=== PATIENT | female | born 1955 | race American Indian/Alaskan Native ===

== ENCOUNTER 2016-09-07 11:46 | Inpatient (IN) | payer MEDICARE ==
--- NOTE | 2016-09-07 12:24 | Emergency Department Report ---
Chief Complaint: Dyspnea/Respdistress Stated Complaint: FEVER/COUGH Time Seen by Provider: 09/07/16 12:14 - HPI History of Present Illness: 61-year-old female presents today with chest pain or shortness of breath 2 days. Positive for fever, MAXIMUM TEMPERATURE 102. Positive for nausea. Also complaining of dizziness. - ROS Review of Systems: Per HPI - Exam Vital Signs: Vital Signs 09/07/16 11:57 Temperature 98.3 F Pulse Rate 96 H Respiratory 20 Rate Blood Pressure 134/102 O2 Sat by Pulse 100 Oximetry Physical Exam: General: 61-year-old female in no acute distress. Well-developed, well- nourished. CV: Regular rate and rhythm. Lungs: Clear to auscultation bilaterally. MSE screening note: Focused history and physical exam performed. Due to findings the following was ordered: ED Disposition for MSE Condition: Stable
--- NOTE | 2016-09-07 12:45 | XRay Report ---
CHEST 2 VIEWS INDICATION: Dyspnea. COMPARISON: 08/19/2016 FINDINGS: PA and lateral chest radiographs demonstrate interval left upper extremity PICC removal. Stable cardiomediastinal silhouette, mild aortic knob calcifications and demineralized bones. Slight horizontal right mid lung atelectasis or fluid along the fissure now noted. No large pleural effusions or CHF. CONCLUSION: No significant acute chest process with interval left upper extremity PICC removal, as described. Thank you for the opportunity to participate in this patient's care.
[2016-09-07 13:37] LABS: Blood Urea Nitrogen 7 mg/dL (7-17); Calcium 9.1 mg/dL (8.4-10.2); Carbon Dioxide 20 mmol/L (22-30); Chloride 105.3 mmol/L (98-107); Glucose 126 mg/dL (65-100); Lipase 27 units/L (13-60); Sodium 139 mmol/L (137-145)
[2016-09-07 13:39] LABS: Anion Gap 18 mmol/L; Creatine Kinase MB 1.1 ng/mL (0.0-4.0)
[2016-09-07 13:40] LABS: Creatine Kinase 73 units/L (30-135)
[2016-09-07 13:47] LABS: Eosinophils % (Auto) 2.3 % (0.0-4.3); Hematocrit 34.9 % (30.3-42.9); Hemoglobin 11.1 gm/dl (10.1-14.3); Mean Corpuscular HGB Conc 32 % (30-34); Mean Corpuscular Hemoglobin 32 pg (28-32); Mean Corpuscular Volume 101 fl (79-97); Platelet Count 232 K/mm3 (140-440); Red Blood Count 3.48 M/mm3 (3.65-5.03); Red Cell Distribution Width 16.5 % (13.2-15.2); White Blood Count 3.9 K/mm3 (4.5-11.0)
[2016-09-07] MEDS ORDERED: TYLENOL PO ONE (22:20)
[2016-09-07] MEDS ORDERED: ATROVENT IH ONE (22:20)
[2016-09-07] MEDS ORDERED: PROVENTIL IH ONE (22:20)
--- NOTE | 2016-09-07 22:23 | Emergency Department Report ---
ED General Adult HPI - General Chief complaint: Dyspnea/Respdistress Stated complaint: FEVER/COUGH Time Seen by Provider: 09/07/16 12:14 Source: patient, EMS Mode of arrival: Ambulatory Limitations: Physical Limitation - History of Present Illness Initial comments: This is a 61-year-old female, whom I have evaluated in the past. Was recently admitted to the hospital for acute febrile illness. Had an extensive workup. Please see her recent discharge summary. Of note, patient had a PICC line which had subsequently been removed. She was continued on daptomycin until 09/03/2016. She is brought to the hospital by EMS. Patient complained of fever, cough for 24 hours. Also complained of pain upon inspiration. To me he also complains of abdominal pain, nausea, vomiting and diarrhea. Symptoms have been constant. They have no exacerbating or relieving factors. -: Gradual, days(s) Location: chest, abdomen Severity scale (0 -10): 8 Quality: aching Consistency: constant Improves with: none Worsens with: none Associated Symptoms: chest pain, cough, diaphoresis, fever/chills, loss of appetite, shortness of breath, weakness - Related Data Home Medications Medication Instructions Recorded Confirmed Last Taken Albuterol Sulfate [Albuterol 0.63% 3 ml IH BID 08/10/16 09/07/16 Unknown NEBS] Furosemide [Lasix TAB] 20 mg PO DAILY 08/10/16 09/07/16 Unknown Phenytoin (25 mg/ml) [Dilantin] 300 mg PO QHS 08/10/16 09/07/16 Unknown Raltegravir Potassium [Isentress] 400 mg PO BID 08/10/16 09/07/16 Unknown Lantus VIAL 9 units SQ 09/08/16 Unknown SEROquel 100 mg BID 09/08/16 09/08/16 Unknown Insulin Glargine [Lantus VIAL] 24 units SC HS 09/09/16 09/09/16 Unknown NovoLOG Flexpen 9 units SC DAILY 09/09/16 09/09/16 Unknown Allergies Allergy/AdvReac Type Severity Reaction Status Date / Time ibuprofen [From Motrin] Allergy Shortness Verified 08/10/16 03:25 of Breath shrimp Allergy Shortness Verified 09/07/16 11:57 of Breath tetracycline Allergy Shortness Verified 08/10/16 03:25 of Breath ED Review of Systems ROS: Stated complaint: FEVER/COUGH Other details as noted in HPI Constitutional: fever, malaise Eyes: denies: eye discharge Respiratory: cough, shortness of breath Cardiovascular: dyspnea on exertion Gastrointestinal: abdominal pain Genitourinary: as per HPI Musculoskeletal: back pain Skin: denies: lesions Neurological: weakness Psychiatric: anxiety ED Past Medical Hx - Past Medical History Hx Hypertension: No Hx Heart Attack/AMI: No Hx Congestive Heart Failure: No Hx Diabetes: No Hx Deep Vein Thrombosis: No Hx Pulmonary Embolism: No Hx GERD: No Hx Liver Disease: No Hx Renal Disease: No Hx Sickle Cell Disease: No Hx Arthritis: No Hx Headaches / Migraines: No Hx Seizures: No Hx Kidney Stones: No Hx Psychiatric Treatment: Yes (bipolar disorder; schziphornia) Hx Asthma: Yes Hx COPD: No Hx Tuberculosis: No Hx Dementia: No Hx HIV: Yes Additional medical history: CDIFF - Surgical History Hx Coronary Stent: No Hx Open Heart Surgery: No Hx Pacemaker: No Hx Internal Defibrillator: No Hx Cholecystectomy: No Hx Appendectomy: No Hx Breast Surgery: No Additional Surgical History: hysterectomy; rt arm skin graph - Social History Smoking Status: Never Smoker Substance Use Type: None - Medications Home Medications: Home Medications Medication Instructions Recorded Confirmed Last Taken Type Albuterol Sulfate [Albuterol 0.63% 3 ml IH BID 08/10/16 09/07/16 Unknown History NEBS] Furosemide [Lasix TAB] 20 mg PO DAILY 08/10/16 09/07/16 Unknown History Phenytoin (25 mg/ml) [Dilantin] 300 mg PO QHS 08/10/16 09/07/16 Unknown History Raltegravir Potassium [Isentress] 400 mg PO BID 08/10/16 09/07/16 Unknown History Lantus VIAL 9 units SQ 09/08/16 Unknown History SEROquel 100 mg BID 09/08/16 09/08/16 Unknown History Insulin Glargine [Lantus VIAL] 24 units SC HS 09/09/16 09/09/16 Unknown History NovoLOG Flexpen 9 units SC DAILY 09/09/16 09/09/16 Unknown History ED Physical Exam - General Limitations: Physical Limitation General appearance: alert, in no apparent distress - Head Head exam: Present: atraumatic, normocephalic - Eye Eye exam: Present: normal appearance, EOMI - ENT ENT exam: Present: normal exam, normal orophraynx, mucous membranes moist - Neck Neck exam: Present: normal inspection, full ROM. Absent: tenderness, meningismus - Respiratory Respiratory exam: Present: wheezes, rhonchi. Absent: respiratory distress - Cardiovascular Cardiovascular Exam: Present: regular rate, normal rhythm, normal heart sounds. Absent: bradycardia, tachycardia, irregular rhythm, systolic murmur, diastolic murmur, rubs, gallop - GI/Abdominal GI/Abdominal exam: Present: soft, tenderness, normal bowel sounds. Absent: distended, guarding, rebound, pulsatile mass - Rectal Rectal exam: Present: normal inspection, decreased rectal tone, heme (-) stool, other (escorted by grace Che) - External exam: Present: normal external exam - Extremities Exam Extremities exam: Present: normal inspection, full ROM, normal capillary refill , other (right groin site appears to be clean, without redness, pus, streaking or erythema.). Absent: tenderness, pedal edema, joint swelling, calf tenderness - Back Exam Back exam: Present: normal inspection, full ROM, paraspinal tenderness. Absent : tenderness - Neurological Exam Neurological exam: Present: alert, oriented X3, other (Extraocular movements intact. Tongue midline. No facial droop. Facial sensation intact to light touch in the V1, V2, V3 distribution bilaterally. 5 and 5 strength in 4 extremities.. Sensation is intact to light touch in 4 extremities.). Absent: motor sensory deficit - Psychiatric Psychiatric exam: Present: anxious - Skin Skin exam: Present: warm, dry, intact, normal color. Absent: rash ED Course Vital Signs 09/07/16 09/07/16 09/07/16 11:57 22:06 22:17 Temperature 98.3 F 100.4 F H Pulse Rate 96 H 104 H Pulse Rate [ Bilateral Throughout] Respiratory 20 14 Rate Respiratory Rate [Bilateral Throughout] Blood Pressure 134/102 Blood Pressure 98/67 [Right] O2 Sat by Pulse 100 95 100 Oximetry 09/07/16 09/07/16 09/08/16 23:00 23:30 00:00 Temperature Pulse Rate 93 H 93 H Pulse Rate [ 80 Bilateral Throughout] Respiratory 22 17 Rate Respiratory 16 Rate [Bilateral Throughout] Blood Pressure 79/54 127/79 Blood Pressure [Right] O2 Sat by Pulse 100 Oximetry 09/08/16 09/08/16 09/08/16 00:40 01:16 02:00 Temperature Pulse Rate 91 H Pulse Rate [ 92 H Bilateral Throughout] Respiratory 15 Rate Respiratory 18 Rate [Bilateral Throughout] Blood Pressure 127/79 127/79 Blood Pressure [Right] O2 Sat by Pulse 100 98 Oximetry 09/08/16 09/08/16 09/08/16 03:00 04:02 04:28 Temperature 98.2 F Pulse Rate 99 H 90 90 Pulse Rate [ Bilateral Throughout] Respiratory 18 15 15 Rate Respiratory Rate [Bilateral Throughout] Blood Pressure 127/79 127/79 Blood Pressure 141/78 [Right] O2 Sat by Pulse 96 94 99 Oximetry 09/08/16 04:30 Temperature Pulse Rate Pulse Rate [ Bilateral Throughout] Respiratory 17 Rate Respiratory Rate [Bilateral Throughout] Blood Pressure Blood Pressure [Right] O2 Sat by Pulse 99 Oximetry - Reevaluation(s) Reevaluation #1: 09/07/16 23:44 Differential diagnosis: Viremia, bacteremia, influenza, CHF, acute coronary syndrome, pulmonary embolus, colitis, diverticulitis Assessment and plan: 61-year-old female with cough, fever, abdominal pain. She had an extensive ID workup here recently. Initial cultures were considered contaminants. Source was determined to be unclear. Patient was treated with lineolezid, and discharged with daptomycin, and has had a subsequent removal of the PICC line. Of note, a C. difficile toxin assay was negative. We will obtain CAT scan of the chest, abdomen, pelvis. Cultures, urine cultures will be drawn. She will be loaded empirically with ceftriaxone. Influenza swab is pending. 09/07/16 23:51 Reevaluation #2: 09/08/16 02:[address] scan of chest negative. CT scan of abdomen and pelvis negative. Dr. Denise, the hospital physician, accepts patient. - EJ/Peripheral Line Neck L Time Out Performed: Yes Indications: nurses unable to establis Skin Cleansed in Sterile Fashion: Yes Size: 20 Dressing Placed: Tegaderm Patient Tolerated Procedure: well ED Medical Decision Making - Lab Data Result diagrams: 09/09/16 07:51 09/09/16 09:34 Vital Signs 09/07/16 09/07/16 11:57 22:17 Temperature 98.3 F 100.4 F H Pulse Rate 96 H 104 H Respiratory 20 14 Rate Blood Pressure 134/102 Blood Pressure 98/67 [Right] O2 Sat by Pulse 100 100 Oximetry Lab Results 09/07/16 09/07/16 09/07/16 Range/Units 12:57 12:57 12:57 WBC 3.9 L (4.5-11.0) K/mm3 RBC 3.48 L (3.65-5.03) M/mm3 Hgb 11.1 (10.1-14.3) gm/dl Hct 34.9 (30.3-42.9) % MCV 101 H (79-97) fl MCH 32 (28-32) pg MCHC 32 (30-34) % RDW 16.5 H (13.2-15.2) % Plt Count 232 (140-440) K/mm3 Lymph % (Auto) 47.3 H (13.4-35.0) % Hopkins % (Auto) 8.7 H (0.0-7.3) % Eos % (Auto) 2.3 (0.0-4.3) % Baso % (Auto) 1.0 (0.0-1.8) % Lymph # 1.9 (1.2-5.4) K/mm3 Hopkins # 0.3 (0.0-0.8) K/mm3 Eos # 0.1 (0.0-0.4) K/mm3 Baso # 0.0 (0.0-0.1) K/mm3 Seg Neutrophils % 40.7 (40.0-70.0) % Seg Neutrophils # 1.6 L (1.8-7.7) K/mm3 PT (12.2-14.9) Sec. INR (0.87-1.13) Sodium 139 (137-145) mmol/L Potassium 4.0 (3.6-5.0) mmol/L Chloride 105.3 (98-107) mmol/L Carbon Dioxide 20 L (22-30) mmol/L Anion Gap 18 mmol/L BUN 7 (7-17) mg/dL Creatinine 0.7 (0.7-1.2) mg/dL Estimated GFR > 60 ml/min BUN/Creatinine Ratio 10.00 % Glucose 126 H (65-100) mg/dL Lactic Acid (0.7-2.0) mmol/L Calcium 9.1 (8.4-10.2) mg/dL Total Creatine Kinase 73 (30-135) units/L CK-MB (CK-2) 1.1 (0.0-4.0) ng/mL CK-MB (CK-2) Rel Index 1.5 (0-4) Troponin T < 0.010 (0.00-0.029) ng/mL NT-Pro-B Natriuret Pep (0-900) pg/mL Lipase 27 (13-60) units/L Urine Color (Yellow) Urine Turbidity (Clear) Urine pH (5.0-7.0) Ur Specific Addison (1.003-1.030) Urine Protein (Negative) mg/dL Urine Glucose (UA) (Negative) mg/dL Urine Ketones (Negative) mg/dL Urine Blood (Negative) Urine Nitrite (Negative) Urine Bilirubin (Negative) Urine Urobilinogen (<2.0) mg/dL Ur Leukocyte Esterase (Negative) Urine WBC (Auto) (0.0-6.0) /HPF Urine RBC (Auto) (0.0-6.0) /HPF U Epithel Cells (Auto) (0-13.0) /HPF Urine Bacteria (Auto) (Negative) /HPF Urine Mucus /HPF Urine Opiates Screen Urine Methadone Screen Ur Barbiturates Screen Ur Phencyclidine Scrn Ur Amphetamines Screen U Benzodiazepines Scrn Urine Cocaine Screen U Marijuana (THC) Screen Drugs of Abuse Note 09/07/16 09/07/16 09/07/16 Range/Units 22:20 22:20 22:38 WBC (4.5-11.0) K/mm3 RBC (3.65-5.03) M/mm3 Hgb (10.1-14.3) gm/dl Hct (30.3-42.9) % MCV (79-97) fl MCH (28-32) pg MCHC (30-34) % RDW (13.2-15.2) % Plt Count (140-440) K/mm3 Lymph % (Auto) (13.4-35.0) % Hopkins % (Auto) (0.0-7.3) % Eos % (Auto) (0.0-4.3) % Baso % (Auto) (0.0-1.8) % Lymph # (1.2-5.4) K/mm3 Hopkins # (0.0-0.8) K/mm3 Eos # (0.0-0.4) K/mm3 Baso # (0.0-0.1) K/mm3 Seg Neutrophils % (40.0-70.0) % Seg Neutrophils # (1.8-7.7) K/mm3 PT 13.8 (12.2-14.9) Sec. INR 1.07 (0.87-1.13) Sodium (137-145) mmol/L Potassium (3.6-5.0) mmol/L Chloride (98-107) mmol/L Carbon Dioxide (22-30) mmol/L Anion Gap mmol/L BUN (7-17) mg/dL Creatinine (0.7-1.2) mg/dL Estimated GFR ml/min BUN/Creatinine Ratio % Glucose (65-100) mg/dL Lactic Acid (0.7-2.0) mmol/L Calcium (8.4-10.2) mg/dL Total Creatine Kinase (30-135) units/L CK-MB (CK-2) (0.0-4.0) ng/mL CK-MB (CK-2) Rel Index (0-4) Troponin T (0.00-0.029) ng/mL NT-Pro-B Natriuret Pep (0-900) pg/mL Lipase (13-60) units/L Urine Color Yellow (Yellow) Urine Turbidity Slightly-cloudy (Clear) Urine pH 5.0 (5.0-7.0) Ur Specific Addison 1.024 (1.003-1.030) Urine Protein 30 mg/dl (Negative) mg/dL Urine Glucose (UA) 50 (Negative) mg/dL Urine Ketones Tr (Negative) mg/dL Urine Blood Sm (Negative) Urine Nitrite Neg (Negative) Urine Bilirubin Neg (Negative) Urine Urobilinogen < 2.0 (<2.0) mg/dL Ur Leukocyte Esterase Lg (Negative) Urine WBC (Auto) 15.0 H (0.0-6.0) /HPF Urine RBC (Auto) 19.0 (0.0-6.0) /HPF U Epithel Cells (Auto) 18.0 H (0-13.0) /HPF Urine Bacteria (Auto) 1+ (Negative) /HPF Urine Mucus 3+ /HPF Urine Opiates Screen Presumptive negative Urine Methadone Screen Presumptive negative Ur Barbiturates Screen Presumptive negative Ur Phencyclidine Scrn Presumptive negative Ur Amphetamines Screen Presumptive negative U Benzodiazepines Scrn Presumptive negative Urine Cocaine Screen Presumptive negative U Marijuana (THC) Screen Presumptive negative Drugs of Abuse Note Disclamer 09/07/16 09/07/16 Range/Units 22:38 22:38 WBC (4.5-11.0) K/mm3 RBC (3.65-5.03) M/mm3 Hgb (10.1-14.3) gm/dl Hct (30.3-42.9) % MCV (79-97) fl MCH (28-32) pg MCHC (30-34) % RDW (13.2-15.2) % Plt Count (140-440) K/mm3 Lymph % (Auto) (13.4-35.0) % Hopkins % (Auto) (0.0-7.3) % Eos % (Auto) (0.0-4.3) % Baso % (Auto) (0.0-1.8) % Lymph # (1.2-5.4) K/mm3 Hopkins # (0.0-0.8) K/mm3 Eos # (0.0-0.4) K/mm3 Baso # (0.0-0.1) K/mm3 Seg Neutrophils % (40.0-70.0) % Seg Neutrophils # (1.8-7.7) K/mm3 PT (12.2-14.9) Sec. INR (0.87-1.13) Sodium (137-145) mmol/L Potassium (3.6-5.0) mmol/L Chloride (98-107) mmol/L Carbon Dioxide (22-30) mmol/L Anion Gap mmol/L BUN (7-17) mg/dL Creatinine (0.7-1.2) mg/dL Estimated GFR ml/min BUN/Creatinine Ratio % Glucose (65-100) mg/dL Lactic Acid 1.0 (0.7-2.0) mmol/L Calcium (8.4-10.2) mg/dL Total Creatine Kinase (30-135) units/L CK-MB (CK-2) (0.0-4.0) ng/mL CK-MB (CK-2) Rel Index (0-4) Troponin T (0.00-0.029) ng/mL NT-Pro-B Natriuret Pep 54.21 (0-900) pg/mL Lipase (13-60) units/L Urine Color (Yellow) Urine Turbidity (Clear) Urine pH (5.0-7.0) Ur Specific Addison (1.003-1.030) Urine Protein (Negative) mg/dL Urine Glucose (UA) (Negative) mg/dL Urine Ketones (Negative) mg/dL Urine Blood (Negative) Urine Nitrite (Negative) Urine Bilirubin (Negative) Urine Urobilinogen (<2.0) mg/dL Ur Leukocyte Esterase (Negative) Urine WBC (Auto) (0.0-6.0) /HPF Urine RBC (Auto) (0.0-6.0) /HPF U Epithel Cells (Auto) (0-13.0) /HPF Urine Bacteria (Auto) (Negative) /HPF Urine Mucus /HPF Urine Opiates Screen Urine Methadone Screen Ur Barbiturates Screen Ur Phencyclidine Scrn Ur Amphetamines Screen U Benzodiazepines Scrn Urine Cocaine Screen U Marijuana (THC) Screen Drugs of Abuse Note - EKG Data 09/07/16 23:47 normal sinus, 95 bpm, left axis deviation, borderline left ventricular hypertrophy, unspecific ST of the mallet. Not morphologically consistent with STEMI. Appears essentially unchanged compared to prior EKG. - Radiology Data Radiology results: report reviewed, image reviewed CT scan of the chest with IV contrast negative. CT scan of abdomen and pelvis with IV contrast negative. Critical care attestation.: If time is entered above; I have spent that time in minutes in the direct care of this critically ill patient, excluding procedure time. ED Disposition Clinical Impression: Acute febrile illness, Dyspnea Disposition: OP ADMITTED IP TO THIS HOSP Is pt being admited?: Yes Condition: Good
[2016-09-07 22:31] LABS: Urine Drugs of Abuse Note Disclamer
[2016-09-07 22:43] LABS: Bacteria,Urine 1+ /HPF (Negative); Bilirubin,Urine NEG (Negative); Blood,Urine SM (Negative); Ketones,Urine TR mg/dL (Negative); Leukocyte Esterase,Urine LG (Negative); Mucus,Urine 3+ /HPF; Nitrite,Urine NEG (Negative); Urobilinogen,Urine < 2.0 mg/dL (<2.0)
[2016-09-07 23:02] LABS: INR 1.07 (0.87-1.13)
[2016-09-07] MEDS ORDERED: ROCEPHIN/NS 1 GM/50 ML 50 ML IV ONE (23:51)
[2016-09-07] MEDS ORDERED: NACL ONE (23:51)
--- NOTE | 2016-09-08 00:01 | Admit Criteria Form ---
Admission Criteria Documentation: FEBRILE ILLNESS, WITHOUT FOCAL INFECTION Clinical Indications for Admission to Inpatient Care (Place 'X' for any and all applicable criteria): Admission is indicated for ANY ONE of the following (1)(2)(3): [ ] I. Bacteremia [ ]II. Suspected or identified specific infection requiring hospitalization (eg, meningitis, endocarditis) [ ]III. Hemodynamic instability [ ]IV. Altered mental status [ ]V. Failure or unavailability of outpatient antimicrobial treatment [ ]. Hypoxemia [ ]VII. Seizures [ ]VIII. High-risk febrile neutropenia [ ]IX. Need for parenteral antibiotic in patient who is likely to abuse vascular access device (eg, injection drug user) [A](7) [ ]X. Temperature greater than 104.9 degrees F (40.5 degrees C) (oral) [ X]XI. Inpatient admission required rather than observation care because of ANY ONE of the following: [ ]a) Specific infection identified that is too severe for outpatient treatment or observation care trial [ ]b) Metabolic disorder (eg, hypoglycemia, hyperglycemia, metabolic acidosis) that is severe or persistent [ ]c) Temperature greater than 103.1 degrees F (39.5 degrees C) ( oral) that is not responsive to observation care treatment [ ]d) IV fluid to replace significant ongoing (eg, for over 24 hours) losses (> 3 L/m2 per day) [ ]e) Supplemental oxygen or respiratory treatments for over 24 hours that is performable only in acute inpatient setting [ ]f) Parenteral nutrition regimen need that must be implemented on inpatient basis [ ]g) Strict or protective (eg, laminar flow) isolation [ X]h) Other condition, treatment or monitoring requiring inpatient admission Extended stay beyond goal length of stay may be needed for(1)(3) [ ]a) Sepsis or septic shock(22) [ ]b) Positive blood cultures [ ]c) Insufficient oral intake [ ]d) High-risk febrile neutropenia(29)(30) [ ]e) Continued fever and clinical instability [ ]f) Clinically active comorbid illness (e.g,heart failure, renal failure , diabetes) The original [facility] content created by [facility] [employer] has been revised. The portions of the content which have been revised are identified through the use of italic text or in bold, and [facility] [employer] has neither reviewed nor approved the modified material. All other unmodified content is copyright [facility]. Please see references footnoted in the original [facility] edition 2016 Admission Criteria Met: Yes
--- NOTE | 2016-09-08 02:29 | Cat Scan Report ---
FINAL REPORT PROCEDURE: CT ANGIO CHEST TECHNIQUE: Computerized tomographic angiography of the chest was performed after the IV injection of iodinated nonionic contrast including image processing. The image data was postprocessed using 2-dimensional multiplanar reformatted (MPR) and 3-dimensional (MIP and/or volume rendered) techniques. HISTORY: cough sob COMPARISON: No prior studies are available for comparison. FINDINGS: Heart and pericardium: Normal. Thoracic aorta: There is no thoracic aortic aneurysm or dissection.. Pulmonary vasculature: There is no pulmonary embolism.. Lymph nodes: No enlarged thoracic lymph nodes. Lungs: The lungs are clear. There are no infiltrates.. Pleural space: No effusion, thickening, or pneumothorax. Musculoskeletal structures: No significant abnormality. Upper abdominal structures: No significant abnormality. IMPRESSION: There is no thoracic aortic aneurysm or dissection.. There is no pulmonary embolism.. The lungs are clear. There are no infiltrates..
--- NOTE | 2016-09-08 02:32 | Cat Scan Report ---
FINAL REPORT PROCEDURE: CT ABDOMEN PELVIS W CON TECHNIQUE: Computerized axial tomography of the abdomen and pelvis was performed after the IV injection of iodinated nonionic contrast. HISTORY: abd pain COMPARISON: No prior studies are available for comparison. FINDINGS: Visualized lower thorax: No significant abnormality. Liver: Normal size and attenuation. Spleen: Normal size and attenuation. Gallbladder and biliary system: Normal. Pancreas: Normal. Adrenals: Normal. Kidneys: Normal. GI tract: There is a hiatal hernia. There is thickening of the stomach antrum which could be due to mild gastritis. There is no mass or obstruction. There is no bowel obstruction, colitis or enteritis. The appendix is normal.. Lymph nodes and mesentery: Normal. Vasculature: There is an IVC filter.. Bladder: Normal. Reproductive organs: There has been a hysterectomy. Peritoneum: There is no ascites or free air, abscess or adenopathy.. Musculoskeletal structures: No significant abnormality. Other: None. IMPRESSION: There is a hiatal hernia. There is thickening of the stomach antrum which could be due to mild gastritis. There is no mass or obstruction. There is no bowel obstruction, colitis or enteritis. The appendix is normal.. There is an IVC filter.. There has been a hysterectomy. There is no ascites or free air, abscess or adenopathy..
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
[2016-09-08] MEDS ORDERED: MILK OF MAGNESIA PO PRN (03:33)
[2016-09-08] MEDS ORDERED: DULCOLAX PR PRN (03:33)
[2016-09-08] MEDS ORDERED: LEVAQUIN 500MG/100ML 100 ML IV SCH (03:33)
[2016-09-08] MEDS ORDERED: LEVAQUIN 500MG/100ML 100 ML IV ONE (04:36)
[2016-09-08] MEDS: NACL 0.9% 1000 ML 1,000 ML IV SCH ×2 (06:00→22:55)
[2016-09-08] MEDS: FLAGYL 500 MG/100 ML 100 ML IV SCH ×2 (06:00→13:45)
[2016-09-08] MEDS ORDERED: ZOFRAN ONE (06:54)
--- NOTE | 2016-09-08 07:24 | XRay Report ---
AP CHEST: HISTORY: Dyspnea AP view of the chest demonstrates a normal mediastinal and cardiac contour with clear lungs and normal bony and soft tissue structures. IMPRESSION: No acute cardiopulmonary process. No significant change since the exam earlier today at 1238 hrs.
[2016-09-08] MEDS: LOVENOX SUB-Q SCH (10:02)
[2016-09-08 10:12] LABS: Creatine Kinase MB 1.1 ng/mL (0.0-4.0)
[2016-09-08 10:14] LABS: Creatine Kinase 64 units/L (30-135)
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
--- NOTE | 2016-09-08 17:30 | Gastroenterology Consultation ---
History of Present Illness - Reason for Consult Consult date: 09/08/16 Abd pain/diarrhea Requesting physician: JOSE D GLEASON - History of Present Illness Asked to see this 61yo woman with hx of HIV, for evaluation of abdominal discomfort, fever and diarrhea. I evaluated her for similar complaints in 2015 and opted for conservative mgmt at that time. CT A/P done revealed a hiatus hernia, but no bowel abnormalities. Abx have been stopped by ID. Currently, the pt describes mushy stools, not watery. No fevers here. No nausea/vomiting. Pt resides in psych facility. No CP/SOB. Past History Past Medical History: HIV/AIDS, seizures, other (asthma) Past Surgical History: No surgical history Social history: no significant social history Family history: no significant family history Medications and Allergies Allergies Allergy/AdvReac Type Severity Reaction Status Date / Time ibuprofen [From Motrin] Allergy Shortness Verified 08/10/16 03:25 of Breath shrimp Allergy Shortness Verified 09/07/16 11:57 of Breath tetracycline Allergy Shortness Verified 08/10/16 03:25 of Breath Home Medications Medication Instructions Recorded Confirmed Last Taken Type Albuterol Sulfate [Albuterol 0.63% 3 ml IH BID 08/10/16 09/07/16 Unknown History NEBS] Furosemide [Lasix TAB] 20 mg PO DAILY 08/10/16 09/07/16 Unknown History Phenytoin (25 mg/ml) [Dilantin] 300 mg PO QHS 08/10/16 09/07/16 Unknown History Raltegravir Potassium [Isentress] 400 mg PO BID 08/10/16 09/07/16 Unknown History Lantus VIAL 9 units SQ 09/08/16 Unknown History SEROquel 100 mg BID 09/08/16 09/08/16 Unknown History Active Meds: Active Medications Acetaminophen (Tylenol) 650 mg PO Q4H PRN PRN Reason: Pain MILD(1-3)/Fever >100.5/MOYER Acetaminophen/Hydrocodone Bitart (Dugger 5/325) 2 each PO Q6H PRN PRN Reason: Pain, Moderate (4-6) Albuterol (Proventil) 2.5 mg IH BIDRT [facility] Bisacodyl (Dulcolax) 10 mg [place] QDAY PRN PRN Reason: Constipation unrelieved by MOM Emtricitabine (Emtriva) 200 mg PO QDAY [facility] Enoxaparin Sodium (Lovenox) 40 mg SUB-Q QDAY [facility] Last Admin: 09/08/16 10:02 Dose: 40 mg Sodium Chloride (Nacl 0.9% 1000 Ml) 1,000 mls @ 75 mls/hr IV DIRECT [facility] Last Admin: 09/08/16 06:00 Dose: 75 mls/hr Magnesium Hydroxide (Milk Of Magnesia) 30 ml PO Q4H PRN PRN Reason: Constipation Morphine Sulfate (Morphine) 2 mg IV Q4H PRN PRN Reason: Pain, Moderate (4-6) Ondansetron HCl (Zofran) 4 mg IV Q8H PRN PRN Reason: N/V unrelieved by Reglan Phenytoin (Dilantin) 300 mg PO QHS [facility] Raltegravir (Isentress) 400 mg PO BID [facility] Tenofovir Disoproxil Fumarate (Viread) 300 mg PO QDAY [facility] Review of Systems - Review of Systems All systems: negative (abd discomfort, fever, loose stools) Exam - Constitutional Vital Signs: Temp Pulse Resp BP Pulse Ox 98 F 98 H 22 142/78 100 09/08/16 16:00 09/08/16 16:00 09/08/16 16:00 09/08/16 16:00 09/08/16 08:40 General appearance: no acute distress - EENT ENT: poor dentition - Neck Neck: supple - Respiratory Respiratory: bilateral: CTA - Cardiovascular Rhythm: regular Heart Sounds: Present: S1 & S2 Extremities: No edema - Gastrointestinal General gastrointestinal: Present: soft, tender (mild tenderness throughout), non-distended, normal bowel sounds - Neurologic Neurological: alert and oriented x3 - Labs CBC & Chem 7: 09/07/16 12:57 09/07/16 12:57 Lab Results: Laboratory Results - last 24 hr 09/08/16 09/08/16 09/08/16 03:51 09:33 09:33 Lactic Acid 1.0 1.2 Total Creatine Kinase 64 CK-MB (CK-2) 1.1 CK-MB (CK-2) Rel Index 1.7 Troponin T < 0.010 - Imaging CT Scan: report reviewed Assessment and Plan 61yo woman with hx of HIV a/w recurrent complaints of abd discomfort, diarrhea and subjective fevers. CT does not demonstrate any clear etiology and she has not had overt watery stools since being here. Rec: 1) Agree with conservative mgmt and supportive measures 2) Check stool for C. diff 3) No plans for colonoscopy at this time Thank you for allowing me to participate in the care of your patient. Please do not hesitate to contact me with any questions.
[2016-09-08] MEDS: PROVENTIL IH SCH ×2 (18:45→22:49)
[2016-09-08] MEDS: VIREAD PO SCH (20:49)
[2016-09-08] MEDS: EMTRIVA PO SCH (20:50)
[2016-09-08] MEDS ORDERED: NON-FORMULARY (Albuterol Sulfate [Albuterol 0.63% Nebs] 3 ML) IH SCH (22:00)
[2016-09-08] MEDS: ISENTRESS PO SCH (22:49)
[2016-09-08] MEDS: DILANTIN PO SCH (22:50)
[2016-09-09] MEDS: BENADRYL IV PRN ×2 (02:00→12:10)
[2016-09-09 08:33] LABS: Eosinophils % (Auto) 2.7 % (0.0-4.3); Hematocrit 32.1 % (30.3-42.9); Hemoglobin 10.6 gm/dl (10.1-14.3); Mean Corpuscular HGB Conc 33 % (30-34); Mean Corpuscular Hemoglobin 32 pg (28-32); Mean Corpuscular Volume 98 fl (79-97); Platelet Count 189 K/mm3 (140-440); Red Blood Count 3.29 M/mm3 (3.65-5.03); Red Cell Distribution Width 16.8 % (13.2-15.2); White Blood Count 3.2 K/mm3 (4.5-11.0)
[2016-09-09 08:35] LABS: Anion Gap TNR mmol/L; BUN/Creatinine Ratio TNR; Blood Urea Nitrogen TNR mg/dL (7-17); Calcium TNR mg/dL (8.4-10.2); Carbon Dioxide TNR mmol/L (22-30); Chloride TNR mmol/L (98-107); Glucose TNR mg/dL (65-100); Potassium TNR mmol/L (3.6-5.0); Sodium TNR mmol/L (137-145)
[2016-09-09] MEDS: PROVENTIL IH SCH ×3 (09:08→21:12)
--- NOTE | 2016-09-09 09:19 | Progress Note ---
Assessment and Plan Olga Ramirez is a 61 y/o woman with HIV infection (CD4 343) , hypertension, type 2 DM, CHF, asthma, and seizure disorder recently discharged from [facility] on daptomycin for a polymicrobial blood stream infection. She is now presenting with similar complaints including abdominal cramps, diarrhea, nausea, vomiting, fever, cough, shortness of breath and weakness. She said her temperature at home was 102 but here in the hospital she is afebrile. Ct scan of chest and abdomen without significant abnormality. Problem list: 1. Clinical picture of abdominal pain, fevers, nausea, vomiting and diarrhea complicating shortness of breath. Imaging study not supporting complaints. It remains unclear of the source of the problem. -abdominal pain is not worse but same as previous admission 2. Leukopenia, possibly related to underlying HIV 3. Diarrhea, stool for cdiff was negative on previous admission in addition she has not had frequent bowel movements here, after talking to her she has had only loose bowel movements. --stool cdiff negative on 09/08/16 --she said she had loose stool 4) HIV, do not know how well control patient is without updated lab work 5. Previously with Polymicrobial blood stream infection, MRSA, Staph epidermidis in one set, the second set with VRE, Staph epidermidis and diptheroids. Repeat blood cultures negative Plan: 1) would hold off antibiotics in this clinically stable, afebrile patient. 2) continue anti-retroviral therapy Truvad( tenofovir, emtriva), isentress 3) follow up cd4 and viral load 4) Patient was informed to let me know when she has a bowel movement to let me see it, would like to confirm the consistency Subjective Date of service: 09/09/16 Interval history: Patient is complaining of wheezing and shortness of breath, she said she has asthma and requesting albuterol Objective - Constitutional Vitals: Vital Signs Temp Pulse Resp BP Pulse Ox 98.4 F 84 20 113/74 100 09/09/16 04:41 09/09/16 04:41 09/09/16 04:41 09/09/16 04:41 09/08/16 20:40 Temperature -Last 24 Hours Temperature 98.4 F Temperature 98.4 F Temperature 98 F General appearance: Present: no acute distress, well-nourished, cachectic - EENT Eyes: PERRL, EOM intact, no scleral icterus, no conjunctival injection ENT: hearing intact, clear oral mucosa Ears: bilateral: normal - Neck Neck: supple, normal ROM - Respiratory Respiratory effort: normal Respiratory: bilateral: wheezing - Breasts Breasts: deferred - Cardiovascular Rhythm: regular Heart Sounds: Present: S1 & S2 Extremities: no ischemia, No edema - Gastrointestinal General gastrointestinal: Present: soft, non-tender, normal bowel sounds Rectal Exam: deferred - Genitourinary Female genitourinary: deferred - Integumentary Integumentary: clear, warm, dry - Musculoskeletal Musculoskeletal: strength equal bilaterally - Neurologic Neurologic: moves all extremities - Psychiatric Psychiatric: appropriate mood/affect, cooperative - Labs CBC & Chem 7: 09/09/16 07:51 09/09/16 07:51 Labs: Abnormal lab results 09/08/16 09/09/16 09/09/16 Range/Units 21:09 06:15 07:51 WBC 3.2 L (4.5-11.0) K/mm3 RBC 3.29 L (3.65-5.03) M/mm3 MCV 98 H D (79-97) fl RDW 16.8 H (13.2-15.2) % Lymph % (Auto) 50.9 H (13.4-35.0) % Weld % (Auto) 9.5 H (0.0-7.3) % Seg Neutrophils % 35.9 L (40.0-70.0) % Seg Neutrophils # 1.2 L (1.8-7.7) K/mm3 POC Glucose 167 H 172 H (70-105)
[2016-09-09 10:12] LABS: Anion Gap 16 mmol/L; Blood Urea Nitrogen 8 mg/dL (7-17); Calcium 8.1 mg/dL (8.4-10.2); Carbon Dioxide 20 mmol/L (22-30); Chloride 110.9 mmol/L (98-107); Glucose 150 mg/dL (65-100); Potassium 3.9 mmol/L (3.6-5.0); Sodium 143 mmol/L (137-145)
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
[2016-09-09] MEDS: VIREAD PO SCH (13:23)
[2016-09-09] MEDS: EMTRIVA PO SCH (13:23)
[2016-09-09] MEDS: ISENTRESS PO SCH (13:23)
[2016-09-09] MEDS: LOVENOX SUB-Q SCH (13:24)
[2016-09-09] MEDS: ROBITUSSIN AC PO PRN (14:05)
--- NOTE | 2016-09-09 15:19 | XRay Report ---
Chest: There is a left PICC line tip in the right atrium. The heart is slightly enlarged with tortuous aorta. No vascular congestion and clear lungs. The cardiopulmonary pattern is unchanged. T. September 07, 2016.
[2016-09-09] MEDS: ZOFRAN IV PRN (18:33)
[2016-09-09] MEDS: TYLENOL PO PRN (21:09)
[2016-09-09] MEDS: MORPHINE IV PRN (23:15)
[2016-09-10] MEDS: BENADRYL IV PRN ×2 (00:27→18:11)
[2016-09-10] MEDS: ISENTRESS PO SCH ×3 (00:27→23:00)
[2016-09-10] MEDS: DILANTIN PO SCH ×2 (00:27→23:00)
[2016-09-10] MEDS: ROBITUSSIN AC PO PRN ×2 (00:28→15:08)
[2016-09-10] MEDS: NORCO 5/325 PO PRN (04:00)
[2016-09-10] MEDS: TYLENOL PO PRN ×2 (05:42→14:19)
[2016-09-10] MEDS: NACL 0.9% 1000 ML 1,000 ML IV SCH (08:01)
[2016-09-10] MEDS: PROVENTIL IH SCH ×2 (08:21→21:59)
[2016-09-10] MEDS ORDERED: LEXISCAN IV ONE ×2 (09:53→09:56)
--- NOTE | 2016-09-10 10:14 | Progress Note ---
Assessment and Plan Antibiotics: none Previous Antibiotics: 1) metronidazole (09/08-09/08 2) levaquin 09/08-09/08 Olga Ramirez is a 61 y/o woman with HIV infection (CD4 343) , hypertension, type 2 DM, CHF, asthma, and seizure disorder recently discharged from [facility] on daptomycin for a polymicrobial blood stream infection. She is now presenting with similar complaints including abdominal cramps, diarrhea, nausea, vomiting, fever, cough, shortness of breath and weakness. She said her temperature at home was 102 but here in the hospital she is afebrile. Ct scan of chest and abdomen without significant abnormality. Problem list: 1. Clinical picture of abdominal pain, fevers, nausea, vomiting, diarrhea and shortness of breath. Imaging study not supporting complaints. It remains unclear of the source of the problem. -abdominal pain is not worse but same as previous admission --stool cdiff and culture negative --CT of chest without abnormalities, Ct scan of abdomen without bowel pathology -patient is now reporting loose stool, but she said it is better today. 2. Leukopenia, possibly related to underlying HIV 3. Diarrhea, stool for cdiff was negative on previous admission in addition she has not had frequent bowel movements here, after talking to her she has had only loose bowel movements. --stool cdiff negative on 09/08/16 --she said she had loose stool -only abnormality on CT scan is thickened stomach antrum 4) HIV, do not know how well control patient is without updated lab work, --CD4 and viral load ordered - continue anti-retroviral therapy 5. Previously with Polymicrobial blood stream infection, MRSA, Staph epidermidis in one set, the second set with VRE, Staph epidermidis and diptheroids. Repeat blood cultures negative -she was treated empirically on last hospitalization 6) fevers, unclear source, blood cultures negative, CT scan of chest and abdomen without abnormalities. --remains unclear of the source, no positive cultures but patient does have a cough and wheezing without pulmonary infiltrates. --temperature high of 103 7) leukopenia, wbc is 3.2 with ANC of 1.2, if this goes below 1.0 (1000) will need to place patient on neutropenic precaution Plan: 1) obtain blood cultures from picc line 2) continue anti-retroviral therapy Truvad( tenofovir, emtriva), isentress 3) follow up cd4 and viral load 4) start zosyn 4.5 gm iv Q8H 5) Neb treatment now 6) contact isolation for MRSA history Subjective Date of service: 09/10/16 Interval history: Patient is complaining of fevers, cough and wheezing. Objective - Constitutional Vitals: Selected Entries 08/20/16 09/08/16 09/09/16 07:51 08:40 04:41 Temperature 98.4 F Pulse Rate [ 84 Right Radial] Respiratory 20 Rate Blood Pressure 107/61 113/74 [Right Arm] Blood Pressure 97 87 Mean [Right Arm ] 09/09/16 09/10/16 09/10/16 23:00 04:00 04:59 Temperature 101.2 F H 103 F H Pulse Rate [ 112 H Right Radial] Respiratory Rate Blood Pressure 118/77 [Right Arm] Blood Pressure 90 Mean [Right Arm ] 09/10/16 05:42 Temperature Pulse Rate [ Right Radial] Respiratory 22 Rate Blood Pressure [Right Arm] Blood Pressure Mean [Right Arm ] General appearance: Present: mild distress, well-nourished, obese - EENT Eyes: PERRL, EOM intact, no scleral icterus, no conjunctival injection ENT: hearing intact, clear oral mucosa, poor dentition - Neck Neck: supple, normal ROM, no enlarged thyroid, no masses or JVD - Respiratory Respiratory: bilateral: rales, wheezing - Breasts Breasts: deferred - Cardiovascular Rhythm: regular Heart Sounds: Present: S1 & S2 Extremities: no ischemia, pulses intact - Gastrointestinal General gastrointestinal: Present: soft, non-tender, normal bowel sounds - Genitourinary Female genitourinary: deferred - Integumentary Integumentary: clear, warm, dry, no jaundice, no rash - Musculoskeletal Musculoskeletal: strength equal bilaterally - Neurologic Neurologic: moves all extremities - Psychiatric Psychiatric: appropriate mood/affect, cooperative - Labs CBC & Chem 7: 09/09/16 07:51 09/09/16 09:34 Labs: Microbiology 09/08/16 Unknown Stool Stool for WBCs - Final NEGATIVE 09/07/16 23:44 Nasopharyngeal Swab Influenza Types A,B Antigen (ANIBAL) - Final 09/07/16 22:20 Stool - Stool Aspirate Stool Occult Blood (ANIBAL) - Final 09/08/16 Unknown Stool Stool Culture - Preliminary 09/07/16 22:38 Peripheral/Venous Blood Culture - Preliminary NO GROWTH AFTER 24 HOURS 09/07/16 00:00 Peripheral/Venous Blood Culture - Preliminary NO GROWTH AFTER 24 HOURS 09/07/16 00:00 Peripheral/Venous Blood Culture - Preliminary Culture in Progress Laboratory Tests 09/07/16 09/09/16 09/09/16 22:20 07:51 09:34 WBC 3.2 L MCV 98 H D Plt Count 189 Creatinine 0.8 Estimated GFR > 60 Urine WBC (Auto) 15.0 H U Epithel Cells (Auto) 18.0 H
--- NOTE | 2016-09-10 11:06 | Progress Note ---
Assessment and Plan Assessment and plan: stool studies reviewed, C diff negative, Fecal leukocytes negative 1. Sepsis. continue sepsis pathway. We will follow up blood and urine cultures. ID input appreciated, continue current abx and fup blood cx from . 2. Diarrhea. appears to be acute Gastroenteritis, ID and GI input appreciated 3. HIV/AIDS. . T-cell count 343. Continue medications per day. 4. Chest pain, has now resolved; EKG and serial trops negative, appears to be from GERD, continue PPI, stress test was negative. History Interval history: continues to have watery diarrhea, frequency has reduced Hospitalist Physical - Physical exam Narrative exam: General: Patient appears well in no distress HEENT: MMM, EOMI cardiac: S1-S2 heard lungs: clear to auscultation, abdomen: soft, nontender, nondistended bowel sounds positive extremities: no edema clubbing or cyanosis Skin: no rash or lesion Neuro: no focal deficit Psych: appropriate behavior and mood, cognition intact - Constitutional Vitals: Temp Pulse Resp BP Pulse Ox 103 F H 112 H 22 118/77 98 09/10/16 04:00 09/10/16 04:59 09/10/16 05:42 09/10/16 04:00 09/10/16 04:59 General appearance: Present: no acute distress, well-nourished, cachectic Results - Labs CBC & Chem 7: 09/09/16 07:51 09/09/16 09:34 Labs: Laboratory Last Values WBC 3.2 K/mm3 (4.5-11.0) L 09/09/16 07:51 RBC 3.29 M/mm3 (3.65-5.03) L 09/09/16 07:51 Hgb 10.6 gm/dl (10.1-14.3) 09/09/16 07:51 Hct 32.1 % (30.3-42.9) 09/09/16 07:51 MCV 98 fl (79-97) H D 09/09/16 07:51 MCH 32 pg (28-32) 09/09/16 07:51 MCHC 33 % (30-34) 09/09/16 07:51 RDW 16.8 % (13.2-15.2) H 09/09/16 07:51 Plt Count 189 K/mm3 (140-440) 09/09/16 07:51 Lymph % (Auto) 50.9 % (13.4-35.0) H 09/09/16 07:51 [place] % (Auto) 9.5 % (0.0-7.3) H 09/09/16 07:51 Eos % (Auto) 2.7 % (0.0-4.3) 09/09/16 07:51 Baso % (Auto) 1.0 % (0.0-1.8) 09/09/16 07:51 Lymph # 1.6 K/mm3 (1.2-5.4) 09/09/16 07:51 [place] # 0.3 K/mm3 (0.0-0.8) 09/09/16 07:51 Eos # 0.1 K/mm3 (0.0-0.4) 09/09/16 07:51 Baso # 0.0 K/mm3 (0.0-0.1) 09/09/16 07:51 Seg Neutrophils % 35.9 % (40.0-70.0) L 09/09/16 07:51 Seg Neutrophils # 1.2 K/mm3 (1.8-7.7) L 09/09/16 07:51 PT 13.8 Sec. (12.2-14.9) 09/07/16 22:38 INR 1.07 (0.87-1.13) 09/07/16 22:38 Sodium 143 mmol/L (137-145) 09/09/16 09:34 Potassium 3.9 mmol/L (3.6-5.0) 09/09/16 09:34 Chloride 110.9 mmol/L (98-107) H 09/09/16 09:34 Carbon Dioxide 20 mmol/L (22-30) L 09/09/16 09:34 Anion Gap 16 mmol/L 09/09/16 09:34 BUN 8 mg/dL (7-17) 09/09/16 09:34 Creatinine 0.8 mg/dL (0.7-1.2) 09/09/16 09:34 Estimated GFR > 60 ml/min 09/09/16 09:34 BUN/Creatinine Ratio 10.00 % 09/09/16 09:34 Glucose 150 mg/dL (65-100) H 09/09/16 09:34 POC Glucose 141 (70-105) H 09/09/16 21:09 Lactic Acid 1.2 mmol/L (0.7-2.0) 09/08/16 09:33 Calcium 8.1 mg/dL (8.4-10.2) L 09/09/16 09:34 Total Creatine Kinase 64 units/L (30-135) 09/08/16 09:33 CK-MB (CK-2) 1.1 ng/mL (0.0-4.0) 09/08/16 09:33 CK-MB (CK-2) Rel Index 1.7 (0-4) 09/08/16 09:33 Troponin T < 0.010 ng/mL (0.00-0.029) 09/08/16 09:33 NT-Pro-B Natriuret Pep 54.21 pg/mL (0-900) 09/07/16 22:38 Lipase 27 units/L (13-60) 09/07/16 12:57 Urine Color Yellow (Yellow) 09/07/16 22:20 Urine Turbidity Slightly-cloudy (Clear) 09/07/16 22:20 Urine pH 5.0 (5.0-7.0) 09/07/16 22:20 Ur Specific [place] 1.024 (1.003-1.030) 09/07/16 22:20 Urine Protein 30 mg/dl mg/dL (Negative) 09/07/16 22:20 Urine Glucose (UA) 50 mg/dL (Negative) 09/07/16 22:20 Urine Ketones Tr mg/dL (Negative) 09/07/16 22:20 Urine Blood Sm (Negative) 09/07/16 22:20 Urine Nitrite Neg (Negative) 09/07/16 22:20 Urine Bilirubin Neg (Negative) 09/07/16 22:20 Urine Urobilinogen < 2.0 mg/dL (<2.0) 09/07/16 22:20 Ur Leukocyte Esterase Lg (Negative) 09/07/16 22:20 Urine WBC (Auto) 15.0 /HPF (0.0-6.0) H 09/07/16 22:20 Urine RBC (Auto) 19.0 /HPF (0.0-6.0) 09/07/16 22:20 U Epithel Cells (Auto) 18.0 /HPF (0-13.0) H 09/07/16 22:20 Urine Bacteria (Auto) 1+ /HPF (Negative) 09/07/16 22:20 Urine Mucus 3+ /HPF 09/07/16 22:20 Urine Opiates Screen Presumptive negative 09/07/16 22:20 Urine Methadone Screen Presumptive negative 09/07/16 22:20 Ur Barbiturates Screen Presumptive negative 09/07/16 22:20 Ur Phencyclidine Scrn Presumptive negative 09/07/16 22:20 Ur Amphetamines Screen Presumptive negative 09/07/16 22:20 U Benzodiazepines Scrn Presumptive negative 09/07/16 22:20 Urine Cocaine Screen Presumptive negative 09/07/16 22:20 U Marijuana (THC) Screen Presumptive negative 09/07/16 22:20 Drugs of Abuse Note Disclamer 09/07/16 22:20
--- NOTE | 2016-09-10 12:25 | Gastroenterology Progress Note ---
<ALE RUIZ - Last Filed: 09/10/16 14:04> Assessment and Plan 61yo woman with hx of HIV a/w recurrent complaints of abd discomfort, diarrhea and fevers. CT does not demonstrate any clear etiology. She reports 3 episodes of "loose" stool today. She is also being seen by ID. Rec: 1) Agree with conservative mgmt and supportive measures 2) stool for C diff negative, fecal WBC negative, stool culture negative. 3) ID following. Subjective Date of service: 09/10/16 Interval history: Patient remains febrile. State she has had 3 "loose" stools today. Objective - Constitutional Vitals: Temp Pulse Resp BP Pulse Ox 103 F H 112 H 22 118/77 98 09/10/16 04:00 09/10/16 04:59 09/10/16 05:42 09/10/16 04:00 09/10/16 04:59 General appearance: mild distress, other (tremor noted) - EENT Eyes: EOM intact ENT: hearing intact - Cardiovascular Rhythm: other (taachycardia) - Gastrointestinal General gastrointestinal: Present: soft (TTP throughout), tender - Labs CBC & Chem 7: 09/09/16 07:51 09/09/16 09:34 Labs: Laboratory Results - last 24 hr 09/09/16 21:09 POC Glucose 141 H <FABI BETTS - Last Filed: 09/10/16 16:09> Subjective Interval history: GI Attending: I have performed a face to face evaluation on Ms. Ramirez and agree with the above note. Pt spiked temp today; source unclear. Mentions coughing, but CXR yesterday revealed no infiltrates. ID to f/u today. Cont supportive GI measures. No plans for endoscopic procedures at this point. Objective - Constitutional Vitals: Temp Pulse Resp BP Pulse Ox 102.9 F H 114 H 20 130/67 96 09/10/16 12:55 09/10/16 12:55 09/10/16 12:55 09/10/16 12:55 09/10/16 07:40 - Labs CBC & Chem 7: 09/09/16 07:51 09/09/16 09:34 Labs: Laboratory Results - last 24 hr 09/09/16 09/10/16 21:09 12:07 POC Glucose 141 H 187 H
[2016-09-10] MEDS: LOVENOX SUB-Q SCH (14:17)
[2016-09-10] MEDS: EMTRIVA PO SCH (14:18)
[2016-09-10] MEDS: VIREAD PO SCH (14:18)
[2016-09-10] MEDS: ZOFRAN IV PRN ×2 (14:20→21:45)
[2016-09-10] MEDS: DUONEB 0.5 MG-3 MG/3 ML SOLN IH SCH ×2 (17:24→21:15)
[2016-09-10] MEDS ORDERED: VANCOMYCIN VIAL 2,000 MG in NACL 0.9% 500 ML 500 ML IV ONE (18:00)
[2016-09-10] MEDS ORDERED: VANCOMYCIN VIAL 2,000 MG in NACL 0.9% 500 ML 500 ML IV SCH (18:00)
[2016-09-10] MEDS ORDERED: ZOSYN/NS 4.5GM/100ML 100 ML IV SCH (18:00)
[2016-09-10] MEDS ORDERED: VANCOMYCIN PHARMACY TO DOSE IV SCH (18:00)
[2016-09-10] MEDS: DELTASONE PO SCH (18:11)
[2016-09-11] MEDS: TYLENOL PO PRN ×2 (00:45→11:56)
--- NOTE | 2016-09-11 01:13 | Treadmill Report ---
PROCEDURE: Single-isotope dual study myocardial perfusion scan. REFERRING PHYSICIAN: Mahesh Mckay MD DESCRIPTION OF PROCEDURE: The patient received 10 mCi of technetium 99m Myoview intravenously under resting condition. Resting myocardial perfusion scan was done. Subsequently, the patient underwent Lexiscan stress test as per the protocol.During the stress test, patient received 28 mCi of technetium 99m Myoview intravenously.After 30 to 60 minutes, post stress images were done. Computerized reconstruction of images was done. The post-stress test images revealed uniform distribution of the radiopharmaceutical in the left ventricular myocardium. Cinematic display of the gated study did not reveal any wall motion abnormality. The left ventricular ejection fraction was normal and was calculated to be 71%. The resting images were also normal. CONCLUSION: 1. No perfusion abnormality of the left ventricular myocardium was demonstrated in the resting as well as stress images obtained after the patient underwent Lexiscan stress test. 2. No wall motion abnormality. 3. Normal left ventricular ejection fraction of 71%. [facility]# [id number] JAMIN/WENDY SANCHEZ
[2016-09-11] MEDS: BENADRYL IV PRN ×4 (06:23→21:47)
[2016-09-11] MEDS: ZOFRAN IV PRN ×2 (06:24→14:28)
[2016-09-11] MEDS: DUONEB 0.5 MG-3 MG/3 ML SOLN IH SCH ×4 (08:10→22:25)
--- NOTE | 2016-09-11 08:30 | Gastroenterology Progress Note ---
Assessment and Plan 1) Abdominal pain 2) Loose BM's 3) Fevers -Pt started on Zosyn yesterday -No further GI w/u planned at this time Please re-call with questions. Thank you! Subjective Date of service: 09/11/16 Principal diagnosis: Abd pain, loose BM's, fever Interval history: Pt seen/examined today. More audible wheezing today. No other acute overnight events. Objective - Constitutional Vitals: Temp Pulse Resp BP Pulse Ox 98.9 F 93 H 20 130/70 98 09/11/16 04:05 09/11/16 04:05 09/11/16 04:05 09/11/16 04:05 09/11/16 04:05 General appearance: no acute distress - Neck Neck: supple - Respiratory Respiratory: bilateral: wheezing - Cardiovascular Rhythm: regular Heart Sounds: Present: S1 & S2 - Extremities Extremities: No edema - Gastrointestinal General gastrointestinal: Present: soft, tender, non-distended, normal bowel sounds - Labs CBC & Chem 7: 09/09/16 07:51 09/09/16 09:34 Labs: Laboratory Results - last 24 hr 09/10/16 09/10/16 09/11/16 12:07 17:10 06:31 POC Glucose 187 H 153 H 109 H
[2016-09-11] MEDS: LOVENOX SUB-Q SCH (10:48)
[2016-09-11] MEDS: DELTASONE PO SCH (10:49)
[2016-09-11] MEDS: EMTRIVA PO SCH (10:49)
[2016-09-11] MEDS: VIREAD PO SCH (10:49)
[2016-09-11] MEDS: ISENTRESS PO SCH ×2 (10:50→21:47)
[2016-09-11] MEDS: ROBITUSSIN AC PO PRN ×2 (10:57→17:56)
[2016-09-11] MEDS: PROVENTIL IH SCH (11:34)
[2016-09-11] MEDS ORDERED: CATHFLO IV ONE ×2 (11:40→15:00)
--- NOTE | 2016-09-11 12:22 | Progress Note ---
Assessment and Plan Current antibiotics: Zosyn 4.5 g IV q8h 09/10 --> Previous Antibiotics: Metronidazole 09/08 Levaquin 09/08 ASSESSMENT: Olga Ramirez is a 61 y/o woman with HIV infection (CD4 343) , hypertension, type 2 DM, CHF, asthma, and seizure disorder recently discharged from [facility] on daptomycin for a polymicrobial blood stream infection. She is now presenting with similar complaints including abdominal cramps, diarrhea, nausea, vomiting, fever, cough, shortness of breath and weakness. She said her temperature at home was 102 but here in the hospital she is afebrile. Problem list: 1. Clinical picture of abdominal pain, fevers, nausea, vomiting, diarrhea and shortness of breath. -abdominal pain is not worse but same as previous admission -stool cdiff and culture negative -CT of chest without abnormalities, CT scan of abdomen without bowel pathology -patient is now reporting loose stool, but she said it is better today. 2. Leukopenia -Suspect related to underlying HIV 3. Compaints of diarrhea -None substantiated -Stool cdiff negative on 09/08/16 4. HIV -CD4 and viral load pending -On anti-retroviral therapy 5. Status post polymicrobial blood stream infection -MRSA & Staph epidermidis in one set -The second set with VRE, Staph epidermidis and diptheroids -Repeat blood cultures negative -Finished course of antibiotics 6. Fevers -Unclear source -Blood cultures negative, CT scan of chest and abdomen without abnormalities. Temperature high of 103 on 09/10. Afebrile so far today 7. Leukopenia -WBC 3.2 with ANC of 1.2 PLAN: 1. Await results of 09/10 blood cultures 2. Continue anti-retroviral therapy Truvada( tenofovir, emtriva) and Isentress 3.Await results of CD4 and HIV viral load 4. Continue Zosyn 4.5 grams IV q8h pending repeat culture results 6. Continue contact isolation for MRSA history Loco Jain MD [facility] Office: [phone] Subjective Date of service: 09/11/16 Principal diagnosis: Abd pain, loose BM's, fever Objective - Constitutional Vitals: Vital Signs Temp Pulse Resp BP Pulse Ox 99.1 F 80 20 110/66 100 09/11/16 07:15 09/11/16 08:20 09/11/16 08:20 09/11/16 07:15 09/11/16 07:15 Temperature -Last 24 Hours Temperature 99.1 F Temperature 98.9 F Temperature 100.6 F Temperature 102.9 F - Labs CBC & Chem 7: 09/09/16 07:51 09/09/16 09:34 Labs: Abnormal lab results Microbiology 09/10/16 07:55 Peripheral/Venous Blood Culture - Preliminary Culture in Progress 09/10/16 19:00 Peripheral/Venous Blood Culture - Preliminary Culture in Progress 09/07/16 22:38 Peripheral/Venous Blood Culture - Preliminary NO GROWTH AFTER 72 HOURS 09/07/16 00:00 Peripheral/Venous Blood Culture - Preliminary NO GROWTH AFTER 72 HOURS 09/08/16 Unknown Stool Stool Culture - No enteric pathogens 09/08/16 Unknown Stool C. difficile DNA Amplification - Negative 09/08/16 Unknown Stool Stool for WBCs - Final NEGATIVE 09/07/16 23:44 Nasopharyngeal Swab Influenza Types A,B Antigen (ANIBAL) - Negative Imagin/18: CXR: No acute infiltrates
[2016-09-11] MEDS: NACL 0.9% 1000 ML 1,000 ML IV SCH (13:07)
[2016-09-11] MEDS: ZOSYN/NS 4.5GM/100ML 100 ML IV SCH ×2 (13:08→18:52)
--- NOTE | 2016-09-11 13:59 | Progress Note ---
Assessment and Plan Assessment and plan: stool studies reviewed, C diff negative, Fecal leukocytes negative 1. Sepsis. continue sepsis pathway. We will follow up blood and urine cultures. ID input appreciated, continue current abx and fup blood cx from . 2. Diarrhea. appears to be acute Gastroenteritis, ID and GI input appreciated 3. HIV/AIDS. . T-cell count 343. Continue medications per day. 4. Chest pain, has now resolved; EKG and serial trops negative, appears to be from GERD, continue PPI, stress test was negative. History Interval history: continues to have watery diarrhea, frequency has reduced Hospitalist Physical - Physical exam Narrative exam: General: Patient appears well in no distress HEENT: MMM, EOMI cardiac: S1-S2 heard lungs: clear to auscultation, abdomen: soft, nontender, nondistended bowel sounds positive extremities: no edema clubbing or cyanosis Skin: no rash or lesion Neuro: no focal deficit Psych: appropriate behavior and mood, cognition intact - Constitutional Vitals: Temp Pulse Resp BP Pulse Ox 99.1 F 129 H 20 110/66 100 09/11/16 07:15 09/11/16 12:38 09/11/16 12:38 09/11/16 07:15 09/11/16 07:15 General appearance: Present: no acute distress, well-nourished, cachectic Results - Labs CBC & Chem 7: 09/09/16 07:51 09/09/16 09:34 Labs: Laboratory Last Values WBC 3.2 K/mm3 (4.5-11.0) L 09/09/16 07:51 RBC 3.29 M/mm3 (3.65-5.03) L 09/09/16 07:51 Hgb 10.6 gm/dl (10.1-14.3) 09/09/16 07:51 Hct 32.1 % (30.3-42.9) 09/09/16 07:51 MCV 98 fl (79-97) H D 09/09/16 07:51 MCH 32 pg (28-32) 09/09/16 07:51 MCHC 33 % (30-34) 09/09/16 07:51 RDW 16.8 % (13.2-15.2) H 09/09/16 07:51 Plt Count 189 K/mm3 (140-440) 09/09/16 07:51 Lymph % (Auto) 50.9 % (13.4-35.0) H 09/09/16 07:51 [place] % (Auto) 9.5 % (0.0-7.3) H 09/09/16 07:51 Eos % (Auto) 2.7 % (0.0-4.3) 09/09/16 07:51 Baso % (Auto) 1.0 % (0.0-1.8) 09/09/16 07:51 Lymph # 1.6 K/mm3 (1.2-5.4) 09/09/16 07:51 [place] # 0.3 K/mm3 (0.0-0.8) 09/09/16 07:51 Eos # 0.1 K/mm3 (0.0-0.4) 09/09/16 07:51 Baso # 0.0 K/mm3 (0.0-0.1) 09/09/16 07:51 Seg Neutrophils % 35.9 % (40.0-70.0) L 09/09/16 07:51 Seg Neutrophils # 1.2 K/mm3 (1.8-7.7) L 09/09/16 07:51 PT 13.8 Sec. (12.2-14.9) 09/07/16 22:38 INR 1.07 (0.87-1.13) 09/07/16 22:38 Sodium 143 mmol/L (137-145) 09/09/16 09:34 Potassium 3.9 mmol/L (3.6-5.0) 09/09/16 09:34 Chloride 110.9 mmol/L (98-107) H 09/09/16 09:34 Carbon Dioxide 20 mmol/L (22-30) L 09/09/16 09:34 Anion Gap 16 mmol/L 09/09/16 09:34 BUN 8 mg/dL (7-17) 09/09/16 09:34 Creatinine 0.8 mg/dL (0.7-1.2) 09/09/16 09:34 Estimated GFR > 60 ml/min 09/09/16 09:34 BUN/Creatinine Ratio 10.00 % 09/09/16 09:34 Glucose 150 mg/dL (65-100) H 09/09/16 09:34 POC Glucose 115 (70-105) H 09/11/16 12:11 Lactic Acid 1.2 mmol/L (0.7-2.0) 09/08/16 09:33 Calcium 8.1 mg/dL (8.4-10.2) L 09/09/16 09:34 Total Creatine Kinase 64 units/L (30-135) 09/08/16 09:33 CK-MB (CK-2) 1.1 ng/mL (0.0-4.0) 09/08/16 09:33 CK-MB (CK-2) Rel Index 1.7 (0-4) 09/08/16 09:33 Troponin T < 0.010 ng/mL (0.00-0.029) 09/08/16 09:33 NT-Pro-B Natriuret Pep 54.21 pg/mL (0-900) 09/07/16 22:38 Lipase 27 units/L (13-60) 09/07/16 12:57 Urine Color Yellow (Yellow) 09/07/16 22:20 Urine Turbidity Slightly-cloudy (Clear) 09/07/16 22:20 Urine pH 5.0 (5.0-7.0) 09/07/16 22:20 Ur Specific [place] 1.024 (1.003-1.030) 09/07/16 22:20 Urine Protein 30 mg/dl mg/dL (Negative) 09/07/16 22:20 Urine Glucose (UA) 50 mg/dL (Negative) 09/07/16 22:20 Urine Ketones Tr mg/dL (Negative) 09/07/16 22:20 Urine Blood Sm (Negative) 09/07/16 22:20 Urine Nitrite Neg (Negative) 09/07/16 22:20 Urine Bilirubin Neg (Negative) 09/07/16 22:20 Urine Urobilinogen < 2.0 mg/dL (<2.0) 09/07/16 22:20 Ur Leukocyte Esterase Lg (Negative) 09/07/16 22:20 Urine WBC (Auto) 15.0 /HPF (0.0-6.0) H 09/07/16 22:20 Urine RBC (Auto) 19.0 /HPF (0.0-6.0) 09/07/16 22:20 U Epithel Cells (Auto) 18.0 /HPF (0-13.0) H 09/07/16 22:20 Urine Bacteria (Auto) 1+ /HPF (Negative) 09/07/16 22:20 Urine Mucus 3+ /HPF 09/07/16 22:20 Urine Opiates Screen Presumptive negative 09/07/16 22:20 Urine Methadone Screen Presumptive negative 09/07/16 22:20 Ur Barbiturates Screen Presumptive negative 09/07/16 22:20 Ur Phencyclidine Scrn Presumptive negative 09/07/16 22:20 Ur Amphetamines Screen Presumptive negative 09/07/16 22:20 U Benzodiazepines Scrn Presumptive negative 09/07/16 22:20 Urine Cocaine Screen Presumptive negative 09/07/16 22:20 U Marijuana (THC) Screen Presumptive negative 09/07/16 22:20 Drugs of Abuse Note Disclamer 09/07/16 22:20
[2016-09-11] MEDS ORDERED: WATER FOR INJ (PF) 10 ML ONE (14:12)
[2016-09-11] MEDS: DILANTIN PO SCH (21:41)
[2016-09-12] MEDS: ZOFRAN IV PRN ×3 (01:45→17:15)
[2016-09-12] MEDS: ZOSYN/NS 4.5GM/100ML 100 ML IV SCH ×2 (02:31→09:48)
[2016-09-12] MEDS: PROVENTIL IH SCH (03:12)
[2016-09-12] MEDS ORDERED: PROVENTIL IH PRN (03:27)
[2016-09-12] MEDS ORDERED: PROVENTIL IH SCH (03:30)
[2016-09-12] MEDS: NACL 0.9% 1000 ML 1,000 ML IV SCH ×2 (04:20→17:20)
[2016-09-12] MEDS: DUONEB 0.5 MG-3 MG/3 ML SOLN IH SCH ×4 (08:46→21:20)
[2016-09-12] MEDS: ROBITUSSIN AC PO PRN ×2 (09:46→21:25)
[2016-09-12] MEDS: LOVENOX SUB-Q SCH (09:46)
[2016-09-12] MEDS: DELTASONE PO SCH (09:47)
[2016-09-12] MEDS: ISENTRESS PO SCH ×2 (09:47→21:26)
[2016-09-12] MEDS: BENADRYL IV PRN ×2 (09:47→17:15)
[2016-09-12] MEDS: EMTRIVA PO SCH (09:47)
[2016-09-12] MEDS: VIREAD PO SCH (09:48)
--- NOTE | 2016-09-12 12:41 | Progress Note ---
Assessment and Plan Assessment and plan: 61-year-old female presents with generalized abdominal pain HIV disorder and diarrhea, workup has been negative so far patient remains hemodynamically stable now Disposition Plan: plan for discharge home when medically stable. Total Time Spent with Patient (Minutes): 28 - Patient Problems (1) Sepsis Current Visit: No Status: Acute Plan to address problem: At present I see no clear etiology of sepsis. Patient's stool negative urine negative all blood cultures negative as well. Very well could be culture negative UTI. At present patient is on Zosyn and stable. No clear evidence sepsis patient here for brow normal white count.Currently being followed by infectious disease.Highest temp was 100.6 on 09-09. (2) Abdominal pain Current Visit: Yes Status: Acute Qualifiers: Abdominal location: generalized Qualified Code(s): R10.84 - Generalized abdominal pain Plan to address problem: Domicile pain resolving. Still has diarrhea. Much better. (3) History of HIV or AIDS Current Visit: No Status: Chronic Plan to address problem: Strip HIV remains on anti-retroviral medications tolerating them well. (4) Diarrhea Current Visit: Yes Status: Acute Qualifiers: Diarrhea type: presumed infectious Qualified Code(s): A09 - Infectious gastroenteritis and colitis, unspecified Plan to address problem: This time not sure of diarrhea is presumed infective. Appears to be gastroenteritis. We'll discuss with team should with attempt more aggressive control of her diarrhea. (5) Hallucinations Current Visit: Yes Status: Acute Plan to address problem: Appeared to be schizoaffective disorder. We'll reintroduce Seroquel at a lower dose 50 mg twice a day and titrate accordingly. History Interval history: Patient tells me today that she is starting to hear things. Patient states she' s not had her medications. When I looked in her back she has a medication Seroquel in which she takes twice daily. She states if she is not on this she gets sick. Patient states abdominal pain is much better today. She mostly was no one she is still wheezing and coughing that is her main problem. He also complains of some diarrhea as well. States pain is better diarrhea is still present. Hospitalist Physical - Constitutional Vitals: Temp Pulse Resp BP Pulse Ox 98.2 F 103 H 20 108/62 96 09/12/16 08:00 09/12/16 11:43 09/12/16 11:43 09/12/16 08:00 09/12/16 08:00 General appearance: Present: no acute distress, well-nourished, cachectic - EENT Eyes: Present: PERRL, EOM intact ENT: hearing intact, clear oral mucosa, dentition normal - Neck Neck: Present: supple, normal ROM - Respiratory Respiratory: bilateral: CTA - Cardiovascular Rhythm: regular Heart Sounds: Present: S1 & S2 Peripheral Pulses: within normal limits - Abdominal General gastrointestinal: soft, non-tender, hypoactive bowel sounds, other ( [place]) - Integumentary Integumentary: Present: clear, warm, dry - Psychiatric Psychiatric: other (auditory hallucinations.) - Neurologic Neurologic: CNII-XII intact, focal deficits Results - Labs CBC & Chem 7: 09/09/16 07:51 09/09/16 09:34 Labs: Laboratory Last Values WBC 3.2 K/mm3 (4.5-11.0) L 09/09/16 07:51 RBC 3.29 M/mm3 (3.65-5.03) L 09/09/16 07:51 Hgb 10.6 gm/dl (10.1-14.3) 09/09/16 07:51 Hct 32.1 % (30.3-42.9) 09/09/16 07:51 MCV 98 fl (79-97) H D 09/09/16 07:51 MCH 32 pg (28-32) 09/09/16 07:51 MCHC 33 % (30-34) 09/09/16 07:51 RDW 16.8 % (13.2-15.2) H 09/09/16 07:51 Plt Count 189 K/mm3 (140-440) 09/09/16 07:51 Lymph % (Auto) 50.9 % (13.4-35.0) H 09/09/16 07:51 [place] % (Auto) 9.5 % (0.0-7.3) H 09/09/16 07:51 Eos % (Auto) 2.7 % (0.0-4.3) 09/09/16 07:51 Baso % (Auto) 1.0 % (0.0-1.8) 09/09/16 07:51 Lymph # 1.6 K/mm3 (1.2-5.4) 09/09/16 07:51 [place] # 0.3 K/mm3 (0.0-0.8) 09/09/16 07:51 Eos # 0.1 K/mm3 (0.0-0.4) 09/09/16 07:51 Baso # 0.0 K/mm3 (0.0-0.1) 09/09/16 07:51 Seg Neutrophils % 35.9 % (40.0-70.0) L 09/09/16 07:51 Seg Neutrophils # 1.2 K/mm3 (1.8-7.7) L 09/09/16 07:51 PT 13.8 Sec. (12.2-14.9) 09/07/16 22:38 INR 1.07 (0.87-1.13) 09/07/16 22:38 Sodium 143 mmol/L (137-145) 09/09/16 09:34 Potassium 3.9 mmol/L (3.6-5.0) 09/09/16 09:34 Chloride 110.9 mmol/L (98-107) H 09/09/16 09:34 Carbon Dioxide 20 mmol/L (22-30) L 09/09/16 09:34 Anion Gap 16 mmol/L 09/09/16 09:34 BUN 8 mg/dL (7-17) 09/09/16 09:34 Creatinine 0.8 mg/dL (0.7-1.2) 09/09/16 09:34 Estimated GFR > 60 ml/min 09/09/16 09:34 BUN/Creatinine Ratio 10.00 % 09/09/16 09:34 Glucose 150 mg/dL (65-100) H 09/09/16 09:34 POC Glucose 280 (70-105) H 09/11/16 16:58 Lactic Acid 1.2 mmol/L (0.7-2.0) 09/08/16 09:33 Calcium 8.1 mg/dL (8.4-10.2) L 09/09/16 09:34 Total Creatine Kinase 64 units/L (30-135) 09/08/16 09:33 CK-MB (CK-2) 1.1 ng/mL (0.0-4.0) 09/08/16 09:33 CK-MB (CK-2) Rel Index 1.7 (0-4) 09/08/16 09:33 Troponin T < 0.010 ng/mL (0.00-0.029) 09/08/16 09:33 NT-Pro-B Natriuret Pep 54.21 pg/mL (0-900) 09/07/16 22:38 Lipase 27 units/L (13-60) 09/07/16 12:57 Urine Color Yellow (Yellow) 09/07/16 22:20 Urine Turbidity Slightly-cloudy (Clear) 09/07/16 22:20 Urine pH 5.0 (5.0-7.0) 09/07/16 22:20 Ur Specific [place] 1.024 (1.003-1.030) 09/07/16 22:20 Urine Protein 30 mg/dl mg/dL (Negative) 09/07/16 22:20 Urine Glucose (UA) 50 mg/dL (Negative) 09/07/16 22:20 Urine Ketones Tr mg/dL (Negative) 09/07/16 22:20 Urine Blood Sm (Negative) 09/07/16 22:20 Urine Nitrite Neg (Negative) 09/07/16 22:20 Urine Bilirubin Neg (Negative) 09/07/16 22:20 Urine Urobilinogen < 2.0 mg/dL (<2.0) 09/07/16 22:20 Ur Leukocyte Esterase Lg (Negative) 09/07/16 22:20 Urine WBC (Auto) 15.0 /HPF (0.0-6.0) H 09/07/16 22:20 Urine RBC (Auto) 19.0 /HPF (0.0-6.0) 09/07/16 22:20 U Epithel Cells (Auto) 18.0 /HPF (0-13.0) H 09/07/16 22:20 Urine Bacteria (Auto) 1+ /HPF (Negative) 09/07/16 22:20 Urine Mucus 3+ /HPF 09/07/16 22:20 Urine Opiates Screen Presumptive negative 09/07/16 22:20 Urine Methadone Screen Presumptive negative 09/07/16 22:20 Ur Barbiturates Screen Presumptive negative 09/07/16 22:20 Ur Phencyclidine Scrn Presumptive negative 09/07/16 22:20 Ur Amphetamines Screen Presumptive negative 09/07/16 22:20 U Benzodiazepines Scrn Presumptive negative 09/07/16 22:20 Urine Cocaine Screen Presumptive negative 09/07/16 22:20 U Marijuana (THC) Screen Presumptive negative 09/07/16 22:20 Drugs of Abuse Note Disclamer 09/07/16 22:20
--- NOTE | 2016-09-12 12:45 | Progress Note ---
Assessment and Plan Current antibiotics: Zosyn 4.5 g IV q8h 09/10 --> Previous Antibiotics: Metronidazole 09/08 Levaquin 09/08 ASSESSMENT: Olga Ramirez is a 61 y/o woman with HIV infection (CD4 343) , hypertension, type 2 DM, CHF, asthma, and seizure disorder recently discharged from [facility] on daptomycin for a polymicrobial blood stream infection. She is now presenting with similar complaints including abdominal cramps, diarrhea, nausea, vomiting, fever, cough, shortness of breath and weakness. She said her temperature at home was 102 but here in the hospital she is afebrile. Problem list: 1. Clinical picture of abdominal pain, fevers, nausea, vomiting, diarrhea and shortness of breath. -abdominal pain is not worse but same as previous admission -stool cdiff and culture negative -CT of chest without abnormalities, CT scan of abdomen without bowel pathology -patient is now reporting loose stool, but she said it is better today. 2. Leukopenia -Suspect related to underlying HIV 3. Compaints of diarrhea -None substantiated -Stool cdiff negative on 09/08/16 4. HIV -CD4 and viral load pending -On anti-retroviral therapy 5. Status post polymicrobial blood stream infection -MRSA & Staph epidermidis in one set -The second set with VRE, Staph epidermidis and diptheroids -Repeat blood cultures negative -Finished course of antibiotics 6. Fevers -Unclear source -Blood cultures negative, CT scan of chest and abdomen without abnormalities. - No further recent temperature spikes PLAN: 1. Await results of 09/10 blood cultures - NGTD 2. Continue anti-retroviral therapy Truvada( tenofovir, emtriva) and Isentress 3.Await results of CD4 and HIV viral load 4. Suggest oral Levaquin versus asthmatic bronchitis. Zosyn stopped. 6. Continue contact isolation for MRSA history Subjective Date of service: 09/12/16 Principal diagnosis: Abd pain, loose BM's, fever Interval history: Complaints of difficulty breathing. Audible wheezing noted. Objective - Exam Narrative Exam: Obese. No apparent respiratory distress. HEENT: Pupils are equal reactive to light and accommodation. Conjunctiva clear. Oropharynx is normal with no evidence of oral candidiasis or pharyngitis. NECK: Supple. No enlargement of the thyroid gland. No significant cervical lymphadenopathy. No jugular venous distention at 30. LUNGS: Wheezing throughout. HEART: Regular rate. S1 and S2 are normal. There are no murmurs, gallops, clicks or rubs heard. ABDOMEN: Soft and nontender. Liver and spleen are not palpably enlarged or tender. No palpable masses. Bowel sounds are normoactive. EXTREMITIES: No rash, peripheral lymphadenopathy, clubbing or edema. SKIN: No other rash, ulcers or wounds. Dry skin. NEUROLOGIC: No focal findings. - Constitutional Vitals: Vital Signs Temp Pulse Resp BP Pulse Ox 98.2 F 103 H 20 108/62 96 09/12/16 08:00 09/12/16 11:43 09/12/16 11:43 09/12/16 08:00 09/12/16 08:00 Temperature -Last 24 Hours Temperature 98.2 F Temperature 98.0 F Temperature 98.5 F Temperature 99.4 F - Labs CBC & Chem 7: 09/09/16 07:51 09/09/16 09:34 Labs: Abnormal lab results 09/11/16 Range/Units 16:58 POC Glucose 280 H (70-105)
[2016-09-12] MEDS: LEVAQUIN PO SCH (14:19)
[2016-09-12] MEDS: MORPHINE IV PRN (17:15)
[2016-09-12] MEDS: DILANTIN PO SCH (21:26)
[2016-09-12] MEDS: LOMOTIL PO PRN (21:27)
[2016-09-12 22:50] LABS: Bilirubin,Urine NEG (Negative); Blood,Urine SM (Negative); Ketones,Urine NEG (Negative); Leukocyte Esterase,Urine NEG (Negative); Mucus,Urine FEW /HPF; Nitrite,Urine NEG (Negative); Protein,Urine <15 mg/dL mg/dL (Negative); RBC,Urine < 1.0 /HPF (0.0-6.0); Urobilinogen,Urine < 2.0 mg/dL (<2.0); WBC,Urine < 1.0 /HPF (0.0-6.0)
[2016-09-13] MEDS: MORPHINE IV PRN ×2 (09:01→14:31)
[2016-09-13] MEDS: BENADRYL IV PRN (09:01)
[2016-09-13] MEDS: ROBITUSSIN AC PO PRN ×2 (09:02→21:21)
[2016-09-13] MEDS: ZOFRAN IV PRN (09:02)
[2016-09-13] MEDS: LOMOTIL PO PRN ×2 (09:36→21:21)
[2016-09-13] MEDS: DUONEB 0.5 MG-3 MG/3 ML SOLN IH SCH ×5 (11:08→21:49)
[2016-09-13] MEDS: LOVENOX SUB-Q SCH (11:21)
[2016-09-13] MEDS: DELTASONE PO SCH (11:22)
[2016-09-13] MEDS: LEVAQUIN PO SCH (11:22)
[2016-09-13] MEDS: ISENTRESS PO SCH ×2 (11:23→21:21)
[2016-09-13] MEDS: VIREAD PO SCH (11:24)
[2016-09-13] MEDS: EMTRIVA PO SCH (11:24)
--- NOTE | 2016-09-13 11:39 | Progress Note ---
Assessment and Plan Current antibiotics: Levaquin 500 mg by mouth daily ( 09/12 -> Previous Antibiotics: Zosyn 4.5 g IV every 8 hour ( 09/10 - 09/12) Metronidazole 09/08 Levaquin 09/08 ASSESSMENT: Olga Ramirez is a 61 y/o woman with HIV infection (CD4 343) , hypertension, type 2 DM, CHF, asthma, and seizure disorder recently discharged from [facility] on daptomycin for a polymicrobial blood stream infection. She is now presenting with similar complaints including abdominal cramps, diarrhea, nausea, vomiting, fever, cough, shortness of breath and weakness. She said her temperature at home was 102 but here in the hospital she is afebrile. Problem list: 1. Clinical picture of abdominal pain, fevers, nausea, vomiting, diarrhea and shortness of breath. -abdominal pain is not worse but same as previous admission -stool cdiff and culture negative -CT of chest without abnormalities, CT scan of abdomen without bowel pathology -patient is now reporting loose stool, but she said it is better today. 2. Leukopenia -Suspect related to underlying HIV 3. Compaints of diarrhea -None substantiated -Stool cdiff negative on 09/08/16 4. HIV -CD4 and viral load pending -On anti-retroviral therapy 5. Status post polymicrobial blood stream infection -MRSA & Staph epidermidis in one set -The second set with VRE, Staph epidermidis and diptheroids -Repeat blood cultures negative -Finished course of antibiotics 6. Fevers -Unclear source -Blood cultures negative, CT scan of chest and abdomen without abnormalities. - No further recent temperature spikes PLAN: 1. Await results of 09/10 blood cultures - NGTD 2. Continue anti-retroviral therapy Truvada( tenofovir, emtriva) and Isentress 3. Await results of CD4 and HIV viral load 4. Continue oral Levaquin versus asthmatic bronchitis. 5. Repeat white count in the morning. 6. Continue contact isolation for MRSA history Subjective Date of service: 09/13/16 Principal diagnosis: Abd pain, loose BM's, fever Interval history: States that her chest is no better and that she is coughing up greenish sputum. Objective - Exam Narrative Exam: Obese. No apparent respiratory distress. HEENT: Pupils are equal reactive to light and accommodation. Conjunctiva clear. Oropharynx is normal with no evidence of oral candidiasis or pharyngitis. NECK: Supple. No enlargement of the thyroid gland. No significant cervical lymphadenopathy. No jugular venous distention at 30. LUNGS: Wheezing throughout. HEART: Regular rate. S1 and S2 are normal. There are no murmurs, gallops, clicks or rubs heard. ABDOMEN: Soft and nontender. Liver and spleen are not palpably enlarged or tender. No palpable masses. Bowel sounds are normoactive. EXTREMITIES: No rash, peripheral lymphadenopathy, clubbing or edema. SKIN: No other rash, ulcers or wounds. Dry skin. NEUROLOGIC: No focal findings. - Constitutional Vitals: Vital Signs Temp Pulse Resp BP Pulse Ox 98.5 F 103 H 22 116/72 99 09/13/16 08:06 09/13/16 11:02 09/13/16 11:02 09/13/16 08:06 09/13/16 08:06 Temperature -Last 24 Hours Temperature 98.5 F Temperature 99.2 F Temperature 98.4 F - Labs CBC & Chem 7: 09/09/16 07:51 09/09/16 09:34
--- NOTE | 2016-09-13 12:33 | Progress Note ---
Assessment and Plan Assessment and plan: Patient is a 61-year-old woman history of HIV, seizure disorder, C. difficile, type 2 diabetes mellitus and hypertension who recently discharged from [facility], [place] on daptomycin for polymicrobial bloodstream infection who presents with significant similar complaints of abdominal pain. On [address] abdomen and pelvis without contrast which showed morbid obesity, small hiatal hernia, IVC filter, no definite signs acute disease and abdomen of pelvis. CT abdomen and pelvis with contrast 09/08/2016 show hiatal hernia thickened stomach antrum which could be mild gastritis but no obstruction colitis or enteritis. IVC filter were recognized as well as a hysterectomy. She saw gastroenterology last visit. 1. Recurrent abdominal pains ?etiology, ID is following, seen by GI and they have signed off, repeat C. difficile was negative 2. HIV followed by infectious disease 3. Bacteremia, finished a course of antibiotics 4. Type 2 diabetes mellitus: Adjust insulin Await ID to clear to discharge History Interval history: Patient seen and examined. Follow up on abdominal pain which is still present. She also complains of whole entire chest hurting as well as her back. Overnight uneventful. No cp, sob, n/v or severe headaches. Imaging, old records , testing, labs, nursing notes reviewed. Hospitalist Physical - Physical exam Narrative exam: GEN: WDWN, NAD, AWAKE, ALERT, ORIENTATED 3 CVS: RRR, NORMAL S1S2 LUNGS/CHEST: CTA B, NORMAL CHEST EXPANSION B, GOOD AIR ENTRY B ABD: SOFT, DIFFUSE TENDERNESS WITHOUT distention GBS, NO REBOUND OR GUARDING EXT/SKIN: NO SIGNIFICANT EDEMA OR RASH MSK: FROM X 4 EXTREMITIES NEURO: CN 2-12 GROSSLY INTACT, NO FOCAL DEFICITS PSY: CALM - Constitutional Vitals: Temp Pulse Resp BP Pulse Ox 98.5 F 103 H 22 116/72 99 09/13/16 08:06 09/13/16 11:02 09/13/16 11:02 09/13/16 08:06 09/13/16 08:06 General appearance: Present: no acute distress, well-nourished Results - Labs CBC & Chem 7: 09/09/16 07:51 09/09/16 09:34 Labs: Laboratory Last Values WBC 3.2 K/mm3 (4.5-11.0) L 09/09/16 07:51 RBC 3.29 M/mm3 (3.65-5.03) L 09/09/16 07:51 Hgb 10.6 gm/dl (10.1-14.3) 09/09/16 07:51 Hct 32.1 % (30.3-42.9) 09/09/16 07:51 MCV 98 fl (79-97) H D 09/09/16 07:51 MCH 32 pg (28-32) 09/09/16 07:51 MCHC 33 % (30-34) 09/09/16 07:51 RDW 16.8 % (13.2-15.2) H 09/09/16 07:51 Plt Count 189 K/mm3 (140-440) 09/09/16 07:51 Lymph % (Auto) 50.9 % (13.4-35.0) H 09/09/16 07:51 [place] % (Auto) 9.5 % (0.0-7.3) H 09/09/16 07:51 Eos % (Auto) 2.7 % (0.0-4.3) 09/09/16 07:51 Baso % (Auto) 1.0 % (0.0-1.8) 09/09/16 07:51 Lymph # 1.6 K/mm3 (1.2-5.4) 09/09/16 07:51 [place] # 0.3 K/mm3 (0.0-0.8) 09/09/16 07:51 Eos # 0.1 K/mm3 (0.0-0.4) 09/09/16 07:51 Baso # 0.0 K/mm3 (0.0-0.1) 09/09/16 07:51 Seg Neutrophils % 35.9 % (40.0-70.0) L 09/09/16 07:51 Seg Neutrophils # 1.2 K/mm3 (1.8-7.7) L 09/09/16 07:51 PT 13.8 Sec. (12.2-14.9) 09/07/16 22:38 INR 1.07 (0.87-1.13) 09/07/16 22:38 Sodium 143 mmol/L (137-145) 09/09/16 09:34 Potassium 3.9 mmol/L (3.6-5.0) 09/09/16 09:34 Chloride 110.9 mmol/L (98-107) H 09/09/16 09:34 Carbon Dioxide 20 mmol/L (22-30) L 09/09/16 09:34 Anion Gap 16 mmol/L 09/09/16 09:34 BUN 8 mg/dL (7-17) 09/09/16 09:34 Creatinine 0.8 mg/dL (0.7-1.2) 09/09/16 09:34 Estimated GFR > 60 ml/min 09/09/16 09:34 BUN/Creatinine Ratio 10.00 % 09/09/16 09:34 Glucose 150 mg/dL (65-100) H 09/09/16 09:34 POC Glucose 280 (70-105) H 09/11/16 16:58 Lactic Acid 1.2 mmol/L (0.7-2.0) 09/08/16 09:33 Calcium 8.1 mg/dL (8.4-10.2) L 09/09/16 09:34 Total Creatine Kinase 64 units/L (30-135) 09/08/16 09:33 CK-MB (CK-2) 1.1 ng/mL (0.0-4.0) 09/08/16 09:33 CK-MB (CK-2) Rel Index 1.7 (0-4) 09/08/16 09:33 Troponin T < 0.010 ng/mL (0.00-0.029) 09/08/16 09:33 NT-Pro-B Natriuret Pep 54.21 pg/mL (0-900) 09/07/16 22:38 Lipase 27 units/L (13-60) 09/07/16 12:57 Urine Color Colorless (Yellow) 09/12/16 22:00 Urine Turbidity Clear (Clear) 09/12/16 22:00 Urine pH 5.0 (5.0-7.0) 09/12/16 22:00 Ur Specific [place] 1.005 (1.003-1.030) 09/12/16 22:00 Urine Protein <15 mg/dl mg/dL (Negative) 09/12/16 22:00 Urine Glucose (UA) 50 mg/dL (Negative) 09/12/16 22:00 Urine Ketones Neg mg/dL (Negative) 09/12/16 22:00 Urine Blood Sm (Negative) 09/12/16 22:00 Urine Nitrite Neg (Negative) 09/12/16 22:00 Urine Bilirubin Neg (Negative) 09/12/16 22:00 Urine Urobilinogen < 2.0 mg/dL (<2.0) 09/12/16 22:00 Ur Leukocyte Esterase Neg (Negative) 09/12/16 22:00 Urine WBC (Auto) < 1.0 /HPF (0.0-6.0) 09/12/16 22:00 Urine RBC (Auto) < 1.0 /HPF (0.0-6.0) 09/12/16 22:00 U Epithel Cells (Auto) < 1.0 /HPF (0-13.0) 09/12/16 22:00 Urine Bacteria (Auto) 1+ /HPF (Negative) 09/07/16 22:20 Urine Mucus Few /HPF 09/12/16 22:00 Urine Opiates Screen Presumptive negative 09/07/16 22:20 Urine Methadone Screen Presumptive negative 09/07/16 22:20 Ur Barbiturates Screen Presumptive negative 09/07/16 22:20 Ur Phencyclidine Scrn Presumptive negative 09/07/16 22:20 Ur Amphetamines Screen Presumptive negative 09/07/16 22:20 U Benzodiazepines Scrn Presumptive negative 09/07/16 22:20 Urine Cocaine Screen Presumptive negative 09/07/16 22:20 U Marijuana (THC) Screen Presumptive negative 09/07/16 22:20 Drugs of Abuse Note Disclamer 09/07/16 22:20 - Imaging and Cardiology CT scan - abdomen: report reviewed CT scan - pelvis: report reviewed
[2016-09-13] MEDS: NACL 0.9% 1000 ML 1,000 ML IV SCH (18:26)
[2016-09-13] MEDS: DILANTIN PO SCH (21:21)
[2016-09-14] MEDS: BENADRYL IV PRN (00:24)
[2016-09-14] MEDS: ZOFRAN IV PRN (00:25)
[2016-09-14 01:10] LABS: Hematocrit 27.8 % (30.3-42.9); Mean Corpuscular HGB Conc 32 % (30-34); Mean Corpuscular Hemoglobin 32 pg (28-32); Mean Corpuscular Volume 99 fl (79-97); Platelet Count 136 K/mm3 (140-440); Red Blood Count 2.81 M/mm3 (3.65-5.03); Red Cell Distribution Width 17.1 % (13.2-15.2); White Blood Count 2.8 K/mm3 (4.5-11.0)
[2016-09-14 02:36] LABS: Anisocytosis 1+; Basophils % (Manual) 0 % (0.0-1.8); Blastocytes % (Manual) 0 %; Diff Status Complete; Eosinophils % (Manual) 0 % (0.0-4.3); Hypochromasia 1+; Platelet Estimate Consistent w Auto
[2016-09-14] MEDS: DUONEB 0.5 MG-3 MG/3 ML SOLN IH SCH ×4 (08:29→20:25)
[2016-09-14] MEDS: NACL 0.9% 1000 ML 1,000 ML IV SCH ×2 (10:04→22:50)
[2016-09-14] MEDS: DELTASONE PO SCH (10:04)
[2016-09-14] MEDS: EMTRIVA PO SCH (10:04)
[2016-09-14] MEDS: ISENTRESS PO SCH ×2 (10:05→21:52)
[2016-09-14] MEDS: LEVAQUIN PO SCH (10:05)
[2016-09-14] MEDS: LOVENOX SUB-Q SCH (10:06)
[2016-09-14] MEDS: VIREAD PO SCH (10:06)
[2016-09-14] MEDS: MORPHINE IV PRN ×2 (10:16→17:10)
--- NOTE | 2016-09-14 10:38 | Progress Note ---
Assessment and Plan Current antibiotics: Levaquin 500 mg PO q day 09/12 --> Previous Antibiotics: Zosyn 4.5 g IV q8h 09/10-09/12 Metronidazole 09/08 Levaquin 09/08 ASSESSMENT: Olga Ramirez is a 61 y/o woman with HIV infection (CD4 343) , hypertension, type 2 DM, CHF, asthma, and seizure disorder recently discharged from [facility] on daptomycin for a polymicrobial blood stream infection. She is now presenting with similar complaints including abdominal cramps, diarrhea, nausea, vomiting, fever, cough, shortness of breath and weakness. She said her temperature at home was 102 but here in the hospital she is afebrile. Problem list: 1. Clinical picture of abdominal pain, fevers, nausea, vomiting, diarrhea and shortness of breath. -Abdominal pain is not worse but same as previous admission -C diff assay negative -CT of chest without abnormalities, CT scan of abdomen without bowel pathology 2. Increasing shortness of breath -Increased wheezing -Rule out fluid overload +/- exacerbaation of asthmatic bronchitis 3. Leukopenia -Suspect related to underlying HIV 4. Complaints of diarrhea -None substantiated -C diff assay negative on 09/08/16 5. HIV -CD4 and viral load pending -On anti-retroviral therapy 6. Status post polymicrobial blood stream infection -MRSA & Staph epidermidis in one set -The second set with VRE, Staph epidermidis and diptheroids -Repeat blood cultures negative -Finished course of antibiotics 7. Fevers -Unclear source -Blood cultures negative, CT scan of chest and abdomen without abnormalities. Temperature high of 103 on 09/10. Afebrile so far today PLAN: 1. Will check CXR 2. Treatment of worsening bronchospasm as per the hospitalist team 3. Continue anti-retroviral therapy Truvada (tenofovir, emtriva) and Isentress 4. Await results of CD4 and HIV viral load 5. Continue Levaquin 6. Continue contact isolation for MRSA history Loco Jain MD [facility] Office: [phone] Subjective Date of service: 09/14/16 Principal diagnosis: Abd pain, loose BM's, fever Interval history: In distress, crying: "I can't breath." No significant sputum production or pleuritic chest pain. No subjective fever or chills. Objective - Exam Narrative Exam: GENERAL: Well-developed, obese,femalw who is alert, crying and short of breath HEAD: Normocephalic. No lesions seen. EYES: Pupils are equal reactive to light and accommodation. There is no scleral icterus. Optic fundi are not examined. EARS: Tympanic membranes are normal. THROAT: Oropharynx is normal with no evidence of oral candidiasis or pharyngitis. NECK: Supple. No enlargement of the thyroid gland. No significant cervical lymphadenopathy. No jugular venous distention at 30. LUNGS: Diffuse, bilateral inspiratory and expiratory wheezes throughout. No other adventitious sounds heard. HEART: Regular rate. S1 and S2 are normal. There are no murmurs, gallops, clicks or rubs heard. ABDOMEN: Soft and nontender. Liver and spleen are not palpably enlarged or tender. No palpable masses. Bowel sounds are normoactive. EXTREMITIES: No rash, peripheral lymphadenopathy, clubbing or edema. : Not examined NEUROLOGIC: No focal findings. - Constitutional Vitals: Vital Signs Temp Pulse Resp BP Pulse Ox 98.5 F 90 18 93/50 96 09/14/16 07:58 09/14/16 08:29 09/14/16 08:29 09/14/16 07:58 09/14/16 07:58 Temperature -Last 24 Hours Temperature 98.5 F Temperature 98.7 F Temperature 98.0 F Temperature 98.1 F Temperature 99 F - Labs CBC & Chem 7: 09/14/16 01:00 09/09/16 09:34 Labs: Abnormal lab results 05/11: CD4 & HIV VL pending Microbiology 09/12/16 22:00 Urine,Clean Catch Urine Culture - Preliminary NO GROWTH AFTER 24 HOURS 09/10/16 07:55 Peripheral/Venous Blood Culture - Preliminary NO GROWTH AFTER 72 HOURS 09/10/16 19:00 Peripheral/Venous Blood Culture - Preliminary NO GROWTH AFTER 72 HOURS 09/07/16 22:38 Peripheral/Venous Blood Culture - Final NO GROWTH AFTER 5 DAYS 09/07/16 00:00 Peripheral/Venous Blood Culture - Final NO GROWTH AFTER 5 DAYS 09/08/16 Unknown Urine,Clean Catch Urine Culture - Final 09/08/16 Unknown Stool Stool Culture - No enteric pathogens 09/08/16 Unknown Stool C. difficile DNA Amplification - Negative 09/08/16 Unknown Stool Stool for WBCs - Final NEGATIVE 09/07/16 23:44 Nasopharyngeal Swab Influenza Types A,B Antigen (ANIBAL) - Negative
[2016-09-14 12:33] LABS: Hematocrit 26.5 % (30.3-42.9); Hemoglobin 8.8 gm/dl (10.1-14.3); Mean Corpuscular HGB Conc 33 % (30-34); Mean Corpuscular Hemoglobin 33 pg (28-32); Mean Corpuscular Volume 100 fl (79-97); Platelet Count 107 K/mm3 (140-440); Red Blood Count 2.66 M/mm3 (3.65-5.03); White Blood Count 3.6 K/mm3 (4.5-11.0)
[2016-09-14 12:52] LABS: Anion Gap 17 mmol/L; BUN/Creatinine Ratio 7.77; Blood Urea Nitrogen 7 mg/dL (7-17); Calcium 7.6 mg/dL (8.4-10.2); Carbon Dioxide 19 mmol/L (22-30); Chloride 106.3 mmol/L (98-107); Glucose 128 mg/dL (65-100); Potassium 3.7 mmol/L (3.6-5.0); Sodium 139 mmol/L (137-145)
--- NOTE | 2016-09-14 13:19 | Progress Note ---
Assessment and Plan Assessment and plan: Patient is a 61-year-old woman history of HIV, seizure disorder, C. difficile, type 2 diabetes mellitus and hypertension who recently discharged from [facility] on daptomycin for polymicrobial bloodstream infection who presents with significant similar complaints of abdominal pain. On [address] abdomen and pelvis without contrast which showed morbid obesity, small hiatal hernia, IVC filter, no definite signs acute disease and abdomen of pelvis. CT abdomen and pelvis with contrast 09/08/2016 show hiatal hernia thickened stomach antrum which could be mild gastritis but no obstruction colitis or enteritis. IVC filter were recognized as well as a hysterectomy. She saw gastroenterology last visit. 1. Recurrent abdominal pains ?etiology, ID is following, seen by GI and they have signed off, repeat C. difficile was negative 2. HIV followed by infectious disease 3. Bacteremia, finished course of antibiotics 4. Type 2 diabetes mellitus: Adjust insulin New issues: wheezing, cxr ordered and pending, treat with nebs Awaiting ID to clear for discharge. History Interval history: Patient seen and examined. Follow up on abdominal pain which is still present. She also complains of whole entire chest hurting as well as her back. Overnight uneventful. No cp, n/v or severe headaches. Imaging, old records, testing, labs, nursing notes reviewed. New issues is wheezing. Hospitalist Physical - Physical exam Narrative exam: GEN: WDWN, NAD, AWAKE, ALERT, ORIENTATED 3 CVS: RRR, NORMAL S1S2 LUNGS/CHEST: bilateral wheezing, NORMAL CHEST EXPANSION B, GOOD AIR ENTRY B ABD: SOFT, DIFFUSE TENDERNESS WITHOUT distention GBS, NO REBOUND OR GUARDING EXT/SKIN: NO SIGNIFICANT EDEMA OR RASH MSK: FROM X 4 EXTREMITIES NEURO: CN 2-12 GROSSLY INTACT, NO FOCAL DEFICITS PSY: CALM - Constitutional Vitals: Temp Pulse Resp BP Pulse Ox 98.5 F 90 18 93/50 96 09/14/16 07:58 09/14/16 08:29 09/14/16 08:29 09/14/16 07:58 09/14/16 07:58 General appearance: Present: no acute distress, well-nourished Results - Labs CBC & Chem 7: 09/14/16 11:23 09/14/16 04:00 Labs: Laboratory Last Values WBC 3.6 K/mm3 (4.5-11.0) L 09/14/16 11:23 RBC 2.66 M/mm3 (3.65-5.03) L 09/14/16 11:23 Hgb 8.8 gm/dl (10.1-14.3) L 09/14/16 11:23 Hct 26.5 % (30.3-42.9) L 09/14/16 11:23 MCV 100 fl (79-97) H 09/14/16 11:23 MCH 33 pg (28-32) H 09/14/16 11:23 MCHC 33 % (30-34) 09/14/16 11:23 RDW 17.0 % (13.2-15.2) H 09/14/16 11:23 Plt Count 107 K/mm3 (140-440) L 09/14/16 11:23 Lymph % (Auto) [place] 09/14/16 01:00 [place] % (Auto) 9.5 % (0.0-7.3) H 09/09/16 07:51 Eos % (Auto) 2.7 % (0.0-4.3) 09/09/16 07:51 Baso % (Auto) 1.0 % (0.0-1.8) 09/09/16 07:51 Lymph # 1.6 K/mm3 (1.2-5.4) 09/09/16 07:51 [place] # 0.3 K/mm3 (0.0-0.8) 09/09/16 07:51 Eos # 0.1 K/mm3 (0.0-0.4) 09/09/16 07:51 Baso # 0.0 K/mm3 (0.0-0.1) 09/09/16 07:51 Add Manual Diff Complete 09/14/16 01:00 Total Counted 100 09/14/16 01:00 Seg Neutrophils % [place] 09/14/16 01:00 Seg Neuts % (Manual) 23.0 % (40.0-70.0) L 09/14/16 01:00 Band Neutrophils % 0 % 09/14/16 01:00 Lymphocytes % (Manual) 65.0 % (13.4-35.0) H 09/14/16 01:00 Reactive Lymphs % (Man) 0 % 09/14/16 01:00 Monocytes % (Manual) 12.0 % (0.0-7.3) H 09/14/16 01:00 Eosinophils % (Manual) 0 % (0.0-4.3) 09/14/16 01:00 Basophils % (Manual) 0 % (0.0-1.8) 09/14/16 01:00 Metamyelocytes % 0 % 09/14/16 01:00 Myelocytes % 0 % 09/14/16 01:00 Promyelocytes % 0 % 09/14/16 01:00 Blast Cells % 0 % 09/14/16 01:00 Nucleated RBC % 1.0 % (0.0-0.9) H 09/14/16 01:00 Seg Neutrophils # 1.2 K/mm3 (1.8-7.7) L 09/09/16 07:51 Seg Neutrophils # Man 0.6 K/mm3 (1.8-7.7) L 09/14/16 01:00 Band Neutrophils # 0.0 K/mm3 09/14/16 01:00 Lymphocytes # (Manual) 1.8 K/mm3 (1.2-5.4) 09/14/16 01:00 Abs React Lymphs (Man) 0.0 K/mm3 09/14/16 01:00 Monocytes # (Manual) 0.3 K/mm3 (0.0-0.8) 09/14/16 01:00 Eosinophils # (Manual) 0.0 K/mm3 (0.0-0.4) 09/14/16 01:00 Basophils # (Manual) 0.0 K/mm3 (0.0-0.1) 09/14/16 01:00 Metamyelocytes # 0.0 K/mm3 09/14/16 01:00 Myelocytes # 0.0 K/mm3 09/14/16 01:00 Promyelocytes # 0.0 K/mm3 09/14/16 01:00 Blast Cells # 0.0 K/mm3 09/14/16 01:00 WBC Morphology Not Reportable 09/14/16 01:00 Hypersegmented Neuts Not Reportable 09/14/16 01:00 Hyposegmented Neuts Not Reportable 09/14/16 01:00 Hypogranular Neuts Not Reportable 09/14/16 01:00 Smudge Cells Not Reportable 09/14/16 01:00 Toxic Granulation Not Reportable 09/14/16 01:00 Toxic Vacuolation Not Reportable 09/14/16 01:00 Dohle Bodies Not Reportable 09/14/16 01:00 Pelger-Huet Anomaly Not Reportable 09/14/16 01:00 Susan Rods Not Reportable 09/14/16 01:00 Platelet Estimate Consistent w auto 09/14/16 01:00 Clumped Platelets Not Reportable 09/14/16 01:00 Plt Clumps, EDTA Not Reportable 09/14/16 01:00 Large Platelets Not Reportable 09/14/16 01:00 Giant Platelets Not Reportable 09/14/16 01:00 Platelet Satelliting Not Reportable 09/14/16 01:00 Plt Morphology Comment Not Reportable 09/14/16 01:00 RBC Morphology Not Reportable 09/14/16 01:00 Dimorphic RBCs Not Reportable 09/14/16 01:00 Polychromasia Not Reportable 09/14/16 01:00 Hypochromasia 1+ 09/14/16 01:00 Poikilocytosis Not Reportable 09/14/16 01:00 Anisocytosis 1+ 09/14/16 01:00 Microcytosis Not Reportable 09/14/16 01:00 Macrocytosis Not Reportable 09/14/16 01:00 Spherocytes Not Reportable 09/14/16 01:00 Pappenheimer Bodies Not Reportable 09/14/16 01:00 Sickle Cells Not Reportable 09/14/16 01:00 Target Cells Not Reportable 09/14/16 01:00 Tear Drop Cells Not Reportable 09/14/16 01:00 Ovalocytes Not Reportable 09/14/16 01:00 Helmet Cells Not Reportable 09/14/16 01:00 [place] Bodies Not Reportable 09/14/16 01:00 [place] Rings Not Reportable 09/14/16 01:00 [place] Cells Not Reportable 09/14/16 01:00 Bite Cells Not Reportable 09/14/16 01:00 Crenated Cell Not Reportable 09/14/16 01:00 Elliptocytes Not Reportable 09/14/16 01:00 Acanthocytes (Spur) Not Reportable 09/14/16 01:00 Rouleaux Not Reportable 09/14/16 01:00 Hemoglobin C Crystals Not Reportable 09/14/16 01:00 Schistocytes Not Reportable 09/14/16 01:00 Malaria parasites Not Reportable 09/14/16 01:00 Baryr Bodies Not Reportable 09/14/16 01:00 Hem Pathologist Commnt No 09/14/16 01:00 PT 13.8 Sec. (12.2-14.9) 09/07/16 22:38 INR 1.07 (0.87-1.13) 09/07/16 22:38 Sodium 139 mmol/L (137-145) 09/14/16 04:00 Potassium 3.7 mmol/L (3.6-5.0) 09/14/16 04:00 Chloride 106.3 mmol/L (98-107) 09/14/16 04:00 Carbon Dioxide 19 mmol/L (22-30) L 09/14/16 04:00 Anion Gap 17 mmol/L 09/14/16 04:00 BUN 7 mg/dL (7-17) 09/14/16 04:00 Creatinine 0.9 mg/dL (0.7-1.2) 09/14/16 04:00 Estimated GFR > 60 ml/min 09/14/16 04:00 BUN/Creatinine Ratio 7.77 % 09/14/16 04:00 Glucose 128 mg/dL (65-100) H 09/14/16 04:00 POC Glucose 280 (70-105) H 09/11/16 16:58 Lactic Acid 1.2 mmol/L (0.7-2.0) 09/08/16 09:33 Calcium 7.6 mg/dL (8.4-10.2) L 09/14/16 04:00 Total Creatine Kinase 64 units/L (30-135) 09/08/16 09:33 CK-MB (CK-2) 1.1 ng/mL (0.0-4.0) 09/08/16 09:33 CK-MB (CK-2) Rel Index 1.7 (0-4) 09/08/16 09:33 Troponin T < 0.010 ng/mL (0.00-0.029) 09/08/16 09:33 NT-Pro-B Natriuret Pep 54.21 pg/mL (0-900) 09/07/16 22:38 Lipase 27 units/L (13-60) 09/07/16 12:57 Urine Color Colorless (Yellow) 09/12/16 22:00 Urine Turbidity Clear (Clear) 09/12/16 22:00 Urine pH 5.0 (5.0-7.0) 09/12/16 22:00 Ur Specific [place] 1.005 (1.003-1.030) 09/12/16 22:00 Urine Protein <15 mg/dl mg/dL (Negative) 09/12/16 22:00 Urine Glucose (UA) 50 mg/dL (Negative) 09/12/16 22:00 Urine Ketones Neg mg/dL (Negative) 09/12/16 22:00 Urine Blood Sm (Negative) 09/12/16 22:00 Urine Nitrite Neg (Negative) 09/12/16 22:00 Urine Bilirubin Neg (Negative) 09/12/16 22:00 Urine Urobilinogen < 2.0 mg/dL (<2.0) 09/12/16 22:00 Ur Leukocyte Esterase Neg (Negative) 09/12/16 22:00 Urine WBC (Auto) < 1.0 /HPF (0.0-6.0) 09/12/16 22:00 Urine RBC (Auto) < 1.0 /HPF (0.0-6.0) 09/12/16 22:00 U Epithel Cells (Auto) < 1.0 /HPF (0-13.0) 09/12/16 22:00 Urine Bacteria (Auto) 1+ /HPF (Negative) 09/07/16 22:20 Urine Mucus Few /HPF 09/12/16 22:00 Urine Opiates Screen Presumptive negative 09/07/16 22:20 Urine Methadone Screen Presumptive negative 09/07/16 22:20 Ur Barbiturates Screen Presumptive negative 09/07/16 22:20 Ur Phencyclidine Scrn Presumptive negative 09/07/16 22:20 Ur Amphetamines Screen Presumptive negative 09/07/16 22:20 U Benzodiazepines Scrn Presumptive negative 09/07/16 22:20 Urine Cocaine Screen Presumptive negative 09/07/16 22:20 U Marijuana (THC) Screen Presumptive negative 09/07/16 22:20 Drugs of Abuse Note Disclamer 09/07/16 22:20
[2016-09-14 15:19] LABS: HIV-1 RNA QN PCR <1.30 Log cps/mL (<1.30); HIV-1 RNA QN PCR <20 copies/mL (<20)
--- NOTE | 2016-09-14 16:08 | XRay Report ---
Chest 2 views: Compared to 09/09/16. History: Worsening shortness of breath. Findings: Normal cardiomediastinal silhouette the trachea is midline. No consolidation, pneumothorax or pleural effusion. Tip of left PICC line in MID superior vena cava. Impression: No acute cardiopulmonary findings.
[2016-09-14] MEDS: DILANTIN PO SCH (21:52)
[2016-09-15] MEDS: NORCO 5/325 PO PRN (04:11)
[2016-09-15] MEDS: MORPHINE IV PRN ×5 (04:20→23:25)
[2016-09-15] MEDS: LOMOTIL PO PRN (04:20)
[2016-09-15] MEDS: ZOFRAN IV PRN ×3 (04:20→21:26)
[2016-09-15] MEDS: BENADRYL IV PRN ×4 (08:08→23:25)
[2016-09-15] MEDS: DUONEB 0.5 MG-3 MG/3 ML SOLN IH SCH ×4 (08:16→21:27)
[2016-09-15] MEDS: LEVAQUIN PO SCH (10:45)
[2016-09-15] MEDS: LOVENOX SUB-Q SCH (10:46)
[2016-09-15] MEDS: ISENTRESS PO SCH ×2 (10:47→21:31)
[2016-09-15] MEDS: VIREAD PO SCH (10:47)
[2016-09-15] MEDS: EMTRIVA PO SCH (10:47)
[2016-09-15] MEDS: NACL 0.9% 1000 ML 1,000 ML IV SCH (10:48)
[2016-09-15] MEDS: DELTASONE PO SCH (11:07)
--- NOTE | 2016-09-15 11:29 | Progress Note ---
Assessment and Plan Current antibiotics: Levaquin 500 mg PO q day 09/12 --> Previous Antibiotics: Zosyn 4.5 g IV q8h 09/10-09/12 Metronidazole 09/08 Levaquin 09/08 Antiretrovirals: Truvada 1 tab po q day Raltegravir 50 mg po q day Corticosteroids: Solu-Medrol 40 mg IV q8h 09/15 --> ASSESSMENT: Olga Ramirez is a 61 y/o woman with HIV infection (CD4 343) , hypertension, type 2 DM, CHF, asthma, and seizure disorder recently discharged from [facility] on daptomycin for a polymicrobial blood stream infection. She is now presenting with similar complaints including abdominal cramps, diarrhea, nausea, vomiting, fever, cough, shortness of breath and weakness. She said her temperature at home was 102 but here in the hospital she is afebrile. Problem list: 1. Clinical picture of abdominal pain, fevers, nausea, vomiting, diarrhea and shortness of breath. -Abdominal pain is not worse but same as previous admission -C diff assay negative -CT of chest without abnormalities, CT scan of abdomen without bowel pathology 2. Increasing shortness of breath -Increased wheezing -Exacerbation of asthmatic bronchitis 3. Leukopenia -Suspect related to underlying HIV 4. Complaints of diarrhea -None substantiated -C diff assay negative on 09/08/16 5. HIV -CD4 256 and viral load < 20 -On anti-retroviral therapy 6. Status post polymicrobial blood stream infection -MRSA & Staph epidermidis in one set -The second set with VRE, Staph epidermidis and diptheroids -Repeat blood cultures negative -Finished course of antibiotics 7. Fevers -Unclear source -Blood cultures negative, CT scan of chest and abdomen without abnormalities. Temperature high of 103 on 09/10. Afebrile so far today PLAN: 1. Treatment of worsening bronchospasm as per the hospitalist team. Now on corticosteroids. 2. Continue anti-retroviral therapy Truvada (tenofovir, emtriva) and Isentress 3. Continue Levaquin 4. Continue contact isolation for MRSA history Loco Jain MD [facility] Office: [phone] Subjective Date of service: 09/15/16 Principal diagnosis: Abd pain, loose BM's, fever Interval history: Breathing somewhat better but still is wheezing. Still has her chronic complaints of abdominal pain and on and off diarrhea. ROS: No subjective fever or chills. No nausea or vomiting. No shortness of breath, cough or pleuritic chest pain Objective - Exam Narrative Exam: GENERAL: Well-developed, obese, female who is alert and in no distress today. Still somewhat anxious. HEAD: Normocephalic. No lesions seen. EYES: Pupils are equal reactive to light and accommodation. There is no scleral icterus. Optic fundi are not examined. EARS: Tympanic membranes are normal. THROAT: Oropharynx is normal with no evidence of oral candidiasis or pharyngitis. NECK: Supple. No enlargement of the thyroid gland. No significant cervical lymphadenopathy. No jugular venous distention at 30. LUNGS: Diffuse, bilateral inspiratory and expiratory wheezes throughout but somewhat improved as compared to yesterday.. No other adventitious sounds heard. HEART: Regular rate. S1 and S2 are normal. There are no murmurs, gallops, clicks or rubs heard. ABDOMEN: Soft and nontender. Liver and spleen are not palpably enlarged or tender. No palpable masses. Bowel sounds are normoactive. EXTREMITIES: No rash, peripheral lymphadenopathy, clubbing or edema. : Not examined NEUROLOGIC: No focal findings. - Constitutional Vitals: Vital Signs Temp Pulse Resp BP Pulse Ox 98.4 F 84 22 135/77 99 09/15/16 08:00 09/15/16 08:00 09/15/16 08:00 09/15/16 08:00 09/15/16 08:00 Temperature -Last 24 Hours Temperature 98.4 F Temperature 98.4 F Temperature 99.8 F Temperature 98.8 F Temperature 99 F - Labs CBC & Chem 7: 09/14/16 11:23 09/14/16 04:00 Labs: Abnormal lab results Microbiology Laboratory Tests 09/10/16 09/11/16 20:00 07:55 % CD4 Cells 41 Absolute CD4 Count 256 L HIV-1 RNA PCR copies/ml <20 09/12/16 22:00 Urine,Clean Catch Urine Culture - Preliminary NO GROWTH AFTER 24 HOURS 09/10/16 07:55 Peripheral/Venous Blood Culture - Preliminary NO GROWTH AFTER 72 HOURS 09/10/16 19:00 Peripheral/Venous Blood Culture - Preliminary NO GROWTH AFTER 72 HOURS 09/07/16 22:38 Peripheral/Venous Blood Culture - Final NO GROWTH AFTER 5 DAYS 09/07/16 00:00 Peripheral/Venous Blood Culture - Final NO GROWTH AFTER 5 DAYS 09/08/16 Unknown Urine,Clean Catch Urine Culture - Final 09/08/16 Unknown Stool Stool Culture - No enteric pathogens 09/08/16 Unknown Stool C. difficile DNA Amplification - Negative 09/08/16 Unknown Stool Stool for WBCs - Final NEGATIVE 09/07/16 23:44 Nasopharyngeal Swab Influenza Types A,B Antigen (ANIBAL) - Negative Imagin/26 CXR: Normal
--- NOTE | 2016-09-15 15:59 | Progress Note ---
Assessment and Plan Assessment and plan: Patient is a 61-year-old woman history of HIV, seizure disorder, C. difficile, type 2 diabetes mellitus and hypertension who recently discharged from [facility] on daptomycin for polymicrobial bloodstream infection who presents with significant similar complaints of abdominal pain. On [address] abdomen and pelvis without contrast which showed morbid obesity, small hiatal hernia, IVC filter, no definite signs acute disease and abdomen of pelvis. CT abdomen and pelvis with contrast 09/08/2016 show hiatal hernia thickened stomach antrum which could be mild gastritis but no obstruction colitis or enteritis. IVC filter were recognized as well as a hysterectomy. She saw gastroenterology last visit. 1. Acute on chronic respiratory failure- we'll convert to IV steroids and gradually taper. His costal respiratory therapist will give patient a couple to encourage debrided. Continue nebulizer treatment. 2. Recurrent abdominal pains ?etiology, ID is following, seen by GI and they have signed off, repeat C. difficile was negative 3. HIV followed by infectious disease 4. Leukopenia with Bacteremia, switched to Levaquin by mouth. On the previous admission, chest showed-MRSA & Staph epidermidis in one set,-The second set with VRE, Staph epidermidis and diptheroids,-Repeat blood cultures negative 5. Type 2 diabetes mellitus: Adjust insulin Anticipate discharge in a.m. if pulmonary status stabilizes DVT and GI prophylaxis History Interval history: Patient seen and examined, continues to have some shortness of breath which she reports is worse today with audible wheezing but denies any chest pain or fever. Hospitalist Physical - Physical exam Narrative exam: VITAL SIGNS: Reviewed. GENERAL: The patient appeared, obese well nourished and normally developed. Vital signs as documented. HEAD: No signs of head trauma. EYES: Pupils are equal. Extraocular motions intact. EARS: Hearing grossly intact. MOUTH: Oropharynx is normal. NECK: No adenopathy, no JVD. CHEST: Chest with diffuse wheezing bilaterally. No, rales, or rhonchi. CARDIAC: Regular rate and rhythm. S1 and S2, without murmurs, gallops, or rubs. VASCULAR: No Edema. Peripheral pulses normal and equal in all extremities. ABDOMEN: Soft, without detectable tenderness. No sign of distention. No rebound or guarding, and no masses palpated. Bowel Sounds normal. MUSCULOSKELETAL: Good range of motion of all major joints. Extremities without clubbing, cyanosis or edema. NEUROLOGIC EXAM: Alert and oriented x 3. No focal sensory or strength deficits. Speech normal. Follows commands. PSYCHIATRIC: Mood normal. SKIN: No rash or lesions. - Constitutional Vitals: Temp Pulse Resp BP Pulse Ox 98.1 F 86 20 140/90 100 09/15/16 15:25 09/15/16 15:25 09/15/16 15:25 09/15/16 15:25 09/15/16 15:25 General appearance: Present: no acute distress, well-nourished Results - Labs CBC & Chem 7: 09/14/16 11:23 09/14/16 04:00 Labs: Laboratory Last Values WBC 3.6 K/mm3 (4.5-11.0) L 09/14/16 11:23 RBC 2.66 M/mm3 (3.65-5.03) L 09/14/16 11:23 Hgb 8.8 gm/dl (10.1-14.3) L 09/14/16 11:23 Hct 26.5 % (30.3-42.9) L 09/14/16 11:23 MCV 100 fl (79-97) H 09/14/16 11:23 MCH 33 pg (28-32) H 09/14/16 11:23 MCHC 33 % (30-34) 09/14/16 11:23 RDW 17.0 % (13.2-15.2) H 09/14/16 11:23 Plt Count 107 K/mm3 (140-440) L 09/14/16 11:23 Lymph % (Auto) Assistant [employer] 09/14/16 01:00 [place] % (Auto) 9.5 % (0.0-7.3) H 09/09/16 07:51 Eos % (Auto) 2.7 % (0.0-4.3) 09/09/16 07:51 Baso % (Auto) 1.0 % (0.0-1.8) 09/09/16 07:51 Lymph # 1.6 K/mm3 (1.2-5.4) 09/09/16 07:51 [place] # 0.3 K/mm3 (0.0-0.8) 09/09/16 07:51 Eos # 0.1 K/mm3 (0.0-0.4) 09/09/16 07:51 Baso # 0.0 K/mm3 (0.0-0.1) 09/09/16 07:51 Add Manual Diff Complete 09/14/16 01:00 Total Counted 100 09/14/16 01:00 Seg Neutrophils % Assistant [employer] 09/14/16 01:00 Seg Neuts % (Manual) 23.0 % (40.0-70.0) L 09/14/16 01:00 Band Neutrophils % 0 % 09/14/16 01:00 Lymphocytes % (Manual) 65.0 % (13.4-35.0) H 09/14/16 01:00 Reactive Lymphs % (Man) 0 % 09/14/16 01:00 Monocytes % (Manual) 12.0 % (0.0-7.3) H 09/14/16 01:00 Eosinophils % (Manual) 0 % (0.0-4.3) 09/14/16 01:00 Basophils % (Manual) 0 % (0.0-1.8) 09/14/16 01:00 Metamyelocytes % 0 % 09/14/16 01:00 Myelocytes % 0 % 09/14/16 01:00 Promyelocytes % 0 % 09/14/16 01:00 Blast Cells % 0 % 09/14/16 01:00 Nucleated RBC % 1.0 % (0.0-0.9) H 09/14/16 01:00 Seg Neutrophils # 1.2 K/mm3 (1.8-7.7) L 09/09/16 07:51 Seg Neutrophils # Man 0.6 K/mm3 (1.8-7.7) L 09/14/16 01:00 Band Neutrophils # 0.0 K/mm3 09/14/16 01:00 Abs Lymphs (Manual) 631 cells/uL (850-3900) L 09/10/16 20:00 Lymphocytes # (Manual) 1.8 K/mm3 (1.2-5.4) 09/14/16 01:00 Abs React Lymphs (Man) 0.0 K/mm3 09/14/16 01:00 Monocytes # (Manual) 0.3 K/mm3 (0.0-0.8) 09/14/16 01:00 Eosinophils # (Manual) 0.0 K/mm3 (0.0-0.4) 09/14/16 01:00 Basophils # (Manual) 0.0 K/mm3 (0.0-0.1) 09/14/16 01:00 Metamyelocytes # 0.0 K/mm3 09/14/16 01:00 Myelocytes # 0.0 K/mm3 09/14/16 01:00 Promyelocytes # 0.0 K/mm3 09/14/16 01:00 Blast Cells # 0.0 K/mm3 09/14/16 01:00 WBC Morphology Not Reportable 09/14/16 01:00 Hypersegmented Neuts Not Reportable 09/14/16 01:00 Hyposegmented Neuts Not Reportable 09/14/16 01:00 Hypogranular Neuts Not Reportable 09/14/16 01:00 Smudge Cells Not Reportable 09/14/16 01:00 Toxic Granulation Not Reportable 09/14/16 01:00 Toxic Vacuolation Not Reportable 09/14/16 01:00 Dohle Bodies Not Reportable 09/14/16 01:00 Pelger-Huet Anomaly Not Reportable 09/14/16 01:00 Susan Rods Not Reportable 09/14/16 01:00 Platelet Estimate Consistent w auto 09/14/16 01:00 Clumped Platelets Not Reportable 09/14/16 01:00 Plt Clumps, EDTA Not Reportable 09/14/16 01:00 Large Platelets Not Reportable 09/14/16 01:00 Giant Platelets Not Reportable 09/14/16 01:00 Platelet Satelliting Not Reportable 09/14/16 01:00 Plt Morphology Comment Not Reportable 09/14/16 01:00 RBC Morphology Not Reportable 09/14/16 01:00 Dimorphic RBCs Not Reportable 09/14/16 01:00 Polychromasia Not Reportable 09/14/16 01:00 Hypochromasia 1+ 09/14/16 01:00 Poikilocytosis Not Reportable 09/14/16 01:00 Anisocytosis 1+ 09/14/16 01:00 Microcytosis Not Reportable 09/14/16 01:00 Macrocytosis Not Reportable 09/14/16 01:00 Spherocytes Not Reportable 09/14/16 01:00 Pappenheimer Bodies Not Reportable 09/14/16 01:00 Sickle Cells Not Reportable 09/14/16 01:00 Target Cells Not Reportable 09/14/16 01:00 Tear Drop Cells Not Reportable 09/14/16 01:00 Ovalocytes Not Reportable 09/14/16 01:00 Helmet Cells Not Reportable 09/14/16 01:00 [place]-Ce[place] Bodies Not Reportable 09/14/16 01:00 [place] Rings Not Reportable 09/14/16 01:00 [place] Cells Not Reportable 09/14/16 01:00 Bite Cells Not Reportable 09/14/16 01:00 Crenated Cell Not Reportable 09/14/16 01:00 Elliptocytes Not Reportable 09/14/16 01:00 Acanthocytes (Spur) Not Reportable 09/14/16 01:00 Rouleaux Not Reportable 09/14/16 01:00 Hemoglobin C Crystals Not Reportable 09/14/16 01:00 Schistocytes Not Reportable 09/14/16 01:00 Malaria parasites Not Reportable 09/14/16 01:00 Barry Bodies Not Reportable 09/14/16 01:00 Hem Pathologist Commnt No 09/14/16 01:00 PT 13.8 Sec. (12.2-14.9) 09/07/16 22:38 INR 1.07 (0.87-1.13) 09/07/16 22:38 Sodium 139 mmol/L (137-145) 09/14/16 04:00 Potassium 3.7 mmol/L (3.6-5.0) 09/14/16 04:00 Chloride 106.3 mmol/L (98-107) 09/14/16 04:00 Carbon Dioxide 19 mmol/L (22-30) L 09/14/16 04:00 Anion Gap 17 mmol/L 09/14/16 04:00 BUN 7 mg/dL (7-17) 09/14/16 04:00 Creatinine 0.9 mg/dL (0.7-1.2) 09/14/16 04:00 Estimated GFR > 60 ml/min 09/14/16 04:00 BUN/Creatinine Ratio 7.77 % 09/14/16 04:00 Glucose 128 mg/dL (65-100) H 09/14/16 04:00 POC Glucose 280 (70-105) H 09/11/16 16:58 Lactic Acid 1.2 mmol/L (0.7-2.0) 09/08/16 09:33 Calcium 7.6 mg/dL (8.4-10.2) L 09/14/16 04:00 Total Creatine Kinase 64 units/L (30-135) 09/08/16 09:33 CK-MB (CK-2) 1.1 ng/mL (0.0-4.0) 09/08/16 09:33 CK-MB (CK-2) Rel Index 1.7 (0-4) 09/08/16 09:33 Troponin T < 0.010 ng/mL (0.00-0.029) 09/08/16 09:33 NT-Pro-B Natriuret Pep 54.21 pg/mL (0-900) 09/07/16 22:38 Lipase 27 units/L (13-60) 09/07/16 12:57 Urine Color Colorless (Yellow) 09/12/16 22:00 Urine Turbidity Clear (Clear) 09/12/16 22:00 Urine pH 5.0 (5.0-7.0) 09/12/16 22:00 Ur Specific [place] 1.005 (1.003-1.030) 09/12/16 22:00 Urine Protein <15 mg/dl mg/dL (Negative) 09/12/16 22:00 Urine Glucose (UA) 50 mg/dL (Negative) 09/12/16 22:00 Urine Ketones Neg mg/dL (Negative) 09/12/16 22:00 Urine Blood Sm (Negative) 09/12/16 22:00 Urine Nitrite Neg (Negative) 09/12/16 22:00 Urine Bilirubin Neg (Negative) 09/12/16 22:00 Urine Urobilinogen < 2.0 mg/dL (<2.0) 09/12/16 22:00 Ur Leukocyte Esterase Neg (Negative) 09/12/16 22:00 Urine WBC (Auto) < 1.0 /HPF (0.0-6.0) 09/12/16 22:00 Urine RBC (Auto) < 1.0 /HPF (0.0-6.0) 09/12/16 22:00 U Epithel Cells (Auto) < 1.0 /HPF (0-13.0) 09/12/16 22:00 Urine Bacteria (Auto) 1+ /HPF (Negative) 09/07/16 22:20 Urine Mucus Few /HPF 09/12/16 22:00 Urine Opiates Screen Presumptive negative 09/07/16 22:20 Urine Methadone Screen Presumptive negative 09/07/16 22:20 Ur Barbiturates Screen Presumptive negative 09/07/16 22:20 Ur Phencyclidine Scrn Presumptive negative 09/07/16 22:20 Ur Amphetamines Screen Presumptive negative 09/07/16 22:20 U Benzodiazepines Scrn Presumptive negative 09/07/16 22:20 Urine Cocaine Screen Presumptive negative 09/07/16 22:20 U Marijuana (THC) Screen Presumptive negative 09/07/16 22:20 Drugs of Abuse Note Disclamer 09/07/16 22:20 Lymph Enumerat CD4/CD8 0.93 (0.86-5.00) 09/10/16 20:00 % CD3 Cells 81 % (57-85) 09/10/16 20:00 Absolute CD3 Count 513 cells/uL (840-3060) L 09/10/16 20:00 % CD4 Cells 41 % (30-61) 09/10/16 20:00 Absolute CD4 Count 256 cells/uL (490-1740) L 09/10/16 20:00 % CD8 Cells 44 % (12-42) H 09/10/16 20:00 Absolute CD8 Count 274 cells/uL (180-1170) 09/10/16 20:00 % CD19 Cells 4 % (6-29) L 09/10/16 20:00 Absolute CD19 Count 24 cells/uL (110-660) L 09/10/16 20:00 HIV-1 RNA PCR copies/ml <20 copies/mL (<20) 09/11/16 07:55 HIV-1 RNA (PCR) log <1.30 Log cps/mL (<1.30) 09/11/16 07:55 - Imaging and Cardiology Chest x-ray: image reviewed
[2016-09-15] MEDS ORDERED: PROVENTIL IH SCH (20:00)
[2016-09-15] MEDS: DILANTIN PO SCH (21:30)
[2016-09-16] MEDS: NACL 0.9% 1000 ML 1,000 ML IV SCH ×2 (01:59→15:09)
[2016-09-16] MEDS: MORPHINE IV PRN ×3 (05:53→20:08)
[2016-09-16] MEDS: BENADRYL IV PRN ×3 (05:54→20:08)
[2016-09-16] MEDS: ZOFRAN IV PRN ×2 (05:54→20:14)
[2016-09-16] MEDS: LEVAQUIN PO SCH (09:32)
[2016-09-16] MEDS: ISENTRESS PO SCH (09:32)
[2016-09-16] MEDS: EMTRIVA PO SCH (09:32)
[2016-09-16] MEDS: VIREAD PO SCH (09:32)
[2016-09-16] MEDS: LOVENOX SUB-Q SCH (09:33)
[2016-09-16] MEDS: DUONEB 0.5 MG-3 MG/3 ML SOLN IH SCH ×3 (10:22→20:53)
--- NOTE | 2016-09-16 10:31 | Progress Note ---
Assessment and Plan Current antibiotics: Levaquin 500 mg PO q day 09/12 --> Previous Antibiotics: Zosyn 4.5 g IV q8h 09/10-09/12 Metronidazole 09/08 Levaquin 09/08 Antiretrovirals: Truvada 1 tab po q day Raltegravir 50 mg po q day Corticosteroids: Solu-Medrol 40 mg IV q8h 09/15 --> ASSESSMENT: Olga Ramirez is a 61 y/o woman with HIV infection (CD4 343) , hypertension, type 2 DM, CHF, asthma, and seizure disorder recently discharged from [facility] on daptomycin for a polymicrobial blood stream infection. She is now presenting with similar complaints including abdominal cramps, diarrhea, nausea, vomiting, fever, cough, shortness of breath and weakness. She said her temperature at home was 102 but here in the hospital she is afebrile. Problem list: 1. Clinical picture of abdominal pain, fevers, nausea, vomiting, diarrhea and shortness of breath. -Abdominal pain is not worse but same as previous admission -C diff assay negative -CT of chest without abnormalities, CT scan of abdomen without bowel pathology 2. Increasing shortness of breath -Increased wheezing -Exacerbation of asthmatic bronchitis 3. Leukopenia -Suspect related to underlying HIV 4. Complaints of diarrhea -None substantiated -C diff assay negative on 09/08/16 5. HIV -CD4 256 and viral load < 20 -On anti-retroviral therapy 6. Status post polymicrobial blood stream infection -MRSA & Staph epidermidis in one set -The second set with VRE, Staph epidermidis and diptheroids -Repeat blood cultures negative -Finished course of antibiotics 7. Fevers -Unclear source -Blood cultures negative, CT scan of chest and abdomen without abnormalities. Temperature high of 103 on 09/10. Afebrile so far today PLAN: 1. Treatment of worsening bronchospasm as per the hospitalist team. Now on corticosteroids. 2. Continue anti-retroviral therapy Truvada (tenofovir, emtriva) and Isentress 3. Continue Levaquin but can change to po since she is now swallowing well 4. Continue contact isolation for MRSA history Loco Jain MD [facility] Office: [phone] Subjective Date of service: 09/16/16 Principal diagnosis: Abd pain, loose BM's, fever Interval history: Breathing somewhat better but still is wheezing. Still has her chronic complaints of abdominal pain and on and off diarrhea. ROS: No subjective fever or chills. No nausea or vomiting. No shortness of breath, cough or pleuritic chest pain Objective - Exam Narrative Exam: GENERAL: Well-developed, obese, female who is alert and in mild respiratory distress with audible wheezing. Still somewhat anxious. HEAD: Normocephalic. No lesions seen. EYES: Pupils are equal reactive to light and accommodation. There is no scleral icterus. Optic fundi are not examined. EARS: Tympanic membranes are normal. THROAT: Oropharynx is normal with no evidence of oral candidiasis or pharyngitis. NECK: Supple. No enlargement of the thyroid gland. No significant cervical lymphadenopathy. No jugular venous distention at 30. LUNGS: Diffuse, bilateral inspiratory and expiratory wheezes throughout but somewhat improved as compared to yesterday.. No other adventitious sounds heard. HEART: Regular rate. S1 and S2 are normal. There are no murmurs, gallops, clicks or rubs heard. ABDOMEN: Soft and nontender. Liver and spleen are not palpably enlarged or tender. No palpable masses. Bowel sounds are normoactive. EXTREMITIES: No rash, peripheral lymphadenopathy, clubbing or edema. : Not examined NEUROLOGIC: No focal findings. - Constitutional Vitals: Vital Signs Temp Pulse Resp BP Pulse Ox 98.1 F 98 H 20 141/73 99 09/16/16 08:49 09/16/16 10:22 09/16/16 10:22 09/16/16 08:49 09/16/16 08:49 Temperature -Last 24 Hours Temperature 98.1 F Temperature 98.0 F Temperature 98.0 F Temperature 98.1 F Temperature 98.2 F - Labs CBC & Chem 7: 09/14/16 11:23 09/14/16 04:00 Labs: Microbiology Laboratory Tests 09/10/16 09/11/16 20:00 07:55 % CD4 Cells 41 Absolute CD4 Count 256 L HIV-1 RNA PCR copies/ml <20 09/12/16 22:00 Urine,Clean Catch Urine Culture - Preliminary NO GROWTH AFTER 24 HOURS 09/10/16 07:55 Peripheral/Venous Blood Culture - Preliminary NO GROWTH AFTER 72 HOURS 09/10/16 19:00 Peripheral/Venous Blood Culture - Preliminary NO GROWTH AFTER 72 HOURS 09/07/16 22:38 Peripheral/Venous Blood Culture - Final NO GROWTH AFTER 5 DAYS 09/07/16 00:00 Peripheral/Venous Blood Culture - Final NO GROWTH AFTER 5 DAYS 09/08/16 Unknown Urine,Clean Catch Urine Culture - Final 09/08/16 Unknown Stool Stool Culture - No enteric pathogens 09/08/16 Unknown Stool C. difficile DNA Amplification - Negative 09/08/16 Unknown Stool Stool for WBCs - Final NEGATIVE 09/07/16 23:44 Nasopharyngeal Swab Influenza Types A,B Antigen (ANIBAL) - Negative Imagin/26 CXR: Normal
[2016-09-16] MEDS: LOMOTIL PO PRN (11:10)
--- NOTE | 2016-09-16 13:15 | Progress Note ---
Assessment and Plan Assessment and plan: Patient is a 61-year-old woman history of HIV, seizure disorder, C. difficile, type 2 diabetes mellitus and hypertension who recently discharged from [facility] on daptomycin for polymicrobial bloodstream infection who presents with significant similar complaints of abdominal pain. On [address] abdomen and pelvis without contrast which showed morbid obesity, small hiatal hernia, IVC filter, no definite signs acute disease and abdomen of pelvis. CT abdomen and pelvis with contrast 09/08/2016 show hiatal hernia thickened stomach antrum which could be mild gastritis but no obstruction colitis or enteritis. IVC filter were recognized as well as a hysterectomy. She saw gastroenterology last visit. 1. Acute on chronic respiratory failure-continue IV steroids. His costal respiratory therapist will give patient a couple to encourage debrided. Continue nebulizer treatment. 2. Recurrent abdominal pains ?etiology, ID is following, seen by GI and they have signed off, repeat C. difficile was negative 3. HIV followed by infectious disease 4. Leukopenia with Bacteremia, switched to Levaquin by mouth. On the previous admission, chest showed-MRSA & Staph epidermidis in one set,-The second set with VRE, Staph epidermidis and diptheroids,-Repeat blood cultures negative 5. Type 2 diabetes mellitus: Adjust insulin 6. Metabolic acidosis-stable continue to monitor Anticipate discharge in a.m. if pulmonary status stabilizes DVT and GI prophylaxis History Interval history: Patient seen and examined, continues to have some shortness of breath improved and today not as audible wheezing as noted yesterday. Denies any chest pain or fever. No other adverse events reported by nursing staff Hospitalist Physical - Physical exam Narrative exam: VITAL SIGNS: Reviewed. GENERAL: The patient appeared, obese well nourished and normally developed. Vital signs as documented. HEAD: No signs of head trauma. EYES: Pupils are equal. Extraocular motions intact. EARS: Hearing grossly intact. MOUTH: Oropharynx is normal. NECK: No adenopathy, no JVD. CHEST: Chest with diffuse wheezing bilaterally. No, rales, or rhonchi. CARDIAC: Regular rate and rhythm. S1 and S2, without murmurs, gallops, or rubs. VASCULAR: No Edema. Peripheral pulses normal and equal in all extremities. ABDOMEN: Soft, without detectable tenderness. No sign of distention. No rebound or guarding, and no masses palpated. Bowel Sounds normal. MUSCULOSKELETAL: Good range of motion of all major joints. Extremities without clubbing, cyanosis or edema. NEUROLOGIC EXAM: Alert and oriented x 3. No focal sensory or strength deficits. Speech normal. Follows commands. PSYCHIATRIC: Mood normal. SKIN: No rash or lesions. - Constitutional Vitals: Temp Pulse Resp BP Pulse Ox 98.1 F 89 20 141/73 99 09/16/16 08:49 09/16/16 10:33 09/16/16 10:33 09/16/16 08:49 09/16/16 08:49 General appearance: Present: no acute distress, well-nourished Results - Labs CBC & Chem 7: 09/14/16 11:23 09/14/16 04:00 Labs: Laboratory Last Values WBC 3.6 K/mm3 (4.5-11.0) L 09/14/16 11:23 RBC 2.66 M/mm3 (3.65-5.03) L 09/14/16 11:23 Hgb 8.8 gm/dl (10.1-14.3) L 09/14/16 11:23 Hct 26.5 % (30.3-42.9) L 09/14/16 11:23 MCV 100 fl (79-97) H 09/14/16 11:23 MCH 33 pg (28-32) H 09/14/16 11:23 MCHC 33 % (30-34) 09/14/16 11:23 RDW 17.0 % (13.2-15.2) H 09/14/16 11:23 Plt Count 107 K/mm3 (140-440) L 09/14/16 11:23 Lymph % (Auto) Flare Maker 09/14/16 01:00 [place] % (Auto) 9.5 % (0.0-7.3) H 09/09/16 07:51 Eos % (Auto) 2.7 % (0.0-4.3) 09/09/16 07:51 Baso % (Auto) 1.0 % (0.0-1.8) 09/09/16 07:51 Lymph # 1.6 K/mm3 (1.2-5.4) 09/09/16 07:51 [place] # 0.3 K/mm3 (0.0-0.8) 09/09/16 07:51 Eos # 0.1 K/mm3 (0.0-0.4) 09/09/16 07:51 Baso # 0.0 K/mm3 (0.0-0.1) 09/09/16 07:51 Add Manual Diff Complete 09/14/16 01:00 Total Counted 100 09/14/16 01:00 Seg Neutrophils % Flare Maker 09/14/16 01:00 Seg Neuts % (Manual) 23.0 % (40.0-70.0) L 09/14/16 01:00 Band Neutrophils % 0 % 09/14/16 01:00 Lymphocytes % (Manual) 65.0 % (13.4-35.0) H 09/14/16 01:00 Reactive Lymphs % (Man) 0 % 09/14/16 01:00 Monocytes % (Manual) 12.0 % (0.0-7.3) H 09/14/16 01:00 Eosinophils % (Manual) 0 % (0.0-4.3) 09/14/16 01:00 Basophils % (Manual) 0 % (0.0-1.8) 09/14/16 01:00 Metamyelocytes % 0 % 09/14/16 01:00 Myelocytes % 0 % 09/14/16 01:00 Promyelocytes % 0 % 09/14/16 01:00 Blast Cells % 0 % 09/14/16 01:00 Nucleated RBC % 1.0 % (0.0-0.9) H 09/14/16 01:00 Seg Neutrophils # 1.2 K/mm3 (1.8-7.7) L 09/09/16 07:51 Seg Neutrophils # Man 0.6 K/mm3 (1.8-7.7) L 09/14/16 01:00 Band Neutrophils # 0.0 K/mm3 09/14/16 01:00 Abs Lymphs (Manual) 631 cells/uL (850-3900) L 09/10/16 20:00 Lymphocytes # (Manual) 1.8 K/mm3 (1.2-5.4) 09/14/16 01:00 Abs React Lymphs (Man) 0.0 K/mm3 09/14/16 01:00 Monocytes # (Manual) 0.3 K/mm3 (0.0-0.8) 09/14/16 01:00 Eosinophils # (Manual) 0.0 K/mm3 (0.0-0.4) 09/14/16 01:00 Basophils # (Manual) 0.0 K/mm3 (0.0-0.1) 09/14/16 01:00 Metamyelocytes # 0.0 K/mm3 09/14/16 01:00 Myelocytes # 0.0 K/mm3 09/14/16 01:00 Promyelocytes # 0.0 K/mm3 09/14/16 01:00 Blast Cells # 0.0 K/mm3 09/14/16 01:00 WBC Morphology Not Reportable 09/14/16 01:00 Hypersegmented Neuts Not Reportable 09/14/16 01:00 Hyposegmented Neuts Not Reportable 09/14/16 01:00 Hypogranular Neuts Not Reportable 09/14/16 01:00 Smudge Cells Not Reportable 09/14/16 01:00 Toxic Granulation Not Reportable 09/14/16 01:00 Toxic Vacuolation Not Reportable 09/14/16 01:00 Dohle Bodies Not Reportable 09/14/16 01:00 Pelger-Huet Anomaly Not Reportable 09/14/16 01:00 Susan Rods Not Reportable 09/14/16 01:00 Platelet Estimate Consistent w auto 09/14/16 01:00 Clumped Platelets Not Reportable 09/14/16 01:00 Plt Clumps, EDTA Not Reportable 09/14/16 01:00 Large Platelets Not Reportable 09/14/16 01:00 Giant Platelets Not Reportable 09/14/16 01:00 Platelet Satelliting Not Reportable 09/14/16 01:00 Plt Morphology Comment Not Reportable 09/14/16 01:00 RBC Morphology Not Reportable 09/14/16 01:00 Dimorphic RBCs Not Reportable 09/14/16 01:00 Polychromasia Not Reportable 09/14/16 01:00 Hypochromasia 1+ 09/14/16 01:00 Poikilocytosis Not Reportable 09/14/16 01:00 Anisocytosis 1+ 09/14/16 01:00 Microcytosis Not Reportable 09/14/16 01:00 Macrocytosis Not Reportable 09/14/16 01:00 Spherocytes Not Reportable 09/14/16 01:00 Pappenheimer Bodies Not Reportable 09/14/16 01:00 Sickle Cells Not Reportable 09/14/16 01:00 Target Cells Not Reportable 09/14/16 01:00 Tear Drop Cells Not Reportable 09/14/16 01:00 Ovalocytes Not Reportable 09/14/16 01:00 Helmet Cells Not Reportable 09/14/16 01:00 [place] Bodies Not Reportable 09/14/16 01:00 Paton Rings Not Reportable 09/14/16 01:00 Aileen Cells Not Reportable 09/14/16 01:00 Bite Cells Not Reportable 09/14/16 01:00 Crenated Cell Not Reportable 09/14/16 01:00 Elliptocytes Not Reportable 09/14/16 01:00 Acanthocytes (Spur) Not Reportable 09/14/16 01:00 Rouleaux Not Reportable 09/14/16 01:00 Hemoglobin C Crystals Not Reportable 09/14/16 01:00 Schistocytes Not Reportable 09/14/16 01:00 Malaria parasites Not Reportable 09/14/16 01:00 Barry Bodies Not Reportable 09/14/16 01:00 Hem Pathologist Commnt No 09/14/16 01:00 PT 13.8 Sec. (12.2-14.9) 09/07/16 22:38 INR 1.07 (0.87-1.13) 09/07/16 22:38 Sodium 139 mmol/L (137-145) 09/14/16 04:00 Potassium 3.7 mmol/L (3.6-5.0) 09/14/16 04:00 Chloride 106.3 mmol/L (98-107) 09/14/16 04:00 Carbon Dioxide 19 mmol/L (22-30) L 09/14/16 04:00 Anion Gap 17 mmol/L 09/14/16 04:00 BUN 7 mg/dL (7-17) 09/14/16 04:00 Creatinine 0.9 mg/dL (0.7-1.2) 09/14/16 04:00 Estimated GFR > 60 ml/min 09/14/16 04:00 BUN/Creatinine Ratio 7.77 % 09/14/16 04:00 Glucose 128 mg/dL (65-100) H 09/14/16 04:00 POC Glucose 280 (70-105) H 09/11/16 16:58 Lactic Acid 1.2 mmol/L (0.7-2.0) 09/08/16 09:33 Calcium 7.6 mg/dL (8.4-10.2) L 09/14/16 04:00 Total Creatine Kinase 64 units/L (30-135) 09/08/16 09:33 CK-MB (CK-2) 1.1 ng/mL (0.0-4.0) 09/08/16 09:33 CK-MB (CK-2) Rel Index 1.7 (0-4) 09/08/16 09:33 Troponin T < 0.010 ng/mL (0.00-0.029) 09/08/16 09:33 NT-Pro-B Natriuret Pep 54.21 pg/mL (0-900) 09/07/16 22:38 Lipase 27 units/L (13-60) 09/07/16 12:57 Urine Color Colorless (Yellow) 09/12/16 22:00 Urine Turbidity Clear (Clear) 09/12/16 22:00 Urine pH 5.0 (5.0-7.0) 09/12/16 22:00 Ur Specific Carver 1.005 (1.003-1.030) 09/12/16 22:00 Urine Protein <15 mg/dl mg/dL (Negative) 09/12/16 22:00 Urine Glucose (UA) 50 mg/dL (Negative) 09/12/16 22:00 Urine Ketones Neg mg/dL (Negative) 09/12/16 22:00 Urine Blood Sm (Negative) 09/12/16 22:00 Urine Nitrite Neg (Negative) 09/12/16 22:00 Urine Bilirubin Neg (Negative) 09/12/16 22:00 Urine Urobilinogen < 2.0 mg/dL (<2.0) 09/12/16 22:00 Ur Leukocyte Esterase Neg (Negative) 09/12/16 22:00 Urine WBC (Auto) < 1.0 /HPF (0.0-6.0) 09/12/16 22:00 Urine RBC (Auto) < 1.0 /HPF (0.0-6.0) 09/12/16 22:00 U Epithel Cells (Auto) < 1.0 /HPF (0-13.0) 09/12/16 22:00 Urine Bacteria (Auto) 1+ /HPF (Negative) 09/07/16 22:20 Urine Mucus Few /HPF 09/12/16 22:00 Urine Opiates Screen Presumptive negative 09/07/16 22:20 Urine Methadone Screen Presumptive negative 09/07/16 22:20 Ur Barbiturates Screen Presumptive negative 09/07/16 22:20 Ur Phencyclidine Scrn Presumptive negative 09/07/16 22:20 Ur Amphetamines Screen Presumptive negative 09/07/16 22:20 U Benzodiazepines Scrn Presumptive negative 09/07/16 22:20 Urine Cocaine Screen Presumptive negative 09/07/16 22:20 U Marijuana (THC) Screen Presumptive negative 09/07/16 22:20 Drugs of Abuse Note Disclamer 09/07/16 22:20 Lymph Enumerat CD4/CD8 0.93 (0.86-5.00) 09/10/16 20:00 % CD3 Cells 81 % (57-85) 09/10/16 20:00 Absolute CD3 Count 513 cells/uL (840-3060) L 09/10/16 20:00 % CD4 Cells 41 % (30-61) 09/10/16 20:00 Absolute CD4 Count 256 cells/uL (490-1740) L 09/10/16 20:00 % CD8 Cells 44 % (12-42) H 09/10/16 20:00 Absolute CD8 Count 274 cells/uL (180-1170) 09/10/16 20:00 % CD19 Cells 4 % (6-29) L 09/10/16 20:00 Absolute CD19 Count 24 cells/uL (110-660) L 09/10/16 20:00 HIV-1 RNA PCR copies/ml <20 copies/mL (<20) 09/11/16 07:55 HIV-1 RNA (PCR) log <1.30 Log cps/mL (<1.30) 09/11/16 07:55
[2016-09-17] MEDS: ISENTRESS PO SCH ×3 (00:21→22:52)
[2016-09-17] MEDS: NACL 0.9% 1000 ML 1,000 ML IV SCH ×2 (04:44→17:26)
[2016-09-17] MEDS: BENADRYL IV PRN ×4 (05:53→20:55)
[2016-09-17] MEDS: ZOFRAN IV PRN ×3 (05:53→20:57)
[2016-09-17] MEDS: MORPHINE IV PRN ×4 (05:53→20:56)
[2016-09-17] MEDS: LEVAQUIN PO SCH (09:19)
[2016-09-17] MEDS: VIREAD PO SCH (09:24)
[2016-09-17] MEDS: LOVENOX SUB-Q SCH (09:24)
[2016-09-17] MEDS: EMTRIVA PO SCH (09:25)
[2016-09-17] MEDS: DUONEB 0.5 MG-3 MG/3 ML SOLN IH SCH ×3 (09:47→19:12)
--- NOTE | 2016-09-17 10:44 | Progress Note ---
Assessment and Plan Current antibiotics: Levaquin 500 mg PO q day 09/12 --> Previous Antibiotics: Zosyn 4.5 g IV q8h 09/10-09/12 Metronidazole 09/08 Levaquin 09/08 Antiretrovirals: Truvada 1 tab po q day Raltegravir 50 mg po q day Corticosteroids: Solu-Medrol 40 mg IV q8h 09/15 --> ASSESSMENT: Olga Ramirez is a 61 y/o woman with HIV infection (CD4 343) , hypertension, type 2 DM, CHF, asthma, and seizure disorder recently discharged from [facility] on daptomycin for a polymicrobial blood stream infection. She is now presenting with similar complaints including abdominal cramps, diarrhea, nausea, vomiting, fever, cough, shortness of breath and weakness. She said her temperature at home was 102 but here in the hospital she is afebrile. Problem list: 1. Clinical picture of abdominal pain, fevers, nausea, vomiting, diarrhea and shortness of breath. -Abdominal pain is not worse but same as previous admission -C diff assay negative -CT of chest without abnormalities, CT scan of abdomen without bowel pathology 2. Increasing shortness of breath -Increased wheezing -Exacerbation of asthmatic bronchitis 3. Leukopenia -Suspect related to underlying HIV 4. Complaints of diarrhea -None substantiated -C diff assay negative on 09/08/16 5. HIV -CD4 256 and viral load < 20 -On anti-retroviral therapy 6. Status post polymicrobial blood stream infection -MRSA & Staph epidermidis in one set -The second set with VRE, Staph epidermidis and diptheroids -Repeat blood cultures negative -Finished course of antibiotics 7. Fevers -Unclear source -Blood cultures negative, CT scan of chest and abdomen without abnormalities. Temperature high of 103 on 09/10. Afebrile so far today PLAN: 1. Treatment of worsening bronchospasm as per the hospitalist team. Now on corticosteroids. Discussed pulmonary evaluation with Dr. Randhawa. 2. Continue anti-retroviral therapy Truvada (tenofovir, emtriva) and Isentress 3. She states that she would like to come see us in the office for her HIV care and I told her that would be fine. 4. Continue po Levaquin 5. Continue contact isolation for MRSA history Loco Jain MD [facility] Office: [phone] Subjective Date of service: 09/17/16 Principal diagnosis: Abd pain, loose BM's, fever Interval history: States that her wheezing "isn't any better." No new complaints. ROS: No subjective fever or chills. No nausea or vomiting. Objective - Exam Narrative Exam: GENERAL: Well-developed, obese, female who is alert and in mild respiratory distress with audible wheezing. Still somewhat anxious. HEAD: Normocephalic. No lesions seen. EYES: Pupils are equal reactive to light and accommodation. There is no scleral icterus. Optic fundi are not examined. EARS: Tympanic membranes are normal. THROAT: Oropharynx is normal with no evidence of oral candidiasis or pharyngitis. NECK: Supple. No enlargement of the thyroid gland. No significant cervical lymphadenopathy. No jugular venous distention at 30. LUNGS: Diffuse, bilateral inspiratory and expiratory wheezes throughout but somewhat improved as compared to yesterday.. No other adventitious sounds heard. HEART: Regular rate. S1 and S2 are normal. There are no murmurs, gallops, clicks or rubs heard. ABDOMEN: Soft and nontender. Liver and spleen are not palpably enlarged or tender. No palpable masses. Bowel sounds are normoactive. EXTREMITIES: No rash, peripheral lymphadenopathy, clubbing or edema. : Not examined NEUROLOGIC: No focal findings. - Constitutional Vitals: Vital Signs Temp Pulse Resp BP Pulse Ox 98.6 F 84 24 161/89 99 09/17/16 07:32 09/17/16 09:58 09/17/16 09:58 09/17/16 07:32 09/17/16 07:32 Temperature -Last 24 Hours Temperature 98.6 F Temperature 98.4 F Temperature 97.6 F - Labs CBC & Chem 7: 09/14/16 11:23 09/14/16 04:00 Labs: Laboratory Tests 09/10/16 09/11/16 20:00 07:55 % CD4 Cells 41 Absolute CD4 Count 256 L HIV-1 RNA PCR copies/ml <20 09/12/16 22:00 Urine,Clean Catch Urine Culture - Preliminary NO GROWTH AFTER 24 HOURS 09/10/16 07:55 Peripheral/Venous Blood Culture - Preliminary NO GROWTH AFTER 72 HOURS 09/10/16 19:00 Peripheral/Venous Blood Culture - Preliminary NO GROWTH AFTER 72 HOURS 09/07/16 22:38 Peripheral/Venous Blood Culture - Final NO GROWTH AFTER 5 DAYS 09/07/16 00:00 Peripheral/Venous Blood Culture - Final NO GROWTH AFTER 5 DAYS 09/08/16 Unknown Urine,Clean Catch Urine Culture - Final 09/08/16 Unknown Stool Stool Culture - No enteric pathogens 09/08/16 Unknown Stool C. difficile DNA Amplification - Negative 09/08/16 Unknown Stool Stool for WBCs - Final NEGATIVE 09/07/16 23:44 Nasopharyngeal Swab Influenza Types A,B Antigen (ANIBAL) - Negative Imagin/26 CXR: Normal
--- NOTE | 2016-09-17 12:23 | Consultation ---
History of Present Illness Consult date: 09/17/16 Requesting physician: MILLY HOGAN Reason for consult: other (Asthma Exacerbation) History of present illness: PULMONARY CONSULT NOTE (Full dictation # [id number]) Please see dictated notes for full details Past History Past Medical History: HIV/AIDS, seizures, other (asthma) Past Surgical History: No surgical history Social history: no significant social history Family history: no significant family history Medications and Allergies Allergies Allergy/AdvReac Type Severity Reaction Status Date / Time ibuprofen [From Motrin] Allergy Shortness Verified 08/10/16 03:25 of Breath shrimp Allergy Shortness Verified 09/07/16 11:57 of Breath tetracycline Allergy Shortness Verified 08/10/16 03:25 of Breath Home Medications Medication Instructions Recorded Confirmed Last Taken Type Albuterol Sulfate [Albuterol 0.63% 3 ml IH BID 08/10/16 09/07/16 Unknown History NEBS] Furosemide [Lasix TAB] 20 mg PO DAILY 08/10/16 09/07/16 Unknown History Phenytoin (25 mg/ml) [Dilantin] 300 mg PO QHS 08/10/16 09/07/16 Unknown History Raltegravir Potassium [Isentress] 400 mg PO BID 08/10/16 09/07/16 Unknown History Lantus VIAL 9 units SQ DAILY 09/08/16 09/15/16 Unknown History SEROquel 100 mg BID 09/08/16 09/08/16 Unknown History Insulin Glargine [Lantus VIAL] 24 units SC HS 09/09/16 09/09/16 Unknown History NovoLOG Flexpen 9 units SC DAILY 09/09/16 09/09/16 Unknown History Active Meds: Active Medications Acetaminophen (Tylenol) 650 mg PO Q4H PRN PRN Reason: Pain MILD(1-3)/Fever >100.5/MOYER Last Admin: 09/11/16 11:56 Dose: 650 mg Acetaminophen/Hydrocodone Bitart (Roberta 5/325) 2 each PO Q6H PRN PRN Reason: Pain, Moderate (4-6) Last Admin: 09/10/16 04:00 Dose: 2 each Albuterol/Ipratropium (Duoneb 0.5 Mg-3 Mg/3 Ml Soln) 1 ampul IH TIDRT SKYLER Last Admin: 09/17/16 09:47 Dose: 1 ampul Bisacodyl (Dulcolax) 10 mg VA QDAY PRN PRN Reason: Constipation unrelieved by MOM Diphenhydramine HCl (Benadryl) 25 mg IV Q4H PRN PRN Reason: Itching Last Admin: 09/17/16 09:20 Dose: 25 mg Diphenoxylate HCl/Atropine (Lomotil) 1 tab PO Q8H PRN PRN Reason: Diarrhea Last Admin: 09/16/16 11:10 Dose: 1 tab Emtricitabine (Emtriva) 200 mg PO QDAY [facility] Last Admin: 09/17/16 09:25 Dose: 200 mg Enoxaparin Sodium (Lovenox) 40 mg SUB-Q QDAY [facility] Last Admin: 09/17/16 09:24 Dose: 40 mg Sodium Chloride (Nacl 0.9% 1000 Ml) 1,000 mls @ 75 mls/hr IV DIRECT [facility] Last Admin: 09/17/16 04:44 Dose: 75 mls/hr Levofloxacin (Levaquin) 500 mg PO Q24HR [facility] Last Admin: 09/17/16 09:19 Dose: 500 mg Magnesium Hydroxide (Milk Of Magnesia) 30 ml PO Q4H PRN PRN Reason: Constipation Methylprednisolone Sodium Succinate (Solu-Medrol) 40 mg IV Q8HR [facility] Last Admin: 09/17/16 05:53 Dose: 40 mg Morphine Sulfate (Morphine) 2 mg IV Q4H PRN PRN Reason: Pain, Moderate (4-6) Last Admin: 09/17/16 09:24 Dose: 2 mg Ondansetron HCl (Zofran) 4 mg IV Q8H PRN PRN Reason: N/V unrelieved by Reglan Last Admin: 09/17/16 05:53 Dose: 4 mg Phenytoin (Dilantin) 300 mg PO QHS [facility] Last Admin: 09/17/16 00:00 Dose: 300 mg Pseudoephedrine/Acetam/Chlorphenir (Robitussin Ac) 10 ml PO Q6H PRN PRN Reason: Cough Last Admin: 09/13/16 21:21 Dose: 10 ml Quetiapine Fumarate (Seroquel) 50 mg PO BID [facility] Last Admin: 09/17/16 09:24 Dose: 50 mg Raltegravir (Isentress) 400 mg PO BID [facility] Last Admin: 09/17/16 09:25 Dose: 400 mg Tenofovir Disoproxil Fumarate (Viread) 300 mg PO QDAY [facility] Last Admin: 09/17/16 09:24 Dose: 300 mg Physical Examination Vital signs: Vital Signs Temp Pulse Resp BP Pulse Ox 98.3 F 96 H 20 134/102 100 09/07/16 11:57 09/07/16 11:57 09/07/16 11:57 09/07/16 11:57 09/07/16 11:57 Results - Laboratory Findings CBC and BMP: 09/14/16 11:23 09/14/16 04:00 PT/INR, D-dimer PT 13.8 Sec. (12.2-14.9) 09/07/16 22:38 INR 1.07 (0.87-1.13) 09/07/16 22:38 Abnormal lab findings: Abnormal Labs 09/08/16 09/09/16 09/09/16 21:09 06:15 07:51 WBC 3.2 L RBC 3.29 L Hgb Hct MCV 98 H D MCH RDW 16.8 H Plt Count Lymph % (Auto) 50.9 H [place] % (Auto) 9.5 H Seg Neutrophils % 35.9 L Seg Neuts % (Manual) Lymphocytes % (Manual) Monocytes % (Manual) Nucleated RBC % Seg Neutrophils # 1.2 L Seg Neutrophils # Man Abs Lymphs (Manual) Chloride Carbon Dioxide Glucose POC Glucose 167 H 172 H Calcium Absolute CD3 Count Absolute CD4 Count % CD8 Cells % CD19 Cells Absolute CD19 Count 09/09/16 09/09/16 09/09/16 09:34 10:45 21:09 WBC RBC Hgb Hct MCV MCH RDW Plt Count Lymph % (Auto) [place] % (Auto) Seg Neutrophils % Seg Neuts % (Manual) Lymphocytes % (Manual) Monocytes % (Manual) Nucleated RBC % Seg Neutrophils # Seg Neutrophils # Man Abs Lymphs (Manual) Chloride 110.9 H Carbon Dioxide 20 L Glucose 150 H POC Glucose 150 H 141 H Calcium 8.1 L Absolute CD3 Count Absolute CD4 Count % CD8 Cells % CD19 Cells Absolute CD19 Count 09/10/16 09/10/16 09/10/16 12:07 17:10 20:00 WBC RBC Hgb Hct MCV MCH RDW Plt Count Lymph % (Auto) [place] % (Auto) Seg Neutrophils % Seg Neuts % (Manual) Lymphocytes % (Manual) Monocytes % (Manual) Nucleated RBC % Seg Neutrophils # Seg Neutrophils # Man Abs Lymphs (Manual) 631 L Chloride Carbon Dioxide Glucose POC Glucose 187 H 153 H Calcium Absolute CD3 Count 513 L Absolute CD4 Count 256 L % CD8 Cells 44 H % CD19 Cells 4 L Absolute CD19 Count 24 L 09/11/16 09/11/16 09/11/16 06:31 12:11 16:58 WBC RBC Hgb Hct MCV MCH RDW Plt Count Lymph % (Auto) [place] % (Auto) Seg Neutrophils % Seg Neuts % (Manual) Lymphocytes % (Manual) Monocytes % (Manual) Nucleated RBC % Seg Neutrophils # Seg Neutrophils # Man Abs Lymphs (Manual) Chloride Carbon Dioxide Glucose POC Glucose 109 H 115 H 280 H Calcium Absolute CD3 Count Absolute CD4 Count % CD8 Cells % CD19 Cells Absolute CD19 Count 09/14/16 09/14/16 09/14/16 01:00 04:00 11:23 WBC 2.8 L 3.6 L RBC 2.81 L 2.66 L Hgb 9.0 L 8.8 L Hct 27.8 L 26.5 L MCV 99 H 100 H MCH 33 H RDW 17.1 H 17.0 H Plt Count 136 L 107 L Lymph % (Auto) [place] % (Auto) Seg Neutrophils % Seg Neuts % (Manual) 23.0 L Lymphocytes % (Manual) 65.0 H Monocytes % (Manual) 12.0 H Nucleated RBC % 1.0 H Seg Neutrophils # Seg Neutrophils # Man 0.6 L Abs Lymphs (Manual) Chloride Carbon Dioxide 19 L Glucose 128 H POC Glucose Calcium 7.6 L Absolute CD3 Count Absolute CD4 Count % CD8 Cells % CD19 Cells Absolute CD19 Count
[2016-09-17] MEDS ORDERED: MAGNESIUM SULFATE IV ONE (15:28)
--- NOTE | 2016-09-17 15:32 | Progress Note ---
Assessment and Plan Assessment and plan: Patient is a 61-year-old woman history of HIV, seizure disorder, C. difficile, type 2 diabetes mellitus and hypertension who recently discharged from [facility] on daptomycin for polymicrobial bloodstream infection who presents with significant similar complaints of abdominal pain. On [address] abdomen and pelvis without contrast which showed morbid obesity, small hiatal hernia, IVC filter, no definite signs acute disease and abdomen of pelvis. CT abdomen and pelvis with contrast 09/08/2016 show hiatal hernia thickened stomach antrum which could be mild gastritis but no obstruction colitis or enteritis. IVC filter were recognized as well as a hysterectomy. She saw gastroenterology last visit. 1. Acute on chronic respiratory failure-continue IV steroids. We'll proceed with Pulmonary evaluation considering non resolution of illness process. Continue nebulizer treatment. 2. Asthma exacerbation- As noted above 3. Recurrent abdominal pains ?etiology, ID is following, seen by GI and they have signed off, repeat C. difficile was negative 4. HIV followed by infectious disease- continue ARTs 5. Leukopenia with Bacteremia, switched to Levaquin by mouth. On the previous admission, chest showed-MRSA & Staph epidermidis in one set,-The second set with VRE, Staph epidermidis and diptheroids,-Repeat blood cultures negative 6. Type 2 diabetes mellitus: Adjust insulin 7. Metabolic acidosis-stable continue to monitor DVT and GI prophylaxis History Interval history: Patient seen and examined, continues to have some shortness of breath worse with ambulation. Still with persistent cough nonproductive. Denies any chest pain or fever. No other adverse events reported by nursing staff Hospitalist Physical - Physical exam Narrative exam: VITAL SIGNS: Reviewed. GENERAL: The patient appeared, obese well nourished and normally developed. Vital signs as documented. HEAD: No signs of head trauma. EYES: Pupils are equal. Extraocular motions intact. EARS: Hearing grossly intact. MOUTH: Oropharynx is normal. NECK: No adenopathy, no JVD. CHEST: Chest with diffuse wheezing bilaterally. No, rales, or rhonchi. CARDIAC: Regular rate and rhythm. S1 and S2, without murmurs, gallops, or rubs. VASCULAR: No Edema. Peripheral pulses normal and equal in all extremities. ABDOMEN: Soft, without detectable tenderness. No sign of distention. No rebound or guarding, and no masses palpated. Bowel Sounds normal. MUSCULOSKELETAL: Good range of motion of all major joints. Extremities without clubbing, cyanosis or edema. NEUROLOGIC EXAM: Alert and oriented x 3. No focal sensory or strength deficits. Speech normal. Follows commands. PSYCHIATRIC: Mood normal. SKIN: No rash or lesions. - Constitutional Vitals: Temp Pulse Resp BP Pulse Ox 98.3 F 93 H 16 130/69 98 09/17/16 14:45 09/17/16 14:45 09/17/16 14:45 09/17/16 14:45 09/17/16 14:45 General appearance: Present: no acute distress, well-nourished Results - Labs CBC & Chem 7: 09/14/16 11:23 09/14/16 04:00 Labs: Laboratory Last Values WBC 3.6 K/mm3 (4.5-11.0) L 09/14/16 11:23 RBC 2.66 M/mm3 (3.65-5.03) L 09/14/16 11:23 Hgb 8.8 gm/dl (10.1-14.3) L 09/14/16 11:23 Hct 26.5 % (30.3-42.9) L 09/14/16 11:23 MCV 100 fl (79-97) H 09/14/16 11:23 MCH 33 pg (28-32) H 09/14/16 11:23 MCHC 33 % (30-34) 09/14/16 11:23 RDW 17.0 % (13.2-15.2) H 09/14/16 11:23 Plt Count 107 K/mm3 (140-440) L 09/14/16 11:23 Lymph % (Auto) Help Desk Associate 09/14/16 01:00 Levy % (Auto) 9.5 % (0.0-7.3) H 09/09/16 07:51 Eos % (Auto) 2.7 % (0.0-4.3) 09/09/16 07:51 Baso % (Auto) 1.0 % (0.0-1.8) 09/09/16 07:51 Lymph # 1.6 K/mm3 (1.2-5.4) 09/09/16 07:51 Levy # 0.3 K/mm3 (0.0-0.8) 09/09/16 07:51 Eos # 0.1 K/mm3 (0.0-0.4) 09/09/16 07:51 Baso # 0.0 K/mm3 (0.0-0.1) 09/09/16 07:51 Add Manual Diff Complete 09/14/16 01:00 Total Counted 100 09/14/16 01:00 Seg Neutrophils % Help Desk Associate 09/14/16 01:00 Seg Neuts % (Manual) 23.0 % (40.0-70.0) L 09/14/16 01:00 Band Neutrophils % 0 % 09/14/16 01:00 Lymphocytes % (Manual) 65.0 % (13.4-35.0) H 09/14/16 01:00 Reactive Lymphs % (Man) 0 % 09/14/16 01:00 Monocytes % (Manual) 12.0 % (0.0-7.3) H 09/14/16 01:00 Eosinophils % (Manual) 0 % (0.0-4.3) 09/14/16 01:00 Basophils % (Manual) 0 % (0.0-1.8) 09/14/16 01:00 Metamyelocytes % 0 % 09/14/16 01:00 Myelocytes % 0 % 09/14/16 01:00 Promyelocytes % 0 % 09/14/16 01:00 Blast Cells % 0 % 09/14/16 01:00 Nucleated RBC % 1.0 % (0.0-0.9) H 09/14/16 01:00 Seg Neutrophils # 1.2 K/mm3 (1.8-7.7) L 09/09/16 07:51 Seg Neutrophils # Man 0.6 K/mm3 (1.8-7.7) L 09/14/16 01:00 Band Neutrophils # 0.0 K/mm3 09/14/16 01:00 Abs Lymphs (Manual) 631 cells/uL (850-3900) L 09/10/16 20:00 Lymphocytes # (Manual) 1.8 K/mm3 (1.2-5.4) 09/14/16 01:00 Abs React Lymphs (Man) 0.0 K/mm3 09/14/16 01:00 Monocytes # (Manual) 0.3 K/mm3 (0.0-0.8) 09/14/16 01:00 Eosinophils # (Manual) 0.0 K/mm3 (0.0-0.4) 09/14/16 01:00 Basophils # (Manual) 0.0 K/mm3 (0.0-0.1) 09/14/16 01:00 Metamyelocytes # 0.0 K/mm3 09/14/16 01:00 Myelocytes # 0.0 K/mm3 09/14/16 01:00 Promyelocytes # 0.0 K/mm3 09/14/16 01:00 Blast Cells # 0.0 K/mm3 09/14/16 01:00 WBC Morphology Not Reportable 09/14/16 01:00 Hypersegmented Neuts Not Reportable 09/14/16 01:00 Hyposegmented Neuts Not Reportable 09/14/16 01:00 Hypogranular Neuts Not Reportable 09/14/16 01:00 Smudge Cells Not Reportable 09/14/16 01:00 Toxic Granulation Not Reportable 09/14/16 01:00 Toxic Vacuolation Not Reportable 09/14/16 01:00 Dohle Bodies Not Reportable 09/14/16 01:00 Pelger-Huet Anomaly Not Reportable 09/14/16 01:00 Susan Rods Not Reportable 09/14/16 01:00 Platelet Estimate Consistent w auto 09/14/16 01:00 Clumped Platelets Not Reportable 09/14/16 01:00 Plt Clumps, EDTA Not Reportable 09/14/16 01:00 Large Platelets Not Reportable 09/14/16 01:00 Giant Platelets Not Reportable 09/14/16 01:00 Platelet Satelliting Not Reportable 09/14/16 01:00 Plt Morphology Comment Not Reportable 09/14/16 01:00 RBC Morphology Not Reportable 09/14/16 01:00 Dimorphic RBCs Not Reportable 09/14/16 01:00 Polychromasia Not Reportable 09/14/16 01:00 Hypochromasia 1+ 09/14/16 01:00 Poikilocytosis Not Reportable 09/14/16 01:00 Anisocytosis 1+ 09/14/16 01:00 Microcytosis Not Reportable 09/14/16 01:00 Macrocytosis Not Reportable 09/14/16 01:00 Spherocytes Not Reportable 09/14/16 01:00 Pappenheimer Bodies Not Reportable 09/14/16 01:00 Sickle Cells Not Reportable 09/14/16 01:00 Target Cells Not Reportable 09/14/16 01:00 Tear Drop Cells Not Reportable 09/14/16 01:00 Ovalocytes Not Reportable 09/14/16 01:00 Helmet Cells Not Reportable 09/14/16 01:00 [place] Bodies Not Reportable 09/14/16 01:00 [place] Rings Not Reportable 09/14/16 01:00 [place] Cells Not Reportable 09/14/16 01:00 Bite Cells Not Reportable 09/14/16 01:00 Crenated Cell Not Reportable 09/14/16 01:00 Elliptocytes Not Reportable 09/14/16 01:00 Acanthocytes (Spur) Not Reportable 09/14/16 01:00 Rouleaux Not Reportable 09/14/16 01:00 Hemoglobin C Crystals Not Reportable 09/14/16 01:00 Schistocytes Not Reportable 09/14/16 01:00 Malaria parasites Not Reportable 09/14/16 01:00 Barry Bodies Not Reportable 09/14/16 01:00 Hem Pathologist Commnt No 09/14/16 01:00 PT 13.8 Sec. (12.2-14.9) 09/07/16 22:38 INR 1.07 (0.87-1.13) 09/07/16 22:38 Sodium 139 mmol/L (137-145) 09/14/16 04:00 Potassium 3.7 mmol/L (3.6-5.0) 09/14/16 04:00 Chloride 106.3 mmol/L (98-107) 09/14/16 04:00 Carbon Dioxide 19 mmol/L (22-30) L 09/14/16 04:00 Anion Gap 17 mmol/L 09/14/16 04:00 BUN 7 mg/dL (7-17) 09/14/16 04:00 Creatinine 0.9 mg/dL (0.7-1.2) 09/14/16 04:00 Estimated GFR > 60 ml/min 09/14/16 04:00 BUN/Creatinine Ratio 7.77 % 09/14/16 04:00 Glucose 128 mg/dL (65-100) H 09/14/16 04:00 POC Glucose 280 (70-105) H 09/11/16 16:58 Lactic Acid 1.2 mmol/L (0.7-2.0) 09/08/16 09:33 Calcium 7.6 mg/dL (8.4-10.2) L 09/14/16 04:00 Total Creatine Kinase 64 units/L (30-135) 09/08/16 09:33 CK-MB (CK-2) 1.1 ng/mL (0.0-4.0) 09/08/16 09:33 CK-MB (CK-2) Rel Index 1.7 (0-4) 09/08/16 09:33 Troponin T < 0.010 ng/mL (0.00-0.029) 09/08/16 09:33 NT-Pro-B Natriuret Pep 54.21 pg/mL (0-900) 09/07/16 22:38 Lipase 27 units/L (13-60) 09/07/16 12:57 Urine Color Colorless (Yellow) 09/12/16 22:00 Urine Turbidity Clear (Clear) 09/12/16 22:00 Urine pH 5.0 (5.0-7.0) 09/12/16 22:00 Ur Specific [place] 1.005 (1.003-1.030) 09/12/16 22:00 Urine Protein <15 mg/dl mg/dL (Negative) 09/12/16 22:00 Urine Glucose (UA) 50 mg/dL (Negative) 09/12/16 22:00 Urine Ketones Neg mg/dL (Negative) 09/12/16 22:00 Urine Blood Sm (Negative) 09/12/16 22:00 Urine Nitrite Neg (Negative) 09/12/16 22:00 Urine Bilirubin Neg (Negative) 09/12/16 22:00 Urine Urobilinogen < 2.0 mg/dL (<2.0) 09/12/16 22:00 Ur Leukocyte Esterase Neg (Negative) 09/12/16 22:00 Urine WBC (Auto) < 1.0 /HPF (0.0-6.0) 09/12/16 22:00 Urine RBC (Auto) < 1.0 /HPF (0.0-6.0) 09/12/16 22:00 U Epithel Cells (Auto) < 1.0 /HPF (0-13.0) 09/12/16 22:00 Urine Bacteria (Auto) 1+ /HPF (Negative) 09/07/16 22:20 Urine Mucus Few /HPF 09/12/16 22:00 Urine Opiates Screen Presumptive negative 09/07/16 22:20 Urine Methadone Screen Presumptive negative 09/07/16 22:20 Ur Barbiturates Screen Presumptive negative 09/07/16 22:20 Ur Phencyclidine Scrn Presumptive negative 09/07/16 22:20 Ur Amphetamines Screen Presumptive negative 09/07/16 22:20 U Benzodiazepines Scrn Presumptive negative 09/07/16 22:20 Urine Cocaine Screen Presumptive negative 09/07/16 22:20 U Marijuana (THC) Screen Presumptive negative 09/07/16 22:20 Drugs of Abuse Note Disclamer 09/07/16 22:20 Lymph Enumerat CD4/CD8 0.93 (0.86-5.00) 09/10/16 20:00 % CD3 Cells 81 % (57-85) 09/10/16 20:00 Absolute CD3 Count 513 cells/uL (840-3060) L 09/10/16 20:00 % CD4 Cells 41 % (30-61) 09/10/16 20:00 Absolute CD4 Count 256 cells/uL (490-1740) L 09/10/16 20:00 % CD8 Cells 44 % (12-42) H 09/10/16 20:00 Absolute CD8 Count 274 cells/uL (180-1170) 09/10/16 20:00 % CD19 Cells 4 % (6-29) L 09/10/16 20:00 Absolute CD19 Count 24 cells/uL (110-660) L 09/10/16 20:00 HIV-1 RNA PCR copies/ml <20 copies/mL (<20) 09/11/16 07:55 HIV-1 RNA (PCR) log <1.30 Log cps/mL (<1.30) 09/11/16 07:55
[2016-09-17] MEDS ORDERED: MAGNESIUM SULFATE 2GM/50ML 50 ML IV SCH (17:00)
[2016-09-17] MEDS: ROBITUSSIN AC PO PRN (20:46)
[2016-09-17] MEDS: DILANTIN PO SCH ×2 (22:51)
--- NOTE | 2016-09-18 01:42 | Consultation ---
CONSULTING PHYSICIAN: Renato Randhawa MD REASON FOR CONSULTATION: Asthma exacerbation. CHIEF COMPLAINT AND HISTORY OF PRESENT ILLNESS: The patient is a 61-year-old -[place] female with past medical history significant amongst other things both for diagnosis really of chronic obstructive lung disease, but also being HIV positive. She presented to the Emergency Room on about the of this month, about 9 days ago, complaining of abdominal pain and diarrhea that had been going on about a couple of days. She had been admitted to the hospital about a month earlier. Her CD4 count last check was 343. She also gave a history of C. diff colitis in the past. She was evaluated and admitted to the hospital with a sepsis syndrome meeting criteria with leukopenia, fever, and hypotension. During the hospitalization, she was found to reportedly have polymicrobial sepsis and Infectious Disease consult was also placed. Today, she was found to be with increased work of breathing, wheezing, and we are asked to assist with management. When I stopped by to see her, she was sitting down, eating food, really pleasant as she usually is. She denied any nausea, vomiting, or overt aspiration prior to coming into the hospital. She states flareup is like it does all the time. She cannot remember if she was short of breath coming into the hospital if she thinks that her symptoms developed during this hospitalization. She denies any cough or expectoration. Denies gross or streaky hemoptysis. Denies fevers or chills. Denies any new onset of leg pain or swelling either unilaterally or bilaterally. She has about a 10+ pack year tobacco smoking history, but she is rather coy today with responding to my question as to whether she still smokes, she says she does but she states she smokes no more than about 1 or 2 sticks whenever she does smoke. That really is as much of the history of presentation as I have. PAST MEDICAL HISTORY: HIV positive, seizure disorder, reported history of asthma, diabetes, hypertension. She is obese. PAST SURGICAL HISTORY: Unknown. MEDICATIONS: She was on at the time I stopped by to see her, according to the medication administration record included the following: Tylenol 650 mg p.o. q.4h. p.r.n. mild pain, [place] 5/325 mg 2 tablets p.o. q.6h. p.r.n. moderate pain, DuoNeb treatments nebulized t.i.d., Dulcolax p.r.n., p.r.n. Benadryl, p.r.n. Lomotil, Emtriva 200 mg p.o. daily, Lovenox 40 mg subcutaneous daily, Levaquin 500 mg p.o. daily, p.r.n. milk of magnesia. She received 2 grams of magnesium replacement x 1 today. She is on Solu-Medrol 40 mg IV q.8h. and Zofran 4 mg IV q.8h. p.r.n. She is on Dilantin 300 mg p.o. at bedtime, Robitussin-AC 10 mg p.o. q.4h. p.r.n. cough, Seroquel 50 mg p.o. b.i.d., raltegravir 400 mg p.o. b.i.d., tenofovir 300 mg p.o. daily. ALLERGIES: To ibuprofen, to shrimp, to tetracycline. Nature of this allergy is unknown. DIET: Obese lady, no significant weight loss or gain since I have last seen her. FAMILY AND SOCIAL HISTORY: Apparently, he has been living in group homes in the community. Ten plus pack year tobacco smoking history. Denies current alcohol, tobacco, or illicit drug use or abuse. REVIEW OF SYSTEMS: No loss of consciousness. No new onset seizures. No new onset focal weakness. No gross hematochezia or melena. She did have the diarrhea at presentation. No gross hematuria or dysuria. No hematemesis. No hemoptysis. No palpitations. Complete review of systems obtained. Pertinent positives and/or negatives as in body of history above, otherwise noncontributory. PHYSICAL EXAMINATION: VITAL SIGNS: On examination at presentation, she had a fever of 100.4 degrees Fahrenheit rectally with a pulse of 104, respiratory rate of 14, blood pressure 79/54, oxygen sats were 100% at that time. Over the last 24-48 hours, she has pain mostly afebrile. HEAD, EYES, EARS, NOSE, AND THROAT: Pupils are equal, round, about 2-3 mm, reactive to light. Extraocular muscle movements appeared intact. Grossly, there were no palpable lymph nodes in the supraclavicular or submandibular lymph node chains. LUNGS: Auscultation of both lung murcia revealed bilateral expiratory wheezing. HEART: Heart sounds 1 and 2 are heard, regular rate and rhythm at the time of my evaluation. ABDOMEN: Soft, full, protuberant. Bowel sounds are positive. Nontender. EXTREMITIES: Without overt digital clubbing, cyanosis, or pedal edema. NEUROLOGIC: The exam was grossly nonfocal. LABORATORY DATA: From my review are as follows: White cell count today is 3600, hemoglobin 8.8, hematocrit 26.5, platelets 107. Serum sodium was 139, potassium 3.9, this is on the . This lab reports are from of the month. Serum sodium 139, potassium 3.7, chloride 106, bicarbonate 19, BUN 7, creatinine 0.9, glucose 128. Urinalysis on the was negative for nitrites and leukocyte esterase. INR was 1.07 on presentation. Urinalysis suggested UTI at presentation. Urine drug screen was negative at presentation. All the cultures I can see here no growth to date. Radiographic studies have been reviewed. Most recent studies a chest x-ray from the of this month radiologist's interpretation, as I am pulling the film up, mentions no acute cardiopulmonary findings. CTA of her chest was also done at admission and it showed no PE, no aneurysm or dissection, really unremarkable. ASSESSMENT AND PLAN: We have a middle-aged lady with exacerbation of her chronic obstructive lung disease. Respiratory blackman, I believe she was on room air. Supplemental oxygen will be given if sats drop below 92%. We do agree with systemic steroids and I will leave it at the current dose. We agree with short acting bronchodilators and I will leave it at the current schedule. I will, however, add long acting bronchodilators into the mix. She should continue her current antibiotic therapy. Supplemental oxygen again will be given as necessary. I have asked her if she is getting more short of breath to let us know. Bilevel positive airway pressure ventilation therapy will be offered. For now, she will be placed on GI prophylaxis. Platelet count appears to be dropping, I will hold on DVT prophylaxis in the form of heparinoids at this time. Flu and pneumonia vaccination will be per protocol. Tobacco abstinence has been encouraged. Thank you very much for the consult Dr. Randhawa. We will follow along. We will make further recommendations as the picture progresses/becomes clearer. JOB# [id number] ABDOULAYE/WENDY
[2016-09-18] MEDS: NACL 0.9% 1000 ML 1,000 ML IV SCH (06:45)
[2016-09-18] MEDS: DUONEB 0.5 MG-3 MG/3 ML SOLN IH SCH ×3 (08:12→19:47)
[2016-09-18] MEDS: BROVANA NEBU IH SCH ×2 (08:15→19:59)
[2016-09-18] MEDS: ISENTRESS PO SCH ×2 (09:51→21:42)
[2016-09-18] MEDS: VIREAD PO SCH (09:51)
[2016-09-18] MEDS: EMTRIVA PO SCH (09:52)
[2016-09-18] MEDS: BENADRYL IV PRN ×3 (09:52→20:35)
[2016-09-18] MEDS: ZOFRAN IV PRN ×2 (09:52→20:35)
[2016-09-18] MEDS: MORPHINE IV PRN ×3 (09:52→20:36)
[2016-09-18] MEDS: LEVAQUIN PO SCH (09:52)
[2016-09-18 10:18] LABS: Hematocrit 30.4 % (30.3-42.9); Hemoglobin 9.9 gm/dl (10.1-14.3); Mean Corpuscular HGB Conc 33 % (30-34); Mean Corpuscular Hemoglobin 32 pg (28-32); Mean Corpuscular Volume 99 fl (79-97); Platelet Count 211 K/mm3 (140-440); Red Blood Count 3.07 M/mm3 (3.65-5.03); Red Cell Distribution Width 17.1 % (13.2-15.2); White Blood Count 4.2 K/mm3 (4.5-11.0)
--- NOTE | 2016-09-18 10:18 | Progress Note ---
Assessment and Plan - Patient Problems (1) Sepsis Current Visit: No Status: Acute Plan to address problem: - improved - AB's per ID recs (2) History of HIV or AIDS Current Visit: No Status: Chronic Plan to address problem: - HAART per ID recs (3) Acute exacerbation of chronic obstructive pulmonary disease (COPD) Current Visit: Yes Status: Acute Plan to address problem: - continue QUEENIE & LABA - continue systemic steroids - prn Oxygen therapy - prn BIPAP - s/p empiric AB's Subjective Date of service: 09/18/16 Principal diagnosis: Acute COPD exacerbation Interval history: Seen and examined at bedside; 24 hour events reviewed; nursing and respiratory care staff consulted; no adverse overnight events reported to me; continues to wheeze; denies acute chest pains or increased SOB though; No N/V/F/C Objective Vital Signs - 12hr 09/18/16 09/18/16 09/18/16 00:32 08:05 08:13 Temperature 98.1 F 98.4 F Pulse Rate [ 90 Posterior Bilateral Throughout] Pulse Rate [ 92 H Right From Monitor] Pulse Rate [ 80 Right Radial] Respiratory 20 24 Rate Respiratory 18 Rate [Posterior Bilateral Throughout] Blood Pressure 137/77 [Left Arm] Blood Pressure 165/95 [Right Arm] O2 Sat by Pulse 97 98 Oximetry 09/18/16 08:21 Temperature Pulse Rate [ 94 H Posterior Bilateral Throughout] Pulse Rate [ Right From Monitor] Pulse Rate [ Right Radial] Respiratory Rate Respiratory 20 Rate [Posterior Bilateral Throughout] Blood Pressure [Left Arm] Blood Pressure [Right Arm] O2 Sat by Pulse Oximetry Constitutional: no acute distress, alert Eyes: non-icteric ENT: oropharynx moist Neck: supple, no lymphadenopathy Effort: mildly labored Ascultation: Bilateral: diminished breath sounds, wheezes Cardiovascular: regular rate and rhythm Gastrointestinal: normoactive bowel sounds, soft, non-tender, non-distended Integumentary: normal Extremities: no cyanosis, no edema, pulses normal, no ischemia or petechiae Neurologic: normal mental status, non-focal exam, pupils equal and round, motor strength normal and Psychiatric: mood appropriate, affect normal CBC and BMP: 09/18/16 08:49 09/14/16 04:00 ABG, PT/INR, D-dimer: PT/INR, D-dimer PT 13.8 Sec. (12.2-14.9) 09/07/16 22:38 INR 1.07 (0.87-1.13) 09/07/16 22:38 Abnormal lab findings: Abnormal Labs 09/08/16 09/09/16 09/09/16 21:09 06:15 07:51 WBC 3.2 L RBC 3.29 L Hgb Hct MCV 98 H D MCH RDW 16.8 H Plt Count Lymph % (Auto) 50.9 H [place] % (Auto) 9.5 H Seg Neutrophils % 35.9 L Seg Neuts % (Manual) Lymphocytes % (Manual) Monocytes % (Manual) Nucleated RBC % Seg Neutrophils # 1.2 L Seg Neutrophils # Man Abs Lymphs (Manual) Chloride Carbon Dioxide Glucose POC Glucose 167 H 172 H Calcium Absolute CD3 Count Absolute CD4 Count % CD8 Cells % CD19 Cells Absolute CD19 Count 09/09/16 09/09/16 09/09/16 09:34 10:45 21:09 WBC RBC Hgb Hct MCV MCH RDW Plt Count Lymph % (Auto) [place] % (Auto) Seg Neutrophils % Seg Neuts % (Manual) Lymphocytes % (Manual) Monocytes % (Manual) Nucleated RBC % Seg Neutrophils # Seg Neutrophils # Man Abs Lymphs (Manual) Chloride 110.9 H Carbon Dioxide 20 L Glucose 150 H POC Glucose 150 H 141 H Calcium 8.1 L Absolute CD3 Count Absolute CD4 Count % CD8 Cells % CD19 Cells Absolute CD19 Count 09/10/16 09/10/16 09/10/16 12:07 17:10 20:00 WBC RBC Hgb Hct MCV MCH RDW Plt Count Lymph % (Auto) [place] % (Auto) Seg Neutrophils % Seg Neuts % (Manual) Lymphocytes % (Manual) Monocytes % (Manual) Nucleated RBC % Seg Neutrophils # Seg Neutrophils # Man Abs Lymphs (Manual) 631 L Chloride Carbon Dioxide Glucose POC Glucose 187 H 153 H Calcium Absolute CD3 Count 513 L Absolute CD4 Count 256 L % CD8 Cells 44 H % CD19 Cells 4 L Absolute CD19 Count 24 L 09/11/16 09/11/16 09/11/16 06:31 12:11 16:58 WBC RBC Hgb Hct MCV MCH RDW Plt Count Lymph % (Auto) [place] % (Auto) Seg Neutrophils % Seg Neuts % (Manual) Lymphocytes % (Manual) Monocytes % (Manual) Nucleated RBC % Seg Neutrophils # Seg Neutrophils # Man Abs Lymphs (Manual) Chloride Carbon Dioxide Glucose POC Glucose 109 H 115 H 280 H Calcium Absolute CD3 Count Absolute CD4 Count % CD8 Cells % CD19 Cells Absolute CD19 Count 09/14/16 09/14/16 09/14/16 01:00 04:00 11:23 WBC 2.8 L 3.6 L RBC 2.81 L 2.66 L Hgb 9.0 L 8.8 L Hct 27.8 L 26.5 L MCV 99 H 100 H MCH 33 H RDW 17.1 H 17.0 H Plt Count 136 L 107 L Lymph % (Auto) [place] % (Auto) Seg Neutrophils % Seg Neuts % (Manual) 23.0 L Lymphocytes % (Manual) 65.0 H Monocytes % (Manual) 12.0 H Nucleated RBC % 1.0 H Seg Neutrophils # Seg Neutrophils # Man 0.6 L Abs Lymphs (Manual) Chloride Carbon Dioxide 19 L Glucose 128 H POC Glucose Calcium 7.6 L Absolute CD3 Count Absolute CD4 Count % CD8 Cells % CD19 Cells Absolute CD19 Count
[2016-09-18] MEDS ORDERED: LASIX IV ONE (11:28)
--- NOTE | 2016-09-18 12:11 | Progress Note ---
Assessment and Plan Current antibiotics: None Previous Antibiotics: Levaquin 500 mg by mouth daily (09/12 - 09/18) Zosyn 4.5 g IV q8h 09/10-09/12 Metronidazole 09/08 Levaquin 09/08 Antiretrovirals: Truvada 1 tab po q day Raltegravir 50 mg po q day Corticosteroids: Solu-Medrol 40 mg IV q8h 09/15 --> ASSESSMENT: Olga Ramirez is a 61 y/o woman with HIV infection (CD4 343) , hypertension, type 2 DM, CHF, asthma, and seizure disorder recently discharged from [facility] on daptomycin for a polymicrobial blood stream infection. She is now presenting with similar complaints including abdominal cramps, diarrhea, nausea, vomiting, fever, cough, shortness of breath and weakness. She said her temperature at home was 102 but here in the hospital she is afebrile. Problem list: 1. Clinical picture of abdominal pain, fevers, nausea, vomiting, diarrhea and shortness of breath. -Abdominal pain is not worse but same as previous admission -C diff assay negative -CT of chest without abnormalities, CT scan of abdomen without bowel pathology 2. Increasing shortness of breath -Increased wheezing -Exacerbation of asthmatic bronchitis 3. Leukopenia -Suspect related to underlying HIV 4. Complaints of diarrhea -None substantiated -C diff assay negative on 09/08/16 5. HIV -CD4 256 and viral load < 20 -On anti-retroviral therapy 6. Status post polymicrobial blood stream infection -MRSA & Staph epidermidis in one set -The second set with VRE, Staph epidermidis and diptheroids -Repeat blood cultures negative -Finished course of antibiotics 7. Fevers -Unclear source -Blood cultures negative, CT scan of chest and abdomen without abnormalities. Temperature high of 103 on 09/10. Afebrile so far today PLAN: 1. Treatment of bronchospasm as per the hospitalist team. Now on corticosteroids. Discussed pulmonary evaluation with Dr. Randhawa. 2. Continue anti-retroviral therapy Truvada (tenofovir, emtriva) and Isentress 3. She states that she would like to come see us in the office for her HIV care and I told her that would be fine. 4. Will stop Levaquin s/p 5 day course 5. Continue contact isolation for MRSA history Subjective Date of service: 09/18/16 Principal diagnosis: Acute COPD exacerbation Interval history: States her breathing has improved. Objective - Exam Narrative Exam: Obese. No apparent respiratory distress. HEENT: Pupils are equal reactive to light and accommodation. Conjunctiva clear. Oropharynx is normal with no evidence of oral candidiasis or pharyngitis. NECK: Supple. No enlargement of the thyroid gland. No significant cervical lymphadenopathy. No jugular venous distention at 30. LUNGS: Scattered rhonchi. Wheezing improved. HEART: Regular rate. S1 and S2 are normal. There are no murmurs, gallops, clicks or rubs heard. ABDOMEN: Soft and nontender. Liver and spleen are not palpably enlarged or tender. No palpable masses. Bowel sounds are normoactive. EXTREMITIES: No rash, peripheral lymphadenopathy, clubbing or edema. SKIN: No other rash, ulcers or wounds. Dry skin. NEUROLOGIC: No focal findings. - Constitutional Vitals: Vital Signs Temp Pulse Resp BP Pulse Ox 98.4 F 94 H 20 165/95 98 09/18/16 08:05 09/18/16 08:21 09/18/16 08:21 09/18/16 08:05 09/18/16 08:05 Temperature -Last 24 Hours Temperature 98.4 F Temperature 98.1 F Temperature 98.3 F - Labs CBC & Chem 7: 09/18/16 08:49 09/14/16 04:00 Labs: Abnormal lab results 09/18/16 Range/Units 08:49 WBC 4.2 L (4.5-11.0) K/mm3 RBC 3.07 L (3.65-5.03) M/mm3 Hgb 9.9 L (10.1-14.3) gm/dl MCV 99 H (79-97) fl RDW 17.1 H (13.2-15.2) %
--- NOTE | 2016-09-18 12:13 | Progress Note ---
Assessment and Plan Current antibiotics: Levaquin 500 mg by mouth daily ( 09/12 -> Previous Antibiotics: Zosyn 4.5 g IV every 8 hour ( 09/10 - 09/12) Metronidazole 09/08 Levaquin 09/08 ASSESSMENT: Olga Ramirez is a 61 y/o woman with HIV infection (CD4 343) , hypertension, type 2 DM, CHF, asthma, and seizure disorder recently discharged from [facility] on daptomycin for a polymicrobial blood stream infection. She is now presenting with similar complaints including abdominal cramps, diarrhea, nausea, vomiting, fever, cough, shortness of breath and weakness. She said her temperature at home was 102 but here in the hospital she is afebrile. Problem list: 1. Clinical picture of abdominal pain, fevers, nausea, vomiting, diarrhea and shortness of breath. -abdominal pain is not worse but same as previous admission -stool cdiff and culture negative -CT of chest without abnormalities, CT scan of abdomen without bowel pathology -patient is now reporting loose stool, but she said it is better today. 2. Leukopenia -Suspect related to underlying HIV 3. Compaints of diarrhea -None substantiated -Stool cdiff negative on 09/08/16 4. HIV -CD4 and viral load pending -On anti-retroviral therapy 5. Status post polymicrobial blood stream infection -MRSA & Staph epidermidis in one set -The second set with VRE, Staph epidermidis and diptheroids -Repeat blood cultures negative -Finished course of antibiotics 6. Fevers -Unclear source -Blood cultures negative, CT scan of chest and abdomen without abnormalities. - No further recent temperature spikes PLAN: 1. Await results of 09/10 blood cultures - NGTD 2. Continue anti-retroviral therapy Truvada( tenofovir, emtriva) and Isentress 3. Await results of CD4 and HIV viral load 4. Continue oral Levaquin versus asthmatic bronchitis. 5. Repeat white count in the morning. 6. Continue contact isolation for MRSA history Subjective Date of service: 09/18/16 Principal diagnosis: Acute COPD exacerbation Interval history: States her breathing has improved. Objective - Exam Narrative Exam: Obese. No apparent respiratory distress. HEENT: Pupils are equal reactive to light and accommodation. Conjunctiva clear. Oropharynx is normal with no evidence of oral candidiasis or pharyngitis. NECK: Supple. No enlargement of the thyroid gland. No significant cervical lymphadenopathy. No jugular venous distention at 30. LUNGS: Scattered rhonchi. Wheezing improved. HEART: Regular rate. S1 and S2 are normal. There are no murmurs, gallops, clicks or rubs heard. ABDOMEN: Soft and nontender. Liver and spleen are not palpably enlarged or tender. No palpable masses. Bowel sounds are normoactive. EXTREMITIES: No rash, peripheral lymphadenopathy, clubbing or edema. SKIN: No other rash, ulcers or wounds. Dry skin. NEUROLOGIC: No focal findings. - Constitutional Vitals: Vital Signs Temp Pulse Resp BP Pulse Ox 98.4 F 94 H 20 165/95 98 09/18/16 08:05 09/18/16 08:21 09/18/16 08:21 09/18/16 08:05 09/18/16 08:05 Temperature -Last 24 Hours Temperature 98.4 F Temperature 98.1 F Temperature 98.3 F - Labs CBC & Chem 7: 09/18/16 08:49 09/14/16 04:00 Labs: Abnormal lab results 09/18/16 Range/Units 08:49 WBC 4.2 L (4.5-11.0) K/mm3 RBC 3.07 L (3.65-5.03) M/mm3 Hgb 9.9 L (10.1-14.3) gm/dl MCV 99 H (79-97) fl RDW 17.1 H (13.2-15.2) %
[2016-09-18] MEDS: ROBITUSSIN AC PO PRN ×2 (12:42→21:51)
[2016-09-18] MEDS: LOMOTIL PO PRN (12:42)
[2016-09-18] MEDS ORDERED: D50W (25GM) IV PRN (12:57)
--- NOTE | 2016-09-18 12:57 | Progress Note ---
Assessment and Plan Assessment and plan: Patient is a 61-year-old woman history of HIV, seizure disorder, C. difficile, type 2 diabetes mellitus and hypertension who recently discharged from [facility] on daptomycin for polymicrobial bloodstream infection who presents with significant similar complaints of abdominal pain. On [address] abdomen and pelvis without contrast which showed morbid obesity, small hiatal hernia, IVC filter, no definite signs acute disease and abdomen of pelvis. CT abdomen and pelvis with contrast 09/08/2016 show hiatal hernia thickened stomach antrum which could be mild gastritis but no obstruction colitis or enteritis. IVC filter were recognized as well as a hysterectomy. She saw gastroenterology last visit. 1. Acute on chronic respiratory failure with hypoxia-continue IV steroids. Pulmonary input is noted we'll continue to monitor. Discontinue IV fluids patient tolerates and by mouth intake. We'll give a touch of Lasix today to ensure no fluid overload component to this. Continue nebulizer treatment. 2. Asthma exacerbation- As noted above 3. Recurrent abdominal pains ?etiology, ID is following, seen by GI and they have signed off, repeat C. difficile was negative 4. HIV followed by infectious disease- continue ARTs 5. Leukopenia with Bacteremia, completed today. ID consult appreciated. On the previous admission, chest showed-MRSA & Staph epidermidis in one set,-The second set with VRE, Staph epidermidis and diptheroids,-Repeat blood cultures negative 6. Type 2 diabetes mellitus: Adjust insulin 7. Metabolic acidosis-stable continue to monitor DVT and GI prophylaxis History Interval history: Patient seen and examined, still with cough and shortness of breath worse with ambulation. Denies any chest pain or fever. No other adverse events reported by nursing staff Hospitalist Physical - Physical exam Narrative exam: VITAL SIGNS: Reviewed. GENERAL: The patient appeared, obese well nourished and normally developed. Vital signs as documented. HEAD: No signs of head trauma. EYES: Pupils are equal. Extraocular motions intact. EARS: Hearing grossly intact. MOUTH: Oropharynx is normal. NECK: No adenopathy, no JVD. CHEST: Chest with diffuse wheezing bilaterally. No, rales, or rhonchi. CARDIAC: Regular rate and rhythm. S1 and S2, without murmurs, gallops, or rubs. VASCULAR: No Edema. Peripheral pulses normal and equal in all extremities. ABDOMEN: Soft, without detectable tenderness. No sign of distention. No rebound or guarding, and no masses palpated. Bowel Sounds normal. MUSCULOSKELETAL: Good range of motion of all major joints. Extremities without clubbing, cyanosis or edema. NEUROLOGIC EXAM: Alert and oriented x 3. No focal sensory or strength deficits. Speech normal. Follows commands. PSYCHIATRIC: Mood normal. SKIN: No rash or lesions. - Constitutional Vitals: Temp Pulse Resp BP Pulse Ox 98.8 F 92 H 20 122/80 98 09/18/16 12:00 09/18/16 12:00 09/18/16 12:00 09/18/16 12:00 09/18/16 12:00 General appearance: Present: no acute distress, well-nourished Results - Labs CBC & Chem 7: 09/18/16 08:49 09/14/16 04:00 Labs: Laboratory Last Values WBC 4.2 K/mm3 (4.5-11.0) L 09/18/16 08:49 RBC 3.07 M/mm3 (3.65-5.03) L 09/18/16 08:49 Hgb 9.9 gm/dl (10.1-14.3) L 09/18/16 08:49 Hct 30.4 % (30.3-42.9) 09/18/16 08:49 MCV 99 fl (79-97) H 09/18/16 08:49 MCH 32 pg (28-32) 09/18/16 08:49 MCHC 33 % (30-34) 09/18/16 08:49 RDW 17.1 % (13.2-15.2) H 09/18/16 08:49 Plt Count 211 K/mm3 (140-440) 09/18/16 08:49 Lymph % (Auto) Finance Administrator 09/14/16 01:00 [place] % (Auto) 9.5 % (0.0-7.3) H 09/09/16 07:51 Eos % (Auto) 2.7 % (0.0-4.3) 09/09/16 07:51 Baso % (Auto) 1.0 % (0.0-1.8) 09/09/16 07:51 Lymph # 1.6 K/mm3 (1.2-5.4) 09/09/16 07:51 [place]ady # 0.3 K/mm3 (0.0-0.8) 09/09/16 07:51 Eos # 0.1 K/mm3 (0.0-0.4) 09/09/16 07:51 Baso # 0.0 K/mm3 (0.0-0.1) 09/09/16 07:51 Add Manual Diff Complete 09/14/16 01:00 Total Counted 100 09/14/16 01:00 Seg Neutrophils % Finance Administrator 09/14/16 01:00 Seg Neuts % (Manual) 23.0 % (40.0-70.0) L 09/14/16 01:00 Band Neutrophils % 0 % 09/14/16 01:00 Lymphocytes % (Manual) 65.0 % (13.4-35.0) H 09/14/16 01:00 Reactive Lymphs % (Man) 0 % 09/14/16 01:00 Monocytes % (Manual) 12.0 % (0.0-7.3) H 09/14/16 01:00 Eosinophils % (Manual) 0 % (0.0-4.3) 09/14/16 01:00 Basophils % (Manual) 0 % (0.0-1.8) 09/14/16 01:00 Metamyelocytes % 0 % 09/14/16 01:00 Myelocytes % 0 % 09/14/16 01:00 Promyelocytes % 0 % 09/14/16 01:00 Blast Cells % 0 % 09/14/16 01:00 Nucleated RBC % 1.0 % (0.0-0.9) H 09/14/16 01:00 Seg Neutrophils # 1.2 K/mm3 (1.8-7.7) L 09/09/16 07:51 Seg Neutrophils # Man 0.6 K/mm3 (1.8-7.7) L 09/14/16 01:00 Band Neutrophils # 0.0 K/mm3 09/14/16 01:00 Abs Lymphs (Manual) 631 cells/uL (850-3900) L 09/10/16 20:00 Lymphocytes # (Manual) 1.8 K/mm3 (1.2-5.4) 09/14/16 01:00 Abs React Lymphs (Man) 0.0 K/mm3 09/14/16 01:00 Monocytes # (Manual) 0.3 K/mm3 (0.0-0.8) 09/14/16 01:00 Eosinophils # (Manual) 0.0 K/mm3 (0.0-0.4) 09/14/16 01:00 Basophils # (Manual) 0.0 K/mm3 (0.0-0.1) 09/14/16 01:00 Metamyelocytes # 0.0 K/mm3 09/14/16 01:00 Myelocytes # 0.0 K/mm3 09/14/16 01:00 Promyelocytes # 0.0 K/mm3 09/14/16 01:00 Blast Cells # 0.0 K/mm3 09/14/16 01:00 WBC Morphology Not Reportable 09/14/16 01:00 Hypersegmented Neuts Not Reportable 09/14/16 01:00 Hyposegmented Neuts Not Reportable 09/14/16 01:00 Hypogranular Neuts Not Reportable 09/14/16 01:00 Smudge Cells Not Reportable 09/14/16 01:00 Toxic Granulation Not Reportable 09/14/16 01:00 Toxic Vacuolation Not Reportable 09/14/16 01:00 Dohle Bodies Not Reportable 09/14/16 01:00 Pelger-Huet Anomaly Not Reportable 09/14/16 01:00 Susan Rods Not Reportable 09/14/16 01:00 Platelet Estimate Consistent w auto 09/14/16 01:00 Clumped Platelets Not Reportable 09/14/16 01:00 Plt Clumps, EDTA Not Reportable 09/14/16 01:00 Large Platelets Not Reportable 09/14/16 01:00 Giant Platelets Not Reportable 09/14/16 01:00 Platelet Satelliting Not Reportable 09/14/16 01:00 Plt Morphology Comment Not Reportable 09/14/16 01:00 RBC Morphology Not Reportable 09/14/16 01:00 Dimorphic RBCs Not Reportable 09/14/16 01:00 Polychromasia Not Reportable 09/14/16 01:00 Hypochromasia 1+ 09/14/16 01:00 Poikilocytosis Not Reportable 09/14/16 01:00 Anisocytosis 1+ 09/14/16 01:00 Microcytosis Not Reportable 09/14/16 01:00 Macrocytosis Not Reportable 09/14/16 01:00 Spherocytes Not Reportable 09/14/16 01:00 Pappenheimer Bodies Not Reportable 09/14/16 01:00 Sickle Cells Not Reportable 09/14/16 01:00 Target Cells Not Reportable 09/14/16 01:00 Tear Drop Cells Not Reportable 09/14/16 01:00 Ovalocytes Not Reportable 09/14/16 01:00 Helmet Cells Not Reportable 09/14/16 01:00 [place] Bodies Not Reportable 09/14/16 01:00 Todd Rings Not Reportable 09/14/16 01:00 [place] Cells Not Reportable 09/14/16 01:00 Bite Cells Not Reportable 09/14/16 01:00 Crenated Cell Not Reportable 09/14/16 01:00 Elliptocytes Not Reportable 09/14/16 01:00 Acanthocytes (Spur) Not Reportable 09/14/16 01:00 Rouleaux Not Reportable 09/14/16 01:00 Hemoglobin C Crystals Not Reportable 09/14/16 01:00 Schistocytes Not Reportable 09/14/16 01:00 Malaria parasites Not Reportable 09/14/16 01:00 Barry Bodies Not Reportable 09/14/16 01:00 Hem Pathologist Commnt No 09/14/16 01:00 PT 13.8 Sec. (12.2-14.9) 09/07/16 22:38 INR 1.07 (0.87-1.13) 09/07/16 22:38 Sodium 139 mmol/L (137-145) 09/14/16 04:00 Potassium 3.7 mmol/L (3.6-5.0) 09/14/16 04:00 Chloride 106.3 mmol/L (98-107) 09/14/16 04:00 Carbon Dioxide 19 mmol/L (22-30) L 09/14/16 04:00 Anion Gap 17 mmol/L 09/14/16 04:00 BUN 7 mg/dL (7-17) 09/14/16 04:00 Creatinine 0.9 mg/dL (0.7-1.2) 09/14/16 04:00 Estimated GFR > 60 ml/min 09/14/16 04:00 BUN/Creatinine Ratio 7.77 % 09/14/16 04:00 Glucose 128 mg/dL (65-100) H 09/14/16 04:00 POC Glucose 280 (70-105) H 09/11/16 16:58 Lactic Acid 1.2 mmol/L (0.7-2.0) 09/08/16 09:33 Calcium 7.6 mg/dL (8.4-10.2) L 09/14/16 04:00 Total Creatine Kinase 64 units/L (30-135) 09/08/16 09:33 CK-MB (CK-2) 1.1 ng/mL (0.0-4.0) 09/08/16 09:33 CK-MB (CK-2) Rel Index 1.7 (0-4) 09/08/16 09:33 Troponin T < 0.010 ng/mL (0.00-0.029) 09/08/16 09:33 NT-Pro-B Natriuret Pep 54.21 pg/mL (0-900) 09/07/16 22:38 Lipase 27 units/L (13-60) 09/07/16 12:57 Urine Color Colorless (Yellow) 09/12/16 22:00 Urine Turbidity Clear (Clear) 09/12/16 22:00 Urine pH 5.0 (5.0-7.0) 09/12/16 22:00 Ur Specific [place] 1.005 (1.003-1.030) 09/12/16 22:00 Urine Protein <15 mg/dl mg/dL (Negative) 09/12/16 22:00 Urine Glucose (UA) 50 mg/dL (Negative) 09/12/16 22:00 Urine Ketones Neg mg/dL (Negative) 09/12/16 22:00 Urine Blood Sm (Negative) 09/12/16 22:00 Urine Nitrite Neg (Negative) 09/12/16 22:00 Urine Bilirubin Neg (Negative) 09/12/16 22:00 Urine Urobilinogen < 2.0 mg/dL (<2.0) 09/12/16 22:00 Ur Leukocyte Esterase Neg (Negative) 09/12/16 22:00 Urine WBC (Auto) < 1.0 /HPF (0.0-6.0) 09/12/16 22:00 Urine RBC (Auto) < 1.0 /HPF (0.0-6.0) 09/12/16 22:00 U Epithel Cells (Auto) < 1.0 /HPF (0-13.0) 09/12/16 22:00 Urine Bacteria (Auto) 1+ /HPF (Negative) 09/07/16 22:20 Urine Mucus Few /HPF 09/12/16 22:00 Urine Opiates Screen Presumptive negative 09/07/16 22:20 Urine Methadone Screen Presumptive negative 09/07/16 22:20 Ur Barbiturates Screen Presumptive negative 09/07/16 22:20 Ur Phencyclidine Scrn Presumptive negative 09/07/16 22:20 Ur Amphetamines Screen Presumptive negative 09/07/16 22:20 U Benzodiazepines Scrn Presumptive negative 09/07/16 22:20 Urine Cocaine Screen Presumptive negative 09/07/16 22:20 U Marijuana (THC) Screen Presumptive negative 09/07/16 22:20 Drugs of Abuse Note Disclamer 09/07/16 22:20 Lymph Enumerat CD4/CD8 0.93 (0.86-5.00) 09/10/16 20:00 % CD3 Cells 81 % (57-85) 09/10/16 20:00 Absolute CD3 Count 513 cells/uL (840-3060) L 09/10/16 20:00 % CD4 Cells 41 % (30-61) 09/10/16 20:00 Absolute CD4 Count 256 cells/uL (490-1740) L 09/10/16 20:00 % CD8 Cells 44 % (12-42) H 09/10/16 20:00 Absolute CD8 Count 274 cells/uL (180-1170) 09/10/16 20:00 % CD19 Cells 4 % (6-29) L 09/10/16 20:00 Absolute CD19 Count 24 cells/uL (110-660) L 09/10/16 20:00 HIV-1 RNA PCR copies/ml <20 copies/mL (<20) 09/11/16 07:55 HIV-1 RNA (PCR) log <1.30 Log cps/mL (<1.30) 09/11/16 07:55
[2016-09-18] MEDS: DILANTIN PO SCH (21:41)
[2016-09-19] MEDS: BENADRYL IV PRN ×3 (06:12→17:54)
[2016-09-19] MEDS: MORPHINE IV PRN ×4 (06:13→22:29)
[2016-09-19] MEDS: ZOFRAN IV PRN ×3 (06:13→22:29)
[2016-09-19 07:08] LABS: Hematocrit 30.2 % (30.3-42.9); Hemoglobin 9.9 gm/dl (10.1-14.3); Mean Corpuscular HGB Conc 33 % (30-34); Mean Corpuscular Hemoglobin 32 pg (28-32); Mean Corpuscular Volume 98 fl (79-97); Platelet Count 215 K/mm3 (140-440); Red Blood Count 3.09 M/mm3 (3.65-5.03); White Blood Count 5.3 K/mm3 (4.5-11.0)
[2016-09-19] MEDS: DUONEB 0.5 MG-3 MG/3 ML SOLN IH SCH ×3 (08:44→21:51)
[2016-09-19] MEDS: BROVANA NEBU IH SCH ×2 (08:44→21:51)
[2016-09-19] MEDS: EMTRIVA PO SCH (11:29)
[2016-09-19] MEDS: VIREAD PO SCH (11:29)
[2016-09-19] MEDS: ISENTRESS PO SCH ×2 (11:29→22:28)
--- NOTE | 2016-09-19 12:28 | Progress Note ---
Assessment and Plan Assessment and plan: Patient is a 61-year-old woman history of HIV, seizure disorder, C. difficile, type 2 diabetes mellitus and hypertension who recently discharged from [facility] on daptomycin for polymicrobial bloodstream infection who presents with significant similar complaints of abdominal pain. On [address] abdomen and pelvis without contrast which showed morbid obesity, small hiatal hernia, IVC filter, no definite signs acute disease and abdomen of pelvis. CT abdomen and pelvis with contrast 09/08/2016 show hiatal hernia thickened stomach antrum which could be mild gastritis but no obstruction colitis or enteritis. IVC filter were recognized as well as a hysterectomy. She saw gastroenterology last visit. 1. Acute on chronic respiratory failure with hypoxia-continue IV steroids decrease to BID. Pulmonary input is noted we'll continue to monitor. improved also with the addition of lasix x 1. Continue nebulizer treatment. Anticipate discharge in am. 2. Asthma exacerbation- As noted above 3. Recurrent abdominal pains ?etiology, ID is following, seen by GI and they have signed off, repeat C. difficile was negative 4. HIV followed by infectious disease- continue ARTs 5. Leukopenia with Bacteremia, completed today. ID consult appreciated. On the previous admission, chest showed-MRSA & Staph epidermidis in one set,-The second set with VRE, Staph epidermidis and diptheroids,-Repeat blood cultures negative 6. Type 2 diabetes mellitus: Adjust insulin 7. Metabolic acidosis-stable continue to monitor DVT and GI prophylaxis History Interval history: Patient seen and examined, still with cough and shortness of breath worse with ambulation, Some improvement today. Denies any chest pain or fever. No other adverse events reported by nursing staff Hospitalist Physical - Physical exam Narrative exam: VITAL SIGNS: Reviewed. GENERAL: The patient appeared, obese well nourished and normally developed. Vital signs as documented. HEAD: No signs of head trauma. EYES: Pupils are equal. Extraocular motions intact. EARS: Hearing grossly intact. MOUTH: Oropharynx is normal. NECK: No adenopathy, no JVD. CHEST: Chest with diffuse wheezing bilaterally. No, rales, or rhonchi. CARDIAC: Regular rate and rhythm. S1 and S2, without murmurs, gallops, or rubs. VASCULAR: No Edema. Peripheral pulses normal and equal in all extremities. ABDOMEN: Soft, without detectable tenderness. No sign of distention. No rebound or guarding, and no masses palpated. Bowel Sounds normal. MUSCULOSKELETAL: Good range of motion of all major joints. Extremities without clubbing, cyanosis or edema. NEUROLOGIC EXAM: Alert and oriented x 3. No focal sensory or strength deficits. Speech normal. Follows commands. PSYCHIATRIC: Mood normal. SKIN: No rash or lesions. - Constitutional Vitals: Temp Pulse Resp BP Pulse Ox 98.7 F 86 17 144/86 97 09/19/16 00:00 09/19/16 08:55 09/19/16 08:55 09/19/16 00:00 09/19/16 00:00 General appearance: Present: no acute distress, well-nourished Results - Labs CBC & Chem 7: 09/19/16 07:00 09/14/16 04:00 Labs: Laboratory Last Values WBC 5.3 K/mm3 (4.5-11.0) 09/19/16 07:00 RBC 3.09 M/mm3 (3.65-5.03) L 09/19/16 07:00 Hgb 9.9 gm/dl (10.1-14.3) L 09/19/16 07:00 Hct 30.2 % (30.3-42.9) L 09/19/16 07:00 MCV 98 fl (79-97) H 09/19/16 07:00 MCH 32 pg (28-32) 09/19/16 07:00 MCHC 33 % (30-34) 09/19/16 07:00 RDW 17.0 % (13.2-15.2) H 09/19/16 07:00 Plt Count 215 K/mm3 (140-440) 09/19/16 07:00 Lymph % (Auto) Industrial Sociologist 09/14/16 01:00 [place] % (Auto) 9.5 % (0.0-7.3) H 09/09/16 07:51 Eos % (Auto) 2.7 % (0.0-4.3) 09/09/16 07:51 Baso % (Auto) 1.0 % (0.0-1.8) 09/09/16 07:51 Lymph # 1.6 K/mm3 (1.2-5.4) 09/09/16 07:51 [place] # 0.3 K/mm3 (0.0-0.8) 09/09/16 07:51 Eos # 0.1 K/mm3 (0.0-0.4) 09/09/16 07:51 Baso # 0.0 K/mm3 (0.0-0.1) 09/09/16 07:51 Add Manual Diff Complete 09/14/16 01:00 Total Counted 100 09/14/16 01:00 Seg Neutrophils % Industrial Sociologist 09/14/16 01:00 Seg Neuts % (Manual) 23.0 % (40.0-70.0) L 09/14/16 01:00 Band Neutrophils % 0 % 09/14/16 01:00 Lymphocytes % (Manual) 65.0 % (13.4-35.0) H 09/14/16 01:00 Reactive Lymphs % (Man) 0 % 09/14/16 01:00 Monocytes % (Manual) 12.0 % (0.0-7.3) H 09/14/16 01:00 Eosinophils % (Manual) 0 % (0.0-4.3) 09/14/16 01:00 Basophils % (Manual) 0 % (0.0-1.8) 09/14/16 01:00 Metamyelocytes % 0 % 09/14/16 01:00 Myelocytes % 0 % 09/14/16 01:00 Promyelocytes % 0 % 09/14/16 01:00 Blast Cells % 0 % 09/14/16 01:00 Nucleated RBC % 1.0 % (0.0-0.9) H 09/14/16 01:00 Seg Neutrophils # 1.2 K/mm3 (1.8-7.7) L 09/09/16 07:51 Seg Neutrophils # Man 0.6 K/mm3 (1.8-7.7) L 09/14/16 01:00 Band Neutrophils # 0.0 K/mm3 09/14/16 01:00 Abs Lymphs (Manual) 631 cells/uL (850-3900) L 09/10/16 20:00 Lymphocytes # (Manual) 1.8 K/mm3 (1.2-5.4) 09/14/16 01:00 Abs React Lymphs (Man) 0.0 K/mm3 09/14/16 01:00 Monocytes # (Manual) 0.3 K/mm3 (0.0-0.8) 09/14/16 01:00 Eosinophils # (Manual) 0.0 K/mm3 (0.0-0.4) 09/14/16 01:00 Basophils # (Manual) 0.0 K/mm3 (0.0-0.1) 09/14/16 01:00 Metamyelocytes # 0.0 K/mm3 09/14/16 01:00 Myelocytes # 0.0 K/mm3 09/14/16 01:00 Promyelocytes # 0.0 K/mm3 09/14/16 01:00 Blast Cells # 0.0 K/mm3 09/14/16 01:00 WBC Morphology Not Reportable 09/14/16 01:00 Hypersegmented Neuts Not Reportable 09/14/16 01:00 Hyposegmented Neuts Not Reportable 09/14/16 01:00 Hypogranular Neuts Not Reportable 09/14/16 01:00 Smudge Cells Not Reportable 09/14/16 01:00 Toxic Granulation Not Reportable 09/14/16 01:00 Toxic Vacuolation Not Reportable 09/14/16 01:00 Dohle Bodies Not Reportable 09/14/16 01:00 Pelger-Huet Anomaly Not Reportable 09/14/16 01:00 Susan Rods Not Reportable 09/14/16 01:00 Platelet Estimate Consistent w auto 09/14/16 01:00 Clumped Platelets Not Reportable 09/14/16 01:00 Plt Clumps, EDTA Not Reportable 09/14/16 01:00 Large Platelets Not Reportable 09/14/16 01:00 Giant Platelets Not Reportable 09/14/16 01:00 Platelet Satelliting Not Reportable 09/14/16 01:00 Plt Morphology Comment Not Reportable 09/14/16 01:00 RBC Morphology Not Reportable 09/14/16 01:00 Dimorphic RBCs Not Reportable 09/14/16 01:00 Polychromasia Not Reportable 09/14/16 01:00 Hypochromasia 1+ 09/14/16 01:00 Poikilocytosis Not Reportable 09/14/16 01:00 Anisocytosis 1+ 09/14/16 01:00 Microcytosis Not Reportable 09/14/16 01:00 Macrocytosis Not Reportable 09/14/16 01:00 Spherocytes Not Reportable 09/14/16 01:00 Pappenheimer Bodies Not Reportable 09/14/16 01:00 Sickle Cells Not Reportable 09/14/16 01:00 Target Cells Not Reportable 09/14/16 01:00 Tear Drop Cells Not Reportable 09/14/16 01:00 Ovalocytes Not Reportable 09/14/16 01:00 Helmet Cells Not Reportable 09/14/16 01:00 [place] Bodies Not Reportable 09/14/16 01:00 [place] Rings Not Reportable 09/14/16 01:00 [place] Cells Not Reportable 09/14/16 01:00 Bite Cells Not Reportable 09/14/16 01:00 Crenated Cell Not Reportable 09/14/16 01:00 Elliptocytes Not Reportable 09/14/16 01:00 Acanthocytes (Spur) Not Reportable 09/14/16 01:00 Rouleaux Not Reportable 09/14/16 01:00 Hemoglobin C Crystals Not Reportable 09/14/16 01:00 Schistocytes Not Reportable 09/14/16 01:00 Malaria parasites Not Reportable 09/14/16 01:00 [place] Bodies Not Reportable 09/14/16 01:00 Hem Pathologist Commnt No 09/14/16 01:00 PT 13.8 Sec. (12.2-14.9) 09/07/16 22:38 INR 1.07 (0.87-1.13) 09/07/16 22:38 Sodium 139 mmol/L (137-145) 09/14/16 04:00 Potassium 3.7 mmol/L (3.6-5.0) 09/14/16 04:00 Chloride 106.3 mmol/L (98-107) 09/14/16 04:00 Carbon Dioxide 19 mmol/L (22-30) L 09/14/16 04:00 Anion Gap 17 mmol/L 09/14/16 04:00 BUN 7 mg/dL (7-17) 09/14/16 04:00 Creatinine 0.9 mg/dL (0.7-1.2) 09/14/16 04:00 Estimated GFR > 60 ml/min 09/14/16 04:00 BUN/Creatinine Ratio 7.77 % 09/14/16 04:00 Glucose 128 mg/dL (65-100) H 09/14/16 04:00 POC Glucose 191 (70-105) H 09/19/16 11:08 Lactic Acid 1.2 mmol/L (0.7-2.0) 09/08/16 09:33 Calcium 7.6 mg/dL (8.4-10.2) L 09/14/16 04:00 Total Creatine Kinase 64 units/L (30-135) 09/08/16 09:33 CK-MB (CK-2) 1.1 ng/mL (0.0-4.0) 09/08/16 09:33 CK-MB (CK-2) Rel Index 1.7 (0-4) 09/08/16 09:33 Troponin T < 0.010 ng/mL (0.00-0.029) 09/08/16 09:33 NT-Pro-B Natriuret Pep 54.21 pg/mL (0-900) 09/07/16 22:38 Lipase 27 units/L (13-60) 09/07/16 12:57 Urine Color Colorless (Yellow) 09/12/16 22:00 Urine Turbidity Clear (Clear) 09/12/16 22:00 Urine pH 5.0 (5.0-7.0) 09/12/16 22:00 Ur Specific Hallie 1.005 (1.003-1.030) 09/12/16 22:00 Urine Protein <15 mg/dl mg/dL (Negative) 09/12/16 22:00 Urine Glucose (UA) 50 mg/dL (Negative) 09/12/16 22:00 Urine Ketones Neg mg/dL (Negative) 09/12/16 22:00 Urine Blood Sm (Negative) 09/12/16 22:00 Urine Nitrite Neg (Negative) 09/12/16 22:00 Urine Bilirubin Neg (Negative) 09/12/16 22:00 Urine Urobilinogen < 2.0 mg/dL (<2.0) 09/12/16 22:00 Ur Leukocyte Esterase Neg (Negative) 09/12/16 22:00 Urine WBC (Auto) < 1.0 /HPF (0.0-6.0) 09/12/16 22:00 Urine RBC (Auto) < 1.0 /HPF (0.0-6.0) 09/12/16 22:00 U Epithel Cells (Auto) < 1.0 /HPF (0-13.0) 09/12/16 22:00 Urine Bacteria (Auto) 1+ /HPF (Negative) 09/07/16 22:20 Urine Mucus Few /HPF 09/12/16 22:00 Urine Opiates Screen Presumptive negative 09/07/16 22:20 Urine Methadone Screen Presumptive negative 09/07/16 22:20 Ur Barbiturates Screen Presumptive negative 09/07/16 22:20 Ur Phencyclidine Scrn Presumptive negative 09/07/16 22:20 Ur Amphetamines Screen Presumptive negative 09/07/16 22:20 U Benzodiazepines Scrn Presumptive negative 09/07/16 22:20 Urine Cocaine Screen Presumptive negative 09/07/16 22:20 U Marijuana (THC) Screen Presumptive negative 09/07/16 22:20 Drugs of Abuse Note Disclamer 09/07/16 22:20 Lymph Enumerat CD4/CD8 0.93 (0.86-5.00) 09/10/16 20:00 % CD3 Cells 81 % (57-85) 09/10/16 20:00 Absolute CD3 Count 513 cells/uL (840-3060) L 09/10/16 20:00 % CD4 Cells 41 % (30-61) 09/10/16 20:00 Absolute CD4 Count 256 cells/uL (490-1740) L 09/10/16 20:00 % CD8 Cells 44 % (12-42) H 09/10/16 20:00 Absolute CD8 Count 274 cells/uL (180-1170) 09/10/16 20:00 % CD19 Cells 4 % (6-29) L 09/10/16 20:00 Absolute CD19 Count 24 cells/uL (110-660) L 09/10/16 20:00 HIV-1 RNA PCR copies/ml <20 copies/mL (<20) 09/11/16 07:55 HIV-1 RNA (PCR) log <1.30 Log cps/mL (<1.30) 09/11/16 07:55
--- NOTE | 2016-09-19 16:45 | Progress Note ---
Assessment and Plan Current antibiotics: None Previous Antibiotics: Levaquin 500 mg PO q day 09/12-09/18 Zosyn 4.5 g IV q8h 09/10-09/12 Metronidazole 09/08 Levaquin 09/08 Antiretrovirals: Truvada 1 tab po q day Raltegravir 50 mg po q day Corticosteroids: Solu-Medrol 40 mg IV q8h 09/15 --> ASSESSMENT: Olga Ramirez is a 61 y/o woman with HIV infection (CD4 343) , hypertension, type 2 DM, CHF, asthma, and seizure disorder recently discharged from [facility] on daptomycin for a polymicrobial blood stream infection. She is now presenting with similar complaints including abdominal cramps, diarrhea, nausea, vomiting, fever, cough, shortness of breath and weakness. She said her temperature at home was 102 but here in the hospital she is afebrile. Problem list: 1. Clinical picture of abdominal pain, fevers, nausea, vomiting, diarrhea and shortness of breath. -Abdominal pain is not worse but same as previous admission -C diff assay negative -CT of chest without abnormalities, CT scan of abdomen without bowel pathology 2. Increasing shortness of breath -Increased wheezing -Exacerbation of asthmatic bronchitis -Improving 3. Leukopenia -Suspect related to underlying HIV 4. Complaints of diarrhea -None substantiated -C diff assay negative on 09/08/16 5. HIV -CD4 256 and viral load < 20 -On anti-retroviral therapy 6. Status post polymicrobial blood stream infection -MRSA & Staph epidermidis in one set -The second set with VRE, Staph epidermidis and diptheroids -Repeat blood cultures negative -Finished course of antibiotics 7. Fevers -Unclear source -Blood cultures negative, CT scan of chest and abdomen without abnormalities. Temperature high of 103 on 09/10. Afebrile so far today PLAN: 1. Treatment of worsening bronchospasm as per pulmonary & the hospitalist team. 2. Continue anti-retroviral therapy Truvada (tenofovir, emtriva) and Isentress 3. She states that she would like to come see us in the office for her HIV care and I told her that would be fine. 4. Follow off of antibiotics 5. Continue contact isolation for MRSA history Loco Jain MD [facility] Office: [phone] Subjective Date of service: 09/19/16 Principal diagnosis: Acute COPD exacerbation Interval history: Some improvement but still wheezing. ROS: No subjective fever or chills. No nausea or vomiting. Objective - Exam Narrative Exam: GENERAL: Well-developed, obese, female who is alert and in mild respiratory distress with audible wheezing. Still somewhat anxious. HEAD: Normocephalic. No lesions seen. EYES: Pupils are equal reactive to light and accommodation. There is no scleral icterus. Optic fundi are not examined. EARS: Tympanic membranes are normal. THROAT: Oropharynx is normal with no evidence of oral candidiasis or pharyngitis. NECK: Supple. No enlargement of the thyroid gland. No significant cervical lymphadenopathy. No jugular venous distention at 30. LUNGS: Diffuse, bilateral inspiratory and expiratory wheezes throughout but somewhat improved as compared to yesterday. No other adventitious sounds heard. HEART: Regular rate. S1 and S2 are normal. There are no murmurs, gallops, clicks or rubs heard. ABDOMEN: Soft and nontender. Liver and spleen are not palpably enlarged or tender. No palpable masses. Bowel sounds are normoactive. EXTREMITIES: No rash, peripheral lymphadenopathy, clubbing or edema. : Not examined NEUROLOGIC: No focal findings. - Constitutional Vitals: Vital Signs Temp Pulse Resp BP Pulse Ox 98.2 F 99 H 16 113/63 99 09/19/16 15:25 09/19/16 15:25 09/19/16 15:25 09/19/16 15:25 09/19/16 15:25 Temperature -Last 24 Hours Temperature 98.2 F Temperature 98.7 F Temperature 98.2 F - Labs CBC & Chem 7: 09/19/16 07:00 09/14/16 04:00 Labs: Abnormal lab results 09/12/16 22:00 Urine,Clean Catch Urine Culture - Preliminary NO GROWTH AFTER 24 HOURS 09/10/16 07:55 Peripheral/Venous Blood Culture - Preliminary NO GROWTH AFTER 72 HOURS 09/10/16 19:00 Peripheral/Venous Blood Culture - Preliminary NO GROWTH AFTER 72 HOURS 09/07/16 22:38 Peripheral/Venous Blood Culture - Final NO GROWTH AFTER 5 DAYS 09/07/16 00:00 Peripheral/Venous Blood Culture - Final NO GROWTH AFTER 5 DAYS 09/08/16 Unknown Urine,Clean Catch Urine Culture - Final 09/08/16 Unknown Stool Stool Culture - No enteric pathogens 09/08/16 Unknown Stool C. difficile DNA Amplification - Negative 09/08/16 Unknown Stool Stool for WBCs - Final NEGATIVE 09/07/16 23:44 Nasopharyngeal Swab Influenza Types A,B Antigen (ANIBAL) - Negative Imagin/26 CXR: Normal
--- NOTE | 2016-09-19 17:00 | Progress Note ---
Assessment and Plan Patient resting on room air.O2 satuaration 99%. Says breathing better. Still has some cough with productive yellow sputum. - Patient Problems (1) Acute exacerbation of chronic obstructive pulmonary disease (COPD) Current Visit: Yes Status: Acute Plan to address problem: Albuterol/atrovent aerosol treatments q 6 hours. Continue solumedral. Antibiotics as per infectious diseases. (2) History of HIV or AIDS Current Visit: No Status: Chronic Plan to address problem: Management as per infectious diseases. Subjective Date of service: 09/19/16 Principal diagnosis: Acute COPD exacerbation Interval history: Patient resting on room air.O2 satuaration 99%. Says breathing better. Still has some cough with productive yellow sputum. Objective Vital Signs - 12hr 09/19/16 09/19/16 09/19/16 08:44 08:55 14:01 Temperature Pulse Rate [ 81 86 78 Posterior Bilateral Throughout] Pulse Rate [ Right From Monitor] Respiratory Rate Respiratory 17 17 16 Rate [Posterior Bilateral Throughout] Blood Pressure [Left Arm] O2 Sat by Pulse Oximetry 09/19/16 09/19/16 15:09 15:25 Temperature 98.2 F Pulse Rate [ 84 Posterior Bilateral Throughout] Pulse Rate [ 99 H Right From Monitor] Respiratory 16 Rate Respiratory 16 Rate [Posterior Bilateral Throughout] Blood Pressure 113/63 [Left Arm] O2 Sat by Pulse 99 Oximetry Constitutional: no acute distress, alert Eyes: non-icteric ENT: oropharynx moist Neck: supple, no lymphadenopathy Effort: mildly labored Ascultation: Bilateral: diminished breath sounds, wheezes Cardiovascular: regular rate and rhythm Gastrointestinal: normoactive bowel sounds, soft, non-tender, non-distended Integumentary: normal Extremities: no cyanosis, no edema, pulses normal, no ischemia or petechiae Neurologic: normal mental status, non-focal exam, pupils equal and round, motor strength normal and Psychiatric: mood appropriate, affect normal CBC and BMP: 09/19/16 07:00 09/14/16 04:00 ABG, PT/INR, D-dimer: PT/INR, D-dimer PT 13.8 Sec. (12.2-14.9) 09/07/16 22:38 INR 1.07 (0.87-1.13) 09/07/16 22:38 Abnormal lab findings: Abnormal Labs 0109/09/16 09/09/16 21:09 06:15 07:51 WBC 3.2 L RBC 3.29 L Hgb Hct MCV 98 H D MCH RDW 16.8 H Plt Count Lymph % (Auto) 50.9 H [place] % (Auto) 9.5 H Seg Neutrophils % 35.9 L Seg Neuts % (Manual) Lymphocytes % (Manual) Monocytes % (Manual) Nucleated RBC % Seg Neutrophils # 1.2 L Seg Neutrophils # Man Abs Lymphs (Manual) Chloride Carbon Dioxide Glucose POC Glucose 167 H 172 H Calcium Absolute CD3 Count Absolute CD4 Count % CD8 Cells % CD19 Cells Absolute CD19 Count 09/09/16 09/09/16 09/09/16 09:34 10:45 21:09 WBC RBC Hgb Hct MCV MCH RDW Plt Count Lymph % (Auto) [place] % (Auto) Seg Neutrophils % Seg Neuts % (Manual) Lymphocytes % (Manual) Monocytes % (Manual) Nucleated RBC % Seg Neutrophils # Seg Neutrophils # Man Abs Lymphs (Manual) Chloride 110.9 H Carbon Dioxide 20 L Glucose 150 H POC Glucose 150 H 141 H Calcium 8.1 L Absolute CD3 Count Absolute CD4 Count % CD8 Cells % CD19 Cells Absolute CD19 Count 09/10/16 09/10/16 09/10/16 12:07 17:10 20:00 WBC RBC Hgb Hct MCV MCH RDW Plt Count Lymph % (Auto) [place] % (Auto) Seg Neutrophils % Seg Neuts % (Manual) Lymphocytes % (Manual) Monocytes % (Manual) Nucleated RBC % Seg Neutrophils # Seg Neutrophils # Man Abs Lymphs (Manual) 631 L Chloride Carbon Dioxide Glucose POC Glucose 187 H 153 H Calcium Absolute CD3 Count 513 L Absolute CD4 Count 256 L % CD8 Cells 44 H % CD19 Cells 4 L Absolute CD19 Count 24 L 09/11/16 09/11/16 09/11/16 06:31 12:11 16:58 WBC RBC Hgb Hct MCV MCH RDW Plt Count Lymph % (Auto) [place] % (Auto) Seg Neutrophils % Seg Neuts % (Manual) Lymphocytes % (Manual) Monocytes % (Manual) Nucleated RBC % Seg Neutrophils # Seg Neutrophils # Man Abs Lymphs (Manual) Chloride Carbon Dioxide Glucose POC Glucose 109 H 115 H 280 H Calcium Absolute CD3 Count Absolute CD4 Count % CD8 Cells % CD19 Cells Absolute CD19 Count 09/14/16 09/14/16 09/14/16 01:00 04:00 11:23 WBC 2.8 L 3.6 L RBC 2.81 L 2.66 L Hgb 9.0 L 8.8 L Hct 27.8 L 26.5 L MCV 99 H 100 H MCH 33 H RDW 17.1 H 17.0 H Plt Count 136 L 107 L Lymph % (Auto) [place] % (Auto) Seg Neutrophils % Seg Neuts % (Manual) 23.0 L Lymphocytes % (Manual) 65.0 H Monocytes % (Manual) 12.0 H Nucleated RBC % 1.0 H Seg Neutrophils # Seg Neutrophils # Man 0.6 L Abs Lymphs (Manual) Chloride Carbon Dioxide 19 L Glucose 128 H POC Glucose Calcium 7.6 L Absolute CD3 Count Absolute CD4 Count % CD8 Cells % CD19 Cells Absolute CD19 Count 09/18/16 09/18/16 09/19/16 08:49 21:07 06:05 WBC 4.2 L RBC 3.07 L Hgb 9.9 L Hct MCV 99 H MCH RDW 17.1 H Plt Count Lymph % (Auto) [place] % (Auto) Seg Neutrophils % Seg Neuts % (Manual) Lymphocytes % (Manual) Monocytes % (Manual) Nucleated RBC % Seg Neutrophils # Seg Neutrophils # Man Abs Lymphs (Manual) Chloride Carbon Dioxide Glucose POC Glucose 199 H 194 H Calcium Absolute CD3 Count Absolute CD4 Count % CD8 Cells % CD19 Cells Absolute CD19 Count 09/19/16 09/19/16 09/19/16 07:00 11:08 16:27 WBC RBC 3.09 L Hgb 9.9 L Hct 30.2 L MCV 98 H MCH RDW 17.0 H Plt Count Lymph % (Auto) [place] % (Auto) Seg Neutrophils % Seg Neuts % (Manual) Lymphocytes % (Manual) Monocytes % (Manual) Nucleated RBC % Seg Neutrophils # Seg Neutrophils # Man Abs Lymphs (Manual) Chloride Carbon Dioxide Glucose POC Glucose 191 H 236 H Calcium Absolute CD3 Count Absolute CD4 Count % CD8 Cells % CD19 Cells Absolute CD19 Count Chest x-ray: report reviewed (No acute cardiopulmonary findings.)
[2016-09-19] MEDS: ROBITUSSIN AC PO PRN (17:53)
[2016-09-19] MEDS: NOVOLOG SUB-Q SCH ×2 (17:54→22:30)
[2016-09-19] MEDS: DILANTIN PO SCH (22:27)
[2016-09-20] MEDS: MORPHINE IV PRN ×2 (06:13→12:53)
[2016-09-20] MEDS: BENADRYL IV PRN ×2 (06:14→12:53)
[2016-09-20] MEDS: ZOFRAN IV PRN ×2 (06:14→14:30)
[2016-09-20] MEDS: DUONEB 0.5 MG-3 MG/3 ML SOLN IH SCH ×2 (08:09→14:30)
[2016-09-20] MEDS: BROVANA NEBU IH SCH (08:09)
[2016-09-20] MEDS: NOVOLOG SUB-Q SCH ×2 (08:34→12:12)
[2016-09-20] MEDS: ROBITUSSIN AC PO PRN (08:35)
[2016-09-20] MEDS: ISENTRESS PO SCH (09:16)
[2016-09-20] MEDS: EMTRIVA PO SCH (09:17)
[2016-09-20] MEDS: VIREAD PO SCH (09:17)
--- NOTE | 2016-09-20 10:36 | Progress Note ---
Assessment and Plan Patient alert,awake.Patient resting on room air.O2 satuaration 99%. Patient Says breathing better.No acute respiratory distress. - Patient Problems (1) Acute exacerbation of chronic obstructive pulmonary disease (COPD) Current Visit: Yes Status: Acute Plan to address problem: Albuterol/atrovent aerosol treatments q 6 hours. Continue solumedral. Antibiotics as per infectious diseases. (2) History of HIV or AIDS Current Visit: No Status: Chronic Plan to address problem: Management as per infectious diseases. Subjective Date of service: 09/20/16 Principal diagnosis: Acute COPD exacerbation Interval history: Patient alert,awake.Patient resting on room air.O2 satuaration 99%. Patient Says breathing better.No acute respiratory distress. Objective Vital Signs - 12hr 09/20/16 09/20/16 09/20/16 00:00 08:00 08:15 Temperature 98.5 F Pulse Rate [ 99 H 94 H Posterior Bilateral Throughout] Pulse Rate [ 92 H Right From Monitor] Respiratory 18 Rate Respiratory 16 16 Rate [Posterior Bilateral Throughout] Blood Pressure 123/61 [Left Arm] O2 Sat by Pulse 100 Oximetry 09/20/16 08:22 Temperature 98.4 F Pulse Rate [ Posterior Bilateral Throughout] Pulse Rate [ 96 H Right From Monitor] Respiratory 20 Rate Respiratory Rate [Posterior Bilateral Throughout] Blood Pressure 124/69 [Left Arm] O2 Sat by Pulse 99 Oximetry Constitutional: no acute distress, alert Eyes: non-icteric ENT: oropharynx moist Neck: supple, no lymphadenopathy Effort: mildly labored Ascultation: Bilateral: diminished breath sounds, wheezes (Mild bilateral wheezing.) Cardiovascular: regular rate and rhythm Gastrointestinal: normoactive bowel sounds, soft, non-tender, non-distended Integumentary: normal Extremities: no cyanosis, no edema, pulses normal, no ischemia or petechiae Neurologic: normal mental status, non-focal exam, pupils equal and round, motor strength normal and Psychiatric: mood appropriate, affect normal CBC and BMP: 09/19/16 07:00 09/14/16 04:00 ABG, PT/INR, D-dimer: PT/INR, D-dimer PT 13.8 Sec. (12.2-14.9) 09/07/16 22:38 INR 1.07 (0.87-1.13) 01/16/17 22:38 Abnormal lab findings: Abnormal Labs 09/08/16 09/09/16 09/09/16 21:09 06:15 07:51 WBC 3.2 L RBC 3.29 L Hgb Hct MCV 98 H D MCH RDW 16.8 H Plt Count Lymph % (Auto) 50.9 H [place] % (Auto) 9.5 H Seg Neutrophils % 35.9 L Seg Neuts % (Manual) Lymphocytes % (Manual) Monocytes % (Manual) Nucleated RBC % Seg Neutrophils # 1.2 L Seg Neutrophils # Man Abs Lymphs (Manual) Chloride Carbon Dioxide Glucose POC Glucose 167 H 172 H Calcium Absolute CD3 Count Absolute CD4 Count % CD8 Cells % CD19 Cells Absolute CD19 Count 09/09/16 09/09/16 09/09/16 09:34 10:45 21:09 WBC RBC Hgb Hct MCV MCH RDW Plt Count Lymph % (Auto) [place] % (Auto) Seg Neutrophils % Seg Neuts % (Manual) Lymphocytes % (Manual) Monocytes % (Manual) Nucleated RBC % Seg Neutrophils # Seg Neutrophils # Man Abs Lymphs (Manual) Chloride 110.9 H Carbon Dioxide 20 L Glucose 150 H POC Glucose 150 H 141 H Calcium 8.1 L Absolute CD3 Count Absolute CD4 Count % CD8 Cells % CD19 Cells Absolute CD19 Count 09/10/16 09/10/16 09/10/16 12:07 17:10 20:00 WBC RBC Hgb Hct MCV MCH RDW Plt Count Lymph % (Auto) [place] % (Auto) Seg Neutrophils % Seg Neuts % (Manual) Lymphocytes % (Manual) Monocytes % (Manual) Nucleated RBC % Seg Neutrophils # Seg Neutrophils # Man Abs Lymphs (Manual) 631 L Chloride Carbon Dioxide Glucose POC Glucose 187 H 153 H Calcium Absolute CD3 Count 513 L Absolute CD4 Count 256 L % CD8 Cells 44 H % CD19 Cells 4 L Absolute CD19 Count 24 L 09/11/16 09/11/16 09/11/16 06:31 12:11 16:58 WBC RBC Hgb Hct MCV MCH RDW Plt Count Lymph % (Auto) [place] % (Auto) Seg Neutrophils % Seg Neuts % (Manual) Lymphocytes % (Manual) Monocytes % (Manual) Nucleated RBC % Seg Neutrophils # Seg Neutrophils # Man Abs Lymphs (Manual) Chloride Carbon Dioxide Glucose POC Glucose 109 H 115 H 280 H Calcium Absolute CD3 Count Absolute CD4 Count % CD8 Cells % CD19 Cells Absolute CD19 Count 09/14/16 09/14/1609/14/17 01:00 04:00 11:23 WBC 2.8 L 3.6 L RBC 2.81 L 2.66 L Hgb 9.0 L 8.8 L Hct 27.8 L 26.5 L MCV 99 H 100 H MCH 33 H RDW 17.1 H 17.0 H Plt Count 136 L 107 L Lymph % (Auto) [place] % (Auto) Seg Neutrophils % Seg Neuts % (Manual) 23.0 L Lymphocytes % (Manual) 65.0 H Monocytes % (Manual) 12.0 H Nucleated RBC % 1.0 H Seg Neutrophils # Seg Neutrophils # Man 0.6 L Abs Lymphs (Manual) Chloride Carbon Dioxide 19 L Glucose 128 H POC Glucose Calcium 7.6 L Absolute CD3 Count Absolute CD4 Count % CD8 Cells % CD19 Cells Absolute CD19 Count 09/18/16 09/18/16 09/19/16 08:49 21:07 06:05 WBC 4.2 L RBC 3.07 L Hgb 9.9 L Hct MCV 99 H MCH RDW 17.1 H Plt Count Lymph % (Auto) [place] % (Auto) Seg Neutrophils % Seg Neuts % (Manual) Lymphocytes % (Manual) Monocytes % (Manual) Nucleated RBC % Seg Neutrophils # Seg Neutrophils # Man Abs Lymphs (Manual) Chloride Carbon Dioxide Glucose POC Glucose 199 H 194 H Calcium Absolute CD3 Count Absolute CD4 Count % CD8 Cells % CD19 Cells Absolute CD19 Count 09/19/16 09/19/16 09/19/16 07:00 11:08 16:27 WBC RBC 3.09 L Hgb 9.9 L Hct 30.2 L MCV 98 H MCH RDW 17.0 H Plt Count Lymph % (Auto) [place] % (Auto) Seg Neutrophils % Seg Neuts % (Manual) Lymphocytes % (Manual) Monocytes % (Manual) Nucleated RBC % Seg Neutrophils # Seg Neutrophils # Man Abs Lymphs (Manual) Chloride Carbon Dioxide Glucose POC Glucose 191 H 236 H Calcium Absolute CD3 Count Absolute CD4 Count % CD8 Cells % CD19 Cells Absolute CD19 Count 09/19/16 09/20/16 21:19 05:56 WBC RBC Hgb Hct MCV MCH RDW Plt Count Lymph % (Auto) [place] % (Auto) Seg Neutrophils % Seg Neuts % (Manual) Lymphocytes % (Manual) Monocytes % (Manual) Nucleated RBC % Seg Neutrophils # Seg Neutrophils # Man Abs Lymphs (Manual) Chloride Carbon Dioxide Glucose POC Glucose 142 H 239 H Calcium Absolute CD3 Count Absolute CD4 Count % CD8 Cells % CD19 Cells Absolute CD19 Count
--- NOTE | 2016-09-20 10:56 | Discharge Summary ---
Providers - Providers Date of Admission: 09/08/16 03:34 Date of discharge: 09/20/16 Attending physician: MILLY HOGAN MD 09/09/16 13:42 PICC Line Placement [Consult to PICC Line RN] [CONS] Routine Reason For Exam: needs IV access Type Line:: PICC 09/17/16 10:51 Consult to Physician [CONS] Routine Consulting Provider: SANG BULL Reason For Exam: asthma exacerbation Place consult to:: DR. BULL Notified:: OFFICE Phone number called:: [phone] Was contact made?: Yes If yes, spoke with:: JEF Time called:: 12:07 Comment:: ELIZABETH NOTIFIED Primary care physician: PRINCIPAL CLERK TYPIST Hospitalization Reason for admission: abdominal pain Condition: Stable Hospital course: Patient is a 61-year-old woman history of HIV, seizure disorder, C. difficile, type 2 diabetes mellitus and hypertension who recently discharged from [facility] on daptomycin for polymicrobial bloodstream infection who presents with significant similar complaints of abdominal pain. On [address] abdomen and pelvis without contrast which showed morbid obesity, small hiatal hernia, IVC filter, no definite signs acute disease and abdomen of pelvis. CT abdomen and pelvis with contrast 09/08/2016 show hiatal hernia thickened stomach antrum which could be mild gastritis but no obstruction colitis or enteritis. IVC filter were recognized as well as a hysterectomy. She saw gastroenterology last visit. During hospitalization she was treated with IV antibiotics subsequently transitioned to by mouth. A PICC line was placed for access. She did have a viral load checked which was less than 20 and a CD4 count of 256. She was noted to be on antiretrovirals which was continued. Her CT of her chest was without abnormalities and CT of the abdomen did not show any bowel abnormalities. Coming closely end of her treatment she was noted to have significant wheezing with exacerbation of her COPD of note she has not been on any medication for this at home because she states that she ran out of her meds. She did receive Lasix in addition to steroid taper with good improvement today and is stable for discharge.her cultures, The second set with VRE, Staph epidermidis and diptheroids,-Repeat blood cultures negative. She did agree to follow with infectious disease in their office. I also recommended a pulmonary follow-up outpatient. She does have some obesity component complicated her breathing status. She'll be going home on a prolonged taper of steroids on atenolol for follow-up anticipate that inhaled corticosteroid will be started on the patient. Discharge diagnosis 1. Acute on chronic respiratory failure with hypoxia 2. Asthma exacerbation 3. Recurrent abdominal pains 4. HIV followed by infectious disease- continue ARTs 5. Leukopenia with Bacteremia 6. Type 2 diabetes mellitus: Adjust insulin 7. Metabolic acidosis- Disposition: DC/TX HOME UNDER HOME HEALTH Time spent for discharge: 35 MINS Core Measure Documentation - Palliative Care Palliative Care/ Comfort Measures: Not Applicable - Core Measures Any of the following diagnoses?: none - VTE Discharge Requirements Deep Vein Thrombosis/Pulmonary Embolism Present on Admission: No Exam - Physical Exam Narrative exam: VITAL SIGNS: Reviewed. GENERAL: The patient appeared, obese well nourished and normally developed. Vital signs as documented. HEAD: No signs of head trauma. EYES: Pupils are equal. Extraocular motions intact. EARS: Hearing grossly intact. MOUTH: Oropharynx is normal. NECK: No adenopathy, no JVD. CHEST: Chest with diffuse wheezing bilaterally. No, rales, or rhonchi. CARDIAC: Regular rate and rhythm. S1 and S2, without murmurs, gallops, or rubs. VASCULAR: No Edema. Peripheral pulses normal and equal in all extremities. ABDOMEN: Soft, without detectable tenderness. No sign of distention. No rebound or guarding, and no masses palpated. Bowel Sounds normal. MUSCULOSKELETAL: Good range of motion of all major joints. Extremities without clubbing, cyanosis or edema. NEUROLOGIC EXAM: Alert and oriented x 3. No focal sensory or strength deficits. Speech normal. Follows commands. PSYCHIATRIC: Mood normal. SKIN: No rash or lesions. - Constitutional Vitals: Temp Pulse Resp BP Pulse Ox 98.4 F 96 H 20 124/69 99 09/20/16 08:22 09/20/16 08:22 09/20/16 08:22 09/20/16 08:22 09/20/16 08:22 Plan Activity: advance as tolerated, fall precautions Diet: diabetic Special Instructions: record daily weights, record daily BP diary, record blood sugar diary, physical therapy, occupational therapy Follow up with: ALBERTO BOYLE MD [Primary Care Provider] - 3-5 Days SANG BULL MD [Staff Physician] - 7 Days ANTONIO SALAZAR MD [Staff Physician] - 7 Days Prescriptions: Phenytoin (25 mg/ml) [Dilantin] 300 mg PO QHS #30 oral.liqd Lantus VIAL 9 units SQ DAILY #30 Arformoterol Nebu [Brovana Nebu] 15 mcg IH Q12HRT #60 ml predniSONE [Deltasone] 10 mg PO .TAPER #48 tab Emtricitabine [Emtriva] 200 mg PO QDAY #30 capsule Raltegravir Potassium [Isentress] 400 mg PO BID #60 tablet Insulin Glargine [Lantus VIAL] 24 units SC HS #30 units Furosemide [Lasix TAB] 20 mg PO DAILY #30 tablet Diphenoxylate/Atropine [Lomotil] 1 tab PO Q8H PRN #30 tablet PRN Reason: Diarrhea HYDROcodone/APAP 5-325 [[place] 5-325 mg TAB] 1 each PO Q6H PRN #20 tablet PRN Reason: Pain, Moderate (4-6) guaiFENesin/CODEINE [Robitussin AC] 10 ml PO Q6H PRN #14 oral.liqd PRN Reason: Cough QUEtiapine [SEROquel] 50 mg PO BID #60 tablet Tenofovir [Viread] 300 mg PO QDAY #30 tablet Ipratropium/Albuterol Sulfate [Duoneb 0.5 mg-3 mg/3 ml Soln] 1 ampul IH TIDRT # 90 ampul.neb
[2016-09-20] MEDS ORDERED: TRIPLE ANTIBIOTIC TP ONE (13:00)
[2016-09-20 15:39] VITALS: BP 154/85
== END 2016-09-20 16:25 | disposition home health service (06) | DRG 974 ==
LOC: ED 11:46 → 3A 09-08 03:34
PROVIDERS: ADMIT Hospitalist; ATTEND Internal Medicine
PROC: 02HV33Z Insertion of Infusion Device into Superior Vena Cava, Percutaneous Approach (ICD-10-PCS; principal; 2016-09-09)
DX: B20 Human immunodeficiency virus [HIV] disease (principal); A41.9 Sepsis, unspecified organism; J96.21 Acute and chronic respiratory failure with hypoxia; R44.3 Hallucinations, unspecified; E87.2 Acidosis; J45.901 Unspecified asthma with (acute) exacerbation; J44.1 Chronic obstructive pulmonary disease with (acute) exacerbation; Z68.42 Body mass index [BMI] 45.0-49.9, adult; R19.7 Diarrhea, unspecified; F31.9 Bipolar disorder, unspecified; E11.9 Type 2 diabetes mellitus without complications; I11.0 Hypertensive heart disease with heart failure; I50.9 Heart failure, unspecified; G40.909 Epilepsy, unspecified, not intractable, without status epilepticus; R07.9 Chest pain, unspecified; E66.01 Morbid (severe) obesity due to excess calories; K29.70 Gastritis, unspecified, without bleeding; Z79.899 Other long term (current) drug therapy; Z79.4 Long term (current) use of insulin; Z88.8 Allergy status to other drugs, medicaments and biological substances; Z88.1 Allergy status to other antibiotic agents; Z90.710 Acquired absence of both cervix and uterus
CPT/HCPCS: 36415; 71010; 71020; 71275; 74177; 78452; 80048; 80307; 81001; 82024; 82140; 82271; 82550; 82553; 82962; 83690; 83880; 84484; 85007; 85025; 85027; 85610; 87040; 87045; 87086; 87400; 87493; 87536; 93005; 93010; 93017; 94640; 94644; 94760; 96365; 96367; 96375; A6250; A9502; J0696; J1200; J1650; J1815; J1940; J1956; J2270; J2405; J2543; J2785; J2920; J2930; J2997; J3370; J3475; J7030; J7040; J7512; Q9967

== ENCOUNTER 2016-11-12 09:29 | Inpatient (IN) | payer MEDICARE ==
[2016-11-12 11:40] LABS: Basophils % (Auto) 0.8 % (0.0-1.8); Eosinophils % (Auto) 2.1 % (0.0-4.3); Hematocrit 33.4 % (30.3-42.9); Hemoglobin 10.4 gm/dl (10.1-14.3); Mean Corpuscular HGB Conc 31 % (30-34); Mean Corpuscular Hemoglobin 30 pg (28-32); Mean Corpuscular Volume 96 fl (79-97); Platelet Count 192 K/mm3 (140-440); Red Blood Count 3.47 M/mm3 (3.65-5.03); Red Cell Distribution Width 17.7 % (13.2-15.2); White Blood Count 2.6 K/mm3 (4.5-11.0)
[2016-11-12 11:42] LABS: BUN/Creatinine Ratio 13.33; Blood Urea Nitrogen 8 mg/dL (7-17); Calcium 8.8 mg/dL (8.4-10.2); Carbon Dioxide 21 mmol/L (22-30); Glucose 128 mg/dL (65-100)
[2016-11-12 11:43] LABS: Anion Gap 19 mmol/L; Chloride 105.3 mmol/L (98-107); Potassium 3.3 mmol/L (3.6-5.0); Sodium 142 mmol/L (137-145)
--- NOTE | 2016-11-12 12:02 | XRay Report ---
Chest 2 views: Compared to 10/18/16. History: Shortness of breath Findings: Heart size is upper limit of normal. Trachea is midline. No consolidation, pneumothorax or pleural effusion. Impression: No acute cardiopulmonary findings.
[2016-11-12] MEDS ORDERED: K-DUR PO ONE (19:27)
[2016-11-12] MEDS ORDERED: ATROVENT IH ONE (19:31)
[2016-11-12] MEDS ORDERED: PROVENTIL IH ONE (19:31)
[2016-11-12] MEDS ORDERED: MAGNESIUM SULFATE 2GM/50ML 2 GM/50 ML BAG IV ONE (19:31)
--- NOTE | 2016-11-12 19:34 | Emergency Department Report ---
HPI - General Chief Complaint: Dyspnea/Respdistress Time Seen by Provider: 11/12/16 19:26 - HPI HPI: This is a 61-year-old [place] female presents to the emergency Department from home by EMS with complaint of a three-day history of shortness of breath. The shortness of breath worsens with exertion and is also associated with a dry cough. The patient says that for the past day or so she is also been having some dysuria, nausea without vomiting and some diarrhea and some generalized abdominal discomfort. She has a past nuchal history of asthma, CHF, insulin and diabetes, HIV and has a psychiatric history of bipolar disorder and schizophrenia. Patient has a primary care doctor but cannot member the names currently. She has been using her albuterol inhaler without much relief. No recent travel or sick contacts at home. ED Past Medical Hx - Past Medical History Previous Medical History?: Yes Hx Hypertension: Yes Hx Congestive Heart Failure: Yes Hx Diabetes: Yes Hx Seizures: Yes Hx Psychiatric Treatment: Yes (bipolar disorder; schziphornia) Hx Asthma: Yes Hx COPD: Yes Hx HIV: Yes (last CD4 count 344 (~July 2016)) Additional medical history: CDIFF - Surgical History Additional Surgical History: hysterectomy; rt arm skin graph - Social History Smoking Status: Never Smoker Substance Use Type: None - Medications Home Medications: Home Medications Medication Instructions Recorded Confirmed Last Taken Type NovoLOG Flexpen 9 units SC DAILY 09/09/16 10/08/16 Unknown History Diphenoxylate/Atropine [Lomotil] 1 tab PO Q8H PRN #30 tablet 09/20/16 10/08/16 Unknown Rx Emtricitabine [Emtriva] 200 mg PO QDAY #30 capsule 09/20/16 10/08/16 Unknown Rx Lantus VIAL 9 units SQ DAILY #30 09/20/16 10/08/16 Unknown Rx Raltegravir Potassium [Isentress] 400 mg PO BID #60 tablet 09/20/16 10/08/16 Unknown Rx Compressor, For Nebulizer [Ebase 1 each MC DAILY #1 each 09/25/16 10/08/16 Unknown Rx Controller] Ipratropium [Atrovent NEB] 0.5 mg IH Q8HRT #1 box 09/25/16 10/08/16 Unknown Rx Arformoterol Nebu [Brovana Nebu] 15 mcg IH Q12HRT #60 ml 10/21/16 Unknown Rx Azithromycin [Zithromax TAB] 250 mg PO QDAY #6 tablet 10/21/16 Unknown Rx Furosemide [Lasix TAB] 20 mg PO DAILY #30 tablet 10/21/16 Unknown Rx HYDROcodone/APAP 5-325 [[place] 1 each PO Q6H PRN #20 tablet 10/21/16 Unknown Rx 5-325 mg TAB] Insulin Glargine [Lantus VIAL] 24 units SC HS #30 units 10/21/16 Unknown Rx Ipratropium/Albuterol Sulfate 1 ampul IH TIDRT #90 ampul.neb 10/21/16 Unknown Rx [Duoneb 0.5 mg-3 mg/3 ml Soln] Levofloxacin [Levaquin TAB] 750 mg PO Q24HR #5 tablet 10/21/16 Unknown Rx Phenytoin (25 mg/ml) [Dilantin] 300 mg PO QHS #30 oral.liqd 10/21/16 Unknown Rx Prednisone [predniSONE 10 mg 10 mg PO .TAPER #1 tab.ds.pk 10/21/16 Unknown Rx (6-Day Pack, 21 Tabs)] QUEtiapine [SEROquel] 50 mg PO BID #60 tablet 10/21/16 Unknown Rx Tenofovir [Viread] 300 mg PO QDAY tablet 10/21/16 Unknown Rx diphenhydrAMINE [Benadryl CAP] 25 mg PO Q6H PRN #30 capsule 10/21/16 Unknown Rx guaiFENesin/CODEINE [Robitussin AC] 10 ml PO Q6H PRN #30 oral.liqd 10/21/16 Unknown Rx oxyCODONE /ACETAMINOPHEN [Percocet 1 tab PO Q6H PRN #30 tablet 10/21/16 Unknown Rx 5/325 mg] ED Review of Systems ROS: Stated complaint: CARL X 3DAYS Other details as noted in HPI Comment: All other systems reviewed and negative Constitutional: denies: chills, fever Eyes: denies: eye pain, eye discharge, vision change ENT: denies: ear pain, throat pain Respiratory: cough, shortness of breath, SOB with exertion, wheezing Cardiovascular: denies: palpitations, edema Gastrointestinal: abdominal pain, nausea, vomiting, diarrhea Genitourinary: dysuria. denies: discharge Musculoskeletal: denies: back pain, joint swelling, arthralgia Skin: denies: rash, lesions Neurological: denies: headache, weakness, paresthesias Physical Exam - Physical Exam Vital Signs: Vital Signs 11/12/16 10:11 Temperature 98.3 F Pulse Rate 99 H Blood Pressure 164/120 O2 Sat by Pulse 98 Oximetry Physical Exam: GENERAL: The patient is well-developed well-nourished. HEENT: Normocephalic. Atraumatic. Extraocular motions are intact. Patient has moist mucous membranes. Pupils equal reactive to light bilaterally. NECK: Supple. Trachea is midline. CHEST/LUNGS: Moderate wheezing throughout the chest. Productive sounding cough heard during examination. There is tachypnea but no accessory muscle use. There is no respiratory distress noted. HEART/CARDIOVASCULAR: Regular. There is no tachycardia. There is no gallop rub or murmur. ABDOMEN: Abdomen is soft, nontender. Patient has normal bowel sounds. There is no abdominal distention. Morbidly obese habitus. SKIN: Skin is warm and dry. NEURO: The patient is awake, alert, and oriented. The patient is cooperative. The patient has no focal neurologic deficits. The patient has normal speech. MUSCULOSKELETAL: There is no tenderness or deformity. There is no limitation range of motion. There is no evidence of acute injury. ED Course Vital Signs 11/12/16 10:11 Temperature 98.3 F Pulse Rate 99 H Blood Pressure 164/120 O2 Sat by Pulse 98 Oximetry - EJ/Peripheral Line Arm R Time Out Performed: Yes Indications: nurses unable to establis Skin Cleansed in Sterile Fashion: Yes Size: 20 Dressing Placed: Tegaderm, tape Patient Tolerated Procedure: well ED Medical Decision Making - Lab Data Result diagrams: 11/12/16 10:55 11/12/16 10:55 - EKG Data -: EKG Interpreted by Me EKG shows normal: sinus rhythm, axis, intervals, QRS complexes (LVH), ST-T waves Rate: normal - EKG Data When compared to previous EKG there are: previous EKG unavailable Interpretation: LVH - Radiology Data Radiology results: image reviewed interpreted by me: Chest x-ray did not show any acute process. Heart is normal shape and size. No effusions. No pneumothorax. No signs of pneumonia seen. - Medical Decision Making 61-year-old female presents emergency Department with complaint of a couple days of shortness of breath, coughing and wheezing that is unresponsive to her albuterol inhalers at home. Patient's labs show some leukopenia and mild hypokalemia. Negative troponins 2 this 4. BNP is low and there is low suspicion for CHF. Chest x-ray does not show any acute process. The patient was given Solu-Medrol, magnesium and breathing treatments. Upon reevaluation the patient continues to have significant wheezing and/or bronchospasm. For this reason the patient will be admitted to hospital further evaluation and treatment has been accepted for admission by the hospitalist, Dr. Krause. - Differential Diagnosis COPD, Pneumonia, AIDS, DE, Asthma Critical Care Time: No Critical care attestation.: If time is entered above; I have spent that time in minutes in the direct care of this critically ill patient, excluding procedure time. ED Disposition Clinical Impression: Acute exacerbation of chronic obstructive pulmonary disease (COPD), Bronchospasm Dyspnea Qualifiers: Dyspnea type: shortness of breath Qualified Code(s): R06.02 - Shortness of breath Disposition: OP ADMITTED IP TO THIS HOSP Is pt being admited?: Yes Condition: Stable Time of Disposition: 02:22
--- NOTE | 2016-11-12 21:05 | Admit Criteria Form ---
Admission Criteria Documentation: COPD Clinical Indications for Admission to Inpatient Care (Place 'X' for any and all applicable criteria): Admission is indicated for ANY ONE of the following (1)(2)(3): [ ]I. Acute exacerbation by high-risk comorbidity (e.g., pneumonia, dysrhythmia, heart failure, pleural effusion, pneumothorax) or severe underlying COPD (e.g., steroid dependent) [X ]II. Inpatient admission required rather than observation care (see Chronic Obstructive Pulmonary Disease: Observation Care) because of ANY ONE of the following: [X ]a) New or pre-existing signs or symptoms of COPD (eg, dyspnea or Tachypnea at rest or with minimal activity) that persist despite outpatient and observation care treatment [ ]b) New-onset hypoxemia (room air SaO2 less than 90%, PO2 less than 60 mm Hg (8.0 kPa)) that persists despite outpatient and observation care treatment [ ]c) Worsening of pre-existing hypoxemia (eg, new or increased requirement for supplemental oxygen to maintain oxygenation at baseline level) that persists despite outpatient and observation care treatment, with oxygen treatment needs performable only in acute inpatient setting [ ]d) Hypercarbia (PCO2 greater than 40 mm Hg (5.3 kPa))-induced respiratory acidosis (pH less than 7.35) that persists despite outpatient and observation care treatment [ ]e) Supplemental oxygen or respiratory treatments for over 24 hours that are performable only in acute inpatient setting [ ]f) Chest tube placement with active evacuation (e.g., suction, drainage) (5) [ ]g) Other condition, treatment or monitoring requiring inpatient admission [ ]III. Planned invasive surgical or diagnostic procedures requiring acute- care hospitalization [ ]IV. Acute respiratory failure (e.g., uncompensated hypercarbia, severe hypoxemia) [ ]V. Severe comorbid condition (e.g., severe steroid myopathy, acute vertebral fracture) that has acutely worsened pulmonary function [ ]. Confusion state, lethargy, obtundation, stupor or coma Extended stay beyond goal length of stay may be needed for (31)(32): [ ]a ) Respiratory Failure. [ ]b) Severe or persisting hypoxemia or hypercarbia [ ]c) Severe or persistent dyspnea [ ]d) Comorbidities (e.g. chronic heart failure, atrial fibrillation with rapid response, pneumonia) [ ]e) Malnutrition The original [facility] content created by [facility] has been revised. The portions of the content which have been revised are identified through the use of italic text or in bold, and [facility] has neither reviewed nor approved the modified material. All other unmodified content is copyright [facility]. Please see references footnoted in the original [facility] edition 2016 Admission Criteria Met: Yes
[2016-11-12 21:11] LABS: Bilirubin,Urine NEG (Negative); Blood,Urine NEG (Negative); Ketones,Urine TR mg/dL (Negative); Leukocyte Esterase,Urine TR (Negative); Mucus,Urine 3+ /HPF; Nitrite,Urine NEG (Negative)
[2016-11-12] MEDS ORDERED: ZOFRAN IM ONE (21:23)
[2016-11-12] MEDS ORDERED: MORPHINE IV ONE (21:56)
[2016-11-12 22:16] LABS: Alanine Aminotransferase 28 units/L (7-56); Albumin 3.5 g/dL (3.9-5); Albumin/Globulin Ratio 1.4 %; Alkaline Phosphatase 75 units/L (35-129); Bilirubin,Total 0.3 mg/dL (0.1-1.2)
[2016-11-12 22:18] LABS: Bilirubin,Direct < 0.2 mg/dL (0-0.2); Bilirubin,Indirect 0.1 mg/dL
[2016-11-13] MEDS ORDERED: ROBITUSSIN AC PO PRN (01:21)
--- NOTE | 2016-11-13 01:34 | History and Physical Report ---
History of Present Illness Date of examination: 11/13/16 Chief complaint: SOB History of present illness: 61-year-old -[place] female with past medical history significant for COPD, hypertension, diabetes, CHF, seizure, HIV presented to the emergency department complaining of shortness of breath, cough which is productive of white sputum, subjective fever. She also complains pleuritic chest pain was just worsened with cough. Patient is also complaining of abdominal pain. REVIEW OF SYSTEMS: GENERAL: no weight change, no fatigue, no fever HEAD: no head ache EYES: no blurry vision, no acute visual loss EARS: no hearing loss, no discharge, no earache NOSE: no stuffiness, no sneezing, no discharge MOUTH, THROAT AND NECK: no bleeding gums, no sore throat, no swollen neck CARDIAC: no palpitations, no dyspnea on exertion, no orthopnea, no PND, no edema , no chest pain RESPIRATORY: + shortness of breath, no wheeze, + cough, + sputum, no hemoptysis , no asthma GI: no decreased appetite, no nausea, no vomiting, no dysphagia, no diarrhea, no constipation, no abdominal pain URINARY: no change in frequency, no urgency, no polyuria, no hematuria, no incontinence MUSCULOSKELETAL: no muscle weakness, no pain, no joint stiffness NEUROLOGIC: no loss of sensation/numbness, no tingling, no tremors, no weakness/ paralysis HEMATOLOGIC: no anemia, no easy bruising SKIN: no rashes ENDOCRINE: no heat/cold intolerance, no polyuria, no polydipsia, no thyroid problems, no diabetes PSYCHIATRIC: no anxiety, no depression, no suicidal ideations Past History Past Medical History: COPD, diabetes, heart failure, hypertension, seizures Past Surgical History: hysterectomy, Other (skin graft) Social history: full code. denies: smoking, alcohol abuse, prescription drug abuse, IV drug use Family history: denies: no significant family history Medications and Allergies Allergies Allergy/AdvReac Type Severity Reaction Status Date / Time ibuprofen [From Motrin] Allergy Shortness Verified 10/18/16 11:05 of Breath shrimp Allergy Shortness Verified 10/18/16 11:05 of Breath tetracycline Allergy Shortness Verified 10/18/16 11:05 of Breath Home Medications Medication Instructions Recorded Confirmed Last Taken Type NovoLOG Flexpen 9 units SC DAILY 09/09/16 10/08/16 Unknown History Diphenoxylate/Atropine [Lomotil] 1 tab PO Q8H PRN #30 tablet 09/20/16 10/08/16 Unknown Rx Emtricitabine [Emtriva] 200 mg PO QDAY #30 capsule 09/20/16 10/08/16 Unknown Rx Lantus VIAL 9 units SQ DAILY #30 09/20/16 10/08/16 Unknown Rx Raltegravir Potassium [Isentress] 400 mg PO BID #60 tablet 09/20/16 10/08/16 Unknown Rx Compressor, For Nebulizer [Ebase 1 each MC DAILY #1 each 09/25/16 10/08/16 Unknown Rx Controller] Ipratropium [Atrovent NEB] 0.5 mg IH Q8HRT #1 box 09/25/16 10/08/16 Unknown Rx Arformoterol Nebu [Brovana Nebu] 15 mcg IH Q12HRT #60 ml 10/21/16 Unknown Rx Azithromycin [Zithromax TAB] 250 mg PO QDAY #6 tablet 10/21/16 Unknown Rx Furosemide [Lasix TAB] 20 mg PO DAILY #30 tablet 10/21/16 Unknown Rx HYDROcodone/APAP 5-325 [[place] 1 each PO Q6H PRN #20 tablet 10/21/16 Unknown Rx 5-325 mg TAB] Insulin Glargine [Lantus VIAL] 24 units SC HS #30 units 10/21/16 Unknown Rx Ipratropium/Albuterol Sulfate 1 ampul IH TIDRT #90 ampul.neb 10/21/16 Unknown Rx [Duoneb 0.5 mg-3 mg/3 ml Soln] Levofloxacin [Levaquin TAB] 750 mg PO Q24HR #5 tablet 10/21/16 Unknown Rx Phenytoin (25 mg/ml) [Dilantin] 300 mg PO QHS #30 oral.liqd 10/21/16 Unknown Rx Prednisone [predniSONE 10 mg 10 mg PO .TAPER #1 tab.ds.pk 10/21/16 Unknown Rx (6-Day Pack, 21 Tabs)] QUEtiapine [SEROquel] 50 mg PO BID #60 tablet 10/21/16 Unknown Rx Tenofovir [Viread] 300 mg PO QDAY tablet 10/21/16 Unknown Rx diphenhydrAMINE [Benadryl CAP] 25 mg PO Q6H PRN #30 capsule 10/21/16 Unknown Rx guaiFENesin/CODEINE [Robitussin AC] 10 ml PO Q6H PRN #30 oral.liqd 10/21/16 Unknown Rx oxyCODONE /ACETAMINOPHEN [Percocet 1 tab PO Q6H PRN #30 tablet 10/21/16 Unknown Rx 5/325 mg] Active Meds: Active Medications Acetaminophen/Hydrocodone Bitart ([place] 5/325) 1 each PO Q6H PRN PRN Reason: Pain, Moderate (4-6) Albuterol/Ipratropium (Duoneb 0.5 Mg-3 Mg/3 Ml Soln) 1 ampul IH Q4HRT [facility] Arformoterol Tartrate (Brovana Nebu) 15 mcg IH Q12HRT [facility] Diphenhydramine HCl (Benadryl) 25 mg PO Q6H PRN PRN Reason: Itching Emtricitabine (Emtriva) 200 mg PO QDAY [facility] Enoxaparin Sodium (Lovenox) 40 mg SUB-Q QDAY [facility] Furosemide (Lasix) 20 mg PO DAILY [facility] Levofloxacin/Dextrose (Levaquin 750mg/150ml) 750 mg in 150 mls @ 100 mls/hr IV Q24HR [facility] Methylprednisolone Sodium Succinate (Solu-Medrol) 80 mg IV Q8H [facility] Miscellaneous Medication (Insulin Glargine) 24 units SC HS [facility] Miscellaneous Medication (Lantus Vial) 9 units SQ QAM [facility] Morphine Sulfate (Morphine) 2 mg IV Q4H PRN PRN Reason: Pain, Moderate (4-6) Pseudoephedrine/Acetam/Chlorphenir (Robitussin Ac) 10 ml PO Q6H PRN PRN Reason: Cough Quetiapine Fumarate (Seroquel) 50 mg PO BID [facility] Raltegravir (Isentress) 400 mg PO BID [facility] Tenofovir Disoproxil Fumarate (Viread) 300 mg PO QDAY [facility] Exam - Physical Exam Narrative exam: In moderate cardiopulmonary distress. The patient is obese. Vital signs as documented. Head exam is unremarkable. No scleral icterus . Neck is without jugular venous distension, thyromegaly, or carotid bruits. Lungs wheezing noted over the chest. Cardiac exam reveals regular rate and Rhythm. First and second heart sounds normal. No murmurs, rubs or gallops. Abdominal exam reveals normal bowel sounds, no masses, no organomegaly and no aortic enlargement. Extremities are nonedematous and both femoral and pedal pulses are normal. HEART DOCTOR: Alert and oriented 3. No focal weakness. - Constitutional Vitals: Temp Pulse Resp BP Pulse Ox 98.3 F 114 H 19 146/85 99 11/12/16 10:11 11/12/16 22:01 11/12/16 22:01 11/12/16 22:01 11/12/16 22:01 Results - Labs CBC & Chem 7: 11/12/16 10:55 11/12/16 10:55 Labs: Laboratory Last Values WBC 2.6 K/mm3 (4.5-11.0) L 11/12/16 10:55 RBC 3.47 M/mm3 (3.65-5.03) L 11/12/16 10:55 Hgb 10.4 gm/dl (10.1-14.3) 11/12/16 10:55 Hct 33.4 % (30.3-42.9) 11/12/16 10:55 MCV 96 fl (79-97) 11/12/16 10:55 MCH 30 pg (28-32) 11/12/16 10:55 MCHC 31 % (30-34) 11/12/16 10:55 RDW 17.7 % (13.2-15.2) H 11/12/16 10:55 Plt Count 192 K/mm3 (140-440) 11/12/16 10:55 Lymph % (Auto) 37.6 % (13.4-35.0) H 11/12/16 10:55 [place] % (Auto) 13.2 % (0.0-7.3) H 11/12/16 10:55 Eos % (Auto) 2.1 % (0.0-4.3) 11/12/16 10:55 Baso % (Auto) 0.8 % (0.0-1.8) 11/12/16 10:55 Lymph # 1.0 K/mm3 (1.2-5.4) L 11/12/16 10:55 [place] # 0.3 K/mm3 (0.0-0.8) 11/12/16 10:55 Eos # 0.1 K/mm3 (0.0-0.4) 11/12/16 10:55 Baso # 0.0 K/mm3 (0.0-0.1) 11/12/16 10:55 Seg Neutrophils % 46.3 % (40.0-70.0) 11/12/16 10:55 Seg Neutrophils # 1.2 K/mm3 (1.8-7.7) L 11/12/16 10:55 Sodium 142 mmol/L (137-145) 11/12/16 10:55 Potassium 3.3 mmol/L (3.6-5.0) L 11/12/16 10:55 Chloride 105.3 mmol/L (98-107) 11/12/16 10:55 Carbon Dioxide 21 mmol/L (22-30) L 11/12/16 10:55 Anion Gap 19 mmol/L 11/12/16 10:55 BUN 8 mg/dL (7-17) 11/12/16 10:55 Creatinine 0.6 mg/dL (0.7-1.2) L 11/12/16 10:55 Estimated GFR > 60 ml/min 11/12/16 10:55 BUN/Creatinine Ratio 13.33 % 11/12/16 10:55 Glucose 128 mg/dL (65-100) H 11/12/16 10:55 Calcium 8.8 mg/dL (8.4-10.2) 11/12/16 10:55 Total Bilirubin 0.3 mg/dL (0.1-1.2) 11/12/16 21:33 Direct Bilirubin < 0.2 mg/dL (0-0.2) 11/12/16 21:33 Indirect Bilirubin 0.1 mg/dL 11/12/16 21:33 AST 31 units/L (5-40) 11/12/16 21:33 ALT 28 units/L (7-56) 11/12/16 21:33 Alkaline Phosphatase 75 units/L (35-129) 11/12/16 21:33 Troponin T < 0.010 ng/mL (0.00-0.029) 11/12/16 21:33 NT-Pro-B Natriuret Pep 104.0 pg/mL (0-900) 11/12/16 21:33 Total Protein 6.0 g/dL (6.3-8.2) L 11/12/16 21:33 Albumin 3.5 g/dL (3.9-5) L 11/12/16 21:33 Albumin/Globulin Ratio 1.4 % 11/12/16 21:33 Urine Color Yellow (Yellow) 11/12/16 Unknown Urine Turbidity Cloudy (Clear) 11/12/16 Unknown Urine pH 5.0 (5.0-7.0) 11/12/16 Unknown Ur Specific [place] 1.027 (1.003-1.030) 11/12/16 Unknown Urine Protein 30 mg/dl mg/dL (Negative) 11/12/16 Unknown Urine Glucose (UA) 50 mg/dL (Negative) 11/12/16 Unknown Urine Ketones Tr mg/dL (Negative) 11/12/16 Unknown Urine Blood Neg (Negative) 11/12/16 Unknown Urine Nitrite Neg (Negative) 11/12/16 Unknown Urine Bilirubin Neg (Negative) 11/12/16 Unknown Urine Urobilinogen 2.0 mg/dL (<2.0) 11/12/16 Unknown Ur Leukocyte Esterase Tr (Negative) 11/12/16 Unknown Urine WBC (Auto) 23.0 /HPF (0.0-6.0) H 11/12/16 Unknown Urine RBC (Auto) 34.0 /HPF (0.0-6.0) 11/12/16 Unknown U Epithel Cells (Auto) 8.0 /HPF (0-13.0) 11/12/16 Unknown Amorphous Crystals 1+ 11/12/16 Unknown Urine Mucus 3+ /HPF 11/12/16 Unknown Assessment and Plan Assessment and plan: COPD exacerbation -Solu-Medrol, IV Levaquin, breathing treatments, Duoneb Diastolic CHF - Continue home medications Seizure - Continue home medication HIV/AIDS - Continue antiretrovirals Leukopenia -Likely from HIV -We will monitor Diabetes mellitus type 2 -Continue insulin regimen Hypokalemia - Repleted Prophylaxis Lovenox Disposition -Admit to the floor Advance Directives: Yes VTE prophylaxis?: Chemical Plan of care discussed with patient/family: Yes
[2016-11-13] MEDS: DUONEB 0.5 MG-3 MG/3 ML SOLN IH SCH ×8 (01:56→23:34)
[2016-11-13] MEDS ORDERED: LEVAQUIN 750MG/150ML 750 MG/150 ML BAG IV ONE (02:05)
[2016-11-13] MEDS: LEVAQUIN 750MG/150ML 750 MG/150 ML BAG IV SCH ×2 (02:19→09:09)
[2016-11-13] MEDS: NORCO 5/325 PO PRN (04:50)
[2016-11-13] MEDS: BROVANA NEBU IH SCH ×2 (08:08→20:11)
[2016-11-13] MEDS: ISENTRESS PO SCH ×2 (09:10→21:44)
[2016-11-13] MEDS: LASIX PO SCH (09:11)
[2016-11-13] MEDS: LOVENOX SUB-Q SCH (09:11)
[2016-11-13] MEDS: EMTRIVA PO SCH (09:31)
[2016-11-13] MEDS ORDERED: LEVEMIR SUB-Q SCH (10:00)
[2016-11-13] MEDS ORDERED: INSULIN GLARGINE SQ SCH (10:00)
--- NOTE | 2016-11-13 11:14 | Consultation ---
History of Present Illness Consult date: 11/13/16 Requesting physician: MILLY HOGAN Reason for consult: COPD History of present illness: PULMONARY/CCM CONSULT NOTE (Full dictation # [id number]) Please see dictated notes for full details Past History Past Medical History: COPD, diabetes, heart failure, hypertension, seizures Past Surgical History: hysterectomy, Other (skin graft) Social history: full code. denies: smoking, alcohol abuse, prescription drug abuse, IV drug use Family history: denies: no significant family history Medications and Allergies Allergies Allergy/AdvReac Type Severity Reaction Status Date / Time ibuprofen [From Motrin] Allergy Shortness Verified 10/18/16 11:05 of Breath shrimp Allergy Shortness Verified 10/18/16 11:05 of Breath tetracycline Allergy Shortness Verified 10/18/16 11:05 of Breath Home Medications Medication Instructions Recorded Confirmed Last Taken Type NovoLOG Flexpen 9 units SC DAILY 09/09/16 10/08/16 Unknown History Diphenoxylate/Atropine [Lomotil] 1 tab PO Q8H PRN #30 tablet 09/20/16 10/08/16 Unknown Rx Emtricitabine [Emtriva] 200 mg PO QDAY #30 capsule 09/20/16 10/08/16 Unknown Rx Lantus VIAL 9 units SQ DAILY #30 09/20/16 10/08/16 Unknown Rx Raltegravir Potassium [Isentress] 400 mg PO BID #60 tablet 09/20/16 10/08/16 Unknown Rx Compressor, For Nebulizer [Ebase 1 each MC DAILY #1 each 09/25/16 10/08/16 Unknown Rx Controller] Ipratropium [Atrovent NEB] 0.5 mg IH Q8HRT #1 box 09/25/16 10/08/16 Unknown Rx Arformoterol Nebu [Brovana Nebu] 15 mcg IH Q12HRT #60 ml 10/21/16 Unknown Rx Azithromycin [Zithromax TAB] 250 mg PO QDAY #6 tablet 10/21/16 Unknown Rx Furosemide [Lasix TAB] 20 mg PO DAILY #30 tablet 10/21/16 Unknown Rx HYDROcodone/APAP 5-325 [[place] 1 each PO Q6H PRN #20 tablet 10/21/16 Unknown Rx 5-325 mg TAB] Insulin Glargine [Lantus VIAL] 24 units SC HS #30 units 10/21/16 Unknown Rx Ipratropium/Albuterol Sulfate 1 ampul IH TIDRT #90 ampul.neb 10/21/16 Unknown Rx [Duoneb 0.5 mg-3 mg/3 ml Soln] Levofloxacin [Levaquin TAB] 750 mg PO Q24HR #5 tablet 10/21/16 Unknown Rx Phenytoin (25 mg/ml) [Dilantin] 300 mg PO QHS #30 oral.liqd 10/21/16 Unknown Rx Prednisone [predniSONE 10 mg 10 mg PO .TAPER #1 tab.ds.pk 10/21/16 Unknown Rx (6-Day Pack, 21 Tabs)] QUEtiapine [SEROquel] 50 mg PO BID #60 tablet 10/21/16 Unknown Rx Tenofovir [Viread] 300 mg PO QDAY tablet 10/21/16 Unknown Rx diphenhydrAMINE [Benadryl CAP] 25 mg PO Q6H PRN #30 capsule 10/21/16 Unknown Rx guaiFENesin/CODEINE [Robitussin AC] 10 ml PO Q6H PRN #30 oral.liqd 10/21/16 Unknown Rx oxyCODONE /ACETAMINOPHEN [Percocet 1 tab PO Q6H PRN #30 tablet 10/21/16 Unknown Rx 5/325 mg] Active Meds: Active Medications Acetaminophen/Hydrocodone Bitart ([place] 5/325) 1 each PO Q6H PRN PRN Reason: Pain, Moderate (4-6) Last Admin: 11/13/16 04:50 Dose: 1 each Albuterol/Ipratropium (Duoneb 0.5 Mg-3 Mg/3 Ml Soln) 1 ampul IH Q4HRT [facility] Last Admin: 11/13/16 10:28 Dose: 1 ampul Arformoterol Tartrate (Brovana Nebu) 15 mcg IH Q12HRT [facility] Last Admin: 11/13/16 08:08 Dose: 15 mcg Diphenhydramine HCl (Benadryl) 25 mg PO Q6H PRN PRN Reason: Itching Emtricitabine (Emtriva) 200 mg PO QDAY [facility] Last Admin: 11/13/16 09:31 Dose: 200 mg Enoxaparin Sodium (Lovenox) 40 mg SUB-Q QDAY [facility] Last Admin: 11/13/16 09:11 Dose: 40 mg Furosemide (Lasix) 20 mg PO DAILY [facility] Last Admin: 11/13/16 09:11 Dose: 20 mg Levofloxacin/Dextrose (Levaquin 750mg/150ml) 750 mg in 150 mls @ 100 mls/hr IV Q24HR [facility] Last Admin: 11/13/16 09:09 Dose: 100 mls/hr Insulin Detemir (Levemir) 24 units SUB-Q QHS [facility] Insulin Detemir (Levemir) 9 units SUB-Q QAM [facility] Last Admin: 11/13/16 09:12 Dose: 9 units Methylprednisolone Sodium Succinate (Solu-Medrol) 80 mg IV Q8H [facility] Last Admin: 11/13/16 09:29 Dose: 80 mg Morphine Sulfate (Morphine) 2 mg IV Q4H PRN PRN Reason: Pain, Moderate (4-6) Nitrofurantoin Macrocrystals (Macrobid) 100 mg PO Q12HR [facility] Pseudoephedrine/Acetam/Chlorphenir (Robitussin Ac) 10 ml PO Q6H PRN PRN Reason: Cough Quetiapine Fumarate (Seroquel) 50 mg PO BID [facility] Last Admin: 11/13/16 09:10 Dose: 50 mg Raltegravir (Isentress) 400 mg PO BID [facility] Last Admin: 11/13/16 09:10 Dose: 400 mg Tenofovir Disoproxil Fumarate (Viread) 300 mg PO QDAY [facility] Physical Examination Vital signs: Vital Signs Temp Pulse BP Pulse Ox 98.3 F 99 H 164/120 98 11/12/16 10:11 11/12/16 10:11 11/12/16 10:11 11/12/16 10:11 Results - Laboratory Findings CBC and BMP: 11/14/16 05:17 11/14/16 05:17
[2016-11-13] MEDS: VIREAD PO SCH (11:46)
[2016-11-13] MEDS: MACROBID PO SCH ×2 (11:46→21:43)
--- NOTE | 2016-11-13 16:05 | Event Note ---
Date: 11/13/16 PATIENT SEEN AND EXAMINED, CONTINUES WITH MULTIPLE NON CONNECTING COMPLAINTS. ALSO REPORTING BRBPR- will check stool for occult blood.
[2016-11-13] MEDS: BENADRYL PO PRN (20:41)
[2016-11-13] MEDS: MORPHINE IV PRN (20:41)
[2016-11-13] MEDS: ZOFRAN IV PRN (21:43)
[2016-11-13] MEDS ORDERED: INSULIN GLARGINE 24 UNIT SC SCH (22:00)
[2016-11-13] MEDS: DILANTIN PO SCH (22:56)
[2016-11-13] MEDS: LEVEMIR SUB-Q SCH (22:58)
[2016-11-14] MEDS: DUONEB 0.5 MG-3 MG/3 ML SOLN IH SCH ×5 (03:05→21:55)
[2016-11-14] MEDS: MORPHINE IV PRN ×2 (05:14→11:30)
[2016-11-14] MEDS: ZOFRAN IV PRN ×2 (05:14→11:30)
[2016-11-14 05:45] LABS: Anion Gap 19 mmol/L; BUN/Creatinine Ratio 11.25; Blood Urea Nitrogen 9 mg/dL (7-17); Calcium 8.9 mg/dL (8.4-10.2); Carbon Dioxide 23 mmol/L (22-30); Chloride 103.4 mmol/L (98-107); Glucose 416 mg/dL (65-100); Potassium 3.9 mmol/L (3.6-5.0); Sodium 141 mmol/L (137-145)
[2016-11-14 05:48] LABS: Hematocrit 30.3 % (30.3-42.9); Hemoglobin 9.6 gm/dl (10.1-14.3); Mean Corpuscular HGB Conc 32 % (30-34); Mean Corpuscular Hemoglobin 31 pg (28-32); Mean Corpuscular Volume 96 fl (79-97); Platelet Count 216 K/mm3 (140-440); Red Blood Count 3.16 M/mm3 (3.65-5.03); Red Cell Distribution Width 17.4 % (13.2-15.2); White Blood Count 3.7 K/mm3 (4.5-11.0)
[2016-11-14] MEDS: BROVANA NEBU IH SCH ×2 (08:50→21:55)
[2016-11-14] MEDS ORDERED: LEVEMIR SUB-Q SCH (10:00)
[2016-11-14] MEDS: LEVAQUIN 750MG/150ML 750 MG/150 ML BAG IV SCH (10:49)
[2016-11-14] MEDS: EMTRIVA PO SCH (10:49)
[2016-11-14] MEDS: ISENTRESS PO SCH ×2 (10:50→22:29)
[2016-11-14] MEDS: BENADRYL PO PRN ×2 (10:50→18:14)
[2016-11-14] MEDS: VIREAD PO SCH (10:50)
[2016-11-14] MEDS: MACROBID PO SCH ×2 (10:50→22:30)
[2016-11-14] MEDS: LASIX PO SCH (10:50)
[2016-11-14] MEDS: LOVENOX SUB-Q SCH (10:51)
--- NOTE | 2016-11-14 11:16 | Progress Note ---
Subjective Date of service: 11/14/16 Principal diagnosis: [place]uet COPD exacerbation Interval history: Seen and examined at bedside; 24 hour events reviewed; nursing and respiratory care staff consulted; no adverse overnight events reported to me; Objective Vital Signs - 12hr 11/13/16 11/13/16 11/14/16 23:33 23:43 01:42 Temperature 98.2 F Pulse Rate Pulse Rate [ 87 87 Anterior Bilateral Throughout] Pulse Rate [ 114 H Left Radial] Respiratory 20 Rate Respiratory 18 18 Rate [Anterior Bilateral Throughout] Blood Pressure 127/68 [Left Radial Artery] O2 Sat by Pulse 98 Oximetry 11/14/16 11/14/16 11/14/16 03:06 03:15 04:10 Temperature 98.2 F Pulse Rate Pulse Rate [ 86 98 H Anterior Bilateral Throughout] Pulse Rate [ 97 H Left Radial] Respiratory 20 Rate Respiratory 18 18 Rate [Anterior Bilateral Throughout] Blood Pressure 154/84 [Left Radial Artery] O2 Sat by Pulse 99 Oximetry 11/14/16 11/14/16 11/14/16 06:00 08:50 08:52 Temperature Pulse Rate 110 H Pulse Rate [ 91 H Anterior Bilateral Throughout] Pulse Rate [ Left Radial] Respiratory Rate Respiratory 16 Rate [Anterior Bilateral Throughout] Blood Pressure [Left Radial Artery] O2 Sat by Pulse 96 Oximetry 11/14/16 09:05 Temperature 97.7 F Pulse Rate Pulse Rate [ 96 H Anterior Bilateral Throughout] Pulse Rate [ 99 H Left Radial] Respiratory 18 Rate Respiratory 16 Rate [Anterior Bilateral Throughout] Blood Pressure 156/72 [Left Radial Artery] O2 Sat by Pulse 100 Oximetry CBC and BMP: 11/14/16 05:17 11/14/16 05:17 Abnormal lab findings: Abnormal Labs 11/13/16 11/14/16 11/14/16 22:52 05:17 05:17 WBC 3.7 L RBC 3.16 L Hgb 9.6 L RDW 17.4 H Glucose 416 H POC Glucose 368 H
[2016-11-14] MEDS ORDERED: DELTASONE PO SCH ×2 (13:00→18:00)
--- NOTE | 2016-11-14 15:00 | Progress Note ---
Assessment and Plan Assessment and plan: 61-year-old -[place] female with past medical history significant for COPD, hypertension, diabetes, CHF, schizophrenia, seizure, HIV presented to the emergency department complaining of shortness of breath, cough which is productive of white sputum, subjective fever. She also complains pleuritic chest pain was just worsened with cough and shortness of breath. Patient is also complaining of abdominal pain. Patient has had multiple admissions in the hospital since June last year for the same complaints. Unfortunately she has not been compliant following up with her doctors. I am not sure how compliant she has been with her medication. She's had multiple studies are unremarkable. She does come in desaturated which improves with medications. * COPD exacerbation * Acute on chronic respiratory failure with hypoxia * Diastolic CHF * HIV/AIDS * Leukopenia * Schizophrenia * Diabetes mellitus type 2 * Hypokalemia plan * Patient continues to improve, will switch to PO meds * Awaiting stool for occult blood hemoglobin is stable * Extensive discussion with the patient about follow-up fortunately she remains a high risk of readmission due to her mental illness. Lack of follow-up. * Continue antiretrovirals * Wean oxygen as tolerated * Anticipate discharge in a.m. * DVT and GI prophylaxis History Interval history: Patient seen and examined this morning in no acute distress, but reports foul smelling stool, reports abdominal pain Denies any chest pain, nausea, vomiting, diarrhea No fever noted blood pressure elevated No adverse events reported to me by nursing staff Hospitalist Physical - Physical exam Narrative exam: VITAL SIGNS: Reviewed. GENERAL: The patient appeared well nourished and normally developed, obese. Vital signs as documented. HEAD: No signs of head trauma. EYES: Pupils are equal. Extraocular motions intact. EARS: Hearing grossly intact. MOUTH: Oropharynx is normal. NECK: No adenopathy, no JVD. CHEST: Chest with wheezing bilaterally. CARDIAC: Regular rate and rhythm. S1 and S2, without murmurs, gallops, or rubs. VASCULAR: No Edema. Peripheral pulses normal and equal in all extremities. ABDOMEN: Soft, without detectable tenderness. No sign of distention. No rebound or guarding, and no masses palpated. Bowel Sounds normal. MUSCULOSKELETAL: Good range of motion of all major joints. Extremities without clubbing, cyanosis or edema. NEUROLOGIC EXAM: Alert and oriented x 3. No focal sensory or strength deficits. Speech normal. Follows commands. PSYCHIATRIC: Mood normal. SKIN: No rash or lesions. - Constitutional Vitals: Temp Pulse Resp BP Pulse Ox 97.6 F 95 H 16 184/85 98 11/14/16 13:16 11/14/16 13:18 11/14/16 13:18 11/14/16 13:16 11/14/16 13:16 Results - Labs CBC & Chem 7: 11/14/16 05:17 11/14/16 05:17 Labs: Laboratory Last Values WBC 3.7 K/mm3 (4.5-11.0) L 11/14/16 05:17 RBC 3.16 M/mm3 (3.65-5.03) L 11/14/16 05:17 Hgb 9.6 gm/dl (10.1-14.3) L 11/14/16 05:17 Hct 30.3 % (30.3-42.9) 11/14/16 05:17 MCV 96 fl (79-97) 11/14/16 05:17 MCH 31 pg (28-32) 11/14/16 05:17 MCHC 32 % (30-34) 11/14/16 05:17 RDW 17.4 % (13.2-15.2) H 11/14/16 05:17 Plt Count 216 K/mm3 (140-440) 11/14/16 05:17 Lymph % (Auto) 37.6 % (13.4-35.0) H 11/12/16 10:55 [place] % (Auto) 13.2 % (0.0-7.3) H 11/12/16 10:55 Eos % (Auto) 2.1 % (0.0-4.3) 11/12/16 10:55 Baso % (Auto) 0.8 % (0.0-1.8) 11/12/16 10:55 Lymph # 1.0 K/mm3 (1.2-5.4) L 11/12/16 10:55 [place] # 0.3 K/mm3 (0.0-0.8) 11/12/16 10:55 Eos # 0.1 K/mm3 (0.0-0.4) 11/12/16 10:55 Baso # 0.0 K/mm3 (0.0-0.1) 11/12/16 10:55 Seg Neutrophils % 46.3 % (40.0-70.0) 11/12/16 10:55 Seg Neutrophils # 1.2 K/mm3 (1.8-7.7) L 11/12/16 10:55 Sodium 141 mmol/L (137-145) 11/14/16 05:17 Potassium 3.9 mmol/L (3.6-5.0) 11/14/16 05:17 Chloride 103.4 mmol/L (98-107) 11/14/16 05:17 Carbon Dioxide 23 mmol/L (22-30) 11/14/16 05:17 Anion Gap 19 mmol/L 11/14/16 05:17 BUN 9 mg/dL (7-17) 11/14/16 05:17 Creatinine 0.8 mg/dL (0.7-1.2) 11/14/16 05:17 Estimated GFR > 60 ml/min 11/14/16 05:17 BUN/Creatinine Ratio 11.25 % 11/14/16 05:17 Glucose 416 mg/dL (65-100) H 11/14/16 05:17 POC Glucose 368 (70-105) H 11/13/16 22:52 Calcium 8.9 mg/dL (8.4-10.2) 11/14/16 05:17 Total Bilirubin 0.3 mg/dL (0.1-1.2) 11/12/16 21:33 Direct Bilirubin < 0.2 mg/dL (0-0.2) 11/12/16 21:33 Indirect Bilirubin 0.1 mg/dL 11/12/16 21:33 AST 31 units/L (5-40) 11/12/16 21:33 ALT 28 units/L (7-56) 11/12/16 21:33 Alkaline Phosphatase 75 units/L (35-129) 11/12/16 21:33 Troponin T < 0.010 ng/mL (0.00-0.029) 11/12/16 21:33 NT-Pro-B Natriuret Pep 104.0 pg/mL (0-900) 11/12/16 21:33 Total Protein 6.0 g/dL (6.3-8.2) L 11/12/16 21:33 Albumin 3.5 g/dL (3.9-5) L 11/12/16 21:33 Albumin/Globulin Ratio 1.4 % 11/12/16 21:33 Urine Color Yellow (Yellow) 11/12/16 Unknown Urine Turbidity Cloudy (Clear) 11/12/16 Unknown Urine pH 5.0 (5.0-7.0) 11/12/16 Unknown Ur Specific [place] 1.027 (1.003-1.030) 11/12/16 Unknown Urine Protein 30 mg/dl mg/dL (Negative) 11/12/16 Unknown Urine Glucose (UA) 50 mg/dL (Negative) 11/12/16 Unknown Urine Ketones Tr mg/dL (Negative) 11/12/16 Unknown Urine Blood Neg (Negative) 11/12/16 Unknown Urine Nitrite Neg (Negative) 11/12/16 Unknown Urine Bilirubin Neg (Negative) 11/12/16 Unknown Urine Urobilinogen 2.0 mg/dL (<2.0) 11/12/16 Unknown Ur Leukocyte Esterase Tr (Negative) 11/12/16 Unknown Urine WBC (Auto) 23.0 /HPF (0.0-6.0) H 11/12/16 Unknown Urine RBC (Auto) 34.0 /HPF (0.0-6.0) 11/12/16 Unknown U Epithel Cells (Auto) 8.0 /HPF (0-13.0) 11/12/16 Unknown Amorphous Crystals 1+ 11/12/16 Unknown Urine Mucus 3+ /HPF 11/12/16 Unknown - Imaging and Cardiology Chest x-ray: image reviewed (no acute pathology)
[2016-11-14] MEDS: NORCO 5/325 PO PRN (18:12)
--- NOTE | 2016-11-14 21:28 | Consultation ---
CONSULTING PHYSICIAN: Renato Randhawa MD REASON FOR CONSULTATION: COPD exacerbation. CHIEF COMPLAINT AND HISTORY OF PRESENT ILLNESS: The patient is a pleasant 61-year-old female with past medical history indeed significant amongst other things for a diagnosis of COPD, but also complicated by a diagnosis of schizophrenia and bipolar disorder, who came into the Emergency Room complaining of a 3-day history of increasing shortness of breath, increasing dyspnea on exertion. She had a dry cough. She denied any real chest pain. She denied nausea or vomiting. She did complain of diarrhea and dysuria. She was evaluated in the Emergency Room and admitted with the above diagnosis. I should mention that she is also HIV positive. When I stopped by to see her, she was sitting in bed, had some supplemental oxygen on, told me she was feeling perhaps a little bit better, but was complaining mostly of abdominal symptoms than she was of respiratory symptoms. She denied any gross or streaky hemoptysis. Now with regards to her tobacco use/abuse, she describes herself as a never smoker today; however, she has in the past told me she has smoked cigarettes in the past. I could never quantify how much. That really is as much of the history of presentation as I have. PAST MEDICAL HISTORY: Hypertension, congestive heart failure, diabetes, seizure disorder, bipolar disorder, schizophrenia, COPD, HIV positive, last CD4 count was 344 in 07/2016, also a history of C. diff colitis. PAST SURGICAL HISTORY: She has had a hysterectomy. She has had a right arm skin graft. MEDICATIONS: She was on at the time I stopped by to see her, according to the medication administration record included the following: [place] 5/325 mg 1 tablet p.o. q.6 hours p.r.n. moderate pain, DuoNeb treatments nebulized q.4 hours scheduled, Brovana 15 mcg inhaled q.12 hours, Emtriva 200 mg p.o. daily, p.r.n. Benadryl, Lovenox 40 mg subcutaneous daily, Lasix 20 mg p.o. daily, insulin via sliding scale as well as detemir insulin 24 units subcutaneous at bedtime and 12 units subcutaneous q.a.m., Levaquin 750 mg p.o. daily, Macrobid 100 mg p.o. q.12 hours, Dilantin 300 mg p.o. at bedtime, prednisone 40 mg p.o. daily, Seroquel 50 mg p.o. b.i.d., raltegravir (Isentress) 400 mg p.o. b.i.d. and tenofovir 300 mg p.o. daily. ALLERGIES: IBUPROFEN, SHRIMP, TETRACYCLINE, NATURE OF THIS ALLERGY IS UNKNOWN. DIET: She is obese, no significant weight loss or gain since I have last seen her. FAMILY AND SOCIAL HISTORY: She lives I believe in the community. She denies today current alcohol, tobacco, or illicit drug use or abuse. Family history, otherwise noncontributory. REVIEW OF SYSTEMS: No loss of consciousness. No new onset seizures. No new onset focal weakness. No gross hematochezia or melena. She did have diarrhea. No gross hematuria. She complains of dysuria, no hematemesis, no hemoptysis. No palpitations. Complete review of systems is obtained, pertinent positives and/or negatives as in body of the history above, otherwise they are noncontributory. PHYSICAL EXAMINATION: VITAL SIGNS: At presentation in the emergency room, she was afebrile, temperature 98.3, pulse was 99, respiratory rate was 23, blood pressure 164/120 and oxygen saturations were 98%, inspired oxygen concentration was not recorded. HEENT, EYES, EARS, NOSE AND THROAT: Pupils are equal, round, reactive to light. Extraocular muscle movements are intact. Grossly, no palpable lymph nodes in the supraclavicular or submandibular lymph node chains. LUNGS: Auscultation of both lung murcia is significant for prolonged bilateral expiratory phase, diminished breath sounds, actually no active wheezing at the time of my evaluation. ABDOMEN: Soft. Bowel sounds are positive. Did not appear tender. EXTREMITIES: Without overt digital clubbing, cyanosis, or pedal edema. NEUROLOGIC: The exam was grossly nonfocal. LABORATORY DATA: From my review are as follows: Admission white cell count 2600, hemoglobin 10.4, hematocrit 33.4 and platelet count 192. Serum sodium was 142, potassium 3.3, chloride 105, bicarbonate 21, BUN was 8, creatinine was 0.6 and glucose was 128. Cardiac enzymes are within normal limits. Albumin is slightly low at 3.5. Urinalysis was done. It was negative for nitrites. It showed trace leukocyte esterase with 23 white cells per high-power field. Chest x-ray was done. I am attempting to pull up the image. I have seen the radiologist's interpretation and I will go ahead and review it myself. He mentions no acute cardiopulmonary process. ASSESSMENT AND PLAN: We have a middle-aged lady in with an acute chronic obstructive pulmonary disease exacerbation, some abdominal discomfort, urinary tract infection and really a little difficult as to how much of her symptoms respiratory-blackman are related to actually real or how many are maybe imagined. At this point, she states that her breathing is actually good. It is the way she describes it for me. I do feel we should treat her as a COPD exacerbation; however, I will begin deescalating therapy pretty significantly and pretty soon. We will change her bronchodilators short acting to q.6 hours p.r.n. We will continue the Brovana. I will add Pulmicort Respules, but also reduce the prednisone to 20 mg p.o. daily. We will continue empiric antibiotic therapy, but 3-5 days of therapy should be appropriate while following for cultures of the urine, if that is sent for culture. She is appropriately on DVT prophylaxis. She will be placed on GI prophylaxis. Oxygen will be weaned to keep saturations greater than or equal to about 92-94%. Aspiration precautions will be maintained. Flu and pneumonia vaccination will be per protocol. Thank you very much for the consult, Dr. Randhawa. We will follow along. We will make further recommendations as the picture progresses/becomes clearer. JOB# [id number] ABDOULAYE/WENDY
[2016-11-14] MEDS: DILANTIN PO SCH (22:29)
[2016-11-14] MEDS: NOVOLOG SUB-Q SCH ×2 (22:30)
[2016-11-14] MEDS: LEVEMIR SUB-Q SCH (22:31)
[2016-11-15] MEDS: DUONEB 0.5 MG-3 MG/3 ML SOLN IH SCH ×5 (00:49→16:01)
[2016-11-15] MEDS: BENADRYL PO PRN (02:43)
[2016-11-15] MEDS: NORCO 5/325 PO PRN (02:43)
[2016-11-15] MEDS: BROVANA NEBU IH SCH (07:56)
[2016-11-15] MEDS: NOVOLOG SUB-Q SCH ×2 (08:00→12:40)
[2016-11-15] MEDS ORDERED: CEPHULAC PO PRN (08:28)
[2016-11-15] MEDS ORDERED: ZOFRAN PO PRN (08:30)
[2016-11-15 09:05] LABS: Hematocrit 29.8 % (30.3-42.9); Hemoglobin 9.6 gm/dl (10.1-14.3)
[2016-11-15] MEDS ORDERED: LEVEMIR SUB-Q SCH (10:00)
[2016-11-15] MEDS ORDERED: LEVAQUIN PO SCH (10:00)
--- NOTE | 2016-11-15 10:25 | XRay Report ---
KUB: 11/15/16 08:28:00 CLINICAL: Constipation. FINDINGS: Large body habitus and a large volume of stool throughout the colon. No distended bowel and no air-fluid levels. No pneumoperitoneum. IVC filter. No tubes or lines. No mass or suspicious calcifications. The bones and soft tissues are normal. IMPRESSION: Negative abdomen with abundant stool.
[2016-11-15] MEDS: MACROBID PO SCH (10:43)
[2016-11-15] MEDS: LASIX PO SCH (10:43)
[2016-11-15] MEDS: ISENTRESS PO SCH (10:44)
[2016-11-15] MEDS: VIREAD PO SCH (10:44)
[2016-11-15] MEDS: LOVENOX SUB-Q SCH (10:44)
[2016-11-15] MEDS: EMTRIVA PO SCH (10:44)
--- NOTE | 2016-11-15 10:47 | Discharge Summary ---
Providers - Providers Date of Admission: 11/13/16 01:19 Date of discharge: 11/15/16 Attending physician: MILLY HOGAN MD 11/13/16 08:34 Consult to Physician [CONS] Routine Consulting Provider: SANG BULL Reason For Exam: copd exacerbation Place consult to:: Dr Cotter Notified:: a service Phone number called:: [phone] Was contact made?: Yes If yes, spoke with:: joceline Time called:: 08:46 Primary care physician: [employer] Hospitalization Reason for admission: shortness of breath, abdominal pain Condition: Stable Hospital course: 61-year-old -[place] female with past medical history significant for COPD, hypertension, diabetes, CHF, schizophrenia, seizure, HIV presented to the emergency department complaining of shortness of breath, cough which is productive of white sputum, subjective fever. She also complains pleuritic chest pain was just worsened with cough and shortness of breath. Patient is also complaining of abdominal pain. Patient has had multiple admissions in the hospital since June last year for the same complaints. Unfortunately she has not been compliant following up with her doctors. I am not sure how compliant she has been with her medication. She's had multiple studies are unremarkable. She does come in desaturated which improves with medications. patient improved during hospitalization. Discussed with Pulmonary and she has not been following up with them. she complained of abdominal pain, similar to past pain and has had thorough evaluation by GI, and is supposed to follow with them outpatient as there is no indication for acute colonoscopy. I have explained this again to her. She reported foul-smelling stool but no diarrhea. Occult blood was done and was negative. She does have persistent wheezing which appears to be coming from the upper airway and could have some psychiatric component to it. No wheezing but this has to be done in the outpatient facility. I have recommended home health for her we did ambulate her as she was satting 98% on room air multiple of 5 for home oxygen at this time. Discharge diagnosis * COPD exacerbation * Acute on chronic respiratory failure with hypoxia * Diastolic CHF * HIV/AIDS * Leukopenia * Schizophrenia * Diabetes mellitus type 2 * Hypokalemia Disposition: DC/TX HOME UNDER HOME HEALTH Time spent for discharge: 35 mins Core Measure Documentation - Palliative Care Palliative Care/ Comfort Measures: Not Applicable - Core Measures Any of the following diagnoses?: heart failure - VTE Discharge Requirements Deep Vein Thrombosis/Pulmonary Embolism Present on Admission: No - Heart Failure Discharge Requirements BERTO/ARB for LVSD if EF <40%: Not Applicable Beta shivam at discharge: No Reason for no beta shivam on DC: COPD Exam - Physical Exam Narrative exam: VITAL SIGNS: Reviewed. GENERAL: The patient appeared well nourished and normally developed, obese. Vital signs as documented. HEAD: No signs of head trauma. EYES: Pupils are equal. Extraocular motions intact. EARS: Hearing grossly intact. MOUTH: Oropharynx is normal. NECK: No adenopathy, no JVD. CHEST: Chest with minimal expiratory wheeze otherwise clear.. CARDIAC: Regular rate and rhythm. S1 and S2, without murmurs, gallops, or rubs. VASCULAR: No Edema. Peripheral pulses normal and equal in all extremities. ABDOMEN: Soft, without detectable tenderness. No sign of distention. No rebound or guarding, and no masses palpated. Bowel Sounds normal. MUSCULOSKELETAL: Good range of motion of all major joints. Extremities without clubbing, cyanosis or edema. NEUROLOGIC EXAM: Alert and oriented x 3. No focal sensory or strength deficits. Speech normal. Follows commands. PSYCHIATRIC: Mood normal. SKIN: No rash or lesions. - Constitutional Vitals: Temp Pulse Resp BP Pulse Ox 97.3 F L 89 20 111/65 100 11/15/16 06:25 11/15/16 08:08 11/15/16 08:08 11/15/16 06:25 11/15/16 07:53 Plan Activity: advance as tolerated, fall precautions Diet: diabetic Special Instructions: home oxygen via (nc 2lpm ), home health RN Additional Instructions: Must follow with primary doctor, and Interlacer also with Access Tech Follow up with: PRIMARY CARE, [Primary Care Provider] - 3-5 Days SANG BULL MD [Staff Physician] - 7 Days FABI BETTS MD [Staff Physician] - 7 Days Prescriptions: Phenytoin (25 mg/ml) [Dilantin] 300 mg PO QHS #30 oral.liqd Arformoterol Nebu [Brovana Nebu] 15 mcg IH Q12HRT #60 ml Bacillus Coagulans [Probiotic] 1 each PO DAILY #30 capsule. Ciprofloxacin HCl [Ciprofloxacin TAB] 500 mg PO Q12H #10 tab Ipratropium [Atrovent NEB] 0.5 mg IH Q8HRT #1 box metroNIDAZOLE [Flagyl CAP] 375 mg PO Q8H #15 capsule oxyCODONE /ACETAMINOPHEN [Percocet 5/325 mg] 1 tab PO Q6H PRN #10 tablet PRN Reason: Pain , Severe (7-10) predniSONE [Deltasone] 10 mg PO .TAPER #48 tab Ipratropium/Albuterol Sulfate [Duoneb 0.5 mg-3 mg/3 ml Soln] 1 ampul IH TIDRT # 90 ampul.neb
--- NOTE | 2016-11-15 13:06 | Progress Note ---
Subjective Date of service: 11/15/16 Principal diagnosis: Acute COPD exacerbation Interval history: Seen and examined at bedside; 24 hour events reviewed; nursing and respiratory care staff consulted; no adverse overnight events reported to me; Objective Vital Signs - 12hr 11/15/16 11/15/16 11/15/16 01:18 04:10 04:21 Temperature 97.9 F Pulse Rate Pulse Rate [ 95 H 97 H Anterior Bilateral Throughout] Pulse Rate [ 107 H Right Radial] Respiratory 20 Rate Respiratory 24 23 Rate [Anterior Bilateral Throughout] Blood Pressure 106/54 [Left Radial Artery] O2 Sat by Pulse 98 Oximetry 11/15/16 11/15/16 11/15/16 06:00 06:25 07:53 Temperature 97.3 F L Pulse Rate 118 H Pulse Rate [ 95 H Anterior Bilateral Throughout] Pulse Rate [ 107 H Right Radial] Respiratory 20 Rate Respiratory 20 Rate [Anterior Bilateral Throughout] Blood Pressure 111/65 [Left Radial Artery] O2 Sat by Pulse 96 100 Oximetry 11/15/16 11/15/16 08:00 08:08 Temperature 97.9 F Pulse Rate Pulse Rate [ 89 Anterior Bilateral Throughout] Pulse Rate [ 90 Right Radial] Respiratory 18 Rate Respiratory 20 Rate [Anterior Bilateral Throughout] Blood Pressure 142/89 [Left Radial Artery] O2 Sat by Pulse 99 Oximetry CBC and BMP: 11/15/16 08:48 11/14/16 05:17 Abnormal lab findings: Abnormal Labs 11/13/16 11/14/16 11/14/16 22:52 05:17 05:17 WBC 3.7 L RBC 3.16 L Hgb 9.6 L Hct RDW 17.4 H Glucose 416 H POC Glucose 368 H 11/14/16 11/14/16 11/14/16 07:55 11:45 17:11 WBC RBC Hgb Hct RDW Glucose POC Glucose 371 H 402 H 306 H 11/14/16 11/15/16 11/15/16 22:02 08:48 12:05 WBC RBC Hgb 9.6 L Hct 29.8 L RDW Glucose POC Glucose 259 H 131 H
[2016-11-15 17:31] VITALS: BP 127/82
== END 2016-11-15 14:45 | disposition home health service (06) | DRG 189 ==
LOC: ED 09:29 → 4A 11-13 01:19
PROVIDERS: ADMIT Internal Medicine; ATTEND Internal Medicine
DX: J96.21 Acute and chronic respiratory failure with hypoxia (principal); B20 Human immunodeficiency virus [HIV] disease; J44.1 Chronic obstructive pulmonary disease with (acute) exacerbation; N39.0 Urinary tract infection, site not specified; I50.30 Unspecified diastolic (congestive) heart failure; R56.9 Unspecified convulsions; E87.6 Hypokalemia; J45.909 Unspecified asthma, uncomplicated; E11.9 Type 2 diabetes mellitus without complications; F31.9 Bipolar disorder, unspecified; F20.9 Schizophrenia, unspecified; I11.0 Hypertensive heart disease with heart failure; Z90.710 Acquired absence of both cervix and uterus; Z88.6 Allergy status to analgesic agent; Z88.1 Allergy status to other antibiotic agents; Z91.018 Allergy to other foods; Z79.4 Long term (current) use of insulin
CPT/HCPCS: 36415; 71020; 74000; 80048; 80074; 81001; 82270; 82962; 83880; 84484; 85014; 85018; 85025; 85027; 87086; 93005; 93010; 94640; 94760; 96365; 96372; 96375; J1650; J1815; J1818; J1956; J2270; J2405; J2920; J2930; J3475; J7512; Q0162

== ENCOUNTER 2016-11-29 12:38 | Inpatient (IN) | payer MEDICARE ==
--- NOTE | 2016-11-29 13:30 | XRay Report ---
ROUTINE CHEST, TWO VIEWS: HISTORY: Shortness of breath. The trachea, heart, mediastinal contour, lung murcia and bony thorax are unremarkable. IMPRESSION: Unremarkable chest x-ray.
[2016-11-29] MEDS ORDERED: PERCOCET 5/325 PO ONE (13:35)
[2016-11-29] MEDS ORDERED: ATROVENT IH ONE (13:35)
[2016-11-29] MEDS ORDERED: PROVENTIL IH ONE (13:35)
[2016-11-29] MEDS ORDERED: DELTASONE PO ONE (13:35)
[2016-11-29 14:02] LABS: Basophils % (Auto) 0.8 % (0.0-1.8); Eosinophils % (Auto) 1.1 % (0.0-4.3); Hematocrit 36.8 % (30.3-42.9); Hemoglobin 11.8 gm/dl (10.1-14.3); Mean Corpuscular HGB Conc 32 % (30-34); Mean Corpuscular Hemoglobin 30 pg (28-32); Mean Corpuscular Volume 94 fl (79-97); Platelet Count 217 K/mm3 (140-440); Red Blood Count 3.93 M/mm3 (3.65-5.03); Red Cell Distribution Width 17.8 % (13.2-15.2); White Blood Count 6.1 K/mm3 (4.5-11.0)
[2016-11-29 14:30] LABS: Anion Gap 19 mmol/L; BUN/Creatinine Ratio 12.22; Blood Urea Nitrogen 11 mg/dL (7-17); Carbon Dioxide 23 mmol/L (22-30); Chloride 102.8 mmol/L (98-107); Creatine Kinase MB 1.4 ng/mL (0.0-4.0); Glucose 168 mg/dL (65-100); Potassium 4.8 mmol/L (3.6-5.0); Sodium 140 mmol/L (137-145)
[2016-11-29 14:33] LABS: Alanine Aminotransferase 17 units/L (7-56); Albumin/Globulin Ratio 1.4 %; Alkaline Phosphatase 97 units/L (35-129); Bilirubin,Total 0.3 mg/dL (0.1-1.2); Lipase 31 units/L (13-60); Total Protein 6.8 g/dL (6.3-8.2)
[2016-11-29 14:34] LABS: Bilirubin,Direct < 0.2 mg/dL (0-0.2); Bilirubin,Indirect 0.1 mg/dL
--- NOTE | 2016-11-29 16:21 | Emergency Department Report ---
ED Shortness of Breath HPI - General Chief Complaint: Dyspnea/Respdistress Stated Complaint: SHORTNESS OF BREATH Time Seen by Provider: 11/29/16 13:05 Source: patient, EMS Mode of arrival: Stretcher Limitations: No Limitations - History of Present Illness Initial Comments: 61-year-old female with a past medical history of CHF, COPD, diabetes, HIV, hypertension, asthma, schizophrenia, and bipolar presents to the hospital complains of shortness of breath 3 days. Positive cough productive of white sputum. Positive wheezing was social and chest tightness worse with exertion. Patient has lower back pain that is chronic and progressive worsening a sensitive intensity and worsened movement.(Dysuria. Patient also complains of abdominal pain and malodorous diarrhea. She has had similar presentations in the past with repeated studies and recommended outpatient GI follow-up and evaluation. No reports of nausea, vomiting, melena, hematochezia, or fever. - Related Data Home Medications Medication Instructions Recorded Confirmed Last Taken NovoLOG Flexpen 9 units SC DAILY 09/09/16 11/29/16 Unknown Previous Rx's Medication Instructions Recorded Last Taken Type Compressor, For Nebulizer [Ebase 1 each MC DAILY #1 each 09/25/16 Unknown Rx Controller] Furosemide [Lasix TAB] 20 mg PO DAILY #30 tablet 10/21/16 Unknown Rx HYDROcodone/APAP 5-325 [[place] 1 each PO Q6H PRN #20 tablet 10/21/16 Unknown Rx 5-325 mg TAB] Insulin Glargine [Lantus VIAL] 24 units SC HS #30 units 10/21/16 Unknown Rx QUEtiapine [SEROquel] 50 mg PO BID #60 tablet 10/21/16 Unknown Rx Arformoterol Nebu [Brovana Nebu] 15 mcg IH Q12HRT #60 ml 11/15/16 Unknown Rx Bacillus Coagulans [Probiotic] 1 each PO DAILY #30 capsule. 11/15/16 Unknown Rx Ipratropium [Atrovent NEB] 0.5 mg IH Q8HRT #1 box 11/15/16 Unknown Rx Ipratropium/Albuterol Sulfate 1 ampul IH TIDRT #90 ampul.neb 11/15/16 Unknown Rx [Duoneb 0.5 mg-3 mg/3 ml Soln] Phenytoin (25 mg/ml) [Dilantin] 300 mg PO QHS #30 oral.liqd 11/15/16 Unknown Rx Allergies Allergy/AdvReac Type Severity Reaction Status Date / Time ibuprofen [From Motrin] Allergy Shortness Verified 10/18/16 11:05 of Breath shrimp Allergy Shortness Verified 10/18/16 11:05 of Breath tetracycline Allergy Shortness Verified 10/18/16 11:05 of Breath ED Review of Systems ROS: Stated complaint: SHORTNESS OF BREATH Other details as noted in HPI Comment: All other systems reviewed and negative Other: Constitutional: No fevers chills Eyes: No eye pain visual changes ENT: No ear pain or throat pain Neck: Denies pain Respiratory:as per hpi Cardiovascular:as per hpi GI: As per HPI : Denies dysuria Musculoskeletal: As per HPI Skin: Denies rash, lesions, erythema Neurologic: Denies headache, numbness, weakness Psychiatric: Denies suicidal ideation, hallucinations ED Past Medical Hx - Past Medical History Hx Hypertension: Yes Hx Congestive Heart Failure: Yes Hx Diabetes: Yes Hx Seizures: Yes Hx Psychiatric Treatment: Yes (bipolar disorder; schziphornia) Hx Asthma: Yes Hx COPD: Yes Hx HIV: Yes (CD4 count 344 2015) Additional medical history: HIV, CDIFF - Surgical History Past Surgical History?: Yes Additional Surgical History: hysterectomy; rt arm skin graph - Social History Smoking Status: Never Smoker Substance Use Type: None - Medications Home Medications: Home Medications Medication Instructions Recorded Confirmed Last Taken Type NovoLOG Flexpen 9 units SC DAILY 09/09/16 11/29/16 Unknown History Compressor, For Nebulizer [Ebase 1 each MC DAILY #1 each 09/25/16 11/29/16 Unknown Rx Controller] Furosemide [Lasix TAB] 20 mg PO DAILY #30 tablet 10/21/16 11/29/16 Unknown Rx HYDROcodone/APAP 5-325 [[place] 1 each PO Q6H PRN #20 tablet 10/21/16 11/29/16 Unknown Rx 5-325 mg TAB] Insulin Glargine [Lantus VIAL] 24 units SC HS #30 units 10/21/16 11/29/16 Unknown Rx QUEtiapine [SEROquel] 50 mg PO BID #60 tablet 10/21/16 11/29/16 Unknown Rx Arformoterol Nebu [Brovana Nebu] 15 mcg IH Q12HRT #60 ml 11/15/16 11/29/16 Unknown Rx Bacillus Coagulans [Probiotic] 1 each PO DAILY #30 capsule. 11/15/16 11/29/16 Unknown Rx Ipratropium [Atrovent NEB] 0.5 mg IH Q8HRT #1 box 11/15/16 11/29/16 Unknown Rx Ipratropium/Albuterol Sulfate 1 ampul IH TIDRT #90 ampul.neb 11/15/16 11/29/16 Unknown Rx [Duoneb 0.5 mg-3 mg/3 ml Soln] Phenytoin (25 mg/ml) [Dilantin] 300 mg PO QHS #30 oral.liqd 11/15/16 11/29/16 Unknown Rx ED Physical Exam - General Limitations: No Limitations - Other Other exam information: General: No limitations, patient is alert in no acute distress Head exam: Atraumatic, normocephalic Eyes exam: Normal appearance, pupils equal reactive to light, extraocular movements intact ENT: Moist mucous membrane, normal oropharynx Neck exam: Normal inspection, full range of motion, no meningismus nontender Respiratory exam: Tachypnea, wheezing, poor air movement Cardiovascular:tach, normal rhythm Abdomen: Soft, nondistended, left upper quadrant tenderness, with normal bowel sounds, no rebound, or guarding Extremity: Full range of motion normal inspection no deformity Back: Normal Inspection, full range of motion, no tenderness Neurologic: Alert, oriented x3, cranial nerves intact, no motor or sensory deficit Psychiatric: normal affect, normal mood Skin: Warm, dry, intact ED Course Vital Signs 11/29/16 11/29/16 11/29/16 12:44 14:09 14:10 Temperature 98.8 F Pulse Rate 95 H Pulse Rate [ 80 Anterior Bilateral Throughout] Respiratory 24 20 Rate Respiratory 14 Rate [Anterior Bilateral Throughout] Blood Pressure 100/63 O2 Sat by Pulse 98 Oximetry 11/29/16 14:50 Temperature Pulse Rate Pulse Rate [ 85 Anterior Bilateral Throughout] Respiratory Rate Respiratory 14 Rate [Anterior Bilateral Throughout] Blood Pressure O2 Sat by Pulse Oximetry ED Medical Decision Making - Lab Data Result diagrams: 11/29/16 13:35 11/29/16 13:35 Lab Results 11/29/16 11/29/16 11/29/16 Range/Units 13:35 13:35 13:35 WBC 6.1 (4.5-11.0) K/mm3 RBC 3.93 (3.65-5.03) M/mm3 Hgb 11.8 (10.1-14.3) gm/dl Hct 36.8 (30.3-42.9) % MCV 94 (79-97) fl MCH 30 (28-32) pg MCHC 32 (30-34) % RDW 17.8 H (13.2-15.2) % Plt Count 217 (140-440) K/mm3 Lymph % (Auto) 22.4 (13.4-35.0) % [place] % (Auto) 5.5 (0.0-7.3) % Eos % (Auto) 1.1 (0.0-4.3) % Baso % (Auto) 0.8 (0.0-1.8) % Lymph # 1.4 (1.2-5.4) K/mm3 [place] # 0.3 (0.0-0.8) K/mm3 Eos # 0.1 (0.0-0.4) K/mm3 Baso # 0.0 (0.0-0.1) K/mm3 Seg Neutrophils % 70.2 H (40.0-70.0) % Seg Neutrophils # 4.2 (1.8-7.7) K/mm3 Sodium 140 (137-145) mmol/L Potassium 4.8 (3.6-5.0) mmol/L Chloride 102.8 (98-107) mmol/L Carbon Dioxide 23 (22-30) mmol/L Anion Gap 19 mmol/L BUN 11 (7-17) mg/dL Creatinine 0.9 (0.7-1.2) mg/dL Estimated GFR > 60 ml/min BUN/Creatinine Ratio 12.22 % Glucose 168 H (65-100) mg/dL Calcium 9.0 (8.4-10.2) mg/dL Total Bilirubin (0.1-1.2) mg/dL Direct Bilirubin (0-0.2) mg/dL Indirect Bilirubin mg/dL AST (5-40) units/L ALT (7-56) units/L Alkaline Phosphatase (35-129) units/L Total Creatine Kinase 121 (30-135) units/L CK-MB (CK-2) 1.4 (0.0-4.0) ng/mL CK-MB (CK-2) Rel Index 1.1 (0-4) Troponin T < 0.010 (0.00-0.029) ng/mL NT-Pro-B Natriuret Pep 95.12 (0-900) pg/mL Total Protein (6.3-8.2) g/dL Albumin (3.9-5) g/dL Albumin/Globulin Ratio % Lipase (13-60) units/L 11/29/16 Range/Units 13:50 WBC (4.5-11.0) K/mm3 RBC (3.65-5.03) M/mm3 Hgb (10.1-14.3) gm/dl Hct (30.3-42.9) % MCV (79-97) fl MCH (28-32) pg MCHC (30-34) % RDW (13.2-15.2) % Plt Count (140-440) K/mm3 Lymph % (Auto) (13.4-35.0) % [place] % (Auto) (0.0-7.3) % Eos % (Auto) (0.0-4.3) % Baso % (Auto) (0.0-1.8) % Lymph # (1.2-5.4) K/mm3 [place] # (0.0-0.8) K/mm3 Eos # (0.0-0.4) K/mm3 Baso # (0.0-0.1) K/mm3 Seg Neutrophils % (40.0-70.0) % Seg Neutrophils # (1.8-7.7) K/mm3 Sodium (137-145) mmol/L Potassium (3.6-5.0) mmol/L Chloride (98-107) mmol/L Carbon Dioxide (22-30) mmol/L Anion Gap mmol/L BUN (7-17) mg/dL Creatinine (0.7-1.2) mg/dL Estimated GFR ml/min BUN/Creatinine Ratio % Glucose (65-100) mg/dL Calcium (8.4-10.2) mg/dL Total Bilirubin 0.3 (0.1-1.2) mg/dL Direct Bilirubin < 0.2 (0-0.2) mg/dL Indirect Bilirubin 0.1 mg/dL AST 18 (5-40) units/L ALT 17 (7-56) units/L Alkaline Phosphatase 97 (35-129) units/L Total Creatine Kinase (30-135) units/L CK-MB (CK-2) (0.0-4.0) ng/mL CK-MB (CK-2) Rel Index (0-4) Troponin T (0.00-0.029) ng/mL NT-Pro-B Natriuret Pep (0-900) pg/mL Total Protein 6.8 (6.3-8.2) g/dL Albumin 4.0 (3.9-5) g/dL Albumin/Globulin Ratio 1.4 % Lipase 31 (13-60) units/L - EKG Data -: EKG Interpreted by Me ([id number] [id number]) - Radiology Data Radiology results: image reviewed (cxr: naf) - Medical Decision Making Patient still has significant wheezing despite treatment in the ED. No IV access at disposition because patient is a very difficult state and does not have any peripheral access. Central line is not necessary at this time. Patient is well-known to this Hospital and has poor peripheral access chronically. This was discussed with Dr. Joshi Patient be admitted and US guided access can be explored in the am - Differential Diagnosis pneumonia, bronchitis, CHF, asthma Critical Care Time: No Critical care attestation.: If time is entered above; I have spent that time in minutes in the direct care of this critically ill patient, excluding procedure time. ED Disposition Clinical Impression: Acute exacerbation of chronic obstructive pulmonary disease (COPD), Abdominal pain, History of HIV or AIDS, CHF (congestive heart failure) Disposition: OP ADMITTED IP TO THIS HOSP Is pt being admited?: Yes Condition: Stable Time of Disposition: 16:24 (Dr Joshi)
[2016-11-29] MEDS ORDERED: ZOFRAN ODT ONE (17:44)
[2016-11-29] MEDS ORDERED: ZOFRAN ODT PO ONE (17:46)
[2016-11-29] MEDS ORDERED: MILK OF MAGNESIA PO PRN (20:25)
[2016-11-29] MEDS ORDERED: DULCOLAX PR PRN (20:25)
[2016-11-29] MEDS ORDERED: DUONEB 0.5 MG-3 MG/3 ML SOLN IH PRN (20:28)
[2016-11-29] MEDS ORDERED: INSULIN ASPART SC SCH (20:30)
[2016-11-29] MEDS ORDERED: BACILLUS COAGULANS PO SCH (20:30)
[2016-11-29] MEDS ORDERED: PROVENTIL IH PRN (20:42)
[2016-11-29] MEDS: DUONEB 0.5 MG-3 MG/3 ML SOLN IH SCH (20:43)
[2016-11-29] MEDS: BROVANA NEBU IH SCH (20:43)
--- NOTE | 2016-11-29 20:53 | History and Physical Report ---
History of Present Illness Date of examination: 11/29/16 Date of admission: 11/29/2016 Chief complaint: Chief complaint: Increasing shortness of breath for last 3 days. History of present illness: This is a 61-year-old female with h/o COPD insulin-dependent diabetes seizure disorder pedal edema presented with increasing shortness of breath and wheezing for the last 3 days. Cough productive of mucoid sputum. No fever no chills. No recent travel. Patient has been admitted for a COPD exacerbation in the past. Noncompliant with medications. No chest pain no palpitations. No nausea no vomiting. No weight gain secondary to fluid retention. Past medical History: h/o COPD insulin-dependent diabetes depression seizure disorder bipolar disorder and schizophrenia HIV. CD4 count 344 in July 2016. Past surgical History: s/p hysterectomy right arm skin graft Social History: Lives with family, denies any smoking, drinking and elicit drug abuse. Family History: Significant for hypertension Review of System: Constitutional: no fever, no chills, no weight loss Ears, eyes, nose, mouth and throat: no nasal congestion, no nasal discharge, no sinus pressure, no vision change, no red eye. Neck: No neck pain or rigidity. Cardiovascular: No chest pain, no orthopnea, no palpitations, no leg swelling Respiratory: shortness of breath, cough, congestion, wheezing present for 3 days Gastrointestinal: no abdominal pain, no nausea, no vomiting Genitourinary : no dysuria, no hematuria Musculoskeletal: no joint swelling or muscle ache Integumentary: no rash, no pruritis Neurological: no paresthesias, no numbness, no tingling Endocrine: no cold or heat intolerance, no polyuria or polydipsia Hematologic/Lymphatic: no easy bruising, no easy bleeding, no gland swelling Allergic/Immunologic: no urticaria, no angioedema. Medications and Allergies Allergies Allergy/AdvReac Type Severity Reaction Status Date / Time ibuprofen [From Motrin] Allergy Shortness Verified 10/18/16 11:05 of Breath shrimp Allergy Shortness Verified 10/18/16 11:05 of Breath tetracycline Allergy Shortness Verified 10/18/16 11:05 of Breath Home Medications Medication Instructions Recorded Confirmed Last Taken Type NovoLOG Flexpen 9 units SC DAILY 09/09/16 11/29/16 Unknown History Compressor, For Nebulizer [Ebase 1 each MC DAILY #1 each 09/25/16 11/29/16 Unknown Rx Controller] Furosemide [Lasix TAB] 20 mg PO DAILY #30 tablet 10/21/16 11/29/16 Unknown Rx HYDROcodone/APAP 5-325 [[place] 1 each PO Q6H PRN #20 tablet 10/21/16 11/29/16 Unknown Rx 5-325 mg TAB] Insulin Glargine [Lantus VIAL] 24 units SC HS #30 units 10/21/16 11/29/16 Unknown Rx QUEtiapine [SEROquel] 50 mg PO BID #60 tablet 10/21/16 11/29/16 Unknown Rx Arformoterol Nebu [Brovana Nebu] 15 mcg IH Q12HRT #60 ml 11/15/16 11/29/16 Unknown Rx Bacillus Coagulans [Probiotic] 1 each PO DAILY #30 capsule. 11/15/16 11/29/16 Unknown Rx Ipratropium [Atrovent NEB] 0.5 mg IH Q8HRT #1 box 11/15/16 11/29/16 Unknown Rx Ipratropium/Albuterol Sulfate 1 ampul IH TIDRT #90 ampul.neb 11/15/16 11/29/16 Unknown Rx [Duoneb 0.5 mg-3 mg/3 ml Soln] Phenytoin (25 mg/ml) [Dilantin] 300 mg PO QHS #30 oral.liqd 11/15/16 11/29/16 Unknown Rx Active Meds: Active Medications Acetaminophen (Tylenol) 650 mg PO Q4H PRN PRN Reason: Pain MILD(1-3)/Fever >100.5/MOYER Acetaminophen/Hydrocodone Bitart ([place] 5/325) 1 each PO Q6H PRN PRN Reason: Pain, Moderate (4-6) Albuterol (Proventil) 2.5 mg IH Q3HRT PRN PRN Reason: Wheezing Albuterol/Ipratropium (Duoneb 0.5 Mg-3 Mg/3 Ml Soln) 1 ampul IH Q6HRT SKYLER Last Admin: 11/29/16 20:43 Dose: 1 ampul Arformoterol Tartrate (Brovana Nebu) 15 mcg IH Q12HRT SKYLER Last Admin: 11/29/16 20:43 Dose: 15 mcg Bisacodyl (Dulcolax) 10 mg HI QDAY PRN PRN Reason: Constipation unrelieved by MOM Enoxaparin Sodium (Lovenox) 40 mg SUB-Q QDAY SKYLER Furosemide (Lasix) 20 mg PO DAILY SKYLER Hydromorphone HCl (Dilaudid) 0.5 mg IV Q3H PRN PRN Reason: Pain , Severe (7-10) Sodium Chloride (Nacl 0.45% 1000 Ml) 1,000 mls @ 42 mls/hr IV DIRECT SKYLER Stop: 11/30/16 20:00 Levofloxacin/Dextrose (Levaquin 750mg/150ml) 750 mg in 150 mls @ 100 mls/hr IV Q24HR SKYLER PRN Reason: Protocol Insulin Aspart (Novolog) 9 units SUB-Q QDDIAB SKYLER Insulin Detemir (Levemir) 24 units SUB-Q QHS SKYLER Lactobacillus Rhamnosus (Culturelle) 1 each PO DAILY SKYLER Magnesium Hydroxide (Milk Of Magnesia) 30 ml PO Q4H PRN PRN Reason: Constipation Methylprednisolone Sodium Succinate (Solu-Medrol) 60 mg IV Q8HR SKYLER Ondansetron HCl (Zofran) 4 mg IV Q8H PRN PRN Reason: N/V unrelieved by Reglan Phenytoin (Dilantin) 300 mg PO QHS SKYLER Quetiapine Fumarate (Seroquel) 50 mg PO BID SKYLER Zolpidem Tartrate (Ambien) 5 mg PO QHS PRN PRN Reason: Insomnia Review of Systems All systems: negative Respiratory: congestion, wheezing Exam - Physical Exam Narrative exam: Well-developed well-nourished female in moderate respiratory distress - Constitutional Vitals: Temp Pulse Resp BP Pulse Ox 98.3 F 87 18 117/78 98 11/29/16 20:25 11/29/16 20:44 11/29/16 20:44 11/29/16 20:40 11/29/16 20:40 General appearance: Present: no acute distress, mild distress, well-nourished - EENT Eyes: Present: PERRL ENT: hearing intact, clear oral mucosa - Neck Neck: Present: supple, normal ROM - Respiratory Respiratory effort: normal Respiratory: bilateral: CTA, rhonchi, wheezing - Cardiovascular Heart rate: 80 Rhythm: regular Heart Sounds: Present: S1 & S2. Absent: rub, click - Extremities Extremities: pulses symmetrical, No edema Peripheral Pulses: within normal limits - Abdominal General gastrointestinal: Present: soft, non-tender, non-distended, normal bowel sounds Female genitourinary: Present: normal - Rectal Rectal Exam: deferred - Integumentary Integumentary: Present: clear, warm, dry - Musculoskeletal Musculoskeletal: gait normal, strength equal bilaterally - Psychiatric Psychiatric: appropriate mood/affect, intact judgment & insight - Neurologic Neurologic: CNII-XII intact, moves all extremities - Allied Health Allied health notes reviewed: nursing, case management Results - Labs CBC & Chem 7: 11/29/16 13:35 11/29/16 13:35 Labs: Laboratory Last Values WBC 6.1 K/mm3 (4.5-11.0) 11/29/16 13:35 RBC 3.93 M/mm3 (3.65-5.03) 11/29/16 13:35 Hgb 11.8 gm/dl (10.1-14.3) 11/29/16 13:35 Hct 36.8 % (30.3-42.9) 11/29/16 13:35 MCV 94 fl (79-97) 11/29/16 13:35 MCH 30 pg (28-32) 11/29/16 13:35 MCHC 32 % (30-34) 11/29/16 13:35 RDW 17.8 % (13.2-15.2) H 11/29/16 13:35 Plt Count 217 K/mm3 (140-440) 11/29/16 13:35 Lymph % (Auto) 22.4 % (13.4-35.0) 11/29/16 13:35 [place] % (Auto) 5.5 % (0.0-7.3) 11/29/16 13:35 Eos % (Auto) 1.1 % (0.0-4.3) 11/29/16 13:35 Baso % (Auto) 0.8 % (0.0-1.8) 11/29/16 13:35 Lymph # 1.4 K/mm3 (1.2-5.4) 11/29/16 13:35 [place] # 0.3 K/mm3 (0.0-0.8) 11/29/16 13:35 Eos # 0.1 K/mm3 (0.0-0.4) 11/29/16 13:35 Baso # 0.0 K/mm3 (0.0-0.1) 11/29/16 13:35 Seg Neutrophils % 70.2 % (40.0-70.0) H 11/29/16 13:35 Seg Neutrophils # 4.2 K/mm3 (1.8-7.7) 11/29/16 13:35 Sodium 140 mmol/L (137-145) 11/29/16 13:35 Potassium 4.8 mmol/L (3.6-5.0) 11/29/16 13:35 Chloride 102.8 mmol/L (98-107) 11/29/16 13:35 Carbon Dioxide 23 mmol/L (22-30) 11/29/16 13:35 Anion Gap 19 mmol/L 11/29/16 13:35 BUN 11 mg/dL (7-17) 11/29/16 13:35 Creatinine 0.9 mg/dL (0.7-1.2) 11/29/16 13:35 Estimated GFR > 60 ml/min 11/29/16 13:35 BUN/Creatinine Ratio 12.22 % 11/29/16 13:35 Glucose 168 mg/dL (65-100) H 11/29/16 13:35 Calcium 9.0 mg/dL (8.4-10.2) 11/29/16 13:35 Total Bilirubin 0.3 mg/dL (0.1-1.2) 11/29/16 13:50 Direct Bilirubin < 0.2 mg/dL (0-0.2) 11/29/16 13:50 Indirect Bilirubin 0.1 mg/dL 11/29/16 13:50 AST 18 units/L (5-40) 11/29/16 13:50 ALT 17 units/L (7-56) 11/29/16 13:50 Alkaline Phosphatase 97 units/L (35-129) 11/29/16 13:50 Total Creatine Kinase 121 units/L (30-135) 11/29/16 13:35 CK-MB (CK-2) 1.4 ng/mL (0.0-4.0) 11/29/16 13:35 CK-MB (CK-2) Rel Index 1.1 (0-4) 11/29/16 13:35 Troponin T < 0.010 ng/mL (0.00-0.029) 11/29/16 13:35 NT-Pro-B Natriuret Pep 95.12 pg/mL (0-900) 11/29/16 13:35 Total Protein 6.8 g/dL (6.3-8.2) 11/29/16 13:50 Albumin 4.0 g/dL (3.9-5) 11/29/16 13:50 Albumin/Globulin Ratio 1.4 % 11/29/16 13:50 Lipase 31 units/L (13-60) 11/29/16 13:50 Short CBC 11/29/16 Range/Units 13:35 WBC 6.1 (4.5-11.0) K/mm3 Hgb 11.8 (10.1-14.3) gm/dl Hct 36.8 (30.3-42.9) % Plt Count 217 (140-440) K/mm3 BMP 11/29/16 13:35 Sodium 140 Potassium 4.8 Chloride 102.8 Carbon Dioxide 23 BUN 11 Creatinine 0.9 Glucose 168 H Calcium 9.0 Cardiac Enzymes 11/29/16 11/29/16 Range/Units 13:35 13:35 Total Creatine Kinase 121 (30-135) units/L CK-MB (CK-2) 1.4 (0.0-4.0) ng/mL Troponin T < 0.010 (0.00-0.029) ng/mL Liver Function 11/29/16 Range/Units 13:50 Total Bilirubin 0.3 (0.1-1.2) mg/dL Direct Bilirubin < 0.2 (0-0.2) mg/dL AST 18 (5-40) units/L ALT 17 (7-56) units/L Alkaline Phosphatase 97 (35-129) units/L Albumin 4.0 (3.9-5) g/dL - Imaging and Cardiology EKG: report reviewed (normal sinus rhythm 85/m interpreted by me) Chest x-ray: report reviewed (no acute findings) Assessment and Plan Assessment and plan: Assessment and plan: #1: COPD exacerbation: Patient started on IV Levaquin 750 every 24 hours IV Solu -Medrol 60 mg every 8 hours and Duonebs every 6 [id number] and every 3 when necessary. Pulmonary consult requested. #2 insulin-dependent diabetes: Continue insulin Lantus and NovoLog and coverage. Check hemoglobin A1c. #3 seizure disorder: Continue phenytoin 300 mg daily at bedtime. Check phenytoin level. #4 bipolar disorder/schizophrenia: Continue Seroquel 50 mg twice a day. #5 CHF/pedal edema: Continue Lasix. #6 HIV status continue antiretrovirals if present on the conciliation sheet #7 DVT prophylaxis Lovenox 40 mg subcutaneous daily. Advance Directives: Yes (full code) VTE prophylaxis?: Chemical Plan of care discussed with patient/family: Yes
[2016-11-29] MEDS ORDERED: NACL 0.45% 1000 ML 1,000 ML IV SCH (21:00)
[2016-11-29] MEDS ORDERED: INSULIN GLARGINE 24 UNIT SC SCH (22:00)
[2016-11-29] MEDS: LEVAQUIN 750MG/150ML 750 MG/150 ML BAG IV SCH (22:00)
[2016-11-29] MEDS: DILANTIN PO SCH (22:54)
[2016-11-30] MEDS ORDERED: ATROVENT IH SCH
--- NOTE | 2016-11-30 01:46 | Admit Criteria Form ---
Admission Criteria Documentation: COPD Clinical Indications for Admission to Inpatient Care (Place 'X' for any and all applicable criteria): Admission is indicated for ANY ONE of the following (1)(2)(3): [ ]I. Acute exacerbation by high-risk comorbidity (e.g., pneumonia, dysrhythmia, heart failure, pleural effusion, pneumothorax) or severe underlying COPD (e.g., steroid dependent) [ X]II. Inpatient admission required rather than observation care (see Chronic Obstructive Pulmonary Disease: Observation Care) because of ANY ONE of the following: [ X]a) New or pre-existing signs or symptoms of COPD (eg, dyspnea or Tachypnea at rest or with minimal activity) that persist despite outpatient and observation care treatment [ ]b) New-onset hypoxemia (room air SaO2 less than 90%, PO2 less than 60 mm Hg (8.0 kPa)) that persists despite outpatient and observation care treatment [ ]c) Worsening of pre-existing hypoxemia (eg, new or increased requirement for supplemental oxygen to maintain oxygenation at baseline level) that persists despite outpatient and observation care treatment, with oxygen treatment needs performable only in acute inpatient setting [ ]d) Hypercarbia (PCO2 greater than 40 mm Hg (5.3 kPa))-induced respiratory acidosis (pH less than 7.35) that persists despite outpatient and observation care treatment [ ]e) Supplemental oxygen or respiratory treatments for over 24 hours that are performable only in acute inpatient setting [ ]f) Chest tube placement with active evacuation (e.g., suction, drainage) (5) [ ]g) Other condition, treatment or monitoring requiring inpatient admission [ ]III. Planned invasive surgical or diagnostic procedures requiring acute- care hospitalization [ ]IV. Acute respiratory failure (e.g., uncompensated hypercarbia, severe hypoxemia) [ ]V. Severe comorbid condition (e.g., severe steroid myopathy, acute vertebral fracture) that has acutely worsened pulmonary function [ ]. Confusion state, lethargy, obtundation, stupor or coma Extended stay beyond goal length of stay may be needed for (31)(32): [ ]a ) Respiratory Failure. [ ]b) Severe or persisting hypoxemia or hypercarbia [ ]c) Severe or persistent dyspnea [ ]d) Comorbidities (e.g. chronic heart failure, atrial fibrillation with rapid response, pneumonia) [ ]e) Malnutrition The original [facility] content created by [facility] has been revised. The portions of the content which have been revised are identified through the use of italic text or in bold, and [facility] has neither reviewed nor approved the modified material. All other unmodified content is copyright [facility]. Please see references footnoted in the original [facility] edition 2016 Admission Criteria Met: Yes
[2016-11-30] MEDS: DUONEB 0.5 MG-3 MG/3 ML SOLN IH SCH ×4 (01:55→19:41)
[2016-11-30] MEDS: CULTURELLE PO SCH ×2 (02:19→09:20)
[2016-11-30] MEDS: LEVEMIR SUB-Q SCH ×2 (02:20→23:40)
[2016-11-30] MEDS: NOVOLOG SUB-Q SCH ×6 (02:20→23:49)
[2016-11-30 06:03] LABS: Albumin 3.5 g/dL (3.9-5); Albumin/Globulin Ratio 1.3 %; Alkaline Phosphatase 79 units/L (35-129); BUN/Creatinine Ratio 18.57; Bilirubin,Total 0.2 mg/dL (0.1-1.2); Blood Urea Nitrogen 13 mg/dL (7-17); Calcium 8.5 mg/dL (8.4-10.2); Carbon Dioxide 21 mmol/L (22-30); Chloride 102.7 mmol/L (98-107); Glucose 197 mg/dL (65-100); Sodium 138 mmol/L (137-145); Total Protein 6.3 g/dL (6.3-8.2)
[2016-11-30 06:50] LABS: Basophils % (Auto) 1.3 % (0.0-1.8); Eosinophils % (Auto) 0.2 % (0.0-4.3); Hematocrit 32.4 % (30.3-42.9); Hemoglobin 10.3 gm/dl (10.1-14.3); Mean Corpuscular HGB Conc 32 % (30-34); Mean Corpuscular Hemoglobin 30 pg (28-32); Mean Corpuscular Volume 94 fl (79-97); Platelet Count 111 K/mm3 (140-440); Red Blood Count 3.43 M/mm3 (3.65-5.03); Red Cell Distribution Width 18.4 % (13.2-15.2); White Blood Count 7.2 K/mm3 (4.5-11.0)
[2016-11-30 07:27] LABS: Alanine Aminotransferase 16 units/L (7-56); Anion Gap 20 mmol/L
[2016-11-30 07:28] LABS: Potassium 5.2 mmol/L (3.6-5.0)
[2016-11-30] MEDS ORDERED: NOVOLOG SUB-Q SCH (07:30)
[2016-11-30] MEDS: BROVANA NEBU IH SCH ×2 (07:46→19:41)
[2016-11-30] MEDS: LOVENOX SUB-Q SCH (09:19)
[2016-11-30] MEDS: LASIX PO SCH (09:20)
[2016-11-30] MEDS: LEVAQUIN 750MG/150ML 750 MG/150 ML BAG IV SCH (09:20)
[2016-11-30] MEDS: NORCO 5/325 PO PRN ×2 (11:51→21:15)
--- NOTE | 2016-11-30 15:30 | Progress Note ---
Assessment and Plan Assessment and plan: This is a 61-year-old female with h/o COPD insulin-dependent diabetes seizure disorder pedal edema presented with increasing shortness of breath and wheezing for the last 3 days. She had similar admission in the past. Acute COPD exacerbation: -Patient started on IV Levaquin 750 every 24 hours IV Solu-Medrol 60 mg every 8 hours and Duonebs every 6 [id number] and every 3 when necessary. - Pulmonary consult requested. Insulin-dependent diabetes: - Continue insulin Lantus and NovoLog and coverage. - hemoglobin A1c. 7.8 Seizure disorder: - Continue phenytoin 300 mg daily at bedtime. - Subtherapeutic phenytoin level. Repeat tomorrow am Bipolar disorder/schizophrenia: - Continue Seroquel 50 mg twice a day. CHF with grade 1 diastolic dysfunction - Continue Lasix. - 2d echo was obtain on 07/2016 h/o HIV - Not on any antiretrovirals at home - out pt follow up when stable DVT prophylaxis - Lovenox 40 mg subcutaneous daily. History Interval history: Pt seen and examined She c/o SOB with minimal exertion and resting States that she does not take any HIV meds at home Hospitalist Physical - Physical exam Narrative exam: General appearance: Present: no acute distress, mild distress, obese - EENT Eyes: Present: PERRL ENT: hearing intact, clear oral mucosa - Neck Neck: Present: supple, normal ROM - Respiratory Respiratory effort: normal Respiratory: bilateral: CTA, rhonchi, wheezing - Cardiovascular Heart rate: 80 Rhythm: regular Heart Sounds: Present: S1 & S2. Absent: rub, click - Extremities Extremities: pulses symmetrical, No edema Peripheral Pulses: within normal limits - Abdominal General gastrointestinal: Present: soft, non-tender, non-distended, normal bowel sounds Female genitourinary: Present: normal - Rectal Rectal Exam: deferred - Integumentary Integumentary: Present: clear, warm, dry - Musculoskeletal Musculoskeletal: gait normal, strength equal bilaterally - Psychiatric Psychiatric: appropriate mood/affect, intact judgment & insight - Neurologic Neurologic: CNII-XII intact, moves all extremities - Constitutional Vitals: Temp Pulse Resp BP Pulse Ox 97.1 F L 98 H 16 105/68 96 11/30/16 07:45 11/30/16 13:39 11/30/16 13:39 11/30/16 07:45 11/30/16 07:48 Results - Labs CBC & Chem 7: 11/30/16 04:30 11/30/16 04:30 Labs: Laboratory Last Values WBC 7.2 K/mm3 (4.5-11.0) 11/30/16 04:30 RBC 3.43 M/mm3 (3.65-5.03) L 11/30/16 04:30 Hgb 10.3 gm/dl (10.1-14.3) 11/30/16 04:30 Hct 32.4 % (30.3-42.9) 11/30/16 04:30 MCV 94 fl (79-97) 11/30/16 04:30 MCH 30 pg (28-32) 11/30/16 04:30 MCHC 32 % (30-34) 11/30/16 04:30 RDW 18.4 % (13.2-15.2) H 11/30/16 04:30 Plt Count 111 K/mm3 (140-440) L 11/30/16 04:30 Lymph % (Auto) 28.0 % (13.4-35.0) 11/30/16 04:30 [place] % (Auto) 8.4 % (0.0-7.3) H 11/30/16 04:30 Eos % (Auto) 0.2 % (0.0-4.3) 11/30/16 04:30 Baso % (Auto) 1.3 % (0.0-1.8) 11/30/16 04:30 Lymph # 2.0 K/mm3 (1.2-5.4) 11/30/16 04:30 [place] # 0.6 K/mm3 (0.0-0.8) 11/30/16 04:30 Eos # 0.0 K/mm3 (0.0-0.4) 11/30/16 04:30 Baso # 0.1 K/mm3 (0.0-0.1) 11/30/16 04:30 Seg Neutrophils % 62.1 % (40.0-70.0) 11/30/16 04:30 Seg Neutrophils # 4.5 K/mm3 (1.8-7.7) 11/30/16 04:30 Sodium 138 mmol/L (137-145) 11/30/16 04:30 Potassium 5.2 mmol/L (3.6-5.0) H 11/30/16 04:30 Chloride 102.8 mmol/L (98-107) 11/29/16 13:35 Carbon Dioxide 21 mmol/L (22-30) L 11/30/16 04:30 Anion Gap 20 mmol/L 11/30/16 04:30 BUN 13 mg/dL (7-17) 11/30/16 04:30 Creatinine 0.7 mg/dL (0.7-1.2) 11/30/16 04:30 Estimated GFR > 60 ml/min 11/30/16 04:30 BUN/Creatinine Ratio 18.57 % 11/30/16 04:30 Glucose 197 mg/dL (65-100) H 11/30/16 04:30 Hemoglobin A1c 7.8 % (4-6) H 11/29/16 13:35 Calcium 8.5 mg/dL (8.4-10.2) 11/30/16 04:30 Total Bilirubin 0.2 mg/dL (0.1-1.2) 11/30/16 04:30 Direct Bilirubin < 0.2 mg/dL (0-0.2) 11/29/16 13:50 Indirect Bilirubin 0.1 mg/dL 11/29/16 13:50 AST 20 units/L (5-40) 11/30/16 04:30 ALT 16 units/L (7-56) 11/30/16 04:30 Alkaline Phosphatase 79 units/L (35-129) 11/30/16 04:30 Total Creatine Kinase 121 units/L (30-135) 11/29/16 13:35 CK-MB (CK-2) 1.4 ng/mL (0.0-4.0) 11/29/16 13:35 CK-MB (CK-2) Rel Index 1.1 (0-4) 11/29/16 13:35 Troponin T < 0.010 ng/mL (0.00-0.029) 11/29/16 13:35 NT-Pro-B Natriuret Pep 95.12 pg/mL (0-900) 11/29/16 13:35 Total Protein 6.3 g/dL (6.3-8.2) 11/30/16 04:30 Albumin 3.5 g/dL (3.9-5) L 11/30/16 04:30 Albumin/Globulin Ratio 1.3 % 11/30/16 04:30 Lipase 31 units/L (13-60) 11/29/16 13:50 Phenytoin 1.4 mg/L (10.0-20.0) L 11/29/16 21:29 - Imaging and Cardiology Chest x-ray: report reviewed
[2016-11-30] MEDS ORDERED: KIONEX PO PRN (15:42)
--- NOTE | 2016-11-30 19:24 | Event Note ---
Date: 11/30/16 Dr. Joshi thank you for asking us to participate in the care of this patient. Full consultation follow. This is 61 year old , Lebanese female, Morbidley Obese has history of asthama admitted with shortness of breath and cough with white sputum and chest tightness.Patient has no history of smoking, alcohol or drug abuse. Patient has history of diabetes, HIv positive, Seizure disorder and schizophrenia.Allergic to Ibuprophen,Shrimp and tetracycline.Not . Children 1.Patient denies symptoms of sleep apnea. IMMPRESSION: 1. Acute exagerbation of Asthma. 2. Acute bronchitis: 3. Diabetes 4. HIV Positive. 5. Seizure disorder 6. Schzophrenia. 7. Morbid Obesity. PLAN: 1. O2 supplementation. 2. Albuterol/atrovent aerosol treatments 3. Continue I/V solumedral 4. Continue Levaquine 5. Continue S/C Lovenox.
[2016-11-30] MEDS: AMBIEN PO PRN (21:15)
[2016-11-30] MEDS: DILANTIN PO SCH (21:15)
[2016-12-01] MEDS: DUONEB 0.5 MG-3 MG/3 ML SOLN IH SCH ×4 (02:08→20:09)
[2016-12-01 05:42] LABS: Basophils % (Auto) 0.2 % (0.0-1.8); Eosinophils % (Auto) 0.1 % (0.0-4.3); Hematocrit 29.3 % (30.3-42.9); Hemoglobin 9.5 gm/dl (10.1-14.3); Mean Corpuscular HGB Conc 32 % (30-34); Mean Corpuscular Hemoglobin 30 pg (28-32); Mean Corpuscular Volume 94 fl (79-97); Platelet Count 198 K/mm3 (140-440); Red Blood Count 3.13 M/mm3 (3.65-5.03); Red Cell Distribution Width 18.2 % (13.2-15.2)
[2016-12-01 05:56] LABS: Anion Gap 14 mmol/L; BUN/Creatinine Ratio 16.25; Blood Urea Nitrogen 13 mg/dL (7-17); Calcium 8.1 mg/dL (8.4-10.2); Carbon Dioxide 25 mmol/L (22-30); Chloride 106.4 mmol/L (98-107); Glucose 104 mg/dL (65-100); Potassium 4.4 mmol/L (3.6-5.0); Sodium 141 mmol/L (137-145)
[2016-12-01] MEDS: BROVANA NEBU IH SCH ×2 (07:50→20:09)
[2016-12-01] MEDS: NOVOLOG SUB-Q SCH ×5 (09:44→22:13)
[2016-12-01] MEDS: DILAUDID IV PRN ×2 (11:14→17:05)
[2016-12-01] MEDS: LOVENOX SUB-Q SCH (11:15)
[2016-12-01] MEDS: LASIX PO SCH (11:16)
[2016-12-01] MEDS: LEVAQUIN 750MG/150ML 750 MG/150 ML BAG IV SCH (11:16)
[2016-12-01] MEDS: ZOFRAN IV PRN ×2 (11:19→21:26)
[2016-12-01] MEDS: CULTURELLE PO SCH (12:05)
--- NOTE | 2016-12-01 20:50 | Progress Note ---
Assessment and Plan Patient alert , awake.Patient still having wheezing.O2 satuaration 99% on 2 litres O2. - Patient Problems (1) Asthma with acute exacerbation Current Visit: Yes Status: Acute Qualifiers: Asthma severity: A Plan to address problem: 1. O2 supplementation. 2. Albuterol/atrovent aerosol treatments 3. Continue I/V solumedral 4. Continue Levaquine 5. Continue S/C Lovenox. (2) Acute bronchitis Current Visit: Yes Status: Acute Qualifiers: Bronchitis organism: B Plan to address problem: Continue Levaquine. (3) Diabetes Current Visit: No Status: Acute Qualifiers: Diabetes mellitus type: D Diabetes mellitus complication status: D Diabetes mellitus complication detail: D Diabetic retinopathy severity: D Proliferative retinopathy type: P Diabetes mellitus macular edema: D Diabetes mellitus detention insulin use: D Laterality: L Chronic kidney disease stage: C Plan to address problem: Management as per primary care. (4) HTN (hypertension) Current Visit: No Status: Acute Qualifiers: Hypertension type: H Plan to address problem: Management as per primary care. (5) Seizure disorder Current Visit: Yes Status: Acute Plan to address problem: Management as per primary care and neurology. (6) Schizophrenia Current Visit: Yes Status: Acute Qualifiers: Schizophrenia type: S Plan to address problem: Recommend to consult Psychiatry. (7) HIV (human immunodeficiency virus infection) Current Visit: Yes Status: Acute Plan to address problem: Management as per primary and infectious diseases. Subjective Date of service: 12/01/16 Interval history: Patient alert , awake.Patient still having wheezing.O2 satuaration 99% on 2 litres O2. Objective Vital Signs - 12hr 12/01/16 12/01/16 12/01/16 13:45 13:55 16:00 Temperature 97.6 F Pulse Rate [ 92 H 96 H Anterior Bilateral Throughout] Pulse Rate [ Anterior Left] Pulse Rate [ Anterior Right] Pulse Rate [ 87 Left] Respiratory 20 Rate Respiratory 20 20 Rate [Anterior Bilateral Throughout] Respiratory Rate [Anterior Left] Respiratory Rate [Anterior Right] Blood Pressure 81/50 [Left Arm] O2 Sat by Pulse Oximetry 12/01/16 12/01/16 12/01/16 17:00 20:19 20:20 Temperature Pulse Rate [ Anterior Bilateral Throughout] Pulse Rate [ 80 Anterior Left] Pulse Rate [ 79 Anterior Right] Pulse Rate [ Left] Respiratory Rate Respiratory Rate [Anterior Bilateral Throughout] Respiratory 16 Rate [Anterior Left] Respiratory 20 Rate [Anterior Right] Blood Pressure 105/58 [Left Arm] O2 Sat by Pulse 99 Oximetry Constitutional: alert, other (Still having wheezing.) Eyes: non-icteric ENT: oropharynx moist Neck: supple, no lymphadenopathy Ascultation: Bilateral: wheezes, rhonchi Cardiovascular: regular rate and rhythm Gastrointestinal: normoactive bowel sounds, soft, non-tender Integumentary: normal Extremities: no cyanosis, no edema Neurologic: normal mental status, non-focal exam, pupils equal and round, CN II- XII normal Psychiatric: mood appropriate CBC and BMP: 12/01/16 04:36 12/01/16 04:36 Abnormal lab findings: Abnormal Labs 11/29/16 11/30/16 11/30/16 21:29 00:25 04:30 RBC 3.43 L Hgb Hct RDW 18.4 H Plt Count 111 L Lymph % (Auto) [place] % (Auto) 8.4 H Potassium Carbon Dioxide Glucose POC Glucose 294 H Calcium Albumin Phenytoin 1.4 L 11/30/16 11/30/16 11/30/16 04:30 06:23 16:14 RBC Hgb Hct RDW Plt Count Lymph % (Auto) [place] % (Auto) Potassium 5.2 H Carbon Dioxide 21 L Glucose 197 H POC Glucose 145 H 290 H Calcium Albumin 3.5 L Phenytoin 11/30/16 12/01/16 12/01/16 21:51 04:36 04:36 RBC 3.13 L Hgb 9.5 L Hct 29.3 L RDW 18.2 H Plt Count Lymph % (Auto) 43.6 H [place] % (Auto) 10.1 H Potassium Carbon Dioxide Glucose 104 H POC Glucose 217 H Calcium 8.1 L Albumin Phenytoin 12/01/16 04:36 RBC Hgb Hct RDW Plt Count Lymph % (Auto) [place] % (Auto) Potassium Carbon Dioxide Glucose POC Glucose Calcium Albumin Phenytoin 6.1 L Chest x-ray: report reviewed (Unremarkable chest xray.)
[2016-12-01] MEDS: DILANTIN PO SCH (21:26)
[2016-12-01] MEDS: LEVEMIR SUB-Q SCH (22:12)
--- NOTE | 2016-12-01 22:18 | Progress Note ---
Assessment and Plan Assessment and plan: 61-year-old morbidly obese AAF with COPD admitted for increasing shortness of breath and wheezing (similar presentations in the past) 1. COPD exacerbation Started on antibiotic, IV corticosteroids, inhaled bronchodilators and supplemental oxygen/pulmonary toileting Pulmonary consulted 2. Morbid obesity with ABBY/OHS Pulmonary consulted; she would benefit from sleep study Concern regarding importance of losing weight and lifestyle changes 3. Diabetes Hemoglobin A1c 7.8 Long-acting insulin Accu-Cheks and SSI to assess insulin requirements and make adjustments especially that she is on high-dose corticosteroids 4. Chronic Diastolic heart failure Continue Lasix 5. Seizure disorder: On phenytoin 6. Bipolar disorder/schizophrenia: On Seroquel 7. HIV Resume antiretrovirals DVT prophylaxis Lovenox History Interval history: SOB, wheezing Hospitalist Physical - Constitutional Vitals: Temp Pulse Resp BP Pulse Ox 97.6 F 80 16 105/58 99 12/01/16 16:00 12/01/16 20:19 12/01/16 20:19 12/01/16 17:00 12/01/16 20:20 General appearance: Present: mild distress, obese - EENT Eyes: Present: PERRL, EOM intact. Absent: scleral icterus, conjunctival injection - Neck Neck: Absent: enlarged thyroid, masses or JVD, carotid bruits - Respiratory Respiratory effort: labored Respiratory: bilateral: diminished, rhonchi, wheezing, negative: rales - Cardiovascular Rhythm: regular Heart Sounds: Present: S1 & S2. Absent: systolic murmur - Extremities Extremities: no ischemia - Abdominal General gastrointestinal: soft, non-tender, non-distended, normal bowel sounds - Integumentary Integumentary: Present: warm, dry. Absent: jaundice, rash - Psychiatric Psychiatric: cooperative - Neurologic Neurologic: CNII-XII intact, no focal deficits Results - Labs CBC & Chem 7: 12/01/16 04:36 12/01/16 04:36 Labs: Laboratory Last Values WBC 6.0 K/mm3 (4.5-11.0) 12/01/16 04:36 RBC 3.13 M/mm3 (3.65-5.03) L 12/01/16 04:36 Hgb 9.5 gm/dl (10.1-14.3) L 12/01/16 04:36 Hct 29.3 % (30.3-42.9) L 12/01/16 04:36 MCV 94 fl (79-97) 12/01/16 04:36 MCH 30 pg (28-32) 12/01/16 04:36 MCHC 32 % (30-34) 12/01/16 04:36 RDW 18.2 % (13.2-15.2) H 12/01/16 04:36 Plt Count 198 K/mm3 (140-440) 12/01/16 04:36 Lymph % (Auto) 43.6 % (13.4-35.0) H 12/01/16 04:36 [place] % (Auto) 10.1 % (0.0-7.3) H 12/01/16 04:36 Eos % (Auto) 0.1 % (0.0-4.3) 12/01/16 04:36 Baso % (Auto) 0.2 % (0.0-1.8) 12/01/16 04:36 Lymph # 2.6 K/mm3 (1.2-5.4) 12/01/16 04:36 [place] # 0.6 K/mm3 (0.0-0.8) 12/01/16 04:36 Eos # 0.0 K/mm3 (0.0-0.4) 12/01/16 04:36 Baso # 0.0 K/mm3 (0.0-0.1) 12/01/16 04:36 Seg Neutrophils % 46.0 % (40.0-70.0) 12/01/16 04:36 Seg Neutrophils # 2.7 K/mm3 (1.8-7.7) 12/01/16 04:36 Sodium 141 mmol/L (137-145) 12/01/16 04:36 Potassium 4.4 mmol/L (3.6-5.0) 12/01/16 04:36 Chloride 106.4 mmol/L (98-107) 12/01/16 04:36 Carbon Dioxide 25 mmol/L (22-30) 12/01/16 04:36 Anion Gap 14 mmol/L 12/01/16 04:36 BUN 13 mg/dL (7-17) 12/01/16 04:36 Creatinine 0.8 mg/dL (0.7-1.2) 12/01/16 04:36 Estimated GFR > 60 ml/min 12/01/16 04:36 BUN/Creatinine Ratio 16.25 % 12/01/16 04:36 Glucose 104 mg/dL (65-100) H 12/01/16 04:36 POC Glucose 217 (70-105) H 11/30/16 21:51 Hemoglobin A1c 7.8 % (4-6) H 11/29/16 13:35 Calcium 8.1 mg/dL (8.4-10.2) L 12/01/16 04:36 Total Bilirubin 0.2 mg/dL (0.1-1.2) 11/30/16 04:30 Direct Bilirubin < 0.2 mg/dL (0-0.2) 11/29/16 13:50 Indirect Bilirubin 0.1 mg/dL 11/29/16 13:50 AST 20 units/L (5-40) 11/30/16 04:30 ALT 16 units/L (7-56) 11/30/16 04:30 Alkaline Phosphatase 79 units/L (35-129) 11/30/16 04:30 Total Creatine Kinase 121 units/L (30-135) 11/29/16 13:35 CK-MB (CK-2) 1.4 ng/mL (0.0-4.0) 11/29/16 13:35 CK-MB (CK-2) Rel Index 1.1 (0-4) 11/29/16 13:35 Troponin T < 0.010 ng/mL (0.00-0.029) 11/29/16 13:35 NT-Pro-B Natriuret Pep 95.12 pg/mL (0-900) 11/29/16 13:35 Total Protein 6.3 g/dL (6.3-8.2) 11/30/16 04:30 Albumin 3.5 g/dL (3.9-5) L 11/30/16 04:30 Albumin/Globulin Ratio 1.3 % 11/30/16 04:30 Lipase 31 units/L (13-60) 11/29/16 13:50 Phenytoin 6.1 mg/L (10.0-20.0) L 12/01/16 04:36 - Imaging and Cardiology Chest x-ray: image reviewed (no acute findings)
[2016-12-02] MEDS: DUONEB 0.5 MG-3 MG/3 ML SOLN IH SCH ×4 (03:08→20:57)
--- NOTE | 2016-12-02 03:27 | Consultation ---
CONSULTED BY: Jony Joshi MD REASON FOR CONSULTATION: Asthma exacerbation, acute bronchitis. Dr. Joshi, thank you for asking me to participate in the care of this patient. HISTORY OF PRESENT ILLNESS: This is a 61-year-old -English female, morbidly obese. She has a history of asthma since childhood, admitted with shortness of breath and cough with productive white sputum and chest tightness. The patient denies any history of smoking, alcohol, or drug abuse. PAST MEDICAL HISTORY: She has a history of diabetes mellitus, HIV positive, seizure disorder, schizophrenia. ALLERGIES: She is allergic to ibuprofen, shrimp, and tetracycline. SOCIAL HISTORY: The patient is not . She has . She denies any symptoms of sleep apnea. The patient appears noncompliant with her medications. PAST SURGICAL HISTORY: She has a hysterectomy and right arm's skin graft. FAMILY HISTORY: Significant for hypertension. PHYSICAL EXAMINATION: GENERAL: Morbidly obese, no acute respiratory distress. HEENT: Pupils are equal and reactive. Extraocular muscles intact. NECK: Short and supple. HEART: Regular rate and rhythm. LUNGS: No wheezes, no rhonchi, prolonged expiratory phase. ABDOMEN: Soft and obese, nontender. Bowel sounds are present. MUSCULOSKELETAL: No edema. No calf tenderness. NEUROLOGICAL: DTR present. Babinski negative. No focal neurological deficits. LABORATORY DATA: The patient's CBC: WBC 7.2, hemoglobin 10.3, hematocrit 32.4, platelet count 111,000. The patient's BMP: Sodium 138, potassium 5.2, BUN 13, creatinine 0.7, glucose 197. Chest x-ray reported unremarkable chest x-ray. IMPRESSION: 1. Acute exacerbation of asthma. 2. Acute bronchitis. 3. Diabetes mellitus. 4. Human immunodeficiency virus positive. 5. Seizure disorder. 6. Schizophrenia. 7. Morbid obesity. PLAN: 1. O2 supplementation. 2. Albuterol and Atrovent aerosol treatments q.6h. 3. Continue IV Solu-Medrol. 4. Continue Levaquin. 5. Continue subcutaneous heparin. I want to thank Dr. Joshi for this consultation. I will follow the patient with him. JOB# [id number] [facility]
[2016-12-02] MEDS: NORCO 5/325 PO PRN (04:26)
[2016-12-02] MEDS: NOVOLOG SUB-Q SCH ×6 (08:23→23:05)
[2016-12-02] MEDS: DILAUDID IV PRN ×2 (08:28→17:09)
[2016-12-02] MEDS: BROVANA NEBU IH SCH ×2 (08:29→21:00)
[2016-12-02] MEDS: ZOFRAN IV PRN ×2 (08:29→17:08)
--- NOTE | 2016-12-02 08:47 | Query- General ---
Deasalinas Alvarado Date:_12/02/16 Pest Control Specialist/CDS:Ashanti Camarillo Phone#:[phone] Exercise your independent professional judgment when responding to this query. Questions asked do not imply a particular answer is desired or expected. We greatly appreciate your clarification on this issue. Clinical Documentation States: This is a 61-year-old female with h/o COPD insulin-dependent diabetes seizure disorder pedal edema presented with increasing shortness of breath and wheezing for the last 3 days. Cough productive of mucoid sputum. No fever no chills. No recent travel. Patient has been admitted for a COPD exacerbation in the past. Noncompliant with medications. Clinical Findings Show (include reference to source document): h/o HIV - Not on any antiretrovirals at home - out pt follow up when stable Given the above clinical scenario can you please provide an appropriate diagnosis based on your knowledge of the patient: PHYSICIAN RESPONSE: [ x ] HIV Disease [ ] AIDS [ ] Asymptomatic HIV [ ] Other __Patient is on ARVs [ ] Unable to determine Present on Admission: [x ] Yes (Y) [ ] Clinically undeterminable (W) [ ]No(N) Please also document response in your Progress Notes and/or Discharge Summary and indicate if the condition was present on admission. MTDD
--- NOTE | 2016-12-02 08:53 | Query- Dyspnea ---
Malorie Cortes Date:_12/02/16 Framing Manager/CDS:Ashanti Camarillo Phone#:[phone] Exercise your independent professional judgment when responding to query. Questions asked do not imply a particular answer is desired or expected. We greatly appreciate your clarification on this issue. Clinical Documentation States: This is a 61-year-old female with h/o COPD insulin-dependent diabetes seizure disorder pedal edema presented with increasing shortness of breath and wheezing for the last 3 days. Cough productive of mucoid sputum. No fever no chills. No recent travel. Patient has been admitted for a COPD exacerbation in the past. Noncompliant with medications. Clinical Findings Show: O2 sat: 77, 80, 81 on admission RR: 24 Respiratory exam: Tachypnea, wheezing, poor air movement Please clarify if the patient had any of the following conditions based on the above clinical findings: [ ] Respiratory Failure [ ] Acute [ ] Acute on Chronic [ ] Chronic [ ] Respiratory failure due to trauma [ ] Acute Respiratory Distress Syndrome [ ] Other: [ ] Unable to determine [ ] Comment/Explanation: Present on Admission: [ ] Yes (Y) [ ] Clinically undeterminable (W) [ ] No (N) Please also document response in your Progress Notes and/or Discharge Summary and indicate if the condition was present on admission. LAURA
[2016-12-02] MEDS: LOVENOX SUB-Q SCH (10:15)
[2016-12-02] MEDS: LEVAQUIN PO SCH (10:16)
[2016-12-02] MEDS: LASIX PO SCH (10:17)
[2016-12-02] MEDS: CULTURELLE PO SCH (10:17)
[2016-12-02] MEDS: LEVEMIR SUB-Q SCH (21:38)
[2016-12-02] MEDS: ISENTRESS PO SCH (21:40)
[2016-12-02] MEDS: DILANTIN PO SCH (21:41)
[2016-12-02] MEDS: PEPCID PO SCH (21:41)
--- NOTE | 2016-12-02 21:46 | Progress Note ---
Assessment and Plan Patient alert , awake.Patient still having some wheezing.But better than yesterday.O2 satuaration 100% on 2 litres O2. - Patient Problems (1) Asthma with acute exacerbation Current Visit: Yes Status: Acute Qualifiers: Asthma severity: A Plan to address problem: 1.O2 supplementation. 2. Albuterol/atrovent aerosol treatments 3. Continue I/V solumedral 4. Continue Levaquine 5. Continue S/C Lovenox. (2) Acute bronchitis Current Visit: Yes Status: Acute Qualifiers: Bronchitis organism: B Plan to address problem: Continue Levaquine. (3) Diabetes Current Visit: No Status: Acute Qualifiers: Diabetes mellitus type: D Diabetes mellitus complication status: D Diabetes mellitus complication detail: D Diabetic retinopathy severity: D Proliferative retinopathy type: P Diabetes mellitus macular edema: D Diabetes mellitus usp insulin use: D Laterality: L Chronic kidney disease stage: C Plan to address problem: Management as per primary care. (4) HTN (hypertension) Current Visit: No Status: Acute Qualifiers: Hypertension type: H Plan to address problem: Management as per primary care. (5) Seizure disorder Current Visit: Yes Status: Acute Plan to address problem: Management as per primary care and neurology. (6) Schizophrenia Current Visit: Yes Status: Acute Qualifiers: Schizophrenia type: S Plan to address problem: Recommend to consult Psychiatry. (7) HIV (human immunodeficiency virus infection) Current Visit: Yes Status: Acute Plan to address problem: Management as per primary and infectious diseases. Subjective Date of service: 12/02/16 Interval history: Patient alert , awake.Patient still having some wheezing.But better than yesterday.O2 satuaration 100% on 2 litres O2. Objective Vital Signs - 12hr 12/02/16 12/02/16 12/02/16 13:31 13:40 16:59 Temperature 98.5 F Pulse Rate [ 82 86 Anterior Bilateral Throughout] Pulse Rate [ 100 H Left] Respiratory 18 Rate Respiratory 16 16 Rate [Anterior Bilateral Throughout] Blood Pressure 101/58 [Left Arm] O2 Sat by Pulse 100 Oximetry 12/02/16 12/02/16 12/02/16 19:57 20:08 21:00 Temperature Pulse Rate [ 73 77 Anterior Bilateral Throughout] Pulse Rate [ Left] Respiratory Rate Respiratory 18 16 Rate [Anterior Bilateral Throughout] Blood Pressure [Left Arm] O2 Sat by Pulse 100 Oximetry Constitutional: no acute distress, alert, other (Still having some wheezing.) Eyes: non-icteric ENT: oropharynx moist Neck: supple, no lymphadenopathy Ascultation: Bilateral: wheezes, rhonchi Cardiovascular: regular rate and rhythm Gastrointestinal: normoactive bowel sounds, soft, non-tender Integumentary: normal Extremities: no cyanosis, no edema Neurologic: normal mental status, non-focal exam, pupils equal and round, CN II- XII normal Psychiatric: mood appropriate CBC and BMP: 12/01/16 04:36 12/01/16 04:36 Abnormal lab findings: Abnormal Labs 11/29/16 11/30/16 11/30/16 21:29 00:25 04:30 RBC 3.43 L Hgb Hct RDW 18.4 H Plt Count 111 L Lymph % (Auto) [place] % (Auto) 8.4 H Potassium Carbon Dioxide Glucose POC Glucose 294 H Calcium Albumin Phenytoin 1.4 L 11/30/16 11/30/16 11/30/16 04:30 06:23 16:14 RBC Hgb Hct RDW Plt Count Lymph % (Auto) [place] % (Auto) Potassium 5.2 H Carbon Dioxide 21 L Glucose 197 H POC Glucose 145 H 290 H Calcium Albumin 3.5 L Phenytoin 11/30/16 12/01/16 12/01/16 21:51 04:36 04:36 RBC 3.13 L Hgb 9.5 L Hct 29.3 L RDW 18.2 H Plt Count Lymph % (Auto) 43.6 H [place] % (Auto) 10.1 H Potassium Carbon Dioxide Glucose 104 H POC Glucose 217 H Calcium 8.1 L Albumin Phenytoin 12/01/16 12/01/16 12/01/16 04:36 16:07 21:35 RBC Hgb Hct RDW Plt Count Lymph % (Auto) [place] % (Auto) Potassium Carbon Dioxide Glucose POC Glucose 151 H 348 H Calcium Albumin Phenytoin 6.1 L 12/02/16 12/02/16 12/02/16 06:42 11:58 17:17 RBC Hgb Hct RDW Plt Count Lymph % (Auto) [place] % (Auto) Potassium Carbon Dioxide Glucose POC Glucose 179 H 51 L 236 H Calcium Albumin Phenytoin 12/02/16 21:07 RBC Hgb Hct RDW Plt Count Lymph % (Auto) [place] % (Auto) Potassium Carbon Dioxide Glucose POC Glucose 250 H Calcium Albumin Phenytoin
[2016-12-02] MEDS ORDERED: TRUVADA PO SCH (22:00)
[2016-12-02] MEDS ORDERED: ISENTRESS 400 MG PO SCH (22:00)
--- NOTE | 2016-12-02 23:46 | Progress Note ---
Assessment and Plan Assessment and plan: 61-year-old morbidly obese AAF with COPD admitted for increasing shortness of breath and wheezing (similar presentations in the past) 1. COPD exacerbation Continue antibiotic, IV corticosteroids (same dose), inhaled bronchodilators and supplemental oxygen/pulmonary toileting Pulmonary following 2. Morbid obesity with ABBY/OHS Pulmonary consulted; she would benefit from sleep study Counseled regarding importance of losing weight and lifestyle changes 3. Diabetes Hemoglobin A1c 7.8 Long-acting insulin Accu-Cheks and SSI to assess insulin requirements and make adjustments especially that she is on high-dose corticosteroids 4. Chronic Diastolic heart failure Continue Lasix 5. Seizure disorder: On phenytoin 6. Bipolar disorder/schizophrenia: On Seroquel 7. HIV Antiretrovirals resumed DVT prophylaxis Lovenox History Interval history: still SOB and wheezing, but slightly better; c/o chest discomfort/acid reflux Hospitalist Physical - Constitutional Vitals: Temp Pulse Resp BP Pulse Ox 98.5 F 77 16 101/58 100 12/02/16 16:59 12/02/16 20:08 12/02/16 20:08 12/02/16 16:59 12/02/16 21:00 General appearance: Present: mild distress, obese (morbidly) - EENT Eyes: Present: PERRL, EOM intact - Neck Neck: Present: supple. Absent: enlarged thyroid, masses or JVD - Respiratory Respiratory effort: labored (with minimal activity) Respiratory: bilateral: diminished, rhonchi, wheezing, negative: rales - Cardiovascular Rhythm: regular Heart Sounds: Present: S1 & S2. Absent: systolic murmur - Extremities Extremities: no ischemia - Abdominal General gastrointestinal: soft, non-tender, non-distended, normal bowel sounds - Psychiatric Psychiatric: cooperative - Neurologic Neurologic: CNII-XII intact, no focal deficits Results - Labs CBC & Chem 7: 12/01/16 04:36 12/01/16 04:36 Labs: Laboratory Last Values WBC 6.0 K/mm3 (4.5-11.0) 12/01/16 04:36 RBC 3.13 M/mm3 (3.65-5.03) L 12/01/16 04:36 Hgb 9.5 gm/dl (10.1-14.3) L 12/01/16 04:36 Hct 29.3 % (30.3-42.9) L 12/01/16 04:36 MCV 94 fl (79-97) 12/01/16 04:36 MCH 30 pg (28-32) 12/01/16 04:36 MCHC 32 % (30-34) 12/01/16 04:36 RDW 18.2 % (13.2-15.2) H 12/01/16 04:36 Plt Count 198 K/mm3 (140-440) 12/01/16 04:36 Lymph % (Auto) 43.6 % (13.4-35.0) H 12/01/16 04:36 [place] % (Auto) 10.1 % (0.0-7.3) H 12/01/16 04:36 Eos % (Auto) 0.1 % (0.0-4.3) 12/01/16 04:36 Baso % (Auto) 0.2 % (0.0-1.8) 12/01/16 04:36 Lymph # 2.6 K/mm3 (1.2-5.4) 12/01/16 04:36 [place] # 0.6 K/mm3 (0.0-0.8) 12/01/16 04:36 Eos # 0.0 K/mm3 (0.0-0.4) 12/01/16 04:36 Baso # 0.0 K/mm3 (0.0-0.1) 12/01/16 04:36 Seg Neutrophils % 46.0 % (40.0-70.0) 12/01/16 04:36 Seg Neutrophils # 2.7 K/mm3 (1.8-7.7) 12/01/16 04:36 Sodium 141 mmol/L (137-145) 12/01/16 04:36 Potassium 4.4 mmol/L (3.6-5.0) 12/01/16 04:36 Chloride 106.4 mmol/L (98-107) 12/01/16 04:36 Carbon Dioxide 25 mmol/L (22-30) 12/01/16 04:36 Anion Gap 14 mmol/L 12/01/16 04:36 BUN 13 mg/dL (7-17) 12/01/16 04:36 Creatinine 0.8 mg/dL (0.7-1.2) 12/01/16 04:36 Estimated GFR > 60 ml/min 12/01/16 04:36 BUN/Creatinine Ratio 16.25 % 12/01/16 04:36 Glucose 104 mg/dL (65-100) H 12/01/16 04:36 POC Glucose 250 (70-105) H 12/02/16 21:07 Hemoglobin A1c 7.8 % (4-6) H 11/29/16 13:35 Calcium 8.1 mg/dL (8.4-10.2) L 12/01/16 04:36 Total Bilirubin 0.2 mg/dL (0.1-1.2) 11/30/16 04:30 Direct Bilirubin < 0.2 mg/dL (0-0.2) 11/29/16 13:50 Indirect Bilirubin 0.1 mg/dL 11/29/16 13:50 AST 20 units/L (5-40) 11/30/16 04:30 ALT 16 units/L (7-56) 11/30/16 04:30 Alkaline Phosphatase 79 units/L (35-129) 11/30/16 04:30 Total Creatine Kinase 121 units/L (30-135) 11/29/16 13:35 CK-MB (CK-2) 1.4 ng/mL (0.0-4.0) 11/29/16 13:35 CK-MB (CK-2) Rel Index 1.1 (0-4) 11/29/16 13:35 Troponin T < 0.010 ng/mL (0.00-0.029) 11/29/16 13:35 NT-Pro-B Natriuret Pep 95.12 pg/mL (0-900) 11/29/16 13:35 Total Protein 6.3 g/dL (6.3-8.2) 11/30/16 04:30 Albumin 3.5 g/dL (3.9-5) L 11/30/16 04:30 Albumin/Globulin Ratio 1.3 % 11/30/16 04:30 Lipase 31 units/L (13-60) 11/29/16 13:50 Phenytoin 6.1 mg/L (10.0-20.0) L 12/01/16 04:36
[2016-12-03] MEDS: DUONEB 0.5 MG-3 MG/3 ML SOLN IH SCH ×4 (02:05→20:33)
[2016-12-03] MEDS: NORCO 5/325 PO PRN ×3 (02:38→17:32)
[2016-12-03] MEDS: BROVANA NEBU IH SCH ×2 (08:57→20:33)
[2016-12-03] MEDS: NOVOLOG SUB-Q SCH ×4 (09:07→22:51)
[2016-12-03] MEDS: ZOFRAN IV PRN ×2 (09:14→22:49)
[2016-12-03] MEDS: LASIX PO SCH (11:24)
[2016-12-03] MEDS: PEPCID PO SCH ×2 (11:24→21:27)
[2016-12-03] MEDS: LEVAQUIN PO SCH (11:25)
[2016-12-03] MEDS: ISENTRESS PO SCH ×2 (11:26→21:28)
[2016-12-03] MEDS: CULTURELLE PO SCH (11:26)
[2016-12-03] MEDS: LOVENOX SUB-Q SCH (11:27)
[2016-12-03] MEDS ORDERED: D50W (25GM) IV PRN (12:47)
--- NOTE | 2016-12-03 16:33 | Progress Note ---
Assessment and Plan - Patient Problems (1) Acute exacerbation of chronic obstructive pulmonary disease (COPD) Current Visit: Yes Status: Acute Plan to address problem: Supplemental oxygen to keep O2 saturations>90% Bronchodilator therapy, steroids Airway clearance techniques Accucheck with glycemic control while on steroids VTE prohylaxis (2) Acute bronchitis Current Visit: Yes Status: Acute Qualifiers: Bronchitis organism: B Plan to address problem: Antibiotics (3) Abdominal pain Current Visit: Yes Status: Acute Qualifiers: Abdominal location: A Plan to address problem: Will need imaging. Patient states she had IVC filter placed some years ago for DVT. Evaluate the position to ensure it has not migrated. CT scan with po and IV contrast will also assist in evaluating for other abdominal pathologies. (4) HIV (human immunodeficiency virus infection) Current Visit: Yes Status: Acute Plan to address problem: Continue all home therapies (5) Morbid obesity with BMI of 45.0-49.9, adult Current Visit: Yes Status: Acute Plan to address problem: Lifestyle modifications, weight loss and exercise as an out patient Subjective Date of service: 12/03/16 Principal diagnosis: Respiratory distress, acute exacerbation of asthma Interval history: States she has abdominal pain- mid abdomen. Denies any nausea or vomiting. No fevers or chills. She had a urine analysis done on admission. On supplemental oxygen at 2l/min. Her breathing is better but she still gets some shortness of breath. Denies any fevers or chills. has a moist cough. Patient was seen and examined. Vitals, labs, medications, chart and imaging reviewed. Objective - Exam Narrative Exam: General appearance: Present: no acute distress, mild distress, obese - EENT Eyes: Present: PERRL ENT: hearing intact, clear oral mucosa - Neck Neck: Present: supple, normal ROM - Respiratory Respiratory effort: normal Respiratory: bilateral: CTA, rhonchi, wheezing - Cardiovascular Heart rate: 80 Rhythm: regular Heart Sounds: Present: S1 & S2. Absent: rub, click - Extremities Extremities: pulses symmetrical, No edema Peripheral Pulses: within normal limits - Abdominal General gastrointestinal: Present: soft, Female genitourinary: Present: normal - Rectal Rectal Exam: deferred - Integumentary Integumentary: Present: clear, warm, dry - Musculoskeletal Musculoskeletal: gait normal, strength equal bilaterally - Psychiatric Psychiatric: appropriate mood/affect, intact judgment & insight - Neurologic Neurologic: CNII-XII intact, moves all extremities Vital Signs - 12hr 12/03/16 12/03/16 12/03/16 08:50 08:58 09:11 Temperature 97.6 F Pulse Rate [ 82 Left Radial] Pulse Rate [ 82 83 Posterior Bilateral Throughout] Respiratory 22 Rate Respiratory 18 18 Rate [Posterior Bilateral Throughout] Blood Pressure 130/85 [Left Arm] O2 Sat by Pulse 100 100 Oximetry 12/03/16 12/03/16 12/03/16 13:41 14:42 14:55 Temperature Pulse Rate [ Left Radial] Pulse Rate [ 96 H 94 H Posterior Bilateral Throughout] Respiratory Rate Respiratory 18 18 Rate [Posterior Bilateral Throughout] Blood Pressure [Left Arm] O2 Sat by Pulse 100 Oximetry 12/03/16 15:26 Temperature 98.0 F Pulse Rate [ 87 Left Radial] Pulse Rate [ Posterior Bilateral Throughout] Respiratory 22 Rate Respiratory Rate [Posterior Bilateral Throughout] Blood Pressure 101/68 [Left Arm] O2 Sat by Pulse 99 Oximetry Constitutional: no acute distress, alert, other (Still having some wheezing.) Eyes: non-icteric ENT: oropharynx moist Neck: supple, no lymphadenopathy Ascultation: Bilateral: wheezes, rhonchi Cardiovascular: regular rate and rhythm Gastrointestinal: normoactive bowel sounds, soft, non-tender, tender (mid abdomen on deep palpation), non-distended Integumentary: normal Extremities: no cyanosis, no edema, pulses normal, no ischemia or petechiae Neurologic: normal mental status, non-focal exam, pupils equal and round, CN II- XII normal Psychiatric: mood appropriate, affect normal CBC and BMP: 12/01/16 04:36 12/01/16 04:36 Abnormal lab findings: Abnormal Labs 11/29/16 11/30/16 11/30/16 21:29 00:25 04:30 RBC 3.43 L Hgb Hct RDW 18.4 H Plt Count 111 L Lymph % (Auto) [place] % (Auto) 8.4 H Potassium Carbon Dioxide Glucose POC Glucose 294 H Calcium Albumin Phenytoin 1.4 L 11/30/16 11/30/16 11/30/16 04:30 06:23 16:14 RBC Hgb Hct RDW Plt Count Lymph % (Auto) [place] % (Auto) Potassium 5.2 H Carbon Dioxide 21 L Glucose 197 H POC Glucose 145 H 290 H Calcium Albumin 3.5 L Phenytoin 11/30/16 12/01/16 12/01/16 21:51 04:36 04:36 RBC 3.13 L Hgb 9.5 L Hct 29.3 L RDW 18.2 H Plt Count Lymph % (Auto) 43.6 H [place] % (Auto) 10.1 H Potassium Carbon Dioxide Glucose 104 H POC Glucose 217 H Calcium 8.1 L Albumin Phenytoin 12/01/16 12/01/16 12/01/16 04:36 16:07 21:35 RBC Hgb Hct RDW Plt Count Lymph % (Auto) [place] % (Auto) Potassium Carbon Dioxide Glucose POC Glucose 151 H 348 H Calcium Albumin Phenytoin 6.1 L 12/02/16 12/02/16 12/02/16 06:42 11:58 17:17 RBC Hgb Hct RDW Plt Count Lymph % (Auto) [place] % (Auto) Potassium Carbon Dioxide Glucose POC Glucose 179 H 51 L 236 H Calcium Albumin Phenytoin 12/02/16 12/03/16 12/03/16 21:07 00:17 00:21 RBC Hgb Hct RDW Plt Count Lymph % (Auto) [place] % (Auto) Potassium Carbon Dioxide Glucose POC Glucose 250 H 256 H 248 H Calcium Albumin Phenytoin 12/03/16 12/03/16 12/03/16 06:20 12:14 13:02 RBC Hgb Hct RDW Plt Count Lymph % (Auto) [place] % (Auto) Potassium Carbon Dioxide Glucose POC Glucose 195 H < 40 L 168 H Calcium Albumin Phenytoin Chest x-ray: report reviewed
[2016-12-03] MEDS: DILANTIN PO SCH (21:27)
--- NOTE | 2016-12-03 21:29 | Progress Note ---
Assessment and Plan Assessment and plan: 61-year-old morbidly obese AAF with COPD admitted for increasing shortness of breath and wheezing (similar presentations in the past) 1. COPD exacerbation Continue antibiotic, IV corticosteroids (start taper), inhaled bronchodilators and supplemental oxygen/pulmonary toileting 2. Morbid obesity with ABBY/OHS Pulmonary consulted; she would benefit from sleep study Counseled regarding importance of losing weight and lifestyle changes 3. Diabetes Hemoglobin A1c 7.8 Long-acting insulin Accu-Cheks and SSI to assess insulin requirements and make adjustments especially that she is on high-dose corticosteroids 4. Chronic Diastolic heart failure Continue Lasix 5. Seizure disorder: On phenytoin 6. Bipolar disorder/schizophrenia: On Seroquel 7. HIV Antiretrovirals resumed DVT prophylaxis Lovenox History Interval history: felling better, improving, but still wheezing; had an episode of hyp[oglycemia Hospitalist Physical - Constitutional Vitals: Temp Pulse Resp BP Pulse Ox 98.0 F 87 20 101/68 97 12/03/16 15:26 12/03/16 20:45 12/03/16 20:45 12/03/16 15:26 12/03/16 20:36 General appearance: Present: no acute distress, obese (morbidly) - EENT Eyes: Present: PERRL, EOM intact - Neck Neck: Present: supple. Absent: enlarged thyroid, masses or JVD - Respiratory Respiratory effort: normal Respiratory: bilateral: diminished, wheezing, negative: rales, rhonchi - Cardiovascular Rhythm: regular Heart Sounds: Present: S1 & S2. Absent: systolic murmur - Extremities Extremities: no ischemia - Abdominal General gastrointestinal: soft, non-tender, non-distended, normal bowel sounds - Psychiatric Psychiatric: cooperative - Neurologic Neurologic: CNII-XII intact, no focal deficits Results - Labs CBC & Chem 7: 12/01/16 04:36 12/01/16 04:36 Labs: Laboratory Last Values WBC 6.0 K/mm3 (4.5-11.0) 12/01/16 04:36 RBC 3.13 M/mm3 (3.65-5.03) L 12/01/16 04:36 Hgb 9.5 gm/dl (10.1-14.3) L 12/01/16 04:36 Hct 29.3 % (30.3-42.9) L 12/01/16 04:36 MCV 94 fl (79-97) 12/01/16 04:36 MCH 30 pg (28-32) 12/01/16 04:36 MCHC 32 % (30-34) 12/01/16 04:36 RDW 18.2 % (13.2-15.2) H 12/01/16 04:36 Plt Count 198 K/mm3 (140-440) 12/01/16 04:36 Lymph % (Auto) 43.6 % (13.4-35.0) H 12/01/16 04:36 [place] % (Auto) 10.1 % (0.0-7.3) H 12/01/16 04:36 Eos % (Auto) 0.1 % (0.0-4.3) 12/01/16 04:36 Baso % (Auto) 0.2 % (0.0-1.8) 12/01/16 04:36 Lymph # 2.6 K/mm3 (1.2-5.4) 12/01/16 04:36 [place] # 0.6 K/mm3 (0.0-0.8) 12/01/16 04:36 Eos # 0.0 K/mm3 (0.0-0.4) 12/01/16 04:36 Baso # 0.0 K/mm3 (0.0-0.1) 12/01/16 04:36 Seg Neutrophils % 46.0 % (40.0-70.0) 12/01/16 04:36 Seg Neutrophils # 2.7 K/mm3 (1.8-7.7) 12/01/16 04:36 Sodium 141 mmol/L (137-145) 12/01/16 04:36 Potassium 4.4 mmol/L (3.6-5.0) 12/01/16 04:36 Chloride 106.4 mmol/L (98-107) 12/01/16 04:36 Carbon Dioxide 25 mmol/L (22-30) 12/01/16 04:36 Anion Gap 14 mmol/L 12/01/16 04:36 BUN 13 mg/dL (7-17) 12/01/16 04:36 Creatinine 0.8 mg/dL (0.7-1.2) 12/01/16 04:36 Estimated GFR > 60 ml/min 12/01/16 04:36 BUN/Creatinine Ratio 16.25 % 12/01/16 04:36 Glucose 104 mg/dL (65-100) H 12/01/16 04:36 POC Glucose 147 (70-105) H 12/03/16 16:37 Hemoglobin A1c 7.8 % (4-6) H 11/29/16 13:35 Calcium 8.1 mg/dL (8.4-10.2) L 12/01/16 04:36 Total Bilirubin 0.2 mg/dL (0.1-1.2) 11/30/16 04:30 Direct Bilirubin < 0.2 mg/dL (0-0.2) 11/29/16 13:50 Indirect Bilirubin 0.1 mg/dL 11/29/16 13:50 AST 20 units/L (5-40) 11/30/16 04:30 ALT 16 units/L (7-56) 11/30/16 04:30 Alkaline Phosphatase 79 units/L (35-129) 11/30/16 04:30 Total Creatine Kinase 121 units/L (30-135) 11/29/16 13:35 CK-MB (CK-2) 1.4 ng/mL (0.0-4.0) 11/29/16 13:35 CK-MB (CK-2) Rel Index 1.1 (0-4) 11/29/16 13:35 Troponin T < 0.010 ng/mL (0.00-0.029) 11/29/16 13:35 NT-Pro-B Natriuret Pep 95.12 pg/mL (0-900) 11/29/16 13:35 Total Protein 6.3 g/dL (6.3-8.2) 11/30/16 04:30 Albumin 3.5 g/dL (3.9-5) L 11/30/16 04:30 Albumin/Globulin Ratio 1.3 % 11/30/16 04:30 Lipase 31 units/L (13-60) 11/29/16 13:50 Phenytoin 6.1 mg/L (10.0-20.0) L 12/01/16 04:36
[2016-12-03] MEDS: AMBIEN PO PRN (22:49)
[2016-12-03] MEDS: DILAUDID IV PRN (22:50)
[2016-12-03] MEDS: LEVEMIR SUB-Q SCH (22:52)
[2016-12-04] MEDS: DUONEB 0.5 MG-3 MG/3 ML SOLN IH SCH ×4 (01:53→22:10)
[2016-12-04] MEDS: BROVANA NEBU IH SCH ×2 (08:30→22:10)
[2016-12-04] MEDS: NOVOLOG SUB-Q SCH ×4 (08:35→23:23)
[2016-12-04] MEDS: ZOFRAN IV PRN ×2 (08:36→20:29)
[2016-12-04] MEDS: NORCO 5/325 PO PRN (08:36)
[2016-12-04] MEDS: LOVENOX SUB-Q SCH (11:30)
[2016-12-04] MEDS: PEPCID PO SCH ×2 (11:30→22:05)
[2016-12-04] MEDS: LASIX PO SCH (11:31)
[2016-12-04] MEDS: VIREAD PO SCH (11:31)
[2016-12-04] MEDS: CULTURELLE PO SCH (11:31)
[2016-12-04] MEDS: ISENTRESS PO SCH ×2 (11:31→22:05)
[2016-12-04] MEDS: EMTRIVA PO SCH (11:32)
[2016-12-04] MEDS: LEVAQUIN PO SCH (11:33)
--- NOTE | 2016-12-04 14:30 | Progress Note ---
Assessment and Plan - Patient Problems (1) Acute exacerbation of chronic obstructive pulmonary disease (COPD) Current Visit: Yes Status: Acute Plan to address problem: Supplemental oxygen to keep O2 saturations>90% Bronchodilator therapy, steroids Airway clearance techniques Accucheck with glycemic control while on steroids VTE prohylaxis (2) Acute bronchitis Current Visit: Yes Status: Acute Qualifiers: Bronchitis organism: B Plan to address problem: Antibiotics (3) Abdominal pain Current Visit: Yes Status: Acute Qualifiers: Abdominal location: A Plan to address problem: Will need imaging. Patient states she had IVC filter placed some years ago for DVT. Evaluate the position to ensure it has not migrated. CT scan with po and IV contrast will also assist in evaluating for other abdominal pathologies. (4) HIV (human immunodeficiency virus infection) Current Visit: Yes Status: Acute Plan to address problem: Continue all home therapies (5) Morbid obesity with BMI of 45.0-49.9, adult Current Visit: Yes Status: Acute Plan to address problem: Lifestyle modifications, weight loss and exercise as an out patient Subjective Date of service: 12/04/16 Principal diagnosis: Respiratory distress, acute exacerbation of asthma Interval history: No acute overnight events. On going complaints of abdominal pain- mid abdomen. Denies any nausea or vomiting. No fevers or chills. She had a urine analysis done on admission. On supplemental oxygen at 2l/min. Her breathing is better but she still gets some shortness of breath. Denies any fevers or chills. has a moist cough. Patient was seen and examined. Vitals, labs, medications, chart and imaging reviewed. Objective Vital Signs - 12hr 12/04/16 12/04/16 12/04/16 08:00 08:30 08:44 Temperature 98.1 F Pulse Rate [ 85 Left Radial] Pulse Rate [ 75 85 Posterior Bilateral Throughout] Respiratory 20 Rate Respiratory 20 Rate [Posterior Bilateral Throughout] Blood Pressure [Left Arm] Blood Pressure 92/50 [Right Arm] O2 Sat by Pulse 100 100 Oximetry 12/04/16 12:43 Temperature 98.1 F Pulse Rate [ 91 H Left Radial] Pulse Rate [ Posterior Bilateral Throughout] Respiratory 20 Rate Respiratory Rate [Posterior Bilateral Throughout] Blood Pressure 125/71 [Left Arm] Blood Pressure [Right Arm] O2 Sat by Pulse 100 Oximetry Constitutional: no acute distress, alert, other (Still having some wheezing.) Eyes: non-icteric ENT: oropharynx moist Neck: supple, no lymphadenopathy, no JVD Effort: normal Ascultation: Bilateral: wheezes, rhonchi Cardiovascular: regular rate and rhythm, other (S1,S2 no murmurs, gallops or rubs) Gastrointestinal: normoactive bowel sounds, soft, non-tender, tender (mid abdomen on deep palpation), non-distended Integumentary: normal Extremities: no cyanosis, no edema, pulses normal, no ischemia or petechiae Neurologic: normal mental status, non-focal exam, pupils equal and round, CN II- XII normal Psychiatric: mood appropriate, affect normal CBC and BMP: 12/01/16 04:36 12/01/16 04:36 Abnormal lab findings: Abnormal Labs 11/29/16 11/30/16 11/30/16 21:29 00:25 04:30 RBC 3.43 L Hgb Hct RDW 18.4 H Plt Count 111 L Lymph % (Auto) [place] % (Auto) 8.4 H Potassium Carbon Dioxide Glucose POC Glucose 294 H Calcium Albumin Phenytoin 1.4 L 11/30/16 11/30/16 11/30/16 04:30 06:23 16:14 RBC Hgb Hct RDW Plt Count Lymph % (Auto) [place] % (Auto) Potassium 5.2 H Carbon Dioxide 21 L Glucose 197 H POC Glucose 145 H 290 H Calcium Albumin 3.5 L Phenytoin 11/30/16 12/01/16 12/01/16 21:51 04:36 04:36 RBC 3.13 L Hgb 9.5 L Hct 29.3 L RDW 18.2 H Plt Count Lymph % (Auto) 43.6 H Green % (Auto) 10.1 H Potassium Carbon Dioxide Glucose 104 H POC Glucose 217 H Calcium 8.1 L Albumin Phenytoin 12/01/16 12/01/16 12/01/16 04:36 16:07 21:35 RBC Hgb Hct RDW Plt Count Lymph % (Auto) [place] % (Auto) Potassium Carbon Dioxide Glucose POC Glucose 151 H 348 H Calcium Albumin Phenytoin 6.1 L 12/02/16 12/02/16 12/02/16 06:42 11:58 17:17 RBC Hgb Hct RDW Plt Count Lymph % (Auto) [place] % (Auto) Potassium Carbon Dioxide Glucose POC Glucose 179 H 51 L 236 H Calcium Albumin Phenytoin 04/12/17 04/13/17 04/13/17 21:07 00:17 00:21 RBC Hgb Hct RDW Plt Count Lymph % (Auto) [place] % (Auto) Potassium Carbon Dioxide Glucose POC Glucose 250 H 256 H 248 H Calcium Albumin Phenytoin 12/03/16 12/03/16 12/03/16 06:20 12:14 13:02 RBC Hgb Hct RDW Plt Count Lymph % (Auto) [place] % (Auto) Potassium Carbon Dioxide Glucose POC Glucose 195 H < 40 L 168 H Calcium Albumin Phenytoin 12/03/16 12/03/16 12/04/16 16:37 21:40 05:59 RBC Hgb Hct RDW Plt Count Lymph % (Auto) [place] % (Auto) Potassium Carbon Dioxide Glucose POC Glucose 147 H 275 H 230 H Calcium Albumin Phenytoin 12/04/16 11:17 RBC Hgb Hct RDW Plt Count Lymph % (Auto) [place] % (Auto) Potassium Carbon Dioxide Glucose POC Glucose 136 H Calcium Albumin Phenytoin
--- NOTE | 2016-12-04 17:04 | Progress Note ---
Assessment and Plan Assessment and plan: 61-year-old morbidly obese AAF with COPD admitted for increasing shortness of breath and wheezing (similar presentations in the past) 1. COPD exacerbation Continue antibiotic, IV corticosteroids (further lowered the dose today and plan to switch to by mouth tomorrow), inhaled bronchodilators and supplemental oxygen/pulmonary toileting 2. Morbid obesity with ABBY/OHS Pulmonary consulted; she would benefit from sleep study Counseled regarding importance of losing weight and lifestyle changes 3. Diabetes Hemoglobin A1c 7.8 Long-acting insulin Accu-Cheks and SSI to assess insulin requirements and make adjustments especially that she is on high-dose corticosteroids 4. Chronic Diastolic heart failure Continue Lasix 5. Seizure disorder: On phenytoin 6. Bipolar disorder/schizophrenia: On Seroquel 7. HIV Antiretrovirals resumed DVT prophylaxis Lovenox History Interval history: felling better, improving,still having exp wheezes, c/o abd discomfort Hospitalist Physical - Constitutional Vitals: Temp Pulse Resp BP Pulse Ox 98.1 F 92 H 20 125/71 100 12/04/16 12:43 12/04/16 13:57 12/04/16 13:57 12/04/16 12:43 12/04/16 12:43 General appearance: Present: no acute distress, obese (morbidly) - EENT Eyes: Present: PERRL, EOM intact. Absent: scleral icterus, conjunctival injection - Neck Neck: Present: supple. Absent: enlarged thyroid, masses or JVD - Respiratory Respiratory effort: normal (at rest) Respiratory: bilateral: CTA, wheezing, negative: rales, rhonchi - Cardiovascular Rhythm: regular Heart Sounds: Present: S1 & S2. Absent: systolic murmur - Extremities Extremities: no ischemia - Abdominal General gastrointestinal: soft, non-tender, non-distended, normal bowel sounds - Integumentary Integumentary: Present: warm, dry. Absent: jaundice, rash - Psychiatric Psychiatric: cooperative - Neurologic Neurologic: CNII-XII intact, no focal deficits Results - Labs CBC & Chem 7: 12/01/16 04:36 12/01/16 04:36 Labs: Laboratory Last Values WBC 6.0 K/mm3 (4.5-11.0) 12/01/16 04:36 RBC 3.13 M/mm3 (3.65-5.03) L 12/01/16 04:36 Hgb 9.5 gm/dl (10.1-14.3) L 12/01/16 04:36 Hct 29.3 % (30.3-42.9) L 12/01/16 04:36 MCV 94 fl (79-97) 12/01/16 04:36 MCH 30 pg (28-32) 12/01/16 04:36 MCHC 32 % (30-34) 12/01/16 04:36 RDW 18.2 % (13.2-15.2) H 12/01/16 04:36 Plt Count 198 K/mm3 (140-440) 12/01/16 04:36 Lymph % (Auto) 43.6 % (13.4-35.0) H 12/01/16 04:36 [place] % (Auto) 10.1 % (0.0-7.3) H 12/01/16 04:36 Eos % (Auto) 0.1 % (0.0-4.3) 12/01/16 04:36 Baso % (Auto) 0.2 % (0.0-1.8) 12/01/16 04:36 Lymph # 2.6 K/mm3 (1.2-5.4) 12/01/16 04:36 [place] # 0.6 K/mm3 (0.0-0.8) 12/01/16 04:36 Eos # 0.0 K/mm3 (0.0-0.4) 12/01/16 04:36 Baso # 0.0 K/mm3 (0.0-0.1) 12/01/16 04:36 Seg Neutrophils % 46.0 % (40.0-70.0) 12/01/16 04:36 Seg Neutrophils # 2.7 K/mm3 (1.8-7.7) 12/01/16 04:36 Sodium 141 mmol/L (137-145) 12/01/16 04:36 Potassium 4.4 mmol/L (3.6-5.0) 12/01/16 04:36 Chloride 106.4 mmol/L (98-107) 12/01/16 04:36 Carbon Dioxide 25 mmol/L (22-30) 12/01/16 04:36 Anion Gap 14 mmol/L 12/01/16 04:36 BUN 13 mg/dL (7-17) 12/01/16 04:36 Creatinine 0.8 mg/dL (0.7-1.2) 12/01/16 04:36 Estimated GFR > 60 ml/min 12/01/16 04:36 BUN/Creatinine Ratio 16.25 % 12/01/16 04:36 Glucose 104 mg/dL (65-100) H 12/01/16 04:36 POC Glucose 136 (70-105) H 12/04/16 11:17 Hemoglobin A1c 7.8 % (4-6) H 11/29/16 13:35 Calcium 8.1 mg/dL (8.4-10.2) L 12/01/16 04:36 Total Bilirubin 0.2 mg/dL (0.1-1.2) 11/30/16 04:30 Direct Bilirubin < 0.2 mg/dL (0-0.2) 11/29/16 13:50 Indirect Bilirubin 0.1 mg/dL 11/29/16 13:50 AST 20 units/L (5-40) 11/30/16 04:30 ALT 16 units/L (7-56) 11/30/16 04:30 Alkaline Phosphatase 79 units/L (35-129) 11/30/16 04:30 Total Creatine Kinase 121 units/L (30-135) 11/29/16 13:35 CK-MB (CK-2) 1.4 ng/mL (0.0-4.0) 11/29/16 13:35 CK-MB (CK-2) Rel Index 1.1 (0-4) 11/29/16 13:35 Troponin T < 0.010 ng/mL (0.00-0.029) 11/29/16 13:35 NT-Pro-B Natriuret Pep 95.12 pg/mL (0-900) 11/29/16 13:35 Total Protein 6.3 g/dL (6.3-8.2) 11/30/16 04:30 Albumin 3.5 g/dL (3.9-5) L 11/30/16 04:30 Albumin/Globulin Ratio 1.3 % 11/30/16 04:30 Lipase 31 units/L (13-60) 11/29/16 13:50 Phenytoin 6.1 mg/L (10.0-20.0) L 12/01/16 04:36
[2016-12-04] MEDS ORDERED: NACL ONE (17:46)
--- NOTE | 2016-12-04 20:19 | Cat Scan Report ---
FINAL REPORT EXAM: CT ABDOMEN PELVIS WO/W CON HISTORY: abdominal pain, h/o IVC filter 2 years ago TECHNIQUE: Spiral CT scanning of the abdomen and pelvis before and after the uneventful administration of IV contrast. Multiplanar reformations. 100 mL Omnipaque IV. PRIORS: 18 October 2016. FINDINGS: Abdomen: Visualized lung bases show mild atelectatic change or scarring bilaterally. Mild cardiomegaly stable. Small hiatal hernia again noted. No radiopaque gallstones. Liver without significant abnormality. Spleen without significant abnormality. Pancreas without significant abnormality. Kidneys without significant abnormality. Adrenal glands without significant abnormality. Pelvis: Bowel grossly unremarkable, with mild diverticular change scattered in the left colon and large amount of retained stool. Appendix within normal limits. No significant free peritoneal fluid or apparent adenopathy. Abdominal aorta non-aneurysmal. IVC filter again noted. Uterus surgically absent. Degenerative change in the lumbar spine. IMPRESSION: 1. No acute findings or significant interval change. 2. Constipation.
[2016-12-04] MEDS: DILAUDID IV PRN (20:29)
[2016-12-04] MEDS: DILANTIN PO SCH (22:04)
[2016-12-04] MEDS: AMBIEN PO PRN (23:23)
[2016-12-04] MEDS: LEVEMIR SUB-Q SCH (23:23)
[2016-12-05] MEDS: DUONEB 0.5 MG-3 MG/3 ML SOLN IH SCH ×4 (02:38→19:47)
[2016-12-05] MEDS: NOVOLOG SUB-Q SCH ×4 (07:30→21:36)
[2016-12-05] MEDS: BROVANA NEBU IH SCH ×2 (07:31→19:47)
[2016-12-05] MEDS: DILAUDID IV PRN ×2 (09:02→18:00)
[2016-12-05] MEDS: LOVENOX SUB-Q SCH (09:02)
[2016-12-05] MEDS: ZOFRAN IV PRN ×2 (09:02→18:00)
[2016-12-05] MEDS: VIREAD PO SCH (09:03)
[2016-12-05] MEDS: CULTURELLE PO SCH (09:03)
[2016-12-05] MEDS: PEPCID PO SCH ×2 (09:04→21:31)
[2016-12-05] MEDS: LEVAQUIN PO SCH (09:04)
[2016-12-05] MEDS: LASIX PO SCH (09:04)
[2016-12-05] MEDS: ISENTRESS PO SCH ×2 (09:04→21:31)
[2016-12-05] MEDS: EMTRIVA PO SCH (09:04)
--- NOTE | 2016-12-05 10:59 | Progress Note ---
Assessment and Plan - Patient Problems (1) Acute exacerbation of chronic obstructive pulmonary disease (COPD) Current Visit: Yes Status: Acute Plan to address problem: Supplemental oxygen to keep O2 saturations>90% Bronchodilator therapy, steroids Airway clearance techniques Accucheck with glycemic control while on steroids VTE prohylaxis Add azithromycin for anti-inflammatory properties add montelukast to therapy (2) Acute bronchitis Current Visit: Yes Status: Acute Qualifiers: Bronchitis organism: B Plan to address problem: Antibiotics (3) Abdominal pain Current Visit: Yes Status: Acute Qualifiers: Abdominal location: A Plan to address problem: CT scan with po and IV contrast of the abdomen and pelvis was unremarkable. Could be PUD/GERD. Acid-suppression therapy (4) HIV (human immunodeficiency virus infection) Current Visit: Yes Status: Acute (5) Morbid obesity with BMI of 45.0-49.9, adult Current Visit: Yes Status: Acute Plan to address problem: Lifestyle modifications, weight loss and exercise as an out patient Subjective Date of service: 12/05/16 Principal diagnosis: Respiratory distress, acute exacerbation of asthma Interval history: No acute overnight events. On going complaints of abdominal pain- mid abdomen. Denies any nausea or vomiting. CT abdomen and pelvis unremarkable. No fevers or chills. On supplemental oxygen at 2l/min. Her breathing is better but she still gets some shortness of breath. Denies any fevers or chills. has a moist cough. Patient was seen and examined. Vitals, labs, medications, chart and imaging reviewed. Objective - Exam Narrative Exam: General appearance: Present: no acute distress, mild distress, obese - EENT Eyes: Present: PERRL ENT: hearing intact, clear oral mucosa - Neck Neck: Present: supple, normal ROM - Respiratory Respiratory effort: normal Respiratory: bilateral: CTA, rhonchi, wheezing - Cardiovascular Heart rate: 80 Rhythm: regular Heart Sounds: Present: S1 & S2. Absent: rub, click - Extremities Extremities: pulses symmetrical, No edema Peripheral Pulses: within normal limits - Abdominal General gastrointestinal: Present: soft, non-tender, non-distended, normal bowel sounds Female genitourinary: Present: normal - Rectal Rectal Exam: deferred - Integumentary Integumentary: Present: clear, warm, dry - Musculoskeletal Musculoskeletal: gait normal, strength equal bilaterally - Psychiatric Psychiatric: appears depressed - Neurologic Neurologic: CNII-XII intact, moves all extremities Vital Signs - 12hr 12/04/16 12/05/16 12/05/16 23:53 07:45 07:55 Temperature 98.3 F Pulse Rate [ 88 Left] Pulse Rate [ 88 86 Posterior Bilateral Throughout] Respiratory 18 Rate Respiratory 18 18 Rate [Posterior Bilateral Throughout] Blood Pressure 117/67 [Right Arm] O2 Sat by Pulse 98 Oximetry 12/05/16 12/05/16 08:00 08:56 Temperature 98.9 F Pulse Rate [ 105 H Left] Pulse Rate [ Posterior Bilateral Throughout] Respiratory 20 Rate Respiratory Rate [Posterior Bilateral Throughout] Blood Pressure 111/75 [Right Arm] O2 Sat by Pulse 99 99 Oximetry Constitutional: no acute distress, alert, other (Still having some wheezing.) Eyes: non-icteric ENT: oropharynx moist Neck: supple, no lymphadenopathy, no JVD Effort: normal Ascultation: Bilateral: wheezes, rhonchi Cardiovascular: regular rate and rhythm, other (S1,S2 no murmurs, gallops or rubs) Gastrointestinal: normoactive bowel sounds, soft, non-tender, tender (mid abdomen on deep palpation), non-distended Integumentary: normal Extremities: no cyanosis, no edema, pulses normal, no ischemia or petechiae Neurologic: normal mental status, non-focal exam, pupils equal and round, CN II- XII normal Psychiatric: mood appropriate, affect normal CBC and BMP: 12/01/16 04:36 12/01/16 04:36 Abnormal lab findings: Abnormal Labs 11/29/16 11/30/16 11/30/16 21:29 00:25 04:30 RBC 3.43 L Hgb Hct RDW 18.4 H Plt Count 111 L Lymph % (Auto) [place] % (Auto) 8.4 H Potassium Carbon Dioxide Glucose POC Glucose 294 H Calcium Albumin Phenytoin 1.4 L 11/30/16 11/30/16 11/30/16 04:30 06:23 16:14 RBC Hgb Hct RDW Plt Count Lymph % (Auto) [place] % (Auto) Potassium 5.2 H Carbon Dioxide 21 L Glucose 197 H POC Glucose 145 H 290 H Calcium Albumin 3.5 L Phenytoin 11/30/16 12/01/16 12/01/16 21:51 04:36 04:36 RBC 3.13 L Hgb 9.5 L Hct 29.3 L RDW 18.2 H Plt Count Lymph % (Auto) 43.6 H [place] % (Auto) 10.1 H Potassium Carbon Dioxide Glucose 104 H POC Glucose 217 H Calcium 8.1 L Albumin Phenytoin 12/01/16 12/01/16 12/01/16 04:36 16:07 21:35 RBC Hgb Hct RDW Plt Count Lymph % (Auto) [place] % (Auto) Potassium Carbon Dioxide Glucose POC Glucose 151 H 348 H Calcium Albumin Phenytoin 6.1 L 12/02/16 12/02/16 12/02/16 06:42 11:58 17:17 RBC Hgb Hct RDW Plt Count Lymph % (Auto) [place] % (Auto) Potassium Carbon Dioxide Glucose POC Glucose 179 H 51 L 236 H Calcium Albumin Phenytoin 12/02/16 12/03/16 12/03/16 21:07 00:17 00:21 RBC Hgb Hct RDW Plt Count Lymph % (Auto) [place] % (Auto) Potassium Carbon Dioxide Glucose POC Glucose 250 H 256 H 248 H Calcium Albumin Phenytoin 12/03/16 12/03/16 12/03/16 06:20 12:14 13:02 RBC Hgb Hct RDW Plt Count Lymph % (Auto) [place] % (Auto) Potassium Carbon Dioxide Glucose POC Glucose 195 H < 40 L 168 H Calcium Albumin Phenytoin 12/03/16 12/03/16 12/04/16 16:37 21:40 05:59 RBC Hgb Hct RDW Plt Count Lymph % (Auto) [place] % (Auto) Potassium Carbon Dioxide Glucose POC Glucose 147 H 275 H 230 H Calcium Albumin Phenytoin 12/04/16 12/04/16 12/05/16 11:17 21:11 06:13 RBC Hgb Hct RDW Plt Count Lymph % (Auto) [place] % (Auto) Potassium Carbon Dioxide Glucose POC Glucose 136 H 186 H 233 H Calcium Albumin Phenytoin Prior PFT's, [place] of legs: pending
--- NOTE | 2016-12-05 13:20 | Progress Note ---
Assessment and Plan This is a 61-year-old female with h/o COPD insulin-dependent diabetes seizure disorder pedal edema presented with increasing shortness of breath and wheezing for the last 3 days. She had similar admission in the past. Acute COPD exacerbation: - Continue antibiotic, cont corticosteroids (switch to by mouth today), inhaled bronchodilators and supplemental oxygen/pulmonary toileting Insulin-dependent diabetes: - Continue insulin Lantus and NovoLog SSI coverage. - hemoglobin A1c. 7.8 Seizure disorder: - Continue phenytoin 300 mg daily at bedtime. - Subtherapeutic phenytoin level on admission, now improved Bipolar disorder/schizophrenia: - Continue Seroquel 50 mg twice a day. - c/o depression this am, will consult psych for medication adjustment CHF with grade 1 diastolic dysfunction - Continue Lasix. - 2d echo was obtain on 07/2016 h/o HIV - Antiretrovirals resumed DVT prophylaxis - Lovenox 40 mg subcutaneous daily Subjective Date of service: 12/05/16 Principal diagnosis: Respiratory distress, acute exacerbation of asthma Interval history: Pt seen and examined She c/o SOB with moderate exertion but able to ambulate she c/o depression and states she is not sure that she will be ok at home by herself Objective - Exam Narrative Exam: General appearance: Present: no acute distress, mild distress, obese - EENT Eyes: Present: PERRL ENT: hearing intact, clear oral mucosa - Neck Neck: Present: supple, normal ROM - Respiratory Respiratory effort: normal Respiratory: bilateral: CTA, rhonchi, wheezing - Cardiovascular Heart rate: 80 Rhythm: regular Heart Sounds: Present: S1 & S2. Absent: rub, click - Extremities Extremities: pulses symmetrical, No edema Peripheral Pulses: within normal limits - Abdominal General gastrointestinal: Present: soft, non-tender, non-distended, normal bowel sounds Female genitourinary: Present: normal - Rectal Rectal Exam: deferred - Integumentary Integumentary: Present: clear, warm, dry - Musculoskeletal Musculoskeletal: gait normal, strength equal bilaterally - Psychiatric Psychiatric: appears depressed - Neurologic Neurologic: CNII-XII intact, moves all extremities - Constitutional Vitals: Vital Signs - 12hr 12/05/16 12/05/16 12/05/16 07:45 07:55 08:00 Temperature 98.9 F Pulse Rate [ 105 H Left] Pulse Rate [ 88 86 Posterior Bilateral Throughout] Respiratory 20 Rate Respiratory 18 18 Rate [Posterior Bilateral Throughout] Blood Pressure 111/75 [Right Arm] O2 Sat by Pulse 99 Oximetry 12/05/16 08:56 Temperature Pulse Rate [ Left] Pulse Rate [ Posterior Bilateral Throughout] Respiratory Rate Respiratory Rate [Posterior Bilateral Throughout] Blood Pressure [Right Arm] O2 Sat by Pulse 99 Oximetry - Labs CBC & Chem 7: 12/01/16 04:36 12/01/16 04:36 Labs: Abnormal lab results 12/04/16 12/05/16 12/05/16 Range/Units 21:11 06:13 12:08 POC Glucose 186 H 233 H 125 H (70-105)
[2016-12-05] MEDS: ZITHROMAX PO SCH (13:33)
[2016-12-05] MEDS: SINGULAIR PO SCH (21:31)
[2016-12-05] MEDS: DILANTIN PO SCH (21:31)
[2016-12-05] MEDS: AMBIEN PO PRN (22:09)
[2016-12-05] MEDS: LEVEMIR SUB-Q SCH (23:46)
[2016-12-06] MEDS: DUONEB 0.5 MG-3 MG/3 ML SOLN IH SCH ×4 (01:47→20:38)
[2016-12-06] MEDS: NOVOLOG SUB-Q SCH ×5 (07:36→23:00)
[2016-12-06] MEDS: ZOFRAN IV PRN (08:14)
[2016-12-06] MEDS: DILAUDID IV PRN (08:14)
[2016-12-06] MEDS: BROVANA NEBU IH SCH ×2 (09:03→21:57)
[2016-12-06] MEDS: LOVENOX SUB-Q SCH (09:42)
[2016-12-06] MEDS: EMTRIVA PO SCH (09:43)
[2016-12-06] MEDS: ZITHROMAX PO SCH (09:43)
[2016-12-06] MEDS: DELTASONE PO SCH (09:43)
[2016-12-06] MEDS: VIREAD PO SCH (09:43)
[2016-12-06] MEDS: ISENTRESS PO SCH ×2 (09:43→23:00)
[2016-12-06] MEDS: LASIX PO SCH (09:43)
[2016-12-06] MEDS: PEPCID PO SCH ×2 (09:43→23:00)
[2016-12-06] MEDS: LEVAQUIN PO SCH (09:43)
--- NOTE | 2016-12-06 09:58 | Discharge Summary ---
Providers - Providers Date of Admission: 11/29/16 20:25 Date of discharge: 12/06/16 Attending physician: ISABEL MUNGUIA 11/29/16 20:27 Consult to Physician [CONS] Routine Consulting Provider: RONI GATES Reason For Exam: copd [facility] Place consult to:: dr. abbott Notified:: answering Phone number called:: Was contact made?: Yes If yes, spoke with:: dr. abbott Time called:: 08:16 11/30/16 15:29 Midline [Consult to PICC Line RN] [CONS] Routine Reason For Exam: Antibiotic Type Line:: Midline 12/05/16 10:05 Consult to Physician [CONS] Routine Consulting Provider: MEREDITH MIRZA Reason For Exam: depression Place consult to:: mental health Notified:: CALLIE Phone number called:: [phone] Was contact made?: Yes If yes, spoke with:: CALLIE Time called:: 10:24 Primary care physician: CH[employer]PERATOR [employer] Hospitalization Condition: Stable Disposition: STILL A PATIENT Exam - Constitutional Vitals: Temp Pulse Resp BP Pulse Ox 98.0 F 95 H 18 102/66 95 12/05/16 23:31 12/06/16 09:15 12/06/16 09:15 12/05/16 23:31 12/05/16 23:31 Plan Follow up with: PRIMARY CARE, [Primary Care Provider] - 7 Days Prescriptions: predniSONE [Deltasone] 40 mg PO QDAY 7 Days
[2016-12-06] MEDS: CULTURELLE PO SCH (10:00)
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
--- NOTE | 2016-12-06 15:34 | Progress Note ---
Assessment and Plan - Patient Problems (1) Acute exacerbation of chronic obstructive pulmonary disease (COPD) Current Visit: Yes Status: Acute (2) Acute bronchitis Current Visit: Yes Status: Acute Qualifiers: Bronchitis organism: B (3) Abdominal pain Current Visit: Yes Status: Acute Qualifiers: Abdominal location: A (4) HIV (human immunodeficiency virus infection) Current Visit: Yes Status: Acute (5) Morbid obesity with BMI of 45.0-49.9, adult Current Visit: Yes Status: Acute Subjective Date of service: 12/06/16 Principal diagnosis: Respiratory distress, acute exacerbation of asthma Objective Vital Signs - 12hr 12/06/16 12/06/16 12/06/16 08:50 09:03 09:15 Temperature 98.3 F Pulse Rate [ 98 H 95 H Anterior Bilateral Throughout] Pulse Rate [ 82 Left] Pulse Rate [ 98 H 95 H Posterior Bilateral Throughout] Respiratory 20 Rate Respiratory 18 18 Rate [Anterior Bilateral Throughout] Respiratory 18 18 Rate [Posterior Bilateral Throughout] Blood Pressure 128/84 [Right Arm] O2 Sat by Pulse 98 Oximetry 12/06/16 12/06/16 12/06/16 13:00 14:15 14:23 Temperature Pulse Rate [ 89 Anterior Bilateral Throughout] Pulse Rate [ Left] Pulse Rate [ 89 93 H Posterior Bilateral Throughout] Respiratory Rate Respiratory 18 Rate [Anterior Bilateral Throughout] Respiratory 18 18 Rate [Posterior Bilateral Throughout] Blood Pressure [Right Arm] O2 Sat by Pulse 100 Oximetry Constitutional: no acute distress, alert, other (Still having some wheezing.) Eyes: non-icteric ENT: oropharynx moist Neck: supple, no lymphadenopathy, no JVD Effort: normal Ascultation: Bilateral: wheezes, rhonchi Cardiovascular: regular rate and rhythm, other (S1,S2 no murmurs, gallops or rubs) Gastrointestinal: normoactive bowel sounds, soft, non-tender, tender (mid abdomen on deep palpation), non-distended Integumentary: normal Extremities: no cyanosis, no edema, pulses normal, no ischemia or petechiae Neurologic: normal mental status, non-focal exam, pupils equal and round, CN II- XII normal Psychiatric: mood appropriate, affect normal CBC and BMP: 12/01/16 04:36 12/01/16 04:36 Abnormal lab findings: Abnormal Labs 11/29/16 11/30/16 11/30/16 21:29 00:25 04:30 RBC 3.43 L Hgb Hct RDW 18.4 H Plt Count 111 L Lymph % (Auto) [place] % (Auto) 8.4 H Potassium Carbon Dioxide Glucose POC Glucose 294 H Calcium Albumin Phenytoin 1.4 L 11/30/16 11/30/16 11/30/16 04:30 06:23 16:14 RBC Hgb Hct RDW Plt Count Lymph % (Auto) [place] % (Auto) Potassium 5.2 H Carbon Dioxide 21 L Glucose 197 H POC Glucose 145 H 290 H Calcium Albumin 3.5 L Phenytoin 11/30/16 12/01/16 12/01/16 21:51 04:36 04:36 RBC 3.13 L Hgb 9.5 L Hct 29.3 L RDW 18.2 H Plt Count Lymph % (Auto) 43.6 H [place] % (Auto) 10.1 H Potassium Carbon Dioxide Glucose 104 H POC Glucose 217 H Calcium 8.1 L Albumin Phenytoin 12/01/16 12/01/16 12/01/16 04:36 16:07 21:35 RBC Hgb Hct RDW Plt Count Lymph % (Auto) [place] % (Auto) Potassium Carbon Dioxide Glucose POC Glucose 151 H 348 H Calcium Albumin Phenytoin 6.1 L 12/02/16 12/02/16 12/02/16 06:42 11:58 17:17 RBC Hgb Hct RDW Plt Count Lymph % (Auto) [place] % (Auto) Potassium Carbon Dioxide Glucose POC Glucose 179 H 51 L 236 H Calcium Albumin Phenytoin 12/02/16 12/03/16 12/03/16 21:07 00:17 00:21 RBC Hgb Hct RDW Plt Count Lymph % (Auto) [place] % (Auto) Potassium Carbon Dioxide Glucose POC Glucose 250 H 256 H 248 H Calcium Albumin Phenytoin 12/03/16 12/03/16 12/03/16 06:20 12:14 13:02 RBC Hgb Hct RDW Plt Count Lymph % (Auto) [place] % (Auto) Potassium Carbon Dioxide Glucose POC Glucose 195 H < 40 L 168 H Calcium Albumin Phenytoin 12/03/16 12/03/16 12/04/16 16:37 21:40 05:59 RBC Hgb Hct RDW Plt Count Lymph % (Auto) [place] % (Auto) Potassium Carbon Dioxide Glucose POC Glucose 147 H 275 H 230 H Calcium Albumin Phenytoin 12/04/16 12/04/16 12/05/16 11:17 21:11 06:13 RBC Hgb Hct RDW Plt Count Lymph % (Auto) [place] % (Auto) Potassium Carbon Dioxide Glucose POC Glucose 136 H 186 H 233 H Calcium Albumin Phenytoin 12/05/16 12/05/16 12/06/16 12:08 17:21 05:56 RBC Hgb Hct RDW Plt Count Lymph % (Auto) [place] % (Auto) Potassium Carbon Dioxide Glucose POC Glucose 125 H 237 H 142 H Calcium Albumin Phenytoin 12/06/16 11:32 RBC Hgb Hct RDW Plt Count Lymph % (Auto) [place] % (Auto) Potassium Carbon Dioxide Glucose POC Glucose 124 H Calcium Albumin Phenytoin
--- NOTE | 2016-12-06 16:14 | Progress Note ---
Assessment and Plan This is a 61-year-old female with h/o COPD insulin-dependent diabetes seizure disorder pedal edema presented with increasing shortness of breath and wheezing for the last 3 days. She had similar admission in the past. Acute COPD exacerbation: - Continue antibiotic, cont corticosteroids (switch to by mouth today), inhaled bronchodilators and supplemental oxygen/pulmonary toileting Insulin-dependent diabetes: - Continue insulin Lantus and NovoLog SSI coverage. - hemoglobin A1c. 7.8 Seizure disorder: - Continue phenytoin 300 mg daily at bedtime. - Subtherapeutic phenytoin level on admission, now improved Bipolar disorder/schizophrenia: - c/o SI, psych recommended 1013 and inpt psych placement -seroquel increased to 150mg at bedtime CHF with grade 1 diastolic dysfunction - Continue Lasix. - 2d echo was obtain on 07/2016 h/o HIV - Antiretrovirals resumed DVT prophylaxis - Lovenox 40 mg subcutaneous daily Subjective Principal diagnosis: Respiratory distress, acute exacerbation of asthma Interval history: Pt seen and examined She c/o SOB with moderate exertion but able to ambulate she c/o depression and states she is not sure that she will be ok at home by herself Placed on 1013 per psych for possible suicidal ideation Objective - Exam Narrative Exam: General appearance: Present: no acute distress, mild distress, obese - EENT Eyes: Present: PERRL ENT: hearing intact, clear oral mucosa - Neck Neck: Present: supple, normal ROM - Respiratory Respiratory effort: normal Respiratory: bilateral: CTA, rhonchi, wheezing - Cardiovascular Heart rate: 80 Rhythm: regular Heart Sounds: Present: S1 & S2. Absent: rub, click - Extremities Extremities: pulses symmetrical, No edema Peripheral Pulses: within normal limits - Abdominal General gastrointestinal: Present: soft, non-tender, non-distended, normal bowel sounds Female genitourinary: Present: normal - Rectal Rectal Exam: deferred - Integumentary Integumentary: Present: clear, warm, dry - Musculoskeletal Musculoskeletal: gait normal, strength equal bilaterally - Psychiatric Psychiatric: appears depressed - Neurologic Neurologic: CNII-XII intact, moves all extremities - Constitutional Vitals: Vital Signs - 12hr 12/06/16 12/06/16 12/06/16 08:50 09:03 09:15 Temperature 98.3 F Pulse Rate [ 98 H 95 H Anterior Bilateral Throughout] Pulse Rate [ 82 Left] Pulse Rate [ 98 H 95 H Posterior Bilateral Throughout] Respiratory 20 Rate Respiratory 18 18 Rate [Anterior Bilateral Throughout] Respiratory 18 18 Rate [Posterior Bilateral Throughout] Blood Pressure 128/84 [Right Arm] O2 Sat by Pulse 98 Oximetry 12/06/16 12/06/16 12/06/16 13:00 14:15 14:23 Temperature Pulse Rate [ 89 Anterior Bilateral Throughout] Pulse Rate [ Left] Pulse Rate [ 89 93 H Posterior Bilateral Throughout] Respiratory Rate Respiratory 18 Rate [Anterior Bilateral Throughout] Respiratory 18 18 Rate [Posterior Bilateral Throughout] Blood Pressure [Right Arm] O2 Sat by Pulse 100 Oximetry - Labs CBC & Chem 7: 12/01/16 04:36 12/01/16 04:36 Labs: Abnormal lab results 12/05/16 12/06/16 12/06/16 Range/Units 17:21 05:56 11:32 POC Glucose 237 H 142 H 124 H (70-105)
[2016-12-06] MEDS ORDERED: SEROquel 50 MG, SEROquel 100 MG PO SCH (22:00)
[2016-12-06] MEDS: DILANTIN PO SCH (23:00)
[2016-12-06] MEDS: SINGULAIR PO SCH (23:00)
[2016-12-06] MEDS: LEVEMIR SUB-Q SCH (23:00)
[2016-12-07] MEDS: DUONEB 0.5 MG-3 MG/3 ML SOLN IH SCH ×4 (02:36→21:06)
[2016-12-07 07:56] LABS: Basophils % (Auto) 0.5 % (0.0-1.8); Hematocrit 30.3 % (30.3-42.9); Hemoglobin 9.6 gm/dl (10.1-14.3); Mean Corpuscular HGB Conc 32 % (30-34); Mean Corpuscular Hemoglobin 30 pg (28-32); Mean Corpuscular Volume 95 fl (79-97); Platelet Count 198 K/mm3 (140-440); Red Cell Distribution Width 18.3 % (13.2-15.2); White Blood Count 6.1 K/mm3 (4.5-11.0)
[2016-12-07 08:02] LABS: Anion Gap 16 mmol/L; Blood Urea Nitrogen 14 mg/dL (7-17); Calcium 8.2 mg/dL (8.4-10.2); Carbon Dioxide 24 mmol/L (22-30); Chloride 105.5 mmol/L (98-107); Glucose 79 mg/dL (65-100); Sodium 141 mmol/L (137-145)
[2016-12-07] MEDS: NOVOLOG SUB-Q SCH ×5 (08:17→22:37)
[2016-12-07] MEDS: BROVANA NEBU IH SCH ×2 (09:35→21:06)
--- NOTE | 2016-12-07 10:26 | Discharge Summary ---
Providers - Providers Date of Admission: 11/29/16 20:25 Date of discharge: 12/10/16 Attending physician: CLAUS GILLETTE 11/29/16 20:27 Consult to Physician [CONS] Routine Consulting Provider: RONI GATES Reason For Exam: copd [facility] Place consult to:: dr. abbott Notified:: answering Phone number called:: Was contact made?: Yes If yes, spoke with:: dr. abbott Time called:: 08:16 11/30/16 15:29 Midline [Consult to PICC Line RN] [CONS] Routine Reason For Exam: Antibiotic Type Line:: Midline 12/05/16 10:05 Consult to Physician [CONS] Routine Consulting Provider: MEREDITH MIRZA Reason For Exam: depression Place consult to:: mental health Notified:: CALLIE Phone number called:: [phone] Was contact made?: Yes If yes, spoke with:: CALLIE Time called:: 10:24 12/06/16 16:04 Consult to Case Management [CONS] Routine Services Needed at Discharge: Other Notified:: COPY LEFT FOR CM Comment:: inpt psych placement Primary care physician: DIRECTOR CHILD Hospitalization Condition: Stable Disposition: DC/TX PSY HOSP/PSY UNIT Time spent for discharge: 35 minutes Exam - Physical Exam Narrative exam: General appearance: Present: no acute distress, mild distress, obese - EENT Eyes: Present: PERRL ENT: hearing intact, clear oral mucosa - Neck Neck: Present: supple, normal ROM - Respiratory Respiratory effort: normal Respiratory: bilateral: CTA, rhonchi, wheezing - Cardiovascular Heart rate: 80 Rhythm: regular Heart Sounds: Present: S1 & S2. Absent: rub, click - Extremities Extremities: pulses symmetrical, No edema Peripheral Pulses: within normal limits - Abdominal General gastrointestinal: Present: soft, non-tender, non-distended, normal bowel sounds Female genitourinary: Present: normal - Rectal Rectal Exam: deferred - Integumentary Integumentary: Present: clear, warm, dry - Musculoskeletal Musculoskeletal: gait normal, strength equal bilaterally - Psychiatric Psychiatric: appears depressed - Neurologic Neurologic: CNII-XII intact, moves all extremities - Constitutional Vitals: Temp Pulse Resp BP Pulse Ox 97.7 F 97 H 18 114/68 100 12/07/16 08:20 12/07/16 09:53 12/07/16 09:53 12/07/16 08:20 12/07/16 09:55 Plan Activity: advance as tolerated Weight Bearing Status: Non-Weight Bearing Diet: low cholesterol, low salt Follow up with: PRIMARY CARE, [Primary Care Provider] - 7 Days Prescriptions: QUEtiapine [SEROquel] 200 mg PO QHS #30 tablet predniSONE [Deltasone] 40 mg PO QDAY 7 Days
[2016-12-07] MEDS: DELTASONE PO SCH (10:43)
[2016-12-07] MEDS: PEPCID PO SCH ×2 (10:44→22:55)
[2016-12-07] MEDS: LOVENOX SUB-Q SCH (10:44)
[2016-12-07] MEDS: ZITHROMAX PO SCH (10:44)
[2016-12-07] MEDS: LEVAQUIN PO SCH (10:44)
[2016-12-07] MEDS: CULTURELLE PO SCH (10:44)
[2016-12-07] MEDS: LASIX PO SCH (10:44)
[2016-12-07] MEDS: VIREAD PO SCH (10:45)
[2016-12-07] MEDS: EMTRIVA PO SCH (10:45)
[2016-12-07] MEDS: ISENTRESS PO SCH ×2 (10:45→22:58)
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
--- NOTE | 2016-12-07 22:15 | Progress Note ---
Assessment and Plan This is a 61-year-old female with h/o COPD insulin-dependent diabetes seizure disorder pedal edema presented with increasing shortness of breath and wheezing for the last 3 days. She had similar admission in the past. Acute COPD exacerbation: - Continue antibiotic, cont corticosteroids (switched to by mouth today), inhaled bronchodilators and supplemental oxygen/pulmonary toileting Insulin-dependent diabetes: - Continue insulin Lantus and NovoLog SSI coverage. - hemoglobin A1c. 7.8 Seizure disorder: - Continue phenytoin 300 mg daily at bedtime. - Subtherapeutic phenytoin level on admission, now improved Bipolar disorder with depression: - c/o SI, psych recommended 1013 and inpt psych placement -seroquel increased to 200mg at bedtime CHF with grade 1 diastolic dysfunction - Continue Lasix. - 2d echo was obtain on 07/2016 h/o HIV - Antiretrovirals resumed DVT prophylaxis - Lovenox 40 mg subcutaneous daily Subjective Principal diagnosis: Respiratory distress, acute exacerbation of asthma Interval history: Pt seen and examined She c/o SOB with moderate exertion but able to ambulate she c/o depression and states she is not sure that she will be ok at home by herself Placed on 1013 per psych for suicidal ideation, plan to d/c inpt psych Objective - Exam Narrative Exam: General appearance: Present: no acute distress, mild distress, obese - EENT Eyes: Present: PERRL ENT: hearing intact, clear oral mucosa - Neck Neck: Present: supple, normal ROM - Respiratory Respiratory effort: normal Respiratory: bilateral: CTA, rhonchi, wheezing - Cardiovascular Heart rate: 80 Rhythm: regular Heart Sounds: Present: S1 & S2. Absent: rub, click - Extremities Extremities: pulses symmetrical, No edema Peripheral Pulses: within normal limits - Abdominal General gastrointestinal: Present: soft, non-tender, non-distended, normal bowel sounds Female genitourinary: Present: normal - Rectal Rectal Exam: deferred - Integumentary Integumentary: Present: clear, warm, dry - Musculoskeletal Musculoskeletal: gait normal, strength equal bilaterally - Psychiatric Psychiatric: appears depressed - Neurologic Neurologic: CNII-XII intact, moves all extremities - Constitutional Vitals: Vital Signs - 12hr 12/07/16 12/07/16 12/07/16 14:47 15:00 16:56 Temperature 97.8 F Pulse Rate [ 100 H 98 H Anterior Bilateral Throughout] Pulse Rate [ 93 H Left] Pulse Rate [ 100 H 98 H Posterior Bilateral Throughout] Respiratory 16 Rate Respiratory 18 18 Rate [Anterior Bilateral Throughout] Respiratory 18 18 Rate [Posterior Bilateral Throughout] Blood Pressure 120/68 [Right Arm] O2 Sat by Pulse 100 Oximetry - Labs CBC & Chem 7: 12/07/16 07:28 12/07/16 07:28 Labs: Abnormal lab results 12/07/16 12/07/16 12/07/16 Range/Units 07:28 07:28 11:09 RBC 3.20 L (3.65-5.03) M/mm3 Hgb 9.6 L (10.1-14.3) gm/dl RDW 18.3 H (13.2-15.2) % Lymph % (Auto) 47.1 H (13.4-35.0) % [place] % (Auto) 8.0 H (0.0-7.3) % POC Glucose 125 H (70-105) Calcium 8.2 L (8.4-10.2) mg/dL 12/07/16 Range/Units 16:23 RBC (3.65-5.03) M/mm3 Hgb (10.1-14.3) gm/dl RDW (13.2-15.2) % Lymph % (Auto) (13.4-35.0) % [place] % (Auto) (0.0-7.3) % POC Glucose 276 H (70-105) Calcium (8.4-10.2) mg/dL
[2016-12-07] MEDS: SINGULAIR PO SCH (22:46)
[2016-12-07] MEDS: DILANTIN PO SCH (22:55)
[2016-12-07] MEDS: LEVEMIR SUB-Q SCH (22:58)
[2016-12-07] MEDS: AMBIEN PO PRN (23:53)
[2016-12-08] MEDS: DUONEB 0.5 MG-3 MG/3 ML SOLN IH SCH ×4 (03:08→20:12)
[2016-12-08] MEDS: NOVOLOG SUB-Q SCH ×4 (07:30→22:19)
[2016-12-08] MEDS: BROVANA NEBU IH SCH ×2 (08:00→20:12)
--- NOTE | 2016-12-08 08:32 | Progress Note ---
Subjective - Reason for Consult Consult date: 12/08/16 Reason for consult: Psychiatry Follow-up - Chief Complaint Chief complaint: I feel a little better todayr" 61 year old black female seen for psychiatric evaluation on the medical floor for complaints of depression. She was initially admitted for difficulty breathing. Today patient presents calm, cooperative with linear thought process. Yesterday patient's thought process with circumstantial. She still feel depressed with symptoms of being hopeless and feeling sad. She stated that she still feel a "A little suicidal" with no plan. She rate her depression 7/10 , with 10 being the worse. She denies HI's and AVH's at this time. She denies any sleeping issues and her appetite is "good." Her biggest concern is coping with the her family members, especially her mom. She stated yesterday that she did cross word puzzles to clear her mind. She stated that she do not have any family, because of her mental illness. Mental Status Exam - Vital signs Last Vital Signs Temp 99.3 F 12/08/16 07:00 Pulse 92 H 12/08/16 08:10 Resp 18 12/08/16 08:10 BP 91/55 12/08/16 07:00 Pulse Ox 100 12/08/16 08:08 - Exam Narrative exam: MSE: Appearance: cooperative Behavior: good eye contact Speech: regular rate and tone Mood: "I feel a little better" Affect: congruent to mood Thought Process: linear Thought Content: Denies HI's, "I maybe a little suicidal" Cognition: A/O x3 on Motor Activity: lying in bed Insight: fair Judgement: poor Assessment and Plan Impression: 61 year old black female seen for psychiatric evaluation on the medical floor for complaints of depression. She was initially admitted for difficulty breathing. Today patient presents calm, cooperative with linear thought process. Yesterday patient's thought process with circumstantial. She still feel depressed with symptoms of being hopeless and feeling sad. She stated that she still feel a "A little suicidal" with no plan. She rate her depression 7/10, with 10 being the worse. She denies HI's and AVH's at this time. Patient on continuous O2. Recommendation/Plan: Continue 1013 for SI's. Continue Seroquel at 200 mg PO for mood/psychosis. Discussed metabolic side effects with patient reference seroquel. Discussed generalized coping skills with patient.
[2016-12-08] MEDS: ISENTRESS PO SCH ×2 (09:04→22:45)
[2016-12-08] MEDS: DELTASONE PO SCH (09:04)
[2016-12-08] MEDS: PEPCID PO SCH ×2 (09:04→22:19)
[2016-12-08] MEDS: LEVAQUIN PO SCH (09:04)
[2016-12-08] MEDS: ZITHROMAX PO SCH (09:04)
[2016-12-08] MEDS: EMTRIVA PO SCH (09:04)
[2016-12-08] MEDS: LOVENOX SUB-Q SCH (09:04)
[2016-12-08] MEDS: CULTURELLE PO SCH (09:05)
[2016-12-08] MEDS: VIREAD PO SCH (09:05)
[2016-12-08] MEDS: LASIX PO SCH (11:29)
--- NOTE | 2016-12-08 14:32 | Progress Note ---
Assessment and Plan This is a 61-year-old female with h/o COPD insulin-dependent diabetes seizure disorder pedal edema presented with increasing shortness of breath and wheezing for the last 3 days. She had similar admission in the past. Acute COPD exacerbation: - Continue antibiotic, cont corticosteroids (switched to by mouth today), inhaled bronchodilators and supplemental oxygen/pulmonary toileting Insulin-dependent diabetes: - Continue insulin Lantus and NovoLog SSI coverage. - hemoglobin A1c. 7.8 Seizure disorder: - Continue phenytoin 300 mg daily at bedtime. - Subtherapeutic phenytoin level on admission, now improved Bipolar disorder with depression: - c/o SI, psych recommended 1013 and inpt psych placement -seroquel increased to 200mg at bedtime CHF with grade 1 diastolic dysfunction - Continue Lasix. - 2d echo was obtain on 07/2016 h/o HIV - Antiretrovirals resumed DVT prophylaxis - Lovenox 40 mg subcutaneous daily disposition: inpt psych but no more psych days left, CM working on placement. Subjective Date of service: 12/08/16 Principal diagnosis: Respiratory distress, acute exacerbation of asthma Interval history: Pt seen and examined She c/o SOB with moderate exertion but able to ambulate she c/o depression but states that she has no plan for suicide Placed on 1013 per psych for suicidal ideation, plan to d/c inpt psych but she used up all her inpt psych days. Objective - Exam Narrative Exam: General appearance: Present: no acute distress, mild distress, obese - EENT Eyes: Present: PERRL ENT: hearing intact, clear oral mucosa - Neck Neck: Present: supple, normal ROM - Respiratory Respiratory effort: normal Respiratory: bilateral: CTA, rhonchi, wheezing - Cardiovascular Heart rate: 80 Rhythm: regular Heart Sounds: Present: S1 & S2. Absent: rub, click - Extremities Extremities: pulses symmetrical, No edema Peripheral Pulses: within normal limits - Abdominal General gastrointestinal: Present: soft, non-tender, non-distended, normal bowel sounds Female genitourinary: Present: normal - Rectal Rectal Exam: deferred - Integumentary Integumentary: Present: clear, warm, dry - Musculoskeletal Musculoskeletal: gait normal, strength equal bilaterally - Psychiatric Psychiatric: appears depressed - Neurologic Neurologic: CNII-XII intact, moves all extremities - Constitutional Vitals: Vital Signs - 12hr 04/12/08/16 12/08/16 07:00 07:30 08:00 Temperature 99.3 F 98.1 F Pulse Rate [ 92 H Anterior Bilateral Throughout] Pulse Rate [ 103 H Left] Pulse Rate [ 89 Right Radial] Respiratory 20 16 Rate Respiratory 18 Rate [Anterior Bilateral Throughout] Blood Pressure 91/55 [Left Arm] Blood Pressure 98/58 [Right Arm] O2 Sat by Pulse 103 H 100 Oximetry 12/08/16 12/08/16 12/08/16 08:08 08:10 11:25 Temperature Pulse Rate [ 92 H Anterior Bilateral Throughout] Pulse Rate [ Left] Pulse Rate [ Right Radial] Respiratory Rate Respiratory 18 Rate [Anterior Bilateral Throughout] Blood Pressure [Left Arm] Blood Pressure 121/67 [Right Arm] O2 Sat by Pulse 100 Oximetry - Labs CBC & Chem 7: 12/07/16 07:28 12/07/16 07:28 Labs: Abnormal lab results 12/07/16 12/07/16 12/07/16 Range/Units 11:09 16:23 22:22 POC Glucose 125 H 276 H 68 L (70-105) 12/08/16 12/08/16 Range/Units 06:25 11:50 POC Glucose 59 L 129 H (70-105)
[2016-12-08] MEDS: SINGULAIR PO SCH (22:45)
[2016-12-08] MEDS: DILANTIN PO SCH (22:45)
[2016-12-08] MEDS: AMBIEN PO PRN (22:45)
[2016-12-08] MEDS: LEVEMIR SUB-Q SCH (22:46)
[2016-12-09] MEDS: DUONEB 0.5 MG-3 MG/3 ML SOLN IH SCH ×4 (02:08→20:17)
[2016-12-09] MEDS: BROVANA NEBU IH SCH ×2 (07:50→20:16)
[2016-12-09] MEDS: NOVOLOG SUB-Q SCH ×4 (08:00→22:15)
[2016-12-09] MEDS: LASIX PO SCH (09:33)
[2016-12-09] MEDS: ZITHROMAX PO SCH (09:34)
[2016-12-09] MEDS: PEPCID PO SCH ×2 (09:34→21:48)
[2016-12-09] MEDS: ISENTRESS PO SCH ×2 (09:34→21:47)
[2016-12-09] MEDS: DELTASONE PO SCH (09:34)
[2016-12-09] MEDS: VIREAD PO SCH (09:35)
[2016-12-09] MEDS: EMTRIVA PO SCH (09:35)
[2016-12-09] MEDS: CULTURELLE PO SCH (09:35)
[2016-12-09] MEDS: LOVENOX SUB-Q SCH (09:36)
[2016-12-09] MEDS: LEVAQUIN PO SCH (09:36)
--- NOTE | 2016-12-09 12:58 | Progress Note ---
Subjective - Reason for Consult Consult date: 12/09/16 Reason for consult: psychiatric follow-up - Chief Complaint Chief complaint: "I'm ok today" 61 year old black female seen for psychiatric evaluation on the medical floor for complaints of depression. She was initially admitted for difficulty breathing. Today patient presents calm, cooperative with linear thought process. Her biggest concern is coping with the her family members, her child and her mom. She is aware that she needs further psychiatric treatment. She often looks at the door during the interview. She expressed concerns that she does not trust people. She denies medication side effects and is compliant with the Seroquel.. Mental Status Exam - Vital signs Last Vital Signs Temp 98.2 F 12/09/16 07:25 Pulse 82 12/09/16 08:00 Resp 20 12/09/16 08:00 BP 107/69 12/09/16 07:25 Pulse Ox 100 12/09/16 09:54 - Exam Orientation: time, place, person Affect: depressed, anxious Mood: congruent with affect Thought content: paranoia (looking out the door of her room often ) Thought Process: Intact Perceptions: none Speech: normal rate and pattern Concentration: distractible Motor activity: normal Level of consciousness: alert Memory: Intact Sleep Symptoms: None Interaction: cooperative Assessment and Plan Impression: 61 year old black female seen for psychiatric evaluation on the medical floor for complaints of depression. She was initially admitted for difficulty breathing. Today patient presents calm, cooperative with linear thought process. Her biggest concern is coping with the her family members, her child and her mom. She is aware that she needs further psychiatric treatment. She often looks at the door during the interview. She expressed concerns that she does not trust people. She denies medication side effects and is compliant with the Seroquel. Recommendation/Plan: Continue 1013 for SI's. Continue Seroquel at 200 mg PO for mood/psychosis. Discussed generalized coping skills with patient. - Patient Problems (1) PTSD (post-traumatic stress disorder) Current Visit: Yes Status: Acute (2) Bipolar 1 disorder Current Visit: Yes Status: Acute
--- NOTE | 2016-12-09 15:44 | Progress Note ---
Assessment and Plan This is a 61-year-old female with h/o COPD insulin-dependent diabetes seizure disorder pedal edema presented with increasing shortness of breath and wheezing for the last 3 days before admission. She had similar admission in the past. Acute COPD exacerbation: - Continue antibiotic, cont corticosteroids (switched to by mouth today), inhaled bronchodilators and supplemental oxygen/pulmonary toileting Insulin-dependent diabetes: - Continue insulin Lantus and NovoLog SSI coverage. - hemoglobin A1c. 7.8 Seizure disorder: - Continue phenytoin 300 mg daily at bedtime. - Subtherapeutic phenytoin level on admission, now improved Bipolar disorder with depression: - psych following - seroquel increased to 200mg at bedtime CHF with grade 1 diastolic dysfunction - Continue Lasix. - 2d echo was obtain on 07/2016 h/o HIV - Antiretrovirals resumed DVT prophylaxis - Lovenox 40 mg subcutaneous daily disposition: inpt psych but no more psych days left, CM working on placement. Subjective Principal diagnosis: Respiratory distress, acute exacerbation of asthma Interval history: Pt seen and examined She c/o depression but states that she has no plan for suicide Placed on 1013 per psych for suicidal ideation, plan to d/c inpt psych but she used up all her inpt psych days. Objective - Exam Narrative Exam: General appearance: Present: no acute distress, mild distress, obese - EENT Eyes: Present: PERRL ENT: hearing intact, clear oral mucosa - Neck Neck: Present: supple, normal ROM - Respiratory Respiratory effort: normal Respiratory: bilateral: CTA, rhonchi, wheezing - Cardiovascular Heart rate: 80 Rhythm: regular Heart Sounds: Present: S1 & S2. Absent: rub, click - Extremities Extremities: pulses symmetrical, No edema Peripheral Pulses: within normal limits - Abdominal General gastrointestinal: Present: soft, non-tender, non-distended, normal bowel sounds Female genitourinary: Present: normal - Rectal Rectal Exam: deferred - Integumentary Integumentary: Present: clear, warm, dry - Musculoskeletal Musculoskeletal: gait normal, strength equal bilaterally - Psychiatric Psychiatric: appears depressed - Neurologic Neurologic: CNII-XII intact, moves all extremities - Constitutional Vitals: Vital Signs - 12hr 12/09/16 12/09/16 12/09/16 07:25 08:00 09:54 Temperature 98.2 F Pulse Rate [ 82 Anterior Bilateral Throughout] Pulse Rate [ 79 Left] Respiratory 18 Rate Respiratory 20 Rate [Anterior Bilateral Throughout] Blood Pressure 107/69 [Left Arm] O2 Sat by Pulse 100 100 Oximetry 12/09/16 13:48 Temperature Pulse Rate [ 102 H Anterior Bilateral Throughout] Pulse Rate [ Left] Respiratory Rate Respiratory 24 Rate [Anterior Bilateral Throughout] Blood Pressure [Left Arm] O2 Sat by Pulse Oximetry - Labs CBC & Chem 7: 12/07/16 07:28 12/07/16 07:28 Labs: Abnormal lab results 12/08/16 12/09/16 12/09/16 Range/Units 16:21 06:24 11:22 POC Glucose 160 H 65 L 148 H (70-105)
[2016-12-09] MEDS: DILANTIN PO SCH (21:46)
[2016-12-09] MEDS: SINGULAIR PO SCH (21:48)
[2016-12-09] MEDS: TYLENOL PO PRN (21:49)
[2016-12-09] MEDS: LEVEMIR SUB-Q SCH (21:50)
[2016-12-10] MEDS: DUONEB 0.5 MG-3 MG/3 ML SOLN IH SCH ×3 (03:03→15:19)
[2016-12-10] MEDS: BROVANA NEBU IH SCH (07:54)
[2016-12-10] MEDS: NOVOLOG SUB-Q SCH ×3 (08:50→17:24)
--- NOTE | 2016-12-10 09:18 | Progress Note ---
Subjective - Reason for Consult Consult date: 12/10/16 Reason for consult: Psychiatry Follow-up - Chief Complaint Chief complaint: "This is a good day" 61 year old black female seen for psychiatric evaluation on the medical floor for complaints of depression. She was initially admitted for difficulty breathing. Today patient presents calm, cooperative with linear thought process that is goal directed. She is concerned about her current living arrangements. She does not want to return because of the other occupants. She don't have any family and asked me for assistance. She denied being paranoid, but stated, "I have to work on my depression." She rate her depression 6/10 with 10 being the worse. Per the patient, her depression come from the of family members over the past 2 years. Per the clinical staff rn, patient has been completing her ADL's. When I arrived to her room, she was ordering her breakfast. She denies SI/HI's and AVH's and stated "no issues" with her sleep. She denies medication side effects from the Seroquel. Mental Status Exam - Vital signs Last Vital Signs Temp 97.7 F 12/10/16 08:00 Pulse 102 H 12/10/16 08:10 Resp 16 12/10/16 08:51 BP 118/66 12/10/16 08:00 Pulse Ox 100 12/10/16 08:00 - Exam Narrative exam: MSE: Appearance: calm, cooperative Behavior: good eye contact Speech: regular rate and tone Mood: "I have a good mood today" Affect: congruent to mood Thought Process: linear, goal directed Thought Content: denies SI/HI's and AVH's Cognition: A/O x3 on Motor Activity: sitting up in bed Insight: fair Judgement: fair Assessment and Plan Impression: 61 year old black female seen for psychiatric evaluation on the medical floor for complaints of depression. She was initially admitted for difficulty breathing. Today patient presents calm, cooperative with linear thought process that is goal directed. She is concerned about her current living arrangements. She does not want to return because of the other occupants. She don't have any family and asked me for assistance. She denied being paranoid, but stated, "I have to work on my depression." She denies SI/HI' s and AVH's. Patient is not a threat to self or anyone else. Patient is continuos O2. Recommendation/Plan: Rescind 1013. Continue Seroquel at 200 mg PO HS for mood. Discussed generalized coping skills with patient. [facility] involvement for placement. Provide patient with outpatient psy services (including medication management) information in her local area.
[2016-12-10] MEDS: PEPCID PO SCH (10:08)
[2016-12-10] MEDS: DELTASONE PO SCH (10:08)
[2016-12-10] MEDS: VIREAD PO SCH (10:08)
[2016-12-10] MEDS: CULTURELLE PO SCH (10:08)
[2016-12-10] MEDS: LOVENOX SUB-Q SCH (10:08)
[2016-12-10] MEDS: TYLENOL PO PRN (10:09)
[2016-12-10] MEDS: EMTRIVA PO SCH (10:09)
[2016-12-10] MEDS: ZITHROMAX PO SCH (10:09)
[2016-12-10] MEDS: LASIX PO SCH (10:09)
[2016-12-10] MEDS: LEVAQUIN PO SCH (10:09)
[2016-12-10] MEDS: ISENTRESS PO SCH (10:09)
[2016-12-10] MEDS ORDERED: TRIPLE ANTIBIOTIC TP ONE (12:25)
[2016-12-10 12:53] VITALS: BP 112/66
== END 2016-12-10 18:41 | disposition home or self-care (01) | DRG 189 ==
LOC: ED 12:38 → 3A 20:25
PROVIDERS: ADMIT Internal Medicine; ATTEND Internal Medicine
DX: J96.00 Acute respiratory failure, unspecified whether with hypoxia or hypercapnia (principal); B20 Human immunodeficiency virus [HIV] disease; J44.1 Chronic obstructive pulmonary disease with (acute) exacerbation; Z68.42 Body mass index [BMI] 45.0-49.9, adult; J45.901 Unspecified asthma with (acute) exacerbation; J44.0 Chronic obstructive pulmonary disease with (acute) lower respiratory infection; I50.32 Chronic diastolic (congestive) heart failure; I11.0 Hypertensive heart disease with heart failure; G40.909 Epilepsy, unspecified, not intractable, without status epilepticus; E11.9 Type 2 diabetes mellitus without complications; F20.9 Schizophrenia, unspecified; F31.9 Bipolar disorder, unspecified; E87.5 Hyperkalemia; E66.01 Morbid (severe) obesity due to excess calories; J20.9 Acute bronchitis, unspecified; F43.10 Post-traumatic stress disorder, unspecified; Z88.1 Allergy status to other antibiotic agents; Z88.6 Allergy status to analgesic agent; Z88.8 Allergy status to other drugs, medicaments and biological substances; Z79.4 Long term (current) use of insulin; Z90.710 Acquired absence of both cervix and uterus; Z91.14 Patient's other noncompliance with medication regimen; Z82.49 Family history of ischemic heart disease and other diseases of the circulatory system
CPT/HCPCS: 36415; 71020; 74178; 80048; 80053; 80074; 80185; 82550; 82553; 82962; 83036; 83690; 83880; 84484; 85025; 93005; 93010; 94640; 94760; A6250; J1170; J1650; J1815; J1818; J1956; J2405; J2920; J2930; J7512; Q0162; Q9967

== ENCOUNTER 2017-02-17 20:56 | Inpatient (IN) | payer MEDICARE ==
[2017-02-17] MEDS ORDERED: DUONEB 0.5 MG-3 MG/3 ML SOLN IH ONE (21:48)
[2017-02-17 22:31] LABS: Hematocrit 32.1 % (30.3-42.9); Hemoglobin 10.4 gm/dl (10.1-14.3); Mean Corpuscular HGB Conc 33 % (30-34); Mean Corpuscular Hemoglobin 31 pg (28-32); Mean Corpuscular Volume 94 fl (79-97); Platelet Count 196 K/mm3 (140-440); Red Blood Count 3.42 M/mm3 (3.65-5.03); White Blood Count 4.9 K/mm3 (4.5-11.0)
[2017-02-17 22:33] LABS: Red Cell Distribution Width 20.8 % (13.2-15.2)
[2017-02-17 22:50] LABS: Anion Gap 19 mmol/L; Blood Urea Nitrogen 16 mg/dL (7-17); Calcium 8.3 mg/dL (8.4-10.2); Carbon Dioxide 21 mmol/L (22-30); Chloride 102.5 mmol/L (98-107); Glucose 155 mg/dL (65-100); Potassium 3.7 mmol/L (3.6-5.0); Sodium 139 mmol/L (137-145)
[2017-02-17 23:18] LABS: Basophils % (Manual) 0 % (0.0-1.8); Blastocytes % (Manual) 0 %; Eosinophils % (Manual) 0 % (0.0-4.3)
[2017-02-17 23:19] LABS: Anisocytosis 1+; Diff Status Complete; Hypochromasia 1+; Ovalocytes 1+; Platelet Estimate Consistent w Auto
[2017-02-18] MEDS ORDERED: DUONEB 0.5 MG-3 MG/3 ML SOLN IH ONE ×3 (05:13→09:15)
[2017-02-18] MEDS ORDERED: MAGNESIUM SULFATE 2GM/50ML 2 GM/50 ML BAG IV ONE (06:54)
[2017-02-18] MEDS ORDERED: LASIX IV ONE (06:54)
--- NOTE | 2017-02-18 06:56 | Emergency Department Report ---
HPI - General Chief Complaint: Dyspnea/Respdistress Time Seen by Provider: 02/18/17 06:13 - HPI HPI: The patient is a 61-year-old female with a history of COPD and CHF, who presents for evaluation of dyspnea. The patient reports dyspnea for the past 2 days, progressive, constant, severe, exacerbated with exertion or lying flat, and improved with sitting up. The patient denies fever, trauma to the chest, chest pain, syncope, hemoptysis, unilateral leg swelling, recent immobilization , history of DVT or PE, recent cancer. ED Past Medical Hx - Past Medical History Previous Medical History?: Yes Hx Hypertension: Yes Hx Congestive Heart Failure: Yes Hx Diabetes: Yes Hx Deep Vein Thrombosis: No Hx Seizures: Yes Hx Psychiatric Treatment: Yes (bipolar disorder; schziphornia) Hx Asthma: Yes Hx COPD: Yes Hx HIV: Yes (CD4 count 344 2015) Additional medical history: HIV, CDIFF,spinal stenosis - Surgical History Past Surgical History?: Yes Hx Pacemaker: No Hx Internal Defibrillator: No Additional Surgical History: hysterectomy; rt arm skin graph - Social History Smoking Status: Never Smoker Substance Use Type: None - Medications Home Medications: Home Medications Medication Instructions Recorded Confirmed Last Taken Type Bacillus Coagulans [Probiotic] 1 each PO DAILY #30 capsule. 11/15/16 02/18/17 Unknown Rx Isentress 400 mg PO BID 12/01/16 02/18/17 Unknown History QUEtiapine [SEROquel] 200 mg PO QHS #30 tablet 12/10/16 02/18/17 Unknown Rx ALBUTEROL NEB's [Proventil 0.083% 2.5 mg IH Q3HRT PRN #7 nebu 01/25/17 02/18/17 Unknown Rx NEBS] Arformoterol Nebu [Brovana Nebu] 15 mcg IH Q12HRT #60 ml 01/25/17 02/18/17 Unknown Rx Furosemide [Lasix TAB] 20 mg PO DAILY #30 tablet 01/25/17 02/18/17 Unknown Rx Hydrocortisone 0.5% 1 applic TP Q8H PRN #1 tube 01/25/17 02/18/17 Unknown Rx [Hydrocortisone 0.5% CREAM] Phenytoin (25 mg/ml) [Dilantin] 300 mg PO QHS #30 oral.liqd 01/25/17 02/18/17 Unknown Rx QUEtiapine [SEROquel] 200 mg PO QHS #30 tablet 01/25/17 02/18/17 Unknown Rx Truvada 133 mg-200 mg Tablet 200 mg PO QHS 01/25/17 02/18/17 Unknown Rx Budesonide [Pulmicort Respules] 0.25 mg IH Q12HRT #7 nebu 02/08/17 02/18/17 Unknown Rx Fluconazole [Diflucan TAB] 200 mg PO QDAY #2 tablet 02/08/17 02/18/17 Unknown Rx Insulin Detemir [Levemir] 24 units SUB-Q QHS units 02/08/17 02/18/17 Unknown Rx Ipratropium/Albuterol Sulfate 1 ampul IH TIDRT #90 ampul.neb 02/08/17 02/18/17 Unknown Rx [Duoneb 0.5 mg-3 mg/3 ml Soln] Tenofovir [Viread] 300 mg PO QDAY tablet 02/08/17 02/18/17 Unknown Rx amLODIPine [Norvasc] 5 mg PO QDAY #30 tablet 02/08/17 02/18/17 Unknown Rx guaiFENesin/CODEINE [Robitussin AC] 15 ml PO Q4H PRN #10 oral.liqd 02/08/17 Unknown Rx oxyCODONE /ACETAMINOPHEN [Percocet 1 tab PO Q6H PRN #30 tablet 02/08/17 Unknown Rx 5/325 mg] Levofloxacin [Levaquin TAB] 750 mg PO QDAY #5 tablet 02/16/17 02/18/17 Unknown Rx predniSONE [Deltasone] 5 mg PO .TAPER #21 tab 02/16/17 02/18/17 Unknown Rx ED Review of Systems ROS: Stated complaint: CARL Other details as noted in HPI Constitutional: denies: fever ENT: denies: throat or neck pain Respiratory: reports shortness of breath Cardiovascular: denies: chest pain Endocrine: denies unexplained weight loss or gain Gastrointestinal: denies: abdominal pain, nausea Genitourinary: denies: dysuria Musculoskeletal: reports leg swelling Skin: denies: rash Neurological: denies: headache Hematological/Lymphatic: denies: easy bleeding or easy bruising Psych: denies sadness or hopelessness Physical Exam - Physical Exam Vital Signs: Vital Signs 02/17/17 02/18/17 02/18/17 21:40 01:06 01:51 Temperature 98.2 F 98.7 F Pulse Rate 113 H 110 H Pulse Rate [ Anterior Bilateral] Respiratory 20 20 Rate Respiratory Rate [Anterior Bilateral] Blood Pressure 145/98 134/92 O2 Sat by Pulse 96 100 96 Oximetry 02/18/17 02/18/17 02/18/17 02:00 05:27 05:38 Temperature Pulse Rate 103 H Pulse Rate [ 103 H 106 H Anterior Bilateral] Respiratory 13 Rate Respiratory 18 18 Rate [Anterior Bilateral] Blood Pressure 136/89 O2 Sat by Pulse 98 Oximetry Physical Exam: General: well-nourished, well-developed, no acute distress Head: Normocephalic, atraumatic Eyes: normal sclera ENT: Mucous membranes are pink and moist Neck: trachea midline, neck supple, No neck stiffness, no cervical adenopathy Respiratory: Diminished breath sounds and wheezing present throughout lung murcia, mild crepitus presents to basilar lung murcia Cardio: S1 and S2 present, no murmurs, rubs, gallops, capillary refill is brisk Abdomen: Normoactive bowel sounds, soft abdomen, no rigidity, no guarding or rebound tenderness Chest WALL/Back: No tenderness to palpation of the chest wall, no CVA tenderness with percussion Musc: 1+ pitting edema of the legs present Skin: No rash Neuro: no facial drooping, normal speech Psych: Normal affect ED Course Vital Signs 02/17/17 02/18/17 02/18/17 21:40 01:06 01:51 Temperature 98.2 F 98.7 F Pulse Rate 113 H 110 H Pulse Rate [ Anterior Bilateral] Respiratory 20 20 Rate Respiratory Rate [Anterior Bilateral] Blood Pressure 145/98 134/92 O2 Sat by Pulse 96 100 96 Oximetry 02/18/17 02/18/17 02/18/17 02:00 05:27 05:38 Temperature Pulse Rate 103 H Pulse Rate [ 103 H 106 H Anterior Bilateral] Respiratory 13 Rate Respiratory 18 18 Rate [Anterior Bilateral] Blood Pressure 136/89 O2 Sat by Pulse 98 Oximetry ED Medical Decision Making - Lab Data Result diagrams: 02/19/17 07:07 02/19/17 07:07 - Medical Decision Making The patient was seen and examined by myself. The patient is placed on a director of cardiac cath lab and continuous pulse ox. On initial evaluation, the patient was found to be in no distress. Evaluation orders were placed. The patient is given a breathing treatment, IV magnesium, and steroids for txt of COPD, and IV Lasix for treatment of CHF. Chest x-ray is grossly unrevealing. Lab results revealed elevated glucose level, consistent patient diabetes, and low PO2 of 71 on ABG, consistent with hypoxemia. The on-call hospitalist service was contacted. They agreed to admit the patient for further treatment and close monitoring. The ED admit order was placed. The patient was admitted in guarded condition. Critical care attestation.: If time is entered above; I have spent that time in minutes in the direct care of this critically ill patient, excluding procedure time. ED Disposition Clinical Impression: Acute exacerbation of chronic obstructive pulmonary disease (COPD), Acute hyperglycemia, Hypoxemia CHF (congestive heart failure) Qualifiers: Congestive heart failure type: systolic Congestive heart failure chronicity: acute on chronic Qualified Code(s): I50.23 - Acute on chronic systolic ( congestive) heart failure Disposition: OP ADMIT IP TO THIS HOSP Is pt being admited?: Yes Does the pt Need Aspirin: Yes Condition: Serious Time of Disposition: 06:55
--- NOTE | 2017-02-18 07:26 | Admit Criteria Form ---
Admission Criteria Documentation: COPD Clinical Indications for Admission to Inpatient Care (Place 'X' for any and all applicable criteria): Admission is indicated for ANY ONE of the following (1)(2)(3): [X ]I. Acute exacerbation by high-risk comorbidity (e.g., pneumonia, dysrhythmia, heart failure, pleural effusion, pneumothorax) or severe underlying COPD (e.g., steroid dependent) [ ]II. Inpatient admission required rather than observation care (see Chronic Obstructive Pulmonary Disease: Observation Care) because of ANY ONE of the following: [ ]a) New or pre-existing signs or symptoms of COPD (eg, dyspnea or Tachypnea at rest or with minimal activity) that persist despite outpatient and observation care treatment [ ]b) New-onset hypoxemia (room air SaO2 less than 90%, PO2 less than 60 mm Hg (8.0 kPa)) that persists despite outpatient and observation care treatment [ ]c) Worsening of pre-existing hypoxemia (eg, new or increased requirement for supplemental oxygen to maintain oxygenation at baseline level) that persists despite outpatient and observation care treatment, with oxygen treatment needs performable only in acute inpatient setting [ ]d) Hypercarbia (PCO2 greater than 40 mm Hg (5.3 kPa))-induced respiratory acidosis (pH less than 7.35) that persists despite outpatient and observation care treatment [ ]e) Supplemental oxygen or respiratory treatments for over 24 hours that are performable only in acute inpatient setting [ ]f) Chest tube placement with active evacuation (e.g., suction, drainage) (5) [ ]g) Other condition, treatment or monitoring requiring inpatient admission [ ]III. Planned invasive surgical or diagnostic procedures requiring acute- care hospitalization [ ]IV. Acute respiratory failure (e.g., uncompensated hypercarbia, severe hypoxemia) [ ]V. Severe comorbid condition (e.g., severe steroid myopathy, acute vertebral fracture) that has acutely worsened pulmonary function [ ]. Confusion state, lethargy, obtundation, stupor or coma Extended stay beyond goal length of stay may be needed for (31)(32): [ ]a ) Respiratory Failure. [ ]b) Severe or persisting hypoxemia or hypercarbia [ ]c) Severe or persistent dyspnea [ ]d) Comorbidities (e.g. chronic heart failure, atrial fibrillation with rapid response, pneumonia) [ ]e) Malnutrition The original [facility] content created by [facility] has been revised. The portions of the content which have been revised are identified through the use of italic text or in bold, and [facility] has neither reviewed nor approved the modified material. All other unmodified content is copyright [facility]. Please see references footnoted in the original [facility] edition 2016 Admission Criteria Met: Yes
--- NOTE | 2017-02-18 07:27 | XRay Report ---
ROUTINE CHEST, TWO VIEWS: HISTORY: Shortness of breath. The trachea, heart, mediastinal contour, lung murcia and bony thorax are unremarkable. IMPRESSION: No acute cardiopulmonary process. No significant change since 02/12/17.
[2017-02-18] MEDS ORDERED: TYLENOL ONE (09:04)
[2017-02-18] MEDS ORDERED: TYLENOL PO ONE (09:07)
[2017-02-18 09:33] LABS: ISTAT Base Excess 1; ISTAT DEVICE 0; ISTAT HCO3 25.2; ISTAT PCO2 38.7 (35-45); ISTAT PH 7.422 (7.35-7.45); ISTAT PO2 71 (80-105); ISTAT SO2 94; ISTAT TCO2 26
[2017-02-18] MEDS ORDERED: HYDROCORTISONE CR TP PRN (10:13)
[2017-02-18] MEDS ORDERED: D50W (25GM) IV PRN (10:16)
[2017-02-18] MEDS ORDERED: TYLENOL PO PRN (10:16)
[2017-02-18] MEDS ORDERED: ZOFRAN IV PRN (10:16)
[2017-02-18] MEDS ORDERED: DULCOLAX PR PRN (10:16)
--- NOTE | 2017-02-18 11:08 | History and Physical Report ---
History of Present Illness Chief complaint: sob, cough with productive sputum History of present illness: 61F with diastolic chf and copd who presents with sob, cough productive of scant yellow sputum, wheezing, bilateral ankle swelling, she was recently dc from the hospital 2 days ago during which she was being rx for copd exacerbation. her Sob is not relieved by her nebulizers and is getting worse, denies CP, denies fever, claims compliance with all meds, was just dc from hospital two days ago. Past History Past Medical History: COPD, diabetes (insulin-dependent), heart failure ( diastolic), HIV/AIDS (CD4 count in July was 344, on HEENT E 13), seizures, other (schizoaffective disorder, spinal stenosis) Past Surgical History: hysterectomy Social history: no significant social history Family history: diabetes Medications and Allergies Allergies Allergy/AdvReac Type Severity Reaction Status Date / Time shellfish derived Allergy Severe Shortness Verified 02/17/17 21:47 of Breath ibuprofen [From Motrin] Allergy Mild Shortness Verified 02/17/17 21:46 of Breath tetracycline Allergy Shortness Verified 02/05/17 19:10 of Breath Home Medications Medication Instructions Recorded Confirmed Last Taken Type Bacillus Coagulans [Probiotic] 1 each PO DAILY #30 capsule. 11/15/16 02/18/17 Unknown Rx Isentress 400 mg PO BID 12/01/16 02/18/17 Unknown History QUEtiapine [SEROquel] 200 mg PO QHS #30 tablet 12/10/16 02/18/17 Unknown Rx ALBUTEROL NEB's [Proventil 0.083% 2.5 mg IH Q3HRT PRN #7 nebu 01/25/17 02/18/17 Unknown Rx NEBS] Arformoterol Nebu [Brovana Nebu] 15 mcg IH Q12HRT #60 ml 01/25/17 02/18/17 Unknown Rx Furosemide [Lasix TAB] 20 mg PO DAILY #30 tablet 01/25/17 02/18/17 Unknown Rx Hydrocortisone 0.5% 1 applic TP Q8H PRN #1 tube 01/25/17 02/18/17 Unknown Rx [Hydrocortisone 0.5% CREAM] Phenytoin (25 mg/ml) [Dilantin] 300 mg PO QHS #30 oral.liqd 01/25/17 02/18/17 Unknown Rx QUEtiapine [SEROquel] 200 mg PO QHS #30 tablet 01/25/17 02/18/17 Unknown Rx Truvada 133 mg-200 mg Tablet 200 mg PO QHS 01/25/17 02/18/17 Unknown Rx Budesonide [Pulmicort Respules] 0.25 mg IH Q12HRT #7 nebu 02/08/17 02/18/17 Unknown Rx Fluconazole [Diflucan TAB] 200 mg PO QDAY #2 tablet 02/08/17 02/18/17 Unknown Rx Insulin Detemir [Levemir] 24 units SUB-Q QHS units 02/08/17 02/18/17 Unknown Rx Ipratropium/Albuterol Sulfate 1 ampul IH TIDRT #90 ampul.neb 02/08/17 02/18/17 Unknown Rx [Duoneb 0.5 mg-3 mg/3 ml Soln] Tenofovir [Viread] 300 mg PO QDAY tablet 02/08/17 02/18/17 Unknown Rx amLODIPine [Norvasc] 5 mg PO QDAY #30 tablet 02/08/17 02/18/17 Unknown Rx guaiFENesin/CODEINE [Robitussin AC] 15 ml PO Q4H PRN #10 oral.liqd 02/08/17 Unknown Rx oxyCODONE /ACETAMINOPHEN [Percocet 1 tab PO Q6H PRN #30 tablet 02/08/17 Unknown Rx 5/325 mg] Levofloxacin [Levaquin TAB] 750 mg PO QDAY #5 tablet 02/16/17 02/18/17 Unknown Rx predniSONE [Deltasone] 5 mg PO .TAPER #21 tab 02/16/17 02/18/17 Unknown Rx Active Meds: Active Medications Acetaminophen (Tylenol) 650 mg PO Q4H PRN PRN Reason: Pain MILD(1-3)/Fever >100.5/MOYER Albuterol/Ipratropium (Duoneb 0.5 Mg-3 Mg/3 Ml Soln) 1 ampul IH Q6HRT [facility] Amlodipine Besylate (Norvasc) 5 mg PO QDAY [facility] Arformoterol Tartrate (Brovana Nebu) 15 mcg IH Q12HRT [facility] Bisacodyl (Dulcolax) 10 mg OR QDAY PRN PRN Reason: Constipation unrelieved by MOM Budesonide (Pulmicort) 0.25 mg IH Q12HRT [facility] Dextrose (D50w (25gm)) 50 ml IV PRN PRN PRN Reason: Hypoglycemia Enoxaparin Sodium (Lovenox) 40 mg SUB-Q QDAY [facility] Furosemide (Lasix) 40 mg IV Q12H [facility] Hydrocortisone Acetate (Hydrocortisone Cr) 1 applic TP Q8H PRN PRN Reason: Skin Irritation Insulin Aspart (Novolog) 0 units SUB-Q ACHS [facility] PRN Reason: Protocol Insulin Detemir (Levemir) 24 units SUB-Q QHS [facility] Levofloxacin (Levaquin) 750 mg PO QDAY [facility] Magnesium Hydroxide (Milk Of Magnesia) 30 ml PO Q4H PRN PRN Reason: Constipation Methylprednisolone Sodium Succinate (Solu-Medrol) 125 mg IV Q8HR [facility] Miscellaneous Medication (Bacillus Coagulans [Probiotic]) 1 each PO DAILY [facility] Miscellaneous Medication (Isentress) 400 mg PO BID [facility] Miscellaneous Medication (Truvada 133 Mg-200 Mg Tablet) 200 mg PO QHS [facility] Ondansetron HCl (Zofran) 4 mg IV Q8H PRN PRN Reason: N/V unrelieved by Reglan Oxycodone/Acetaminophen (Percocet 5/325) 1 tab PO Q6H PRN PRN Reason: Pain, Moderate (4-6) Phenytoin (Dilantin) 300 mg PO QHS [facility] Pseudoephedrine/Acetam/Chlorphenir (Robitussin Ac) 15 ml PO Q4H PRN PRN Reason: Cough Quetiapine Fumarate (Seroquel) 200 mg PO QHS [facility] Tenofovir Disoproxil Fumarate (Viread) 300 mg PO QDAY [facility] Review of Systems All systems: negative (10 systems reviewed and negative except) Constitutional: fatigue Cardiovascular: edema (bipedal) Respiratory: cough, shortness of breath, wheezing Exam - Constitutional Vitals: Temp Pulse Resp BP Pulse Ox 98.7 F 98 H 20 139/79 93 02/18/17 01:06 02/18/17 09:31 02/18/17 09:31 02/18/17 08:00 02/18/17 08:00 General appearance: Present: no acute distress, well-nourished - EENT Eyes: Present: PERRL ENT: hearing intact, clear oral mucosa - Neck Neck: Present: supple, normal ROM - Respiratory Respiratory effort: normal Respiratory: bilateral: rales, wheezing - Cardiovascular Heart Sounds: Present: S1 & S2. Absent: rub, click - Extremities Extremities: pulses symmetrical Extremity abnormal: edema (2+ bipedal edema) Peripheral Pulses: within normal limits - Abdominal General gastrointestinal: Present: soft, non-tender, non-distended, normal bowel sounds Female genitourinary: Present: normal - Integumentary Integumentary: Present: clear, warm, dry - Musculoskeletal Musculoskeletal: gait normal, strength equal bilaterally - Psychiatric Psychiatric: appropriate mood/affect, intact judgment & insight - Neurologic Neurologic: CNII-XII intact, moves all extremities Results - Labs CBC & Chem 7: 02/19/17 07:07 02/19/17 07:07 Labs: Laboratory Last Values WBC 4.9 K/mm3 (4.5-11.0) 02/17/17 22:10 RBC 3.42 M/mm3 (3.65-5.03) L 02/17/17 22:10 Hgb 10.4 gm/dl (10.1-14.3) 02/17/17 22:10 Hct 32.1 % (30.3-42.9) 02/17/17 22:10 MCV 94 fl (79-97) 02/17/17 22:10 MCH 31 pg (28-32) 02/17/17 22:10 MCHC 33 % (30-34) 02/17/17 22:10 RDW 20.8 % (13.2-15.2) H 02/17/17 22:10 Plt Count 196 K/mm3 (140-440) 02/17/17 22:10 Baso % (Auto) [facility] Specialist 02/17/17 22:10 Add Manual Diff Complete 02/17/17 22:10 Total Counted 100 02/17/17 22:10 Seg Neuts % (Manual) 64.0 % (40.0-70.0) 02/17/17 22:10 Band Neutrophils % 0 % 02/17/17 22:10 Lymphocytes % (Manual) 29.0 % (13.4-35.0) 02/17/17 22:10 Reactive Lymphs % (Man) 0 % 02/17/17 22:10 Monocytes % (Manual) 7.0 % (0.0-7.3) 02/17/17 22:10 Eosinophils % (Manual) 0 % (0.0-4.3) 02/17/17 22:10 Basophils % (Manual) 0 % (0.0-1.8) 02/17/17 22:10 Metamyelocytes % 0 % 02/17/17 22:10 Myelocytes % 0 % 02/17/17 22:10 Promyelocytes % 0 % 02/17/17 22:10 Blast Cells % 0 % 02/17/17 22:10 Nucleated RBC % Not Reportable 02/17/17 22:10 Seg Neutrophils # Man 3.1 K/mm3 (1.8-7.7) 02/17/17 22:10 Band Neutrophils # 0.0 K/mm3 02/17/17 22:10 Lymphocytes # (Manual) 1.4 K/mm3 (1.2-5.4) 02/17/17 22:10 Abs React Lymphs (Man) 0.0 K/mm3 02/17/17 22:10 Monocytes # (Manual) 0.3 K/mm3 (0.0-0.8) 02/17/17 22:10 Eosinophils # (Manual) 0.0 K/mm3 (0.0-0.4) 02/17/17 22:10 Basophils # (Manual) 0.0 K/mm3 (0.0-0.1) 02/17/17 22:10 Metamyelocytes # 0.0 K/mm3 02/17/17 22:10 Myelocytes # 0.0 K/mm3 02/17/17 22:10 Promyelocytes # 0.0 K/mm3 02/17/17 22:10 Blast Cells # 0.0 K/mm3 02/17/17 22:10 WBC Morphology Not Reportable 02/17/17 22:10 Hypersegmented Neuts Not Reportable 02/17/17 22:10 Hyposegmented Neuts Not Reportable 02/17/17 22:10 Hypogranular Neuts Not Reportable 02/17/17 22:10 Smudge Cells Not Reportable 02/17/17 22:10 Toxic Granulation Not Reportable 02/17/17 22:10 Toxic Vacuolation Not Reportable 02/17/17 22:10 Dohle Bodies Not Reportable 02/17/17 22:10 Pelger-Huet Anomaly Not Reportable 02/17/17 22:10 Susan Rods Not Reportable 02/17/17 22:10 Platelet Estimate Consistent w auto 02/17/17 22:10 Clumped Platelets Not Reportable 02/17/17 22:10 Plt Clumps, EDTA Not Reportable 02/17/17 22:10 Large Platelets Not Reportable 02/17/17 22:10 Giant Platelets Not Reportable 02/17/17 22:10 Platelet Satelliting Not Reportable 02/17/17 22:10 Plt Morphology Comment Not Reportable 02/17/17 22:10 RBC Morphology Not Reportable 02/17/17 22:10 Dimorphic RBCs Not Reportable 02/17/17 22:10 Polychromasia Not Reportable 02/17/17 22:10 Hypochromasia 1+ 02/17/17 22:10 Poikilocytosis Not Reportable 02/17/17 22:10 Anisocytosis 1+ 02/17/17 22:10 Microcytosis Not Reportable 02/17/17 22:10 Macrocytosis Not Reportable 02/17/17 22:10 Spherocytes Not Reportable 02/17/17 22:10 Pappenheimer Bodies Not Reportable 02/17/17 22:10 Sickle Cells Not Reportable 02/17/17 22:10 Target Cells Not Reportable 02/17/17 22:10 Tear Drop Cells Not Reportable 02/17/17 22:10 Ovalocytes 1+ 02/17/17 22:10 Helmet Cells Not Reportable 02/17/17 22:10 Ochoa-Leupp Bodies Not Reportable 02/17/17 22:10 [place] Rings Not Reportable 02/17/17 22:10 [place] Cells Not Reportable 02/17/17 22:10 Bite Cells Not Reportable 02/17/17 22:10 Crenated Cell Not Reportable 02/17/17 22:10 Elliptocytes Not Reportable 02/17/17 22:10 Acanthocytes (Spur) Not Reportable 02/17/17 22:10 Rouleaux Not Reportable 02/17/17 22:10 Hemoglobin C Crystals Not Reportable 02/17/17 22:10 Schistocytes Not Reportable 02/17/17 22:10 Malaria parasites Not Reportable 02/17/17 22:10 Barry Bodies Not Reportable 02/17/17 22:10 Hem Pathologist Commnt No 02/17/17 22:10 POC ABG pH 7.422 (7.35-7.45) 02/18/17 09:27 POC ABG pCO2 38.7 (35-45) 02/18/17 09:27 POC ABG pO2 71 (80-105) L 02/18/17 09:27 POC ABG HCO3 25.2 02/18/17 09:27 POC ABG Total CO2 26 02/18/17 09:27 POC ABG O2 Sat 94 02/18/17 09:27 POC ABG Base Excess 1 02/18/17 09:27 FiO2 21 % 02/18/17 09:27 Sodium 139 mmol/L (137-145) 02/17/17 22:10 Potassium 3.7 mmol/L (3.6-5.0) 02/17/17 22:10 Chloride 102.5 mmol/L (98-107) 02/17/17 22:10 Carbon Dioxide 21 mmol/L (22-30) L 02/17/17 22:10 Anion Gap 19 mmol/L 02/17/17 22:10 BUN 16 mg/dL (7-17) 02/17/17 22:10 Creatinine 0.8 mg/dL (0.7-1.2) 02/17/17 22:10 Estimated GFR > 60 ml/min 02/17/17 22:10 BUN/Creatinine Ratio 20.00 % 02/17/17 22:10 Glucose 155 mg/dL (65-100) H 02/17/17 22:10 Calcium 8.3 mg/dL (8.4-10.2) L 02/17/17 22:10 Troponin T < 0.010 ng/mL (0.00-0.029) 02/17/17 22:10 - Imaging and Cardiology Chest x-ray: image reviewed (no acute pathology seen) Assessment and Plan Assessment and plan: 61-year-old woman with past medical history of COPD, HIV AIDS CD4 count of 344, and Pedro, CHF diastolic, type 2 diabetes insulin-dependent, seizure disorder, schizoaffective disorder, who was just in hospital and treated for COPD exacerbation and discharged 2 days prior to presentation who presents for shortness of breath coughing wheezing Acute respiratory failure was using accessory muscles at time of triage continue supplemental oxygen and treat underlying cause COPD with exacerbation IV steroids, aggressive nebulizer treatment and antibiotics Pulmonology consult. Acute on chronic diastolic heart failure Lasix IV twice a day, optimize medications Insulin-dependent diabetes 2 Continue home insulin along with sliding scale insulin, expect glucose arise given initially put on IV steroids Hypertension Continue home medication Schizoaffective disorder Continue her behavioral medications Seizure disorder Continue her home AEDs DVT prophylaxis Lovenox Plan of care discussed with patient/family: Yes
[2017-02-18] MEDS: NOVOLOG SUB-Q SCH ×3 (11:52→23:09)
[2017-02-18] MEDS ORDERED: NOVOLOG SUB-Q ONE (11:55)
[2017-02-18] MEDS: LASIX IV SCH ×2 (11:59→23:05)
--- NOTE | 2017-02-18 12:38 | Consultation ---
History of Present Illness Consult date: 02/18/17 Requesting physician: DIONNA CASTAÑEDA History of present illness: PULMONARY/CCM CONSULT NOTE (Full dictation # [id number]) Please see dictated notes for full details Past History Past Medical History: COPD, diabetes (insulin-dependent), heart failure ( diastolic), HIV/AIDS (CD4 count in July was 344, on HEENT E 13), seizures, other (schizoaffective disorder, spinal stenosis) Past Surgical History: hysterectomy Social history: no significant social history Family history: diabetes Medications and Allergies Allergies Allergy/AdvReac Type Severity Reaction Status Date / Time shellfish derived Allergy Severe Shortness Verified 02/17/17 21:47 of Breath ibuprofen [From Motrin] Allergy Mild Shortness Verified 02/17/17 21:46 of Breath tetracycline Allergy Shortness Verified 02/05/17 19:10 of Breath Home Medications Medication Instructions Recorded Confirmed Last Taken Type Bacillus Coagulans [Probiotic] 1 each PO DAILY #30 capsule. 11/15/16 02/18/17 Unknown Rx Isentress 400 mg PO BID 12/01/16 02/18/17 Unknown History QUEtiapine [SEROquel] 200 mg PO QHS #30 tablet 12/10/16 02/18/17 Unknown Rx ALBUTEROL NEB's [Proventil 0.083% 2.5 mg IH Q3HRT PRN #7 nebu 01/25/17 02/18/17 Unknown Rx NEBS] Arformoterol Nebu [Brovana Nebu] 15 mcg IH Q12HRT #60 ml 01/25/17 02/18/17 Unknown Rx Furosemide [Lasix TAB] 20 mg PO DAILY #30 tablet 01/25/17 02/18/17 Unknown Rx Hydrocortisone 0.5% 1 applic TP Q8H PRN #1 tube 01/25/17 02/18/17 Unknown Rx [Hydrocortisone 0.5% CREAM] Phenytoin (25 mg/ml) [Dilantin] 300 mg PO QHS #30 oral.liqd 01/25/17 02/18/17 Unknown Rx QUEtiapine [SEROquel] 200 mg PO QHS #30 tablet 01/25/17 02/18/17 Unknown Rx Truvada 133 mg-200 mg Tablet 200 mg PO QHS 01/25/17 02/18/17 Unknown Rx Budesonide [Pulmicort Respules] 0.25 mg IH Q12HRT #7 nebu 02/08/17 02/18/17 Unknown Rx Fluconazole [Diflucan TAB] 200 mg PO QDAY #2 tablet 02/08/17 02/18/17 Unknown Rx Insulin Detemir [Levemir] 24 units SUB-Q QHS units 02/08/17 02/18/17 Unknown Rx Ipratropium/Albuterol Sulfate 1 ampul IH TIDRT #90 ampul.neb 02/08/17 02/18/17 Unknown Rx [Duoneb 0.5 mg-3 mg/3 ml Soln] Tenofovir [Viread] 300 mg PO QDAY tablet 02/08/17 02/18/17 Unknown Rx amLODIPine [Norvasc] 5 mg PO QDAY #30 tablet 02/08/17 02/18/17 Unknown Rx guaiFENesin/CODEINE [Robitussin AC] 15 ml PO Q4H PRN #10 oral.liqd 02/08/17 Unknown Rx oxyCODONE /ACETAMINOPHEN [Percocet 1 tab PO Q6H PRN #30 tablet 02/08/17 Unknown Rx 5/325 mg] Levofloxacin [Levaquin TAB] 750 mg PO QDAY #5 tablet 02/16/17 02/18/17 Unknown Rx predniSONE [Deltasone] 5 mg PO .TAPER #21 tab 02/16/17 02/18/17 Unknown Rx Active Meds: Active Medications Acetaminophen (Tylenol) 650 mg PO Q4H PRN PRN Reason: Pain MILD(1-3)/Fever >100.5/MOYER Albuterol/Ipratropium (Duoneb 0.5 Mg-3 Mg/3 Ml Soln) 1 ampul IH Q6HRT [facility] Amlodipine Besylate (Norvasc) 5 mg PO QDAY [facility] Arformoterol Tartrate (Brovana Nebu) 15 mcg IH Q12HRT [facility] Bisacodyl (Dulcolax) 10 mg ME QDAY PRN PRN Reason: Constipation unrelieved by MOM Budesonide (Pulmicort) 0.25 mg IH Q12HRT [facility] Dextrose (D50w (25gm)) 50 ml IV PRN PRN PRN Reason: Hypoglycemia Enoxaparin Sodium (Lovenox) 40 mg SUB-Q QDAY [facility] Furosemide (Lasix) 40 mg IV Q12H [facility] Last Admin: 02/18/17 11:59 Dose: Not Given Hydrocortisone Acetate (Hydrocortisone Cr) 1 applic TP Q8H PRN PRN Reason: Skin Irritation Insulin Aspart (Novolog) 0 units SUB-Q ACHS [facility] PRN Reason: Protocol Last Admin: 02/18/17 11:52 Dose: 4 units Insulin Detemir (Levemir) 24 units SUB-Q QHS [facility] Levofloxacin (Levaquin) 750 mg PO QDAY [facility] Magnesium Hydroxide (Milk Of Magnesia) 30 ml PO Q4H PRN PRN Reason: Constipation Methylprednisolone Sodium Succinate (Solu-Medrol) 125 mg IV Q8HR [facility] Miscellaneous Medication (Isentress) 400 mg PO BID [facility] Miscellaneous Medication (Truvada 133 Mg-200 Mg Tablet) 200 mg PO QHS [facility] Ondansetron HCl (Zofran) 4 mg IV Q8H PRN PRN Reason: N/V unrelieved by Reglan Oxycodone/Acetaminophen (Percocet 5/325) 1 tab PO Q6H PRN PRN Reason: Pain, Moderate (4-6) Phenytoin (Dilantin) 300 mg PO QHS [facility] Pseudoephedrine/Acetam/Chlorphenir (Robitussin Ac) 15 ml PO Q4H PRN PRN Reason: Cough Quetiapine Fumarate (Seroquel) 200 mg PO QHS [facility] Tenofovir Disoproxil Fumarate (Viread) 300 mg PO QDAY [facility] Physical Examination Vital signs: Vital Signs Temp Pulse Resp BP Pulse Ox 98.2 F 113 H 20 145/98 96 02/17/17 21:40 02/17/17 21:40 02/17/17 21:40 02/17/17 21:40 02/17/17 21:40 Results - Laboratory Findings CBC and BMP: 02/17/17 22:10 02/17/17 22:10 ABG POC ABG pH 7.422 (7.35-7.45) 02/18/17 09:27 POC ABG pCO2 38.7 (35-45) 02/18/17 09:27 POC ABG pO2 71 (80-105) L 02/18/17 09:27 POC ABG HCO3 25.2 02/18/17 09:27 POC ABG Total CO2 26 02/18/17 09:27 POC ABG O2 Sat 94 02/18/17 09:27 Abnormal lab findings: Abnormal Labs 02/18/17 11:48 POC Glucose 311 H
[2017-02-18] MEDS: DUONEB 0.5 MG-3 MG/3 ML SOLN IH SCH ×2 (14:52→21:17)
[2017-02-18] MEDS ORDERED: PROVENTIL IH PRN (14:59)
[2017-02-18] MEDS: BROVANA NEBU IH SCH (21:37)
[2017-02-18] MEDS: PULMICORT IH SCH (21:37)
[2017-02-18] MEDS ORDERED: DILANTIN PO SCH (22:00)
[2017-02-18] MEDS ORDERED: TRUVADA PO SCH (22:00)
[2017-02-18] MEDS: PERCOCET 5/325 PO PRN (22:31)
[2017-02-18] MEDS: ISENTRESS PO SCH (22:32)
[2017-02-18] MEDS: ROBITUSSIN AC PO PRN (22:33)
[2017-02-18] MEDS: LEVEMIR SUB-Q SCH (22:34)
[2017-02-18] MEDS: DILANTIN PO SCH (23:08)
[2017-02-19] MEDS: DUONEB 0.5 MG-3 MG/3 ML SOLN IH SCH ×4 (02:12→22:15)
[2017-02-19] MEDS: ROBITUSSIN AC PO PRN ×3 (05:45→22:47)
[2017-02-19 07:55] LABS: Hematocrit 32.4 % (30.3-42.9); Hemoglobin 10.5 gm/dl (10.1-14.3); Mean Corpuscular HGB Conc 32 % (30-34); Mean Corpuscular Hemoglobin 30 pg (28-32); Mean Corpuscular Volume 93 fl (79-97); Platelet Count 180 K/mm3 (140-440); Red Blood Count 3.48 M/mm3 (3.65-5.03); White Blood Count 5.9 K/mm3 (4.5-11.0)
[2017-02-19 08:11] LABS: Red Cell Distribution Width 20.9 % (13.2-15.2)
[2017-02-19 08:20] LABS: Anion Gap 20 mmol/L; BUN/Creatinine Ratio 18.75; Blood Urea Nitrogen 15 mg/dL (7-17); Calcium 8.7 mg/dL (8.4-10.2); Carbon Dioxide 25 mmol/L (22-30); Chloride 98.3 mmol/L (98-107); Glucose 253 mg/dL (65-100); Potassium 4.5 mmol/L (3.6-5.0); Sodium 139 mmol/L (137-145)
[2017-02-19] MEDS: BROVANA NEBU IH SCH ×2 (08:57→22:21)
[2017-02-19] MEDS: PULMICORT IH SCH ×2 (08:57→22:16)
[2017-02-19] MEDS: NORVASC PO SCH (09:46)
[2017-02-19] MEDS: PEPCID PO SCH (09:46)
[2017-02-19] MEDS: ISENTRESS PO SCH ×2 (09:47→22:47)
[2017-02-19] MEDS: LOVENOX SUB-Q SCH (09:47)
[2017-02-19] MEDS: EMTRIVA PO SCH (09:47)
[2017-02-19] MEDS: VIREAD PO SCH (09:47)
--- NOTE | 2017-02-19 09:51 | Progress Note ---
Assessment and Plan Assessment and plan: 61-year-old woman with past medical history of COPD, HIV AIDS CD4 count of 344, and Pedro, CHF diastolic, type 2 diabetes insulin-dependent, seizure disorder, schizoaffective disorder, who was just in hospital and treated for COPD exacerbation and discharged 2 days prior to presentation who presents for shortness of breath coughing wheezing Acute respiratory failure was using accessory muscles at time of triage continue supplemental oxygen and treat underlying cause COPD with exacerbation IV steroids, aggressive nebulizer treatment and antibiotics Pulmonology consult. Acute on chronic diastolic heart failure Lasix IV twice a day, optimize medications Insulin-dependent diabetes 2 Continue home insulin along with sliding scale insulin Hypertension Continue home medication Schizoaffective disorder Continue her behavioral medications Seizure disorder Continue her home AEDs DVT prophylaxis Lovenox History Interval history: sob, cough and wheezing is improved Hospitalist Physical - Physical exam Narrative exam: General: Patient appears well in no distress HEENT: MMM, EOMI cardiac: S1-S2 heard lungs: wheezing, improved air entry abdomen: soft, nontender, nondistended bowel sounds positive extremities: trace bipedal edema Skin: no rash or lesion Neuro: no focal deficit Psych: appropriate behavior and mood, cognition intact - Constitutional Vitals: Temp Pulse Resp BP Pulse Ox 98.6 F 92 H 18 140/90 99 02/19/17 08:08 02/19/17 09:46 02/19/17 08:08 02/19/17 09:46 02/19/17 08:08 General appearance: Present: no acute distress, well-nourished Results - Labs CBC & Chem 7: 02/19/17 07:07 02/19/17 07:07 Labs: Laboratory Last Values WBC 5.9 K/mm3 (4.5-11.0) 02/19/17 07:07 RBC 3.48 M/mm3 (3.65-5.03) L 02/19/17 07:07 Hgb 10.5 gm/dl (10.1-14.3) 02/19/17 07:07 Hct 32.4 % (30.3-42.9) 02/19/17 07:07 MCV 93 fl (79-97) 02/19/17 07:07 MCH 30 pg (28-32) 02/19/17 07:07 MCHC 32 % (30-34) 02/19/17 07:07 RDW 20.9 % (13.2-15.2) H 02/19/17 07:07 Plt Count 180 K/mm3 (140-440) 02/19/17 07:07 Lymph % (Auto) 14.1 % (13.4-35.0) 02/19/17 07:07 [place] % (Auto) 8.9 % (0.0-7.3) H 02/19/17 07:07 Eos % (Auto) 0.0 % (0.0-4.3) 02/19/17 07:07 Baso % (Auto) 0.0 % (0.0-1.8) 02/19/17 07:07 Lymph # 0.8 K/mm3 (1.2-5.4) L 02/19/17 07:07 [place] # 0.5 K/mm3 (0.0-0.8) 02/19/17 07:07 Eos # 0.0 K/mm3 (0.0-0.4) 02/19/17 07:07 Baso # 0.0 K/mm3 (0.0-0.1) 02/19/17 07:07 Add Manual Diff Complete 02/17/17 22:10 Total Counted 100 02/17/17 22:10 Seg Neutrophils % 77.0 % (40.0-70.0) H 02/19/17 07:07 Seg Neuts % (Manual) 64.0 % (40.0-70.0) 02/17/17 22:10 Band Neutrophils % 0 % 02/17/17 22:10 Lymphocytes % (Manual) 29.0 % (13.4-35.0) 02/17/17 22:10 Reactive Lymphs % (Man) 0 % 02/17/17 22:10 Monocytes % (Manual) 7.0 % (0.0-7.3) 02/17/17 22:10 Eosinophils % (Manual) 0 % (0.0-4.3) 02/17/17 22:10 Basophils % (Manual) 0 % (0.0-1.8) 02/17/17 22:10 Metamyelocytes % 0 % 02/17/17 22:10 Myelocytes % 0 % 02/17/17 22:10 Promyelocytes % 0 % 02/17/17 22:10 Blast Cells % 0 % 02/17/17 22:10 Nucleated RBC % Not Reportable 02/17/17 22:10 Seg Neutrophils # 4.5 K/mm3 (1.8-7.7) 02/19/17 07:07 Seg Neutrophils # Man 3.1 K/mm3 (1.8-7.7) 02/17/17 22:10 Band Neutrophils # 0.0 K/mm3 02/17/17 22:10 Lymphocytes # (Manual) 1.4 K/mm3 (1.2-5.4) 02/17/17 22:10 Abs React Lymphs (Man) 0.0 K/mm3 02/17/17 22:10 Monocytes # (Manual) 0.3 K/mm3 (0.0-0.8) 02/17/17 22:10 Eosinophils # (Manual) 0.0 K/mm3 (0.0-0.4) 02/17/17 22:10 Basophils # (Manual) 0.0 K/mm3 (0.0-0.1) 02/17/17 22:10 Metamyelocytes # 0.0 K/mm3 02/17/17 22:10 Myelocytes # 0.0 K/mm3 02/17/17 22:10 Promyelocytes # 0.0 K/mm3 02/17/17 22:10 Blast Cells # 0.0 K/mm3 02/17/17 22:10 WBC Morphology Not Reportable 02/17/17 22:10 Hypersegmented Neuts Not Reportable 02/17/17 22:10 Hyposegmented Neuts Not Reportable 02/17/17 22:10 Hypogranular Neuts Not Reportable 02/17/17 22:10 Smudge Cells Not Reportable 02/17/17 22:10 Toxic Granulation Not Reportable 02/17/17 22:10 Toxic Vacuolation Not Reportable 02/17/17 22:10 Dohle Bodies Not Reportable 02/17/17 22:10 Pelger-Huet Anomaly Not Reportable 02/17/17 22:10 Susan Rods Not Reportable 02/17/17 22:10 Platelet Estimate Consistent w auto 02/17/17 22:10 Clumped Platelets Not Reportable 02/17/17 22:10 Plt Clumps, EDTA Not Reportable 02/17/17 22:10 Large Platelets Not Reportable 02/17/17 22:10 Giant Platelets Not Reportable 02/17/17 22:10 Platelet Satelliting Not Reportable 02/17/17 22:10 Plt Morphology Comment Not Reportable 02/17/17 22:10 RBC Morphology Not Reportable 02/17/17 22:10 Dimorphic RBCs Not Reportable 02/17/17 22:10 Polychromasia Not Reportable 02/17/17 22:10 Hypochromasia 1+ 02/17/17 22:10 Poikilocytosis Not Reportable 02/17/17 22:10 Anisocytosis 1+ 02/17/17 22:10 Microcytosis Not Reportable 02/17/17 22:10 Macrocytosis Not Reportable 02/17/17 22:10 Spherocytes Not Reportable 02/17/17 22:10 Pappenheimer Bodies Not Reportable 02/17/17 22:10 Sickle Cells Not Reportable 02/17/17 22:10 Target Cells Not Reportable 02/17/17 22:10 Tear Drop Cells Not Reportable 02/17/17 22:10 Ovalocytes 1+ 02/17/17 22:10 Helmet Cells Not Reportable 02/17/17 22:10 [place] Bodies Not Reportable 02/17/17 22:10 Sp[place]y Rings Not Reportable 02/17/17 22:10 [place] Cells Not Reportable 02/17/17 22:10 Bite Cells Not Reportable 02/17/17 22:10 Crenated Cell Not Reportable 02/17/17 22:10 Elliptocytes Not Reportable 02/17/17 22:10 Acanthocytes (Spur) Not Reportable 02/17/17 22:10 Rouleaux Not Reportable 02/17/17 22:10 Hemoglobin C Crystals Not Reportable 02/17/17 22:10 Schistocytes Not Reportable 02/17/17 22:10 Malaria parasites Not Reportable 02/17/17 22:10 Barry Bodies Not Reportable 02/17/17 22:10 Hem Pathologist Commnt No 02/17/17 22:10 POC ABG pH 7.422 (7.35-7.45) 02/18/17 09:27 POC ABG pCO2 38.7 (35-45) 02/18/17 09:27 POC ABG pO2 71 (80-105) L 02/18/17 09:27 POC ABG HCO3 25.2 02/18/17 09:27 POC ABG Total CO2 26 02/18/17 09:27 POC ABG O2 Sat 94 02/18/17 09:27 POC ABG Base Excess 1 02/18/17 09:27 FiO2 21 % 02/18/17 09:27 Sodium 139 mmol/L (137-145) 02/19/17 07:07 Potassium 4.5 mmol/L (3.6-5.0) D 02/19/17 07:07 Chloride 98.3 mmol/L (98-107) 02/19/17 07:07 Carbon Dioxide 25 mmol/L (22-30) 02/19/17 07:07 Anion Gap 20 mmol/L 02/19/17 07:07 BUN 15 mg/dL (7-17) 02/19/17 07:07 Creatinine 0.8 mg/dL (0.7-1.2) 02/19/17 07:07 Estimated GFR > 60 ml/min 02/19/17 07:07 BUN/Creatinine Ratio 18.75 % 02/19/17 07:07 Glucose 253 mg/dL (65-100) H 02/19/17 07:07 POC Glucose 291 (70-105) H 02/19/17 07:23 Calcium 8.7 mg/dL (8.4-10.2) 02/19/17 07:07 Troponin T < 0.010 ng/mL (0.00-0.029) 02/17/17 22:10
[2017-02-19] MEDS: LEVAQUIN PO SCH (09:54)
[2017-02-19] MEDS: NOVOLOG SUB-Q SCH ×4 (09:57→22:56)
[2017-02-19] MEDS ORDERED: INSULIN ASPART SC SCH (10:00)
[2017-02-19] MEDS ORDERED: BACILLUS COAGULANS PO SCH (10:00)
[2017-02-19] MEDS: PERCOCET 5/325 PO PRN ×2 (10:00→22:47)
--- NOTE | 2017-02-19 11:45 | Progress Note ---
Assessment and Plan - Patient Problems (1) Acute exacerbation of chronic obstructive pulmonary disease (COPD) Current Visit: Yes Status: Acute Plan to address problem: - continue systemic steroids - continue QUEENIE, LABA & ICS - supplemental oxygen to keep sats > 94% - prn BIPAP - continue empiric Antibiotics (2) CHF (congestive heart failure) Current Visit: Yes Status: Acute Qualifiers: Congestive heart failure type: systolic Congestive heart failure chronicity : acute on chronic Qualified Code(s): I50.23 - Acute on chronic systolic ( congestive) heart failure Plan to address problem: - continue diuresis - continue chronic home meds (3) AIDS Current Visit: No Status: Acute Plan to address problem: - continue HAART - CD4 count decent (>300) (4) Diabetes Current Visit: No Status: Acute Qualifiers: Diabetes mellitus type: D Diabetes mellitus complication status: D Diabetes mellitus complication detail: D Diabetic retinopathy severity: D Proliferative retinopathy type: P Diabetes mellitus macular edema: D Diabetes mellitus long term care phlebotomist insulin use: D Laterality: L Chronic kidney disease stage: C Plan to address problem: - continue detemir (24units sq qd) - continue SSI Subjective Date of service: 02/19/17 Principal diagnosis: Acute COPD exacerbation Interval history: Seen and examined at bedside; 24 hour events reviewed; nursing and respiratory care staff consulted; no adverse overnight events reported to me; resting in bed; denies acute chest pains or increased SOB; no hemoptysis; no N/V /F/C Objective Vital Signs - 12hr 02/19/17 02/19/17 02/19/17 00:21 05:42 06:22 Temperature 98.4 F 98.5 F Pulse Rate 93 H Pulse Rate [ 103 H 100 H Left] Respiratory 20 20 Rate Blood Pressure Blood Pressure 100/62 117/76 [Left Arm] O2 Sat by Pulse 97 99 Oximetry 02/19/17 02/19/17 08:08 09:46 Temperature 98.6 F Pulse Rate 92 H Pulse Rate [ 94 H Left] Respiratory 18 Rate Blood Pressure 140/90 Blood Pressure 138/92 [Left Arm] O2 Sat by Pulse 99 Oximetry Constitutional: no acute distress, alert Eyes: non-icteric ENT: oropharynx moist Neck: supple, no lymphadenopathy Effort: mildly labored Ascultation: Bilateral: diminished breath sounds, wheezes (expiratory) Cardiovascular: regular rate and rhythm Gastrointestinal: normoactive bowel sounds, soft, non-tender, non-distended Integumentary: normal Extremities: no cyanosis, no edema, pulses normal, no ischemia or petechiae Neurologic: normal mental status, non-focal exam, other (Mild cognitive deficit) Psychiatric: mood appropriate, affect normal CBC and BMP: 02/19/17 07:07 02/19/17 07:07 ABG, PT/INR, D-dimer: ABG POC ABG pH 7.422 (7.35-7.45) 02/18/17 09:27 POC ABG pCO2 38.7 (35-45) 02/18/17 09:27 POC ABG pO2 71 (80-105) L 02/18/17 09:27 POC ABG HCO3 25.2 02/18/17 09:27 POC ABG Total CO2 26 02/18/17 09:27 POC ABG O2 Sat 94 02/18/17 09:27 Abnormal lab findings: Abnormal Labs 02/18/17 02/18/17 02/18/17 11:48 12:57 16:25 RBC RDW [place] % (Auto) Lymph # Seg Neutrophils % Glucose POC Glucose 311 H 348 H 162 H 02/18/17 02/19/17 02/19/17 21:52 07:07 07:07 RBC 3.48 L RDW 20.9 H [place] % (Auto) 8.9 H Lymph # 0.8 L Seg Neutrophils % 77.0 H Glucose 253 H POC Glucose 212 H 02/19/17 07:23 RBC RDW [place] % (Auto) Lymph # Seg Neutrophils % Glucose POC Glucose 291 H Chest x-ray: image reviewed
[2017-02-19] MEDS: LASIX IV SCH ×2 (15:50→22:56)
[2017-02-19] MEDS: MILK OF MAGNESIA PO PRN (17:08)
[2017-02-19] MEDS ORDERED: DILANTIN PO SCH (22:00)
[2017-02-19] MEDS: DILANTIN PO SCH (22:47)
[2017-02-19] MEDS: LEVEMIR SUB-Q SCH (22:50)
[2017-02-20] MEDS: DUONEB 0.5 MG-3 MG/3 ML SOLN IH SCH ×4 (02:40→21:12)
[2017-02-20] MEDS: ROBITUSSIN AC PO PRN ×3 (05:10→22:16)
[2017-02-20] MEDS: PULMICORT IH SCH ×2 (09:30→21:12)
[2017-02-20] MEDS: BROVANA NEBU IH SCH ×2 (09:31→21:16)
[2017-02-20] MEDS: PEPCID PO SCH (09:37)
[2017-02-20] MEDS: LEVAQUIN PO SCH (09:37)
[2017-02-20] MEDS: NORVASC PO SCH (09:37)
[2017-02-20] MEDS: LOVENOX SUB-Q SCH (09:38)
[2017-02-20] MEDS: EMTRIVA PO SCH (09:38)
[2017-02-20] MEDS: ISENTRESS PO SCH ×2 (09:38→22:16)
[2017-02-20] MEDS: VIREAD PO SCH (09:39)
[2017-02-20] MEDS: NOVOLOG SUB-Q SCH ×4 (09:42→22:17)
[2017-02-20] MEDS: PERCOCET 5/325 PO PRN ×2 (10:38→22:16)
--- NOTE | 2017-02-20 13:02 | Progress Note ---
Assessment and Plan Assessment and plan: 61-year-old woman with past medical history of COPD, HIV AIDS CD4 count of 344, and [place], CHF diastolic, type 2 diabetes insulin-dependent, seizure disorder, schizoaffective disorder, who was just in hospital and treated for COPD exacerbation and discharged 2 days prior to presentation who presents for shortness of breath coughing wheezing Acute respiratory failure was using accessory muscles at time of triage continue supplemental oxygen and treat underlying cause COPD with exacerbation IV steroids, aggressive nebulizer treatment and antibiotics Pulmonology consult. Acute on chronic diastolic heart failure Lasix IV twice a day, optimize medications Insulin-dependent diabetes 2 Continue home insulin along with sliding scale insulin Hypertension Continue home medication Schizoaffective disorder Continue her behavioral medications Seizure disorder Continue her home AEDs Vaginal yeast infection miconazole pessary x7 days DVT prophylaxis Lovenox History Interval history: sob, cough and wheezing is improved, she is c/o vaginal itching and cottage cheese like discharge Hospitalist Physical - Physical exam Narrative exam: General: Patient appears well in no distress HEENT: MMM, EOMI cardiac: S1-S2 heard lungs: wheezing, improved air entry abdomen: soft, nontender, nondistended bowel sounds positive extremities: trace bipedal edema Skin: no rash or lesion Neuro: no focal deficit Psych: appropriate behavior and mood, cognition intact - Constitutional Vitals: Temp Pulse Resp BP Pulse Ox 97.4 F L 93 H 20 142/83 97 02/20/17 08:00 02/20/17 12:00 02/20/17 09:39 02/20/17 08:00 02/20/17 09:31 General appearance: Present: no acute distress, well-nourished Results - Labs CBC & Chem 7: 02/19/17 07:07 02/19/17 07:07 Labs: Laboratory Last Values WBC 5.9 K/mm3 (4.5-11.0) 02/19/17 07:07 RBC 3.48 M/mm3 (3.65-5.03) L 02/19/17 07:07 Hgb 10.5 gm/dl (10.1-14.3) 02/19/17 07:07 Hct 32.4 % (30.3-42.9) 02/19/17 07:07 MCV 93 fl (79-97) 02/19/17 07:07 MCH 30 pg (28-32) 02/19/17 07:07 MCHC 32 % (30-34) 02/19/17 07:07 RDW 20.9 % (13.2-15.2) H 02/19/17 07:07 Plt Count 180 K/mm3 (140-440) 02/19/17 07:07 Lymph % (Auto) 14.1 % (13.4-35.0) 02/19/17 07:07 [place] % (Auto) 8.9 % (0.0-7.3) H 02/19/17 07:07 Eos % (Auto) 0.0 % (0.0-4.3) 02/19/17 07:07 Baso % (Auto) 0.0 % (0.0-1.8) 02/19/17 07:07 Lymph # 0.8 K/mm3 (1.2-5.4) L 02/19/17 07:07 [place] # 0.5 K/mm3 (0.0-0.8) 02/19/17 07:07 Eos # 0.0 K/mm3 (0.0-0.4) 02/19/17 07:07 Baso # 0.0 K/mm3 (0.0-0.1) 02/19/17 07:07 Add Manual Diff Complete 02/17/17 22:10 Total Counted 100 02/17/17 22:10 Seg Neutrophils % 77.0 % (40.0-70.0) H 02/19/17 07:07 Seg Neuts % (Manual) 64.0 % (40.0-70.0) 02/17/17 22:10 Band Neutrophils % 0 % 02/17/17 22:10 Lymphocytes % (Manual) 29.0 % (13.4-35.0) 02/17/17 22:10 Reactive Lymphs % (Man) 0 % 02/17/17 22:10 Monocytes % (Manual) 7.0 % (0.0-7.3) 02/17/17 22:10 Eosinophils % (Manual) 0 % (0.0-4.3) 02/17/17 22:10 Basophils % (Manual) 0 % (0.0-1.8) 02/17/17 22:10 Metamyelocytes % 0 % 02/17/17 22:10 Myelocytes % 0 % 02/17/17 22:10 Promyelocytes % 0 % 02/17/17 22:10 Blast Cells % 0 % 02/17/17 22:10 Nucleated RBC % Not Reportable 02/17/17 22:10 Seg Neutrophils # 4.5 K/mm3 (1.8-7.7) 02/19/17 07:07 Seg Neutrophils # Man 3.1 K/mm3 (1.8-7.7) 02/17/17 22:10 Band Neutrophils # 0.0 K/mm3 02/17/17 22:10 Lymphocytes # (Manual) 1.4 K/mm3 (1.2-5.4) 02/17/17 22:10 Abs React Lymphs (Man) 0.0 K/mm3 02/17/17 22:10 Monocytes # (Manual) 0.3 K/mm3 (0.0-0.8) 02/17/17 22:10 Eosinophils # (Manual) 0.0 K/mm3 (0.0-0.4) 02/17/17 22:10 Basophils # (Manual) 0.0 K/mm3 (0.0-0.1) 02/17/17 22:10 Metamyelocytes # 0.0 K/mm3 02/17/17 22:10 Myelocytes # 0.0 K/mm3 02/17/17 22:10 Promyelocytes # 0.0 K/mm3 02/17/17 22:10 Blast Cells # 0.0 K/mm3 02/17/17 22:10 WBC Morphology Not Reportable 02/17/17 22:10 Hypersegmented Neuts Not Reportable 02/17/17 22:10 Hyposegmented Neuts Not Reportable 02/17/17 22:10 Hypogranular Neuts Not Reportable 02/17/17 22:10 Smudge Cells Not Reportable 02/17/17 22:10 Toxic Granulation Not Reportable 02/17/17 22:10 Toxic Vacuolation Not Reportable 02/17/17 22:10 Dohle Bodies Not Reportable 02/17/17 22:10 Pelger-Huet Anomaly Not Reportable 02/17/17 22:10 Susan Rods Not Reportable 02/17/17 22:10 Platelet Estimate Consistent w auto 02/17/17 22:10 Clumped Platelets Not Reportable 02/17/17 22:10 Plt Clumps, EDTA Not Reportable 02/17/17 22:10 Large Platelets Not Reportable 02/17/17 22:10 Giant Platelets Not Reportable 02/17/17 22:10 Platelet Satelliting Not Reportable 02/17/17 22:10 Plt Morphology Comment Not Reportable 02/17/17 22:10 RBC Morphology Not Reportable 02/17/17 22:10 Dimorphic RBCs Not Reportable 02/17/17 22:10 Polychromasia Not Reportable 02/17/17 22:10 Hypochromasia 1+ 02/17/17 22:10 Poikilocytosis Not Reportable 02/17/17 22:10 Anisocytosis 1+ 02/17/17 22:10 Microcytosis Not Reportable 02/17/17 22:10 Macrocytosis Not Reportable 02/17/17 22:10 Spherocytes Not Reportable 02/17/17 22:10 Pappenheimer Bodies Not Reportable 02/17/17 22:10 Sickle Cells Not Reportable 02/17/17 22:10 Target Cells Not Reportable 02/17/17 22:10 Tear Drop Cells Not Reportable 02/17/17 22:10 Ovalocytes 1+ 02/17/17 22:10 Helmet Cells Not Reportable 02/17/17 22:10 Ochoa-Bradshaw Bodies Not Reportable 02/17/17 22:10 [place] Rings Not Reportable 02/17/17 22:10 Aileen Cells Not Reportable 02/17/17 22:10 Bite Cells Not Reportable 02/17/17 22:10 Crenated Cell Not Reportable 02/17/17 22:10 Elliptocytes Not Reportable 02/17/17 22:10 Acanthocytes (Spur) Not Reportable 02/17/17 22:10 Rouleaux Not Reportable 02/17/17 22:10 Hemoglobin C Crystals Not Reportable 02/17/17 22:10 Schistocytes Not Reportable 02/17/17 22:10 Malaria parasites Not Reportable 02/17/17 22:10 Barry Bodies Not Reportable 02/17/17 22:10 Hem Pathologist Commnt No 02/17/17 22:10 POC ABG pH 7.422 (7.35-7.45) 02/18/17 09:27 POC ABG pCO2 38.7 (35-45) 02/18/17 09:27 POC ABG pO2 71 (80-105) L 02/18/17 09:27 POC ABG HCO3 25.2 02/18/17 09:27 POC ABG Total CO2 26 02/18/17 09:27 POC ABG O2 Sat 94 02/18/17 09:27 POC ABG Base Excess 1 02/18/17 09:27 FiO2 21 % 02/18/17 09:27 Sodium 139 mmol/L (137-145) 02/19/17 07:07 Potassium 4.5 mmol/L (3.6-5.0) D 02/19/17 07:07 Chloride 98.3 mmol/L (98-107) 02/19/17 07:07 Carbon Dioxide 25 mmol/L (22-30) 02/19/17 07:07 Anion Gap 20 mmol/L 02/19/17 07:07 BUN 15 mg/dL (7-17) 02/19/17 07:07 Creatinine 0.8 mg/dL (0.7-1.2) 02/19/17 07:07 Estimated GFR > 60 ml/min 02/19/17 07:07 BUN/Creatinine Ratio 18.75 % 02/19/17 07:07 Glucose 253 mg/dL (65-100) H 02/19/17 07:07 POC Glucose 225 (70-105) H 02/19/17 22:04 Calcium 8.7 mg/dL (8.4-10.2) 02/19/17 07:07 Troponin T < 0.010 ng/mL (0.00-0.029) 02/17/17 22:10
[2017-02-20] MEDS: LASIX IV SCH ×2 (13:04→22:17)
--- NOTE | 2017-02-20 14:59 | Progress Note ---
Assessment and Plan (1) Acute exacerbation of chronic obstructive pulmonary disease (COPD) Current Visit: Yes Status: Acute Plan to address problem: - continue systemic steroids but begin taper - continue QUEENIE, LABA & ICS - supplemental oxygen to keep sats > 94% - prn BIPAP - continue empiric Antibiotics (2) CHF (congestive heart failure) Current Visit: Yes Status: Acute Qualifiers: Congestive heart failure type: systolic Congestive heart failure chronicity : acute on chronic Qualified Code(s): I50.23 - Acute on chronic systolic ( congestive) heart failure Plan to address problem: - continue diuresis - continue chronic home meds (3) AIDS Current Visit: No Status: Acute Plan to address problem: - continue HAART - CD4 count decent (>300) (4) Diabetes Current Visit: No Status: Acute Qualifiers: Diabetes mellitus type: D Diabetes mellitus complication status: D Diabetes mellitus complication detail: D Diabetic retinopathy severity: D Proliferative retinopathy type: P Diabetes mellitus macular edema: D Diabetes mellitus nursing home insulin use: D Laterality: L Chronic kidney disease stage: C Plan to address problem: - continue detemir (24units sq qd) - continue SSI Subjective Date of service: 02/20/17 Principal diagnosis: Acute COPD exacerbation Interval history: Seen and examined at bedside; 24 hour events reviewed; nursing and respiratory care staff consulted; no adverse overnight events reported to me; feels better; denies acute chest pains or increased SOB; in good spirits Objective Vital Signs - 12hr 02/20/17 02/20/17 02/20/17 04:12 04:31 08:00 Temperature 98.1 F 97.4 F L Pulse Rate 90 Pulse Rate [ Anterior Bilateral Throughout] Pulse Rate [ 105 H 95 H Left] Respiratory 20 20 Rate Respiratory 20 Rate [Abdomen] Respiratory Rate [Anterior Bilateral Throughout] Respiratory 20 Rate [Back] Respiratory 20 Rate [ Generalized] Blood Pressure 131/85 142/83 [Left Arm] O2 Sat by Pulse 99 95 Oximetry 02/20/17 02/20/17 02/20/17 09:00 09:31 09:39 Temperature Pulse Rate Pulse Rate [ 119 H 105 H Anterior Bilateral Throughout] Pulse Rate [ Left] Respiratory Rate Respiratory Rate [Abdomen] Respiratory 20 20 Rate [Anterior Bilateral Throughout] Respiratory Rate [Back] Respiratory Rate [ Generalized] Blood Pressure [Left Arm] O2 Sat by Pulse 97 Oximetry 02/20/17 02/20/17 12:00 13:54 Temperature 97.6 F Pulse Rate 93 H Pulse Rate [ 102 H Anterior Bilateral Throughout] Pulse Rate [ 102 H Left] Respiratory 18 Rate Respiratory Rate [Abdomen] Respiratory 24 Rate [Anterior Bilateral Throughout] Respiratory Rate [Back] Respiratory Rate [ Generalized] Blood Pressure 142/94 [Left Arm] O2 Sat by Pulse 98 Oximetry Constitutional: no acute distress, alert Eyes: non-icteric ENT: oropharynx moist Neck: supple, no lymphadenopathy Effort: mildly labored Ascultation: Bilateral: diminished breath sounds, wheezes (expiratory (? glottic component)) Cardiovascular: regular rate and rhythm Gastrointestinal: normoactive bowel sounds, soft, non-tender, non-distended Integumentary: normal Extremities: no cyanosis, no edema, pulses normal, no ischemia or petechiae Neurologic: normal mental status, non-focal exam, pupils equal and round, motor strength normal and Psychiatric: mood appropriate, affect normal CBC and BMP: 02/19/17 07:07 02/19/17 07:07 ABG, PT/INR, D-dimer: ABG POC ABG pH 7.422 (7.35-7.45) 02/18/17 09:27 POC ABG pCO2 38.7 (35-45) 02/18/17 09:27 POC ABG pO2 71 (80-105) L 02/18/17 09:27 POC ABG HCO3 25.2 02/18/17 09:27 POC ABG Total CO2 26 02/18/17 09:27 POC ABG O2 Sat 94 02/18/17 09:27 Abnormal lab findings: Abnormal Labs 02/18/17 02/18/17 02/18/17 11:48 12:57 16:25 RBC RDW [place] % (Auto) Lymph # Seg Neutrophils % Glucose POC Glucose 311 H 348 H 162 H 02/18/17 02/19/17 02/19/17 21:52 07:07 07:07 RBC 3.48 L RDW 20.9 H [place] % (Auto) 8.9 H Lymph # 0.8 L Seg Neutrophils % 77.0 H Glucose 253 H POC Glucose 212 H 02/19/17 02/19/17 02/19/17 07:23 11:42 16:05 RBC RDW [place] % (Auto) Lymph # Seg Neutrophils % Glucose POC Glucose 291 H 126 H 208 H 06/30/17 22:04 RBC RDW [place] % (Auto) Lymph # Seg Neutrophils % Glucose POC Glucose 225 H
[2017-02-20] MEDS ORDERED: MONISTAT VG SCH ×2 (22:00→23:00)
[2017-02-20] MEDS: LEVEMIR SUB-Q SCH (22:15)
[2017-02-20] MEDS: DILANTIN PO SCH (22:16)
[2017-02-20] MEDS: HYDROCORTISONE CR TP SCH (23:43)
[2017-02-21] MEDS: DUONEB 0.5 MG-3 MG/3 ML SOLN IH SCH ×4 (03:00→21:39)
[2017-02-21] MEDS: NOVOLOG SUB-Q SCH ×4 (08:00→23:07)
[2017-02-21] MEDS: LEVAQUIN PO SCH (09:43)
[2017-02-21] MEDS: PERCOCET 5/325 PO PRN (09:43)
[2017-02-21] MEDS: VIREAD PO SCH (09:43)
[2017-02-21] MEDS: NORVASC PO SCH (09:43)
[2017-02-21] MEDS: ISENTRESS PO SCH ×2 (09:43→21:19)
[2017-02-21] MEDS: PEPCID PO SCH (09:43)
[2017-02-21] MEDS: MILK OF MAGNESIA PO PRN (09:43)
[2017-02-21] MEDS: LOVENOX SUB-Q SCH (09:43)
[2017-02-21] MEDS: HYDROCORTISONE CR TP SCH ×2 (09:47→23:06)
[2017-02-21] MEDS: PULMICORT IH SCH ×2 (09:56→21:43)
[2017-02-21] MEDS: BROVANA NEBU IH SCH ×2 (09:56→21:48)
--- NOTE | 2017-02-21 09:57 | Discharge Summary ---
Providers - Providers Date of Admission: 02/18/17 10:16 Attending physician: DIONNA CASTAÑEDA MD 02/18/17 11:03 Consult to Physician [CONS] Routine Consulting Provider: RONI GATES Reason For Exam: COPD Place consult to:: DR GATES Notified:: DR GATES Primary care physician: [employer] [facility] Hospitalization Condition: Serious Hospital course: 61-year-old woman with past medical history of COPD, HIV AIDS CD4 count of 344, on HAART, CHF diastolic, type 2 diabetes insulin-dependent, seizure disorder, schizoaffective disorder, who was just in hospital and treated for COPD exacerbation and discharged 2 days prior to presentation who presents for shortness of breath coughing wheezing, and lower extremity swelling. Acute respiratory failure was using accessory muscles at time of triage she received supplemental oxygen, and was rx for COPD COPD with exacerbation she received IV steroids, aggressive nebulizer treatment and antibiotics she was seen in conjunction with Pulmonology, she clinically improved, she was weaned to room air, and was transitioned to oral meds. Her COPD maintenance meds were optimized prior to dc Acute on chronic diastolic heart failure she received IV lasix, and was transtioned to Insulin-dependent diabetes 2 she was Continued home insulin along with sliding scale insulin Hypertension she was continued on her home medication Schizoaffective disorder we Continued her behavioral medications Seizure disorder we Continued her home AEDs Vaginal yeast infection she was treated with miconazole pessary DVT prophylaxis she received Lovenox Disposition: DC-01 TO HOME OR SELFCARE Time spent for discharge: 33 minutes Core Measure Documentation - Palliative Care Palliative Care/ Comfort Measures: Not Applicable - Core Measures Any of the following diagnoses?: none Exam - Constitutional Vitals: Temp Pulse Resp BP Pulse Ox 98.2 F 93 H 20 123/91 98 02/21/17 04:05 02/21/17 06:13 02/21/17 06:13 02/21/17 04:05 02/21/17 04:05 General appearance: Present: no acute distress, well-nourished - EENT Eyes: Present: PERRL ENT: hearing intact, clear oral mucosa - Neck Neck: Present: supple, normal ROM - Respiratory Respiratory effort: normal Respiratory: bilateral: CTA - Cardiovascular Heart Sounds: Present: S1 & S2. Absent: rub, click - Extremities Extremities: pulses symmetrical, No edema Peripheral Pulses: within normal limits - Abdominal General gastrointestinal: Present: soft, non-tender, non-distended, normal bowel sounds Female genitourinary: Present: normal - Integumentary Integumentary: Present: clear, warm, dry - Musculoskeletal Musculoskeletal: gait normal, strength equal bilaterally - Psychiatric Psychiatric: appropriate mood/affect, intact judgment & insight - Neurologic Neurologic: CNII-XII intact, moves all extremities Plan Follow up with: PRIMARY CARE,MD [Primary Care Provider] - 3-5 Days Prescriptions: Insulin Detemir [Levemir] 24 units SUB-Q QHS #1 vial Insulin Detemir [Levemir] 24 units SUB-Q QHS #1 vial Miconazole 2% [Monistat 7 Vag Cream] 1 applicator VG QHS #1 tube amLODIPine [Norvasc] 5 mg PO QDAY #30 tablet Arformoterol Nebu [Brovana Nebu] 15 mcg IH Q12HRT #60 neb Benzonatate [Tessalon Perles] 100 mg PO Q8HR #90 capsule Budesonide [Pulmicort Respules] 0.25 mg IH Q12HRT #60 nebu Furosemide [Lasix TAB] 40 mg PO QDAY #30 tablet Levofloxacin [Levaquin TAB] 750 mg PO QDAY #5 tablet predniSONE [Deltasone] 10 mg PO .TAPER #48 tab Tiotropium [place] [Spiriva Respimat] 4 gm IH DAILY #1 mist.inhal Ipratropium/Albuterol Sulfate [Duoneb 0.5 mg-3 mg/3 ml Soln] 1 ampul IH TIDRT # 180 ampul.neb
[2017-02-21] MEDS: EMTRIVA PO SCH (11:12)
[2017-02-21] MEDS: LASIX IV SCH (11:19)
--- NOTE | 2017-02-21 15:36 | Progress Note ---
Assessment and Plan (1) Acute exacerbation of chronic obstructive pulmonary disease (COPD) Current Visit: Yes Status: Acute Plan to address problem: - continue systemic steroids but begin taper - continue QUEENIE, LABA & ICS - supplemental oxygen to keep sats > 94% - prn BIPAP - continue empiric Antibiotics (2) CHF (congestive heart failure) Current Visit: Yes Status: Acute Qualifiers: Congestive heart failure type: systolic Congestive heart failure chronicity : acute on chronic Qualified Code(s): I50.23 - Acute on chronic systolic ( congestive) heart failure Plan to address problem: - continue diuresis - continue chronic home meds (3) AIDS Current Visit: No Status: Acute Plan to address problem: - continue HAART - CD4 count decent (>300) (4) Diabetes Current Visit: No Status: Acute Qualifiers: Diabetes mellitus type: D Diabetes mellitus complication status: D Diabetes mellitus complication detail: D Diabetic retinopathy severity: D Proliferative retinopathy type: P Diabetes mellitus macular edema: D Diabetes mellitus care home insulin use: D Laterality: L Chronic kidney disease stage: C Plan to address problem: - continue detemir (24units sq qd) - continue SSI Subjective Date of service: 02/21/17 Principal diagnosis: Acute COPD exacerbation Interval history: Seen and examined at bedside; 24 hour events reviewed; nursing and respiratory care staff consulted; no adverse overnight events reported to me; looks and feels better; denies acute chest pains or increased SOB Objective Vital Signs - 12hr 02/21/17 02/21/17 02/21/17 04:05 06:13 07:00 Temperature 98.2 F 97.7 F Pulse Rate 93 H Pulse Rate [ Anterior Bilateral Throughout] Pulse Rate [ 97 H 93 H Left] Respiratory 20 18 Rate Respiratory Rate [Anterior Bilateral Throughout] Respiratory 20 Rate [Back] Respiratory 20 Rate [ Generalized] Blood Pressure 123/91 178/96 [Left Arm] O2 Sat by Pulse 98 95 Oximetry 02/21/17 02/21/17 02/21/17 09:53 10:08 10:22 Temperature Pulse Rate Pulse Rate [ 105 H 102 H Anterior Bilateral Throughout] Pulse Rate [ 102 H Left] Respiratory 18 Rate Respiratory 20 20 Rate [Anterior Bilateral Throughout] Respiratory Rate [Back] Respiratory Rate [ Generalized] Blood Pressure [Left Arm] O2 Sat by Pulse 98 95 Oximetry 02/21/17 02/21/17 10:34 13:00 Temperature 97.6 F Pulse Rate 93 H Pulse Rate [ Anterior Bilateral Throughout] Pulse Rate [ 96 H Left] Respiratory 18 Rate Respiratory Rate [Anterior Bilateral Throughout] Respiratory Rate [Back] Respiratory Rate [ Generalized] Blood Pressure 162/84 [Left Arm] O2 Sat by Pulse 99 Oximetry Constitutional: no acute distress, alert Eyes: non-icteric ENT: oropharynx moist Neck: supple, no lymphadenopathy Effort: mildly labored Ascultation: Bilateral: diminished breath sounds, wheezes (expiratory (? glottic component)) Cardiovascular: regular rate and rhythm Gastrointestinal: normoactive bowel sounds, soft, non-tender, non-distended Integumentary: normal Extremities: no cyanosis, no edema, pulses normal, no ischemia or petechiae Neurologic: normal mental status, non-focal exam, pupils equal and round, motor strength normal and Psychiatric: mood appropriate, affect normal CBC and BMP: 02/19/17 07:07 02/19/17 07:07 ABG, PT/INR, D-dimer: ABG POC ABG pH 7.422 (7.35-7.45) 02/18/17 09:27 POC ABG pCO2 38.7 (35-45) 02/18/17 09:27 POC ABG pO2 71 (80-105) L 02/18/17 09:27 POC ABG HCO3 25.2 02/18/17 09:27 POC ABG Total CO2 26 02/18/17 09:27 POC ABG O2 Sat 94 02/18/17 09:27 Abnormal lab findings: Abnormal Labs 02/18/17 02/18/17 02/18/17 11:48 12:57 16:25 RBC RDW [place] % (Auto) Lymph # Seg Neutrophils % Glucose POC Glucose 311 H 348 H 162 H 02/18/17 02/19/17 02/19/17 21:52 07:07 07:07 RBC 3.48 L RDW 20.9 H [place] % (Auto) 8.9 H Lymph # 0.8 L Seg Neutrophils % 77.0 H Glucose 253 H POC Glucose 212 H 02/19/17 02/19/17 02/19/17 07:23 11:42 16:05 RBC RDW [place] % (Auto) Lymph # Seg Neutrophils % Glucose POC Glucose 291 H 126 H 208 H 02/19/17 02/20/17 02/20/17 22:04 08:20 21:16 RBC RDW [place] % (Auto) Lymph # Seg Neutrophils % Glucose POC Glucose 225 H 236 H 152 H
--- NOTE | 2017-02-21 16:04 | Progress Note ---
Assessment and Plan Assessment and plan: 61-year-old woman with past medical history of COPD, HIV AIDS CD4 count of 344, and Pedro, CHF diastolic, type 2 diabetes insulin-dependent, seizure disorder, schizoaffective disorder, who was just in hospital and treated for COPD exacerbation and discharged 2 days prior to presentation who presents for shortness of breath coughing wheezing Acute respiratory failure was using accessory muscles at time of triage continue supplemental oxygen and treat underlying cause COPD with exacerbation IV steroids, aggressive nebulizer treatment and antibiotics Pulmonology consult. Acute on chronic diastolic heart failure Lasix IV twice a day, optimize medications Insulin-dependent diabetes 2 Continue home insulin along with sliding scale insulin Hypertension Continue home medication Schizoaffective disorder Continue her behavioral medications Seizure disorder Continue her home AEDs Vaginal yeast infection miconazole pessary x7 days DVT prophylaxis Lovenox History Interval history: sob, cough and wheezing is improved, vaginal discomfort is improved Hospitalist Physical - Physical exam Narrative exam: General: Patient appears well in no distress HEENT: MMM, EOMI cardiac: S1-S2 heard lungs: wheezing, improved air entry abdomen: soft, nontender, nondistended bowel sounds positive extremities: trace bipedal edema Skin: no rash or lesion Neuro: no focal deficit Psych: appropriate behavior and mood, cognition intact - Constitutional Vitals: Temp Pulse Resp BP Pulse Ox 97.6 F 96 H 18 162/84 99 02/21/17 13:00 02/21/17 13:00 02/21/17 13:00 02/21/17 13:00 02/21/17 13:00 General appearance: Present: no acute distress, well-nourished Results - Labs CBC & Chem 7: 02/19/17 07:07 02/19/17 07:07 Labs: Laboratory Last Values WBC 5.9 K/mm3 (4.5-11.0) 02/19/17 07:07 RBC 3.48 M/mm3 (3.65-5.03) L 02/19/17 07:07 Hgb 10.5 gm/dl (10.1-14.3) 02/19/17 07:07 Hct 32.4 % (30.3-42.9) 02/19/17 07:07 MCV 93 fl (79-97) 02/19/17 07:07 MCH 30 pg (28-32) 02/19/17 07:07 MCHC 32 % (30-34) 02/19/17 07:07 RDW 20.9 % (13.2-15.2) H 02/19/17 07:07 Plt Count 180 K/mm3 (140-440) 02/19/17 07:07 Lymph % (Auto) 14.1 % (13.4-35.0) 02/19/17 07:07 [place] % (Auto) 8.9 % (0.0-7.3) H 02/19/17 07:07 Eos % (Auto) 0.0 % (0.0-4.3) 02/19/17 07:07 Baso % (Auto) 0.0 % (0.0-1.8) 02/19/17 07:07 Lymph # 0.8 K/mm3 (1.2-5.4) L 02/19/17 07:07 [place] # 0.5 K/mm3 (0.0-0.8) 02/19/17 07:07 Eos # 0.0 K/mm3 (0.0-0.4) 02/19/17 07:07 Baso # 0.0 K/mm3 (0.0-0.1) 02/19/17 07:07 Add Manual Diff Complete 02/17/17 22:10 Total Counted 100 02/17/17 22:10 Seg Neutrophils % 77.0 % (40.0-70.0) H 02/19/17 07:07 Seg Neuts % (Manual) 64.0 % (40.0-70.0) 02/17/17 22:10 Band Neutrophils % 0 % 02/17/17 22:10 Lymphocytes % (Manual) 29.0 % (13.4-35.0) 02/17/17 22:10 Reactive Lymphs % (Man) 0 % 02/17/17 22:10 Monocytes % (Manual) 7.0 % (0.0-7.3) 02/17/17 22:10 Eosinophils % (Manual) 0 % (0.0-4.3) 02/17/17 22:10 Basophils % (Manual) 0 % (0.0-1.8) 02/17/17 22:10 Metamyelocytes % 0 % 02/17/17 22:10 Myelocytes % 0 % 02/17/17 22:10 Promyelocytes % 0 % 02/17/17 22:10 Blast Cells % 0 % 02/17/17 22:10 Nucleated RBC % Not Reportable 02/17/17 22:10 Seg Neutrophils # 4.5 K/mm3 (1.8-7.7) 02/19/17 07:07 Seg Neutrophils # Man 3.1 K/mm3 (1.8-7.7) 02/17/17 22:10 Band Neutrophils # 0.0 K/mm3 02/17/17 22:10 Lymphocytes # (Manual) 1.4 K/mm3 (1.2-5.4) 02/17/17 22:10 Abs React Lymphs (Man) 0.0 K/mm3 02/17/17 22:10 Monocytes # (Manual) 0.3 K/mm3 (0.0-0.8) 02/17/17 22:10 Eosinophils # (Manual) 0.0 K/mm3 (0.0-0.4) 02/17/17 22:10 Basophils # (Manual) 0.0 K/mm3 (0.0-0.1) 02/17/17 22:10 Metamyelocytes # 0.0 K/mm3 02/17/17 22:10 Myelocytes # 0.0 K/mm3 02/17/17 22:10 Promyelocytes # 0.0 K/mm3 02/17/17 22:10 Blast Cells # 0.0 K/mm3 02/17/17 22:10 WBC Morphology Not Reportable 02/17/17 22:10 Hypersegmented Neuts Not Reportable 02/17/17 22:10 Hyposegmented Neuts Not Reportable 02/17/17 22:10 Hypogranular Neuts Not Reportable 02/17/17 22:10 Smudge Cells Not Reportable 02/17/17 22:10 Toxic Granulation Not Reportable 02/17/17 22:10 Toxic Vacuolation Not Reportable 02/17/17 22:10 Dohle Bodies Not Reportable 02/17/17 22:10 Pelger-Huet Anomaly Not Reportable 02/17/17 22:10 Susan Rods Not Reportable 02/17/17 22:10 Platelet Estimate Consistent w auto 02/17/17 22:10 Clumped Platelets Not Reportable 02/17/17 22:10 Plt Clumps, EDTA Not Reportable 02/17/17 22:10 Large Platelets Not Reportable 02/17/17 22:10 Giant Platelets Not Reportable 02/17/17 22:10 Platelet Satelliting Not Reportable 02/17/17 22:10 Plt Morphology Comment Not Reportable 02/17/17 22:10 RBC Morphology Not Reportable 02/17/17 22:10 Dimorphic RBCs Not Reportable 02/17/17 22:10 Polychromasia Not Reportable 02/17/17 22:10 Hypochromasia 1+ 02/17/17 22:10 Poikilocytosis Not Reportable 02/17/17 22:10 Anisocytosis 1+ 02/17/17 22:10 Microcytosis Not Reportable 02/17/17 22:10 Macrocytosis Not Reportable 02/17/17 22:10 Spherocytes Not Reportable 02/17/17 22:10 Pappenheimer Bodies Not Reportable 02/17/17 22:10 Sickle Cells Not Reportable 02/17/17 22:10 Target Cells Not Reportable 02/17/17 22:10 Tear Drop Cells Not Reportable 02/17/17 22:10 Ovalocytes 1+ 02/17/17 22:10 Helmet Cells Not Reportable 02/17/17 22:10 [place] Bodies Not Reportable 02/17/17 22:10 [place] Rings Not Reportable 02/17/17 22:10 Aileen Cells Not Reportable 02/17/17 22:10 Bite Cells Not Reportable 02/17/17 22:10 Crenated Cell Not Reportable 02/17/17 22:10 Elliptocytes Not Reportable 02/17/17 22:10 Acanthocytes (Spur) Not Reportable 02/17/17 22:10 Rouleaux Not Reportable 02/17/17 22:10 Hemoglobin C Crystals Not Reportable 02/17/17 22:10 Schistocytes Not Reportable 02/17/17 22:10 Malaria parasites Not Reportable 02/17/17 22:10 Barry Bodies Not Reportable 02/17/17 22:10 Hem Pathologist Commnt No 02/17/17 22:10 POC ABG pH 7.422 (7.35-7.45) 02/18/17 09:27 POC ABG pCO2 38.7 (35-45) 02/18/17 09:27 POC ABG pO2 71 (80-105) L 02/18/17 09:27 POC ABG HCO3 25.2 02/18/17 09:27 POC ABG Total CO2 26 02/18/17 09:27 POC ABG O2 Sat 94 02/18/17 09:27 POC ABG Base Excess 1 02/18/17 09:27 FiO2 21 % 02/18/17 09:27 Sodium 139 mmol/L (137-145) 02/19/17 07:07 Potassium 4.5 mmol/L (3.6-5.0) D 02/19/17 07:07 Chloride 98.3 mmol/L (98-107) 02/19/17 07:07 Carbon Dioxide 25 mmol/L (22-30) 02/19/17 07:07 Anion Gap 20 mmol/L 02/19/17 07:07 BUN 15 mg/dL (7-17) 02/19/17 07:07 Creatinine 0.8 mg/dL (0.7-1.2) 02/19/17 07:07 Estimated GFR > 60 ml/min 02/19/17 07:07 BUN/Creatinine Ratio 18.75 % 02/19/17 07:07 Glucose 253 mg/dL (65-100) H 02/19/17 07:07 POC Glucose 152 (70-105) H 02/20/17 21:16 Calcium 8.7 mg/dL (8.4-10.2) 02/19/17 07:07 Troponin T < 0.010 ng/mL (0.00-0.029) 02/17/17 22:10
[2017-02-21] MEDS: MONISTAT VG SCH (21:18)
[2017-02-21] MEDS: TESSALON PERLES PO SCH (21:20)
[2017-02-21] MEDS: DILANTIN PO SCH (21:20)
[2017-02-21] MEDS: LEVEMIR SUB-Q SCH (22:59)
[2017-02-22] MEDS: DUONEB 0.5 MG-3 MG/3 ML SOLN IH SCH ×4 (03:40→20:22)
[2017-02-22] MEDS: TESSALON PERLES PO SCH ×3 (05:25→22:33)
[2017-02-22] MEDS: NOVOLOG SUB-Q SCH ×5 (08:37→22:36)
--- NOTE | 2017-02-22 09:22 | Progress Note ---
Assessment and Plan Assessment and plan: 61-year-old woman with past medical history of COPD, HIV AIDS CD4 count of 344, and Pedro, CHF diastolic, type 2 diabetes insulin-dependent, seizure disorder, schizoaffective disorder, who was just in hospital and treated for COPD exacerbation and discharged 2 days prior to presentation who presents for shortness of breath coughing wheezing Acute respiratory failure was using accessory muscles at time of triage continue supplemental oxygen and treat underlying cause COPD with exacerbation IV steroids, aggressive nebulizer treatment and antibiotics Pulmonology consult. Acute on chronic diastolic heart failure Lasix IV twice a day, optimize medications Insulin-dependent diabetes 2 Continue home insulin along with sliding scale insulin Hypertension Continue home medication Schizoaffective disorder Continue her behavioral medications Seizure disorder Continue her home AEDs Vaginal yeast infection miconazole pessary x7 days DVT prophylaxis Lovenox History Interval history: sob, cough and wheezing is improved, vaginal discomfort is improved Hospitalist Physical - Physical exam Narrative exam: General: Patient appears well in no distress HEENT: MMM, EOMI cardiac: S1-S2 heard lungs: wheezing, improved air entry abdomen: soft, nontender, nondistended bowel sounds positive extremities: trace bipedal edema Skin: no rash or lesion Neuro: no focal deficit Psych: appropriate behavior and mood, cognition intact - Constitutional Vitals: Temp Pulse Resp BP Pulse Ox 98.3 F 89 20 133/86 94 02/22/17 06:25 02/22/17 06:25 02/22/17 06:25 02/22/17 06:25 02/22/17 06:25 General appearance: Present: no acute distress, well-nourished Results - Labs CBC & Chem 7: 02/19/17 07:07 02/19/17 07:07 Labs: Laboratory Last Values WBC 5.9 K/mm3 (4.5-11.0) 02/19/17 07:07 RBC 3.48 M/mm3 (3.65-5.03) L 02/19/17 07:07 Hgb 10.5 gm/dl (10.1-14.3) 02/19/17 07:07 Hct 32.4 % (30.3-42.9) 02/19/17 07:07 MCV 93 fl (79-97) 02/19/17 07:07 MCH 30 pg (28-32) 02/19/17 07:07 MCHC 32 % (30-34) 02/19/17 07:07 RDW 20.9 % (13.2-15.2) H 02/19/17 07:07 Plt Count 180 K/mm3 (140-440) 02/19/17 07:07 Lymph % (Auto) 14.1 % (13.4-35.0) 02/19/17 07:07 [place] % (Auto) 8.9 % (0.0-7.3) H 02/19/17 07:07 Eos % (Auto) 0.0 % (0.0-4.3) 02/19/17 07:07 Baso % (Auto) 0.0 % (0.0-1.8) 02/19/17 07:07 Lymph # 0.8 K/mm3 (1.2-5.4) L 02/19/17 07:07 [place] # 0.5 K/mm3 (0.0-0.8) 02/19/17 07:07 Eos # 0.0 K/mm3 (0.0-0.4) 02/19/17 07:07 Baso # 0.0 K/mm3 (0.0-0.1) 02/19/17 07:07 Add Manual Diff Complete 02/17/17 22:10 Total Counted 100 02/17/17 22:10 Seg Neutrophils % 77.0 % (40.0-70.0) H 02/19/17 07:07 Seg Neuts % (Manual) 64.0 % (40.0-70.0) 02/17/17 22:10 Band Neutrophils % 0 % 02/17/17 22:10 Lymphocytes % (Manual) 29.0 % (13.4-35.0) 02/17/17 22:10 Reactive Lymphs % (Man) 0 % 02/17/17 22:10 Monocytes % (Manual) 7.0 % (0.0-7.3) 02/17/17 22:10 Eosinophils % (Manual) 0 % (0.0-4.3) 02/17/17 22:10 Basophils % (Manual) 0 % (0.0-1.8) 02/17/17 22:10 Metamyelocytes % 0 % 02/17/17 22:10 Myelocytes % 0 % 02/17/17 22:10 Promyelocytes % 0 % 02/17/17 22:10 Blast Cells % 0 % 02/17/17 22:10 Nucleated RBC % Not Reportable 02/17/17 22:10 Seg Neutrophils # 4.5 K/mm3 (1.8-7.7) 02/19/17 07:07 Seg Neutrophils # Man 3.1 K/mm3 (1.8-7.7) 02/17/17 22:10 Band Neutrophils # 0.0 K/mm3 02/17/17 22:10 Lymphocytes # (Manual) 1.4 K/mm3 (1.2-5.4) 02/17/17 22:10 Abs React Lymphs (Man) 0.0 K/mm3 02/17/17 22:10 Monocytes # (Manual) 0.3 K/mm3 (0.0-0.8) 02/17/17 22:10 Eosinophils # (Manual) 0.0 K/mm3 (0.0-0.4) 02/17/17 22:10 Basophils # (Manual) 0.0 K/mm3 (0.0-0.1) 02/17/17 22:10 Metamyelocytes # 0.0 K/mm3 02/17/17 22:10 Myelocytes # 0.0 K/mm3 02/17/17 22:10 Promyelocytes # 0.0 K/mm3 02/17/17 22:10 Blast Cells # 0.0 K/mm3 02/17/17 22:10 WBC Morphology Not Reportable 02/17/17 22:10 Hypersegmented Neuts Not Reportable 02/17/17 22:10 Hyposegmented Neuts Not Reportable 02/17/17 22:10 Hypogranular Neuts Not Reportable 02/17/17 22:10 Smudge Cells Not Reportable 02/17/17 22:10 Toxic Granulation Not Reportable 02/17/17 22:10 Toxic Vacuolation Not Reportable 02/17/17 22:10 Dohle Bodies Not Reportable 02/17/17 22:10 Pelger-Huet Anomaly Not Reportable 02/17/17 22:10 Susan Rods Not Reportable 02/17/17 22:10 Platelet Estimate Consistent w auto 02/17/17 22:10 Clumped Platelets Not Reportable 02/17/17 22:10 Plt Clumps, EDTA Not Reportable 02/17/17 22:10 Large Platelets Not Reportable 02/17/17 22:10 Giant Platelets Not Reportable 02/17/17 22:10 Platelet Satelliting Not Reportable 02/17/17 22:10 Plt Morphology Comment Not Reportable 02/17/17 22:10 RBC Morphology Not Reportable 02/17/17 22:10 Dimorphic RBCs Not Reportable 02/17/17 22:10 Polychromasia Not Reportable 02/17/17 22:10 Hypochromasia 1+ 02/17/17 22:10 Poikilocytosis Not Reportable 02/17/17 22:10 Anisocytosis 1+ 02/17/17 22:10 Microcytosis Not Reportable 02/17/17 22:10 Macrocytosis Not Reportable 02/17/17 22:10 Spherocytes Not Reportable 02/17/17 22:10 Pappenheimer Bodies Not Reportable 02/17/17 22:10 Sickle Cells Not Reportable 02/17/17 22:10 Target Cells Not Reportable 02/17/17 22:10 Tear Drop Cells Not Reportable 02/17/17 22:10 Ovalocytes 1+ 02/17/17 22:10 Helmet Cells Not Reportable 02/17/17 22:10 [place] Bodies Not Reportable 02/17/17 22:10 [place] Rings Not Reportable 02/17/17 22:10 [place] Cells Not Reportable 02/17/17 22:10 Bite Cells Not Reportable 02/17/17 22:10 Crenated Cell Not Reportable 02/17/17 22:10 Elliptocytes Not Reportable 02/17/17 22:10 Acanthocytes (Spur) Not Reportable 02/17/17 22:10 Rouleaux Not Reportable 02/17/17 22:10 Hemoglobin C Crystals Not Reportable 02/17/17 22:10 Schistocytes Not Reportable 02/17/17 22:10 Malaria parasites Not Reportable 02/17/17 22:10 Barry Bodies Not Reportable 02/17/17 22:10 Hem Pathologist Commnt No 02/17/17 22:10 POC ABG pH 7.422 (7.35-7.45) 02/18/17 09:27 POC ABG pCO2 38.7 (35-45) 02/18/17 09:27 POC ABG pO2 71 (80-105) L 02/18/17 09:27 POC ABG HCO3 25.2 02/18/17 09:27 POC ABG Total CO2 26 02/18/17 09:27 POC ABG O2 Sat 94 02/18/17 09:27 POC ABG Base Excess 1 02/18/17 09:27 FiO2 21 % 02/18/17 09:27 Sodium 139 mmol/L (137-145) 02/19/17 07:07 Potassium 4.5 mmol/L (3.6-5.0) D 02/19/17 07:07 Chloride 98.3 mmol/L (98-107) 02/19/17 07:07 Carbon Dioxide 25 mmol/L (22-30) 02/19/17 07:07 Anion Gap 20 mmol/L 02/19/17 07:07 BUN 15 mg/dL (7-17) 02/19/17 07:07 Creatinine 0.8 mg/dL (0.7-1.2) 02/19/17 07:07 Estimated GFR > 60 ml/min 02/19/17 07:07 BUN/Creatinine Ratio 18.75 % 02/19/17 07:07 Glucose 253 mg/dL (65-100) H 02/19/17 07:07 POC Glucose 212 (70-105) H 02/22/17 08:17 Calcium 8.7 mg/dL (8.4-10.2) 02/19/17 07:07 Troponin T < 0.010 ng/mL (0.00-0.029) 02/17/17 22:10
[2017-02-22] MEDS: PULMICORT IH SCH ×2 (09:40→20:22)
[2017-02-22] MEDS: BROVANA NEBU IH SCH ×2 (09:40→21:11)
[2017-02-22] MEDS: ISENTRESS PO SCH ×2 (09:47→22:33)
[2017-02-22] MEDS: PEPCID PO SCH (09:47)
[2017-02-22] MEDS: VIREAD PO SCH (09:47)
[2017-02-22] MEDS: LEVAQUIN PO SCH (09:47)
[2017-02-22] MEDS: LOVENOX SUB-Q SCH (09:48)
[2017-02-22] MEDS: NORVASC PO SCH (09:48)
[2017-02-22] MEDS: LASIX IV SCH (09:48)
[2017-02-22] MEDS: HYDROCORTISONE CR TP SCH (09:51)
[2017-02-22] MEDS: EMTRIVA PO SCH (11:56)
[2017-02-22] MEDS: PERCOCET 5/325 PO PRN (14:49)
[2017-02-22] MEDS: MUCOMYST INHALATION INHALATION SCH (20:27)
--- NOTE | 2017-02-22 21:23 | Progress Note ---
Assessment and Plan Patient complaining wheezing,shortness of breath and cough with productive yellow sputum.Afebrile. O2 saturation reported 100% on room air. - Patient Problems (1) Acute exacerbation of chronic obstructive pulmonary disease (COPD) Current Visit: Yes Status: Acute Plan to address problem: 1. Albuterol/atrovent aerosol treatments q 6 hours. 2. Increase solumedral 100 mg I/V q 6 hours. 3. Continue Levaquine. 4. ContinueS/C Lovenox 5. Continue Famotidine. 6. O2 2 litres Prn for shortness of breath. (2) Acute bronchitis Current Visit: No Status: Acute Qualifiers: Bronchitis organism: B Plan to address problem: Continue Levaquine. (3) AIDS Current Visit: No Status: Acute Plan to address problem: Recommend to consult infectious diseases. Subjective Date of service: 02/22/17 Principal diagnosis: Acute COPD exacerbation Interval history: Patient complaining wheezing,shortness of breath and cough with productive yellow sputum.Afebrile. O2 saturation reported 100% on room air. Objective Vital Signs - 12hr 02/22/17 02/22/17 02/22/17 09:29 09:40 09:45 Temperature 99.1 F Pulse Rate [ 102 H Anterior Bilateral Throughout] Pulse Rate [ 101 H Left] Respiratory 20 Rate Respiratory 20 Rate [Anterior Bilateral Throughout] Blood Pressure 176/93 [Left Arm] O2 Sat by Pulse 97 97 Oximetry 02/22/17 02/22/17 02/22/17 09:59 13:46 13:52 Temperature Pulse Rate [ 101 H 94 H 95 H Anterior Bilateral Throughout] Pulse Rate [ Left] Respiratory Rate Respiratory 20 20 20 Rate [Anterior Bilateral Throughout] Blood Pressure [Left Arm] O2 Sat by Pulse Oximetry 02/22/17 02/22/17 02/22/17 16:15 19:34 20:24 Temperature 98.9 F 98.8 F Pulse Rate [ 117 H Anterior Bilateral Throughout] Pulse Rate [ Left] Respiratory 20 18 Rate Respiratory 18 Rate [Anterior Bilateral Throughout] Blood Pressure 150/102 91/52 [Left Arm] O2 Sat by Pulse 100 Oximetry Constitutional: no acute distress, alert Eyes: non-icteric ENT: oropharynx moist Neck: supple, no lymphadenopathy Effort: mildly labored Ascultation: Bilateral: diminished breath sounds, wheezes (Bilateral wheezing.) , rhonchi (Bilateral ronchi.) Cardiovascular: regular rate and rhythm Gastrointestinal: normoactive bowel sounds, soft, non-tender, non-distended Integumentary: normal Extremities: no cyanosis, no edema, pulses normal, no ischemia or petechiae Neurologic: normal mental status, non-focal exam, pupils equal and round, motor strength normal and Psychiatric: mood appropriate, affect normal CBC and BMP: 02/19/17 07:07 02/19/17 07:07 ABG, PT/INR, D-dimer: ABG POC ABG pH 7.422 (7.35-7.45) 02/18/17 09:27 POC ABG pCO2 38.7 (35-45) 02/18/17 09:27 POC ABG pO2 71 (80-105) L 02/18/17 09:27 POC ABG HCO3 25.2 02/18/17 09:27 POC ABG Total CO2 26 02/18/17 09:27 POC ABG O2 Sat 94 02/18/17 09:27 Abnormal lab findings: Abnormal Labs 02/18/17 02/18/17 02/18/17 11:48 12:57 16:25 RBC RDW [place] % (Auto) Lymph # Seg Neutrophils % Glucose POC Glucose 311 H 348 H 162 H 02/18/17 02/19/17 02/19/17 21:52 07:07 07:07 RBC 3.48 L RDW 20.9 H [place] % (Auto) 8.9 H Lymph # 0.8 L Seg Neutrophils % 77.0 H Glucose 253 H POC Glucose 212 H 02/19/17 02/19/17 02/19/17 07:23 11:42 16:05 RBC RDW [place] % (Auto) Lymph # Seg Neutrophils % Glucose POC Glucose 291 H 126 H 208 H 02/19/17 02/20/17 02/20/17 22:04 08:20 16:18 RBC RDW [place] % (Auto) Lymph # Seg Neutrophils % Glucose POC Glucose 225 H 236 H 318 H 02/20/17 02/21/17 02/21/17 21:16 08:02 17:04 RBC RDW [place] % (Auto) Lymph # Seg Neutrophils % Glucose POC Glucose 152 H 238 H 184 H 02/22/17 08:17 RBC RDW [place] % (Auto) Lymph # Seg Neutrophils % Glucose POC Glucose 212 H Chest x-ray: report reviewed (No acute cardiopulmonary process.), image reviewed
[2017-02-22] MEDS: DILANTIN PO SCH (22:32)
[2017-02-22] MEDS: LEVEMIR SUB-Q SCH (22:37)
[2017-02-23] MEDS: MONISTAT VG SCH ×2 (00:28→21:14)
[2017-02-23] MEDS: HYDROCORTISONE CR TP SCH ×3 (00:28→21:15)
[2017-02-23] MEDS: DUONEB 0.5 MG-3 MG/3 ML SOLN IH SCH ×4 (01:52→19:37)
[2017-02-23] MEDS: MUCOMYST INHALATION INHALATION SCH ×4 (03:55→19:37)
[2017-02-23] MEDS: TESSALON PERLES PO SCH ×3 (06:51→21:15)
--- NOTE | 2017-02-23 09:32 | Progress Note ---
Assessment and Plan Assessment and plan: 61-year-old woman with past medical history of COPD, HIV AIDS CD4 count of 344, and Pedro, CHF diastolic, type 2 diabetes insulin-dependent, seizure disorder, schizoaffective disorder, who was just in hospital and treated for COPD exacerbation and discharged 2 days prior to presentation who presents for shortness of breath coughing wheezing Acute respiratory failure was using accessory muscles at time of triage continue supplemental oxygen and treat underlying cause COPD with exacerbation IV steroids dose was increased by pulmonology yesterday, continue aggressive nebulizer treatment and antibiotics Pulmonology consult. Acute on chronic diastolic heart failure Lasix IV twice a day, optimize medications Insulin-dependent diabetes 2 Continue home insulin along with sliding scale insulin Hypertension Continue home medication Schizoaffective disorder Continue her behavioral medications Seizure disorder Continue her home AEDs Vaginal yeast infection miconazole pessary x7 days DVT prophylaxis Lovenox History Interval history: sob, cough and wheezing is improved, vaginal discomfort is improved Hospitalist Physical - Physical exam Narrative exam: General: Patient appears well in no distress HEENT: MMM, EOMI cardiac: S1-S2 heard lungs: wheezing, improved air entry abdomen: soft, nontender, nondistended bowel sounds positive extremities: trace bipedal edema Skin: no rash or lesion Neuro: no focal deficit Psych: appropriate behavior and mood, cognition intact - Constitutional Vitals: Temp Pulse Resp BP Pulse Ox 99.3 F 110 H 20 116/86 95 02/23/17 07:00 02/23/17 07:00 02/23/17 07:00 02/23/17 07:00 02/23/17 07:00 General appearance: Present: no acute distress, well-nourished Results - Labs CBC & Chem 7: 02/19/17 07:07 02/19/17 07:07 Labs: Laboratory Last Values WBC 5.9 K/mm3 (4.5-11.0) 02/19/17 07:07 RBC 3.48 M/mm3 (3.65-5.03) L 02/19/17 07:07 Hgb 10.5 gm/dl (10.1-14.3) 02/19/17 07:07 Hct 32.4 % (30.3-42.9) 02/19/17 07:07 MCV 93 fl (79-97) 02/19/17 07:07 MCH 30 pg (28-32) 02/19/17 07:07 MCHC 32 % (30-34) 02/19/17 07:07 RDW 20.9 % (13.2-15.2) H 02/19/17 07:07 Plt Count 180 K/mm3 (140-440) 02/19/17 07:07 Lymph % (Auto) 14.1 % (13.4-35.0) 02/19/17 07:07 [place] % (Auto) 8.9 % (0.0-7.3) H 02/19/17 07:07 Eos % (Auto) 0.0 % (0.0-4.3) 02/19/17 07:07 Baso % (Auto) 0.0 % (0.0-1.8) 02/19/17 07:07 Lymph # 0.8 K/mm3 (1.2-5.4) L 02/19/17 07:07 [place] # 0.5 K/mm3 (0.0-0.8) 02/19/17 07:07 Eos # 0.0 K/mm3 (0.0-0.4) 02/19/17 07:07 Baso # 0.0 K/mm3 (0.0-0.1) 02/19/17 07:07 Add Manual Diff Complete 02/17/17 22:10 Total Counted 100 02/17/17 22:10 Seg Neutrophils % 77.0 % (40.0-70.0) H 02/19/17 07:07 Seg Neuts % (Manual) 64.0 % (40.0-70.0) 02/17/17 22:10 Band Neutrophils % 0 % 02/17/17 22:10 Lymphocytes % (Manual) 29.0 % (13.4-35.0) 02/17/17 22:10 Reactive Lymphs % (Man) 0 % 02/17/17 22:10 Monocytes % (Manual) 7.0 % (0.0-7.3) 02/17/17 22:10 Eosinophils % (Manual) 0 % (0.0-4.3) 02/17/17 22:10 Basophils % (Manual) 0 % (0.0-1.8) 02/17/17 22:10 Metamyelocytes % 0 % 02/17/17 22:10 Myelocytes % 0 % 02/17/17 22:10 Promyelocytes % 0 % 02/17/17 22:10 Blast Cells % 0 % 02/17/17 22:10 Nucleated RBC % Not Reportable 02/17/17 22:10 Seg Neutrophils # 4.5 K/mm3 (1.8-7.7) 02/19/17 07:07 Seg Neutrophils # Man 3.1 K/mm3 (1.8-7.7) 02/17/17 22:10 Band Neutrophils # 0.0 K/mm3 02/17/17 22:10 Lymphocytes # (Manual) 1.4 K/mm3 (1.2-5.4) 02/17/17 22:10 Abs React Lymphs (Man) 0.0 K/mm3 02/17/17 22:10 Monocytes # (Manual) 0.3 K/mm3 (0.0-0.8) 02/17/17 22:10 Eosinophils # (Manual) 0.0 K/mm3 (0.0-0.4) 02/17/17 22:10 Basophils # (Manual) 0.0 K/mm3 (0.0-0.1) 02/17/17 22:10 Metamyelocytes # 0.0 K/mm3 02/17/17 22:10 Myelocytes # 0.0 K/mm3 02/17/17 22:10 Promyelocytes # 0.0 K/mm3 02/17/17 22:10 Blast Cells # 0.0 K/mm3 02/17/17 22:10 WBC Morphology Not Reportable 02/17/17 22:10 Hypersegmented Neuts Not Reportable 02/17/17 22:10 Hyposegmented Neuts Not Reportable 02/17/17 22:10 Hypogranular Neuts Not Reportable 02/17/17 22:10 Smudge Cells Not Reportable 02/17/17 22:10 Toxic Granulation Not Reportable 02/17/17 22:10 Toxic Vacuolation Not Reportable 02/17/17 22:10 Dohle Bodies Not Reportable 02/17/17 22:10 Pelger-Huet Anomaly Not Reportable 02/17/17 22:10 Susan Rods Not Reportable 02/17/17 22:10 Platelet Estimate Consistent w auto 02/17/17 22:10 Clumped Platelets Not Reportable 02/17/17 22:10 Plt Clumps, EDTA Not Reportable 02/17/17 22:10 Large Platelets Not Reportable 02/17/17 22:10 Giant Platelets Not Reportable 02/17/17 22:10 Platelet Satelliting Not Reportable 02/17/17 22:10 Plt Morphology Comment Not Reportable 02/17/17 22:10 RBC Morphology Not Reportable 02/17/17 22:10 Dimorphic RBCs Not Reportable 02/17/17 22:10 Polychromasia Not Reportable 02/17/17 22:10 Hypochromasia 1+ 02/17/17 22:10 Poikilocytosis Not Reportable 02/17/17 22:10 Anisocytosis 1+ 02/17/17 22:10 Microcytosis Not Reportable 02/17/17 22:10 Macrocytosis Not Reportable 02/17/17 22:10 Spherocytes Not Reportable 02/17/17 22:10 Pappenheimer Bodies Not Reportable 02/17/17 22:10 Sickle Cells Not Reportable 02/17/17 22:10 Target Cells Not Reportable 02/17/17 22:10 Tear Drop Cells Not Reportable 02/17/17 22:10 Ovalocytes 1+ 02/17/17 22:10 Helmet Cells Not Reportable 02/17/17 22:10 [place] Bodies Not Reportable 02/17/17 22:10 [place] Rings Not Reportable 02/17/17 22:10 [place] Cells Not Reportable 02/17/17 22:10 Bite Cells Not Reportable 02/17/17 22:10 Crenated Cell Not Reportable 02/17/17 22:10 Elliptocytes Not Reportable 02/17/17 22:10 Acanthocytes (Spur) Not Reportable 02/17/17 22:10 Rouleaux Not Reportable 02/17/17 22:10 Hemoglobin C Crystals Not Reportable 02/17/17 22:10 Schistocytes Not Reportable 02/17/17 22:10 Malaria parasites Not Reportable 02/17/17 22:10 [place] Bodies Not Reportable 02/17/17 22:10 Hem Pathologist Commnt No 02/17/17 22:10 POC ABG pH 7.422 (7.35-7.45) 02/18/17 09:27 POC ABG pCO2 38.7 (35-45) 02/18/17 09:27 POC ABG pO2 71 (80-105) L 02/18/17 09:27 POC ABG HCO3 25.2 02/18/17 09:27 POC ABG Total CO2 26 02/18/17 09:27 POC ABG O2 Sat 94 02/18/17 09:27 POC ABG Base Excess 1 02/18/17 09:27 FiO2 21 % 02/18/17 09:27 Sodium 139 mmol/L (137-145) 02/19/17 07:07 Potassium 4.5 mmol/L (3.6-5.0) D 02/19/17 07:07 Chloride 98.3 mmol/L (98-107) 02/19/17 07:07 Carbon Dioxide 25 mmol/L (22-30) 02/19/17 07:07 Anion Gap 20 mmol/L 02/19/17 07:07 BUN 15 mg/dL (7-17) 02/19/17 07:07 Creatinine 0.8 mg/dL (0.7-1.2) 02/19/17 07:07 Estimated GFR > 60 ml/min 02/19/17 07:07 BUN/Creatinine Ratio 18.75 % 02/19/17 07:07 Glucose 253 mg/dL (65-100) H 02/19/17 07:07 POC Glucose 232 (70-105) H 02/23/17 05:28 Calcium 8.7 mg/dL (8.4-10.2) 02/19/17 07:07 Troponin T < 0.010 ng/mL (0.00-0.029) 02/17/17 22:10
[2017-02-23] MEDS: NORVASC PO SCH (09:38)
[2017-02-23] MEDS: PEPCID PO SCH (09:38)
[2017-02-23] MEDS: LEVAQUIN PO SCH (09:38)
[2017-02-23] MEDS: LASIX IV SCH (09:39)
[2017-02-23] MEDS: ISENTRESS PO SCH ×2 (09:39→21:15)
[2017-02-23] MEDS: EMTRIVA PO SCH (09:39)
[2017-02-23] MEDS: LOVENOX SUB-Q SCH (09:39)
[2017-02-23] MEDS: VIREAD PO SCH (09:39)
[2017-02-23] MEDS: NOVOLOG SUB-Q SCH ×4 (09:40→22:35)
[2017-02-23] MEDS: PERCOCET 5/325 PO PRN ×2 (09:47→18:29)
[2017-02-23] MEDS: BROVANA NEBU IH SCH ×2 (09:56→19:41)
[2017-02-23] MEDS: PULMICORT IH SCH ×2 (09:57→19:38)
--- NOTE | 2017-02-23 14:44 | Progress Note ---
Assessment and Plan Patient still complaining wheezing,shortness of breath and cough with productive yellow sputum.Afebrile.But better than last night. O2 saturation reported 95% on room air. - Patient Problems (1) Acute exacerbation of chronic obstructive pulmonary disease (COPD) Current Visit: Yes Status: Acute Plan to address problem: 1. Albuterol/atrovent aerosol treatments q 6 hours. 2. Increase solumedral 100 mg I/V q 6 hours. 3. Continue Levaquine. 4. ContinueS/C Lovenox 5. Continue Famotidine. 6. O2 2 litres Prn for shortness of breath. (2) Acute bronchitis Current Visit: No Status: Acute Qualifiers: Bronchitis organism: B Plan to address problem: Continue Levaquine. (3) AIDS Current Visit: No Status: Acute Plan to address problem: Recommend to consult infectious diseases. Subjective Date of service: 02/23/17 Principal diagnosis: Acute COPD exacerbation Interval history: Patient still complaining wheezing,shortness of breath and cough with productive yellow sputum.Afebrile.But better than last night. O2 saturation reported 95% on room air. Objective Vital Signs - 12hr 02/23/17 02/23/17 02/23/17 07:00 09:57 10:07 Temperature 99.3 F Pulse Rate [ 104 H 105 H Anterior Bilateral Throughout] Pulse Rate [ 110 H Left] Respiratory 20 Rate Respiratory 20 20 Rate [Anterior Bilateral Throughout] Blood Pressure 116/86 [Left Arm] O2 Sat by Pulse 95 Oximetry Constitutional: no acute distress, alert Eyes: non-icteric ENT: oropharynx moist Neck: supple, no lymphadenopathy Effort: mildly labored Ascultation: Bilateral: diminished breath sounds, wheezes (Bilateral wheezing.) , rhonchi (Bilateral ronchi.) Cardiovascular: regular rate and rhythm Gastrointestinal: normoactive bowel sounds, soft, non-tender, non-distended Integumentary: normal Extremities: no cyanosis, no edema, pulses normal, no ischemia or petechiae Neurologic: normal mental status, non-focal exam, pupils equal and round, motor strength normal and Psychiatric: mood appropriate, affect normal CBC and BMP: 02/19/17 07:07 02/19/17 07:07 ABG, PT/INR, D-dimer: ABG POC ABG pH 7.422 (7.35-7.45) 02/18/17 09:27 POC ABG pCO2 38.7 (35-45) 02/18/17 09:27 POC ABG pO2 71 (80-105) L 02/18/17 09:27 POC ABG HCO3 25.2 02/18/17 09:27 POC ABG Total CO2 26 02/18/17 09:27 POC ABG O2 Sat 94 02/18/17 09:27 Abnormal lab findings: Abnormal Labs 02/18/17 02/18/17 02/18/17 11:48 12:57 16:25 RBC RDW [place] % (Auto) Lymph # Seg Neutrophils % Glucose POC Glucose 311 H 348 H 162 H 02/18/17 02/19/17 02/19/17 21:52 07:07 07:07 RBC 3.48 L RDW 20.9 H Powell % (Auto) 8.9 H Lymph # 0.8 L Seg Neutrophils % 77.0 H Glucose 253 H POC Glucose 212 H 02/19/17 02/19/17 02/19/17 07:23 11:42 16:05 RBC RDW [place] % (Auto) Lymph # Seg Neutrophils % Glucose POC Glucose 291 H 126 H 208 H 02/19/17 02/20/17 02/20/17 22:04 08:20 16:18 RBC RDW [place] % (Auto) Lymph # Seg Neutrophils % Glucose POC Glucose 225 H 236 H 318 H 02/20/17 02/21/17 02/21/17 21:16 08:02 17:04 RBC RDW [place] % (Auto) Lymph # Seg Neutrophils % Glucose POC Glucose 152 H 238 H 184 H 02/22/17 02/23/17 02/23/17 08:17 05:28 11:03 RBC RDW [place] % (Auto) Lymph # Seg Neutrophils % Glucose POC Glucose 212 H 232 H 201 H
[2017-02-23] MEDS: DILANTIN PO SCH (21:15)
[2017-02-23] MEDS: LEVEMIR SUB-Q SCH (22:36)
[2017-02-24] MEDS: DUONEB 0.5 MG-3 MG/3 ML SOLN IH SCH ×3 (02:55→13:48)
[2017-02-24] MEDS: TESSALON PERLES PO SCH (06:08)
[2017-02-24] MEDS: BROVANA NEBU IH SCH (07:43)
[2017-02-24] MEDS: MUCOMYST INHALATION INHALATION SCH ×2 (07:43→16:07)
[2017-02-24 07:56] VITALS: BP 135/81
[2017-02-24] MEDS: NOVOLOG SUB-Q SCH (08:48)
[2017-02-24] MEDS: LEVAQUIN PO SCH (10:27)
[2017-02-24] MEDS: NORVASC PO SCH (10:27)
[2017-02-24] MEDS: PEPCID PO SCH (10:27)
[2017-02-24] MEDS: EMTRIVA PO SCH (10:27)
[2017-02-24] MEDS: ISENTRESS PO SCH (10:27)
[2017-02-24] MEDS: LOVENOX SUB-Q SCH (10:28)
[2017-02-24] MEDS: HYDROCORTISONE CR TP SCH (10:28)
[2017-02-24] MEDS: LASIX IV SCH (10:28)
[2017-02-24] MEDS: VIREAD PO SCH (10:33)
[2017-02-24] MEDS: PULMICORT IH SCH (16:09)
== END 2017-02-24 14:50 | disposition home or self-care (01) | DRG 291 ==
LOC: ED 20:56 → 4A 02-18 10:16 → 3A 02-22 11:59
PROVIDERS: ADMIT Internal Medicine; ATTEND Internal Medicine
PROC: 4A033R1 Measurement of Arterial Saturation, Peripheral, Percutaneous Approach (ICD-10-PCS; principal; 2017-02-18)
DX: I11.0 Hypertensive heart disease with heart failure (principal); J96.01 Acute respiratory failure with hypoxia; B20 Human immunodeficiency virus [HIV] disease; J44.1 Chronic obstructive pulmonary disease with (acute) exacerbation; I50.33 Acute on chronic diastolic (congestive) heart failure; F25.9 Schizoaffective disorder, unspecified; G40.909 Epilepsy, unspecified, not intractable, without status epilepticus; F31.9 Bipolar disorder, unspecified; E11.65 Type 2 diabetes mellitus with hyperglycemia; Z90.710 Acquired absence of both cervix and uterus; Z83.3 Family history of diabetes mellitus; Z88.8 Allergy status to other drugs, medicaments and biological substances; Z91.013 Allergy to seafood; Z79.4 Long term (current) use of insulin; J20.9 Acute bronchitis, unspecified
CPT/HCPCS: 36415; 71020; 80048; 82803; 82962; 84484; 85007; 85025; 93005; 93010; 94640; 94760; 96365; 96375; A6250; J1650; J1815; J1818; J1940; J2920; J2930; J3475

== ENCOUNTER 2017-03-13 00:35 | Emergency (ER) | payer MEDICARE ==
[2017-03-13 01:56] LABS: Basophils % (Auto) 0.4 % (0.0-1.8); Eosinophils % (Auto) 0.7 % (0.0-4.3); Hematocrit 34.1 % (30.3-42.9); Hemoglobin 11.1 gm/dl (10.1-14.3); Mean Corpuscular HGB Conc 32 % (30-34); Mean Corpuscular Hemoglobin 30 pg (28-32); Mean Corpuscular Volume 93 fl (79-97); Platelet Count 193 K/mm3 (140-440); Red Blood Count 3.66 M/mm3 (3.65-5.03); Red Cell Distribution Width 19.9 % (13.2-15.2); White Blood Count 4.8 K/mm3 (4.5-11.0)
[2017-03-13 02:07] LABS: INR 0.93 (0.87-1.13)
[2017-03-13 02:08] LABS: Partial Thromboplastin Time 24.1 Sec. (24.2-36.6)
[2017-03-13 02:14] LABS: Anion Gap 18 mmol/L; BUN/Creatinine Ratio 11.42; Blood Urea Nitrogen 8 mg/dL (7-17); Calcium 8.1 mg/dL (8.4-10.2); Carbon Dioxide 25 mmol/L (22-30); Glucose 187 mg/dL (65-100); Sodium 140 mmol/L (137-145)
--- NOTE | 2017-03-13 02:14 | XRay Report ---
FINAL REPORT PROCEDURE: XR CHEST ROUTINE 2V TECHNIQUE: PA and lateral chest radiographs were obtained. CPT 77050 HISTORY: cp COMPARISON: 09/07/2016 FINDINGS: Heart: Normal. Mediastinum/Vessels: Normal. Lungs/Pleural space: Normal. Bony thorax: No acute osseous abnormality. Other: IMPRESSION: There is no evidence of an acute cardiopulmonary process.
[2017-03-13 02:39] LABS: Potassium 2.3 mmol/L (3.6-5.0)
[2017-03-13] MEDS ORDERED: ATROVENT IH ONE ×2 (07:18→09:42)
[2017-03-13] MEDS ORDERED: XOPENEX IH ONE ×2 (07:18→09:42)
[2017-03-13] MEDS ORDERED: K-DUR PO ONE (07:21)
--- NOTE | 2017-03-13 07:29 | Emergency Department Report ---
ED Shortness of Breath HPI - General Chief Complaint: Chest Pain Stated Complaint: CP Time Seen by Provider: 03/13/17 07:09 Source: patient Mode of arrival: Ambulatory Limitations: No Limitations - History of Present Illness Initial Comments: PATIENT STATED THAT SHE IS BEEN HAVING GENERALIZED PAIN AND SHORTNESS OF BREATH. DENIED ANY FEVER,NAUSEA OR VOMITING. MD Complaint: shortness of breath, cough, pain with inspiration -: Gradual Consistency: constant Improves With: bronchodilators Worsens With: nothing, coughing Known History Of: COPD Associated Symptoms: chest pain, cough - Related Data Home Medications Medication Instructions Recorded Confirmed Last Taken Isentress 400 mg PO BID 12/01/16 02/18/17 Unknown Previous Rx's Medication Instructions Recorded Last Taken Type Bacillus Coagulans [Probiotic] 1 each PO DAILY #30 capsule. 11/15/16 Unknown Rx QUEtiapine [SEROquel] 200 mg PO QHS #30 tablet 12/10/16 Unknown Rx ALBUTEROL NEB's [Proventil 0.083% 2.5 mg IH Q3HRT PRN #7 nebu 01/25/17 Unknown Rx NEBS] Hydrocortisone 0.5% 1 applic TP Q8H PRN #1 tube 01/25/17 Unknown Rx [Hydrocortisone 0.5% CREAM] Phenytoin (25 mg/ml) [Dilantin] 300 mg PO QHS #30 oral.liqd 01/25/17 Unknown Rx Truvada 133 mg-200 mg Tablet 200 mg PO QHS 01/25/17 Unknown Rx Tenofovir [Viread] 300 mg PO QDAY tablet 02/08/17 Unknown Rx guaiFENesin/CODEINE [Robitussin AC] 15 ml PO Q4H PRN #10 oral.liqd 02/08/17 Unknown Rx oxyCODONE /ACETAMINOPHEN [Percocet 1 tab PO Q6H PRN #30 tablet 02/08/17 Unknown Rx 5/325 mg] Furosemide [Lasix TAB] 40 mg PO QDAY #30 tablet 02/21/17 Unknown Rx Insulin Detemir [Levemir] 24 units SUB-Q QHS #1 vial 02/21/17 Unknown Rx Levofloxacin [Levaquin TAB] 750 mg PO QDAY #5 tablet 02/21/17 Unknown Rx Miconazole 2% [Monistat 7 Vag 1 applicator VG QHS #1 tube 02/21/17 Unknown Rx Cream] Arformoterol Nebu [Brovana Nebu] 15 mcg IH Q12HRT #60 neb 02/24/17 Unknown Rx Benzonatate [Tessalon Perles] 100 mg PO Q8HR #90 capsule 02/24/17 Unknown Rx Budesonide [Pulmicort Respules] 0.25 mg IH Q12HRT #60 nebu 02/24/17 Unknown Rx Insulin Detemir [Levemir] 24 units SUB-Q QHS #1 vial 02/24/17 Unknown Rx Ipratropium/Albuterol Sulfate 1 ampul IH TIDRT #180 ampul.neb 02/24/17 Unknown Rx [DUONEB *Not for PRN Use*] Tiotropium [place] [Spiriva 4 gm IH DAILY #1 mist.inhal 02/24/17 Unknown Rx Respimat] amLODIPine [Norvasc] 5 mg PO QDAY #30 tablet 02/24/17 Unknown Rx predniSONE [Deltasone] 10 mg PO .TAPER #48 tab 02/24/17 Unknown Rx ALBUTEROL Inhaler [ProAir HFA 2 puff IH QID PRN #2 inhalation 03/13/17 Unknown Rx Inhaler] HYDROcodone/APAP 5-325 [[place] 1 each PO Q6HR PRN #14 tablet 03/13/17 Unknown Rx 5/325] Levofloxacin [Levaquin TAB] 500 mg PO QDAY #7 tablet 03/13/17 Unknown Rx Ondansetron [Zofran Odt] 4 mg PO Q8HR PRN #14 tab.rapdis 03/13/17 Unknown Rx predniSONE [Deltasone] 10 mg PO .TAPER #21 tab 03/13/17 Unknown Rx Allergies Allergy/AdvReac Type Severity Reaction Status Date / Time shellfish derived Allergy Severe Shortness Verified 02/17/17 21:47 of Breath ibuprofen [From Motrin] Allergy Mild Shortness Verified 02/17/17 21:46 of Breath tetracycline Allergy Shortness Verified 02/05/17 19:10 of Breath ED Review of Systems ROS: Stated complaint: CP Other details as noted in HPI Comment: All other systems reviewed and negative Constitutional: denies: chills, fever Respiratory: cough, SOB with exertion, SOB at rest, wheezing. denies: stridor Cardiovascular: chest pain, dyspnea on exertion. denies: palpitations Endocrine: no symptoms reported Gastrointestinal: denies: abdominal pain, nausea, vomiting Neurological: denies: headache, weakness, numbness ED Past Medical Hx - Past Medical History Previous Medical History?: Yes Hx Hypertension: Yes Hx Congestive Heart Failure: Yes Hx Diabetes: Yes Hx Deep Vein Thrombosis: No Hx Seizures: Yes Hx Psychiatric Treatment: Yes (bipolar disorder; schziphornia) Hx Asthma: Yes Hx COPD: Yes Hx HIV: Yes (CD4 count 344 2015) Additional medical history: HIV, CDIFF,spinal stenosis - Surgical History Past Surgical History?: Yes Hx Pacemaker: No Hx Internal Defibrillator: No Additional Surgical History: hysterectomy; rt arm skin graph - Social History Smoking Status: Never Smoker Substance Use Type: None - Medications Home Medications: Home Medications Medication Instructions Recorded Confirmed Last Taken Type Bacillus Coagulans [Probiotic] 1 each PO DAILY #30 capsule. 11/15/16 02/18/17 Unknown Rx Isentress 400 mg PO BID 12/01/16 02/18/17 Unknown History QUEtiapine [SEROquel] 200 mg PO QHS #30 tablet 12/10/16 02/18/17 Unknown Rx ALBUTEROL NEB's [Proventil 0.083% 2.5 mg IH Q3HRT PRN #7 nebu 01/25/17 02/18/17 Unknown Rx NEBS] Hydrocortisone 0.5% 1 applic TP Q8H PRN #1 tube 01/25/17 02/18/17 Unknown Rx [Hydrocortisone 0.5% CREAM] Phenytoin (25 mg/ml) [Dilantin] 300 mg PO QHS #30 oral.liqd 01/25/17 02/18/17 Unknown Rx Truvada 133 mg-200 mg Tablet 200 mg PO QHS 01/25/17 02/18/17 Unknown Rx Tenofovir [Viread] 300 mg PO QDAY tablet 02/08/17 02/18/17 Unknown Rx guaiFENesin/CODEINE [Robitussin AC] 15 ml PO Q4H PRN #10 oral.liqd 02/08/17 Unknown Rx oxyCODONE /ACETAMINOPHEN [Percocet 1 tab PO Q6H PRN #30 tablet 02/08/17 Unknown Rx 5/325 mg] Furosemide [Lasix TAB] 40 mg PO QDAY #30 tablet 02/21/17 Unknown Rx Insulin Detemir [Levemir] 24 units SUB-Q QHS #1 vial 02/21/17 Unknown Rx Levofloxacin [Levaquin TAB] 750 mg PO QDAY #5 tablet 02/21/17 Unknown Rx Miconazole 2% [Monistat 7 Vag 1 applicator VG QHS #1 tube 02/21/17 Unknown Rx Cream] Arformoterol Nebu [Brovana Nebu] 15 mcg IH Q12HRT #60 neb 02/24/17 Unknown Rx Benzonatate [Tessalon Perles] 100 mg PO Q8HR #90 capsule 02/24/17 Unknown Rx Budesonide [Pulmicort Respules] 0.25 mg IH Q12HRT #60 nebu 02/24/17 Unknown Rx Insulin Detemir [Levemir] 24 units SUB-Q QHS #1 vial 02/24/17 Unknown Rx Ipratropium/Albuterol Sulfate 1 ampul IH TIDRT #180 ampul.neb 02/24/17 Unknown Rx [DUONEB *Not for PRN Use*] Tiotropium [place] [Spiriva 4 gm IH DAILY #1 mist.inhal 02/24/17 Unknown Rx Respimat] amLODIPine [Norvasc] 5 mg PO QDAY #30 tablet 02/24/17 Unknown Rx predniSONE [Deltasone] 10 mg PO .TAPER #48 tab 02/24/17 Unknown Rx ALBUTEROL Inhaler [ProAir HFA 2 puff IH QID PRN #2 inhalation 03/13/17 Unknown Rx Inhaler] HYDROcodone/APAP 5-325 [[place] 1 each PO Q6HR PRN #14 tablet 03/13/17 Unknown Rx 5/325] Levofloxacin [Levaquin TAB] 500 mg PO QDAY #7 tablet 03/13/17 Unknown Rx Ondansetron [Zofran Odt] 4 mg PO Q8HR PRN #14 tab.rapdis 03/13/17 Unknown Rx predniSONE [Deltasone] 10 mg PO .TAPER #21 tab 03/13/17 Unknown Rx ED Physical Exam - General Limitations: No Limitations General appearance: alert, in no apparent distress - Head Head exam: Present: atraumatic, normocephalic - Eye Eye exam: Present: normal appearance - ENT ENT exam: Present: normal exam - Neck Neck exam: Present: normal inspection, full ROM. Absent: tenderness, meningismus - Respiratory Respiratory exam: Present: wheezes, rales, rhonchi, decreased breath sounds, prolonged expiratory. Absent: stridor, chest wall tenderness, accessory muscle use - Cardiovascular Cardiovascular Exam: Present: tachycardia - GI/Abdominal GI/Abdominal exam: Present: soft. Absent: tenderness, guarding, rebound - Back Exam Back exam: Present: normal inspection. Absent: CVA tenderness (R) - Neurological Exam Neurological exam: Present: alert, oriented X3, CN II-XII intact - Skin Skin exam: Present: warm, dry ED Course Vital Signs 03/13/17 03/13/17 03/13/17 00:51 07:08 07:10 Temperature 98.1 F Pulse Rate 107 H Pulse Rate [ Anterior Bilateral Throughout] Respiratory 24 Rate Respiratory Rate [Anterior Bilateral Throughout] Blood Pressure 135/86 129/75 Blood Pressure [Left] O2 Sat by Pulse 99 100 Oximetry 03/13/17 03/13/17 03/13/17 07:21 07:26 07:27 Temperature Pulse Rate 97 H Pulse Rate [ 91 H 89 Anterior Bilateral Throughout] Respiratory 12 Rate Respiratory 13 14 Rate [Anterior Bilateral Throughout] Blood Pressure 117/79 Blood Pressure [Left] O2 Sat by Pulse 99 Oximetry 03/13/17 03/13/17 03/13/17 07:30 07:34 07:36 Temperature 98.2 F Pulse Rate 90 90 Pulse Rate [ Anterior Bilateral Throughout] Respiratory 21 20 16 Rate Respiratory Rate [Anterior Bilateral Throughout] Blood Pressure 114/78 Blood Pressure 112/78 [Left] O2 Sat by Pulse 99 100 100 Oximetry 03/13/17 03/13/17 03/13/17 07:41 07:51 08:00 Temperature Pulse Rate 116 H 90 85 Pulse Rate [ Anterior Bilateral Throughout] Respiratory 20 30 H 14 Rate Respiratory Rate [Anterior Bilateral Throughout] Blood Pressure 114/78 124/70 113/75 Blood Pressure [Left] O2 Sat by Pulse 94 98 99 Oximetry 03/13/17 03/13/17 03/13/17 08:11 08:21 08:30 Temperature Pulse Rate 90 94 H 88 Pulse Rate [ Anterior Bilateral Throughout] Respiratory 16 14 16 Rate Respiratory Rate [Anterior Bilateral Throughout] Blood Pressure 113/75 131/90 110/72 Blood Pressure [Left] O2 Sat by Pulse 98 100 97 Oximetry 03/13/17 03/13/17 03/13/17 08:41 08:51 09:00 Temperature Pulse Rate 92 H 87 89 Pulse Rate [ Anterior Bilateral Throughout] Respiratory 17 22 15 Rate Respiratory Rate [Anterior Bilateral Throughout] Blood Pressure 110/72 109/73 125/95 Blood Pressure [Left] O2 Sat by Pulse 100 86 98 Oximetry 03/13/17 03/13/17 03/13/17 09:11 09:21 09:30 Temperature Pulse Rate 86 86 88 Pulse Rate [ Anterior Bilateral Throughout] Respiratory 15 13 15 Rate Respiratory Rate [Anterior Bilateral Throughout] Blood Pressure 125/95 119/87 120/97 Blood Pressure [Left] O2 Sat by Pulse 98 100 96 Oximetry 03/13/17 03/13/17 03/13/17 09:41 09:51 10:06 Temperature Pulse Rate 95 H 96 H Pulse Rate [ 90 Anterior Bilateral Throughout] Respiratory 20 17 Rate Respiratory 18 Rate [Anterior Bilateral Throughout] Blood Pressure 120/97 79/53 Blood Pressure [Left] O2 Sat by Pulse 95 97 Oximetry 03/13/17 10:11 Temperature 98.1 F Pulse Rate 108 H Pulse Rate [ Anterior Bilateral Throughout] Respiratory 16 Rate Respiratory Rate [Anterior Bilateral Throughout] Blood Pressure Blood Pressure 114/78 [Left] O2 Sat by Pulse 100 Oximetry - Reevaluation(s) Reevaluation #1: 03/13/17 11:22 PATIENT STATED THAT SHE FEEL MUCH BETTER. ADVISED TO FOLLOW UP WITH HER PCP IN THE NEXT 2-3 DAYS. ED Medical Decision Making - Lab Data Result diagrams: 03/13/17 00:57 03/13/17 00:57 - Radiology Data Radiology results: report reviewed, image reviewed Critical care attestation.: If time is entered above; I have spent that time in minutes in the direct care of this critically ill patient, excluding procedure time. ED Disposition Clinical Impression: Chest pain, atypical, Acute bronchitis, Hypokalemia Disposition: [id number]-01 TO HOME OR SELFCARE Is pt being admited?: No Does the pt Need Aspirin: No Condition: Stable Instructions: Chest Pain (ED), Acute Bronchitis (ED) Prescriptions: ALBUTEROL Inhaler [ProAir HFA Inhaler] 2 puff IH QID PRN #2 inhalation PRN Reason: Shortness Of Breath HYDROcodone/APAP 5-325 [[place] 5/325] 1 each PO Q6HR PRN #14 tablet PRN Reason: Pain Levofloxacin [Levaquin TAB] 500 mg PO QDAY #7 tablet Ondansetron [Zofran Odt] 4 mg PO Q8HR PRN #14 tab.rapdis PRN Reason: Vomiting predniSONE [Deltasone] 10 mg PO .TAPER #21 tab Referrals: PRIMARY CARE, [Primary Care Provider] - 3-5 Days
[2017-03-13] MEDS ORDERED: POTASSIUM CHLORIDE FEEDTUBE ONE (08:58)
[2017-03-13] MEDS ORDERED: NORCO 5/325 ONE (09:42)
[2017-03-13] MEDS ORDERED: ZOFRAN ODT PO ONE (09:43)
[2017-03-13] MEDS ORDERED: NORCO 5/325 PO ONE (09:43)
[2017-03-13 10:07] LABS: ISTAT Base Excess 5; ISTAT DEVICE 0; ISTAT HCO3 28.4; ISTAT PCO2 35.7 (35-45); ISTAT PH 7.508 (7.35-7.45); ISTAT PO2 94 (80-105); ISTAT SO2 98; ISTAT TCO2 29
[2017-03-13] MEDS: KCL 10MEQ/100ML 10 MEQ/100 ML BAG IV SCH (10:07)
[2017-03-13 10:12] VITALS: BP 114/78
== END 2017-03-13 12:00 | disposition home or self-care (01) ==
LOC: EEVIPCON 00:35 → ED 00:35
DX: J20.9 Acute bronchitis, unspecified (principal); E87.6 Hypokalemia; R07.89 Other chest pain; I10 Essential (primary) hypertension; I50.9 Heart failure, unspecified; E11.9 Type 2 diabetes mellitus without complications; J45.909 Unspecified asthma, uncomplicated; J44.9 Chronic obstructive pulmonary disease, unspecified
CPT/HCPCS: 36415; 71020; 80048; 82803; 84484; 85025; 85610; 85730; 93005; 93010; 94640; 96372; 99285; J2930; J3480

== ENCOUNTER 2017-03-21 12:21 | Inpatient (IN) | payer MEDICARE ==
[2017-03-21 13:49] LABS: Basophils % (Auto) 0.4 % (0.0-1.8); Eosinophils % (Auto) 0.2 % (0.0-4.3); Hematocrit 32.5 % (30.3-42.9); Hemoglobin 10.5 gm/dl (10.1-14.3); Mean Corpuscular HGB Conc 32 % (30-34); Mean Corpuscular Hemoglobin 31 pg (28-32); Mean Corpuscular Volume 96 fl (79-97); Platelet Count 227 K/mm3 (140-440); Red Blood Count 3.39 M/mm3 (3.65-5.03); White Blood Count 4.7 K/mm3 (4.5-11.0)
[2017-03-21 13:53] LABS: Red Cell Distribution Width 21.1 % (13.2-15.2)
[2017-03-21 13:55] LABS: Bilirubin,Urine NEG (Negative); Blood,Urine NEG (Negative); Ketones,Urine NEG (Negative); Leukocyte Esterase,Urine NEG (Negative); Nitrite,Urine NEG (Negative); Protein,Urine <15 mg/dL mg/dL (Negative); Urobilinogen,Urine < 2.0 mg/dL (<2.0); WBC,Urine < 1.0 /HPF (0.0-6.0)
[2017-03-21 14:06] LABS: Anion Gap 15 mmol/L; BUN/Creatinine Ratio 8.33; Blood Urea Nitrogen 5 mg/dL (7-17); Calcium 8.9 mg/dL (8.4-10.2); Carbon Dioxide 30 mmol/L (22-30); Chloride 105.2 mmol/L (98-107); Glucose 57 mg/dL (65-100); Sodium 148 mmol/L (137-145)
[2017-03-21 14:19] LABS: Potassium 2.5 mmol/L (3.6-5.0)
[2017-03-21] MEDS ORDERED: K-DUR PO ONE (14:19)
[2017-03-21] MEDS ORDERED: ATROVENT IH ONE (14:23)
[2017-03-21] MEDS ORDERED: PERCOCET 5/325 PO ONE (14:23)
[2017-03-21] MEDS ORDERED: DELTASONE PO ONE (14:23)
[2017-03-21] MEDS ORDERED: PROVENTIL IH ONE (14:23)
--- NOTE | 2017-03-21 16:19 | XRay Report ---
FINAL REPORT PROCEDURE: XR CHEST ROUTINE 2V TECHNIQUE: PA lateral chest HISTORY: wheezing, right sided cp COMPARISON: 03/13/2017 FINDINGS: Mild to moderate heart shadow enlargement. Tortuous atherosclerotic aorta. COPD. No infiltrate or effusion seen. Mild central peribronchial cuffing and bronchovascular sheath thickening could reflect bronchitis. IMPRESSION: No acute infiltrates seen Possible mild bronchitis No consolidation or effusion.
--- NOTE | 2017-03-21 16:52 | Emergency Department Report ---
ED Shortness of Breath HPI - General Chief Complaint: Hypoglycemia Stated Complaint: HYPOGLYCEMIA Time Seen by Provider: 03/21/17 13:33 Source: EMS Mode of arrival: Stretcher Limitations: Altered Mental Status - History of Present Illness Initial Comments: 61-year-old female with a past medical history CHF, COPD, HIV with last CD4 256 and August 2016, hypertension, bipolar, schizophrenia, seizures, and insulin dependent diabetes presents to the hospital with hypoglycemic episode. Patient cannot recall what happened. Patient is at [facility] staff called EMS because patient became altered and combative. Upon EMS arrival glucose was 27. Patient received 30 g of oral glucose and improved to her baseline mental status en route to the hospital. Patient states she's been compliant with all her medications. She will took Lantus 24 units at night and took her NovoLog 9 units in a.m. She did eat her typical amount of food. Patient complains of wheezing and shortness of breath as well and right lower chest pain that is worse with palpation, movement, cough, and deep inspiration. Pain is rated a 10 in intensity. Patient denies fever, productive cough, calf tenderness, or edema. - Related Data Home Medications Medication Instructions Recorded Confirmed Last Taken Isentress 400 mg PO BID 12/01/16 02/18/17 Unknown Previous Rx's Medication Instructions Recorded Last Taken Type Bacillus Coagulans [Probiotic] 1 each PO DAILY #30 capsule. 11/15/16 Unknown Rx QUEtiapine [SEROquel] 200 mg PO QHS #30 tablet 12/10/16 Unknown Rx ALBUTEROL NEB's [Proventil 0.083% 2.5 mg IH Q3HRT PRN #7 nebu 01/25/17 Unknown Rx NEBS] Hydrocortisone 0.5% 1 applic TP Q8H PRN #1 tube 01/25/17 Unknown Rx [Hydrocortisone 0.5% CREAM] Phenytoin (25 mg/ml) [Dilantin] 300 mg PO QHS #30 oral.liqd 01/25/17 Unknown Rx Truvada 133 mg-200 mg Tablet 200 mg PO QHS 01/25/17 Unknown Rx Tenofovir [Viread] 300 mg PO QDAY tablet 02/08/17 Unknown Rx guaiFENesin/CODEINE [Robitussin AC] 15 ml PO Q4H PRN #10 oral.liqd 02/08/17 Unknown Rx oxyCODONE /ACETAMINOPHEN [Percocet 1 tab PO Q6H PRN #30 tablet 02/08/17 Unknown Rx 5/325 mg] Furosemide [Lasix TAB] 40 mg PO QDAY #30 tablet 02/21/17 Unknown Rx Insulin Detemir [Levemir] 24 units SUB-Q QHS #1 vial 02/21/17 Unknown Rx Levofloxacin [Levaquin TAB] 750 mg PO QDAY #5 tablet 02/21/17 Unknown Rx Miconazole 2% [Monistat 7 Vag 1 applicator VG QHS #1 tube 02/21/17 Unknown Rx Cream] Arformoterol Nebu [Brovana Nebu] 15 mcg IH Q12HRT #60 neb 02/24/17 Unknown Rx Benzonatate [Tessalon Perles] 100 mg PO Q8HR #90 capsule 02/24/17 Unknown Rx Budesonide [Pulmicort Respules] 0.25 mg IH Q12HRT #60 nebu 02/24/17 Unknown Rx Insulin Detemir [Levemir] 24 units SUB-Q QHS #1 vial 02/24/17 Unknown Rx Ipratropium/Albuterol Sulfate 1 ampul IH TIDRT #180 ampul.neb 02/24/17 Unknown Rx [DUONEB *Not for PRN Use*] Tiotropium [place] [Spiriva 4 gm IH DAILY #1 mist.inhal 02/24/17 Unknown Rx Respimat] amLODIPine [Norvasc] 5 mg PO QDAY #30 tablet 02/24/17 Unknown Rx predniSONE [Deltasone] 10 mg PO .TAPER #48 tab 02/24/17 Unknown Rx ALBUTEROL Inhaler [ProAir HFA 2 puff IH QID PRN #2 inhalation 03/13/17 Unknown Rx Inhaler] HYDROcodone/APAP 5-325 [[place] 1 each PO Q6HR PRN #14 tablet 03/13/17 Unknown Rx 5/325] Levofloxacin [Levaquin TAB] 500 mg PO QDAY #7 tablet 03/13/17 Unknown Rx Ondansetron [Zofran Odt] 4 mg PO Q8HR PRN #14 tab.rapdis 03/13/17 Unknown Rx predniSONE [Deltasone] 10 mg PO .TAPER #21 tab 03/13/17 Unknown Rx Allergies Allergy/AdvReac Type Severity Reaction Status Date / Time shellfish derived Allergy Severe Shortness Verified 03/21/17 13:04 of Breath ibuprofen [From Motrin] Allergy Mild Shortness Verified 03/21/17 13:04 of Breath tetracycline Allergy Shortness Verified 03/21/17 13:04 of Breath ED Review of Systems ROS: Stated complaint: HYPOGLYCEMIA Other details as noted in HPI Comment: All other systems reviewed and negative Other: Constitutional: No fevers chills Eyes: No eye pain visual changes ENT: No ear pain or throat pain Neck: Denies pain Respiratory: As per HPI Cardiovascular: Denies palpitations, syncope GI: Denies abdominal pain, nausea, vomiting, diarrhea : Denies dysuria Musculoskeletal: Denies back pain, joint swelling Skin: Denies rash, lesions, erythema Neurologic: Denies headache, numbness, weakness Psychiatric: Denies suicidal ideation, hallucinations ED Past Medical Hx - Past Medical History Hx Hypertension: Yes Hx Congestive Heart Failure: Yes Hx Diabetes: Yes Hx Deep Vein Thrombosis: No Hx Seizures: Yes Hx Psychiatric Treatment: Yes (bipolar disorder; schziphornia) Hx Asthma: Yes Hx COPD: Yes Hx HIV: Yes (CD4 count 256 August 2016) Additional medical history: HIV, CDIFF,spinal stenosis - Surgical History Hx Pacemaker: No Hx Internal Defibrillator: No Additional Surgical History: hysterectomy; rt arm skin graph - Social History Smoking Status: Former Smoker Substance Use Type: None - Medications Home Medications: Home Medications Medication Instructions Recorded Confirmed Last Taken Type Bacillus Coagulans [Probiotic] 1 each PO DAILY #30 capsule. 11/15/16 02/18/17 Unknown Rx Isentress 400 mg PO BID 12/01/16 02/18/17 Unknown History QUEtiapine [SEROquel] 200 mg PO QHS #30 tablet 12/10/16 02/18/17 Unknown Rx ALBUTEROL NEB's [Proventil 0.083% 2.5 mg IH Q3HRT PRN #7 nebu 01/25/17 02/18/17 Unknown Rx NEBS] Hydrocortisone 0.5% 1 applic TP Q8H PRN #1 tube 01/25/17 02/18/17 Unknown Rx [Hydrocortisone 0.5% CREAM] Phenytoin (25 mg/ml) [Dilantin] 300 mg PO QHS #30 oral.liqd 01/25/17 02/18/17 Unknown Rx Truvada 133 mg-200 mg Tablet 200 mg PO QHS 01/25/17 02/18/17 Unknown Rx Tenofovir [Viread] 300 mg PO QDAY tablet 02/08/17 02/18/17 Unknown Rx guaiFENesin/CODEINE [Robitussin AC] 15 ml PO Q4H PRN #10 oral.liqd 02/08/17 Unknown Rx oxyCODONE /ACETAMINOPHEN [Percocet 1 tab PO Q6H PRN #30 tablet 02/08/17 Unknown Rx 5/325 mg] Furosemide [Lasix TAB] 40 mg PO QDAY #30 tablet 02/21/17 Unknown Rx Insulin Detemir [Levemir] 24 units SUB-Q QHS #1 vial 02/21/17 Unknown Rx Levofloxacin [Levaquin TAB] 750 mg PO QDAY #5 tablet 02/21/17 Unknown Rx Miconazole 2% [Monistat 7 Vag 1 applicator VG QHS #1 tube 02/21/17 Unknown Rx Cream] Arformoterol Nebu [Brovana Nebu] 15 mcg IH Q12HRT #60 neb 02/24/17 Unknown Rx Benzonatate [Tessalon Perles] 100 mg PO Q8HR #90 capsule 02/24/17 Unknown Rx Budesonide [Pulmicort Respules] 0.25 mg IH Q12HRT #60 nebu 02/24/17 Unknown Rx Insulin Detemir [Levemir] 24 units SUB-Q QHS #1 vial 02/24/17 Unknown Rx Ipratropium/Albuterol Sulfate 1 ampul IH TIDRT #180 ampul.neb 02/24/17 Unknown Rx [DUONEB *Not for PRN Use*] Tiotropium [place] [Spiriva 4 gm IH DAILY #1 mist.inhal 02/24/17 Unknown Rx Respimat] amLODIPine [Norvasc] 5 mg PO QDAY #30 tablet 02/24/17 Unknown Rx predniSONE [Deltasone] 10 mg PO .TAPER #48 tab 02/24/17 Unknown Rx ALBUTEROL Inhaler [ProAir HFA 2 puff IH QID PRN #2 inhalation 03/13/17 Unknown Rx Inhaler] HYDROcodone/APAP 5-325 [[place] 1 each PO Q6HR PRN #14 tablet 03/13/17 Unknown Rx 5/325] Levofloxacin [Levaquin TAB] 500 mg PO QDAY #7 tablet 03/13/17 Unknown Rx Ondansetron [Zofran Odt] 4 mg PO Q8HR PRN #14 tab.rapdis 03/13/17 Unknown Rx predniSONE [Deltasone] 10 mg PO .TAPER #21 tab 03/13/17 Unknown Rx ED Physical Exam - General Limitations: Altered Mental Status - Other Other exam information: General: No limitations, patient is alert in no acute distress Head exam: Atraumatic, normocephalic Eyes exam: Normal appearance, pupils equal reactive to light, extraocular movements intact ENT: Moist mucous membrane, normal oropharynx Neck exam: Normal inspection, full range of motion, no meningismus nontender Respiratory exam: Reproducible right lower chest wall tenderness under the right breast. Bilateral expiratory wheezing, no tachypnea or accessory muscle use Cardiovascular: Normal rate and rhythm Abdomen: Soft, nondistended, and nontender, with normal bowel sounds, no rebound, or guarding Extremity: Full range of motion normal inspection no deformity, no calf tenderness or edema Back: Normal Inspection, full range of motion, no tenderness Neurologic: Alert, oriented x3, cranial nerves intact, no motor or sensory deficit Psychiatric: normal affect, normal mood Skin: Warm, dry, intact ED Course Vital Signs 03/21/17 03/21/17 03/21/17 12:30 12:41 14:12 Temperature 97.4 F L 97.4 F L Pulse Rate 68 76 Pulse Rate [ Anterior Bilateral Throughout] Respiratory 20 20 20 Rate Respiratory Rate [Anterior Bilateral Throughout] Blood Pressure 121/72 Blood Pressure 121/72 [Right] O2 Sat by Pulse 98 100 98 Oximetry 03/21/17 03/21/17 03/21/17 14:35 14:38 16:30 Temperature Pulse Rate Pulse Rate [ 98 H 110 H Anterior Bilateral Throughout] Respiratory 20 Rate Respiratory 20 20 Rate [Anterior Bilateral Throughout] Blood Pressure Blood Pressure [Right] O2 Sat by Pulse Oximetry - Reevaluation(s) Reevaluation #1: 03/21/17 16:54 Patient received albuterol, Atrovent, prednisone, Percocet and oral potassium. Patient continues to complain of not feeling well. She continue to have wheezing. ED Medical Decision Making - Lab Data Result diagrams: 03/21/17 13:45 03/21/17 13:45 Lab Results 03/21/17 03/21/17 03/21/17 Range/Units 12:49 13:15 13:44 WBC (4.5-11.0) K/mm3 RBC (3.65-5.03) M/mm3 Hgb (10.1-14.3) gm/dl Hct (30.3-42.9) % MCV (79-97) fl MCH (28-32) pg MCHC (30-34) % RDW (13.2-15.2) % Plt Count (140-440) K/mm3 Lymph % (Auto) (13.4-35.0) % [place] % (Auto) (0.0-7.3) % Eos % (Auto) (0.0-4.3) % Baso % (Auto) (0.0-1.8) % Lymph # (1.2-5.4) K/mm3 [place] # (0.0-0.8) K/mm3 Eos # (0.0-0.4) K/mm3 Baso # (0.0-0.1) K/mm3 Seg Neutrophils % (40.0-70.0) % Seg Neutrophils # (1.8-7.7) K/mm3 Sodium (137-145) mmol/L Potassium (3.6-5.0) mmol/L Chloride (98-107) mmol/L Carbon Dioxide (22-30) mmol/L Anion Gap mmol/L BUN (7-17) mg/dL Creatinine (0.7-1.2) mg/dL Estimated GFR ml/min BUN/Creatinine Ratio % Glucose (65-100) mg/dL POC Glucose 118 H (70-105) Calcium (8.4-10.2) mg/dL Magnesium 1.90 (1.7-2.3) mg/dL Urine Color Straw (Yellow) Urine Turbidity Clear (Clear) Urine pH 6.0 (5.0-7.0) Ur Specific [place] 1.005 (1.003-1.030) Urine Protein <15 mg/dl (Negative) mg/dL Urine Glucose (UA) Neg (Negative) mg/dL Urine Ketones Neg (Negative) mg/dL Urine Blood Neg (Negative) Urine Nitrite Neg (Negative) Urine Bilirubin Neg (Negative) Urine Urobilinogen < 2.0 (<2.0) mg/dL Ur Leukocyte Esterase Neg (Negative) Urine WBC (Auto) < 1.0 (0.0-6.0) /HPF Urine RBC (Auto) 3.0 (0.0-6.0) /HPF 03/21/17 03/21/17 03/21/17 Range/Units 13:45 13:45 14:35 WBC 4.7 (4.5-11.0) K/mm3 RBC 3.39 L (3.65-5.03) M/mm3 Hgb 10.5 (10.1-14.3) gm/dl Hct 32.5 (30.3-42.9) % MCV 96 (79-97) fl MCH 31 (28-32) pg MCHC 32 (30-34) % RDW 21.1 H (13.2-15.2) % Plt Count 227 (140-440) K/mm3 Lymph % (Auto) 23.5 (13.4-35.0) % [place] % (Auto) 10.0 H (0.0-7.3) % Eos % (Auto) 0.2 (0.0-4.3) % Baso % (Auto) 0.4 (0.0-1.8) % Lymph # 1.1 L (1.2-5.4) K/mm3 [place] # 0.5 (0.0-0.8) K/mm3 Eos # 0.0 (0.0-0.4) K/mm3 Baso # 0.0 (0.0-0.1) K/mm3 Seg Neutrophils % 65.9 (40.0-70.0) % Seg Neutrophils # 3.1 (1.8-7.7) K/mm3 Sodium 148 H (137-145) mmol/L Potassium 2.5 L* (3.6-5.0) mmol/L Chloride 105.2 (98-107) mmol/L Carbon Dioxide 30 (22-30) mmol/L Anion Gap 15 mmol/L BUN 5 L (7-17) mg/dL Creatinine 0.6 L (0.7-1.2) mg/dL Estimated GFR > 60 ml/min BUN/Creatinine Ratio 8.33 % Glucose 57 L (65-100) mg/dL POC Glucose 154 H (70-105) Calcium 8.9 (8.4-10.2) mg/dL Magnesium (1.7-2.3) mg/dL Urine Color (Yellow) Urine Turbidity (Clear) Urine pH (5.0-7.0) Ur Specific [place] (1.003-1.030) Urine Protein (Negative) mg/dL Urine Glucose (UA) (Negative) mg/dL Urine Ketones (Negative) mg/dL Urine Blood (Negative) Urine Nitrite (Negative) Urine Bilirubin (Negative) Urine Urobilinogen (<2.0) mg/dL Ur Leukocyte Esterase (Negative) Urine WBC (Auto) (0.0-6.0) /HPF Urine RBC (Auto) (0.0-6.0) /HPF - Radiology Data Radiology results: report reviewed (chest x-ray: No acute infiltrates, possible mild bronchitis. No consolidation or effusions.) - Medical Decision Making Patient ate after arrival and glucose is controlled at this time. Patient be admitted to the hospitalist and is given hypokalemia, acute COPD exacerbation, and monitoring for hypoglycemia. Critical Care Time: No Critical care attestation.: If time is entered above; I have spent that time in minutes in the direct care of this critically ill patient, excluding procedure time. ED Disposition Clinical Impression: HIV (human immunodeficiency virus infection), Chest wall pain, Acute exacerbation of chronic obstructive pulmonary disease (COPD), Schizophrenia, Hypoglycemia due to insulin, Hypokalemia Disposition: OP ADMIT IP TO THIS HOSP Is pt being admited?: Yes Condition: Stable Time of Disposition: 16:49 (DR Krause/hosp)
--- NOTE | 2017-03-21 21:17 | History and Physical Report ---
History of Present Illness Date of admission: 03/21/17 17:39 Chief complaint: i cant breathe History of present illness: 61 YO Female Resident at [facility] with CHF Diastolic Dysfunction, COPD, HIV ( CD4: 256), HTN, Bipolar, Schizophrenia, Seizure Disorder, DM, presents to ED for evaluation. Pt unable to provide detailed history, but history taken from ED staff, and [facility] staff. Pt found by [facility] staff to be confused and combative. EMS notified, and upon arrival, patient found to have glucose of 27. Pt treated with glucose with improvement in her symptoms. Patient states she' s been compliant with all her medications but did not eat as scheduled. Patient complains of wheezing and shortness of breath as well and right lower chest pain for the past 2 days with worsening symptoms over the past 4 hours. Pt states that pain in 10/10, substernal, nonradiating, worse with palpation, movement, cough, and deep breathing, with no alleviating factors. Patient denies fever, chills, palpitations, productive cough, calf tenderness, leg edema , prolonged immobility/travel, individual/family history of DVT/PE, or recent ill contacts. Past History Past Medical History: COPD, diabetes, heart failure, HIV/AIDS, hypertension, seizures Past Surgical History: hysterectomy Social history: single. denies: smoking, alcohol abuse, prescription drug abuse Family history: diabetes, hypertension Medications and Allergies Allergies Allergy/AdvReac Type Severity Reaction Status Date / Time shellfish derived Allergy Severe Shortness Verified 03/21/17 13:04 of Breath ibuprofen [From Motrin] Allergy Mild Shortness Verified 03/21/17 13:04 of Breath tetracycline Allergy Shortness Verified 03/21/17 13:04 of Breath Home Medications Medication Instructions Recorded Confirmed Last Taken Type Bacillus Coagulans [Probiotic] 1 each PO DAILY #30 capsule. 11/15/16 03/21/17 Unknown Rx Isentress 400 mg PO BID 12/01/16 03/21/17 Unknown History QUEtiapine [SEROquel] 200 mg PO QHS #30 tablet 12/10/16 03/21/17 Unknown Rx ALBUTEROL NEB's [Proventil 0.083% 2.5 mg IH Q3HRT PRN #7 nebu 01/25/17 03/21/17 Unknown Rx NEBS] Hydrocortisone 0.5% 1 applic TP Q8H PRN #1 tube 01/25/17 03/21/17 Unknown Rx [Hydrocortisone 0.5% CREAM] Phenytoin (25 mg/ml) [Dilantin] 300 mg PO QHS #30 oral.liqd 01/25/17 03/21/17 Unknown Rx Truvada 133 mg-200 mg Tablet 200 mg PO QHS 01/25/17 03/21/17 Unknown Rx Tenofovir [Viread] 300 mg PO QDAY tablet 02/08/17 03/21/17 Unknown Rx oxyCODONE /ACETAMINOPHEN [Percocet 1 tab PO Q6H PRN #30 tablet 02/08/17 Unknown Rx 5/325 mg] Furosemide [Lasix TAB] 40 mg PO QDAY #30 tablet 02/21/17 03/21/17 Unknown Rx Miconazole 2% [Monistat 7 Vag 1 applicator VG QHS #1 tube 02/21/17 03/21/17 Unknown Rx Cream] Arformoterol Nebu [Brovana Nebu] 15 mcg IH Q12HRT #60 neb 02/24/17 03/21/17 Unknown Rx Benzonatate [Tessalon Perles] 100 mg PO Q8HR #90 capsule 02/24/17 03/21/17 Unknown Rx Budesonide [Pulmicort Respules] 0.25 mg IH Q12HRT #60 nebu 02/24/17 03/21/17 Unknown Rx Insulin Detemir [Levemir] 24 units SUB-Q QHS #1 vial 02/24/17 03/21/17 Unknown Rx Ipratropium/Albuterol Sulfate 1 ampul IH TIDRT #180 ampul.neb 02/24/17 03/21/17 Unknown Rx [DUONEB *Not for PRN Use*] Tiotropium [place] [Spiriva 4 gm IH DAILY #1 mist.inhal 02/24/17 03/21/17 Unknown Rx Respimat] amLODIPine [Norvasc] 5 mg PO QDAY #30 tablet 02/24/17 03/21/17 Unknown Rx ALBUTEROL Inhaler [ProAir HFA 2 puff IH QID PRN #2 inhalation 03/13/17 03/21/17 Unknown Rx Inhaler] Ondansetron [Zofran Odt] 4 mg PO Q8HR PRN #14 tab.rapdis 03/13/17 03/21/17 Unknown Rx predniSONE [Deltasone] 10 mg PO .TAPER #21 tab 03/13/17 03/21/17 Unknown Rx Review of Systems ROS unobtainable: due to mental status Exam - Constitutional Vitals: Temp Pulse Resp BP Pulse Ox 97.4 F L 110 H 20 141/78 98 03/21/17 12:41 03/21/17 16:30 03/21/17 16:30 03/21/17 17:30 03/21/17 17:30 General appearance: Present: mild distress, obese - EENT Eyes: Present: PERRL ENT: hearing intact, clear oral mucosa - Neck Neck: Present: supple, normal ROM - Respiratory Respiratory effort: normal Respiratory: bilateral: diminished, wheezing - Cardiovascular Heart Sounds: Present: S1 & S2. Absent: rub, click - Extremities Extremities: pulses symmetrical, No edema Extremity abnormal: edema Peripheral Pulses: within normal limits - Abdominal General gastrointestinal: Present: soft, non-tender, non-distended, normal bowel sounds Female genitourinary: Present: normal - Integumentary Integumentary: Present: clear, dry, decreased turgor - Musculoskeletal Musculoskeletal: gait normal, strength equal bilaterally - Psychiatric Psychiatric: no intact judgment & insight, no memory intact - Neurologic Neurologic: CNII-XII intact, moves all extremities Results - Labs CBC & Chem 7: 03/21/17 13:45 03/21/17 13:45 Assessment and Plan - Patient Problems (1) CHF (congestive heart failure) Current Visit: Yes Status: Acute Qualifiers: Congestive heart failure type: diastolic Congestive heart failure chronicity: acute on chronic Qualified Code(s): I50.33 - Acute on chronic diastolic (congestive) heart failure Plan to address problem: Admit to telemetry, cardiac enxymes, ekg, supportive care, BP control, cardiac diet, monitor uop q shift, cardiology consulted. resume home medication. (2) Acute exacerbation of chronic obstructive pulmonary disease (COPD) Current Visit: Yes Status: Acute Plan to address problem: Nebulizer therapy, supportive care, NIPPV as clinically indicated, supplemental oxygen, (3) Encephalopathy acute Current Visit: Yes Status: Acute Plan to address problem: metabolic encephalopathy: supportive care, neuro checks, serial physical exam. correct hypoglycemia (4) Hypoglycemia Current Visit: Yes Status: Acute (5) Chest wall pain Current Visit: Yes Status: Acute Plan to address problem: Admit to telemetry, cardiac enzymes, ekg, d dimer, supportive care. (6) Hypokalemia Current Visit: Yes Status: Acute Plan to address problem: repleted,repeat bmp (7) HIV (human immunodeficiency virus infection) Current Visit: Yes Status: Chronic Plan to address problem: Resume home medication, outpatient ID f/u care. (8) DVT prophylaxis Current Visit: No Status: Acute
[2017-03-21] MEDS ORDERED: SODIUM CHLORIDE FLUSH SYRINGE 10 ML IV PRN (21:45)
--- NOTE | 2017-03-22 04:32 | Admit Criteria Form ---
Admission Criteria Documentation: COPD Clinical Indications for Admission to Inpatient Care (Place 'X' for any and all applicable criteria): Admission is indicated for ANY ONE of the following (1)(2)(3): [X ]I. Acute exacerbation by high-risk comorbidity (e.g., pneumonia, dysrhythmia, heart failure, pleural effusion, pneumothorax) or severe underlying COPD (e.g., steroid dependent) [ ]II. Inpatient admission required rather than observation care (see Chronic Obstructive Pulmonary Disease: Observation Care) because of ANY ONE of the following: [ ]a) New or pre-existing signs or symptoms of COPD (eg, dyspnea or Tachypnea at rest or with minimal activity) that persist despite outpatient and observation care treatment [ ]b) New-onset hypoxemia (room air SaO2 less than 90%, PO2 less than 60 mm Hg (8.0 kPa)) that persists despite outpatient and observation care treatment [ ]c) Worsening of pre-existing hypoxemia (eg, new or increased requirement for supplemental oxygen to maintain oxygenation at baseline level) that persists despite outpatient and observation care treatment, with oxygen treatment needs performable only in acute inpatient setting [ ]d) Hypercarbia (PCO2 greater than 40 mm Hg (5.3 kPa))-induced respiratory acidosis (pH less than 7.35) that persists despite outpatient and observation care treatment [ ]e) Supplemental oxygen or respiratory treatments for over 24 hours that are performable only in acute inpatient setting [ ]f) Chest tube placement with active evacuation (e.g., suction, drainage) (5) [ ]g) Other condition, treatment or monitoring requiring inpatient admission [ ]III. Planned invasive surgical or diagnostic procedures requiring acute- care hospitalization [ ]IV. Acute respiratory failure (e.g., uncompensated hypercarbia, severe hypoxemia) [ ]V. Severe comorbid condition (e.g., severe steroid myopathy, acute vertebral fracture) that has acutely worsened pulmonary function [ ]. Confusion state, lethargy, obtundation, stupor or coma Extended stay beyond goal length of stay may be needed for (31)(32): [ ]a ) Respiratory Failure. [ ]b) Severe or persisting hypoxemia or hypercarbia [ ]c) Severe or persistent dyspnea [ ]d) Comorbidities (e.g. chronic heart failure, atrial fibrillation with rapid response, pneumonia) [ ]e) Malnutrition The original [facility] content created by [facility] has been revised. The portions of the content which have been revised are identified through the use of italic text or in bold, and [facility] has neither reviewed nor approved the modified material. All other unmodified content is copyright [facility]. Please see references footnoted in the original [facility] edition 2016 Admission Criteria Met: Yes
[2017-03-22] MEDS ORDERED: PROVENTIL IH PRN (10:08)
[2017-03-22] MEDS: DUONEB *Not for PRN Use IH SCH ×3 (10:09→20:37)
--- NOTE | 2017-03-22 10:31 | Progress Note ---
Subjective Date of service: 03/22/17 Interval history: Assessment and plan: Acute metabolic encephalopathy: Secondary to hypoglycemia. Resolved COPD exacerbation: Start on nebulizer treatments with DuoNeb solution. Start on oral prednisone, Pulmicort and budesonide inhalations via nebulizer RUQ abdominal pain and tenderness: We will order ultrasound of the abdomen and start on H2 blockers. Follow-up with ultrasound results to rule out cholelithiasis Hypokalemia: We will do a stat BMP to check her present potassium status and supplement if necessary. Check magnesium levels Hypoglycemia: Resolved. We will hold her basal insulin and start on sliding scale coverage for now History of schizophrenia: Continue home medications HIV: Continue home medications Subjective: Patient is awake alert and oriented. She has audible rhonchi Complains of worsening shortness of breath for the past 3 days, associated with cough with mucoid sputum Also complains of severe pain in the right upper abdomen and right lower chest in the axillary plane when she moves Denies fever or chills sore throat or headaches Denies any exertional chest pain, nausea vomiting or melena Denies dysuria Objective - Constitutional Vitals: Vital Signs - 12hr 03/22/17 03/22/17 03/22/17 00:03 04:00 07:10 Temperature 97.7 F 98.0 F 98.6 F Pulse Rate 104 H 92 H 61 Pulse Rate [ Posterior Bilateral Throughout] Respiratory 18 18 20 Rate Respiratory Rate [Posterior Bilateral Throughout] Blood Pressure 167/93 134/72 109/61 O2 Sat by Pulse 98 97 97 Oximetry 03/22/17 10:09 Temperature Pulse Rate Pulse Rate [ 85 Posterior Bilateral Throughout] Respiratory Rate Respiratory 18 Rate [Posterior Bilateral Throughout] Blood Pressure O2 Sat by Pulse Oximetry General appearance: Present: no acute distress - EENT Eyes: PERRL, EOM intact ENT: hearing intact, clear oral mucosa - Neck Neck: supple, normal ROM, no masses or JVD, no carotid bruits - Respiratory Respiratory effort: normal Respiratory: bilateral: diminished, rhonchi, negative: rales - Cardiovascular Rhythm: regular Heart Sounds: Present: S1 & S2 Extremities: No edema - Gastrointestinal General gastrointestinal: Present: soft, tender (right upper quadrant and epigastrium are quite tender. No guarding or rigidity). Absent: hepatomegaly, splenomegaly Rectal Exam: deferred - Integumentary Integumentary: clear - Musculoskeletal Musculoskeletal: strength equal bilaterally - Neurologic Neurologic: moves all extremities - Psychiatric Psychiatric: appropriate mood/affect - Labs CBC & Chem 7: 03/21/17 13:45 03/21/17 13:45 Labs: Abnormal lab results 03/21/17 03/22/17 03/22/17 Range/Units 21:34 06:59 08:07 POC Glucose 362 H 184 H 162 H (70-105)
--- NOTE | 2017-03-22 10:56 | Ultrasound Report ---
ULTRASOUND ABDOMEN INDICATION: Severe right upper quadrant and epigastric tenderness. COMPARISON: 02/05/2017 CT. FINDINGS: Abdominal sonography demonstrates slight diffuse nonspecific hepatic coarsening with grossly preserved contours. No focal suspicious lesions or biliary dilatation. No gallstones, pericholecystic fluid or positive sonographic Hein's sign, though slight sludge towards the gallbladder neck not entirely excluded. Gallbladder wall thickness is 1.6 mm. CBD caliber 6-7 mm at the faizan hepatis. Homogenous spleen, 7.4 cm in length. No ascites. Normal imaged pancreas, IVC and nonaneurysmal abdominal aorta. No hydronephrosis. Right kidney is 8.3 x 3.5 x 4.6 cm with cortical thickness of 1 cm. Left kidney is 9.6 x 4.9 x 5.2 cm with cortical thickness of 1 cm. CONCLUSION: No acute abdominal sonographic abnormality with findings, as described. Thank you for the opportunity to participate in this patient's care.
[2017-03-22 10:59] LABS: Anion Gap 16 mmol/L; BUN/Creatinine Ratio 8.57; Blood Urea Nitrogen 6 mg/dL (7-17); Calcium 8.5 mg/dL (8.4-10.2); Carbon Dioxide 27 mmol/L (22-30); Chloride 105.5 mmol/L (98-107); Glucose 144 mg/dL (65-100); Potassium 3.3 mmol/L (3.6-5.0); Sodium 145 mmol/L (137-145)
[2017-03-22] MEDS: PEPCID PO SCH ×2 (11:26→21:29)
[2017-03-22] MEDS: MORPHINE IV PRN ×2 (11:27→19:05)
[2017-03-22] MEDS: NOVOLOG SUB-Q SCH ×3 (11:39→23:16)
[2017-03-22] MEDS: DELTASONE PO SCH (11:49)
[2017-03-22] MEDS: PULMICORT IH SCH (20:37)
[2017-03-22] MEDS: BROVANA NEBU IH SCH (20:37)
[2017-03-22] MEDS ORDERED: TRUVADA PO SCH (22:00)
[2017-03-22] MEDS ORDERED: DILANTIN PO SCH ×2 (22:00)
[2017-03-23] MEDS: DUONEB *Not for PRN Use IH SCH ×4 (02:18→20:23)
[2017-03-23] MEDS: NOVOLOG SUB-Q SCH ×3 (08:46→17:52)
[2017-03-23] MEDS: MORPHINE IV PRN ×2 (08:46→15:01)
[2017-03-23 09:01] LABS: Anion Gap 17 mmol/L; BUN/Creatinine Ratio 12.85; Blood Urea Nitrogen 9 mg/dL (7-17); Calcium 8.5 mg/dL (8.4-10.2); Carbon Dioxide 26 mmol/L (22-30); Chloride 106.1 mmol/L (98-107); Glucose 153 mg/dL (65-100); Sodium 145 mmol/L (137-145)
[2017-03-23] MEDS: PULMICORT IH SCH ×2 (09:04→20:21)
[2017-03-23] MEDS: BROVANA NEBU IH SCH ×2 (09:08→20:21)
[2017-03-23] MEDS ORDERED: NORVASC PO SCH (10:00)
[2017-03-23] MEDS ORDERED: VIREAD PO SCH (10:00)
[2017-03-23] MEDS ORDERED: D50W (25GM) IV ONE ×2 (10:38→12:29)
[2017-03-23] MEDS ORDERED: EMTRIVA PO SCH (11:15)
[2017-03-23] MEDS: PEPCID PO SCH (11:15)
[2017-03-23] MEDS: DELTASONE PO SCH (11:15)
[2017-03-23 15:47] VITALS: BP 134/75
--- NOTE | 2017-03-23 15:51 | Discharge Summary ---
Providers - Providers Date of Admission: 03/21/17 17:39 Date of discharge: 03/23/17 Attending physician: STAS CIFUENTES Primary care physician: PLATEMAN Hospitalization Condition: Stable Hospital course: Patient is a 61-year-old woman who resides to [facility] with a plethora co-morbidities including chronic diastolic heart failure, COPD, HIV, hypertension, bipolar, seizure disorder, type 2 diabetes mellitus and schizophrenia who presents with altered mental status and BG was found to be 27. This is patient's 12th visit to the hospital this year (2017). Patient asking for refill on her narcotics and seroquel. Acute metabolic encephalopathy: Secondary to hypoglycemia. Resolved COPD exacerbation: Start on nebulizer treatments with DuoNeb solution. Start on oral prednisone, Pulmicort and budesonide inhalations via nebulizer RUQ abdominal pain and tenderness: We will order ultrasound of the abdomen and start on H2 blockers. Follow-up with ultrasound results to rule out cholelithiasis Hypokalemia: We will do a stat BMP to check her present potassium status and supplement if necessary. Check magnesium levels Hypoglycemia: Resolved. We will hold her basal insulin and start on sliding scale coverage for now, reduce Levemir/long acting insulin from 24 to 15 units. History of schizophrenia: Continue home medications HIV: Continue home medications Vaginal discharge: empiric Flagyl x 7 days given Disposition: TO HOME OR SELFCARE Time spent for discharge: 35 minutes Core Measure Documentation - Palliative Care Palliative Care/ Comfort Measures: Not Applicable - Core Measures Any of the following diagnoses?: none - VTE Discharge Requirements Deep Vein Thrombosis/Pulmonary Embolism Present on Admission: No Has pt received <5 days of overlap therapy or INR<2.0: No Anticoagulant overlap therapy prescribed at discharge: No Contraindication No Overlap Therapy order at DC: Not Indicated Exam - Physical Exam Narrative exam: GEN: WDWN, NAD, AWAKE, ALERT, ORIENTATED x 3 HEENT: NCAT, PERRL, EOMI, OP CLEAR NECK: SUPPLE, NO THYROMEGALY, NO JVD, NO LAD CVS: RRR, NORMAL S1S2 LUNGS/CHEST: CTA B, NORMAL CHEST EXPANSION B, GOOD AIR ENTRY B ABD: SOFT, NTND, GBS, NO REBOUND OR GUARDING EXT/SKIN: NO SIGNIFICANT EDEMA OR RASH MSK: FROM X 4 EXTREMITIES NEURO: CN 2-12 GROSSLY INTACT, NO FOCAL DEFICITS PSY: CALM - Constitutional Vitals: Temp Pulse Resp BP Pulse Ox 97.5 F L 107 H 20 108/57 99 03/23/17 11:10 03/23/17 11:10 03/23/17 11:10 03/23/17 11:10 03/23/17 11:10 Plan Activity: advance as tolerated (no strenous activites until cleared by PCP. ) Diet: low salt, diabetic Special Instructions: record daily BP diary, record blood sugar diary (3 times a day and at bedtime) Additional Instructions: Make first available appointment for infection disease doctor Follow up with: PRIMARY CARE,MD [Primary Care Provider] - 7 Days Prescriptions: Phenytoin (25 mg/ml) [Dilantin] 300 mg PO QHS #30 oral.liqd QUEtiapine [SEROquel] 200 mg PO QHS #30 tablet ALBUTEROL NEB's [Proventil 0.083% NEBS] 2.5 mg IH Q3HRT PRN #30 nebu PRN Reason: Shortness Of Breath Insulin Lispro [HumaLOG VIAL] 1 dose SQ AC #1 vial metroNIDAZOLE [Flagyl] 500 mg PO Q8HR #7 day oxyCODONE /ACETAMINOPHEN [Percocet 5/325 mg] 1 tab PO Q6H PRN #30 tablet PRN Reason: Pain, Moderate (4-6) Tiotropium [place] [Spiriva Respimat] 4 gm IH DAILY #1 mist.inhal
[2017-03-23] MEDS ORDERED: DILANTIN PO SCH (22:00)
== END 2017-03-23 22:00 | disposition home or self-care (01) | DRG 291 ==
LOC: ED 12:21 → 4A 17:39
PROVIDERS: ADMIT Internal Medicine; ATTEND Internal Medicine
DX: I11.0 Hypertensive heart disease with heart failure (principal); G93.41 Metabolic encephalopathy; B20 Human immunodeficiency virus [HIV] disease; J44.1 Chronic obstructive pulmonary disease with (acute) exacerbation; E11.649 Type 2 diabetes mellitus with hypoglycemia without coma; I50.33 Acute on chronic diastolic (congestive) heart failure; E87.6 Hypokalemia; F31.9 Bipolar disorder, unspecified; F20.9 Schizophrenia, unspecified; M48.00 Spinal stenosis, site unspecified; T38.3X5A Adverse effect of insulin and oral hypoglycemic [antidiabetic] drugs, initial encounter; R10.9 Unspecified abdominal pain; Y92.89 Other specified places as the place of occurrence of the external cause; R07.9 Chest pain, unspecified; G40.909 Epilepsy, unspecified, not intractable, without status epilepticus; Z83.3 Family history of diabetes mellitus; Z82.49 Family history of ischemic heart disease and other diseases of the circulatory system; Z88.6 Allergy status to analgesic agent; Z88.1 Allergy status to other antibiotic agents; Z91.013 Allergy to seafood; Z90.710 Acquired absence of both cervix and uterus; Z87.891 Personal history of nicotine dependence; Z79.4 Long term (current) use of insulin
CPT/HCPCS: 36415; 71020; 76700; 80048; 81001; 82947; 82962; 83735; 84484; 85025; 87493; 93005; 93010; 94640; 94644; J1815; J2270; J7512

== ENCOUNTER 2017-04-10 10:42 | Emergency (ER) | payer MEDICARE ==
[2017-04-10] MEDS ORDERED: ATROVENT IH ONE (11:54)
[2017-04-10] MEDS ORDERED: PROVENTIL IH ONE (11:54)
--- NOTE | 2017-04-10 12:00 | Emergency Department Report ---
HPI - General Chief Complaint: Dyspnea/Respdistress Time Seen by Provider: 04/10/17 11:42 - HPI HPI: Room 18 The patient is a 61-year-old female presenting with a chief complaint of shortness of breath. Patient states for the past 3 days she's complained of shortness of breath. Patient admits to subjective fever and occasional cough occasional productive of white sputum. Patient does admit to nausea but denies vomiting. The patient states 2 days ago she noticed blood in her stool and having a bowel movement. Patient denies melena. Patient complains of bilateral flank pain. Patient currently gives her pain a score of 8/10 Location: [see above] Duration: 3 days Quality: [see above] Severity: Moderate Modifying factors: [see above] Context: [see above] Mode of transportation: [not driving] ED Past Medical Hx - Past Medical History Hx Hypertension: Yes Hx Congestive Heart Failure: Yes Hx Diabetes: Yes Hx Seizures: Yes Hx Psychiatric Treatment: Yes (bipolar disorder; schziphornia) Hx Asthma: Yes Hx COPD: Yes Hx HIV: Yes (last CD4 334 ~October 2016) Additional medical history: HIV, CDIFF,spinal stenosis - Surgical History Additional Surgical History: hysterectomy; rt arm skin graph - Family History Family history: no significant - Social History Smoking Status: Never Smoker Substance Use Type: None - Medications Home Medications: Home Medications Medication Instructions Recorded Confirmed Last Taken Type Bacillus Coagulans [Probiotic] 1 each PO DAILY #30 capsule. 11/15/16 03/21/17 Unknown Rx Isentress 400 mg PO BID 12/01/16 03/21/17 Unknown History ALBUTEROL NEB's [Proventil 0.083% 2.5 mg IH Q3HRT PRN #7 nebu 01/25/17 03/21/17 Unknown Rx NEBS] Hydrocortisone 0.5% 1 applic TP Q8H PRN #1 tube 01/25/17 03/21/17 Unknown Rx [Hydrocortisone 0.5% CREAM] Truvada 133 mg-200 mg Tablet 200 mg PO QHS 01/25/17 03/21/17 Unknown Rx Tenofovir [Viread] 300 mg PO QDAY tablet 02/08/17 03/21/17 Unknown Rx Furosemide [Lasix TAB] 40 mg PO QDAY #30 tablet 02/21/17 03/21/17 Unknown Rx Miconazole 2% [Monistat 7 Vag 1 applicator VG QHS #1 tube 02/21/17 03/21/17 Unknown Rx Cream] Arformoterol Nebu [Brovana Nebu] 15 mcg IH Q12HRT #60 neb 02/24/17 03/21/17 Unknown Rx Benzonatate [Tessalon Perles] 100 mg PO Q8HR #90 capsule 02/24/17 03/21/17 Unknown Rx Budesonide [Pulmicort Respules] 0.25 mg IH Q12HRT #60 nebu 02/24/17 03/21/17 Unknown Rx Ipratropium/Albuterol Sulfate 1 ampul IH TIDRT #180 ampul.neb 02/24/17 03/21/17 Unknown Rx [DUONEB *Not for PRN Use*] amLODIPine [Norvasc] 5 mg PO QDAY #30 tablet 02/24/17 03/21/17 Unknown Rx ALBUTEROL Inhaler [ProAir HFA 2 puff IH QID PRN #2 inhalation 03/13/17 03/21/17 Unknown Rx Inhaler] Ondansetron [Zofran ODT TAB] 4 mg PO Q8HR PRN #14 tab.rapdis 03/13/17 03/21/17 Unknown Rx predniSONE [Deltasone] 10 mg PO .TAPER #21 tab 03/13/17 03/21/17 Unknown Rx ALBUTEROL NEB's [Proventil 0.083% 2.5 mg IH Q3HRT PRN #30 nebu 03/23/17 Unknown Rx NEBS] Insulin Detemir [Levemir] 15 units SUB-Q QHS #1 vial 03/23/17 03/21/17 Unknown Rx Insulin Lispro [HumaLOG VIAL] 1 dose SQ AC #1 vial 03/23/17 Unknown Rx Phenytoin (25 mg/ml) [Dilantin] 300 mg PO QHS #30 oral.liqd 03/23/17 Unknown Rx QUEtiapine [SEROquel] 200 mg PO QHS #30 tablet 03/23/17 Unknown Rx Tiotropium [place] [Spiriva 4 gm IH DAILY #1 mist.inhal 03/23/17 Unknown Rx Respimat] metroNIDAZOLE [Flagyl] 500 mg PO Q8HR #7 day 03/23/17 Unknown Rx oxyCODONE /ACETAMINOPHEN [Percocet 1 tab PO Q6H PRN #30 tablet 03/23/17 Unknown Rx 5/325 mg] Ciprofloxacin HCl [Ciprofloxacin 500 mg PO Q12HR #14 tab 04/10/17 Unknown Rx TAB] metroNIDAZOLE [Flagyl] 500 mg PO Q8HR #21 tablet 04/10/17 Unknown Rx traMADol [Ultram] 50 mg PO Q6HR PRN #20 tablet 04/10/17 Unknown Rx ED Review of Systems ROS: Stated complaint: CARL Other details as noted in HPI Comment: All other systems reviewed and negative Constitutional: denies: chills, fever Eyes: denies: eye pain, eye discharge, vision change ENT: denies: ear pain, throat pain Respiratory: cough, shortness of breath Cardiovascular: denies: chest pain, palpitations Endocrine: no symptoms reported Gastrointestinal: abdominal pain, nausea, hematochezia. denies: vomiting Genitourinary: denies: urgency, dysuria, discharge Musculoskeletal: back pain Skin: denies: rash, lesions Neurological: denies: headache, weakness, paresthesias Psychiatric: denies: anxiety, depression Hematological/Lymphatic: denies: easy bleeding, easy bruising Physical Exam - Physical Exam Vital Signs: Vital Signs 04/10/17 10:58 Temperature 98.6 F Pulse Rate 90 Respiratory 18 Rate Blood Pressure 144/82 O2 Sat by Pulse 99 Oximetry Physical Exam: GENERAL: The patient is well-developed well-nourished female lying on stretcher not appearing to be in acute distress. [] HEENT: Normocephalic. Atraumatic. Extraocular motions are intact. Patient has moist mucous membranes. NECK: Supple. Trachea midline CHEST/LUNGS: Wheezing bilaterally. There is no respiratory distress noted. HEART/CARDIOVASCULAR: Regular. There is no tachycardia. There is no gallop rub or murmur. ABDOMEN: Abdomen is soft, discomfort to palpation in the epigastric region. Patient has normal bowel sounds. There is no abdominal distention. SKIN: There is no rash. There is no edema. There is no diaphoresis. NEURO: The patient is awake, alert, and oriented. The patient is cooperative. The patient has normal speech MUSCULOSKELETAL: There is no evidence of acute injury. ED Course Vital Signs 04/10/17 10:58 Temperature 98.6 F Pulse Rate 90 Respiratory 18 Rate Blood Pressure 144/82 O2 Sat by Pulse 99 Oximetry ED Medical Decision Making - Lab Data Result diagrams: 04/10/17 11:37 04/10/17 11:37 Laboratory Tests 04/10/17 04/10/17 04/10/17 11:37 11:37 11:56 WBC 5.1 RBC 3.42 L Hgb 10.5 Hct 33.0 MCV 96 MCH 31 MCHC 32 RDW 20.6 H Plt Count 281 Lymph % (Auto) 45.7 H [place] % (Auto) 8.8 H Eos % (Auto) 1.3 Baso % (Auto) 1.0 Lymph # 2.3 [place] # 0.4 Eos # 0.1 Baso # 0.1 Seg Neutrophils % 43.2 Seg Neutrophils # 2.2 Sodium 140 Potassium 4.2 Chloride 107.0 Carbon Dioxide 19 L Anion Gap 18 BUN 9 Creatinine 0.7 Estimated GFR > 60 BUN/Creatinine Ratio 12.85 Glucose 116 H POC Glucose 129 H Calcium 8.3 L Total Bilirubin 0.20 AST 17 ALT 9 Alkaline Phosphatase 126 Total Protein 6.7 Albumin 3.5 L Albumin/Globulin Ratio 1.1 - EKG Data -: EKG Interpreted by Nm EKG shows normal: sinus rhythm Rate: normal - EKG Data When compared to previous EKG there are: no significant change Interpretation: unchanged when compared t (03/23/2017) - Radiology Data Radiology results: report reviewed (CT abdomen and pelvis), image reviewed (CT abdomen and pelvis) CT abdomen and pelvis (read by radiologist) (-possible mild changes of jejunitis are seen but appears could be from under distention of the bowel loops. Moderate size hiatal hernias seen., Lumbar spondylosis seen - Differential Diagnosis COPD exacerbation, GI bleed Critical care attestation.: If time is entered above; I have spent that time in minutes in the direct care of this critically ill patient, excluding procedure time. ED Disposition Clinical Impression: Asthma with acute exacerbation, Jejunitis Disposition: DC-01 TO HOME OR SELFCARE Is pt being admited?: No Does the pt Need Aspirin: No Condition: Stable Instructions: Asthma (ED) Additional Instructions: Return to the emergency department immediately should you develop worsening symptoms, fever, inability to tolerate food or liquid or any other concerns. Prescriptions: Ciprofloxacin HCl [Ciprofloxacin TAB] 500 mg PO Q12HR #14 tab metroNIDAZOLE [Flagyl] 500 mg PO Q8HR #21 tablet traMADol [Ultram] 50 mg PO Q6HR PRN #20 tablet PRN Reason: Pain Referrals: PRIMARY CARE, [Primary Care Provider] - 3-5 Days JOSE LUIS CROSS MD [Staff Physician] - 3-5 Days (Dr. Cross is a rn complex care. Please follow up with him for further evaluation) Time of Disposition: 15:39
[2017-04-10 12:14] LABS: Eosinophils % (Auto) 1.3 % (0.0-4.3); Hemoglobin 10.5 gm/dl (10.1-14.3); Mean Corpuscular HGB Conc 32 % (30-34); Mean Corpuscular Hemoglobin 31 pg (28-32); Mean Corpuscular Volume 96 fl (79-97); Platelet Count 281 K/mm3 (140-440); Red Blood Count 3.42 M/mm3 (3.65-5.03); White Blood Count 5.1 K/mm3 (4.5-11.0)
[2017-04-10 12:16] LABS: Alanine Aminotransferase 9 units/L (7-56); Albumin 3.5 g/dL (3.9-5); Albumin/Globulin Ratio 1.1 %; Alkaline Phosphatase 126 units/L (35-129); Anion Gap 18 mmol/L; BUN/Creatinine Ratio 12.85; Blood Urea Nitrogen 9 mg/dL (7-17); Calcium 8.3 mg/dL (8.4-10.2); Carbon Dioxide 19 mmol/L (22-30); Glucose 116 mg/dL (65-100); Potassium 4.2 mmol/L (3.6-5.0); Sodium 140 mmol/L (137-145); Total Protein 6.7 g/dL (6.3-8.2)
[2017-04-10 12:29] LABS: Red Cell Distribution Width 20.6 % (13.2-15.2)
--- NOTE | 2017-04-10 13:28 | XRay Report ---
CHEST TWO VIEWS: 04/10/17 10:42:00 CLINICAL: Dyspnea. COMPARISON: 03/21/17 FINDINGS: Stable mild cardiomegaly. Stable aortic ectasia and tortuosity. The lungs are clear. No airspace disease or pleural effusion. The bones and soft tissues are normal. IMPRESSION: No acute cardiopulmonary process.
--- NOTE | 2017-04-10 15:06 | Cat Scan Report ---
FINAL REPORT PROCEDURE: CT ABDOMEN PELVIS WO CON TECHNIQUE: Computerized axial tomography of the abdomen and pelvis was performed without intravenous contrast. This study is performed without intravascular contrast material and its sensitivity for abdominal and pelvic pathology, including neoplasms, inflammation, abscess, free fluid, thrombosis, arterial dissection and infarction, is reduced compared with a contrast enhanced study. HISTORY: bilateral flank pain, hematochezia COMPARISON: CT exam dated February 05, 2017 FINDINGS: Moderate sized hiatus hernia is seen. Mild bronchiectasis is seen in the right lower lobe of the lungs. Mild hypoventilatory changes are seen at the lung bases. The liver and spleen appear normal. Gallbladder and pancreas display no abnormalities. Adrenal glands and abdominal aorta are normal in size. IVC filter is seen below the level of the renal veins. No renal abnormality is seen. Normal appendix is seen. Bladder appears normal. Phleboliths are seen in the pelvis. No adnexal masses are seen. No free pelvic fluid is seen. A few colonic diverticula are seen without evidence of diverticulitis or colitis. Mild changes of jejunitis are not excluded, as jejunum is not well-distended and appears slightly indistinct. Tiny umbilical hernia is seen containing fat. Arthritic changes cause grade 1 spondylolisthesis at L4-5 with prominent bilateral neural foraminal stenosis and prominent lateral recess and central canal stenosis. Prominent right neural foraminal stenosis is suspected at L5-S1, also. IMPRESSION: Possible mild changes of jejunitis are seen but appearance could be from underdistention of the bowel loops. Moderate sized hiatus hernia is seen. Prominent lumbar spondylosis is seen.
[2017-04-10] MEDS ORDERED: NORCO 5/325 PO ONE (15:09)
[2017-04-10] MEDS ORDERED: ZOFRAN PO ONE (16:01)
[2017-04-10] MEDS ORDERED: ZOFRAN ODT ONE (16:10)
[2017-04-10] MEDS ORDERED: ZOFRAN ODT PO ONE (17:00)
[2017-04-10 17:21] VITALS: BP 158/88
== END 2017-04-10 16:40 | disposition home or self-care (01) ==
LOC: ED 10:42
DX: J45.901 Unspecified asthma with (acute) exacerbation (principal); K52.9 Noninfective gastroenteritis and colitis, unspecified; I10 Essential (primary) hypertension; I50.9 Heart failure, unspecified; E11.9 Type 2 diabetes mellitus without complications; F31.9 Bipolar disorder, unspecified; F20.9 Schizophrenia, unspecified; J44.9 Chronic obstructive pulmonary disease, unspecified; Z90.710 Acquired absence of both cervix and uterus
CPT/HCPCS: 36415; 71020; 74176; 80053; 82271; 82962; 85025; 93005; 93010; 96372; 99285; J2930; Q0162

== ENCOUNTER 2017-05-08 12:33 | Inpatient (IN) | payer MEDICARE ==
[2017-05-08 13:58] LABS: Eosinophils % (Auto) 1.6 % (0.0-4.3); Mean Corpuscular HGB Conc 31 % (30-34); Mean Corpuscular Hemoglobin 31 pg (28-32); Mean Corpuscular Volume 100 fl (79-97); Platelet Count 116 K/mm3 (140-440); Red Blood Count 3.51 M/mm3 (3.65-5.03); Red Cell Distribution Width 19.9 % (13.2-15.2)
[2017-05-08 14:08] LABS: Anion Gap 16 mmol/L; BUN/Creatinine Ratio 16.66; Blood Urea Nitrogen 10 mg/dL (7-17); Calcium 8.7 mg/dL (8.4-10.2); Carbon Dioxide 20 mmol/L (22-30); Chloride 111.4 mmol/L (98-107); Glucose 107 mg/dL (65-100); Potassium 4.2 mmol/L (3.6-5.0); Sodium 143 mmol/L (137-145)
[2017-05-09] MEDS ORDERED: PROVENTIL IH ONE ×2 (06:18→13:20)
[2017-05-09] MEDS ORDERED: ATROVENT IH ONE (06:18)
--- NOTE | 2017-05-09 06:29 | Emergency Department Report ---
HPI - General Chief Complaint: Dyspnea/Respdistress Time Seen by Provider: 05/09/17 06:05 - HPI HPI: This is a 61 year-old female who presents to the emergency department via EMS from home with the complaint of a three-day history of shortness of breath, wheezing, mixed dry and productive cough. The patient has been using her inhaler and nebulizer at home without any relief. She has a past medical history of CHF, COPD, insulin-dependent diabetes, HIV, hypertension and has a past psychiatric history of bipolar disorder and schizophrenia. Patient has a primary care physician but has not seen them and also cannot currently regular name. She was recently admitted to [facility] for similar symptoms. No recent travel. She denies any chest pain but does complain of some pain to the bilateral upper and lower extremities. She has not oxygen dependent. She claims to be compliant with her HIV medication. ED Past Medical Hx - Past Medical History Previous Medical History?: Yes Hx Hypertension: Yes Hx Congestive Heart Failure: Yes Hx Diabetes: Yes Hx Deep Vein Thrombosis: No Hx Arthritis: No Hx Seizures: Yes Hx Psychiatric Treatment: Yes (bipolar disorder; schziphornia) Hx Asthma: Yes Hx COPD: Yes Hx HIV: Yes (last CD4 334 ~October 2016) Additional medical history: HIV, CDIFF,spinal stenosis - Surgical History Past Surgical History?: Yes Hx Pacemaker: No Hx Internal Defibrillator: No Additional Surgical History: hysterectomy; rt arm skin graph - Social History Smoking Status: Never Smoker - Medications Home Medications: Home Medications Medication Instructions Recorded Confirmed Last Taken Type Miconazole 2% [Monistat 7 Vag 1 applicator VG QHS #1 tube 02/21/17 04/22/17 1 Week Ago Rx Cream] ALBUTEROL Inhaler [ProAir HFA 2 puff IH QID PRN #2 inhalation 03/13/17 04/22/17 1 Week Ago Rx Inhaler] Phenytoin (25 mg/ml) [Dilantin] 300 mg PO QHS #30 oral.liqd 03/23/17 04/22/17 1 Week Ago Rx Arformoterol Nebu [Brovana Nebu] 15 mcg IH Q12HRT #60 neb 04/22/17 Unknown Rx Benzonatate [Tessalon Perles] 100 mg PO Q8HR #30 capsule 04/22/17 Unknown Rx Budesonide [Pulmicort Respules] 0.25 mg IH Q12HRT #60 nebu 04/22/17 Unknown Rx Emtricitabine/Tenofovir [Truvada 2 each PO DAILY #60 tablet 04/22/17 Unknown Rx 100 mg-150 mg Tablet] Furosemide [Lasix TAB] 40 mg PO QDAY #30 tablet 04/22/17 Unknown Rx Insulin Detemir [Levemir] 15 units SUB-Q QHS #1 vial 04/22/17 Unknown Rx Ipratropium/Albuterol Sulfate 1 ampul IH TIDRT #180 ampul.neb 04/22/17 Unknown Rx [DUONEB *Not for PRN Use*] Levofloxacin [Levaquin] 750 mg PO QDAY #5 tablet 04/22/17 Unknown Rx Prednisone [predniSONE 10 mg 10 mg PO .TAPER #1 tab.ds.pk 04/22/17 Unknown Rx (6-Day Pack, 21 Tabs)] QUEtiapine [SEROquel] 200 mg PO QHS #30 tablet 04/22/17 Unknown Rx Raltegravir Potassium [Isentress] 400 mg PO BID #60 tablet 04/22/17 Unknown Rx Sulfamethoxazole/Trimethoprim 1 each PO Q12HR #14 tablet 04/22/17 Unknown Rx [Bactrim DS TAB] Tenofovir [Viread] 300 mg PO QDAY tablet 04/22/17 Unknown Rx Tiotropium [place] [Spiriva 4 gm IH DAILY #1 mist.inhal 04/22/17 Unknown Rx Respimat] amLODIPine [Norvasc] 5 mg PO QDAY #30 tablet 04/22/17 Unknown Rx oxyCODONE /ACETAMINOPHEN [Percocet 1 tab PO Q6H PRN #15 tablet 04/22/17 Unknown Rx 5/325 mg] ED Review of Systems ROS: Stated complaint: CARL Other details as noted in HPI Comment: All other systems reviewed and negative Constitutional: denies: chills, fever Eyes: denies: eye pain, eye discharge, vision change ENT: denies: ear pain, throat pain Respiratory: cough, shortness of breath, wheezing Cardiovascular: denies: chest pain, palpitations Gastrointestinal: denies: abdominal pain, nausea, diarrhea Genitourinary: denies: urgency, dysuria, discharge Musculoskeletal: myalgia. denies: back pain Skin: denies: rash, lesions Neurological: denies: headache, weakness, paresthesias Physical Exam - Physical Exam Vital Signs: Vital Signs 05/08/17 05/08/17 12:42 19:48 Temperature 97.9 F 98.3 F Pulse Rate 85 Respiratory 18 18 Rate Blood Pressure 150/103 194/122 O2 Sat by Pulse 100 100 Oximetry Physical Exam: GENERAL: The patient is well-developed well-nourished. HENT: Normocephalic. Atraumatic. Patient has moist mucous membranes. EYES: Extraocular motions are intact. Pupils equal reactive to light bilaterally. NECK: Supple. Trachea is midline. CHEST/LUNGS: Moderate expiratory wheezing throughout the chest. There is a productive sounding cough heard during examination. Mild tachypnea but no accessory muscle use. There is no respiratory distress noted. HEART/CARDIOVASCULAR: Regular. There is mild tachycardia. There is no gallop rub or murmur. ABDOMEN: Abdomen is soft, nontender. Patient has normal bowel sounds. There is no abdominal distention. Obese habitus. SKIN: Skin is warm and dry. NEURO: The patient is awake, alert, and oriented. The patient is cooperative. The patient has no focal neurologic deficits. The patient has normal speech. MUSCULOSKELETAL: There is no tenderness or deformity. There is no limitation range of motion. There is no evidence of acute injury. ED Course Vital Signs 05/08/17 05/08/17 12:42 19:48 Temperature 97.9 F 98.3 F Pulse Rate 85 Respiratory 18 18 Rate Blood Pressure 150/103 194/122 O2 Sat by Pulse 100 100 Oximetry ED Medical Decision Making - Lab Data Result diagrams: 05/08/17 13:07 05/08/17 13:07 - EKG Data -: EKG Interpreted by Me EKG shows normal: sinus rhythm (with PACs), axis, intervals, QRS complexes, ST- T waves Rate: normal - EKG Data When compared to previous EKG there are: no significant change Interpretation: unchanged when compared t (04/17/17) - Radiology Data Radiology results: report reviewed, image reviewed interpreted by me: Chest x-ray does not show any acute process. There are no pleural effusions, obvious pneumonia and there is no pneumothorax. Ventilation perfusion scan is low probability for a pulmonary embolus. - Medical Decision Making 61-year-old female presents to the emergency department with complaint of shortness of breath, wheezing. She does have a mild to moderate expiratory wheeze chest as well as some mild tachypnea. She was given steroids, breathing treatments, magnesium and she continues to have some wheezing and bronchospasm and complaints of shortness of breath. D-dimer was slightly elevated and equivocal so VQ scan was done that was low probability for pulmonary embolus. Chest x-ray does not show any signs of pneumonia, pleural effusions or any acute process. Vital signs are stable including being afebrile and no significant hypoxia. However the patient continues to have the bronchospasm and complaints of shortness of breath and this case will be presented to the admitting hospitalist for possible admission. - Differential Diagnosis Asthma, COPD, Pneumonia, PE Critical Care Time: No Critical care attestation.: If time is entered above; I have spent that time in minutes in the direct care of this critically ill patient, excluding procedure time. ED Disposition Clinical Impression: Bronchospasm, Dyspnea, Acute exacerbation of chronic obstructive pulmonary disease (COPD) Disposition: OP ADMIT IP TO THIS HOSP Is pt being admited?: Yes Condition: Stable Instructions: Chronic Obstructive Pulmonary Disease (ED) Referrals: PRIMARY CARE, [Primary Care Provider] - 3-5 Days Time of Disposition: 15:40
[2017-05-09] MEDS ORDERED: NACL ONE ×2 (07:54→17:08)
[2017-05-09] MEDS ORDERED: MORPHINE IV ONE (08:42)
--- NOTE | 2017-05-09 10:03 | XRay Report ---
ROUTINE CHEST, TWO VIEWS: HISTORY: Shortness of breath. The trachea, heart, mediastinal contour, lung murcia and bony thorax are unremarkable. IMPRESSION: Unremarkable chest x-ray.
[2017-05-09] MEDS ORDERED: ZOFRAN ODT PO ONE (11:47)
[2017-05-09] MEDS ORDERED: ZOFRAN ONE (11:48)
[2017-05-09] MEDS ORDERED: ZOFRAN IV ONE (12:22)
--- NOTE | 2017-05-09 12:58 | Nuclear Medicine Report ---
LUNG SCAN, VENTILATION AND PERFUSION: History: Short of breath. Technique: 5mci of Tc99m MAA was infused for the perfusion images. 15mci XE 133 gas was inhaled for the ventilatory images. Correlation is made with a chest x-ray dated 05/08/17. Findings: Inhalation of Xenon gas demonstrates a normal distribution of the activity throughout both lungs. The wash out phases show no focal retention of activity. After injection of Technetium 99m macroaggregated albumin gamma camera imaging of the lungs in multiple projections demonstrates normal pulmonary contours with a homogeneous distribution of activity. No focal areas of perfusion deficiency are identified. IMPRESSION: Low probability for pulmonary embolus.
[2017-05-09] MEDS ORDERED: MAGNESIUM SULFATE 2GM/50ML 2 GM/50 ML BAG IV ONE (15:36)
--- NOTE | 2017-05-09 16:02 | History and Physical Report ---
History of Present Illness Chief complaint: My breathing hasnt been right History of present illness: 61 YO Female with CHF, COPD, DM, Seizure Disorder, Bipolar, Schizophrenia, HIV presents to ED for evaluation. Pt states that she has experienced shortness of breath, wheezing, as well as a productive cough with increased quantities of clear sputum over the past week, with worsening symptoms over the past three days. The patient has been using her inhaler and nebulizer at home without any relief. Pt denies fever, chills, chest pain, palpitations, NVD, Syncope, recent ill contacts, leg swelling, calf pain, prolonged travel/immobility, trauma, individual/family history of DVT/PE, or medication noncompliance. Past History Past Medical History: COPD, diabetes, heart failure, HIV/AIDS, seizures Past Surgical History: hysterectomy Social history: single. denies: smoking, alcohol abuse, prescription drug abuse Family history: diabetes, hypertension Medications and Allergies Allergies Allergy/AdvReac Type Severity Reaction Status Date / Time shellfish derived Allergy Severe Shortness Verified 03/21/17 13:04 of Breath ibuprofen [From Motrin] Allergy Mild Shortness Verified 03/21/17 13:04 of Breath tetracycline Allergy Shortness Verified 03/21/17 13:04 of Breath Home Medications Medication Instructions Recorded Confirmed Last Taken Type Miconazole 2% [Monistat 7 Vag 1 applicator VG QHS #1 tube 02/21/17 04/22/17 1 Week Ago Rx Cream] ALBUTEROL Inhaler [ProAir HFA 2 puff IH QID PRN #2 inhalation 03/13/17 04/22/17 1 Week Ago Rx Inhaler] Phenytoin (25 mg/ml) [Dilantin] 300 mg PO QHS #30 oral.liqd 03/23/17 04/22/17 1 Week Ago Rx Arformoterol Nebu [Brovana Nebu] 15 mcg IH Q12HRT #60 neb 04/22/17 Unknown Rx Benzonatate [Tessalon Perles] 100 mg PO Q8HR #30 capsule 04/22/17 Unknown Rx Budesonide [Pulmicort Respules] 0.25 mg IH Q12HRT #60 nebu 04/22/17 Unknown Rx Emtricitabine/Tenofovir [Truvada 2 each PO DAILY #60 tablet 04/22/17 Unknown Rx 100 mg-150 mg Tablet] Furosemide [Lasix TAB] 40 mg PO QDAY #30 tablet 04/22/17 Unknown Rx Insulin Detemir [Levemir] 15 units SUB-Q QHS #1 vial 04/22/17 Unknown Rx Ipratropium/Albuterol Sulfate 1 ampul IH TIDRT #180 ampul.neb 04/22/17 Unknown Rx [DUONEB *Not for PRN Use*] Levofloxacin [Levaquin] 750 mg PO QDAY #5 tablet 04/22/17 Unknown Rx Prednisone [predniSONE 10 mg 10 mg PO .TAPER #1 tab.ds.pk 04/22/17 Unknown Rx (6-Day Pack, 21 Tabs)] QUEtiapine [SEROquel] 200 mg PO QHS #30 tablet 04/22/17 Unknown Rx Raltegravir Potassium [Isentress] 400 mg PO BID #60 tablet 04/22/17 Unknown Rx Sulfamethoxazole/Trimethoprim 1 each PO Q12HR #14 tablet 04/22/17 Unknown Rx [Bactrim DS TAB] Tenofovir [Viread] 300 mg PO QDAY tablet 04/22/17 Unknown Rx Tiotropium [place] [Spiriva 4 gm IH DAILY #1 mist.inhal 04/22/17 Unknown Rx Respimat] amLODIPine [Norvasc] 5 mg PO QDAY #30 tablet 04/22/17 Unknown Rx oxyCODONE /ACETAMINOPHEN [Percocet 1 tab PO Q6H PRN #15 tablet 04/22/17 Unknown Rx 5/325 mg] Active Meds: Active Medications Magnesium Sulfate (Magnesium Sulfate 2gm/50ml) 2 gm in 50 mls @ 100 mls/hr IV ONCE ONE Stop: 05/09/17 16:05 Review of Systems Constitutional: no weight loss, no weight gain, no fever, no chills Ears, nose, mouth and throat: no ear pain, no ear discharge, no tinnitis, no decreased hearing, no nose pain, no nasal congestion Breasts: no change in shape, no swelling, no mass Cardiovascular: shortness of breath, no chest pain, no orthopnea Respiratory: cough, cough with sputum, excessive sputum, shortness of breath, wheezing, no dyspnea on exertion, no congestion Gastrointestinal: no abdominal pain, no nausea, no vomiting, no diarrhea, no constipation Genitourinary Female: no dysmenorrhea, no pelvic pain, no flank pain, no menorrhagia, no dysuria Rectal: no pain, no incontinence, no bleeding Musculoskeletal: no neck stiffness, no neck pain, no shooting arm pain, no arm numbness/tingling, no low back pain Integumentary: no rash, no pruritis, no redness, no sores, no wounds Neurological: no head injury, no transient paralysis, no paralysis, no weakness , no parathesias, no numbness, no tingling Psychiatric: no anxiety, no memory loss, no change in sleep habits, no sleep disturbances, no insomnia, no hypersomnia, no change in appetite Endocrine: no cold intolerance, no heat intolerance, no polyphagia, no excessive thirst, no polydipsia, no polyuria Hematologic/Lymphatic: no easy bruising, no easy bleeding Allergic/Immunologic: no urticaria, no allergic rhinitis, no wheezing Exam - Constitutional Vitals: Temp Pulse Resp BP Pulse Ox 98.1 F 112 H 20 122/87 99 05/09/17 07:26 05/09/17 14:58 05/09/17 14:58 05/09/17 09:01 05/09/17 09:01 General appearance: Present: mild distress - EENT Eyes: Present: PERRL ENT: hearing intact, clear oral mucosa - Neck Neck: Present: supple, normal ROM - Respiratory Respiratory: bilateral: diminished, wheezing - Cardiovascular Heart Sounds: Present: S1 & S2. Absent: rub, click - Extremities Extremities: pulses symmetrical, No edema Extremity abnormal: edema Peripheral Pulses: within normal limits - Abdominal General gastrointestinal: Present: soft, non-tender, non-distended, normal bowel sounds Female genitourinary: Present: normal - Integumentary Integumentary: Present: clear, warm, dry - Musculoskeletal Musculoskeletal: gait normal, strength equal bilaterally - Psychiatric Psychiatric: appropriate mood/affect, intact judgment & insight - Neurologic Neurologic: CNII-XII intact, moves all extremities Results - Labs CBC & Chem 7: 05/08/17 13:07 05/08/17 13:07 Labs: Abnormal lab results 05/09/17 Range/Units 07:04 D-Dimer 368.61 H (0-234) ng/mlDDU Assessment and Plan - Patient Problems (1) Acute respiratory failure Current Visit: Yes Status: Acute Qualifiers: Respiratory failure complication: R Plan to address problem: Supplemental oxygen, nebs, aspiration precautions, NIPPV as clinically indicated , (2) HIV (human immunodeficiency virus infection) Current Visit: Yes Status: Acute Plan to address problem: Resume home medication, outpatient ID f/u (3) CHF (congestive heart failure) Current Visit: Yes Status: Acute Qualifiers: Congestive heart failure type: diastolic Congestive heart failure chronicity: acute on chronic Qualified Code(s): I50.33 - Acute on chronic diastolic (congestive) heart failure Plan to address problem: Afterload reduction, fluid restriction, monitor uop q shift to ensure negative fluid balance, resume home medication, daily weights (4) Acute exacerbation of chronic obstructive pulmonary disease (COPD) Current Visit: Yes Status: Acute Plan to address problem: Supplemental oxygen, nebs, IV steroids, IV abx, supportive care. (5) Seizure disorder Current Visit: No Status: Chronic Plan to address problem: resume home medication, serial neurologic exams. (6) DVT prophylaxis Current Visit: Yes Status: Acute
[2017-05-09] MEDS ORDERED: MILK OF MAGNESIA PO PRN (17:00)
[2017-05-09] MEDS ORDERED: DULCOLAX PR PRN (17:00)
[2017-05-09] MEDS ORDERED: PROVENTIL IH PRN (20:50)
[2017-05-09] MEDS: PULMICORT IH SCH (21:17)
[2017-05-09] MEDS: BROVANA NEBU IH SCH (21:18)
[2017-05-09] MEDS: ZITHROMAX 500 MG in NACL 0.9% 250ML 250 ML IV SCH (21:33)
[2017-05-09] MEDS: TYLENOL PO PRN (22:58)
[2017-05-09] MEDS: ZOFRAN IV PRN (22:59)
[2017-05-10] MEDS: PULMICORT IH SCH ×2 (09:05→20:16)
[2017-05-10] MEDS: BROVANA NEBU IH SCH ×2 (09:05→20:16)
[2017-05-10] MEDS: ZOFRAN IV PRN (11:31)
[2017-05-10] MEDS ORDERED: Fluarix Quad 2017-2018(36 MOS+) IM ONE (12:00)
[2017-05-10] MEDS ORDERED: PNEUMOVAX 23 IM ONE (12:00)
--- NOTE | 2017-05-10 12:00 | Admit Criteria Form ---
<TATA VALVERDE - Last Filed: 05/10/17 11:58> Admission Criteria Documentation: COPD Clinical Indications for Admission to Inpatient Care ([place]/ check or initial the applicable condition/criteria) Admission is indicated for ANY ONE of the following (1)(2)(3): [ ]I. Acute exacerbation by high-risk comorbidity(e.g., pneumonia, dysrhythmia, heart failure, pleural effusion, pneumothorax) or severe underlying COPD (eg, baseline FEV1 less than 50% predicted) [X]II. Inpatient admission required[A] rather than observation care (see Chronic Obstructive Pulmonary Disease: Observation Care) because of ANY ONE of the following: [X ]a) New or pre-existing signs or symptoms of COPD (eg, dyspnea or Tachypnea at rest or with minimal activity) that persist despite outpatient and observation care treatment [ ]b) New-onset hypoxemia (room air SaO2 less than 90%, PO2 less than 60 mm Hg (8.0 kPa)) that persists despite outpatient and observation care treatment [ ]c) Worsening of pre-existing hypoxemia (eg, new or increased requirement for supplemental oxygen to maintain oxygenation at baseline level) that persists despite outpatient and observation care treatment, with oxygen treatment needs performable only in acute inpatient setting [ ]d) Hypercarbia (PCO2 greater than 40 mm Hg (5.3 kPa))-induced respiratory acidosis (pH less than 7.35) that persists despite outpatient and observation care treatment [ ]e) Supplemental oxygen or respiratory treatments for over 24 hours that are performable only in acute inpatient setting [ ]f) Chest tube placement with active evacuation (e.g., suction, drainage) (6) [ ]g) Other condition, treatment or monitoring requiring inpatient admission [ ]III. Planned invasive surgical or diagnostic procedures requiring acute- care hospitalization [ ]IV. Acute respiratory failure (e.g., uncompensated hypercarbia, severe hypoxemia) [ ]V. Severe comorbid condition (e.g., severe steroid myopathy, acute vertebral fracture) that has acutely worsened pulmonary function [ ]. Altered mental status that is severe or persistent Extended stay beyond goal length of stay may be needed for (29)(30)(31)(32)(33) : [ ]a ) Respiratory Failure. [ ]b) Severe or persisting hypoxemia or hypercarbia [ ]c) Severe or persistent dyspnea [ ]d) Clinically significant Comorbidities (e.g. chronic heart failure, atrial fibrillation with rapid response, pneumonia)(36) [ ]e) Malnutrition (33) The original [facility] DTT content created by [facility] has been revised. The portions of the content which have been revised are identified through the use of italic text or in bold, and [facility] has neither reviewed nor approved the modified material. All other unmodified content is copyright [facility] [employer]. Please see references footnoted in the original [facility] edition 2017 Admission Criteria Met: Yes <AMBER DEGROOT - Last Filed: 05/10/17 20:05> Admission Criteria Documentation: This admission criteria sheet had no bearing on any medical decision making or clinical decisions from the emergency department and full admission vs observational stay will be decided upon by the hospitalist service and any subsequent specialists seeing this patient.
[2017-05-10] MEDS: ZITHROMAX 500 MG in NACL 0.9% 250ML 250 ML IV SCH (18:00)
[2017-05-10] MEDS ORDERED: PROAIR IH PRN (18:28)
[2017-05-10] MEDS ORDERED: EMTRICITABINE PO SCH (18:30)
[2017-05-10] MEDS ORDERED: TENOFOVIR PO SCH (18:30)
--- NOTE | 2017-05-10 18:36 | Progress Note ---
Assessment and Plan Assessment and plan: 1. Acute hypoxic respiratory failure Secondary to COPD/heart failure Supplemental oxygen, nebs, NIPPV as needed 2. Acute exacerbation of COPD Continue IV corticosteroids, antibiotics, inhaled bronchodilators, supplemental oxygen, pulmonary toileting 3. Acute on chronic diastolic heart failure Resume home meds, fluid restriction, daily weights 4. Seizure disorder Resume home medications 5. HIV Resume antiretrovirals 6. DVT prophylaxis History Interval history: SOB, no other complaints Hospitalist Physical - Constitutional Vitals: Temp Pulse Resp BP Pulse Ox 98 F 106 H 20 138/82 96 05/10/17 08:00 05/10/17 14:54 05/10/17 09:16 05/10/17 08:00 05/10/17 09:17 General appearance: Present: no acute distress - EENT Eyes: Present: PERRL, EOM intact - Neck Neck: Present: supple. Absent: enlarged thyroid, masses or JVD - Respiratory Respiratory effort: normal (at rest) Respiratory: bilateral: diminished, wheezing, negative: rhonchi - Cardiovascular Rhythm: other (tachycardic) Heart Sounds: Present: S1 & S2. Absent: systolic murmur - Extremities Extremities: no ischemia - Abdominal General gastrointestinal: soft, non-tender, non-distended, normal bowel sounds - Neurologic Neurologic: CNII-XII intact, no focal deficits Results - Labs CBC & Chem 7: 05/08/17 13:07 05/08/17 13:07 Labs: Laboratory Last Values WBC 4.0 K/mm3 (4.5-11.0) L 05/08/17 13:07 RBC 3.51 M/mm3 (3.65-5.03) L 05/08/17 13:07 Hgb 11.0 gm/dl (10.1-14.3) 05/08/17 13:07 Hct 35.0 % (30.3-42.9) 05/08/17 13:07 MCV 100 fl (79-97) H 05/08/17 13:07 MCH 31 pg (28-32) 05/08/17 13:07 MCHC 31 % (30-34) 05/08/17 13:07 RDW 19.9 % (13.2-15.2) H 05/08/17 13:07 Plt Count 116 K/mm3 (140-440) L 05/08/17 13:07 Lymph % (Auto) 40.8 % (13.4-35.0) H 05/08/17 13:07 [place] % (Auto) 8.7 % (0.0-7.3) H 05/08/17 13:07 Eos % (Auto) 1.6 % (0.0-4.3) 05/08/17 13:07 Baso % (Auto) 1.0 % (0.0-1.8) 05/08/17 13:07 Lymph # 1.6 K/mm3 (1.2-5.4) 05/08/17 13:07 [place] # 0.4 K/mm3 (0.0-0.8) 05/08/17 13:07 Eos # 0.1 K/mm3 (0.0-0.4) 05/08/17 13:07 Baso # 0.0 K/mm3 (0.0-0.1) 05/08/17 13:07 Seg Neutrophils % 47.9 % (40.0-70.0) 05/08/17 13:07 Seg Neutrophils # 1.9 K/mm3 (1.8-7.7) 05/08/17 13:07 D-Dimer 368.61 ng/mlDDU (0-234) H 05/09/17 07:04 Sodium 143 mmol/L (137-145) 05/08/17 13:07 Potassium 4.2 mmol/L (3.6-5.0) 05/08/17 13:07 Chloride 111.4 mmol/L (98-107) H 05/08/17 13:07 Carbon Dioxide 20 mmol/L (22-30) L 05/08/17 13:07 Anion Gap 16 mmol/L 05/08/17 13:07 BUN 10 mg/dL (7-17) 05/08/17 13:07 Creatinine 0.6 mg/dL (0.7-1.2) L 05/08/17 13:07 Estimated GFR > 60 ml/min 05/08/17 13:07 BUN/Creatinine Ratio 16.66 % 05/08/17 13:07 Glucose 107 mg/dL (65-100) H 05/08/17 13:07 Calcium 8.7 mg/dL (8.4-10.2) 05/08/17 13:07 Troponin T < 0.010 ng/mL (0.00-0.029) 05/09/17 07:04 NT-Pro-B Natriuret Pep 178.1 pg/mL (0-900) 05/08/17 13:07
[2017-05-10] MEDS ORDERED: PROVENTIL IH PRN ×2 (19:08→20:00)
[2017-05-10] MEDS ORDERED: PULMICORT IH SCH (20:00)
[2017-05-10] MEDS ORDERED: BROVANA NEBU IH SCH (20:00)
[2017-05-10] MEDS: TYLENOL PO PRN (22:42)
[2017-05-10] MEDS: TESSALON PERLES PO SCH (22:43)
[2017-05-10] MEDS: LEVEMIR SUB-Q SCH (22:45)
[2017-05-10] MEDS: ISENTRESS PO SCH (22:45)
[2017-05-10] MEDS: DILANTIN PO SCH (23:11)
[2017-05-11] MEDS: BROVANA NEBU IH SCH ×2 (07:29→20:38)
[2017-05-11] MEDS: PULMICORT IH SCH ×2 (07:29→20:38)
--- NOTE | 2017-05-11 08:06 | Progress Note ---
<JACKELIN SANABRIA - Last Filed: 05/11/17 12:35> Assessment and Plan Assessment and plan: Patient is a 61 years old Female with CHF, COPD, DM, Seizure Disorder, Bipolar, Schizophrenia, HIV presents to ED for evaluation. Pt states that she has experienced shortness of breath, wheezing, as well as a productive cough with increased quantities of clear sputum over the past week, with worsening symptoms over the past three days. Acute respiratory failure with hypoxia Patient saturation improved with 2NLC Patient currently on 2LNC with SPO2 98%. No acute respiratory distress noted. Aggressive Nebulizers/Inhalers ABG when necessary Oxygen supplement Pulmonary consult. Supportive care Acute on chronic diastolic heart failure Continue on Diuresis, beta shivam and ACEI/ARB Strict I&O's and daily weights Low-sodium/cardiac diet, fluid restriction 1200 mg every 24 hours Closely monitor electrolytes Cardiology evaluation Acute COPD exacerbation Continue on Duoneb every 6 hours Wean IV steroid Solumedrol Continue on empiric treatment of PO azithromycin. Oxygen as necessary Elevated d-dimer Negative VQ scan VL Dopplers study ordered Hypertensive urgency Continue home antihypertensive medications Closely monitor blood pressure Seizure disorder Continue on home medications HIV Continue on home antiretrovirals Morbid obesity BMI>41 Weight reduction counselling done Nutrition consult. DVT prophylaxis Lovenox Plan discussed with patient and her nurse. History Interval history: Patient denies chest pain, dizziness, lightheadedness but she reported dyspnea with exertion. Hospitalist Physical - Constitutional Vitals: Temp Pulse Resp BP Pulse Ox 98.5 F 69 18 106/74 100 05/11/17 07:47 05/11/17 07:45 05/11/17 07:47 05/11/17 07:47 05/11/17 03:45 General appearance: Present: no acute distress - EENT Eyes: Present: PERRL ENT: hearing intact - Neck Neck: Present: supple - Respiratory Respiratory: bilateral: wheezing - Cardiovascular Heart rate: 75 Rhythm: regular Heart Sounds: Present: S1 & S2 - Extremities Extremities: no ischemia Peripheral Pulses: within normal limits - Abdominal General gastrointestinal: soft, non-tender - Integumentary Integumentary: Present: clear, warm, dry - Psychiatric Psychiatric: appropriate mood/affect - Neurologic Neurologic: CNII-XII intact - Allied Health Allied health notes reviewed: nursing Results - Labs CBC & Chem 7: 05/08/17 13:07 05/08/17 13:07 Labs: Laboratory Last Values WBC 4.0 K/mm3 (4.5-11.0) L 05/08/17 13:07 RBC 3.51 M/mm3 (3.65-5.03) L 05/08/17 13:07 Hgb 11.0 gm/dl (10.1-14.3) 05/08/17 13:07 Hct 35.0 % (30.3-42.9) 05/08/17 13:07 MCV 100 fl (79-97) H 05/08/17 13:07 MCH 31 pg (28-32) 05/08/17 13:07 MCHC 31 % (30-34) 05/08/17 13:07 RDW 19.9 % (13.2-15.2) H 05/08/17 13:07 Plt Count 116 K/mm3 (140-440) L 05/08/17 13:07 Lymph % (Auto) 40.8 % (13.4-35.0) H 05/08/17 13:07 [place] % (Auto) 8.7 % (0.0-7.3) H 05/08/17 13:07 Eos % (Auto) 1.6 % (0.0-4.3) 05/08/17 13:07 Baso % (Auto) 1.0 % (0.0-1.8) 05/08/17 13:07 Lymph # 1.6 K/mm3 (1.2-5.4) 05/08/17 13:07 [place] # 0.4 K/mm3 (0.0-0.8) 05/08/17 13:07 Eos # 0.1 K/mm3 (0.0-0.4) 05/08/17 13:07 Baso # 0.0 K/mm3 (0.0-0.1) 05/08/17 13:07 Seg Neutrophils % 47.9 % (40.0-70.0) 05/08/17 13:07 Seg Neutrophils # 1.9 K/mm3 (1.8-7.7) 05/08/17 13:07 D-Dimer 368.61 ng/mlDDU (0-234) H 05/09/17 07:04 Sodium 143 mmol/L (137-145) 05/08/17 13:07 Potassium 4.2 mmol/L (3.6-5.0) 05/08/17 13:07 Chloride 111.4 mmol/L (98-107) H 05/08/17 13:07 Carbon Dioxide 20 mmol/L (22-30) L 05/08/17 13:07 Anion Gap 16 mmol/L 05/08/17 13:07 BUN 10 mg/dL (7-17) 05/08/17 13:07 Creatinine 0.6 mg/dL (0.7-1.2) L 05/08/17 13:07 Estimated GFR > 60 ml/min 05/08/17 13:07 BUN/Creatinine Ratio 16.66 % 05/08/17 13:07 Glucose 107 mg/dL (65-100) H 05/08/17 13:07 POC Glucose 136 (70-105) H 05/10/17 21:35 Calcium 8.7 mg/dL (8.4-10.2) 05/08/17 13:07 Troponin T < 0.010 ng/mL (0.00-0.029) 05/09/17 07:04 NT-Pro-B Natriuret Pep 178.1 pg/mL (0-900) 05/08/17 13:07 <KATHARINA BAGLEY O - Last Filed: 05/11/17 16:54> Assessment and Plan Assessment and plan: I saw and evaluated the patient. I agree with the findings and the plan of care as documented in the Nurse Practitioner's~note, with the following corrections and additions. Patient is 61 yo with multible comorbidities with COPD exacerbation and CHF exacerbation. Will consult Pulmonology. Hospitalist Physical - Constitutional Vitals: Temp Pulse Resp BP Pulse Ox 98.5 F 77 20 106/74 100 05/11/17 07:47 05/11/17 14:00 05/11/17 10:00 05/11/17 07:47 05/11/17 11:49 Results - Labs CBC & Chem 7: 05/08/17 13:07 05/08/17 13:07 Labs: Laboratory Last Values WBC 4.0 K/mm3 (4.5-11.0) L 05/08/17 13:07 RBC 3.51 M/mm3 (3.65-5.03) L 05/08/17 13:07 Hgb 11.0 gm/dl (10.1-14.3) 05/08/17 13:07 Hct 35.0 % (30.3-42.9) 05/08/17 13:07 MCV 100 fl (79-97) H 05/08/17 13:07 MCH 31 pg (28-32) 05/08/17 13:07 MCHC 31 % (30-34) 05/08/17 13:07 RDW 19.9 % (13.2-15.2) H 05/08/17 13:07 Plt Count 116 K/mm3 (140-440) L 05/08/17 13:07 Lymph % (Auto) 40.8 % (13.4-35.0) H 05/08/17 13:07 [place] % (Auto) 8.7 % (0.0-7.3) H 05/08/17 13:07 Eos % (Auto) 1.6 % (0.0-4.3) 05/08/17 13:07 Baso % (Auto) 1.0 % (0.0-1.8) 05/08/17 13:07 Lymph # 1.6 K/mm3 (1.2-5.4) 05/08/17 13:07 [place] # 0.4 K/mm3 (0.0-0.8) 05/08/17 13:07 Eos # 0.1 K/mm3 (0.0-0.4) 05/08/17 13:07 Baso # 0.0 K/mm3 (0.0-0.1) 05/08/17 13:07 Seg Neutrophils % 47.9 % (40.0-70.0) 05/08/17 13:07 Seg Neutrophils # 1.9 K/mm3 (1.8-7.7) 05/08/17 13:07 D-Dimer 368.61 ng/mlDDU (0-234) H 05/09/17 07:04 Sodium 143 mmol/L (137-145) 05/08/17 13:07 Potassium 4.2 mmol/L (3.6-5.0) 05/08/17 13:07 Chloride 111.4 mmol/L (98-107) H 05/08/17 13:07 Carbon Dioxide 20 mmol/L (22-30) L 05/08/17 13:07 Anion Gap 16 mmol/L 05/08/17 13:07 BUN 10 mg/dL (7-17) 05/08/17 13:07 Creatinine 0.6 mg/dL (0.7-1.2) L 05/08/17 13:07 Estimated GFR > 60 ml/min 05/08/17 13:07 BUN/Creatinine Ratio 16.66 % 05/08/17 13:07 Glucose 107 mg/dL (65-100) H 05/08/17 13:07 POC Glucose 136 (70-105) H 05/10/17 21:35 Calcium 8.7 mg/dL (8.4-10.2) 05/08/17 13:07 Troponin T < 0.010 ng/mL (0.00-0.029) 05/09/17 07:04 NT-Pro-B Natriuret Pep 178.1 pg/mL (0-900) 05/08/17 13:07
[2017-05-11] MEDS: NORVASC PO SCH (09:01)
[2017-05-11] MEDS: LASIX PO SCH (09:06)
[2017-05-11] MEDS: EMTRIVA PO SCH (09:07)
[2017-05-11] MEDS: ISENTRESS PO SCH ×2 (09:07→23:30)
[2017-05-11] MEDS: TESSALON PERLES PO SCH ×3 (09:27→23:30)
[2017-05-11] MEDS ORDERED: VIREAD PO SCH (10:00)
[2017-05-11] MEDS: VIREAD PO SCH (12:14)
[2017-05-11] MEDS: ZOFRAN IV PRN (12:21)
--- NOTE | 2017-05-11 18:25 | Event Note ---
Date: 05/11/17 PULMONARY CONSULTATION AR. DAVISON THANK YOU FOR ASKING US TO PARTICIPATE IN THE CARE OF THIS PATIENT. FULL CONSULTATION FOLLOW. tHIS 61 YEAR OLD FEMALE ADMITTED WITH SHORTNESS OF BREATH, COUGH WITH PRODUCTIVE YELLOW BROWN SPUTUM. PATIENT HAS HISTORY OF COPD,CHF,DM,SEIZURE DISORDER,BIPOLAR,SCHIZOPHRENIA,HIV + .PATIENT DENIES FEVER BUT FEELING HOT AND COLD. COMPLAINING GENERALIZED BODY ACHES. PATIENT DENIES SMOKING,ALCOHOL OR DRUG ABUSE. nOT . 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 ALLERGIC TO SHELL FISH, TETRACYCLINE, IBUPROFEN. PATIENTS CHEST XRAY NO INFILTRATES. D DIMER ELEVATED. V/Q SCAN OBTAINED. LOW PROBABILITY FOR PULMONARY EMBOLI. VENOUS DOPPLER STUDIES RESULTS PENDING. IMPRESSION; 1. ACUTE EXACERBATION OF COPD 2. ACUTE BRONCHITIS 3. CHF 4. DM 5. SEIZURE DISORDER 6. BIPOLAR, SCHIZOPHRENIA 7. HIV PLAN; 1. O2 2 LITRES VIA NASAL CANULA. 2. ALBUTEROL/ATROVENT AEROSOL TREATMENTS Q 6 HOURS. 3. RECOMMEND INCREASE SOLUMEDRAL 100MG I/V 8 8 HOURS. 4. CONTINUE ZITHROMAX. 5. SCDS 6. RECOMMEND PROTONIX. 7. ABGS ON ROOM AIR.
[2017-05-11] MEDS: PERCOCET 5/325 PO PRN (18:28)
[2017-05-11] MEDS: ZITHROMAX PO SCH (18:28)
[2017-05-11] MEDS ORDERED: ATROVENT IH PRN (19:15)
[2017-05-11] MEDS ORDERED: PROVENTIL IH PRN (19:15)
[2017-05-12] MEDS: DILANTIN PO SCH
[2017-05-12] MEDS: LEVEMIR SUB-Q SCH
[2017-05-12] MEDS: TESSALON PERLES PO SCH (06:11)
[2017-05-12 07:23] LABS: Hematocrit 30.1 % (30.3-42.9); Hemoglobin 9.7 gm/dl (10.1-14.3); Mean Corpuscular HGB Conc 32 % (30-34); Mean Corpuscular Hemoglobin 31 pg (28-32); Mean Corpuscular Volume 97 fl (79-97); Platelet Count 179 K/mm3 (140-440); Red Cell Distribution Width 19.9 % (13.2-15.2); White Blood Count 3.5 K/mm3 (4.5-11.0)
--- NOTE | 2017-05-12 07:25 | Progress Note ---
Hospitalist Physical - Constitutional Vitals: Temp Pulse Resp BP Pulse Ox 98.0 F 79 18 95/56 98 05/12/17 03:58 05/11/17 23:55 05/12/17 03:58 05/12/17 03:58 05/11/17 23:55 General appearance: Present: no acute distress Results - Labs CBC & Chem 7: 05/12/17 06:55 05/08/17 13:07 Labs: Laboratory Last Values WBC 3.5 K/mm3 (4.5-11.0) L 05/12/17 06:55 RBC 3.10 M/mm3 (3.65-5.03) L 05/12/17 06:55 Hgb 9.7 gm/dl (10.1-14.3) L 05/12/17 06:55 Hct 30.1 % (30.3-42.9) L 05/12/17 06:55 MCV 97 fl (79-97) 05/12/17 06:55 MCH 31 pg (28-32) 05/12/17 06:55 MCHC 32 % (30-34) 05/12/17 06:55 RDW 19.9 % (13.2-15.2) H 05/12/17 06:55 Plt Count 179 K/mm3 (140-440) 05/12/17 06:55 Lymph % (Auto) 40.8 % (13.4-35.0) H 05/08/17 13:07 [place] % (Auto) 8.7 % (0.0-7.3) H 05/08/17 13:07 Eos % (Auto) 1.6 % (0.0-4.3) 05/08/17 13:07 Baso % (Auto) 1.0 % (0.0-1.8) 05/08/17 13:07 Lymph # 1.6 K/mm3 (1.2-5.4) 05/08/17 13:07 [place] # 0.4 K/mm3 (0.0-0.8) 05/08/17 13:07 Eos # 0.1 K/mm3 (0.0-0.4) 05/08/17 13:07 Baso # 0.0 K/mm3 (0.0-0.1) 05/08/17 13:07 Seg Neutrophils % 47.9 % (40.0-70.0) 05/08/17 13:07 Seg Neutrophils # 1.9 K/mm3 (1.8-7.7) 05/08/17 13:07 D-Dimer 368.61 ng/mlDDU (0-234) H 05/09/17 07:04 Sodium 143 mmol/L (137-145) 05/08/17 13:07 Potassium 4.2 mmol/L (3.6-5.0) 05/08/17 13:07 Chloride 111.4 mmol/L (98-107) H 05/08/17 13:07 Carbon Dioxide 20 mmol/L (22-30) L 05/08/17 13:07 Anion Gap 16 mmol/L 05/08/17 13:07 BUN 10 mg/dL (7-17) 05/08/17 13:07 Creatinine 0.6 mg/dL (0.7-1.2) L 05/08/17 13:07 Estimated GFR > 60 ml/min 05/08/17 13:07 BUN/Creatinine Ratio 16.66 % 05/08/17 13:07 Glucose 107 mg/dL (65-100) H 05/08/17 13:07 POC Glucose 193 (70-105) H 05/12/17 00:00 Calcium 8.7 mg/dL (8.4-10.2) 05/08/17 13:07 Troponin T < 0.010 ng/mL (0.00-0.029) 05/09/17 07:04 NT-Pro-B Natriuret Pep 178.1 pg/mL (0-900) 05/08/17 13:07
[2017-05-12 07:39] LABS: Anion Gap 14 mmol/L; BUN/Creatinine Ratio 17.14; Blood Urea Nitrogen 12 mg/dL (7-17); Calcium 8.4 mg/dL (8.4-10.2); Carbon Dioxide 24 mmol/L (22-30); Glucose 83 mg/dL (65-100); Sodium 143 mmol/L (137-145)
[2017-05-12] MEDS: BROVANA NEBU IH SCH (08:19)
[2017-05-12] MEDS: PULMICORT IH SCH (08:19)
[2017-05-12] MEDS: EMTRIVA PO SCH (10:55)
[2017-05-12] MEDS: VIREAD PO SCH (10:56)
[2017-05-12] MEDS: PERCOCET 5/325 PO PRN (10:56)
[2017-05-12] MEDS: ZITHROMAX PO SCH (10:56)
[2017-05-12] MEDS: ISENTRESS PO SCH (10:57)
[2017-05-12] MEDS: ZOFRAN IV PRN (10:58)
[2017-05-12] MEDS: LASIX PO SCH (11:09)
[2017-05-12] MEDS: NORVASC PO SCH (11:09)
[2017-05-12 11:10] VITALS: BP 100/61
--- NOTE | 2017-05-12 12:33 | Discharge Summary ---
Providers - Providers Date of Admission: 05/09/17 16:00 Date of discharge: 05/12/17 Attending physician: KATHARINA BAGLEY 05/11/17 16:50 Consult to Physician [CONS] Routine Consulting Provider: SANG BULL Reason For Exam: shortness of breath Place consult to:: Dr. 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 Pt states that she has experienced shortness of breath, wheezing, as well as a productive cough with increased quantities of clear sputum over the past week, with worsening symptoms over the past three days. Negative VQ scan no evidence of PE. Negative VL Dopplers no evidence of DVT. Patient was diagnosed with acute respiratory failure with hypoxia, Acute on chronic diastolic heart failure , Elevated D-dimer. COPD exacerbation, hypertensive urgency, seizure disorder, HIV and morbid obesity BMI>41. She was treated with supplemental oxygen, aggressive nebulizer therapy,antiretrovirals, anticonvulsant, IV steroids and antibiotics. Patient completed a full course of antibiotic. She is being discharged on oral antibiotic. Also D/C with oral steroid taper upon discharge. Patient clinically improved and stable for discharge. Patient was advised to follow up with her primary care. Discharged Diagnosed Acute respiratory failure with hypoxia Acute on chronic diastolic heart failure Acute COPD exacerbation Elevated d-dimer Hypertensive urgency Seizure disorder HIV Morbid obesity BMI>41 Disposition: DC-01 TO HOME OR SELFCARE Time spent for discharge: 33 minutes Core Measure Documentation - Palliative Care Palliative Care/ Comfort Measures: Not Applicable - Core Measures Any of the following diagnoses?: none Exam - Constitutional Vitals: Temp Pulse Resp BP Pulse Ox 98.0 F 74 16 100/61 98 05/12/17 03:58 05/12/17 11:09 05/12/17 08:30 05/12/17 11:09 05/11/17 23:55 General appearance: Present: no acute distress - EENT Eyes: Present: PERRL ENT: hearing intact - Neck Neck: Present: supple - Respiratory Respiratory effort: normal Respiratory: bilateral: wheezing (mild clinically optimized) - Cardiovascular Rhythm: regular Heart Sounds: Present: S1 & S2 - Extremities Extremities: no ischemia Peripheral Pulses: within normal limits - Abdominal General gastrointestinal: Present: soft, non-tender Female genitourinary: Present: deferred - Rectal Rectal Exam: deferred - Integumentary Integumentary: Present: clear, warm, dry - Musculoskeletal Musculoskeletal: strength equal bilaterally - Psychiatric Psychiatric: appropriate mood/affect - Neurologic Neurologic: CNII-XII intact - Allied Health Allied health notes reviewed: nursing Plan Activity: fall precautions Weight Bearing Status: Weight Bear as Tolerated Diet: low fat, low cholesterol, low salt Follow up with: PRIMARY CARE, [Primary Care Provider] - 3-5 Days Prescriptions: Azithromycin [Zithromax] 250 mg PO DAILY #6 tablet Furosemide [Lasix TAB] 40 mg PO QDAY #30 tablet oxyCODONE /ACETAMINOPHEN [Percocet 5/325 mg] 2 tab PO Q6H PRN #10 tablet PRN Reason: Pain, Moderate (4-6) Prednisone [predniSONE 10 mg (6-Day Pack, 21 Tabs)] 10 mg PO .TAPER #1 tab.ds.pk
--- NOTE | 2017-05-12 13:29 | Vascular Lab Report ---
LOWER EXTREMITY VENOUS DUPLEX: REASON FOR EXAM: Elevated D-dimer. COMMENTS ON THE RIGHT: All veins visualized are freely compressible without evidence of internal echogenicity. Flow is spontaneous and phasic throughout. COMMENTS ON THE LEFT: All veins visualized are freely compressible without evidence of internal echogenicity. Flow is spontaneous and phasic throughout. IMPRESSION: No evidence of acute or chronic deep venous thrombosis in either lower extremity.
[2017-05-12 13:53] LABS: ISTAT Base Excess 1; ISTAT HCO3 24.6; ISTAT PCO2 35.9 (35-45); ISTAT PH 7.444 (7.35-7.45); ISTAT PO2 101 (80-105); ISTAT SO2 98; ISTAT TCO2 26
[2017-05-12] MEDS ORDERED: DUONEB *Not for PRN Use IH SCH (14:00)
--- NOTE | 2017-05-12 15:57 | Consultation ---
CONSULTED BY: Dr. Llanos. HALFWAY HOUSE COUNSELOR: Rustam Hatfield M.D. REASON FOR CONSULTATION: Acute exacerbation of COPD. Dr. Llanos, thank you for asking me to participate in the care of this patient. HISTORY OF PRESENT ILLNESS: This is a 61-year-old -[place] female, obese, admitted with a complaint of shortness of breath, cough productive with yellow-brown sputum. She denied hemoptysis. She has a generalized body. The patient has a history of COPD, CHF, diabetes, seizure disorder, Bipolar and schizophrenia and HIV positive. The patient denies any fever, but she says she is feels hot and cold. SOCIAL HISTORY: The patient denies smoking, alcohol or drug abuse. She is not . She has children, 1. 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 ALLERGIES: She is allergic to SHELLFISH, TETRACYCLINE, and IBUPROFEN. The patient's chest x-ray obtained, showed no infiltrates. The patient's however D-dimer is elevated. Obtained a V/Q scan, reported low probability for pulmonary emboli and the patient's venous Doppler studies results are pending. The patient has no calf tenderness or swelling at this time. PHYSICAL EXAMINATION: GENERAL: She is alert, awake, having some wheezing. VITAL SIGNS: Temperature 98.9, pulse 60, respirations 18, blood pressure 144/62. EYES: Pupils are equal and reactive. Extraocular muscles intact. Throat, slight inflammation. No exudate. NECK: Supple. HEART: Regular rate and rhythm. Rate of 75. LUNGS: Diffuse bilateral wheezing and rhonchi. ABDOMEN: Obese, soft, bowel sounds present. No CVA tenderness. MUSCULOSKELETAL: No edema, no clubbing, no cyanosis. NEUROLOGIC: DTRs present. Babinski negative. No focal neurological deficits. IMAGING: The patient's chest x-ray reported unremarkable chest x-ray and the patient's V/Q scan reported low probability for pulmonary embolism. The patient's CBC: WBC is 4000, hemoglobin 11, hematocrit 35, platelet count is 116,000 and the patient's D-dimer is 368.61. The patient's BMP: Sodium 143, potassium 4.2, BUN 10, creatinine 0.6, calcium 8.7. IMPRESSION: 1. Acute exacerbation of chronic obstructive pulmonary disease. 2. Acute bronchitis. 3. Congestive heart failure. 4. Diabetes mellitus. 5. Seizure disorder. 6. Bipolar and schizophrenia. 7. HIV. PLAN: 1. O2 2 liters via nasal cannula. 2. Albuterol and Atrovent aerosol treatments q.6h. 3. Recommend increasing Solu-Medrol 100 mg IV q.8h. 4. Continue Zithromax. 5. SCDs. 6. Recommend Protonix. 7. ABGs on room air. I want to thank Dr. Llaons for this consultation. I will follow the patient with him. JOB# [id number] RSM/NTS
--- NOTE | 2017-05-12 17:34 | Progress Note ---
Assessment and Plan Patient still has mild bilateral wheezing. Still has cough. No acute respiratory distress.Patient is on room air. Recommend O2 2 litres via nasal canula. - Patient Problems (1) Acute exacerbation of chronic obstructive pulmonary disease (COPD) Current Visit: Yes Status: Acute Plan to address problem: 1.O2 2 litres via nasal canula 2. Albuterol/atrovent aerosol treatments q 6 hours. 3. Continue I/V solumedral. 4. SCDs 5. Recommend protonix. 6. Continue zithromax. (2) CHF (congestive heart failure) Current Visit: Yes Status: Acute Qualifiers: Congestive heart failure type: diastolic Congestive heart failure chronicity: acute on chronic Qualified Code(s): I50.33 - Acute on chronic diastolic (congestive) heart failure Plan to address problem: Patients chest xray not reported CHF Management as per primary care. (3) HIV (human immunodeficiency virus infection) Current Visit: Yes Status: Acute Plan to address problem: Management as per infectious diseases. (4) Acute bronchitis Current Visit: No Status: Acute Qualifiers: Bronchitis organism: unspecified organism Plan to address problem: Continue Zithromax. Subjective Date of service: 05/12/17 Interval history: Patient still has mild bilateral wheezing. Still has cough. No acute respiratory distress.Patient is on room air. Recommend O2 2 litres via nasal canula. Objective Vital Signs - 12hr 05/12/17 05/12/17 05/12/17 08:19 08:30 11:09 Pulse Rate 74 Pulse Rate [ 84 78 Posterior Bilateral Throughout] Respiratory 16 16 Rate [Posterior Bilateral Throughout] Blood Pressure 100/61 05/12/17 05/12/17 13:18 13:26 Pulse Rate Pulse Rate [ 82 88 Posterior Bilateral Throughout] Respiratory 15 16 Rate [Posterior Bilateral Throughout] Blood Pressure Constitutional: no acute distress, alert Eyes: non-icteric ENT: oropharynx moist Neck: supple, no lymphadenopathy Ascultation: Bilateral: wheezes Cardiovascular: regular rate and rhythm Gastrointestinal: normoactive bowel sounds, soft, non-tender Integumentary: normal Extremities: no cyanosis, no edema Neurologic: normal mental status, non-focal exam, pupils equal and round, CN II- XII normal Psychiatric: mood appropriate CBC and BMP: 05/12/17 06:55 05/12/17 06:55 ABG, PT/INR, D-dimer: ABG POC ABG pH 7.444 (7.35-7.45) 05/12/17 13:31 POC ABG pCO2 35.9 (35-45) 05/12/17 13:31 POC ABG pO2 101 (80-105) 05/12/17 13:31 POC ABG HCO3 24.6 05/12/17 13:31 POC ABG Total CO2 26 05/12/17 13:31 POC ABG O2 Sat 98 05/12/17 13:31 PT/INR, D-dimer D-Dimer 368.61 ng/mlDDU (0-234) H 05/09/17 07:04 Abnormal lab findings: Abnormal Labs 05/10/17 05/12/17 05/12/17 21:35 00:00 06:55 WBC 3.5 L RBC 3.10 L Hgb 9.7 L Hct 30.1 L RDW 19.9 H Chloride POC Glucose 136 H 193 H 05/12/17 06:55 WBC RBC Hgb Hct RDW Chloride 109.0 H POC Glucose
== END 2017-05-12 18:35 | disposition home or self-care (01) | DRG 291 ==
LOC: ED 12:33 → 4A 05-09 16:00
PROVIDERS: ADMIT Internal Medicine; ATTEND Internal Medicine
PROC: 3E0234Z Introduction of Serum, Toxoid and Vaccine into Muscle, Percutaneous Approach (ICD-10-PCS; 2017-05-10)
PROC: 4A033R1 Measurement of Arterial Saturation, Peripheral, Percutaneous Approach (ICD-10-PCS; principal; 2017-05-12)
DX: I11.0 Hypertensive heart disease with heart failure (principal); J96.01 Acute respiratory failure with hypoxia; B20 Human immunodeficiency virus [HIV] disease; J44.1 Chronic obstructive pulmonary disease with (acute) exacerbation; Z68.41 Body mass index [BMI] 40.0-44.9, adult; J44.0 Chronic obstructive pulmonary disease with (acute) lower respiratory infection; I50.33 Acute on chronic diastolic (congestive) heart failure; G40.909 Epilepsy, unspecified, not intractable, without status epilepticus; E11.9 Type 2 diabetes mellitus without complications; F31.9 Bipolar disorder, unspecified; F20.9 Schizophrenia, unspecified; I16.0 Hypertensive urgency; E66.01 Morbid (severe) obesity due to excess calories; J20.9 Acute bronchitis, unspecified; Z90.710 Acquired absence of both cervix and uterus; Z79.899 Other long term (current) drug therapy; Z79.4 Long term (current) use of insulin; Z82.49 Family history of ischemic heart disease and other diseases of the circulatory system; Z83.3 Family history of diabetes mellitus; Z91.013 Allergy to seafood; Z23 Encounter for immunization
CPT/HCPCS: 36415; 36600; 71020; 78582; 80048; 82803; 82962; 83880; 84484; 85007; 85025; 85027; 85379; 87045; 87493; 90686; 90732; 93005; 93010; 93970; 94640; 96374; 96375; A9540; A9558; J0456; J1818; J2270; J2405; J2920; J2930; J3475; J7050; Q0162

== ENCOUNTER 2017-06-04 10:59 | Inpatient (IN) | payer MEDICARE ==
[2017-06-04 11:39] LABS: Basophils % (Auto) 0.3 % (0.0-1.8); Eosinophils % (Auto) 0.7 % (0.0-4.3); Hematocrit 35.4 % (30.3-42.9); Hemoglobin 11.3 gm/dl (10.1-14.3); Mean Corpuscular HGB Conc 32 % (30-34); Mean Corpuscular Hemoglobin 31 pg (28-32); Mean Corpuscular Volume 97 fl (79-97); Platelet Count 219 K/mm3 (140-440); Red Blood Count 3.64 M/mm3 (3.65-5.03); Red Cell Distribution Width 17.8 % (13.2-15.2); White Blood Count 7.8 K/mm3 (4.5-11.0)
[2017-06-04 11:55] LABS: Anion Gap 18 mmol/L; BUN/Creatinine Ratio 30; Blood Urea Nitrogen 24 mg/dL (7-17); Calcium 8.7 mg/dL (8.4-10.2); Carbon Dioxide 24 mmol/L (22-30); Chloride 105.1 mmol/L (98-107); Glucose 97 mg/dL (65-100); Potassium 4.3 mmol/L (3.6-5.0); Sodium 143 mmol/L (137-145)
--- NOTE | 2017-06-04 12:52 | XRay Report ---
CHEST 2 VIEWS INDICATION: Shortness of breath. COMPARISON: 05/08/2017. FINDINGS: PA and lateral chest radiographs demonstrate normal cardiomediastinal silhouette. Slight horizontal peripheral right mid lung scarring is stable. Otherwise clear lungs. Intact bones. CONCLUSION: No acute disease in the chest. Thank you for the opportunity to participate in this patient's care.
[2017-06-05] MEDS ORDERED: PROVENTIL IH ONE (02:15)
[2017-06-05] MEDS ORDERED: ATROVENT IH ONE (02:15)
--- NOTE | 2017-06-05 02:30 | Emergency Department Report ---
ED General Adult HPI - General Chief complaint: Dyspnea/Respdistress Stated complaint: CARL Time Seen by Provider: 06/05/17 02:13 Source: patient Mode of arrival: Stretcher Limitations: No Limitations - History of Present Illness Initial comments: Patient is a 61-year-old female past medical history of high blood pressure, COPD and heart failure presents with shortness of breath. Patient states that her symptoms have been going on for the last 2 days. Patient's symptoms are moderate it's worse with exertion and nothing makes it better. Patient denies having any chest pain or any leg swelling. Patient is currently satting 98% on room air. She denies having any nausea or vomiting. - Related Data Previous Rx's Medication Instructions Recorded Last Taken Type Miconazole 2% [Monistat 7 Vag 1 applicator VG QHS #1 tube 02/21/17 2 Days Ago Rx Cream] ALBUTEROL Inhaler [ProAir HFA 2 puff IH QID PRN #2 inhalation 03/13/17 2 Days Ago Rx Inhaler] Phenytoin (25 mg/ml) [Dilantin] 300 mg PO QHS #30 oral.liqd 03/23/17 2 Days Ago Rx Arformoterol Nebu [Brovana Nebu] 15 mcg IH Q12HRT #60 neb 04/22/17 2 Days Ago Rx Benzonatate [Tessalon Perles] 100 mg PO Q8HR #30 capsule 04/22/17 2 Days Ago Rx Budesonide [Pulmicort Respules] 0.25 mg IH Q12HRT #60 nebu 04/22/17 2 Days Ago Rx Emtricitabine/Tenofovir (Tdf) 2 each PO DAILY #60 tablet 04/22/17 2 Days Ago Rx [Truvada 100 mg-150 mg Tablet] Insulin Detemir [Levemir] 15 units SUB-Q QHS #1 vial 04/22/17 2 Days Ago Rx Ipratropium/Albuterol Sulfate 1 ampul IH TIDRT #180 ampul.neb 04/22/17 2 Days Ago Rx [DUONEB *Not for PRN Use*] QUEtiapine [SEROquel] 200 mg PO QHS #30 tablet 04/22/17 2 Days Ago Rx Raltegravir Potassium [Isentress] 400 mg PO BID #60 tablet 08/31/17 2 Days Ago Rx Sulfamethoxazole/Trimethoprim 1 each PO Q12HR #14 tablet 04/22/17 2 Days Ago Rx [Bactrim DS TAB] Tenofovir [Viread] 300 mg PO QDAY tablet 04/22/17 2 Days Ago Rx Tiotropium [place] [Spiriva 4 gm IH DAILY #1 mist.inhal 04/22/17 2 Days Ago Rx Respimat] amLODIPine [Norvasc] 5 mg PO QDAY #30 tablet 04/22/17 2 Days Ago Rx Arformoterol Nebu [Brovana Nebu] 15 mcg IH Q12HRT ml 05/12/17 Unknown Rx Azithromycin [Zithromax] 250 mg PO DAILY #6 tablet 05/12/17 Unknown Rx Furosemide [Lasix TAB] 40 mg PO QDAY #30 tablet 05/12/17 Unknown Rx Prednisone [predniSONE 10 mg 10 mg PO .TAPER #1 tab.ds.pk 05/12/17 Unknown Rx (6-Day Pack, 21 Tabs)] Tenofovir [Viread] 300 mg PO QDAY tablet 05/12/17 Unknown Rx oxyCODONE /ACETAMINOPHEN [Percocet 2 tab PO Q6H PRN #10 tablet 05/12/17 Unknown Rx 5/325 mg] Allergies Allergy/AdvReac Type Severity Reaction Status Date / Time shellfish derived Allergy Severe Shortness Verified 06/04/17 11:05 of Breath ibuprofen [From Motrin] Allergy Mild Shortness Verified 06/04/17 11:05 of Breath tetracycline Allergy Shortness Verified 06/04/17 11:05 of Breath ED Review of Systems ROS: Stated complaint: CARL Other details as noted in HPI Constitutional: denies: chills, fever Eyes: denies: eye pain, eye discharge, vision change ENT: denies: ear pain, throat pain Respiratory: cough, shortness of breath. denies: wheezing Cardiovascular: denies: chest pain, palpitations Endocrine: no symptoms reported Gastrointestinal: denies: abdominal pain, nausea, diarrhea Genitourinary: denies: urgency, dysuria, discharge Musculoskeletal: denies: back pain, joint swelling, arthralgia Skin: denies: rash, lesions Neurological: denies: headache, weakness, paresthesias Psychiatric: denies: anxiety, depression Hematological/Lymphatic: denies: easy bleeding, easy bruising ED Past Medical Hx - Past Medical History Previous Medical History?: Yes Hx Hypertension: Yes Hx Congestive Heart Failure: Yes Hx Diabetes: Yes Hx Deep Vein Thrombosis: No Hx Arthritis: No Hx Seizures: Yes Hx Psychiatric Treatment: Yes (bipolar disorder; schziphornia) Hx Asthma: Yes Hx COPD: Yes Hx HIV: Yes (last CD4 334 ~October 2016) Additional medical history: CDIFF, spinal stenosis - Surgical History Past Surgical History?: Yes Hx Pacemaker: No Hx Internal Defibrillator: No Additional Surgical History: hysterectomy; rt arm skin graph - Social History Smoking Status: Never Smoker Substance Use Type: None - Medications Home Medications: Home Medications Medication Instructions Recorded Confirmed Last Taken Type Miconazole 2% [Monistat 7 Vag 1 applicator VG QHS #1 tube 02/21/17 05/10/17 2 Days Ago Rx Cream] ALBUTEROL Inhaler [ProAir HFA 2 puff IH QID PRN #2 inhalation 03/13/17 05/10/17 2 Days Ago Rx Inhaler] Phenytoin (25 mg/ml) [Dilantin] 300 mg PO QHS #30 oral.liqd 03/23/17 05/10/17 2 Days Ago Rx Arformoterol Nebu [Brovana Nebu] 15 mcg IH Q12HRT #60 neb 04/22/17 05/10/17 2 Days Ago Rx Benzonatate [Tessalon Perles] 100 mg PO Q8HR #30 capsule 04/22/17 05/10/17 2 Days Ago Rx Budesonide [Pulmicort Respules] 0.25 mg IH Q12HRT #60 nebu 04/22/17 05/10/17 2 Days Ago Rx Emtricitabine/Tenofovir (Tdf) 2 each PO DAILY #60 tablet 04/22/17 05/10/17 2 Days Ago Rx [Truvada 100 mg-150 mg Tablet] Insulin Detemir [Levemir] 15 units SUB-Q QHS #1 vial 04/22/17 05/10/17 2 Days Ago Rx Ipratropium/Albuterol Sulfate 1 ampul IH TIDRT #180 ampul.neb 04/22/17 05/10/17 2 Days Ago Rx [DUONEB *Not for PRN Use*] QUEtiapine [SEROquel] 200 mg PO QHS #30 tablet 04/22/17 05/10/17 2 Days Ago Rx Raltegravir Potassium [Isentress] 400 mg PO BID #60 tablet 04/22/17 05/10/17 2 Days Ago Rx Sulfamethoxazole/Trimethoprim 1 each PO Q12HR #14 tablet 04/22/17 05/10/17 2 Days Ago Rx [Bactrim DS TAB] Tenofovir [Viread] 300 mg PO QDAY tablet 04/22/17 05/10/17 2 Days Ago Rx Tiotropium [place] [Spiriva 4 gm IH DAILY #1 mist.inhal 04/22/17 05/10/17 2 Days Ago Rx Respimat] amLODIPine [Norvasc] 5 mg PO QDAY #30 tablet 04/22/17 05/10/17 2 Days Ago Rx Arformoterol Nebu [Brovana Nebu] 15 mcg IH Q12HRT ml 05/12/17 Unknown Rx Azithromycin [Zithromax] 250 mg PO DAILY #6 tablet 05/12/17 Unknown Rx Furosemide [Lasix TAB] 40 mg PO QDAY #30 tablet 05/12/17 Unknown Rx Prednisone [predniSONE 10 mg 10 mg PO .TAPER #1 tab.ds.pk 05/12/17 Unknown Rx (6-Day Pack, 21 Tabs)] Tenofovir [Viread] 300 mg PO QDAY tablet 05/12/17 Unknown Rx oxyCODONE /ACETAMINOPHEN [Percocet 2 tab PO Q6H PRN #10 tablet 05/12/17 Unknown Rx 5/325 mg] ED Physical Exam - General Limitations: No Limitations General appearance: alert, in no apparent distress - Head Head exam: Present: atraumatic, normocephalic - Eye Eye exam: Present: normal appearance - ENT ENT exam: Present: mucous membranes moist - Neck Neck exam: Present: normal inspection - Respiratory Respiratory exam: Present: wheezes. Absent: respiratory distress - Cardiovascular Cardiovascular Exam: Present: regular rate, normal rhythm. Absent: systolic murmur, diastolic murmur, rubs, gallop - GI/Abdominal GI/Abdominal exam: Present: soft, normal bowel sounds - Extremities Exam Extremities exam: Present: normal inspection - Back Exam Back exam: Present: normal inspection - Neurological Exam Neurological exam: Present: alert, oriented X3 - Psychiatric Psychiatric exam: Present: normal affect, normal mood - Skin Skin exam: Present: warm, dry, intact, normal color. Absent: rash ED Course Vital Signs 06/04/17 06/04/17 06/05/17 11:05 22:50 01:32 Temperature 98.7 F 97.9 F Pulse Rate 90 93 H Pulse Rate [ Bilateral] Respiratory 20 18 Rate Respiratory Rate [Bilateral ] Blood Pressure 131/97 148/105 135/88 Blood Pressure [Left] O2 Sat by Pulse 98 100 Oximetry 06/05/17 06/05/17 06/05/17 01:39 02:01 02:30 Temperature 98.2 F Pulse Rate 88 81 Pulse Rate [ 86 Bilateral] Respiratory 18 14 Rate Respiratory 20 Rate [Bilateral ] Blood Pressure 154/85 Blood Pressure 135/88 [Left] O2 Sat by Pulse 100 Oximetry 06/05/17 03:01 Temperature Pulse Rate 95 H Pulse Rate [ Bilateral] Respiratory 17 Rate Respiratory Rate [Bilateral ] Blood Pressure 144/94 Blood Pressure [Left] O2 Sat by Pulse Oximetry ED Medical Decision Making - Lab Data Result diagrams: 06/04/17 11:21 06/04/17 11:21 Lab Results 06/04/17 06/04/17 Range/Units 11:21 11:21 WBC 7.8 (4.5-11.0) K/mm3 RBC 3.64 L (3.65-5.03) M/mm3 Hgb 11.3 (10.1-14.3) gm/dl Hct 35.4 (30.3-42.9) % MCV 97 (79-97) fl MCH 31 (28-32) pg MCHC 32 (30-34) % RDW 17.8 H (13.2-15.2) % Plt Count 219 (140-440) K/mm3 Lymph % (Auto) 33.4 (13.4-35.0) % [place] % (Auto) 8.3 H (0.0-7.3) % Eos % (Auto) 0.7 (0.0-4.3) % Baso % (Auto) 0.3 (0.0-1.8) % Lymph # 2.6 (1.2-5.4) K/mm3 [place] # 0.6 (0.0-0.8) K/mm3 Eos # 0.1 (0.0-0.4) K/mm3 Baso # 0.0 (0.0-0.1) K/mm3 Seg Neutrophils % 57.3 (40.0-70.0) % Seg Neutrophils # 4.4 (1.8-7.7) K/mm3 Sodium 143 (137-145) mmol/L Potassium 4.3 (3.6-5.0) mmol/L Chloride 105.1 (98-107) mmol/L Carbon Dioxide 24 (22-30) mmol/L Anion Gap 18 mmol/L BUN 24 H (7-17) mg/dL Creatinine 0.8 (0.7-1.2) mg/dL Estimated GFR > 60 ml/min BUN/Creatinine Ratio 30 % Glucose 97 (65-100) mg/dL Calcium 8.7 (8.4-10.2) mg/dL Troponin T < 0.010 (0.00-0.029) ng/mL - EKG Data -: EKG Interpreted by Me - EKG Data 06/05/17 03:11 EKG shows normal sinus rhythm no ST segment elevation, normal axis, no T-wave inversion - Radiology Data Radiology results: report reviewed, image reviewed Chest x-ray shows: No acute disease in the chest - Medical Decision Making Chief medical diagnosis: COPD exacerbation Differential medical diagnosis: Heart failure, arrhythmia, non-STEMI I will get IV steroids, albuterol, ipratropium, CBC, CMP, EKG, chest x-ray, troponin Patient's symptoms are most consistent with COPD I will give patient a trial breathing treatment and steroids and will reassess to see if patient's better and can be discharged home. She is still short of breath and states that the breathing treatment has not helped her patient states that she is not able to go home with this shortness of breath. Due to this I will admit patient to the hospital. Discussed plan with patient and she agrees. Critical care attestation.: If time is entered above; I have spent that time in minutes in the direct care of this critically ill patient, excluding procedure time. ED Disposition Clinical Impression: COPD exacerbation, SOB (shortness of breath) Disposition: OP ADMIT IP TO THIS HOSP Is pt being admited?: Yes Does the pt Need Aspirin: No Condition: Stable Instructions: Chronic Obstructive Pulmonary Disease (ED) Referrals: PRIMARY CARE, [Primary Care Provider] - 3-5 Days
--- NOTE | 2017-06-05 04:29 | History and Physical Report ---
History of Present Illness Date of examination: 06/05/17 History of present illness: 61-year-old woman with history of COPD, hypertension, diabetes, CHF, seizure, HIV, unknown CD4 count comes emergency room with complaining of shortness of breath 3 days, cough productive of white phlegm . Review Of Systems: Constitutional: no weight loss Ears, eyes, nose, mouth and throat: no nasal congestion, no nasal discharge, no sinus pressure, blurry vision, diplopia Neck: No neck pain or rigidity. Cardiovascular: chest pain, orthopnea, palpitations Respiratory: + shortness of breath, cough Gastrointestinal: abdominal pain, hematochezia Genitourinary : no dysuria, frequency , hematuria Musculoskeletal: no muscle ache Integumentary: no rash, no pruritis Neurological: no parathesias, focal weakness Endocrine: no cold or heat intolerance, no polyuria or polydipsia Hematologic/Lymphatic: no easy bruising, no easy bleeding, no gland swelling Allergic/Immunologic: no urticaria, no angioedema. PAST SURGICAL HISTORY: Skin graft, hysterectomy SOCIAL HISTORY: Denies alcohol, tobacco, drugs FAMILY HISTORY: Hypertension Medications and Allergies Allergies Allergy/AdvReac Type Severity Reaction Status Date / Time shellfish derived Allergy Severe Shortness Verified 06/04/17 11:05 of Breath ibuprofen [From Motrin] Allergy Mild Shortness Verified 06/04/17 11:05 of Breath tetracycline Allergy Shortness Verified 06/04/17 11:05 of Breath Home Medications Medication Instructions Recorded Confirmed Last Taken Type Miconazole 2% [Monistat 7 Vag 1 applicator VG QHS #1 tube 02/21/17 06/05/17 2 Days Ago Rx Cream] ALBUTEROL Inhaler [ProAir HFA 2 puff IH QID PRN #2 inhalation 03/13/17 06/05/17 2 Days Ago Rx Inhaler] Phenytoin (25 mg/ml) [Dilantin] 300 mg PO QHS #30 oral.liqd 03/23/17 06/05/17 2 Days Ago Rx Benzonatate [Tessalon Perles] 100 mg PO Q8HR #30 capsule 04/22/17 06/05/17 2 Days Ago Rx Budesonide [Pulmicort Respules] 0.25 mg IH Q12HRT #60 nebu 04/22/17 06/05/17 2 Days Ago Rx Emtricitabine/Tenofovir (Tdf) 2 each PO DAILY #60 tablet 04/22/17 06/05/17 2 Days Ago Rx [Truvada 100 mg-150 mg Tablet] Insulin Detemir [Levemir] 15 units SUB-Q QHS #1 vial 04/22/17 06/05/17 2 Days Ago Rx QUEtiapine [SEROquel] 200 mg PO QHS #30 tablet 04/22/17 06/05/17 2 Days Ago Rx Raltegravir Potassium [Isentress] 400 mg PO BID #60 tablet 04/22/17 06/05/17 2 Days Ago Rx Sulfamethoxazole/Trimethoprim 1 each PO Q12HR #14 tablet 04/22/17 06/05/17 2 Days Ago Rx [Bactrim DS TAB] Tiotropium [place] [Spiriva 4 gm IH DAILY #1 mist.inhal 04/22/17 06/05/17 2 Days Ago Rx Respimat] amLODIPine [Norvasc] 5 mg PO QDAY #30 tablet 04/22/17 06/05/17 2 Days Ago Rx Arformoterol Nebu [Brovana Nebu] 15 mcg IH Q12HRT ml 05/12/17 06/05/17 Unknown Rx Azithromycin [Zithromax] 250 mg PO DAILY #6 tablet 05/12/17 06/05/17 Unknown Rx Furosemide [Lasix TAB] 40 mg PO QDAY #30 tablet 05/12/17 06/05/17 Unknown Rx Prednisone [predniSONE 10 mg 10 mg PO .TAPER #1 tab.ds.pk 05/12/17 06/05/17 Unknown Rx (6-Day Pack, 21 Tabs)] Tenofovir [Viread] 300 mg PO QDAY tablet 05/12/17 06/05/17 Unknown Rx oxyCODONE /ACETAMINOPHEN [Percocet 2 tab PO Q6H PRN #10 tablet 05/12/17 Unknown Rx 5/325 mg] Exam - Physical Exam Narrative exam: Gen. appearance: Patient lying in bed, no apparent distress HEENT: Normocephalic, atraumatic, pupils equally round and reactive to light, extraocular movement intact, and no sclericterus,. No JVD or thyromegaly or nodule,neck supple, no carotid bruit ,mucous membranes moist, no exudate or erythema Heart: S1, S2, regular rate and rhythm Lungs: Diffuse rhonchi, wheezing, decreased air entry bilaterally, breathing comfortable Abdomen: Positive bowel sounds, nontender, nondistended, no organomegaly Extremity: No edema, cyanosis, clubbing Skin: No rash, nodules, warm, dry Neuro: Oriented 3, cranial nerves II-12 intact, speech is fluent, motor and sensory intact - Constitutional Vitals: Temp Pulse Resp BP Pulse Ox 98.2 F 95 H 17 144/94 100 06/05/17 01:39 06/05/17 03:01 06/05/17 03:01 06/05/17 03:01 06/05/17 01:39 Results - Labs CBC & Chem 7: 06/06/17 04:15 06/06/17 04:15 Labs: Abnormal lab results 06/04/17 06/04/17 Range/Units 11:21 11:21 RBC 3.64 L (3.65-5.03) M/mm3 RDW 17.8 H (13.2-15.2) % [place] % (Auto) 8.3 H (0.0-7.3) % BUN 24 H (7-17) mg/dL - Imaging and Cardiology EKG: image reviewed Chest x-ray: image reviewed Assessment and Plan Assessment COPD exacerbation with bronchitis Hypertension Diabetes type 2 CHF, stable Seizure HIV Plan Admit to medicine Start high-dose IV steroids, nebulizer treatment Continue appropriate outpatient medications Check fingersticks initiate insulin sliding scale Start DVT prophylaxis
[2017-06-05] MEDS ORDERED: MORPHINE IV ONE (04:44)
[2017-06-05] MEDS ORDERED: MILK OF MAGNESIA PO PRN (05:10)
[2017-06-05] MEDS ORDERED: DULCOLAX PR PRN (05:10)
[2017-06-05] MEDS ORDERED: D50W (25GM) Syringe IV PRN (05:10)
[2017-06-05] MEDS ORDERED: TYLENOL PO PRN (05:10)
[2017-06-05 06:27] LABS: Creatine Kinase MB 1.5 ng/mL (0.0-4.0)
[2017-06-05 06:29] LABS: Creatine Kinase 146 units/L (30-135)
[2017-06-05] MEDS: ZOFRAN IV PRN ×3 (06:35→19:35)
[2017-06-05] MEDS: NOVOLOG SUB-Q SCH ×4 (08:14→22:06)
[2017-06-05] MEDS: BROVANA NEBU IH SCH ×2 (09:18→20:53)
[2017-06-05] MEDS: DUONEB *Not for PRN Use IH SCH ×3 (09:18→20:53)
[2017-06-05] MEDS ORDERED: PULMICORT IH ONE (09:20)
[2017-06-05] MEDS ORDERED: TENOFOVIR PO SCH (10:00)
[2017-06-05] MEDS ORDERED: NON-FORMULARY (Tiotropium Bromide [Spiriva Respimat] 4 GM) IH SCH (10:00)
[2017-06-05] MEDS ORDERED: EMTRICITABINE PO SCH (10:00)
[2017-06-05] MEDS ORDERED: LOVENOX SUB-Q SCH (10:00)
[2017-06-05 11:54] LABS: Creatine Kinase MB 1.1 ng/mL (0.0-4.0)
[2017-06-05 11:56] LABS: Creatine Kinase 43 units/L (30-135)
[2017-06-05] MEDS: LASIX PO SCH (11:56)
[2017-06-05] MEDS: BACTRIM DS PO SCH ×2 (11:56→22:06)
[2017-06-05] MEDS: NORVASC PO SCH (11:56)
[2017-06-05] MEDS: LOVENOX SUB-Q SCH (11:57)
[2017-06-05] MEDS: PERCOCET 5/325 PO PRN ×2 (12:01→19:35)
--- NOTE | 2017-06-05 13:05 | Consultation ---
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 Social history: single Medications and Allergies Allergies Allergy/AdvReac Type Severity Reaction Status Date / Time shellfish derived Allergy Severe Shortness Verified 06/04/17 11:05 of Breath ibuprofen [From Motrin] Allergy Mild Shortness Verified 06/04/17 11:05 of Breath tetracycline Allergy Shortness Verified 06/04/17 11:05 of Breath Home Medications Medication Instructions Recorded Confirmed Last Taken Type Miconazole 2% [Monistat 7 Vag 1 applicator VG QHS #1 tube 02/21/17 06/05/17 2 Days Ago Rx Cream] ALBUTEROL Inhaler [ProAir HFA 2 puff IH QID PRN #2 inhalation 03/13/17 06/05/17 2 Days Ago Rx Inhaler] Phenytoin (25 mg/ml) [Dilantin] 300 mg PO QHS #30 oral.liqd 03/23/17 06/05/17 2 Days Ago Rx Benzonatate [Tessalon Perles] 100 mg PO Q8HR #30 capsule 04/22/17 06/05/17 2 Days Ago Rx Budesonide [Pulmicort Respules] 0.25 mg IH Q12HRT #60 nebu 04/22/17 06/05/17 2 Days Ago Rx Emtricitabine/Tenofovir (Tdf) 2 each PO DAILY #60 tablet 04/22/17 06/05/17 2 Days Ago Rx [Truvada 100 mg-150 mg Tablet] Insulin Detemir [Levemir] 15 units SUB-Q QHS #1 vial 04/22/17 06/05/17 2 Days Ago Rx QUEtiapine [SEROquel] 200 mg PO QHS #30 tablet 04/22/17 06/05/17 2 Days Ago Rx Raltegravir Potassium [Isentress] 400 mg PO BID #60 tablet 04/22/17 06/05/17 2 Days Ago Rx Sulfamethoxazole/Trimethoprim 1 each PO Q12HR #14 tablet 04/22/17 06/05/17 2 Days Ago Rx [Bactrim DS TAB] Tiotropium [place] [Spiriva 4 gm IH DAILY #1 mist.inhal 04/22/17 06/05/17 2 Days Ago Rx Respimat] amLODIPine [Norvasc] 5 mg PO QDAY #30 tablet 04/22/17 06/05/17 2 Days Ago Rx Arformoterol Nebu [Brovana Nebu] 15 mcg IH Q12HRT ml 05/12/17 06/05/17 Unknown Rx Azithromycin [Zithromax] 250 mg PO DAILY #6 tablet 05/12/17 06/05/17 Unknown Rx Furosemide [Lasix TAB] 40 mg PO QDAY #30 tablet 05/12/17 06/05/17 Unknown Rx Prednisone [predniSONE 10 mg 10 mg PO .TAPER #1 tab.ds.pk 05/12/17 06/05/17 Unknown Rx (6-Day Pack, 21 Tabs)] Tenofovir [Viread] 300 mg PO QDAY tablet 05/12/17 06/05/17 Unknown Rx oxyCODONE /ACETAMINOPHEN [Percocet 2 tab PO Q6H PRN #10 tablet 05/12/17 Unknown Rx 5/325 mg] Active Meds: Active Medications Acetaminophen (Tylenol) 650 mg PO Q4H PRN PRN Reason: Pain MILD(1-3)/Fever >100.5/MOYER Albuterol/Ipratropium (Duoneb *Not For Prn Use*) 1 ampul IH Q6HRT [facility] Last Admin: 06/05/17 09:18 Dose: 1 ampul Amlodipine Besylate (Norvasc) 5 mg PO QDAY [facility] Last Admin: 06/05/17 11:56 Dose: 5 mg Arformoterol Tartrate (Brovana Nebu) 15 mcg IH Q12HRT [facility] Last Admin: 06/05/17 09:18 Dose: 15 mcg Benzonatate (Tessalon Perles) 100 mg PO Q8HR [facility] Bisacodyl (Dulcolax) 10 mg UT QDAY PRN PRN Reason: Constipation unrelieved by MOM Budesonide (Pulmicort) 0.25 mg IH Q12HRT [facility] Dextrose (D50w (25gm) Syringe) 50 ml IV PRN PRN PRN Reason: Hypoglycemia Emtricitabine (Emtriva) 200 mg PO QDAY [facility] Enoxaparin Sodium (Lovenox) 40 mg SUB-Q QDAY@1000 [facility] Last Admin: 06/05/17 11:57 Dose: 40 mg Furosemide (Lasix) 40 mg PO QDAY [facility] Last Admin: 06/05/17 11:56 Dose: 40 mg Insulin Aspart (Novolog) 0 units SUB-Q ACHS [facility] PRN Reason: Protocol Last Admin: 06/05/17 11:58 Dose: 4 units Insulin Detemir (Levemir) 15 units SUB-Q QHS [facility] Magnesium Hydroxide (Milk Of Magnesia) 30 ml PO Q4H PRN PRN Reason: Constipation Methylprednisolone Sodium Succinate (Solu-Medrol) 125 mg IV Q6H [facility] Last Admin: 06/05/17 06:18 Dose: Not Given Ondansetron HCl (Zofran) 4 mg IV Q8H PRN PRN Reason: N/V unrelieved by Reglan Last Admin: 06/05/17 12:01 Dose: 4 mg Oxycodone/Acetaminophen (Percocet 5/325) 2 tab PO Q6H PRN PRN Reason: Pain, Moderate (4-6) Last Admin: 06/05/17 12:01 Dose: 2 tab Phenytoin (Dilantin) 300 mg PO QHS [facility] Raltegravir (Isentress) 400 mg PO BID [facility] Tenofovir Disoproxil Fumarate (Viread) 300 mg PO QDAY [facility] Trimethoprim/Sulfamethoxazole (Bactrim Ds) 1 each PO Q12HR [facility] Last Admin: 06/05/17 11:56 Dose: 1 each Review of Systems Genitourinary: vaginal discharge Rectal Exam: deferred - Vital Signs Vital signs: Vital Signs Temp Pulse Resp BP Pulse Ox 98.7 F 90 20 131/97 98 06/04/17 11:05 06/04/17 11:05 06/04/17 11:05 06/04/17 11:05 06/04/17 11:05 Temp Pulse Resp BP Pulse Ox 99 F 95 H 20 142/88 100 06/05/17 10:42 06/05/17 11:56 06/05/17 10:42 06/05/17 11:56 06/05/17 10:42 - Physical Exam Breasts: Positive: deferred Cardiovascular: Regular rate Lungs: Positive: Normal air movement Abdomen: Positive: soft, normal bowel sounds Genitourinary (Female): Positive: normal external genitalia Vagina: Positive: other (foul discharge) Cervix: Positive: absent Uterus: Positive: absent Extremities: Positive: edema Deep Tendon Reflex Grade: Normal +2 Results Result Diagrams: 06/04/17 11:21 06/04/17 11:21 Abnormal lab results 06/05/17 06/05/17 06/05/17 Range/Units 05:43 06:32 08:11 POC Glucose 237 H 288 H (70-105) Total Creatine Kinase 146 H (30-135) units/L 06/05/17 Range/Units 11:47 POC Glucose 207 H (70-105) Total Creatine Kinase (30-135) units/L All other labs normal. Assessment and Plan Will report all findings to back up MD Lee. Cultures sent Labs ordered. Follow as indicated.
[2017-06-05] MEDS: TESSALON PERLES PO SCH ×2 (13:40→22:06)
[2017-06-05] MEDS: EMTRIVA PO SCH (13:40)
[2017-06-05] MEDS: ISENTRESS PO SCH ×2 (13:40→22:06)
[2017-06-05] MEDS: VIREAD PO SCH (13:41)
--- NOTE | 2017-06-05 15:48 | Event Note ---
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
--- NOTE | 2017-06-05 19:49 | Event Note ---
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 Agree with exam and note by RUMA Castillo. 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 She does c/o foul d/c from vagina and stool coming out of vagina. Pt does not c/o pelvic pain and does not have uterus so PID is not likely and would not recommend treatment for such. SUPERVISOR MAINTENANCE RECOMMENDATIONS: (1)Vulvar irritation: appears to have yeast of the labia extending to the thighs so would recommend treatment with diflucan. HSV II also ordered. (2)h/o rectovaginal fistula: would recommend referral to colon/rectal surgeon for evaluation and repair. This is contributing to her discharge and irritation as well. (3)Vaginal discharge: vaginal cultures have been sent for gc/chlamydia. Due to pt not having a cx these will likely be negative but will need to follow. Thank you for the consultation. Will sign off at this time.
[2017-06-05] MEDS: PULMICORT IH SCH (20:54)
[2017-06-05] MEDS: LEVEMIR SUB-Q SCH (22:07)
[2017-06-05] MEDS: DILANTIN PO SCH (22:19)
[2017-06-05] MEDS: AMBIEN PO PRN (23:24)
[2017-06-06 04:41] LABS: Basophils % (Auto) 0.3 % (0.0-1.8); Hematocrit 34.9 % (30.3-42.9); Hemoglobin 11.2 gm/dl (10.1-14.3); Mean Corpuscular HGB Conc 32 % (30-34); Mean Corpuscular Hemoglobin 31 pg (28-32); Mean Corpuscular Volume 97 fl (79-97); Platelet Count 212 K/mm3 (140-440); Red Blood Count 3.59 M/mm3 (3.65-5.03); Red Cell Distribution Width 18.1 % (13.2-15.2); White Blood Count 7.9 K/mm3 (4.5-11.0)
[2017-06-06 05:01] LABS: Anion Gap 18 mmol/L; BUN/Creatinine Ratio 21; Blood Urea Nitrogen 17 mg/dL (7-17); Calcium 8.9 mg/dL (8.4-10.2); Carbon Dioxide 24 mmol/L (22-30); Chloride 100.4 mmol/L (98-107); Glucose 255 mg/dL (65-100); Sodium 137 mmol/L (137-145)
[2017-06-06] MEDS: TESSALON PERLES PO SCH ×3 (05:14→22:52)
[2017-06-06] MEDS: PERCOCET 5/325 PO PRN ×2 (05:14→19:45)
[2017-06-06] MEDS: ZOFRAN IV PRN ×2 (05:15→19:45)
[2017-06-06] MEDS: DUONEB *Not for PRN Use IH SCH ×4 (05:41→19:34)
[2017-06-06] MEDS: NOVOLOG SUB-Q SCH ×4 (07:53→22:51)
[2017-06-06] MEDS: PULMICORT IH SCH (09:23)
[2017-06-06] MEDS: BROVANA NEBU IH SCH ×2 (09:23→19:34)
[2017-06-06] MEDS: LASIX PO SCH (11:08)
[2017-06-06] MEDS: BACTRIM DS PO SCH (11:08)
[2017-06-06] MEDS: NORVASC PO SCH (11:08)
[2017-06-06] MEDS: VIREAD PO SCH (11:09)
[2017-06-06] MEDS: ISENTRESS PO SCH ×2 (11:09→22:53)
[2017-06-06] MEDS: EMTRIVA PO SCH (11:09)
[2017-06-06] MEDS: LOVENOX SUB-Q SCH (11:10)
--- NOTE | 2017-06-06 14:22 | Progress Note ---
Assessment and Plan Assessment and plan: COPD exacerbation - on solumedrol, Iv antibiotics, nebulizer, O2 support DM2 with hyperglycemia - Continue home insulin plus sliding scale insulin HIV/AIDS - Continue medications - Continue Bactrim for prophylaxis Enterovaginal fistula - Patient was evaluated by VALVE TECHNICIAN and recommended outpatient evaluation by colorectal surgeon and I gave her information Morbid obesity - Advised about diet and exercise DVT prophylaxis - Lovenox Disposition - Continue inpatient care History Interval history: Patient was seen and evaluated this morning, she still has shortness of breath and wheezing. Hospitalist Physical - Physical exam Narrative exam: Not in cardiopulmonary distress. The patient appeared obese. Vital signs as documented. Head exam is unremarkable. No scleral icterus . Neck is without jugular venous distension, thyromegaly, or carotid bruits. Lungs wheezing all over the chest. Cardiac exam reveals regular rate and Rhythm. First and second heart sounds normal. No murmurs, rubs or gallops. Abdominal exam reveals normal bowel sounds, no masses, no organomegaly and no aortic enlargement. Extremities are nonedematous and both femoral and pedal pulses are normal. 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 No focal weakness. - Constitutional Vitals: Temp Pulse Resp BP Pulse Ox 98.5 F 69 18 130/74 100 06/06/17 07:31 06/06/17 11:08 06/06/17 09:35 06/06/17 11:08 06/06/17 09:24 Results - Labs CBC & Chem 7: 06/06/17 04:15 06/06/17 04:15 Labs: Laboratory Last Values WBC 7.9 K/mm3 (4.5-11.0) 06/06/17 04:15 RBC 3.59 M/mm3 (3.65-5.03) L 06/06/17 04:15 Hgb 11.2 gm/dl (10.1-14.3) 06/06/17 04:15 Hct 34.9 % (30.3-42.9) 06/06/17 04:15 MCV 97 fl (79-97) 06/06/17 04:15 MCH 31 pg (28-32) 06/06/17 04:15 MCHC 32 % (30-34) 06/06/17 04:15 RDW 18.1 % (13.2-15.2) H 06/06/17 04:15 Plt Count 212 K/mm3 (140-440) 06/06/17 04:15 Lymph % (Auto) 8.2 % (13.4-35.0) L 06/06/17 04:15 [place] % (Auto) 2.5 % (0.0-7.3) 06/06/17 04:15 Eos % (Auto) 0.0 % (0.0-4.3) 06/06/17 04:15 Baso % (Auto) 0.3 % (0.0-1.8) 06/06/17 04:15 Lymph # 0.7 K/mm3 (1.2-5.4) L 06/06/17 04:15 [place] # 0.2 K/mm3 (0.0-0.8) 06/06/17 04:15 Eos # 0.0 K/mm3 (0.0-0.4) 06/06/17 04:15 Baso # 0.0 K/mm3 (0.0-0.1) 06/06/17 04:15 Seg Neutrophils % 89.0 % (40.0-70.0) H 06/06/17 04:15 Seg Neutrophils # 7.0 K/mm3 (1.8-7.7) 06/06/17 04:15 Sodium 137 mmol/L (137-145) 06/06/17 04:15 Potassium 5.0 mmol/L (3.6-5.0) 06/06/17 04:15 Chloride 100.4 mmol/L (98-107) 06/06/17 04:15 Carbon Dioxide 24 mmol/L (22-30) 06/06/17 04:15 Anion Gap 18 mmol/L 06/06/17 04:15 BUN 17 mg/dL (7-17) 06/06/17 04:15 Creatinine 0.8 mg/dL (0.7-1.2) 06/06/17 04:15 Estimated GFR > 60 ml/min 06/06/17 04:15 BUN/Creatinine Ratio 21 % 06/06/17 04:15 Glucose 255 mg/dL (65-100) H 06/06/17 04:15 POC Glucose 223 (70-105) H 06/06/17 12:18 Calcium 8.9 mg/dL (8.4-10.2) 06/06/17 04:15 Total Creatine Kinase 43 units/L (30-135) 06/05/17 11:14 CK-MB (CK-2) 1.1 ng/mL (0.0-4.0) 06/05/17 11:14 CK-MB (CK-2) Rel Index 2.5 (0-4) 06/05/17 11:14 Troponin T < 0.010 ng/mL (0.00-0.029) 06/05/17 11:14 NT-Pro-B Natriuret Pep 62.07 pg/mL (0-900) 06/04/17 11:21
[2017-06-06] MEDS: ZITHROMAX PO SCH (16:01)
[2017-06-06] MEDS: AMBIEN PO PRN (22:52)
[2017-06-06] MEDS: DILANTIN PO SCH (22:53)
[2017-06-06] MEDS: LEVEMIR SUB-Q SCH (22:59)
[2017-06-07] MEDS: DUONEB *Not for PRN Use IH SCH ×5 (03:17→20:43)
[2017-06-07] MEDS: PULMICORT IH SCH ×3 (03:18→20:45)
[2017-06-07] MEDS: ZOFRAN IV PRN ×2 (05:28→11:00)
[2017-06-07] MEDS: TESSALON PERLES PO SCH ×3 (05:28→22:52)
[2017-06-07] MEDS: PERCOCET 5/325 PO PRN ×2 (05:28→11:00)
[2017-06-07] MEDS: NOVOLOG SUB-Q SCH ×3 (07:48→16:40)
[2017-06-07] MEDS: BROVANA NEBU IH SCH ×2 (08:15→20:42)
[2017-06-07 09:02] LABS: Basophils % (Auto) 0.1 % (0.0-1.8); Hematocrit 34.8 % (30.3-42.9); Hemoglobin 11.2 gm/dl (10.1-14.3); Mean Corpuscular HGB Conc 32 % (30-34); Mean Corpuscular Hemoglobin 32 pg (28-32); Mean Corpuscular Volume 98 fl (79-97); Platelet Count 214 K/mm3 (140-440); Red Blood Count 3.56 M/mm3 (3.65-5.03); White Blood Count 8.4 K/mm3 (4.5-11.0)
[2017-06-07 09:32] LABS: Anion Gap 16 mmol/L; BUN/Creatinine Ratio 21; Blood Urea Nitrogen 17 mg/dL (7-17); Calcium 8.8 mg/dL (8.4-10.2); Carbon Dioxide 26 mmol/L (22-30); Chloride 98.4 mmol/L (98-107); Glucose 302 mg/dL (65-100); Potassium 4.6 mmol/L (3.6-5.0); Sodium 136 mmol/L (137-145)
[2017-06-07] MEDS: ZITHROMAX PO SCH (09:52)
[2017-06-07] MEDS: ISENTRESS PO SCH ×2 (09:52→22:53)
[2017-06-07] MEDS: EMTRIVA PO SCH (09:53)
[2017-06-07] MEDS: NORVASC PO SCH (09:53)
[2017-06-07] MEDS: VIREAD PO SCH (09:53)
[2017-06-07] MEDS: LASIX PO SCH (09:54)
[2017-06-07] MEDS: LOVENOX SUB-Q SCH (09:56)
--- NOTE | 2017-06-07 16:42 | Progress Note ---
Assessment and Plan Assessment and plan: COPD exacerbation - on solumedrol, Iv antibiotics, nebulizer, O2 support DM2 with hyperglycemia - Continue home insulin plus sliding scale insulin - Hyperglycemia is uncontrolled and I added 5units of regular insulin QACHS HIV/AIDS - Continue medications - Continue Bactrim for prophylaxis Enterovaginal fistula - Patient was evaluated by STRAIGHTENING PRESS OPERATOR and recommended outpatient evaluation by colorectal surgeon and I gave her information Morbid obesity - Advised about diet and exercise DVT prophylaxis - Lovenox Disposition - Continue inpatient care, possibe DC tomorrow. History Interval history: Patient was seen and evaluated this morning, she still has shortness of breath and wheezing. Hospitalist Physical - Physical exam Narrative exam: Not in cardiopulmonary distress. The patient appeared obese. Vital signs as documented. Head exam is unremarkable. No scleral icterus . Neck is without jugular venous distension, thyromegaly, or carotid bruits. Lungs wheezing all over the chest. Cardiac exam reveals regular rate and Rhythm. First and second heart sounds normal. No murmurs, rubs or gallops. Abdominal exam reveals normal bowel sounds, no masses, no organomegaly and no aortic enlargement. Extremities are nonedematous and both femoral and pedal pulses are normal. RESTRICTIVE PREPARATION OPERATOR: Alert and oriented 3. No focal weakness. - Constitutional Vitals: Temp Pulse Resp BP Pulse Ox 98.2 F 99 H 20 131/76 100 06/07/17 14:00 06/07/17 14:00 06/07/17 14:00 06/07/17 14:00 06/07/17 14:00 Results - Labs CBC & Chem 7: 06/07/17 08:49 06/07/17 08:49 Labs: Laboratory Last Values WBC 8.4 K/mm3 (4.5-11.0) 06/07/17 08:49 RBC 3.56 M/mm3 (3.65-5.03) L 06/07/17 08:49 Hgb 11.2 gm/dl (10.1-14.3) 06/07/17 08:49 Hct 34.8 % (30.3-42.9) 06/07/17 08:49 MCV 98 fl (79-97) H 06/07/17 08:49 MCH 32 pg (28-32) 06/07/17 08:49 MCHC 32 % (30-34) 06/07/17 08:49 RDW 18.0 % (13.2-15.2) H 06/07/17 08:49 Plt Count 214 K/mm3 (140-440) 06/07/17 08:49 Lymph % (Auto) 8.6 % (13.4-35.0) L 06/07/17 08:49 [place] % (Auto) 2.3 % (0.0-7.3) 06/07/17 08:49 Eos % (Auto) 0.0 % (0.0-4.3) 06/07/17 08:49 Baso % (Auto) 0.1 % (0.0-1.8) 06/07/17 08:49 Lymph # 0.7 K/mm3 (1.2-5.4) L 06/07/17 08:49 [place] # 0.2 K/mm3 (0.0-0.8) 06/07/17 08:49 Eos # 0.0 K/mm3 (0.0-0.4) 06/07/17 08:49 Baso # 0.0 K/mm3 (0.0-0.1) 06/07/17 08:49 Seg Neutrophils % 89.0 % (40.0-70.0) H 06/07/17 08:49 Seg Neutrophils # 7.5 K/mm3 (1.8-7.7) 06/07/17 08:49 Sodium 136 mmol/L (137-145) L 06/07/17 08:49 Potassium 4.6 mmol/L (3.6-5.0) 06/07/17 08:49 Chloride 98.4 mmol/L (98-107) 06/07/17 08:49 Carbon Dioxide 26 mmol/L (22-30) 06/07/17 08:49 Anion Gap 16 mmol/L 06/07/17 08:49 BUN 17 mg/dL (7-17) 06/07/17 08:49 Creatinine 0.8 mg/dL (0.7-1.2) 06/07/17 08:49 Estimated GFR > 60 ml/min 06/07/17 08:49 BUN/Creatinine Ratio 21 % 06/07/17 08:49 Glucose 302 mg/dL (65-100) H 06/07/17 08:49 POC Glucose 325 (70-105) H 06/07/17 16:23 Calcium 8.8 mg/dL (8.4-10.2) 06/07/17 08:49 Total Creatine Kinase 43 units/L (30-135) 06/05/17 11:14 CK-MB (CK-2) 1.1 ng/mL (0.0-4.0) 06/05/17 11:14 CK-MB (CK-2) Rel Index 2.5 (0-4) 06/05/17 11:14 Troponin T < 0.010 ng/mL (0.00-0.029) 06/05/17 11:14 NT-Pro-B Natriuret Pep 62.07 pg/mL (0-900) 06/04/17 11:21 Blood glucose is high.
[2017-06-07] MEDS: DILANTIN PO SCH (22:15)
[2017-06-07] MEDS: AMBIEN PO PRN (22:53)
[2017-06-08] MEDS: DUONEB *Not for PRN Use IH SCH ×4 (01:55→21:46)
[2017-06-08 04:58] LABS: Basophils % (Auto) 0.4 % (0.0-1.8); Eosinophils % (Auto) 0.1 % (0.0-4.3); Hematocrit 35.3 % (30.3-42.9); Hemoglobin 11.4 gm/dl (10.1-14.3); Mean Corpuscular HGB Conc 32 % (30-34); Mean Corpuscular Hemoglobin 31 pg (28-32); Mean Corpuscular Volume 97 fl (79-97); Platelet Count 195 K/mm3 (140-440); Red Blood Count 3.65 M/mm3 (3.65-5.03); Red Cell Distribution Width 18.1 % (13.2-15.2); White Blood Count 6.2 K/mm3 (4.5-11.0)
[2017-06-08 05:13] LABS: Anion Gap 19 mmol/L; BUN/Creatinine Ratio 25; Blood Urea Nitrogen 20 mg/dL (7-17); Calcium 8.2 mg/dL (8.4-10.2); Carbon Dioxide 23 mmol/L (22-30); Chloride 102.1 mmol/L (98-107); Glucose 209 mg/dL (65-100); Sodium 138 mmol/L (137-145)
[2017-06-08 05:20] LABS: Potassium 5.6 mmol/L (3.6-5.0)
[2017-06-08] MEDS: NOVOLOG SUB-Q SCH ×4 (07:35→22:14)
[2017-06-08] MEDS: PERCOCET 5/325 PO PRN ×2 (07:42→14:43)
[2017-06-08] MEDS: ZOFRAN IV PRN (07:43)
[2017-06-08] MEDS: BROVANA NEBU IH SCH ×2 (08:09→21:00)
[2017-06-08] MEDS: PULMICORT IH SCH ×2 (08:09→21:00)
[2017-06-08] MEDS: TESSALON PERLES PO SCH ×3 (08:18→21:57)
[2017-06-08] MEDS: ISENTRESS PO SCH ×2 (08:59→21:57)
[2017-06-08] MEDS: LASIX PO SCH (09:00)
[2017-06-08] MEDS: LOVENOX SUB-Q SCH (09:00)
[2017-06-08] MEDS: EMTRIVA PO SCH (09:00)
[2017-06-08] MEDS: NORVASC PO SCH (09:01)
[2017-06-08] MEDS: VIREAD PO SCH (09:03)
[2017-06-08] MEDS: ZITHROMAX PO SCH (09:04)
--- NOTE | 2017-06-08 12:15 | Progress Note ---
Assessment and Plan Assessment and plan: COPD exacerbation - on solumedrol, Iv antibiotics, nebulizer, O2 support DM2 with hyperglycemia - Continue home insulin plus sliding scale insulin - Hyperglycemia is uncontrolled and I added 5units of regular insulin QACHS HIV/AIDS - Continue medications - Continue Bactrim for prophylaxis Enterovaginal fistula - Patient was evaluated by PRESS SECRETARY and recommended outpatient evaluation by colorectal surgeon and information was given by Dr. Krause Morbid obesity - Advised about diet and exercise DVT prophylaxis - Lovenox Disposition - Continue inpatient care, possibe DC tomorrow. History Interval history: No new issues overnight. Hospitalist Physical - Constitutional Vitals: Temp Pulse Resp BP Pulse Ox 98.4 F 75 18 117/65 98 06/08/17 08:00 06/08/17 09:01 06/08/17 08:00 06/08/17 09:01 06/08/17 08:15 General appearance: Present: no acute distress, well-nourished - EENT Eyes: Present: PERRL, EOM intact ENT: hearing intact, clear oral mucosa, dentition normal - Neck Neck: Present: supple, normal ROM - Respiratory Respiratory effort: normal Respiratory: bilateral: diminished, wheezing - Cardiovascular Rhythm: regular Heart Sounds: Present: S1 & S2. Absent: gallop, rub - Extremities Extremities: no ischemia, No edema, Full ROM - Abdominal General gastrointestinal: soft, non-tender, non-distended, normal bowel sounds - Integumentary Integumentary: Present: clear, warm, dry - Neurologic Neurologic: CNII-XII intact, moves all extremities Results - Labs CBC & Chem 7: 06/08/17 04:09 06/08/17 04:09 Labs: Laboratory Last Values WBC 6.2 K/mm3 (4.5-11.0) 06/08/17 04:09 RBC 3.65 M/mm3 (3.65-5.03) 06/08/17 04:09 Hgb 11.4 gm/dl (10.1-14.3) 06/08/17 04:09 Hct 35.3 % (30.3-42.9) 06/08/17 04:09 MCV 97 fl (79-97) 06/08/17 04:09 MCH 31 pg (28-32) 06/08/17 04:09 MCHC 32 % (30-34) 06/08/17 04:09 RDW 18.1 % (13.2-15.2) H 06/08/17 04:09 Plt Count 195 K/mm3 (140-440) 06/08/17 04:09 Lymph % (Auto) 21.6 % (13.4-35.0) 06/08/17 04:09 [place] % (Auto) 7.6 % (0.0-7.3) H 06/08/17 04:09 Eos % (Auto) 0.1 % (0.0-4.3) 06/08/17 04:09 Baso % (Auto) 0.4 % (0.0-1.8) 06/08/17 04:09 Lymph # 1.3 K/mm3 (1.2-5.4) 06/08/17 04:09 [place] # 0.5 K/mm3 (0.0-0.8) 06/08/17 04:09 Eos # 0.0 K/mm3 (0.0-0.4) 06/08/17 04:09 Baso # 0.0 K/mm3 (0.0-0.1) 06/08/17 04:09 Seg Neutrophils % 70.3 % (40.0-70.0) H 06/08/17 04:09 Seg Neutrophils # 4.4 K/mm3 (1.8-7.7) 06/08/17 04:09 Sodium 138 mmol/L (137-145) 06/08/17 04:09 Potassium 5.6 mmol/L (3.6-5.0) H D 06/08/17 04:09 Chloride 102.1 mmol/L (98-107) 06/08/17 04:09 Carbon Dioxide 23 mmol/L (22-30) 06/08/17 04:09 Anion Gap 19 mmol/L 06/08/17 04:09 BUN 20 mg/dL (7-17) H 06/08/17 04:09 Creatinine 0.8 mg/dL (0.7-1.2) 06/08/17 04:09 Estimated GFR > 60 ml/min 06/08/17 04:09 BUN/Creatinine Ratio 25 % 06/08/17 04:09 Glucose 209 mg/dL (65-100) H 06/08/17 04:09 POC Glucose 186 (70-105) H 06/08/17 11:16 Calcium 8.2 mg/dL (8.4-10.2) L 06/08/17 04:09 Total Creatine Kinase 43 units/L (30-135) 06/05/17 11:14 CK-MB (CK-2) 1.1 ng/mL (0.0-4.0) 06/05/17 11:14 CK-MB (CK-2) Rel Index 2.5 (0-4) 06/05/17 11:14 Troponin T < 0.010 ng/mL (0.00-0.029) 06/05/17 11:14 NT-Pro-B Natriuret Pep 62.07 pg/mL (0-900) 06/04/17 11:21
[2017-06-08] MEDS: DILANTIN PO SCH (21:57)
[2017-06-08] MEDS: LEVEMIR SUB-Q SCH (22:05)
[2017-06-09] MEDS: TESSALON PERLES PO SCH ×3 (05:51→22:38)
[2017-06-09] MEDS: PERCOCET 5/325 PO PRN ×3 (05:52→22:38)
[2017-06-09 07:24] LABS: Basophils % (Auto) 0.1 % (0.0-1.8); Hematocrit 32.8 % (30.3-42.9); Hemoglobin 10.8 gm/dl (10.1-14.3); Mean Corpuscular HGB Conc 33 % (30-34); Mean Corpuscular Hemoglobin 32 pg (28-32); Mean Corpuscular Volume 96 fl (79-97); Platelet Count 198 K/mm3 (140-440); Red Cell Distribution Width 17.3 % (13.2-15.2)
[2017-06-09 07:33] LABS: Anion Gap 14 mmol/L; BUN/Creatinine Ratio 27; Blood Urea Nitrogen 19 mg/dL (7-17); Calcium 8.5 mg/dL (8.4-10.2); Carbon Dioxide 29 mmol/L (22-30); Chloride 103.2 mmol/L (98-107); Glucose 238 mg/dL (65-100); Potassium 4.9 mmol/L (3.6-5.0); Sodium 141 mmol/L (137-145)
[2017-06-09] MEDS: DUONEB *Not for PRN Use IH SCH ×3 (08:14→22:17)
[2017-06-09] MEDS: PULMICORT IH SCH ×2 (08:14→22:17)
[2017-06-09] MEDS: BROVANA NEBU IH SCH ×2 (08:14→22:17)
[2017-06-09] MEDS: NOVOLOG SUB-Q SCH ×4 (09:06→22:41)
[2017-06-09] MEDS: LASIX PO SCH (09:36)
[2017-06-09] MEDS: LOVENOX SUB-Q SCH (09:36)
[2017-06-09] MEDS: EMTRIVA PO SCH (09:37)
[2017-06-09] MEDS: ISENTRESS PO SCH ×2 (09:37→22:38)
[2017-06-09] MEDS: ZITHROMAX PO SCH (09:37)
[2017-06-09] MEDS: VIREAD PO SCH (09:38)
[2017-06-09] MEDS: NORVASC PO SCH (09:42)
--- NOTE | 2017-06-09 11:36 | Progress Note ---
Assessment and Plan Assessment and plan: COPD exacerbation -Improved but still with significant wheezing - on solumedrol and we will continue to taper, IV antibiotics, nebulizer, O2 support DM2 with hyperglycemia - Continue home insulin plus sliding scale insulin HIV/AIDS - Continue medications - Continue Bactrim for prophylaxis Enterovaginal fistula - Patient was evaluated by CIGAR HEAD STRINGER and recommended outpatient evaluation by colorectal surgeon and information was given by Dr. Krause Vaginal candidiasis. -Continue Diflucan Morbid obesity - Advised about diet and exercise DVT prophylaxis - Lovenox Disposition - Continue inpatient care, possibe DC tomorrow. History Interval history: No new issues overnight. Hospitalist Physical - Constitutional Vitals: Temp Pulse Resp BP Pulse Ox 98.9 F 78 18 122/93 100 06/09/17 08:13 06/09/17 09:42 06/09/17 08:22 06/09/17 09:42 06/09/17 08:13 General appearance: Present: no acute distress, well-nourished - EENT Eyes: Present: PERRL, EOM intact ENT: hearing intact, clear oral mucosa, dentition normal - Neck Neck: Present: supple, normal ROM - Respiratory Respiratory effort: normal Respiratory: bilateral: CTA - Cardiovascular Rhythm: regular Heart Sounds: Present: S1 & S2. Absent: gallop, rub - Extremities Extremities: no ischemia, No edema, Full ROM - Abdominal General gastrointestinal: soft, non-tender, non-distended, normal bowel sounds - Integumentary Integumentary: Present: clear, warm, dry - Neurologic Neurologic: CNII-XII intact, moves all extremities Results - Labs CBC & Chem 7: 06/09/17 06:50 06/09/17 06:50 Labs: Laboratory Last Values WBC 7.0 K/mm3 (4.5-11.0) 06/09/17 06:50 RBC 3.40 M/mm3 (3.65-5.03) L 06/09/17 06:50 Hgb 10.8 gm/dl (10.1-14.3) 06/09/17 06:50 Hct 32.8 % (30.3-42.9) 06/09/17 06:50 MCV 96 fl (79-97) 06/09/17 06:50 MCH 32 pg (28-32) 06/09/17 06:50 MCHC 33 % (30-34) 06/09/17 06:50 RDW 17.3 % (13.2-15.2) H 06/09/17 06:50 Plt Count 198 K/mm3 (140-440) 06/09/17 06:50 Lymph % (Auto) 22.2 % (13.4-35.0) 06/09/17 06:50 [place] % (Auto) 6.4 % (0.0-7.3) 06/09/17 06:50 Eos % (Auto) 0.0 % (0.0-4.3) 06/09/17 06:50 Baso % (Auto) 0.1 % (0.0-1.8) 06/09/17 06:50 Lymph # 1.5 K/mm3 (1.2-5.4) 06/09/17 06:50 [place] # 0.4 K/mm3 (0.0-0.8) 06/09/17 06:50 Eos # 0.0 K/mm3 (0.0-0.4) 06/09/17 06:50 Baso # 0.0 K/mm3 (0.0-0.1) 06/09/17 06:50 Seg Neutrophils % 71.3 % (40.0-70.0) H 06/09/17 06:50 Seg Neutrophils # 5.0 K/mm3 (1.8-7.7) 06/09/17 06:50 Sodium 141 mmol/L (137-145) 06/09/17 06:50 Potassium 4.9 mmol/L (3.6-5.0) 06/09/17 06:50 Chloride 103.2 mmol/L (98-107) 06/09/17 06:50 Carbon Dioxide 29 mmol/L (22-30) 06/09/17 06:50 Anion Gap 14 mmol/L 06/09/17 06:50 BUN 19 mg/dL (7-17) H 06/09/17 06:50 Creatinine 0.7 mg/dL (0.7-1.2) 06/09/17 06:50 Estimated GFR > 60 ml/min 06/09/17 06:50 BUN/Creatinine Ratio 27 % 06/09/17 06:50 Glucose 238 mg/dL (65-100) H 06/09/17 06:50 POC Glucose 202 (70-105) H 06/09/17 07:33 Calcium 8.5 mg/dL (8.4-10.2) 06/09/17 06:50 Total Creatine Kinase 43 units/L (30-135) 06/05/17 11:14 CK-MB (CK-2) 1.1 ng/mL (0.0-4.0) 06/05/17 11:14 CK-MB (CK-2) Rel Index 2.5 (0-4) 06/05/17 11:14 Troponin T < 0.010 ng/mL (0.00-0.029) 06/05/17 11:14 NT-Pro-B Natriuret Pep 62.07 pg/mL (0-900) 06/04/17 11:21 C.trachomatis DNA (SDA) Not detected (Not Detected) 06/05/17 14:00 N.gonorrhoeae DNA (SDA) Not detected (Not Detected) 06/05/17 14:00
[2017-06-09] MEDS: ZOFRAN IV PRN ×2 (15:28→22:38)
[2017-06-09] MEDS: DILANTIN PO SCH (22:37)
[2017-06-09] MEDS: LEVEMIR SUB-Q SCH (22:42)
[2017-06-10] MEDS: AMBIEN PO PRN ×2 (00:06→22:50)
[2017-06-10] MEDS: TESSALON PERLES PO SCH ×3 (06:44→22:51)
[2017-06-10] MEDS: DUONEB *Not for PRN Use IH SCH ×5 (08:49→20:42)
[2017-06-10] MEDS: PULMICORT IH SCH ×3 (09:09→20:41)
[2017-06-10] MEDS: BROVANA NEBU IH SCH ×2 (09:26→20:41)
[2017-06-10] MEDS: PERCOCET 5/325 PO PRN ×2 (10:18→16:00)
[2017-06-10] MEDS: NOVOLOG SUB-Q SCH ×4 (10:18→22:52)
[2017-06-10] MEDS: EMTRIVA PO SCH (10:19)
[2017-06-10] MEDS: ISENTRESS PO SCH ×2 (10:20→22:51)
[2017-06-10] MEDS: LOVENOX SUB-Q SCH (10:20)
[2017-06-10] MEDS: VIREAD PO SCH (10:21)
[2017-06-10] MEDS: ZITHROMAX PO SCH (10:21)
[2017-06-10] MEDS: LASIX PO SCH (10:24)
[2017-06-10] MEDS: NORVASC PO SCH (10:25)
--- NOTE | 2017-06-10 12:06 | Progress Note ---
Assessment and Plan Assessment and plan: COPD exacerbation -Improved but still with significant wheezing - on solumedrol and we will continue to taper, IV antibiotics, nebulizer, O2 support -Pulmonary consultation. DM2 with hyperglycemia - Continue home insulin plus sliding scale insulin HIV/AIDS - Continue medications - Continue Bactrim for prophylaxis Enterovaginal fistula - Patient was evaluated by VE TEACHER and recommended outpatient evaluation by colorectal surgeon and information was given by Dr. Krause Vaginal candidiasis. -Continue Diflucan Morbid obesity - Advised about diet and exercise DVT prophylaxis - Lovenox Disposition - Continue inpatient care, History Interval history: No new issues overnight. Hospitalist Physical - Constitutional Vitals: Temp Pulse Resp BP Pulse Ox 98.5 F 75 18 119/62 99 06/10/17 09:25 06/10/17 10:25 06/10/17 09:30 06/10/17 10:25 06/10/17 09:32 General appearance: Present: no acute distress, well-nourished - EENT Eyes: Present: PERRL, EOM intact ENT: hearing intact, clear oral mucosa, dentition normal - Neck Neck: Present: supple, normal ROM - Respiratory Respiratory effort: normal Respiratory: bilateral: diminished, wheezing - Cardiovascular Rhythm: regular Heart Sounds: Present: S1 & S2. Absent: gallop, rub - Extremities Extremities: no ischemia, No edema, Full ROM - Abdominal General gastrointestinal: soft, non-tender, non-distended, normal bowel sounds - Integumentary Integumentary: Present: clear, warm, dry - Neurologic Neurologic: CNII-XII intact, moves all extremities Results - Labs CBC & Chem 7: 06/09/17 06:50 06/09/17 06:50 Labs: Laboratory Last Values WBC 7.0 K/mm3 (4.5-11.0) 06/09/17 06:50 RBC 3.40 M/mm3 (3.65-5.03) L 06/09/17 06:50 Hgb 10.8 gm/dl (10.1-14.3) 06/09/17 06:50 Hct 32.8 % (30.3-42.9) 06/09/17 06:50 MCV 96 fl (79-97) 06/09/17 06:50 MCH 32 pg (28-32) 06/09/17 06:50 MCHC 33 % (30-34) 06/09/17 06:50 RDW 17.3 % (13.2-15.2) H 06/09/17 06:50 Plt Count 198 K/mm3 (140-440) 06/09/17 06:50 Lymph % (Auto) 22.2 % (13.4-35.0) 06/09/17 06:50 [place] % (Auto) 6.4 % (0.0-7.3) 06/09/17 06:50 Eos % (Auto) 0.0 % (0.0-4.3) 06/09/17 06:50 Baso % (Auto) 0.1 % (0.0-1.8) 06/09/17 06:50 Lymph # 1.5 K/mm3 (1.2-5.4) 06/09/17 06:50 [place] # 0.4 K/mm3 (0.0-0.8) 06/09/17 06:50 Eos # 0.0 K/mm3 (0.0-0.4) 06/09/17 06:50 Baso # 0.0 K/mm3 (0.0-0.1) 06/09/17 06:50 Seg Neutrophils % 71.3 % (40.0-70.0) H 06/09/17 06:50 Seg Neutrophils # 5.0 K/mm3 (1.8-7.7) 06/09/17 06:50 Sodium 141 mmol/L (137-145) 06/09/17 06:50 Potassium 4.9 mmol/L (3.6-5.0) 06/09/17 06:50 Chloride 103.2 mmol/L (98-107) 06/09/17 06:50 Carbon Dioxide 29 mmol/L (22-30) 06/09/17 06:50 Anion Gap 14 mmol/L 06/09/17 06:50 BUN 19 mg/dL (7-17) H 06/09/17 06:50 Creatinine 0.7 mg/dL (0.7-1.2) 06/09/17 06:50 Estimated GFR > 60 ml/min 06/09/17 06:50 BUN/Creatinine Ratio 27 % 06/09/17 06:50 Glucose 238 mg/dL (65-100) H 06/09/17 06:50 POC Glucose 47 (70-105) L 06/10/17 11:55 Calcium 8.5 mg/dL (8.4-10.2) 06/09/17 06:50 Total Creatine Kinase 43 units/L (30-135) 06/05/17 11:14 CK-MB (CK-2) 1.1 ng/mL (0.0-4.0) 06/05/17 11:14 CK-MB (CK-2) Rel Index 2.5 (0-4) 06/05/17 11:14 Troponin T < 0.010 ng/mL (0.00-0.029) 06/05/17 11:14 NT-Pro-B Natriuret Pep 62.07 pg/mL (0-900) 06/04/17 11:21 C.trachomatis DNA (SDA) Not detected (Not Detected) 06/05/17 14:00 N.gonorrhoeae DNA (SDA) Not detected (Not Detected) 06/05/17 14:00
[2017-06-10] MEDS: ZOFRAN IV PRN (16:00)
[2017-06-10] MEDS: LEVEMIR SUB-Q SCH (22:53)
[2017-06-11] MEDS: DILANTIN PO SCH ×2 (00:36→22:34)
[2017-06-11] MEDS: TESSALON PERLES PO SCH ×3 (05:43→22:33)
[2017-06-11 06:47] LABS: Anion Gap 14 mmol/L; BUN/Creatinine Ratio 20; Blood Urea Nitrogen 16 mg/dL (7-17); Calcium 8.1 mg/dL (8.4-10.2); Carbon Dioxide 29 mmol/L (22-30); Chloride 102.8 mmol/L (98-107); Glucose 117 mg/dL (65-100); Potassium 4.9 mmol/L (3.6-5.0); Sodium 141 mmol/L (137-145)
[2017-06-11] MEDS: PERCOCET 5/325 PO PRN ×3 (06:58→22:33)
[2017-06-11] MEDS: NOVOLOG SUB-Q SCH ×4 (07:30→22:42)
[2017-06-11 08:17] LABS: Basophils % (Auto) 0.5 % (0.0-1.8); Eosinophils % (Auto) 0.7 % (0.0-4.3); Hematocrit 33.8 % (30.3-42.9); Hemoglobin 10.9 gm/dl (10.1-14.3); Mean Corpuscular HGB Conc 32 % (30-34); Mean Corpuscular Hemoglobin 31 pg (28-32); Mean Corpuscular Volume 97 fl (79-97); Platelet Count 184 K/mm3 (140-440); Red Cell Distribution Width 17.4 % (13.2-15.2); White Blood Count 4.8 K/mm3 (4.5-11.0)
[2017-06-11] MEDS: DUONEB *Not for PRN Use IH SCH ×3 (09:12→19:31)
[2017-06-11] MEDS: BROVANA NEBU IH SCH ×2 (09:13→19:31)
[2017-06-11] MEDS: PULMICORT IH SCH ×2 (09:13→19:32)
[2017-06-11] MEDS: VIREAD PO SCH (10:03)
[2017-06-11] MEDS: ZITHROMAX PO SCH (10:03)
[2017-06-11] MEDS: LASIX PO SCH (10:04)
[2017-06-11] MEDS: LOVENOX SUB-Q SCH (10:04)
[2017-06-11] MEDS: ISENTRESS PO SCH ×2 (10:04→22:32)
[2017-06-11] MEDS: EMTRIVA PO SCH (10:04)
[2017-06-11] MEDS: NORVASC PO SCH (10:06)
--- NOTE | 2017-06-11 12:49 | Progress Note ---
Assessment and Plan Assessment and plan: COPD exacerbation -Improved but still with significant wheezing - on solumedrol and we will continue to taper, IV antibiotics, nebulizer, O2 support -Pulmonary consultation. DM2 with hyperglycemia - Continue home insulin plus sliding scale insulin HIV/AIDS - Continue medications - Continue Bactrim for prophylaxis Enterovaginal fistula - Patient was evaluated by CALKER and recommended outpatient evaluation by colorectal surgeon and information was given by Dr. Krause Vaginal candidiasis. -Continue Diflucan Morbid obesity - Advised about diet and exercise DVT prophylaxis - Lovenox Disposition - Continue inpatient care, History Interval history: No new issues overnight. Hospitalist Physical - Constitutional Vitals: Temp Pulse Resp BP Pulse Ox 98.7 F 77 20 118/69 100 06/11/17 08:00 06/11/17 10:06 06/11/17 08:00 06/11/17 10:06 06/11/17 08:00 General appearance: Present: no acute distress, well-nourished - EENT Eyes: Present: PERRL, EOM intact ENT: hearing intact, clear oral mucosa, dentition normal - Neck Neck: Present: supple, normal ROM - Respiratory Respiratory effort: normal Respiratory: bilateral: CTA - Cardiovascular Rhythm: regular Heart Sounds: Present: S1 & S2. Absent: gallop, rub - Extremities Extremities: no ischemia, No edema, Full ROM - Abdominal General gastrointestinal: soft, non-tender, non-distended, normal bowel sounds - Integumentary Integumentary: Present: clear, warm, dry - Neurologic Neurologic: CNII-XII intact, moves all extremities Results - Labs CBC & Chem 7: 06/11/17 07:59 06/11/17 06:11 Labs: Laboratory Last Values WBC 4.8 K/mm3 (4.5-11.0) 06/11/17 07:59 RBC 3.50 M/mm3 (3.65-5.03) L 06/11/17 07:59 Hgb 10.9 gm/dl (10.1-14.3) 06/11/17 07:59 Hct 33.8 % (30.3-42.9) 06/11/17 07:59 MCV 97 fl (79-97) 06/11/17 07:59 MCH 31 pg (28-32) 06/11/17 07:59 MCHC 32 % (30-34) 06/11/17 07:59 RDW 17.4 % (13.2-15.2) H 06/11/17 07:59 Plt Count 184 K/mm3 (140-440) 06/11/17 07:59 Lymph % (Auto) 54.7 % (13.4-35.0) H 06/11/17 07:59 [place] % (Auto) 8.3 % (0.0-7.3) H 06/11/17 07:59 Eos % (Auto) 0.7 % (0.0-4.3) 06/11/17 07:59 Baso % (Auto) 0.5 % (0.0-1.8) 06/11/17 07:59 Lymph # 2.6 K/mm3 (1.2-5.4) 06/11/17 07:59 [place] # 0.4 K/mm3 (0.0-0.8) 06/11/17 07:59 Eos # 0.0 K/mm3 (0.0-0.4) 06/11/17 07:59 Baso # 0.0 K/mm3 (0.0-0.1) 06/11/17 07:59 Seg Neutrophils % 35.8 % (40.0-70.0) L 06/11/17 07:59 Seg Neutrophils # 1.7 K/mm3 (1.8-7.7) L 06/11/17 07:59 Sodium 141 mmol/L (137-145) 06/11/17 06:11 Potassium 4.9 mmol/L (3.6-5.0) 06/11/17 06:11 Chloride 102.8 mmol/L (98-107) 06/11/17 06:11 Carbon Dioxide 29 mmol/L (22-30) 06/11/17 06:11 Anion Gap 14 mmol/L 06/11/17 06:11 BUN 16 mg/dL (7-17) 06/11/17 06:11 Creatinine 0.8 mg/dL (0.7-1.2) 06/11/17 06:11 Estimated GFR > 60 ml/min 06/11/17 06:11 BUN/Creatinine Ratio 20 % 06/11/17 06:11 Glucose 117 mg/dL (65-100) H 06/11/17 06:11 POC Glucose 172 (70-105) H 06/11/17 12:12 Calcium 8.1 mg/dL (8.4-10.2) L 06/11/17 06:11 Total Creatine Kinase 43 units/L (30-135) 06/05/17 11:14 CK-MB (CK-2) 1.1 ng/mL (0.0-4.0) 06/05/17 11:14 CK-MB (CK-2) Rel Index 2.5 (0-4) 06/05/17 11:14 Troponin T < 0.010 ng/mL (0.00-0.029) 06/05/17 11:14 NT-Pro-B Natriuret Pep 62.07 pg/mL (0-900) 06/04/17 11:21 C.trachomatis DNA (SDA) Not detected (Not Detected) 06/05/17 14:00 N.gonorrhoeae DNA (SDA) Not detected (Not Detected) 06/05/17 14:00
[2017-06-11] MEDS: AMBIEN PO PRN (22:33)
[2017-06-11] MEDS: LEVEMIR SUB-Q SCH (22:37)
[2017-06-12] MEDS: TESSALON PERLES PO SCH ×3 (06:10→23:42)
[2017-06-12] MEDS: PERCOCET 5/325 PO PRN ×2 (06:10→19:39)
[2017-06-12] MEDS: PULMICORT IH SCH ×2 (07:26→20:32)
[2017-06-12] MEDS: BROVANA NEBU IH SCH ×2 (07:26→20:32)
[2017-06-12] MEDS: DUONEB *Not for PRN Use IH SCH ×3 (07:29→20:32)
[2017-06-12] MEDS: NOVOLOG SUB-Q SCH ×4 (07:30→22:51)
[2017-06-12] MEDS: LOVENOX SUB-Q SCH (09:40)
[2017-06-12] MEDS: ZITHROMAX PO SCH (09:42)
[2017-06-12] MEDS: VIREAD PO SCH (09:42)
[2017-06-12] MEDS: ISENTRESS PO SCH ×2 (09:42→23:41)
[2017-06-12] MEDS: LASIX PO SCH (09:42)
[2017-06-12] MEDS: EMTRIVA PO SCH (09:42)
[2017-06-12] MEDS: NORVASC PO SCH (09:43)
--- NOTE | 2017-06-12 10:18 | Consultation ---
Past History Social history: single Medications and Allergies Allergies Allergy/AdvReac Type Severity Reaction Status Date / Time shellfish derived Allergy Severe Shortness Verified 06/04/17 11:05 of Breath ibuprofen [From Motrin] Allergy Mild Shortness Verified 06/04/17 11:05 of Breath tetracycline Allergy Shortness Verified 06/04/17 11:05 of Breath Home Medications Medication Instructions Recorded Confirmed Last Taken Type Miconazole 2% [Monistat 7 Vag 1 applicator VG QHS #1 tube 02/21/17 06/05/17 2 Days Ago Rx Cream] ALBUTEROL Inhaler [ProAir HFA 2 puff IH QID PRN #2 inhalation 03/13/17 06/05/17 2 Days Ago Rx Inhaler] Phenytoin (25 mg/ml) [Dilantin] 300 mg PO QHS #30 oral.liqd 03/23/17 06/05/17 2 Days Ago Rx Benzonatate [Tessalon Perles] 100 mg PO Q8HR #30 capsule 04/22/17 06/05/17 2 Days Ago Rx Budesonide [Pulmicort Respules] 0.25 mg IH Q12HRT #60 nebu 04/22/17 06/05/17 2 Days Ago Rx Emtricitabine/Tenofovir (Tdf) 2 each PO DAILY #60 tablet 04/22/17 06/05/17 2 Days Ago Rx [Truvada 100 mg-150 mg Tablet] Insulin Detemir [Levemir] 15 units SUB-Q QHS #1 vial 04/22/17 06/05/17 2 Days Ago Rx QUEtiapine [SEROquel] 200 mg PO QHS #30 tablet 04/22/17 06/05/17 2 Days Ago Rx Raltegravir Potassium [Isentress] 400 mg PO BID #60 tablet 04/22/17 06/05/17 2 Days Ago Rx Sulfamethoxazole/Trimethoprim 1 each PO Q12HR #14 tablet 04/22/17 06/05/17 2 Days Ago Rx [Bactrim DS TAB] Tiotropium [place] [Spiriva 4 gm IH DAILY #1 mist.inhal 04/22/17 06/05/17 2 Days Ago Rx Respimat] amLODIPine [Norvasc] 5 mg PO QDAY #30 tablet 04/22/17 06/05/17 2 Days Ago Rx Arformoterol Nebu [Brovana Nebu] 15 mcg IH Q12HRT ml 05/12/17 06/05/17 Unknown Rx Azithromycin [Zithromax] 250 mg PO DAILY #6 tablet 05/12/17 06/05/17 Unknown Rx Furosemide [Lasix TAB] 40 mg PO QDAY #30 tablet 05/12/17 06/05/17 Unknown Rx Prednisone [predniSONE 10 mg 10 mg PO .TAPER #1 tab.ds.pk 05/12/17 06/05/17 Unknown Rx (6-Day Pack, 21 Tabs)] Tenofovir [Viread] 300 mg PO QDAY tablet 05/12/17 06/05/17 Unknown Rx oxyCODONE /ACETAMINOPHEN [Percocet 2 tab PO Q6H PRN #10 tablet 05/12/17 Unknown Rx 5/325 mg] Active Meds: Active Medications Acetaminophen (Tylenol) 650 mg PO Q4H PRN PRN Reason: Pain MILD(1-3)/Fever >100.5/MOYER Albuterol/Ipratropium (Duoneb *Not For Prn Use*) 1 ampul IH TIDRT [facility] Last Admin: 06/12/17 07:29 Dose: Not Given Amlodipine Besylate (Norvasc) 5 mg PO QDAY [facility] Last Admin: 06/12/17 09:43 Dose: Not Given Arformoterol Tartrate (Brovana Nebu) 15 mcg IH Q12HRT [facility] Last Admin: 06/12/17 07:26 Dose: 15 mcg Azithromycin (Zithromax) 500 mg PO QDAY [facility] Last Admin: 06/12/17 09:42 Dose: 500 mg Benzonatate (Tessalon Perles) 100 mg PO Q8HR [facility] Last Admin: 06/12/17 06:10 Dose: 100 mg Bisacodyl (Dulcolax) 10 mg [place] QDAY PRN PRN Reason: Constipation unrelieved by MOM Budesonide (Pulmicort) 0.5 mg IH Q12HRT [facility] Last Admin: 06/12/17 07:26 Dose: 0.5 mg Dextrose (D50w (25gm) Syringe) 50 ml IV PRN PRN PRN Reason: Hypoglycemia Emtricitabine (Emtriva) 200 mg PO QDAY [facility] Last Admin: 06/12/17 09:42 Dose: 200 mg Enoxaparin Sodium (Lovenox) 40 mg SUB-Q QDAY@1000 [facility] Last Admin: 06/12/17 09:40 Dose: 40 mg Furosemide (Lasix) 40 mg PO QDAY [facility] Last Admin: 06/12/17 09:42 Dose: 40 mg Insulin Aspart (Novolog) 0 units SUB-Q ACHS [facility] PRN Reason: Protocol Last Admin: 06/12/17 07:30 Dose: Not Given Insulin Detemir (Levemir) 15 units SUB-Q QHS [facility] Last Admin: 06/11/17 22:37 Dose: 15 units Insulin Human Regular (Novolin R) 5 units SUB-Q [facility] Last Admin: 06/12/17 07:30 Dose: Not Given Magnesium Hydroxide (Milk Of Magnesia) 30 ml PO Q4H PRN PRN Reason: Constipation Methylprednisolone Sodium Succinate (Solu-Medrol) 40 mg IV Q12HR [facility] Last Admin: 06/11/17 22:43 Dose: Not Given Ondansetron HCl (Zofran) 4 mg IV Q8H PRN PRN Reason: N/V unrelieved by Aubree Last Admin: 06/10/17 16:00 Dose: 4 mg Oxycodone/Acetaminophen (Percocet 5/325) 2 tab PO Q6H PRN PRN Reason: Pain, Moderate (4-6) Last Admin: 06/12/17 06:10 Dose: 2 tab Phenytoin (Dilantin) 300 mg PO QHS [facility] Last Admin: 06/11/17 22:34 Dose: 300 mg Raltegravir (Isentress) 400 mg PO BID [facility] Last Admin: 06/12/17 09:42 Dose: 400 mg Tenofovir Disoproxil Fumarate (Viread) 300 mg PO QDAY [facility] Last Admin: 06/12/17 09:42 Dose: 300 mg Zolpidem Tartrate (Ambien) 5 mg PO QHS PRN PRN Reason: Sleep Last Admin: 06/11/17 22:33 Dose: 5 mg Physical Examination Vital signs: Vital Signs Temp Pulse Resp BP Pulse Ox 98.7 F 90 20 131/97 98 06/04/17 11:05 06/04/17 11:05 06/04/17 11:05 06/04/17 11:05 06/04/17 11:05 Results - Laboratory Findings CBC and BMP: 06/11/17 07:59 06/11/17 06:11 Abnormal lab findings: Abnormal Labs 06/05/17 06/05/17 06/05/17 05:43 06:32 08:11 RBC MCV RDW Lymph % (Auto) [place] % (Auto) Lymph # Seg Neutrophils % Seg Neutrophils # Sodium Potassium BUN Glucose POC Glucose 237 H 288 H Calcium Total Creatine Kinase 146 H 06/05/17 06/05/17 06/05/17 11:47 16:21 22:02 RBC MCV RDW Lymph % (Auto) [place] % (Auto) Lymph # Seg Neutrophils % Seg Neutrophils # Sodium Potassium BUN Glucose POC Glucose 207 H 183 H 266 H Calcium Total Creatine Kinase 06/06/17 06/06/17 06/06/17 04:15 04:15 07:35 RBC 3.59 L MCV RDW 18.1 H Lymph % (Auto) 8.2 L [place] % (Auto) Lymph # 0.7 L Seg Neutrophils % 89.0 H Seg Neutrophils # Sodium Potassium BUN Glucose 255 H POC Glucose 231 H Calcium Total Creatine Kinase 06/06/17 06/06/17 06/06/17 12:18 16:35 22:09 RBC MCV RDW Lymph % (Auto) [place] % (Auto) Lymph # Seg Neutrophils % Seg Neutrophils # Sodium Potassium BUN Glucose POC Glucose 223 H 227 H 291 H Calcium Total Creatine Kinase 06/07/17 06/07/17 06/07/17 07:13 08:49 08:49 RBC 3.56 L MCV 98 H RDW 18.0 H Lymph % (Auto) 8.6 L [place] % (Auto) Lymph # 0.7 L Seg Neutrophils % 89.0 H Seg Neutrophils # Sodium 136 L Potassium BUN Glucose 302 H POC Glucose 266 H Calcium Total Creatine Kinase 06/07/17 06/07/17 06/07/17 11:25 16:23 22:12 RBC MCV RDW Lymph % (Auto) [place] % (Auto) Lymph # Seg Neutrophils % Seg Neutrophils # Sodium Potassium BUN Glucose POC Glucose 229 H 325 H 266 H Calcium Total Creatine Kinase 06/08/17 06/08/17 06/08/17 04:09 04:09 07:12 RBC MCV RDW 18.1 H Lymph % (Auto) [place] % (Auto) 7.6 H Lymph # Seg Neutrophils % 70.3 H Seg Neutrophils # Sodium Potassium 5.6 H D BUN 20 H Glucose 209 H POC Glucose 188 H Calcium 8.2 L Total Creatine Kinase 06/08/17 06/08/17 06/08/17 11:16 16:29 22:10 RBC MCV RDW Lymph % (Auto) [place] % (Auto) Lymph # Seg Neutrophils % Seg Neutrophils # Sodium Potassium BUN Glucose POC Glucose 186 H 331 H 213 H Calcium Total Creatine Kinase 06/09/17 06/09/17 06/09/17 06:50 06:50 07:33 RBC 3.40 L MCV RDW 17.3 H Lymph % (Auto) [place] % (Auto) Lymph # Seg Neutrophils % 71.3 H Seg Neutrophils # Sodium Potassium BUN 19 H Glucose 238 H POC Glucose 202 H Calcium Total Creatine Kinase 06/09/17 06/09/17 06/09/17 11:33 12:33 16:37 RBC MCV RDW Lymph % (Auto) [place] % (Auto) Lymph # Seg Neutrophils % Seg Neutrophils # Sodium Potassium BUN Glucose POC Glucose 68 L 129 H 125 H Calcium Total Creatine Kinase 06/09/17 06/10/17 06/10/17 22:05 07:28 11:55 RBC MCV RDW Lymph % (Auto) [place] % (Auto) Lymph # Seg Neutrophils % Seg Neutrophils # Sodium Potassium BUN Glucose POC Glucose 337 H 250 H 47 L Calcium Total Creatine Kinase 06/10/17 06/10/17 06/11/17 16:01 21:52 06:11 RBC MCV RDW Lymph % (Auto) [place] % (Auto) Lymph # Seg Neutrophils % Seg Neutrophils # Sodium Potassium BUN Glucose 117 H POC Glucose 108 H 223 H Calcium 8.1 L Total Creatine Kinase 06/11/17 06/11/17 06/11/17 07:59 12:12 20:44 RBC 3.50 L MCV RDW 17.4 H Lymph % (Auto) 54.7 H [place] % (Auto) 8.3 H Lymph # Seg Neutrophils % 35.8 L Seg Neutrophils # 1.7 L Sodium Potassium BUN Glucose POC Glucose 172 H 192 H Calcium Total Creatine Kinase
[2017-06-12] MEDS: DELTASONE PO SCH (11:57)
[2017-06-12] MEDS: FLONASE NS SCH (12:04)
--- NOTE | 2017-06-12 13:26 | Progress Note ---
Assessment and Plan Assessment and plan: COPD exacerbation -Improved but still with significant wheezing - on solumedrol and we will continue to taper, IV antibiotics, nebulizer, O2 support -Pulmonary consultation. DM2 with hyperglycemia - Continue home insulin plus sliding scale insulin HIV/AIDS - Continue medications - Continue Bactrim for prophylaxis Enterovaginal fistula - Patient was evaluated by EVENT MARKETING INTERN and recommended outpatient evaluation by colorectal surgeon and information was given by Dr. Krause Vaginal candidiasis. -Continue Diflucan Morbid obesity - Advised about diet and exercise DVT prophylaxis - Lovenox Disposition - Continue inpatient care, History Interval history: No new issues overnight. Hospitalist Physical - Constitutional Vitals: Temp Pulse Resp BP Pulse Ox 98.4 F 94 H 20 108/52 95 06/12/17 08:00 06/12/17 09:43 06/12/17 10:00 06/12/17 09:43 06/12/17 10:39 General appearance: Present: no acute distress, well-nourished - EENT Eyes: Present: PERRL, EOM intact ENT: hearing intact, clear oral mucosa, dentition normal - Neck Neck: Present: supple, normal ROM - Respiratory Respiratory effort: normal Respiratory: bilateral: CTA - Cardiovascular Rhythm: regular Heart Sounds: Present: S1 & S2. Absent: gallop, rub - Extremities Extremities: no ischemia, No edema, Full ROM - Abdominal General gastrointestinal: soft, non-tender, non-distended, normal bowel sounds - Integumentary Integumentary: Present: clear, warm, dry - Neurologic Neurologic: CNII-XII intact, moves all extremities Results - Labs CBC & Chem 7: 06/11/17 07:59 06/11/17 06:11 Labs: Laboratory Last Values WBC 4.8 K/mm3 (4.5-11.0) 06/11/17 07:59 RBC 3.50 M/mm3 (3.65-5.03) L 06/11/17 07:59 Hgb 10.9 gm/dl (10.1-14.3) 06/11/17 07:59 Hct 33.8 % (30.3-42.9) 06/11/17 07:59 MCV 97 fl (79-97) 06/11/17 07:59 MCH 31 pg (28-32) 06/11/17 07:59 MCHC 32 % (30-34) 06/11/17 07:59 RDW 17.4 % (13.2-15.2) H 06/11/17 07:59 Plt Count 184 K/mm3 (140-440) 06/11/17 07:59 Lymph % (Auto) 54.7 % (13.4-35.0) H 06/11/17 07:59 [place] % (Auto) 8.3 % (0.0-7.3) H 06/11/17 07:59 Eos % (Auto) 0.7 % (0.0-4.3) 06/11/17 07:59 Baso % (Auto) 0.5 % (0.0-1.8) 06/11/17 07:59 Lymph # 2.6 K/mm3 (1.2-5.4) 06/11/17 07:59 [place] # 0.4 K/mm3 (0.0-0.8) 06/11/17 07:59 Eos # 0.0 K/mm3 (0.0-0.4) 06/11/17 07:59 Baso # 0.0 K/mm3 (0.0-0.1) 06/11/17 07:59 Seg Neutrophils % 35.8 % (40.0-70.0) L 06/11/17 07:59 Seg Neutrophils # 1.7 K/mm3 (1.8-7.7) L 06/11/17 07:59 Sodium 141 mmol/L (137-145) 06/11/17 06:11 Potassium 4.9 mmol/L (3.6-5.0) 06/11/17 06:11 Chloride 102.8 mmol/L (98-107) 06/11/17 06:11 Carbon Dioxide 29 mmol/L (22-30) 06/11/17 06:11 Anion Gap 14 mmol/L 06/11/17 06:11 BUN 16 mg/dL (7-17) 06/11/17 06:11 Creatinine 0.8 mg/dL (0.7-1.2) 06/11/17 06:11 Estimated GFR > 60 ml/min 06/11/17 06:11 BUN/Creatinine Ratio 20 % 06/11/17 06:11 Glucose 117 mg/dL (65-100) H 06/11/17 06:11 POC Glucose 84 (70-105) 06/12/17 11:10 Calcium 8.1 mg/dL (8.4-10.2) L 06/11/17 06:11 Total Creatine Kinase 43 units/L (30-135) 06/05/17 11:14 CK-MB (CK-2) 1.1 ng/mL (0.0-4.0) 06/05/17 11:14 CK-MB (CK-2) Rel Index 2.5 (0-4) 06/05/17 11:14 Troponin T < 0.010 ng/mL (0.00-0.029) 06/05/17 11:14 NT-Pro-B Natriuret Pep 62.07 pg/mL (0-900) 06/04/17 11:21 C.trachomatis DNA (SDA) Not detected (Not Detected) 06/05/17 14:00 N.gonorrhoeae DNA (SDA) Not detected (Not Detected) 06/05/17 14:00
[2017-06-12] MEDS: AMBIEN PO PRN (23:40)
[2017-06-12] MEDS: DILANTIN PO SCH (23:42)
[2017-06-12] MEDS: LEVEMIR SUB-Q SCH (23:44)
[2017-06-13] MEDS: TESSALON PERLES PO SCH ×3 (05:45→22:46)
[2017-06-13] MEDS: PERCOCET 5/325 PO PRN ×2 (05:45→22:46)
[2017-06-13] MEDS: NOVOLOG SUB-Q SCH ×4 (07:30→23:56)
[2017-06-13] MEDS: DUONEB *Not for PRN Use IH SCH ×3 (08:09→19:56)
[2017-06-13] MEDS: BROVANA NEBU IH SCH ×2 (08:09→19:56)
[2017-06-13] MEDS: PULMICORT IH SCH ×2 (08:09→19:56)
[2017-06-13] MEDS: EMTRIVA PO SCH (09:26)
[2017-06-13] MEDS: ISENTRESS PO SCH ×2 (09:26→22:46)
[2017-06-13] MEDS: DELTASONE PO SCH (09:27)
[2017-06-13] MEDS: LASIX PO SCH (09:27)
[2017-06-13] MEDS: NORVASC PO SCH (09:27)
[2017-06-13] MEDS: ZITHROMAX PO SCH (09:27)
[2017-06-13] MEDS: VIREAD PO SCH (09:27)
[2017-06-13] MEDS: FLONASE NS SCH (09:28)
[2017-06-13] MEDS: LOVENOX SUB-Q SCH (09:28)
--- NOTE | 2017-06-13 09:58 | XRay Report ---
AP CHEST: HISTORY: Shortness of breath AP view of the chest demonstrates a normal mediastinal and cardiac contour with clear lungs and normal bony and soft tissue structures. IMPRESSION: No acute cardiopulmonary process. No significant change since 06/04/17.
--- NOTE | 2017-06-13 11:19 | Progress Note ---
Assessment and Plan - Patient Problems (1) COPD exacerbation Current Visit: Yes Status: Acute (2) SOB (shortness of breath) Current Visit: Yes Status: Acute (3) Acute bronchitis Current Visit: No Status: Acute Qualifiers: Bronchitis organism: B Subjective Interval history: slightly better Objective Vital Signs - 12hr 06/13/17 06/13/17 06/13/17 04:00 08:00 08:10 Temperature 98.4 F 98.7 F Pulse Rate 77 91 H Pulse Rate [ 94 H Throughout] Respiratory 18 20 Rate Respiratory 20 Rate [ Throughout] Blood Pressure Blood Pressure 102/62 118/61 [Left] O2 Sat by Pulse 98 Oximetry 06/13/17 06/13/17 06/13/17 08:11 08:16 09:27 Temperature Pulse Rate 91 H Pulse Rate [ 95 H Throughout] Respiratory Rate Respiratory 20 Rate [ Throughout] Blood Pressure 118/61 Blood Pressure [Left] O2 Sat by Pulse 96 Oximetry Constitutional: no acute distress Eyes: non-icteric ENT: oropharynx moist Neck: supple Effort: normal Ascultation: Bilateral: wheezes Gastrointestinal: normoactive bowel sounds, soft, non-tender Extremities: no cyanosis, pink and warm CBC and BMP: 06/11/17 07:59 06/11/17 06:11 Abnormal lab findings: Abnormal Labs 06/05/17 06/05/17 06/05/17 05:43 06:32 08:11 RBC MCV RDW Lymph % (Auto) [place] % (Auto) Lymph # Seg Neutrophils % Seg Neutrophils # Sodium Potassium BUN Glucose POC Glucose 237 H 288 H Calcium Total Creatine Kinase 146 H 06/05/17 06/05/17 06/05/17 11:47 16:21 22:02 RBC MCV RDW Lymph % (Auto) [place] % (Auto) Lymph # Seg Neutrophils % Seg Neutrophils # Sodium Potassium BUN Glucose POC Glucose 207 H 183 H 266 H Calcium Total Creatine Kinase 06/06/17 06/06/17 06/06/17 04:15 04:15 07:35 RBC 3.59 L MCV RDW 18.1 H Lymph % (Auto) 8.2 L [place] % (Auto) Lymph # 0.7 L Seg Neutrophils % 89.0 H Seg Neutrophils # Sodium Potassium BUN Glucose 255 H POC Glucose 231 H Calcium Total Creatine Kinase 06/06/17 06/06/17 06/06/17 12:18 16:35 22:09 RBC MCV RDW Lymph % (Auto) [place] % (Auto) Lymph # Seg Neutrophils % Seg Neutrophils # Sodium Potassium BUN Glucose POC Glucose 223 H 227 H 291 H Calcium Total Creatine Kinase 06/07/17 06/07/17 06/07/17 07:13 08:49 08:49 RBC 3.56 L MCV 98 H RDW 18.0 H Lymph % (Auto) 8.6 L [place] % (Auto) Lymph # 0.7 L Seg Neutrophils % 89.0 H Seg Neutrophils # Sodium 136 L Potassium BUN Glucose 302 H POC Glucose 266 H Calcium Total Creatine Kinase 06/07/17 06/07/17 06/07/17 11:25 16:23 22:12 RBC MCV RDW Lymph % (Auto) [place] % (Auto) Lymph # Seg Neutrophils % Seg Neutrophils # Sodium Potassium BUN Glucose POC Glucose 229 H 325 H 266 H Calcium Total Creatine Kinase 06/08/17 06/08/17 06/08/17 04:09 04:09 07:12 RBC MCV RDW 18.1 H Lymph % (Auto) [place] % (Auto) 7.6 H Lymph # Seg Neutrophils % 70.3 H Seg Neutrophils # Sodium Potassium 5.6 H D BUN 20 H Glucose 209 H POC Glucose 188 H Calcium 8.2 L Total Creatine Kinase 06/08/17 06/08/17 06/08/17 11:16 16:29 22:10 RBC MCV RDW Lymph % (Auto) [place] % (Auto) Lymph # Seg Neutrophils % Seg Neutrophils # Sodium Potassium BUN Glucose POC Glucose 186 H 331 H 213 H Calcium Total Creatine Kinase 06/09/17 06/09/17 06/09/17 06:50 06:50 07:33 RBC 3.40 L MCV RDW 17.3 H Lymph % (Auto) [place] % (Auto) Lymph # Seg Neutrophils % 71.3 H Seg Neutrophils # Sodium Potassium BUN 19 H Glucose 238 H POC Glucose 202 H Calcium Total Creatine Kinase 06/09/17 06/09/17 06/09/17 11:33 12:33 16:37 RBC MCV RDW Lymph % (Auto) [place] % (Auto) Lymph # Seg Neutrophils % Seg Neutrophils # Sodium Potassium BUN Glucose POC Glucose 68 L 129 H 125 H Calcium Total Creatine Kinase 06/09/17 06/10/17 06/10/17 22:05 07:28 11:55 RBC MCV RDW Lymph % (Auto) [place] % (Auto) Lymph # Seg Neutrophils % Seg Neutrophils # Sodium Potassium BUN Glucose POC Glucose 337 H 250 H 47 L Calcium Total Creatine Kinase 06/10/17 06/10/17 06/11/17 16:01 21:52 06:11 RBC MCV RDW Lymph % (Auto) [place] % (Auto) Lymph # Seg Neutrophils % Seg Neutrophils # Sodium Potassium BUN Glucose 117 H POC Glucose 108 H 223 H Calcium 8.1 L Total Creatine Kinase 06/11/17 06/11/17 06/11/17 07:59 12:12 20:44 RBC 3.50 L MCV RDW 17.4 H Lymph % (Auto) 54.7 H [place] % (Auto) 8.3 H Lymph # Seg Neutrophils % 35.8 L Seg Neutrophils # 1.7 L Sodium Potassium BUN Glucose POC Glucose 172 H 192 H Calcium Total Creatine Kinase 06/12/17 06/13/17 16:38 07:23 RBC MCV RDW Lymph % (Auto) [place] % (Auto) Lymph # Seg Neutrophils % Seg Neutrophils # Sodium Potassium BUN Glucose POC Glucose 348 H 118 H Calcium Total Creatine Kinase Chest x-ray: report reviewed, image reviewed (neg)
--- NOTE | 2017-06-13 12:01 | Progress Note ---
Assessment and Plan Assessment and plan: COPD exacerbation -Improved but still with significant wheezing - on solumedrol and we will continue to taper, IV antibiotics, nebulizer, O2 support -Pulmonary consultation. DM2 with hyperglycemia - Continue home insulin plus sliding scale insulin HIV/AIDS - Continue medications - Continue Bactrim for prophylaxis Enterovaginal fistula - Patient was evaluated by CARTOGRAPHY SUPERVISOR and recommended outpatient evaluation by colorectal surgeon and information was given by Dr. Krause Vaginal candidiasis. -Continue Diflucan Morbid obesity - Advised about diet and exercise DVT prophylaxis - Lovenox Disposition - Continue inpatient care, History Interval history: No new issues overnight. Hospitalist Physical - Constitutional Vitals: Temp Pulse Resp BP Pulse Ox 98.7 F 91 H 20 118/61 96 06/13/17 08:00 06/13/17 09:27 06/13/17 08:16 06/13/17 09:27 06/13/17 08:11 General appearance: Present: no acute distress, well-nourished - Respiratory Respiratory: bilateral: diminished, rhonchi, wheezing Results - Labs CBC & Chem 7: 06/11/17 07:59 06/11/17 06:11 Labs: Laboratory Last Values WBC 4.8 K/mm3 (4.5-11.0) 06/11/17 07:59 RBC 3.50 M/mm3 (3.65-5.03) L 06/11/17 07:59 Hgb 10.9 gm/dl (10.1-14.3) 06/11/17 07:59 Hct 33.8 % (30.3-42.9) 06/11/17 07:59 MCV 97 fl (79-97) 06/11/17 07:59 MCH 31 pg (28-32) 06/11/17 07:59 MCHC 32 % (30-34) 06/11/17 07:59 RDW 17.4 % (13.2-15.2) H 06/11/17 07:59 Plt Count 184 K/mm3 (140-440) 06/11/17 07:59 Lymph % (Auto) 54.7 % (13.4-35.0) H 06/11/17 07:59 [place] % (Auto) 8.3 % (0.0-7.3) H 06/11/17 07:59 Eos % (Auto) 0.7 % (0.0-4.3) 06/11/17 07:59 Baso % (Auto) 0.5 % (0.0-1.8) 06/11/17 07:59 Lymph # 2.6 K/mm3 (1.2-5.4) 06/11/17 07:59 [place] # 0.4 K/mm3 (0.0-0.8) 06/11/17 07:59 Eos # 0.0 K/mm3 (0.0-0.4) 06/11/17 07:59 Baso # 0.0 K/mm3 (0.0-0.1) 06/11/17 07:59 Seg Neutrophils % 35.8 % (40.0-70.0) L 06/11/17 07:59 Seg Neutrophils # 1.7 K/mm3 (1.8-7.7) L 06/11/17 07:59 Sodium 141 mmol/L (137-145) 06/11/17 06:11 Potassium 4.9 mmol/L (3.6-5.0) 06/11/17 06:11 Chloride 102.8 mmol/L (98-107) 06/11/17 06:11 Carbon Dioxide 29 mmol/L (22-30) 06/11/17 06:11 Anion Gap 14 mmol/L 06/11/17 06:11 BUN 16 mg/dL (7-17) 06/11/17 06:11 Creatinine 0.8 mg/dL (0.7-1.2) 06/11/17 06:11 Estimated GFR > 60 ml/min 06/11/17 06:11 BUN/Creatinine Ratio 20 % 06/11/17 06:11 Glucose 117 mg/dL (65-100) H 06/11/17 06:11 POC Glucose 139 (70-105) H 06/13/17 11:30 Calcium 8.1 mg/dL (8.4-10.2) L 06/11/17 06:11 Total Creatine Kinase 43 units/L (30-135) 06/05/17 11:14 CK-MB (CK-2) 1.1 ng/mL (0.0-4.0) 06/05/17 11:14 CK-MB (CK-2) Rel Index 2.5 (0-4) 06/05/17 11:14 Troponin T < 0.010 ng/mL (0.00-0.029) 06/05/17 11:14 NT-Pro-B Natriuret Pep 62.07 pg/mL (0-900) 06/04/17 11:21 C.trachomatis DNA (SDA) Not detected (Not Detected) 06/05/17 14:00 N.gonorrhoeae DNA (SDA) Not detected (Not Detected) 06/05/17 14:00
[2017-06-13] MEDS: AMBIEN PO PRN (22:46)
[2017-06-13] MEDS: DILANTIN PO SCH (22:47)
[2017-06-13] MEDS: LEVEMIR SUB-Q SCH (22:47)
[2017-06-14] MEDS: PERCOCET 5/325 PO PRN (05:37)
[2017-06-14] MEDS: TESSALON PERLES PO SCH ×2 (05:37→13:14)
[2017-06-14] MEDS: NOVOLOG SUB-Q SCH ×3 (07:40→17:23)
[2017-06-14] MEDS: DUONEB *Not for PRN Use IH SCH ×3 (09:09→13:54)
[2017-06-14] MEDS: PULMICORT IH SCH (09:09)
[2017-06-14] MEDS: BROVANA NEBU IH SCH (09:09)
[2017-06-14] MEDS: DELTASONE PO SCH (09:58)
[2017-06-14] MEDS: FLONASE NS SCH (09:58)
[2017-06-14] MEDS: VIREAD PO SCH (09:59)
[2017-06-14] MEDS: ISENTRESS PO SCH ×2 (09:59→22:20)
[2017-06-14] MEDS: ZITHROMAX PO SCH (09:59)
[2017-06-14] MEDS: LASIX PO SCH (09:59)
[2017-06-14] MEDS: LOVENOX SUB-Q SCH (09:59)
[2017-06-14] MEDS: NORVASC PO SCH (10:01)
--- NOTE | 2017-06-14 10:34 | Progress Note ---
Assessment and Plan Assessment and plan: COPD exacerbation -Improved but still with significant wheezing - on solumedrol and we will continue to taper, IV antibiotics, nebulizer, O2 support -Pulmonary consultation. DM2 with hyperglycemia - Continue home insulin plus sliding scale insulin HIV/AIDS - Continue medications - Continue Bactrim for prophylaxis Enterovaginal fistula - Patient was evaluated by BIN WORKER and recommended outpatient evaluation by colorectal surgeon and information was given by Dr. Krause Vaginal candidiasis. -Continue Diflucan Morbid obesity - Advised about diet and exercise DVT prophylaxis - Lovenox Disposition - Continue inpatient care, anticipate discharge in a.m. if okay with pulmonary. History Interval history: No new issues overnight. Hospitalist Physical - Constitutional Vitals: Temp Pulse Resp BP Pulse Ox 98.6 F 85 20 102/69 100 06/14/17 08:52 06/14/17 10:01 06/14/17 08:52 06/14/17 10:01 06/14/17 08:52 General appearance: Present: no acute distress, well-nourished - EENT Eyes: Present: PERRL, EOM intact ENT: hearing intact, clear oral mucosa, dentition normal - Neck Neck: Present: supple, normal ROM - Respiratory Respiratory effort: normal Respiratory: bilateral: diminished, wheezing - Cardiovascular Rhythm: regular Heart Sounds: Present: S1 & S2. Absent: gallop, rub - Extremities Extremities: no ischemia, No edema, Full ROM - Abdominal General gastrointestinal: soft, non-tender, non-distended, normal bowel sounds - Integumentary Integumentary: Present: clear, warm, dry - Neurologic Neurologic: CNII-XII intact, moves all extremities Results - Labs CBC & Chem 7: 06/11/17 07:59 06/11/17 06:11 Labs: Laboratory Last Values WBC 4.8 K/mm3 (4.5-11.0) 06/11/17 07:59 RBC 3.50 M/mm3 (3.65-5.03) L 06/11/17 07:59 Hgb 10.9 gm/dl (10.1-14.3) 06/11/17 07:59 Hct 33.8 % (30.3-42.9) 06/11/17 07:59 MCV 97 fl (79-97) 06/11/17 07:59 MCH 31 pg (28-32) 06/11/17 07:59 MCHC 32 % (30-34) 06/11/17 07:59 RDW 17.4 % (13.2-15.2) H 06/11/17 07:59 Plt Count 184 K/mm3 (140-440) 06/11/17 07:59 Lymph % (Auto) 54.7 % (13.4-35.0) H 06/11/17 07:59 [place] % (Auto) 8.3 % (0.0-7.3) H 06/11/17 07:59 Eos % (Auto) 0.7 % (0.0-4.3) 06/11/17 07:59 Baso % (Auto) 0.5 % (0.0-1.8) 06/11/17 07:59 Lymph # 2.6 K/mm3 (1.2-5.4) 06/11/17 07:59 [place] # 0.4 K/mm3 (0.0-0.8) 06/11/17 07:59 Eos # 0.0 K/mm3 (0.0-0.4) 06/11/17 07:59 Baso # 0.0 K/mm3 (0.0-0.1) 06/11/17 07:59 Seg Neutrophils % 35.8 % (40.0-70.0) L 06/11/17 07:59 Seg Neutrophils # 1.7 K/mm3 (1.8-7.7) L 06/11/17 07:59 Sodium 141 mmol/L (137-145) 06/11/17 06:11 Potassium 4.9 mmol/L (3.6-5.0) 06/11/17 06:11 Chloride 102.8 mmol/L (98-107) 06/11/17 06:11 Carbon Dioxide 29 mmol/L (22-30) 06/11/17 06:11 Anion Gap 14 mmol/L 06/11/17 06:11 BUN 16 mg/dL (7-17) 06/11/17 06:11 Creatinine 0.8 mg/dL (0.7-1.2) 06/11/17 06:11 Estimated GFR > 60 ml/min 06/11/17 06:11 BUN/Creatinine Ratio 20 % 06/11/17 06:11 Glucose 117 mg/dL (65-100) H 06/11/17 06:11 POC Glucose 182 (70-105) H 06/14/17 09:00 Calcium 8.1 mg/dL (8.4-10.2) L 06/11/17 06:11 Total Creatine Kinase 43 units/L (30-135) 06/05/17 11:14 CK-MB (CK-2) 1.1 ng/mL (0.0-4.0) 06/05/17 11:14 CK-MB (CK-2) Rel Index 2.5 (0-4) 06/05/17 11:14 Troponin T < 0.010 ng/mL (0.00-0.029) 06/05/17 11:14 NT-Pro-B Natriuret Pep 62.07 pg/mL (0-900) 06/04/17 11:21 C.trachomatis DNA (SDA) Not detected (Not Detected) 06/05/17 14:00 N.gonorrhoeae DNA (SDA) Not detected (Not Detected) 06/05/17 14:00
[2017-06-14] MEDS: EMTRIVA PO SCH (10:40)
[2017-06-14] MEDS: LEVEMIR SUB-Q SCH (22:10)
[2017-06-15] MEDS: AMBIEN PO PRN ×2 (00:23→23:35)
[2017-06-15] MEDS: DILANTIN PO SCH ×2 (00:24→23:36)
[2017-06-15] MEDS: NOVOLOG SUB-Q SCH ×4 (07:30→23:32)
[2017-06-15 09:16] LABS: Hematocrit 32.5 % (30.3-42.9); Mean Corpuscular HGB Conc 34 % (30-34); Mean Corpuscular Hemoglobin 33 pg (28-32); Mean Corpuscular Volume 96 fl (79-97); Platelet Count 173 K/mm3 (140-440); Red Blood Count 3.37 M/mm3 (3.65-5.03); Red Cell Distribution Width 17.9 % (13.2-15.2); White Blood Count 4.4 K/mm3 (4.5-11.0)
[2017-06-15 09:35] LABS: Anion Gap 12 mmol/L; BUN/Creatinine Ratio 21; Blood Urea Nitrogen 15 mg/dL (7-17); Calcium 8.3 mg/dL (8.4-10.2); Carbon Dioxide 32 mmol/L (22-30); Chloride 102.3 mmol/L (98-107); Glucose 154 mg/dL (65-100); Potassium 4.5 mmol/L (3.6-5.0); Sodium 142 mmol/L (137-145)
[2017-06-15] MEDS: ISENTRESS PO SCH ×2 (09:37→23:35)
[2017-06-15] MEDS: ZITHROMAX PO SCH (09:37)
[2017-06-15] MEDS: EMTRIVA PO SCH (09:37)
[2017-06-15] MEDS: DELTASONE PO SCH (09:38)
[2017-06-15] MEDS: VIREAD PO SCH (09:38)
[2017-06-15] MEDS: LASIX PO SCH (09:39)
[2017-06-15] MEDS: LOVENOX SUB-Q SCH (09:39)
[2017-06-15] MEDS: FLONASE NS SCH (09:42)
[2017-06-15] MEDS: NORVASC PO SCH (10:00)
[2017-06-15 10:13] LABS: Anisocytosis 1+; Basophils % (Manual) 0 % (0.0-1.8); Blastocytes % (Manual) 0 %; Elliptocytes Few; Poikilocytosis 1+; Tear Drop Cells Few
[2017-06-15 10:14] LABS: Diff Status Complete; Platelet Estimate Cons
--- NOTE | 2017-06-15 11:04 | Progress Note ---
Assessment and Plan Assessment and plan: COPD exacerbation -Improved but still with significant wheezing - on solumedrol and we will continue to taper, IV antibiotics, nebulizer, O2 support -Pulmonary consultation. DM2 with hyperglycemia - Continue home insulin plus sliding scale insulin HIV/AIDS - Continue medications - Continue Bactrim for prophylaxis Enterovaginal fistula - Patient was evaluated by ADVERTISING STATISTICAL CLERK and recommended outpatient evaluation by colorectal surgeon and information was given by Dr. Krause Vaginal candidiasis. -Continue Diflucan Morbid obesity - Advised about diet and exercise DVT prophylaxis - Lovenox Disposition - Continue inpatient care, anticipate discharge in a.m. if okay with pulmonary. History Interval history: No new issues overnight. Hospitalist Physical - Constitutional Vitals: Temp Pulse Resp BP Pulse Ox 97.9 F 67 20 101/70 100 06/15/17 07:30 06/15/17 07:30 06/15/17 07:30 06/15/17 07:30 06/15/17 07:30 General appearance: Present: no acute distress, well-nourished - EENT Eyes: Present: PERRL, EOM intact ENT: hearing intact, clear oral mucosa, dentition normal - Neck Neck: Present: supple, normal ROM - Respiratory Respiratory effort: normal Respiratory: bilateral: diminished, rhonchi, wheezing - Cardiovascular Rhythm: regular Heart Sounds: Present: S1 & S2. Absent: gallop, rub - Extremities Extremities: no ischemia, No edema, Full ROM - Abdominal General gastrointestinal: soft, non-tender, non-distended, normal bowel sounds - Integumentary Integumentary: Present: clear, warm, dry - Neurologic Neurologic: CNII-XII intact, moves all extremities Results - Labs CBC & Chem 7: 06/15/17 09:07 06/15/17 04:00 Labs: Laboratory Last Values WBC 4.4 K/mm3 (4.5-11.0) L 06/15/17 09:07 RBC 3.37 M/mm3 (3.65-5.03) L 06/15/17 09:07 Hgb 11.0 gm/dl (10.1-14.3) 06/15/17 09:07 Hct 32.5 % (30.3-42.9) 06/15/17 09:07 MCV 96 fl (79-97) 06/15/17 09:07 MCH 33 pg (28-32) H 06/15/17 09:07 MCHC 34 % (30-34) 06/15/17 09:07 RDW 17.9 % (13.2-15.2) H 06/15/17 09:07 Plt Count 173 K/mm3 (140-440) 06/15/17 09:07 Lymph % (Auto) 54.7 % (13.4-35.0) H 06/11/17 07:59 [place] % (Auto) 8.3 % (0.0-7.3) H 06/11/17 07:59 Eos % (Auto) 0.7 % (0.0-4.3) 06/11/17 07:59 Baso % (Auto) 0.5 % (0.0-1.8) 06/11/17 07:59 Lymph # 2.6 K/mm3 (1.2-5.4) 06/11/17 07:59 [place] # 0.4 K/mm3 (0.0-0.8) 06/11/17 07:59 Eos # 0.0 K/mm3 (0.0-0.4) 06/11/17 07:59 Baso # 0.0 K/mm3 (0.0-0.1) 06/11/17 07:59 Add Manual Diff Complete 06/15/17 09:07 Total Counted 100 06/15/17 09:07 Seg Neutrophils % Condominium Manager 06/15/17 09:07 Seg Neuts % (Manual) 53.0 % (40.0-70.0) 06/15/17 09:07 Band Neutrophils % 0 % 06/15/17 09:07 Lymphocytes % (Manual) 38.0 % (13.4-35.0) H 06/15/17 09:07 Reactive Lymphs % (Man) 3.0 % 06/15/17 09:07 Monocytes % (Manual) 4.0 % (0.0-7.3) 06/15/17 09:07 Eosinophils % (Manual) 2.0 % (0.0-4.3) 06/15/17 09:07 Basophils % (Manual) 0 % (0.0-1.8) 06/15/17 09:07 Metamyelocytes % 0 % 06/15/17 09:07 Myelocytes % 0 % 06/15/17 09:07 Promyelocytes % 0 % 06/15/17 09:07 Blast Cells % 0 % 06/15/17 09:07 Nucleated RBC % 1.0 % (0.0-0.9) H 06/15/17 09:07 Seg Neutrophils # 1.7 K/mm3 (1.8-7.7) L 06/11/17 07:59 Seg Neutrophils # Man 2.3 K/mm3 (1.8-7.7) 06/15/17 09:07 Band Neutrophils # 0.0 K/mm3 06/15/17 09:07 Lymphocytes # (Manual) 1.7 K/mm3 (1.2-5.4) 06/15/17 09:07 Abs React Lymphs (Man) 0.1 K/mm3 06/15/17 09:07 Monocytes # (Manual) 0.2 K/mm3 (0.0-0.8) 06/15/17 09:07 Eosinophils # (Manual) 0.1 K/mm3 (0.0-0.4) 06/15/17 09:07 Basophils # (Manual) 0.0 K/mm3 (0.0-0.1) 06/15/17 09:07 Metamyelocytes # 0.0 K/mm3 06/15/17 09:07 Myelocytes # 0.0 K/mm3 06/15/17 09:07 Promyelocytes # 0.0 K/mm3 06/15/17 09:07 Blast Cells # 0.0 K/mm3 06/15/17 09:07 WBC Morphology Not Reportable 06/15/17 09:07 Hypersegmented Neuts Not Reportable 06/15/17 09:07 Hyposegmented Neuts Not Reportable 06/15/17 09:07 Hypogranular Neuts Not Reportable 06/15/17 09:07 Smudge Cells Not Reportable 06/15/17 09:07 Toxic Granulation Not Reportable 06/15/17 09:07 Toxic Vacuolation Not Reportable 06/15/17 09:07 Dohle Bodies Not Reportable 06/15/17 09:07 Pelger-Huet Anomaly Not Reportable 06/15/17 09:07 Susan Rods Not Reportable 06/15/17 09:07 Platelet Estimate Cons 06/15/17 09:07 Clumped Platelets Not Reportable 06/15/17 09:07 Plt Clumps, EDTA Not Reportable 06/15/17 09:07 Large Platelets Not Reportable 06/15/17 09:07 Giant Platelets Not Reportable 06/15/17 09:07 Platelet Satelliting Not Reportable 06/15/17 09:07 Plt Morphology Comment Not Reportable 06/15/17 09:07 RBC Morphology Not Reportable 06/15/17 09:07 Dimorphic RBCs Not Reportable 06/15/17 09:07 Polychromasia Not Reportable 06/15/17 09:07 Hypochromasia Not Reportable 06/15/17 09:07 Poikilocytosis 1+ 06/15/17 09:07 Anisocytosis 1+ 06/15/17 09:07 Microcytosis Not Reportable 06/15/17 09:07 Macrocytosis Not Reportable 06/15/17 09:07 Spherocytes Not Reportable 06/15/17 09:07 Pappenheimer Bodies Not Reportable 06/15/17 09:07 Sickle Cells Not Reportable 06/15/17 09:07 Target Cells Not Reportable 06/15/17 09:07 Tear Drop Cells Few 06/15/17 09:07 Ovalocytes Not Reportable 06/15/17 09:07 Helmet Cells Not Reportable 06/15/17 09:07 [place] Bodies Not Reportable 06/15/17 09:07 [place] Rings Not Reportable 06/15/17 09:07 [place] Cells Not Reportable 06/15/17 09:07 Bite Cells Not Reportable 06/15/17 09:07 Crenated Cell Not Reportable 06/15/17 09:07 Elliptocytes Few 06/15/17 09:07 Acanthocytes (Spur) Not Reportable 06/15/17 09:07 Rouleaux Not Reportable 06/15/17 09:07 Hemoglobin C Crystals Not Reportable 06/15/17 09:07 Schistocytes Not Reportable 06/15/17 09:07 Malaria parasites Not Reportable 06/15/17 09:07 Barry Bodies Not Reportable 06/15/17 09:07 Hem Pathologist Commnt No 06/15/17 09:07 Sodium 142 mmol/L (137-145) 06/15/17 04:00 Potassium 4.5 mmol/L (3.6-5.0) 06/15/17 04:00 Chloride 102.3 mmol/L (98-107) 06/15/17 04:00 Carbon Dioxide 32 mmol/L (22-30) H 06/15/17 04:00 Anion Gap 12 mmol/L 06/15/17 04:00 BUN 15 mg/dL (7-17) 06/15/17 04:00 Creatinine 0.7 mg/dL (0.7-1.2) 06/15/17 04:00 Estimated GFR > 60 ml/min 06/15/17 04:00 BUN/Creatinine Ratio 21 % 06/15/17 04:00 Glucose 154 mg/dL (65-100) H 06/15/17 04:00 POC Glucose 121 (70-105) H 06/15/17 08:07 Calcium 8.3 mg/dL (8.4-10.2) L 06/15/17 04:00 Total Creatine Kinase 43 units/L (30-135) 06/05/17 11:14 CK-MB (CK-2) 1.1 ng/mL (0.0-4.0) 06/05/17 11:14 CK-MB (CK-2) Rel Index 2.5 (0-4) 06/05/17 11:14 Troponin T < 0.010 ng/mL (0.00-0.029) 06/05/17 11:14 NT-Pro-B Natriuret Pep 62.07 pg/mL (0-900) 06/04/17 11:21 C.trachomatis DNA (SDA) Not detected (Not Detected) 06/05/17 14:00 N.gonorrhoeae DNA (SDA) Not detected (Not Detected) 06/05/17 14:00
[2017-06-15] MEDS: PULMICORT IH SCH ×3 (13:37→21:49)
[2017-06-15] MEDS: DUONEB *Not for PRN Use IH SCH ×3 (13:37→22:05)
[2017-06-15] MEDS: BROVANA NEBU IH SCH ×3 (13:37→21:49)
[2017-06-15] MEDS: PERCOCET 5/325 PO PRN (17:32)
[2017-06-15] MEDS: TESSALON PERLES PO SCH ×2 (19:05→23:34)
[2017-06-16] MEDS: TESSALON PERLES PO SCH ×4 (06:07→23:34)
[2017-06-16] MEDS: PERCOCET 5/325 PO PRN ×2 (06:07→23:27)
[2017-06-16] MEDS: BROVANA NEBU IH SCH ×2 (08:51→20:05)
[2017-06-16] MEDS: PULMICORT IH SCH ×2 (08:51→20:05)
[2017-06-16] MEDS: DUONEB *Not for PRN Use IH SCH ×3 (08:52→20:10)
[2017-06-16] MEDS: NOVOLOG SUB-Q SCH ×4 (09:32→23:33)
[2017-06-16] MEDS: NORVASC PO SCH (10:54)
[2017-06-16] MEDS: EMTRIVA PO SCH (10:54)
[2017-06-16] MEDS: DELTASONE PO SCH (10:54)
[2017-06-16] MEDS: LASIX PO SCH (10:54)
[2017-06-16] MEDS: VIREAD PO SCH (10:55)
[2017-06-16] MEDS: ZITHROMAX PO SCH (10:55)
[2017-06-16] MEDS: ISENTRESS PO SCH ×2 (10:55→23:29)
[2017-06-16] MEDS: LOVENOX SUB-Q SCH (11:00)
--- NOTE | 2017-06-16 11:11 | Progress Note ---
Assessment and Plan 61 y/o female with acute exacerbation of COPD. 1. Continue BID pulmicort and brovana 2. Continue steroids 60 daily 3. Continue diuresis as tolerated, I/O are not accurate 4. Unsure of what patient's baseline is, but if she feels better and wants to go home, have no objection to this. Subjective Date of service: 06/16/17 Interval history: On room air, stable, but still wheezing. Per patient feels a lot better than on admission. Objective Vital Signs - 12hr 06/16/17 06/16/17 06/16/17 04:41 08:00 08:53 Temperature 97.5 F L 98.1 F Pulse Rate 68 76 Pulse Rate [ 94 H Throughout] Respiratory 20 20 Rate Respiratory 16 Rate [ Throughout] Blood Pressure Blood Pressure 155/88 106/59 [Right] O2 Sat by Pulse 100 100 100 Oximetry 06/16/17 06/16/17 09:08 10:54 Temperature Pulse Rate 76 Pulse Rate [ 96 H Throughout] Respiratory Rate Respiratory 16 Rate [ Throughout] Blood Pressure 106/59 Blood Pressure [Right] O2 Sat by Pulse Oximetry Constitutional: no acute distress Eyes: non-icteric ENT: oropharynx moist Neck: supple Effort: normal Ascultation: Bilateral: wheezes Gastrointestinal: normoactive bowel sounds, soft, non-tender Extremities: no cyanosis, pink and warm CBC and BMP: 06/15/17 09:07 06/15/17 04:00 Abnormal lab findings: Abnormal Labs 06/05/17 06/05/17 06/05/17 05:43 06:32 08:11 WBC RBC MCV MCH RDW Lymph % (Auto) Price % (Auto) Lymph # Seg Neutrophils % Lymphocytes % (Manual) Nucleated RBC % Seg Neutrophils # Sodium Potassium Carbon Dioxide BUN Glucose POC Glucose 237 H 288 H Calcium Total Creatine Kinase 146 H 06/05/17 06/05/17 06/05/17 11:47 16:21 22:02 WBC RBC MCV MCH RDW Lymph % (Auto) Price % (Auto) Lymph # Seg Neutrophils % Lymphocytes % (Manual) Nucleated RBC % Seg Neutrophils # Sodium Potassium Carbon Dioxide BUN Glucose POC Glucose 207 H 183 H 266 H Calcium Total Creatine Kinase 06/06/17 06/06/17 06/06/17 04:15 04:15 07:35 WBC RBC 3.59 L MCV MCH RDW 18.1 H Lymph % (Auto) 8.2 L Price % (Auto) Lymph # 0.7 L Seg Neutrophils % 89.0 H Lymphocytes % (Manual) Nucleated RBC % Seg Neutrophils # Sodium Potassium Carbon Dioxide BUN Glucose 255 H POC Glucose 231 H Calcium Total Creatine Kinase 06/06/17 06/06/17 06/06/17 12:18 16:35 22:09 WBC RBC MCV MCH RDW Lymph % (Auto) Price % (Auto) Lymph # Seg Neutrophils % Lymphocytes % (Manual) Nucleated RBC % Seg Neutrophils # Sodium Potassium Carbon Dioxide BUN Glucose POC Glucose 223 H 227 H 291 H Calcium Total Creatine Kinase 06/07/17 06/07/17 06/07/17 07:13 08:49 08:49 WBC RBC 3.56 L MCV 98 H MCH RDW 18.0 H Lymph % (Auto) 8.6 L [place] % (Auto) Lymph # 0.7 L Seg Neutrophils % 89.0 H Lymphocytes % (Manual) Nucleated RBC % Seg Neutrophils # Sodium 136 L Potassium Carbon Dioxide BUN Glucose 302 H POC Glucose 266 H Calcium Total Creatine Kinase 06/07/17 06/07/17 06/07/17 11:25 16:23 22:12 WBC RBC MCV MCH RDW Lymph % (Auto) [place] % (Auto) Lymph # Seg Neutrophils % Lymphocytes % (Manual) Nucleated RBC % Seg Neutrophils # Sodium Potassium Carbon Dioxide BUN Glucose POC Glucose 229 H 325 H 266 H Calcium Total Creatine Kinase 06/08/17 06/08/17 06/08/17 04:09 04:09 07:12 WBC RBC MCV MCH RDW 18.1 H Lymph % (Auto) Price % (Auto) 7.6 H Lymph # Seg Neutrophils % 70.3 H Lymphocytes % (Manual) Nucleated RBC % Seg Neutrophils # Sodium Potassium 5.6 H D Carbon Dioxide BUN 20 H Glucose 209 H POC Glucose 188 H Calcium 8.2 L Total Creatine Kinase 06/08/17 06/08/17 06/08/17 11:16 16:29 22:10 WBC RBC MCV MCH RDW Lymph % (Auto) Price % (Auto) Lymph # Seg Neutrophils % Lymphocytes % (Manual) Nucleated RBC % Seg Neutrophils # Sodium Potassium Carbon Dioxide BUN Glucose POC Glucose 186 H 331 H 213 H Calcium Total Creatine Kinase 06/09/17 06/09/17 06/09/17 06:50 06:50 07:33 WBC RBC 3.40 L MCV MCH RDW 17.3 H Lymph % (Auto) Price % (Auto) Lymph # Seg Neutrophils % 71.3 H Lymphocytes % (Manual) Nucleated RBC % Seg Neutrophils # Sodium Potassium Carbon Dioxide BUN 19 H Glucose 238 H POC Glucose 202 H Calcium Total Creatine Kinase 06/09/17 06/09/17 06/09/17 11:33 12:33 16:37 WBC RBC MCV MCH RDW Lymph % (Auto) Price % (Auto) Lymph # Seg Neutrophils % Lymphocytes % (Manual) Nucleated RBC % Seg Neutrophils # Sodium Potassium Carbon Dioxide BUN Glucose POC Glucose 68 L 129 H 125 H Calcium Total Creatine Kinase 06/09/17 06/10/17 06/10/17 22:05 07:28 11:55 WBC RBC MCV MCH RDW Lymph % (Auto) Price % (Auto) Lymph # Seg Neutrophils % Lymphocytes % (Manual) Nucleated RBC % Seg Neutrophils # Sodium Potassium Carbon Dioxide BUN Glucose POC Glucose 337 H 250 H 47 L Calcium Total Creatine Kinase 06/10/17 06/10/17 06/11/17 16:01 21:52 06:11 WBC RBC MCV MCH RDW Lymph % (Auto) Price % (Auto) Lymph # Seg Neutrophils % Lymphocytes % (Manual) Nucleated RBC % Seg Neutrophils # Sodium Potassium Carbon Dioxide BUN Glucose 117 H POC Glucose 108 H 223 H Calcium 8.1 L Total Creatine Kinase 06/11/17 06/11/17 06/11/17 07:59 12:12 20:44 WBC RBC 3.50 L MCV MCH RDW 17.4 H Lymph % (Auto) 54.7 H Price % (Auto) 8.3 H Lymph # Seg Neutrophils % 35.8 L Lymphocytes % (Manual) Nucleated RBC % Seg Neutrophils # 1.7 L Sodium Potassium Carbon Dioxide BUN Glucose POC Glucose 172 H 192 H Calcium Total Creatine Kinase 06/12/17 06/13/17 06/13/17 16:38 07:23 11:30 WBC RBC MCV MCH RDW Lymph % (Auto) Price % (Auto) Lymph # Seg Neutrophils % Lymphocytes % (Manual) Nucleated RBC % Seg Neutrophils # Sodium Potassium Carbon Dioxide BUN Glucose POC Glucose 348 H 118 H 139 H Calcium Total Creatine Kinase 06/13/17 06/13/17 06/14/17 16:29 23:13 07:47 WBC RBC MCV MCH RDW Lymph % (Auto) Price % (Auto) Lymph # Seg Neutrophils % Lymphocytes % (Manual) Nucleated RBC % Seg Neutrophils # Sodium Potassium Carbon Dioxide BUN Glucose POC Glucose 225 H 170 H 69 L Calcium Total Creatine Kinase 06/14/17 06/14/17 06/14/17 09:00 11:57 16:37 WBC RBC MCV MCH RDW Lymph % (Auto) Price % (Auto) Lymph # Seg Neutrophils % Lymphocytes % (Manual) Nucleated RBC % Seg Neutrophils # Sodium Potassium Carbon Dioxide BUN Glucose POC Glucose 182 H 122 H 305 H Calcium Total Creatine Kinase 06/14/17 06/15/17 06/15/17 22:39 04:00 08:07 WBC RBC MCV MCH RDW Lymph % (Auto) Price % (Auto) Lymph # Seg Neutrophils % Lymphocytes % (Manual) Nucleated RBC % Seg Neutrophils # Sodium Potassium Carbon Dioxide 32 H BUN Glucose 154 H POC Glucose 52 L 121 H Calcium 8.3 L Total Creatine Kinase 06/15/17 06/15/17 06/15/17 09:07 12:01 16:58 WBC 4.4 L RBC 3.37 L MCV MCH 33 H RDW 17.9 H Lymph % (Auto) Price % (Auto) Lymph # Seg Neutrophils % Lymphocytes % (Manual) 38.0 H Nucleated RBC % 1.0 H Seg Neutrophils # Sodium Potassium Carbon Dioxide BUN Glucose POC Glucose 227 H 205 H Calcium Total Creatine Kinase 06/15/17 06/15/17 06/16/17 21:15 22:31 07:40 WBC RBC MCV MCH RDW Lymph % (Auto) Price % (Auto) Lymph # Seg Neutrophils % Lymphocytes % (Manual) Nucleated RBC % Seg Neutrophils # Sodium Potassium Carbon Dioxide BUN Glucose POC Glucose 42 L 165 H 201 H Calcium Total Creatine Kinase
[2017-06-16 12:07] LABS: Anion Gap 13 mmol/L; BUN/Creatinine Ratio 16; Blood Urea Nitrogen 13 mg/dL (7-17); Carbon Dioxide 28 mmol/L (22-30); Glucose 70 mg/dL (65-100); Potassium 3.5 mmol/L (3.6-5.0); Sodium 139 mmol/L (137-145)
[2017-06-16 12:08] LABS: Basophils % (Auto) 0.8 % (0.0-1.8); Eosinophils % (Auto) 0.8 % (0.0-4.3); Hematocrit 32.4 % (30.3-42.9); Mean Corpuscular HGB Conc 34 % (30-34); Mean Corpuscular Hemoglobin 33 pg (28-32); Mean Corpuscular Volume 96 fl (79-97); Platelet Count 172 K/mm3 (140-440); Red Blood Count 3.38 M/mm3 (3.65-5.03); White Blood Count 4.1 K/mm3 (4.5-11.0)
--- NOTE | 2017-06-16 18:47 | Progress Note ---
Assessment and Plan Assessment and plan: COPD exacerbation -Improved but still with significant wheezing - on solumedrol and we will continue to taper, IV antibiotics, nebulizer, O2 support -Pulmonary consultation. DM2 with hyperglycemia - Continue home insulin plus sliding scale insulin HIV/AIDS - Continue medications - Continue Bactrim for prophylaxis Enterovaginal fistula - Patient was evaluated by NETWORK STRATEGIST and recommended outpatient evaluation by colorectal surgeon and information was given by Dr. Krause Vaginal candidiasis. -Continue Diflucan Morbid obesity - Advised about diet and exercise DVT prophylaxis - Lovenox Disposition - Continue inpatient care, still on O2, trying to wean off. if able to wean off then d/c am History Interval history: Pt seen and examined. Still on O2. I have asked the nurse to wean off if able Hospitalist Physical - Constitutional Vitals: Temp Pulse Resp BP Pulse Ox 97.8 F 78 18 108/64 100 06/16/17 14:01 06/16/17 14:01 06/16/17 14:01 06/16/17 14:01 06/16/17 14:01 General appearance: Present: no acute distress, well-nourished - EENT Eyes: Present: PERRL ENT: hearing intact - Neck Neck: Present: supple - Respiratory Respiratory effort: normal Respiratory: bilateral: wheezing - Cardiovascular Rhythm: regular Heart Sounds: Present: S1 & S2 Results - Labs CBC & Chem 7: 06/16/17 11:34 06/16/17 11:34 Labs: Laboratory Last Values WBC 4.1 K/mm3 (4.5-11.0) L 06/16/17 11:34 RBC 3.38 M/mm3 (3.65-5.03) L 06/16/17 11:34 Hgb 11.0 gm/dl (10.1-14.3) 06/16/17 11:34 Hct 32.4 % (30.3-42.9) 06/16/17 11:34 MCV 96 fl (79-97) 06/16/17 11:34 MCH 33 pg (28-32) H 06/16/17 11:34 MCHC 34 % (30-34) 06/16/17 11:34 RDW 18.0 % (13.2-15.2) H 06/16/17 11:34 Plt Count 172 K/mm3 (140-440) 06/16/17 11:34 Lymph % (Auto) 52.4 % (13.4-35.0) H 06/16/17 11:34 [place] % (Auto) 10.0 % (0.0-7.3) H 06/16/17 11:34 Eos % (Auto) 0.8 % (0.0-4.3) 06/16/17 11:34 Baso % (Auto) 0.8 % (0.0-1.8) 06/16/17 11:34 Lymph # 2.1 K/mm3 (1.2-5.4) 06/16/17 11:34 [place] # 0.4 K/mm3 (0.0-0.8) 06/16/17 11:34 Eos # 0.0 K/mm3 (0.0-0.4) 06/16/17 11:34 Baso # 0.0 K/mm3 (0.0-0.1) 06/16/17 11:34 Add Manual Diff Complete 06/15/17 09:07 Total Counted 100 06/15/17 09:07 Seg Neutrophils % 36.0 % (40.0-70.0) L 06/16/17 11:34 Seg Neuts % (Manual) 53.0 % (40.0-70.0) 06/15/17 09:07 Band Neutrophils % 0 % 06/15/17 09:07 Lymphocytes % (Manual) 38.0 % (13.4-35.0) H 06/15/17 09:07 Reactive Lymphs % (Man) 3.0 % 06/15/17 09:07 Monocytes % (Manual) 4.0 % (0.0-7.3) 06/15/17 09:07 Eosinophils % (Manual) 2.0 % (0.0-4.3) 06/15/17 09:07 Basophils % (Manual) 0 % (0.0-1.8) 06/15/17 09:07 Metamyelocytes % 0 % 06/15/17 09:07 Myelocytes % 0 % 06/15/17 09:07 Promyelocytes % 0 % 06/15/17 09:07 Blast Cells % 0 % 06/15/17 09:07 Nucleated RBC % 1.0 % (0.0-0.9) H 06/15/17 09:07 Seg Neutrophils # 1.5 K/mm3 (1.8-7.7) L 06/16/17 11:34 Seg Neutrophils # Man 2.3 K/mm3 (1.8-7.7) 06/15/17 09:07 Band Neutrophils # 0.0 K/mm3 06/15/17 09:07 Lymphocytes # (Manual) 1.7 K/mm3 (1.2-5.4) 06/15/17 09:07 Abs React Lymphs (Man) 0.1 K/mm3 06/15/17 09:07 Monocytes # (Manual) 0.2 K/mm3 (0.0-0.8) 06/15/17 09:07 Eosinophils # (Manual) 0.1 K/mm3 (0.0-0.4) 06/15/17 09:07 Basophils # (Manual) 0.0 K/mm3 (0.0-0.1) 06/15/17 09:07 Metamyelocytes # 0.0 K/mm3 06/15/17 09:07 Myelocytes # 0.0 K/mm3 06/15/17 09:07 Promyelocytes # 0.0 K/mm3 06/15/17 09:07 Blast Cells # 0.0 K/mm3 06/15/17 09:07 WBC Morphology Not Reportable 06/15/17 09:07 Hypersegmented Neuts Not Reportable 06/15/17 09:07 Hyposegmented Neuts Not Reportable 06/15/17 09:07 Hypogranular Neuts Not Reportable 06/15/17 09:07 Smudge Cells Not Reportable 06/15/17 09:07 Toxic Granulation Not Reportable 06/15/17 09:07 Toxic Vacuolation Not Reportable 06/15/17 09:07 Dohle Bodies Not Reportable 06/15/17 09:07 Pelger-Huet Anomaly Not Reportable 06/15/17 09:07 Susan Rods Not Reportable 06/15/17 09:07 Platelet Estimate Cons 06/15/17 09:07 Clumped Platelets Not Reportable 06/15/17 09:07 Plt Clumps, EDTA Not Reportable 06/15/17 09:07 Large Platelets Not Reportable 06/15/17 09:07 Giant Platelets Not Reportable 06/15/17 09:07 Platelet Satelliting Not Reportable 06/15/17 09:07 Plt Morphology Comment Not Reportable 06/15/17 09:07 RBC Morphology Not Reportable 06/15/17 09:07 Dimorphic RBCs Not Reportable 06/15/17 09:07 Polychromasia Not Reportable 06/15/17 09:07 Hypochromasia Not Reportable 06/15/17 09:07 Poikilocytosis 1+ 06/15/17 09:07 Anisocytosis 1+ 06/15/17 09:07 Microcytosis Not Reportable 06/15/17 09:07 Macrocytosis Not Reportable 06/15/17 09:07 Spherocytes Not Reportable 06/15/17 09:07 Pappenheimer Bodies Not Reportable 06/15/17 09:07 Sickle Cells Not Reportable 06/15/17 09:07 Target Cells Not Reportable 06/15/17 09:07 Tear Drop Cells Few 06/15/17 09:07 Ovalocytes Not Reportable 06/15/17 09:07 Helmet Cells Not Reportable 06/15/17 09:07 [place] Bodies Not Reportable 06/15/17 09:07 [place] Rings Not Reportable 06/15/17 09:07 [place] Cells Not Reportable 06/15/17 09:07 Bite Cells Not Reportable 06/15/17 09:07 Crenated Cell Not Reportable 06/15/17 09:07 Elliptocytes Few 06/15/17 09:07 Acanthocytes (Spur) Not Reportable 06/15/17 09:07 Rouleaux Not Reportable 06/15/17 09:07 Hemoglobin C Crystals Not Reportable 06/15/17 09:07 Schistocytes Not Reportable 06/15/17 09:07 Malaria parasites Not Reportable 06/15/17 09:07 Barry Bodies Not Reportable 06/15/17 09:07 Hem Pathologist Commnt No 06/15/17 09:07 Sodium 139 mmol/L (137-145) 06/16/17 11:34 Potassium 3.5 mmol/L (3.6-5.0) L D 06/16/17 11:34 Chloride 102.0 mmol/L (98-107) 06/16/17 11:34 Carbon Dioxide 28 mmol/L (22-30) 06/16/17 11:34 Anion Gap 13 mmol/L 06/16/17 11:34 BUN 13 mg/dL (7-17) 06/16/17 11:34 Creatinine 0.8 mg/dL (0.7-1.2) 06/16/17 11:34 Estimated GFR > 60 ml/min 06/16/17 11:34 BUN/Creatinine Ratio 16 % 06/16/17 11:34 Glucose 70 mg/dL (65-100) 06/16/17 11:34 POC Glucose 326 (70-105) H 06/16/17 16:35 Calcium 8.0 mg/dL (8.4-10.2) L 06/16/17 11:34 Total Creatine Kinase 43 units/L (30-135) 06/05/17 11:14 CK-MB (CK-2) 1.1 ng/mL (0.0-4.0) 06/05/17 11:14 CK-MB (CK-2) Rel Index 2.5 (0-4) 06/05/17 11:14 Troponin T < 0.010 ng/mL (0.00-0.029) 06/05/17 11:14 NT-Pro-B Natriuret Pep 62.07 pg/mL (0-900) 06/04/17 11:21 C.trachomatis DNA (SDA) Not detected (Not Detected) 06/05/17 14:00 N.gonorrhoeae DNA (SDA) Not detected (Not Detected) 06/05/17 14:00
[2017-06-16] MEDS: AMBIEN PO PRN (23:30)
[2017-06-16] MEDS: DILANTIN PO SCH (23:31)
[2017-06-16] MEDS: LEVEMIR SUB-Q SCH (23:34)
[2017-06-17 05:00] LABS: Anion Gap 16 mmol/L; BUN/Creatinine Ratio 21; Blood Urea Nitrogen 15 mg/dL (7-17); Calcium 8.2 mg/dL (8.4-10.2); Carbon Dioxide 27 mmol/L (22-30); Glucose 130 mg/dL (65-100); Sodium 141 mmol/L (137-145)
[2017-06-17 05:01] LABS: Basophils % (Auto) 0.8 % (0.0-1.8); Eosinophils % (Auto) 0.7 % (0.0-4.3); Hemoglobin 10.5 gm/dl (10.1-14.3); Mean Corpuscular HGB Conc 34 % (30-34); Mean Corpuscular Hemoglobin 33 pg (28-32); Mean Corpuscular Volume 97 fl (79-97); Platelet Count 172 K/mm3 (140-440); Red Cell Distribution Width 17.8 % (13.2-15.2); White Blood Count 4.9 K/mm3 (4.5-11.0)
[2017-06-17 05:07] LABS: Potassium 4.6 mmol/L (3.6-5.0)
[2017-06-17] MEDS: NOVOLOG SUB-Q SCH ×4 (08:37→23:20)
[2017-06-17] MEDS: VIREAD PO SCH (09:04)
[2017-06-17] MEDS: DELTASONE PO SCH (09:04)
[2017-06-17] MEDS: EMTRIVA PO SCH (09:04)
[2017-06-17] MEDS: ISENTRESS PO SCH ×2 (09:04→23:29)
[2017-06-17] MEDS: LASIX PO SCH (09:04)
[2017-06-17] MEDS: FLONASE NS SCH ×2 (09:05→20:52)
[2017-06-17] MEDS: TESSALON PERLES PO SCH ×4 (09:05→23:34)
[2017-06-17] MEDS: LOVENOX SUB-Q SCH (09:06)
[2017-06-17] MEDS: NORVASC PO SCH (09:07)
[2017-06-17] MEDS: BROVANA NEBU IH SCH ×2 (09:58→20:00)
[2017-06-17] MEDS: PULMICORT IH SCH ×2 (09:58→20:00)
[2017-06-17] MEDS: DUONEB *Not for PRN Use IH SCH ×3 (09:58→20:00)
--- NOTE | 2017-06-17 11:22 | Progress Note ---
Assessment and Plan 61 y/o female with acute exacerbation of COPD. 1. Continue BID pulmicort and brovana 2. Continue steroids 60 daily 3. Continue diuresis as tolerated, I/O are not accurate 4. Unsure of what patient's baseline is, but if she feels better and wants to go home, have no objection to this. Suggest discharge on Prednisone taper as follows: 60x2, 40x3, 20x3, 10x3 then stop. Resume home COPD regimen of spiriva and pulmicort and brovana BID nebs. Subjective Date of service: 06/17/17 Interval history: No acute events. Requesting pain meds. States that breathing is better today. No family at bedside. Objective Vital Signs - 12hr 06/17/17 06/17/17 06/17/17 00:20 08:49 09:07 Temperature 97.9 F 98.6 F Pulse Rate 84 84 84 Pulse Rate [ Throughout] Respiratory 20 18 Rate Respiratory Rate [ Throughout] Blood Pressure 98/67 Blood Pressure 90/50 98/67 [Right] O2 Sat by Pulse 100 99 Oximetry 06/17/17 06/17/17 09:45 09:59 Temperature Pulse Rate Pulse Rate [ 99 H 99 H Throughout] Respiratory Rate Respiratory 18 18 Rate [ Throughout] Blood Pressure Blood Pressure [Right] O2 Sat by Pulse 97 Oximetry Constitutional: no acute distress Eyes: non-icteric ENT: oropharynx moist Neck: supple Effort: normal Ascultation: Bilateral: wheezes Gastrointestinal: normoactive bowel sounds, soft, non-tender Extremities: no cyanosis, pink and warm CBC and BMP: 06/17/17 04:14 06/17/17 04:14 Abnormal lab findings: Abnormal Labs 06/05/17 06/05/17 06/05/17 05:43 06:32 08:11 WBC RBC MCV MCH RDW Lymph % (Auto) [facility] % (Auto) Lymph # Seg Neutrophils % Lymphocytes % (Manual) Nucleated RBC % Seg Neutrophils # Sodium Potassium Carbon Dioxide BUN Glucose POC Glucose 237 H 288 H Calcium Total Creatine Kinase 146 H 06/05/17 06/05/17 06/05/17 11:47 16:21 22:02 WBC RBC MCV MCH RDW Lymph % (Auto) [facility] % (Auto) Lymph # Seg Neutrophils % Lymphocytes % (Manual) Nucleated RBC % Seg Neutrophils # Sodium Potassium Carbon Dioxide BUN Glucose POC Glucose 207 H 183 H 266 H Calcium Total Creatine Kinase 06/06/17 06/06/17 06/06/17 04:15 04:15 07:35 WBC RBC 3.59 L MCV MCH RDW 18.1 H Lymph % (Auto) 8.[address] [facility] % (Auto) Lymph # 0.7 L Seg Neutrophils % 89.0 H Lymphocytes % (Manual) Nucleated RBC % Seg Neutrophils # Sodium Potassium Carbon Dioxide BUN Glucose 255 H POC Glucose 231 H Calcium Total Creatine Kinase 06/06/17 06/06/17 06/06/17 12:18 16:35 22:09 WBC RBC MCV MCH RDW Lymph % (Auto) [facility] % (Auto) Lymph # Seg Neutrophils % Lymphocytes % (Manual) Nucleated RBC % Seg Neutrophils # Sodium Potassium Carbon Dioxide BUN Glucose POC Glucose 223 H 227 H 291 H Calcium Total Creatine Kinase 06/07/17 06/07/17 06/07/17 07:13 08:49 08:49 WBC RBC 3.56 L MCV 98 H MCH RDW 18.0 H Lymph % (Auto) 8.[address] [facility] % (Auto) Lymph # 0.7 L Seg Neutrophils % 89.0 H Lymphocytes % (Manual) Nucleated RBC % Seg Neutrophils # Sodium 136 L Potassium Carbon Dioxide BUN Glucose 302 H POC Glucose 266 H Calcium Total Creatine Kinase 06/07/17 06/07/17 06/07/17 11:25 16:23 22:12 WBC RBC MCV MCH RDW Lymph % (Auto) [facility] % (Auto) Lymph # Seg Neutrophils % Lymphocytes % (Manual) Nucleated RBC % Seg Neutrophils # Sodium Potassium Carbon Dioxide BUN Glucose POC Glucose 229 H 325 H 266 H Calcium Total Creatine Kinase 06/08/17 06/08/17 06/08/17 04:09 04:09 07:12 WBC RBC MCV MCH RDW 18.1 H Lymph % (Auto) [facility] % (Auto) 7.6 H Lymph # Seg Neutrophils % 70.3 H Lymphocytes % (Manual) Nucleated RBC % Seg Neutrophils # Sodium Potassium 5.6 H D Carbon Dioxide BUN 20 H Glucose 209 H POC Glucose 188 H Calcium 8.2 L Total Creatine Kinase 06/08/17 06/08/17 06/08/17 11:16 16:29 22:10 WBC RBC MCV MCH RDW Lymph % (Auto) [facility] % (Auto) Lymph # Seg Neutrophils % Lymphocytes % (Manual) Nucleated RBC % Seg Neutrophils # Sodium Potassium Carbon Dioxide BUN Glucose POC Glucose 186 H 331 H 213 H Calcium Total Creatine Kinase 06/09/17 06/09/17 06/09/17 06:50 06:50 07:33 WBC RBC 3.40 L MCV MCH RDW 17.3 H Lymph % (Auto) [facility] % (Auto) Lymph # Seg Neutrophils % 71.3 H Lymphocytes % (Manual) Nucleated RBC % Seg Neutrophils # Sodium Potassium Carbon Dioxide BUN 19 H Glucose 238 H POC Glucose 202 H Calcium Total Creatine Kinase 06/09/17 06/09/17 06/09/17 11:33 12:33 16:37 WBC RBC MCV MCH RDW Lymph % (Auto) [facility] % (Auto) Lymph # Seg Neutrophils % Lymphocytes % (Manual) Nucleated RBC % Seg Neutrophils # Sodium Potassium Carbon Dioxide BUN Glucose POC Glucose 68 L 129 H 125 H Calcium Total Creatine Kinase 06/09/17 06/10/17 06/10/17 22:05 07:28 11:55 WBC RBC MCV MCH RDW Lymph % (Auto) [facility] % (Auto) Lymph # Seg Neutrophils % Lymphocytes % (Manual) Nucleated RBC % Seg Neutrophils # Sodium Potassium Carbon Dioxide BUN Glucose POC Glucose 337 H 250 H 47 L Calcium Total Creatine Kinase 06/10/17 06/10/17 06/11/17 16:01 21:52 06:11 WBC RBC MCV MCH RDW Lymph % (Auto) [facility] % (Auto) Lymph # Seg Neutrophils % Lymphocytes % (Manual) Nucleated RBC % Seg Neutrophils # Sodium Potassium Carbon Dioxide BUN Glucose 117 H POC Glucose 108 H 223 H Calcium 8.1 L Total Creatine Kinase 06/11/17 06/11/17 06/11/17 07:59 12:12 20:44 WBC RBC 3.50 L MCV MCH RDW 17.4 H Lymph % (Auto) 54.[address] [facility] % (Auto) 8.3 H Lymph # Seg Neutrophils % 35.8 L Lymphocytes % (Manual) Nucleated RBC % Seg Neutrophils # 1.7 L Sodium Potassium Carbon Dioxide BUN Glucose POC Glucose 172 H 192 H Calcium Total Creatine Kinase 06/12/17 06/13/17 06/13/17 16:38 07:23 11:30 WBC RBC MCV MCH RDW Lymph % (Auto) [facility] % (Auto) Lymph # Seg Neutrophils % Lymphocytes % (Manual) Nucleated RBC % Seg Neutrophils # Sodium Potassium Carbon Dioxide BUN Glucose POC Glucose 348 H 118 H 139 H Calcium Total Creatine Kinase 06/13/17 06/13/17 06/14/17 16:29 23:13 07:47 WBC RBC MCV MCH RDW Lymph % (Auto) [facility] % (Auto) Lymph # Seg Neutrophils % Lymphocytes % (Manual) Nucleated RBC % Seg Neutrophils # Sodium Potassium Carbon Dioxide BUN Glucose POC Glucose 225 H 170 H 69 L Calcium Total Creatine Kinase 06/14/17 06/14/17 06/14/17 09:00 11:57 16:37 WBC RBC MCV MCH RDW Lymph % (Auto) [facility] % (Auto) Lymph # Seg Neutrophils % Lymphocytes % (Manual) Nucleated RBC % Seg Neutrophils # Sodium Potassium Carbon Dioxide BUN Glucose POC Glucose 182 H 122 H 305 H Calcium Total Creatine Kinase 06/14/17 06/15/17 06/15/17 22:39 04:00 08:07 WBC RBC MCV MCH RDW Lymph % (Auto) [facility] % (Auto) Lymph # Seg Neutrophils % Lymphocytes % (Manual) Nucleated RBC % Seg Neutrophils # Sodium Potassium Carbon Dioxide 32 H BUN Glucose 154 H POC Glucose 52 L 121 H Calcium 8.3 L Total Creatine Kinase 06/15/17 06/15/17 06/15/17 09:07 12:01 16:58 WBC 4.4 L RBC 3.37 L MCV MCH 33 H RDW 17.9 H Lymph % (Auto) [facility] % (Auto) Lymph # Seg Neutrophils % Lymphocytes % (Manual) 38.0 H Nucleated RBC % 1.0 H Seg Neutrophils # Sodium Potassium Carbon Dioxide BUN Glucose POC Glucose 227 H 205 H Calcium Total Creatine Kinase 06/15/17 06/15/17 06/16/17 21:15 22:31 07:40 WBC RBC MCV MCH RDW Lymph % (Auto) [facility] % (Auto) Lymph # Seg Neutrophils % Lymphocytes % (Manual) Nucleated RBC % Seg Neutrophils # Sodium Potassium Carbon Dioxide BUN Glucose POC Glucose 42 L 165 H 201 H Calcium Total Creatine Kinase 06/16/17 06/16/17 06/16/17 11:34 11:34 16:35 WBC 4.1 L RBC 3.38 L MCV MCH 33 H RDW 18.0 H Lymph % (Auto) 52.[address] [facility] % (Auto) 10.0 H Lymph # Seg Neutrophils % 36.0 L Lymphocytes % (Manual) Nucleated RBC % Seg Neutrophils # 1.5 L Sodium Potassium 3.5 L D Carbon Dioxide BUN Glucose POC Glucose 326 H Calcium 8.0 L Total Creatine Kinase 06/16/17 06/17/17 06/17/17 23:00 04:14 04:14 WBC RBC 3.20 L MCV MCH 33 H RDW 17.8 H Lymph % (Auto) 45.[address] [facility] % (Auto) 8.5 H Lymph # Seg Neutrophils % Lymphocytes % (Manual) Nucleated RBC % Seg Neutrophils # Sodium Potassium Carbon Dioxide BUN Glucose 130 H POC Glucose 115 H Calcium 8.2 L Total Creatine Kinase 06/17/17 07:19 WBC RBC MCV MCH RDW Lymph % (Auto) [facility] % (Auto) Lymph # Seg Neutrophils % Lymphocytes % (Manual) Nucleated RBC % Seg Neutrophils # Sodium Potassium Carbon Dioxide BUN Glucose POC Glucose 110 H Calcium Total Creatine Kinase
[2017-06-17] MEDS: PERCOCET 5/325 PO PRN ×2 (12:28→23:29)
--- NOTE | 2017-06-17 15:46 | Progress Note ---
Assessment and Plan COPD exacerbation -Improved but still with significant wheezing - on solumedrol and we will continue to taper, IV antibiotics, nebulizer, O2 support -Pulmonary consultation. DM2 with hyperglycemia - Continue home insulin plus sliding scale insulin HIV/AIDS - Continue medications - Continue Bactrim for prophylaxis Enterovaginal fistula - Patient was evaluated by [employer] and recommended outpatient evaluation by colorectal surgeon and information was given by Dr. Krause Vaginal candidiasis. -Continue Diflucan Morbid obesity - Advised about diet and exercise DVT prophylaxis - Lovenox Disposition - Continue inpatient care, still on O2, trying to wean off. if able to wean off then d/c am Subjective Date of service: 06/17/17 Principal diagnosis: Copd exacerbation Interval history: Doing better Objective - Constitutional Vitals: Vital Signs - 12hr 06/17/17 06/17/17 06/17/17 08:49 09:07 09:45 Temperature 98.6 F Pulse Rate 84 84 Pulse Rate [ 99 H Throughout] Respiratory 18 Rate Respiratory 18 Rate [ Throughout] Blood Pressure 98/67 Blood Pressure 98/67 [Right] O2 Sat by Pulse 99 Oximetry 06/17/17 06/17/17 06/17/17 09:59 12:28 14:00 Temperature 98.7 F Pulse Rate 87 Pulse Rate [ 99 H Throughout] Respiratory 20 20 Rate Respiratory 18 Rate [ Throughout] Blood Pressure Blood Pressure 109/64 [Right] O2 Sat by Pulse 97 100 Oximetry 06/17/17 06/17/17 15:05 15:16 Temperature Pulse Rate Pulse Rate [ 98 H 99 H Throughout] Respiratory Rate Respiratory 18 18 Rate [ Throughout] Blood Pressure Blood Pressure [Right] O2 Sat by Pulse Oximetry General appearance: Present: no acute distress, well-nourished - EENT Eyes: PERRL, EOM intact ENT: hearing intact, clear oral mucosa Ears: bilateral: normal - Neck Neck: supple, normal ROM - Respiratory Respiratory effort: normal Respiratory: bilateral: CTA - Breasts Breasts: normal - Cardiovascular Rhythm: regular Heart Sounds: Present: S1 & S2. Absent: gallop, rub Extremities: pulses intact, No edema, normal color, Full ROM - Gastrointestinal General gastrointestinal: Present: soft, non-tender, non-distended, normal bowel sounds - Genitourinary Female genitourinary: normal - Integumentary Integumentary: clear, warm, dry - Musculoskeletal Musculoskeletal: 1, strength equal bilaterally - Neurologic Neurologic: moves all extremities - Psychiatric Psychiatric: memory intact, appropriate mood/affect, intact judgment & insight - Labs CBC & Chem 7: 06/18/17 04:23 06/18/17 04:23 Labs: Abnormal lab results 06/16/17 06/16/17 06/17/17 Range/Units 16:35 23:00 04:14 RBC 3.20 L (3.65-5.03) M/mm3 MCH 33 H (28-32) pg RDW 17.8 H (13.2-15.2) % Lymph % (Auto) 45.0 H (13.4-35.0) % [place] % (Auto) 8.5 H (0.0-7.3) % Glucose (65-100) mg/dL POC Glucose 326 H 115 H (70-105) Calcium (8.4-10.2) mg/dL 06/17/17 06/17/17 06/17/17 Range/Units 04:14 07:19 11:51 RBC (3.65-5.03) M/mm3 MCH (28-32) pg RDW (13.2-15.2) % Lymph % (Auto) (13.4-35.0) % [place] % (Auto) (0.0-7.3) % Glucose 130 H (65-100) mg/dL POC Glucose 110 H 167 H (70-105) Calcium 8.2 L (8.4-10.2) mg/dL
[2017-06-17] MEDS: DILANTIN PO SCH (23:29)
[2017-06-17] MEDS: AMBIEN PO PRN (23:29)
[2017-06-17] MEDS: LEVEMIR SUB-Q SCH (23:30)
[2017-06-18 04:46] LABS: Basophils % (Auto) 0.8 % (0.0-1.8); Eosinophils % (Auto) 0.7 % (0.0-4.3); Hematocrit 32.5 % (30.3-42.9); Hemoglobin 10.9 gm/dl (10.1-14.3); Mean Corpuscular HGB Conc 34 % (30-34); Mean Corpuscular Hemoglobin 32 pg (28-32); Mean Corpuscular Volume 97 fl (79-97); Platelet Count 180 K/mm3 (140-440); Red Blood Count 3.37 M/mm3 (3.65-5.03); Red Cell Distribution Width 17.9 % (13.2-15.2); White Blood Count 5.2 K/mm3 (4.5-11.0)
[2017-06-18 05:04] LABS: Anion Gap 16 mmol/L; BUN/Creatinine Ratio 18; Blood Urea Nitrogen 14 mg/dL (7-17); Calcium 8.5 mg/dL (8.4-10.2); Carbon Dioxide 25 mmol/L (22-30); Chloride 104.6 mmol/L (98-107); Glucose 76 mg/dL (65-100); Potassium 4.7 mmol/L (3.6-5.0); Sodium 141 mmol/L (137-145)
[2017-06-18] MEDS: PERCOCET 5/325 PO PRN ×3 (06:07→21:24)
[2017-06-18] MEDS: TESSALON PERLES PO SCH ×4 (06:08→21:24)
[2017-06-18] MEDS: NOVOLOG SUB-Q SCH ×4 (07:30→21:20)
[2017-06-18] MEDS: BROVANA NEBU IH SCH ×2 (08:12→19:53)
[2017-06-18] MEDS: PULMICORT IH SCH ×2 (08:12→19:53)
[2017-06-18] MEDS: DUONEB *Not for PRN Use IH SCH ×3 (08:13→19:53)
[2017-06-18] MEDS: EMTRIVA PO SCH (09:40)
[2017-06-18] MEDS: ISENTRESS PO SCH ×2 (09:40→21:24)
[2017-06-18] MEDS: LOVENOX SUB-Q SCH (09:40)
[2017-06-18] MEDS: VIREAD PO SCH (09:40)
[2017-06-18] MEDS: NORVASC PO SCH (09:41)
[2017-06-18] MEDS: DELTASONE PO SCH (09:41)
[2017-06-18] MEDS: FLONASE NS SCH (09:42)
[2017-06-18] MEDS: LASIX PO SCH (09:42)
--- NOTE | 2017-06-18 15:04 | Discharge Summary ---
Providers - Providers Date of Admission: 06/05/17 05:10 Date of discharge: 06/18/17 Attending physician: RALEIGH ROSAS 06/05/17 12:36 Consult to Physician [CONS] Urgent Consulting Provider: [facility] Reason For Exam: vaginal discharge c pain Place consult to:: [facility] [employer] Notified:: Meghann dee Phone number called:: [phone] Was contact made?: Yes If yes, spoke with:: Meghann VASQUEZ Time called:: 12:40 Comment:: Dr. Padron will see pt 06/10/17 12:05 Consult to Physician [CONS] Routine Consulting Provider: JOSÉ CLARK Reason For Exam: dyspnea Place consult to:: Notified:: Phone number called:: [phone] Was contact made?: Yes If yes, spoke with:: KAILEE Time called:: 13:26 Comment:: SHARIF Primary care physician: [facility]ESSIONAL [employer]OR Hospitalization Condition: Stable Hospital course: Assessment and Plan COPD exacerbation -Improved - Will discharge on oral steroids duonebs and Levaquin for 6 days DM2 with hyperglycemia - Continue home insulin plus sliding scale insulin HIV/AIDS - Continue medications - Continue Bactrim for prophylaxis Enterovaginal fistula - Patient was 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 Krause Vaginal candidiasis. -Continue Diflucan Morbid obesity - Advised about diet and exercise Discharge today Disposition: DC-01 TO HOME OR SELFCARE Core Measure Documentation - Palliative Care Palliative Care/ Comfort Measures: Not Applicable - Core Measures Any of the following diagnoses?: none Exam - Constitutional Vitals: Temp Pulse Resp BP Pulse Ox 98.2 F 95 H 20 120/79 99 06/18/17 08:18 06/18/17 14:15 06/18/17 14:15 06/18/17 09:41 06/18/17 08:18 General appearance: Present: no acute distress, well-nourished - EENT Eyes: Present: PERRL ENT: hearing intact, clear oral mucosa - Neck Neck: Present: supple, normal ROM - Respiratory Respiratory effort: normal Respiratory: bilateral: CTA - Cardiovascular Heart rate: 70 Rhythm: regular Heart Sounds: Present: S1 & S2. Absent: rub, click - Extremities Extremities: pulses symmetrical, No edema Peripheral Pulses: within normal limits - Abdominal General gastrointestinal: Present: soft, non-tender, non-distended, normal bowel sounds Female genitourinary: Present: normal - Integumentary Integumentary: Present: clear, warm, dry - Musculoskeletal Musculoskeletal: gait normal, strength equal bilaterally - Psychiatric Psychiatric: appropriate mood/affect, intact judgment & insight - Neurologic Neurologic: CNII-XII intact, moves all extremities - Allied Health Allied health notes reviewed: nursing, case management Plan Activity: no restrictions Diet: low cholesterol, low salt Follow up with: PRIMARY CAREMD [Primary Care Provider] - 3-5 Days LUIS VIVEROS MD [Staff Physician] - 7 Days
[2017-06-18 19:18] VITALS: BP 92/75
[2017-06-18] MEDS: LEVEMIR SUB-Q SCH (21:20)
[2017-06-18] MEDS: DILANTIN PO SCH (21:25)
== END 2017-06-18 21:50 | disposition home or self-care (01) | DRG 190 ==
LOC: ED 10:59 → 3A 06-05 05:10 → CC2 06-05 07:49
PROVIDERS: ADMIT Internal Medicine; ATTEND Internal Medicine
DX: J44.0 Chronic obstructive pulmonary disease with (acute) lower respiratory infection (principal); B20 Human immunodeficiency virus [HIV] disease; N82.4 Other female intestinal-genital tract fistulae; J44.1 Chronic obstructive pulmonary disease with (acute) exacerbation; I50.9 Heart failure, unspecified; R56.9 Unspecified convulsions; E66.01 Morbid (severe) obesity due to excess calories; E11.65 Type 2 diabetes mellitus with hyperglycemia; B37.3 Candidiasis of vulva and vagina; I11.0 Hypertensive heart disease with heart failure; J20.9 Acute bronchitis, unspecified; F31.9 Bipolar disorder, unspecified; F20.9 Schizophrenia, unspecified; Z90.710 Acquired absence of both cervix and uterus; Z68.39 Body mass index [BMI] 39.0-39.9, adult; Z88.1 Allergy status to other antibiotic agents; Z91.013 Allergy to seafood; Z71.3 Dietary counseling and surveillance; Z79.899 Other long term (current) drug therapy; Z82.49 Family history of ischemic heart disease and other diseases of the circulatory system
CPT/HCPCS: 36415; 71010; 71020; 80048; 82550; 82553; 82962; 83880; 84484; 85007; 85025; 87529; 87591; 93005; 93010; 94640; 94760; 96374; 96375; J1650; J1815; J1818; J2270; J2405; J2920; J2930; J7512

== ENCOUNTER 2017-07-25 07:17 | Inpatient (IN) | payer MEDICARE ==
[2017-07-25] MEDS ORDERED: MUCINEX ER PO ONE (07:24)
[2017-07-25] MEDS ORDERED: LASIX IV ONE (07:24)
[2017-07-25] MEDS ORDERED: TESSALON PERLES PO ONE ×2 (07:24→14:41)
[2017-07-25] MEDS ORDERED: DUONEB *Not for PRN Use IH ONE ×2 (07:32→14:46)
--- NOTE | 2017-07-25 08:01 | XRay Report ---
FINAL REPORT PROCEDURE: XR CHEST 1V AP TECHNIQUE: Chest radiograph anteroposterior view. CPT 64154 HISTORY: chest pain COMPARISON: 03/21/2017 FINDINGS: Heart: Normal. Mediastinum/Vessels: Normal. Lungs/Pleural space: Normal. Bony thorax: No acute osseous abnormality. Life support devices: None. IMPRESSION: No acute cardiopulmonary abnormality.
[2017-07-25 08:32] LABS: Hematocrit 25.2 % (30.3-42.9); Hemoglobin 7.5 gm/dl (10.1-14.3); Mean Corpuscular HGB Conc 30 % (30-34); Mean Corpuscular Volume 71 fl (79-97); Platelet Count 266 K/mm3 (140-440); Red Blood Count 3.53 M/mm3 (3.65-5.03); White Blood Count 4.6 K/mm3 (4.5-11.0)
[2017-07-25 08:33] LABS: Anion Gap 16 mmol/L; BUN/Creatinine Ratio 14; Blood Urea Nitrogen 13 mg/dL (7-17); Calcium 8.5 mg/dL (8.4-10.2); Carbon Dioxide 24 mmol/L (22-30); Chloride 106.6 mmol/L (98-107); Glucose 84 mg/dL (65-100); Potassium 3.7 mmol/L (3.6-5.0); Sodium 143 mmol/L (137-145)
[2017-07-25 08:34] LABS: Mean Corpuscular Hemoglobin 21 pg (28-32); Red Cell Distribution Width 21.1 % (13.2-15.2)
[2017-07-25] MEDS ORDERED: LASIX PO ONE (08:37)
[2017-07-25] MEDS ORDERED: DELTASONE PO ONE (08:37)
[2017-07-25 08:45] LABS: ISTAT Base Excess -5; ISTAT HCO3 20.4; ISTAT PCO2 34.5 (35-45); ISTAT PH 7.379 (7.35-7.45); ISTAT PO2 89 (80-105); ISTAT SO2 97; ISTAT TCO2 21
[2017-07-25 09:16] LABS: Basophils % (Manual) 0 % (0.0-1.8); Blastocytes % (Manual) 0 %; Eosinophils % (Manual) 0 % (0.0-4.3)
[2017-07-25 09:17] LABS: Anisocytosis 1+; Hypochromasia 2+; Tear Drop Cells Few
[2017-07-25 09:18] LABS: Diff Status Complete
[2017-07-25 09:57] LABS: Bilirubin,Urine NEG (Negative); Blood,Urine NEG (Negative); Ketones,Urine NEG (Negative); Leukocyte Esterase,Urine TR (Negative); Nitrite,Urine NEG (Negative); Protein,Urine <15 mg/dL mg/dL (Negative); Urobilinogen,Urine < 2.0 mg/dL (<2.0)
--- NOTE | 2017-07-25 11:09 | Emergency Department Report ---
HPI - General Chief Complaint: Adult Asthma Time Seen by Provider: 07/25/17 07:24 - HPI HPI: The patient is a 61-year-old female with significant history of COPD, CHF, and presents for evaluation of dyspnea. The patient reports constant and severe dyspnea for the past 2 days, exacerbated with physical activity or exertion, and improved at rest. She submits that she also has experienced black tarry stools for the past 2 days, and on and off mild 2/10 in severity upper abdominal pain, crampy in quality, exacerbated with eating. The patient denies fever, chest pain, syncope, hemoptysis, productive cough, unilateral leg swelling, recent immobilization, history of DVT or PE, recent cancer. ED Past Medical Hx - Past Medical History Previous Medical History?: Yes Hx Hypertension: Yes Hx Congestive Heart Failure: Yes Hx Diabetes: Yes Hx Deep Vein Thrombosis: No Hx Arthritis: No Hx Seizures: Yes Hx Psychiatric Treatment: Yes (bipolar disorder; schziphornia) Hx Asthma: Yes Hx COPD: Yes Hx HIV: Yes (last CD4 334 ~October 2016) Additional medical history: CDIFF, spinal stenosis - Surgical History Past Surgical History?: Yes Hx Pacemaker: No Hx Internal Defibrillator: No Additional Surgical History: hysterectomy; rt arm skin graph - Social History Smoking Status: Never Smoker Substance Use Type: None - Medications Home Medications: Home Medications Medication Instructions Recorded Confirmed Last Taken Type Miconazole 2% [Monistat 7 Vag 1 applicator VG QHS #1 tube 02/21/17 06/05/17 2 Days Ago Rx Cream] ~05/08/17 ALBUTEROL Inhaler [ProAir HFA 2 puff IH QID PRN #2 inhalation 03/13/17 06/05/17 2 Days Ago Rx Inhaler] ~05/08/17 Phenytoin (25 mg/ml) [Dilantin] 300 mg PO QHS #30 oral.liqd 03/23/17 06/05/17 2 Days Ago Rx ~05/08/17 Benzonatate [Tessalon Perles] 100 mg PO Q8HR #30 capsule 04/22/17 06/05/17 2 Days Ago Rx ~05/08/17 Emtricitabine/Tenofovir (Tdf) 2 each PO DAILY #60 tablet 04/22/17 06/05/17 2 Days Ago Rx [Truvada 100 mg-150 mg Tablet] ~05/08/17 Raltegravir Potassium [Isentress] 400 mg PO BID #60 tablet 04/22/17 06/05/17 2 Days Ago Rx ~05/08/17 Sulfamethoxazole/Trimethoprim 1 each PO Q12HR #14 tablet 04/22/17 06/05/17 2 Days Ago Rx [Bactrim DS TAB] ~05/08/17 amLODIPine [Norvasc] 5 mg PO QDAY #30 tablet 04/22/17 06/05/17 2 Days Ago Rx ~05/08/17 Arformoterol Nebu [Brovana Nebu] 15 mcg IH Q12HRT ml 05/12/17 06/05/17 Unknown Rx Tenofovir [Viread] 300 mg PO QDAY tablet 05/12/17 06/05/17 Unknown Rx Azithromycin [Zithromax Z-LUAN] 250 mg PO DAILY #30 tablet 06/18/17 Unknown Rx Budesonide [Pulmicort Respules] 0.25 mg IH Q12HRT #60 nebu 06/18/17 Unknown Rx Furosemide [Lasix TAB] 40 mg PO QDAY #30 tablet 06/18/17 Unknown Rx Insulin Detemir [Levemir] 15 units SUB-Q QHS #1 vial 06/18/17 Unknown Rx Ipratropium/Albuterol Sulfate 1 ampul IH TIDRT #100 ampul.neb 06/18/17 Unknown Rx [DUONEB *Not for PRN Use*] Prednisone [predniSONE 10 mg 10 mg PO .TAPER #1 tab.ds.pk 06/18/17 Unknown Rx (6-Day Pack, 21 Tabs)] QUEtiapine [SEROquel] 200 mg PO QHS #30 tablet 06/18/17 Unknown Rx Tenofovir [Viread] 300 mg PO QDAY tablet 06/18/17 Unknown Rx Tiotropium [place] [Spiriva 4 gm IH DAILY #1 mist.inhal 06/18/17 Unknown Rx Respimat] Zolpidem [Ambien] 5 mg PO QHS PRN #10 tablet 06/18/17 Unknown Rx oxyCODONE /ACETAMINOPHEN [Percocet 2 tab PO Q6H PRN #30 tablet 06/18/17 Unknown Rx 5/325 mg] predniSONE [Deltasone] 10 mg PO QDAY #40 tablet 06/18/17 Unknown Rx ED Review of Systems ROS: Stated complaint: CARL Other details as noted in HPI Constitutional: denies: fever ENT: denies: throat or neck pain Respiratory: denies: cough reports shortness of breath Cardiovascular: denies: chest pain Endocrine: denies unexplained weight loss or gain Gastrointestinal: reports abdominal pain, nausea Genitourinary: reports melena denies: dysuria Musculoskeletal: denies: leg swelling Skin: denies: rash Neurological: denies: headache Hematological/Lymphatic: denies: easy bleeding or easy bruising Psych: denies sadness or hopelessness Physical Exam - Physical Exam Vital Signs: Vital Signs 07/25/17 07/25/17 07/25/17 07:26 07:30 07:31 Temperature 98.6 F Pulse Rate 98 H 104 H Pulse Rate [ Posterior Bilateral Throughout] Respiratory 20 17 Rate Respiratory Rate [Posterior Bilateral Throughout] Blood Pressure 136/86 136/86 O2 Sat by Pulse 96 97 95 Oximetry 07/25/17 07/25/17 07/25/17 07:33 07:35 07:38 Temperature Pulse Rate 102 H 101 H Pulse Rate [ Posterior Bilateral Throughout] Respiratory 16 12 20 Rate Respiratory Rate [Posterior Bilateral Throughout] Blood Pressure 136/86 136/86 O2 Sat by Pulse 96 96 96 Oximetry 07/25/17 07/25/17 07/25/17 08:01 08:04 08:17 Temperature Pulse Rate 92 H Pulse Rate [ 93 H 99 H Posterior Bilateral Throughout] Respiratory 12 Rate Respiratory 20 20 Rate [Posterior Bilateral Throughout] Blood Pressure 136/86 O2 Sat by Pulse 99 Oximetry 07/25/17 07/25/17 07/25/17 08:31 09:00 09:31 Temperature Pulse Rate 93 H 96 H 90 Pulse Rate [ Posterior Bilateral Throughout] Respiratory 12 18 14 Rate Respiratory Rate [Posterior Bilateral Throughout] Blood Pressure 136/86 162/98 162/98 O2 Sat by Pulse 98 100 97 Oximetry 07/25/17 10:00 Temperature Pulse Rate 103 H Pulse Rate [ Posterior Bilateral Throughout] Respiratory 13 Rate Respiratory Rate [Posterior Bilateral Throughout] Blood Pressure 146/102 O2 Sat by Pulse 96 Oximetry Physical Exam: General: well-nourished, well-developed, no acute distress Head: Normocephalic, atraumatic Eyes: normal sclera ENT: Mucous membranes are pale and dry Neck: trachea midline, neck supple, No neck stiffness, no cervical adenopathy Respiratory: Diminished breath sounds and wheezing present throughout lung murcia bilaterally, mild bibasilar crackles present Cardio: S1 and S2 present, no murmurs, rubs, gallops, capillary refill is delayed Abdomen: Normoactive bowel sounds, soft abdomen, epigastric tenderness no rigidity, no guarding or rebound tenderness Chest WALL/Back: No tenderness to palpation of the chest wall, no CVA tenderness with percussion Musc: 1+ pitting edema present to bilateral lower extremities Skin: No rash Neuro: no facial drooping, normal speech Psych: Normal affect ED Course Vital Signs 07/25/17 07/25/17 07/25/17 07:26 07:30 07:31 Temperature 98.6 F Pulse Rate 98 H 104 H Pulse Rate [ Posterior Bilateral Throughout] Respiratory 20 17 Rate Respiratory Rate [Posterior Bilateral Throughout] Blood Pressure 136/86 136/86 O2 Sat by Pulse 96 97 95 Oximetry 07/25/17 07/25/17 07/25/17 07:33 07:35 07:38 Temperature Pulse Rate 102 H 101 H Pulse Rate [ Posterior Bilateral Throughout] Respiratory 16 12 20 Rate Respiratory Rate [Posterior Bilateral Throughout] Blood Pressure 136/86 136/86 O2 Sat by Pulse 96 96 96 Oximetry 07/25/17 07/25/17 07/25/17 08:01 08:04 08:17 Temperature Pulse Rate 92 H Pulse Rate [ 93 H 99 H Posterior Bilateral Throughout] Respiratory 12 Rate Respiratory 20 20 Rate [Posterior Bilateral Throughout] Blood Pressure 136/86 O2 Sat by Pulse 99 Oximetry 07/25/17 07/25/17 07/25/17 08:31 09:00 09:31 Temperature Pulse Rate 93 H 96 H 90 Pulse Rate [ Posterior Bilateral Throughout] Respiratory 12 18 14 Rate Respiratory Rate [Posterior Bilateral Throughout] Blood Pressure 136/86 162/98 162/98 O2 Sat by Pulse 98 100 97 Oximetry 07/25/17 10:00 Temperature Pulse Rate 103 H Pulse Rate [ Posterior Bilateral Throughout] Respiratory 13 Rate Respiratory Rate [Posterior Bilateral Throughout] Blood Pressure 146/102 O2 Sat by Pulse 96 Oximetry - Central Line Placement Left Femoral Consent Obtained: verbal consent Time Out Performed: Yes (1045am) Patient Placed on Monitor/Pulse Ox: Yes Prep: mask, gown, gloves Central Line Prep: Chlorhexidine scrub Local Anesthesia Used: Lidocaine 2% Amount of Anesthesia Used (mls): 3 Ultrasound Used for Placement: Yes Central Line Lumen Inserted: triple Bloods Obtained for Lab: No Central Line Position: good blood return, all ports aspirated, flus, sutured in place with 2-0 Dressing Applied: Tegaderm Patient Tolerated Procedure: well, no complications Complications: none ED Medical Decision Making - Lab Data Result diagrams: 07/25/17 13:50 07/25/17 07:33 - Medical Decision Making The patient was seen and examined by myself. The patient is placed on a admissions representative and continuous pulse ox. On initial evaluation, the patient was found to be in no distress. Evaluation orders were placed. The patient is given a DuoNeb breathing treatment and oral prednisone for her COPD exacerbation. X-ray of the chest is negative for emergent disease process. Lab results revealed low hemoglobin of 7.5. Medical records are reviewed and revealed that the patient's typical hemoglobin baseline is 10 or greater. As the patient is tachycardic, symptomatic with shortness of breath, found to have significantly decreased hemoglobin compared to previous concentration levels, the patient will be transfused packed red blood cells and admitted for stabilization and further evaluation by gastroenterology. A type and screen and PRBCs are ordered. IV access was unable to be obtained despite multiple attempts at peripheral IVs and EJ placement by myself. Therefore a left femoral central line is placed under ultrasound guidance in order to provide the patient with needed blood transfusion. The on-call hospitalist service was contacted. Dr. Krause agreed to admit the patient for further treatment and close monitoring. The ED admit order was placed. The patient was admitted in guarded condition. Critical care attestation.: If time is entered above; I have spent that time in minutes in the direct care of this critically ill patient, excluding procedure time. ED Disposition Clinical Impression: Acute exacerbation of chronic obstructive pulmonary disease (COPD), Acute upper gastrointestinal bleeding, Severe anemia, Anemia requiring transfusions CHF (congestive heart failure) Qualifiers: Congestive heart failure type: systolic Congestive heart failure chronicity: chronic Qualified Code(s): I50.22 - Chronic systolic (congestive) heart failure Disposition: OP ADMIT IP TO THIS HOSP Is pt being admited?: Yes Does the pt Need Aspirin: No (gi bleeding) Condition: Serious Referrals: PRIMARY CARE, [Primary Care Provider] - 3-5 Days Time of Disposition: 11:08
[2017-07-25] MEDS ORDERED: NACL 0.9% 500 ML 500 ML IV ONE (12:01)
[2017-07-25] MEDS ORDERED: PROTONIX IV ONE (12:01)
[2017-07-25] MEDS ORDERED: PROAIR IH PRN (12:34)
[2017-07-25] MEDS ORDERED: PROVENTIL IH PRN (12:52)
[2017-07-25] MEDS: PERCOCET 5/325 PO PRN (13:10)
[2017-07-25 13:23] LABS: INR 0.92 (0.87-1.13)
--- NOTE | 2017-07-25 13:33 | Cat Scan Report ---
CT ABDOMEN PELVIS WITH CONTRAST: HISTORY: Abdominal pain, melena. COMPARISON: none. TECHNIQUE: Helical CT in 1.25mm intervals following IV contrast. Sagittal and coronal reconstructions. FINDINGS: Lung bases: normal. Liver: normal. Biliary system: normal. Pancreas: normal. Spleen: normal. Kidneys/ureters/bladder: normal. Adrenal glands: normal. Aorta: normal. Intestines: Unremarkable given no oral contrast was administered. Appendix: normal. Pelvic viscera: Hysterectomy changes are suspected. Musculoskeletal: normal. IMPRESSION: No acute abdominal process is appreciated.
[2017-07-25 13:53] LABS: Hematocrit 35.7 % (30.3-42.9); Hemoglobin 11.8 gm/dl (10.1-14.3)
[2017-07-25] MEDS: ZITHROMAX PO SCH (14:07)
[2017-07-25] MEDS: TESSALON PERLES PO SCH ×2 (14:52→22:33)
[2017-07-25] MEDS: DUONEB *Not for PRN Use IH SCH ×2 (14:52→20:56)
--- NOTE | 2017-07-25 15:29 | History and Physical Report ---
History of Present Illness Date of examination: 07/25/17 Date of admission: 07/25/17 11:58 Chief complaint: Short of breath History of present illness: 61-year-old -[place] female with past medical history significant for COPD, AIDS, diabetes mellitus type 2, congestive heart failure, seizure presented to the emergency department complaining of; she couldn't breath for the last 4 days despite using her rescue inhaler. Patient showed associated cough productive of yellowish sputum for the last 3-4 days, fever, chills. Patient is complaining that she has been distended on this very for the last 3 days, sharp, constant, with radiation to both arms, associated with diaphoresis and shortness of breath. Patient subsequently complaining that she had dark stools for the last 4 days but denied any abdominal pain, use of NSAIDs. Patient has been admitted many times for COPD exacerbation. REVIEW OF SYSTEMS: GENERAL: no weight change, no fatigue,+ fever HEAD: no head ache EYES: no blurry vision, no acute visual loss EARS: no hearing loss, no discharge, no earache NOSE: no stuffiness, no sneezing, no discharge MOUTH, THROAT AND NECK: no bleeding gums, no sore throat, no swollen neck CARDIAC: As stated in the HPI. RESPIRATORY: As stated in the HPI. GI: no decreased appetite, no nausea, no vomiting, no dysphagia, no diarrhea, no constipation, no abdominal pain URINARY: no change in frequency, no urgency, no polyuria, no hematuria, no incontinence MUSCULOSKELETAL: no muscle weakness, no pain, no joint stiffness NEUROLOGIC: no loss of sensation/numbness, no tingling, no tremors, no weakness/ paralysis HEMATOLOGIC: no anemia, no easy bruising SKIN: no rashes ENDOCRINE: no heat/cold intolerance, no polyuria, no polydipsia, no thyroid problems, + diabetes PSYCHIATRIC: no anxiety, no depression, no suicidal ideations Past History Past Medical History: COPD (AIDSAIDS), diabetes, hypertension, hyperlipidemia, seizures, other (AIDS) Past Surgical History: hysterectomy Social history: full code. denies: smoking, alcohol abuse, prescription drug abuse, IV drug use Family history: cancer (Mother) Medications and Allergies Allergies Allergy/AdvReac Type Severity Reaction Status Date / Time shellfish derived Allergy Severe Shortness Verified 06/04/17 11:05 of Breath ibuprofen [From Motrin] Allergy Mild Shortness Verified 06/04/17 11:05 of Breath tetracycline Allergy Shortness Verified 06/04/17 11:05 of Breath Home Medications Medication Instructions Recorded Confirmed Last Taken Type Miconazole 2% [Monistat 7 Vag 1 applicator VG QHS #1 tube 02/21/17 06/05/17 2 Days Ago Rx Cream] ~05/08/17 ALBUTEROL Inhaler [ProAir HFA 2 puff IH QID PRN #2 inhalation 03/13/17 06/05/17 2 Days Ago Rx Inhaler] ~05/08/17 Phenytoin (25 mg/ml) [Dilantin] 300 mg PO QHS #30 oral.liqd 03/23/17 06/05/17 2 Days Ago Rx ~05/08/17 Benzonatate [Tessalon Perles] 100 mg PO Q8HR #30 capsule 04/22/17 06/05/17 2 Days Ago Rx ~05/08/17 Emtricitabine/Tenofovir (Tdf) 2 each PO DAILY #60 tablet 04/22/17 06/05/17 2 Days Ago Rx [Truvada 100 mg-150 mg Tablet] ~05/08/17 Raltegravir Potassium [Isentress] 400 mg PO BID #60 tablet 04/22/17 06/05/17 2 Days Ago Rx ~05/08/17 Sulfamethoxazole/Trimethoprim 1 each PO Q12HR #14 tablet 04/22/17 06/05/17 2 Days Ago Rx [Bactrim DS TAB] ~05/08/17 amLODIPine [Norvasc] 5 mg PO QDAY #30 tablet 04/22/17 06/05/17 2 Days Ago Rx ~05/08/17 Arformoterol Nebu [Brovana Nebu] 15 mcg IH Q12HRT ml 05/12/17 06/05/17 Unknown Rx Tenofovir [Viread] 300 mg PO QDAY tablet 05/12/17 06/05/17 Unknown Rx Azithromycin [Zithromax Z-LUAN] 250 mg PO DAILY #30 tablet 06/18/17 Unknown Rx Budesonide [Pulmicort Respules] 0.25 mg IH Q12HRT #60 nebu 06/18/17 Unknown Rx Furosemide [Lasix TAB] 40 mg PO QDAY #30 tablet 06/18/17 Unknown Rx Insulin Detemir [Levemir] 15 units SUB-Q QHS #1 vial 06/18/17 Unknown Rx Ipratropium/Albuterol Sulfate 1 ampul IH TIDRT #100 ampul.neb 06/18/17 Unknown Rx [DUONEB *Not for PRN Use*] Prednisone [predniSONE 10 mg 10 mg PO .TAPER #1 tab.ds.pk 06/18/17 Unknown Rx (6-Day Pack, 21 Tabs)] QUEtiapine [SEROquel] 200 mg PO QHS #30 tablet 06/18/17 Unknown Rx Tenofovir [Viread] 300 mg PO QDAY tablet 06/18/17 Unknown Rx Tiotropium [place] [Spiriva 4 gm IH DAILY #1 mist.inhal 06/18/17 Unknown Rx Respimat] Zolpidem [Ambien] 5 mg PO QHS PRN #10 tablet 06/18/17 Unknown Rx oxyCODONE /ACETAMINOPHEN [Percocet 2 tab PO Q6H PRN #30 tablet 06/18/17 Unknown Rx 5/325 mg] predniSONE [Deltasone] 10 mg PO QDAY #40 tablet 06/18/17 Unknown Rx Active Meds: Active Medications Albuterol (Proventil) 2.5 mg IH QIDRT PRN PRN Reason: Shortness Of Breath Albuterol/Ipratropium (Duoneb *Not For Prn Use*) 1 ampul IH TIDRT [facility] Last Admin: 07/25/17 14:52 Dose: 1 ampul Amlodipine Besylate (Norvasc) 5 mg PO QDAY [facility] Arformoterol Tartrate (Brovana Nebu) 15 mcg IH Q12HRT [facility] Azithromycin (Zithromax) 500 mg PO Q24H [facility] Last Admin: 07/25/17 14:07 Dose: 500 mg Benzonatate (Tessalon Perles) 100 mg PO Q8HR [facility] Last Admin: 07/25/17 14:52 Dose: 100 mg Budesonide (Pulmicort) 0.25 mg IH Q12HRT [facility] Furosemide (Lasix) 40 mg PO QDAY [facility] Insulin Detemir (Levemir) 15 units SUB-Q QHS [facility] Methylprednisolone Sodium Succinate (Solu-Medrol) 60 mg IV Q8H [facility] Last Admin: 07/25/17 12:55 Dose: 60 mg Miconazole Nitrate (Monistat) 1 applicator VG QHS [facility] Miscellaneous Medication (Emtricitabine/Tenofovir (Tdf) [Truvada 100 Mg-150 Mg Tablet]) 2 each PO DAILY [facility] Oxycodone/Acetaminophen (Percocet 5/325) 2 tab PO Q6H PRN PRN Reason: Pain, Moderate (4-6) Last Admin: 07/25/17 13:10 Dose: 2 tab Phenytoin (Dilantin) 300 mg PO QHS [facility] Quetiapine Fumarate (Seroquel) 200 mg PO QHS [facility] Raltegravir (Isentress) 400 mg PO BID [facility] Trimethoprim/Sulfamethoxazole (Bactrim Ds) 1 each PO Q12HR [facility] Exam - Physical Exam Narrative exam: Not in cardiopulmonary distress. The patient is obese. Vital signs as documented. Head exam is unremarkable. No scleral icterus . Neck is without jugular venous distension, thyromegaly, or carotid bruits. Lungs wheezing all over the chest. Cardiac exam reveals regular rate and Rhythm. First and second heart sounds normal. No murmurs, rubs or gallops. Abdominal exam reveals normal bowel sounds, no masses, no organomegaly and no aortic enlargement. Extremities are nonedematous and both femoral and pedal pulses are normal. [employer]: Alert and oriented 3. No focal weakness. - Constitutional Vitals: Temp Pulse Resp BP Pulse Ox 98.6 F 102 H 18 146/102 96 07/25/17 07:26 07/25/17 13:01 07/25/17 13:10 07/25/17 13:01 07/25/17 10:00 Results - Labs CBC & Chem 7: 07/25/17 13:50 07/25/17 07:33 Labs: Laboratory Last Values WBC 4.6 K/mm3 (4.5-11.0) 07/25/17 07:33 RBC 3.53 M/mm3 (3.65-5.03) L 07/25/17 07:33 Hgb 11.8 gm/dl (10.1-14.3) D 07/25/17 13:50 Hct 35.7 % (30.3-42.9) D 07/25/17 13:50 MCV 71 fl (79-97) L 07/25/17 07:33 MCH 21 pg (28-32) L 07/25/17 07:33 MCHC 30 % (30-34) 07/25/17 07:33 RDW 21.1 % (13.2-15.2) H 07/25/17 07:33 Plt Count 266 K/mm3 (140-440) 07/25/17 07:33 Add Manual Diff Complete 07/25/17 07:33 Total Counted 100 07/25/17 07:33 Seg Neuts % (Manual) 75.0 % (40.0-70.0) H 07/25/17 07:33 Band Neutrophils % 0 % 07/25/17 07:33 Lymphocytes % (Manual) 20.0 % (13.4-35.0) 07/25/17 07:33 Reactive Lymphs % (Man) 1.0 % 07/25/17 07:33 Monocytes % (Manual) 1.0 % (0.0-7.3) 07/25/17 07:33 Eosinophils % (Manual) 0 % (0.0-4.3) 07/25/17 07:33 Basophils % (Manual) 0 % (0.0-1.8) 07/25/17 07:33 Metamyelocytes % 3.0 % 07/25/17 07:33 Myelocytes % 0 % 07/25/17 07:33 Promyelocytes % 0 % 07/25/17 07:33 Blast Cells % 0 % 07/25/17 07:33 Nucleated RBC % Not Reportable 07/25/17 07:33 Seg Neutrophils # Man 3.5 K/mm3 (1.8-7.7) 07/25/17 07:33 Band Neutrophils # 0.0 K/mm3 07/25/17 07:33 Lymphocytes # (Manual) 0.9 K/mm3 (1.2-5.4) L 07/25/17 07:33 Abs React Lymphs (Man) 0.0 K/mm3 07/25/17 07:33 Monocytes # (Manual) 0.0 K/mm3 (0.0-0.8) 07/25/17 07:33 Eosinophils # (Manual) 0.0 K/mm3 (0.0-0.4) 07/25/17 07:33 Basophils # (Manual) 0.0 K/mm3 (0.0-0.1) 07/25/17 07:33 Metamyelocytes # 0.1 K/mm3 07/25/17 07:33 Myelocytes # 0.0 K/mm3 07/25/17 07:33 Promyelocytes # 0.0 K/mm3 07/25/17 07:33 Blast Cells # 0.0 K/mm3 07/25/17 07:33 WBC Morphology Not Reportable 07/25/17 07:33 Hypersegmented Neuts Not Reportable 07/25/17 07:33 Hyposegmented Neuts Not Reportable 07/25/17 07:33 Hypogranular Neuts Not Reportable 07/25/17 07:33 Smudge Cells Not Reportable 07/25/17 07:33 Toxic Granulation Not Reportable 07/25/17 07:33 Toxic Vacuolation Not Reportable 07/25/17 07:33 Dohle Bodies Not Reportable 07/25/17 07:33 Pelger-Huet Anomaly Not Reportable 07/25/17 07:33 Susan Rods Not Reportable 07/25/17 07:33 Platelet Estimate Appears normal 07/25/17 07:33 Clumped Platelets Not Reportable 07/25/17 07:33 Plt Clumps, EDTA Not Reportable 07/25/17 07:33 Large Platelets Not Reportable 07/25/17 07:33 Giant Platelets Not Reportable 07/25/17 07:33 Platelet Satelliting Not Reportable 07/25/17 07:33 Plt Morphology Comment Not Reportable 07/25/17 07:33 RBC Morphology Not Reportable 07/25/17 07:33 Dimorphic RBCs Not Reportable 07/25/17 07:33 Polychromasia Not Reportable 07/25/17 07:33 Hypochromasia 2+ 07/25/17 07:33 Poikilocytosis Not Reportable 07/25/17 07:33 Anisocytosis 1+ 07/25/17 07:33 Microcytosis Not Reportable 07/25/17 07:33 Macrocytosis Not Reportable 07/25/17 07:33 Spherocytes Not Reportable 07/25/17 07:33 Pappenheimer Bodies Not Reportable 07/25/17 07:33 Sickle Cells Not Reportable 07/25/17 07:33 Target Cells Not Reportable 07/25/17 07:33 Tear Drop Cells Few 07/25/17 07:33 Ovalocytes Not Reportable 07/25/17 07:33 Helmet Cells Not Reportable 07/25/17 07:33 [place] Bodies Not Reportable 07/25/17 07:33 [place] Rings Not Reportable 07/25/17 07:33 [place] Cells Not Reportable 07/25/17 07:33 Bite Cells Not Reportable 07/25/17 07:33 Crenated Cell Not Reportable 07/25/17 07:33 Elliptocytes Not Reportable 07/25/17 07:33 Acanthocytes (Spur) Not Reportable 07/25/17 07:33 Rouleaux Not Reportable 07/25/17 07:33 Hemoglobin C Crystals Not Reportable 07/25/17 07:33 Schistocytes Not Reportable 07/25/17 07:33 Malaria parasites Not Reportable 07/25/17 07:33 [place] Bodies Not Reportable 07/25/17 07:33 Hem Pathologist Commnt No 07/25/17 07:33 PT 12.8 Sec. (12.2-14.9) 07/25/17 12:20 INR 0.92 (0.87-1.13) 07/25/17 12:20 APTT 20.0 Sec. (24.2-36.6) L 07/25/17 12:20 POC ABG pH 7.379 (7.35-7.45) 07/25/17 08:34 POC ABG pCO2 34.5 (35-45) L 07/25/17 08:34 POC ABG pO2 89 (80-105) 07/25/17 08:34 POC ABG HCO3 20.4 07/25/17 08:34 POC ABG Total CO2 21 07/25/17 08:34 POC ABG O2 Sat 97 07/25/17 08:34 POC ABG Base Excess -5 07/25/17 08:34 FiO2 21 % 07/25/17 08:34 Sodium 143 mmol/L (137-145) 07/25/17 07:33 Potassium 3.7 mmol/L (3.6-5.0) 07/25/17 07:33 Chloride 106.6 mmol/L (98-107) 07/25/17 07:33 Carbon Dioxide 24 mmol/L (22-30) 07/25/17 07:33 Anion Gap 16 mmol/L 07/25/17 07:33 BUN 13 mg/dL (7-17) 07/25/17 07:33 Creatinine 0.9 mg/dL (0.7-1.2) 07/25/17 07:33 Estimated GFR > 60 ml/min 07/25/17 07:33 BUN/Creatinine Ratio 14 % 07/25/17 07:33 Glucose 84 mg/dL (65-100) 07/25/17 07:33 Calcium 8.5 mg/dL (8.4-10.2) 07/25/17 07:33 NT-Pro-B Natriuret Pep 42.25 pg/mL (0-900) 07/25/17 07:33 Urine Color Straw (Yellow) 07/25/17 09:50 Urine Turbidity Clear (Clear) 07/25/17 09:50 Urine pH 6.0 (5.0-7.0) 07/25/17 09:50 Ur Specific [place] 1.025 (1.003-1.030) 07/25/17 09:50 Urine Protein <15 mg/dl mg/dL (Negative) 07/25/17 09:50 Urine Glucose (UA) >=500 mg/dL (Negative) 07/25/17 09:50 Urine Ketones Neg mg/dL (Negative) 07/25/17 09:50 Urine Blood Neg (Negative) 07/25/17 09:50 Urine Nitrite Neg (Negative) 07/25/17 09:50 Urine Bilirubin Neg (Negative) 07/25/17 09:50 Urine Urobilinogen < 2.0 mg/dL (<2.0) 07/25/17 09:50 Ur Leukocyte Esterase Tr (Negative) 07/25/17 09:50 Urine WBC (Auto) 4.0 /HPF (0.0-6.0) 07/25/17 09:50 Urine RBC (Auto) 1.0 /HPF (0.0-6.0) 07/25/17 09:50 U Epithel Cells (Auto) < 1.0 /HPF (0-13.0) 07/25/17 09:50 Blood Type O POSITIVE 07/25/17 12:20 Antibody Screen Negative 07/25/17 12:20 Crossmatch See Detail 07/25/17 12:20 - Imaging and Cardiology Chest x-ray: report reviewed (No acute cardiopulmonary abnormality) CT scan - abdomen: report reviewed (normal) CT scan - pelvis: report reviewed (Normal) Assessment and Plan Assessment and plan: Anemia secondary to Upper GI bleed - Her hemoglobin a month ago was 10.9 and to day 7.5 - Patient with such tachycardic and was transfused 1 unit of blood in the ED, will check H&H - GI consult placed - We will monitor H&H COPD exacerbation - Is being managed with IV Solu-Medrol, IV antibiotic, nebulizer, oxygen support HIV Chronic CHF Seizure Diabetes mellitus type 2 with hyperglycemia - Sliding scale insulin and basal insulin - Accu-Chek, ADA diet Will continue medications DVT prophylaxis - SCDs because of GI bleed Disposition - Given her tachycardia and shortness of breath, I will admit the patient to telemetry. Advance Directives: Yes VTE prophylaxis?: Mechanical Reason for no VTE Prophylaxis: Bleeding Plan of care discussed with patient/family: Yes
[2017-07-25] MEDS ORDERED: ROBITUSSIN AC PO PRN (15:39)
[2017-07-25] MEDS ORDERED: NACL 0.9% 500 ML 500 ML ONE (15:45)
--- NOTE | 2017-07-25 16:49 | Gastroenterology Consultation ---
History of Present Illness - Reason for Consult Consult date: 07/25/17 Anemia Requesting physician: BARBRA REYES - History of Present Illness The patient is a 61 yo female who is a very poor historian. Most of the history is per the chart and nursing/MD communication. She came to the ER for SOB (has about 10 admits/ER visits for asthma/CARL this year) but was noted to have dark stools. On questioning, she states that she has had dark stools for the last 4 days. She has no N/V in the ER and no melena. She denies NSAIDs because they trigger SOB. She has had an EGD by her report at [facility] 4 years ago, and an ulcer "may" have been dx. She takes no antiacids. She has an chronic rectovaginal fistula, but has not been evaluated by surgery (only [facility]ATH[facility] STAKER, who recommended CRS: patient has not followed up). She denies a colonoscopy in the last few years. There is an extensive family hx of cancer (lung, stomach) but the patient has a hx of bipolar/schizophrenia, and again, her history- giving ability is poor (often takes back or corrects statements). Past History Past Medical History: COPD (AIDSAIDS), diabetes, HIV/AIDS (CD4 > 1000 this year , but VL (+)), hypertension, hyperlipidemia, seizures, other (AIDS) Past Surgical History: hysterectomy Social history: full code. denies: smoking, alcohol abuse, prescription drug abuse, IV drug use Family history: cancer (Mother) Medications and Allergies Allergies Allergy/AdvReac Type Severity Reaction Status Date / Time shellfish derived Allergy Severe Shortness Verified 06/04/17 11:05 of Breath ibuprofen [From Motrin] Allergy Mild Shortness Verified 06/04/17 11:05 of Breath tetracycline Allergy Shortness Verified 06/04/17 11:05 of Breath Home Medications Medication Instructions Recorded Confirmed Last Taken Type Miconazole 2% [Monistat 7 Vag 1 applicator VG QHS #1 tube 02/21/17 06/05/17 2 Days Ago Rx Cream] ~05/08/17 ALBUTEROL Inhaler [ProAir HFA 2 puff IH QID PRN #2 inhalation 03/13/17 06/05/17 2 Days Ago Rx Inhaler] ~05/08/17 Phenytoin (25 mg/ml) [Dilantin] 300 mg PO QHS #30 oral.liqd 03/23/17 06/05/17 2 Days Ago Rx ~05/08/17 Benzonatate [Tessalon Perles] 100 mg PO Q8HR #30 capsule 04/22/17 06/05/17 2 Days Ago Rx ~05/08/17 Emtricitabine/Tenofovir (Tdf) 2 each PO DAILY #60 tablet 04/22/17 06/05/17 2 Days Ago Rx [Truvada 100 mg-150 mg Tablet] ~05/08/17 Raltegravir Potassium [Isentress] 400 mg PO BID #60 tablet 04/22/17 06/05/17 2 Days Ago Rx ~05/08/17 Sulfamethoxazole/Trimethoprim 1 each PO Q12HR #14 tablet 04/22/17 06/05/17 2 Days Ago Rx [Bactrim DS TAB] ~05/08/17 amLODIPine [Norvasc] 5 mg PO QDAY #30 tablet 04/22/17 06/05/17 2 Days Ago Rx ~05/08/17 Arformoterol Nebu [Brovana Nebu] 15 mcg IH Q12HRT ml 05/12/17 06/05/17 Unknown Rx Tenofovir [Viread] 300 mg PO QDAY tablet 05/12/17 06/05/17 Unknown Rx Azithromycin [Zithromax Z-LUAN] 250 mg PO DAILY #30 tablet 06/18/17 Unknown Rx Budesonide [Pulmicort Respules] 0.25 mg IH Q12HRT #60 nebu 06/18/17 Unknown Rx Furosemide [Lasix TAB] 40 mg PO QDAY #30 tablet 06/18/17 Unknown Rx Insulin Detemir [Levemir] 15 units SUB-Q QHS #1 vial 06/18/17 Unknown Rx Ipratropium/Albuterol Sulfate 1 ampul IH TIDRT #100 ampul.neb 06/18/17 Unknown Rx [DUONEB *Not for PRN Use*] Prednisone [predniSONE 10 mg 10 mg PO .TAPER #1 tab.ds.pk 06/18/17 Unknown Rx (6-Day Pack, 21 Tabs)] QUEtiapine [SEROquel] 200 mg PO QHS #30 tablet 06/18/17 Unknown Rx Tenofovir [Viread] 300 mg PO QDAY tablet 06/18/17 Unknown Rx Tiotropium [place] [Spiriva 4 gm IH DAILY #1 mist.inhal 06/18/17 Unknown Rx Respimat] Zolpidem [Ambien] 5 mg PO QHS PRN #10 tablet 06/18/17 Unknown Rx oxyCODONE /ACETAMINOPHEN [Percocet 2 tab PO Q6H PRN #30 tablet 06/18/17 Unknown Rx 5/325 mg] predniSONE [Deltasone] 10 mg PO QDAY #40 tablet 06/18/17 Unknown Rx Active Meds: Active Medications Albuterol (Proventil) 2.5 mg IH QIDRT PRN PRN Reason: Shortness Of Breath Albuterol/Ipratropium (Duoneb *Not For Prn Use*) 1 ampul IH TIDRT [facility] Last Admin: 07/25/17 14:52 Dose: 1 ampul Amlodipine Besylate (Norvasc) 5 mg PO QDAY [facility] Arformoterol Tartrate (Brovana Nebu) 15 mcg IH Q12HRT [facility] Azithromycin (Zithromax) 500 mg PO Q24H [facility] Last Admin: 07/25/17 14:07 Dose: 500 mg Benzonatate (Tessalon Perles) 100 mg PO Q8HR [facility] Last Admin: 07/25/17 14:52 Dose: 100 mg Budesonide (Pulmicort) 0.25 mg IH Q12HRT [facility] Furosemide (Lasix) 40 mg PO QDAY [facility] Insulin Detemir (Levemir) 15 units SUB-Q QHS [facility] Methylprednisolone Sodium Succinate (Solu-Medrol) 60 mg IV Q8H [facility] Last Admin: 07/25/17 12:55 Dose: 60 mg Miconazole Nitrate (Monistat) 1 applicator VG QHS [facility] Miscellaneous Medication (Emtricitabine/Tenofovir (Tdf) [Truvada 100 Mg-150 Mg Tablet]) 2 each PO DAILY [facility] Oxycodone/Acetaminophen (Percocet 5/325) 2 tab PO Q6H PRN PRN Reason: Pain, Moderate (4-6) Last Admin: 07/25/17 13:10 Dose: 2 tab Pantoprazole Sodium (Protonix) 40 mg PO QDAY [facility] Phenytoin (Dilantin) 300 mg PO QHS [facility] Pseudoephedrine/Acetam/Chlorphenir (Robitussin Ac) 10 ml PO Q4H PRN PRN Reason: Cough Quetiapine Fumarate (Seroquel) 200 mg PO QHS [facility] Raltegravir (Isentress) 400 mg PO BID [facility] Trimethoprim/Sulfamethoxazole (Bactrim Ds) 1 each PO Q12HR [facility] Review of Systems - Review of Systems All systems: negative (as noted in the HPI) Exam - Constitutional Vital Signs: Temp Pulse Resp BP Pulse Ox 98.8 F 94 H 12 134/94 98 07/25/17 16:06 07/25/17 16:06 07/25/17 16:06 07/25/17 16:06 07/25/17 15:51 General appearance: no acute distress, disheveled - EENT Eyes: PERRL, EOM intact ENT: hearing intact, clear oral mucosa, no thrush - Neck Neck: supple, normal ROM - Respiratory Respiratory effort: normal Respiratory: bilateral: CTA - Cardiovascular Rhythm: regular Heart Sounds: Present: S1 & S2 Extremities: no ischemia Extremity abnormal: edema (1+ in the ankles) - Gastrointestinal General gastrointestinal: Present: soft, non-tender, non-distended - Integumentary Integumentary: Present: clear, warm, dry - Musculoskeletal Musculoskeletal: normal - Neurologic Neurological: oriented to person, oriented to place, oriented to time - Psychiatric Psychiatric: agitated, depressed - Labs CBC & Chem 7: 07/25/17 13:50 07/25/17 07:33 Lab Results: Laboratory Results - last 24 hr 07/25/17 07/25/17 07/25/17 07:33 07:33 07:33 WBC 4.6 RBC 3.53 L Hgb 7.5 L Hct 25.2 L MCV 71 L MCH 21 L MCHC 30 RDW 21.1 H Plt Count 266 Add Manual Diff Complete Total Counted 100 Seg Neuts % (Manual) 75.0 H Band Neutrophils % 0 Lymphocytes % (Manual) 20.0 Reactive Lymphs % (Man) 1.0 Monocytes % (Manual) 1.0 Eosinophils % (Manual) 0 Basophils % (Manual) 0 Metamyelocytes % 3.0 Myelocytes % 0 Promyelocytes % 0 Blast Cells % 0 Nucleated RBC % Not Reportable Seg Neutrophils # Man 3.5 Band Neutrophils # 0.0 Lymphocytes # (Manual) 0.9 L Abs React Lymphs (Man) 0.0 Monocytes # (Manual) 0.0 Eosinophils # (Manual) 0.0 Basophils # (Manual) 0.0 Metamyelocytes # 0.1 Myelocytes # 0.0 Promyelocytes # 0.0 Blast Cells # 0.0 WBC Morphology Not Reportable Hypersegmented Neuts Not Reportable Hyposegmented Neuts Not Reportable Hypogranular Neuts Not Reportable Smudge Cells Not Reportable Toxic Granulation Not Reportable Toxic Vacuolation Not Reportable Dohle Bodies Not Reportable Pelger-Huet Anomaly Not Reportable Susan Rods Not Reportable Platelet Estimate Appears normal Clumped Platelets Not Reportable Plt Clumps, EDTA Not Reportable Large Platelets Not Reportable Giant Platelets Not Reportable Platelet Satelliting Not Reportable Plt Morphology Comment Not Reportable RBC Morphology Not Reportable Dimorphic RBCs Not Reportable Polychromasia Not Reportable Hypochromasia 2+ Poikilocytosis Not Reportable Anisocytosis 1+ Microcytosis Not Reportable Macrocytosis Not Reportable Spherocytes Not Reportable Pappenheimer Bodies Not Reportable Sickle Cells Not Reportable Target Cells Not Reportable Tear Drop Cells Few Ovalocytes Not Reportable Helmet Cells Not Reportable [place] Bodies Not Reportable [place] Rings Not Reportable [place] Cells Not Reportable Bite Cells Not Reportable Crenated Cell Not Reportable Elliptocytes Not Reportable Acanthocytes (Spur) Not Reportable Rouleaux Not Reportable Hemoglobin C Crystals Not Reportable Schistocytes Not Reportable Malaria parasites Not Reportable Barry Bodies Not Reportable Hem Pathologist Commnt No PT INR APTT POC ABG pH POC ABG pCO2 POC ABG pO2 POC ABG HCO3 POC ABG Total CO2 POC ABG O2 Sat POC ABG Base Excess FiO2 Sodium 143 Potassium 3.7 Chloride 106.6 Carbon Dioxide 24 Anion Gap 16 BUN 13 Creatinine 0.9 Estimated GFR > 60 BUN/Creatinine Ratio 14 Glucose 84 Calcium 8.5 NT-Pro-B Natriuret Pep 42.25 Urine Color Urine Turbidity Urine pH Ur Specific [place] Urine Protein Urine Glucose (UA) Urine Ketones Urine Blood Urine Nitrite Urine Bilirubin Urine Urobilinogen Ur Leukocyte Esterase Urine WBC (Auto) Urine RBC (Auto) U Epithel Cells (Auto) Blood Type Antibody Screen Crossmatch 07/25/17 07/25/17 07/25/17 08:34 09:50 12:20 WBC RBC Hgb Hct MCV MCH MCHC RDW Plt Count Add Manual Diff Total Counted Seg Neuts % (Manual) Band Neutrophils % Lymphocytes % (Manual) Reactive Lymphs % (Man) Monocytes % (Manual) Eosinophils % (Manual) Basophils % (Manual) Metamyelocytes % Myelocytes % Promyelocytes % Blast Cells % Nucleated RBC % Seg Neutrophils # Man Band Neutrophils # Lymphocytes # (Manual) Abs React Lymphs (Man) Monocytes # (Manual) Eosinophils # (Manual) Basophils # (Manual) Metamyelocytes # Myelocytes # Promyelocytes # Blast Cells # WBC Morphology Hypersegmented Neuts Hyposegmented Neuts Hypogranular Neuts Smudge Cells Toxic Granulation Toxic Vacuolation Dohle Bodies Pelger-Huet Anomaly Susan Rods Platelet Estimate Clumped Platelets Plt Clumps, EDTA Large Platelets Giant Platelets Platelet Satelliting Plt Morphology Comment RBC Morphology Dimorphic RBCs Polychromasia Hypochromasia Poikilocytosis Anisocytosis Microcytosis Macrocytosis Spherocytes Pappenheimer Bodies Sickle Cells Target Cells Tear Drop Cells Ovalocytes Helmet Cells [place] Bodies [place] Rings [place] Cells Bite Cells Crenated Cell Elliptocytes Acanthocytes (Spur) Rouleaux Hemoglobin C Crystals Schistocytes Malaria parasites Barry Bodies Hem Pathologist Commnt PT INR APTT POC ABG pH 7.379 POC ABG pCO2 34.5 L POC ABG pO2 89 POC ABG HCO3 20.4 POC ABG Total CO2 21 POC ABG O2 Sat 97 POC ABG Base Excess -5 FiO2 21 Sodium Potassium Chloride Carbon Dioxide Anion Gap BUN Creatinine Estimated GFR BUN/Creatinine Ratio Glucose Calcium NT-Pro-B Natriuret Pep Urine Color Straw Urine Turbidity Clear Urine pH 6.0 Ur Specific [place] 1.025 Urine Protein <15 mg/dl Urine Glucose (UA) >=500 Urine Ketones Neg Urine Blood Neg Urine Nitrite Neg Urine Bilirubin Neg Urine Urobilinogen < 2.0 Ur Leukocyte Esterase Tr Urine WBC (Auto) 4.0 Urine RBC (Auto) 1.0 U Epithel Cells (Auto) < 1.0 Blood Type O POSITIVE Antibody Screen Negative Crossmatch See Detail 07/25/17 07/25/17 12:20 13:50 WBC RBC Hgb 11.8 D Hct 35.7 D MCV MCH MCHC RDW Plt Count Add Manual Diff Total Counted Seg Neuts % (Manual) Band Neutrophils % Lymphocytes % (Manual) Reactive Lymphs % (Man) Monocytes % (Manual) Eosinophils % (Manual) Basophils % (Manual) Metamyelocytes % Myelocytes % Promyelocytes % Blast Cells % Nucleated RBC % Seg Neutrophils # Man Band Neutrophils # Lymphocytes # (Manual) Abs React Lymphs (Man) Monocytes # (Manual) Eosinophils # (Manual) Basophils # (Manual) Metamyelocytes # Myelocytes # Promyelocytes # Blast Cells # WBC Morphology Hypersegmented Neuts Hyposegmented Neuts Hypogranular Neuts Smudge Cells Toxic Granulation Toxic Vacuolation Dohle Bodies Pelger-Huet Anomaly Susan Rods Platelet Estimate Clumped Platelets Plt Clumps, EDTA Large Platelets Giant Platelets Platelet Satelliting Plt Morphology Comment RBC Morphology Dimorphic RBCs Polychromasia Hypochromasia Poikilocytosis Anisocytosis Microcytosis Macrocytosis Spherocytes Pappenheimer Bodies Sickle Cells Target Cells Tear Drop Cells Ovalocytes Helmet Cells [place] Bodies [place] Rings Aileen Cells Bite Cells Crenated Cell Elliptocytes Acanthocytes (Spur) Rouleaux Hemoglobin C Crystals Schistocytes Malaria parasites Barry Bodies Hem Pathologist Commnt PT 12.8 INR 0.92 APTT 20.0 L POC ABG pH POC ABG pCO2 POC ABG pO2 POC ABG HCO3 POC ABG Total CO2 POC ABG O2 Sat POC ABG Base Excess FiO2 Sodium Potassium Chloride Carbon Dioxide Anion Gap BUN Creatinine Estimated GFR BUN/Creatinine Ratio Glucose Calcium NT-Pro-B Natriuret Pep Urine Color Urine Turbidity Urine pH Ur Specific [place] Urine Protein Urine Glucose (UA) Urine Ketones Urine Blood Urine Nitrite Urine Bilirubin Urine Urobilinogen Ur Leukocyte Esterase Urine WBC (Auto) Urine RBC (Auto) U Epithel Cells (Auto) Blood Type Antibody Screen Crossmatch Assessment and Plan - Patient Problems (1) Acute blood loss anemia Current Visit: Yes Status: Acute Plan to address problem: - Baseline hgb is 9-11 so fairly significant drop. - Given lack of NSAIDs, and ?new? rectovaginal fistula, the patient will need EGD and colonoscopy. - Will give clears today and tomorrow, and prep tomorrow night; plan double procedure on Wednesday. - Continue current HIV/asthma/psych/seizure meds
[2017-07-25] MEDS: BROVANA NEBU IH SCH ×2 (20:43→20:54)
[2017-07-25] MEDS: PULMICORT IH SCH (20:55)
--- NOTE | 2017-07-25 22:20 | Consultation ---
History of Present Illness Reason for consult: dyspnea, cough History of present illness: This is a pt with a hx of copd not been seen by pulm who comes in with a 2 week hx of sob and cough. These symptoms got worse and came to er evaluation. She reports that she has not been very compliant with meds. She came to er for evaluation and recd neb tx with some improvement. She reports that she is still sob and has wheezing. She also has had some dark stool. She has a hx of ulcers Past History Past Medical History: COPD (AIDSAIDS), diabetes, HIV/AIDS (CD4 > 1000 this year , but VL (+)), hypertension, hyperlipidemia, seizures, other (AIDS) Past Surgical History: hysterectomy Social history: full code. denies: smoking, alcohol abuse, prescription drug abuse, IV drug use Family history: cancer (Mother) Medications and Allergies Allergies Allergy/AdvReac Type Severity Reaction Status Date / Time shellfish derived Allergy Severe Shortness Verified 06/04/17 11:05 of Breath ibuprofen [From Motrin] Allergy Mild Shortness Verified 06/04/17 11:05 of Breath tetracycline Allergy Shortness Verified 06/04/17 11:05 of Breath Home Medications Medication Instructions Recorded Confirmed Last Taken Type Miconazole 2% [Monistat 7 Vag 1 applicator VG QHS #1 tube 02/21/17 06/05/17 2 Days Ago Rx Cream] ~05/08/17 ALBUTEROL Inhaler [ProAir HFA 2 puff IH QID PRN #2 inhalation 03/13/17 06/05/17 2 Days Ago Rx Inhaler] ~05/08/17 Phenytoin (25 mg/ml) [Dilantin] 300 mg PO QHS #30 oral.liqd 03/23/17 06/05/17 2 Days Ago Rx ~05/08/17 Benzonatate [Tessalon Perles] 100 mg PO Q8HR #30 capsule 04/22/17 06/05/17 2 Days Ago Rx ~05/08/17 Emtricitabine/Tenofovir (Tdf) 2 each PO DAILY #60 tablet 04/22/17 06/05/17 2 Days Ago Rx [Truvada 100 mg-150 mg Tablet] ~05/08/17 Raltegravir Potassium [Isentress] 400 mg PO BID #60 tablet 08/31/17 10/14/17 2 Days Ago Rx ~05/08/17 Sulfamethoxazole/Trimethoprim 1 each PO Q12HR #14 tablet 04/22/17 06/05/17 2 Days Ago Rx [Bactrim DS TAB] ~05/08/17 amLODIPine [Norvasc] 5 mg PO QDAY #30 tablet 04/22/17 06/05/17 2 Days Ago Rx ~05/08/17 Arformoterol Nebu [Brovana Nebu] 15 mcg IH Q12HRT ml 05/12/17 06/05/17 Unknown Rx Tenofovir [Viread] 300 mg PO QDAY tablet 05/12/17 06/05/17 Unknown Rx Azithromycin [Zithromax Z-LUAN] 250 mg PO DAILY #30 tablet 06/18/17 Unknown Rx Budesonide [Pulmicort Respules] 0.25 mg IH Q12HRT #60 nebu 06/18/17 Unknown Rx Furosemide [Lasix TAB] 40 mg PO QDAY #30 tablet 06/18/17 Unknown Rx Insulin Detemir [Levemir] 15 units SUB-Q QHS #1 vial 06/18/17 Unknown Rx Ipratropium/Albuterol Sulfate 1 ampul IH TIDRT #100 ampul.neb 06/18/17 Unknown Rx [DUONEB *Not for PRN Use*] Prednisone [predniSONE 10 mg 10 mg PO .TAPER #1 tab.ds.pk 06/18/17 Unknown Rx (6-Day Pack, 21 Tabs)] QUEtiapine [SEROquel] 200 mg PO QHS #30 tablet 06/18/17 Unknown Rx Tenofovir [Viread] 300 mg PO QDAY tablet 06/18/17 Unknown Rx Tiotropium [place] [Spiriva 4 gm IH DAILY #1 mist.inhal 06/18/17 Unknown Rx Respimat] Zolpidem [Ambien] 5 mg PO QHS PRN #10 tablet 06/18/17 Unknown Rx oxyCODONE /ACETAMINOPHEN [Percocet 2 tab PO Q6H PRN #30 tablet 06/18/17 Unknown Rx 5/325 mg] predniSONE [Deltasone] 10 mg PO QDAY #40 tablet 06/18/17 Unknown Rx Active Meds: Active Medications Albuterol (Proventil) 2.5 mg IH QIDRT PRN PRN Reason: Shortness Of Breath Albuterol/Ipratropium (Duoneb *Not For Prn Use*) 1 ampul IH TIDRT [facility] Last Admin: 07/25/17 20:56 Dose: 1 ampul Amlodipine Besylate (Norvasc) 5 mg PO QDAY [facility] Arformoterol Tartrate (Brovana Nebu) 15 mcg IH Q12HRT [facility] Last Admin: 07/25/17 20:54 Dose: Not Given Azithromycin (Zithromax) 500 mg PO Q24H [facility] Last Admin: 07/25/17 14:07 Dose: 500 mg Benzonatate (Tessalon Perles) 100 mg PO Q8HR [facility] Last Admin: 07/25/17 14:52 Dose: 100 mg Budesonide (Pulmicort) 0.25 mg IH Q12HRT [facility] Last Admin: 07/25/17 20:55 Dose: Not Given Furosemide (Lasix) 40 mg PO QDAY [facility] Insulin Detemir (Levemir) 15 units SUB-Q QHS [facility] Methylprednisolone Sodium Succinate (Solu-Medrol) 60 mg IV Q8H [facility] Last Admin: 07/25/17 12:55 Dose: 60 mg Miconazole Nitrate (Monistat) 1 applicator VG QHS [facility] Miscellaneous Medication (Emtricitabine/Tenofovir (Tdf) [Truvada 100 Mg-150 Mg Tablet]) 2 each PO DAILY [facility] Oxycodone/Acetaminophen (Percocet 5/325) 2 tab PO Q6H PRN PRN Reason: Pain, Moderate (4-6) Last Admin: 07/25/17 13:10 Dose: 2 tab Pantoprazole Sodium (Protonix) 40 mg PO QDAY [facility] Phenytoin (Dilantin) 300 mg PO QHS [facility] Pseudoephedrine/Acetam/Chlorphenir (Robitussin Ac) 10 ml PO Q4H PRN PRN Reason: Cough Quetiapine Fumarate (Seroquel) 200 mg PO QHS [facility] Raltegravir (Isentress) 400 mg PO BID [facility] Trimethoprim/Sulfamethoxazole (Bactrim Ds) 1 each PO Q12HR [facility] Review of Systems Constitutional: weakness, chronic pain Ears, nose, mouth and throat: nasal congestion, nasal discharge, post-nasal drip Breasts: deferred Respiratory: cough with sputum, congestion, wheezing Physical Examination Vital signs: Vital Signs Temp Pulse Resp BP Pulse Ox 98.6 F 98 H 20 136/86 96 07/25/17 07:26 07/25/17 07:26 07/25/17 07:26 07/25/17 07:26 07/25/17 07:26 General appearance: alert, other (mild distress) ENT: oropharynx moist Neck: supple Ascultation: Bilateral: wheezes Cardiovascular: regular rate and rhythm Gastrointestinal: normoactive bowel sounds, soft, non-tender Extremities: no cyanosis normal mental status mood appropriate Results - Laboratory Findings CBC and BMP: 07/25/17 13:50 07/25/17 07:33 ABG POC ABG pH 7.379 (7.35-7.45) 07/25/17 08:34 POC ABG pCO2 34.5 (35-45) L 07/25/17 08:34 POC ABG pO2 89 (80-105) 07/25/17 08:34 POC ABG HCO3 20.4 07/25/17 08:34 POC ABG Total CO2 21 07/25/17 08:34 POC ABG O2 Sat 97 07/25/17 08:34 PT/INR, D-dimer PT 12.8 Sec. (12.2-14.9) 07/25/17 12:20 INR 0.92 (0.87-1.13) 07/25/17 12:20 Abnormal lab findings: Abnormal Labs 07/25/17 07/25/17 07/25/17 07:33 08:34 12:20 RBC 3.53 L Hgb 7.5 L Hct 25.2 L MCV 71 L MCH 21 L RDW 21.1 H Seg Neuts % (Manual) 75.0 H Lymphocytes # (Manual) 0.9 L APTT POC ABG pCO2 34.5 L POC Glucose Crossmatch See Detail 07/25/17 07/25/17 12:20 20:51 RBC Hgb Hct MCV MCH RDW Seg Neuts % (Manual) Lymphocytes # (Manual) APTT 20.0 L POC ABG pCO2 POC Glucose 485 H Crossmatch - Diagnostic Findings Chest x-ray: report reviewed, image reviewed Assessment and Plan - Patient Problems (1) Acute blood loss anemia Current Visit: Yes Status: Acute (2) Acute exacerbation of chronic obstructive pulmonary disease (COPD) Current Visit: Yes Status: Acute (3) Acute upper gastrointestinal bleeding Current Visit: Yes Status: Acute (4) Anemia requiring transfusions Current Visit: Yes Status: Acute (5) Severe anemia Current Visit: Yes Status: Acute (6) Acute respiratory failure Current Visit: No Status: Acute (7) Bronchitis Current Visit: No Status: Acute (8) Bronchospasm Current Visit: No Status: Acute (9) COPD exacerbation Current Visit: No Status: Acute
[2017-07-25] MEDS: BACTRIM DS PO SCH (22:32)
[2017-07-25] MEDS: LEVEMIR SUB-Q SCH (22:32)
[2017-07-25] MEDS: DILANTIN PO SCH (22:32)
[2017-07-25] MEDS: ISENTRESS PO SCH (22:32)
[2017-07-25] MEDS: MONISTAT VG SCH (22:33)
[2017-07-26] MEDS: TESSALON PERLES PO SCH ×3 (06:20→22:28)
[2017-07-26 06:23] LABS: Basophils % (Auto) 0.7 % (0.0-1.8); Hematocrit 38.1 % (30.3-42.9); Hemoglobin 12.4 gm/dl (10.1-14.3); Mean Corpuscular HGB Conc 33 % (30-34); Mean Corpuscular Hemoglobin 31 pg (28-32); Mean Corpuscular Volume 95 fl (79-97); Platelet Count 192 K/mm3 (140-440); Red Blood Count 4.02 M/mm3 (3.65-5.03); Red Cell Distribution Width 17.6 % (13.2-15.2); White Blood Count 7.4 K/mm3 (4.5-11.0)
[2017-07-26 06:44] LABS: Anion Gap 18 mmol/L; BUN/Creatinine Ratio 23; Blood Urea Nitrogen 18 mg/dL (7-17); Calcium 8.9 mg/dL (8.4-10.2); Carbon Dioxide 24 mmol/L (22-30); Glucose 367 mg/dL (65-100); Sodium 136 mmol/L (137-145)
[2017-07-26 06:48] LABS: Potassium 5.2 mmol/L (3.6-5.0)
[2017-07-26] MEDS: DUONEB *Not for PRN Use IH SCH ×3 (08:42→21:07)
[2017-07-26] MEDS: BROVANA NEBU IH SCH ×2 (08:42→21:05)
[2017-07-26] MEDS: PULMICORT IH SCH ×2 (08:50→21:05)
[2017-07-26] MEDS: ISENTRESS PO SCH ×2 (09:31→22:27)
[2017-07-26] MEDS: PERCOCET 5/325 PO PRN ×3 (09:31→22:28)
[2017-07-26] MEDS: BACTRIM DS PO SCH ×2 (09:32→22:27)
[2017-07-26] MEDS: NORVASC PO SCH (09:32)
[2017-07-26] MEDS: LASIX PO SCH (09:33)
[2017-07-26] MEDS: PROTONIX PO SCH (09:33)
--- NOTE | 2017-07-26 10:06 | Progress Note ---
Assessment and Plan Assessment and plan: 61-year-old -[place] female with past medical history significant for COPD, AIDS, diabetes mellitus type 2, congestive heart failure, seizure presented to the emergency department complaining of; she couldn't breath for the last 4 days despite using her rescue inhaler. Patient showed associated cough productive of yellowish sputum for the last 3-4 days, fever, chills. Patient is complaining that she has been distended on this very for the last 3 days, sharp, constant, with radiation to both arms, associated with diaphoresis and shortness of breath. Patient subsequently complaining that she had dark stools for the last 4 days but denied any abdominal pain, use of NSAIDs. Patient has been admitted many times for COPD exacerbation. Anemia secondary to Upper GI bleed - Her hemoglobin now12.4 s/p transfusion will monitor H&H - - GI following, colonoscopy, EGD tomorrow COPD exacerbation - Is being managed with IV Solu-Medrol, IV antibiotic, nebulizer, oxygen support -Pulm following HIV Continue current regimen Chronic CHF IV lasix Seizure No home meds Diabetes mellitus type 2 with hyperglycemia - Sliding scale insulin and basal insulin - Accu-Chek, ADA diet Will continue medications DVT prophylaxis - SCDs because of GI bleed History Interval history: Patient is alert sitting in bed. Denies CP SOB N/V Hospitalist Physical - Constitutional Vitals: Temp Pulse Resp BP Pulse Ox 98.7 F 68 20 137/84 99 07/26/17 08:31 07/26/17 09:32 07/26/17 09:31 07/26/17 09:32 07/26/17 08:31 General appearance: Present: no acute distress - EENT Eyes: Present: PERRL, EOM intact, irregular pupil ENT: clear oral mucosa - Neck Neck: Present: supple, normal ROM - Respiratory Respiratory effort: normal Respiratory: bilateral: wheezing - Cardiovascular Rhythm: regular Heart Sounds: Present: S1 & S2 - Extremities Extremities: no ischemia, No edema Peripheral Pulses: within normal limits - Abdominal General gastrointestinal: soft, non-tender - Integumentary Integumentary: Present: clear, warm, dry - Psychiatric Psychiatric: appropriate mood/affect, cooperative - Neurologic Neurologic: CNII-XII intact, moves all extremities - Allied Health Allied health notes reviewed: nursing Results - Labs CBC & Chem 7: 07/26/17 04:00 12/04/17 04:00 Labs: Laboratory Last Values WBC 7.4 K/mm3 (4.5-11.0) 07/26/17 04:00 RBC 4.02 M/mm3 (3.65-5.03) 07/26/17 04:00 Hgb 12.4 gm/dl (10.1-14.3) 07/26/17 04:00 Hct 38.1 % (30.3-42.9) 07/26/17 04:00 MCV 95 fl (79-97) 07/26/17 04:00 MCH 31 pg (28-32) 07/26/17 04:00 MCHC 33 % (30-34) 07/26/17 04:00 RDW 17.6 % (13.2-15.2) H 07/26/17 04:00 Plt Count 192 K/mm3 (140-440) 07/26/17 04:00 Lymph % (Auto) 21.8 % (13.4-35.0) 07/26/17 04:00 [place] % (Auto) 6.8 % (0.0-7.3) 07/26/17 04:00 Eos % (Auto) 0.0 % (0.0-4.3) 07/26/17 04:00 Baso % (Auto) 0.7 % (0.0-1.8) 07/26/17 04:00 Lymph # 1.6 K/mm3 (1.2-5.4) 07/26/17 04:00 [place] # 0.5 K/mm3 (0.0-0.8) 07/26/17 04:00 Eos # 0.0 K/mm3 (0.0-0.4) 07/26/17 04:00 Baso # 0.1 K/mm3 (0.0-0.1) 07/26/17 04:00 Add Manual Diff Complete 07/25/17 07:33 Total Counted 100 07/25/17 07:33 Seg Neutrophils % 70.7 % (40.0-70.0) H 07/26/17 04:00 Seg Neuts % (Manual) 75.0 % (40.0-70.0) H 07/25/17 07:33 Band Neutrophils % 0 % 07/25/17 07:33 Lymphocytes % (Manual) 20.0 % (13.4-35.0) 07/25/17 07:33 Reactive Lymphs % (Man) 1.0 % 07/25/17 07:33 Monocytes % (Manual) 1.0 % (0.0-7.3) 07/25/17 07:33 Eosinophils % (Manual) 0 % (0.0-4.3) 07/25/17 07:33 Basophils % (Manual) 0 % (0.0-1.8) 07/25/17 07:33 Metamyelocytes % 3.0 % 07/25/17 07:33 Myelocytes % 0 % 07/25/17 07:33 Promyelocytes % 0 % 07/25/17 07:33 Blast Cells % 0 % 07/25/17 07:33 Nucleated RBC % Not Reportable 07/25/17 07:33 Seg Neutrophils # 5.3 K/mm3 (1.8-7.7) 07/26/17 04:00 Seg Neutrophils # Man 3.5 K/mm3 (1.8-7.7) 07/25/17 07:33 Band Neutrophils # 0.0 K/mm3 07/25/17 07:33 Lymphocytes # (Manual) 0.9 K/mm3 (1.2-5.4) L 07/25/17 07:33 Abs React Lymphs (Man) 0.0 K/mm3 07/25/17 07:33 Monocytes # (Manual) 0.0 K/mm3 (0.0-0.8) 07/25/17 07:33 Eosinophils # (Manual) 0.0 K/mm3 (0.0-0.4) 07/25/17 07:33 Basophils # (Manual) 0.0 K/mm3 (0.0-0.1) 07/25/17 07:33 Metamyelocytes # 0.1 K/mm3 07/25/17 07:33 Myelocytes # 0.0 K/mm3 07/25/17 07:33 Promyelocytes # 0.0 K/mm3 07/25/17 07:33 Blast Cells # 0.0 K/mm3 07/25/17 07:33 WBC Morphology Not Reportable 07/25/17 07:33 Hypersegmented Neuts Not Reportable 07/25/17 07:33 Hyposegmented Neuts Not Reportable 07/25/17 07:33 Hypogranular Neuts Not Reportable 07/25/17 07:33 Smudge Cells Not Reportable 07/25/17 07:33 Toxic Granulation Not Reportable 07/25/17 07:33 Toxic Vacuolation Not Reportable 07/25/17 07:33 Dohle Bodies Not Reportable 07/25/17 07:33 Pelger-Huet Anomaly Not Reportable 07/25/17 07:33 Susan Rods Not Reportable 07/25/17 07:33 Platelet Estimate Appears normal 07/25/17 07:33 Clumped Platelets Not Reportable 07/25/17 07:33 Plt Clumps, EDTA Not Reportable 07/25/17 07:33 Large Platelets Not Reportable 07/25/17 07:33 Giant Platelets Not Reportable 07/25/17 07:33 Platelet Satelliting Not Reportable 07/25/17 07:33 Plt Morphology Comment Not Reportable 07/25/17 07:33 RBC Morphology Not Reportable 07/25/17 07:33 Dimorphic RBCs Not Reportable 07/25/17 07:33 Polychromasia Not Reportable 07/25/17 07:33 Hypochromasia 2+ 07/25/17 07:33 Poikilocytosis Not Reportable 07/25/17 07:33 Anisocytosis 1+ 07/25/17 07:33 Microcytosis Not Reportable 07/25/17 07:33 Macrocytosis Not Reportable 07/25/17 07:33 Spherocytes Not Reportable 07/25/17 07:33 Pappenheimer Bodies Not Reportable 07/25/17 07:33 Sickle Cells Not Reportable 07/25/17 07:33 Target Cells Not Reportable 07/25/17 07:33 Tear Drop Cells Few 07/25/17 07:33 Ovalocytes Not Reportable 07/25/17 07:33 Helmet Cells Not Reportable 07/25/17 07:33 [place] Bodies Not Reportable 07/25/17 07:33 R[place]el Rings Not Reportable 07/25/17 07:33 [place] Cells Not Reportable 07/25/17 07:33 Bite Cells Not Reportable 07/25/17 07:33 Crenated Cell Not Reportable 07/25/17 07:33 Elliptocytes Not Reportable 07/25/17 07:33 Acanthocytes (Spur) Not Reportable 07/25/17 07:33 Rouleaux Not Reportable 07/25/17 07:33 Hemoglobin C Crystals Not Reportable 07/25/17 07:33 Schistocytes Not Reportable 07/25/17 07:33 Malaria parasites Not Reportable 07/25/17 07:33 Barry Bodies Not Reportable 07/25/17 07:33 Hem Pathologist Commnt No 07/25/17 07:33 PT 12.8 Sec. (12.2-14.9) 07/25/17 12:20 INR 0.92 (0.87-1.13) 07/25/17 12:20 APTT 20.0 Sec. (24.2-36.6) L 07/25/17 12:20 POC ABG pH 7.379 (7.35-7.45) 07/25/17 08:34 POC ABG pCO2 34.5 (35-45) L 07/25/17 08:34 POC ABG pO2 89 (80-105) 07/25/17 08:34 POC ABG HCO3 20.4 07/25/17 08:34 POC ABG Total CO2 21 07/25/17 08:34 POC ABG O2 Sat 97 07/25/17 08:34 POC ABG Base Excess -5 07/25/17 08:34 FiO2 21 % 07/25/17 08:34 Sodium 136 mmol/L (137-145) L 07/26/17 04:00 Potassium 5.2 mmol/L (3.6-5.0) H D 07/26/17 04:00 Chloride 99.0 mmol/L (98-107) 07/26/17 04:00 Carbon Dioxide 24 mmol/L (22-30) 07/26/17 04:00 Anion Gap 18 mmol/L 07/26/17 04:00 BUN 18 mg/dL (7-17) H 07/26/17 04:00 Creatinine 0.8 mg/dL (0.7-1.2) 07/26/17 04:00 Estimated GFR > 60 ml/min 07/26/17 04:00 BUN/Creatinine Ratio 23 % 07/26/17 04:00 Glucose 367 mg/dL (65-100) H 07/26/17 04:00 POC Glucose 376 (70-105) H 07/26/17 08:35 Calcium 8.9 mg/dL (8.4-10.2) 07/26/17 04:00 NT-Pro-B Natriuret Pep 42.25 pg/mL (0-900) 07/25/17 07:33 Urine Color Straw (Yellow) 07/25/17 09:50 Urine Turbidity Clear (Clear) 07/25/17 09:50 Urine pH 6.0 (5.0-7.0) 07/25/17 09:50 Ur Specific [place] 1.025 (1.003-1.030) 07/25/17 09:50 Urine Protein <15 mg/dl mg/dL (Negative) 07/25/17 09:50 Urine Glucose (UA) >=500 mg/dL (Negative) 07/25/17 09:50 Urine Ketones Neg mg/dL (Negative) 07/25/17 09:50 Urine Blood Neg (Negative) 07/25/17 09:50 Urine Nitrite Neg (Negative) 07/25/17 09:50 Urine Bilirubin Neg (Negative) 07/25/17 09:50 Urine Urobilinogen < 2.0 mg/dL (<2.0) 07/25/17 09:50 Ur Leukocyte Esterase Tr (Negative) 07/25/17 09:50 Urine WBC (Auto) 4.0 /HPF (0.0-6.0) 07/25/17 09:50 Urine RBC (Auto) 1.0 /HPF (0.0-6.0) 07/25/17 09:50 U Epithel Cells (Auto) < 1.0 /HPF (0-13.0) 07/25/17 09:50 Blood Type O POSITIVE 07/25/17 12:20 Antibody Screen Negative 07/25/17 12:20 Crossmatch See Detail 07/25/17 12:20
--- NOTE | 2017-07-26 11:42 | Progress Note ---
Assessment and Plan 61 y/o female with known HIV and COPD/asthma, admitted with flare. 1. Continue steroids at current dosing 2. Agree with BID pulmicort and brovana 3. OOB to chair and ambulate as tolerated 4. Weight loss. Subjective Date of service: 07/26/17 Interval history: Stable on room air. Still complains of chest tightness. Currently on solumedrol q8 Objective Vital Signs - 12hr 07/26/17 07/26/17 07/26/17 00:23 04:48 08:31 Temperature 97.7 F 98.0 F 98.7 F Pulse Rate 80 91 H 82 Pulse Rate [ Posterior Bilateral Throughout] Respiratory 22 20 18 Rate Respiratory Rate [Abdomen] Respiratory Rate [ Generalized] Respiratory Rate [Posterior Bilateral Throughout] Blood Pressure 132/80 107/78 118/83 O2 Sat by Pulse 89 96 99 Oximetry 07/26/17 07/26/17 07/26/17 08:42 09:02 09:31 Temperature Pulse Rate Pulse Rate [ 97 H 103 H Posterior Bilateral Throughout] Respiratory 20 Rate Respiratory Rate [Abdomen] Respiratory Rate [ Generalized] Respiratory 18 18 Rate [Posterior Bilateral Throughout] Blood Pressure O2 Sat by Pulse Oximetry 07/26/17 07/26/17 09:32 10:00 Temperature Pulse Rate 68 Pulse Rate [ Posterior Bilateral Throughout] Respiratory Rate Respiratory 20 Rate [Abdomen] Respiratory 20 Rate [ Generalized] Respiratory Rate [Posterior Bilateral Throughout] Blood Pressure 137/84 O2 Sat by Pulse Oximetry Constitutional: alert, other (mild distress) ENT: oropharynx moist Neck: supple Ascultation: Bilateral: wheezes Cardiovascular: regular rate and rhythm Gastrointestinal: normoactive bowel sounds, soft, non-tender Extremities: no cyanosis Neurologic: normal mental status Psychiatric: mood appropriate CBC and BMP: 07/26/17 04:00 07/26/17 04:00 ABG, PT/INR, D-dimer: ABG POC ABG pH 7.379 (7.35-7.45) 07/25/17 08:34 POC ABG pCO2 34.5 (35-45) L 07/25/17 08:34 POC ABG pO2 89 (80-105) 07/25/17 08:34 POC ABG HCO3 20.4 07/25/17 08:34 POC ABG Total CO2 21 07/25/17 08:34 POC ABG O2 Sat 97 07/25/17 08:34 PT/INR, D-dimer PT 12.8 Sec. (12.2-14.9) 07/25/17 12:20 INR 0.92 (0.87-1.13) 07/25/17 12:20 Abnormal lab findings: Abnormal Labs 07/25/17 07/25/17 07/25/17 07:33 08:34 12:20 RBC 3.53 L Hgb 7.5 L Hct 25.2 L MCV 71 L MCH 21 L RDW 21.1 H Seg Neutrophils % Seg Neuts % (Manual) 75.0 H Lymphocytes # (Manual) 0.9 L APTT POC ABG pCO2 34.5 L Sodium Potassium BUN Glucose POC Glucose Crossmatch See Detail 07/25/17 07/25/17 07/26/17 12:20 20:51 04:00 RBC Hgb Hct MCV MCH RDW 17.6 H Seg Neutrophils % 70.7 H Seg Neuts % (Manual) Lymphocytes # (Manual) APTT 20.0 L POC ABG pCO2 Sodium Potassium BUN Glucose POC Glucose 485 H Crossmatch 07/26/17 07/26/17 04:00 08:35 RBC Hgb Hct MCV MCH RDW Seg Neutrophils % Seg Neuts % (Manual) Lymphocytes # (Manual) APTT POC ABG pCO2 Sodium 136 L Potassium 5.2 H D BUN 18 H Glucose 367 H POC Glucose 376 H Crossmatch
[2017-07-26] MEDS ORDERED: D50W (25GM) Syringe IV PRN (14:29)
[2017-07-26] MEDS: ZOFRAN IV PRN ×2 (15:00→22:26)
[2017-07-26] MEDS: ZITHROMAX PO SCH (15:12)
[2017-07-26] MEDS: NOVOLOG SUB-Q SCH ×2 (17:00→22:29)
[2017-07-26] MEDS ORDERED: GOLYTELY PO ONE (18:28)
--- NOTE | 2017-07-26 20:10 | Gastroenterology Progress Note ---
Assessment and Plan - Patient Problems (1) Acute blood loss anemia Current Visit: Yes Status: Acute Plan to address problem: - Baseline hgb is 9-11 so fairly significant drop. - Given lack of NSAIDs, and ?new? rectovaginal fistula, the patient will need EGD and colonoscopy. - Will give clears today, and prep tonight; plan double procedure on Wednesday. - Continue current HIV/asthma/psych/seizure meds Subjective Date of service: 07/26/17 Principal diagnosis: Anemia Interval history: The patient has had no more dark stools. She has started on her bowel prep for the EGD/Colonoscopy. She tolerated her liquid diet today. She has no CP and her SOB is at her baseline. She is optimized with inhalers as per the Pulmonary service. Objective - Constitutional Vitals: Temp Pulse Resp BP Pulse Ox 98.1 F 84 18 148/94 94 07/26/17 16:24 07/26/17 16:24 07/26/17 16:24 07/26/17 16:24 07/26/17 16:24 General appearance: no acute distress - EENT Eyes: PERRL, EOM intact - Respiratory Respiratory effort: normal Respiratory: bilateral: CTA - Cardiovascular Rhythm: regular Heart Sounds: Present: S1 & S2 - Gastrointestinal General gastrointestinal: Present: soft, non-tender, non-distended - Labs CBC & Chem 7: 07/26/17 04:00 07/26/17 04:00 Labs: Laboratory Results - last 24 hr 07/25/17 07/26/17 07/26/17 20:51 04:00 04:00 WBC 7.4 RBC 4.02 Hgb 12.4 Hct 38.1 MCV 95 MCH 31 MCHC 33 RDW 17.6 H Plt Count 192 Lymph % (Auto) 21.8 [place] % (Auto) 6.8 Eos % (Auto) 0.0 Baso % (Auto) 0.7 Lymph # 1.6 [place] # 0.5 Eos # 0.0 Baso # 0.1 Seg Neutrophils % 70.7 H Seg Neutrophils # 5.3 Sodium 136 L Potassium 5.2 H D Chloride 99.0 Carbon Dioxide 24 Anion Gap 18 BUN 18 H Creatinine 0.8 Estimated GFR > 60 BUN/Creatinine Ratio 23 Glucose 367 H POC Glucose 485 H Calcium 8.9 07/26/17 07/26/17 07/26/17 08:35 11:57 16:31 WBC RBC Hgb Hct MCV MCH MCHC RDW Plt Count Lymph % (Auto) [place] % (Auto) Eos % (Auto) Baso % (Auto) Lymph # [place] # Eos # Baso # Seg Neutrophils % Seg Neutrophils # Sodium Potassium Chloride Carbon Dioxide Anion Gap BUN Creatinine Estimated GFR BUN/Creatinine Ratio Glucose POC Glucose 376 H 418 H 323 H Calcium
[2017-07-26] MEDS: DILANTIN PO SCH ×2 (22:27→22:38)
[2017-07-26] MEDS: LEVEMIR SUB-Q SCH (22:30)
[2017-07-26] MEDS: MONISTAT VG SCH (22:36)
[2017-07-27] MEDS: TESSALON PERLES PO SCH ×3 (06:57→22:27)
[2017-07-27] MEDS: NOVOLOG SUB-Q SCH ×4 (07:30→22:27)
[2017-07-27] MEDS: BROVANA NEBU IH SCH ×2 (09:20→20:22)
[2017-07-27] MEDS: PULMICORT IH SCH ×3 (09:21→20:22)
[2017-07-27] MEDS: DUONEB *Not for PRN Use IH SCH ×4 (09:23→20:22)
[2017-07-27] MEDS: NORVASC PO SCH (09:44)
[2017-07-27] MEDS: ZOFRAN IV PRN ×2 (09:44→20:01)
[2017-07-27] MEDS: ISENTRESS PO SCH ×2 (09:44→22:26)
[2017-07-27] MEDS: BACTRIM DS PO SCH ×2 (09:45→22:26)
[2017-07-27] MEDS: PROTONIX PO SCH (09:45)
[2017-07-27] MEDS: PERCOCET 5/325 PO PRN ×2 (09:45→20:02)
[2017-07-27] MEDS: LASIX PO SCH (09:46)
--- NOTE | 2017-07-27 11:57 | Progress Note ---
Assessment and Plan 61 y/o female with known HIV and COPD/asthma, admitted with flare. 1. Continue steroids but will change to BID. 2. Agree with BID pulmicort and brovana 3. OOB to chair and ambulate as tolerated 4. Weight loss. 5. Follow up EGD/Colon results Subjective Date of service: 07/27/17 Principal diagnosis: Anemia Interval history: patient NPO for colon and EGD to be done sometime today. Breathing is stable. Objective Vital Signs - 12hr 07/26/17 07/27/17 07/27/17 23:59 00:00 03:52 Temperature 97.6 F Pulse Rate 90 98 H 81 Respiratory 20 Rate Blood Pressure 129/99 126/72 O2 Sat by Pulse 98 98 97 Oximetry 07/27/17 07/27/17 04:12 08:31 Temperature 98.3 F 98.2 F Pulse Rate 76 Respiratory 20 18 Rate Blood Pressure 141/87 O2 Sat by Pulse 98 Oximetry Constitutional: alert, other (mild distress) ENT: oropharynx moist Neck: supple Ascultation: Bilateral: wheezes Cardiovascular: regular rate and rhythm Gastrointestinal: normoactive bowel sounds, soft, non-tender Extremities: no cyanosis Neurologic: normal mental status Psychiatric: mood appropriate CBC and BMP: 07/26/17 04:00 07/26/17 04:00 ABG, PT/INR, D-dimer: ABG POC ABG pH 7.379 (7.35-7.45) 07/25/17 08:34 POC ABG pCO2 34.5 (35-45) L 07/25/17 08:34 POC ABG pO2 89 (80-105) 07/25/17 08:34 POC ABG HCO3 20.4 07/25/17 08:34 POC ABG Total CO2 21 07/25/17 08:34 POC ABG O2 Sat 97 07/25/17 08:34 PT/INR, D-dimer PT 12.8 Sec. (12.2-14.9) 07/25/17 12:20 INR 0.92 (0.87-1.13) 07/25/17 12:20 Abnormal lab findings: Abnormal Labs 07/25/17 07/25/17 07/25/17 07:33 08:34 12:20 RBC 3.53 L Hgb 7.5 L Hct 25.2 L MCV 71 L MCH 21 L RDW 21.1 H Seg Neutrophils % Seg Neuts % (Manual) 75.0 H Lymphocytes # (Manual) 0.9 L APTT POC ABG pCO2 34.5 L Sodium Potassium BUN Glucose POC Glucose Crossmatch See Detail 07/25/17 07/25/17 07/26/17 12:20 20:51 04:00 RBC Hgb Hct MCV MCH RDW 17.6 H Seg Neutrophils % 70.7 H Seg Neuts % (Manual) Lymphocytes # (Manual) APTT 20.0 L POC ABG pCO2 Sodium Potassium BUN Glucose POC Glucose 485 H Crossmatch 07/26/17 07/26/17 07/26/17 04:00 08:35 11:57 RBC Hgb Hct MCV MCH RDW Seg Neutrophils % Seg Neuts % (Manual) Lymphocytes # (Manual) APTT POC ABG pCO2 Sodium 136 L Potassium 5.2 H D BUN 18 H Glucose 367 H POC Glucose 376 H 418 H Crossmatch 07/26/17 07/26/17 07/27/17 16:31 21:37 08:38 RBC Hgb Hct MCV MCH RDW Seg Neutrophils % Seg Neuts % (Manual) Lymphocytes # (Manual) APTT POC ABG pCO2 Sodium Potassium BUN Glucose POC Glucose 323 H 333 H 310 H Crossmatch
[2017-07-27] MEDS ORDERED: WATER FOR IRRIG STERILE IR ONE (13:23)
[2017-07-27] MEDS ORDERED: WATER FOR IRRIG STERILE ONE (13:23)
--- NOTE | 2017-07-27 14:06 | Anesthesia Consultation ---
Anesthesia Consult and Med Hx Date of service: 07/27/17 - Airway Anesthetic Teeth Evaluation: Good ROM Head & Neck: Adequate Mental/Hyoid Distance: Adequate Mallampati Class: Class II Intubation Access Assessment: Probably Good - Pulmonary Exam CTA: Yes - Cardiac Exam Cardiac Exam: RRR - Pre-Operative Health Status ASA Pre-Surgery Classification: ASA3 Proposed Anesthetic Plan: MAC - Pulmonary Hx Smoking: No Hx Asthma: Yes SOB: No COPD: Yes Hx Pneumonia: No - Cardiovascular System Hx Hypertension: Yes Hx Coronary Artery Disease: No Hx Angina: No Hx Percutaneous Transluminal Coronary Angioplasty (PTCA): No Hx Pacemaker: No Hx Valvular Heart Disease: No Hx Heart Murmur: No Hx Peripheral Vascular Disease: No - Central Nervous System Hx Seizures: Yes Hx Back Pain: No Hx Psychiatric Problems: Yes - Gastrointestinal Hx Ulcer: No - Endocrine Hx End Stage Renal Disease: No Hx Cirrhosis: No Hx Insulin Dependent Diabetes: Yes Hx Hypothyroidism: No Hx Hyperthyroidism: No - Hematic Hx Anemia: No - Other Systems Hx Alcohol Use: No Hx Substance Use: No Hx Cancer: No Hx Obesity: Yes - Additional Comments Anesthesia Medical History Comments: HIV+
--- NOTE | 2017-07-27 14:08 | Anesthesia Day of Surgery ---
Anesthesia Day of Surgery - Day of Surgery Patient Examined: Yes Patient H&P Reviewed: Yes Patient is NPO: Yes
[2017-07-27] MEDS ORDERED: DIPRIVAN 10 MG/ML IV ONE ×3 (16:43)
--- NOTE | 2017-07-27 17:15 | Post Operative Note ---
Pre-op diagnosis: Anemia Post-op diagnosis: other (Gastritis, Lizeth, Gill Vee tear, Poor prep, no RV fistula seen) Findings: 1. Mild antral gastritis, cold bx 2. Small hiatal hernia 3. Gill Vee tear at GE junction, Grade I (low risk to rebleed) 4. Mild lizeth esophagitis. 5. Poor prep in the colon (moderate amount of semi-solid stool, but no blood) 6. IH, Grade II 7. No obvious RV fistula seen in the rectum, but tissue holguin were lax Procedure: EGD with cold biopsy; Colonoscopy Anesthesia: MAC Surgeon: CHRIS SINCLAIR Estimated blood loss: minimal Pathology: list (1. gastric antrum) Specimen disposition: to lab Condition: stable Disposition: floor (Recs: 1. No gross bleeding, but Gill Vee tear explains hematemesis at home. 2. Continue daily protonix. 3. OK to resume regular diet and d/c home. 4. F/U with surgery for possible rectovaginal fistula. 5. Will sign off; please call as neeeded.)
--- NOTE | 2017-07-27 17:34 | Progress Note ---
Assessment and Plan Assessment and plan: Anemia secondary to Upper GI bleed - Hemoglobin is currently stable - GI consulted and did EGD and colonoscopy, EGD showed mild esophageal candidiasis and I put her on fluconazole, colonoscopy poor prep COPD exacerbation - Is being managed with IV Solu-Medrol, IV antibiotic, nebulizer, oxygen support HIV Chronic CHF Seizure Diabetes mellitus type 2 with hyperglycemia - Sliding scale insulin and basal insulin - Accu-Chek, ADA diet Will continue medications DVT prophylaxis - SCDs because of GI bleed Disposition -Continue inpatient care History Interval history: Patient was seen and evaluated this morning, shortness of breath is getting better. She didn't have dark stool overnight. Hospitalist Physical - Physical exam Narrative exam: Not in cardiopulmonary distress. The patient is obese. Vital signs as documented. Head exam is unremarkable. No scleral icterus . Neck is without jugular venous distension, thyromegaly, or carotid bruits. Lungs wheezing all over the chest. Cardiac exam reveals regular rate and Rhythm. First and second heart sounds normal. No murmurs, rubs or gallops. Abdominal exam reveals normal bowel sounds, no masses, no organomegaly and no aortic enlargement. Extremities are nonedematous and both femoral and pedal pulses are normal. 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 No focal weakness. - Constitutional Vitals: Temp Pulse Resp BP Pulse Ox 98.4 F 79 10 L 138/94 97 07/27/17 14:03 07/27/17 14:03 07/27/17 14:03 07/27/17 14:03 07/27/17 14:03 General appearance: Present: no acute distress Results - Labs CBC & Chem 7: 07/26/17 04:00 07/26/17 04:00 Labs: Laboratory Last Values WBC 7.4 K/mm3 (4.5-11.0) 07/26/17 04:00 RBC 4.02 M/mm3 (3.65-5.03) 07/26/17 04:00 Hgb 12.4 gm/dl (10.1-14.3) 07/26/17 04:00 Hct 38.1 % (30.3-42.9) 07/26/17 04:00 MCV 95 fl (79-97) 07/26/17 04:00 MCH 31 pg (28-32) 07/26/17 04:00 MCHC 33 % (30-34) 07/26/17 04:00 RDW 17.6 % (13.2-15.2) H 07/26/17 04:00 Plt Count 192 K/mm3 (140-440) 07/26/17 04:00 Lymph % (Auto) 21.8 % (13.4-35.0) 07/26/17 04:00 [place] % (Auto) 6.8 % (0.0-7.3) 07/26/17 04:00 Eos % (Auto) 0.0 % (0.0-4.3) 07/26/17 04:00 Baso % (Auto) 0.7 % (0.0-1.8) 07/26/17 04:00 Lymph # 1.6 K/mm3 (1.2-5.4) 07/26/17 04:00 [place] # 0.5 K/mm3 (0.0-0.8) 07/26/17 04:00 Eos # 0.0 K/mm3 (0.0-0.4) 07/26/17 04:00 Baso # 0.1 K/mm3 (0.0-0.1) 07/26/17 04:00 Add Manual Diff Complete 07/25/17 07:33 Total Counted 100 07/25/17 07:33 Seg Neutrophils % 70.7 % (40.0-70.0) H 07/26/17 04:00 Seg Neuts % (Manual) 75.0 % (40.0-70.0) H 07/25/17 07:33 Band Neutrophils % 0 % 07/25/17 07:33 Lymphocytes % (Manual) 20.0 % (13.4-35.0) 07/25/17 07:33 Reactive Lymphs % (Man) 1.0 % 07/25/17 07:33 Monocytes % (Manual) 1.0 % (0.0-7.3) 07/25/17 07:33 Eosinophils % (Manual) 0 % (0.0-4.3) 07/25/17 07:33 Basophils % (Manual) 0 % (0.0-1.8) 07/25/17 07:33 Metamyelocytes % 3.0 % 07/25/17 07:33 Myelocytes % 0 % 07/25/17 07:33 Promyelocytes % 0 % 07/25/17 07:33 Blast Cells % 0 % 07/25/17 07:33 Nucleated RBC % Not Reportable 07/25/17 07:33 Seg Neutrophils # 5.3 K/mm3 (1.8-7.7) 07/26/17 04:00 Seg Neutrophils # Man 3.5 K/mm3 (1.8-7.7) 07/25/17 07:33 Band Neutrophils # 0.0 K/mm3 07/25/17 07:33 Lymphocytes # (Manual) 0.9 K/mm3 (1.2-5.4) L 07/25/17 07:33 Abs React Lymphs (Man) 0.0 K/mm3 07/25/17 07:33 Monocytes # (Manual) 0.0 K/mm3 (0.0-0.8) 07/25/17 07:33 Eosinophils # (Manual) 0.0 K/mm3 (0.0-0.4) 07/25/17 07:33 Basophils # (Manual) 0.0 K/mm3 (0.0-0.1) 07/25/17 07:33 Metamyelocytes # 0.1 K/mm3 07/25/17 07:33 Myelocytes # 0.0 K/mm3 07/25/17 07:33 Promyelocytes # 0.0 K/mm3 07/25/17 07:33 Blast Cells # 0.0 K/mm3 07/25/17 07:33 WBC Morphology Not Reportable 07/25/17 07:33 Hypersegmented Neuts Not Reportable 07/25/17 07:33 Hyposegmented Neuts Not Reportable 07/25/17 07:33 Hypogranular Neuts Not Reportable 07/25/17 07:33 Smudge Cells Not Reportable 07/25/17 07:33 Toxic Granulation Not Reportable 07/25/17 07:33 Toxic Vacuolation Not Reportable 07/25/17 07:33 Dohle Bodies Not Reportable 07/25/17 07:33 Pelger-Huet Anomaly Not Reportable 07/25/17 07:33 Susan Rods Not Reportable 07/25/17 07:33 Platelet Estimate Appears normal 07/25/17 07:33 Clumped Platelets Not Reportable 07/25/17 07:33 Plt Clumps, EDTA Not Reportable 07/25/17 07:33 Large Platelets Not Reportable 07/25/17 07:33 Giant Platelets Not Reportable 07/25/17 07:33 Platelet Satelliting Not Reportable 07/25/17 07:33 Plt Morphology Comment Not Reportable 07/25/17 07:33 RBC Morphology Not Reportable 07/25/17 07:33 Dimorphic RBCs Not Reportable 07/25/17 07:33 Polychromasia Not Reportable 07/25/17 07:33 Hypochromasia 2+ 07/25/17 07:33 Poikilocytosis Not Reportable 07/25/17 07:33 Anisocytosis 1+ 07/25/17 07:33 Microcytosis Not Reportable 07/25/17 07:33 Macrocytosis Not Reportable 07/25/17 07:33 Spherocytes Not Reportable 07/25/17 07:33 Pappenheimer Bodies Not Reportable 07/25/17 07:33 Sickle Cells Not Reportable 07/25/17 07:33 Target Cells Not Reportable 07/25/17 07:33 Tear Drop Cells Few 07/25/17 07:33 Ovalocytes Not Reportable 07/25/17 07:33 Helmet Cells Not Reportable 07/25/17 07:33 [place] Bodies Not Reportable 07/25/17 07:33 [place] Rings Not Reportable 07/25/17 07:33 Aileen Cells Not Reportable 07/25/17 07:33 Bite Cells Not Reportable 07/25/17 07:33 Crenated Cell Not Reportable 07/25/17 07:33 Elliptocytes Not Reportable 07/25/17 07:33 Acanthocytes (Spur) Not Reportable 07/25/17 07:33 Rouleaux Not Reportable 07/25/17 07:33 Hemoglobin C Crystals Not Reportable 07/25/17 07:33 Schistocytes Not Reportable 07/25/17 07:33 Malaria parasites Not Reportable 07/25/17 07:33 [place] Bodies Not Reportable 07/25/17 07:33 Hem Pathologist Commnt No 07/25/17 07:33 PT 12.8 Sec. (12.2-14.9) 07/25/17 12:20 INR 0.92 (0.87-1.13) 07/25/17 12:20 APTT 20.0 Sec. (24.2-36.6) L 07/25/17 12:20 POC ABG pH 7.379 (7.35-7.45) 07/25/17 08:34 POC ABG pCO2 34.5 (35-45) L 07/25/17 08:34 POC ABG pO2 89 (80-105) 07/25/17 08:34 POC ABG HCO3 20.4 07/25/17 08:34 POC ABG Total CO2 21 07/25/17 08:34 POC ABG O2 Sat 97 07/25/17 08:34 POC ABG Base Excess -5 07/25/17 08:34 FiO2 21 % 07/25/17 08:34 Sodium 136 mmol/L (137-145) L 07/26/17 04:00 Potassium 5.2 mmol/L (3.6-5.0) H D 07/26/17 04:00 Chloride 99.0 mmol/L (98-107) 07/26/17 04:00 Carbon Dioxide 24 mmol/L (22-30) 07/26/17 04:00 Anion Gap 18 mmol/L 07/26/17 04:00 BUN 18 mg/dL (7-17) H 07/26/17 04:00 Creatinine 0.8 mg/dL (0.7-1.2) 07/26/17 04:00 Estimated GFR > 60 ml/min 07/26/17 04:00 BUN/Creatinine Ratio 23 % 07/26/17 04:00 Glucose 367 mg/dL (65-100) H 07/26/17 04:00 POC Glucose 144 (70-105) H 07/27/17 16:50 Calcium 8.9 mg/dL (8.4-10.2) 07/26/17 04:00 NT-Pro-B Natriuret Pep 42.25 pg/mL (0-900) 07/25/17 07:33 Urine Color Straw (Yellow) 07/25/17 09:50 Urine Turbidity Clear (Clear) 07/25/17 09:50 Urine pH 6.0 (5.0-7.0) 07/25/17 09:50 Ur Specific [place] 1.025 (1.003-1.030) 07/25/17 09:50 Urine Protein <15 mg/dl mg/dL (Negative) 07/25/17 09:50 Urine Glucose (UA) >=500 mg/dL (Negative) 07/25/17 09:50 Urine Ketones Neg mg/dL (Negative) 07/25/17 09:50 Urine Blood Neg (Negative) 07/25/17 09:50 Urine Nitrite Neg (Negative) 07/25/17 09:50 Urine Bilirubin Neg (Negative) 07/25/17 09:50 Urine Urobilinogen < 2.0 mg/dL (<2.0) 07/25/17 09:50 Ur Leukocyte Esterase Tr (Negative) 07/25/17 09:50 Urine WBC (Auto) 4.0 /HPF (0.0-6.0) 07/25/17 09:50 Urine RBC (Auto) 1.0 /HPF (0.0-6.0) 07/25/17 09:50 U Epithel Cells (Auto) < 1.0 /HPF (0-13.0) 07/25/17 09:50 Blood Type O POSITIVE 07/25/17 12:20 Antibody Screen Negative 07/25/17 12:20 Crossmatch See Detail 07/25/17 12:20
[2017-07-27] MEDS: ZITHROMAX PO SCH (18:57)
[2017-07-27] MEDS: DIFLUCAN PO SCH (20:02)
[2017-07-27] MEDS ORDERED: DILANTIN PO SCH (22:00)
[2017-07-27] MEDS: DILANTIN PO SCH (22:26)
[2017-07-27] MEDS: LEVEMIR SUB-Q SCH (22:28)
[2017-07-27] MEDS: MONISTAT VG SCH (22:32)
[2017-07-28] MEDS: TESSALON PERLES PO SCH ×3 (06:33→22:50)
[2017-07-28] MEDS: PERCOCET 5/325 PO PRN ×3 (07:55→18:38)
[2017-07-28] MEDS: ZOFRAN IV PRN ×3 (07:55→18:38)
[2017-07-28] MEDS: EMTRICITABINE PO SCH ×2 (08:54→12:47)
[2017-07-28] MEDS: TENOFOVIR PO SCH ×2 (08:54→12:47)
[2017-07-28] MEDS: DUONEB *Not for PRN Use IH SCH ×3 (09:08→20:15)
[2017-07-28] MEDS: BROVANA NEBU IH SCH ×2 (09:08→20:27)
[2017-07-28] MEDS: PULMICORT IH SCH ×2 (09:08→20:27)
[2017-07-28] MEDS: NOVOLOG SUB-Q SCH ×4 (10:12→22:55)
[2017-07-28] MEDS: ISENTRESS PO SCH ×2 (10:13→22:50)
[2017-07-28] MEDS: NACL 0.9% 1000 ML 1,000 ML IV SCH (10:13)
[2017-07-28] MEDS: BACTRIM DS PO SCH ×2 (10:13→22:50)
[2017-07-28] MEDS: NORVASC PO SCH (10:13)
[2017-07-28] MEDS: THERAGRAN-M Tab PO SCH (10:13)
[2017-07-28] MEDS: LASIX PO SCH (10:13)
[2017-07-28] MEDS: PROTONIX PO SCH (10:14)
[2017-07-28] MEDS: DIFLUCAN PO SCH (10:14)
--- NOTE | 2017-07-28 12:02 | Progress Note ---
Assessment and Plan 61 y/o female with known HIV and COPD/asthma, admitted with flare. 1. Continue steroids at BID 2. Agree with BID pulmicort and brovana 3. OOB to chair and ambulate as tolerated 4. Weight loss. 5. Can likely be discharged tomorrow. Switch to PRednisone 60 daily in the am and taper over 2weeks time. 60x3, 40x3, 20x3, 10x3 then stop. Subjective Date of service: 07/28/17 Principal diagnosis: Anemia Interval history: Had EGD yesterday. Tolerated well. Small [place] Tear at [place]. Breathing stable. Objective Vital Signs - 12hr 07/28/17 07/28/17 01:08 09:08 Temperature 98.5 F Pulse Rate 95 H Pulse Rate [ 98 H Posterior Bilateral Throughout] Respiratory 20 Rate Respiratory 20 Rate [Posterior Bilateral Throughout] Blood Pressure 103/66 O2 Sat by Pulse 96 Oximetry Constitutional: alert ENT: oropharynx moist Neck: supple Ascultation: Bilateral: wheezes Cardiovascular: regular rate and rhythm Gastrointestinal: normoactive bowel sounds, soft, non-tender Extremities: no cyanosis Neurologic: normal mental status Psychiatric: mood appropriate CBC and BMP: 07/26/17 04:00 07/26/17 04:00 ABG, PT/INR, D-dimer: ABG POC ABG pH 7.379 (7.35-7.45) 07/25/17 08:34 POC ABG pCO2 34.5 (35-45) L 07/25/17 08:34 POC ABG pO2 89 (80-105) 07/25/17 08:34 POC ABG HCO3 20.4 07/25/17 08:34 POC ABG Total CO2 21 07/25/17 08:34 POC ABG O2 Sat 97 07/25/17 08:34 PT/INR, D-dimer PT 12.8 Sec. (12.2-14.9) 07/25/17 12:20 INR 0.92 (0.87-1.13) 07/25/17 12:20 Abnormal lab findings: Abnormal Labs 07/25/17 07/25/17 07/25/17 07:33 08:34 12:20 RBC 3.53 L Hgb 7.5 L Hct 25.2 L MCV 71 L MCH 21 L RDW 21.1 H Seg Neutrophils % Seg Neuts % (Manual) 75.0 H Lymphocytes # (Manual) 0.9 L APTT POC ABG pCO2 34.5 L Sodium Potassium BUN Glucose POC Glucose Crossmatch See Detail 07/25/17 07/25/17 07/26/17 12:20 20:51 04:00 RBC Hgb Hct MCV MCH RDW 17.6 H Seg Neutrophils % 70.7 H Seg Neuts % (Manual) Lymphocytes # (Manual) APTT 20.0 L POC ABG pCO2 Sodium Potassium BUN Glucose POC Glucose 485 H Crossmatch 07/26/17 07/26/17 07/26/17 04:00 08:35 11:57 RBC Hgb Hct MCV MCH RDW Seg Neutrophils % Seg Neuts % (Manual) Lymphocytes # (Manual) APTT POC ABG pCO2 Sodium 136 L Potassium 5.2 H D BUN 18 H Glucose 367 H POC Glucose 376 H 418 H Crossmatch 07/26/17 07/26/17 07/27/17 16:31 21:37 08:38 RBC Hgb Hct MCV MCH RDW Seg Neutrophils % Seg Neuts % (Manual) Lymphocytes # (Manual) APTT POC ABG pCO2 Sodium Potassium BUN Glucose POC Glucose 323 H 333 H 310 H Crossmatch 07/27/17 07/27/17 07/27/17 11:08 16:50 21:42 RBC Hgb Hct MCV MCH RDW Seg Neutrophils % Seg Neuts % (Manual) Lymphocytes # (Manual) APTT POC ABG pCO2 Sodium Potassium BUN Glucose POC Glucose 319 H 144 H 318 H Crossmatch 07/28/17 07:49 RBC Hgb Hct MCV MCH RDW Seg Neutrophils % Seg Neuts % (Manual) Lymphocytes # (Manual) APTT POC ABG pCO2 Sodium Potassium BUN Glucose POC Glucose 198 H Crossmatch
[2017-07-28] MEDS: ZITHROMAX PO SCH (13:34)
--- NOTE | 2017-07-28 15:39 | Progress Note ---
Assessment and Plan Assessment and plan: Anemia secondary to Upper GI bleed - Hemoglobin is currently stable - GI consulted and did EGD and colonoscopy, EGD showed mild esophageal candidiasis and I put her on fluconazole, colonoscopy poor prep COPD exacerbation - Is being managed with IV Solu-Medrol, IV antibiotic, nebulizer, oxygen support HIV Chronic CHF Seizure Diabetes mellitus type 2 with hyperglycemia - Sliding scale insulin and basal insulin - Accu-Chek, ADA diet Will continue medications DVT prophylaxis - SCDs because of GI bleed Disposition -Continue inpatient care History Interval history: Patient was seen and evaluated this morning, shortness of breath is getting better. She didn't have dark stool overnight. Hospitalist Physical - Physical exam Narrative exam: Not in cardiopulmonary distress. The patient is obese. Vital signs as documented. Head exam is unremarkable. No scleral icterus . Neck is without jugular venous distension, thyromegaly, or carotid bruits. Lungs scattered wheezing all over the chest. Cardiac exam reveals regular rate and Rhythm. First and second heart sounds normal. No murmurs, rubs or gallops. Abdominal exam reveals normal bowel sounds, no masses, no organomegaly and no aortic enlargement. Extremities are nonedematous and both femoral and pedal pulses are normal. 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 No focal weakness. - Constitutional Vitals: Temp Pulse Resp BP Pulse Ox 98.3 F 97 H 18 139/84 99 07/28/17 11:58 07/28/17 14:14 07/28/17 14:14 07/28/17 11:58 07/28/17 11:58 General appearance: Present: no acute distress Results - Labs CBC & Chem 7: 07/26/17 04:00 07/26/17 04:00 Labs: Laboratory Last Values WBC 7.4 K/mm3 (4.5-11.0) 07/26/17 04:00 RBC 4.02 M/mm3 (3.65-5.03) 07/26/17 04:00 Hgb 12.4 gm/dl (10.1-14.3) 07/26/17 04:00 Hct 38.1 % (30.3-42.9) 07/26/17 04:00 MCV 95 fl (79-97) 07/26/17 04:00 MCH 31 pg (28-32) 07/26/17 04:00 MCHC 33 % (30-34) 07/26/17 04:00 RDW 17.6 % (13.2-15.2) H 07/26/17 04:00 Plt Count 192 K/mm3 (140-440) 07/26/17 04:00 Lymph % (Auto) 21.8 % (13.4-35.0) 07/26/17 04:00 [place] % (Auto) 6.8 % (0.0-7.3) 07/26/17 04:00 Eos % (Auto) 0.0 % (0.0-4.3) 07/26/17 04:00 Baso % (Auto) 0.7 % (0.0-1.8) 07/26/17 04:00 Lymph # 1.6 K/mm3 (1.2-5.4) 07/26/17 04:00 [place] # 0.5 K/mm3 (0.0-0.8) 07/26/17 04:00 Eos # 0.0 K/mm3 (0.0-0.4) 07/26/17 04:00 Baso # 0.1 K/mm3 (0.0-0.1) 07/26/17 04:00 Add Manual Diff Complete 07/25/17 07:33 Total Counted 100 07/25/17 07:33 Seg Neutrophils % 70.7 % (40.0-70.0) H 07/26/17 04:00 Seg Neuts % (Manual) 75.0 % (40.0-70.0) H 07/25/17 07:33 Band Neutrophils % 0 % 07/25/17 07:33 Lymphocytes % (Manual) 20.0 % (13.4-35.0) 07/25/17 07:33 Reactive Lymphs % (Man) 1.0 % 07/25/17 07:33 Monocytes % (Manual) 1.0 % (0.0-7.3) 07/25/17 07:33 Eosinophils % (Manual) 0 % (0.0-4.3) 07/25/17 07:33 Basophils % (Manual) 0 % (0.0-1.8) 07/25/17 07:33 Metamyelocytes % 3.0 % 07/25/17 07:33 Myelocytes % 0 % 07/25/17 07:33 Promyelocytes % 0 % 07/25/17 07:33 Blast Cells % 0 % 07/25/17 07:33 Nucleated RBC % Not Reportable 07/25/17 07:33 Seg Neutrophils # 5.3 K/mm3 (1.8-7.7) 07/26/17 04:00 Seg Neutrophils # Man 3.5 K/mm3 (1.8-7.7) 07/25/17 07:33 Band Neutrophils # 0.0 K/mm3 07/25/17 07:33 Lymphocytes # (Manual) 0.9 K/mm3 (1.2-5.4) L 07/25/17 07:33 Abs React Lymphs (Man) 0.0 K/mm3 07/25/17 07:33 Monocytes # (Manual) 0.0 K/mm3 (0.0-0.8) 07/25/17 07:33 Eosinophils # (Manual) 0.0 K/mm3 (0.0-0.4) 07/25/17 07:33 Basophils # (Manual) 0.0 K/mm3 (0.0-0.1) 07/25/17 07:33 Metamyelocytes # 0.1 K/mm3 07/25/17 07:33 Myelocytes # 0.0 K/mm3 07/25/17 07:33 Promyelocytes # 0.0 K/mm3 07/25/17 07:33 Blast Cells # 0.0 K/mm3 07/25/17 07:33 WBC Morphology Not Reportable 07/25/17 07:33 Hypersegmented Neuts Not Reportable 07/25/17 07:33 Hyposegmented Neuts Not Reportable 07/25/17 07:33 Hypogranular Neuts Not Reportable 07/25/17 07:33 Smudge Cells Not Reportable 07/25/17 07:33 Toxic Granulation Not Reportable 07/25/17 07:33 Toxic Vacuolation Not Reportable 07/25/17 07:33 Dohle Bodies Not Reportable 07/25/17 07:33 [place]-Huet Anomaly Not Reportable 07/25/17 07:33 Susan Rods Not Reportable 07/25/17 07:33 Platelet Estimate Appears normal 07/25/17 07:33 Clumped Platelets Not Reportable 07/25/17 07:33 Plt Clumps, EDTA Not Reportable 07/25/17 07:33 Large Platelets Not Reportable 07/25/17 07:33 Giant Platelets Not Reportable 07/25/17 07:33 Platelet Satelliting Not Reportable 07/25/17 07:33 Plt Morphology Comment Not Reportable 07/25/17 07:33 RBC Morphology Not Reportable 07/25/17 07:33 Dimorphic RBCs Not Reportable 07/25/17 07:33 Polychromasia Not Reportable 07/25/17 07:33 Hypochromasia 2+ 07/25/17 07:33 Poikilocytosis Not Reportable 07/25/17 07:33 Anisocytosis 1+ 07/25/17 07:33 Microcytosis Not Reportable 07/25/17 07:33 Macrocytosis Not Reportable 07/25/17 07:33 Spherocytes Not Reportable 07/25/17 07:33 Pappenheimer Bodies Not Reportable 07/25/17 07:33 Sickle Cells Not Reportable 07/25/17 07:33 Target Cells Not Reportable 07/25/17 07:33 Tear Drop Cells Few 07/25/17 07:33 Ovalocytes Not Reportable 07/25/17 07:33 Helmet Cells Not Reportable 07/25/17 07:33 [place] Bodies Not Reportable 07/25/17 07:33 [place] Rings Not Reportable 07/25/17 07:33 Aileen Cells Not Reportable 07/25/17 07:33 Bite Cells Not Reportable 07/25/17 07:33 Crenated Cell Not Reportable 07/25/17 07:33 Elliptocytes Not Reportable 07/25/17 07:33 Acanthocytes (Spur) Not Reportable 07/25/17 07:33 Rouleaux Not Reportable 07/25/17 07:33 Hemoglobin C Crystals Not Reportable 07/25/17 07:33 Schistocytes Not Reportable 07/25/17 07:33 Malaria parasites Not Reportable 07/25/17 07:33 Barry Bodies Not Reportable 07/25/17 07:33 Hem Pathologist Commnt No 07/25/17 07:33 PT 12.8 Sec. (12.2-14.9) 07/25/17 12:20 INR 0.92 (0.87-1.13) 07/25/17 12:20 APTT 20.0 Sec. (24.2-36.6) L 07/25/17 12:20 POC ABG pH 7.379 (7.35-7.45) 07/25/17 08:34 POC ABG pCO2 34.5 (35-45) L 07/25/17 08:34 POC ABG pO2 89 (80-105) 07/25/17 08:34 POC ABG HCO3 20.4 07/25/17 08:34 POC ABG Total CO2 21 07/25/17 08:34 POC ABG O2 Sat 97 07/25/17 08:34 POC ABG Base Excess -5 07/25/17 08:34 FiO2 21 % 07/25/17 08:34 Sodium 136 mmol/L (137-145) L 07/26/17 04:00 Potassium 5.2 mmol/L (3.6-5.0) H D 07/26/17 04:00 Chloride 99.0 mmol/L (98-107) 07/26/17 04:00 Carbon Dioxide 24 mmol/L (22-30) 07/26/17 04:00 Anion Gap 18 mmol/L 07/26/17 04:00 BUN 18 mg/dL (7-17) H 07/26/17 04:00 Creatinine 0.8 mg/dL (0.7-1.2) 07/26/17 04:00 Estimated GFR > 60 ml/min 07/26/17 04:00 BUN/Creatinine Ratio 23 % 07/26/17 04:00 Glucose 367 mg/dL (65-100) H 07/26/17 04:00 POC Glucose 255 (70-105) H 07/28/17 12:03 Calcium 8.9 mg/dL (8.4-10.2) 07/26/17 04:00 NT-Pro-B Natriuret Pep 42.25 pg/mL (0-900) 07/25/17 07:33 Urine Color Straw (Yellow) 07/25/17 09:50 Urine Turbidity Clear (Clear) 07/25/17 09:50 Urine pH 6.0 (5.0-7.0) 07/25/17 09:50 Ur Specific [place] 1.025 (1.003-1.030) 07/25/17 09:50 Urine Protein <15 mg/dl mg/dL (Negative) 07/25/17 09:50 Urine Glucose (UA) >=500 mg/dL (Negative) 07/25/17 09:50 Urine Ketones Neg mg/dL (Negative) 07/25/17 09:50 Urine Blood Neg (Negative) 07/25/17 09:50 Urine Nitrite Neg (Negative) 07/25/17 09:50 Urine Bilirubin Neg (Negative) 07/25/17 09:50 Urine Urobilinogen < 2.0 mg/dL (<2.0) 07/25/17 09:50 Ur Leukocyte Esterase Tr (Negative) 07/25/17 09:50 Urine WBC (Auto) 4.0 /HPF (0.0-6.0) 07/25/17 09:50 Urine RBC (Auto) 1.0 /HPF (0.0-6.0) 07/25/17 09:50 U Epithel Cells (Auto) < 1.0 /HPF (0-13.0) 07/25/17 09:50 Blood Type O POSITIVE 07/25/17 12:20 Antibody Screen Negative 07/25/17 12:20 Crossmatch See Detail 07/25/17 12:20
[2017-07-28] MEDS: DILANTIN PO SCH (22:50)
[2017-07-28] MEDS: LEVEMIR SUB-Q SCH (22:55)
[2017-07-28] MEDS: MONISTAT VG SCH (23:14)
[2017-07-29 06:37] VITALS: BP 153/97
[2017-07-29] MEDS: TESSALON PERLES PO SCH ×2 (06:49→13:12)
[2017-07-29] MEDS: PERCOCET 5/325 PO PRN ×2 (06:50→12:56)
[2017-07-29] MEDS: NACL 0.9% 1000 ML 1,000 ML IV SCH (06:51)
[2017-07-29] MEDS: ZOFRAN IV PRN (07:14)
[2017-07-29 07:15] LABS: Basophils % (Auto) 0.1 % (0.0-1.8); Hematocrit 36.4 % (30.3-42.9); Hemoglobin 11.9 gm/dl (10.1-14.3); Mean Corpuscular HGB Conc 33 % (30-34); Mean Corpuscular Hemoglobin 32 pg (28-32); Mean Corpuscular Volume 97 fl (79-97); Platelet Count 139 K/mm3 (140-440); Red Blood Count 3.76 M/mm3 (3.65-5.03); Red Cell Distribution Width 17.4 % (13.2-15.2); White Blood Count 4.9 K/mm3 (4.5-11.0)
[2017-07-29 07:23] LABS: Anion Gap 17 mmol/L; BUN/Creatinine Ratio 21; Blood Urea Nitrogen 15 mg/dL (7-17); Calcium 8.3 mg/dL (8.4-10.2); Carbon Dioxide 24 mmol/L (22-30); Chloride 102.4 mmol/L (98-107); Glucose 245 mg/dL (65-100); Potassium 4.7 mmol/L (3.6-5.0); Sodium 139 mmol/L (137-145)
[2017-07-29] MEDS: PULMICORT IH SCH (08:21)
[2017-07-29] MEDS: BROVANA NEBU IH SCH (08:22)
[2017-07-29] MEDS: DUONEB *Not for PRN Use IH SCH (08:22)
[2017-07-29] MEDS: NOVOLOG SUB-Q SCH ×2 (09:30→12:49)
[2017-07-29] MEDS: THERAGRAN-M Tab PO SCH (09:33)
[2017-07-29] MEDS: PROTONIX PO SCH (09:33)
[2017-07-29] MEDS: ISENTRESS PO SCH (09:33)
[2017-07-29] MEDS: LASIX PO SCH (09:33)
[2017-07-29] MEDS: BACTRIM DS PO SCH (09:33)
[2017-07-29] MEDS: NORVASC PO SCH (09:36)
[2017-07-29] MEDS: DIFLUCAN PO SCH (09:44)
[2017-07-29] MEDS ORDERED: VIREAD PO SCH (10:00)
[2017-07-29] MEDS ORDERED: EMTRIVA PO SCH (10:00)
--- NOTE | 2017-07-29 10:37 | Discharge Summary ---
Providers - Providers Date of Admission: 07/25/17 11:58 Attending physician: BARBRA REYES MD 07/25/17 12:31 Consult to Physician [CONS] Routine Consulting Provider: CLEMENT MIRZA Reason For Exam: Upper GI bleed anemia Place consult to:: [place] [facility] Notified:: Y Was contact made?: Yes If yes, spoke with:: A/S ABHIJEET Time called:: 14:10 07/25/17 12:38 Consult to Physician [CONS] Routine Consulting Provider: RISA PATEL Reason For Exam: COPD exacerbation Place consult to:: Pulmonary Notified:: Y If yes, spoke with:: A/S Time called:: 14:00 Primary care physician: INSURANCE AND BENEFITS CLERK Hospitalization Reason for admission: GI bleeding, COPD exacerbation Condition: Stable Pertinent studies: EGD/colonoscopy - Antral gastritis - Mild Lizeth esophagitis Hospital course: 61-year-old -[place] female with past medical history significant for COPD, AIDS, diabetes mellitus type 2, congestive heart failure, seizure presented to the emergency department complaining of; she couldn't breath for the last 4 days despite using her rescue inhaler. Patient showed associated cough productive of yellowish sputum for the last 3-4 days, fever, chills. Patient is complaining that she has been distended on this very for the last 3 days, sharp, constant, with radiation to both arms, associated with diaphoresis and shortness of breath. Patient subsequently complaining that she had dark stools for the last 4 days but denied any abdominal pain, use of NSAIDs. Patient has been admitted many times for COPD exacerbation. Patient is admitted to the floor and she was treated for COPD exacerbation. She was transfused 1 unit of blood and her H&H was stable. GI was consulted and EGD colonoscopy was done and no active bleeding was found, shows until gastritis and mild Lizeth esophagitis. Patient was treated with fluconazole. Patient was hemodynamically stable at time of discharge. Appropriate medications were refilled. Patient was advised to have follow-up with primary care physician. Patient's questions and concerns were Addressed at the bedside. Disposition: - TO HOME OR SELFCARE Time spent for discharge: 31 minutes - Discharge Diagnoses (1) Acute blood loss anemia Status: Acute (2) Acute exacerbation of chronic obstructive pulmonary disease (COPD) Status: Acute (3) Acute upper gastrointestinal bleeding Status: Acute (4) AIDS Status: Acute (5) Acute exacerbation of COPD with asthma Status: Acute Comment: We'll discharge with nebulizes bronchodilating is still worried taper. Follow-up with primary care physician 3-5 days. So we'll continue anabiotic's Levaquin to complete 5 more days. Core Measure Documentation - Palliative Care Palliative Care/ Comfort Measures: Not Applicable - Core Measures Any of the following diagnoses?: none Exam - Physical Exam Narrative exam: Not in cardiopulmonary distress. The patient is obese. Vital signs as documented. Head exam is unremarkable. No scleral icterus . Neck is without jugular venous distension, thyromegaly, or carotid bruits. Lungs scattered wheezing all over the chest. Cardiac exam reveals regular rate and Rhythm. First and second heart sounds normal. No murmurs, rubs or gallops. Abdominal exam reveals normal bowel sounds, no masses, no organomegaly and no aortic enlargement. Extremities are nonedematous and both femoral and pedal pulses are normal. 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 No focal weakness. - Constitutional Vitals: Temp Pulse Resp BP Pulse Ox 97.7 F 85 19 153/97 97 07/29/17 05:27 07/29/17 08:22 07/29/17 08:22 07/29/17 05:27 07/29/17 08:25 Plan Activity: no restrictions Weight Bearing Status: Full Weight Bearing Diet: low fat, low cholesterol, low salt, diabetic Additional Instructions: Please follow @[facility] in 1 week Follow up with: [facility] [Provider Group] - 7 Days PRIMARY CARE, [Primary Care Provider] - 3-5 Days Prescriptions: Insulin Detemir [Levemir] 15 units SUB-Q QHS #1 vial Miconazole 2% [Monistat 7 Vag Cream] 1 applicator VG QHS #1 tube Phenytoin (25 mg/ml) [Dilantin] 300 mg PO QHS #30 oral.liqd QUEtiapine [SEROquel] 200 mg PO QHS #30 tablet Zolpidem [Ambien] 5 mg PO QHS PRN #10 tablet PRN Reason: Sleep amLODIPine [Norvasc] 5 mg PO QDAY #30 tablet Arformoterol Nebu [Brovana Nebu] 15 mcg IH Q12HRT #120 ml Benzonatate [Tessalon Perles] 100 mg PO Q8HR #30 capsule Budesonide [Pulmicort Respules] 0.25 mg IH Q12HRT #60 nebu Fluconazole [Diflucan TAB] 200 mg PO QDAY #5 tablet Furosemide [Lasix TAB] 40 mg PO QDAY #30 tablet guaiFENesin/CODEINE [Robitussin AC] 10 ml PO Q4H PRN #100 ml PRN Reason: Cough oxyCODONE /ACETAMINOPHEN [Percocet 5/325 mg] 2 tab PO Q6H PRN #15 tablet PRN Reason: Pain, Moderate (4-6) Prednisone [predniSONE 10 mg (6-Day Pack, 21 Tabs)] 10 mg PO .TAPER #1 tab.ds.pk Sulfamethoxazole/Trimethoprim [Bactrim DS TAB] 1 each PO Q12HR #14 tablet Tiotropium [place] [Spiriva Respimat] 4 gm IH DAILY #1 mist.inhal Ipratropium/Albuterol Sulfate [DUONEB *Not for PRN Use*] 1 ampul IH TIDRT #100 ampul.neb
--- NOTE | 2017-07-29 12:10 | Progress Note ---
Assessment and Plan 61 y/o female with known HIV and COPD/asthma, admitted with flare. No new recs for today. Steroid taper as listed below. Can follow up in office if she chooses. Information provided. 1. Continue steroids at BID 2. Agree with BID pulmicort and brovana 3. OOB to chair and ambulate as tolerated 4. Weight loss. 5. Can likely be discharged tomorrow. Switch to PRednisone 60 daily in the am and taper over 2weeks time. 60x3, 40x3, 20x3, 10x3 then stop. Subjective Date of service: 07/29/17 Principal diagnosis: Anemia Interval history: Appears patient is being discharged today. Breathing is stable. No acute events. Objective Vital Signs - 12hr 07/29/17 07/29/17 07/29/17 01:03 05:27 08:00 Temperature 97.9 F 97.7 F Pulse Rate 86 89 Pulse Rate [ 86 Posterior Bilateral Throughout] Respiratory 20 18 Rate Respiratory 18 Rate [Posterior Bilateral Throughout] Blood Pressure 114/67 153/97 O2 Sat by Pulse 96 99 Oximetry 07/29/17 07/29/17 08:22 08:25 Temperature Pulse Rate Pulse Rate [ 85 Posterior Bilateral Throughout] Respiratory Rate Respiratory 19 Rate [Posterior Bilateral Throughout] Blood Pressure O2 Sat by Pulse 97 Oximetry Constitutional: alert ENT: oropharynx moist Neck: supple Ascultation: Bilateral: wheezes Cardiovascular: regular rate and rhythm Gastrointestinal: normoactive bowel sounds, soft, non-tender Extremities: no cyanosis Neurologic: normal mental status Psychiatric: mood appropriate CBC and BMP: 07/29/17 06:47 07/29/17 06:47 ABG, PT/INR, D-dimer: ABG POC ABG pH 7.379 (7.35-7.45) 07/25/17 08:34 POC ABG pCO2 34.5 (35-45) L 07/25/17 08:34 POC ABG pO2 89 (80-105) 07/25/17 08:34 POC ABG HCO3 20.4 07/25/17 08:34 POC ABG Total CO2 21 07/25/17 08:34 POC ABG O2 Sat 97 07/25/17 08:34 PT/INR, D-dimer PT 12.8 Sec. (12.2-14.9) 07/25/17 12:20 INR 0.92 (0.87-1.13) 07/25/17 12:20 Abnormal lab findings: Abnormal Labs 07/25/17 07/25/17 07/25/17 07:33 08:34 12:20 RBC 3.53 L Hgb 7.5 L Hct 25.2 L MCV 71 L MCH 21 L RDW 21.1 H Plt Count [place] % (Auto) Seg Neutrophils % Seg Neuts % (Manual) 75.0 H Lymphocytes # (Manual) 0.9 L APTT POC ABG pCO2 34.5 L Sodium Potassium BUN Glucose POC Glucose Calcium Crossmatch See Detail 07/25/17 07/25/17 07/26/17 12:20 20:51 04:00 RBC Hgb Hct MCV MCH RDW 17.6 H Plt Count [place] % (Auto) Seg Neutrophils % 70.7 H Seg Neuts % (Manual) Lymphocytes # (Manual) APTT 20.0 L POC ABG pCO2 Sodium Potassium BUN Glucose POC Glucose 485 H Calcium Crossmatch 07/26/17 07/26/17 07/26/17 04:00 08:35 11:57 RBC Hgb Hct MCV MCH RDW Plt Count [place] % (Auto) Seg Neutrophils % Seg Neuts % (Manual) Lymphocytes # (Manual) APTT POC ABG pCO2 Sodium 136 L Potassium 5.2 H D BUN 18 H Glucose 367 H POC Glucose 376 H 418 H Calcium Crossmatch 07/26/17 07/26/17 07/27/17 16:31 21:37 08:38 RBC Hgb Hct MCV MCH RDW Plt Count [place] % (Auto) Seg Neutrophils % Seg Neuts % (Manual) Lymphocytes # (Manual) APTT POC ABG pCO2 Sodium Potassium BUN Glucose POC Glucose 323 H 333 H 310 H Calcium Crossmatch 07/27/17 07/27/17 07/27/17 11:08 11:56 16:50 RBC Hgb Hct MCV MCH RDW Plt Count [place] % (Auto) Seg Neutrophils % Seg Neuts % (Manual) Lymphocytes # (Manual) APTT POC ABG pCO2 Sodium Potassium BUN Glucose POC Glucose 319 H 292 H 144 H Calcium Crossmatch 07/27/17 07/28/17 07/28/17 21:42 07:49 12:03 RBC Hgb Hct MCV MCH RDW Plt Count [place] % (Auto) Seg Neutrophils % Seg Neuts % (Manual) Lymphocytes # (Manual) APTT POC ABG pCO2 Sodium Potassium BUN Glucose POC Glucose 318 H 198 H 255 H Calcium Crossmatch 07/28/17 07/29/17 07/29/17 21:52 06:47 06:47 RBC Hgb Hct MCV MCH RDW 17.4 H Plt Count 139 L [place] % (Auto) 8.4 H Seg Neutrophils % Seg Neuts % (Manual) Lymphocytes # (Manual) APTT POC ABG pCO2 Sodium Potassium BUN Glucose 245 H POC Glucose 257 H Calcium 8.3 L Crossmatch 07/29/17 08:53 RBC Hgb Hct MCV MCH RDW Plt Count [place] % (Auto) Seg Neutrophils % Seg Neuts % (Manual) Lymphocytes # (Manual) APTT POC ABG pCO2 Sodium Potassium BUN Glucose POC Glucose 152 H Calcium Crossmatch
[2017-07-29] MEDS: ZITHROMAX PO SCH (12:48)
--- NOTE | 2017-08-12 19:06 | Operative Report ---
PROCEDURE PERFORMED: Esophagogastroduodenoscopy with cold biopsy and colonoscopy. 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 POSTOPERATIVE DIAGNOSES: Gastritis, Lizeth esophagitis, Gill-Vee tear, poor preparation of the colon, no obvious rectovaginal fistula seen. ENDOSCOPIST: Rowdy Jarrell MD INSTRUMENT: The LOAG video endoscope. MEDICATIONS: MAC anesthesia by [facility]esthesia Services. COMPLICATIONS: No apparent complications. ESTIMATED BLOOD LOSS: Minimal. SPECIMENS: Gastric antrum. IMPLANTS: None. ASSISTANTS: None. CONDITION AT COMPLETION: Stable. TECHNIQUE: The patient was informed of the risks and benefits of the procedure. She signed the informed consent to proceed. She was placed in left lateral decubitus position. The above sedative medications were given. Her vital signs remained stable throughout the procedure. The instrument was advanced from the mouth to the second portion of the duodenum under direct visualization. At that point, the bowel was insufflated and the endoscope was slowly withdrawn. The bed was then rotated and the colonoscope was advanced from the anus to the cecum under direct visualization. The cecum was identified with appendiceal orifice and the ileocecal valve. The bowel was then insufflated and the endoscope was slowly withdrawn. The quality of the preparation was poor with a moderate amount of semisolid stool throughout. FINDINGS: 1. No blood or blood clots in the upper or lower GI tract. 2. Normal duodenum. 3. Mild gastritis in the antrum, characterized by erythema and erosions, status post cold biopsy. 4. Small hiatal hernia. 5. Grade 1 Gill-Vee tear at the gastroesophageal junction, extending for approximately 1 cm; there was no obvious visible vessel and it would be considered low risk to rebleed. 6. Mild Lizeth esophagitis with plaques noted in the mid and distal esophagus. 7. There is poor preparation of the colon with a moderate amount of semisolid stool. 8. Internal hemorrhoids, grade 2. 9. No obvious rectovaginal fistula seen in the rectum, but the tissue holguin ____ and visualization was impaired. RECOMMENDATIONS: 1. There was no evidence of gross bleeding at the present time, but the Gill-Vee tear would explain the patient's recent hematemesis. 2. Continue daily Protonix. 3. Okay to resume a regular diet and discharge home. 4. Follow up with Surgery for possible rectovaginal fistula. 5. We will sign off. Please call if needed. JOB# [id number] E/NTS
== END 2017-07-29 13:28 | disposition home or self-care (01) | DRG 368 ==
LOC: ED 07:17 → 4A 11:58
PROVIDERS: ADMIT Internal Medicine; ATTEND Internal Medicine
PROC: 30233N1 Transfusion of Nonautologous Red Blood Cells into Peripheral Vein, Percutaneous Approach (ICD-10-PCS; 2017-07-25)
PROC: 4A033R1 Measurement of Arterial Saturation, Peripheral, Percutaneous Approach (ICD-10-PCS; 2017-07-25)
PROC: 0DB78ZX Excision of Stomach, Pylorus, Via Natural or Artificial Opening Endoscopic, Diagnostic (ICD-10-PCS; principal; 2017-07-27)
PROC: 0DJD8ZZ Inspection of Lower Intestinal Tract, Via Natural or Artificial Opening Endoscopic (ICD-10-PCS; 2017-07-27)
DX: K22.6 Gastro-esophageal laceration-hemorrhage syndrome (principal); B20 Human immunodeficiency virus [HIV] disease; J96.00 Acute respiratory failure, unspecified whether with hypoxia or hypercapnia; B37.81 Candidal esophagitis; J44.1 Chronic obstructive pulmonary disease with (acute) exacerbation; D62 Acute posthemorrhagic anemia; Z68.41 Body mass index [BMI] 40.0-44.9, adult; J45.901 Unspecified asthma with (acute) exacerbation; K29.71 Gastritis, unspecified, with bleeding; I50.9 Heart failure, unspecified; R56.9 Unspecified convulsions; F31.9 Bipolar disorder, unspecified; E66.9 Obesity, unspecified; K44.9 Diaphragmatic hernia without obstruction or gangrene; E11.65 Type 2 diabetes mellitus with hyperglycemia; F20.9 Schizophrenia, unspecified; E78.5 Hyperlipidemia, unspecified; I11.0 Hypertensive heart disease with heart failure; Z88.6 Allergy status to analgesic agent; Z80.1 Family history of malignant neoplasm of trachea, bronchus and lung; Z80.0 Family history of malignant neoplasm of digestive organs; Z88.1 Allergy status to other antibiotic agents; Z91.013 Allergy to seafood; Z79.4 Long term (current) use of insulin; Z79.899 Other long term (current) drug therapy
CPT/HCPCS: 36415; 71010; 74177; 80048; 81001; 82803; 82962; 83880; 85007; 85018; 85025; 85610; 85730; 86850; 86900; 86901; 86920; 87400; 88305; 88342; 93005; 93010; 94640; 96374; 99285; C9113; J1815; J1818; J1940; J2405; J2704; J2920; J2930; J7030; J7040; J7512; P9016; Q9967

== ENCOUNTER 2017-08-19 09:56 | Emergency (ER) | payer MEDICARE ==
--- NOTE | 2017-08-19 11:58 | XRay Report ---
ROUTINE CHEST, TWO VIEWS: HISTORY: Shortness of breath. The trachea, heart, mediastinal contour, lung murcia and bony thorax are unremarkable. IMPRESSION: Unremarkable chest x-ray. No significant change since 06/04/17.
[2017-08-19 13:33] LABS: Basophils % (Auto) 0.3 % (0.0-1.8); Eosinophils % (Auto) 0.9 % (0.0-4.3); Hematocrit 41.7 % (30.3-42.9); Hemoglobin 13.2 gm/dl (10.1-14.3); Lymphocytes # (Auto) 2.1 K/mm3 (1.2-5.4); Lymphocytes % (Auto) 49.6 % (13.4-35.0); Mean Corpuscular HGB Conc 32 % (30-34); Mean Corpuscular Hemoglobin 31 pg (28-32); Mean Corpuscular Volume 98 fl (79-97); Monocytes # (Auto) 0.6 K/mm3 (0.0-0.8); Monocytes % (Auto) 13.2 % (0.0-7.3); Platelet Count 182 K/mm3 (140-440); Red Blood Count 4.25 M/mm3 (3.65-5.03); Red Cell Distribution Width 19.3 % (13.2-15.2)
[2017-08-19 13:46] LABS: BUN/Creatinine Ratio 22; Blood Urea Nitrogen 11 mg/dL (7-17); Calcium 8.7 mg/dL (8.4-10.2); Hemolysis Index 19
[2017-08-20] MEDS ORDERED: DELTASONE PO ONE (01:33)
[2017-08-20] MEDS ORDERED: ATROVENT IH ONE (01:33)
[2017-08-20] MEDS ORDERED: TYLENOL PO ONE (01:33)
[2017-08-20] MEDS ORDERED: BENTYL PO ONE (01:33)
[2017-08-20] MEDS ORDERED: PROVENTIL IH ONE (01:33)
[2017-08-20] MEDS ORDERED: CARAFATE PO ONE (01:33)
--- NOTE | 2017-08-20 01:35 | Emergency Department Report ---
ED General Adult HPI - General Chief complaint: Dyspnea/Respdistress Stated complaint: CARL/SOB X2 DAYS Time Seen by Provider: 08/20/17 01:26 Source: patient, RN notes reviewed, old records reviewed Mode of arrival: Wheelchair Limitations: No Limitations - History of Present Illness Initial comments: This is a 62-year-old female whom I have evaluated in the past. Past medical history includes COPD, diabetes, HIV, hypertension, asthma, bipolar disorder, spinal stenosis. As per recent pulmonary consultation, has a CD4 count of greater than 1000, but very positive viral load, patient also recently admitted to the hospital for possible GI bleed and COPD, had an endoscopic evaluation, which demonstrated mild antral gastritis, small hiatal hernia, Gill-Vee tear at the GE junction, mi esophagitis, internal hemorrhoids Patient presents to the EO with cough, wheezing, mucus production, abdominal pain. Her symptoms have been going on for a few days. The abdominal pain is achy, increases with palpation and decreases with rest. It does not radiate anywhere. Patient denies vomiting, denies irritative urinary symptoms. Patient also complains of mild fever. No leg pain, no leg swelling. Of note, I have evaluated this patient multiple times for similar complaints, and her complaints today are very similar to prior episodes of complaints. -: Gradual Radiation: abdomen Severity scale (0 -10): 8 Quality: aching Consistency: intermittent Improves with: rest Worsens with: movement Associated Symptoms: cough, shortness of breath, weakness - Related Data Previous Rx's Medication Instructions Recorded Last Taken Type ALBUTEROL Inhaler [ProAir HFA 2 puff IH QID PRN #2 inhalation 03/13/17 2 Days Ago Rx Inhaler] ~05/08/17 Emtricitabine/Tenofovir (Tdf) 2 each PO DAILY #60 tablet 04/22/17 2 Days Ago Rx [Truvada 100 mg-150 mg Tablet] ~05/08/17 Raltegravir Potassium [Isentress] 400 mg PO BID #60 tablet 04/22/17 2 Days Ago Rx ~05/08/17 Tenofovir [Viread] 300 mg PO QDAY tablet 05/12/17 Unknown Rx Prednisone [predniSONE 10 mg 10 mg PO .TAPER #1 tab.ds.pk 06/18/17 Unknown Rx (6-Day Pack, 21 Tabs)] Tenofovir [Viread] 300 mg PO QDAY tablet 06/18/17 Unknown Rx predniSONE [Deltasone] 10 mg PO QDAY #40 tablet 06/18/17 Unknown Rx Arformoterol Nebu [Brovana Nebu] 15 mcg IH Q12HRT #120 ml 07/29/17 Unknown Rx Benzonatate [Tessalon Perles] 100 mg PO Q8HR #30 capsule 07/29/17 Unknown Rx Budesonide [Pulmicort Respules] 0.25 mg IH Q12HRT #60 nebu 07/29/17 Unknown Rx Fluconazole [Diflucan TAB] 200 mg PO QDAY #5 tablet 07/29/17 Unknown Rx Furosemide [Lasix TAB] 40 mg PO QDAY #30 tablet 07/29/17 Unknown Rx Insulin Detemir [Levemir] 15 units SUB-Q QHS #1 vial 07/29/17 Unknown Rx Ipratropium/Albuterol Sulfate 1 ampul IH TIDRT #100 ampul.neb 07/29/17 Unknown Rx [DUONEB *Not for PRN Use*] Miconazole 2% [Monistat 7 Vag 1 applicator VG QHS #1 tube 07/29/17 Unknown Rx Cream] Phenytoin (25 mg/ml) [Dilantin] 300 mg PO QHS #30 oral.liqd 07/29/17 Unknown Rx Prednisone [predniSONE 10 mg 10 mg PO .TAPER #1 tab.ds.pk 07/29/17 Unknown Rx (6-Day Pack, 21 Tabs)] QUEtiapine [SEROquel] 200 mg PO QHS #30 tablet 07/29/17 Unknown Rx Sulfamethoxazole/Trimethoprim 1 each PO Q12HR #14 tablet 07/29/17 Unknown Rx [Bactrim DS TAB] Tenofovir [Viread] 300 mg PO QDAY tablet 07/29/17 Unknown Rx Tiotropium [place] [Spiriva 4 gm IH DAILY #1 mist.inhal 07/29/17 Unknown Rx Respimat] Zolpidem [Ambien] 5 mg PO QHS PRN #10 tablet 07/29/17 Unknown Rx amLODIPine [Norvasc] 5 mg PO QDAY #30 tablet 07/29/17 Unknown Rx guaiFENesin/CODEINE [Robitussin AC] 10 ml PO Q4H PRN #100 ml 07/29/17 Unknown Rx oxyCODONE /ACETAMINOPHEN [Percocet 2 tab PO Q6H PRN #15 tablet 07/29/17 Unknown Rx 5/325 mg] Albuterol Sulfate [Proair 90 mcg IH Q4HR PRN #2 aer.pow.ba 08/20/17 Unknown Rx Respiclick] Ipratropium [Atrovent NEB] 0.5 mg IH Q4HR #2 ml 08/20/17 Unknown Rx Levofloxacin [Levaquin] 750 mg PO QDAY #5 tablet 08/20/17 Unknown Rx Metoclopramide [Reglan] 10 mg PO QID PRN #30 tablet 08/20/17 Unknown Rx predniSONE [Deltasone] 40 mg PO QDAY #8 tab 08/20/17 Unknown Rx Allergies Allergy/AdvReac Type Severity Reaction Status Date / Time shellfish derived Allergy Severe Shortness Verified 06/04/17 11:05 of Breath ibuprofen [From Motrin] Allergy Mild Shortness Verified 06/04/17 11:05 of Breath tetracycline Allergy Shortness Verified 06/04/17 11:05 of Breath ED Review of Systems ROS: Stated complaint: CARL/SOB X2 DAYS Other details as noted in HPI Constitutional: fever, malaise, weakness Eyes: denies: eye discharge ENT: denies: epistaxis Respiratory: wheezing Cardiovascular: denies: chest pain Gastrointestinal: abdominal pain Genitourinary: denies: dysuria Musculoskeletal: as per HPI, arthralgia, myalgia Skin: denies: lesions Neurological: weakness Psychiatric: anxiety ED Past Medical Hx - Past Medical History Hx Hypertension: Yes Hx Congestive Heart Failure: Yes Hx Diabetes: Yes Hx Deep Vein Thrombosis: No Hx Arthritis: No Hx Seizures: Yes Hx Psychiatric Treatment: Yes (bipolar disorder; schziphornia) Hx Asthma: Yes Hx COPD: Yes Hx HIV: Yes Additional medical history: CDIFF, spinal stenosis - Surgical History Hx Pacemaker: No Hx Internal Defibrillator: Yes Additional Surgical History: hysterectomy; rt arm skin graph - Social History Smoking Status: Never Smoker Substance Use Type: None - Medications Home Medications: Home Medications Medication Instructions Recorded Confirmed Last Taken Type ALBUTEROL Inhaler [ProAir HFA 2 puff IH QID PRN #2 inhalation 03/13/17 07/26/17 2 Days Ago Rx Inhaler] ~05/08/17 Emtricitabine/Tenofovir (Tdf) 2 each PO DAILY #60 tablet 04/22/17 07/26/17 2 Days Ago Rx [Truvada 100 mg-150 mg Tablet] ~05/08/17 Raltegravir Potassium [Isentress] 400 mg PO BID #60 tablet 04/22/17 07/26/17 2 Days Ago Rx ~05/08/17 Tenofovir [Viread] 300 mg PO QDAY tablet 05/12/17 07/26/17 Unknown Rx Prednisone [predniSONE 10 mg 10 mg PO .TAPER #1 tab.ds.pk 06/18/17 07/26/17 Unknown Rx (6-Day Pack, 21 Tabs)] Tenofovir [Viread] 300 mg PO QDAY tablet 06/18/17 07/26/17 Unknown Rx predniSONE [Deltasone] 10 mg PO QDAY #40 tablet 06/18/17 07/26/17 Unknown Rx Arformoterol Nebu [Brovana Nebu] 15 mcg IH Q12HRT #120 ml 07/29/17 Unknown Rx Benzonatate [Tessalon Perles] 100 mg PO Q8HR #30 capsule 07/29/17 Unknown Rx Budesonide [Pulmicort Respules] 0.25 mg IH Q12HRT #60 nebu 07/29/17 Unknown Rx Fluconazole [Diflucan TAB] 200 mg PO QDAY #5 tablet 07/29/17 Unknown Rx Furosemide [Lasix TAB] 40 mg PO QDAY #30 tablet 07/29/17 Unknown Rx Insulin Detemir [Levemir] 15 units SUB-Q QHS #1 vial 07/29/17 Unknown Rx Ipratropium/Albuterol Sulfate 1 ampul IH TIDRT #100 ampul.neb 07/29/17 Unknown Rx [DUONEB *Not for PRN Use*] Miconazole 2% [Monistat 7 Vag 1 applicator VG QHS #1 tube 07/29/17 Unknown Rx Cream] Phenytoin (25 mg/ml) [Dilantin] 300 mg PO QHS #30 oral.liqd 07/29/17 Unknown Rx Prednisone [predniSONE 10 mg 10 mg PO .TAPER #1 tab.ds.pk 07/29/17 Unknown Rx (6-Day Pack, 21 Tabs)] QUEtiapine [SEROquel] 200 mg PO QHS #30 tablet 07/29/17 Unknown Rx Sulfamethoxazole/Trimethoprim 1 each PO Q12HR #14 tablet 07/29/17 Unknown Rx [Bactrim DS TAB] Tenofovir [Viread] 300 mg PO QDAY tablet 07/29/17 Unknown Rx Tiotropium [place] [Spiriva 4 gm IH DAILY #1 mist.inhal 07/29/17 Unknown Rx Respimat] Zolpidem [Ambien] 5 mg PO QHS PRN #10 tablet 07/29/17 Unknown Rx amLODIPine [Norvasc] 5 mg PO QDAY #30 tablet 07/29/17 Unknown Rx guaiFENesin/CODEINE [Robitussin AC] 10 ml PO Q4H PRN #100 ml 07/29/17 Unknown Rx oxyCODONE /ACETAMINOPHEN [Percocet 2 tab PO Q6H PRN #15 tablet 07/29/17 Unknown Rx 5/325 mg] Albuterol Sulfate [Proair 90 mcg IH Q4HR PRN #2 aer.pow.ba 08/20/17 Unknown Rx Respiclick] Ipratropium [Atrovent NEB] 0.5 mg IH Q4HR #2 ml 08/20/17 Unknown Rx Levofloxacin [Levaquin] 750 mg PO QDAY #5 tablet 08/20/17 Unknown Rx Metoclopramide [Reglan] 10 mg PO QID PRN #30 tablet 08/20/17 Unknown Rx predniSONE [Deltasone] 40 mg PO QDAY #8 tab 08/20/17 Unknown Rx ED Physical Exam - General Limitations: No Limitations General appearance: alert, anxious - Head Head exam: Present: atraumatic, normocephalic - Eye Eye exam: Present: normal appearance - ENT ENT exam: Present: normal exam, normal orophraynx, mucous membranes moist, normal external ear exam - Neck Neck exam: Present: normal inspection, full ROM - Respiratory Respiratory exam: Present: wheezes, rhonchi. Absent: respiratory distress - Cardiovascular Cardiovascular Exam: Present: normal rhythm, tachycardia, normal heart sounds. Absent: systolic murmur, diastolic murmur, rubs, gallop - GI/Abdominal GI/Abdominal exam: Present: soft, tenderness, normal bowel sounds. Absent: distended, guarding, rebound, rigid, pulsatile mass - Extremities Exam Extremities exam: Present: normal inspection, full ROM, normal capillary refill. Absent: tenderness, pedal edema, joint swelling, calf tenderness - Back Exam Back exam: Present: normal inspection, full ROM. Absent: tenderness, CVA tenderness (R), muscle spasm, paraspinal tenderness, vertebral tenderness - Neurological Exam Neurological exam: Present: alert, CN II-XII intact, other (Extraocular movements intact. Tongue midline. No facial droop. Facial sensation intact to light touch in the V1, V2, V3 distribution bilaterally. 5 and 5 strength in 4 extremities.. Sensation is intact to light touch in 4 extremities.). Absent : motor sensory deficit - Psychiatric Psychiatric exam: Present: anxious - Skin Skin exam: Present: warm, dry, intact, normal color. Absent: rash ED Course Vital Signs 08/19/17 08/19/17 08/20/17 11:17 19:25 00:20 Temperature 99.4 F 98.3 F 97.9 F Pulse Rate 107 H 132 H 112 H Pulse Rate [ Bilateral Throughout] Respiratory 20 16 20 Rate Respiratory Rate [Bilateral Throughout] Blood Pressure 154/83 125/76 141/109 Blood Pressure [Left] O2 Sat by Pulse 95 100 99 Oximetry 08/20/17 08/20/17 08/20/17 01:41 01:49 02:30 Temperature 99 F 100.7 F H Pulse Rate 118 H 114 H Pulse Rate [ Bilateral Throughout] Respiratory 22 18 Rate Respiratory Rate [Bilateral Throughout] Blood Pressure 125/91 Blood Pressure 144/95 [Left] O2 Sat by Pulse 98 97 Oximetry 08/20/17 08/20/17 08/20/17 02:40 03:00 03:14 Temperature 99.1 F Pulse Rate 119 H Pulse Rate [ 104 H Bilateral Throughout] Respiratory 17 Rate Respiratory 20 Rate [Bilateral Throughout] Blood Pressure 123/84 Blood Pressure [Left] O2 Sat by Pulse 97 Oximetry 08/20/17 08/20/17 08/20/17 04:00 04:30 05:00 Temperature Pulse Rate Pulse Rate [ Bilateral Throughout] Respiratory Rate Respiratory Rate [Bilateral Throughout] Blood Pressure 125/91 120/78 123/96 Blood Pressure [Left] O2 Sat by Pulse 98 93 95 Oximetry 08/20/17 05:16 Temperature 98.8 F Pulse Rate Pulse Rate [ Bilateral Throughout] Respiratory Rate Respiratory Rate [Bilateral Throughout] Blood Pressure Blood Pressure [Left] O2 Sat by Pulse Oximetry - Reevaluation(s) Reevaluation #1: 08/20/17 02:45 Differential diagnosis, including without limited to: Viral syndrome, bronchitis , pneumonia, urinary tract infection, intra-abdominal infection Assessment and plan: 62-year-old female, HIV positive, I have evaluated her multiple times in the past, with low-grade fever, tachycardia, cough, wheezing, mucus production. Also has abdominal pain. This is identical to multiple presentations for which I have personally evaluated the patient. Clinically, feel the patient's presentation most consistent with COPD exacerbation. She will be given prednisone, abdominal pain medication, albuterol, Atrovent, and acetaminophen. Laboratory studies reviewed and are unremarkable, CT scan of abdomen and pelvis is pending. Patient to me denies chest pain, based on the clinical history, I find the patient to be low risk by heart score, I think acute coronary syndrome is unlikely, her symptoms have been going on for days, troponin negative 1, therefore as per the [employer] clinical policy, myocardial infarction may be excluded with 1 set of cardiac enzymes, as symptoms have been present for greater than 8 hours. Reevaluation #2: 08/20/17 05:49 Patient has been observed in the ER for approximately 20 hours secondary to prolonged wait time. She is still wheezing but saturating well at 96, 97%, has some degree of tachycardia, currently 114 beats per minute. I would expect essentially quantitative albuterol that the patient received. She is eating and drinking without difficulty. She is therefore stable for a trial of outpatient therapy. Urinalysis suggests urinary tract infection. Noncontrast CT scan of the abdomen and pelvis is negative for acute disease, patient is suitable for trial of outpatient management for her COPD. Patient will be discharged at this time, return precautions are reviewed 08/20/17 05:51 ED Medical Decision Making - Lab Data Result diagrams: 08/19/17 13:01 08/19/17 13:15 Vital Signs 08/19/17 08/19/17 08/20/17 11:17 19:25 00:20 Temperature 99.4 F 98.3 F 97.9 F Pulse Rate 107 H 132 H 112 H Respiratory 20 16 20 Rate Blood Pressure 154/83 125/76 141/109 Blood Pressure [Left] O2 Sat by Pulse 95 100 99 Oximetry 08/20/17 08/20/17 01:41 01:49 Temperature 99 F 100.7 F H Pulse Rate 118 H Respiratory 22 Rate Blood Pressure Blood Pressure 144/95 [Left] O2 Sat by Pulse 98 Oximetry Lab Results 08/19/17 08/19/17 Range/Units 13:01 13:15 WBC 4.2 L (4.5-11.0) K/mm3 RBC 4.25 (3.65-5.03) M/mm3 Hgb 13.2 (10.1-14.3) gm/dl Hct 41.7 (30.3-42.9) % MCV 98 H (79-97) fl MCH 31 (28-32) pg MCHC 32 (30-34) % RDW 19.3 H (13.2-15.2) % Plt Count 182 (140-440) K/mm3 Lymph % (Auto) 49.6 H (13.4-35.0) % Hardy % (Auto) 13.2 H (0.0-7.3) % Eos % (Auto) 0.9 (0.0-4.3) % Baso % (Auto) 0.3 (0.0-1.8) % Lymph # 2.1 (1.2-5.4) K/mm3 Hardy # 0.6 (0.0-0.8) K/mm3 Eos # 0.0 (0.0-0.4) K/mm3 Baso # 0.0 (0.0-0.1) K/mm3 Seg Neutrophils % 36.0 L (40.0-70.0) % Seg Neutrophils # 1.5 L (1.8-7.7) K/mm3 Sodium 140 (137-145) mmol/L Potassium 4.2 (3.6-5.0) mmol/L Chloride 104.0 (98-107) mmol/L Carbon Dioxide 20 L (22-30) mmol/L Anion Gap 20 mmol/L BUN 11 (7-17) mg/dL Creatinine 0.5 L (0.7-1.2) mg/dL Estimated GFR > 60 ml/min BUN/Creatinine Ratio 22 % Glucose 125 H (65-100) mg/dL Calcium 8.7 (8.4-10.2) mg/dL Troponin T < 0.010 (0.00-0.029) ng/mL NT-Pro-B Natriuret Pep 58.12 (0-900) pg/mL - EKG Data -: EKG Interpreted by Mn EKG shows normal: sinus rhythm Rate: normal - EKG Data 08/20/17 02:47 Normal sinus, 99 bpm, normal axis, QTC prolonged, Q waves noted in 1 and aVL, high left ventricular voltage, not morphologically consistent with ST elevation myocardial infarction - Radiology Data Radiology results: report reviewed, image reviewed X-ray of the chest, interpreted by myself and radiology: No acute disease Critical care attestation.: If time is entered above; I have spent that time in minutes in the direct care of this critically ill patient, excluding procedure time. ED Disposition Clinical Impression: COPD exacerbation Disposition: DC-01 TO HOME OR SELFCARE Is pt being admited?: No Does the pt Need Aspirin: No Condition: Stable Instructions: Acute Bronchitis (ED) Additional Instructions: Take the breathing medication, nausea medication as needed/directed. Follow-up with her primary care doctor or pulmonary doctor or infectious disease doctor within the next 3-4 days for a repeat checkup/evaluation. Return to the ER right away with chills, lethargy, irritability, projectile vomiting, change in mental status, confusion, inability to tolerate liquid feeds , new, worsening or different symptoms. Take Tylenol, every 4-6 hours, over-the -counter as needed for fever/pain. Referrals: PRIMARY CARE, [Primary Care Provider] - 3-5 Days JASON PEREZ MD [Staff Physician] - 3-5 Days FABI HUGGINS MD [Staff Physician] - 3-5 Days
[2017-08-20 03:20] LABS: Bacteria,Urine 1+ /HPF (Negative); Bilirubin,Urine NEG (Negative); Blood,Urine NEG (Negative); Color,Urine Yellow (Yellow); Mucus,Urine 3+ /HPF; Nitrite,Urine NEG (Negative); Urobilinogen,Urine < 2.0 mg/dL (<2.0)
[2017-08-20 05:16] VITALS: BP 123/96
--- NOTE | 2017-08-20 05:48 | Cat Scan Report ---
FINAL REPORT EXAM: CT ABDOMEN PELVIS WO CON HISTORY: abd pain TECHNIQUE: CT images obtained through the Abdomen and Pelvis without contrast. Transaxial,coronal and sagittal reformats are provided. PRIORS: 07/25/2017 FINDINGS: Imaged intrathoracic contents are unremarkable. Kidneys are normal in size, axis and position. No hydronephrosis or nephrolithiasis. The ureters are normal in course and caliber. No stones are seen within the urinary bladder. Punctate calcified granuloma noted within the liver. The liver, gallbladder, pancreas, spleen, and adrenal glands otherwise demonstrate an unremarkable noncontrast appearance. Small hiatal hernia. Hollow enteric organs are otherwise normal in course and caliber. Appendix is normal. No intra-abdominal free air/fluid or lymphadenopathy. Aorta is normal in course and caliber. An infrarenal IVC filter is noted. Prior hysterectomy. Multiple pelvic phleboliths. Superficial soft tissues are unremarkable. No acute or aggressive appearing skeletal findings. Chronic vertebral body height loss at T8 is noted. Unchanged mild anterolisthesis at L4-L5 due to pars defects. IMPRESSION: No acute findings in the abdomen or pelvis.
[2017-08-20] MEDS ORDERED: LEVAQUIN PO ONE (05:51)
== END 2017-08-20 06:35 | disposition home or self-care (01) ==
LOC: ED 09:56
DX: J44.1 Chronic obstructive pulmonary disease with (acute) exacerbation (principal); R10.9 Unspecified abdominal pain; I10 Essential (primary) hypertension; I50.9 Heart failure, unspecified; E11.9 Type 2 diabetes mellitus without complications; R56.9 Unspecified convulsions; Z91.013 Allergy to seafood; Z88.8 Allergy status to other drugs, medicaments and biological substances; F20.9 Schizophrenia, unspecified; F31.9 Bipolar disorder, unspecified
CPT/HCPCS: 36415; 71020; 74176; 80048; 81001; 83880; 84484; 85025; 93005; 93010; 94644; 99285; J7512

== ENCOUNTER 2017-10-07 09:40 | Outpatient (CLI) | payer MEDICARE ==
--- NOTE | 2017-10-08 08:40 | Fluoroscopy Report ---
BARIUM ENEMA HISTORY: Rectovaginal fistula. FINDINGS: 13 fluoroscopic images were captured during this exam. [employer] Super[employer] film of the abdomen was unremarkable. A rectal tube was inserted and secured by balloon inflation. 1 L of Gastrografin water-soluble contrast was administered to opacify the colon. A small fistulous tract is suggested in from the left, anterior rectal surface which descends inferiorly toward the vaginal canal. There is no convincing pooling of contrast in the vaginal canal on this exam although the tract may be partially compressed by the inflated balloon in the rectum. This assumed fistulous tract measures 2-3 mm in diameter and approximately 5 cm in length. Please correlate with the images as needed. The remainder of the colon is normal caliber and distensibility. There are a few scattered diverticula in the descending and sigmoid colon. No evidence for stricture or suspicious lesion. Normal appendix and terminal small bowel loops. IMPRESSION: A small rectovaginal fistula is suggested as outlined above. Mild diverticulosis of the distal colon.
== END 2017-10-07 09:41 | disposition home or self-care (01) ==
LOC: FLUORO 09:40
PROVIDERS: ATTEND Internal Medicine
DX: N82.3 Fistula of vagina to large intestine (principal); K57.30 Diverticulosis of large intestine without perforation or abscess without bleeding
CPT/HCPCS: 74270; Q9963

== ENCOUNTER 2018-03-19 07:20 | Inpatient (IN) | payer MEDICARE ==
--- NOTE | 2018-03-19 08:09 | XRay Report ---
FINAL REPORT EXAM: XR CHEST 1V AP HISTORY: cp/shortness of breath TECHNIQUE: AP portable view(s) of the chest obtained. PRIORS: 09/09/2017 FINDINGS: No mediastinal shift. Cardiac silhouette is not enlarged. No pneumothorax, effusion, or focal pulmonary opacity identified. No acute skeletal findings. IMPRESSION: No acute pulmonary finding identified.
[2018-03-19 08:31] LABS: Basophils % (Auto) 0.4 % (0.0-1.8); Eosinophils % (Auto) 1.1 % (0.0-4.3); Hematocrit 35.9 % (30.3-42.9); Hemoglobin 12.2 gm/dl (10.1-14.3); Lymphocytes # (Auto) 1.5 K/mm3 (1.2-5.4); Lymphocytes % (Auto) 35.4 % (13.4-35.0); Mean Corpuscular HGB Conc 34 % (30-34); Mean Corpuscular Hemoglobin 37 pg (28-32); Mean Corpuscular Volume 108 fl (79-97); Monocytes # (Auto) 0.5 K/mm3 (0.0-0.8); Monocytes % (Auto) 10.5 % (0.0-7.3); Platelet Count 181 K/mm3 (140-440); Red Blood Count 3.34 M/mm3 (3.65-5.03)
[2018-03-19 08:48] LABS: INR 0.92 (0.87-1.13)
[2018-03-19] MEDS ORDERED: ATROVENT IH ONE (08:48)
[2018-03-19] MEDS ORDERED: PROVENTIL IH ONE (08:48)
[2018-03-19] MEDS ORDERED: DELTASONE PO ONE (08:48)
[2018-03-19] MEDS ORDERED: PERCOCET 5/325 PO ONE (08:48)
[2018-03-19 08:49] LABS: BUN/Creatinine Ratio 32; Blood Urea Nitrogen 19 mg/dL (7-17); Calcium 9.1 mg/dL (8.4-10.2); Hemolysis Index 6
--- NOTE | 2018-03-19 10:10 | Emergency Department Report ---
ED Shortness of Breath HPI - General Chief Complaint: Dyspnea/Respdistress Stated Complaint: LT SIDE PAIN Time Seen by Provider: 03/19/18 08:19 Source: patient, old records reviewed (pt has chronic ddimer elevation with neg cta chest in aug 2017 although ddimer 1750) Mode of arrival: Stretcher Limitations: No Limitations - History of Present Illness Initial Comments: 62-year-old female with past medical history asthma, CHF, COPD, diabetes, hypertension, HIV, schizophrenia, bipolar disorder, defibrillator, and seizures presents to the Hospital complains of left-sided chest pain 2 days. Pain is at the left lower anterolateral rib area, sharp, and today, rated 8/10 intensity. Pain is worse to palpation, movement, and deep inspiration. She complains of shortness of breath and wheezing. She denies calf tenderness or edema, cough, or fever. Patient states that her last CD4 count in August 2017 was 131. - Related Data Home Medications Medication Instructions Recorded Confirmed Last Taken Advair HFA 45/21 mcg 1 puff IH BID 09/13/17 09/13/17 Unknown Albuterol Sulfate [Ventolin Hfa] 2 puff IH Q4-6H PRN 09/13/17 09/13/17 Unknown Previous Rx's Medication Instructions Recorded Last Taken Type Emtricitabine/Tenofovir (Tdf) 2 each PO DAILY #60 tablet 04/22/17 2 Days Ago Rx [Truvada 100 mg-150 mg Tablet] ~05/08/17 Raltegravir Potassium [Isentress] 400 mg PO BID #60 tablet 04/22/17 2 Days Ago Rx ~05/08/17 QUEtiapine [SEROquel] 200 mg PO QHS #30 tablet 07/29/17 Unknown Rx Zolpidem [Ambien] 5 mg PO QHS PRN #10 tablet 07/29/17 Unknown Rx amLODIPine [Norvasc] 5 mg PO QDAY #30 tablet 07/29/17 Unknown Rx Fluconazole [Diflucan TAB] 200 mg PO QDAY #7 tablet 09/15/17 Unknown Rx Insulin Glargine [Lantus VIAL] 25 units SQ QHS 30 Days vial 09/15/17 Unknown Rx Levofloxacin [Levaquin] 750 mg PO QDAY #2 tablet 09/15/17 Unknown Rx Pantoprazole [Protonix] 40 mg PO QDAY #30 tablet 09/15/17 Unknown Rx Phenytoin Sodium Extended 125 mg PO DAILY 30 Days capsule 09/15/17 Unknown Rx [Dilantin] Zolpidem [Ambien] 5 mg PO QHS PRN tablet 09/15/17 Unknown Rx predniSONE [Deltasone] 50 mg PO QDAY #4 tab 09/15/17 Unknown Rx Allergies Allergy/AdvReac Type Severity Reaction Status Date / Time shellfish derived Allergy Severe Shortness Verified 09/09/17 17:54 of Breath ibuprofen [From Motrin] Allergy Mild Shortness Verified 09/09/17 17:54 of Breath tetracycline Allergy Shortness Verified 09/09/17 17:54 of Breath ED Review of Systems ROS: Stated complaint: LT SIDE PAIN Other details as noted in HPI Comment: All other systems reviewed and negative ED Past Medical Hx - Past Medical History Previous Medical History?: Yes Hx Hypertension: Yes Hx Congestive Heart Failure: Yes Hx Diabetes: Yes Hx Deep Vein Thrombosis: No Hx Arthritis: No Hx Seizures: Yes Hx Psychiatric Treatment: Yes (bipolar disorder; schziphornia) Hx Asthma: Yes Hx COPD: Yes Hx HIV: Yes Additional medical history: CDIFF, spinal stenosis - Surgical History Past Surgical History?: Yes Hx Pacemaker: No Hx Internal Defibrillator: Yes Additional Surgical History: hysterectomy; rt arm skin graph - Social History Smoking Status: Never Smoker Substance Use Type: None - Medications Home Medications: Home Medications Medication Instructions Recorded Confirmed Last Taken Type Emtricitabine/Tenofovir (Tdf) 2 each PO DAILY #60 tablet 04/22/17 09/13/17 2 Days Ago Rx [Truvada 100 mg-150 mg Tablet] ~05/08/17 Raltegravir Potassium [Isentress] 400 mg PO BID #60 tablet 04/22/17 09/13/17 2 Days Ago Rx ~05/08/17 QUEtiapine [SEROquel] 200 mg PO QHS #30 tablet 07/29/17 09/13/17 Unknown Rx Zolpidem [Ambien] 5 mg PO QHS PRN #10 tablet 07/29/17 09/13/17 Unknown Rx amLODIPine [Norvasc] 5 mg PO QDAY #30 tablet 07/29/17 09/13/17 Unknown Rx Advair HFA 45/21 mcg 1 puff IH BID 09/13/17 09/13/17 Unknown History Albuterol Sulfate [Ventolin Hfa] 2 puff IH Q4-6H PRN 09/13/17 09/13/17 Unknown History Fluconazole [Diflucan TAB] 200 mg PO QDAY #7 tablet 09/15/17 Unknown Rx Insulin Glargine [Lantus VIAL] 25 units SQ QHS 30 Days vial 09/15/17 Unknown Rx Levofloxacin [Levaquin] 750 mg PO QDAY #2 tablet 09/15/17 Unknown Rx Pantoprazole [Protonix] 40 mg PO QDAY #30 tablet 09/15/17 Unknown Rx Phenytoin Sodium Extended 125 mg PO DAILY 30 Days capsule 09/15/17 Unknown Rx [Dilantin] Zolpidem [Ambien] 5 mg PO QHS PRN tablet 09/15/17 Unknown Rx predniSONE [Deltasone] 50 mg PO QDAY #4 tab 09/15/17 Unknown Rx ED Physical Exam - General Limitations: No Limitations - Other Other exam information: General: No limitations, patient is alert in no acute distress Head exam: Atraumatic, normocephalic Eyes exam: Normal appearance ENT: Moist mucous membrane, normal oropharynx Neck exam: Normal inspection, full range of motion, no meningismus nontender Respiratory exam: Reproducible left lower rib and lateral chest wall tenderness , bilateral expiratory wheezing, no respiratory distress or accessory muscle use Cardiovascular: Normal rate and rhythm, normal heart sounds Abdomen: Soft, nondistended, and nontender, with normal bowel sounds, no rebound, or guarding Extremity: Full range of motion normal inspection no deformity, no calf tenderness or edema Back: Normal Inspection, full range of motion, no tenderness Neurologic: Alert, oriented x3, cranial nerves intact, no motor or sensory deficit Psychiatric: normal affect, normal mood Skin: Warm, dry, intact ED Course Vital Signs 03/19/18 03/19/18 03/19/18 07:34 08:00 08:30 Temperature 98.9 F Pulse Rate 79 85 82 Pulse Rate [ Posterior Bilateral] Respiratory 18 21 18 Rate Respiratory Rate [Posterior Bilateral] Blood Pressure 127/79 125/80 125/77 O2 Sat by Pulse 99 98 99 Oximetry 03/19/18 03/19/18 03/19/18 08:53 09:00 09:30 Temperature Pulse Rate 74 83 Pulse Rate [ 78 Posterior Bilateral] Respiratory 16 9 L Rate Respiratory 18 Rate [Posterior Bilateral] Blood Pressure 138/80 141/81 O2 Sat by Pulse 100 100 Oximetry 03/19/18 03/19/18 10:00 10:04 Temperature Pulse Rate 90 Pulse Rate [ 102 H Posterior Bilateral] Respiratory 16 Rate Respiratory 20 Rate [Posterior Bilateral] Blood Pressure 145/94 O2 Sat by Pulse 99 Oximetry ED Medical Decision Making - Lab Data Result diagrams: 03/19/18 08:15 03/19/18 08:15 Lab Results 03/19/18 03/19/18 03/19/18 Range/Units 08:15 08:15 08:23 WBC 4.3 L (4.5-11.0) K/mm3 RBC 3.34 L (3.65-5.03) M/mm3 Hgb 12.2 (10.1-14.3) gm/dl Hct 35.9 (30.3-42.9) % MCV 108 H (79-97) fl MCH 37 H (28-32) pg MCHC 34 (30-34) % RDW 15.0 (13.2-15.2) % Plt Count 181 (140-440) K/mm3 Lymph % (Auto) 35.4 H (13.4-35.0) % Sutter % (Auto) 10.5 H (0.0-7.3) % Eos % (Auto) 1.1 (0.0-4.3) % Baso % (Auto) 0.4 (0.0-1.8) % Lymph # 1.5 (1.2-5.4) K/mm3 Sutter # 0.5 (0.0-0.8) K/mm3 Eos # 0.0 (0.0-0.4) K/mm3 Baso # 0.0 (0.0-0.1) K/mm3 Seg Neutrophils % 52.6 (40.0-70.0) % Seg Neutrophils # 2.3 (1.8-7.7) K/mm3 PT 12.8 (12.2-14.9) Sec. INR 0.92 (0.87-1.13) Sodium 140 (137-145) mmol/L Potassium 4.2 (3.6-5.0) mmol/L Chloride 105.8 (98-107) mmol/L Carbon Dioxide 19 L (22-30) mmol/L Anion Gap 19 mmol/L BUN 19 H (7-17) mg/dL Creatinine 0.6 L (0.7-1.2) mg/dL Estimated GFR > 60 ml/min BUN/Creatinine Ratio 32 % Glucose 128 H (65-100) mg/dL Calcium 9.1 (8.4-10.2) mg/dL Troponin T < 0.010 (0.00-0.029) ng/mL NT-Pro-B Natriuret Pep (0-900) pg/mL 03/19/18 Range/Units 08:23 WBC (4.5-11.0) K/mm3 RBC (3.65-5.03) M/mm3 Hgb (10.1-14.3) gm/dl Hct (30.3-42.9) % MCV (79-97) fl MCH (28-32) pg MCHC (30-34) % RDW (13.2-15.2) % Plt Count (140-440) K/mm3 Lymph % (Auto) (13.4-35.0) % Sutter % (Auto) (0.0-7.3) % Eos % (Auto) (0.0-4.3) % Baso % (Auto) (0.0-1.8) % Lymph # (1.2-5.4) K/mm3 Sutter # (0.0-0.8) K/mm3 Eos # (0.0-0.4) K/mm3 Baso # (0.0-0.1) K/mm3 Seg Neutrophils % (40.0-70.0) % Seg Neutrophils # (1.8-7.7) K/mm3 PT (12.2-14.9) Sec. INR (0.87-1.13) Sodium (137-145) mmol/L Potassium (3.6-5.0) mmol/L Chloride (98-107) mmol/L Carbon Dioxide (22-30) mmol/L Anion Gap mmol/L BUN (7-17) mg/dL Creatinine (0.7-1.2) mg/dL Estimated GFR ml/min BUN/Creatinine Ratio % Glucose (65-100) mg/dL Calcium (8.4-10.2) mg/dL Troponin T (0.00-0.029) ng/mL NT-Pro-B Natriuret Pep 40.05 (0-900) pg/mL - EKG Data -: EKG Interpreted by Me EKG shows normal: sinus rhythm, axis (qrs 1), QRS complexes (qrsd 91), ST-T waves (no stemi/t wave inv) Rate: normal (81) - Radiology Data Radiology results: report reviewed FINAL REPORT EXAM: XR CHEST 1V AP HISTORY: cp/shortness of breath TECHNIQUE: AP portable view(s) of the chest obtained. PRIORS: 09/09/2017 FINDINGS: No mediastinal shift. Cardiac silhouette is not enlarged. No pneumothorax, effusion, or focal pulmonary opacity identified. No acute skeletal findings. IMPRESSION: No acute pulmonary finding identified. - Medical Decision Making Patient is reproducible left lower rib pain and has a normal room air oxygen saturation. Suspect chest wall strain/pain given that pain is also reproducible with movement. Patient has wheezing secondary to COPD. Chest x- ray and labs unremarkable pt will be admitted due to persistant sx pt is known to have poor peripheral access and states she requires ultrasound- guided IV access. Patient will benefit from a port. Given oral medication in the ED. - Differential Diagnosis rib strain, pneumonia, bronchitis, PE, COPD Critical Care Time: No Critical care attestation.: If time is entered above; I have spent that time in minutes in the direct care of this critically ill patient, excluding procedure time. ED Disposition Clinical Impression: COPD exacerbation, History of HIV or AIDS, Chest wall pain, Schizophrenia Disposition: 09 OP ADMIT IP TO THIS HOSP Is pt being admited?: Yes Condition: Stable Time of Disposition: 11:32 (Dr Llanos/hosp)
--- NOTE | 2018-03-19 11:29 | History and Physical Report ---
History of Present Illness Chief complaint: Im short of breath History of present illness: 62 YO Female with CHF, COPD, DM, Seizure Disorder, HTN, Bipolar, Schizophrenia, HIV presents to ED for evaluation. Pt states that she has experienced shortness of breath and chest discomfort for the past 2 days. The patient has been using her inhaler and nebulizer at home without any relief. Pt denies fever, chills, chest pain, palpitations, NVD, Syncope, Trauma, recent ill contacts, leg swelling, calf pain, prolonged travel/immobility, trauma, individual/family history of DVT/PE, or medication noncompliance. Pt seen and evaluated in ED and found to have COPD Exacerbation. Pt admitted to medical floor. Past History Past Medical History: COPD, diabetes, heart failure, hypertension, other ( bipolar) Past Surgical History: hysterectomy, Other (Schizophrenia) Social history: single. denies: smoking, alcohol abuse, prescription drug abuse Family history: no significant family history, other (reviewed) Medications and Allergies Allergies Allergy/AdvReac Type Severity Reaction Status Date / Time shellfish derived Allergy Severe Shortness Verified 09/09/17 17:54 of Breath ibuprofen [From Motrin] Allergy Mild Shortness Verified 09/09/17 17:54 of Breath tetracycline Allergy Shortness Verified 09/09/17 17:54 of Breath Home Medications Medication Instructions Recorded Confirmed Last Taken Type Emtricitabine/Tenofovir (Tdf) 2 each PO DAILY #60 tablet 04/22/17 09/13/17 2 Days Ago Rx [Truvada 100 mg-150 mg Tablet] ~05/08/17 Raltegravir Potassium [Isentress] 400 mg PO BID #60 tablet 04/22/17 09/13/17 2 Days Ago Rx ~05/08/17 QUEtiapine [SEROquel] 200 mg PO QHS #30 tablet 07/29/17 09/13/17 Unknown Rx Zolpidem [Ambien] 5 mg PO QHS PRN #10 tablet 07/29/17 09/13/17 Unknown Rx amLODIPine [Norvasc] 5 mg PO QDAY #30 tablet 07/29/17 09/13/17 Unknown Rx Advair HFA 45/21 mcg 1 puff IH BID 09/13/17 09/13/17 Unknown History Albuterol Sulfate [Ventolin Hfa] 2 puff IH Q4-6H PRN 09/13/17 09/13/17 Unknown History Fluconazole [Diflucan TAB] 200 mg PO QDAY #7 tablet 09/15/17 Unknown Rx Insulin Glargine [Lantus VIAL] 25 units SQ QHS 30 Days vial 09/15/17 Unknown Rx Levofloxacin [Levaquin] 750 mg PO QDAY #2 tablet 09/15/17 Unknown Rx Pantoprazole [Protonix] 40 mg PO QDAY #30 tablet 09/15/17 Unknown Rx Phenytoin Sodium Extended 125 mg PO DAILY 30 Days capsule 09/15/17 Unknown Rx [Dilantin] Zolpidem [Ambien] 5 mg PO QHS PRN tablet 09/15/17 Unknown Rx predniSONE [Deltasone] 50 mg PO QDAY #4 tab 09/15/17 Unknown Rx Review of Systems Constitutional: no weight loss, no weight gain, no fever, no chills Ears, nose, mouth and throat: no ear pain, no ear discharge, no tinnitis, no decreased hearing, no nose pain, no nasal congestion Breasts: no change in shape, no swelling, no mass Cardiovascular: shortness of breath, no chest pain, no orthopnea, no palpitations, no rapid/irregular heart beat, no edema Respiratory: shortness of breath, no cough, no cough with sputum, no hemoptysis , no dyspnea on exertion Gastrointestinal: no nausea, no vomiting, no diarrhea Genitourinary Female: no pelvic pain, no flank pain, no menorrhagia, no dysuria , no urinary frequency, no urgency Rectal: no pain, no incontinence, no bleeding Musculoskeletal: no neck stiffness, no neck pain Integumentary: no rash, no pruritis, no redness, no sores, no wounds Neurological: no transient paralysis, no paralysis, no weakness, no parathesias , no numbness, no tingling Psychiatric: no anxiety, no memory loss, no change in sleep habits, no sleep disturbances, no insomnia, no hypersomnia Endocrine: no cold intolerance, no heat intolerance, no polyphagia, no excessive thirst, no polydipsia Hematologic/Lymphatic: no easy bruising, no easy bleeding, no lymphadenopathy, no lymphedema Allergic/Immunologic: no urticaria, no allergic rhinitis, no persistent infections, no anaphylaxis, no angioedema Exam - Constitutional Vitals: Temp Pulse Resp BP Pulse Ox 98.9 F 102 H 20 145/94 99 07/28/18 07:34 03/19/18 10:04 03/19/18 10:04 03/19/18 10:00 03/19/18 10:00 General appearance: Present: mild distress - EENT Eyes: Present: PERRL ENT: hearing intact, clear oral mucosa - Neck Neck: Present: supple, normal ROM - Respiratory Respiratory effort: normal Respiratory: bilateral: diminished, rhonchi - Cardiovascular Heart Sounds: Present: S1 & S2. Absent: rub, click - Extremities Extremities: pulses symmetrical, No edema Peripheral Pulses: within normal limits - Abdominal General gastrointestinal: Present: soft, non-tender, non-distended, normal bowel sounds Female genitourinary: Present: normal - Integumentary Integumentary: Present: clear, warm, dry - Musculoskeletal Musculoskeletal: gait normal, strength equal bilaterally - Psychiatric Psychiatric: appropriate mood/affect, intact judgment & insight - Neurologic Neurologic: CNII-XII intact, moves all extremities Results - Labs CBC & Chem 7: 03/19/18 08:15 03/19/18 08:15 Labs: Abnormal lab results 03/19/18 03/19/18 Range/Units 08:15 08:15 WBC 4.3 L (4.5-11.0) K/mm3 RBC 3.34 L (3.65-5.03) M/mm3 MCV 108 H (79-97) fl MCH 37 H (28-32) pg Lymph % (Auto) 35.4 H (13.4-35.0) % [place] % (Auto) 10.5 H (0.0-7.3) % Carbon Dioxide 19 L (22-30) mmol/L BUN 19 H (7-17) mg/dL Creatinine 0.6 L (0.7-1.2) mg/dL Glucose 128 H (65-100) mg/dL Assessment and Plan - Patient Problems (1) Acute respiratory failure Current Visit: No Status: Acute Qualifiers: Respiratory failure complication: hypoxia Qualified Code(s): J96.01 - Acute respiratory failure with hypoxia Plan to address problem: Supplemental oxygen, nebulizer therapy, supplemental oxygen, pulse oximetry, NIPPV as clinically indicated. (2) COPD exacerbation Current Visit: Yes Status: Acute Plan to address problem: supplemental oxygen, steroid therapy, pulse oximetry, NIPPV as clinically indicated. (3) History of HIV or AIDS Current Visit: Yes Status: Chronic Plan to address problem: Continue antiretroviral therapy, supportive care. (4) Bipolar 1 disorder Current Visit: Yes Status: Acute Plan to address problem: supportive care, continue prehospital medication. (5) DVT prophylaxis Current Visit: No Status: Acute Plan to address problem: SCD to BLE while in bed
[2018-03-19] MEDS ORDERED: PROVENTIL IH PRN (11:30)
[2018-03-19] MEDS ORDERED: SODIUM CHLORIDE FLUSH SYRINGE 10 ML IV PRN (11:30)
[2018-03-19] MEDS ORDERED: PROAIR IH PRN (11:32)
[2018-03-19] MEDS ORDERED: MAGNESIUM SULFATE IV ONE (11:36)
[2018-03-19] MEDS ORDERED: MAGNESIUM SULFATE 1 GM in NACL 0.9% 50 ML IV ONE (13:00)
[2018-03-19] MEDS: LANTUS SUB-Q SCH (21:32)
[2018-03-19] MEDS: SODIUM CHLORIDE FLUSH SYRINGE 10 ML IV SCH (21:35)
[2018-03-19] MEDS ORDERED: ISENTRESS PO SCH (22:00)
[2018-03-20] MEDS: TYLENOL PO PRN ×2 (06:59→23:37)
[2018-03-20] MEDS ORDERED: VIREAD PO SCH (10:00)
[2018-03-20] MEDS ORDERED: TENOFOVIR PO SCH (10:00)
[2018-03-20] MEDS ORDERED: EMTRICITABINE PO SCH (10:00)
[2018-03-20] MEDS ORDERED: EMTRIVA PO SCH (10:00)
[2018-03-20] MEDS: NORVASC PO SCH (10:41)
[2018-03-20] MEDS: DELTASONE PO SCH (10:41)
[2018-03-20] MEDS: DIFLUCAN PO SCH (10:41)
[2018-03-20] MEDS: DILANTIN PO SCH (10:41)
[2018-03-20] MEDS: PROTONIX PO SCH (10:41)
[2018-03-20] MEDS: SODIUM CHLORIDE FLUSH SYRINGE 10 ML IV SCH ×2 (10:42→23:37)
--- NOTE | 2018-03-20 14:18 | Progress Note ---
Assessment and Plan /Acute respiratory failure due to COPD exacerbation cont Supplemental oxygen, nebulizer therapy, supplemental oxygen, pulse oximetry , NIPPV as clinically indicated. / COPD exacerbation supplemental oxygen, steroid therapy, pulse oximetry, NIPPV as clinically indicated. / History of HIV or AIDS Continue antiretroviral therapy, supportive care. /Bipolar 1 disorder supportive care, continue prehospital medication. / DVT prophylaxis SCD to BLE while in bed Subjective Date of service: 03/20/18 Interval history: pt seen and examined c/o SOB and wheezing no chest pain Objective - Constitutional Vitals: Vital Signs - 12hr 03/20/18 03/20/18 03/20/18 06:13 09:13 09:19 Temperature 97.7 F Pulse Rate 72 Pulse Rate [ 88 93 H Posterior Bilateral] Respiratory 18 Rate Respiratory 18 18 Rate [Posterior Bilateral] Blood Pressure 105/61 O2 Sat by Pulse 95 100 Oximetry 03/20/18 03/20/18 10:41 11:37 Temperature 98.3 F Pulse Rate 114 H 82 Pulse Rate [ Posterior Bilateral] Respiratory 22 Rate Respiratory Rate [Posterior Bilateral] Blood Pressure 128/80 99/65 O2 Sat by Pulse 99 Oximetry General appearance: Present: no acute distress, obese - EENT Eyes: PERRL, EOM intact ENT: hearing intact, clear oral mucosa Ears: bilateral: normal - Neck Neck: supple, normal ROM - Respiratory Respiratory effort: normal Respiratory: bilateral: wheezing - Cardiovascular Rhythm: regular Heart Sounds: Present: S1 & S2. Absent: gallop, rub Extremities: pulses intact, No edema, normal color, Full ROM - Gastrointestinal General gastrointestinal: Present: soft, non-tender, non-distended, normal bowel sounds - Genitourinary Female genitourinary: normal - Integumentary Integumentary: clear, warm, dry - Musculoskeletal Musculoskeletal: 1, strength equal bilaterally - Neurologic Neurologic: moves all extremities - Psychiatric Psychiatric: memory intact, appropriate mood/affect, intact judgment & insight - Labs CBC & Chem 7: 03/19/18 08:15 03/19/18 08:15 Labs: Abnormal lab results 03/19/18 03/19/18 03/19/18 Range/Units 14:40 16:38 21:30 POC Glucose 221 H 293 H 208 H (70-105) - Imaging and cardiology Chest x-ray: report reviewed
[2018-03-20] MEDS: HumuLIN R SUB-Q SCH ×2 (17:45→23:36)
[2018-03-20] MEDS: LEVAQUIN PO SCH (17:58)
[2018-03-20] MEDS: HALFPRIN EC PO SCH (17:58)
[2018-03-20 18:11] LABS: Bilirubin,Urine NEG (Negative); Blood,Urine SM (Negative); Color,Urine Colorless (Yellow); Protein,Urine <15 mg/dL mg/dL (Negative); Urobilinogen,Urine < 2.0 mg/dL (<2.0)
[2018-03-20] MEDS: BROVANA NEBU IH SCH (20:05)
[2018-03-20] MEDS: PULMICORT IH SCH (20:05)
[2018-03-20] MEDS ORDERED: ADVAIR IH SCH (22:00)
[2018-03-20] MEDS: LANTUS SUB-Q SCH (23:36)
[2018-03-20] MEDS: AMBIEN PO PRN (23:37)
[2018-03-20] MEDS: LOVENOX SUB-Q SCH (23:37)
[2018-03-21] MEDS: HumuLIN R SUB-Q SCH ×5 (08:32→23:56)
[2018-03-21] MEDS: BROVANA NEBU IH SCH ×2 (08:58→20:42)
[2018-03-21] MEDS: PULMICORT IH SCH ×2 (08:58→20:42)
[2018-03-21] MEDS: DILANTIN PO SCH (10:24)
[2018-03-21] MEDS: LEVAQUIN PO SCH (10:24)
[2018-03-21] MEDS: DIFLUCAN PO SCH (10:24)
[2018-03-21] MEDS: DELTASONE PO SCH (10:25)
[2018-03-21] MEDS: HALFPRIN EC PO SCH (10:25)
[2018-03-21] MEDS: PROTONIX PO SCH (10:26)
[2018-03-21] MEDS: SODIUM CHLORIDE FLUSH SYRINGE 10 ML IV SCH (10:26)
[2018-03-21] MEDS: NORVASC PO SCH (10:26)
[2018-03-21] MEDS: LOVENOX SUB-Q SCH (22:06)
[2018-03-21] MEDS: LANTUS SUB-Q SCH (22:08)
[2018-03-21] MEDS: AMBIEN PO PRN (22:13)
[2018-03-21] MEDS: ZOFRAN IV PRN (22:13)
--- NOTE | 2018-03-22 01:21 | Progress Note ---
Assessment and Plan /Acute respiratory failure due to COPD exacerbation cont Supplemental oxygen, nebulizer therapy, supplemental oxygen, pulse oximetry , NIPPV as clinically indicated. / COPD exacerbation supplemental oxygen, steroid therapy, pulse oximetry, NIPPV as clinically indicated. / History of HIV or AIDS Continue antiretroviral therapy, supportive care. /Bipolar 1 disorder supportive care, continue prehospital medication. /MRSA, positive from Nasal secretion - likely colonized, place on mupirocin / DVT prophylaxis SCD to BLE while in bed Disposition: likely tomorrow if symptom improves Subjective Date of service: 03/21/18 Interval history: pt seen and examined c/o SOB and wheezing no chest pain Objective - Exam Narrative Exam: General appearance: Present: no acute distress, obese - EENT Eyes: PERRL, EOM intact ENT: hearing intact, clear oral mucosa Ears: bilateral: normal - Neck Neck: supple, normal ROM - Respiratory Respiratory effort: normal Respiratory: bilateral: wheezing - Cardiovascular Rhythm: regular Heart Sounds: Present: S1 & S2. Absent: gallop, rub Extremities: pulses intact, No edema, normal color, Full ROM - Gastrointestinal General gastrointestinal: Present: soft, non-tender, non-distended, normal bowel sounds - Genitourinary Female genitourinary: normal - Integumentary Integumentary: clear, warm, dry - Musculoskeletal Musculoskeletal: 1, strength equal bilaterally - Neurologic Neurologic: moves all extremities - Psychiatric Psychiatric: memory intact, appropriate mood/affect, intact judgment & insight - Constitutional Vitals: Vital Signs - 12hr 03/21/18 03/21/18 03/21/18 17:58 20:43 21:03 Temperature 98.3 F Pulse Rate 78 Pulse Rate [ 72 75 Anterior Bilateral Throughout] Respiratory 19 Rate Respiratory 15 14 Rate [Anterior Bilateral Throughout] Blood Pressure 114/68 O2 Sat by Pulse 100 Oximetry 03/22/18 00:18 Temperature 98.6 F Pulse Rate 90 Pulse Rate [ Anterior Bilateral Throughout] Respiratory 16 Rate Respiratory Rate [Anterior Bilateral Throughout] Blood Pressure 97/55 O2 Sat by Pulse 93 Oximetry - Labs CBC & Chem 7: 03/19/18 08:15 03/19/18 08:15 Labs: Abnormal lab results 03/21/18 03/21/18 03/21/18 Range/Units 12:21 16:30 21:45 POC Glucose 107 H 118 H 114 H (70-105)
[2018-03-22] MEDS: SODIUM CHLORIDE FLUSH SYRINGE 10 ML IV SCH ×4 (07:11→22:46)
[2018-03-22] MEDS: HumuLIN R SUB-Q SCH ×3 (07:30→18:44)
[2018-03-22] MEDS: BROVANA NEBU IH SCH ×2 (08:05→20:44)
[2018-03-22] MEDS: PULMICORT IH SCH ×2 (08:05→20:44)
[2018-03-22] MEDS: ZOFRAN IV PRN ×2 (08:46→16:26)
[2018-03-22] MEDS ORDERED: D50W (25GM) Syringe IV PRN (08:54)
--- NOTE | 2018-03-22 08:56 | Progress Note ---
Assessment and Plan Assessment and plan: Ms. Ramirez is a 62 yo woman with a history HIV, IDDM, hypertension, copd, enterovaginal fistula, bipolar disorder, schizophrenia, AICD/CHF and seizure who pw SOB and admitted for COPD /Acute respiratory failure due to COPD exacerbation cont Supplemental oxygen, nebulizer therapy, supplemental oxygen, pulse oximetry , NIPPV as clinically indicated. / COPD exacerbation supplemental oxygen, steroid therapy, pulse oximetry, NIPPV as clinically indicated. / History of HIV/AIDS Continue antiretroviral therapy, supportive care. /Bipolar 1 disorder supportive care, continue prehospital medication. /MRSA, positive from Nasal secretion - likely colonized, place on mupirocin / DVT prophylaxis SCD to BLE while in bed /Hypoglycemia reduce Lantus from 25 to 15unit qhs give dextrose home once bg stable History Interval history: Patient was seen and examined. Follow-up on current diagnosis. Overnight uneventful. Patient denies any chest pain, shortness breath, nausea/vomiting or severe headaches. Imaging, nursing note, chart, labs and old chart reviewed. Discussed with patient. Hospitalist Physical - Physical exam Narrative exam: GEN: WDWN, NAD, Awake, Alert, Orientated HEENT: NCAT, EOMI, PERRL, OP Clear NECK: supple, no adenopathy, no thyromegaly, no JVD CVS/HEART: RRR, normal S1S2, pulses present bilaterally CHEST/LUNGS: dimin bs bilateral, Symmetrical chest expansion, good air entry bilaterally GI/Abdomen: soft, NTND, good bowel sounds, no guarding or rebound /Bladder: no suprapubic tenderness, no CVA or paraspinal tenderness EXT/Skin: no c/c/e, no obvious rash MSK: FROM x 4 Neuro: CN 2-12 grossly intact, no new focal deficits Psych: calm - Constitutional Vitals: Temp Pulse Resp BP Pulse Ox 98.2 F 77 19 116/71 94 03/22/18 06:13 03/22/18 08:06 03/22/18 08:06 03/22/18 06:13 03/22/18 06:13 General appearance: Present: no acute distress, obese Results - Labs CBC & Chem 7: 03/19/18 08:15 03/19/18 08:15 Labs: Laboratory Last Values WBC 4.3 K/mm3 (4.5-11.0) L 03/19/18 08:15 RBC 3.34 M/mm3 (3.65-5.03) L 03/19/18 08:15 Hgb 12.2 gm/dl (10.1-14.3) 03/19/18 08:15 Hct 35.9 % (30.3-42.9) 03/19/18 08:15 MCV 108 fl (79-97) H 03/19/18 08:15 MCH 37 pg (28-32) H 03/19/18 08:15 MCHC 34 % (30-34) 03/19/18 08:15 RDW 15.0 % (13.2-15.2) 03/19/18 08:15 Plt Count 181 K/mm3 (140-440) 03/19/18 08:15 Lymph % (Auto) 35.4 % (13.4-35.0) H 03/19/18 08:15 [place] % (Auto) 10.5 % (0.0-7.3) H 03/19/18 08:15 Eos % (Auto) 1.1 % (0.0-4.3) 03/19/18 08:15 Baso % (Auto) 0.4 % (0.0-1.8) 03/19/18 08:15 Lymph # 1.5 K/mm3 (1.2-5.4) 03/19/18 08:15 [place] # 0.5 K/mm3 (0.0-0.8) 03/19/18 08:15 Eos # 0.0 K/mm3 (0.0-0.4) 03/19/18 08:15 Baso # 0.0 K/mm3 (0.0-0.1) 03/19/18 08:15 Seg Neutrophils % 52.6 % (40.0-70.0) 03/19/18 08:15 Seg Neutrophils # 2.3 K/mm3 (1.8-7.7) 03/19/18 08:15 PT 12.8 Sec. (12.2-14.9) 03/19/18 08:23 INR 0.92 (0.87-1.13) 03/19/18 08:23 Sodium 140 mmol/L (137-145) 03/19/18 08:15 Potassium 4.2 mmol/L (3.6-5.0) 03/19/18 08:15 Chloride 105.8 mmol/L (98-107) 03/19/18 08:15 Carbon Dioxide 19 mmol/L (22-30) L 03/19/18 08:15 Anion Gap 19 mmol/L 03/19/18 08:15 BUN 19 mg/dL (7-17) H 03/19/18 08:15 Creatinine 0.6 mg/dL (0.7-1.2) L 03/19/18 08:15 Estimated GFR > 60 ml/min 03/19/18 08:15 BUN/Creatinine Ratio 32 % 03/19/18 08:15 Glucose 128 mg/dL (65-100) H 03/19/18 08:15 POC Glucose 62 (70-105) L 03/22/18 07:45 Calcium 9.1 mg/dL (8.4-10.2) 03/19/18 08:15 Troponin T < 0.010 ng/mL (0.00-0.029) 03/19/18 08:15 NT-Pro-B Natriuret Pep 40.05 pg/mL (0-900) 03/19/18 08:23 Urine Color Colorless (Yellow) 03/20/18 17:30 Urine Turbidity Clear (Clear) 03/20/18 17:30 Urine pH 6.0 (5.0-7.0) 03/20/18 17:30 Ur Specific [place] 1.008 (1.003-1.030) 03/20/18 17:30 Urine Protein <15 mg/dl mg/dL (Negative) 03/20/18 17:30 Urine Glucose (UA) >=500 mg/dL (Negative) 03/20/18 17:30 Urine Ketones Neg mg/dL (Negative) 03/20/18 17:30 Urine Blood Sm (Negative) 03/20/18 17:30 Urine Nitrite Neg (Negative) 03/20/18 17:30 Urine Bilirubin Neg (Negative) 03/20/18 17:30 Urine Urobilinogen < 2.0 mg/dL (<2.0) 03/20/18 17:30 Ur Leukocyte Esterase Neg (Negative) 03/20/18 17:30 Urine WBC (Auto) 1.0 /HPF (0.0-6.0) 03/20/18 17:30 Urine RBC (Auto) 1.0 /HPF (0.0-6.0) 03/20/18 17:30 U Epithel Cells (Auto) 1.0 /HPF (0-13.0) 03/20/18 17:30
[2018-03-22] MEDS: PROTONIX PO SCH (10:00)
[2018-03-22] MEDS: LEVAQUIN PO SCH (11:21)
[2018-03-22] MEDS: DIFLUCAN PO SCH (11:21)
[2018-03-22] MEDS: HALFPRIN EC PO SCH (11:22)
[2018-03-22] MEDS: NORVASC PO SCH (11:22)
[2018-03-22] MEDS: DELTASONE PO SCH (11:23)
[2018-03-22] MEDS: DILANTIN PO SCH (11:24)
[2018-03-22] MEDS: BACTROBAN 2% NS SCH (11:25)
[2018-03-22] MEDS ORDERED: LANTUS SUB-Q SCH (22:00)
[2018-03-22] MEDS: LOVENOX SUB-Q SCH (22:44)
[2018-03-22] MEDS: AMBIEN PO PRN (22:48)
[2018-03-23] MEDS: BACTROBAN 2% NS SCH ×2 (01:20→11:18)
[2018-03-23] MEDS: HumuLIN R SUB-Q SCH (01:22)
[2018-03-23] MEDS: BROVANA NEBU IH SCH ×2 (08:16→19:44)
[2018-03-23] MEDS: PULMICORT IH SCH ×2 (08:16→19:44)
[2018-03-23] MEDS: LEVAQUIN PO SCH (11:17)
[2018-03-23] MEDS: HALFPRIN EC PO SCH (11:17)
[2018-03-23] MEDS: PROTONIX PO SCH (11:17)
[2018-03-23] MEDS: DELTASONE PO SCH (11:17)
[2018-03-23] MEDS: DIFLUCAN PO SCH (11:18)
--- NOTE | 2018-03-23 13:43 | Discharge Summary ---
Providers - Providers Date of Admission: 03/19/18 12:18 Date of discharge: 03/23/18 Attending physician: STAS CIFUENTES Primary care physician: RADIATOR MECHANIC Hospitalization Condition: Stable Hospital course: Ms. Ramirez is a 62 yo woman with a history HIV, IDDM, hypertension, copd, enterovaginal fistula, bipolar disorder, schizophrenia, AICD/CHF and seizure who pw SOB and admitted for COPD /Acute respiratory failure due to COPD exacerbation cont Supplemental oxygen, nebulizer therapy, supplemental oxygen, pulse oximetry , NIPPV as clinically indicated. /Acute COPD exacerbation supplemental oxygen, steroid therapy, pulse oximetry, NIPPV as clinically indicated. / History of HIV/AIDS Continue antiretroviral therapy, supportive care. /Bipolar 1 disorder supportive care, continue prehospital medication. /MRSA, positive from Nasal secretion - likely colonized, place on mupirocin / DVT prophylaxis SCD to BLE while in bed /Hypoglycemia reduce Lantus from 25 to 15unit qhs given dextrose Disposition: DC- TO HOME OR SELFCARE Time spent for discharge: 32 minutes Core Measure Documentation - Palliative Care Palliative Care/ Comfort Measures: Not Applicable - Core Measures Any of the following diagnoses?: none - VTE Discharge Requirements Deep Vein Thrombosis/Pulmonary Embolism Present on Admission: No Has pt received <5 days of overlap therapy or INR<2.0: No Anticoagulant overlap therapy prescribed at discharge: No Contraindication No Overlap Therapy order at DC: Not Indicated Exam - Physical Exam Narrative exam: GEN: WDWN, NAD, Awake, Alert, Orientated x 3 HEENT: NCAT, EOMI, PERRL, OP Clear NECK: supple, no adenopathy, no thyromegaly, no JVD CVS/HEART: RRR, normal S1S2, pulses present bilaterally CHEST/LUNGS: improved bs bilateral, Symmetrical chest expansion, good air entry bilaterally GI/Abdomen: soft, NTND, good bowel sounds, no guarding or rebound /Bladder: no suprapubic tenderness, no CVA or paraspinal tenderness EXT/Skin: no c/c/e, no obvious rash MSK: FROM x 4 Neuro: CN 2-12 grossly intact, no new focal deficits Psych: calm - Constitutional Vitals: Temp Pulse Resp BP Pulse Ox 98.2 F 75 18 117/67 99 03/23/18 05:54 03/23/18 05:54 08/01/18 05:54 03/23/18 05:54 03/23/18 05:54 Plan Activity: other (no strenous activity until cleared by PCP) Diet: low salt, diabetic Special Instructions: record daily BP diary, record blood sugar diary Follow up with: PRIMARY CARE,MD [Primary Care Provider] - 3-5 Days ID, physician clinc [Other] - 3 Days Prescriptions: Advair 250-50 Diskus 1 puff PO BID #1 Fluconazole [Diflucan TAB] 200 mg PO QDAY #7 tablet Levofloxacin [Levaquin TAB] 750 mg PO Q24HR #3 tablet predniSONE [Deltasone] 50 mg PO QDAY #30 tablet
[2018-03-23 18:29] VITALS: BP 131/84
== END 2018-03-23 20:00 | disposition home or self-care (01) | DRG 189 ==
LOC: ED 07:20 → 3A 12:18
PROVIDERS: ADMIT Internal Medicine; ATTEND Internal Medicine
DX: J96.01 Acute respiratory failure with hypoxia (principal); B20 Human immunodeficiency virus [HIV] disease; J44.1 Chronic obstructive pulmonary disease with (acute) exacerbation; F31.9 Bipolar disorder, unspecified; F20.9 Schizophrenia, unspecified; I50.9 Heart failure, unspecified; I11.0 Hypertensive heart disease with heart failure; E11.649 Type 2 diabetes mellitus with hypoglycemia without coma; G40.909 Epilepsy, unspecified, not intractable, without status epilepticus; Z90.710 Acquired absence of both cervix and uterus; Z88.1 Allergy status to other antibiotic agents; Z22.322 Carrier or suspected carrier of Methicillin resistant Staphylococcus aureus; Z79.4 Long term (current) use of insulin; Z95.810 Presence of automatic (implantable) cardiac defibrillator; Z91.013 Allergy to seafood; Z79.899 Other long term (current) drug therapy
CPT/HCPCS: 36415; 71045; 80048; 81001; 82962; 83880; 84484; 85025; 85610; 86403; 87116; 93005; 93010; 94640; 94644; 99285; J1650; J1815; J2405; J3475; J7512

== ENCOUNTER 2018-08-31 10:28 | Inpatient (IN) | payer MEDICARE ==
[2018-08-31] MEDS ORDERED: ATROVENT IH ONE ×2 (11:01→13:32)
[2018-08-31] MEDS ORDERED: PROVENTIL IH ONE ×2 (11:01→13:32)
[2018-08-31] MEDS ORDERED: SOLU-Medrol IV ONE (11:02)
--- NOTE | 2018-08-31 11:05 | Emergency Department Report ---
HPI - General Chief Complaint: Dyspnea/Respdistress Time Seen by Provider: 08/31/18 10:55 - HPI HPI: Room 9 The patient is a 63-year-old female presenting with a chief complaint of shortness of breath. Patient states for the past 3 days she has been wheezing and had a cough productive of white sputum. Patient admits to a subjective fever and rhinorrhea. Location: Lungs Duration: 3 days Quality: Wheezing Severity: Moderate Modifying factors: [see above] Context: [see above] Mode of transportation: [not driving] ED Past Medical Hx - Past Medical History Previous Medical History?: Yes Hx Hypertension: Yes Hx Congestive Heart Failure: Yes Hx Diabetes: Yes Hx Seizures: Yes Hx Psychiatric Treatment: Yes (bipolar disorder; schziphornia) Hx Asthma: Yes Hx HIV: Yes Additional medical history: CDIFF, spinal stenosis - Surgical History Past Surgical History?: Yes Hx Internal Defibrillator: Yes Additional Surgical History: hysterectomy; rt arm skin graph - Family History Family history: no significant - Social History Smoking Status: Never Smoker Substance Use Type: None (denies illicit drug use) - Medications Home Medications: Home Medications Medication Instructions Recorded Confirmed Last Taken Type QUEtiapine [SEROquel] 200 mg PO QHS #30 tablet 07/29/17 07/14/18 1 Day Ago Rx ~07/13/18 amLODIPine [Norvasc] 5 mg PO QDAY #30 tablet 07/29/17 07/14/18 1 Day Ago Rx ~07/13/18 Albuterol Sulfate [Ventolin Hfa] 2 puff IH Q4-6H PRN 09/13/17 07/14/18 1 Day Ago History ~07/13/18 Pantoprazole [Protonix TAB] 40 mg PO QDAY #30 tablet 09/15/17 07/14/18 03/19/18 Rx Phenytoin Sodium Extended 125 mg PO DAILY 30 Days capsule 09/15/17 07/14/18 1 Day Ago Rx [Dilantin] ~07/13/18 Furosemide [Lasix TAB] 40 mg PO QDAY 03/23/18 07/14/18 1 Day Ago History ~07/13/18 Genvoya Tablet 1 tab PO QDAY 03/23/18 07/14/18 1 Day Ago History ~07/13/18 Potassium Chloride [Klor-Con 10] 1 tab PO QDAY 03/23/18 06/13/18 1 Day Ago History ~07/13/18 Tolindsey Manuelostar 25 units SUB-Q QPM 03/23/18 06/13/18 Unknown History Benzonatate [Tessalon Perles] 100 mg PO Q8HR PRN #20 capsule 07/07/18 Unknown Rx ALBUTEROL Inhaler(NF) [VENTOLIN 1 puff IH Q4HR PRN #1 inha 07/17/18 Unknown Rx Inhaler(NF)] Advair 250-50 Diskus 1 puff PO BID #1 07/17/18 Unknown Rx Genvoya Tablet 1 tab PO QDAY 07/17/18 Unknown Rx Insulin Regular, Human [HumuLIN R] 0 unit SQ AC #1 vial 07/17/18 Unknown Rx Prednisone [predniSONE 10 mg 10 mg PO .TAPER #1 tab.ds.pk 07/17/18 Unknown Rx (6-Day Pack, 21 Tabs)] ED Review of Systems ROS: Stated complaint: Other details as noted in HPI Constitutional: fever (subjective) Eyes: denies: eye pain ENT: denies: throat pain Respiratory: cough, shortness of breath, wheezing Cardiovascular: denies: chest pain Endocrine: no symptoms reported Gastrointestinal: denies: abdominal pain Genitourinary: denies: dysuria Musculoskeletal: myalgia Neurological: denies: headache Physical Exam - Physical Exam Vital Signs: Vital Signs 08/31/18 10:41 Temperature 98.2 F Pulse Rate 107 H Respiratory 20 Rate Blood Pressure 125/85 O2 Sat by Pulse 99 Oximetry Physical Exam: GENERAL: The patient is well-developed well-nourished female lying on stretcher not appear to be in acute distress. [] HEENT: Normocephalic. Atraumatic. Extraocular motions are intact. Patient has moist mucous membranes. NECK: Supple. Trachea midline CHEST/LUNGS: Diffuse wheezing. There is no respiratory distress noted. HEART/CARDIOVASCULAR: Regular. There is no tachycardia. There is no gallop rub or murmur. ABDOMEN: Abdomen is soft, nontender. Patient has normal bowel sounds. There is no abdominal distention. SKIN: There is no rash. There is no edema. There is no diaphoresis. NEURO: The patient is awake, alert, and oriented. The patient is cooperative. The patient has normal speech MUSCULOSKELETAL: There is no evidence of acute injury. ED Course Vital Signs 08/31/18 10:41 Temperature 98.2 F Pulse Rate 107 H Respiratory 20 Rate Blood Pressure 125/85 O2 Sat by Pulse 99 Oximetry - Reevaluation(s) Reevaluation #1: 08/31/18 16:35 Patient still wheezing. Will admit to the hospital ED Medical Decision Making - Lab Data Result diagrams: 08/31/18 11:08 08/31/18 11:08 Laboratory Tests 08/31/18 08/31/18 11:08 11:08 WBC 4.8 RBC 3.70 Hgb 13.6 Hct 40.8 MCV 110 H MCH 37 H MCHC 33 RDW 14.0 Plt Count 234 Add Manual Diff Complete Total Counted 100 Seg Neutrophils % Ground [employer] Equipment [employer]ic Seg Neuts % (Manual) 28.0 L Band Neutrophils % 0 Lymphocytes % (Manual) 57.0 H Reactive Lymphs % (Man) 0 Monocytes % (Manual) 12.0 H Eosinophils % (Manual) 3.0 Basophils % (Manual) 0 Metamyelocytes % 0 Myelocytes % 0 Promyelocytes % 0 Blast Cells % 0 Nucleated RBC % Not Reportable Seg Neutrophils # Man 1.3 L Band Neutrophils # 0.0 Lymphocytes # (Manual) 2.7 Abs React Lymphs (Man) 0.0 Monocytes # (Manual) 0.6 Eosinophils # (Manual) 0.1 Basophils # (Manual) 0.0 Metamyelocytes # 0.0 Myelocytes # 0.0 Promyelocytes # 0.0 Blast Cells # 0.0 WBC Morphology Not Reportable Hypersegmented Neuts Not Reportable Hyposegmented Neuts Not Reportable Hypogranular Neuts Not Reportable Smudge Cells Not Reportable Toxic Granulation Not Reportable Toxic Vacuolation Not Reportable Dohle Bodies Not Reportable Pelger-Huet Anomaly Not Reportable Susan Rods Not Reportable Platelet Estimate Consistent w auto Clumped Platelets Not Reportable Plt Clumps, EDTA Not Reportable Large Platelets Not Reportable Giant Platelets Not Reportable Platelet Satelliting Not Reportable Plt Morphology Comment Not Reportable RBC Morphology Not Reportable Dimorphic RBCs Not Reportable Polychromasia Not Reportable Hypochromasia Not Reportable Poikilocytosis 1+ Anisocytosis 1+ Microcytosis Not Reportable Macrocytosis 1+ Spherocytes Not Reportable Pappenheimer Bodies Not Reportable Sickle Cells Not Reportable Target Cells Not Reportable Tear Drop Cells Not Reportable Ovalocytes Rare Helmet Cells Not Reportable [place] Bodies Not Reportable [place] Rings Not Reportable [place] Cells Not Reportable Bite Cells Not Reportable Crenated Cell Not Reportable Elliptocytes Rare Acanthocytes (Spur) Not Reportable Rouleaux Not Reportable Hemoglobin C Crystals Not Reportable Schistocytes Not Reportable Malaria parasites Not Reportable [place] Bodies Not Reportable Hem Pathologist Commnt No Sodium 139 Potassium 4.7 Chloride 100.3 Carbon Dioxide 23 Anion Gap 20 BUN 12 Creatinine 0.6 L Estimated GFR > 60 BUN/Creatinine Ratio 20 Glucose 316 H Calcium 8.9 - Radiology Data Radiology results: report reviewed (chest x-ray), image reviewed (chest x-ray) interpreted by me: Chest x-ray-no focal infiltrates, no pneumothorax [facility] [address] [place] [address] XRay Report Signed Patient: SIRI JEAN MR#: [id number] : 1955 Acct:[id number] Age/Sex: 63 / F ADM Date: 08/31/18 Loc: ED Attending Dr: Ordering Physician: ESVIN TRAN MD Date of Service: 08/31/18 Procedure(s): XR chest 1V ap Accession Number(s): [id number] cc: ESVIN TRAN MD Fluoro Time In Minutes: AP CHEST: HISTORY: Shortness of breath, cough Compared to 07/14/18. Heart size appears borderline to mildly increased. Normal pulmonary vascularity. The lungs are clear. The bony structures are intact. IMPRESSION: Borderline heart size. Lungs clear. No acute process identified. Transcribed By: TTR Dictated By: NIRALI ESTRELLA JR, MD Electronically Authenticated By: NIRALI ESTRELLA JR, MD Signed Date/Time: 08/31/18 1132 DD/ 1132 TD/TT: 08/31/18 113 - Differential Diagnosis asthma exacerbation, bronchitis, pneumonia Critical care attestation.: If time is entered above; I have spent that time in minutes in the direct care of this critically ill patient, excluding procedure time. ED Disposition Clinical Impression: Acute asthma exacerbation, Shortness of breath Disposition: OP ADMIT IP TO THIS HOSP Is pt being admited?: Yes Does the pt Need Aspirin: Yes Condition: Fair Time of Disposition: 16:35 (Hospitalist notified (Dr Llanos))
[2018-08-31 11:34] LABS: Hematocrit 40.8 % (30.3-42.9); Hemoglobin 13.6 gm/dl (10.1-14.3); Mean Corpuscular HGB Conc 33 % (30-34); Platelet Count 234 K/mm3 (140-440)
--- NOTE | 2018-08-31 11:35 | XRay Report ---
AP CHEST: HISTORY: Shortness of breath, cough Compared to 07/14/18. Heart size appears borderline to mildly increased. Normal pulmonary vascularity. The lungs are clear. The bony structures are intact. IMPRESSION: Borderline heart size. Lungs clear. No acute process identified.
[2018-08-31 11:38] LABS: Mean Corpuscular Volume 110 fl (79-97)
[2018-08-31 11:48] LABS: BUN/Creatinine Ratio 20; Blood Urea Nitrogen 12 mg/dL (7-17); Calcium 8.9 mg/dL (8.4-10.2); Hemolysis Index 119
[2018-08-31] MEDS ORDERED: SOLU-Medrol IM ONE (11:56)
[2018-08-31 12:12] LABS: Basophils % (Manual) 0 % (0.0-1.8); Total Cells Counted 100
[2018-08-31 12:14] LABS: Anisocytosis 1+; Macrocytosis 1+; Ovalocytes Rare; Platelet Estimate Consistent w Auto; Poikilocytosis 1+
[2018-08-31] MEDS: MAGNESIUM SULFATE 2GM/50ML 2 GM/50 ML BAG IV ONE ×2 (12:14→18:51)
[2018-08-31] MEDS ORDERED: XOPENEX IH ONE ×2 (16:34)
[2018-08-31] MEDS ORDERED: HumuLIN R IV ONE (20:37)
[2018-08-31] MEDS ORDERED: SODIUM CHLORIDE FLUSH SYRINGE 10 ML IV PRN (20:40)
--- NOTE | 2018-08-31 21:19 | History and Physical Report ---
<ALONSO JEFFERSON - Last Filed: 08/31/18 23:38> History of Present Illness Date of examination: 08/31/18 Date of admission: 08/31/18 Chief complaint: SOB,wheezing x 3 History of present illness: Pt is a 63 BF with PMHx of asthma, CHF, HTN, HIV infection (on HAART), DM type 2, morbid obesity who presents to the ER with c/o of wheezing x 3 days. Pt states that she has been having problem breathing for 3 days now, she had been using her nebulizer treatment with some improvement in her symptoms. Pt also reports chills (feeling hot and cold) and productive cough with whitish sputum, she states that she had been feeling very ill with poor appetite and decrease energy. Pt states today the SOB became worse and she used her nebulizer tr eatment with no improvement on her symptoms she decided to come to the ER for evaluation. Past History Past Medical History: CAD, diabetes, heart failure, HIV/AIDS, hypertension, hyperlipidemia, other (obesity) Past Surgical History: No surgical history Social history: no significant social history, other (live with roomate) Medications and Allergies Allergies Allergy/AdvReac Type Severity Reaction Status Date / Time shellfish derived Allergy Severe Shortness Verified 06/13/18 09:11 of Breath ibuprofen [From Motrin] Allergy Mild Shortness Verified 06/13/18 09:11 of Breath tetracycline Allergy Shortness Verified 06/13/18 09:11 of Breath Home Medications Medication Instructions Recorded Confirmed Last Taken Type QUEtiapine [SEROquel] 200 mg PO QHS #30 tablet 07/29/17 08/31/18 1 Day Ago Rx ~07/13/18 amLODIPine [Norvasc] 5 mg PO QDAY #30 tablet 07/29/17 08/31/18 1 Day Ago Rx ~07/13/18 Albuterol Sulfate [Ventolin Hfa] 2 puff IH Q4-6H PRN 09/13/17 08/31/18 1 Day Ago History ~07/13/18 Phenytoin Sodium Extended 125 mg PO DAILY 30 Days capsule 09/15/17 08/31/18 1 Day Ago Rx [Dilantin] ~07/13/18 Furosemide [Lasix TAB] 40 mg PO QDAY 03/23/18 08/31/18 1 Day Ago History ~07/13/18 Genvoya Tablet 1 tab PO DAILY 03/23/18 08/31/18 1 Day Ago History ~07/13/18 Potassium Chloride [Klor-Con 10] 1 tab PO QDAY 03/23/18 08/31/18 1 Day Ago History ~07/13/18 Toujeo Solostar 25 units SUB-Q QPM 03/23/18 08/31/18 Unknown History Benzonatate [Tessalon Perles] 100 mg PO Q8HR PRN #20 capsule 07/07/18 08/31/18 Unknown Rx ALBUTEROL Inhaler(NF) [VENTOLIN 1 puff IH Q4HR PRN #1 inha 07/17/18 08/31/18 Unknown Rx Inhaler(NF)] Advair 250-50 Diskus 1 puff PO BID #1 07/17/18 08/31/18 Unknown Rx Insulin Regular, Human [HumuLIN R] 0 unit SQ AC #1 vial 07/17/18 08/31/18 Unknown Rx Prednisone [predniSONE 10 mg 10 mg PO .TAPER #1 tab.ds.pk 07/17/18 08/31/18 Unknown Rx (6-Day Pack, 21 Tabs)] Pantoprazole [Protonix TAB] 40 mg PO DAILY 08/31/18 08/31/18 Unknown History Active Meds: Active Medications Acetaminophen (Tylenol) 650 mg PO Q4H PRN PRN Reason: Pain MILD(1-3)/Fever >100.5/[facility] Albuterol/Ipratropium (Duoneb *Not For Prn Use*) 1 ampul IH Q6HRT [facility] Budesonide (Pulmicort) 0.5 mg IH Q12HRT [facility] Sodium Chloride (Nacl 0.9% 1000 Ml) 1,000 mls @ 75 mls/hr IV DIRECT [facility] Insulin Human Regular (Humulin R) 0 units SUB-Q ACHS [facility]; Protocol Methylprednisolone Sodium Succinate (Solu-Medrol) 40 mg IV Q8HR [facility] Ondansetron HCl (Zofran) 4 mg IV Q8H PRN PRN Reason: Nausea And Vomiting Sodium Chloride (Sodium Chloride Flush Syringe 10 Ml) 10 ml IV BID [facility] Sodium Chloride (Sodium Chloride Flush Syringe 10 Ml) 10 ml IV PRN PRN PRN Reason: LINE FLUSH Review of Systems Constitutional: fever, chills, anorexia, fatigue Respiratory: cough with sputum, wheezing Exam - Constitutional Vitals: Temp Pulse Resp BP Pulse Ox 98.2 F 116 H 14 135/74 99 08/31/18 19:30 08/31/18 19:30 08/31/18 19:30 08/31/18 19:30 08/31/18 19:30 General appearance: Present: mild distress - EENT Eyes: Present: EOM intact ENT: hearing intact, clear oral mucosa - Neck Neck: Present: normal ROM - Respiratory Respiratory effort: normal Respiratory: bilateral: wheezing - Cardiovascular Heart rate: 116 Rhythm: regular Heart Sounds: Present: S1 & S2 - Extremities Extremities: no ischemia Peripheral Pulses: within normal limits - Abdominal General gastrointestinal: Present: non-tender, non-distended Female genitourinary: Present: deferred - Rectal Rectal Exam: deferred - Integumentary Integumentary: Present: warm, dry - Musculoskeletal Musculoskeletal: strength equal bilaterally - Psychiatric Psychiatric: appropriate mood/affect, cooperative - Neurologic Neurologic: moves all extremities Results - Labs CBC & Chem 7: 08/31/18 11:08 08/31/18 11:08 Labs: Laboratory Last Values WBC 4.8 K/mm3 (4.5-11.0) 08/31/18 11:08 RBC 3.70 M/mm3 (3.65-5.03) 08/31/18 11:08 Hgb 13.6 gm/dl (10.1-14.3) 08/31/18 11:08 Hct 40.8 % (30.3-42.9) 08/31/18 11:08 MCV 110 fl (79-97) H 08/31/18 11:08 MCH 37 pg (28-32) H 08/31/18 11:08 MCHC 33 % (30-34) 08/31/18 11:08 RDW 14.0 % (13.2-15.2) 08/31/18 11:08 Plt Count 234 K/mm3 (140-440) 08/31/18 11:08 Add Manual Diff Complete 08/31/18 11:08 Total Counted 100 08/31/18 11:08 Seg Neutrophils % [place] 08/31/18 11:08 Seg Neuts % (Manual) 28.0 % (40.0-70.0) L 08/31/18 11:08 Band Neutrophils % 0 % 08/31/18 11:08 Lymphocytes % (Manual) 57.0 % (13.4-35.0) H 08/31/18 11:08 Reactive Lymphs % (Man) 0 % 08/31/18 11:08 Monocytes % (Manual) 12.0 % (0.0-7.3) H 08/31/18 11:08 Eosinophils % (Manual) 3.0 % (0.0-4.3) 08/31/18 11:08 Basophils % (Manual) 0 % (0.0-1.8) 08/31/18 11:08 Metamyelocytes % 0 % 08/31/18 11:08 Myelocytes % 0 % 08/31/18 11:08 Promyelocytes % 0 % 08/31/18 11:08 Blast Cells % 0 % 08/31/18 11:08 Nucleated RBC % Not Reportable 08/31/18 11:08 Seg Neutrophils # Man 1.3 K/mm3 (1.8-7.7) L 08/31/18 11:08 Band Neutrophils # 0.0 K/mm3 08/31/18 11:08 Lymphocytes # (Manual) 2.7 K/mm3 (1.2-5.4) 08/31/18 11:08 Abs React Lymphs (Man) 0.0 K/mm3 08/31/18 11:08 Monocytes # (Manual) 0.6 K/mm3 (0.0-0.8) 08/31/18 11:08 Eosinophils # (Manual) 0.1 K/mm3 (0.0-0.4) 08/31/18 11:08 Basophils # (Manual) 0.0 K/mm3 (0.0-0.1) 08/31/18 11:08 Metamyelocytes # 0.0 K/mm3 08/31/18 11:08 Myelocytes # 0.0 K/mm3 08/31/18 11:08 Promyelocytes # 0.0 K/mm3 08/31/18 11:08 Blast Cells # 0.0 K/mm3 08/31/18 11:08 WBC Morphology Not Reportable 08/31/18 11:08 Hypersegmented Neuts Not Reportable 08/31/18 11:08 Hyposegmented Neuts Not Reportable 08/31/18 11:08 Hypogranular Neuts Not Reportable 08/31/18 11:08 Smudge Cells Not Reportable 08/31/18 11:08 Toxic Granulation Not Reportable 08/31/18 11:08 Toxic Vacuolation Not Reportable 08/31/18 11:08 Dohle Bodies Not Reportable 08/31/18 11:08 Pelger-Huet Anomaly Not Reportable 08/31/18 11:08 Susan Rods Not Reportable 08/31/18 11:08 Platelet Estimate Consistent w auto 08/31/18 11:08 Clumped Platelets Not Reportable 08/31/18 11:08 Plt Clumps, EDTA Not Reportable 08/31/18 11:08 Large Platelets Not Reportable 08/31/18 11:08 Giant Platelets Not Reportable 08/31/18 11:08 Platelet Satelliting Not Reportable 08/31/18 11:08 Plt Morphology Comment Not Reportable 08/31/18 11:08 RBC Morphology Not Reportable 08/31/18 11:08 Dimorphic RBCs Not Reportable 08/31/18 11:08 Polychromasia Not Reportable 08/31/18 11:08 Hypochromasia Not Reportable 08/31/18 11:08 Poikilocytosis 1+ 08/31/18 11:08 Anisocytosis 1+ 08/31/18 11:08 Microcytosis Not Reportable 08/31/18 11:08 Macrocytosis 1+ 08/31/18 11:08 Spherocytes Not Reportable 08/31/18 11:08 Pappenheimer Bodies Not Reportable 08/31/18 11:08 Sickle Cells Not Reportable 08/31/18 11:08 Target Cells Not Reportable 08/31/18 11:08 Tear Drop Cells Not Reportable 08/31/18 11:08 Ovalocytes Rare 08/31/18 11:08 Helmet Cells Not Reportable 08/31/18 11:08 [place] Bodies Not Reportable 08/31/18 11:08 [place] Rings Not Reportable 08/31/18 11:08 Aileen Cells Not Reportable 08/31/18 11:08 Bite Cells Not Reportable 08/31/18 11:08 Crenated Cell Not Reportable 08/31/18 11:08 Elliptocytes Rare 08/31/18 11:08 Acanthocytes (Spur) Not Reportable 08/31/18 11:08 Rouleaux Not Reportable 08/31/18 11:08 Hemoglobin C Crystals Not Reportable 08/31/18 11:08 Schistocytes Not Reportable 08/31/18 11:08 Malaria parasites Not Reportable 08/31/18 11:08 Barry Bodies Not Reportable 08/31/18 11:08 Hem Pathologist Commnt No 08/31/18 11:08 Sodium 139 mmol/L (137-145) 08/31/18 11:08 Potassium 4.7 mmol/L (3.6-5.0) 08/31/18 11:08 Chloride 100.3 mmol/L (98-107) 08/31/18 11:08 Carbon Dioxide 23 mmol/L (22-30) 08/31/18 11:08 Anion Gap 20 mmol/L 08/31/18 11:08 BUN 12 mg/dL (7-17) 08/31/18 11:08 Creatinine 0.6 mg/dL (0.7-1.2) L 08/31/18 11:08 Estimated GFR > 60 ml/min 08/31/18 11:08 BUN/Creatinine Ratio 20 % 08/31/18 11:08 Glucose 316 mg/dL (65-100) H 08/31/18 11:08 POC Glucose > 500 (70-105) H 08/31/18 20:34 Calcium 8.9 mg/dL (8.4-10.2) 08/31/18 11:08 Assessment and Plan Assessment and plan: 1. Asthma with acute exacerbation 2. Acute dyspnea 3. CHF (stable) 4. Uncontrolled DM type 2 5. HTN (BP stable) 6. HIV infection (CD4 and viral load unknown) 7. Morbid obesity PLAN Pt is admitted to [facility] for asthma Continue nebulizer treatment PRN for SOB Pulmocort BID O2 to keep sat > 92% Solumedrol 40mg Q8hr Cough suppressant with Tessalon perle Accu check ACHS with insulin per sliding scale Add 10 units of insulin coverage while in steroid Resume home meds Further plan per hospital course Plan of care was d/w pt, voiced understanding Pt's condition and plan of care discussed with Dr Mckinnon Advance Directives: Yes VTE prophylaxis?: Mechanical Plan of care discussed with patient/family: Yes <RALPH MCKINNON - Last Filed: 09/01/18 02:44> History of Present Illness Date of admission: 08/31/18 20:40 Medications and Allergies Active Meds: Active Medications Acetaminophen (Tylenol) 650 mg PO Q4H PRN PRN Reason: Pain MILD(1-3)/Fever >100.5/MOYER Albuterol/Ipratropium (Duoneb *Not For Prn Use*) 1 ampul IH Q6HRT [facility] Last Admin: 09/01/18 02:06 Dose: 1 ampul Documented by: Amlodipine Besylate (Norvasc) 5 mg PO QDAY [facility] Arformoterol Tartrate (Brovana Nebu) 15 mcg IH Q12HRT [facility] Benzonatate (Tessalon Perles) 100 mg PO Q8HR [facility] Budesonide (Pulmicort) 0.5 mg IH Q12HRT [facility] Last Admin: 08/31/18 23:15 Dose: Not Given Documented by: Dextrose (D50w (25gm) Syringe) 50 ml IV PRN PRN PRN Reason: Hypoglycemia Furosemide (Lasix) 40 mg PO QDAY [facility] Sodium Chloride (Nacl 0.9% 1000 Ml) 1,000 mls @ 75 mls/hr IV DIRECT [facility] Last Admin: 08/31/18 21:37 Dose: 75 mls/hr Documented by: Insulin Glargine (Lantus) 10 units SUB-Q QHS [facility] Insulin Human Lispro (Humalog) 0 unit SUB-Q ACHS [facility]; Protocol Insulin Human Regular (Humulin R) 10 units IV ACHS [facility] Methylprednisolone Sodium Succinate (Solu-Medrol) 125 mg IV Q6HR [facility] Last Admin: 09/01/18 01:45 Dose: Not Given Documented by: Miscellaneous Medication (Genvoya Tablet) 1 tab PO DAILY [facility] Ondansetron HCl (Zofran) 4 mg IV Q8H PRN PRN Reason: Nausea And Vomiting Pantoprazole Sodium (Protonix) 40 mg PO DAILY [facility] Phenytoin (Dilantin) 125 mg PO DAILY [facility] Potassium Chloride (K-Dur) 10 meq PO QDAY [facility] Quetiapine Fumarate (Seroquel) 200 mg PO QHS [facility] Sodium Chloride (Sodium Chloride Flush Syringe 10 Ml) 10 ml IV BID [facility] Last Admin: 08/31/18 22:21 Dose: 10 ml Documented by: Sodium Chloride (Sodium Chloride Flush Syringe 10 Ml) 10 ml IV PRN PRN PRN Reason: LINE FLUSH Exam - Constitutional Vitals: Temp Pulse Resp BP Pulse Ox 98.2 F 90 20 135/74 99 08/31/18 19:30 09/01/18 01:55 09/01/18 01:55 08/31/18 19:30 08/31/18 19:30 Results - Labs CBC & Chem 7: 08/31/18 11:08 08/31/18 11:08 Labs: Laboratory Last Values WBC 4.8 K/mm3 (4.5-11.0) 08/31/18 11:08 RBC 3.70 M/mm3 (3.65-5.03) 08/31/18 11:08 Hgb 13.6 gm/dl (10.1-14.3) 08/31/18 11:08 Hct 40.8 % (30.3-42.9) 08/31/18 11:08 MCV 110 fl (79-97) H 08/31/18 11:08 MCH 37 pg (28-32) H 08/31/18 11:08 MCHC 33 % (30-34) 08/31/18 11:08 RDW 14.0 % (13.2-15.2) 08/31/18 11:08 Plt Count 234 K/mm3 (140-440) 08/31/18 11:08 Add Manual Diff Complete 08/31/18 11:08 Total Counted 100 08/31/18 11:08 Seg Neutrophils % [place] 08/31/18 11:08 Seg Neuts % (Manual) 28.0 % (40.0-70.0) L 08/31/18 11:08 Band Neutrophils % 0 % 08/31/18 11:08 Lymphocytes % (Manual) 57.0 % (13.4-35.0) H 08/31/18 11:08 Reactive Lymphs % (Man) 0 % 08/31/18 11:08 Monocytes % (Manual) 12.0 % (0.0-7.3) H 08/31/18 11:08 Eosinophils % (Manual) 3.0 % (0.0-4.3) 08/31/18 11:08 Basophils % (Manual) 0 % (0.0-1.8) 08/31/18 11:08 Metamyelocytes % 0 % 08/31/18 11:08 Myelocytes % 0 % 08/31/18 11:08 Promyelocytes % 0 % 08/31/18 11:08 Blast Cells % 0 % 08/31/18 11:08 Nucleated RBC % Not Reportable 08/31/18 11:08 Seg Neutrophils # Man 1.3 K/mm3 (1.8-7.7) L 08/31/18 11:08 Band Neutrophils # 0.0 K/mm3 08/31/18 11:08 Lymphocytes # (Manual) 2.7 K/mm3 (1.2-5.4) 08/31/18 11:08 Abs React Lymphs (Man) 0.0 K/mm3 08/31/18 11:08 Monocytes # (Manual) 0.6 K/mm3 (0.0-0.8) 08/31/18 11:08 Eosinophils # (Manual) 0.1 K/mm3 (0.0-0.4) 08/31/18 11:08 Basophils # (Manual) 0.0 K/mm3 (0.0-0.1) 08/31/18 11:08 Metamyelocytes # 0.0 K/mm3 08/31/18 11:08 Myelocytes # 0.0 K/mm3 08/31/18 11:08 Promyelocytes # 0.0 K/mm3 08/31/18 11:08 Blast Cells # 0.0 K/mm3 08/31/18 11:08 WBC Morphology Not Reportable 08/31/18 11:08 Hypersegmented Neuts Not Reportable 08/31/18 11:08 Hyposegmented Neuts Not Reportable 08/31/18 11:08 Hypogranular Neuts Not Reportable 08/31/18 11:08 Smudge Cells Not Reportable 08/31/18 11:08 Toxic Granulation Not Reportable 08/31/18 11:08 Toxic Vacuolation Not Reportable 08/31/18 11:08 Dohle Bodies Not Reportable 08/31/18 11:08 Pelger-Huet Anomaly Not Reportable 08/31/18 11:08 Susan Rods Not Reportable 08/31/18 11:08 Platelet Estimate Consistent w auto 08/31/18 11:08 Clumped Platelets Not Reportable 08/31/18 11:08 Plt Clumps, EDTA Not Reportable 08/31/18 11:08 Large Platelets Not Reportable 08/31/18 11:08 Giant Platelets Not Reportable 08/31/18 11:08 Platelet Satelliting Not Reportable 08/31/18 11:08 Plt Morphology Comment Not Reportable 08/31/18 11:08 RBC Morphology Not Reportable 08/31/18 11:08 Dimorphic RBCs Not Reportable 08/31/18 11:08 Polychromasia Not Reportable 08/31/18 11:08 Hypochromasia Not Reportable 08/31/18 11:08 Poikilocytosis 1+ 08/31/18 11:08 Anisocytosis 1+ 08/31/18 11:08 Microcytosis Not Reportable 08/31/18 11:08 Macrocytosis 1+ 08/31/18 11:08 Spherocytes Not Reportable 08/31/18 11:08 Pappenheimer Bodies Not Reportable 08/31/18 11:08 Sickle Cells Not Reportable 08/31/18 11:08 Target Cells Not Reportable 08/31/18 11:08 Tear Drop Cells Not Reportable 08/31/18 11:08 Ovalocytes Rare 08/31/18 11:08 Helmet Cells Not Reportable 08/31/18 11:08 [place] Bodies Not Reportable 08/31/18 11:08 [place] Rings Not Reportable 08/31/18 11:08 [place] Cells Not Reportable 08/31/18 11:08 Bite Cells Not Reportable 08/31/18 11:08 Crenated Cell Not Reportable 08/31/18 11:08 Elliptocytes Rare 08/31/18 11:08 Acanthocytes (Spur) Not Reportable 08/31/18 11:08 Rouleaux Not Reportable 08/31/18 11:08 Hemoglobin C Crystals Not Reportable 08/31/18 11:08 Schistocytes Not Reportable 08/31/18 11:08 Malaria parasites Not Reportable 08/31/18 11:08 Barry Bodies Not Reportable 08/31/18 11:08 Hem Pathologist Commnt No 08/31/18 11:08 Sodium 139 mmol/L (137-145) 08/31/18 11:08 Potassium 4.7 mmol/L (3.6-5.0) 08/31/18 11:08 Chloride 100.3 mmol/L (98-107) 08/31/18 11:08 Carbon Dioxide 23 mmol/L (22-30) 08/31/18 11:08 Anion Gap 20 mmol/L 08/31/18 11:08 BUN 12 mg/dL (7-17) 08/31/18 11:08 Creatinine 0.6 mg/dL (0.7-1.2) L 08/31/18 11:08 Estimated GFR > 60 ml/min 08/31/18 11:08 BUN/Creatinine Ratio 20 % 08/31/18 11:08 Glucose 316 mg/dL (65-100) H 08/31/18 11:08 POC Glucose 407 (70-105) H 09/01/18 01:32 Calcium 8.9 mg/dL (8.4-10.2) 08/31/18 11:08 Assessment and Plan Assessment and plan: 63-year-old woman with history of asthma, hypertension, diabetes, CHF, seizure, HIV, comes to the emergency room with complaining of shortness of breath 3 days, cough productive of white phlegm. Symptoms are not relieved with her neb ulizer treatments, physical exam significant for bilateral wheezing, decreased air entry. Agree with plan for asthma exacerbation, continue [facility] outpatient medications
[2018-08-31] MEDS: NACL 0.9% 1000 ML 1,000 ML IV SCH (21:37)
[2018-08-31] MEDS ORDERED: SOLU-Medrol IV SCH (22:00)
[2018-08-31] MEDS ORDERED: HumuLIN R SUB-Q SCH (22:00)
[2018-08-31] MEDS ORDERED: HumuLIN R ONE (22:16)
[2018-08-31] MEDS: SODIUM CHLORIDE FLUSH SYRINGE 10 ML IV SCH (22:21)
[2018-08-31] MEDS ORDERED: SOLU-Medrol ONE (22:22)
[2018-08-31] MEDS: PULMICORT IH SCH (23:15)
[2018-08-31] MEDS: DUONEB *Not for PRN Use IH SCH (23:15)
[2018-08-31] MEDS ORDERED: D50W (25GM) Syringe IV PRN (23:48)
[2018-09-01] MEDS: SOLU-Medrol IV SCH ×5 (01:45→23:37)
[2018-09-01] MEDS: DUONEB *Not for PRN Use IH SCH ×4 (02:06→19:50)
[2018-09-01] MEDS ORDERED: HumaLOG SUB-Q ONE (02:06)
[2018-09-01] MEDS: TESSALON PERLES PO SCH ×3 (06:14→21:44)
[2018-09-01 06:46] LABS: BUN/Creatinine Ratio 20; Blood Urea Nitrogen 10 mg/dL (7-17); Calcium 8.9 mg/dL (8.4-10.2); Hemolysis Index 28
[2018-09-01] MEDS: PULMICORT IH SCH ×2 (08:17→19:50)
[2018-09-01] MEDS: BROVANA NEBU IH SCH ×2 (08:17→19:50)
[2018-09-01] MEDS: HumuLIN R IV SCH ×2 (08:49→11:30)
[2018-09-01] MEDS: HumaLOG SUB-Q SCH ×5 (08:50→21:46)
[2018-09-01] MEDS ORDERED: POTASSIUM CHLORIDE PO SCH (10:00)
[2018-09-01] MEDS ORDERED: GENVOYA PO SCH (10:00)
[2018-09-01] MEDS ORDERED: ADVAIR PO SCH (10:00)
--- NOTE | 2018-09-01 10:53 | XRay Report ---
AP CHEST: HISTORY: Left arm PICC placement The left arm PICC terminates in the lower SVC. The chest is unchanged otherwise since 08/31/18. Heart size remains borderline. The lungs are clear. IMPRESSION: Left arm PICC as described.
[2018-09-01] MEDS: DILANTIN PO SCH (10:58)
[2018-09-01] MEDS: LASIX PO SCH (10:59)
[2018-09-01] MEDS: NORVASC PO SCH (10:59)
[2018-09-01] MEDS: PROTONIX PO SCH (10:59)
[2018-09-01] MEDS: K-DUR PO SCH (10:59)
[2018-09-01] MEDS: SODIUM CHLORIDE FLUSH SYRINGE 10 ML IV SCH ×2 (11:00→21:45)
--- NOTE | 2018-09-01 12:24 | Progress Note ---
Assessment and Plan Assessment and plan: SOB,wheezing x 3 History of present illness: Pt is a 63 BF with PMHx of asthma, CHF, HTN, HIV infection (on HAART), DM type 2, morbid obesity who presents to the ER with c/o of wheezing x 3 days. Pt states that she has been having problem breathing for 3 days now, she had been using her nebulizer treatment with some improvement in her symptoms. Pt also reports chills (feeling hot and cold) and productive cough with whitish sputum, she states that she had been feeling very ill with poor appetite and decrease energy. Pt states today the SOB became worse and she used her nebulizer treatment with no improvement on her symptoms she decided to come to the ER for evaluation. Past History Past Medical History: CAD, diabetes, heart failure, HIV/AIDS, hypertension, hyperlipidemia, other (obesity) 1. Asthma with acute exacerbation 2. Acute dyspnea 3. CHF (stable) 4. Uncontrolled DM type 2 5. HTN (BP stable) 6. HIV infection (CD4 and viral load unknown) 7. Morbid obesity -Copious foul-smelling vaginal discharge PLAN Pt is admitted to [facility] Continue nebulizer treatment PRN for SOB Pulmocort BID O2 to keep sat > 92% Solumedrol 40mg Q8hr Cough suppressant with Tessalon perle Accu check ACHS with insulin per sliding scale Resume home meds Further plan per hospital course Plan of care was d/w pt, voiced understanding -Patient is not sexually active, symptoms are most likely due to bacterial vaginosis, wet prep has been ordered to look for clue cells Advance Directives: Yes VTE prophylaxis?: Mechanical History Interval history: Complaining of copious foul-smelling vaginal discharge Review of systems Constitutional: No fevers, no malaise, no joint pains CVS: No chest pain, no orthopnea, no dyspnea on exertion, no pedal edema GI: No abdominal pain, no diarrhea, no vomiting, no constipation Respiratory: Complaining of shortness of breath and wheezing Hospitalist Physical - Physical exam Narrative exam: General.: Appears well, no distress, nontoxic HEENT: Moist mucous membranes, extraocular muscles intact, no lymphadenopathy Neck: supple Cardiac: S1-S2 heard Lungs: Decreased air entry, wheezing Abdomen: soft , nontender, nondistended, bowel sounds positive Extremities: no edema clubbing or cyanosis Skin: no rash or lesions Neurologic: no gross focal deficits Psych: calm, and cooperative - Constitutional Vitals: Temp Pulse Resp BP Pulse Ox 98.4 F 102 H 20 132/86 100 09/01/18 08:09 09/01/18 08:27 09/01/18 08:27 09/01/18 08:09 09/01/18 08:17 General appearance: Present: mild distress Results - Labs CBC & Chem 7: 09/02/18 Unknown 09/02/18 Unknown Labs: Laboratory Last Values WBC 4.8 K/mm3 (4.5-11.0) 08/31/18 11:08 RBC 3.70 M/mm3 (3.65-5.03) 08/31/18 11:08 Hgb 13.6 gm/dl (10.1-14.3) 08/31/18 11:08 Hct 40.8 % (30.3-42.9) 08/31/18 11:08 MCV 110 fl (79-97) H 08/31/18 11:08 MCH 37 pg (28-32) H 08/31/18 11:08 MCHC 33 % (30-34) 08/31/18 11:08 RDW 14.0 % (13.2-15.2) 08/31/18 11:08 Plt Count 234 K/mm3 (140-440) 08/31/18 11:08 Add Manual Diff Complete 08/31/18 11:08 Total Counted 100 08/31/18 11:08 Seg Neutrophils % Billing Adjudicator 08/31/18 11:08 Seg Neuts % (Manual) 28.0 % (40.0-70.0) L 08/31/18 11:08 Band Neutrophils % 0 % 08/31/18 11:08 Lymphocytes % (Manual) 57.0 % (13.4-35.0) H 08/31/18 11:08 Reactive Lymphs % (Man) 0 % 08/31/18 11:08 Monocytes % (Manual) 12.0 % (0.0-7.3) H 08/31/18 11:08 Eosinophils % (Manual) 3.0 % (0.0-4.3) 08/31/18 11:08 Basophils % (Manual) 0 % (0.0-1.8) 08/31/18 11:08 Metamyelocytes % 0 % 08/31/18 11:08 Myelocytes % 0 % 08/31/18 11:08 Promyelocytes % 0 % 08/31/18 11:08 Blast Cells % 0 % 08/31/18 11:08 Nucleated RBC % Not Reportable 08/31/18 11:08 Seg Neutrophils # Man 1.3 K/mm3 (1.8-7.7) L 08/31/18 11:08 Band Neutrophils # 0.0 K/mm3 08/31/18 11:08 Lymphocytes # (Manual) 2.7 K/mm3 (1.2-5.4) 08/31/18 11:08 Abs React Lymphs (Man) 0.0 K/mm3 08/31/18 11:08 Monocytes # (Manual) 0.6 K/mm3 (0.0-0.8) 08/31/18 11:08 Eosinophils # (Manual) 0.1 K/mm3 (0.0-0.4) 08/31/18 11:08 Basophils # (Manual) 0.0 K/mm3 (0.0-0.1) 08/31/18 11:08 Metamyelocytes # 0.0 K/mm3 08/31/18 11:08 Myelocytes # 0.0 K/mm3 08/31/18 11:08 Promyelocytes # 0.0 K/mm3 08/31/18 11:08 Blast Cells # 0.0 K/mm3 08/31/18 11:08 WBC Morphology Not Reportable 08/31/18 11:08 Hypersegmented Neuts Not Reportable 08/31/18 11:08 Hyposegmented Neuts Not Reportable 08/31/18 11:08 Hypogranular Neuts Not Reportable 08/31/18 11:08 Smudge Cells Not Reportable 08/31/18 11:08 Toxic Granulation Not Reportable 08/31/18 11:08 Toxic Vacuolation Not Reportable 08/31/18 11:08 Dohle Bodies Not Reportable 08/31/18 11:08 Pelger-Huet Anomaly Not Reportable 08/31/18 11:08 Susan Rods Not Reportable 08/31/18 11:08 Platelet Estimate Consistent w auto 08/31/18 11:08 Clumped Platelets Not Reportable 08/31/18 11:08 Plt Clumps, EDTA Not Reportable 08/31/18 11:08 Large Platelets Not Reportable 08/31/18 11:08 Giant Platelets Not Reportable 08/31/18 11:08 Platelet Satelliting Not Reportable 08/31/18 11:08 Plt Morphology Comment Not Reportable 08/31/18 11:08 RBC Morphology Not Reportable 08/31/18 11:08 Dimorphic RBCs Not Reportable 08/31/18 11:08 Polychromasia Not Reportable 08/31/18 11:08 Hypochromasia Not Reportable 08/31/18 11:08 Poikilocytosis 1+ 08/31/18 11:08 Anisocytosis 1+ 08/31/18 11:08 Microcytosis Not Reportable 08/31/18 11:08 Macrocytosis 1+ 08/31/18 11:08 Spherocytes Not Reportable 08/31/18 11:08 Pappenheimer Bodies Not Reportable 08/31/18 11:08 Sickle Cells Not Reportable 08/31/18 11:08 Target Cells Not Reportable 08/31/18 11:08 Tear Drop Cells Not Reportable 08/31/18 11:08 Ovalocytes Rare 08/31/18 11:08 Helmet Cells Not Reportable 08/31/18 11:08 [place] Bodies Not Reportable 08/31/18 11:08 [place] Rings Not Reportable 08/31/18 11:08 Aileen Cells Not Reportable 08/31/18 11:08 Bite Cells Not Reportable 08/31/18 11:08 Crenated Cell Not Reportable 08/31/18 11:08 Elliptocytes Rare 08/31/18 11:08 Acanthocytes (Spur) Not Reportable 08/31/18 11:08 [place] Not Reportable 08/31/18 11:08 Hemoglobin C Crystals Not Reportable 08/31/18 11:08 Schistocytes Not Reportable 08/31/18 11:08 [place] parasites Not Reportable 08/31/18 11:08 [place] Bodies Not Reportable 08/31/18 11:08 Hem Pathologist Commnt No 08/31/18 11:08 Sodium 137 mmol/L (137-145) 09/01/18 05:54 Potassium 3.2 mmol/L (3.6-5.0) L D 09/01/18 05:54 Chloride 100.6 mmol/L (98-107) 09/01/18 05:54 Carbon Dioxide 23 mmol/L (22-30) 09/01/18 05:54 Anion Gap 17 mmol/L 09/01/18 05:54 BUN 10 mg/dL (7-17) 09/01/18 05:54 Creatinine 0.5 mg/dL (0.7-1.2) L 09/01/18 05:54 Estimated GFR > 60 ml/min 09/01/18 05:54 BUN/Creatinine Ratio 20 % 09/01/18 05:54 Glucose 257 mg/dL (65-100) H 09/01/18 05:54 POC Glucose 211 (70-105) H 09/01/18 06:18 Calcium 8.9 mg/dL (8.4-10.2) 09/01/18 05:54
[2018-09-01 16:11] LABS: Hematocrit 36.2 % (30.3-42.9); Hemoglobin 12.9 gm/dl (10.1-14.3)
[2018-09-01] MEDS ORDERED: HumaLOG SUB-Q SCH (16:30)
[2018-09-01] MEDS: FLAGYL PO SCH ×2 (17:28→21:44)
[2018-09-01] MEDS: TYLENOL PO PRN (20:39)
[2018-09-01] MEDS: ZOFRAN IV PRN (20:39)
[2018-09-01] MEDS ORDERED: LANTUS SUB-Q SCH ×2 (22:00)
[2018-09-01 23:20] LABS: Bilirubin,Urine NEG (Negative); Blood,Urine SM (Negative); Color,Urine Yellow (Yellow); Hyaline Casts,Urine 1 /LPF; Mucus,Urine FEW /HPF; Protein,Urine <15 mg/dL mg/dL (Negative); Urobilinogen,Urine < 2.0 mg/dL (<2.0)
[2018-09-01] MEDS: NACL 0.9% 1000 ML 1,000 ML IV SCH (23:37)
[2018-09-02] MEDS: DUONEB *Not for PRN Use IH SCH ×4 (02:59→21:10)
[2018-09-02] MEDS: SOLU-Medrol IV SCH ×3 (06:16→19:20)
[2018-09-02] MEDS: TESSALON PERLES PO SCH ×3 (06:16→22:09)
[2018-09-02 06:37] LABS: Basophils % (Auto) 0.2 % (0.0-1.8); Hematocrit 35.6 % (30.3-42.9); Hemoglobin 12.1 gm/dl (10.1-14.3); Lymphocytes # (Auto) 0.9 K/mm3 (1.2-5.4); Lymphocytes % (Auto) 16.3 % (13.4-35.0); Mean Corpuscular HGB Conc 34 % (30-34); Mean Corpuscular Volume 110 fl (79-97); Monocytes # (Auto) 0.2 K/mm3 (0.0-0.8); Platelet Count 217 K/mm3 (140-440); Red Blood Count 3.23 M/mm3 (3.65-5.03); Red Cell Distribution Width 14.7 % (13.2-15.2)
[2018-09-02 06:57] LABS: Alanine Aminotransferase 9 units/L (7-56); Albumin 3.8 g/dL (3.9-5); BUN/Creatinine Ratio 20; Blood Urea Nitrogen 14 mg/dL (7-17); Calcium 8.7 mg/dL (8.4-10.2); Hemolysis Index 0
[2018-09-02 07:12] LABS: Bilirubin,Direct < 0.2 mg/dL (0-0.2)
--- NOTE | 2018-09-02 08:24 | Progress Note ---
Assessment and Plan Assessment and plan: SOB,wheezing x 3 History of present illness: Pt is a 63 BF with PMHx of asthma, CHF, HTN, HIV infection (on HAART), DM type 2, morbid obesity who presents to the ER with c/o of wheezing x 3 days. Pt states that she has been having problem breathing for 3 days now, she had been using her nebulizer treatment with some improvement in her symptoms. Pt also reports chills (feeling hot and cold) and productive cough with whitish sputum, she states that she had been feeling very ill with poor appetite and decrease energy. Pt states today the SOB became worse and she used her nebulizer treatment with no improvement on her symptoms she decided to come to the ER for evaluation. Past History Past Medical History: CAD, diabetes, heart failure, HIV/AIDS, hypertension, hyperlipidemia, other (obesity) 1. Asthma with acute exacerbation 2. Acute dyspnea 3. CHF (stable) 4. Uncontrolled DM type 2 5. HTN (BP stable) 6. HIV infection (CD4 and viral load unknown) 7. Morbid obesity -Copious foul-smelling vaginal discharge -bloody stools, GIB PLAN cont steroids nebs and chest PT, and oxygen prn optimize insulins resume home meds -Patient is not sexually active, symptoms are most likely due to bacterial vaginosis, wet prep has been ordered to look for clue cells, nurses refusing to do vaginal swab even though within their scope of practice, spoke to DON, there is no written policy precluding RN from completing, the order, awaiting d irections from nursing leadership, cont empiric flagyl for now Hg stable, GI input appreciated likely hemorrhoidal bleed - Advance Directives: Yes VTE prophylaxis?: chemical History Interval history: Complaining of copious foul-smelling vaginal discharge Review of systems Constitutional: No fevers, no malaise, no joint pains CVS: No chest pain, no orthopnea, no dyspnea on exertion, no pedal edema GI: No abdominal pain, no diarrhea, no vomiting, no constipation Respiratory: Complaining of shortness of breath and wheezing Hospitalist Physical - Physical exam Narrative exam: General.: Appears well, no distress, nontoxic HEENT: Moist mucous membranes, extraocular muscles intact, no lymphadenopathy Neck: supple Cardiac: S1-S2 heard Lungs: Decreased air entry, wheezing Abdomen: soft , nontender, nondistended, bowel sounds positive Extremities: no edema clubbing or cyanosis Skin: no rash or lesions Neurologic: no gross focal deficits Psych: calm, and cooperative - Constitutional Vitals: Temp Pulse Resp BP Pulse Ox 97.7 F 105 H 18 148/117 95 09/02/18 08:13 09/02/18 08:13 09/02/18 08:13 09/02/18 08:13 09/02/18 08:13 General appearance: Present: mild distress Results - Labs CBC & Chem 7: 09/02/18 Unknown 09/02/18 Unknown Labs: Laboratory Last Values WBC 5.5 K/mm3 (4.5-11.0) 09/02/18 Unknown RBC 3.23 M/mm3 (3.65-5.03) L 09/02/18 Unknown Hgb 12.1 gm/dl (10.1-14.3) 09/02/18 Unknown Hct 35.6 % (30.3-42.9) 09/02/18 Unknown MCV 110 fl (79-97) H 09/02/18 Unknown MCH 37 pg (28-32) H 09/02/18 Unknown MCHC 34 % (30-34) 09/02/18 Unknown RDW 14.7 % (13.2-15.2) 09/02/18 Unknown Plt Count 217 K/mm3 (140-440) 09/02/18 Unknown Lymph % (Auto) 16.3 % (13.4-35.0) 09/02/18 Unknown [place] % (Auto) 3.0 % (0.0-7.3) 09/02/18 Unknown Eos % (Auto) 0.0 % (0.0-4.3) 09/02/18 Unknown Baso % (Auto) 0.2 % (0.0-1.8) 09/02/18 Unknown Lymph # 0.9 K/mm3 (1.2-5.4) L 09/02/18 Unknown [place] # 0.2 K/mm3 (0.0-0.8) 09/02/18 Unknown Eos # 0.0 K/mm3 (0.0-0.4) 09/02/18 Unknown Baso # 0.0 K/mm3 (0.0-0.1) 09/02/18 Unknown Add Manual Diff Complete 08/31/18 11:08 Total Counted 100 08/31/18 11:08 Seg Neutrophils % 80.5 % (40.0-70.0) H 09/02/18 Unknown Seg Neuts % (Manual) 28.0 % (40.0-70.0) L 08/31/18 11:08 Band Neutrophils % 0 % 08/31/18 11:08 Lymphocytes % (Manual) 57.0 % (13.4-35.0) H 08/31/18 11:08 Reactive Lymphs % (Man) 0 % 08/31/18 11:08 Monocytes % (Manual) 12.0 % (0.0-7.3) H 08/31/18 11:08 Eosinophils % (Manual) 3.0 % (0.0-4.3) 08/31/18 11:08 Basophils % (Manual) 0 % (0.0-1.8) 08/31/18 11:08 Metamyelocytes % 0 % 08/31/18 11:08 Myelocytes % 0 % 08/31/18 11:08 Promyelocytes % 0 % 08/31/18 11:08 Blast Cells % 0 % 08/31/18 11:08 Nucleated RBC % Not Reportable 08/31/18 11:08 Seg Neutrophils # 4.4 K/mm3 (1.8-7.7) 09/02/18 Unknown Seg Neutrophils # Man 1.3 K/mm3 (1.8-7.7) L 08/31/18 11:08 Band Neutrophils # 0.0 K/mm3 08/31/18 11:08 Lymphocytes # (Manual) 2.7 K/mm3 (1.2-5.4) 08/31/18 11:08 Abs React Lymphs (Man) 0.0 K/mm3 08/31/18 11:08 Monocytes # (Manual) 0.6 K/mm3 (0.0-0.8) 08/31/18 11:08 Eosinophils # (Manual) 0.1 K/mm3 (0.0-0.4) 08/31/18 11:08 Basophils # (Manual) 0.0 K/mm3 (0.0-0.1) 08/31/18 11:08 Metamyelocytes # 0.0 K/mm3 08/31/18 11:08 Myelocytes # 0.0 K/mm3 08/31/18 11:08 Promyelocytes # 0.0 K/mm3 08/31/18 11:08 Blast Cells # 0.0 K/mm3 08/31/18 11:08 WBC Morphology Not Reportable 08/31/18 11:08 Hypersegmented Neuts Not Reportable 08/31/18 11:08 Hyposegmented Neuts Not Reportable 08/31/18 11:08 Hypogranular Neuts Not Reportable 08/31/18 11:08 Smudge Cells Not Reportable 08/31/18 11:08 Toxic Granulation Not Reportable 08/31/18 11:08 Toxic Vacuolation Not Reportable 08/31/18 11:08 Dohle Bodies Not Reportable 08/31/18 11:08 Pelger-Huet Anomaly Not Reportable 08/31/18 11:08 Susan Rods Not Reportable 08/31/18 11:08 Platelet Estimate Consistent w auto 08/31/18 11:08 Clumped Platelets Not Reportable 08/31/18 11:08 Plt Clumps, EDTA Not Reportable 08/31/18 11:08 Large Platelets Not Reportable 08/31/18 11:08 Giant Platelets Not Reportable 08/31/18 11:08 Platelet Satelliting Not Reportable 08/31/18 11:08 Plt Morphology Comment Not Reportable 08/31/18 11:08 RBC Morphology Not Reportable 08/31/18 11:08 Dimorphic RBCs Not Reportable 08/31/18 11:08 Polychromasia Not Reportable 08/31/18 11:08 Hypochromasia Not Reportable 08/31/18 11:08 Poikilocytosis 1+ 08/31/18 11:08 Anisocytosis 1+ 08/31/18 11:08 Microcytosis Not Reportable 08/31/18 11:08 Macrocytosis 1+ 08/31/18 11:08 Spherocytes Not Reportable 08/31/18 11:08 Pappenheimer Bodies Not Reportable 08/31/18 11:08 Sickle Cells Not Reportable 08/31/18 11:08 Target Cells Not Reportable 08/31/18 11:08 Tear Drop Cells Not Reportable 08/31/18 11:08 Ovalocytes Rare 08/31/18 11:08 Helmet Cells Not Reportable 08/31/18 11:08 Ochoa-Witt Bodies Not Reportable 08/31/18 11:08 [place]ne Rings Not Reportable 08/31/18 11:08 Aileen Cells Not Reportable 08/31/18 11:08 Bite Cells Not Reportable 08/31/18 11:08 Crenated Cell Not Reportable 08/31/18 11:08 Elliptocytes Rare 08/31/18 11:08 Acanthocytes (Spur) Not Reportable 08/31/18 11:08 Rouleaux Not Reportable 08/31/18 11:08 Hemoglobin C Crystals Not Reportable 08/31/18 11:08 Schistocytes Not Reportable 08/31/18 11:08 Malaria parasites Not Reportable 08/31/18 11:08 Barry Bodies Not Reportable 08/31/18 11:08 Hem Pathologist Commnt No 08/31/18 11:08 Sodium 141 mmol/L (137-145) 09/02/18 Unknown Potassium 3.3 mmol/L (3.6-5.0) L 09/02/18 Unknown Chloride 101.7 mmol/L (98-107) 09/02/18 Unknown Carbon Dioxide 28 mmol/L (22-30) 09/02/18 Unknown Anion Gap 15 mmol/L 09/02/18 Unknown BUN 14 mg/dL (7-17) 09/02/18 Unknown Creatinine 0.7 mg/dL (0.7-1.2) 09/02/18 Unknown Estimated GFR > 60 ml/min 09/02/18 Unknown BUN/Creatinine Ratio 20 % 09/02/18 Unknown Glucose 413 mg/dL (65-100) H 09/02/18 Unknown POC Glucose 318 (70-105) H 09/02/18 06:02 Hemoglobin A1c 14.4 % (4-6) H 09/02/18 Unknown Calcium 8.7 mg/dL (8.4-10.2) 09/02/18 Unknown Total Bilirubin 0.30 mg/dL (0.1-1.2) 09/02/18 Unknown Direct Bilirubin < 0.2 mg/dL (0-0.2) 09/02/18 Unknown Indirect Bilirubin 0.1 mg/dL 09/02/18 Unknown AST 10 units/L (5-40) 09/02/18 Unknown ALT 9 units/L (7-56) 09/02/18 Unknown Alkaline Phosphatase 129 units/L (35-129) 09/02/18 Unknown Total Protein 6.7 g/dL (6.3-8.2) 09/02/18 Unknown Albumin 3.8 g/dL (3.9-5) L 09/02/18 Unknown Albumin/Globulin Ratio 1.3 % 09/02/18 Unknown Urine Color Yellow (Yellow) 09/01/18 22:41 Urine Turbidity Clear (Clear) 09/01/18 22:41 Urine pH 5.0 (5.0-7.0) 09/01/18 22:41 Ur Specific [place] 1.027 (1.003-1.030) 09/01/18 22:41 Urine Protein <15 mg/dl mg/dL (Negative) 09/01/18 22:41 Urine Glucose (UA) >=500 mg/dL (Negative) 09/01/18 22:41 Urine Ketones Neg mg/dL (Negative) 09/01/18 22:41 Urine Blood Sm (Negative) 09/01/18 22:41 Urine Nitrite Neg (Negative) 09/01/18 22:41 Urine Bilirubin Neg (Negative) 09/01/18 22:41 Urine Urobilinogen < 2.0 mg/dL (<2.0) 09/01/18 22:41 Ur Leukocyte Esterase Tr (Negative) 09/01/18 22:41 Urine WBC (Auto) 4.0 /HPF (0.0-6.0) 09/01/18 22:41 Urine RBC (Auto) 2.0 /HPF (0.0-6.0) 09/01/18 22:41 U Epithel Cells (Auto) 5.0 /HPF (0-13.0) 09/01/18 22:41 Hyaline Casts 1 /LPF 09/01/18 22:41 Urine Mucus Few /HPF 09/01/18 22:41
--- NOTE | 2018-09-02 09:04 | Gastroenterology Consultation ---
History of Present Illness - Reason for Consult Consult date: 09/02/18 Blood in stool Requesting physician: DIONNA CASTAÑEDA - History of Present Illness The patient was admitted for wheezing, either flare of asthma or CHF (patient has both). She is symptomatically better on nebulizers. She noted that she has had blood (BRB) in her stools, and we were consulted. She has about 3 BM/day, with occasional anal pain from straining. She has no diarrhea, and no abnormal weight loss or severe abdominal pain. A colonoscopy in 2017 (by me) showed hemorrhoids, and tics, but no other significant lesions (prep was only fair). She has a normal hct here. Past History Past Medical History: CAD, diabetes, heart failure, HIV/AIDS, hypertension, hyperlipidemia, other (obesity) Past Surgical History: No surgical history Social history: no significant social history, other (live with roomate) Medications and Allergies Allergies Allergy/AdvReac Type Severity Reaction Status Date / Time shellfish derived Allergy Severe Shortness Verified 06/13/18 09:11 of Breath ibuprofen [From Motrin] Allergy Mild Shortness Verified 06/13/18 09:11 of Breath tetracycline Allergy Shortness Verified 06/13/18 09:11 of Breath Home Medications Medication Instructions Recorded Confirmed Last Taken Type QUEtiapine [SEROquel] 200 mg PO QHS #30 tablet 07/29/17 08/31/18 1 Day Ago Rx ~07/13/18 amLODIPine [Norvasc] 5 mg PO QDAY #30 tablet 07/29/17 08/31/18 1 Day Ago Rx ~07/13/18 Albuterol Sulfate [Ventolin Hfa] 2 puff IH Q4-6H PRN 09/13/17 08/31/18 1 Day Ago History ~07/13/18 Phenytoin Sodium Extended 125 mg PO DAILY 30 Days capsule 09/15/17 08/31/18 1 Day Ago Rx [Dilantin] ~07/13/18 Furosemide [Lasix TAB] 40 mg PO QDAY 03/23/18 08/31/18 1 Day Ago History ~07/13/18 Genvoya Tablet 1 tab PO DAILY 03/23/18 08/31/18 1 Day Ago History ~07/13/18 Potassium Chloride [Klor-Con 10] 1 tab PO QDAY 03/23/18 08/31/18 1 Day Ago History ~07/13/18 Gonzalo Shultz 25 units SUB-Q QPM 03/23/18 08/31/18 Unknown History Benzonatate [Tessalon Perles] 100 mg PO Q8HR PRN #20 capsule 07/07/18 08/31/18 Unknown Rx ALBUTEROL Inhaler(NF) [VENTOLIN 1 puff IH Q4HR PRN #1 inha 07/17/18 08/31/18 Unknown Rx Inhaler(NF)] Advair 250-50 Diskus 1 puff PO BID #1 07/17/18 08/31/18 Unknown Rx Insulin Regular, Human [HumuLIN R] 0 unit SQ AC #1 vial 07/17/18 08/31/18 Unknown Rx Prednisone [predniSONE 10 mg 10 mg PO .TAPER #1 tab.ds.pk 07/17/18 08/31/18 Unknown Rx (6-Day Pack, 21 Tabs)] Pantoprazole [Protonix TAB] 40 mg PO DAILY 08/31/18 08/31/18 Unknown History Active Meds: Active Medications Acetaminophen (Tylenol) 650 mg PO Q4H PRN PRN Reason: Pain MILD(1-3)/Fever >100.5/MOYER Last Admin: 09/01/18 20:39 Dose: 650 mg Documented by: Albuterol/Ipratropium (Duoneb *Not For Prn Use*) 1 ampul IH Q6HRT [facility] Last Admin: 09/02/18 02:59 Dose: Not Given Documented by: Amlodipine Besylate (Norvasc) 5 mg PO QDAY [facility] Last Admin: 09/01/18 10:59 Dose: 5 mg Documented by: Arformoterol Tartrate (Brovana Nebu) 15 mcg IH Q12HRT [facility] Last Admin: 09/01/18 19:50 Dose: 15 mcg Documented by: Benzonatate (Tessalon Perles) 100 mg PO Q8HR [facility] Last Admin: 09/02/18 06:16 Dose: 100 mg Documented by: Budesonide (Pulmicort) 0.5 mg IH Q12HRT [facility] Last Admin: 09/01/18 19:50 Dose: 0.5 mg Documented by: Dextrose (D50w (25gm) Syringe) 50 ml IV PRN PRN PRN Reason: Hypoglycemia Furosemide (Lasix) 40 mg PO QDAY [facility] Last Admin: 09/01/18 10:59 Dose: 40 mg Documented by: Sodium Chloride (Nacl 0.9% 1000 Ml) 1,000 mls @ 75 mls/hr IV DIRECT [facility] Last Admin: 09/01/18 23:37 Dose: 75 mls/hr Documented by: Insulin Glargine (Lantus) 45 units SUB-Q QHS [facility] Insulin Human Lispro (Humalog) 0 unit SUB-Q ACHS [facility]; Protocol Last Admin: 09/01/18 21:46 Dose: 4 unit Documented by: Insulin Human Lispro (Humalog) 15 unit SUB-Q AC [facility] Methylprednisolone Sodium Succinate (Solu-Medrol) 125 mg IV Q6HR [facility] Last Admin: 09/02/18 06:16 Dose: 125 mg Documented by: Metronidazole (Flagyl) 500 mg PO BID [facility]; Protocol Stop: 09/08/18 16:59 Last Admin: 09/01/18 21:44 Dose: 500 mg Documented by: Miscellaneous Medication (Genvoya Tablet) 1 tab PO DAILY [facility] Ondansetron HCl (Zofran) 4 mg IV Q8H PRN PRN Reason: Nausea And Vomiting Last Admin: 09/01/18 20:39 Dose: 4 mg Documented by: Pantoprazole Sodium (Protonix) 40 mg PO DAILY [facility] Last Admin: 09/01/18 10:59 Dose: 40 mg Documented by: Phenytoin (Dilantin) 125 mg PO DAILY [facility] Last Admin: 09/01/18 10:58 Dose: 125 mg Documented by: Potassium Chloride (K-Dur) 10 meq PO QDAY [facility] Last Admin: 09/01/18 10:59 Dose: 10 meq Documented by: Potassium Chloride (K-Dur) 40 meq PO ONCE ONE Stop: 09/02/18 08:26 Quetiapine Fumarate (Seroquel) 200 mg PO QHS [facility] Last Admin: 09/01/18 21:44 Dose: 200 mg Documented by: Sodium Chloride (Sodium Chloride Flush Syringe 10 Ml) 10 ml IV BID [facility] Last Admin: 09/01/18 21:45 Dose: 10 ml Documented by: Sodium Chloride (Sodium Chloride Flush Syringe 10 Ml) 10 ml IV PRN PRN PRN Reason: LINE FLUSH I HAVE REVIEWED AND RECONCILED MEDICATIONS Review of Systems - Review of Systems All systems: negative (as noted in the HPI) Exam - Constitutional Vital Signs: Temp Pulse Resp BP Pulse Ox 97.7 F 105 H 18 148/117 95 09/02/18 08:13 09/02/18 08:13 09/02/18 08:13 09/02/18 08:13 09/02/18 08:13 General appearance: no acute distress - EENT Eyes: PERRL, EOM intact ENT: hearing intact, clear oral mucosa - Neck Neck: supple, normal ROM - Respiratory Respiratory effort: normal Respiratory: bilateral: wheezing - Cardiovascular Rhythm: regular Heart Sounds: Present: S1 & S2 Extremities: no ischemia Extremity abnormal: edema (1+ in ankles) - Gastrointestinal General gastrointestinal: Present: soft, non-tender, non-distended - Integumentary Integumentary: Present: clear, warm, dry - Neurologic Neurological: alert and oriented x3 - Labs CBC & Chem 7: 09/02/18 Unknown 09/02/18 Unknown Lab Results: Laboratory Results - last 24 hr 09/01/18 09/01/18 09/01/18 12:51 15:35 16:36 WBC RBC Hgb 12.9 Hct 36.2 MCV MCH MCHC RDW Plt Count Lymph % (Auto) [place] % (Auto) Eos % (Auto) Baso % (Auto) Lymph # [place] # Eos # Baso # Seg Neutrophils % Seg Neutrophils # Sodium Potassium Chloride Carbon Dioxide Anion Gap BUN Creatinine Estimated GFR BUN/Creatinine Ratio Glucose POC Glucose 339 H 354 H Hemoglobin A1c Calcium Total Bilirubin Direct Bilirubin Indirect Bilirubin AST ALT Alkaline Phosphatase Total Protein Albumin Albumin/Globulin Ratio Urine Color Urine Turbidity Urine pH Ur Specific [place] Urine Protein Urine Glucose (UA) Urine Ketones Urine Blood Urine Nitrite Urine Bilirubin Urine Urobilinogen Ur Leukocyte Esterase Urine WBC (Auto) Urine RBC (Auto) U Epithel Cells (Auto) Hyaline Casts Urine Mucus 09/01/18 09/01/18 09/02/18 21:19 22:41 06:02 WBC RBC Hgb Hct MCV MCH MCHC RDW Plt Count Lymph % (Auto) [place] % (Auto) Eos % (Auto) Baso % (Auto) Lymph # [place] # Eos # Baso # Seg Neutrophils % Seg Neutrophils # Sodium Potassium Chloride Carbon Dioxide Anion Gap BUN Creatinine Estimated GFR BUN/Creatinine Ratio Glucose POC Glucose 203 H 318 H Hemoglobin A1c Calcium Total Bilirubin Direct Bilirubin Indirect Bilirubin AST ALT Alkaline Phosphatase Total Protein Albumin Albumin/Globulin Ratio Urine Color Yellow Urine Turbidity Clear Urine pH 5.0 Ur Specific [place] 1.027 Urine Protein <15 mg/dl Urine Glucose (UA) >=500 Urine Ketones Neg Urine Blood Sm Urine Nitrite Neg Urine Bilirubin Neg Urine Urobilinogen < 2.0 Ur Leukocyte Esterase Tr Urine WBC (Auto) 4.0 Urine RBC (Auto) 2.0 U Epithel Cells (Auto) 5.0 Hyaline Casts 1 Urine Mucus Few 09/02/18 09/02/18 09/02/18 Unknown Unknown Unknown WBC 5.5 RBC 3.23 L Hgb 12.1 Hct 35.6 MCV 110 H MCH 37 H MCHC 34 RDW 14.7 Plt Count 217 Lymph % (Auto) 16.3 [place] % (Auto) 3.0 Eos % (Auto) 0.0 Baso % (Auto) 0.2 Lymph # 0.9 L [place] # 0.2 Eos # 0.0 Baso # 0.0 Seg Neutrophils % 80.5 H Seg Neutrophils # 4.4 Sodium 141 Potassium 3.3 L Chloride 101.7 Carbon Dioxide 28 Anion Gap 15 BUN 14 Creatinine 0.7 Estimated GFR > 60 BUN/Creatinine Ratio 20 Glucose 413 H POC Glucose Hemoglobin A1c 14.4 H Calcium 8.7 Total Bilirubin 0.30 Direct Bilirubin < 0.2 Indirect Bilirubin 0.1 AST 10 ALT 9 Alkaline Phosphatase 129 Total Protein 6.7 Albumin 3.8 L Albumin/Globulin Ratio 1.3 Urine Color Urine Turbidity Urine pH Ur Specific [place] Urine Protein Urine Glucose (UA) Urine Ketones Urine Blood Urine Nitrite Urine Bilirubin Urine Urobilinogen Ur Leukocyte Esterase Urine WBC (Auto) Urine RBC (Auto) U Epithel Cells (Auto) Hyaline Casts Urine Mucus Assessment and Plan - Patient Problems (1) Rectal bleeding Current Visit: Yes Status: Acute Plan to address problem: - Colon 2017 with hemorrhoids (fair prep). - Hct WNL, and not bleeding between BMs. - Likely flare of hemorrhoids given anal pain; will add anusol. - No plans for endoscopy since hct WNL and bleeding is minor; will sign off; patient may f/u with us in the clinic. Please call if needed.
[2018-09-02] MEDS: PULMICORT IH SCH ×2 (09:18→21:10)
[2018-09-02] MEDS: BROVANA NEBU IH SCH ×2 (09:18→21:42)
[2018-09-02] MEDS: PROTONIX PO SCH (10:15)
[2018-09-02] MEDS: FLAGYL PO SCH ×2 (10:15→22:09)
[2018-09-02] MEDS: DILANTIN PO SCH (10:16)
[2018-09-02] MEDS: K-DUR PO SCH (10:16)
[2018-09-02] MEDS: LASIX PO SCH (10:16)
[2018-09-02] MEDS: HumaLOG SUB-Q SCH ×6 (10:22→22:09)
[2018-09-02] MEDS: NORVASC PO SCH (10:24)
[2018-09-02] MEDS ORDERED: K-DUR PO NR (10:30)
[2018-09-02] MEDS: ZOFRAN IV PRN ×2 (11:09→20:27)
[2018-09-02] MEDS: SODIUM CHLORIDE FLUSH SYRINGE 10 ML IV SCH ×2 (14:00→22:11)
[2018-09-02] MEDS: TYLENOL PO PRN (20:26)
[2018-09-02] MEDS: LOVENOX SUB-Q SCH (22:09)
[2018-09-02] MEDS: LANTUS SUB-Q SCH (22:10)
[2018-09-03] MEDS: SOLU-Medrol IV SCH ×5 (00:01→23:32)
[2018-09-03] MEDS: HumaLOG SUB-Q SCH ×8 (00:06→21:12)
[2018-09-03] MEDS: DUONEB *Not for PRN Use IH SCH ×4 (02:15→19:59)
[2018-09-03] MEDS: TESSALON PERLES PO SCH ×3 (06:00→21:09)
[2018-09-03] MEDS: LASIX PO SCH (10:09)
[2018-09-03] MEDS: PROTONIX PO SCH (10:09)
[2018-09-03] MEDS: DILANTIN PO SCH (10:09)
[2018-09-03] MEDS: K-DUR PO SCH (10:09)
[2018-09-03] MEDS: FLAGYL PO SCH ×2 (10:11→21:09)
[2018-09-03] MEDS: SODIUM CHLORIDE FLUSH SYRINGE 10 ML IV SCH ×2 (10:11→21:12)
[2018-09-03] MEDS: NORVASC PO SCH (10:12)
--- NOTE | 2018-09-03 11:51 | Progress Note ---
Assessment and Plan Assessment and plan: SOB,wheezing x 3 History of present illness: Pt is a 63 BF with PMHx of asthma, CHF, HTN, HIV infection (on HAART), DM type 2, morbid obesity who presents to the ER with c/o of wheezing x 3 days. Pt states that she has been having problem breathing for 3 days now, she had been using her nebulizer treatment with some improvement in her symptoms. Pt also reports chills (feeling hot and cold) and productive cough with whitish sputum, she states that she had been feeling very ill with poor appetite and decrease energy. Pt states today the SOB became worse and she used her nebulizer treatment with no improvement on her symptoms she decided to come to the ER for evaluation. Past History Past Medical History: CAD, diabetes, heart failure, HIV/AIDS, hypertension, hyperlipidemia, other (obesity) 1. Asthma with acute exacerbation 2. Acute dyspnea 3. CHF (stable) 4. Uncontrolled DM type 2 5. HTN (BP stable) 6. HIV infection (CD4 and viral load unknown) 7. Morbid obesity -Copious foul-smelling vaginal discharge -bloody stools, GIB PLAN cont steroids nebs and chest PT, and oxygen prn optimize insulins resume home meds -Patient is not sexually active, symptoms are most likely due to bacterial vaginosis, wet prep has been ordered to look for clue cells, nurses refusing to do vaginal swab even though within their scope of practice, spoke to DON, there is no written policy precluding RN from completing the order, awaiting di rections from nursing leadership, cont empiric flagyl for now Hg stable, GI input appreciated likely hemorrhoidal bleed - Advance Directives: Yes VTE prophylaxis?: chemical History Interval history: Complaining of copious foul-smelling vaginal discharge Review of systems Constitutional: No fevers, no malaise, no joint pains CVS: No chest pain, no orthopnea, no dyspnea on exertion, no pedal edema GI: No abdominal pain, no diarrhea, no vomiting, no constipation Respiratory: Complaining of shortness of breath and wheezing Hospitalist Physical - Physical exam Narrative exam: General.: Appears well, no distress, nontoxic HEENT: Moist mucous membranes, extraocular muscles intact, no lymphadenopathy Neck: supple Cardiac: S1-S2 heard Lungs: Decreased air entry, wheezing Abdomen: soft , nontender, nondistended, bowel sounds positive Extremities: no edema clubbing or cyanosis Skin: no rash or lesions Neurologic: no gross focal deficits Psych: calm, and cooperative - Constitutional Vitals: Temp Pulse Resp BP Pulse Ox 97.8 F 84 16 136/88 97 09/03/18 08:11 09/03/18 10:12 09/03/18 08:11 09/03/18 10:12 09/03/18 08:11 General appearance: Present: mild distress Results - Labs CBC & Chem 7: 09/02/18 Unknown 09/02/18 Unknown Labs: Laboratory Last Values WBC 5.5 K/mm3 (4.5-11.0) 09/02/18 Unknown RBC 3.23 M/mm3 (3.65-5.03) L 09/02/18 Unknown Hgb 12.1 gm/dl (10.1-14.3) 09/02/18 Unknown Hct 35.6 % (30.3-42.9) 09/02/18 Unknown MCV 110 fl (79-97) H 09/02/18 Unknown MCH 37 pg (28-32) H 09/02/18 Unknown MCHC 34 % (30-34) 09/02/18 Unknown RDW 14.7 % (13.2-15.2) 09/02/18 Unknown Plt Count 217 K/mm3 (140-440) 09/02/18 Unknown Lymph % (Auto) 16.3 % (13.4-35.0) 09/02/18 Unknown [place] % (Auto) 3.0 % (0.0-7.3) 09/02/18 Unknown Eos % (Auto) 0.0 % (0.0-4.3) 09/02/18 Unknown Baso % (Auto) 0.2 % (0.0-1.8) 09/02/18 Unknown Lymph # 0.9 K/mm3 (1.2-5.4) L 09/02/18 Unknown [place] # 0.2 K/mm3 (0.0-0.8) 09/02/18 Unknown Eos # 0.0 K/mm3 (0.0-0.4) 09/02/18 Unknown Baso # 0.0 K/mm3 (0.0-0.1) 09/02/18 Unknown Add Manual Diff Complete 08/31/18 11:08 Total Counted 100 08/31/18 11:08 Seg Neutrophils % 80.5 % (40.0-70.0) H 09/02/18 Unknown Seg Neuts % (Manual) 28.0 % (40.0-70.0) L 08/31/18 11:08 Band Neutrophils % 0 % 08/31/18 11:08 Lymphocytes % (Manual) 57.0 % (13.4-35.0) H 08/31/18 11:08 Reactive Lymphs % (Man) 0 % 08/31/18 11:08 Monocytes % (Manual) 12.0 % (0.0-7.3) H 08/31/18 11:08 Eosinophils % (Manual) 3.0 % (0.0-4.3) 08/31/18 11:08 Basophils % (Manual) 0 % (0.0-1.8) 08/31/18 11:08 Metamyelocytes % 0 % 08/31/18 11:08 Myelocytes % 0 % 08/31/18 11:08 Promyelocytes % 0 % 08/31/18 11:08 Blast Cells % 0 % 08/31/18 11:08 Nucleated RBC % Not Reportable 08/31/18 11:08 Seg Neutrophils # 4.4 K/mm3 (1.8-7.7) 09/02/18 Unknown Seg Neutrophils # Man 1.3 K/mm3 (1.8-7.7) L 08/31/18 11:08 Band Neutrophils # 0.0 K/mm3 08/31/18 11:08 Lymphocytes # (Manual) 2.7 K/mm3 (1.2-5.4) 08/31/18 11:08 Abs React Lymphs (Man) 0.0 K/mm3 08/31/18 11:08 Monocytes # (Manual) 0.6 K/mm3 (0.0-0.8) 08/31/18 11:08 Eosinophils # (Manual) 0.1 K/mm3 (0.0-0.4) 08/31/18 11:08 Basophils # (Manual) 0.0 K/mm3 (0.0-0.1) 08/31/18 11:08 Metamyelocytes # 0.0 K/mm3 08/31/18 11:08 Myelocytes # 0.0 K/mm3 08/31/18 11:08 Promyelocytes # 0.0 K/mm3 08/31/18 11:08 Blast Cells # 0.0 K/mm3 08/31/18 11:08 WBC Morphology Not Reportable 08/31/18 11:08 Hypersegmented Neuts Not Reportable 08/31/18 11:08 Hyposegmented Neuts Not Reportable 08/31/18 11:08 Hypogranular Neuts Not Reportable 08/31/18 11:08 Smudge Cells Not Reportable 08/31/18 11:08 Toxic Granulation Not Reportable 08/31/18 11:08 Toxic Vacuolation Not Reportable 08/31/18 11:08 Dohle Bodies Not Reportable 08/31/18 11:08 Pelger-Huet Anomaly Not Reportable 08/31/18 11:08 Susan Rods Not Reportable 08/31/18 11:08 Platelet Estimate Consistent w auto 08/31/18 11:08 Clumped Platelets Not Reportable 08/31/18 11:08 Plt Clumps, EDTA Not Reportable 08/31/18 11:08 Large Platelets Not Reportable 08/31/18 11:08 Giant Platelets Not Reportable 08/31/18 11:08 Platelet Satelliting Not Reportable 08/31/18 11:08 Plt Morphology Comment Not Reportable 08/31/18 11:08 RBC Morphology Not Reportable 08/31/18 11:08 Dimorphic RBCs Not Reportable 08/31/18 11:08 Polychromasia Not Reportable 08/31/18 11:08 Hypochromasia Not Reportable 08/31/18 11:08 Poikilocytosis 1+ 08/31/18 11:08 Anisocytosis 1+ 08/31/18 11:08 Microcytosis Not Reportable 08/31/18 11:08 Macrocytosis 1+ 08/31/18 11:08 Spherocytes Not Reportable 08/31/18 11:08 Pappenheimer Bodies Not Reportable 08/31/18 11:08 Sickle Cells Not Reportable 08/31/18 11:08 Target Cells Not Reportable 08/31/18 11:08 Tear Drop Cells Not Reportable 08/31/18 11:08 Ovalocytes Rare 08/31/18 11:08 Helmet Cells Not Reportable 08/31/18 11:08 Ochoa-Balta Bodies Not Reportable 08/31/18 11:08 [place] Rings Not Reportable 08/31/18 11:08 Aileen Cells Not Reportable 08/31/18 11:08 Bite Cells Not Reportable 08/31/18 11:08 Crenated Cell Not Reportable 08/31/18 11:08 Elliptocytes Rare 08/31/18 11:08 Acanthocytes (Spur) Not Reportable 08/31/18 11:08 Rouleaux Not Reportable 08/31/18 11:08 Hemoglobin C Crystals Not Reportable 08/31/18 11:08 Schistocytes Not Reportable 08/31/18 11:08 Malaria parasites Not Reportable 08/31/18 11:08 Barry Bodies Not Reportable 08/31/18 11:08 Hem Pathologist Commnt No 08/31/18 11:08 Sodium 141 mmol/L (137-145) 09/02/18 Unknown Potassium 3.3 mmol/L (3.6-5.0) L 09/02/18 Unknown Chloride 101.7 mmol/L (98-107) 09/02/18 Unknown Carbon Dioxide 28 mmol/L (22-30) 09/02/18 Unknown Anion Gap 15 mmol/L 09/02/18 Unknown BUN 14 mg/dL (7-17) 09/02/18 Unknown Creatinine 0.7 mg/dL (0.7-1.2) 09/02/18 Unknown Estimated GFR > 60 ml/min 09/02/18 Unknown BUN/Creatinine Ratio 20 % 09/02/18 Unknown Glucose 413 mg/dL (65-100) H 09/02/18 Unknown POC Glucose 321 (70-105) H 09/03/18 11:41 Hemoglobin A1c 14.4 % (4-6) H 09/02/18 Unknown Calcium 8.7 mg/dL (8.4-10.2) 09/02/18 Unknown Total Bilirubin 0.30 mg/dL (0.1-1.2) 09/02/18 Unknown Direct Bilirubin < 0.2 mg/dL (0-0.2) 09/02/18 Unknown Indirect Bilirubin 0.1 mg/dL 09/02/18 Unknown AST 10 units/L (5-40) 09/02/18 Unknown ALT 9 units/L (7-56) 09/02/18 Unknown Alkaline Phosphatase 129 units/L (35-129) 09/02/18 Unknown Total Protein 6.7 g/dL (6.3-8.2) 09/02/18 Unknown Albumin 3.8 g/dL (3.9-5) L 09/02/18 Unknown Albumin/Globulin Ratio 1.3 % 09/02/18 Unknown Urine Color Yellow (Yellow) 09/01/18 22:41 Urine Turbidity Clear (Clear) 09/01/18 22:41 Urine pH 5.0 (5.0-7.0) 09/01/18 22:41 Ur Specific [place] 1.027 (1.003-1.030) 09/01/18 22:41 Urine Protein <15 mg/dl mg/dL (Negative) 09/01/18 22:41 Urine Glucose (UA) >=500 mg/dL (Negative) 09/01/18 22:41 Urine Ketones Neg mg/dL (Negative) 09/01/18 22:41 Urine Blood Sm (Negative) 09/01/18 22:41 Urine Nitrite Neg (Negative) 09/01/18 22:41 Urine Bilirubin Neg (Negative) 09/01/18 22:41 Urine Urobilinogen < 2.0 mg/dL (<2.0) 09/01/18 22:41 Ur Leukocyte Esterase Tr (Negative) 09/01/18 22:41 Urine WBC (Auto) 4.0 /HPF (0.0-6.0) 09/01/18 22:41 Urine RBC (Auto) 2.0 /HPF (0.0-6.0) 09/01/18 22:41 U Epithel Cells (Auto) 5.0 /HPF (0-13.0) 09/01/18 22:41 Hyaline Casts 1 /LPF 09/01/18 22:41 Urine Mucus Few /HPF 09/01/18 22:41
[2018-09-03] MEDS: PULMICORT IH SCH ×2 (12:25→19:59)
[2018-09-03] MEDS: BROVANA NEBU IH SCH ×2 (12:25→19:59)
[2018-09-03] MEDS: ZOFRAN IV PRN (13:12)
[2018-09-03] MEDS: LOVENOX SUB-Q SCH (21:09)
[2018-09-03] MEDS: LANTUS SUB-Q SCH (21:09)
--- NOTE | 2018-09-03 23:31 | Consultation ---
History of Present Illness Consult date: 09/03/18 Reason for consult: dyspnea, cough, asthma History of present illness: PULMONARY CONSU LTATION thank you for asking us to participate in the care of this patient Pt is a 63 BF with PMHx of asthma, CHF, HTN, HIV infection (on HAART), DM type 2, morbid obesity who presents to the ER with c/o of wheezing x 3 days. Pt states that she has been having problem breathing for 3 days now, she had been using her nebulizer treatment with some improvement in her symptoms. Pt also reports chills (feeling hot and cold) and productive cough with whitish sputum, she states that she had been feeling very ill with poor appetite and decrease energy. Pt states today the SOB became worse and she used her nebulizer treatment with no improvement on her symptoms . Patient came to the emergency room and patient admitted to the hospital. Patient alert, awake. Complaining wheezing and shortness of breath. O2 saturation 92% on room air. Denies smoking, alcohol or drug abuse. Allergic to shell fish,Ibuprofen,Tetracycline. Past History Past Medical History: CAD, diabetes, heart failure, HIV/AIDS, hypertension, hyperlipidemia, other (obesity) Past Surgical History: No surgical history Social history: no significant social history, other (live with roomate) Medications and Allergies Allergies Allergy/AdvReac Type Severity Reaction Status Date / Time shellfish derived Allergy Severe Shortness Verified 06/13/18 09:11 of Breath ibuprofen [From Motrin] Allergy Mild Shortness Verified 06/13/18 09:11 of Breath tetracycline Allergy Shortness Verified 06/13/18 09:11 of Breath Home Medications Medication Instructions Recorded Confirmed Last Taken Type QUEtiapine [SEROquel] 200 mg PO QHS #30 tablet 07/29/17 08/31/18 1 Day Ago Rx ~07/13/18 amLODIPine [Norvasc] 5 mg PO QDAY #30 tablet 07/29/17 08/31/18 1 Day Ago Rx ~07/13/18 Albuterol Sulfate [Ventolin Hfa] 2 puff IH Q4-6H PRN 09/13/17 08/31/18 1 Day Ago History ~07/13/18 Phenytoin Sodium Extended 125 mg PO DAILY 30 Days capsule 09/15/17 08/31/18 1 Day Ago Rx [Dilantin] ~07/13/18 Furosemide [Lasix TAB] 40 mg PO QDAY 03/23/18 08/31/18 1 Day Ago History ~07/13/18 Genvoya Tablet 1 tab PO DAILY 03/23/18 08/31/18 1 Day Ago History ~07/13/18 Potassium Chloride [Klor-Con 10] 1 tab PO QDAY 03/23/18 08/31/18 1 Day Ago History ~07/13/18 Toujeo Solostar 25 units SUB-Q QPM 03/23/18 08/31/18 Unknown History Benzonatate [Tessalon Perles] 100 mg PO Q8HR PRN #20 capsule 07/07/18 08/31/18 Unknown Rx ALBUTEROL Inhaler(NF) [VENTOLIN 1 puff IH Q4HR PRN #1 inha 07/17/18 08/31/18 U nknown Rx Inhaler(NF)] Advair 250-50 Diskus 1 puff PO BID #1 07/17/18 08/31/18 Unknown Rx Insulin Regular, Human [HumuLIN R] 0 unit SQ AC #1 vial 07/17/18 08/31/18 Unknown Rx Prednisone [predniSONE 10 mg 10 mg PO .TAPER #1 tab.ds.pk 07/17/18 08/31/18 Unknown Rx (6-Day Pack, 21 Tabs)] Pantoprazole [Protonix TAB] 40 mg PO DAILY 08/31/18 08/31/18 Unknown History Active Meds: Active Medications Acetaminophen (Tylenol) 650 mg PO Q4H PRN PRN Reason: Pain MILD(1-3)/Fever >100.5/MOYER Last Admin: 09/02/18 20:26 Dose: 650 mg Documented by: Albuterol/Ipratropium (Duoneb *Not For Prn Use*) 1 ampul IH Q6HRT [facility] Last Admin: 09/03/18 19:59 Dose: 1 ampul Documented by: Amlodipine Besylate (Norvasc) 5 mg PO QDAY [facility] Last Admin: 09/03/18 10:12 Dose: 5 mg Documented by: Arformoterol Tartrate (Brovana Nebu) 15 mcg IH Q12HRT [facility] Last Admin: 09/03/18 19:59 Dose: 15 mcg Documented by: Benzonatate (Tessalon Perles) 100 mg PO Q8HR [facility] Last Admin: 09/03/18 21:09 Dose: 100 mg Documented by: Budesonide (Pulmicort) 0.5 mg IH Q12HRT [facility] Last Admin: 09/03/18 19:59 Dose: 0.5 mg Documented by: Dextrose (D50w (25gm) Syringe) 50 ml IV PRN PRN PRN Reason: Hypoglycemia Enoxaparin Sodium (Lovenox) 40 mg SUB-Q QDAY@2200 [facility] Last Admin: 09/03/18 21:09 Dose: 40 mg Documented by: Furosemide (Lasix) 40 mg PO QDAY [facility] Last Admin: 09/03/18 10:09 Dose: 40 mg Documented by: Sodium Chloride (Nacl 0.9% 1000 Ml) 1,000 mls @ 75 mls/hr IV DIRECT [facility] Last Admin: 09/01/18 23:37 Dose: 75 mls/hr Documented by: Insulin Glargine (Lantus) 45 units SUB-Q QHS [facility] Last Admin: 09/03/18 21:09 Dose: 45 units Documented by: Insulin Human Lispro (Humalog) 0 unit SUB-Q ACHS [facility]; Protocol Last Admin: 09/03/18 21:12 Dose: 4 unit Documented by: Insulin Human Lispro (Humalog) 15 unit SUB-Q AC [facility] Last Admin: 09/03/18 16:30 Dose: Not Given Documented by: Methylprednisolone Sodium Succinate (Solu-Medrol) 125 mg IV Q6HR [facility] Last Admin: 09/03/18 17:43 Dose: 125 mg Documented by: Metronidazole (Flagyl) 500 mg PO BID [facility]; Protocol Stop: 09/08/18 16:59 Last Admin: 09/03/18 21:09 Dose: 500 mg Documented by: Miscellaneous Medication (Genvoya Tablet) 1 tab PO DAILY [facility] Ondansetron HCl (Zofran) 4 mg IV Q8H PRN PRN Reason: Nausea And Vomiting Last Admin: 09/03/18 13:12 Dose: 4 mg Documented by: Pantoprazole Sodium (Protonix) 40 mg PO DAILY [facility] Last Admin: 09/03/18 10:09 Dose: 40 mg Documented by: Phenytoin (Dilantin) 125 mg PO DAILY [facility] Last Admin: 09/03/18 10:09 Dose: 125 mg Documented by: Potassium Chloride (K-Dur) 10 meq PO QDAY [facility] Last Admin: 09/03/18 10:09 Dose: 10 meq Documented by: Quetiapine Fumarate (Seroquel) 200 mg PO QHS [facility] Last Admin: 09/03/18 21:09 Dose: 200 mg Documented by: Sodium Chloride (Sodium Chloride Flush Syringe 10 Ml) 10 ml IV BID [facility] Last Admin: 09/03/18 21:12 Dose: 10 ml Documented by: Sodium Chloride (Sodium Chloride Flush Syringe 10 Ml) 10 ml IV PRN PRN PRN Reason: LINE FLUSH Review of Systems All systems: negative Physical Examination Vital signs: Vital Signs Temp Pulse Resp BP Pulse Ox 98.2 F 107 H 20 125/85 99 08/31/18 10:41 08/31/18 10:41 08/31/18 10:41 08/31/18 10:41 08/31/18 10:41 General appearance: alert, appears uncomfortable, other (Having bilateral mild wheezing.) Eyes: non-icteric ENT: oropharynx moist Neck: supple, no JVD Effort: mildly labored Ascultation: Bilateral: wheezes, rhonchi Cardiovascular: regular rate and rhythm Gastrointestinal: normoactive bowel sounds, soft, non-tender Integumentary: normal Extremities: no cyanosis, no edema Musculoskeletal: no deformities Gait: normal gait normal mental status, non-focal exam, pupils equal and round, CN II-XII normal mood appropriate Results - Laboratory Findings CBC and BMP: 09/02/18 Unknown 09/02/18 Unknown Abnormal lab findings: Abnormal Labs 08/31/18 08/31/18 08/31/18 11:08 11:08 20:34 RBC MCV 110 H MCH 37 H Lymph # Seg Neutrophils % Seg Neuts % (Manual) 28.0 L Lymphocytes % (Manual) 57.0 H Monocytes % (Manual) 12.0 H Seg Neutrophils # Man 1.3 L Potassium Creatinine 0.6 L Glucose 316 H POC Glucose > 500 H Hemoglobin A1c Albumin 08/31/18 09/01/18 09/01/18 22:13 01:32 05:54 RBC MCV MCH Lymph # Seg Neutrophils % Seg Neuts % (Manual) Lymphocytes % (Manual) Monocytes % (Manual) Seg Neutrophils # Man Potassium 3.2 L D Creatinine 0.5 L Glucose 257 H POC Glucose 449 H 407 H Hemoglobin A1c Albumin 09/01/18 09/01/18 09/01/18 06:18 12:51 16:36 RBC MCV MCH Lymph # Seg Neutrophils % Seg Neuts % (Manual) Lymphocytes % (Manual) Monocytes % (Manual) Seg Neutrophils # Man Potassium Creatinine Glucose POC Glucose 211 H 339 H 354 H Hemoglobin A1c Albumin 09/01/18 09/02/18 09/02/18 21:19 06:02 12:23 RBC MCV MCH Lymph # Seg Neutrophils % Seg Neuts % (Manual) Lymphocytes % (Manual) Monocytes % (Manual) Seg Neutrophils # Man Potassium Creatinine Glucose POC Glucose 203 H 318 H 307 H Hemoglobin A1c Albumin 09/02/18 09/02/18 09/02/18 16:49 21:14 Unknown RBC 3.23 L MCV 110 H MCH 37 H Lymph # 0.9 L Seg Neutrophils % 80.5 H Seg Neuts % (Manual) Lymphocytes % (Manual) Monocytes % (Manual) Seg Neutrophils # Man Potassium Creatinine Glucose POC Glucose 134 H 389 H Hemoglobin A1c Albumin 09/02/18 09/02/18 09/03/18 Unknown Unknown 06:06 RBC MCV MCH Lymph # Seg Neutrophils % Seg Neuts % (Manual) Lymphocytes % (Manual) Monocytes % (Manual) Seg Neutrophils # Man Potassium 3.3 L Creatinine Glucose 413 H POC Glucose 299 H Hemoglobin A1c 14.4 H Albumin 3.8 L 09/03/18 09/03/18 09/03/18 11:41 16:54 21:10 RBC MCV MCH Lymph # Seg Neutrophils % Seg Neuts % (Manual) Lymphocytes % (Manual) Monocytes % (Manual) Seg Neutrophils # Man Potassium Creatinine Glucose POC Glucose 321 H 111 H 231 H Hemoglobin A1c Albumin - Diagnostic Findings Chest x-ray: report reviewed (Borderline heart size. Lungs clear.), image reviewed Assessment and Plan - Patient Problems (1) Acute asthma exacerbation Current Visit: Yes Status: Acute Plan to address problem: O2 2 litres via nasal canula Albuterol/atrovent aerosol treatments q 6 hours. Continue I/V solumedral. Continue S/C Lovenox Continue protonix, Recommend PO zithromax. ABGs on room air. (2) Rectal bleeding Current Visit: Yes Status: Acute Plan to address problem: Recommend to consult GI. (3) AIDS Current Visit: No Status: Acute Plan to address problem: Recommend to consult infectious diseases. (4) Acute blood loss anemia Current Visit: No Status: Acute Plan to address problem: Recommend to consult GI. (5) Acute bronchitis Current Visit: No Status: Acute Plan to address problem: Recommend PO zithromax.
[2018-09-04] MEDS: DUONEB *Not for PRN Use IH SCH ×3 (02:06→14:37)
[2018-09-04] MEDS: SOLU-Medrol IV SCH ×2 (06:11→14:54)
[2018-09-04] MEDS: TESSALON PERLES PO SCH ×2 (06:12→14:54)
[2018-09-04] MEDS: BROVANA NEBU IH SCH (07:43)
[2018-09-04] MEDS: PULMICORT IH SCH (07:43)
[2018-09-04] MEDS: HumaLOG SUB-Q SCH ×4 (08:43→12:59)
--- NOTE | 2018-09-04 09:57 | Discharge Summary ---
Providers - Providers Date of Admission: 08/31/18 20:40 Attending physician: DIONNA CASTAÑEDA MD 08/31/18 17:12 PICC Line Insertion [Consult to PICC Line RN] [CONS] Urgent Reason For Exam: Difficult IV access Type Line:: PICC 09/01/18 15:13 Consult to Physician [CONS] Routine Comment: Consulting Provider: CHRIS SINCLAIR Physician Instructions: Reason For Exam: bloody stools 09/03/18 11:50 Consult to Physician [CONS] Routine Comment: Consulting Provider: JOSEPH OCAMPO Physician Instructions: Reason For Exam: copd Primary care physician: ADVERTISING REPRESENTATIVE Hospitalization Condition: Fair Hospital course: Pt is a 63 BF with PMHx of asthma, CHF, HTN, HIV infection (on HAART), DM type 2, morbid obesity who presents to the ER with c/o of wheezing x 3 days. Past History Past Medical History: CAD, diabetes, heart failure, HIV/AIDS, hypertension, hyperlipidemia, other (obesity) * she received nebs, steroids and chest PT for asthma exacerbation, she was rx with oxygen and weaned off oxygen. insulins for optimized for dm with hyperglycemia * she had foul smelling vaginal discharge c/w BV, she was rx with oral flagyl, she denied any recent sexual activity * her meds were optimized for her chronic conditions * she complained of blood in her stool, hg was stable, she was seen by GI, given recent c-scope results, it was attributed to hemorrhoids, she was given stool softeners and anusol and it resolved diagnosis Asthma with acute exacerbation Uncontrolled DM type 2 HTN HIV infection on HAART . Morbid obesity Bacterial vaginosis Disposition: - TO HOME OR SELFCARE Time spent for discharge: 33 minutes Core Measure Documentation - Palliative Care Palliative Care/ Comfort Measures: Not Applicable - Core Measures Any of the following diagnoses?: none Exam - Constitutional Vitals: Temp Pulse Resp BP Pulse Ox 97.9 F 84 20 135/90 98 09/04/18 05:50 09/04/18 08:06 09/04/18 08:06 09/04/18 05:50 09/04/18 07:44 General appearance: Present: no acute distress, well-nourished - EENT Eyes: Present: PERRL ENT: hearing intact, clear oral mucosa - Neck Neck: Present: supple, normal ROM - Respiratory Respiratory effort: normal Respiratory: bilateral: CTA - Cardiovascular Heart Sounds: Present: S1 & S2. Absent: rub, click - Extremities Extremities: pulses symmetrical, No edema Peripheral Pulses: within normal limits - Abdominal General gastrointestinal: Present: soft, non-tender, non-distended, normal bowel sounds Female genitourinary: Present: normal - Integumentary Integumentary: Present: clear, warm, dry - Musculoskeletal Musculoskeletal: gait normal, strength equal bilaterally - Psychiatric Psychiatric: appropriate mood/affect, intact judgment & insight - Neurologic Neurologic: CNII-XII intact, moves all extremities Plan Follow up with: PRIMARY CARE, [Primary Care Provider] - 3-5 Days Prescriptions: QUEtiapine [SEROquel] 200 mg PO QHS #30 tablet Advair 250-50 Diskus 1 puff PO BID #1 ALBUTEROL NEB's [Proventil 0.083% NEBS] 2.5 mg IH Q4H PRN #120 neb PRN Reason: Wheezing Albuterol Sulfate [Ventolin Hfa] 2 puff IH Q4-6H PRN #1 hfa.aer.ad PRN Reason: Shortness Of Breath Benzonatate [Tessalon Perles] 100 mg PO Q8HR PRN #30 capsule PRN Reason: Cough Lispro Insulin [Humalog] 15 unit SUB-Q AC #1 vial metroNIDAZOLE [Flagyl TAB] 500 mg PO BID #8 tablet Polyethylene Glycol 3350 [Miralax] 17 gm PO DAILY 30 Days powder Prednisone [predniSONE 10 mg (6-Day Pack, 21 Tabs)] 10 mg PO .TAPER #1 tab.ds.pk Sennosides/Docusate Sodium [Senna Plus Tablet] 2 each PO HS PRN #60 tablet PRN Reason: Constipation Toujeo Solostar 45 units SUB-Q QPM #5 Other Discharge Orders: Nebulizer (Amb) Location: None Selected
[2018-09-04] MEDS: K-DUR PO SCH (10:09)
[2018-09-04] MEDS: ZOFRAN IV PRN (10:09)
[2018-09-04] MEDS: LASIX PO SCH (10:09)
[2018-09-04] MEDS: DILANTIN PO SCH (10:09)
[2018-09-04] MEDS: FLAGYL PO SCH (10:09)
[2018-09-04] MEDS: SODIUM CHLORIDE FLUSH SYRINGE 10 ML IV SCH (10:10)
[2018-09-04] MEDS: NORVASC PO SCH (10:10)
[2018-09-04] MEDS: PROTONIX PO SCH (10:10)
[2018-09-04 14:10] VITALS: BP 113/77
[2018-09-04] MEDS ORDERED: TRIPLE ANTIBIOTIC TP ONE (15:00)
--- NOTE | 2018-09-04 15:27 | Progress Note ---
Assessment and Plan - Patient Problems (1) Acute asthma exacerbation Current Visit: Yes Status: Acute Plan to address problem: O2 2 litres via nasal canula Albuterol/atrovent aerosol treatments q 6 hours. Continue I/V solumedral. Continue S/C Lovenox Continue protonix, Recommend PO zithromax. ABGs on room air. (2) Rectal bleeding Current Visit: Yes Status: Acute Plan to address problem: Recommend to consult GI. (3) AIDS Current Visit: No Status: Acute Plan to address problem: Recommend to consult infectious diseases. (4) Acute blood loss anemia Current Visit: No Status: Acute Plan to address problem: Recommend to consult GI. (5) Acute bronchitis Current Visit: No Status: Acute Plan to address problem: Recommend PO zithromax. Subjective Date of service: 09/04/18 Objective Vital Signs - 12hr 09/04/18 09/04/18 09/04/18 05:50 07:43 07:44 Temperature 97.9 F Pulse Rate 89 Pulse Rate [ 89 Anterior Bilateral Throughout] Respiratory 18 Rate Respiratory 18 Rate [Anterior Bilateral Throughout] Blood Pressure 135/90 O2 Sat by Pulse 97 98 Oximetry 09/04/18 09/04/18 09/04/18 08:06 12:28 14:37 Temperature Pulse Rate 82 Pulse Rate [ 84 91 H Anterior Bilateral Throughout] Respiratory 16 Rate Respiratory 20 20 Rate [Anterior Bilateral Throughout] Blood Pressure 113/77 O2 Sat by Pulse 98 Oximetry 09/04/18 14:49 Temperature Pulse Rate Pulse Rate [ 87 Anterior Bilateral Throughout] Respiratory Rate Respiratory 18 Rate [Anterior Bilateral Throughout] Blood Pressure O2 Sat by Pulse Oximetry Constitutional: alert, appears uncomfortable, other (Having bilateral mild wheez ing.) Eyes: non-icteric ENT: oropharynx moist Neck: supple, no JVD Effort: mildly labored Ascultation: Bilateral: wheezes, rhonchi Cardiovascular: regular rate and rhythm Gastrointestinal: normoactive bowel sounds, soft, non-tender Integumentary: normal Extremities: no cyanosis, no edema Neurologic: normal mental status, non-focal exam, pupils equal and round, CN II- XII normal Psychiatric: mood appropriate CBC and BMP: 09/02/18 Unknown 09/02/18 Unknown ABG, PT/INR, D-dimer: ABG POC ABG pH 7.457 (7.35-7.45) H 09/04/18 11:33 POC ABG pCO2 37.5 (35-45) 09/04/18 11:33 POC ABG pO2 95 (80-105) 09/04/18 11:33 POC ABG HCO3 26.5 09/04/18 11:33 POC ABG Total CO2 28 09/04/18 11:33 POC ABG O2 Sat 98 09/04/18 11:33 Abnormal lab findings: Abnormal Labs 08/31/18 08/31/18 08/31/18 11:08 11:08 20:34 RBC MCV 110 H MCH 37 H Lymph # Seg Neutrophils % Seg Neuts % (Manual) 28.0 L Lymphocytes % (Manual) 57.0 H Monocytes % (Manual) 12.0 H Seg Neutrophils # Man 1.3 L POC ABG pH Potassium Creatinine 0.6 L Glucose 316 H POC Glucose > 500 H Hemoglobin A1c Albumin 08/31/18 09/01/18 09/01/18 22:13 01:32 05:54 RBC MCV MCH Lymph # Seg Neutrophils % Seg Neuts % (Manual) Lymphocytes % (Manual) Monocytes % (Manual) Seg Neutrophils # Man POC ABG pH Potassium 3.2 L D Creatinine 0.5 L Glucose 257 H POC Glucose 449 H 407 H Hemoglobin A1c Albumin 09/01/18 09/01/18 09/01/18 06:18 12:51 16:36 RBC MCV MCH Lymph # Seg Neutrophils % Seg Neuts % (Manual) Lymphocytes % (Manual) Monocytes % (Manual) Seg Neutrophils # Man POC ABG pH Potassium Creatinine Glucose POC Glucose 211 H 339 H 354 H Hemoglobin A1c Albumin 09/01/18 09/02/18 09/02/18 21:19 06:02 12:23 RBC MCV MCH Lymph # Seg Neutrophils % Seg Neuts % (Manual) Lymphocytes % (Manual) Monocytes % (Manual) Seg Neutrophils # Man POC ABG pH Potassium Creatinine Glucose POC Glucose 203 H 318 H 307 H Hemoglobin A1c Albumin 09/02/18 09/02/18 09/02/18 16:49 21:14 Unknown RBC 3.23 L MCV 110 H MCH 37 H Lymph # 0.9 L Seg Neutrophils % 80.5 H Seg Neuts % (Manual) Lymphocytes % (Manual) Monocytes % (Manual) Seg Neutrophils # Man POC ABG pH Potassium Creatinine Glucose POC Glucose 134 H 389 H Hemoglobin A1c Albumin 09/02/18 09/02/18 09/03/18 Unknown Unknown 06:06 RBC MCV MCH Lymph # Seg Neutrophils % Seg Neuts % (Manual) Lymphocytes % (Manual) Monocytes % (Manual) Seg Neutrophils # Man POC ABG pH Potassium 3.3 L Creatinine Glucose 413 H POC Glucose 299 H Hemoglobin A1c 14.4 H Albumin 3.8 L 09/03/18 09/03/18 09/03/18 11:41 16:54 21:10 RBC MCV MCH Lymph # Seg Neutrophils % Seg Neuts % (Manual) Lymphocytes % (Manual) Monocytes % (Manual) Seg Neutrophils # Man POC ABG pH Potassium Creatinine Glucose POC Glucose 321 H 111 H 231 H Hemoglobin A1c Albumin 09/04/18 09/04/18 09/04/18 08:01 11:33 12:33 RBC MCV MCH Lymph # Seg Neutrophils % Seg Neuts % (Manual) Lymphocytes % (Manual) Monocytes % (Manual) Seg Neutrophils # Man POC ABG pH 7.457 H Potassium Creatinine Glucose POC Glucose 292 H 250 H Hemoglobin A1c Albumin
== END 2018-09-04 16:00 | disposition home health service (06) | DRG 202 ==
LOC: ED 10:28 → 4A 20:40 → 3A 09-03 21:45
PROVIDERS: ADMIT Internal Medicine; ATTEND Internal Medicine
PROC: 02HV33Z Insertion of Infusion Device into Superior Vena Cava, Percutaneous Approach (ICD-10-PCS; 2018-09-01)
PROC: 4A033R1 Measurement of Arterial Saturation, Peripheral, Percutaneous Approach (ICD-10-PCS; principal; 2018-09-04)
DX: J45.901 Unspecified asthma with (acute) exacerbation (principal); B20 Human immunodeficiency virus [HIV] disease; Z68.42 Body mass index [BMI] 45.0-49.9, adult; D62 Acute posthemorrhagic anemia; E66.01 Morbid (severe) obesity due to excess calories; I11.0 Hypertensive heart disease with heart failure; K64.9 Unspecified hemorrhoids; J20.9 Acute bronchitis, unspecified; I50.9 Heart failure, unspecified; E11.65 Type 2 diabetes mellitus with hyperglycemia; R56.9 Unspecified convulsions; E78.5 Hyperlipidemia, unspecified; F31.9 Bipolar disorder, unspecified; N76.0 Acute vaginitis; I25.10 Atherosclerotic heart disease of native coronary artery without angina pectoris; Z90.710 Acquired absence of both cervix and uterus; Z95.810 Presence of automatic (implantable) cardiac defibrillator; Z79.4 Long term (current) use of insulin; Z88.1 Allergy status to other antibiotic agents; Z91.013 Allergy to seafood
CPT/HCPCS: 36415; 36600; 71045; 80048; 80076; 81001; 82803; 82962; 83036; 85007; 85014; 85018; 85025; 87086; 87116; 94640; 94644; 96365; 96372; 96375; G0378; A6250; J1650; J1815; J2405; J2920; J2930; J3475; J7030

== ENCOUNTER 2018-10-08 19:47 | Emergency (ER) | payer MEDICARE ==
[2018-10-08] MEDS ORDERED: TYLENOL ONE (19:52)
[2018-10-08 20:47] LABS: Hematocrit 47.4 % (30.3-42.9); Hemoglobin 15.8 gm/dl (10.1-14.3); Mean Corpuscular HGB Conc 33 % (30-34); Mean Corpuscular Volume 110 fl (79-97); Platelet Count 178 K/mm3 (140-440); Red Blood Count 4.33 M/mm3 (3.65-5.03); Red Cell Distribution Width 13.5 % (13.2-15.2)
[2018-10-08 21:38] LABS: Basophils % (Manual) 0 % (0.0-1.8); Eosinophils % (Manual) 0 % (0.0-4.3); Total Cells Counted 100
[2018-10-08 21:39] LABS: Ovalocytes Few; Platelet Estimate Consistent w Auto
[2018-10-08 21:44] LABS: BUN/Creatinine Ratio 20; Blood Urea Nitrogen 22 mg/dL (7-17); Calcium 9.6 mg/dL (8.4-10.2); Hemolysis Index 11
[2018-10-08 22:09] LABS: Bilirubin,Urine NEG (Negative); Blood,Urine SM (Negative); Color,Urine Straw (Yellow); Mucus,Urine FEW /HPF; Protein,Urine <15 mg/dL mg/dL (Negative); Urobilinogen,Urine < 2.0 mg/dL (<2.0)
[2018-10-08] MEDS ORDERED: ATROVENT IH ONE (22:50)
[2018-10-08] MEDS ORDERED: PROVENTIL IH ONE (22:50)
[2018-10-08] MEDS ORDERED: HumuLIN R IV ONE (22:51)
[2018-10-08] MEDS ORDERED: NACL 0.9% 1000 ML 1,000 ML IV ONE (22:51)
[2018-10-09 00:09] VITALS: BP 143/95
[2018-10-09] MEDS ORDERED: K-DUR PO ONE (00:26)
--- NOTE | 2018-10-09 01:16 | Emergency Department Report ---
ED Shortness of Breath HPI - General Chief Complaint: Dyspnea/Respdistress Stated Complaint: DIFFICULTY IN BREATHING Time Seen by Provider: 10/08/18 21:41 Source: patient Mode of arrival: Ambulatory Limitations: No Limitations - History of Present Illness Initial Comments: 63-year-old female presents to ED with cough, shortness of breath 3 days. Patient reports history of CHF and COPD. States she has been wheezing. Patient denies fever. Reports onset of abdominal pain today after eating [employer] hamburgers and watermelon. MD Complaint: shortness of breath, cough -: days(s) (3) Severity: moderate Consistency: constant Improves With: nothing Known History Of: COPD, congestive heart failure Associated Symptoms: abdominal pain - Related Data Home Medications Medication Instructions Recorded Confirmed Last Taken Furosemide [Lasix TAB] 40 mg PO QDAY 03/23/18 08/31/18 1 Day Ago ~07/13/18 [place] Tablet 1 tab PO DAILY 03/23/18 08/31/18 1 Day Ago ~07/13/18 Potassium Chloride [Klor-Con 10] 1 tab PO QDAY 03/23/18 08/31/18 1 Day Ago ~07/13/18 Pantoprazole [Protonix TAB] 40 mg PO DAILY 08/31/18 08/31/18 Unknown Previous Rx's Medication Instructions Recorded Last Taken Type amLODIPine [Norvasc] 5 mg PO QDAY #30 tablet 07/29/17 1 Day Ago Rx ~07/13/18 Phenytoin Sodium Extended 125 mg PO DAILY 30 Days capsule 09/15/17 1 Day Ago Rx [Dilantin] ~07/13/18 ALBUTEROL NEB's [Proventil 0.083% 2.5 mg IH Q4H PRN #120 neb 09/04/18 Unknown Rx NEBS] Advair 250-50 Diskus 1 puff PO BID #1 09/04/18 Unknown Rx Albuterol Sulfate [Ventolin Hfa] 2 puff IH Q4-6H PRN #1 hfa.aer.ad 09/04/18 Unknown Rx Benzonatate [Tessalon Perles] 100 mg PO Q8HR PRN #30 capsule 09/04/18 Unknown Rx Lispro Insulin [Humalog] 15 unit SUB-Q AC #1 vial 09/04/18 Unknown Rx Polyethylene Glycol 3350 [Miralax] 17 gm PO DAILY 30 Days powder 09/04/18 Unknown Rx Prednisone [predniSONE 10 mg 10 mg PO .TAPER #1 tab.ds.pk 09/04/18 Unknown Rx (6-Day Pack, 21 Tabs)] QUEtiapine [SEROquel] 200 mg PO QHS #30 tablet 09/04/18 Unknown Rx Sennosides/Docusate Sodium [Senna 2 each PO HS PRN #60 tablet 09/04/18 Unknown Rx Plus Tablet] [place] Solostar 45 units SUB-Q QPM #5 09/04/18 Unknown Rx metroNIDAZOLE [Flagyl TAB] 500 mg PO BID #8 tablet 09/04/18 Unknown Rx ALBUTEROL Inhaler(NF) [VENTOLIN 1 puff IH Q4HR PRN #1 inha 10/09/18 Unknown Rx Inhaler(NF)] Benzonatate [Tessalon Perles] 100 mg PO Q8HR PRN #20 capsule 10/09/18 Unknown Rx Dicyclomine [Bentyl] 20 mg PO QID PRN #20 tablet 10/09/18 Unknown Rx traMADol [Ultram] 50 mg PO Q6HR PRN #7 tablet 10/09/18 Unknown Rx Allergies Allergy/AdvReac Type Severity Reaction Status Date / Time shellfish derived Allergy Severe Shortness Verified 06/13/18 09:11 of Breath ibuprofen [From Motrin] Allergy Mild Shortness Verified 06/13/18 09:11 of Breath tetracycline Allergy Shortness Verified 06/13/18 09:11 of Breath ED Review of Systems ROS: Stated complaint: DIFFICULTY IN BREATHING Other details as noted in HPI Comment: All other systems reviewed and negative Constitutional: denies: chills, fever Respiratory: cough, SOB with exertion Gastrointestinal: abdominal pain. denies: nausea, vomiting Musculoskeletal: other (denies leg pain or swelling) ED Past Medical Hx - Past Medical History Hx Hypertension: Yes Hx Congestive Heart Failure: Yes Hx Diabetes: Yes Hx Deep Vein Thrombosis: No Hx Arthritis: No Hx Seizures: Yes Hx Psychiatric Treatment: Yes (bipolar disorder; schziphornia) Hx Asthma: Yes Hx COPD: No Hx HIV: Yes Additional medical history: CDIFF, spinal stenosis - Surgical History Hx Pacemaker: No Hx Internal Defibrillator: No Additional Surgical History: hysterectomy; rt arm skin graph - Social History Smoking Status: Never Smoker Substance Use Type: None - Medications Home Medications: Home Medications Medication Instructions Recorded Confirmed Last Taken Type amLODIPine [Norvasc] 5 mg PO QDAY #30 tablet 07/29/17 08/31/18 1 Day Ago Rx ~07/13/18 Phenytoin Sodium Extended 125 mg PO DAILY 30 Days capsule 09/15/17 08/31/18 1 Day Ago Rx [Dilantin] ~07/13/18 Furosemide [Lasix TAB] 40 mg PO QDAY 03/23/18 08/31/18 1 Day Ago History ~07/13/18 Genvoya Tablet 1 tab PO DAILY 03/23/18 08/31/18 1 Day Ago History ~07/13/18 Potassium Chloride [Klor-Con 10] 1 tab PO QDAY 03/23/18 08/31/18 1 Day Ago History ~07/13/18 Pantoprazole [Protonix TAB] 40 mg PO DAILY 08/31/18 08/31/18 Unknown History ALBUTEROL NEB's [Proventil 0.083% 2.5 mg IH Q4H PRN #120 neb 09/04/18 Unknown Rx NEBS] Advair 250-50 Diskus 1 puff PO BID #1 09/04/18 Unknown Rx Albuterol Sulfate [Ventolin Hfa] 2 puff IH Q4-6H PRN #1 hfa.aer.ad 09/04/18 Unknown Rx Benzonatate [Tessalon Perles] 100 mg PO Q8HR PRN #30 capsule 09/04/18 Unknown Rx Lispro Insulin [Humalog] 15 unit SUB-Q AC #1 vial 09/04/18 Unknown Rx Polyethylene Glycol 3350 [Miralax] 17 gm PO DAILY 30 Days powder 09/04/18 Unknown Rx Prednisone [predniSONE 10 mg 10 mg PO .TAPER #1 tab.ds.pk 09/04/18 Unknown Rx (6-Day Pack, 21 Tabs)] QUEtiapine [SEROquel] 200 mg PO QHS #30 tablet 09/04/18 Unknown Rx Sennosides/Docusate Sodium [Senna 2 each PO HS PRN #60 tablet 09/04/18 Unknown Rx Plus Tablet] [place] Solostar 45 units SUB-Q QPM #5 09/04/18 Unknown Rx metroNIDAZOLE [Flagyl TAB] 500 mg PO BID #8 tablet 09/04/18 Unknown Rx ALBUTEROL Inhaler(NF) [VENTOLIN 1 puff IH Q4HR PRN #1 inha 10/09/18 Unknown Rx Inhaler(NF)] Benzonatate [Tessalon Perles] 100 mg PO Q8HR PRN #20 capsule 10/09/18 Unknown Rx Dicyclomine [Bentyl] 20 mg PO QID PRN #20 tablet 10/09/18 Unknown Rx traMADol [Ultram] 50 mg PO Q6HR PRN #7 tablet 10/09/18 Unknown Rx ED Physical Exam - General Limitations: No Limitations General appearance: alert, in no apparent distress - Head Head exam: Present: atraumatic, normocephalic - Eye Eye exam: Present: normal appearance - ENT ENT exam: Present: mucous membranes dry - Neck Neck exam: Present: normal inspection - Respiratory Respiratory exam: Present: wheezes. Absent: respiratory distress - Cardiovascular Cardiovascular Exam: Present: normal rhythm, tachycardia - GI/Abdominal GI/Abdominal exam: Present: soft, tenderness (mild diffuse tenderness). Absent: distended - Extremities Exam Extremities exam: Present: normal inspection. Absent: pedal edema, calf tenderness - Neurological Exam Neurological exam: Present: alert, oriented X3 - Psychiatric Psychiatric exam: Present: normal affect, normal mood - Skin Skin exam: Present: warm, dry, intact, normal color ED Course Vital Signs 10/08/18 10/08/18 10/08/18 20:08 22:01 22:23 Temperature 97.5 F L Pulse Rate 119 H 112 H 102 H Pulse Rate [ Anterior Bilateral Throughout] Respiratory 16 10 L 19 Rate Respiratory Rate [Anterior Bilateral Throughout] Blood Pressure 147/98 Blood Pressure 129/85 142/98 [Left] O2 Sat by Pulse 95 98 100 Oximetry 10/08/18 10/08/18 10/08/18 23:00 23:16 23:46 Temperature Pulse Rate 107 H Pulse Rate [ 114 H 112 H Anterior Bilateral Throughout] Respiratory 10 L Rate Respiratory 16 16 Rate [Anterior Bilateral Throughout] Blood Pressure 143/95 Blood Pressure [Left] O2 Sat by Pulse 96 Oximetry ED Medical Decision Making - Lab Data Result diagrams: 10/08/18 20:31 10/08/18 20:31 - EKG Data -: EKG Interpreted by [facility] EKG shows normal: sinus rhythm, axis, intervals, QRS complexes, ST-T waves Rate: tachycardia (rate 116) - EKG Data Interpretation: no acute changes - Radiology Data Radiology results: report reviewed, image reviewed CXR: neg acute CT Abd/Pelvis: No evidence of intestinal or urinary tract obstruction. No ileus or enteritis. The appendix is normal. Mild diverticulosis of the colon. * tech issues with radiology; results faxed, however not crossing over into [employer] - Medical Decision Making 62-year-old female with COPD exacerbation and hyperglycemia. Patient initially presented with dyspnea on exertion, cough, wheezing on exam. Albuterol/atrovent nebulizer treatment given. EKG, BNP, and troponin normal. Patient afebrile, no elevation in WBCs. Chest x-ray negative for infiltrate or edema. Patient fe eling much better. Wheezing improved. The patient also reported abdominal pain after eating watermelon and [employer] today. Patient is diabetic. Glucose elevated, 773, however, patient not acidotic, not ketones present in the urine. Does not appear to be DKA. Sodium 129, likely pseudohyponatremia due to hyperglycemia. Patient given IV fluids and 10 units of insulin. Glucose improved to 338. CT abdomen pelvis was obtained due to patient's complaint of abdominal pain, this study was normal. Patient feeling much better at this time, overall. I do not believe pt requires admission at this time as she is not in any respiratory distress, O2 sats normal, labs improved, pt tolerating PO, abdominal pain improved. Discussed return precautions. Advised outpatient follow-up w/ PCP. - Differential Diagnosis pulm edema, COPD exacerbation, pneumonia, gastritis Critical care attestation.: If time is entered above; I have spent that time in minutes in the direct care of this critically ill patient, excluding procedure time. ED Disposition Clinical Impression: COPD exacerbation, Abdominal pain, Hyperglycemia due to type 2 diabetes mellitus, Hypokalemia Disposition: DC-01 TO HOME OR SELFCARE Is pt being admited?: No Condition: Stable Instructions: Chronic Obstructive Pulmonary Disease (ED), Acute Abdominal Pain (ED), Diabetic Hyperglycemia (ED) Prescriptions: ALBUTEROL Inhaler(NF) [VENTOLIN Inhaler(NF)] 1 puff IH Q4HR PRN #1 inha PRN Reason: Wheezing Benzonatate [Tessalon Perles] 100 mg PO Q8HR PRN #20 capsule PRN Reason: Cough Dicyclomine [Bentyl] 20 mg PO QID PRN #20 tablet PRN Reason: abdominal pain traMADol [Ultram] 50 mg PO Q6HR PRN #7 tablet PRN Reason: Pain Referrals: PRIMARY CARE, [Primary Care Provider] - 3-5 Days Time of Disposition: 01:49
[2018-10-09] MEDS ORDERED: ULTRAM PO ONE (01:39)
--- NOTE | 2018-10-10 15:55 | XRay Report ---
FINAL REPORT EXAM: XR CHEST ROUTINE 2V HISTORY: Shortness of breath TECHNIQUE: PA and lateral views of the chest PRIORS: CXR 07/14/2018, 07/07/2018 FINDINGS: Lines, tubes, and devices: N/A Lungs and pleura: Trachea is normal in position. Lungs are clear of infiltrate, pleural effusion, va scular congestion, or pneumothorax. No change. Cardiomediastinal silhouette: Cardiac and mediastinal silhouettes are unremarkable. Unfolding of the aorta is stable, likely age related. Other: Bony structures are intact. IMPRESSION: No acute cardiopulmonary process seen. No change.
--- NOTE | 2018-10-11 08:19 | Cat Scan Report ---
FINAL REPORT PROCEDURE: CT ABD AND PELVIS WO CONTRAST TECHNIQUE: Computerized axial tomography of the abdomen and pelvis was performed without intravenous contrast. This study is performed without intravascular contrast material and its sensitivity for ab dominal and pelvic pathology, including neoplasms, inflammation, abscess, free fluid, thrombosis, art erial dissection and infarction, is reduced compared with a contrast enhanced study. HISTORY: ABD PAIN COMPARISON: 09/11/2017 FINDINGS: Visualized lower thorax: No significant abnormality. Liver: Normal size and attenuation. Spleen: Normal size and attenuation. Gallbladder and biliary system: Normal. Pancreas: Normal. Adrenals: Normal. Kidneys: Both kidneys have a normal size. No hydronephrosis. No renal stones or masses. GI tract: No obstruction. The cecum and appendix are normal. Mild diverticular changes in the colon. No inflammatory process. There is a mild hiatal hernia.. Lymph nodes and mesentery: Normal. Vasculature: There is an inferior vena cava filter noted. Mild atherosclerosis of the aorta.. Bladder: Normal. Reproductive organs: There are no pelvic masses. The uterus is absent.. Peritoneum: No free fluid. Musculoskeletal structures: Moderate degenerative changes of the spine.. Other: None. IMPRESSION: There is no evidence of intestinal or urinary tract obstruction. No ileus or enteritis. The appendix is normal. Mild diverticulosis of the colon. .
== END 2018-10-09 03:05 | disposition home or self-care (01) ==
LOC: ED 19:47
DX: J44.1 Chronic obstructive pulmonary disease with (acute) exacerbation (principal); E11.65 Type 2 diabetes mellitus with hyperglycemia; E87.6 Hypokalemia; R10.9 Unspecified abdominal pain; I11.0 Hypertensive heart disease with heart failure; I50.9 Heart failure, unspecified; F31.9 Bipolar disorder, unspecified; F20.9 Schizophrenia, unspecified; Z90.710 Acquired absence of both cervix and uterus
CPT/HCPCS: 36415; 71046; 74176; 80048; 81001; 82962; 83880; 84484; 85007; 85025; 93005; 93010; 94640; 96361; 96374; 99285; J7030; J1815

== ENCOUNTER 2018-10-28 13:25 | Inpatient (IN) | payer MEDICARE ==
--- NOTE | 2018-10-28 14:35 | Emergency Department Report ---
HPI - General Chief Complaint: Dyspnea/Respdistress Time Seen by Provider: 10/28/18 14:24 - HPI HPI: 63-year-old -Citizen Of [place] female presents to the emergency department with a complaint of a 2 day history of shortness of breath. The patient was also found to have elevated blood sugar with a history of diabetes. Her blood sugar with EMS was about 520. She says that the shortness of breath has been associated with wheezing, mixed dry and productive cough, and she also has some left-sided body pain. She has a past medical history of insulin dependent diabetes, CHF, asthma, DJD, hypertension, bipolar disorder and schizophrenia. She's been using her albuterol inhaler and nebulizers without any relief. She has a primary care physician but says she cannot currently remember his name. No recent travel or sick contacts at home. ED Past Medical Hx - Past Medical History Hx Hypertension: Yes Hx Congestive Heart Failure: Yes Hx Diabetes: Yes Hx Deep Vein Thrombosis: No Hx Arthritis: No Hx Seizures: Yes Hx Psychiatric Treatment: Yes (bipolar disorder; schziphornia) Hx Asthma: Yes Hx COPD: No Hx HIV: Yes Additional medical history: CDIFF, spinal stenosis - Surgical History Hx Pacemaker: No Hx Internal Defibrillator: No Additional Surgical History: hysterectomy; rt arm skin graph - Social History Smoking Status: Never Smoker Substance Use Type: None - Medications Home Medications: Home Medications Medication Instructions Recorded Confirmed Last Taken Type amLODIPine [Norvasc] 5 mg PO QDAY #30 tablet 07/29/17 08/31/18 1 Day Ago Rx ~07/13/18 Phenytoin Sodium Extended 125 mg PO DAILY 30 Days capsule 09/15/17 08/31/18 1 Day Ago Rx [Dilantin] ~07/13/18 Furosemide [Lasix TAB] 40 mg PO QDAY 03/23/18 08/31/18 1 Day Ago History ~07/13/18 Genvoya Tablet 1 tab PO DAILY 03/23/18 08/31/18 1 Day Ago History ~07/13/18 Potassium Chloride [Klor-Con 10] 1 tab PO QDAY 03/23/18 08/31/18 1 Day Ago History ~07/13/18 Pantoprazole [Protonix TAB] 40 mg PO DAILY 08/31/18 08/31/18 Unknown History ALBUTEROL NEB's [Proventil 0.083% 2.5 mg IH Q4H PRN #120 neb 09/04/18 Unknown Rx NEBS] Advair 250-50 Diskus 1 puff PO BID #1 09/04/18 Unknown Rx Albuterol Sulfate [Ventolin Hfa] 2 puff IH Q4-6H PRN #1 hfa.aer.ad 09/04/18 Unknown Rx Benzonatate [Tessalon Perles] 100 mg PO Q8HR PRN #30 capsule 09/04/18 Unknown Rx Lispro Insulin [Humalog] 15 unit SUB-Q AC #1 vial 09/04/18 Unknown Rx Polyethylene Glycol 3350 [Miralax] 17 gm PO DAILY 30 Days powder 09/04/18 Unknown Rx Prednisone [predniSONE 10 mg 10 mg PO .TAPER #1 tab.ds.pk 09/04/18 Unknown Rx (6-Day Pack, 21 Tabs)] QUEtiapine [SEROquel] 200 mg PO QHS #30 tablet 09/04/18 Unknown Rx Sennosides/Docusate Sodium [Senna 2 each PO HS PRN #60 tablet 09/04/18 Unknown Rx Plus Tablet] Toujeo Solostar 45 units SUB-Q QPM #5 09/04/18 Unknown Rx metroNIDAZOLE [Flagyl TAB] 500 mg PO BID #8 tablet 09/04/18 Unknown Rx ALBUTEROL Inhaler(NF) [VENTOLIN 1 puff IH Q4HR PRN #1 inha 10/09/18 Unknown Rx Inhaler(NF)] Benzonatate [Tessalon Perles] 100 mg PO Q8HR PRN #20 capsule 10/09/18 Unknown Rx Dicyclomine [Bentyl] 20 mg PO QID PRN #20 tablet 10/09/18 Unknown Rx traMADol [Ultram] 50 mg PO Q6HR PRN #7 tablet 10/09/18 Unknown Rx ED Review of Systems ROS: Stated complaint: CARL Other details as noted in HPI Comment: All other systems reviewed and negative Constitutional: denies: chills, fever Eyes: denies: eye pain, vision change ENT: denies: ear pain, throat pain Respiratory: cough, shortness of breath, wheezing Cardiovascular: edema. denies: chest pain Gastrointestinal: denies: abdominal pain, vomiting Genitourinary: denies: dysuria, frequency Musculoskeletal: myalgia. denies: joint swelling Skin: denies: rash, lesions Neurological: denies: weakness, numbness Physical Exam - Physical Exam Vital Signs: Vital Signs 10/28/18 10/28/18 13:56 14:29 Temperature 98.5 F Pulse Rate 120 H 98 H Respiratory 20 24 Rate Blood Pressure 144/101 Blood Pressure 142/106 [Right] O2 Sat by Pulse 100 97 Oximetry Physical Exam: GENERAL: The patient is well-developed well-nourished. HEENT: Normocephalic. Atraumatic. Patient has moist mucous membranes. EYES: Extraocular motions are intact. Pupils are equal and reactive to light bilaterally. NECK: Supple. Trachea is midline. CHEST/LUNGS: Mild to moderate wheezing throughout the chest. There is some tachypnea but no accessory muscle use. There is no respiratory distress noted. HEART/CARDIOVASCULAR: Regular. There is no tachycardia. There is no obvious murmur. ABDOMEN: Abdomen is soft, nontender. Patient has normal bowel sounds. Morbidly obese habitus. SKIN: Skin is warm and dry. NEURO: The patient is awake, alert, and oriented. The patient is cooperative. The patient has no focal neurologic deficits. The patient has normal speech. MUSCULOSKELETAL: There is no tenderness or deformity. There is no evidence of acute injury. ED Course Vital Signs 10/28/18 10/28/18 13:56 14:29 Temperature 98.5 F Pulse Rate 120 H 98 H Respiratory 20 24 Rate Blood Pressure 144/101 Blood Pressure 142/106 [Right] O2 Sat by Pulse 100 97 Oximetry ED Medical Decision Making - Lab Data Result diagrams: 10/28/18 14:36 10/28/18 14:36 - EKG Data -: EKG Interpreted by Me EKG shows normal: sinus rhythm, axis (left axis deviation), intervals, QRS c omplexes, ST-T waves Rate: tachycardia (109 bpm) - EKG Data When compared to previous EKG there are: no significant change Interpretation: unchanged when compared t (10/08/18) - Radiology Data Radiology results: report reviewed, image reviewed interpreted by me: Chest x-ray does not show any pneumothorax, pleural effusion, pneumonia or obvious focal consolidation. PROCEDURE: Nuclear medicine ventilation and perfusion lung scan. TECHNIQUE: Ventilation imaging was done in the posterior projection using 15 mCi of xenon-133 gas. Perfusion imaging was done in multiple projections using 5 mCi of technetium 90 9M MAA. HISTORY: SOB, elevated dimer . COMPARISONS: Comparison chest radiograph 10/28/2018. FINDINGS: There is symmetrical, homogeneous ventilation bilaterally. There is no trapping of xenon gas during the washout phase of the study. The perfusion images are also homogeneous. There are no significant perfusion defects identified. The lung scan is normal and there is an extremely low probability of pulmonary embolism. IMPRESSION: Normal lung scan. This document is electronically signed by Sourav Davis MD., October 28 2018 05:55:38 PM ET Transcribed By: SHIRA Dictated By: SOURAV DAVIS MD Electronically Authenticated By: SOURAV DAVIS MD Signed Date/Time: 10/28/18 1082 - Medical Decision Making Patient presents to the emergency department with a few days of shortness of breath as well as some left-sided body pain. She does have mild to moderate wheezing and bronchospasm. She was given breathing treatments, Solu-Medrol. Chest x-ray does not show any focal consolidation, pneumothorax, pneumonia, pleural effusions, or any other acute process. She did have an elevated and equivocal d-dimer and therefore a ventilation perfusion scan was done but it came back low probability for pulmonary embolism. After all the treatment, the patient still complains of feeling short of breath and has some exertional dyspnea. For this reason the patient will be admitted to the hospital for further evaluation and treatment. - Differential Diagnosis COPD, PE, pneumonia, asthma Critical Care Time: No Critical care attestation.: If time is entered above; I have spent that time in minutes in the direct care of this critically ill patient, excluding procedure time. ED Disposition Clinical Impression: Dyspnea, Acute exacerbation of chronic obstructive pulmonary disease (COPD), HTN (hypertension) Disposition: OP ADMIT IP TO THIS HOSP Is pt being admited?: Yes Condition: Fair Instructions: Chronic Obstructive Pulmonary Disease (ED), Hypertension (ED) Referrals: SANTOSH AHMADI MD [Primary Care Provider] - 3-5 Days Time of Disposition: 19:11
[2018-10-28 15:03] LABS: Hematocrit 39.6 % (30.3-42.9); Hemoglobin 13.6 gm/dl (10.1-14.3); Mean Corpuscular HGB Conc 34 % (30-34); Mean Corpuscular Volume 108 fl (79-97); Platelet Count 215 K/mm3 (140-440); Red Blood Count 3.67 M/mm3 (3.65-5.03); Red Cell Distribution Width 13.6 % (13.2-15.2)
--- NOTE | 2018-10-28 15:05 | XRay Report ---
AP CHEST: HISTORY: Dyspnea AP view of the chest demonstrates a normal mediastinal and cardiac contour with clear lungs and normal bony and soft tissue structures. No significant change since 10/08/18. IMPRESSION: Unremarkable AP chest.
[2018-10-28] MEDS ORDERED: DUONEB *Not for PRN Use IH ONE (15:08)
[2018-10-28] MEDS ORDERED: SOLU-Medrol IV ONE (15:08)
[2018-10-28 15:11] LABS: INR 0.96 (0.87-1.13)
[2018-10-28 15:12] LABS: Partial Thromboplastin Time 25.3 Sec. (24.2-36.6)
[2018-10-28 15:15] LABS: Basophils % (Auto) 0.4 % (0.0-1.8); Eosinophils % (Auto) 0.7 % (0.0-4.3); Lymphocytes % (Auto) 37.1 % (13.4-35.0); Monocytes # (Auto) 0.5 K/mm3 (0.0-0.8); Monocytes % (Auto) 8.3 % (0.0-7.3)
[2018-10-28 15:22] LABS: Alanine Aminotransferase 12 units/L (7-56); BUN/Creatinine Ratio 11; Blood Urea Nitrogen 8 mg/dL (7-17); Calcium 8.9 mg/dL (8.4-10.2); Hemolysis Index 29
[2018-10-28] MEDS ORDERED: HumuLIN R IV ONE (15:31)
[2018-10-28] MEDS ORDERED: K-DUR PO ONE (15:53)
[2018-10-28 16:36] LABS: Bilirubin,Urine NEG (Negative); Blood,Urine NEG (Negative); Color,Urine Yellow (Yellow); Mucus,Urine FEW /HPF; Protein,Urine <15 mg/dL mg/dL (Negative); Urobilinogen,Urine < 2.0 mg/dL (<2.0)
[2018-10-28 16:37] LABS: Band Neutrophils # (Manual) 0.1 K/mm3; Basophils % (Manual) 0 % (0.0-1.8); Large Platelets Few; Platelet Estimate Cons; RBC Morphology Normal; Total Cells Counted 100
[2018-10-28] MEDS ORDERED: MORPHINE IV ONE (17:26)
--- NOTE | 2018-10-28 17:57 | Nuclear Medicine Report ---
PROCEDURE: Nuclear medicine ventilation and perfusion lung scan. TECHNIQUE: Ventilation imaging was done in the posterior projection using 15 mCi of xenon-133 gas. P erfusion imaging was done in multiple projections using 5 mCi of technetium 90 9M MAA. HISTORY: SOB, elevated dimer . COMPARISONS: Comparison chest radiograph 10/28/2018. FINDINGS: There is symmetrical, homogeneous ventilation bilaterally. There is no trapping of xenon gas during t he washout phase of the study. The perfusion images are also homogeneous. There are no significant pe rfusion defects identified. The lung scan is normal and there is an extremely low probability of pulm onary embolism. IMPRESSION: Normal lung scan. This document is electronically signed by Sourav Camacho MD., October 28 2018 05:55:38 PM ET
[2018-10-28] MEDS ORDERED: D50W (25GM) Syringe IV PRN (22:33)
[2018-10-28] MEDS ORDERED: TESSALON PERLES PO PRN (22:40)
[2018-10-28] MEDS ORDERED: BENTYL PO PRN (22:40)
[2018-10-28] MEDS ORDERED: SENOKOT S PO PRN (22:40)
[2018-10-29] MEDS ORDERED: KCL 10MEQ/100ML 10 MEQ/100 ML BAG IV ONE (00:34)
[2018-10-29] MEDS: KCL 10MEQ/100ML 10 MEQ/100 ML BAG IV SCH ×4 (00:35→05:07)
[2018-10-29 01:46] LABS: Creatine Kinase MB < 1.0 ng/mL (0.0-4.0)
[2018-10-29] MEDS ORDERED: NACL 0.45% 1000 ML 1,000 ML IV ONE (02:27)
[2018-10-29] MEDS: HumuLIN R SUB-Q SCH ×5 (03:09→22:35)
[2018-10-29 06:13] LABS: Creatine Kinase MB 2.5 ng/mL (0.0-4.0)
[2018-10-29] MEDS: SOLU-Medrol IV SCH ×3 (06:39→22:37)
[2018-10-29] MEDS ORDERED: HumuLIN R SUB-Q SCH ×3 (07:30→22:00)
--- NOTE | 2018-10-29 08:01 | Progress Note ---
Assessment and Plan Assessment and plan: --Hypokalemia; replenished per protocol and monitor levels Check magnesium --Uncontrolled blood sugars/hyperglycemia Probably secondary to noncompliance, Accu-Chek sliding scale coverage and ADA diet Long-acting insulin, check hemoglobin A1c partly secondary to steroid use, Diabetic education, nutrition education --Mild pseudo hyponatremia; secondary to hypoglycemia and improve once the blood sugars are under control --Acute on chronic hypoxic respiratory failure; due to COPD exacerbation Oxygen, nebulizers, IV steroids, IV antibiotics, inhalation steroids Supportive care --Vaginitis; probable yeast infection, Diflucan 150mg one dose, patient needs to see [employer] upon discharge --History of HIV; not on any medication Patient advised to see health department/private upon discharge --Morbid obesity; BMI 43.7 Patient needs weight reduction when medically stable, may benefit from outpatient bariatric Surgical evaluation for weight reduction program upon discharge --Medical noncompliance; counseling done advised to comply with medications diet and follow-up visits --Osteoarthritis knees; supportive care, physical therapy evaluation and treatment --DVT prophylaxis; Lovenox --Full Code Plan of care is reviewed with the patient and her nurse History Interval history: Patient seen and examined medical records reviewed Blood Sugars remain uncontrolled, patient claims compliance with her medications Also complains of lump from some vaginal itching and yeast infection Morbidly obese, alert awake oriented Not in acute distress Vital signs reviewed Hospitalist Physical - Constitutional Vitals: Temp Pulse Resp BP Pulse Ox 97.3 F L 97 H 16 148/90 97 10/29/18 01:39 10/29/18 01:39 10/29/18 01:39 10/29/18 01:39 10/29/18 01:39 General appearance: Present: no acute distress, well-nourished, obese (morbidly obese) - EENT Eyes: Present: PERRL, EOM intact - Neck Neck: Present: supple, normal ROM - Respiratory Respiratory effort: normal Respiratory: bilateral: diminished, rales, negative: rhonchi, wheezing - Cardiovascular Rhythm: regular Heart Sounds: Present: S1 & S2 - Extremities Extremities: no ischemia, abnormal (osteoarthritis knees) Extremity abnormal: edema - Abdominal General gastrointestinal: soft, non-tender, non-distended, normal bowel sounds - Integumentary Integumentary: Present: clear, warm - Psychiatric Psychiatric: appropriate mood/affect, cooperative - Neurologic Neurologic: moves all extremities Results - Labs CBC & Chem 7: 10/28/18 14:36 10/29/18 02:31 Labs: Laboratory Last Values WBC 5.0 K/mm3 (4.5-11.0) 10/28/18 14:36 RBC 3.67 M/mm3 (3.65-5.03) 10/28/18 14:36 Hgb 13.6 gm/dl (10.1-14.3) 10/28/18 14:36 Hct 39.6 % (30.3-42.9) 10/28/18 14:36 MCV 108 fl (79-97) H 10/28/18 14:36 MCH 37 pg (28-32) H 10/28/18 14:36 MCHC 34 % (30-34) 10/28/18 14:36 RDW 13.6 % (13.2-15.2) 10/28/18 14:36 Plt Count 215 K/mm3 (140-440) 10/28/18 14:36 Lymph % (Auto) 37.1 % (13.4-35.0) H 10/28/18 14:36 Mccreary % (Auto) 8.3 % (0.0-7.3) H 10/28/18 14:36 Eos % (Auto) 0.7 % (0.0-4.3) 10/28/18 14:36 Baso % (Auto) 0.4 % (0.0-1.8) 10/28/18 14:36 Lymph # 2.0 K/mm3 (1.2-5.4) 10/28/18 14:36 Mccreary # 0.5 K/mm3 (0.0-0.8) 10/28/18 14:36 Eos # 0.0 K/mm3 (0.0-0.4) 10/28/18 14:36 Baso # 0.0 K/mm3 (0.0-0.1) 10/28/18 14:36 Add Manual Diff Complete 10/28/18 14:36 Total Counted 100 10/28/18 14:36 Seg Neutrophils % 53.5 % (40.0-70.0) 10/28/18 14:36 Seg Neuts % (Manual) 56.0 % (40.0-70.0) 10/28/18 14:36 Band Neutrophils % 1.0 % 10/28/18 14:36 Lymphocytes % (Manual) 30.0 % (13.4-35.0) 10/28/18 14:36 Reactive Lymphs % (Man) 1.0 % 10/28/18 14:36 Monocytes % (Manual) 10.0 % (0.0-7.3) H 10/28/18 14:36 Eosinophils % (Manual) 2.0 % (0.0-4.3) 10/28/18 14:36 Basophils % (Manual) 0 % (0.0-1.8) 10/28/18 14:36 Metamyelocytes % 0 % 10/28/18 14:36 Myelocytes % 0 % 10/28/18 14:36 Promyelocytes % 0 % 10/28/18 14:36 Blast Cells % 0 % 10/28/18 14:36 Nucleated RBC % Not Reportable 10/28/18 14:36 Seg Neutrophils # 2.9 K/mm3 (1.8-7.7) 10/28/18 14:36 Seg Neutrophils # Man 2.8 K/mm3 (1.8-7.7) 10/28/18 14:36 Band Neutrophils # 0.1 K/mm3 10/28/18 14:36 Lymphocytes # (Manual) 1.5 K/mm3 (1.2-5.4) 10/28/18 14:36 Abs React Lymphs (Man) 0.1 K/mm3 10/28/18 14:36 Monocytes # (Manual) 0.5 K/mm3 (0.0-0.8) 10/28/18 14:36 Eosinophils # (Manual) 0.1 K/mm3 (0.0-0.4) 10/28/18 14:36 Basophils # (Manual) 0.0 K/mm3 (0.0-0.1) 10/28/18 14:36 Metamyelocytes # 0.0 K/mm3 10/28/18 14:36 Myelocytes # 0.0 K/mm3 10/28/18 14:36 Promyelocytes # 0.0 K/mm3 10/28/18 14:36 Blast Cells # 0.0 K/mm3 10/28/18 14:36 WBC Morphology Not Reportable 10/28/18 14:36 Hypersegmented Neuts Not Reportable 10/28/18 14:36 Hyposegmented Neuts Not Reportable 10/28/18 14:36 Hypogranular Neuts Not Reportable 10/28/18 14:36 Smudge Cells Not Reportable 10/28/18 14:36 Toxic Granulation Not Reportable 10/28/18 14:36 Toxic Vacuolation Not Reportable 10/28/18 14:36 Dohle Bodies Not Reportable 10/28/18 14:36 Pelger-Huet Anomaly Not Reportable 10/28/18 14:36 Susan Rods Not Reportable 10/28/18 14:36 Platelet Estimate Cons 10/28/18 14:36 Clumped Platelets Not Reportable 10/28/18 14:36 Plt Clumps, EDTA Not Reportable 10/28/18 14:36 Large Platelets Few 10/28/18 14:36 Giant Platelets Not Reportable 10/28/18 14:36 Platelet Satelliting Not Reportable 10/28/18 14:36 Plt Morphology Comment Not Reportable 10/28/18 14:36 RBC Morphology Normal 10/28/18 14:36 Dimorphic RBCs Not Reportable 10/28/18 14:36 Polychromasia Not Reportable 10/28/18 14:36 Hypochromasia Not Reportable 10/28/18 14:36 Poikilocytosis Not Reportable 10/28/18 14:36 Anisocytosis Not Reportable 10/28/18 14:36 Microcytosis Not Reportable 10/28/18 14:36 Macrocytosis Not Reportable 10/28/18 14:36 Spherocytes Not Reportable 10/28/18 14:36 Pappenheimer Bodies Not Reportable 10/28/18 14:36 Sickle Cells Not Reportable 10/28/18 14:36 Target Cells Not Reportable 10/28/18 14:36 Tear Drop Cells Not Reportable 10/28/18 14:36 Ovalocytes Not Reportable 10/28/18 14:36 Helmet Cells Not Reportable 10/28/18 14:36 [place] Bodies Not Reportable 10/28/18 14:36 [place] Rings Not Reportable 10/28/18 14:36 Aileen Cells Not Reportable 10/28/18 14:36 Bite Cells Not Reportable 10/28/18 14:36 Crenated Cell Not Reportable 10/28/18 14:36 Elliptocytes Not Reportable 10/28/18 14:36 Acanthocytes (Spur) Not Reportable 10/28/18 14:36 Rouleaux Not Reportable 10/28/18 14:36 Hemoglobin C Crystals Not Reportable 10/28/18 14:36 Schistocytes Not Reportable 10/28/18 14:36 Malaria parasites Not Reportable 10/28/18 14:36 Barry Bodies Not Reportable 10/28/18 14:36 Hem Pathologist Commnt No 10/28/18 14:36 PT 13.4 Sec. (12.2-14.9) 10/28/18 14:36 INR 0.96 (0.87-1.13) 10/28/18 14:36 APTT 25.3 Sec. (24.2-36.6) 10/28/18 14:36 D-Dimer 744.56 ng/mlDDU (0-234) H 10/28/18 14:36 VBG pH 7.427 (7.320-7.420) H 10/28/18 14:36 Sodium 136 mmol/L (137-145) L 10/28/18 14:36 Potassium 2.9 mmol/L (3.6-5.0) L* 10/28/18 14:36 Chloride 91.2 mmol/L (98-107) L 10/28/18 14:36 Carbon Dioxide 28 mmol/L (22-30) 10/28/18 14:36 Anion Gap 20 mmol/L 10/28/18 14:36 BUN 8 mg/dL (7-17) 10/28/18 14:36 Creatinine 0.7 mg/dL (0.7-1.2) 10/28/18 14:36 Estimated GFR > 60 ml/min 10/28/18 14:36 BUN/Creatinine Ratio 11 % 10/28/18 14:36 Glucose 642 mg/dL (65-100) H* 10/29/18 02:31 POC Glucose 416 (70-105) H 10/29/18 05:53 Calcium 8.9 mg/dL (8.4-10.2) 10/28/18 14:36 Total Bilirubin 0.30 mg/dL (0.1-1.2) 10/28/18 14:36 AST 16 units/L (5-40) 10/28/18 14:36 ALT 12 units/L (7-56) 10/28/18 14:36 Alkaline Phosphatase 137 units/L (35-129) H 10/28/18 14:36 Total Creatine Kinase 191 units/L (30-135) H 10/29/18 04:35 CK-MB (CK-2) 2.5 ng/mL (0.0-4.0) 10/29/18 04:35 CK-MB (CK-2) Rel Index 1.3 (0-4) 10/29/18 04:35 Troponin T < 0.010 ng/mL (0.00-0.029) 10/29/18 04:35 NT-Pro-B Natriuret Pep 21.50 pg/mL (0-900) 10/28/18 14:36 Total Protein 7.3 g/dL (6.3-8.2) 10/28/18 14:36 Albumin 4.0 g/dL (3.9-5) 10/28/18 14:36 Albumin/Globulin Ratio 1.2 % 10/28/18 14:36 Urine Color Yellow (Yellow) 10/28/18 16:10 Urine Turbidity Clear (Clear) 10/28/18 16:10 Urine pH 5.0 (5.0-7.0) 10/28/18 16:10 Ur Specific [place] 1.031 (1.003-1.030) H 10/28/18 16:10 Urine Protein <15 mg/dl mg/dL (Negative) 10/28/18 16:10 Urine Glucose (UA) >=500 mg/dL (Negative) 10/28/18 16:10 Urine Ketones Neg mg/dL (Negative) 10/28/18 16:10 Urine Blood Neg (Negative) 10/28/18 16:10 Urine Nitrite Neg (Negative) 10/28/18 16:10 Urine Bilirubin Neg (Negative) 10/28/18 16:10 Urine Urobilinogen < 2.0 mg/dL (<2.0) 10/28/18 16:10 Ur Leukocyte Esterase Neg (Negative) 10/28/18 16:10 Urine WBC (Auto) 6.0 /HPF (0.0-6.0) 10/28/18 16:10 Urine RBC (Auto) 2.0 /HPF (0.0-6.0) 10/28/18 16:10 U Epithel Cells (Auto) 3.0 /HPF (0-13.0) 10/28/18 16:10 Urine Mucus Few /HPF 10/28/18 16:10
[2018-10-29] MEDS ORDERED: TESSALON PERLES PO PRN (08:08)
[2018-10-29] MEDS: DUONEB *Not for PRN Use IH SCH ×4 (08:48→19:54)
[2018-10-29] MEDS ORDERED: DIFLUCAN PO ONE (10:21)
--- NOTE | 2018-10-29 10:58 | Vascular Lab Report ---
PROCEDURE: VL VENOUS DUPLEX LE BILAT TECHNIQUE: Transverse longitudinal sonograms obtained with hart scale sonography. Spectral and color Doppler evaluation. Duplex study. Compression and augmentation. HISTORY: elev d-dimer / swelling lower extremity/r/o DVT COMPARISONS: None FINDINGS: The bilateral common femoral, superficial femoral, popliteal and visualized calf veins demonstrate no rmal flow with Doppler. No filling defect. Unremarkable compression and augmentation. No evidence of deep venous thrombosis either lower extremity. IMPRESSION: No evidence of deep venous thrombosis of either lower extremity.. This document is electronically signed by Romario Gonzales MD., October 29 2018 10:55:50 AM ET
[2018-10-29] MEDS: NORVASC PO SCH (11:00)
[2018-10-29] MEDS: ULTRAM PO PRN ×2 (11:00→22:33)
[2018-10-29] MEDS: PROTONIX PO SCH (11:00)
[2018-10-29] MEDS: DILANTIN PO SCH (11:00)
[2018-10-29] MEDS: LASIX PO SCH (11:01)
[2018-10-29] MEDS: HEPARIN SUB-Q SCH ×2 (11:02→22:36)
[2018-10-29] MEDS: MIRALAX 3350 PO SCH (11:05)
--- NOTE | 2018-10-29 11:07 | History and Physical Report ---
CHIEF COMPLAINT: Shortness of breath. HISTORY OF PRESENTING ILLNESS: The patient is a 63-year-old female who has been having shortness of breath going on for 2 days and also the patient stated that she was feeling very weak and has history of associated dry cough and wheezing, but denies history of chest pain. Denies history of fever or chills. The patient's sugar level was high according to EMS recording. PAST MEDICAL HISTORY: Pertinent for hypertension, diabetes mellitus, seizure disorder, bipolar disorder, schizophrenia, asthma, HIV infection, spinal stenosis, C diff infection. PAST SURGICAL HISTORY: Pertinent for hysterectomy, right arm skin graft. FAMILY HISTORY: Noncontributory. SOCIAL HISTORY: The patient does not smoke, does not drink alcohol, and does not use illicit drugs. MEDICATIONS: The patient is on the following medications; amlodipine 5 mg by mouth daily, Dilantin 125 mg by mouth daily; Lasix 40 mg by mouth daily; Januvia tablet one by mouth daily; potassium chloride daily, dose unknown; Protonix 40 mg daily; albuterol nebulizer 2.5 mg by inhalation every 4 hours as needed for shortness of breath; Advair Diskus 250/50 one puff twice daily; Tessalon Perles 100 mg by mouth every 8 hours; lispro insulin 50 units subcutaneous a.c.; MiraLax 17 g p.o. daily; Seroquel 200 mg by mouth at bedtime; sennoside/docusate sodium two each p.o. every night; Toujeo SoloStar 45 units subcutaneous every night; Flagyl 500 mg by mouth twice daily; Bentyl or dicyclomine 20 mg by mouth 4 times daily; Ultram 50 mg by mouth every 6 hours. ALLERGIES: THE PATIENT IS ALLERGIC TO IBUPROFEN, TETRACYCLINE, AND SHELLFISH DERIVATIVES. REVIEW OF SYSTEMS: CONSTITUTIONAL: There is no fever, no chills, no diaphoresis. HEENT: There is no headache or sore throat. CARDIOVASCULAR SYSTEM: There is no chest pain or orthopnea. RESPIRATORY SYSTEM: Shortness of breath is present. Cough is present. Wheezing is present. GASTROINTESTINAL SYSTEM: There is no nausea, no vomiting. No abdominal pain, diarrhea, or constipation. NEUROLOGICAL SYSTEM: There is no numbness, no dizziness, and no altered mental status. MUSCULOSKELETAL SYSTEM: There is no joint pain or swelling. DERMATOLOGICAL SYSTEM: There is no skin rash or itching. GENITOURINARY SYSTEM: There is no dysuria, hematuria, or flank pain. Rest of system review is normal. PHYSICAL EXAMINATION: GENERAL: At the time of exam, the patient was found to be alert, oriented x 3, and not in acute distress. VITAL SIGNS: At the initial time of presentation showed temperature of 98.5 degrees Fahrenheit, pulse of 120, respirations 20, blood pressure 144/101, O2 sat of 100% on oxygen. HEENT: Showed pupils to be equal, round, reactive to light and accommodating. Extraocular muscles were intact. NECK: Supple with no JVD or carotid bruit. CARDIOVASCULAR: Showed normal first and second heart sounds with no gallops or murmur. RESPIRATORY SYSTEM: Showed reduced air entry on both sides of the lungs with expiratory wheezing, but no use of accessory respiratory muscles. GASTROINTESTINAL SYSTEM: Showed abdomen to be full, soft, nontender with no organomegaly or rigidity. NEUROLOGICAL: Showed no focal deficit. MUSCULOSKELETAL SYSTEM: Showed no joint swelling or tenderness. DERMATOLOGICAL SYSTEM: Showed no skin rash. GENITOURINARY SYSTEM: Showed no costovertebral angle tenderness. PERTINENT LABORATORY AND IMAGING STUDIES: The patient had CBC done that came back unremarkable except for elevated lymphocyte count of 37.1% and elevated monocyte count of 8.3% in the CBC differential. The patient's coagulation studies show high D-dimer of 744.5. The patient's chemistry showed low sodium level, low potassium level of 2.9 with elevated blood glucose level of 377. The patient's cardiac enzymes were unremarkable. Urinalysis shows high specific gravity of 1.031, otherwise unremarkable. DIAGNOSES: 1. Chronic obstructive pulmonary disease exacerbation. 2. Hypokalemia. 3. Diabetes mellitus with hyperglycemia. 4. HIV infection. PLAN OF ACTION: 1. The patient will be admitted to medical surgical argueta on remote tele. 2. The patient will be on IV Solu-Medrol 60 mg every 8 hours. 3. The patient will be on IV Levaquin 750 mg daily and will be on Duo nebulizers t.i.d. 4. The patient will be on Accu-Cheks before meals and at bedtime followed by moderate dose sliding scale using Regular insulin coverage. 5. The patient's diet will be consistent carbohydrate, low-sodium diet. 6. The patient will have cardiac enzymes involving troponin and CPK checked serially every 6 hours x 2 more levels. 7. The patient will be on home medications as shown in the medication reconciliation section. JOB# [id number] [facility]/WENDY SANCHEZ
--- NOTE | 2018-10-29 16:20 | XRay Report ---
PROCEDURE: XR CHEST 1V AP TECHNIQUE: Frontal chest radiograph. HISTORY: Central Line Placement COMPARISONS: 10/28/2018. FINDINGS: Right IJ center venous catheter tip projects in the lower SVC. Unchanged aortic calculi. The cardiome diastinal silhouette is normal. No consolidation. No pleural effusion. No pneumothorax. No acute osseous abnormality. IMPRESSION: No acute process in the chest. Right IJ central venous catheter tip projecting the lower SVC. This document is electronically signed by Bailey Cheema., October 29 2018 04:18:06 PM ET
--- NOTE | 2018-10-29 16:42 | Procedure Note ---
Date of procedure: 10/29/18 Pre-op diagnosis: COPD Exacerbation Post-op diagnosis: same Procedure: RIJ Central line placement, under ultrasound guidance Pt prepped and draped in usual sterile fashion. Timeout taken to verify correct patient, procedure, and operative site. Local anesthesia obtained with Lidocaine 1%. Ultrasound used to identify RIJV without difficulty. Seldinger technique used to access the RIJV. Guidewire advanced into the RIJV and the seeker needle removed. Scalpel used to incise the skin, and dilator then passed over the guidewire and subsequently removed. Triple lumen catheter advanced into RIJV over guidewire. Guidewire removed. Biopatch placed at incision site. Triple lumen catheter sewn in place. All 3 ports flush and draw with ease. Postop chest x ray is normal, without evidence of pneumothorax. Anesthesia: local Surgeon: TYESHA DAVISON Estimated blood loss: minimal Pathology: none Condition: stable Disposition: floor
[2018-10-29] MEDS: LEVAQUIN 750MG/150ML 750 MG/150 ML BAG IV SCH (17:41)
[2018-10-29] MEDS ORDERED: VANDAZOLE VG SCH (22:00)
[2018-10-30] MEDS: SOLU-Medrol IV SCH ×3 (06:25→22:48)
[2018-10-30] MEDS: NACL 0.45% 1000 ML 1,000 ML IV SCH ×2 (06:26→18:38)
[2018-10-30] MEDS: DUONEB *Not for PRN Use IH SCH ×4 (07:09→20:14)
[2018-10-30] MEDS: HumuLIN R SUB-Q SCH ×4 (08:39→22:46)
[2018-10-30] MEDS: ULTRAM PO PRN ×2 (09:11→18:37)
--- NOTE | 2018-10-30 12:14 | Progress Note ---
Assessment and Plan Assessment and plan: --Acute on chronic hypoxic respiratory failure; due to COPD exacerbation Oxygen, nebulizers, IV steroids, IV antibiotics, inhalation steroids Supportive care --Elevated d-dimer is; negative PE, negative DVT --Hypokalemia; replenished per protocol and monitor levels Check magnesium --Uncontrolled blood sugars/hyperglycemia Probably secondary to noncompliance, Accu-Chek sliding scale coverage and ADA diet Long-acting insulin, check hemoglobin A1c partly secondary to steroid use, Diabetic education, nutrition education --Mild pseudo hyponatremia; secondary to hypoglycemia and improve once the blood sugars are under control --Vaginitis; probable yeast infection, Diflucan 150mg one dose, patient needs to see [employer] upon discharge --History of HIV; not on any medication Patient advised to see health department/private upon discharge --Morbid obesity; BMI 43.7 Patient needs weight reduction when medically stable, may benefit from outpatient bariatric Surgical evaluation for weight reduction program upon discharge --Medical noncompliance; counseling done advised to comply with medications diet and follow-up visits --Osteoarthritis knees; supportive care, physical therapy evaluation and treatment --DVT prophylaxis; Lovenox --Full Code Plan of care is reviewed with the patient and her nurse History Interval history: Patient seen and exam and medical records reviewed Nontender events reported by the nursing staff Impression worsening uncontrolled Patient is alert awake oriented 3 Vital signs reviewed Morbidly obese Hospitalist Physical - Constitutional Vitals: Temp Pulse Resp BP Pulse Ox 98.1 F 100 H 20 130/90 92 10/30/18 06:24 10/30/18 07:20 10/30/18 07:20 10/30/18 06:24 10/30/18 06:24 General appearance: Present: no acute distress, well-nourished, obese (morbidly obese) - EENT Eyes: Present: PERRL, EOM intact - Neck Neck: Present: supple, normal ROM - Respiratory Respiratory effort: normal Respiratory: bilateral: diminished, rhonchi, negative: rales, wheezing - Cardiovascular Rhythm: regular Heart Sounds: Present: S1 & S2 - Extremities Extremities: no ischemia, No edema - Abdominal General gastrointestinal: soft, non-tender, non-distended, normal bowel sounds - Integumentary Integumentary: Present: clear, warm - Psychiatric Psychiatric: appropriate mood/affect, cooperative - Neurologic Neurologic: moves all extremities Results - Labs CBC & Chem 7: 03/08/19 14:36 10/29/18 14:39 Labs: Laboratory Last Values WBC 5.0 K/mm3 (4.5-11.0) 10/28/18 14:36 RBC 3.67 M/mm3 (3.65-5.03) 10/28/18 14:36 Hgb 13.6 gm/dl (10.1-14.3) 10/28/18 14:36 Hct 39.6 % (30.3-42.9) 10/28/18 14:36 MCV 108 fl (79-97) H 10/28/18 14:36 MCH 37 pg (28-32) H 10/28/18 14:36 MCHC 34 % (30-34) 10/28/18 14:36 RDW 13.6 % (13.2-15.2) 10/28/18 14:36 Plt Count 215 K/mm3 (140-440) 10/28/18 14:36 Lymph % (Auto) 37.1 % (13.4-35.0) H 10/28/18 14:36 Boundary % (Auto) 8.3 % (0.0-7.3) H 10/28/18 14:36 Eos % (Auto) 0.7 % (0.0-4.3) 10/28/18 14:36 Baso % (Auto) 0.4 % (0.0-1.8) 10/28/18 14:36 Lymph # 2.0 K/mm3 (1.2-5.4) 10/28/18 14:36 Boundary # 0.5 K/mm3 (0.0-0.8) 10/28/18 14:36 Eos # 0.0 K/mm3 (0.0-0.4) 10/28/18 14:36 Baso # 0.0 K/mm3 (0.0-0.1) 10/28/18 14:36 Add Manual Diff Complete 10/28/18 14:36 Total Counted 100 10/28/18 14:36 Seg Neutrophils % 53.5 % (40.0-70.0) 10/28/18 14:36 Seg Neuts % (Manual) 56.0 % (40.0-70.0) 10/28/18 14:36 Band Neutrophils % 1.0 % 10/28/18 14:36 Lymphocytes % (Manual) 30.0 % (13.4-35.0) 10/28/18 14:36 Reactive Lymphs % (Man) 1.0 % 10/28/18 14:36 Monocytes % (Manual) 10.0 % (0.0-7.3) H 10/28/18 14:36 Eosinophils % (Manual) 2.0 % (0.0-4.3) 10/28/18 14:36 Basophils % (Manual) 0 % (0.0-1.8) 10/28/18 14:36 Metamyelocytes % 0 % 10/28/18 14:36 Myelocytes % 0 % 10/28/18 14:36 Promyelocytes % 0 % 10/28/18 14:36 Blast Cells % 0 % 10/28/18 14:36 Nucleated RBC % Not Reportable 10/28/18 14:36 Seg Neutrophils # 2.9 K/mm3 (1.8-7.7) 10/28/18 14:36 Seg Neutrophils # Man 2.8 K/mm3 (1.8-7.7) 10/28/18 14:36 Band Neutrophils # 0.1 K/mm3 10/28/18 14:36 Lymphocytes # (Manual) 1.5 K/mm3 (1.2-5.4) 10/28/18 14:36 Abs React Lymphs (Man) 0.1 K/mm3 10/28/18 14:36 Monocytes # (Manual) 0.5 K/mm3 (0.0-0.8) 10/28/18 14:36 Eosinophils # (Manual) 0.1 K/mm3 (0.0-0.4) 10/28/18 14:36 Basophils # (Manual) 0.0 K/mm3 (0.0-0.1) 10/28/18 14:36 Metamyelocytes # 0.0 K/mm3 10/28/18 14:36 Myelocytes # 0.0 K/mm3 10/28/18 14:36 Promyelocytes # 0.0 K/mm3 10/28/18 14:36 Blast Cells # 0.0 K/mm3 10/28/18 14:36 WBC Morphology Not Reportable 10/28/18 14:36 Hypersegmented Neuts Not Reportable 10/28/18 14:36 Hyposegmented Neuts Not Reportable 10/28/18 14:36 Hypogranular Neuts Not Reportable 10/28/18 14:36 Smudge Cells Not Reportable 10/28/18 14:36 Toxic Granulation Not Reportable 10/28/18 14:36 Toxic Vacuolation Not Reportable 10/28/18 14:36 Dohle Bodies Not Reportable 10/28/18 14:36 Pelger-Huet Anomaly Not Reportable 10/28/18 14:36 Susan Rods Not Reportable 10/28/18 14:36 Platelet Estimate Cons 10/28/18 14:36 Clumped Platelets Not Reportable 10/28/18 14:36 Plt Clumps, EDTA Not Reportable 10/28/18 14:36 Large Platelets Few 10/28/18 14:36 Giant Platelets Not Reportable 10/28/18 14:36 Platelet Satelliting Not Reportable 10/28/18 14:36 Plt Morphology Comment Not Reportable 10/28/18 14:36 RBC Morphology Normal 10/28/18 14:36 Dimorphic RBCs Not Reportable 10/28/18 14:36 Polychromasia Not Reportable 10/28/18 14:36 Hypochromasia Not Reportable 10/28/18 14:36 Poikilocytosis Not Reportable 10/28/18 14:36 Anisocytosis Not Reportable 10/28/18 14:36 Microcytosis Not Reportable 10/28/18 14:36 Macrocytosis Not Reportable 10/28/18 14:36 Spherocytes Not Reportable 10/28/18 14:36 Pappenheimer Bodies Not Reportable 10/28/18 14:36 Sickle Cells Not Reportable 10/28/18 14:36 Target Cells Not Reportable 10/28/18 14:36 Tear Drop Cells Not Reportable 10/28/18 14:36 Ovalocytes Not Reportable 10/28/18 14:36 Helmet Cells Not Reportable 10/28/18 14:36 Ochoa-Kief Bodies Not Reportable 10/28/18 14:36 [place] Rings Not Reportable 10/28/18 14:36 [place] Cells Not Reportable 10/28/18 14:36 Bite Cells Not Reportable 10/28/18 14:36 Crenated Cell Not Reportable 10/28/18 14:36 Elliptocytes Not Reportable 10/28/18 14:36 Acanthocytes (Spur) Not Reportable 10/28/18 14:36 Rouleaux Not Reportable 10/28/18 14:36 Hemoglobin C Crystals Not Reportable 10/28/18 14:36 Schistocytes Not Reportable 10/28/18 14:36 Malaria parasites Not Reportable 10/28/18 14:36 Barry Bodies Not Reportable 10/28/18 14:36 Hem Pathologist Commnt No 10/28/18 14:36 PT 13.4 Sec. (12.2-14.9) 10/28/18 14:36 INR 0.96 (0.87-1.13) 10/28/18 14:36 APTT 25.3 Sec. (24.2-36.6) 10/28/18 14:36 D-Dimer 744.56 ng/mlDDU (0-234) H 10/28/18 14:36 VBG pH 7.427 (7.320-7.420) H 10/28/18 14:36 Sodium 136 mmol/L (137-145) L 10/28/18 14:36 Potassium 2.9 mmol/L (3.6-5.0) L* 10/28/18 14:36 Chloride 91.2 mmol/L (98-107) L 10/28/18 14:36 Carbon Dioxide 28 mmol/L (22-30) 10/28/18 14:36 Anion Gap 20 mmol/L 10/28/18 14:36 BUN 8 mg/dL (7-17) 10/28/18 14:36 Creatinine 0.7 mg/dL (0.7-1.2) 10/28/18 14:36 Estimated GFR > 60 ml/min 10/28/18 14:36 BUN/Creatinine Ratio 11 % 10/28/18 14:36 Glucose 307 mg/dL (65-100) H 10/29/18 14:39 POC Glucose 395 (70-105) H 10/30/18 08:22 Calcium 8.9 mg/dL (8.4-10.2) 10/28/18 14:36 Total Bilirubin 0.30 mg/dL (0.1-1.2) 10/28/18 14:36 AST 16 units/L (5-40) 10/28/18 14:36 ALT 12 units/L (7-56) 10/28/18 14:36 Alkaline Phosphatase 137 units/L (35-129) H 10/28/18 14:36 Total Creatine Kinase 191 units/L (30-135) H 10/29/18 04:35 CK-MB (CK-2) 2.5 ng/mL (0.0-4.0) 10/29/18 04:35 CK-MB (CK-2) Rel Index 1.3 (0-4) 10/29/18 04:35 Troponin T < 0.010 ng/mL (0.00-0.029) 10/29/18 04:35 NT-Pro-B Natriuret Pep 21.50 pg/mL (0-900) 10/28/18 14:36 Total Protein 7.3 g/dL (6.3-8.2) 10/28/18 14:36 Albumin 4.0 g/dL (3.9-5) 10/28/18 14:36 Albumin/Globulin Ratio 1.2 % 10/28/18 14:36 Urine Color Yellow (Yellow) 10/28/18 16:10 Urine Turbidity Clear (Clear) 10/28/18 16:10 Urine pH 5.0 (5.0-7.0) 10/28/18 16:10 Ur Specific [place] 1.031 (1.003-1.030) H 10/28/18 16:10 Urine Protein <15 mg/dl mg/dL (Negative) 10/28/18 16:10 Urine Glucose (UA) >=500 mg/dL (Negative) 10/28/18 16:10 Urine Ketones Neg mg/dL (Negative) 10/28/18 16:10 Urine Blood Neg (Negative) 10/28/18 16:10 Urine Nitrite Neg (Negative) 10/28/18 16:10 Urine Bilirubin Neg (Negative) 10/28/18 16:10 Urine Urobilinogen < 2.0 mg/dL (<2.0) 10/28/18 16:10 Ur Leukocyte Esterase Neg (Negative) 10/28/18 16:10 Urine WBC (Auto) 6.0 /HPF (0.0-6.0) 10/28/18 16:10 Urine RBC (Auto) 2.0 /HPF (0.0-6.0) 10/28/18 16:10 U Epithel Cells (Auto) 3.0 /HPF (0-13.0) 10/28/18 16:10 Urine Mucus Few /HPF 10/28/18 16:10
[2018-10-30] MEDS: MIRALAX 3350 PO SCH (12:23)
[2018-10-30] MEDS: DILANTIN PO SCH (12:23)
[2018-10-30] MEDS: LEVAQUIN 750MG/150ML 750 MG/150 ML BAG IV SCH (12:23)
[2018-10-30] MEDS: PROTONIX PO SCH (12:24)
[2018-10-30] MEDS: HEPARIN SUB-Q SCH ×2 (12:24→22:47)
[2018-10-30] MEDS: NORVASC PO SCH (12:24)
[2018-10-30] MEDS: LASIX PO SCH (12:25)
[2018-10-30] MEDS: ZOFRAN IV PRN ×2 (14:23→22:48)
[2018-10-30] MEDS: GENVOYA PO SCH (18:33)
[2018-10-31] MEDS: SOLU-Medrol IV SCH (06:15)
[2018-10-31 07:10] LABS: Basophils % (Auto) 0.2 % (0.0-1.8); Hematocrit 34.6 % (30.3-42.9); Hemoglobin 11.6 gm/dl (10.1-14.3); Lymphocytes # (Auto) 1.2 K/mm3 (1.2-5.4); Lymphocytes % (Auto) 23.1 % (13.4-35.0); Mean Corpuscular HGB Conc 34 % (30-34); Mean Corpuscular Volume 108 fl (79-97); Monocytes # (Auto) 0.2 K/mm3 (0.0-0.8); Monocytes % (Auto) 3.5 % (0.0-7.3); Platelet Count 197 K/mm3 (140-440); Red Blood Count 3.22 M/mm3 (3.65-5.03); Red Cell Distribution Width 13.9 % (13.2-15.2)
[2018-10-31] MEDS: DUONEB *Not for PRN Use IH SCH ×3 (07:27→16:43)
[2018-10-31 07:41] LABS: BUN/Creatinine Ratio 20; Blood Urea Nitrogen 14 mg/dL (7-17); Calcium 8.9 mg/dL (8.4-10.2); Hemolysis Index 0
[2018-10-31] MEDS: HumuLIN R SUB-Q SCH ×2 (08:49→12:24)
[2018-10-31] MEDS: ZOFRAN IV PRN (08:57)
[2018-10-31] MEDS: ULTRAM PO PRN (08:57)
[2018-10-31] MEDS: NACL 0.45% 1000 ML 1,000 ML IV SCH (08:58)
[2018-10-31] MEDS: HEPARIN SUB-Q SCH (09:47)
[2018-10-31] MEDS: DILANTIN PO SCH (09:47)
[2018-10-31] MEDS: PROTONIX PO SCH (09:47)
[2018-10-31] MEDS: LEVAQUIN 750MG/150ML 750 MG/150 ML BAG IV SCH (09:47)
[2018-10-31] MEDS: MIRALAX 3350 PO SCH (09:47)
[2018-10-31] MEDS: LASIX PO SCH (09:47)
[2018-10-31] MEDS: NORVASC PO SCH (09:50)
--- NOTE | 2018-10-31 13:16 | Discharge Summary ---
Providers - Providers Date of Admission: 10/28/18 22:29 Date of discharge: 10/31/18 Attending physician: MIGDALIA SANCHEZ [facility] Reason for admission: Shortness of breath and uncontrolled blood sugars Condition: Fair Pertinent studies: CXR, VQ scan, LE doppler Hospital course: 63 yr old female pt was admitted with shortness of breath and uncontrolled diabetes. Initial work up is consistent with hyperosmolar state and pseudohyponatremia. Symptomatically managed,blood sugars significantly improved, Patient received Diabetic education and nutrition education. Today patient is comfortable,no new complaints,vital signs stable. Physical exam ,unremarkable. Pt is stable at discharge Discharge Diagnosis: --Severe hyperglycemia with diabetic hyperosmolar state; present on admission, Improved, --Uncontrolled blood sugars/hyperglycemia secondary to noncompliance, SSC,, Long-acting insulin,A1c 14.2 Diabetic education, nutrition education --Mild pseudo hyponatremia; secondary to hypoglycemia and improve once the blood sugars are under control --Acute on chronic hypoxic respiratory failure; due to COPD exacerbation Oxygen, nebulizers, IV steroids, IV antibiotics, inhalation steroids --Elevated d-dimer is; negative PE, negative DVT --Hypokalemia; replenished per protocol and monitor levels --Severe hyperglycemia with diabetic hyperosmolar state; POA,resolved --Uncontrolled blood sugars/hyperglycemia: improved --Mild pseudo hyponatremia; secondary to hyperglycemia ,improved --Vaginitis; probable yeast infection,Diflucan 150mg one dose, to see LEGAL COUNSEL upon discharge --History of HIV; not on any medication,f/u health department/private upon discharge --Morbid obesity; BMI 43.7; advised weight reduction when medically stable, --Medical noncompliance; advised compliance --Osteoarthritis knees; supportive care, physical therapy evaluation and treatment --DVT prophylaxis; Lovenox --Full Code Patient is stable at discharge Disposition: DC-01 TO HOME OR SELFCARE Time spent for discharge: 32 min Core Measure Documentation - Palliative Care Palliative Care/ Comfort Measures: Not Applicable - Core Measures Any of the following diagnoses?: none Exam - Constitutional Vitals: Temp Pulse Resp BP Pulse Ox 98.2 F 101 H 18 107/60 92 10/31/18 12:44 10/31/18 12:44 10/31/18 12:44 10/31/18 12:44 10/31/18 12:44 General appearance: Present: no acute distress, well-nourished - EENT Eyes: Present: PERRL, EOM intact - Neck Neck: Present: supple, normal ROM - Respiratory Respiratory effort: normal Respiratory: bilateral: diminished, wheezing, negative: rales, rhonchi - Cardiovascular Rhythm: regular Heart Sounds: Present: S1 & S2 - Extremities Extremities: no ischemia, No edema - Abdominal General gastrointestinal: Present: soft, non-tender, non-distended, normal bowel sounds - Integumentary Integumentary: Present: clear, warm - Musculoskeletal Musculoskeletal: strength equal bilaterally - Psychiatric Psychiatric: appropriate mood/affect, cooperative - Neurologic Neurologic: CNII-XII intact, moves all extremities Plan Activity: advance as tolerated, fall precautions Diet: diabetic Additional Instructions: Follow-up private pulmonary in 1-2 weeks. Follow-up health department/private ID per schedule [facility] [Primary Care Provider] - 3-5 Days Prescriptions: RX: levoFLOXacin [Levaquin TAB] 750 mg PO Q24H #5 tablet RX: Insulin NPH/Regular [NovoLIN 70/30] 30 unit SUB-Q BIDDIAB 30 Days units RX: Prednisone [predniSONE 10 mg (6-Day Pack, 21 Tabs)] 10 mg PO .TAPER #1 tab.ds.pk
[2018-10-31] MEDS: GENVOYA PO SCH ×2 (14:40→14:42)
[2018-10-31 15:11] VITALS: BP 102/61
[2018-10-31] MEDS ORDERED: TRIPLE ANTIBIOTIC TP ONE (15:13)
[2018-11-01] MEDS ORDERED: LEVAQUIN PO SCH (10:00)
== END 2018-10-31 19:00 | disposition home or self-care (01) | DRG 637 ==
LOC: ED 13:25 → 3A 22:29
PROVIDERS: ADMIT Internal Medicine; ATTEND Internal Medicine
PROC: 02HV33Z Insertion of Infusion Device into Superior Vena Cava, Percutaneous Approach (ICD-10-PCS; principal; 2018-10-29)
PROC: B548ZZA Ultrasonography of Superior Vena Cava, Guidance (ICD-10-PCS; 2018-10-29)
DX: E11.00 Type 2 diabetes mellitus with hyperosmolarity without nonketotic hyperglycemic-hyperosmolar coma (NKHHC) (principal); J96.21 Acute and chronic respiratory failure with hypoxia; J44.1 Chronic obstructive pulmonary disease with (acute) exacerbation; E87.1 Hypo-osmolality and hyponatremia; Z68.43 Body mass index [BMI] 50.0-59.9, adult; E87.6 Hypokalemia; E11.65 Type 2 diabetes mellitus with hyperglycemia; Z21 Asymptomatic human immunodeficiency virus [HIV] infection status; G40.909 Epilepsy, unspecified, not intractable, without status epilepticus; I50.9 Heart failure, unspecified; N76.0 Acute vaginitis; E66.01 Morbid (severe) obesity due to excess calories; I11.0 Hypertensive heart disease with heart failure; M17.0 Bilateral primary osteoarthritis of knee; F20.9 Schizophrenia, unspecified; F31.9 Bipolar disorder, unspecified; Z88.6 Allergy status to analgesic agent; Z88.1 Allergy status to other antibiotic agents; Z91.013 Allergy to seafood; Z90.710 Acquired absence of both cervix and uterus; Z79.51 Long term (current) use of inhaled steroids; Z79.899 Other long term (current) drug therapy; Z79.4 Long term (current) use of insulin; Z91.19 Patient's noncompliance with other medical treatment and regimen; Z71.3 Dietary counseling and surveillance
CPT/HCPCS: 36415; 71045; 78582; 80048; 80053; 81001; 82550; 82553; 82805; 82947; 82962; 83735; 83880; 84132; 84484; 85007; 85025; 85379; 85610; 85730; 93005; 93010; 93970; 94640; 94760; G0378; A6250; A9540; A9558; J1644; J1815; J1956; J2270; J2405; J2920; J2930; J3480; J7030

== ENCOUNTER 2018-12-09 10:41 | Inpatient (IN) | payer MEDICARE ==
[2018-12-09] MEDS ORDERED: ATROVENT IH ONE ×3 (10:45→12:07)
[2018-12-09] MEDS ORDERED: PROVENTIL IH ONE ×3 (10:45→12:06)
[2018-12-09] MEDS ORDERED: SOLU-Medrol IV ONE (11:52)
[2018-12-09] MEDS ORDERED: MAGNESIUM SULFATE 2GM/50ML 2 GM/50 ML BAG IV ONE (11:52)
--- NOTE | 2018-12-09 11:57 | Emergency Department Report ---
HPI - General Chief Complaint: Dyspnea/Respdistress Time Seen by Provider: 12/09/18 11:42 - HPI HPI: Room 21 The patient is 63-year-old female presented with a chief complaint of shortness of breath. The patient states for the past 3 days she has had shortness of breath as well as right-sided abdominal pain. Patient denies cough but admits to subjective fever. Patient currently gives her abdominal pain a score of 7- 8/10. Location: [See above] Duration: [See above] Quality: Pain Severity: 7-8/10 Modifying factors: [see above] Context: [see above] Mode of transportation: [not driving] ED Past Medical Hx - Past Medical History Hx Hypertension: Yes Hx Congestive Heart Failure: Yes Hx Diabetes: Yes Hx Arthritis: Yes (hands and legs) Hx Seizures: Yes Hx Psychiatric Treatment: Yes (bipolar disorder; schziphornia) Hx Asthma: Yes Hx HIV: Yes (last CD4 344 spring 2018) Additional medical history: CDIFF, spinal stenosis - Surgical History Additional Surgical History: hysterectomy; rt arm skin graph - Family History Family history: no significant - Social History Smoking Status: Never Smoker Substance Use Type: None - Medications Home Medications: Home Medications Medication Instructions Recorded Confirmed Last Taken Type amLODIPine [Norvasc] 5 mg PO QDAY #30 tablet 07/29/17 08/31/18 1 Day Ago Rx ~07/13/18 Phenytoin Sodium Extended 125 mg PO DAILY 30 Days capsule 09/15/17 08/31/18 1 Day Ago Rx [Dilantin] ~07/13/18 Furosemide [Lasix TAB] 40 mg PO QDAY 03/23/18 08/31/18 1 Day Ago History ~07/13/18 Genvoya Tablet 1 tab PO DAILY 03/23/18 08/31/18 1 Day Ago History ~07/13/18 Potassium Chloride [Klor-Con 10] 1 tab PO QDAY 03/23/18 08/31/18 1 Day Ago History ~07/13/18 Pantoprazole [Protonix TAB] 40 mg PO DAILY 08/31/18 08/31/18 Unknown History ALBUTEROL NEB's [Proventil 0.083% 2.5 mg IH Q4H PRN #120 neb 09/04/18 Unknown Rx NEBS] Advair 250-50 Diskus 1 puff PO BID #1 09/04/18 Unknown Rx Albuterol Sulfate [Ventolin Hfa] 2 puff IH Q4-6H PRN #1 hfa.aer.ad 09/04/18 Unknown Rx Polyethylene Glycol 3350 [Miralax] 17 gm PO DAILY 30 Days powder 09/04/18 Unknown Rx QUEtiapine [SEROquel] 200 mg PO QHS #30 tablet 09/04/18 Unknown Rx Sennosides/Docusate Sodium [Senna 2 each PO HS PRN #60 tablet 09/04/18 Unknown Rx Plus Tablet] Insulin NPH/Regular [NovoLIN 70/30] 30 unit SUB-Q BIDDIAB 30 Days 10/31/18 Unknown Rx units ED Review of Systems ROS: Stated complaint: CARL Other details as noted in HPI Constitutional: fever Eyes: denies: eye pain ENT: denies: throat pain Respiratory: shortness of breath. denies: cough Cardiovascular: denies: chest pain Endocrine: no symptoms reported Gastrointestinal: nausea, vomiting Musculoskeletal: denies: back pain Neurological: denies: headache Physical Exam - Physical Exam Vital Signs: Vital Signs 12/09/18 10:55 Temperature 98.6 F Pulse Rate 115 H Respiratory 18 Rate Blood Pressure 138/60 O2 Sat by Pulse 97 Oximetry Physical Exam: GENERAL: The patient is well-developed well-nourished female lying on stretcher not appearing to be in acute distress. [] HEENT: Normocephalic. Atraumatic. Extraocular motions are intact. Patient has moist mucous membranes. NECK: Supple. Trachea midline CHEST/LUNGS: Clear to auscultation. There is no respiratory distress noted. HEART/CARDIOVASCULAR: Regular. There is no tachycardia. There is no gallop rub or murmur. ABDOMEN: Abdomen is soft, with mild right-sided discomfort to palpation. No rebound or guarding. Patient has normal bowel sounds. There is no abdominal distention. SKIN: There is no diaphoresis. NEURO: The patient is awake, alert, and oriented. The patient is cooperative. The patient has normal speech MUSCULOSKELETAL: There is no evidence of acute injury. ED Course Vital Signs 12/09/18 10:55 Temperature 98.6 F Pulse Rate 115 H Respiratory 18 Rate Blood Pressure 138/60 O2 Sat by Pulse 97 Oximetry ED Medical Decision Making - Lab Data Result diagrams: 12/09/18 12:12 12/09/18 12:12 Laboratory Tests 12/09/18 12/09/18 12/09/18 12:12 12:12 12:12 WBC 9.1 RBC 4.16 Hgb 15.0 H Hct 43.1 H MCV 104 H MCH 36 H MCHC 35 H RDW 13.7 Plt Count 224 Lymph % (Auto) 44.9 H [place] % (Auto) 6.7 Eos % (Auto) 0.2 Baso % (Auto) 0.9 Lymph # 4.1 [place] # 0.6 Eos # 0.0 Baso # 0.1 Seg Neutrophils % 47.3 Seg Neutrophils # 4.3 PT 12.9 INR 0.92 APTT 26.5 Sodium 136 L Potassium 2.3 L* Chloride 89.7 L Carbon Dioxide 28 Anion Gap 21 BUN 13 Creatinine 0.9 Estimated GFR > 60 BUN/Creatinine Ratio 14 Glucose 485 H Calcium 9.2 Total Bilirubin 0.40 AST 13 ALT 9 Alkaline Phosphatase 151 H Troponin T < 0.010 Total Protein 7.7 Albumin 3.7 L Albumin/Globulin Ratio 0.9 Lipase 24 Urine Color Urine Turbidity Urine pH Ur Specific Sims Urine Protein Urine Glucose (UA) Urine Ketones Urine Blood Urine Nitrite Urine Bilirubin Urine Urobilinogen Ur Leukocyte Esterase Urine WBC (Auto) Urine RBC (Auto) U Epithel Cells (Auto) 12/09/18 13:02 WBC RBC Hgb Hct MCV MCH MCHC RDW Plt Count Lymph % (Auto) [place] % (Auto) Eos % (Auto) Baso % (Auto) Lymph # Cand[place] # Eos # Baso # Seg Neutrophils % Seg Neutrophils # PT INR APTT Sodium Potassium Chloride Carbon Dioxide Anion Gap BUN Creatinine Estimated GFR BUN/Creatinine Ratio Glucose Calcium Total Bilirubin AST ALT Alkaline Phosphatase Troponin T Total Protein Albumin Albumin/Globulin Ratio Lipase Urine Color Yellow Urine Turbidity Slightly-cloudy Urine pH 6.0 Ur Specific Sims 1.036 H Urine Protein <15 mg/dl Urine Glucose (UA) >=500 Urine Ketones Neg Urine Blood Sm Urine Nitrite Neg Urine Bilirubin Neg Urine Urobilinogen < 2.0 Ur Leukocyte Esterase Sm Urine WBC (Auto) 18.0 H Urine RBC (Auto) 4.0 U Epithel Cells (Auto) 2.0 - EKG Data -: EKG Interpreted by In EKG shows normal: sinus rhythm Rate: tachycardia (119 bpm) - EKG Data When compared to previous EKG there are: previous EKG unavailable Interpretation: other (no ischemic changes seen) - Radiology Data Radiology results: report reviewed (CT abdomen and pelvis), image reviewed (chest x-ray, CT abdomen and pelvis) interpreted by me: Chest x-ray-left lower lobe atelectasis. No definite focal infiltrates, no pneumothorax [facility] [address] [place] [address] Cat Scan Report Signed Patient: SIRI JEAN MR# : [id number] : 1955 Acct:[id number] Age/Sex: 63 / F ADM Date: 12/09/18 Loc: ED Attending Dr: Ordering Physician: ESVIN TRAN MD Date of Service: 12/09/18 Procedure(s): CT abdomen pelvis wo con Accession Number(s): [id number] cc: ESVIN TRAN MD CT ABDOMEN AND PELVIS WITHOUT CONTRAST INDICATION: Right-sided abdominal pain. COMPARISON: 10/09/2018 CT. FINDINGS: Noncontrast abdomen and pelvis CT performed. LUNG BASES: Aortic annulus calcifications again noted. Normal heart size. No effusions. Distal esophageal wall prominence/thickening, not excluded for gastroesophageal reflux and/or approximately 3.3 cm hiatal hernia, amongst others. ABDOMEN: Please note that sensitivity to detect small visceral lesions is limited due to the absence of intravenous or oral contrast. Stable tiny right hepatic lobe calcified granuloma posteriorly as on axial image 63, series 2. Right hepatic lobe 18.5 cm in midclavicular length. Otherwise grossly unremarkable unenhanced liver, spleen, gallbladder, pancreas, adrenals, slightly tortuous though nonaneurysmal abdominal aorta and IVC filter. Nonhydronephrotic kidneys without radiopaque calculi. No ascites or definite size significant adenopathy. Nonopacified GI tract evaluation limited, though grossly nonobstructive. Normal appendix with its tip about the midline as on axial image 108. Mild distal ascending and distal descending colon diverticulosis. Tiny fat containing umbilical hernia with a transverse neck of 0.6 cm. PELVIS: Uterus surgically absent with few pelvic phleboliths. Grossly unremarkable nonopacified urinary bladder and the rectosigmoid. No free fluid or significant adenopathy. Demineralized bones with stable approximately 5 mm anterolisthesis of L4 over L5 and disc degeneration/vacuum phenomenon. Mild degenerative changes as T8-T9 vacuum disc phenomenon and an approximately 1.4 cm T8 inferior endplate Schmorl's node incidentally noted. CONCLUSION: No significant interval change or definite acute significant CT abnormality on this limited, unenhanced exam in this patient with various findings as distal esophageal thickening/hiatal hernia, slightly prominent liver, IVC filter, col onic diverticulosis, hysterectomy and few bony degenerative changes, amongst others, as above. Please correlate. Thank you for the opportunity to participate in this patient's care. Transcribed By: RS Dictated By: DWIGHT HONG MD Electronically Authenticated By: DWIGHT HONG MD Signed Date/Time: 12/09/18 1255 DD/ 1243 TD/TT: 12/09/18 1255 - Differential Diagnosis asthma exacerbation, pneumonia, bronchitis, ACS, gastritis Critical care attestation.: If time is entered above; I have spent that time in minutes in the direct care of this critically ill patient, excluding procedure time. ED Disposition Clinical Impression: Shortness of breath, Acute asthma exacerbation, Hypokalemia Disposition: OP ADMIT IP TO THIS HOSP Is pt being admited?: Yes Does the pt Need Aspirin: Yes Condition: Fair Referrals: ANJELICA MIRAMONTES MD [Primary Care Provider] - 3-5 Days Time of Disposition: 13:44 (hospitalist paged (Dr Llanos))
[2018-12-09 12:20] LABS: Basophils # (Auto) 0.1 K/mm3 (0.0-0.1); Basophils % (Auto) 0.9 % (0.0-1.8); Eosinophils % (Auto) 0.2 % (0.0-4.3); Hematocrit 43.1 % (30.3-42.9); Lymphocytes # (Auto) 4.1 K/mm3 (1.2-5.4); Lymphocytes % (Auto) 44.9 % (13.4-35.0); Mean Corpuscular HGB Conc 35 % (30-34); Mean Corpuscular Volume 104 fl (79-97); Monocytes # (Auto) 0.6 K/mm3 (0.0-0.8); Monocytes % (Auto) 6.7 % (0.0-7.3); Platelet Count 224 K/mm3 (140-440); Red Blood Count 4.16 M/mm3 (3.65-5.03); Red Cell Distribution Width 13.7 % (13.2-15.2)
[2018-12-09 12:30] LABS: INR 0.92 (0.87-1.13)
[2018-12-09 12:31] LABS: Partial Thromboplastin Time 26.5 Sec. (24.2-36.6)
[2018-12-09 12:46] LABS: Alanine Aminotransferase 9 units/L (7-56); Albumin 3.7 g/dL (3.9-5); BUN/Creatinine Ratio 14; Blood Urea Nitrogen 13 mg/dL (7-17); Calcium 9.2 mg/dL (8.4-10.2); Hemolysis Index 10
[2018-12-09] MEDS ORDERED: K-DUR PO ONE (12:54)
--- NOTE | 2018-12-09 12:56 | Cat Scan Report ---
CT ABDOMEN AND PELVIS WITHOUT CONTRAST INDICATION: Right-sided abdominal pain. COMPARISON: 10/09/2018 CT. FINDINGS: Noncontrast abdomen and pelvis CT performed. LUNG BASES: Aortic annulus calcifications again noted. Normal heart size. No effusions. Distal esophageal wall prominence/thickening, not excluded for gastroesophageal reflux and/or approximately 3.3 cm hiatal hernia, amongst others. ABDOMEN: Please note that sensitivity to detect small visceral lesions is limited due to the absence of intravenous or oral contrast. Stable tiny right hepatic lobe calcified granuloma posteriorly as on axial image 63, series 2. Right hepatic lobe 18.5 cm in midclavicular length. Otherwise grossly unremarkable unenhanced liver, spleen, gallbladder, pancreas, adrenals, slightly tortuous though nonaneurysmal abdominal aorta and IVC filter. Nonhydronephrotic kidneys without radiopaque calculi. No ascites or definite size significant adenopathy. Nonopacified GI tract evaluation limited, though grossly nonobstructive. Normal appendix with its tip about the midline as on axial image 108. Mild distal ascending and distal descending colon diverticulosis. Tiny fat containing umbilical hernia with a transverse neck of 0.6 cm. PELVIS: Uterus surgically absent with few pelvic phleboliths. Grossly unremarkable nonopacified urinary bladder and the rectosigmoid. No free fluid or significant adenopathy. Demineralized bones with stable approximately 5 mm anterolisthesis of L4 over L5 and disc degeneration/vacuum phenomenon. Mild degenerative changes as T8-T9 vacuum disc phenomenon and an approximately 1.4 cm T8 inferior endplate Schmorl's node incidentally noted. CONCLUSION: No significant interval change or definite acute significant CT abnormality on this limited, unenhanced exam in this patient with various findings as distal esophageal thickening/hiatal hernia, slightly prominent liver, IVC filter, colonic diverticulosis, hysterectomy and few bony degenerative changes, amongst others, as above. Please correlate. Thank you for the opportunity to participate in this patient's care.
[2018-12-09 13:32] LABS: Bilirubin,Urine NEG (Negative); Blood,Urine SM (Negative); Color,Urine Yellow (Yellow); Protein,Urine <15 mg/dL mg/dL (Negative); Urobilinogen,Urine < 2.0 mg/dL (<2.0)
[2018-12-09] MEDS: KCL 10MEQ/100ML 10 MEQ/100 ML BAG IV SCH ×4 (13:44→17:06)
[2018-12-09] MEDS ORDERED: SUBLIMAZE IV ONE (13:45)
[2018-12-09] MEDS ORDERED: ZOFRAN IV ONE (13:45)
[2018-12-09] MEDS ORDERED: LEVAQUIN PO ONE (13:46)
--- NOTE | 2018-12-09 14:03 | History and Physical Report ---
History of Present Illness Chief complaint: I cant breathe History of present illness: 63 YO Female with COPD, DM, Seizure Disorder, HTN, Bipolar, Diastolic CHF, Schizophrenia, HIV presents to ED for evaluation. Pt states that she has experienced shortness of breath and over the past 3 days with worsening symptoms over the past 1 day. The patient has been using her inhaler and nebulizer at home without any relief. EMS notified and upon arrival the patient was found to be in distress and transported to [facility] ED. Pt seen and evaluated in ED and found to have COPD Exacerbation as well as UTI. Pt also acknowledges a bdominal discomfort as well as dysuria. Pt denies fever, chills, chest pain, palpitations, NVD, Syncope, Trauma, recent ill contacts, leg swelling, calf pain, prolonged travel/immobility, trauma, individual/family history of DVT/PE, or medication noncompliance. Pt admitted to medical floor. Prior admission on 10/28/18 reviewed. All listed medication reconciled at time of admission. Past History Past Medical History: COPD, diabetes, heart failure, HIV/AIDS, hypertension, seizures, other (Schizophrenia, Bipolar disorder) Past Surgical History: hysterectomy, Other (LUE Graft surgery) Social history: single. denies: smoking, alcohol abuse, prescription drug abuse Medications and Allergies Allergies Allergy/AdvReac Type Severity Reaction Status Date / Time shellfish derived Allergy Severe Shortness Verified 10/28/18 13:56 of Breath ibuprofen [From Motrin] Allergy Mild Shortness Verified 10/28/18 13:56 of Breath tetracycline Allergy Shortness Verified 10/28/18 13:56 of Breath Home Medications Medication Instructions Recorded Confirmed Last Taken Type amLODIPine [Norvasc] 5 mg PO QDAY #30 tablet 07/29/17 12/09/18 1 Day Ago Rx ~07/13/18 Phenytoin Sodium Extended 125 mg PO DAILY 30 Days capsule 09/15/17 12/09/18 1 Day Ago Rx [Dilantin] ~07/13/18 Furosemide [Lasix TAB] 40 mg PO QDAY 03/23/18 12/09/18 1 Day Ago History ~07/13/18 Genvoya Tablet 1 tab PO DAILY 03/23/18 12/09/18 1 Day Ago History ~07/13/18 Potassium Chloride [Klor-Con 10] 1 tab PO QDAY 03/23/18 12/09/18 1 Day Ago History ~07/13/18 Pantoprazole [Protonix TAB] 40 mg PO DAILY 08/31/18 12/09/18 Unknown History ALBUTEROL NEB's [Proventil 0.083% 2.5 mg IH Q4H PRN #120 neb 09/04/18 12/09/18 Unknown Rx NEBS] Advair 250-50 Diskus 1 puff PO BID #1 09/04/18 12/09/18 Unknown Rx Albuterol Sulfate [Ventolin Hfa] 2 puff IH Q4-6H PRN #1 hfa.aer.ad 09/04/18 12/09/18 Unknown Rx Polyethylene Glycol 3350 [Miralax] 17 gm PO DAILY 30 Days powder 09/04/18 12/09/18 Unknown Rx QUEtiapine [SEROquel] 200 mg PO QHS #30 tablet 09/04/18 12/09/18 Unknown Rx Sennosides/Docusate Sodium [Senna 2 each PO HS PRN #60 tablet 09/04/18 12/09/18 Unknown Rx Plus Tablet] Insulin NPH/Regular [NovoLIN 70/30] 30 unit SUB-Q BIDDIAB 30 Days 10/31/18 12/09/18 Unknown Rx units Active Meds: Active Medications Potassium Chloride (Kcl 10meq/100ml) 10 meq in 100 mls @ 100 mls/hr IV Q1H SKYLER Stop: 12/09/18 17:59 Last Admin: 12/09/18 13:44 Dose: 100 mls/hr Documented by: Review of Systems Constitutional: no weight loss, no weight gain, no fever, no chills Ears, nose, mouth and throat: no ear pain, no ear discharge, no tinnitis, no decreased hearing, no nose pain Breasts: no change in shape, no swelling, no mass Cardiovascular: no chest pain, no orthopnea, no palpitations, no rapid/irregular heart beat Respiratory: cough, cough with sputum, excessive sputum, shortness of breath Gastrointestinal: abdominal pain, no nausea, no vomiting, no diarrhea Genitourinary Female: no pelvic pain, no flank pain, no menorrhagia, no dysuria, no urinary frequency Rectal: no pain, no incontinence, no bleeding Musculoskeletal: no neck stiffness, no neck pain, no shooting arm pain, no arm numbness/tingling Integumentary: no rash, no pruritis, no redness, no sores, no wounds Neurological: no head injury, no transient paralysis, no paralysis, no weakness, no parathesias, no numbness, no tingling Psychiatric: no anxiety, no memory loss, no change in sleep habits, no sleep disturbances, no insomnia, no hypersomnia, no change in appetite Endocrine: no cold intolerance, no heat intolerance, no polyphagia, no excessive thirst, no polydipsia, no polyuria Hematologic/Lymphatic: no easy bruising, no easy bleeding, no lymphadenopathy, no lymphedema Allergic/Immunologic: no urticaria, no allergic rhinitis, no wheezing, no persistent infections, no anaphylaxis Exam - Constitutional Vitals: Temp Pulse Resp BP Pulse Ox 98.6 F 100 H 16 141/96 96 12/09/18 10:55 12/09/18 13:55 12/09/18 13:55 12/09/18 13:55 12/09/18 13:55 General appearance: Present: mild distress, obese - EENT Eyes: Present: PERRL ENT: hearing intact, clear oral mucosa - Neck Neck: Present: supple, normal ROM - Respiratory Respiratory effort: normal Respiratory: left: diminished, rhonchi - Cardiovascular Heart Sounds: Present: S1 & S2. Absent: rub, click - Extremities Extremities: pulses symmetrical, No edema Peripheral Pulses: within normal limits - Abdominal General gastrointestinal: Present: soft, non-tender, non-distended, normal bowel sounds Female genitourinary: Present: normal - Integumentary Integumentary: Present: clear, warm, dry - Musculoskeletal Musculoskeletal: gait normal, strength equal bilaterally - Psychiatric Psychiatric: appropriate mood/affect, intact judgment & insight - Neurologic Neurologic: CNII-XII intact, moves all extremities Results - Labs CBC & Chem 7: 12/09/18 12:12 12/09/18 12:12 Labs: Abnormal lab results 12/09/18 12/09/18 12/09/18 Range/Units 12:12 12:12 13:02 Hgb 15.0 H (10.1-14.3) gm/dl Hct 43.1 H (30.3-42.9) % MCV 104 H (79-97) fl MCH 36 H (28-32) pg MCHC 35 H (30-34) % Lymph % (Auto) 44.9 H (13.4-35.0) % Sodium 136 L (137-145) mmol/L Potassium 2.3 L* (3.6-5.0) mmol/L Chloride 89.7 L (98-107) mmol/L Glucose 485 H (65-100) mg/dL Alkaline Phosphatase 151 H (35-129) units/L Albumin 3.7 L (3.9-5) g/dL Ur Specific [place] 1.036 H (1.003-1.030) Urine WBC (Auto) 18.0 H (0.0-6.0) /HPF Assessment and Plan - Patient Problems (1) COPD with exacerbation Current Visit: Yes Status: Acute Plan to address problem: Supplemental oxygen, nebulizer therapy, chest x ray, pulse oximetry, steroid therapy, NIPPV as clinically indicated. D dimer (2) HTN (hypertension) Current Visit: Yes Status: Acute Qualifiers: Hypertension type: essential hypertension Qualified Code(s): I10 - Essential (primary) hypertension Plan to address problem: Monitor BP q shift, continue medical management. (3) Diabetes Current Visit: Yes Status: Acute Plan to address problem: ADA diet, insulin, accu check (4) AIDS Current Visit: No Status: Acute Plan to address problem: continue antiretroviral therapy, outpatient ID f/U (5) UTI (urinary tract infection) Current Visit: Yes Status: Acute Qualifiers: Encounter type: initial encounter Plan to address problem: IV antibiotic therapy, CBC, CMP, urinalysis. (6) DVT prophylaxis Current Visit: Yes Status: Acute Plan to address problem: SCD to BLE while in bed,
[2018-12-09] MEDS ORDERED: PROVENTIL IH PRN ×2 (14:07→14:08)
[2018-12-09] MEDS ORDERED: SENOKOT S PO PRN (14:07)
[2018-12-09] MEDS ORDERED: TYLENOL PO PRN (14:08)
[2018-12-09] MEDS ORDERED: D50W (25GM) Syringe IV PRN (14:58)
[2018-12-09] MEDS ORDERED: KCL 10MEQ/100ML 10 MEQ/100 ML BAG IV ONE (15:10)
--- NOTE | 2018-12-09 15:26 | XRay Report ---
PORTABLE CHEST INDICATION: Shortness of breath. COMPARISON: 10/29/2018 FINDINGS: Portable, frontal chest radiograph demonstrates improved cardiomegaly/smaller cardiomediastinal silhouette. Interval right IJ catheter removal. Lungs remain clear without significant pleural effusions or CHF. Intact lungs. EKG leads. CONCLUSION: No acute chest process with interval central catheter removal and improved cardiomegaly, as described. Please correlate. Thank you for the opportunity to participate in this patient's care.
[2018-12-09] MEDS: HumaLOG SUB-Q SCH ×2 (16:52→22:40)
[2018-12-09] MEDS ORDERED: NACL 0.9% 500 ML 500 ML ONE (17:05)
[2018-12-09] MEDS: BROVANA NEBU IH SCH (20:58)
[2018-12-09] MEDS: PULMICORT IH SCH (20:58)
[2018-12-09] MEDS ORDERED: ADVAIR PO SCH (22:00)
[2018-12-09] MEDS: SOLU-Medrol IV SCH (22:39)
[2018-12-09] MEDS: SODIUM CHLORIDE FLUSH SYRINGE 10 ML IV SCH (22:40)
[2018-12-09] MEDS ORDERED: MORPHINE IV ONE (23:24)
[2018-12-10] MEDS: ZOFRAN IV PRN ×3 (00:04→18:20)
[2018-12-10 05:46] LABS: Basophils % (Auto) 0.7 % (0.0-1.8); Hematocrit 39.9 % (30.3-42.9); Hemoglobin 13.5 gm/dl (10.1-14.3); Lymphocytes # (Auto) 1.2 K/mm3 (1.2-5.4); Lymphocytes % (Auto) 24.5 % (13.4-35.0); Mean Corpuscular HGB Conc 34 % (30-34); Mean Corpuscular Volume 105 fl (79-97); Monocytes # (Auto) 0.1 K/mm3 (0.0-0.8); Monocytes % (Auto) 2.8 % (0.0-7.3); Platelet Count 216 K/mm3 (140-440); Red Cell Distribution Width 13.9 % (13.2-15.2)
[2018-12-10] MEDS: LASIX IV SCH (06:13)
[2018-12-10 06:55] LABS: BUN/Creatinine Ratio 23; Blood Urea Nitrogen 18 mg/dL (7-17); Calcium 9.6 mg/dL (8.4-10.2); Hemolysis Index 2
[2018-12-10] MEDS: PULMICORT IH SCH ×2 (07:28→20:13)
[2018-12-10] MEDS: BROVANA NEBU IH SCH ×2 (07:28→20:13)
[2018-12-10] MEDS: HumaLOG SUB-Q SCH ×3 (08:41→18:13)
[2018-12-10] MEDS: DILANTIN PO SCH (09:01)
[2018-12-10] MEDS: GENVOYA (NF) PO SCH (09:02)
[2018-12-10] MEDS: PROTONIX PO SCH (09:02)
[2018-12-10] MEDS: SODIUM CHLORIDE FLUSH SYRINGE 10 ML IV SCH ×2 (09:02→21:49)
[2018-12-10] MEDS: K-DUR PO SCH (09:02)
[2018-12-10] MEDS: LEVAQUIN 500MG/100ML 500 MG/100 ML BAG IV SCH (09:02)
[2018-12-10] MEDS: MIRALAX 3350 PO PRN (09:03)
[2018-12-10] MEDS: SOLU-Medrol IV SCH ×2 (09:17→21:49)
[2018-12-10] MEDS: NORVASC PO SCH (09:27)
[2018-12-10] MEDS ORDERED: NON-FORMULARY (Polyethylene Glycol 3350 [Miralax] 17 GM) PO SCH (10:00)
[2018-12-10] MEDS ORDERED: GENVOYA PO SCH (10:00)
[2018-12-10] MEDS ORDERED: ZITHROMAX 500 MG in NACL 0.9% 250ML 250 ML IV SCH (10:00)
[2018-12-10] MEDS ORDERED: POTASSIUM CHLORIDE PO SCH (10:00)
[2018-12-10] MEDS ORDERED: DILANTIN PO SCH (10:00)
--- NOTE | 2018-12-10 14:26 | Progress Note ---
Subjective Date of service: 12/10/18 Interval history: Assessment and plan COPD exacerbation: Patient feeling better Presently has some mild cough with colored sputum Continue present management with DuoNeb solution , budesonide and arformoterol solutions via nebulizer and steroids Type 2 diabetes: Continue insulin sliding scale coverage Hypertension: Fair continue home medication History of bipolar disorder: Continue Seroquel HIV/AIDS: Continue home medications Seizure disorder: Continue Dilantin although the dose is inadequate and Dilantin level is subtherapeutic Subjective Patient is resting in the bed not in any acute distress she states that she feels a lot better and presently complains of some mild cough with mostly mucoid sputum. She complains of having had no bowel movement in 4 days She denies any chest pain, fever or chills sore throat nasal congestion nausea or vomiting abdominal pain or dysuria Physical examination: General examination: Well-developed well-nourished young female not in any acute distress HEENT: Normocephalic pupils are round reactive to light throat is clear Neck: Supple no significant leg lymphadenopathy no thyromegaly lungs diminished breath sounds bilaterally Heart S1-S2 regular rate and rhythm Abdomen is soft there is mild to moderate tenderness in the upper and mid abdomen no guarding or rigidity Extremities there is no leg edema [employer] patient is alert and oriented 3 cranial low-dose to 12 grossly intact there is no focal deficit Objective - Constitutional Vitals: Vital Signs - 12hr 12/10/18 12/10/18 12/10/18 04:13 04:14 06:10 Temperature 98.0 F 98.0 F Pulse Rate 85 85 Pulse Rate [ Anterior Bilateral Throughout] Respiratory 24 24 17 Rate Respiratory Rate [Anterior Bilateral Throughout] Blood Pressure 104/70 114/80 O2 Sat by Pulse 94 94 Oximetry 12/10/18 12/10/18 12/10/18 07:28 07:38 09:27 Temperature Pulse Rate 94 H Pulse Rate [ 89 88 Anterior Bilateral Throughout] Respiratory Rate Respiratory 18 20 Rate [Anterior Bilateral Throughout] Blood Pressure 109/76 O2 Sat by Pulse 97 Oximetry 12/10/18 11:15 Temperature Pulse Rate 95 H Pulse Rate [ Anterior Bilateral Throughout] Respiratory Rate Respiratory Rate [Anterior Bilateral Throughout] Blood Pressure O2 Sat by Pulse 94 Oximetry - Labs CBC & Chem 7: 12/10/18 05:23 12/10/18 05:23 Labs: Abnormal lab results 12/09/18 12/09/18 12/09/18 Range/Units 12:12 12:12 16:32 MCV (79-97) fl MCH (28-32) pg Seg Neutrophils % (40.0-70.0) % D-Dimer 543.00 H (0-234) ng/mlDDU Sodium (137-145) mmol/L Chloride (98-107) mmol/L BUN (7-17) mg/dL Glucose (65-100) mg/dL POC Glucose 422 H (70-105) Phenytoin 2.5 L (10.0-20.0) ug/mL 12/10/18 12/10/18 12/10/18 Range/Units 05:23 05:23 08:08 MCV 105 H (79-97) fl MCH 36 H (28-32) pg Seg Neutrophils % 72.0 H (40.0-70.0) % D-Dimer (0-234) ng/mlDDU Sodium 134 L (137-145) mmol/L Chloride 91.0 L (98-107) mmol/L BUN 18 H (7-17) mg/dL Glucose 379 H (65-100) mg/dL POC Glucose 348 H (70-105) Phenytoin (10.0-20.0) ug/mL 12/10/18 Range/Units 11:22 MCV (79-97) fl MCH (28-32) pg Seg Neutrophils % (40.0-70.0) % D-Dimer (0-234) ng/mlDDU Sodium (137-145) mmol/L Chloride (98-107) mmol/L BUN (7-17) mg/dL Glucose (65-100) mg/dL POC Glucose 343 H (70-105) Phenytoin (10.0-20.0) ug/mL
[2018-12-10] MEDS ORDERED: MIRALAX 3350 PO ONE (15:00)
[2018-12-10] MEDS: NORCO 5/325 PO PRN ×2 (15:16→21:49)
[2018-12-11] MEDS: HumaLOG SUB-Q SCH ×5 (02:13→22:05)
[2018-12-11] MEDS: LASIX IV SCH (06:34)
[2018-12-11] MEDS: PULMICORT IH SCH ×2 (07:14→20:51)
[2018-12-11] MEDS: BROVANA NEBU IH SCH ×2 (07:14→20:51)
[2018-12-11] MEDS: NORCO 5/325 PO PRN ×2 (08:08→17:00)
[2018-12-11] MEDS: ZOFRAN IV PRN ×2 (08:08→16:41)
--- NOTE | 2018-12-11 08:50 | Progress Note ---
Assessment and Plan Assessment and plan: Acute hypoxemic respiratory failure. Continue O2 and BiPAP as clinically indicated. Etiology secondary to COPD and OHS/ABBY. Acute COPD exacerbation. Continue with DuoNeb solution , budesonide and arfo rmoterol solutions via nebulizer and steroids Diabetes mellitus type 2. Continue sliding scale insulin and Accu-Cheks. Hypertension. Continue home antihypertensive medications. Bipolar disorder. Continue Seroquel. HIV/AIDS continue home medications Seizure disorder. Continue Dilantin although the dose is inadequate and Dilantin level is subtherapeutic OHS/ABBY. History Interval history: No new issues overnight. Patient still reports shortness of breath. Hospitalist Physical - Constitutional Vitals: Temp Pulse Resp BP Pulse Ox 97.7 F 88 20 120/84 97 12/11/18 05:47 12/11/18 07:14 12/11/18 07:14 12/11/18 05:47 12/11/18 07:14 General appearance: Present: no acute distress, obese - EENT Eyes: Present: PERRL, EOM intact ENT: hearing intact, clear oral mucosa, dentition normal - Neck Neck: Present: supple, normal ROM - Respiratory Respiratory effort: normal Respiratory: bilateral: CTA - Cardiovascular Rhythm: regular Heart Sounds: Present: S1 & S2. Absent: gallop, rub - Extremities Extremities: no ischemia, No edema, Full ROM - Abdominal General gastrointestinal: soft, non-tender, non-distended, normal bowel sounds - Integumentary Integumentary: Present: clear, warm, dry - Neurologic Neurologic: CNII-XII intact, moves all extremities Results - Labs CBC & Chem 7: 12/10/18 05:23 12/10/18 05:23 Labs: Laboratory Last Values WBC 4.9 K/mm3 (4.5-11.0) 12/10/18 05:23 RBC 3.80 M/mm3 (3.65-5.03) 12/10/18 05:23 Hgb 13.5 gm/dl (10.1-14.3) 12/10/18 05:23 Hct 39.9 % (30.3-42.9) 12/10/18 05:23 MCV 105 fl (79-97) H 12/10/18 05:23 MCH 36 pg (28-32) H 12/10/18 05:23 MCHC 34 % (30-34) 12/10/18 05:23 RDW 13.9 % (13.2-15.2) 12/10/18 05:23 Plt Count 216 K/mm3 (140-440) 12/10/18 05:23 Lymph % (Auto) 24.5 % (13.4-35.0) 12/10/18 05:23 [place] % (Auto) 2.8 % (0.0-7.3) 12/10/18 05:23 Eos % (Auto) 0.0 % (0.0-4.3) 12/10/18 05:23 Baso % (Auto) 0.7 % (0.0-1.8) 12/10/18 05:23 Lymph # 1.2 K/mm3 (1.2-5.4) 12/10/18 05:23 Edwards # 0.1 K/mm3 (0.0-0.8) 12/10/18 05:23 Eos # 0.0 K/mm3 (0.0-0.4) 12/10/18 05:23 Baso # 0.0 K/mm3 (0.0-0.1) 12/10/18 05:23 Seg Neutrophils % 72.0 % (40.0-70.0) H 12/10/18 05:23 Seg Neutrophils # 3.5 K/mm3 (1.8-7.7) 12/10/18 05:23 PT 12.9 Sec. (12.2-14.9) 12/09/18 12:12 INR 0.92 (0.87-1.13) 12/09/18 12:12 APTT 26.5 Sec. (24.2-36.6) 12/09/18 12:12 D-Dimer 543.00 ng/mlDDU (0-234) H 12/09/18 12:12 Sodium 134 mmol/L (137-145) L 12/10/18 05:23 Potassium 3.6 mmol/L (3.6-5.0) D 12/10/18 05:23 Chloride 91.0 mmol/L (98-107) L 12/10/18 05:23 Carbon Dioxide 28 mmol/L (22-30) 12/10/18 05:23 Anion Gap 19 mmol/L 12/10/18 05:23 BUN 18 mg/dL (7-17) H 12/10/18 05:23 Creatinine 0.8 mg/dL (0.7-1.2) 12/10/18 05:23 Estimated GFR > 60 ml/min 12/10/18 05:23 BUN/Creatinine Ratio 23 % 12/10/18 05:23 Glucose 379 mg/dL (65-100) H 12/10/18 05:23 POC Glucose 276 (70-105) H 12/11/18 07:35 Calcium 9.6 mg/dL (8.4-10.2) 12/10/18 05:23 Total Bilirubin 0.40 mg/dL (0.1-1.2) 12/09/18 12:12 AST 13 units/L (5-40) 12/09/18 12:12 ALT 9 units/L (7-56) 12/09/18 12:12 Alkaline Phosphatase 151 units/L (35-129) H 12/09/18 12:12 Troponin T < 0.010 ng/mL (0.00-0.029) 12/09/18 12:12 Total Protein 7.7 g/dL (6.3-8.2) 12/09/18 12:12 Albumin 3.7 g/dL (3.9-5) L 12/09/18 12:12 Albumin/Globulin Ratio 0.9 % 12/09/18 12:12 Lipase 24 units/L (13-60) 12/09/18 12:12 Urine Color Yellow (Yellow) 12/09/18 13:02 Urine Turbidity Slightly-cloudy (Clear) 12/09/18 13:02 Urine pH 6.0 (5.0-7.0) 12/09/18 13:02 Ur Specific [place] 1.036 (1.003-1.030) H 12/09/18 13:02 Urine Protein <15 mg/dl mg/dL (Negative) 12/09/18 13:02 Urine Glucose (UA) >=500 mg/dL (Negative) 12/09/18 13:02 Urine Ketones Neg mg/dL (Negative) 12/09/18 13:02 Urine Blood Sm (Negative) 12/09/18 13:02 Urine Nitrite Neg (Negative) 12/09/18 13:02 Urine Bilirubin Neg (Negative) 12/09/18 13:02 Urine Urobilinogen < 2.0 mg/dL (<2.0) 12/09/18 13:02 Ur Leukocyte Esterase Sm (Negative) 12/09/18 13:02 Urine WBC (Auto) 18.0 /HPF (0.0-6.0) H 12/09/18 13:02 Urine RBC (Auto) 4.0 /HPF (0.0-6.0) 12/09/18 13:02 U Epithel Cells (Auto) 2.0 /HPF (0-13.0) 12/09/18 13:02 Phenytoin 2.5 ug/mL (10.0-20.0) L 12/09/18 12:12 Active Medications - Current Medications Current Medications: Generic Name Dose Route Start Last Admin Trade Name Freq PRN Reason Stop Dose Admin Acetaminophen 650 mg 12/09/18 14:08 Tylenol PO Q4H PRN Pain MILD(1-3)/Fever >100.5/MOYER Acetaminophen/Hydrocodone Bitart 1 each 12/10/18 16:00 12/11/18 08:08 [place]mond 5/325 PO 1 each Q6H PRN Administration Pain, Moderate (4-6) Albuterol 2.5 mg 12/09/18 14:08 Proventil IH Q4HRT PRN Shortness Of Breath Amlodipine Besylate 5 mg 12/10/18 10:00 12/10/18 09:27 Norvasc PO 5 mg QDAY SKYLER Administration Arformoterol Tartrate 15 mcg 12/09/18 20:00 12/11/18 07:14 Brovana Nebu IH 15 mcg Q12HRT SKYLER Administration Budesonide 0.5 mg 12/09/18 20:00 12/11/18 07:14 Pulmicort IH 0.5 mg Q12HRT SKYLER Administration Dextrose 50 ml 12/09/18 14:58 D50w (25gm) Syringe IV PRN PRN Hypoglycemia Furosemide 20 mg 12/10/18 06:00 12/11/18 06:34 Lasix IV 20 mg DAILY@0600 SKYLER Administration Levofloxacin/Dextrose 500 mg in 100 mls @ 100 mls/hr 12/10/18 10:00 12/10/18 09:02 Levaquin 500mg/100ml IV 100 mls/hr Q24HR SKYLER Administration Protocol Insulin Human Isoph/Insulin Regular 30 unit 12/09/18 17:00 12/10/18 18:16 Humulin 70/30 SUB-Q 30 unit BIDDIAB SKYLER Administration Insulin Human Lispro 0 unit 12/09/18 16:30 12/11/18 02:13 Humalog SUB-Q 6 unit ACHS SKLYER Administration Protocol Methylprednisolone Sodium Succinate 40 mg 12/09/18 22:00 12/10/18 21:49 Solu-Medrol IV 40 mg Q12HR SKYLER Administration Ondansetron HCl 4 mg 12/09/18 14:08 12/11/18 08:08 Zofran IV 4 mg Q8H PRN Administration Nausea And Vomiting Pantoprazole Sodium 40 mg 12/10/18 10:00 12/10/18 09:02 Protonix PO 40 mg DAILY SKYLER Administration Phenytoin 125 mg 12/10/18 10:00 12/10/18 09:01 Dilantin PO 125 mg DAILY SKYLER Administration Polyethylene Glycol 17 gm 12/09/18 14:43 12/10/18 09:03 Miralax 3350 PO 17 gm QDAY PRN Administration Constipation Potassium Chloride 10 meq 12/10/18 10:00 12/10/18 09:02 K-Dur PO 10 meq QDAY SKYLER Administration Quetiapine Fumarate 200 mg 12/09/18 22:00 12/10/18 21:49 Seroquel PO 200 mg QHS SKYLER Administration Senna/Docusate Sodium 2 tab 12/09/18 14:07 Senokot S PO HS PRN Constipation Sodium Chloride 10 ml 12/09/18 22:00 12/10/18 21:49 Sodium Chloride Flush Syringe 10 Ml IV 10 ml BID SKYLER Administration Sodium Chloride 10 ml 12/09/18 14:08 Sodium Chloride Flush Syringe 10 Ml IV PRN PRN LINE FLUSH
[2018-12-11] MEDS: DILANTIN PO SCH (09:32)
[2018-12-11] MEDS: GENVOYA (NF) PO SCH (09:32)
[2018-12-11] MEDS: LEVAQUIN 500MG/100ML 500 MG/100 ML BAG IV SCH (09:33)
[2018-12-11] MEDS: K-DUR PO SCH (09:33)
[2018-12-11] MEDS: PROTONIX PO SCH (09:33)
[2018-12-11] MEDS: NORVASC PO SCH (09:33)
[2018-12-11] MEDS: SOLU-Medrol IV SCH ×2 (09:33→22:05)
[2018-12-11] MEDS: SODIUM CHLORIDE FLUSH SYRINGE 10 ML IV SCH ×2 (09:38→22:06)
[2018-12-11 10:46] LABS: Hematocrit 39.7 % (30.3-42.9); Hemoglobin 13.6 gm/dl (10.1-14.3); Mean Corpuscular HGB Conc 34 % (30-34); Mean Corpuscular Volume 105 fl (79-97); Platelet Count 230 K/mm3 (140-440); Red Blood Count 3.78 M/mm3 (3.65-5.03); Red Cell Distribution Width 14.1 % (13.2-15.2)
[2018-12-11 11:08] LABS: BUN/Creatinine Ratio 23; Blood Urea Nitrogen 21 mg/dL (7-17); Hemolysis Index 54
[2018-12-11] MEDS: MIRALAX 3350 PO PRN (13:03)
[2018-12-12] MEDS: LASIX IV SCH (06:29)
[2018-12-12] MEDS: ZOFRAN IV PRN ×3 (06:30→23:49)
[2018-12-12] MEDS: NORCO 5/325 PO PRN ×3 (06:31→23:49)
[2018-12-12] MEDS: BROVANA NEBU IH SCH ×2 (07:11→20:33)
[2018-12-12] MEDS: PULMICORT IH SCH ×2 (07:11→20:33)
[2018-12-12 07:30] LABS: BUN/Creatinine Ratio 30; Blood Urea Nitrogen 24 mg/dL (7-17); Calcium 8.9 mg/dL (8.4-10.2); Hemolysis Index 213
[2018-12-12] MEDS: HumaLOG SUB-Q SCH ×4 (07:30→23:09)
[2018-12-12 07:49] LABS: Basophils % (Auto) 0.1 % (0.0-1.8); Hematocrit 39.1 % (30.3-42.9); Hemoglobin 13.2 gm/dl (10.1-14.3); Lymphocytes # (Auto) 1.4 K/mm3 (1.2-5.4); Lymphocytes % (Auto) 22.4 % (13.4-35.0); Mean Corpuscular HGB Conc 34 % (30-34); Mean Corpuscular Volume 105 fl (79-97); Monocytes # (Auto) 0.3 K/mm3 (0.0-0.8); Monocytes % (Auto) 5.5 % (0.0-7.3); Platelet Count 228 K/mm3 (140-440); Red Blood Count 3.72 M/mm3 (3.65-5.03)
[2018-12-12] MEDS: SOLU-Medrol IV SCH ×2 (10:00→23:07)
[2018-12-12] MEDS: LEVAQUIN 500MG/100ML 500 MG/100 ML BAG IV SCH (10:04)
[2018-12-12] MEDS: GENVOYA (NF) PO SCH (10:04)
[2018-12-12] MEDS: NORVASC PO SCH (10:06)
[2018-12-12] MEDS: PROTONIX PO SCH (10:06)
[2018-12-12] MEDS: K-DUR PO SCH (10:06)
[2018-12-12] MEDS: DILANTIN PO SCH (10:06)
[2018-12-12] MEDS: SODIUM CHLORIDE FLUSH SYRINGE 10 ML IV SCH ×2 (10:07→23:08)
[2018-12-12] MEDS: MIRALAX 3350 PO PRN (10:17)
--- NOTE | 2018-12-12 11:06 | Progress Note ---
Assessment and Plan Assessment and plan: Acute hypoxemic respiratory failure. Continue O2 and BiPAP as clinically indicated. Etiology secondary to COPD and OHS/ABBY. Acute COPD exacerbation. Continue with DuoNeb solution , budesonide and arfo rmoterol solutions via nebulizer and steroids Diabetes mellitus type 2. Continue sliding scale insulin and Accu-Cheks. Hypertension. Continue home antihypertensive medications. Bipolar disorder. Continue Seroquel. HIV/AIDS continue home medications Seizure disorder. Continue Dilantin although the dose is inadequate and Dilantin level is subtherapeutic OHS/ABBY. History Interval history: No new issues overnight. Patient still reports shortness of breath. Hospitalist Physical - Constitutional Vitals: Temp Pulse Resp BP Pulse Ox 97.8 F 89 18 113/71 95 12/12/18 05:51 12/12/18 07:21 12/12/18 07:21 12/12/18 05:51 12/12/18 06:28 General appearance: Present: no acute distress, obese - EENT Eyes: Present: PERRL, EOM intact ENT: hearing intact, clear oral mucosa, dentition normal - Neck Neck: Present: supple, normal ROM - Respiratory Respiratory effort: normal Respiratory: bilateral: CTA - Cardiovascular Rhythm: regular Heart Sounds: Present: S1 & S2. Absent: gallop, rub - Extremities Extremities: no ischemia, No edema, Full ROM - Abdominal General gastrointestinal: soft, non-tender, non-distended, normal bowel sounds - Integumentary Integumentary: Present: clear, warm, dry - Neurologic Neurologic: CNII-XII intact, moves all extremities Results - Labs CBC & Chem 7: 12/12/18 07:26 12/12/18 06:08 Labs: Laboratory Last Values WBC 6.1 K/mm3 (4.5-11.0) 12/12/18 07:26 RBC 3.72 M/mm3 (3.65-5.03) 12/12/18 07:26 Hgb 13.2 gm/dl (10.1-14.3) 12/12/18 07:26 Hct 39.1 % (30.3-42.9) 12/12/18 07:26 MCV 105 fl (79-97) H 12/12/18 07:26 MCH 36 pg (28-32) H 12/12/18 07:26 MCHC 34 % (30-34) 12/12/18 07: RDW 14.0 % (13.2-15.2) 12/12/18 07:26 Plt Count 228 K/mm3 (140-440) 12/12/18 07:26 Lymph % (Auto) 22.4 % (13.4-35.0) 12/12/18 07: [place] % (Auto) 5.5 % (0.0-7.3) 12/12/18 07: Eos % (Auto) 0.0 % (0.0-4.3) 12/12/18 07: Baso % (Auto) 0.1 % (0.0-1.8) 12/12/18 07: Lymph # 1.4 K/mm3 (1.2-5.4) 12/12/18 07: [place] # 0.3 K/mm3 (0.0-0.8) 12/12/18 07: Eos # 0.0 K/mm3 (0.0-0.4) 12/12/18 07: Baso # 0.0 K/mm3 (0.0-0.1) 12/12/18 07:26 Seg Neutrophils % 72.0 % (40.0-70.0) H 12/12/18 07: Seg Neutrophils # 4.4 K/mm3 (1.8-7.7) 12/12/18 07:26 PT 12.9 Sec. (12.2-14.9) 12/09/18 12:12 INR 0.92 (0.87-1.13) 12/09/18 12:12 APTT 26.5 Sec. (24.2-36.6) 12/09/18 12:12 D-Dimer 543.00 ng/mlDDU (0-234) H 12/09/18 12:12 Sodium 132 mmol/L (137-145) L 12/12/18 06:08 Potassium 5.3 mmol/L (3.6-5.0) H D 12/12/18 06:08 Chloride 93.6 mmol/L (98-107) L 12/12/18 06:08 Carbon Dioxide 23 mmol/L (22-30) 12/12/18 06:08 Anion Gap 21 mmol/L 12/12/18 06:08 BUN 24 mg/dL (7-17) H 12/12/18 06:08 Creatinine 0.8 mg/dL (0.7-1.2) 12/12/18 06:08 Estimated GFR > 60 ml/min 12/12/18 06:08 BUN/Creatinine Ratio 30 % 12/12/18 06:08 Glucose 332 mg/dL (65-100) H 12/12/18 06:08 POC Glucose 287 (70-105) H 12/12/18 07:23 Calcium 8.9 mg/dL (8.4-10.2) 12/12/18 06:08 Total Bilirubin 0.40 mg/dL (0.1-1.2) 12/09/18 12:12 AST 13 units/L (5-40) 12/09/18 12:12 ALT 9 units/L (7-56) 12/09/18 12:12 Alkaline Phosphatase 151 units/L (35-129) H 12/09/18 12:12 Troponin T < 0.010 ng/mL (0.00-0.029) 12/09/18 12:12 Total Protein 7.7 g/dL (6.3-8.2) 12/09/18 12:12 Albumin 3.7 g/dL (3.9-5) L 12/09/18 12:12 Albumin/Globulin Ratio 0.9 % 12/09/18 12:12 Lipase 24 units/L (13-60) 12/09/18 12:12 Urine Color Yellow (Yellow) 12/09/18 13:02 Urine Turbidity Slightly-cloudy (Clear) 12/09/18 13:02 Urine pH 6.0 (5.0-7.0) 12/09/18 13:02 Ur Specific [place] 1.036 (1.003-1.030) H 12/09/18 13:02 Urine Protein <15 mg/dl mg/dL (Negative) 12/09/18 13:02 Urine Glucose (UA) >=500 mg/dL (Negative) 12/09/18 13:02 Urine Ketones Neg mg/dL (Negative) 12/09/18 13:02 Urine Blood Sm (Negative) 12/09/18 13:02 Urine Nitrite Neg (Negative) 12/09/18 13:02 Urine Bilirubin Neg (Negative) 12/09/18 13:02 Urine Urobilinogen < 2.0 mg/dL (<2.0) 12/09/18 13:02 Ur Leukocyte Esterase Sm (Negative) 12/09/18 13:02 Urine WBC (Auto) 18.0 /HPF (0.0-6.0) H 12/09/18 13:02 Urine RBC (Auto) 4.0 /HPF (0.0-6.0) 12/09/18 13:02 U Epithel Cells (Auto) 2.0 /HPF (0-13.0) 12/09/18 13:02 Phenytoin 2.5 ug/mL (10.0-20.0) L 12/09/18 12:12 Active Medications - Current Medications Current Medications: Generic Name Dose Route Start Last Admin Trade Name Freq PRN Reason Stop Dose Admin Acetaminophen 650 mg 12/09/18 14:08 Tylenol PO Q4H PRN Pain MILD(1-3)/Fever >100.5/MOYER Acetaminophen/Hydrocodone Bitart 1 each 12/10/18 16:00 12/12/18 06:31 [place] 5/325 PO 1 each Q6H PRN Administration Pain, Moderate (4-6) Albuterol 2.5 mg 12/09/18 14:08 Proventil IH Q4HRT PRN Shortness Of Breath Amlodipine Besylate 5 mg 12/10/18 10:00 12/12/18 10:06 Norvasc PO 5 mg QDAY SKYLER Administration Arformoterol Tartrate 15 mcg 12/09/18 20:00 12/12/18 07:11 Brovana Nebu IH 15 mcg Q12HRT SKYLER Administration Budesonide 0.5 mg 12/09/18 20:00 12/12/18 07:11 Pulmicort IH 0.5 mg Q12HRT SKYLER Administration Dextrose 50 ml 12/09/18 14:58 D50w (25gm) Syringe IV PRN PRN Hypoglycemia Furosemide 20 mg 12/10/18 06:00 12/12/18 06:29 Lasix IV 20 mg DAILY@0600 SKYLER Administration Levofloxacin/Dextrose 500 mg in 100 mls @ 100 mls/hr 12/10/18 10:00 12/12/18 10:04 Levaquin 500mg/100ml IV 100 mls/hr Q24HR SKYLER Administration Protocol Insulin Human Isoph/Insulin Regular 30 unit 12/09/18 17:00 12/12/18 10:05 Humulin 70/30 SUB-Q 30 unit BIDDIAB SKYLER Administration Insulin Human Lispro 0 unit 12/09/18 16:30 12/12/18 07:30 Humalog SUB-Q 4 unit ACHS SKYLER Administration Protocol Methylprednisolone Sodium Succinate 40 mg 12/09/18 22:00 12/11/18 22:05 Solu-Medrol IV 40 mg Q12HR SKYLER Administration Ondansetron HCl 4 mg 12/09/18 14:08 12/12/18 06:30 Zofran IV 4 mg Q8H PRN Administration Nausea And Vomiting Pantoprazole Sodium 40 mg 12/10/18 10:00 12/12/18 10:06 Protonix PO 40 mg DAILY SKYLER Administration Phenytoin 125 mg 12/10/18 10:00 12/12/18 10:06 Dilantin PO 125 mg DAILY SKYLER Administration Polyethylene Glycol 17 gm 12/09/18 14:43 12/12/18 10:17 Miralax 3350 PO 17 gm QDAY PRN Administration Constipation Potassium Chloride 10 meq 12/10/18 10:00 12/12/18 10:06 K-Dur PO 10 meq QDAY SKYLER Administration Quetiapine Fumarate 200 mg 12/09/18 22:00 12/11/18 22:05 Seroquel PO 200 mg QHS SKYLER Administration Senna/Docusate Sodium 2 tab 12/09/18 14:07 Senokot S PO HS PRN Constipation Sodium Chloride 10 ml 12/09/18 22:00 12/12/18 10:07 Sodium Chloride Flush Syringe 10 Ml IV 10 ml BID SKYLER Administration Sodium Chloride 10 ml 12/09/18 14:08 Sodium Chloride Flush Syringe 10 Ml IV PRN PRN LINE FLUSH
[2018-12-12] MEDS: SODIUM CHLORIDE FLUSH SYRINGE 10 ML IV PRN (23:51)
[2018-12-13 05:38] LABS: Basophils % (Auto) 0.2 % (0.0-1.8); Hematocrit 38.1 % (30.3-42.9); Hemoglobin 13.1 gm/dl (10.1-14.3); Lymphocytes # (Auto) 1.2 K/mm3 (1.2-5.4); Lymphocytes % (Auto) 21.7 % (13.4-35.0); Mean Corpuscular HGB Conc 35 % (30-34); Mean Corpuscular Volume 104 fl (79-97); Monocytes # (Auto) 0.3 K/mm3 (0.0-0.8); Platelet Count 222 K/mm3 (140-440); Red Blood Count 3.65 M/mm3 (3.65-5.03)
[2018-12-13 05:54] LABS: BUN/Creatinine Ratio 22; Blood Urea Nitrogen 20 mg/dL (7-17); Calcium 9.2 mg/dL (8.4-10.2); Hemolysis Index 12
[2018-12-13] MEDS: LASIX IV SCH (06:07)
[2018-12-13] MEDS: SODIUM CHLORIDE FLUSH SYRINGE 10 ML IV PRN (06:11)
[2018-12-13] MEDS: HumaLOG SUB-Q SCH ×4 (07:30→22:40)
[2018-12-13] MEDS: NORCO 5/325 PO PRN ×3 (07:41→22:42)
[2018-12-13] MEDS: ZOFRAN IV PRN ×2 (07:42→16:30)
[2018-12-13] MEDS: BROVANA NEBU IH SCH ×2 (09:11→19:59)
[2018-12-13] MEDS: PULMICORT IH SCH ×2 (09:11→19:59)
[2018-12-13] MEDS: SODIUM CHLORIDE FLUSH SYRINGE 10 ML IV SCH ×2 (10:03→22:44)
[2018-12-13] MEDS: GENVOYA (NF) PO SCH (10:03)
[2018-12-13] MEDS: SOLU-Medrol IV SCH ×2 (10:03→22:42)
[2018-12-13] MEDS: DILANTIN PO SCH (10:04)
[2018-12-13] MEDS: PROTONIX PO SCH (10:04)
[2018-12-13] MEDS: NORVASC PO SCH (10:04)
[2018-12-13] MEDS: LEVAQUIN PO SCH (10:04)
[2018-12-13] MEDS: MIRALAX 3350 PO PRN (10:11)
--- NOTE | 2018-12-13 17:23 | Progress Note ---
Assessment and Plan Assessment and plan: Acute hypoxemic respiratory failure. Continue O2 and BiPAP as clinically indicated. Etiology secondary to COPD and OHS/ABBY. Acute COPD exacerbation. Continue with DuoNeb solution , budesonide and arfo rmoterol solutions via nebulizer and steroids Diabetes mellitus type 2. Continue sliding scale insulin and Accu-Cheks. Hypertension. Continue home antihypertensive medications. Bipolar disorder. Continue Seroquel. HIV/AIDS continue home medications Seizure disorder. Continue Dilantin although the dose is inadequate and Dilantin level is subtherapeutic OHS/ABBY. History Interval history: Patient was seen and evaluated this morning, patient still has SOB. Hospitalist Physical - Physical exam Narrative exam: Not in cardiopulmonary distress. The patient is morbidly obese. Vital signs as documented. Head exam is unremarkable. No scleral icterus . Neck is without jugular venous distension, thyromegaly, or carotid bruits. Lungs wheezing all over the chest. Cardiac exam reveals regular rate and Rhythm. Abdominal exam reveals normal bowel sounds. Extremities are nonedematous and both femoral and pedal pulses are normal. 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 No focal weakness. - Constitutional Vitals: Temp Pulse Resp BP Pulse Ox 98.0 F 98 H 20 108/68 92 12/13/18 06:21 12/13/18 09:30 12/13/18 09:30 12/13/18 06:21 12/13/18 06:21 General appearance: Present: no acute distress, obese Results - Labs CBC & Chem 7: 12/13/18 05:00 12/13/18 05:00 Labs: Laboratory Last Values WBC 5.6 K/mm3 (4.5-11.0) 12/13/18 05:00 RBC 3.65 M/mm3 (3.65-5.03) 12/13/18 05:00 Hgb 13.1 gm/dl (10.1-14.3) 12/13/18 05:00 Hct 38.1 % (30.3-42.9) 12/13/18 05:00 MCV 104 fl (79-97) H 12/13/18 05:00 MCH 36 pg (28-32) H 12/13/18 05:00 MCHC 35 % (30-34) H 12/13/18 05:00 RDW 14.0 % (13.2-15.2) 12/13/18 05:00 Plt Count 222 K/mm3 (140-440) 12/13/18 05:00 Lymph % (Auto) 21.7 % (13.4-35.0) 12/13/18 05:00 [place] % (Auto) 5.0 % (0.0-7.3) 12/13/18 05:00 Eos % (Auto) 0.0 % (0.0-4.3) 12/13/18 05:00 Baso % (Auto) 0.2 % (0.0-1.8) 12/13/18 05:00 Lymph # 1.2 K/mm3 (1.2-5.4) 12/13/18 05:00 [place] # 0.3 K/mm3 (0.0-0.8) 12/13/18 05:00 Eos # 0.0 K/mm3 (0.0-0.4) 12/13/18 05:00 Baso # 0.0 K/mm3 (0.0-0.1) 12/13/18 05:00 Seg Neutrophils % 73.1 % (40.0-70.0) H 12/13/18 05:00 Seg Neutrophils # 4.1 K/mm3 (1.8-7.7) 12/13/18 05:00 PT 12.9 Sec. (12.2-14.9) 12/09/18 12:12 INR 0.92 (0.87-1.13) 12/09/18 12:12 APTT 26.5 Sec. (24.2-36.6) 12/09/18 12:12 D-Dimer 543.00 ng/mlDDU (0-234) H 12/09/18 12:12 Sodium 139 mmol/L (137-145) D 12/13/18 05:00 Potassium 3.9 mmol/L (3.6-5.0) D 12/13/18 05:00 Chloride 95.3 mmol/L (98-107) L 12/13/18 05:00 Carbon Dioxide 31 mmol/L (22-30) H D 12/13/18 05:00 Anion Gap 17 mmol/L 12/13/18 05:00 BUN 20 mg/dL (7-17) H 12/13/18 05:00 Creatinine 0.9 mg/dL (0.7-1.2) 12/13/18 05:00 Estimated GFR > 60 ml/min 12/13/18 05:00 BUN/Creatinine Ratio 22 % 12/13/18 05:00 Glucose 171 mg/dL (65-100) H 12/13/18 05:00 POC Glucose 129 (70-105) H 12/13/18 16:32 Calcium 9.2 mg/dL (8.4-10.2) 12/13/18 05:00 Total Bilirubin 0.40 mg/dL (0.1-1.2) 12/09/18 12:12 AST 13 units/L (5-40) 12/09/18 12:12 ALT 9 units/L (7-56) 12/09/18 12:12 Alkaline Phosphatase 151 units/L (35-129) H 12/09/18 12:12 Troponin T < 0.010 ng/mL (0.00-0.029) 12/09/18 12:12 Total Protein 7.7 g/dL (6.3-8.2) 12/09/18 12:12 Albumin 3.7 g/dL (3.9-5) L 12/09/18 12:12 Albumin/Globulin Ratio 0.9 % 12/09/18 12:12 Lipase 24 units/L (13-60) 12/09/18 12:12 Urine Color Yellow (Yellow) 12/09/18 13:02 Urine Turbidity Slightly-cloudy (Clear) 12/09/18 13:02 Urine pH 6.0 (5.0-7.0) 12/09/18 13:02 Ur Specific [place] 1.036 (1.003-1.030) H 12/09/18 13:02 Urine Protein <15 mg/dl mg/dL (Negative) 12/09/18 13:02 Urine Glucose (UA) >=500 mg/dL (Negative) 12/09/18 13:02 Urine Ketones Neg mg/dL (Negative) 12/09/18 13:02 Urine Blood Sm (Negative) 12/09/18 13:02 Urine Nitrite Neg (Negative) 12/09/18 13:02 Urine Bilirubin Neg (Negative) 12/09/18 13:02 Urine Urobilinogen < 2.0 mg/dL (<2.0) 12/09/18 13:02 Ur Leukocyte Esterase Sm (Negative) 12/09/18 13:02 Urine WBC (Auto) 18.0 /HPF (0.0-6.0) H 12/09/18 13:02 Urine RBC (Auto) 4.0 /HPF (0.0-6.0) 12/09/18 13:02 U Epithel Cells (Auto) 2.0 /HPF (0-13.0) 12/09/18 13:02 Phenytoin 2.5 ug/mL (10.0-20.0) L 12/09/18 12:12 Active Medications - Current Medications Current Medications: Generic Name Dose Route Start Last Admin Trade Name Freq PRN Reason Stop Dose Admin Acetaminophen 650 mg 12/09/18 14:08 Tylenol PO Q4H PRN Pain MILD(1-3)/Fever >100.5/MOYER Acetaminophen/Hydrocodone Bitart 1 each 12/10/18 16:00 12/13/18 16:30 [place] 5/325 PO 1 each Q6H PRN Administration Pain, Moderate (4-6) Albuterol 2.5 mg 12/09/18 14:08 Proventil IH Q4HRT PRN Shortness Of Breath Amlodipine Besylate 5 mg 12/10/18 10:00 12/13/18 10:04 Norvasc PO 5 mg QDAY SKYLER Administration Arformoterol Tartrate 15 mcg 12/09/18 20:00 12/13/18 09:11 Brovana Nebu IH 15 mcg Q12HRT SKYLER Administration Budesonide 0.5 mg 12/09/18 20:00 12/13/18 09:11 Pulmicort IH 0.5 mg Q12HRT SKYLER Administration Dextrose 50 ml 12/09/18 14:58 D50w (25gm) Syringe IV PRN PRN Hypoglycemia Furosemide 20 mg 12/10/18 06:00 12/13/18 06:07 Lasix IV 20 mg DAILY@0600 SKYLER Administration Insulin Human Isoph/Insulin Regular 30 unit 12/09/18 17:00 12/13/18 16:30 Humulin 70/30 SUB-Q 30 unit BIDDIAB SYKLER Administration Insulin Human Lispro 0 unit 12/09/18 16:30 12/13/18 16:31 Humalog SUB-Q Not Given ACHS [facility] Protocol Levofloxacin 500 mg 12/13/18 10:00 12/13/18 10:04 Levaquin PO 500 mg Q24HR SKYLER Administration Methylprednisolone Sodium Succinate 40 mg 12/09/18 22:00 12/13/18 10:03 Solu-Medrol IV 40 mg Q12HR SKYLER Administration Ondansetron HCl 4 mg 12/09/18 14:08 12/13/18 16:30 Zofran IV 4 mg Q8H PRN Administration Nausea And Vomiting Pantoprazole Sodium 40 mg 12/10/18 10:00 12/13/18 10:04 Protonix PO 40 mg DAILY SKYLER Administration Phenytoin 125 mg 12/10/18 10:00 12/13/18 10:04 Dilantin PO 125 mg DAILY SKYLER Administration Polyethylene Glycol 17 gm 12/09/18 14:43 12/13/18 10:11 Miralax 3350 PO 17 gm QDAY PRN Administration Constipation Potassium Chloride 10 meq 12/10/18 10:00 12/12/18 10:06 K-Dur PO 10 meq QDAY SKYLER Administration Quetiapine Fumarate 200 mg 12/09/18 22:00 12/12/18 23:08 Seroquel PO 200 mg QHS SKYLER Administration Senna/Docusate Sodium 2 tab 12/09/18 14:07 Senokot S PO HS PRN Constipation Sodium Chloride 10 ml 12/09/18 22:00 12/13/18 10:03 Sodium Chloride Flush Syringe 10 Ml IV 10 ml BID SKYLER Administration Sodium Chloride 10 ml 12/09/18 14:08 12/13/18 06:11 Sodium Chloride Flush Syringe 10 Ml IV 10 ml PRN PRN Administration LINE FLUSH
[2018-12-14] MEDS: SODIUM CHLORIDE FLUSH SYRINGE 10 ML IV PRN (06:41)
[2018-12-14] MEDS: LASIX IV SCH (06:41)
[2018-12-14] MEDS: BROVANA NEBU IH SCH ×2 (08:11→20:09)
[2018-12-14] MEDS: PULMICORT IH SCH ×2 (08:11→20:09)
[2018-12-14] MEDS: NORCO 5/325 PO PRN (08:32)
[2018-12-14] MEDS: ZOFRAN IV PRN (08:32)
[2018-12-14] MEDS: HumaLOG SUB-Q SCH ×2 (08:33→11:30)
[2018-12-14] MEDS: MIRALAX 3350 PO PRN (08:39)
[2018-12-14] MEDS: SOLU-Medrol IV SCH (09:22)
[2018-12-14] MEDS: DILANTIN PO SCH (09:22)
[2018-12-14] MEDS: NORVASC PO SCH (09:23)
[2018-12-14] MEDS: LEVAQUIN PO SCH (09:23)
[2018-12-14] MEDS: PROTONIX PO SCH (09:24)
[2018-12-14] MEDS: GENVOYA (NF) PO SCH (09:24)
[2018-12-14] MEDS: SODIUM CHLORIDE FLUSH SYRINGE 10 ML IV SCH (09:24)
--- NOTE | 2018-12-14 10:53 | Discharge Summary ---
Providers - Providers Date of Admission: 12/09/18 14:08 Attending physician: BARBRA REYES MD Primary care physician: ANJELICA MIRAMONTES Hospitalization Reason for admission: COPD exacerbation Condition: Stable Hospital course: Acute hypoxemic respiratory failure due to acute COPD exacerbation; was treated appropriately for COPD exacerbation and patient showed improvement. patient was saturating well on room air All other co-morbidities were treated appropriately. Patient was complaining offensive vaginal discharge on the day of discharge and gave her flagyl and f luconazole. patient was hemodynamically stable at the time of discharge. Disposition: [id number]-01 TO HOME OR SELFCARE Time spent for discharge: 32 minutes - Discharge Diagnoses (1) Purulent vaginal discharge Status: Acute (2) Acute asthma exacerbation Status: Acute (3) COPD with exacerbation Status: Acute (4) Diabetes Status: Acute (5) HTN (hypertension) Status: Acute Qualifiers: Hypertension type: essential hypertension Qualified Code(s): I10 - Essential (primary) hypertension Core Measure Documentation - Palliative Care Palliative Care/ Comfort Measures: Not Applicable - Core Measures Any of the following diagnoses?: none Exam - Physical Exam Narrative exam: Not in cardiopulmonary distress. The patient is morbidly obese. Vital signs as documented. Head exam is unremarkable. No scleral icterus . Neck is without jugular venous distension, thyromegaly, or carotid bruits. Lungs wheezing all over the chest. Cardiac exam reveals regular rate and Rhythm. Abdominal exam reveals normal bowel sounds. Extremities are nonedematous and both femoral and pedal pulses are normal. 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 No focal weakness. - Constitutional Vitals: Temp Pulse Resp BP Pulse Ox 97.9 F 75 18 140/83 98 12/14/18 05:47 12/14/18 09:23 12/14/18 08:35 12/14/18 09:23 12/14/18 05:47 Plan Activity: no restrictions Weight Bearing Status: Full Weight Bearing Diet: low salt, diabetic Follow up with: ANJELICA MIRAMONTES MD [Primary Care Provider] - 3-5 Days Prescriptions: Fluconazole [Diflucan TAB] 150 mg PO ONCE #1 tablet levoFLOXacin [Levaquin TAB] 500 mg PO QDAY #5 tablet metroNIDAZOLE [Metronidazole] 500 mg PO BID #14 tablet Prednisone [predniSONE 10 mg (6-Day Pack, 21 Tabs)] 10 mg PO .TAPER #1 tab.ds.pk
[2018-12-14 11:16] LABS: BUN/Creatinine Ratio 24; Blood Urea Nitrogen 19 mg/dL (7-17); Calcium 8.6 mg/dL (8.4-10.2); Hemolysis Index 96
[2018-12-14] MEDS: K-DUR PO SCH (12:13)
[2018-12-14 12:53] VITALS: BP 118/83
== END 2018-12-14 17:00 | disposition home or self-care (01) | DRG 189 ==
LOC: ED 10:41 → 3A 14:08
PROVIDERS: ADMIT Internal Medicine; ATTEND Internal Medicine
DX: J96.01 Acute respiratory failure with hypoxia (principal); J44.1 Chronic obstructive pulmonary disease with (acute) exacerbation; B20 Human immunodeficiency virus [HIV] disease; N39.0 Urinary tract infection, site not specified; J45.901 Unspecified asthma with (acute) exacerbation; I50.30 Unspecified diastolic (congestive) heart failure; E66.2 Morbid (severe) obesity with alveolar hypoventilation; Z68.41 Body mass index [BMI] 40.0-44.9, adult; I11.0 Hypertensive heart disease with heart failure; F31.9 Bipolar disorder, unspecified; F20.9 Schizophrenia, unspecified; N89.8 Other specified noninflammatory disorders of vagina; E87.6 Hypokalemia; G40.909 Epilepsy, unspecified, not intractable, without status epilepticus; Z90.710 Acquired absence of both cervix and uterus; Z79.51 Long term (current) use of inhaled steroids; Z79.899 Other long term (current) drug therapy; Z79.4 Long term (current) use of insulin; Z88.6 Allergy status to analgesic agent; Z88.1 Allergy status to other antibiotic agents; Z91.013 Allergy to seafood
CPT/HCPCS: 36415; 71045; 74176; 80048; 80053; 80185; 81001; 82962; 83690; 84484; 85025; 85027; 85379; 85610; 85730; 87116; 93005; 93010; 94640; G0378; J1815; J1940; J1956; J2270; J2405; J2920; J2930; J3010; J3475; J3480; J7040

== ENCOUNTER 2019-02-05 16:32 | Emergency (ER) | payer MEDICARE ==
--- NOTE | 2019-02-05 17:55 | Event Note ---
ED Screening Note Date of service: 02/05/19 Time: 17:51 ED Screening Note: 63 year old male c/o difficulties in breathing for 3 days. This initial assessment/diagnostic orders/clinical plan/treatment(s) is/are subject to change based on patients health status, clinical progression and re-assessment by fellow clinical providers in the ED. Further treatment and workup at subsequent clinical providers discretion. Patient/guardian urged not to elope from the ED as their condition may be serious if not clinically assessed and managed. Initial orders include:
[2019-02-05 18:56] LABS: Basophils # (Auto) 0.1 K/mm3 (0.0-0.1); Basophils % (Auto) 0.9 % (0.0-1.8); Eosinophils # (Auto) 0.1 K/mm3 (0.0-0.4); Eosinophils % (Auto) 1.1 % (0.0-4.3); Hematocrit 43.3 % (30.3-42.9); Lymphocytes # (Auto) 2.1 K/mm3 (1.2-5.4); Lymphocytes % (Auto) 35.7 % (13.4-35.0); Mean Corpuscular HGB Conc 35 % (30-34); Mean Corpuscular Volume 106 fl (79-97); Monocytes # (Auto) 0.4 K/mm3 (0.0-0.8); Monocytes % (Auto) 6.4 % (0.0-7.3); Platelet Count 189 K/mm3 (140-440)
[2019-02-05 19:14] LABS: BUN/Creatinine Ratio 18; Blood Urea Nitrogen 14 mg/dL (7-17); Calcium 9.3 mg/dL (8.4-10.2); Hemolysis Index 6
[2019-02-05 19:41] LABS: Alanine Aminotransferase < 5 units/L (7-56)
--- NOTE | 2019-02-05 20:21 | XRay Report ---
PROCEDURE: XR CHEST ROUTINE 2V TECHNIQUE: PA and lateral chest radiographs were obtained. HISTORY: sob COMPARISONS: None. FINDINGS: Heart: Normal. Mediastinum/Vessels: Normal. Lungs/Pleural space: Normal. Bony thorax: No acute osseous abnormality. IMPRESSION: Normal examination. This document is electronically signed by Damion Monroe MD., February 05 2019 08:19:31 PM ET
[2019-02-05] MEDS ORDERED: K-DUR PO ONE (20:53)
[2019-02-05] MEDS ORDERED: ATROVENT IH ONE (20:54)
[2019-02-05] MEDS ORDERED: PROVENTIL IH ONE (20:54)
[2019-02-05] MEDS ORDERED: SOLU-Medrol IM ONE (20:54)
--- NOTE | 2019-02-05 20:59 | Emergency Department Report ---
ED Shortness of Breath HPI - General Chief Complaint: Extremity Injury, Lower Stated Complaint: DIFFICULTY BREATHING Time Seen by Provider: 02/05/19 20:48 Source: patient, EMS Mode of arrival: Wheelchair Limitations: Other - History of Present Illness Initial Comments: 63 yr old female with history of asthma presents to ED with a history of cough, wheezing, dyspnea on exertion. Patient says she has been using her inhaler, but symptoms persist. Denies fever. Patient also reports pain in the right hip that travels down her leg. Denies trauma, denies leg swelling. MD Complaint: shortness of breath -: days(s) (3) Severity: moderate Consistency: intermittent Improves With: rest Worsens With: exertion Known History Of: asthma, congestive heart failure Associated Symptoms: cough, lower extremity pain Treatments Prior to Arrival: bronchodilator - Related Data Home Oxygen Therapy: No Home Medications Medication Instructions Recorded Confirmed Last Taken Furosemide [Lasix TAB] 40 mg PO QDAY 03/23/18 12/09/18 1 Day Ago ~07/13/18 Genvoya Tablet 1 tab PO DAILY 03/23/18 12/09/18 1 Day Ago ~07/13/18 Potassium Chloride [Klor-Con 10] 1 tab PO QDAY 03/23/18 12/09/18 1 Day Ago ~07/13/18 Pantoprazole [Protonix TAB] 40 mg PO DAILY 08/31/18 12/09/18 Unknown Previous Rx's Medication Instructions Recorded Last Taken Type amLODIPine [Norvasc] 5 mg PO QDAY #30 tablet 07/29/17 1 Day Ago Rx ~07/13/18 Phenytoin Sodium Extended 125 mg PO DAILY 30 Days capsule 09/15/17 1 Day Ago Rx [Dilantin] ~07/13/18 ALBUTEROL NEB's [Proventil 0.083% 2.5 mg IH Q4H PRN #120 neb 09/04/18 Unknown Rx NEBS] Advair 250-50 Diskus 1 puff PO BID #1 09/04/18 Unknown Rx Albuterol Sulfate [Ventolin Hfa] 2 puff IH Q4-6H PRN #1 hfa.aer.ad 09/04/18 Unknown Rx Polyethylene Glycol 3350 [Miralax] 17 gm PO DAILY 30 Days powder 09/04/18 Unknown Rx QUEtiapine [SEROquel] 200 mg PO QHS #30 tablet 09/04/18 Unknown Rx Sennosides/Docusate Sodium [Senna 2 each PO HS PRN #60 tablet 09/04/18 Unknown Rx Plus Tablet] Insulin NPH/Regular [NovoLIN 70/30] 30 unit SUB-Q BIDDIAB 30 Days 10/31/18 Unknown Rx units Fluconazole [Diflucan TAB] 150 mg PO ONCE #1 tablet 12/14/18 Unknown Rx Prednisone [predniSONE 10 mg 10 mg PO .TAPER #1 tab.ds.pk 12/14/18 Unknown Rx (6-Day Pack, 21 Tabs)] levoFLOXacin [Levaquin TAB] 500 mg PO QDAY #5 tablet 12/14/18 Unknown Rx metroNIDAZOLE [Metronidazole] 500 mg PO BID #14 tablet 12/14/18 Unknown Rx Albuterol Sulfate [Proventil Hfa] 2 puff IH Q4HR PRN #1 hfa.aer.ad 02/06/19 Unknown Rx predniSONE [Deltasone] 50 mg PO QDAY #5 tab 02/06/19 Unknown Rx traMADol [Ultram] 50 mg PO Q6HR PRN #7 tablet 02/06/19 Unknown Rx Allergies Allergy/AdvReac Type Severity Reaction Status Date / Time shellfish derived Allergy Severe Shortness Verified 02/05/19 16:34 of Breath ibuprofen [From Motrin] Allergy Mild Shortness Verified 02/05/19 16:34 of Breath tetracycline Allergy Shortness Verified 10/28/18 13:56 of Breath ED Review of Systems ROS: Stated complaint: DIFFICULTY BREATHING Other details as noted in HPI Comment: All other systems reviewed and negative Constitutional: denies: chills, fever Respiratory: cough, SOB with exertion, wheezing Cardiovascular: denies: chest pain Gastrointestinal: denies: nausea, vomiting Musculoskeletal: arthralgia (reports right hip pain), other (denies leg swelling) ED Past Medical Hx - Past Medical History Hx Hypertension: Yes Hx Congestive Heart Failure: Yes Hx Diabetes: Yes Hx Deep Vein Thrombosis: Yes Hx Pulmonary Embolism: Yes Hx Arthritis: Yes (hands and legs) Hx Seizures: Yes Hx Psychiatric Treatment: Yes (bipolar disorder; schziphornia) Hx Asthma: Yes Hx COPD: Yes Hx HIV: Yes (ON ANTI-VIRALS) Additional medical history: CDIFF, spinal stenosis - Surgical History Hx Pacemaker: No Hx Internal Defibrillator: No Additional Surgical History: hysterectomy; rt arm skin graph - Social History Smoking Status: Never Smoker Substance Use Type: None - Medications Home Medications: Home Medications Medication Instructions Recorded Confirmed Last Taken Type amLODIPine [Norvasc] 5 mg PO QDAY #30 tablet 07/29/17 12/09/18 1 Day Ago Rx ~07/13/18 Phenytoin Sodium Extended 125 mg PO DAILY 30 Days capsule 09/15/17 12/09/18 1 Day Ago Rx [Dilantin] ~07/13/18 Furosemide [Lasix TAB] 40 mg PO QDAY 03/23/18 12/09/18 1 Day Ago History ~07/13/18 Genvoya Tablet 1 tab PO DAILY 03/23/18 12/09/18 1 Day Ago History ~07/13/18 Potassium Chloride [Klor-Con 10] 1 tab PO QDAY 03/23/18 12/09/18 1 Day Ago History ~07/13/18 Pantoprazole [Protonix TAB] 40 mg PO DAILY 08/31/18 12/09/18 Unknown History ALBUTEROL NEB's [Proventil 0.083% 2.5 mg IH Q4H PRN #120 neb 09/04/18 12/09/18 Unknown Rx NEBS] Advair 250-50 Diskus 1 puff PO BID #1 09/04/18 12/09/18 Unknown Rx Albuterol Sulfate [Ventolin Hfa] 2 puff IH Q4-6H PRN #1 hfa.aer.ad 09/04/18 12/09/18 Unknown Rx Polyethylene Glycol 3350 [Miralax] 17 gm PO DAILY 30 Days powder 09/04/18 12/09/18 Unknown Rx QUEtiapine [SEROquel] 200 mg PO QHS #30 tablet 09/04/18 12/09/18 Unknown Rx Sennosides/Docusate Sodium [Senna 2 each PO HS PRN #60 tablet 09/04/18 12/09/18 Unknown Rx Plus Tablet] Insulin NPH/Regular [NovoLIN 70/30] 30 unit SUB-Q BIDDIAB 30 Days 10/31/18 12/09/18 Unknown Rx units Fluconazole [Diflucan TAB] 150 mg PO ONCE #1 tablet 12/14/18 Unknown Rx Prednisone [predniSONE 10 mg 10 mg PO .TAPER #1 tab.ds.pk 12/14/18 Unknown Rx (6-Day Pack, 21 Tabs)] levoFLOXacin [Levaquin TAB] 500 mg PO QDAY #5 tablet 12/14/18 Unknown Rx metroNIDAZOLE [Metronidazole] 500 mg PO BID #14 tablet 12/14/18 Unknown Rx Albuterol Sulfate [Proventil Hfa] 2 puff IH Q4HR PRN #1 hfa.aer.ad 02/06/19 Unknown Rx predniSONE [Deltasone] 50 mg PO QDAY #5 tab 02/06/19 Unknown Rx traMADol [Ultram] 50 mg PO Q6HR PRN #7 tablet 02/06/19 Unknown Rx ED Physical Exam - General Limitations: Other General appearance: alert, in no apparent distress - Head Head exam: Present: atraumatic, normocephalic - Eye Eye exam: Present: normal appearance - ENT ENT exam: Present: mucous membranes moist - Neck Neck exam: Present: normal inspection - Respiratory Respiratory exam: Present: wheezes. Absent: respiratory distress - Cardiovascular Cardiovascular Exam: Present: normal rhythm, tachycardia - GI/Abdominal GI/Abdominal exam: Present: soft. Absent: distended, tenderness - Extremities Exam Extremities exam: Present: tenderness (to right hip). Absent: calf tenderness - Neurological Exam Neurological exam: Present: alert, oriented X3 - Psychiatric Psychiatric exam: Present: normal affect, normal mood - Skin Skin exam: Present: warm, dry, intact, normal color ED Course Vital Signs 02/05/19 02/05/19 02/05/19 17:43 21:05 21:14 Temperature 98 F 98 F Pulse Rate 113 H 108 H Pulse Rate [ 114 H Bilateral] Respiratory 18 12 Rate Respiratory 20 Rate [Bilateral ] Blood Pressure 116/99 Blood Pressure 135/94 [Left] O2 Sat by Pulse 98 97 Oximetry 02/05/19 02/05/19 02/06/19 23:00 23:14 00:00 Temperature Pulse Rate 111 H 112 H 112 H Pulse Rate [ Bilateral] Respiratory 13 17 14 Rate Respiratory Rate [Bilateral ] Blood Pressure 135/94 135/94 128/81 Blood Pressure [Left] O2 Sat by Pulse 96 97 94 Oximetry ED Medical Decision Making - Lab Data Result diagrams: 02/05/19 18:12 02/05/19 18:12 - EKG Data -: EKG Interpreted by Ok EKG shows normal: sinus rhythm, axis, QRS complexes, ST-T waves - EKG Data Interpretation: no acute changes, other (prolonged QT) - Radiology Data Radiology results: report reviewed, image reviewed - Medical Decision Making 63-year-old female with history of COPD and CHF presents with shortness of breath and right leg pain. Leg pain is mainly in the right hip and radiates down the entire leg, no swelling present. Patient has wheezing on exam so albuterol nebulizer given, along with Solu-Medrol. Chest x-ray negative for any acute infiltrate or pulmonary edema. EKG unremarkable, troponin negative. D- dimer elevated, so patient underwent VQ scan which was normal. Patient and no respiratory distress, O2 sats are normal. Pt also hyperglycemic. Initial insulin given in IV that infiltrated which explains no change in repeat accucheck. Pt not in DKA. Insulin given again. Will discharge at this time. Advise PCP follow-up. Return precautions given. - Differential Diagnosis COPD, CHF, PE Critical care attestation.: If time is entered above; I have spent that time in minutes in the direct care of this critically ill patient, excluding procedure time. ED Disposition Clinical Impression: COPD exacerbation, Hypokalemia, Right hip pain, Acute hyperglycemia Disposition: TO HOME OR SELFCARE Is pt being admited?: No Condition: Stable Instructions: Chronic Obstructive Pulmonary Disease (ED), Arthralgia (ED) Prescriptions: predniSONE [Deltasone] 50 mg PO QDAY #5 tab Albuterol Sulfate [Proventil Hfa] 2 puff IH Q4HR PRN #1 hfa.aer.ad PRN Reason: Wheezing traMADol [Ultram] 50 mg PO Q6HR PRN #7 tablet PRN Reason: Pain Referrals: ANJELICA MIRAMONTES MD [Primary Care Provider] - 3-5 Days ELAINE VALDOVINOS MD [Staff Physician] - 3-5 Days PRIMARY CAREMD [Referring] - 3-5 Days Time of Disposition: 04:05
[2019-02-05] MEDS ORDERED: HumuLIN R IV ONE (21:56)
[2019-02-06] MEDS ORDERED: HumuLIN R ONE (00:10)
--- NOTE | 2019-02-06 00:21 | XRay Report ---
PROCEDURE: XR HIP 2-3V RT TECHNIQUE: Right hip 2 views HISTORY: pain COMPARISONS: FINDINGS: No fracture identified. No dislocation seen. Pubic symphysis and SI joints appear unremarkable. IMPRESSION: Negative hip series. This document is electronically signed by Damion Monroe MD., February 06 2019 12:19:33 AM ET
[2019-02-06] MEDS ORDERED: NACL 0.9% 500 ML 500 ML IV ONE (01:53)
[2019-02-06] MEDS ORDERED: HumuLIN R IV ONE ×2 (01:53→03:50)
--- NOTE | 2019-02-06 03:57 | Nuclear Medicine Report ---
PROCEDURE: NM LUNG SCAN PERF/VENT TECHNIQUE: Perfusion images obtained with 5 mCi of technetium MAA. Ventilation images obtained with 15 mCi of xenon-133. HISTORY: sob COMPARISONS: Correlation is made with prior plain film radiographs from February 05. FINDINGS: Perfusion images show no evidence of segmental or subsegmental perfusion defects. Ventilation images are limited and show no definite ventilation defects. IMPRESSION: Low probability for pulmonary emboli.. This document is electronically signed by Terry Win MD., February 06 2019 03:55:11 AM ET
[2019-02-06 05:36] VITALS: BP 121/79
== END 2019-02-06 05:36 | disposition home or self-care (01) ==
LOC: ED 16:32
DX: J44.1 Chronic obstructive pulmonary disease with (acute) exacerbation (principal); E87.6 Hypokalemia; M25.551 Pain in right hip; I11.0 Hypertensive heart disease with heart failure; I50.9 Heart failure, unspecified; E11.65 Type 2 diabetes mellitus with hyperglycemia; M19.90 Unspecified osteoarthritis, unspecified site; Z91.013 Allergy to seafood; Z88.5 Allergy status to narcotic agent; Z88.1 Allergy status to other antibiotic agents; Z79.899 Other long term (current) drug therapy; Z79.4 Long term (current) use of insulin; Z86.718 Personal history of other venous thrombosis and embolism; Z86.711 Personal history of pulmonary embolism; Z79.01 Long term (current) use of anticoagulants; Z90.710 Acquired absence of both cervix and uterus; Z21 Asymptomatic human immunodeficiency virus [HIV] infection status
CPT/HCPCS: 36415; 71046; 73502; 78582; 80053; 82962; 84484; 85025; 85379; 93005; 93010; 94640; 96372; 96374; 96376; 99285; A9540; A9558; J2930; J7040; J1815

== ENCOUNTER 2019-03-05 12:45 | Emergency (ER) | payer MEDICARE ==
[2019-03-05 12:57] VITALS: BP 108/81
--- NOTE | 2019-03-05 13:01 | Event Note ---
ED Screening Note Date of service: 03/05/19 Time: 13:00 ED Screening Note: 63 y/o comes in for sob, chest discomfort. This initial assessment/diagnostic orders/clinical plan/treatment(s) is/are subject to change based on patients health status, clinical progression and re- assessment by fellow clinical providers in the ED. Further treatment and workup at subsequent clinical providers discretion. Patient/guardian urged not to elope from the ED as their condition may be serious if not clinically assessed and managed. Initial orders include:
--- NOTE | 2019-03-05 13:34 | XRay Report ---
CHEST 2 VIEWS INDICATION / CLINICAL INFORMATION: sob. Dyspnea. COMPARISON: None available. FINDINGS: SUPPORT DEVICES: None. HEART / MEDIASTINUM: No significant abnormality. LUNGS / PLEURA: No significant pulmonary or pleural abnormality. No pneumothorax. ADDITIONAL FINDINGS: No significant additional findings. IMPRESSION: 1. No acute findings. Signer Name: Art Calzada MD Signed: 03/05/2019 1:29 PM Workstation Name: [id number]
[2019-03-05 13:50] LABS: Basophils # (Auto) 0.1 K/mm3 (0.0-0.1); Basophils % (Auto) 0.9 % (0.0-1.8); Eosinophils % (Auto) 0.7 % (0.0-4.3); Hematocrit 45.3 % (30.3-42.9); Hemoglobin 15.4 gm/dl (10.1-14.3); Lymphocytes # (Auto) 2.6 K/mm3 (1.2-5.4); Lymphocytes % (Auto) 43.8 % (13.4-35.0); Mean Corpuscular HGB Conc 34 % (30-34); Mean Corpuscular Volume 105 fl (79-97); Monocytes # (Auto) 0.3 K/mm3 (0.0-0.8); Monocytes % (Auto) 5.5 % (0.0-7.3); Platelet Count 258 K/mm3 (140-440); Red Blood Count 4.32 M/mm3 (3.65-5.03); Red Cell Distribution Width 13.5 % (13.2-15.2)
[2019-03-05 14:07] LABS: Albumin 3.9 g/dL (3.9-5); BUN/Creatinine Ratio 14; Blood Urea Nitrogen 14 mg/dL (7-17); Calcium 9.4 mg/dL (8.4-10.2); Hemolysis Index 193
[2019-03-05 14:12] LABS: Alanine Aminotransferase 8 units/L (7-56)
[2019-03-05] MEDS ORDERED: PROVENTIL IH ONE ×2 (14:18→15:58)
[2019-03-05] MEDS ORDERED: DELTASONE PO ONE (14:18)
[2019-03-05] MEDS ORDERED: ATROVENT IH ONE (14:18)
--- NOTE | 2019-03-05 14:25 | Emergency Department Report ---
ED Shortness of Breath HPI - General Chief Complaint: Dyspnea/Respdistress Stated Complaint: SHORTNESS OF BREATH Time Seen by Provider: 03/05/19 14:14 Source: patient, EMS Mode of arrival: Ambulatory Limitations: No Limitations - History of Present Illness Initial Comments: 63-year-old female with history of COPD, CHF presents to ED with a history of wh eezing and shortness of breath. MD Complaint: shortness of breath -: days(s) (3) Severity: moderate Consistency: constant Improves With: nothing Worsens With: nothing Known History Of: COPD, congestive heart failure Associated Symptoms: cough Treatments Prior to Arrival: bronchodilator - Related Data Home Medications Medication Instructions Recorded Confirmed Last Taken Furosemide [Lasix TAB] 40 mg PO QDAY 03/23/18 12/09/18 1 Day Ago ~07/13/18 Genvoya Tablet 1 tab PO DAILY 03/23/18 12/09/18 1 Day Ago ~07/13/18 Potassium Chloride [Klor-Con 10] 1 tab PO QDAY 03/23/18 12/09/18 1 Day Ago ~07/13/18 Pantoprazole [Protonix TAB] 40 mg PO DAILY 08/31/18 12/09/18 Unknown Previous Rx's Medication Instructions Recorded Last Taken Type amLODIPine [Norvasc] 5 mg PO QDAY #30 tablet 07/29/17 1 Day Ago Rx ~07/13/18 Phenytoin Sodium Extended 125 mg PO DAILY 30 Days capsule 09/15/17 1 Day Ago Rx [Dilantin] ~07/13/18 ALBUTEROL NEB's [Proventil 0.083% 2.5 mg IH Q4H PRN #120 neb 09/04/18 Unknown Rx NEBS] Advair 250-50 Diskus 1 puff PO BID #1 09/04/18 Unknown Rx Albuterol Sulfate [Ventolin Hfa] 2 puff IH Q4-6H PRN #1 hfa.aer.ad 09/04/18 Unknown Rx Polyethylene Glycol 3350 [Miralax] 17 gm PO DAILY 30 Days powder 09/04/18 Unknown Rx QUEtiapine [SEROquel] 200 mg PO QHS #30 tablet 09/04/18 Unknown Rx Sennosides/Docusate Sodium [Senna 2 each PO HS PRN #60 tablet 09/04/18 Unknown Rx Plus Tablet] Insulin NPH/Regular [NovoLIN 70/30] 30 unit SUB-Q BIDDIAB 30 Days 10/31/18 Unknown Rx units Fluconazole [Diflucan TAB] 150 mg PO ONCE #1 tablet 12/14/18 Unknown Rx Prednisone [predniSONE 10 mg 10 mg PO .TAPER #1 tab.ds.pk 12/14/18 Unknown Rx (6-Day Pack, 21 Tabs)] levoFLOXacin [Levaquin TAB] 500 mg PO QDAY #5 tablet 12/14/18 Unknown Rx metroNIDAZOLE [Metronidazole] 500 mg PO BID #14 tablet 12/14/18 Unknown Rx Albuterol Sulfate [Proventil Hfa] 2 puff IH Q4HR PRN #1 hfa.aer.ad 02/06/19 Unknown Rx predniSONE [Deltasone] 50 mg PO QDAY #5 tab 02/06/19 Unknown Rx traMADol [Ultram] 50 mg PO Q6HR PRN #7 tablet 02/06/19 Unknown Rx Albuterol Sulfate [Proventil Hfa] 2 puff IH Q4HR PRN #1 hfa.aer.ad 03/05/19 Unknown Rx predniSONE [Deltasone] 50 mg PO QDAY #5 tab 03/05/19 Unknown Rx Allergies Allergy/AdvReac Type Severity Reaction Status Date / Time shellfish derived Allergy Severe Shortness Verified 02/05/19 16:34 of Breath ibuprofen [From Motrin] Allergy Mild Shortness Verified 02/05/19 16:34 of Breath tetracycline Allergy Shortness Verified 10/28/18 13:56 of Breath ED Review of Systems ROS: Stated complaint: SHORTNESS OF BREATH Other details as noted in HPI Comment: All other systems reviewed and negative Constitutional: denies: chills, fever Respiratory: shortness of breath, wheezing Cardiovascular: denies: chest pain ED Past Medical Hx - Past Medical History Previous Medical History?: Yes Hx Hypertension: Yes Hx Congestive Heart Failure: Yes Hx Diabetes: Yes Hx Deep Vein Thrombosis: Yes Hx Pulmonary Embolism: Yes Hx Arthritis: Yes (hands and legs) Hx Seizures: Yes Hx Psychiatric Treatment: Yes (bipolar disorder; schziphornia) Hx Asthma: Yes Hx COPD: Yes Hx HIV: Yes (ON ANTI-VIRALS) Additional medical history: CDIFF, spinal stenosis - Surgical History Past Surgical History?: Yes Hx Pacemaker: No Hx Internal Defibrillator: No Additional Surgical History: hysterectomy; rt arm skin graph - Social History Smoking Status: Never Smoker Substance Use Type: Prescribed - Medications Home Medications: Home Medications Medication Instructions Recorded Confirmed Last Taken Type amLODIPine [Norvasc] 5 mg PO QDAY #30 tablet 07/29/17 12/09/18 1 Day Ago Rx ~07/13/18 Phenytoin Sodium Extended 125 mg PO DAILY 30 Days capsule 09/15/17 12/09/18 1 Day Ago Rx [Dilantin] ~07/13/18 Furosemide [Lasix TAB] 40 mg PO QDAY 03/23/18 12/09/18 1 Day Ago History ~07/13/18 Genvoya Tablet 1 tab PO DAILY 03/23/18 12/09/18 1 Day Ago History ~07/13/18 Potassium Chloride [Klor-Con 10] 1 tab PO QDAY 03/23/18 12/09/18 1 Day Ago History ~07/13/18 Pantoprazole [Protonix TAB] 40 mg PO DAILY 08/31/18 12/09/18 Unknown History ALBUTEROL NEB's [Proventil 0.083% 2.5 mg IH Q4H PRN #120 neb 09/04/18 12/09/18 Unknown Rx NEBS] Advair 250-50 Diskus 1 puff PO BID #1 09/04/18 12/09/18 Unknown Rx Albuterol Sulfate [Ventolin Hfa] 2 puff IH Q4-6H PRN #1 hfa.aer.ad 09/04/18 12/09/18 Unknown Rx Polyethylene Glycol 3350 [Miralax] 17 gm PO DAILY 30 Days powder 09/04/18 12/09/18 Unknown Rx QUEtiapine [SEROquel] 200 mg PO QHS #30 tablet 09/04/18 12/09/18 Unknown Rx Sennosides/Docusate Sodium [Senna 2 each PO HS PRN #60 tablet 09/04/18 12/09/18 Unknown Rx Plus Tablet] Insulin NPH/Regular [NovoLIN 70/30] 30 unit SUB-Q BIDDIAB 30 Days 10/31/18 12/09/18 Unknown Rx units Fluconazole [Diflucan TAB] 150 mg PO ONCE #1 tablet 12/14/18 Unknown Rx Prednisone [predniSONE 10 mg 10 mg PO .TAPER #1 tab.ds.pk 12/14/18 Unknown Rx (6-Day Pack, 21 Tabs)] levoFLOXacin [Levaquin TAB] 500 mg PO QDAY #5 tablet 12/14/18 Unknown Rx metroNIDAZOLE [Metronidazole] 500 mg PO BID #14 tablet 12/14/18 Unknown Rx Albuterol Sulfate [Proventil Hfa] 2 puff IH Q4HR PRN #1 hfa.aer.ad 02/06/19 Unknown Rx predniSONE [Deltasone] 50 mg PO QDAY #5 tab 02/06/19 Unknown Rx traMADol [Ultram] 50 mg PO Q6HR PRN #7 tablet 02/06/19 Unknown Rx Albuterol Sulfate [Proventil Hfa] 2 puff IH Q4HR PRN #1 hfa.aer.ad 03/05/19 Unknown Rx predniSONE [Deltasone] 50 mg PO QDAY #5 tab 03/05/19 Unknown Rx ED Physical Exam - General Limitations: No Limitations General appearance: alert, in no apparent distress - Head Head exam: Present: atraumatic, normocephalic - Eye Eye exam: Present: normal appearance - ENT ENT exam: Present: mucous membranes moist - Respiratory Respiratory exam: Present: wheezes - Cardiovascular Cardiovascular Exam: Present: regular rate, normal rhythm - GI/Abdominal GI/Abdominal exam: Present: soft. Absent: distended, tenderness - Extremities Exam Extremities exam: Absent: pedal edema, calf tenderness - Neurological Exam Neurological exam: Present: alert, oriented X3 - Psychiatric Psychiatric exam: Present: normal affect, normal mood - Skin Skin exam: Present: warm, dry, intact, normal color ED Course Vital Signs 03/05/19 03/05/19 03/05/19 12:50 15:18 15:38 Temperature 97.6 F Pulse Rate 86 Pulse Rate [ 103 H 106 H Anterior Bilateral Throughout] Respiratory 22 Rate Respiratory 18 18 Rate [Anterior Bilateral Throughout] Blood Pressure 108/81 O2 Sat by Pulse 99 Oximetry ED Medical Decision Making - Lab Data Result diagrams: 03/05/19 13:28 03/05/19 13:28 - Radiology Data Radiology results: report reviewed, image reviewed - Medical Decision Making - COPD exacerbation w/ wheezing - CXR normal - albuterol/ atrovent nebs, prednisone given - no resp distress, O2 sats 100% RA - return precautions given - outpt f/u advised - Differential Diagnosis COPD, CHF, pneumonia Critical care attestation.: If time is entered above; I have spent that time in minutes in the direct care of this critically ill patient, excluding procedure time. ED Disposition Clinical Impression: Acute exacerbation of chronic obstructive pulmonary disease (COPD) Disposition: TO HOME OR SELFCARE Is pt being admited?: No Condition: Stable Instructions: Chronic Obstructive Pulmonary Disease (ED) Prescriptions: predniSONE [Deltasone] 50 mg PO QDAY #5 tab Albuterol Sulfate [Proventil Hfa] 2 puff IH Q4HR PRN #1 hfa.aer.ad PRN Reason: Wheezing Referrals: [facility] MD DES [Primary Care Provider] - 3-5 Days PRIMARY CAREMD [Referring] - 3-5 Days Time of Disposition: 17:18
== END 2019-03-05 17:42 | disposition home or self-care (01) ==
LOC: ED 12:45
DX: J44.1 Chronic obstructive pulmonary disease with (acute) exacerbation (principal); I11.0 Hypertensive heart disease with heart failure; I50.9 Heart failure, unspecified; E11.9 Type 2 diabetes mellitus without complications; F31.9 Bipolar disorder, unspecified; F20.9 Schizophrenia, unspecified; M19.90 Unspecified osteoarthritis, unspecified site; Z86.711 Personal history of pulmonary embolism; Z79.01 Long term (current) use of anticoagulants; Z86.718 Personal history of other venous thrombosis and embolism; Z90.710 Acquired absence of both cervix and uterus; Z79.899 Other long term (current) drug therapy; Z88.6 Allergy status to analgesic agent; Z88.1 Allergy status to other antibiotic agents; Z91.013 Allergy to seafood
CPT/HCPCS: 36415; 71046; 80053; 83880; 85025; 94640; 99284; J7512

== ENCOUNTER 2019-05-07 09:38 | Emergency (ER) | payer MEDICARE ==
[2019-05-07] MEDS ORDERED: LEVAQUIN PO ONE (11:06)
[2019-05-07] MEDS ORDERED: DUONEB *Not for PRN Use IH ONE (11:06)
[2019-05-07] MEDS ORDERED: DELTASONE PO ONE (11:06)
--- NOTE | 2019-05-07 11:40 | Emergency Department Report ---
ED Shortness of Breath HPI - General Chief Complaint: Dyspnea/Respdistress Stated Complaint: CARL Time Seen by Provider: 05/07/19 11:05 Source: patient, EMS Mode of arrival: Wheelchair Limitations: Physical Limitation - History of Present Illness Initial Comments: Mrs. Ramirez is a 63 yo female with hx of COPD, HIV, CHF, HTN, seizure disorder, Schizohrenia, PTSD, DM, who presents with dyspnea and wheezing. No fever. NO chest pain, Mild nonproductive cough. Gradual onset of dyspnea several days ago. MD Complaint: shortness of breath -: Gradual, days(s) (3-5) Severity: mild Consistency: constant Improves With: bronchodilators Worsens With: exertion Known History Of: COPD, asthma, congestive heart failure Associated Symptoms: cough - Related Data Home Medications Medication Instructions Recorded Confirmed Last Taken Furosemide [Lasix TAB] 40 mg PO QDAY 03/23/18 12/09/18 1 Day Ago ~07/13/18 Genvoya Tablet 1 tab PO DAILY 03/23/18 12/09/18 1 Day Ago ~07/13/18 Potassium Chloride [Klor-Con 10] 1 tab PO QDAY 03/23/18 12/09/18 1 Day Ago ~07/13/18 Pantoprazole [Protonix TAB] 40 mg PO DAILY 08/31/18 12/09/18 Unknown Previous Rx's Medication Instructions Recorded Last Taken Type amLODIPine [Norvasc] 5 mg PO QDAY #30 tablet 07/29/17 1 Day Ago Rx ~07/13/18 Phenytoin Sodium Extended 125 mg PO DAILY 30 Days capsule 09/15/17 1 Day Ago Rx [Dilantin] ~07/13/18 ALBUTEROL NEB's [Proventil 0.083% 2.5 mg IH Q4H PRN #120 neb 09/04/18 Unknown Rx NEBS] Advair 250-50 Diskus 1 puff PO BID #1 09/04/18 Unknown Rx Albuterol Sulfate [Ventolin Hfa] 2 puff IH Q4-6H PRN #1 hfa.aer.ad 09/04/18 Unknown Rx Polyethylene Glycol 3350 [Miralax] 17 gm PO DAILY 30 Days powder 09/04/18 Unknown Rx QUEtiapine [SEROquel] 200 mg PO QHS #30 tablet 09/04/18 Unknown Rx Sennosides/Docusate Sodium [Senna 2 each PO HS PRN #60 tablet 09/04/18 Unknown Rx Plus Tablet] Insulin NPH/Regular [NovoLIN 70/30] 30 unit SUB-Q BIDDIAB 30 Days 10/31/18 Unknown Rx units Fluconazole [Diflucan TAB] 150 mg PO ONCE #1 tablet 12/14/18 Unknown Rx Prednisone [predniSONE 10 mg 10 mg PO .TAPER #1 tab.ds.pk 12/14/18 Unknown Rx (6-Day Pack, 21 Tabs)] levoFLOXacin [Levaquin TAB] 500 mg PO QDAY #5 tablet 12/14/18 Unknown Rx metroNIDAZOLE [Metronidazole] 500 mg PO BID #14 tablet 12/14/18 Unknown Rx Albuterol Sulfate [Proventil Hfa] 2 puff IH Q4HR PRN #1 hfa.aer.ad 02/06/19 Unknown Rx predniSONE [Deltasone] 50 mg PO QDAY #5 tab 02/06/19 Unknown Rx traMADol [Ultram] 50 mg PO Q6HR PRN #7 tablet 02/06/19 Unknown Rx Albuterol Sulfate [Proventil Hfa] 2 puff IH Q4HR PRN #1 hfa.aer.ad 03/05/19 Unknown Rx predniSONE [Deltasone] 50 mg PO QDAY #5 tab 03/05/19 Unknown Rx Azithromycin [Zithromax Z-LUAN] 250 mg PO DAILY #6 tablet 05/07/19 Unknown Rx Prednisone [predniSONE 10 mg 10 mg PO .TAPER #1 tab.ds.pk 05/07/19 Unknown Rx (6-Day Pack, 21 Tabs)] Allergies Allergy/AdvReac Type Severity Reaction Status Date / Time shellfish derived Allergy Severe Shortness Verified 02/05/19 16:34 of Breath ibuprofen [From Motrin] Allergy Mild Shortness Verified 02/05/19 16:34 of Breath tetracycline Allergy Shortness Verified 10/28/18 13:56 of Breath ED Review of Systems ROS: Stated complaint: CARL Other details as noted in HPI Comment: All other systems reviewed and negative Constitutional: denies: fever, malaise Respiratory: cough, shortness of breath, wheezing Cardiovascular: denies: chest pain Gastrointestinal: denies: abdominal pain, nausea, vomiting ED Past Medical Hx - Past Medical History Previous Medical History?: Yes Hx Hypertension: Yes Hx Congestive Heart Failure: Yes Hx Diabetes: Yes Hx Deep Vein Thrombosis: Yes Hx Pulmonary Embolism: Yes Hx Arthritis: Yes (hands and legs) Hx Seizures: Yes Hx Psychiatric Treatment: Yes (bipolar disorder; schziphornia) Hx Asthma: Yes Hx COPD: Yes Hx HIV: Yes (ON ANTI-VIRALS) Additional medical history: CDIFF, spinal stenosis - Surgical History Past Surgical History?: Yes Hx Pacemaker: No Hx Internal Defibrillator: No Additional Surgical History: hysterectomy; rt arm skin graph - Social History Smoking Status: Never Smoker Substance Use Type: Prescribed - Medications Home Medications: Home Medications Medication Instructions Recorded Confirmed Last Taken Type amLODIPine [Norvasc] 5 mg PO QDAY #30 tablet 07/29/17 12/09/18 1 Day Ago Rx ~07/13/18 Phenytoin Sodium Extended 125 mg PO DAILY 30 Days capsule 09/15/17 12/09/18 1 Day Ago Rx [Dilantin] ~07/13/18 Furosemide [Lasix TAB] 40 mg PO QDAY 03/23/18 12/09/18 1 Day Ago History ~07/13/18 Genvoya Tablet 1 tab PO DAILY 03/23/18 12/09/18 1 Day Ago History ~07/13/18 Potassium Chloride [Klor-Con 10] 1 tab PO QDAY 03/23/18 12/09/18 1 Day Ago History ~07/13/18 Pantoprazole [Protonix TAB] 40 mg PO DAILY 08/31/18 12/09/18 Unknown History ALBUTEROL NEB's [Proventil 0.083% 2.5 mg IH Q4H PRN #120 neb 09/04/18 12/09/18 Unknown Rx NEBS] Advair 250-50 Diskus 1 puff PO BID #1 09/04/18 12/09/18 Unknown Rx Albuterol Sulfate [Ventolin Hfa] 2 puff IH Q4-6H PRN #1 hfa.aer.ad 09/04/18 12/09/18 Unknown Rx Polyethylene Glycol 3350 [Miralax] 17 gm PO DAILY 30 Days powder 09/04/18 12/09/18 Unknown Rx QUEtiapine [SEROquel] 200 mg PO QHS #30 tablet 09/04/18 12/09/18 Unknown Rx Sennosides/Docusate Sodium [Senna 2 each PO HS PRN #60 tablet 09/04/18 12/09/18 Unknown Rx Plus Tablet] Insulin NPH/Regular [NovoLIN 70/30] 30 unit SUB-Q BIDDIAB 30 Days 10/31/18 12/09/18 Unknown Rx units Fluconazole [Diflucan TAB] 150 mg PO ONCE #1 tablet 12/14/18 Unknown Rx Prednisone [predniSONE 10 mg 10 mg PO .TAPER #1 tab.ds.pk 12/14/18 Unknown Rx (6-Day Pack, 21 Tabs)] levoFLOXacin [Levaquin TAB] 500 mg PO QDAY #5 tablet 12/14/18 Unknown Rx metroNIDAZOLE [Metronidazole] 500 mg PO BID #14 tablet 12/14/18 Unknown Rx Albuterol Sulfate [Proventil Hfa] 2 puff IH Q4HR PRN #1 hfa.aer.ad 02/06/19 Unknown Rx predniSONE [Deltasone] 50 mg PO QDAY #5 tab 02/06/19 Unknown Rx traMADol [Ultram] 50 mg PO Q6HR PRN #7 tablet 02/06/19 Unknown Rx Albuterol Sulfate [Proventil Hfa] 2 puff IH Q4HR PRN #1 hfa.aer.ad 03/05/19 Unknown Rx predniSONE [Deltasone] 50 mg PO QDAY #5 tab 03/05/19 Unknown Rx Azithromycin [Zithromax Z-LUAN] 250 mg PO DAILY #6 tablet 05/07/19 Unknown Rx Prednisone [predniSONE 10 mg 10 mg PO .TAPER #1 tab.ds.pk 05/07/19 Unknown Rx (6-Day Pack, 21 Tabs)] ED Physical Exam - General Limitations: Physical Limitation General appearance: alert, in no apparent distress, other (appears well, speaking full word sentences, no work of breathing) - Head Head exam: Present: atraumatic, normocephalic - Eye Eye exam: Present: normal appearance - ENT ENT exam: Present: mucous membranes moist - Neck Neck exam: Present: normal inspection - Respiratory Respiratory exam: Present: wheezes (faint expiratory wheezes otherwise good air movement). Absent: respiratory distress, rales, rhonchi, accessory muscle use, decreased breath sounds, prolonged expiratory - Cardiovascular Cardiovascular Exam: Present: regular rate, normal rhythm, normal heart sounds. Absent: systolic murmur, diastolic murmur, rubs, gallop - GI/Abdominal GI/Abdominal exam: Present: soft, normal bowel sounds. Absent: distended, tenderness, guarding, rebound - Extremities Exam Extremities exam: Present: normal inspection - Back Exam Back exam: Present: normal inspection - Neurological Exam Neurological exam: Present: alert, oriented X3 - Psychiatric Psychiatric exam: Present: normal affect, normal mood - Skin Skin exam: Present: warm, dry, intact, normal color. Absent: rash ED Course Vital Signs 05/07/19 09:44 Temperature 97.6 F Pulse Rate 100 H Respiratory 18 Rate Blood Pressure 115/87 O2 Sat by Pulse 95 Oximetry ED Medical Decision Making - Medical Decision Making Mrs. Ramirez appears well. Will treat for COPD exacerbation with prednisone and azithromycin Do not suspect PNA, PE, ACS, CHF exacerbation. She understands to return to the ED for worsening or new symptoms. Critical care attestation.: If time is entered above; I have spent that time in minutes in the direct care of this critically ill patient, excluding procedure time. ED Disposition Clinical Impression: COPD with acute exacerbation Disposition: DC-01 TO HOME OR SELFCARE Is pt being admited?: No Does the pt Need Aspirin: No Condition: Stable Instructions: Chronic Obstructive Pulmonary Disease (ED) Prescriptions: Prednisone [predniSONE 10 mg (6-Day Pack, 21 Tabs)] 10 mg PO .TAPER #1 tab.ds.pk Azithromycin [Zithromax Z-LUAN] 250 mg PO DAILY #6 tablet Referrals: PRIMARY CARE, [Primary Care Provider] - 3-5 Days
[2019-05-07 11:54] VITALS: BP 115/84
== END 2019-05-07 11:53 | disposition home or self-care (01) ==
LOC: ED 09:38
DX: J45.901 Unspecified asthma with (acute) exacerbation (principal); I11.0 Hypertensive heart disease with heart failure; I50.9 Heart failure, unspecified; E11.9 Type 2 diabetes mellitus without complications; Z86.718 Personal history of other venous thrombosis and embolism; M19.90 Unspecified osteoarthritis, unspecified site; F31.9 Bipolar disorder, unspecified; F20.9 Schizophrenia, unspecified; Z90.710 Acquired absence of both cervix and uterus; Z98.890 Other specified postprocedural states; Z79.4 Long term (current) use of insulin; Z88.6 Allergy status to analgesic agent; Z88.1 Allergy status to other antibiotic agents; Z91.013 Allergy to seafood
CPT/HCPCS: 94640; 99283; J7512

== ENCOUNTER 2019-07-29 10:15 | Inpatient (IN) | payer MEDICARE ==
[2019-07-29] MEDS ORDERED: MAGNESIUM SULFATE 2 GM/50 ML BAG IV ONE (10:51)
[2019-07-29] MEDS ORDERED: ALBUTEROL 2.5 MG/3 ML NEBU IH ONE (10:51)
[2019-07-29] MEDS ORDERED: methylPREDNISolone Sod Succinate 125 MG/2 ML INJ IV ONE (10:51)
--- NOTE | 2019-07-29 11:30 | Emergency Department Report ---
HPI - General Chief Complaint: Dyspnea/Respdistress Time Seen by Provider: 07/29/19 10:42 - HPI HPI: 63-year-old -[place] female presents to the emergency department via EMS from home with complaint of a 3 day history of progressively worsening shortness of breath. The patient has a past medical history of CHF, COPD, diabetes, HIV, hypertension, CHF, previous DVT/PE, bipolar disorder and schizophrenia. She says she has been using her albuterol inhaler without any relief. She got 5 mg of albuterol in route with EMS. She denies having a medicare nurse or clinic scheduler per she does have a primary care physician but cannot currently remember the name. No recent travel or sick contacts at home. The patient is not currently anticoagulated from her history of DVT/PE but does have a IVC filter in place. ED Past Medical Hx - Past Medical History Previous Medical History?: Yes Hx Hypertension: Yes Hx Congestive Heart Failure: Yes Hx Diabetes: Yes Hx Deep Vein Thrombosis: Yes Hx Pulmonary Embolism: Yes Hx Arthritis: Yes (hands and legs) Hx Seizures: Yes Hx Psychiatric Treatment: Yes (bipolar disorder; schziphornia) Hx Asthma: Yes Hx COPD: Yes Hx HIV: Yes (ON ANTI-VIRALS) Additional medical history: CDIFF, spinal stenosis - Surgical History Past Surgical History?: No Hx Pacemaker: No Hx Internal Defibrillator: No Additional Surgical History: hysterectomy; rt arm skin graph - Social History Smoking Status: Never Smoker Substance Use Type: None - Medications Home Medications: Home Medications Medication Instructions Recorded Confirmed Last Taken Type amLODIPine 5 mg PO QDAY #30 tablet 07/29/17 07/29/19 07/28/19 Rx Furosemide [Lasix TAB] 40 mg PO QDAY 03/23/18 07/29/19 07/28/19 History Genvoya Tablet 1 tab PO DAILY 03/23/18 07/29/19 07/28/19 History Albuterol Sulfate [Ventolin Hfa] 2 puff IH Q4-6H PRN #1 hfa.aer.ad 09/04/18 07/29/19 07/29/19 Rx QUEtiapine [SEROquel] 200 mg PO QHS #30 tablet 09/04/18 07/29/19 07/28/19 Rx Insulin NPH/Regular [NovoLIN 70/30] 30 unit SUB-Q BIDDIAB 30 Days 10/31/18 07/29/19 07/28/19 Rx units ED Review of Systems ROS: Stated complaint: CARL Other details as noted in HPI Comment: All other systems reviewed and negative Constitutional: denies: chills, fever Eyes: denies: eye pain, vision change Respiratory: cough, shortness of breath, wheezing Cardiovascular: denies: palpitations, edema Gastrointestinal: denies: nausea, vomiting Genitourinary: denies: dysuria, discharge Musculoskeletal: denies: back pain, arthralgia Skin: denies: rash, lesions Neurological: denies: headache, weakness Physical Exam - Physical Exam Vital Signs: Vital Signs 07/29/19 10:31 Temperature 98.6 F Pulse Rate 108 H Respiratory 14 Rate Blood Pressure 113/92 [Right] O2 Sat by Pulse 99 Oximetry Physical Exam: GENERAL: The patient is well-developed well-nourished. HENT: Normocephalic. Atraumatic. Patient has moist mucous membranes. EYES: Extraocular motions are intact. Pupils equal reactive to light bilaterally. NECK: Supple. Trachea is midline. CHEST/LUNGS: Moderate wheezing throughout the chest. There is some tachypnea but no accessory muscle use. There is no respiratory distress noted. HEART/CARDIOVASCULAR: Regular. There is no tachycardia. There is no murmur. ABDOMEN: Abdomen is soft, nontender. Patient has normal bowel sounds. Morbidly obese habitus. SKIN: Skin is warm and dry. NEURO: The patient is awake, alert, and oriented. The patient is cooperative. The patient has no focal neurologic deficits. Normal speech. MUSCULOSKELETAL: There is no tenderness or deformity. There is no evidence of acute injury. ED Course Vital Signs 07/29/19 10:31 Temperature 98.6 F Pulse Rate 108 H Respiratory 14 Rate Blood Pressure 113/92 [Right] O2 Sat by Pulse 99 Oximetry ED Medical Decision Making - Lab Data Result diagrams: 07/30/19 04:39 07/30/19 04:39 - EKG Data -: EKG Interpreted by Me EKG shows normal: sinus rhythm (PACs), axis, intervals, QRS complexes, ST-T waves Rate: normal - EKG Data When compared to previous EKG there are: no significant change Interpretation: unchanged when compared t (01/26/19) - Radiology Data Radiology results: image reviewed interpreted by me: Chest x-ray shows some hyperinflation of the lungs but no obvious pneumonia, pleural effusions or pneumothorax. Radiology reads mild right basilar hazy airspace disease. - Medical Decision Making This patient presents to the emergency department with some shortness of breath and chest tightness. Patient does have a moderate amount of bronchospasm with some wheezing and tachypnea but she does not appear in any respiratory distress. Chest x-ray was read by radiology as showing mild right basilar airspace disease. Labs were mostly unremarkable except for some mild hypokalemia that was replaced with potassium chloride, and some mild hyperglycemia without DKA. She was given steroids, magnesium and a few rounds of breathing treatments. She was given some pain medication and still complains of the chest pain and tightness. I believe the chest discomfort is respiratory in nature. The patient will be admitted to the hospital for further evaluation and treatment and was accepted for admission by the hospitalist, Dr. Joshi. - Differential Diagnosis COPD, Pneumonia, Bronchitis, Asthma Critical Care Time: No Critical care attestation.: If time is entered above; I have spent that time in minutes in the direct care of this critically ill patient, excluding procedure time. ED Disposition Clinical Impression: Acute exacerbation of chronic obstructive pulmonary disease (COPD), SOB (shortness of breath) Disposition: 09 OP ADMIT IP TO THIS HOSP Is pt being admited?: Yes Condition: Fair Time of Disposition: 13:04
[2019-07-29 11:53] LABS: Basophils % (Auto) 0.4 % (0.0-1.8); Eosinophils # (Auto) 0.1 K/mm3 (0.0-0.4); Hematocrit 35.9 % (30.3-42.9); Hemoglobin 12.4 gm/dl (10.1-14.3); Lymphocytes # (Auto) 1.6 K/mm3 (1.2-5.4); Lymphocytes % (Auto) 42.4 % (13.4-35.0); Mean Corpuscular HGB Conc 35 % (30-34); Mean Corpuscular Volume 106 fl (79-97); Monocytes # (Auto) 0.4 K/mm3 (0.0-0.8); Monocytes % (Auto) 9.8 % (0.0-7.3); Platelet Count 171 K/mm3 (140-440); Red Cell Distribution Width 13.6 % (13.2-15.2)
[2019-07-29 11:57] LABS: INR 1.07 (0.87-1.13)
[2019-07-29 11:58] LABS: Partial Thromboplastin Time 27.6 Sec. (24.2-36.6)
--- NOTE | 2019-07-29 11:59 | XRay Report ---
CHEST 1 VIEW INDICATION: SOB. COMPARISON: 03/05/2019 FINDINGS: Support devices: None. Heart: Within normal limits. Lungs/Pleura: Minimal hazy right basilar airspace disease with clear left lung. Additional findings: None. IMPRESSION: 1. Minimal hazy right basilar airspace disease. Signer Name: Nirmal Ruiz MD Signed: 07/29/2019 11:55 AM Workstation Name: [id number]
[2019-07-29 12:14] LABS: Alanine Aminotransferase 6 units/L (7-56); Albumin 3.9 g/dL (3.9-5); BUN/Creatinine Ratio 32; Blood Urea Nitrogen 16 mg/dL (7-17); Calcium 9.1 mg/dL (8.4-10.2); Hemolysis Index 0
[2019-07-29] MEDS ORDERED: POTASSIUM CHLORIDE ER 20 MEQ TAB PO ONE ×3 (12:18→20:02)
[2019-07-29] MEDS ORDERED: MORPHINE 4 MG/1 ML INJ IV ONE (12:25)
[2019-07-29] MEDS ORDERED: BENZONATATE 100 MG CAP PO ONE (15:35)
[2019-07-29] MEDS: BENZONATATE 100 MG CAP PO SCH ×2 (16:20→22:48)
[2019-07-29] MEDS ORDERED: ALBUTEROL 8.5 GM INHALATION IH PRN (16:52)
[2019-07-29] MEDS ORDERED: ONDANSETRON 4 MG/2 ML INJ IV PRN (16:54)
[2019-07-29] MEDS ORDERED: HYDROmorphone 1 MG/1 ML INJ IV PRN (16:54)
[2019-07-29] MEDS ORDERED: ACETAMINOPHEN 325 MG TAB PO PRN ×2 (16:54→17:39)
[2019-07-29] MEDS ORDERED: IPRATROPIUM/ALBUTEROL SULFATE 3 ML AMPUL.NEB IH PRN (16:56)
[2019-07-29] MEDS ORDERED: GENVOYA PO SCH (17:00)
--- NOTE | 2019-07-29 17:04 | History and Physical Report ---
History of Present Illness Date of examination: 07/29/19 Date of admission: 07/29/19 13:04 Chief complaint: Increasing Shortness of breath for 3 days. History of present illness: 63-year-old -[place] female with history of seizures COPD HIV insulin- dependent diabetes and bipolar disorder comes in for increasing shortness of breath of 3 days' duration. Cough productive of mucoid sputum . No fever or chills. Patient not responding to outpatient treatment and nebulizer treatments. After EMS arrived patient was found to be very hypoxic with saturations around 80%. Patient was given nebulizer treatments by EMS at all Past Medical History Previous Medical History?: Yes Hypertension Congestive Heart Failure Diabetes Deep Vein Thrombosis Pulmonary Embolism Arthritis Seizures Psychiatric Treatment: Yes (bipolar disorder; schziphornia) Asthma COPD HIV: ON ANTI-VIRALs Additional medical history: CDIFF, spinal stenosis Surgical History Past Surgical History Hysterectomy; rt arm skin graft Social History Smoking Status: Never Smoker Substance Use Type: None Medications Home Medications: Home Medications Medication Instructions Recorded Confirmed Last Taken Type amLODIPine 5 mg PO QDAY #30 tablet 07/29/17 12/09/18 1 Day Ago Rx ~07/13/18 Phenytoin Sodium Extended 125 mg PO DAILY 30 Days capsule 09/15/17 12/09/18 1 Day Ago Rx [Dilantin] ~07/13/18 Furosemide [Lasix TAB] 40 mg PO QDAY 03/23/18 12/09/18 1 Day Ago History ~07/13/18 Genvoya Tablet 1 tab PO DAILY 03/23/18 12/09/18 1 Day Ago History ~07/13/18 Potassium Chloride [Klor-Con 10] 1 tab PO QDAY 03/23/18 12/09/18 1 Day Ago History ~07/13/18 Pantoprazole [Protonix TAB] 40 mg PO DAILY 08/31/18 12/09/18 Unknown History ALBUTEROL NEB's [Proventil 0.083% 2.5 mg IH Q4H PRN #120 neb 09/04/18 12/09/18 Unknown Rx NEBS] Advair 250-50 Diskus 1 puff PO BID #1 09/04/18 12/09/18 Unknown Rx Albuterol Sulfate [Ventolin Hfa] 2 puff IH Q4-6H PRN #1 hfa.aer.ad 09/04/18 12/09/18 Unknown Rx Polyethylene Glycol 3350 [Miralax] 17 gm PO DAILY 30 Days powder 09/04/18 12/09/18 Unknown Rx QUEtiapine [SEROquel] 200 mg PO QHS #30 tablet 09/04/18 12/09/18 Unknown Rx Sennosides/Docusate Sodium [Senna 2 each PO HS PRN #60 tablet 09/04/18 12/09/18 Unknown Rx Plus Tablet] Insulin NPH/Regular [NovoLIN 70/30] 30 unit SUB-Q BIDDIAB 30 Days 10/31/18 12/09/18 Unknown Rx units Fluconazole [Diflucan TAB] 150 mg PO ONCE #1 tablet 12/14/18 Unknown Rx Prednisone [predniSONE 10 mg 10 mg PO .TAPER #1 tab.ds.pk 12/14/18 Unknown Rx (6-Day Pack, 21 Tabs)] levoFLOXacin [Levaquin TAB] 500 mg PO QDAY #5 tablet 12/14/18 Unknown Rx metroNIDAZOLE [Metronidazole] 500 mg PO BID #14 tablet 12/14/18 Unknown Rx Albuterol Sulfate [Proventil Hfa] 2 puff IH Q4HR PRN #1 hfa.aer.ad 02/06/19 Unknown Rx predniSONE [Deltasone] 50 mg PO QDAY #5 tab 02/06/19 Unknown Rx traMADoL [Ultram] 50 mg PO Q6HR PRN #7 tablet 02/06/19 Unknown Rx Albuterol Sulfate [Proventil Hfa] 2 puff IH Q4HR PRN #1 hfa.aer.ad 03/05/19 Unknown Rx predniSONE [Deltasone] 50 mg PO QDAY #5 tab 03/05/19 Unknown Rx Azithromycin [Zithromax Z-LUAN] 250 mg PO DAILY #6 tablet 05/07/19 Unknown Rx Prednisone [predniSONE 10 mg 10 mg PO .TAPER #1 tab.ds.pk 05/07/19 Unknown Rx (6-Day Pack, 21 Tabs)] Review of Systems ROS: Stated complaint: CARL Other details as noted in HPI Comment: All other systems reviewed and negative Constitutional: denies: chills, fever Eyes: denies: eye pain, vision change Respiratory: cough, shortness of breath, wheezing Cardiovascular: denies: palpitations, edema Gastrointestinal: denies: nausea, vomiting Genitourinary: denies: dysuria, discharge Musculoskeletal: denies: back pain, arthralgia Skin: denies: rash, lesions Neurological: denies: headache, weakness Medications and Allergies Allergies Allergy/AdvReac Type Severity Reaction Status Date / Time shellfish derived Allergy Severe Shortness Verified 02/05/19 16:34 of Breath ibuprofen [From Motrin] Allergy Mild Shortness Verified 02/05/19 16:34 of Breath tetracycline Allergy Shortness Verified 10/28/18 13:56 of Breath Home Medications Medication Instructions Recorded Confirmed Last Taken Type amLODIPine 5 mg PO QDAY #30 tablet 07/29/17 07/29/19 07/28/19 Rx Furosemide [Lasix TAB] 40 mg PO QDAY 03/23/18 07/29/19 07/28/19 History Genvoya Tablet 1 tab PO DAILY 03/23/18 07/29/19 07/28/19 History Albuterol Sulfate [Ventolin Hfa] 2 puff IH Q4-6H PRN #1 hfa.aer.ad 09/04/1803/1007/29/19 Rx QUEtiapine [SEROquel] 200 mg PO QHS #30 tablet 09/04/18 07/29/19 07/28/19 Rx Insulin NPH/Regular [NovoLIN 70/30] 30 unit SUB-Q BIDDIAB 30 Days 10/31/18 07/29/19 07/28/19 Rx units Active Meds: Active Medications Acetaminophen (Tylenol) 650 mg PO Q4H PRN PRN Reason: Pain MILD(1-3)/Fever >100.5/MOEYR Albuterol (Proair) 2 puff IH Q4-6H PRN PRN Reason: Shortness Of Breath Albuterol/Ipratropium (Duoneb *Not For Prn Use*) 1 ampul IH Q3H PRN PRN Reason: Wheezing Albuterol/Ipratropium (Duoneb *Not For Prn Use*) 1 ampul IH QIDRT [facility] Amlodipine Besylate (Amlodipine) 5 mg PO QDAY [facility] Benzonatate (Tessalon Perles) 100 mg PO Q8HR [facility] Last Admin: 07/29/19 16:20 Dose: 100 mg Documented by: Furosemide (Lasix) 40 mg PO QDAY [facility] Hydromorphone HCl (Dilaudid) 0.5 mg IV Q3H PRN PRN Reason: Pain , Severe (7-10) Levofloxacin/Dextrose (Levaquin 750mg/150ml) 750 mg in 150 mls @ 100 mls/hr IV Q24HR [facility]; Protocol Insulin Human Isoph/Insulin Regular (Humulin 70/30) 30 unit SUB-Q BIDDIAB [facility] Methylprednisolone Sodium Succinate (Solu-Medrol) 80 mg IV Q8HR [facility] Miscellaneous Medication (Genvoya Tablet) 1 tab PO DAILY [facility] Ondansetron HCl (Zofran) 4 mg IV Q8H PRN PRN Reason: Nausea And Vomiting Oxycodone/Acetaminophen (Percocet 5/325) 1 tab PO Q6H PRN PRN Reason: Pain, Moderate (4-6) Quetiapine Fumarate (Seroquel) 200 mg PO QHS [facility] Sodium Chloride (Sodium Chloride Flush Syringe 10 Ml) 10 ml IV BID [facility] Sodium Chloride (Sodium Chloride Flush Syringe 10 Ml) 10 ml IV PRN PRN PRN Reason: LINE FLUSH Exam - Constitutional Vitals: Temp Pulse Resp BP Pulse Ox 98.6 F 98 H 14 157/88 96 07/29/19 10:31 07/29/19 13:36 07/29/19 13:36 07/29/19 13:36 07/29/19 13:36 General appearance: Present: severe distress, well-nourished - EENT Eyes: Present: PERRL ENT: hearing intact, clear oral mucosa - Neck Neck: Present: supple, normal ROM - Respiratory Respiratory effort: normal Respiratory: bilateral: diminished, rhonchi, wheezing - Cardiovascular Heart rate: 88 Rhythm: regular Heart Sounds: Present: S1 & S2. Absent: rub, click - Extremities Extremities: no ischemia, pulses symmetrical, No edema Peripheral Pulses: within normal limits - Abdominal General gastrointestinal: Present: soft, non-tender, non-distended, normal bowel sounds Female genitourinary: Present: normal - Rectal Rectal Exam: deferred - Integumentary Integumentary: Present: clear, warm, dry - Musculoskeletal Musculoskeletal: gait normal, strength equal bilaterally - Psychiatric Psychiatric: appropriate mood/affect, intact judgment & insight - Neurologic Neurologic: CNII-XII intact, moves all extremities Results - Labs CBC & Chem 7: 07/29/19 11:26 07/29/19 11:26 Labs: Laboratory Last Values WBC 3.9 K/mm3 (4.5-11.0) L 07/29/19 11:26 RBC 3.40 M/mm3 (3.65-5.03) L 07/29/19 11:26 Hgb 12.4 gm/dl (10.1-14.3) 07/29/19 11:26 Hct 35.9 % (30.3-42.9) 07/29/19 11:26 MCV 106 fl (79-97) H 07/29/19 11:26 MCH 36 pg (28-32) H 07/29/19 11:26 MCHC 35 % (30-34) H 07/29/19 11:26 RDW 13.6 % (13.2-15.2) 07/29/19 11:26 Plt Count 171 K/mm3 (140-440) 07/29/19 11:26 Lymph % (Auto) 42.4 % (13.4-35.0) H 07/29/19 11:26 Whiteside % (Auto) 9.8 % (0.0-7.3) H 07/29/19 11:26 Eos % (Auto) 2.0 % (0.0-4.3) 07/29/19 11:26 Baso % (Auto) 0.4 % (0.0-1.8) 07/29/19 11:26 Lymph # 1.6 K/mm3 (1.2-5.4) 07/29/19 11:26 Whiteside # 0.4 K/mm3 (0.0-0.8) 07/29/19 11:26 Eos # 0.1 K/mm3 (0.0-0.4) 07/29/19 11:26 Baso # 0.0 K/mm3 (0.0-0.1) 07/29/19 11:26 Seg Neutrophils % 45.4 % (40.0-70.0) 07/29/19 11:26 Seg Neutrophils # 1.7 K/mm3 (1.8-7.7) L 07/29/19 11:26 PT 13.8 Sec. (12.2-14.9) 07/29/19 11:12 INR 1.07 (0.87-1.13) 07/29/19 11:12 APTT 27.6 Sec. (24.2-36.6) 07/29/19 11:12 POC ABG pH 7.431 (7.35-7.45) 07/29/19 13:29 POC ABG pCO2 42.8 (35-45) 07/29/19 13:29 POC ABG pO2 76 (80-105) L 07/29/19 13:29 POC ABG HCO3 28.4 (22-26 mml/L) 07/29/19 13:29 POC ABG Total CO2 30 (23-27mmol/L) 07/29/19 13:29 POC ABG O2 Sat 95 07/29/19 13:29 POC ABG Base Excess 4 ((-2) - (+3)mmol/L) 07/29/19 13:29 FiO2 21 % 07/29/19 13:29 Sodium 141 mmol/L (137-145) 07/29/19 11:26 Potassium 3.0 mmol/L (3.6-5.0) L 07/29/19 11:26 Chloride 100.7 mmol/L (98-107) 07/29/19 11:26 Carbon Dioxide 23 mmol/L (22-30) 07/29/19 11:26 Anion Gap 20 mmol/L 07/29/19 11:26 BUN 16 mg/dL (7-17) 07/29/19 11:26 Creatinine 0.5 mg/dL (0.7-1.2) L 07/29/19 11:26 Estimated GFR > 60 ml/min 07/29/19 11:26 BUN/Creatinine Ratio 32 % 07/29/19 11:26 Glucose 227 mg/dL (65-100) H 07/29/19 11:26 Calcium 9.1 mg/dL (8.4-10.2) 07/29/19 11:26 Total Bilirubin < 0.20 mg/dL (0.1-1.2) 07/29/19 11:26 AST 10 units/L (5-40) 07/29/19 11:26 ALT 6 units/L (7-56) L 07/29/19 11:26 Alkaline Phosphatase 123 units/L (35-129) 07/29/19 11:26 Troponin T < 0.010 ng/mL (0.00-0.029) 07/29/19 11:26 NT-Pro-B Natriuret Pep 79.54 pg/mL (0-900) 07/29/19 11:26 Total Protein 7.5 g/dL (6.3-8.2) 07/29/19 11:26 Albumin 3.9 g/dL (3.9-5) 07/29/19 11:26 Albumin/Globulin Ratio 1.1 % 07/29/19 11:26 - Imaging and Cardiology EKG: report reviewed (sinus rhythm heart rate of 93/m, atrial premature complexes) Chest x-ray: report reviewed (IMPRESSION:) Imaging and Cardiology: Chest x-ray IMPRESSION: 1. Minimal hazy right basilar airspace disease. Assessment and Plan Advance Directives: Yes (full code) VTE prophylaxis?: Chemical Plan of care discussed with patient/family: Yes - Patient Problems (1) Right lower lobe pneumonia Current Visit: Yes Status: Acute Plan to address problem: Right lower lobe infiltrate on x-ray IV Levaquin initiated Nebulizer treatments initiated (2) Acute respiratory failure with hypoxia Current Visit: Yes Status: Acute Plan to address problem: Patient is hypoxic initially and in respiratory distress initially The patient improved with nebulizer treatments and oxygen Nebulizer treatments, IV Solu-Medrol and IV Levaquin for now BiPAP and intubation if necessary (3) Acute exacerbation of chronic obstructive pulmonary disease (COPD) Current Visit: No Status: Acute Plan to address problem: Patient initiated on nebulizer treatments and IV steroids and IV Levaquin (4) HIV (human immunodeficiency virus infection) Current Visit: No Status: Chronic Qualifiers: HIV symptom status: asymptomatic Qualified Code(s): Z21 - Asymptomatic human immunodeficiency virus [HIV] infection status Plan to address problem: Continue Genvoya 1 tablet once a day (5) HTN (hypertension) Current Visit: No Status: Acute Qualifiers: Plan to address problem: Continue antihypertensives (6) IDDM (insulin dependent diabetes mellitus) Current Visit: No Status: Chronic Plan to address problem: Continue insulin 7030 twice a day and coverage (7) Hypokalemia Current Visit: Yes Status: Acute Plan to address problem: Supplemented (8) DVT prophylaxis Current Visit: No Status: Acute Plan to address problem: Heparin subcutaneous and GI prophylaxis
[2019-07-29] MEDS ORDERED: INSULIN NPH/REGULAR 70/30 INJ SUB-Q SCH (18:00)
[2019-07-29] MEDS ORDERED: FUROSEMIDE 20 MG TAB ONE ×2 (18:09→20:02)
[2019-07-29] MEDS ORDERED: ALBUTEROL 2.5 MG/3 ML NEBU IH PRN (18:16)
[2019-07-29] MEDS ORDERED: amLODIPine 5 MG TAB ONE (20:02)
[2019-07-29] MEDS ORDERED: methylPREDNISolone Sod Succinate 40 MG/1 ML INJ ONE (20:03)
[2019-07-29] MEDS: FUROSEMIDE 40 MG TAB PO SCH (20:06)
[2019-07-29] MEDS: amLODIPine 5 MG TAB PO SCH (20:06)
[2019-07-29] MEDS: methylPREDNISolone Sod Succinate 125 MG/2 ML INJ IV SCH (20:07)
[2019-07-29] MEDS: INSULIN LISPRO 100 UNIT/ML SUB-Q SCH ×2 (20:18→22:47)
[2019-07-29] MEDS: IPRATROPIUM/ALBUTEROL SULFATE 3 ML AMPUL.NEB IH SCH (21:01)
[2019-07-29] MEDS ORDERED: INSULIN LISPRO 100 UNIT/ML SUB-Q SCH (22:00)
--- NOTE | 2019-07-29 22:03 | Consultation ---
History of Present Illness Consult date: 07/29/19 Reason for consult: dyspnea, cough, asthma, pneumonia History of present illness: PULMONARY AND CRITICAL CARE CONSULTATION DR. ROSAS THANK YOU FOR ASKING US TO PARTICIPATE IN THE CARE OF THIS PATIENT. 63-year-old -[place] female presents to the emergency department via EMS from home with complaint of a 3 day history of progressively worsening shortness of breath. The patient has a past medical history of CHF, COPD, diabetes, HIV, hypertension, CHF, previous DVT/PE, bipolar disorder and schizophrenia. She says she has been using her albuterol inhaler without any relief. She got 5 mg of albuterol in route with EMS. She denies having a cutting inspector or marble chip terrazzo worker per she does have a primary care physician but cannot currently remember the name. No recent travel or sick contacts at home. The patient is not currently anticoagulated from her history of DVT/PE but does have a IVC filter in place. Patient denies smoking, alcohol or drug abuse. 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 Patient allergic to tetracycline and Motrin and shellfish. Not . Children 1. Patient having diffuse bilateral wheezing and rhonchi. Patient says coughing up dark sputum. Patient also complaining nasal congestion. Patient has history of asthma. Says getting asthma attacks often. Chest xray reported hazy right basilar opacity. O2 saturation 98% on room air. Patients K+ 3. KCL supplemented in the emergency room. Past History Past Medical History: COPD, heart failure, hypertension Medications and Allergies Allergies Allergy/AdvReac Type Severity Reaction Status Date / Time shellfish derived Allergy Severe Shortness Verified 02/05/19 16:34 of Breath ibuprofen [From Motrin] Allergy Mild Shortness Verified 02/05/19 16:34 of Breath tetracycline Allergy Shortness Verified 10/28/18 13:56 of Breath Home Medications Medication Instructions Recorded Confirmed Last Taken Type amLODIPine 5 mg PO QDAY #30 tablet 07/29/17 07/29/19 07/28/19 Rx Furosemide [Lasix TAB] 40 mg PO QDAY 03/23/18 07/29/19 07/28/19 History Genvoya Tablet 1 tab PO DAILY 03/23/18 07/29/19 07/28/19 History Albuterol Sulfate [Ventolin Hfa] 2 puff IH Q4-6H PRN #1 hfa.aer.ad 09/04/18 07/29/19 07/29/19 Rx QUEtiapine [SEROquel] 200 mg PO QHS #30 tablet 09/04/18 07/29/19 07/28/19 Rx Insulin NPH/Regular [NovoLIN 70/30] 30 unit SUB-Q BIDDIAB 30 Days 10/31/18 07/29/19 07/28/19 Rx units Active Meds: Active Medications Acetaminophen (Tylenol) 650 mg PO Q4H PRN PRN Reason: Pain MILD(1-3)/Fever >100.5/MOYER Albuterol (Proventil) 2.5 mg IH Q4H PRN PRN Reason: Shortness Of Breath Albuterol/Ipratropium (Duoneb *Not For Prn Use*) 1 ampul IH QIDRT [facility] Last Admin: 07/29/19 21:01 Dose: Not Given Documented by: Amlodipine Besylate (Amlodipine) 5 mg PO QDAY [facility] Last Admin: 07/29/19 20:06 Dose: 5 mg Documented by: Benzonatate (Tessalon Perles) 100 mg PO Q8HR [facility] Last Admin: 07/29/19 16:20 Dose: 100 mg Documented by: Furosemide (Lasix) 40 mg PO QDAY [facility] Last Admin: 07/29/19 20:06 Dose: 40 mg Documented by: Hydromorphone HCl (Dilaudid) 0.5 mg IV Q3H PRN PRN Reason: Pain , Severe (7-10) Levofloxacin/Dextrose (Levaquin 750mg/150ml) 750 mg in 150 mls @ 100 mls/hr IV Q24H [facility]; Protocol Last Admin: 07/29/19 20:06 Dose: 100 mls/hr Documented by: Insulin Human Isoph/Insulin Regular (Humulin 70/30) 30 unit SUB-Q BIDDIAB [facility] Last Admin: 07/29/19 18:25 Dose: 30 unit Documented by: Insulin Human Lispro (Humalog) [facility]; Protocol Last Admin: 07/29/19 20:18 Dose: 8 unit Documented by: Methylprednisolone Sodium Succinate (Solu-Medrol) 80 mg IV Q8H [facility] Last Admin: 07/29/19 20:07 Dose: 80 mg Documented by: Miscellaneous Medication (Genvoya Tablet) 1 tab PO DAILY [facility] Last Admin: 07/29/19 18:27 Dose: 1 tab Documented by: Ondansetron HCl (Zofran) 4 mg IV Q8H PRN PRN Reason: Nausea And Vomiting Oxycodone/Acetaminophen (Percocet 5/325) 1 tab PO Q6H PRN PRN Reason: Pain, Moderate (4-6) Quetiapine Fumarate (Seroquel) 200 mg PO QHS [facility] Sodium Chloride (Sodium Chloride Flush Syringe 10 Ml) 10 ml IV BID [facility] Sodium Chloride (Sodium Chloride Flush Syringe 10 Ml) 10 ml IV PRN PRN PRN Reason: LINE FLUSH Review of Systems All systems: negative Physical Examination Vital signs: Vital Signs Pulse Ox 99 07/29/19 10:24 General appearance: alert, appears uncomfortable, other (Moderate respiratory distress.) Eyes: non-icteric ENT: oropharynx moist Neck: supple, no JVD Ascultation: Bilateral: wheezes, rhonchi Cardiovascular: regular rate and rhythm Gastrointestinal: normoactive bowel sounds, soft, non-tender Integumentary: normal Extremities: no cyanosis, no edema Musculoskeletal: no deformities Gait: other (Can not assess at this time.) normal mental status, non-focal exam, pupils equal and round, CN II-XII normal anxious Results - Laboratory Findings CBC and BMP: 07/29/19 11:26 07/29/19 11:26 ABG POC ABG pH 7.431 (7.35-7.45) 07/29/19 13:29 POC ABG pCO2 42.8 (35-45) 07/29/19 13:29 POC ABG pO2 76 (80-105) L 07/29/19 13:29 POC ABG HCO3 28.4 (22-26 mml/L) 07/29/19 13:29 POC ABG Total CO2 30 (23-27mmol/L) 07/29/19 13:29 POC ABG O2 Sat 95 07/29/19 13:29 PT/INR, D-dimer PT 13.8 Sec. (12.2-14.9) 07/29/19 11:12 INR 1.07 (0.87-1.13) 07/29/19 11:12 Abnormal lab findings: Abnormal Labs 07/29/19 07/29/19 07/29/19 11:26 11:26 11:26 WBC 3.9 L RBC 3.40 L MCV 106 H MCH 36 H MCHC 35 H Lymph % (Auto) 42.4 H [place] % (Auto) 9.8 H Seg Neutrophils # 1.7 L POC ABG pO2 Potassium 3.0 L Creatinine 0.5 L Glucose 227 H POC Glucose Hemoglobin A1c 9.0 H ALT 6 L 07/29/19 07/29/19 07/29/19 13:29 17:40 19:56 WBC RBC MCV MCH MCHC Lymph % (Auto) [place] % (Auto) Seg Neutrophils # POC ABG pO2 76 L Potassium Creatinine Glucose POC Glucose 466 H 404 H Hemoglobin A1c ALT - Diagnostic Findings Chest x-ray: report reviewed (Minimal right basilar air space disease.), image reviewed Assessment and Plan 63-year-old -[place] female presents to the emergency department via EMS from home with complaint of a 3 day history of progressively worsening shortness of breath. The patient has a past medical history of CHF, COPD, diabetes, HIV, hypertension, CHF, previous DVT/PE, bipolar disorder and schizophrenia. She says she has been using her albuterol inhaler without any relief. She got 5 mg of albuterol in route with EMS. She denies having a cutting inspector or marble chip terrazzo worker per she does have a primary care physician but cannot currently remember the name. No recent travel or sick contacts at home. The patient is not currently anticoagulated from her history of DVT/PE but does have a IVC filter in place. Patient denies smoking, alcohol or drug abuse. 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 Patient allergic to tetracycline and Motrin and shellfish. Not . Children 1. Patient having diffuse bilateral wheezing and rhonchi. Patient says coughing up dark sputum. Patient also complaining nasal congestion. Patient has history of asthma. Says getting asthma attacks often. Chest xray reported hazy right basilar opacity. O2 saturation 98% on room air. Patients K+ 3. KCL supplemented in the emergency room. - Patient Problems (1) Acute asthma exacerbation Current Visit: No Status: Acute Plan to address problem: 2 2 litres via nasal canula. Albuterol/atrovent aerosol treatments q 6 hours. Continue I/V solumedrol Continue I/V Levaquin. Recommend DVT and GI prophylaxis. (2) Acute respiratory failure with hypoxia Current Visit: Yes Status: Acute Plan to address problem: O2 2 litres via nasal canula. Albuterol/atrovent aerosol treatments q 6 hours. Continue I/V solumedrol Continue I/V Levaquin. Recommend DVT and GI prophylaxis. (3) Right lower lobe pneumonia Current Visit: Yes Status: Acute Plan to address problem: Patient is on I/V levaquin. (4) AIDS Current Visit: No Status: Acute Plan to address problem: Recommend to consult infectious diseases. (5) HTN (hypertension) Current Visit: No Status: Acute Qualifiers: Hypertension type: essential hypertension Qualified Code(s): I10 - Essential (primary) hypertension Plan to address problem: Management as per primary care. (6) IDDM (insulin dependent diabetes mellitus) Current Visit: No Status: Acute Plan to address problem: Management as per primary care. (7) Morbid obesity with BMI of 40.0-44.9, adult Current Visit: No Status: Acute Plan to address problem: Recommend to loose weight. Diet and exercise. recommend sleep study as out patient. (8) Seizure disorder Current Visit: No Status: Acute Plan to address problem: Management as per primary care and neurology.
[2019-07-29] MEDS: QUEtiapine 200 MG TAB PO SCH (22:48)
[2019-07-29] MEDS: ONDANSETRON 4 MG/2 ML INJ IV PRN (22:58)
[2019-07-30] MEDS: methylPREDNISolone Sod Succinate 125 MG/2 ML INJ IV SCH ×3 (02:59→19:31)
[2019-07-30] MEDS: BENZONATATE 100 MG CAP PO SCH ×3 (05:21→22:10)
[2019-07-30] MEDS: oxyCODONE /ACETAMINOPHEN 5-325MG TAB PO PRN ×2 (05:25→19:31)
[2019-07-30 05:41] LABS: Hematocrit 37.6 % (30.3-42.9); Hemoglobin 12.9 gm/dl (10.1-14.3); Mean Corpuscular HGB Conc 34 % (30-34); Mean Corpuscular Volume 106 fl (79-97); Platelet Count 187 K/mm3 (140-440); Red Blood Count 3.54 M/mm3 (3.65-5.03); Red Cell Distribution Width 13.8 % (13.2-15.2)
[2019-07-30 06:05] LABS: Alanine Aminotransferase 6 units/L (7-56); BUN/Creatinine Ratio 32; Blood Urea Nitrogen 19 mg/dL (7-17); Calcium 9.7 mg/dL (8.4-10.2); Hemolysis Index 0
[2019-07-30] MEDS: INSULIN LISPRO 100 UNIT/ML SUB-Q SCH ×6 (07:30→22:12)
[2019-07-30 07:44] LABS: Basophils % (Manual) 0 % (0.0-1.8); Eosinophils % (Manual) 0 % (0.0-4.3); Platelet Estimate Consistent w Auto; Total Cells Counted 100
--- NOTE | 2019-07-30 07:48 | Progress Note ---
Assessment and Plan Assessment and plan: 63-year-old -[place]ien female with history of seizures COPD HIV insulin- dependent diabetes and bipolar disorder comes in for increasing shortness of breath of 3 days' duration. Cough productive of mucoid sputum -Diagnosis Bacterial pneumonia, right lower lobe, most likely gram-positive Acute respiratory failure with hypoxia Acute exacerbation of COPD HIV on meds Hypertension Insulin-dependent diabetes, uncontrolled a1c 9 Hypokalemia Plan continue antibiotics, continue oxygen supplements Continue duo nebs, continue steroids, pulmonology consults continue rest of home meds Continue insulin sliding scale, change 70/30 to lantus and lispro DVT prophylaxis with Lovenox Hospitalist Physical - Constitutional Vitals: Temp Pulse Resp BP Pulse Ox 98.8 F 90 18 128/84 94 07/30/19 04:51 07/30/19 04:51 07/30/19 06:25 07/30/19 04:51 07/30/19 04:51 General appearance: Present: severe distress, well-nourished Results - Labs CBC & Chem 7: 07/30/19 04:39 07/30/19 04:39 Labs: Laboratory Last Values WBC 1.9 K/mm3 (4.5-11.0) L* 07/30/19 04:39 RBC 3.54 M/mm3 (3.65-5.03) L 07/30/19 04:39 Hgb 12.9 gm/dl (10.1-14.3) 07/30/19 04:39 Hct 37.6 % (30.3-42.9) 07/30/19 04:39 MCV 106 fl (79-97) H 07/30/19 04:39 MCH 37 pg (28-32) H 07/30/19 04:39 MCHC 34 % (30-34) 07/30/19 04:39 RDW 13.8 % (13.2-15.2) 07/30/19 04:39 Plt Count 187 K/mm3 (140-440) 07/30/19 04:39 Lymph % (Auto) 42.4 % (13.4-35.0) H 07/29/19 11:26 [place] % (Auto) 9.8 % (0.0-7.3) H 07/29/19 11:26 Eos % (Auto) 2.0 % (0.0-4.3) 07/29/19 11:26 Baso % (Auto) 0.4 % (0.0-1.8) 07/29/19 11:26 Lymph # 1.6 K/mm3 (1.2-5.4) 07/29/19 11:26 [place] # 0.4 K/mm3 (0.0-0.8) 07/29/19 11: Eos # 0.1 K/mm3 (0.0-0.4) 07/29/19 11:26 Baso # 0.0 K/mm3 (0.0-0.1) 07/29/19 11:26 Add Manual Diff Complete 07/30/19 04:39 Total Counted 100 07/30/19 04:39 Seg Neutrophils % 45.4 % (40.0-70.0) 07/29/19 11:26 Seg Neuts % (Manual) 54.0 % (40.0-70.0) 07/30/19 04:39 Band Neutrophils % 0 % 07/30/19 04:39 Lymphocytes % (Manual) 45.0 % (13.4-35.0) H 07/30/19 04:39 Reactive Lymphs % (Man) 0 % 07/30/19 04:39 Monocytes % (Manual) 1.0 % (0.0-7.3) 07/30/19 04:39 Eosinophils % (Manual) 0 % (0.0-4.3) 07/30/19 04:39 Basophils % (Manual) 0 % (0.0-1.8) 07/30/19 04:39 Metamyelocytes % 0 % 07/30/19 04:39 Myelocytes % 0 % 07/30/19 04:39 Promyelocytes % 0 % 07/30/19 04:39 Blast Cells % 0 % 07/30/19 04:39 Nucleated RBC % Not Reportable 07/30/19 04:39 Seg Neutrophils # 1.7 K/mm3 (1.8-7.7) L 07/29/19 11:26 Seg Neutrophils # Man 1.0 K/mm3 (1.8-7.7) L 07/30/19 04:39 Band Neutrophils # 0.0 K/mm3 07/30/19 04:39 Lymphocytes # (Manual) 0.9 K/mm3 (1.2-5.4) L 07/30/19 04:39 Abs React Lymphs (Man) 0.0 K/mm3 07/30/19 04:39 Monocytes # (Manual) 0.0 K/mm3 (0.0-0.8) 07/30/19 04:39 Eosinophils # (Manual) 0.0 K/mm3 (0.0-0.4) 07/30/19 04:39 Basophils # (Manual) 0.0 K/mm3 (0.0-0.1) 07/30/19 04:39 Metamyelocytes # 0.0 K/mm3 07/30/19 04:39 Myelocytes # 0.0 K/mm3 07/30/19 04:39 Promyelocytes # 0.0 K/mm3 07/30/19 04:39 Blast Cells # 0.0 K/mm3 07/30/19 04:39 WBC Morphology Not Reportable 07/30/19 04:39 Hypersegmented Neuts Not Reportable 07/30/19 04:39 Hyposegmented Neuts Not Reportable 07/30/19 04:39 Hypogranular Neuts Not Reportable 07/30/19 04:39 Smudge Cells Not Reportable 07/30/19 04:39 Toxic Granulation Not Reportable 07/30/19 04:39 Toxic Vacuolation Not Reportable 07/30/19 04:39 Dohle Bodies Not Reportable 07/30/19 04:39 Pelger-Huet Anomaly Not Reportable 07/30/19 04:39 Susan Rods Not Reportable 07/30/19 04:39 Platelet Estimate Consistent w auto 07/30/19 04:39 Clumped Platelets Not Reportable 07/30/19 04:39 Plt Clumps, EDTA Not Reportable 07/30/19 04:39 Large Platelets Not Reportable 07/30/19 04:39 Giant Platelets Not Reportable 07/30/19 04:39 Platelet Satelliting Not Reportable 07/30/19 04:39 Plt Morphology Comment Not Reportable 07/30/19 04:39 RBC Morphology Not Reportable 07/30/19 04:39 Dimorphic RBCs Not Reportable 07/30/19 04:39 Polychromasia Not Reportable 07/30/19 04:39 Hypochromasia Not Reportable 07/30/19 04:39 Poikilocytosis Not Reportable 07/30/19 04:39 Anisocytosis Not Reportable 07/30/19 04:39 Microcytosis Not Reportable 07/30/19 04:39 Macrocytosis Not Reportable 07/30/19 04:39 Spherocytes Not Reportable 07/30/19 04:39 Pappenheimer Bodies Not Reportable 07/30/19 04:39 Sickle Cells Not Reportable 07/30/19 04:39 Target Cells Not Reportable 07/30/19 04:39 Tear Drop Cells Not Reportable 07/30/19 04:39 Ovalocytes Not Reportable 07/30/19 04:39 Helmet Cells Not Reportable 07/30/19 04:39 [place] Bodies Not Reportable 07/30/19 04:39 [place] Rings Not Reportable 07/30/19 04:39 [place] Cells Not Reportable 07/30/19 04:39 Bite Cells Not Reportable 07/30/19 04:39 Crenated Cell Not Reportable 07/30/19 04:39 Elliptocytes Not Reportable 07/30/19 04:39 Acanthocytes (Spur) Not Reportable 07/30/19 04:39 Rouleaux Not Reportable 07/30/19 04:39 Hemoglobin C Crystals Not Reportable 07/30/19 04:39 Schistocytes Not Reportable 07/30/19 04:39 Malaria parasites Not Reportable 07/30/19 04:39 [place] Bodies Not Reportable 07/30/19 04:39 Hem Pathologist Commnt No 07/30/19 04:39 PT 13.8 Sec. (12.2-14.9) 07/29/19 11:12 INR 1.07 (0.87-1.13) 07/29/19 11:12 APTT 27.6 Sec. (24.2-36.6) 07/29/19 11:12 POC ABG pH 7.431 (7.35-7.45) 07/29/19 13:29 POC ABG pCO2 42.8 (35-45) 07/29/19 13:29 POC ABG pO2 76 (80-105) L 07/29/19 13:29 POC ABG HCO3 28.4 (22-26 mml/L) 07/29/19 13:29 POC ABG Total CO2 30 (23-27mmol/L) 07/29/19 13:29 POC ABG O2 Sat 95 07/29/19 13:29 POC ABG Base Excess 4 ((-2) - (+3)mmol/L) 07/29/19 13:29 FiO2 21 % 07/29/19 13:29 Sodium 141 mmol/L (137-145) 07/30/19 04:39 Potassium 4.6 mmol/L (3.6-5.0) D 07/30/19 04:39 Chloride 106.0 mmol/L (98-107) 07/30/19 04:39 Carbon Dioxide 24 mmol/L (22-30) 07/30/19 04:39 Anion Gap 16 mmol/L 07/30/19 04:39 BUN 19 mg/dL (7-17) H 07/30/19 04:39 Creatinine 0.6 mg/dL (0.7-1.2) L 07/30/19 04:39 Estimated GFR > 60 ml/min 07/30/19 04:39 BUN/Creatinine Ratio 32 % 07/30/19 04:39 Glucose 236 mg/dL (65-100) H 07/30/19 04:39 POC Glucose 220 (70-105) H 07/29/19 22:37 Hemoglobin A1c 9.0 % (4-6) H 07/29/19 11:26 Calcium 9.7 mg/dL (8.4-10.2) 07/30/19 04:39 Total Bilirubin < 0.20 mg/dL (0.1-1.2) 07/30/19 04:39 AST 10 units/L (5-40) 07/30/19 04:39 ALT 6 units/L (7-56) L 07/30/19 04:39 Alkaline Phosphatase 129 units/L (35-129) 07/30/19 04:39 Troponin T < 0.010 ng/mL (0.00-0.029) 07/29/19 11:26 NT-Pro-B Natriuret Pep 79.54 pg/mL (0-900) 07/29/19 11:26 Total Protein 7.7 g/dL (6.3-8.2) 07/30/19 04:39 Albumin 4.0 g/dL (3.9-5) 07/30/19 04:39 Albumin/Globulin Ratio 1.1 % 07/30/19 04:39 Active Medications - Current Medications Current Medications: Generic Name Dose Route Start Last Admin Trade Name Freq PRN Reason Stop Dose Admin Acetaminophen 650 mg 07/29/19 17:39 Tylenol PO Q4H PRN Pain MILD(1-3)/Fever >100.5/MOYER Albuterol 2.5 mg 07/29/19 18:16 Proventil IH Q4H PRN Shortness Of Breath Albuterol/Ipratropium 1 ampul 07/29/19 20:00 07/29/19 21:01 Duoneb *Not For Prn Use* IH Not Given QIDRT SKYLER Amlodipine Besylate 5 mg 07/29/19 19:00 07/29/19 20:06 Amlodipine PO 5 mg QDAY SKYLER Administration Benzonatate 100 mg 07/29/19 15:00 07/30/19 05:21 Tessalon Perles PO 100 mg Q8HR SKYLER Administration Enoxaparin Sodium 40 mg 07/30/19 22:00 Enoxaparin SUB-Q QDAY@2200 [facility] Furosemide 40 mg 07/29/19 19:00 07/29/19 20:06 Lasix PO 40 mg QDAY SKYLER Administration Hydromorphone HCl 0.5 mg 07/29/19 16:54 Dilaudid IV Q3H PRN Pain , Severe (7-10) Levofloxacin/Dextrose 750 mg in 150 mls @ 100 mls/hr 07/29/19 19:00 07/29/19 20:06 Levaquin 750mg/150ml IV 100 mls/hr Q24H SKYLER Administration Protocol Insulin Glargine 60 units 07/30/19 22:00 Lantus SUB-Q QHS SKYLER Insulin Human Lispro 0 unit 07/29/19 19:55 07/29/19 22:47 Humalog SUB-Q 3 unit ACHS [facility] Administration Protocol Insulin Human Lispro 5 unit 07/30/19 11:30 Humalog SUB-Q AC SKYLER Metformin HCl 500 mg 07/30/19 08:00 Glucophage Xr PO QDDIAB SKYLER Methylprednisolone Sodium Succinate 80 mg 07/29/19 19:00 07/30/19 02:59 Solu-Medrol IV 80 mg Q8H SKYLER Administration Miscellaneous Medication 1 tab 07/30/19 08:00 Genvoya Tablet PO DAILY@0800 SKYLER Ondansetron HCl 4 mg 07/29/19 17:39 07/29/19 22:58 Zofran IV 4 mg Q8H PRN Administration Nausea And Vomiting Oxycodone/Acetaminophen 1 tab 07/29/19 16:54 07/30/19 05:25 Percocet 5/325 PO 1 tab Q6H PRN Administration Pain, Moderate (4-6) Quetiapine Fumarate 200 mg 07/29/19 22:00 07/29/19 22:48 Seroquel PO 200 mg QHS SKYLER Administration Sodium Chloride 10 ml 07/29/19 22:00 07/29/19 22:48 Sodium Chloride Flush Syringe 10 Ml IV 10 ml BID SKYLER Administration Sodium Chloride 10 ml 07/29/19 16:54 Sodium Chloride Flush Syringe 10 Ml IV PRN PRN LINE FLUSH
[2019-07-30] MEDS: IPRATROPIUM/ALBUTEROL SULFATE 3 ML AMPUL.NEB IH SCH ×3 (07:53→19:56)
[2019-07-30] MEDS: metFORMIN XR 500MG TAB PO SCH (08:00)
[2019-07-30] MEDS: GENVOYA PO SCH (08:00)
[2019-07-30] MEDS: FUROSEMIDE 40 MG TAB PO SCH (09:33)
[2019-07-30] MEDS: amLODIPine 5 MG TAB PO SCH (09:33)
--- NOTE | 2019-07-30 11:12 | Consultation ---
History of Present Illness - Reason for Consult Consult date: 07/30/19 sepsis/pneumonia Requesting physician: DIONNA CASTAÑEDA - History of Present Illness 63 y/o female with history of HIV currently on genvoya (does not remember her HIV doctor), CR5=025, /VL=54 on 09/12/2017, COPD, diabetes, bipolar disorder, history of rectovaginal fistula and recurrent UTIs, DVT s/p IVC filter, CHF, seizure admitted 07/29/2019 due to 3-day history of SOB and brownish productive cough. Denies sick contacts. Denies chest pain. Reports she is taking her ART however patient is not the best of the historians. EMS reported O2 sat in 80%. In the ED, temp 98.6, HR 108, R 14, BP 113/92, O2 99 . WBC 3.9. glucose 466. CXR with right basilar consolidation. Review of Systems: positive in bold print General: fever, chills, no malaise Cutaneous: rash, pruritus Head: headaches or injury Eyes: changes in vision, eye pain, double vision Ears: ear pain, ear discharge, ringing or hearing loss Nose: nose bleeding, stuffiness Mouth & throat: bleeding gums, horseness, no dental problems, or swollen glands Neck: no pain, node enlargement/lumps, tyroid enlargement or tenderness Respiratory: SOB, cough, VIDAL, wheezing, sputum, hemoptysis, pleuritic chest pain Cardiovascular: chest pain, leg edema, cyanosis, VIDAL, orthopnea Musculoskeletal: edema Gastrointestinal: nausea, vomiting, hematemesis, diarrhea, constipation, melena, bright red blood in stools, fecal incontinence, jaundice Genitourinary/Reproductive: frequent urination, dysuria, hematuria, incontinence Neurogical: seizures, headaches, weakness, paresthesias, loss of speech or vision; memory loss, vertigo, tremors, numbness Psychiatric: stable mood; excessive anxiety, sadness or moodiness Past History Past Medical History: COPD, heart failure, hypertension Medications and Allergies Allergies Allergy/AdvReac Type Severity Reaction Status Date / Time shellfish derived Allergy Severe Shortness Verified 02/05/19 16:34 of Breath ibuprofen [From Motrin] Allergy Mild Shortness Verified 02/05/19 16:34 of Breath tetracycline Allergy Shortness Verified 10/28/18 13:56 of Breath Home Medications Medication Instructions Recorded Confirmed Last Taken Type amLODIPine 5 mg PO QDAY #30 tablet 07/29/17 07/29/19 07/28/19 Rx Furosemide [Lasix TAB] 40 mg PO QDAY 03/23/18 07/29/19 07/28/19 History Genvoya Tablet 1 tab PO DAILY 03/23/18 07/29/19 07/28/19 History Albuterol Sulfate [Ventolin Hfa] 2 puff IH Q4-6H PRN #1 hfa.aer.ad 09/04/18 07/29/19 07/29/19 Rx QUEtiapine [SEROquel] 200 mg PO QHS #30 tablet 09/04/18 07/29/19 07/28/19 Rx Insulin NPH/Regular [NovoLIN 70/30] 30 unit SUB-Q BIDDIAB 30 Days 10/31/18 07/29/19 07/28/19 Rx units Active Meds: Active Medications Acetaminophen (Tylenol) 650 mg PO Q4H PRN PRN Reason: Pain MILD(1-3)/Fever >100.5/MOYER Albuterol (Proventil) 2.5 mg IH Q4H PRN PRN Reason: Shortness Of Breath Albuterol/Ipratropium (Duoneb *Not For Prn Use*) 1 ampul IH QIDRT [facility] Last Admin: 07/30/19 07:53 Dose: 1 ampul Documented by: Amlodipine Besylate (Amlodipine) 5 mg PO QDAY [facility] Last Admin: 07/30/19 09:33 Dose: 5 mg Documented by: Benzonatate (Tessalon Perles) 100 mg PO Q8HR [facility] Last Admin: 07/30/19 05:21 Dose: 100 mg Documented by: Enoxaparin Sodium (Enoxaparin) 40 mg SUB-Q QDAY@2200 SKYLER Furosemide (Lasix) 40 mg PO QDAY [facility] Last Admin: 07/30/19 09:33 Dose: 40 mg Documented by: Hydromorphone HCl (Dilaudid) 0.5 mg IV Q3H PRN PRN Reason: Pain , Severe (7-10) Levofloxacin/Dextrose (Levaquin 750mg/150ml) 750 mg in 150 mls @ 100 mls/hr IV Q24H [facility]; Protocol Last Admin: 07/29/19 20:06 Dose: 100 mls/hr Documented by: Insulin Glargine (Lantus) 60 units SUB-Q QHS [facility] Insulin Human Lispro (Humalog) 0 unit SUB-Q ACHS [facility]; Protocol Last Admin: 07/30/19 07:30 Dose: 4 unit Documented by: Insulin Human Lispro (Humalog) 5 unit SUB-Q AC [facility] Metformin HCl (Glucophage Xr) 500 mg PO QDDIAB [facility] Last Admin: 07/30/19 08:00 Dose: 500 mg Documented by: Methylprednisolone Sodium Succinate (Solu-Medrol) 80 mg IV Q8H [facility] Last Admin: 07/30/19 02:59 Dose: 80 mg Documented by: Miscellaneous Medication (Genvoya Tablet) 1 tab PO DAILY@0800 [facility] Last Admin: 07/30/19 08:00 Dose: 1 tab Documented by: Ondansetron HCl (Zofran) 4 mg IV Q8H PRN PRN Reason: Nausea And Vomiting Last Admin: 07/29/19 22:58 Dose: 4 mg Documented by: Oxycodone/Acetaminophen (Percocet 5/325) 1 tab PO Q6H PRN PRN Reason: Pain, Moderate (4-6) Last Admin: 07/30/19 05:25 Dose: 1 tab Documented by: Quetiapine Fumarate (Seroquel) 200 mg PO QHS [facility] Last Admin: 07/29/19 22:48 Dose: 200 mg Documented by: Sodium Chloride (Sodium Chloride Flush Syringe 10 Ml) 10 ml IV BID [facility] Last Admin: 07/30/19 09:32 Dose: 10 ml Documented by: Sodium Chloride (Sodium Chloride Flush Syringe 10 Ml) 10 ml IV PRN PRN PRN Reason: LINE FLUSH Physical Examination - Physical Exam Narrative exam: General appearance: Alert in NAD Eyes: anicteric sclerae, moist conjunctivae; no lid-lag; PERRLA HENT: Atraumatic; oropharynx clear with moist mucous membranes and no mucosal ulcerations/no oral thrush; normal hard and soft palate. Lungs:distant bs CV: RRR no murmur Abdomen: Soft, non-tender; no masses or hepatosplenomegaly Extremities: no edema, no cyanosis Skin: No rash. Psych: Appropriate affect, alert and oriented to person, place and time. Neuro: alert and oriented x 3. Moving all extermities - Constitutional Vitals: Vital Signs Temp Pulse Resp BP Pulse Ox 98.8 F 90 18 128/84 94 07/30/19 04:51 07/30/19 08:51 07/30/19 08:51 07/30/19 04:51 07/30/19 08:52 Temperature -Last 24 Hours Temperature 98.8 F Temperature 98.6 F Temperature 98.3 F Temperature 97.6 F Temperature 97.6 F Results - Labs CBC & Chem 7: 07/30/19 04:39 07/30/19 04:39 Labs: Abnormal lab results 07/29/19 07/29/19 07/29/19 Range/Units 11:26 11:26 11:26 WBC 3.9 L (4.5-11.0) K/mm3 RBC 3.40 L (3.65-5.03) M/mm3 MCV 106 H (79-97) fl MCH 36 H (28-32) pg MCHC 35 H (30-34) % Lymph % (Auto) 42.4 H (13.4-35.0) % [place] % (Auto) 9.8 H (0.0-7.3) % Lymphocytes % (Manual) (13.4-35.0) % Seg Neutrophils # 1.7 L (1.8-7.7) K/mm3 Seg Neutrophils # Man (1.8-7.7) K/mm3 Lymphocytes # (Manual) (1.2-5.4) K/mm3 POC ABG pO2 (80-105) Potassium 3.0 L (3.6-5.0) mmol/L BUN (7-17) mg/dL Creatinine 0.5 L (0.7-1.2) mg/dL Glucose 227 H (65-100) mg/dL POC Glucose (70-105) Hemoglobin A1c 9.0 H (4-6) % ALT 6 L (7-56) units/L 07/29/19 07/29/19 07/29/19 Range/Units 13:29 17:40 19:56 WBC (4.5-11.0) K/mm3 RBC (3.65-5.03) M/mm3 MCV (79-97) fl MCH (28-32) pg MCHC (30-34) % Lymph % (Auto) (13.4-35.0) % [place] % (Auto) (0.0-7.3) % Lymphocytes % (Manual) (13.4-35.0) % Seg Neutrophils # (1.8-7.7) K/mm3 Seg Neutrophils # Man (1.8-7.7) K/mm3 Lymphocytes # (Manual) (1.2-5.4) K/mm3 POC ABG pO2 76 L (80-105) Potassium (3.6-5.0) mmol/L BUN (7-17) mg/dL Creatinine (0.7-1.2) mg/dL Glucose (65-100) mg/dL POC Glucose 466 H 404 H (70-105) Hemoglobin A1c (4-6) % ALT (7-56) units/L 07/29/19 07/29/19 07/30/19 Range/Units 22:07 22:37 04:39 WBC 1.9 L* (4.5-11.0) K/mm3 RBC 3.54 L (3.65-5.03) M/mm3 MCV 106 H (79-97) fl MCH 37 H (28-32) pg MCHC (30-34) % Lymph % (Auto) (13.4-35.0) % [place] % (Auto) (0.0-7.3) % Lymphocytes % (Manual) 45.0 H (13.4-35.0) % Seg Neutrophils # (1.8-7.7) K/mm3 Seg Neutrophils # Man 1.0 L (1.8-7.7) K/mm3 Lymphocytes # (Manual) 0.9 L (1.2-5.4) K/mm3 POC ABG pO2 (80-105) Potassium (3.6-5.0) mmol/L BUN (7-17) mg/dL Creatinine (0.7-1.2) mg/dL Glucose (65-100) mg/dL POC Glucose 280 H 220 H (70-105) Hemoglobin A1c (4-6) % ALT (7-56) units/L 07/30/19 07/30/19 Range/Units 04:39 08:16 WBC (4.5-11.0) K/mm3 RBC (3.65-5.03) M/mm3 MCV (79-97) fl MCH (28-32) pg MCHC (30-34) % Lymph % (Auto) (13.4-35.0) % [place] % (Auto) (0.0-7.3) % Lymphocytes % (Manual) (13.4-35.0) % Seg Neutrophils # (1.8-7.7) K/mm3 Seg Neutrophils # Man (1.8-7.7) K/mm3 Lymphocytes # (Manual) (1.2-5.4) K/mm3 POC ABG pO2 (80-105) Potassium (3.6-5.0) mmol/L BUN 19 H (7-17) mg/dL Creatinine 0.6 L (0.7-1.2) mg/dL Glucose 236 H (65-100) mg/dL POC Glucose 262 H (70-105) Hemoglobin A1c (4-6) % ALT 6 L (7-56) units/L Assessment and Plan Cultures: none Assessment: 63 y/o female with history of HIV currently on genvoya (does not remember her HIV doctor), AQ0=025, /VL=54 on 09/12/2017, COPD, diabetes, bipolar disorder, history of rectovaginal fistula and recurrent UTIs, DVT s/p IVC filter, CHF, seizure admitted 07/29/2019 due to 3-day history of SOB and brownish productive cough: 1) Sepsis: present on admission with tachycardia, neutropenia; source ?pneumonia. UA was not collected as well as blood cultures. 2) RLL pneumonia with COPD exacerbation vs CAP vs opportunistic less likely. CXR with right basilar consolidation. 3) Acute hypoxemic resp failure 4) Diabetes: uncontrolled Recommendations: blood culture, UA and urine culture continue levaquin for now check influenza antigen and PCR check urine strep urine ag / legionella / chlamydia add tamiflu until flu is r/o check CD4/VL Will follow. Carlee Cast MD Infectious Diseases [employer] [facility] ([facility] M [phone] O [phone]
[2019-07-30] MEDS: ONDANSETRON 4 MG/2 ML INJ IV PRN ×2 (12:20→22:11)
--- NOTE | 2019-07-30 19:32 | Progress Note ---
Assessment and Plan Patient alert, awake. Resting on room air. Still complaining shortness of breath. O2 saturation on room air 98%. No acute respiratory distress. Patient afebrile and has neutropenia. - Patient Problems (1) Acute asthma exacerbation Current Visit: No Status: Acute Plan to address problem: 2 2 litres via nasal canula. Albuterol/atrovent aerosol treatments q 6 hours. Continue I/V solumedrol Continue I/V Levaquin. Recommend DVT and GI prophylaxis. (2) Acute respiratory failure with hypoxia Current Visit: Yes Status: Acute Plan to address problem: O2 2 litres via nasal canula. Albuterol/atrovent aerosol treatments q 6 hours. Continue I/V solumedrol Continue I/V Levaquin. Recommend DVT and GI prophylaxis. (3) Right lower lobe pneumonia Current Visit: Yes Status: Acute Plan to address problem: Patient is on I/V levaquin. (4) AIDS Current Visit: No Status: Acute Plan to address problem: Recommend to consult infectious diseases. (5) HTN (hypertension) Current Visit: No Status: Acute Qualifiers: Hypertension type: essential hypertension Qualified Code(s): I10 - Essential (primary) hypertension Plan to address problem: Management as per primary care. (6) IDDM (insulin dependent diabetes mellitus) Current Visit: No Status: Acute Plan to address problem: Management as per primary care. (7) Morbid obesity with BMI of 40.0-44.9, adult Current Visit: No Status: Acute Plan to address problem: Recommend to loose weight. Diet and exercise. recommend sleep study as out patient. (8) Seizure disorder Current Visit: No Status: Acute Plan to address problem: Management as per primary care and neurology. (9) Neutropenia Current Visit: Yes Status: Acute Plan to address problem: Patients wbc count 1.9 000. Recommend to consult hematology. Subjective Date of service: 07/30/19 Interval history: Patient alert, awake. Resting on room air. Still complaining shortness of breath. O2 saturation on room air 98%. No acute respiratory distress. Patient afebrile and has neutropenia. Objective Vital Signs - 12hr 07/30/19 07/30/19 07/30/19 08:51 08:52 12:16 Temperature 98.4 F Pulse Rate 81 Pulse Rate [ 90 Throughout] Respiratory 22 Rate Respiratory 18 Rate [ Throughout] Blood Pressure 89/52 O2 Sat by Pulse 94 96 Oximetry 07/30/19 07/30/19 07/30/19 14:00 14:01 17:05 Temperature 98.5 F Pulse Rate 90 Pulse Rate [ 81 Throughout] Respiratory 20 Rate Respiratory 18 Rate [ Throughout] Blood Pressure 88/48 O2 Sat by Pulse 96 97 Oximetry Constitutional: no acute distress, alert Eyes: non-icteric ENT: oropharynx moist Neck: supple, no JVD Ascultation: Bilateral: wheezes, rhonchi Cardiovascular: regular rate and rhythm Gastrointestinal: normoactive bowel sounds, soft, non-tender Integumentary: normal Extremities: no cyanosis, no edema Neurologic: normal mental status, non-focal exam, pupils equal and round, CN II- XII normal Psychiatric: anxious CBC and BMP: 07/30/19 04:39 07/30/19 04:39 ABG, PT/INR, D-dimer: ABG POC ABG pH 7.431 (7.35-7.45) 07/29/19 13:29 POC ABG pCO2 42.8 (35-45) 07/29/19 13:29 POC ABG pO2 76 (80-105) L 07/29/19 13:29 POC ABG HCO3 28.4 (22-26 mml/L) 07/29/19 13:29 POC ABG Total CO2 30 (23-27mmol/L) 07/29/19 13:29 POC ABG O2 Sat 95 07/29/19 13:29 PT/INR, D-dimer PT 13.8 Sec. (12.2-14.9) 07/29/19 11:12 INR 1.07 (0.87-1.13) 07/29/19 11:12 Abnormal lab findings: Abnormal Labs 07/29/19 07/29/19 07/29/19 11:26 11:26 11:26 WBC 3.9 L RBC 3.40 L MCV 106 H MCH 36 H MCHC 35 H Lymph % (Auto) 42.4 H [place] % (Auto) 9.8 H Lymphocytes % (Manual) Seg Neutrophils # 1.7 L Seg Neutrophils # Man Lymphocytes # (Manual) POC ABG pO2 Potassium 3.0 L BUN Creatinine 0.5 L Glucose 227 H POC Glucose Hemoglobin A1c 9.0 H ALT 6 L 1207/29/19 07/29/19 13:29 17:40 19:56 WBC RBC MCV MCH MCHC Lymph % (Auto) [place] % (Auto) Lymphocytes % (Manual) Seg Neutrophils # Seg Neutrophils # Man Lymphocytes # (Manual) POC ABG pO2 76 L Potassium BUN Creatinine Glucose POC Glucose 466 H 404 H Hemoglobin A1c ALT 07/29/19 07/29/19 07/30/19 22:07 22:37 04:39 WBC 1.9 L* RBC 3.54 L MCV 106 H MCH 37 H MCHC Lymph % (Auto) [place] % (Auto) Lymphocytes % (Manual) 45.0 H Seg Neutrophils # Seg Neutrophils # Man 1.0 L Lymphocytes # (Manual) 0.9 L POC ABG pO2 Potassium BUN Creatinine Glucose POC Glucose 280 H 220 H Hemoglobin A1c ALT 07/30/19 07/30/19 07/30/19 04:39 08:16 11:25 WBC RBC MCV MCH MCHC Lymph % (Auto) [place] % (Auto) Lymphocytes % (Manual) Seg Neutrophils # Seg Neutrophils # Man Lymphocytes # (Manual) POC ABG pO2 Potassium BUN 19 H Creatinine 0.6 L Glucose 236 H POC Glucose 262 H 294 H Hemoglobin A1c ALT 6 L 07/30/19 16:58 WBC RBC MCV MCH MCHC Lymph % (Auto) [place] % (Auto) Lymphocytes % (Manual) Seg Neutrophils # Seg Neutrophils # Man Lymphocytes # (Manual) POC ABG pO2 Potassium BUN Creatinine Glucose POC Glucose 308 H Hemoglobin A1c ALT
[2019-07-30 19:41] LABS: Bilirubin,Urine NEG (Negative); Blood,Urine SM (Negative); Color,Urine Straw (Yellow); Protein,Urine <15 mg/dL mg/dL (Negative); Urobilinogen,Urine < 2.0 mg/dL (<2.0)
[2019-07-30] MEDS ORDERED: INSULIN GLARGINE 100 UNITS/ML SUB-Q SCH (22:00)
[2019-07-30] MEDS: OSELTAMIVIR 75 MG CAP PO SCH (22:10)
[2019-07-30] MEDS: QUEtiapine 200 MG TAB PO SCH (22:10)
[2019-07-30] MEDS: ENOXAPARIN 40 MG/0.4 ML INJ SUB-Q SCH (22:11)
[2019-07-31] MEDS: methylPREDNISolone Sod Succinate 125 MG/2 ML INJ IV SCH ×3 (03:25→18:37)
[2019-07-31] MEDS: BENZONATATE 100 MG CAP PO SCH ×3 (05:40→22:44)
[2019-07-31 06:03] LABS: Basophils % (Auto) 0.1 % (0.0-1.8); Hematocrit 35.7 % (30.3-42.9); Hemoglobin 12.2 gm/dl (10.1-14.3); Lymphocytes # (Auto) 0.9 K/mm3 (1.2-5.4); Lymphocytes % (Auto) 18.6 % (13.4-35.0); Mean Corpuscular HGB Conc 34 % (30-34); Mean Corpuscular Volume 107 fl (79-97); Monocytes # (Auto) 0.2 K/mm3 (0.0-0.8); Monocytes % (Auto) 3.2 % (0.0-7.3); Platelet Count 194 K/mm3 (140-440); Red Blood Count 3.34 M/mm3 (3.65-5.03); Red Cell Distribution Width 13.8 % (13.2-15.2)
[2019-07-31] MEDS: INSULIN LISPRO 100 UNIT/ML SUB-Q SCH ×7 (07:30→22:46)
[2019-07-31] MEDS: IPRATROPIUM/ALBUTEROL SULFATE 3 ML AMPUL.NEB IH SCH ×3 (08:14→19:25)
[2019-07-31] MEDS: ONDANSETRON 4 MG/2 ML INJ IV PRN ×2 (08:43→18:35)
[2019-07-31] MEDS: oxyCODONE /ACETAMINOPHEN 5-325MG TAB PO PRN ×2 (08:43→15:18)
[2019-07-31] MEDS: GENVOYA PO SCH (08:44)
[2019-07-31] MEDS: metFORMIN XR 500MG TAB PO SCH (08:44)
[2019-07-31] MEDS: OSELTAMIVIR 75 MG CAP PO SCH (08:44)
--- NOTE | 2019-07-31 11:11 | Progress Note ---
Assessment and Plan Assessment and plan: 63-year-old -[place] female with history of seizures COPD HIV insulin- dependent diabetes and bipolar disorder comes in for increasing shortness of breath of 3 days' duration. Cough productive of mucoid sputum -Diagnosis Bacterial pneumonia, right lower lobe, most likely gram-positive Acute respiratory failure with hypoxia Acute exacerbation of COPD HIV on meds Hypertension Insulin-dependent diabetes, uncontrolled a1c 9 Hypokalemia Plan continue antibiotics, continue oxygen supplements, id input appreciated Continue duo nebs, continue steroids, pulmonology consults continue rest of home meds Continue insulin sliding scale, cont lantus and lispro DVT prophylaxis with Lovenox Hospitalist Physical - Constitutional Vitals: Temp Pulse Resp BP Pulse Ox 98.1 F 96 H 20 108/71 100 07/31/19 04:41 07/31/19 08:31 07/31/19 08:31 07/31/19 04:41 07/31/19 08:16 General appearance: Present: severe distress, well-nourished Results - Labs CBC & Chem 7: 07/31/19 04:50 07/30/19 04:39 Labs: Laboratory Last Values WBC 5.0 K/mm3 (4.5-11.0) 07/31/19 04:50 RBC 3.34 M/mm3 (3.65-5.03) L 07/31/19 04:50 Hgb 12.2 gm/dl (10.1-14.3) 07/31/19 04:50 Hct 35.7 % (30.3-42.9) 07/31/19 04:50 MCV 107 fl (79-97) H 07/31/19 04:50 MCH 36 pg (28-32) H 07/31/19 04:50 MCHC 34 % (30-34) 07/31/19 04:50 RDW 13.8 % (13.2-15.2) 07/31/19 04:50 Plt Count 194 K/mm3 (140-440) 07/31/19 04:50 Lymph % (Auto) 18.6 % (13.4-35.0) 07/31/19 04:50 [place] % (Auto) 3.2 % (0.0-7.3) 07/31/19 04:50 Eos % (Auto) 0.0 % (0.0-4.3) 07/31/19 04:50 Baso % (Auto) 0.1 % (0.0-1.8) 07/31/19 04:50 Lymph # 0.9 K/mm3 (1.2-5.4) L 07/31/19 04:50 [place] # 0.2 K/mm3 (0.0-0.8) 07/31/19 04:50 Eos # 0.0 K/mm3 (0.0-0.4) 07/31/19 04:50 Baso # 0.0 K/mm3 (0.0-0.1) 07/31/19 04:50 Add Manual Diff Complete 07/30/19 04:39 Total Counted 100 07/30/19 04:39 Seg Neutrophils % 78.1 % (40.0-70.0) H 07/31/19 04:50 Seg Neuts % (Manual) 54.0 % (40.0-70.0) 07/30/19 04:39 Band Neutrophils % 0 % 07/30/19 04:39 Lymphocytes % (Manual) 45.0 % (13.4-35.0) H 07/30/19 04:39 Reactive Lymphs % (Man) 0 % 07/30/19 04:39 Monocytes % (Manual) 1.0 % (0.0-7.3) 07/30/19 04:39 Eosinophils % (Manual) 0 % (0.0-4.3) 07/30/19 04:39 Basophils % (Manual) 0 % (0.0-1.8) 07/30/19 04:39 Metamyelocytes % 0 % 07/30/19 04:39 Myelocytes % 0 % 07/30/19 04:39 Promyelocytes % 0 % 07/30/19 04:39 Blast Cells % 0 % 07/30/19 04:39 Nucleated RBC % Not Reportable 07/30/19 04:39 Seg Neutrophils # 3.9 K/mm3 (1.8-7.7) 07/31/19 04:50 Seg Neutrophils # Man 1.0 K/mm3 (1.8-7.7) L 07/30/19 04:39 Band Neutrophils # 0.0 K/mm3 07/30/19 04:39 Lymphocytes # (Manual) 0.9 K/mm3 (1.2-5.4) L 07/30/19 04:39 Abs React Lymphs (Man) 0.0 K/mm3 07/30/19 04:39 Monocytes # (Manual) 0.0 K/mm3 (0.0-0.8) 07/30/19 04:39 Eosinophils # (Manual) 0.0 K/mm3 (0.0-0.4) 07/30/19 04:39 Basophils # (Manual) 0.0 K/mm3 (0.0-0.1) 07/30/19 04:39 Metamyelocytes # 0.0 K/mm3 07/30/19 04:39 Myelocytes # 0.0 K/mm3 07/30/19 04:39 Promyelocytes # 0.0 K/mm3 07/30/19 04:39 Blast Cells # 0.0 K/mm3 07/30/19 04:39 WBC Morphology Not Reportable 07/30/19 04:39 Hypersegmented Neuts Not Reportable 07/30/19 04:39 Hyposegmented Neuts Not Reportable 07/30/19 04:39 Hypogranular Neuts Not Reportable 07/30/19 04:39 Smudge Cells Not Reportable 07/30/19 04:39 Toxic Granulation Not Reportable 07/30/19 04:39 Toxic Vacuolation Not Reportable 07/30/19 04:39 Dohle Bodies Not Reportable 07/30/19 04:39 Pelger-Huet Anomaly Not Reportable 07/30/19 04:39 Susan Rods Not Reportable 07/30/19 04:39 Platelet Estimate Consistent w auto 07/30/19 04:39 Clumped Platelets Not Reportable 07/30/19 04:39 Plt Clumps, EDTA Not Reportable 07/30/19 04:39 Large Platelets Not Reportable 07/30/19 04:39 Giant Platelets Not Reportable 07/30/19 04:39 Platelet Satelliting Not Reportable 07/30/19 04:39 Plt Morphology Comment Not Reportable 07/30/19 04:39 RBC Morphology Not Reportable 07/30/19 04:39 Dimorphic RBCs Not Reportable 07/30/19 04:39 Polychromasia Not Reportable 07/30/19 04:39 Hypochromasia Not Reportable 07/30/19 04:39 Poikilocytosis Not Reportable 07/30/19 04:39 Anisocytosis Not Reportable 07/30/19 04:39 Microcytosis Not Reportable 07/30/19 04:39 Macrocytosis Not Reportable 07/30/19 04:39 Spherocytes Not Reportable 07/30/19 04:39 Pappenheimer Bodies Not Reportable 07/30/19 04:39 Sickle Cells Not Reportable 07/30/19 04:39 Target Cells Not Reportable 07/30/19 04:39 Tear Drop Cells Not Reportable 07/30/19 04:39 Ovalocytes Not Reportable 07/30/19 04:39 Helmet Cells Not Reportable 07/30/19 04:39 [place] Bodies Not Reportable 07/30/19 04:39 [place] Rings Not Reportable 07/30/19 04:39 [place] Cells Not Reportable 07/30/19 04:39 Bite Cells Not Reportable 07/30/19 04:39 Crenated Cell Not Reportable 07/30/19 04:39 Elliptocytes Not Reportable 07/30/19 04:39 Acanthocytes (Spur) Not Reportable 07/30/19 04:39 Rouleaux Not Reportable 07/30/19 04:39 Hemoglobin C Crystals Not Reportable 07/30/19 04:39 Schistocytes Not Reportable 07/30/19 04:39 Malaria parasites Not Reportable 07/30/19 04:39 Barry Bodies Not Reportable 07/30/19 04:39 Hem Pathologist Commnt No 07/30/19 04:39 PT 13.8 Sec. (12.2-14.9) 07/29/19 11:12 INR 1.07 (0.87-1.13) 07/29/19 11:12 APTT 27.6 Sec. (24.2-36.6) 07/29/19 11:12 POC ABG pH 7.431 (7.35-7.45) 07/29/19 13:29 POC ABG pCO2 42.8 (35-45) 07/29/19 13:29 POC ABG pO2 76 (80-105) L 07/29/19 13:29 POC ABG HCO3 28.4 (22-26 mml/L) 07/29/19 13:29 POC ABG Total CO2 30 (23-27mmol/L) 07/29/19 13:29 POC ABG O2 Sat 95 07/29/19 13:29 POC ABG Base Excess 4 ((-2) - (+3)mmol/L) 07/29/19 13:29 FiO2 21 % 07/29/19 13:29 Sodium 141 mmol/L (137-145) 07/30/19 04:39 Potassium 4.6 mmol/L (3.6-5.0) D 07/30/19 04:39 Chloride 106.0 mmol/L (98-107) 07/30/19 04:39 Carbon Dioxide 24 mmol/L (22-30) 07/30/19 04:39 Anion Gap 16 mmol/L 07/30/19 04:39 BUN 19 mg/dL (7-17) H 07/30/19 04:39 Creatinine 0.6 mg/dL (0.7-1.2) L 07/30/19 04:39 Estimated GFR > 60 ml/min 07/30/19 04:39 BUN/Creatinine Ratio 32 % 07/30/19 04:39 Glucose 236 mg/dL (65-100) H 07/30/19 04:39 POC Glucose 226 (70-105) H 07/31/19 07:59 Hemoglobin A1c 9.0 % (4-6) H 07/29/19 11:26 Calcium 9.7 mg/dL (8.4-10.2) 07/30/19 04:39 Total Bilirubin < 0.20 mg/dL (0.1-1.2) 07/30/19 04:39 AST 10 units/L (5-40) 07/30/19 04:39 ALT 6 units/L (7-56) L 07/30/19 04:39 Alkaline Phosphatase 129 units/L (35-129) 07/30/19 04:39 Troponin T < 0.010 ng/mL (0.00-0.029) 07/29/19 11:26 NT-Pro-B Natriuret Pep 79.54 pg/mL (0-900) 07/29/19 11:26 Total Protein 7.7 g/dL (6.3-8.2) 07/30/19 04:39 Albumin 4.0 g/dL (3.9-5) 07/30/19 04:39 Albumin/Globulin Ratio 1.1 % 07/30/19 04:39 Procalcitonin < 0.05 ng/mL (<0.15) 07/30/19 23:31 Urine Color Straw (Yellow) 07/30/19 19:25 Urine Turbidity Clear (Clear) 07/30/19 19:25 Urine pH 5.0 (5.0-7.0) 07/30/19 19:25 Ur Specific [place] 1.015 (1.003-1.030) 07/30/19 19:25 Urine Protein <15 mg/dl mg/dL (Negative) 07/30/19 19:25 Urine Glucose (UA) >=500 mg/dL (Negative) 07/30/19 19:25 Urine Ketones Neg mg/dL (Negative) 07/30/19 19:25 Urine Blood Sm (Negative) 07/30/19 19:25 Urine Nitrite Neg (Negative) 07/30/19 19:25 Urine Bilirubin Neg (Negative) 07/30/19 19:25 Urine Urobilinogen < 2.0 mg/dL (<2.0) 07/30/19 19:25 Ur Leukocyte Esterase Neg (Negative) 07/30/19 19:25 Urine WBC (Auto) 1.0 /HPF (0.0-6.0) 07/30/19 19:25 Urine RBC (Auto) 1.0 /HPF (0.0-6.0) 07/30/19 19:25 U Epithel Cells (Auto) 1.0 /HPF (0-13.0) 07/30/19 19:25 Influenza A (Rapid) Negative (Negative) 07/30/19 19:20 Influenza A (RT-PCR) Negative (Negative) 07/30/19 19:20 Influenza B (Rapid) Negative (Negative) 07/30/19 19:20 Influenza B (RT-PCR) Negative (Negative) 07/30/19 19:20 Active Medications - Current Medications Current Medications: Generic Name Dose Route Start Last Admin Trade Name Freq PRN Reason Stop Dose Admin Acetaminophen 650 mg 07/29/19 17:39 Tylenol PO Q4H PRN Pain MILD(1-3)/Fever >100.5/MOYER Albuterol 2.5 mg 07/29/19 18:16 Proventil IH Q4H PRN Shortness Of Breath Albuterol/Ipratropium 1 ampul 07/30/19 20:00 07/31/19 08:14 Duoneb *Not For Prn Use* IH 1 ampul TIDRT SKYLER Administration Benzonatate 100 mg 07/29/19 15:00 07/31/19 05:40 Tessalon Perles PO 100 mg Q8HR SYKLER Administration Enoxaparin Sodium 40 mg 07/30/19 22:00 07/30/19 22:11 Enoxaparin SUB-Q 40 mg QDAY@2200 SKYLER Administration Levofloxacin/Dextrose 750 mg in 150 mls @ 100 mls/hr 07/29/19 19:00 07/30/19 19:30 Levaquin 750mg/150ml IV 100 mls/hr Q24H SKYLER Administration Protocol Insulin Glargine 35 units 07/31/19 12:00 Lantus SUB-Q Q12HR SKYLER Insulin Human Lispro 0 unit 07/29/19 19:55 07/31/19 07:30 Humalog SUB-Q 8 unit ACHS [facility] Administration Protocol Insulin Human Lispro 5 unit 07/30/19 11:30 07/31/19 07:30 Humalog SUB-Q 5 unit AC SKYLER Administration Metformin HCl 500 mg 07/30/19 08:00 07/31/19 08:44 Glucophage Xr PO 500 mg QDDIAB [facility] Administration Methylprednisolone Sodium Succinate 80 mg 07/29/19 19:00 07/31/19 03:25 Solu-Medrol IV 80 mg Q8H SKYLER Administration Miscellaneous Medication 1 tab 07/30/19 08:00 07/31/19 08:44 Genvoya Tablet PO 1 tab DAILY@0800 SKYLER Administration Ondansetron HCl 4 mg 07/29/19 17:39 07/31/19 08:43 Zofran IV 4 mg Q8H PRN Administration Nausea And Vomiting Oseltamivir Phosphate 75 mg 07/30/19 22:00 07/31/19 08:44 Tamiflu PO 08/04/19 10:01 75 mg BID SKYLER Administration Oxycodone/Acetaminophen 1 tab 07/29/19 16:54 07/31/19 08:43 Percocet 5/325 PO 1 tab Q6H PRN Administration Pain, Moderate (4-6) Quetiapine Fumarate 200 mg 07/29/19 22:00 07/30/19 22:10 Seroquel PO 200 mg QHS SKYLER Administration Sodium Chloride 10 ml 07/29/19 22:00 07/31/19 08:46 Sodium Chloride Flush Syringe 10 Ml IV 10 ml BID SKYLER Administration Sodium Chloride 10 ml 07/29/19 16:54 Sodium Chloride Flush Syringe 10 Ml IV PRN PRN LINE FLUSH
[2019-07-31] MEDS: INSULIN GLARGINE 100 UNITS/ML SUB-Q SCH ×2 (11:30→22:47)
--- NOTE | 2019-07-31 12:55 | Progress Note ---
Assessment and Plan Cultures: Blood culture: no growth thus far Influenza PCR: negative Assessment: 63 y/o female with history of HIV currently on genvoya (does not remember her HIV doctor), QQ6=822, /VL=54 on 09/12/2017, COPD, diabetes, bipolar disorder, history of rectovaginal fistula and recurrent UTIs, DVT s/p IVC filter, CHF, seizure admitted 07/29/2019 due to 3-day history of SOB and brownish productive cough: 1) Sepsis: present on admission with tachycardia, neutropenia; source ?pneumonia. UA was not collected as well as blood cultures. 2) RLL pneumonia with COPD exacerbation vs CAP vs opportunistic less likely. CXR with right basilar consolidation. 3) Acute hypoxemic resp failure 4) Diabetes: uncontrolled Recommendations: discontinued Tamiflu given negative influenza PCR continue empiric levofloxacin sputum culture ordered continue Genvoya. Follow up HIV RNA PCR and CD4 count Ori Briones MD, FACP [facility] C: [phone] O: [phone] F: [phone] Subjective Date of service: 07/31/19 Interval history: No fever. Still with cough and shortness of breath. Abdominal pain with coughing. Bringing up yellowish/brownish sputum. Objective - Exam Narrative Exam: Physical Exam: Constitutional: Alert, cooperative. No acute distress Head, Ears, Nose: Normocephalic, atraumatic. External ears, nose normal Eyes: Conjunctivae/corneas clear. No icterus. No ptosis. Neck: Supple, no meningeal signs Cardiovascular: S1, S2 normal. Respiratory: diffuse b/l rhonchi + GI: Soft, non-tender; bowel sounds normal. No peritoneal signs Musculoskeletal: No pedal edema, no cyanosis. Skin: No rash or abscess Hem/Lymphatic: No palpable cervical or supraclavicular nodes. No lymphangitis Psych: Mood ok. Affect normal Neurological: Awake, alert, oriented. No gross abnormality - Constitutional Vitals: Vital Signs Temp Pulse Resp BP Pulse Ox 98.1 F 96 H 20 108/71 100 07/31/19 04:41 07/31/19 08:31 07/31/19 08:31 07/31/19 04:41 07/31/19 08:16 Temperature -Last 24 Hours Temperature 98.1 F Temperature 98.5 F Temperature 98.5 F - Labs CBC & Chem 7: 07/31/19 04:50 07/30/19 04:39 Labs: Abnormal lab results 07/30/19 07/30/19 07/31/19 Range/Units 16:58 21:44 04:50 RBC 3.34 L (3.65-5.03) M/mm3 MCV 107 H (79-97) fl MCH 36 H (28-32) pg Lymph # 0.9 L (1.2-5.4) K/mm3 Seg Neutrophils % 78.1 H (40.0-70.0) % POC Glucose 308 H 299 H (70-105) 07/31/19 07/31/19 Range/Units 07:59 12:26 RBC (3.65-5.03) M/mm3 MCV (79-97) fl MCH (28-32) pg Lymph # (1.2-5.4) K/mm3 Seg Neutrophils % (40.0-70.0) % POC Glucose 226 H 185 H (70-105)
--- NOTE | 2019-07-31 13:35 | Progress Note ---
Assessment and Plan Patient alert, awake. Resting on 2 litres O2. Still complaining shortness of breath. O2 saturation on room air 100%. No acute respiratory distress. Patient afebrile and has neutropenia. - Patient Problems (1) Acute asthma exacerbation Current Visit: No Status: Acute Plan to address problem: 2 2 litres via nasal canula. Albuterol/atrovent aerosol treatments q 6 hours. Continue I/V solumedrol Continue I/V Levaquin. Recommend DVT and GI prophylaxis. (2) Acute respiratory failure with hypoxia Current Visit: Yes Status: Acute Plan to address problem: O2 2 litres via nasal canula. Albuterol/atrovent aerosol treatments q 6 hours. Continue I/V solumedrol Continue I/V Levaquin. Recommend DVT and GI prophylaxis. (3) Right lower lobe pneumonia Current Visit: Yes Status: Acute Plan to address problem: Patient is on I/V levaquin. (4) AIDS Current Visit: No Status: Acute Plan to address problem: Recommend to consult infectious diseases. (5) HTN (hypertension) Current Visit: No Status: Acute Qualifiers: Hypertension type: essential hypertension Qualified Code(s): I10 - Essential (primary) hypertension Plan to address problem: Management as per primary care. (6) IDDM (insulin dependent diabetes mellitus) Current Visit: No Status: Acute Plan to address problem: Management as per primary care. (7) Morbid obesity with BMI of 40.0-44.9, adult Current Visit: No Status: Acute Plan to address problem: Recommend to loose weight. Diet and exercise. recommend sleep study as out patient. (8) Seizure disorder Current Visit: No Status: Acute Plan to address problem: Management as per primary care and neurology. Subjective Date of service: 07/31/19 Interval history: Patient alert, awake. Resting on 2 litres O2. Still complaining shortness of breath. O2 saturation on room air 100%. No acute respiratory distress. Patient afebrile and has neutropenia. Objective Vital Signs - 12hr 07/31/19 07/31/19 07/31/19 04:41 08:16 08:31 Temperature 98.1 F Pulse Rate 87 Pulse Rate [ 96 H Throughout] Respiratory 16 Rate Respiratory 20 Rate [ Throughout] Blood Pressure 108/71 O2 Sat by Pulse 98 100 Oximetry 07/31/19 11:54 Temperature 98.4 F Pulse Rate 85 Pulse Rate [ Throughout] Respiratory 18 Rate Respiratory Rate [ Throughout] Blood Pressure 113/72 O2 Sat by Pulse 97 Oximetry Constitutional: no acute distress, alert Eyes: non-icteric ENT: oropharynx moist Neck: supple, no JVD Ascultation: Bilateral: wheezes, rhonchi Cardiovascular: regular rate and rhythm Gastrointestinal: normoactive bowel sounds, soft, non-tender Integumentary: normal Extremities: no cyanosis, no edema Neurologic: normal mental status, non-focal exam, pupils equal and round, CN II- XII normal Psychiatric: anxious CBC and BMP: 07/31/19 04:50 07/30/19 04:39 ABG, PT/INR, D-dimer: ABG POC ABG pH 7.431 (7.35-7.45) 07/29/19 13:29 POC ABG pCO2 42.8 (35-45) 07/29/19 13:29 POC ABG pO2 76 (80-105) L 07/29/19 13:29 POC ABG HCO3 28.4 (22-26 mml/L) 07/29/19 13:29 POC ABG Total CO2 30 (23-27mmol/L) 07/29/19 13:29 POC ABG O2 Sat 95 07/29/19 13:29 PT/INR, D-dimer PT 13.8 Sec. (12.2-14.9) 07/29/19 11:12 INR 1.07 (0.87-1.13) 07/29/19 11:12 Abnormal lab findings: Abnormal Labs 07/29/19 07/29/19 07/29/19 11:26 11:26 11:26 WBC 3.9 L RBC 3.40 L MCV 106 H MCH 36 H MCHC 35 H Lymph % (Auto) 42.4 H [place] % (Auto) 9.8 H Lymph # Seg Neutrophils % Lymphocytes % (Manual) Seg Neutrophils # 1.7 L Seg Neutrophils # Man Lymphocytes # (Manual) POC ABG pO2 Potassium 3.0 L BUN Creatinine 0.5 L Glucose 227 H POC Glucose Hemoglobin A1c 9.0 H ALT 6 L 07/29/19 07/29/19 07/29/19 13:29 17:40 19:56 WBC RBC MCV MCH MCHC Lymph % (Auto) [place] % (Auto) Lymph # Seg Neutrophils % Lymphocytes % (Manual) Seg Neutrophils # Seg Neutrophils # Man Lymphocytes # (Manual) POC ABG pO2 76 L Potassium BUN Creatinine Glucose POC Glucose 466 H 404 H Hemoglobin A1c ALT 07/29/19 07/29/19 07/30/19 22:07 22:37 04:39 WBC 1.9 L* RBC 3.54 L MCV 106 H MCH 37 H MCHC Lymph % (Auto) [place] % (Auto) Lymph # Seg Neutrophils % Lymphocytes % (Manual) 45.0 H Seg Neutrophils # Seg Neutrophils # Man 1.0 L Lymphocytes # (Manual) 0.9 L POC ABG pO2 Potassium BUN Creatinine Glucose POC Glucose 280 H 220 H Hemoglobin A1c ALT 07/30/19 07/30/19 07/30/19 04:39 08:16 11:25 WBC RBC MCV MCH MCHC Lymph % (Auto) [place] % (Auto) Lymph # Seg Neutrophils % Lymphocytes % (Manual) Seg Neutrophils # Seg Neutrophils # Man Lymphocytes # (Manual) POC ABG pO2 Potassium BUN 19 H Creatinine 0.6 L Glucose 236 H POC Glucose 262 H 294 H Hemoglobin A1c ALT 6 L 07/30/19 07/30/19 07/31/19 16:58 21:44 04:50 WBC RBC 3.34 L MCV 107 H MCH 36 H MCHC Lymph % (Auto) [place] % (Auto) Lymph # 0.9 L Seg Neutrophils % 78.1 H Lymphocytes % (Manual) Seg Neutrophils # Seg Neutrophils # Man Lymphocytes # (Manual) POC ABG pO2 Potassium BUN Creatinine Glucose POC Glucose 308 H 299 H Hemoglobin A1c ALT 07/31/19 07/31/19 07:59 12:26 WBC RBC MCV MCH MCHC Lymph % (Auto) [place] % (Auto) Lymph # Seg Neutrophils % Lymphocytes % (Manual) Seg Neutrophils # Seg Neutrophils # Man Lymphocytes # (Manual) POC ABG pO2 Potassium BUN Creatinine Glucose POC Glucose 226 H 185 H Hemoglobin A1c ALT
[2019-07-31] MEDS: ENOXAPARIN 40 MG/0.4 ML INJ SUB-Q SCH (22:44)
[2019-07-31] MEDS: POLYETHYLENE GLYCOL 3350 17 GM POWDER PO SCH (22:44)
[2019-07-31] MEDS: QUEtiapine 200 MG TAB PO SCH (22:44)
[2019-08-01] MEDS: methylPREDNISolone Sod Succinate 125 MG/2 ML INJ IV SCH ×2 (02:20→13:35)
[2019-08-01] MEDS: BENZONATATE 100 MG CAP PO SCH (05:46)
[2019-08-01] MEDS: INSULIN LISPRO 100 UNIT/ML SUB-Q SCH ×7 (07:30→22:56)
[2019-08-01] MEDS: IPRATROPIUM/ALBUTEROL SULFATE 3 ML AMPUL.NEB IH SCH ×3 (08:33→19:20)
[2019-08-01] MEDS: INSULIN GLARGINE 100 UNITS/ML SUB-Q SCH ×2 (09:37→21:48)
[2019-08-01] MEDS: ONDANSETRON 4 MG/2 ML INJ IV PRN ×2 (09:38→18:02)
[2019-08-01] MEDS: POLYETHYLENE GLYCOL 3350 17 GM POWDER PO SCH (09:38)
[2019-08-01] MEDS: oxyCODONE /ACETAMINOPHEN 5-325MG TAB PO PRN ×2 (09:38→18:01)
[2019-08-01] MEDS: metFORMIN XR 500MG TAB PO SCH (09:38)
[2019-08-01] MEDS: GENVOYA PO SCH (09:40)
--- NOTE | 2019-08-01 11:45 | Progress Note ---
Assessment and Plan Assessment and plan: 63-year-old -[place] female with history of HIV, Asthma, insulin- dependent diabetes and bipolar disorder comes in for increasing shortness of breath and cough productive of mucoid sputum of 3 days duration. Sepsis 2/2 Bacterial pneumonia (RLL), most likely gram-positive org -On IV Levofloxacin and oral flagyl -blood cultures neg so far -f/u sputum culture result Acute respiratory failure with hypoxia -probably 2/2 above -cont 02 supplementation as needed Acute exacerbation of severe persistent asthma (pt denies hx of COPD) -probably 2/2 acute bronchitis -cont IV steroids, neb tx, mucinex and antibiotics -f/u sputum culture result HIV dx -cont genvoya -HIV viral load pending -ID pending Insulin-dependent DM2 with hyperglycemia -BG improved on current insulin regimen -monitor BG -a1c: 9 Hypokalemia -repleted and resolved Bipolar dx -stable -cont seroquel Disp: pt is still wheezing diffusely and continues to require IV steroids. D/c per clinical course History Interval history: Pt continues to complain of productive cough Hospitalist Physical - Constitutional Vitals: Temp Pulse Resp BP Pulse Ox 98.3 F 103 H 18 114/71 100 08/01/19 06:01 08/01/19 08:35 08/01/19 08:35 08/01/19 06:01 08/01/19 08:37 General appearance: Present: no acute distress, obese - EENT Eyes: Present: PERRL, EOM intact ENT: hearing intact, clear oral mucosa - Neck Neck: Present: supple - Respiratory Respiratory effort: normal Respiratory: bilateral: wheezing (diffuse) - Cardiovascular Rhythm: regular Heart Sounds: Present: S1 & S2 - Extremities Extremities: No edema - Abdominal General gastrointestinal: soft, non-tender, normal bowel sounds - Integumentary Integumentary: Present: warm, dry - Psychiatric Psychiatric: appropriate mood/affect - Neurologic Neurologic: CNII-XII intact Results - Labs CBC & Chem 7: 07/31/19 04:50 07/30/19 04:39 Labs: Laboratory Last Values WBC 5.0 K/mm3 (4.5-11.0) 07/31/19 04:50 RBC 3.34 M/mm3 (3.65-5.03) L 07/31/19 04:50 Hgb 12.2 gm/dl (10.1-14.3) 07/31/19 04:50 Hct 35.7 % (30.3-42.9) 07/31/19 04:50 MCV 107 fl (79-97) H 07/31/19 04:50 MCH 36 pg (28-32) H 07/31/19 04:50 MCHC 34 % (30-34) 07/31/19 04:50 RDW 13.8 % (13.2-15.2) 07/31/19 04:50 Plt Count 194 K/mm3 (140-440) 07/31/19 04:50 Lymph % (Auto) 18.6 % (13.4-35.0) 07/31/19 04:50 [place] % (Auto) 3.2 % (0.0-7.3) 07/31/19 04:50 Eos % (Auto) 0.0 % (0.0-4.3) 07/31/19 04:50 Baso % (Auto) 0.1 % (0.0-1.8) 07/31/19 04:50 Lymph # 0.9 K/mm3 (1.2-5.4) L 07/31/19 04:50 [place] # 0.2 K/mm3 (0.0-0.8) 07/31/19 04:50 Eos # 0.0 K/mm3 (0.0-0.4) 07/31/19 04:50 Baso # 0.0 K/mm3 (0.0-0.1) 07/31/19 04:50 Add Manual Diff Complete 07/30/19 04:39 Total Counted 100 07/30/19 04:39 Seg Neutrophils % 78.1 % (40.0-70.0) H 07/31/19 04:50 Seg Neuts % (Manual) 54.0 % (40.0-70.0) 07/30/19 04:39 Band Neutrophils % 0 % 07/30/19 04:39 Lymphocytes % (Manual) 45.0 % (13.4-35.0) H 07/30/19 04:39 Reactive Lymphs % (Man) 0 % 07/30/19 04:39 Monocytes % (Manual) 1.0 % (0.0-7.3) 07/30/19 04:39 Eosinophils % (Manual) 0 % (0.0-4.3) 07/30/19 04:39 Basophils % (Manual) 0 % (0.0-1.8) 07/30/19 04:39 Metamyelocytes % 0 % 07/30/19 04:39 Myelocytes % 0 % 07/30/19 04:39 Promyelocytes % 0 % 07/30/19 04:39 Blast Cells % 0 % 07/30/19 04:39 Nucleated RBC % Not Reportable 07/30/19 04:39 Seg Neutrophils # 3.9 K/mm3 (1.8-7.7) 07/31/19 04:50 Seg Neutrophils # Man 1.0 K/mm3 (1.8-7.7) L 07/30/19 04:39 Band Neutrophils # 0.0 K/mm3 07/30/19 04:39 Lymphocytes # (Manual) 0.9 K/mm3 (1.2-5.4) L 07/30/19 04:39 Abs React Lymphs (Man) 0.0 K/mm3 07/30/19 04:39 Monocytes # (Manual) 0.0 K/mm3 (0.0-0.8) 07/30/19 04:39 Eosinophils # (Manual) 0.0 K/mm3 (0.0-0.4) 07/30/19 04:39 Basophils # (Manual) 0.0 K/mm3 (0.0-0.1) 07/30/19 04:39 Metamyelocytes # 0.0 K/mm3 07/30/19 04:39 Myelocytes # 0.0 K/mm3 07/30/19 04:39 Promyelocytes # 0.0 K/mm3 07/30/19 04:39 Blast Cells # 0.0 K/mm3 07/30/19 04:39 WBC Morphology Not Reportable 07/30/19 04:39 Hypersegmented Neuts Not Reportable 07/30/19 04:39 Hyposegmented Neuts Not Reportable 07/30/19 04:39 Hypogranular Neuts Not Reportable 07/30/19 04:39 Smudge Cells Not Reportable 07/30/19 04:39 Toxic Granulation Not Reportable 07/30/19 04:39 Toxic Vacuolation Not Reportable 07/30/19 04:39 Dohle Bodies Not Reportable 07/30/19 04:39 Pelger-Huet Anomaly Not Reportable 07/30/19 04:39 Susan Rods Not Reportable 07/30/19 04:39 Platelet Estimate Consistent w auto 07/30/19 04:39 Clumped Platelets Not Reportable 07/30/19 04:39 Plt Clumps, EDTA Not Reportable 07/30/19 04:39 Large Platelets Not Reportable 07/30/19 04:39 Giant Platelets Not Reportable 07/30/19 04:39 Platelet Satelliting Not Reportable 07/30/19 04:39 Plt Morphology Comment Not Reportable 07/30/19 04:39 RBC Morphology Not Reportable 07/30/19 04:39 Dimorphic RBCs Not Reportable 07/30/19 04:39 Polychromasia Not Reportable 07/30/19 04:39 Hypochromasia Not Reportable 07/30/19 04:39 Poikilocytosis Not Reportable 07/30/19 04:39 Anisocytosis Not Reportable 07/30/19 04:39 Microcytosis Not Reportable 07/30/19 04:39 Macrocytosis Not Reportable 07/30/19 04:39 Spherocytes Not Reportable 07/30/19 04:39 Pappenheimer Bodies Not Reportable 07/30/19 04:39 Sickle Cells Not Reportable 07/30/19 04:39 Target Cells Not Reportable 07/30/19 04:39 Tear Drop Cells Not Reportable 07/30/19 04:39 Ovalocytes Not Reportable 07/30/19 04:39 Helmet Cells Not Reportable 07/30/19 04:39 Ochoa-[place] Bodies Not Reportable 07/30/19 04:39 Patterson Rings Not Reportable 07/30/19 04:39 Aileen Cells Not Reportable 07/30/19 04:39 Bite Cells Not Reportable 07/30/19 04:39 Crenated Cell Not Reportable 07/30/19 04:39 Elliptocytes Not Reportable 07/30/19 04:39 Acanthocytes (Spur) Not Reportable 07/30/19 04:39 Rouleaux Not Reportable 07/30/19 04:39 Hemoglobin C Crystals Not Reportable 07/30/19 04:39 Schistocytes Not Reportable 07/30/19 04:39 Malaria parasites Not Reportable 07/30/19 04:39 Barry Bodies Not Reportable 07/30/19 04:39 Hem Pathologist Commnt No 07/30/19 04:39 PT 13.8 Sec. (12.2-14.9) 07/29/19 11:12 INR 1.07 (0.87-1.13) 07/29/19 11:12 APTT 27.6 Sec. (24.2-36.6) 07/29/19 11:12 POC ABG pH 7.431 (7.35-7.45) 07/29/19 13:29 POC ABG pCO2 42.8 (35-45) 07/29/19 13:29 POC ABG pO2 76 (80-105) L 07/29/19 13:29 POC ABG HCO3 28.4 (22-26 mml/L) 07/29/19 13:29 POC ABG Total CO2 30 (23-27mmol/L) 07/29/19 13:29 POC ABG O2 Sat 95 07/29/19 13:29 POC ABG Base Excess 4 ((-2) - (+3)mmol/L) 07/29/19 13:29 FiO2 21 % 07/29/19 13:29 Sodium 141 mmol/L (137-145) 07/30/19 04:39 Potassium 4.6 mmol/L (3.6-5.0) D 07/30/19 04:39 Chloride 106.0 mmol/L (98-107) 07/30/19 04:39 Carbon Dioxide 24 mmol/L (22-30) 07/30/19 04:39 Anion Gap 16 mmol/L 07/30/19 04:39 BUN 19 mg/dL (7-17) H 07/30/19 04:39 Creatinine 0.6 mg/dL (0.7-1.2) L 07/30/19 04:39 Estimated GFR > 60 ml/min 07/30/19 04:39 BUN/Creatinine Ratio 32 % 07/30/19 04:39 Glucose 236 mg/dL (65-100) H 07/30/19 04:39 POC Glucose 146 (70-105) H 08/01/19 08:12 Hemoglobin A1c 9.0 % (4-6) H 07/29/19 11:26 Calcium 9.7 mg/dL (8.4-10.2) 07/30/19 04:39 Total Bilirubin < 0.20 mg/dL (0.1-1.2) 07/30/19 04:39 AST 10 units/L (5-40) 07/30/19 04:39 ALT 6 units/L (7-56) L 07/30/19 04:39 Alkaline Phosphatase 129 units/L (35-129) 07/30/19 04:39 Troponin T < 0.010 ng/mL (0.00-0.029) 07/29/19 11:26 NT-Pro-B Natriuret Pep 79.54 pg/mL (0-900) 07/29/19 11:26 Total Protein 7.7 g/dL (6.3-8.2) 07/30/19 04:39 Albumin 4.0 g/dL (3.9-5) 07/30/19 04:39 Albumin/Globulin Ratio 1.1 % 07/30/19 04:39 Procalcitonin < 0.05 ng/mL (<0.15) 07/30/19 23:31 Urine Color Straw (Yellow) 07/30/19 19:25 Urine Turbidity Clear (Clear) 07/30/19 19:25 Urine pH 5.0 (5.0-7.0) 07/30/19 19:25 Ur Specific [place] 1.015 (1.003-1.030) 07/30/19 19:25 Urine Protein <15 mg/dl mg/dL (Negative) 07/30/19 19:25 Urine Glucose (UA) >=500 mg/dL (Negative) 07/30/19 19:25 Urine Ketones Neg mg/dL (Negative) 07/30/19 19:25 Urine Blood Sm (Negative) 07/30/19 19:25 Urine Nitrite Neg (Negative) 07/30/19 19:25 Urine Bilirubin Neg (Negative) 07/30/19 19:25 Urine Urobilinogen < 2.0 mg/dL (<2.0) 07/30/19 19:25 Ur Leukocyte Esterase Neg (Negative) 07/30/19 19:25 Urine WBC (Auto) 1.0 /HPF (0.0-6.0) 07/30/19 19:25 Urine RBC (Auto) 1.0 /HPF (0.0-6.0) 07/30/19 19:25 U Epithel Cells (Auto) 1.0 /HPF (0-13.0) 07/30/19 19:25 Influenza A (Rapid) Negative (Negative) 07/30/19 19:20 Influenza A (RT-PCR) Negative (Negative) 07/30/19 19:20 Influenza B (Rapid) Negative (Negative) 07/30/19 19:20 Influenza B (RT-PCR) Negative (Negative) 07/30/19 19:20 Active Medications - Current Medications Current Medications: Generic Name Dose Route Start Last Admin Trade Name Freq PRN Reason Stop Dose Admin Acetaminophen 650 mg 07/29/19 17:39 Tylenol PO Q4H PRN Pain MILD(1-3)/Fever >100.5/MOYER Albuterol 2.5 mg 07/29/19 18:16 Proventil IH Q4H PRN Shortness Of Breath Albuterol/Ipratropium 1 ampul 08/01/19 11:45 Duoneb *Not For Prn Use* IH Q6H [facility] Enoxaparin Sodium 40 mg 07/30/19 22:00 07/31/19 22:44 Enoxaparin SUB-Q 40 mg QDAY@2200 [facility] Administration Guaifenesin 600 mg 08/01/19 12:00 Mucinex Er PO BID [facility] Levofloxacin/Dextrose 750 mg in 150 mls @ 100 mls/hr 07/29/19 19:00 07/31/19 18:35 Levaquin 750mg/150ml IV 100 mls/hr Q24H SKYLER Administration Protocol Insulin Glargine 35 units 07/31/19 12:00 08/01/19 09:37 Lantus SUB-Q 35 units Q12HR SKYLER Administration Insulin Human Lispro 0 unit 07/29/19 19:55 08/01/19 07:30 Humalog SUB-Q Not Given ACHS [facility] Protocol Insulin Human Lispro 5 unit 07/30/19 11:30 08/01/19 07:30 Humalog SUB-Q 5 unit AC [facility] Administration Metformin HCl 500 mg 07/30/19 08:00 08/01/19 09:38 Glucophage Xr PO 500 mg QDDIAB SKYLER Administration Methylprednisolone Sodium Succinate 80 mg 07/29/19 19:00 08/01/19 02:20 Solu-Medrol IV 80 mg Q8H SKYLER Administration Miscellaneous Medication 1 tab 07/30/19 08:00 08/01/19 09:40 Genvoya Tablet PO 1 tab DAILY@0800 SKYLER Administration Ondansetron HCl 4 mg 07/29/19 17:39 08/01/19 09:38 Zofran IV 4 mg Q8H PRN Administration Nausea And Vomiting Oxycodone/Acetaminophen 1 tab 07/29/19 16:54 08/01/19 09:38 Percocet 5/325 PO 1 tab Q6H PRN Administration Pain, Moderate (4-6) Polyethylene Glycol 17 gm 07/31/19 20:00 08/01/19 09:38 Miralax 3350 PO 17 gm QDAY SKYLER Administration Pseudoephedrine/Acetam/Chlorphenir 10 ml 08/01/19 11:40 Robitussin Ac PO Q4H PRN Cough Quetiapine Fumarate 200 mg 07/29/19 22:00 07/31/19 22:44 Seroquel PO 200 mg QHS SKYLER Administration Sodium Chloride 10 ml 07/29/19 22:00 08/01/19 09:39 Sodium Chloride Flush Syringe 10 Ml IV 10 ml BID SKYLER Administration Sodium Chloride 10 ml 07/29/19 16:54 Sodium Chloride Flush Syringe 10 Ml IV PRN PRN LINE FLUSH
[2019-08-01] MEDS: guaiFENesin/CODEINE 100-10MG ORAL LIQD 5 ML PO PRN ×2 (13:34→18:05)
[2019-08-01] MEDS: guaiFENesin ER 600 MG TAB PO SCH ×2 (13:34→21:50)
--- NOTE | 2019-08-01 13:55 | Progress Note ---
Assessment and Plan Patient alert, awake. Not using her O2 as recommended. Still complaining shortness of breath. O2 saturation on room air 96%. No acute respiratory distress. Patient afebrile and has no leukocytosis. - Patient Problems (1) Acute asthma exacerbation Current Visit: No Status: Acute Plan to address problem: 2 2.5 litres via nasal canula. Albuterol/atrovent aerosol treatments q 6 hours. Continue I/V solumedrol Continue I/V Levaquin. Recommend DVT and GI prophylaxis. (2) Acute respiratory failure with hypoxia Current Visit: Yes Status: Acute Plan to address problem: O2 2.5 litres via nasal canula. Albuterol/atrovent aerosol treatments q 6 hours. Continue I/V solumedrol Continue I/V Levaquin. Recommend DVT and GI prophylaxis. (3) Right lower lobe pneumonia Current Visit: Yes Status: Acute Plan to address problem: Patient is on I/V levaquin. (4) AIDS Current Visit: Yes Status: Acute Plan to address problem: Recommend to consult infectious diseases. (5) HTN (hypertension) Current Visit: No Status: Acute Qualifiers: Hypertension type: essential hypertension Qualified Code(s): I10 - Essential (primary) hypertension Plan to address problem: Management as per primary care. (6) IDDM (insulin dependent diabetes mellitus) Current Visit: No Status: Acute Plan to address problem: Management as per primary care. (7) Morbid obesity with BMI of 40.0-44.9, adult Current Visit: No Status: Acute Plan to address problem: Recommend to loose weight. Diet and exercise. recommend sleep study as out patient. (8) Seizure disorder Current Visit: No Status: Acute Plan to address problem: Management as per primary care and neurology. Subjective Date of service: 08/01/19 Interval history: Patient alert, awake. Not using her O2 as recommended. Still complaining shortness of breath. O2 saturation on room air 96%. No acute respiratory distress. Patient afebrile and has no leukocytosis. Objective Vital Signs - 12hr 08/01/19 08/01/19 08/01/19 06:01 08:35 08:37 Temperature 98.3 F Pulse Rate 78 Pulse Rate [ 103 H Throughout] Respiratory 18 Rate Respiratory 18 Rate [ Throughout] Blood Pressure 114/71 O2 Sat by Pulse 97 100 Oximetry 08/01/19 08/01/19 13:40 13:41 Temperature 98.0 F Pulse Rate 90 Pulse Rate [ 93 H Throughout] Respiratory 18 Rate Respiratory 16 Rate [ Throughout] Blood Pressure 106/72 O2 Sat by Pulse 96 Oximetry Constitutional: no acute distress, alert Eyes: non-icteric ENT: oropharynx moist Neck: supple, no JVD Ascultation: Bilateral: wheezes, rhonchi Cardiovascular: regular rate and rhythm Gastrointestinal: normoactive bowel sounds, soft, non-tender Integumentary: normal Extremities: no cyanosis, no edema Neurologic: normal mental status, non-focal exam, pupils equal and round, CN II- XII normal Psychiatric: anxious CBC and BMP: 07/31/19 04:50 07/30/19 04:39 ABG, PT/INR, D-dimer: ABG POC ABG pH 7.431 (7.35-7.45) 07/29/19 13:29 POC ABG pCO2 42.8 (35-45) 07/29/19 13:29 POC ABG pO2 76 (80-105) L 07/29/19 13:29 POC ABG HCO3 28.4 (22-26 mml/L) 07/29/19 13:29 POC ABG Total CO2 30 (23-27mmol/L) 07/29/19 13:29 POC ABG O2 Sat 95 07/29/19 13:29 PT/INR, D-dimer PT 13.8 Sec. (12.2-14.9) 07/29/19 11:12 INR 1.07 (0.87-1.13) 07/29/19 11:12 Abnormal lab findings: Abnormal Labs 07/29/19 07/29/19 07/29/19 11:26 11:26 11:26 WBC 3.9 L RBC 3.40 L MCV 106 H MCH 36 H MCHC 35 H Lymph % (Auto) 42.4 H [place] % (Auto) 9.8 H Lymph # Seg Neutrophils % Lymphocytes % (Manual) Seg Neutrophils # 1.7 L Seg Neutrophils # Man Lymphocytes # (Manual) POC ABG pO2 Potassium 3.0 L BUN Creatinine 0.5 L Glucose 227 H POC Glucose Hemoglobin A1c 9.0 H ALT 6 L 07/29/19 07/29/19 07/29/19 13:29 17:40 19:56 WBC RBC MCV MCH MCHC Lymph % (Auto) [place] % (Auto) Lymph # Seg Neutrophils % Lymphocytes % (Manual) Seg Neutrophils # Seg Neutrophils # Man Lymphocytes # (Manual) POC ABG pO2 76 L Potassium BUN Creatinine Glucose POC Glucose 466 H 404 H Hemoglobin A1c ALT 07/29/19 07/29/19 07/30/19 22:07 22:37 04:39 WBC 1.9 L* RBC 3.54 L MCV 106 H MCH 37 H MCHC Lymph % (Auto) [place] % (Auto) Lymph # Seg Neutrophils % Lymphocytes % (Manual) 45.0 H Seg Neutrophils # Seg Neutrophils # Man 1.0 L Lymphocytes # (Manual) 0.9 L POC ABG pO2 Potassium BUN Creatinine Glucose POC Glucose 280 H 220 H Hemoglobin A1c ALT 07/30/19 07/30/19 07/30/19 04:39 08:16 11:25 WBC RBC MCV MCH MCHC Lymph % (Auto) [place] % (Auto) Lymph # Seg Neutrophils % Lymphocytes % (Manual) Seg Neutrophils # Seg Neutrophils # Man Lymphocytes # (Manual) POC ABG pO2 Potassium BUN 19 H Creatinine 0.6 L Glucose 236 H POC Glucose 262 H 294 H Hemoglobin A1c ALT 6 L 07/30/19 07/30/19 07/31/19 16:58 21:44 04:50 WBC RBC 3.34 L MCV 107 H MCH 36 H MCHC Lymph % (Auto) [place] % (Auto) Lymph # 0.9 L Seg Neutrophils % 78.1 H Lymphocytes % (Manual) Seg Neutrophils # Seg Neutrophils # Man Lymphocytes # (Manual) POC ABG pO2 Potassium BUN Creatinine Glucose POC Glucose 308 H 299 H Hemoglobin A1c ALT 07/31/19 07/31/19 07/31/19 07:59 12:26 17:05 WBC RBC MCV MCH MCHC Lymph % (Auto) [place] % (Auto) Lymph # Seg Neutrophils % Lymphocytes % (Manual) Seg Neutrophils # Seg Neutrophils # Man Lymphocytes # (Manual) POC ABG pO2 Potassium BUN Creatinine Glucose POC Glucose 226 H 185 H 196 H Hemoglobin A1c ALT 07/31/19 08/01/19 22:13 08:12 WBC RBC MCV MCH MCHC Lymph % (Auto) [place] % (Auto) Lymph # Seg Neutrophils % Lymphocytes % (Manual) Seg Neutrophils # Seg Neutrophils # Man Lymphocytes # (Manual) POC ABG pO2 Potassium BUN Creatinine Glucose POC Glucose 279 H 146 H Hemoglobin A1c ALT
--- NOTE | 2019-08-01 16:02 | Progress Note ---
Assessment and Plan Cultures: Blood culture: no growth thus far Influenza PCR: negative sputum culture: in process Assessment: 63 y/o female with history of HIV currently on genvoya (does not remember her HIV doctor), KA1=343, /VL=54 on 09/12/2017, COPD, diabetes, bipolar disorder, history of rectovaginal fistula and recurrent UTIs, DVT s/p IVC filter, CHF, seizure admitted 07/29/2019 due to 3-day history of SOB and brownish productive cough: 1) Sepsis: present on admission with tachycardia, neutropenia; source likely pneumonia. 2) RLL pneumonia with COPD exacerbation vs CAP vs opportunistic less likely. CXR with right basilar consolidation. 3) Acute hypoxemic resp failure: pulm following. 4) Diabetes: uncontrolled 5) HIV: on Genvoya. Reportedly compliant, so OI less likely. Follow up HIV PCR and CD4 count. Recommendations: continue empiric levofloxacin f/u sputum culture results continue Genvoya. Follow up HIV RNA PCR and CD4 count Ori Briones MD, FACP [facility] C: [phone] O: [phone] F: [phone] Subjective Date of service: 08/01/19 Interval history: No fever. Still coughing and wheezing, feeling short of breath. No vomiting or diarrhea. Objective - Exam Narrative Exam: Physical Exam: Constitutional: Alert, cooperative. No acute distress Head, Ears, Nose: Normocephalic, atraumatic. External ears, nose normal Eyes: Conjunctivae/corneas clear. No icterus. No ptosis. Neck: Supple, no meningeal signs Cardiovascular: S1, S2 normal. Respiratory: diffuse b/l rhonchi + GI: Soft, non-tender; bowel sounds normal. No peritoneal signs Musculoskeletal: No pedal edema, no cyanosis. Skin: No rash or abscess Hem/Lymphatic: No palpable cervical or supraclavicular nodes. No lymphangitis Psych: Mood ok. Affect normal Neurological: Awake, alert, oriented. No gross abnormality - Constitutional Vitals: Vital Signs Temp Pulse Resp BP Pulse Ox 98.0 F 90 18 106/72 96 08/01/19 13:41 08/01/19 13:41 08/01/19 13:41 08/01/19 13:41 08/01/19 13:41 Temperature -Last 24 Hours Temperature 98.0 F Temperature 98.3 F Temperature 98.2 F Temperature 98.2 F - Labs CBC & Chem 7: 07/31/19 04:50 07/30/19 04:39 Labs: Abnormal lab results 07/31/19 07/31/19 08/01/19 Range/Units 17:05 22:13 08:12 POC Glucose 196 H 279 H 146 H (70-105)
[2019-08-01] MEDS: QUEtiapine 200 MG TAB PO SCH (21:50)
[2019-08-01] MEDS: ENOXAPARIN 40 MG/0.4 ML INJ SUB-Q SCH (21:50)
[2019-08-02] MEDS: methylPREDNISolone Sod Succinate 125 MG/2 ML INJ IV SCH ×4 (00:43→20:27)
[2019-08-02] MEDS: IPRATROPIUM/ALBUTEROL SULFATE 3 ML AMPUL.NEB IH SCH ×4 (02:14→19:47)
[2019-08-02] MEDS: oxyCODONE /ACETAMINOPHEN 5-325MG TAB PO PRN ×2 (04:15→16:15)
[2019-08-02] MEDS: ONDANSETRON 4 MG/2 ML INJ IV PRN ×2 (04:15→16:15)
[2019-08-02] MEDS: guaiFENesin/CODEINE 100-10MG ORAL LIQD 5 ML PO PRN ×2 (05:29→12:43)
[2019-08-02 08:27] LABS: BUN/Creatinine Ratio 29; Blood Urea Nitrogen 20 mg/dL (7-17); Calcium 8.4 mg/dL (8.4-10.2); Hemolysis Index 34
[2019-08-02] MEDS: INSULIN LISPRO 100 UNIT/ML SUB-Q SCH ×7 (08:50→22:45)
[2019-08-02] MEDS: GENVOYA PO SCH (08:50)
[2019-08-02] MEDS: metFORMIN XR 500MG TAB PO SCH (08:51)
[2019-08-02] MEDS: guaiFENesin ER 600 MG TAB PO SCH ×2 (10:02→22:43)
[2019-08-02] MEDS: POLYETHYLENE GLYCOL 3350 17 GM POWDER PO SCH (10:02)
[2019-08-02] MEDS: INSULIN GLARGINE 100 UNITS/ML SUB-Q SCH ×2 (10:03→22:44)
--- NOTE | 2019-08-02 13:02 | Progress Note ---
Assessment and Plan - Patient Problems (1) Right lower lobe pneumonia Current Visit: Yes Status: Acute Plan to address problem: ID follow-up appreciated Right lower lobe infiltrate on x-ray IV Levaquin initiated to continue to continue Nebulize to continue Still wheezing (2) Acute respiratory failure with hypoxia Current Visit: Yes Status: Acute Plan to address problem: Patient is hypoxic initially and in respiratory distress initially The patient improved with nebulizer treatments and oxygen Nebulizer treatments, IV Solu-Medrol and IV Levaquin for now BiPAP and intubation if necessary (3) Acute exacerbation of chronic obstructive pulmonary disease (COPD) Current Visit: No Status: Acute Plan to address problem: Patient initiated on nebulizer treatments and IV steroids and IV Levaquin (4) HIV (human immunodeficiency virus infection) Current Visit: No Status: Chronic Qualifiers: HIV symptom status: asymptomatic Qualified Code(s): Z21 - Asymptomatic human immunodeficiency virus [HIV] infection status Plan to address problem: Continue Genvoya 1 tablet once a day (5) HTN (hypertension) Current Visit: No Status: Acute Qualifiers: Plan to address problem: Continue antihypertensives (6) IDDM (insulin dependent diabetes mellitus) Current Visit: No Status: Chronic Plan to address problem: Continue insulin 7030 twice a day and coverage (7) Hypokalemia Current Visit: Yes Status: Acute Plan to address problem: Supplemented (8) DVT prophylaxis Current Visit: No Status: Acute Plan to address problem: Heparin subcutaneous and GI prophylaxis Subjective Date of service: 08/02/19 Principal diagnosis: acute respiratory failure, right lower lobe pneumonia, HIV Interval history: Patient is still wheezing and has difficulty breathing.No fever or chills. Slightly better.Sli Objective - Constitutional Vitals: Vital Signs - 12hr 08/02/19 08/02/19 08/02/19 04:15 04:52 07:19 Temperature 98.2 F Pulse Rate 85 Pulse Rate [ Throughout] Respiratory 18 20 Rate Respiratory Rate [ Throughout] Blood Pressure 117/76 O2 Sat by Pulse 91 95 Oximetry 08/02/19 07:52 Temperature Pulse Rate Pulse Rate [ 98 H Throughout] Respiratory Rate Respiratory 18 Rate [ Throughout] Blood Pressure O2 Sat by Pulse Oximetry General appearance: Present: no acute distress, well-nourished - EENT Eyes: PERRL, EOM intact ENT: hearing intact, clear oral mucosa Ears: bilateral: normal - Neck Neck: supple, normal ROM - Respiratory Respiratory effort: normal Respiratory: bilateral: CTA, rhonchi, wheezing - Breasts Breasts: normal - Cardiovascular Rhythm: regular Heart Sounds: Present: S1 & S2. Absent: gallop, rub Extremities: no ischemia, pulses intact, No edema, normal color, Full ROM - Gastrointestinal General gastrointestinal: Present: soft, non-tender, non-distended, normal bowel sounds Rectal Exam: deferred - Genitourinary Female genitourinary: normal - Integumentary Integumentary: clear, warm, dry - Musculoskeletal Musculoskeletal: 1, strength equal bilaterally - Neurologic Neurologic: moves all extremities - Psychiatric Psychiatric: memory intact, appropriate mood/affect, intact judgment & insight - Allied health notes Allied health notes reviewed: nursing, case management - Labs CBC & Chem 7: 07/31/19 04:50 08/02/19 07:16 Labs: Abnormal lab results 08/01/19 08/01/19 08/01/19 Range/Units 16:31 17:35 20:51 BUN (7-17) mg/dL POC Glucose 44 L 173 H 203 H (70-105) 08/02/19 08/02/19 Range/Units 07:16 11:38 BUN 20 H (7-17) mg/dL POC Glucose 255 H (70-105)
[2019-08-02] MEDS ORDERED: VANCOMYCIN 2,000 MG in SODIUM CHLORIDE 0.9% 500 ML 500 ML IV ONE ×2 (13:43→15:30)
--- NOTE | 2019-08-02 13:49 | Progress Note ---
Assessment and Plan Patient alert, awake. Not using her O2 as recommended. Still complaining shortness of breath, but says its a little better than yesterday. O2 saturation on room air 86%. Strongly recommended to use her oxygen. Patient afebrile and has no leukocytosis. - Patient Problems (1) Acute asthma exacerbation Current Visit: No Status: Acute Plan to address problem: 2.5 litres via nasal canula. Albuterol/atrovent aerosol treatments q 6 hours. Continue I/V solumedrol Continue I/V Levaquin. Recommend DVT and GI prophylaxis. (2) Acute respiratory failure with hypoxia Current Visit: Yes Status: Acute Plan to address problem: O2 2.5 litres via nasal canula. Albuterol/atrovent aerosol treatments q 6 hours. Continue I/V solumedrol Continue I/V Levaquin. Recommend DVT and GI prophylaxis. (3) Right lower lobe pneumonia Current Visit: Yes Status: Acute Plan to address problem: Patient is on I/V vancomycin. (4) AIDS Current Visit: Yes Status: Acute Plan to address problem: Recommend to consult infectious diseases. (5) HTN (hypertension) Current Visit: No Status: Acute Qualifiers: Hypertension type: essential hypertension Qualified Code(s): I10 - Essential (primary) hypertension Plan to address problem: Management as per primary care. (6) IDDM (insulin dependent diabetes mellitus) Current Visit: No Status: Acute Plan to address problem: Management as per primary care. (7) Morbid obesity with BMI of 40.0-44.9, adult Current Visit: No Status: Acute Plan to address problem: Recommend to loose weight. Diet and exercise. recommend sleep study as out patient. (8) Seizure disorder Current Visit: No Status: Acute Plan to address problem: Management as per primary care and neurology. Subjective Date of service: 08/02/19 Principal diagnosis: acute respiratory failure, right lower lobe pneumonia, HIV Interval history: Patient alert, awake. Not using her O2 as recommended. Still complaining shortne ss of breath, but says its a little better than yesterday. O2 saturation on room air 86%. Strongly recommended to use her oxygen. Patient afebrile and has no leukocytosis. Objective Vital Signs - 12hr 08/02/19 08/02/19 08/02/19 04:15 04:52 07:19 Temperature 98.2 F Pulse Rate 85 Pulse Rate [ Throughout] Respiratory 18 20 Rate Respiratory Rate [ Throughout] Blood Pressure 117/76 O2 Sat by Pulse 91 95 Oximetry 08/02/19 07:52 Temperature Pulse Rate Pulse Rate [ 98 H Throughout] Respiratory Rate Respiratory 18 Rate [ Throughout] Blood Pressure O2 Sat by Pulse Oximetry Constitutional: no acute distress, alert Eyes: non-icteric ENT: oropharynx moist Neck: supple, no JVD Ascultation: Bilateral: wheezes, rhonchi Cardiovascular: regular rate and rhythm Gastrointestinal: normoactive bowel sounds, soft, non-tender Integumentary: normal Extremities: no cyanosis, no edema Neurologic: normal mental status, non-focal exam, pupils equal and round, CN II- XII normal Psychiatric: anxious CBC and BMP: 07/31/19 04:50 08/02/19 07:16 ABG, PT/INR, D-dimer: ABG POC ABG pH 7.431 (7.35-7.45) 07/29/19 13:29 POC ABG pCO2 42.8 (35-45) 07/29/19 13:29 POC ABG pO2 76 (80-105) L 07/29/19 13:29 POC ABG HCO3 28.4 (22-26 mml/L) 07/29/19 13:29 POC ABG Total CO2 30 (23-27mmol/L) 07/29/19 13:29 POC ABG O2 Sat 95 07/29/19 13:29 PT/INR, D-dimer PT 13.8 Sec. (12.2-14.9) 07/29/19 11:12 INR 1.07 (0.87-1.13) 07/29/19 11:12 Abnormal lab findings: Abnormal Labs 07/29/19 07/29/19 07/29/19 11:26 11:26 11:26 WBC 3.9 L RBC 3.40 L MCV 106 H MCH 36 H MCHC 35 H Lymph % (Auto) 42.4 H [place] % (Auto) 9.8 H Lymph # Seg Neutrophils % Lymphocytes % (Manual) Seg Neutrophils # 1.7 L Seg Neutrophils # Man Lymphocytes # (Manual) POC ABG pO2 Potassium 3.0 L BUN Creatinine 0.5 L Glucose 227 H POC Glucose Hemoglobin A1c 9.0 H ALT 6 L 1207/29/19 07/29/19 13:29 17:40 19:56 WBC RBC MCV MCH MCHC Lymph % (Auto) [place] % (Auto) Lymph # Seg Neutrophils % Lymphocytes % (Manual) Seg Neutrophils # Seg Neutrophils # Man Lymphocytes # (Manual) POC ABG pO2 76 L Potassium BUN Creatinine Glucose POC Glucose 466 H 404 H Hemoglobin A1c ALT 07/29/19 07/29/19 07/30/19 22:07 22:37 04:39 WBC 1.9 L* RBC 3.54 L MCV 106 H MCH 37 H MCHC Lymph % (Auto) [place] % (Auto) Lymph # Seg Neutrophils % Lymphocytes % (Manual) 45.0 H Seg Neutrophils # Seg Neutrophils # Man 1.0 L Lymphocytes # (Manual) 0.9 L POC ABG pO2 Potassium BUN Creatinine Glucose POC Glucose 280 H 220 H Hemoglobin A1c ALT 07/30/19 07/30/19 07/30/19 04:39 08:16 11:25 WBC RBC MCV MCH MCHC Lymph % (Auto) [place] % (Auto) Lymph # Seg Neutrophils % Lymphocytes % (Manual) Seg Neutrophils # Seg Neutrophils # Man Lymphocytes # (Manual) POC ABG pO2 Potassium BUN 19 H Creatinine 0.6 L Glucose 236 H POC Glucose 262 H 294 H Hemoglobin A1c ALT 6 L 07/30/19 07/30/19 07/31/19 16:58 21:44 04:50 WBC RBC 3.34 L MCV 107 H MCH 36 H MCHC Lymph % (Auto) [place] % (Auto) Lymph # 0.9 L Seg Neutrophils % 78.1 H Lymphocytes % (Manual) Seg Neutrophils # Seg Neutrophils # Man Lymphocytes # (Manual) POC ABG pO2 Potassium BUN Creatinine Glucose POC Glucose 308 H 299 H Hemoglobin A1c ALT 07/31/19 07/31/19 07/31/19 07:59 12:26 17:05 WBC RBC MCV MCH MCHC Lymph % (Auto) [place] % (Auto) Lymph # Seg Neutrophils % Lymphocytes % (Manual) Seg Neutrophils # Seg Neutrophils # Man Lymphocytes # (Manual) POC ABG pO2 Potassium BUN Creatinine Glucose POC Glucose 226 H 185 H 196 H Hemoglobin A1c ALT 07/31/19 08/01/19 08/01/19 22:13 08:12 16:31 WBC RBC MCV MCH MCHC Lymph % (Auto) [place] % (Auto) Lymph # Seg Neutrophils % Lymphocytes % (Manual) Seg Neutrophils # Seg Neutrophils # Man Lymphocytes # (Manual) POC ABG pO2 Potassium BUN Creatinine Glucose POC Glucose 279 H 146 H 44 L Hemoglobin A1c ALT 08/01/19 08/01/19 08/02/19 17:35 20:51 07:16 WBC RBC MCV MCH MCHC Lymph % (Auto) [place] % (Auto) Lymph # Seg Neutrophils % Lymphocytes % (Manual) Seg Neutrophils # Seg Neutrophils # Man Lymphocytes # (Manual) POC ABG pO2 Potassium BUN 20 H Creatinine Glucose POC Glucose 173 H 203 H Hemoglobin A1c ALT 08/02/19 11:38 WBC RBC MCV MCH MCHC Lymph % (Auto) [place] % (Auto) Lymph # Seg Neutrophils % Lymphocytes % (Manual) Seg Neutrophils # Seg Neutrophils # Man Lymphocytes # (Manual) POC ABG pO2 Potassium BUN Creatinine Glucose POC Glucose 255 H Hemoglobin A1c ALT
[2019-08-02] MEDS ORDERED: VANCOMYCIN PHARMACY TO DOSE IV SCH (14:00)
--- NOTE | 2019-08-02 14:09 | Progress Note ---
Assessment and Plan Cultures: Blood culture: no growth thus far Influenza PCR: negative sputum culture: Staph aureus Assessment: 63 y/o female with history of HIV currently on genvoya (does not remember her HIV doctor), EP2=420, /VL=54 on 09/12/2017, COPD, diabetes, bipolar disorder, history of rectovaginal fistula and recurrent UTIs, DVT s/p IVC filter, CHF, seizure admitted 07/29/2019 due to 3-day history of SOB and brownish productive cough: 1) Sepsis: present on admission with tachycardia, neutropenia; source likely pneumonia. 2) RLL pneumonia with COPD exacerbation vs CAP vs opportunistic less likely. CXR with right basilar consolidation. Sputum growing Staph aureus. 3) Acute hypoxemic resp failure: pulm following. 4) Diabetes: uncontrolled 5) HIV: on Genvoya. Reportedly compliant, so OI less likely. Follow up HIV PCR and CD4 count. Recommendations: discontinued Levofloxacin started IV Vancomycin for Staph aureus coverage (not a candidate for Linezolid since she is on Zoloft) f/u sputum culture results (MSSA v/s MRSA) continue Genvoya. Follow up HIV RNA PCR and CD4 count Ori Briones MD, FACP [facility] C: [phone] O: [phone] F: [phone] Subjective Date of service: 08/02/19 Principal diagnosis: acute respiratory failure, right lower lobe pneumonia, HIV Interval history: No fever. Still short of breath and coughing. Objective - Exam Narrative Exam: Physical Exam: Constitutional: Alert, cooperative. No acute distress Head, Ears, Nose: Normocephalic, atraumatic. External ears, nose normal Eyes: Conjunctivae/corneas clear. No icterus. No ptosis. Neck: Supple, no meningeal signs Cardiovascular: S1, S2 normal. Respiratory: diffuse b/l rhonchi + GI: Soft, non-tender; bowel sounds normal. No peritoneal signs Musculoskeletal: No pedal edema, no cyanosis. Skin: No rash or abscess Hem/Lymphatic: No palpable cervical or supraclavicular nodes. No lymphangitis Psych: Mood ok. Affect normal Neurological: Awake, alert, oriented. No gross abnormality - Constitutional Vitals: Vital Signs Temp Pulse Resp BP Pulse Ox 98.2 F 105 H 20 117/76 95 08/02/19 04:52 08/02/19 13:52 08/02/19 13:52 08/02/19 04:52 08/02/19 07:19 Temperature -Last 24 Hours Temperature 98.2 F Temperature 98.9 F Temperature 98.5 F - Labs CBC & Chem 7: 07/31/19 04:50 08/02/19 07:16 Labs: Abnormal lab results 08/01/19 08/01/19 08/01/19 Range/Units 16:31 17:35 20:51 BUN (7-17) mg/dL POC Glucose 44 L 173 H 203 H (70-105) 08/02/19 08/02/19 Range/Units 07:16 11:38 BUN 20 H (7-17) mg/dL POC Glucose 255 H (70-105)
[2019-08-02] MEDS: ENOXAPARIN 40 MG/0.4 ML INJ SUB-Q SCH (22:44)
[2019-08-02] MEDS: QUEtiapine 200 MG TAB PO SCH (22:44)
[2019-08-03] MEDS: methylPREDNISolone Sod Succinate 125 MG/2 ML INJ IV SCH ×3 (03:30→18:03)
[2019-08-03] MEDS: VANCOMYCIN 1,250 MG in SODIUM CHLORIDE 0.9% 250ML 250 ML IV SCH ×2 (05:50→18:03)
[2019-08-03] MEDS: IPRATROPIUM/ALBUTEROL SULFATE 3 ML AMPUL.NEB IH SCH ×4 (07:15→21:03)
[2019-08-03] MEDS: ONDANSETRON 4 MG/2 ML INJ IV PRN ×2 (08:34→16:52)
[2019-08-03] MEDS: oxyCODONE /ACETAMINOPHEN 5-325MG TAB PO PRN ×2 (08:34→16:52)
[2019-08-03] MEDS: guaiFENesin/CODEINE 100-10MG ORAL LIQD 5 ML PO PRN ×2 (08:34→21:53)
[2019-08-03] MEDS: INSULIN LISPRO 100 UNIT/ML SUB-Q SCH ×7 (08:34→21:56)
[2019-08-03] MEDS: INSULIN GLARGINE 100 UNITS/ML SUB-Q SCH ×2 (09:52→21:55)
[2019-08-03] MEDS: guaiFENesin ER 600 MG TAB PO SCH ×2 (09:53→21:54)
[2019-08-03] MEDS: POLYETHYLENE GLYCOL 3350 17 GM POWDER PO SCH (09:53)
[2019-08-03] MEDS: metFORMIN XR 500MG TAB PO SCH (09:53)
[2019-08-03] MEDS: GENVOYA PO SCH (09:53)
--- NOTE | 2019-08-03 11:23 | Progress Note ---
Assessment and Plan Assessment and plan: Sepsis. Etiology sec to pneumonia. RLL pneumonia. CXR with right basilar consolidation. Sputum growing Staph aureus. COPD exacerbation. Cont bronchodilators and nebulizers. Acute hypoxemic resp failure. Etiology secondary to above. Pulm following. Diabetes II, uncontrolled. Continue Accu-Cheks and sliding scale insulin. HIV. Continue on Genvoya. Follow up HIV PCR and CD4 count. History Interval history: 63 y/o female with history of HIV currently on genvoya (does not remember her HIV doctor), LK3=648, /VL=54 on 09/12/2017, COPD, diabetes, bipolar disorder, history of rectovaginal fistula and recurrent UTIs, DVT s/p IVC filter, CHF, seizure admitted 07/29/2019 due to 3-day history of SOB and brownish productive cough Hospitalist Physical - Constitutional Vitals: Temp Pulse Resp BP Pulse Ox 97.8 F 83 20 116/74 96 08/03/19 04:30 08/03/19 07:43 08/03/19 07:43 08/03/19 04:30 08/03/19 04:30 General appearance: Present: no acute distress, well-nourished - EENT Eyes: Present: PERRL, EOM intact ENT: hearing intact, clear oral mucosa, dentition normal - Neck Neck: Present: supple, normal ROM - Respiratory Respiratory effort: normal Respiratory: bilateral: diminished, rhonchi - Cardiovascular Rhythm: regular Heart Sounds: Present: S1 & S2. Absent: gallop, rub - Extremities Extremities: no ischemia, No edema, Full ROM - Abdominal General gastrointestinal: soft, non-tender, non-distended, normal bowel sounds - Integumentary Integumentary: Present: clear, warm, dry - Neurologic Neurologic: CNII-XII intact, moves all extremities Results - Labs CBC & Chem 7: 07/31/19 04:50 08/02/19 07:16 Labs: Laboratory Last Values WBC 5.0 K/mm3 (4.5-11.0) 07/31/19 04:50 RBC 3.34 M/mm3 (3.65-5.03) L 07/31/19 04:50 Hgb 12.2 gm/dl (10.1-14.3) 07/31/19 04:50 Hct 35.7 % (30.3-42.9) 07/31/19 04:50 MCV 107 fl (79-97) H 07/31/19 04:50 MCH 36 pg (28-32) H 07/31/19 04:50 MCHC 34 % (30-34) 07/31/19 04:50 RDW 13.8 % (13.2-15.2) 07/31/19 04:50 Plt Count 194 K/mm3 (140-440) 07/31/19 04:50 Lymph % (Auto) 18.6 % (13.4-35.0) 07/31/19 04:50 [place] % (Auto) 3.2 % (0.0-7.3) 07/31/19 04:50 Eos % (Auto) 0.0 % (0.0-4.3) 07/31/19 04:50 Baso % (Auto) 0.1 % (0.0-1.8) 07/31/19 04:50 Lymph # 0.9 K/mm3 (1.2-5.4) L 07/31/19 04:50 [place] # 0.2 K/mm3 (0.0-0.8) 07/31/19 04:50 Eos # 0.0 K/mm3 (0.0-0.4) 07/31/19 04:50 Baso # 0.0 K/mm3 (0.0-0.1) 07/31/19 04:50 Add Manual Diff Complete 07/30/19 04:39 Total Counted 100 07/30/19 04:39 Seg Neutrophils % 78.1 % (40.0-70.0) H 07/31/19 04:50 Seg Neuts % (Manual) 54.0 % (40.0-70.0) 07/30/19 04:39 Band Neutrophils % 0 % 07/30/19 04:39 Lymphocytes % (Manual) 45.0 % (13.4-35.0) H 07/30/19 04:39 Reactive Lymphs % (Man) 0 % 07/30/19 04:39 Monocytes % (Manual) 1.0 % (0.0-7.3) 07/30/19 04:39 Eosinophils % (Manual) 0 % (0.0-4.3) 07/30/19 04:39 Basophils % (Manual) 0 % (0.0-1.8) 07/30/19 04:39 Metamyelocytes % 0 % 07/30/19 04:39 Myelocytes % 0 % 07/30/19 04:39 Promyelocytes % 0 % 07/30/19 04:39 Blast Cells % 0 % 07/30/19 04:39 Nucleated RBC % Not Reportable 07/30/19 04:39 Seg Neutrophils # 3.9 K/mm3 (1.8-7.7) 07/31/19 04:50 Seg Neutrophils # Man 1.0 K/mm3 (1.8-7.7) L 07/30/19 04:39 Band Neutrophils # 0.0 K/mm3 07/30/19 04:39 Lymphocytes # (Manual) 0.9 K/mm3 (1.2-5.4) L 07/30/19 04:39 Abs React Lymphs (Man) 0.0 K/mm3 07/30/19 04:39 Monocytes # (Manual) 0.0 K/mm3 (0.0-0.8) 07/30/19 04:39 Eosinophils # (Manual) 0.0 K/mm3 (0.0-0.4) 07/30/19 04:39 Basophils # (Manual) 0.0 K/mm3 (0.0-0.1) 07/30/19 04:39 Metamyelocytes # 0.0 K/mm3 07/30/19 04:39 Myelocytes # 0.0 K/mm3 07/30/19 04:39 Promyelocytes # 0.0 K/mm3 07/30/19 04:39 Blast Cells # 0.0 K/mm3 07/30/19 04:39 WBC Morphology Not Reportable 07/30/19 04:39 Hypersegmented Neuts Not Reportable 07/30/19 04:39 Hyposegmented Neuts Not Reportable 07/30/19 04:39 Hypogranular Neuts Not Reportable 07/30/19 04:39 Smudge Cells Not Reportable 07/30/19 04:39 Toxic Granulation Not Reportable 07/30/19 04:39 Toxic Vacuolation Not Reportable 07/30/19 04:39 Dohle Bodies Not Reportable 07/30/19 04:39 Pelger-Huet Anomaly Not Reportable 07/30/19 04:39 Susan Rods Not Reportable 07/30/19 04:39 Platelet Estimate Consistent w auto 07/30/19 04:39 Clumped Platelets Not Reportable 07/30/19 04:39 Plt Clumps, EDTA Not Reportable 07/30/19 04:39 Large Platelets Not Reportable 07/30/19 04:39 Giant Platelets Not Reportable 07/30/19 04:39 Platelet Satelliting Not Reportable 07/30/19 04:39 Plt Morphology Comment Not Reportable 07/30/19 04:39 RBC Morphology Not Reportable 07/30/19 04:39 Dimorphic RBCs Not Reportable 07/30/19 04:39 Polychromasia Not Reportable 07/30/19 04:39 Hypochromasia Not Reportable 07/30/19 04:39 Poikilocytosis Not Reportable 07/30/19 04:39 Anisocytosis Not Reportable 07/30/19 04:39 Microcytosis Not Reportable 07/30/19 04:39 Macrocytosis Not Reportable 07/30/19 04:39 Spherocytes Not Reportable 07/30/19 04:39 Pappenheimer Bodies Not Reportable 07/30/19 04:39 Sickle Cells Not Reportable 07/30/19 04:39 Target Cells Not Reportable 07/30/19 04:39 Tear Drop Cells Not Reportable 07/30/19 04:39 Ovalocytes Not Reportable 07/30/19 04:39 Helmet Cells Not Reportable 07/30/19 04:39 [place] Bodies Not Reportable 07/30/19 04:39 [place] Rings Not Reportable 07/30/19 04:39 Aileen Cells Not Reportable 07/30/19 04:39 Bite Cells Not Reportable 07/30/19 04:39 Crenated Cell Not Reportable 07/30/19 04:39 Elliptocytes Not Reportable 07/30/19 04:39 Acanthocytes (Spur) Not Reportable 07/30/19 04:39 Rouleaux Not Reportable 07/30/19 04:39 Hemoglobin C Crystals Not Reportable 07/30/19 04:39 Schistocytes Not Reportable 07/30/19 04:39 Malaria parasites Not Reportable 07/30/19 04:39 Barry Bodies Not Reportable 07/30/19 04:39 Hem Pathologist Commnt No 07/30/19 04:39 PT 13.8 Sec. (12.2-14.9) 07/29/19 11:12 INR 1.07 (0.87-1.13) 07/29/19 11:12 APTT 27.6 Sec. (24.2-36.6) 07/29/19 11:12 POC ABG pH 7.431 (7.35-7.45) 07/29/19 13:29 POC ABG pCO2 42.8 (35-45) 07/29/19 13:29 POC ABG pO2 76 (80-105) L 07/29/19 13:29 POC ABG HCO3 28.4 (22-26 mml/L) 07/29/19 13:29 POC ABG Total CO2 30 (23-27mmol/L) 07/29/19 13:29 POC ABG O2 Sat 95 07/29/19 13:29 POC ABG Base Excess 4 ((-2) - (+3)mmol/L) 07/29/19 13:29 FiO2 21 % 07/29/19 13:29 Sodium 139 mmol/L (137-145) 08/02/19 07:16 Potassium 4.4 mmol/L (3.6-5.0) 08/02/19 07:16 Chloride 101.7 mmol/L (98-107) 08/02/19 07:16 Carbon Dioxide 23 mmol/L (22-30) 08/02/19 07:16 Anion Gap 19 mmol/L 08/02/19 07:16 BUN 20 mg/dL (7-17) H 08/02/19 07:16 Creatinine 0.7 mg/dL (0.7-1.2) 08/02/19 07:16 Estimated GFR > 60 ml/min 08/02/19 07:16 BUN/Creatinine Ratio 29 % 08/02/19 07:16 Glucose 85 mg/dL (65-100) 08/02/19 07:16 POC Glucose 160 (70-105) H 08/02/19 21:25 Hemoglobin A1c 9.0 % (4-6) H 07/29/19 11:26 Calcium 8.4 mg/dL (8.4-10.2) 08/02/19 07:16 Magnesium 2.30 mg/dL (1.7-2.3) 08/02/19 07:16 Total Bilirubin < 0.20 mg/dL (0.1-1.2) 07/30/19 04:39 AST 10 units/L (5-40) 07/30/19 04:39 ALT 6 units/L (7-56) L 07/30/19 04:39 Alkaline Phosphatase 129 units/L (35-129) 07/30/19 04:39 Troponin T < 0.010 ng/mL (0.00-0.029) 07/29/19 11:26 NT-Pro-B Natriuret Pep 79.54 pg/mL (0-900) 07/29/19 11:26 Total Protein 7.7 g/dL (6.3-8.2) 07/30/19 04:39 Albumin 4.0 g/dL (3.9-5) 07/30/19 04:39 Albumin/Globulin Ratio 1.1 % 07/30/19 04:39 Procalcitonin < 0.05 ng/mL (<0.15) 07/30/19 23:31 Urine Color Straw (Yellow) 07/30/19 19:25 Urine Turbidity Clear (Clear) 07/30/19 19:25 Urine pH 5.0 (5.0-7.0) 07/30/19 19:25 Ur Specific [place] 1.015 (1.003-1.030) 07/30/19 19:25 Urine Protein <15 mg/dl mg/dL (Negative) 07/30/19 19:25 Urine Glucose (UA) >=500 mg/dL (Negative) 07/30/19 19:25 Urine Ketones Neg mg/dL (Negative) 07/30/19 19:25 Urine Blood Sm (Negative) 07/30/19 19:25 Urine Nitrite Neg (Negative) 07/30/19 19:25 Urine Bilirubin Neg (Negative) 07/30/19 19:25 Urine Urobilinogen < 2.0 mg/dL (<2.0) 07/30/19 19:25 Ur Leukocyte Esterase Neg (Negative) 07/30/19 19:25 Urine WBC (Auto) 1.0 /HPF (0.0-6.0) 07/30/19 19:25 Urine RBC (Auto) 1.0 /HPF (0.0-6.0) 07/30/19 19:25 U Epithel Cells (Auto) 1.0 /HPF (0-13.0) 07/30/19 19:25 Influenza A (Rapid) Negative (Negative) 07/30/19 19:20 Influenza A (RT-PCR) Negative (Negative) 07/30/19 19:20 Influenza B (Rapid) Negative (Negative) 07/30/19 19:20 Influenza B (RT-PCR) Negative (Negative) 07/30/19 19:20 Active Medications - Current Medications Current Medications: Generic Name Dose Route Start Last Admin Trade Name Freq PRN Reason Stop Dose Admin Acetaminophen 650 mg 07/29/19 17:39 Tylenol PO Q4H PRN Pain MILD(1-3)/Fever >100.5/MOYER Albuterol 2.5 mg 07/29/19 18:16 Proventil IH Q4H PRN Shortness Of Breath Albuterol/Ipratropium 1 ampul 08/01/19 14:00 08/03/19 07:43 Duoneb *Not For Prn Use* IH 1 ampul Q6HRT SKYLER Administration Enoxaparin Sodium 40 mg 07/30/19 22:00 08/02/19 22:44 Enoxaparin SUB-Q 40 mg QDAY@2200 SKYLER Administration Guaifenesin 600 mg 08/01/19 12:00 08/03/19 09:53 Mucinex Er PO 600 mg BID SKYLER Administration Vancomycin HCl 1,250 mg/ 275 mls @ 166.667 mls/hr 08/03/19 06:00 08/03/19 05:50 Sodium Chloride IV 166.667 mls/hr Q12H SKYLER Administration Insulin Glargine 35 units 07/31/19 12:00 08/03/19 09:52 Lantus SUB-Q 35 units Q12HR SKYLER Administration Insulin Human Lispro 0 unit 07/29/19 19:55 08/03/19 08:34 Humalog SUB-Q 2 unit ACHS SKYLER Administration Protocol Insulin Human Lispro 5 unit 07/30/19 11:30 08/03/19 08:35 Humalog SUB-Q 5 unit AC SKYLER Administration Metformin HCl 500 mg 07/30/19 08:00 08/03/19 09:53 Glucophage Xr PO 500 mg QDDIAB SKYLER Administration Methylprednisolone Sodium Succinate 80 mg 07/29/19 19:00 08/03/19 03:30 Solu-Medrol IV 80 mg Q8H SKYLER Administration Miscellaneous Medication 1 tab 07/30/19 08:00 08/03/19 09:53 Genvoya Tablet PO 1 tab DAILY@0800 SKYLER Administration Ondansetron HCl 4 mg 07/29/19 17:39 08/03/19 08:34 Zofran IV 4 mg Q8H PRN Administration Nausea And Vomiting Oxycodone/Acetaminophen 1 tab 07/29/19 16:54 08/03/19 08:34 Percocet 5/325 PO 1 tab Q6H PRN Administration Pain, Moderate (4-6) Polyethylene Glycol 17 gm 07/31/19 20:00 08/03/19 09:53 Miralax 3350 PO 17 gm QDAY SKYLER Administration Pseudoephedrine/Acetam/Chlorphenir 10 ml 08/01/19 11:40 08/03/19 08:34 Robitussin Ac PO 10 ml Q4H PRN Administration Cough Quetiapine Fumarate 200 mg 07/29/19 22:00 08/02/19 22:44 Seroquel PO 200 mg QHS SKYLER Administration Sodium Chloride 10 ml 07/29/19 22:00 08/03/19 09:53 Sodium Chloride Flush Syringe 10 Ml IV 10 ml BID SKYLER Administration Sodium Chloride 10 ml 07/29/19 16:54 Sodium Chloride Flush Syringe 10 Ml IV PRN PRN LINE FLUSH Nutrition/Malnutrition Assess - Dietary Evaluation Nutrition/Malnutrition Findings: Nutrition Notes Start: 08/03/19 10:41 Freq: Status: Active Protocol: Document 08/03/19 10:41 CT (Rec: 08/03/19 10:42 CT [id number]) Co-Sign 08/03/19 10:41 LP Nutrition Notes Need for Assessment generated from: Low BMI Initial or Follow up Brief Note Weight 99.6 kg Subjective/Other Information Pt ABW is 99.6 kg, updated chart Nutrition Intervention Revisit per MD consult or patient Sign Off request:
--- NOTE | 2019-08-03 12:16 | Progress Note ---
Assessment and Plan Cultures: Blood culture: no growth thus far Influenza PCR: negative sputum culture: MRSA Assessment: 63 y/o female with history of HIV currently on genvoya (does not remember her HIV doctor), QL3=798, /VL=54 on 09/12/2017, COPD, diabetes, bipolar disorder, history of rectovaginal fistula and recurrent UTIs, DVT s/p IVC filter, CHF, seizure admitted 07/29/2019 due to 3-day history of SOB and brownish productive cough: 1) Sepsis: present on admission with tachycardia, neutropenia; source likely pne umonia. 2) MRSA RLL pneumonia with COPD exacerbation vs CAP vs opportunistic less likely. CXR with right basilar consolidation. Sputum growing MRSA. 3) Acute hypoxemic resp failure: pulm following. 4) Diabetes: uncontrolled 5) HIV: on Genvoya. Reportedly compliant, so OI less likely. Follow up HIV PCR and CD4 count. Recommendations: Continue IV Vancomycin for MRSA pneumonia, Day 2 (not a candidate for Linezolid since she is on Zoloft) continue Genvoya. Follow up HIV RNA PCR and CD4 count Repeat CXR ordered Repeat CBC ordered for HUNTER Briones MD, FACP [facility] C: [phone] O: [phone] F: [phone] Subjective Date of service: 08/03/19 Principal diagnosis: acute respiratory failure, right lower lobe pneumonia, HIV Interval history: No fever. Continues to feel short of breath with cough and wheezing. Objective - Exam Narrative Exam: Physical Exam: Constitutional: Alert, cooperative. No acute distress Head, Ears, Nose: Normocephalic, atraumatic. External ears, nose normal Eyes: Conjunctivae/corneas clear. No icterus. No ptosis. Neck: Supple, no meningeal signs Cardiovascular: S1, S2 normal. Respiratory: diffuse b/l wheeze + GI: Soft, non-tender; bowel sounds normal. No peritoneal signs Musculoskeletal: No pedal edema, no cyanosis. Skin: No rash or abscess Hem/Lymphatic: No palpable cervical or supraclavicular nodes. No lymphangitis Psych: Mood ok. Affect normal Neurological: Awake, alert, oriented. No gross abnormality - Constitutional Vitals: Vital Signs Temp Pulse Resp BP Pulse Ox 97.8 F 83 16 116/74 98 08/03/19 04:30 08/03/19 07:43 08/03/19 09:40 08/03/19 04:30 08/03/19 09:40 Temperature -Last 24 Hours Temperature 97.8 F Temperature 98.8 F Temperature 98.4 F Temperature 98.0 F - Labs CBC & Chem 7: 07/31/19 04:50 08/02/19 07:16 Labs: Abnormal lab results 08/02/19 08/03/19 Range/Units 21:25 11:26 POC Glucose 160 H 148 H (70-105)
--- NOTE | 2019-08-03 13:03 | Progress Note ---
Assessment and Plan Acute asthma exacerbation Acute respiratory failure with hypoxia Right lower lobe pneumonia HIV / AIDS HTN (hypertension) IDDM (insulin dependent diabetes mellitus) Morbid obesity with BMI of 40.0-44.9, adult Seizure disorder - continue supplemental oxygen as needed to keep O2 sat's > 90% - continue bronchodilators with pulmonary hygiene per RT (add Brovana) - continue systemic steroids with slow taper (tapered to 60 mg q8h) - added inhaled corticosteroids - complete AB's per ID rec's - PT/OT as tolerated - mobility protocols for pressure ulcer prophylaxis - GI & VTE prophylaxis - continued tobacco abstinence counseled at bedside - Flu & Pneumovax addressed per protocol - weight loss counseled - continue other care per attending / other consultants ... re-evaluate in am & prn Subjective Date of service: 08/03/19 Principal diagnosis: Ac. Asthma exacerbation; Ac. hypoxemic Resp failure; RLL PNA; HIV / AIDS Interval history: Patient is seen today for: Acute asthma exacerbation; Acute hypoxemic respiratory failure; RLL pneumonia; HIV / AIDS; HTN; IDDM; Morbid obesity; Seizure disorder Seen and examined at bedside; 24hour events reviewed; nursing and respiratory care staff consulted; no adverse overnight events reported to me; resting peac efully in bed; denies acute chest pains or palpitations; still wheezing; coughing up brownish phlegm intermittently; No N/V/F/C Objective Vital Signs - 12hr 08/03/19 08/03/19 08/03/19 04:30 07:43 09:40 Temperature 97.8 F Pulse Rate 69 Pulse Rate [ 83 Throughout] Respiratory 20 16 Rate Respiratory 20 Rate [ Throughout] Blood Pressure 116/74 O2 Sat by Pulse 96 98 Oximetry Constitutional: no acute distress, alert, other (elderly obese AAF normocephalic with mildly increased resp effort at rest) Eyes: non-icteric ENT: oropharynx moist, other (Mallampati 3) Neck: supple, no JVD, other (+ large neck circumference) Effort: mildly labored Ascultation: Bilateral: wheezes (expiratory) Percussion: Bilateral: not dull Cardiovascular: regular rate and rhythm Gastrointestinal: normoactive bowel sounds, soft, non-tender, non-distended Integumentary: normal Extremities: no cyanosis, no edema, pulses normal, no ischemia or petechiae Neurologic: normal mental status, non-focal exam, pupils equal and round, CN II- XII normal, motor strength normal and Psychiatric: mood appropriate, affect normal CBC and BMP: 07/31/19 04:50 08/02/19 07:16 ABG, PT/INR, D-dimer: ABG POC ABG pH 7.431 (7.35-7.45) 07/29/19 13:29 POC ABG pCO2 42.8 (35-45) 07/29/19 13:29 POC ABG pO2 76 (80-105) L 07/29/19 13:29 POC ABG HCO3 28.4 (22-26 mml/L) 07/29/19 13:29 POC ABG Total CO2 30 (23-27mmol/L) 07/29/19 13:29 POC ABG O2 Sat 95 07/29/19 13:29 PT/INR, D-dimer PT 13.8 Sec. (12.2-14.9) 07/29/19 11:12 INR 1.07 (0.87-1.13) 07/29/19 11:12 Abnormal lab findings: Abnormal Labs 07/29/19 07/29/19 07/29/19 11:26 11:26 11:26 WBC 3.9 L RBC 3.40 L MCV 106 H MCH 36 H MCHC 35 H Lymph % (Auto) 42.4 H [place] % (Auto) 9.8 H Lymph # Seg Neutrophils % Lymphocytes % (Manual) Seg Neutrophils # 1.7 L Seg Neutrophils # Man Lymphocytes # (Manual) POC ABG pO2 Potassium 3.0 L BUN Creatinine 0.5 L Glucose 227 H POC Glucose Hemoglobin A1c 9.0 H ALT 6 L 07/29/19 07/29/19 07/29/19 13:29 17:40 19:56 WBC RBC MCV MCH MCHC Lymph % (Auto) [place] % (Auto) Lymph # Seg Neutrophils % Lymphocytes % (Manual) Seg Neutrophils # Seg Neutrophils # Man Lymphocytes # (Manual) POC ABG pO2 76 L Potassium BUN Creatinine Glucose POC Glucose 466 H 404 H Hemoglobin A1c ALT 07/29/19 07/29/19 07/30/19 22:07 22:37 04:39 WBC 1.9 L* RBC 3.54 L MCV 106 H MCH 37 H MCHC Lymph % (Auto) [place] % (Auto) Lymph # Seg Neutrophils % Lymphocytes % (Manual) 45.0 H Seg Neutrophils # Seg Neutrophils # Man 1.0 L Lymphocytes # (Manual) 0.9 L POC ABG pO2 Potassium BUN Creatinine Glucose POC Glucose 280 H 220 H Hemoglobin A1c ALT 07/30/19 07/30/19 07/30/19 04:39 08:16 11:25 WBC RBC MCV MCH MCHC Lymph % (Auto) [place] % (Auto) Lymph # Seg Neutrophils % Lymphocytes % (Manual) Seg Neutrophils # Seg Neutrophils # Man Lymphocytes # (Manual) POC ABG pO2 Potassium BUN 19 H Creatinine 0.6 L Glucose 236 H POC Glucose 262 H 294 H Hemoglobin A1c ALT 6 L 07/30/19 07/30/19 07/31/19 16:58 21:44 04:50 WBC RBC 3.34 L MCV 107 H MCH 36 H MCHC Lymph % (Auto) [place] % (Auto) Lymph # 0.9 L Seg Neutrophils % 78.1 H Lymphocytes % (Manual) Seg Neutrophils # Seg Neutrophils # Man Lymphocytes # (Manual) POC ABG pO2 Potassium BUN Creatinine Glucose POC Glucose 308 H 299 H Hemoglobin A1c ALT 07/31/19 07/31/19 07/31/19 07:59 12:26 17:05 WBC RBC MCV MCH MCHC Lymph % (Auto) [place] % (Auto) Lymph # Seg Neutrophils % Lymphocytes % (Manual) Seg Neutrophils # Seg Neutrophils # Man Lymphocytes # (Manual) POC ABG pO2 Potassium BUN Creatinine Glucose POC Glucose 226 H 185 H 196 H Hemoglobin A1c ALT 07/31/19 08/01/19 08/01/19 22:13 08:12 16:31 WBC RBC MCV MCH MCHC Lymph % (Auto) [place] % (Auto) Lymph # Seg Neutrophils % Lymphocytes % (Manual) Seg Neutrophils # Seg Neutrophils # Man Lymphocytes # (Manual) POC ABG pO2 Potassium BUN Creatinine Glucose POC Glucose 279 H 146 H 44 L Hemoglobin A1c ALT 08/01/19 08/01/19 08/02/19 17:35 20:51 07:16 WBC RBC MCV MCH MCHC Lymph % (Auto) [place] % (Auto) Lymph # Seg Neutrophils % Lymphocytes % (Manual) Seg Neutrophils # Seg Neutrophils # Man Lymphocytes # (Manual) POC ABG pO2 Potassium BUN 20 H Creatinine Glucose POC Glucose 173 H 203 H Hemoglobin A1c ALT 08/02/19 08/02/19 08/03/19 11:38 21:25 11:26 WBC RBC MCV MCH MCHC Lymph % (Auto) [place] % (Auto) Lymph # Seg Neutrophils % Lymphocytes % (Manual) Seg Neutrophils # Seg Neutrophils # Man Lymphocytes # (Manual) POC ABG pO2 Potassium BUN Creatinine Glucose POC Glucose 255 H 160 H 148 H Hemoglobin A1c ALT Chest x-ray: image reviewed (no new infiltrate / acute process) Allied health notes reviewed: nursing
--- NOTE | 2019-08-03 13:28 | XRay Report ---
CHEST 2 VIEWS INDICATION: SOB. MRSA pneumonia. COMPARISON: 07/29/2019. FINDINGS: Support devices: None. Heart: Mild cardiomegaly unchanged. The aorta remains tortuous and ectatic. Lungs/Pleura: No acute air space or interstitial disease. No significant pleural effusion. IMPRESSION: Stable mild cardiomegaly. Signer Name: Mau Jacinto MD Signed: 08/03/2019 1:23 PM Workstation Name: [id number]
[2019-08-03] MEDS: ARFORMOTEROL 15 MCG/2 ML NEBU IH SCH (21:01)
[2019-08-03] MEDS: BUDESONIDE 0.5 MG/2 ML NEBU IH SCH (21:01)
[2019-08-03] MEDS: QUEtiapine 200 MG TAB PO SCH (21:54)
[2019-08-03] MEDS: ENOXAPARIN 40 MG/0.4 ML INJ SUB-Q SCH (21:56)
[2019-08-04] MEDS: methylPREDNISolone Sod Succinate 125 MG/2 ML INJ IV SCH ×4 (00:51→23:52)
[2019-08-04] MEDS: IPRATROPIUM/ALBUTEROL SULFATE 3 ML AMPUL.NEB IH SCH ×4 (03:39→21:07)
[2019-08-04 05:36] LABS: Hematocrit 35.6 % (30.3-42.9); Mean Corpuscular HGB Conc 34 % (30-34); Mean Corpuscular Volume 106 fl (79-97); Platelet Count 186 K/mm3 (140-440); Red Blood Count 3.35 M/mm3 (3.65-5.03); Red Cell Distribution Width 13.8 % (13.2-15.2)
[2019-08-04] MEDS: VANCOMYCIN 1,250 MG in SODIUM CHLORIDE 0.9% 250ML 250 ML IV SCH ×2 (06:05→18:20)
[2019-08-04] MEDS: oxyCODONE /ACETAMINOPHEN 5-325MG TAB PO PRN ×2 (06:06→18:10)
[2019-08-04] MEDS: ONDANSETRON 4 MG/2 ML INJ IV PRN (06:06)
[2019-08-04] MEDS: ARFORMOTEROL 15 MCG/2 ML NEBU IH SCH ×2 (07:35→21:06)
[2019-08-04] MEDS: BUDESONIDE 0.5 MG/2 ML NEBU IH SCH ×2 (07:35→21:07)
[2019-08-04] MEDS: guaiFENesin/CODEINE 100-10MG ORAL LIQD 5 ML PO PRN (08:16)
[2019-08-04] MEDS: INSULIN LISPRO 100 UNIT/ML SUB-Q SCH ×7 (08:39→22:16)
[2019-08-04] MEDS: POLYETHYLENE GLYCOL 3350 17 GM POWDER PO SCH (09:22)
[2019-08-04] MEDS: INSULIN GLARGINE 100 UNITS/ML SUB-Q SCH ×2 (09:22→22:16)
[2019-08-04] MEDS: guaiFENesin ER 600 MG TAB PO SCH ×2 (09:22→21:45)
[2019-08-04] MEDS: metFORMIN XR 500MG TAB PO SCH (09:22)
[2019-08-04] MEDS: GENVOYA PO SCH (09:23)
--- NOTE | 2019-08-04 10:37 | Progress Note ---
Assessment and Plan Acute asthma exacerbation Acute respiratory failure with hypoxia Right lower lobe pneumonia HIV / AIDS HTN (hypertension) IDDM (insulin dependent diabetes mellitus) Morbid obesity with BMI of 40.0-44.9, adult Seizure disorder - continue supplemental oxygen as needed to keep O2 sat's > 90% - continue bronchodilators with pulmonary hygiene per RT (add Brovana) - continue systemic steroids with slow taper (tapered to 60 mg q8h) - added inhaled corticosteroids - complete AB's per ID rec's - PT/OT as tolerated - mobility protocols for pressure ulcer prophylaxis - GI & VTE prophylaxis - continued tobacco abstinence counseled at bedside - Flu & Pneumovax addressed per protocol - weight loss counseled - continue other care per attending / other consultants ... re-evaluate in am & prn Subjective Date of service: 08/04/19 Principal diagnosis: Ac. Asthma exacerbation; Ac. hypoxemic Resp failure; RLL PNA; HIV / AIDS Interval history: Patient is seen today for: Acute asthma exacerbation; Acute hypoxemic respiratory failure; RLL pneumonia; HIV / AIDS; HTN; IDDM; Morbid obesity; Seizure disorder Seen and examined at bedside; 24hour events reviewed; nursing and respiratory care staff consulted; no adverse overnight events reported to me; resting peacefully in bed; remains on supplemental oxygen; still wheezing but feels b ivan Objective Vital Signs - 12hr 08/03/19 08/03/19 08/04/19 23:14 23:52 04:21 Temperature 98.2 F Pulse Rate 88 Respiratory 18 20 Rate Blood Pressure 111/69 130/83 O2 Sat by Pulse 97 97 Oximetry 08/04/19 07:50 Temperature Pulse Rate Respiratory 16 Rate Blood Pressure O2 Sat by Pulse Oximetry Constitutional: no acute distress, alert, other (elderly obese AAF normocephalic with mildly increased resp effort at rest) Eyes: non-icteric ENT: oropharynx moist, other (Mallampati 3) Neck: supple, no JVD, other (+ large neck circumference) Effort: mildly labored Ascultation: Bilateral: wheezes (expiratory), rhonchi Percussion: Bilateral: not dull Cardiovascular: regular rate and rhythm Gastrointestinal: normoactive bowel sounds, soft, non-tender, non-distended Integumentary: normal Extremities: no cyanosis, no edema, pulses normal, no ischemia or petechiae Neurologic: normal mental status, non-focal exam, pupils equal and round, CN II- XII normal, motor strength normal and Psychiatric: mood appropriate, affect normal CBC and BMP: 08/06/19 08:15 08/06/19 08:15 ABG, PT/INR, D-dimer: ABG POC ABG pH 7.431 (7.35-7.45) 07/29/19 13:29 POC ABG pCO2 42.8 (35-45) 07/29/19 13:29 POC ABG pO2 76 (80-105) L 07/29/19 13:29 POC ABG HCO3 28.4 (22-26 mml/L) 07/29/19 13:29 POC ABG Total CO2 30 (23-27mmol/L) 07/29/19 13:29 POC ABG O2 Sat 95 07/29/19 13:29 PT/INR, D-dimer PT 13.8 Sec. (12.2-14.9) 07/29/19 11:12 INR 1.07 (0.87-1.13) 07/29/19 11:12 Abnormal lab findings: Abnormal Labs 07/29/19 07/29/19 07/29/19 11:26 11:26 11:26 WBC 3.9 L RBC 3.40 L MCV 106 H MCH 36 H MCHC 35 H Lymph % (Auto) 42.4 H [place] % (Auto) 9.8 H Lymph # Seg Neutrophils % Lymphocytes % (Manual) Seg Neutrophils # 1.7 L Seg Neutrophils # Man Lymphocytes # (Manual) POC ABG pO2 Potassium 3.0 L BUN Creatinine 0.5 L Glucose 227 H POC Glucose Hemoglobin A1c 9.0 H ALT 6 L 07/29/19 07/29/19 07/29/19 13:29 17:40 19:56 WBC RBC MCV MCH MCHC Lymph % (Auto) [place] % (Auto) Lymph # Seg Neutrophils % Lymphocytes % (Manual) Seg Neutrophils # Seg Neutrophils # Man Lymphocytes # (Manual) POC ABG pO2 76 L Potassium BUN Creatinine Glucose POC Glucose 466 H 404 H Hemoglobin A1c ALT 07/29/19 07/29/19 07/30/19 22:07 22:37 04:39 WBC 1.9 L* RBC 3.54 L MCV 106 H MCH 37 H MCHC Lymph % (Auto) [place] % (Auto) Lymph # Seg Neutrophils % Lymphocytes % (Manual) 45.0 H Seg Neutrophils # Seg Neutrophils # Man 1.0 L Lymphocytes # (Manual) 0.9 L POC ABG pO2 Potassium BUN Creatinine Glucose POC Glucose 280 H 220 H Hemoglobin A1c ALT 07/30/19 07/30/19 07/30/19 04:39 08:16 11:25 WBC RBC MCV MCH MCHC Lymph % (Auto) [place] % (Auto) Lymph # Seg Neutrophils % Lymphocytes % (Manual) Seg Neutrophils # Seg Neutrophils # Man Lymphocytes # (Manual) POC ABG pO2 Potassium BUN 19 H Creatinine 0.6 L Glucose 236 H POC Glucose 262 H 294 H Hemoglobin A1c ALT 6 L 07/30/19 07/30/19 07/31/19 16:58 21:44 04:50 WBC RBC 3.34 L MCV 107 H MCH 36 H MCHC Lymph % (Auto) [place] % (Auto) Lymph # 0.9 L Seg Neutrophils % 78.1 H Lymphocytes % (Manual) Seg Neutrophils # Seg Neutrophils # Man Lymphocytes # (Manual) POC ABG pO2 Potassium BUN Creatinine Glucose POC Glucose 308 H 299 H Hemoglobin A1c ALT 07/31/19 07/31/19 07/31/19 07:59 12:26 17:05 WBC RBC MCV MCH MCHC Lymph % (Auto) [place] % (Auto) Lymph # Seg Neutrophils % Lymphocytes % (Manual) Seg Neutrophils # Seg Neutrophils # Man Lymphocytes # (Manual) POC ABG pO2 Potassium BUN Creatinine Glucose POC Glucose 226 H 185 H 196 H Hemoglobin A1c ALT 07/31/19 08/01/19 08/01/19 22:13 08:12 16:31 WBC RBC MCV MCH MCHC Lymph % (Auto) [place] % (Auto) Lymph # Seg Neutrophils % Lymphocytes % (Manual) Seg Neutrophils # Seg Neutrophils # Man Lymphocytes # (Manual) POC ABG pO2 Potassium BUN Creatinine Glucose POC Glucose 279 H 146 H 44 L Hemoglobin A1c ALT 08/01/19 08/01/19 08/02/19 17:35 20:51 07:16 WBC RBC MCV MCH MCHC Lymph % (Auto) [place] % (Auto) Lymph # Seg Neutrophils % Lymphocytes % (Manual) Seg Neutrophils # Seg Neutrophils # Man Lymphocytes # (Manual) POC ABG pO2 Potassium BUN 20 H Creatinine Glucose POC Glucose 173 H 203 H Hemoglobin A1c ALT 08/02/19 08/02/19 08/03/19 11:38 21:25 11:26 WBC RBC MCV MCH MCHC Lymph % (Auto) [place] % (Auto) Lymph # Seg Neutrophils % Lymphocytes % (Manual) Seg Neutrophils # Seg Neutrophils # Man Lymphocytes # (Manual) POC ABG pO2 Potassium BUN Creatinine Glucose POC Glucose 255 H 160 H 148 H Hemoglobin A1c ALT 08/03/19 08/04/19 21:26 05:11 WBC RBC 3.35 L MCV 106 H MCH 36 H MCHC Lymph % (Auto) [place] % (Auto) Lymph # Seg Neutrophils % Lymphocytes % (Manual) Seg Neutrophils # Seg Neutrophils # Man Lymphocytes # (Manual) POC ABG pO2 Potassium BUN Creatinine Glucose POC Glucose 234 H Hemoglobin A1c ALT Allied health notes reviewed: nursing
--- NOTE | 2019-08-04 12:44 | Progress Note ---
Assessment and Plan Assessment and plan: Sepsis. Etiology sec to pneumonia. RLL pneumonia. CXR with right basilar consolidation. Sputum growing Staph aureus. Continue antibiotics per ID COPD exacerbation. Cont bronchodilators and nebulizers. Acute hypoxemic resp failure. Etiology secondary to above. Pulm following. Diabetes II, uncontrolled. Continue Accu-Cheks and sliding scale insulin. HIV. Continue on Genvoya. Follow up HIV PCR and CD4 count. History Interval history: 63 y/o female with history of HIV currently on genvoya (does not remember her HIV doctor), LM1=075, /VL=54 on 09/12/2017, COPD, diabetes, bipolar disorder, history of rectovaginal fistula and recurrent UTIs, DVT s/p IVC filter, CHF, seizure admitted 07/29/2019 due to 3-day history of SOB and brownish productive cough Hospitalist Physical - Constitutional Vitals: Temp Pulse Resp BP Pulse Ox 98.2 F 74 18 113/69 94 08/04/19 12:19 08/04/19 12:19 08/04/19 12:19 08/04/19 12:19 08/04/19 12:19 General appearance: Present: no acute distress, well-nourished - EENT Eyes: Present: PERRL, EOM intact ENT: hearing intact, clear oral mucosa, dentition normal - Neck Neck: Present: supple, normal ROM - Respiratory Respiratory effort: normal Respiratory: bilateral: CTA - Cardiovascular Rhythm: regular Heart Sounds: Present: S1 & S2. Absent: gallop, rub - Extremities Extremities: no ischemia, No edema, Full ROM - Abdominal General gastrointestinal: soft, non-tender, non-distended, normal bowel sounds - Integumentary Integumentary: Present: clear, warm, dry - Neurologic Neurologic: CNII-XII intact, moves all extremities Results - Labs CBC & Chem 7: 08/04/19 05:11 08/02/19 07:16 Labs: Laboratory Last Values WBC 5.0 K/mm3 (4.5-11.0) 08/04/19 05:11 RBC 3.35 M/mm3 (3.65-5.03) L 08/04/19 05:11 Hgb 12.0 gm/dl (10.1-14.3) 08/04/19 05:11 Hct 35.6 % (30.3-42.9) 08/04/19 05:11 MCV 106 fl (79-97) H 08/04/19 05:11 MCH 36 pg (28-32) H 08/04/19 05:11 MCHC 34 % (30-34) 08/04/19 05:11 RDW 13.8 % (13.2-15.2) 08/04/19 05:11 Plt Count 186 K/mm3 (140-440) 08/04/19 05:11 Lymph % (Auto) 18.6 % (13.4-35.0) 07/31/19 04:50 [place] % (Auto) 3.2 % (0.0-7.3) 07/31/19 04:50 Eos % (Auto) 0.0 % (0.0-4.3) 07/31/19 04:50 Baso % (Auto) 0.1 % (0.0-1.8) 07/31/19 04:50 Lymph # 0.9 K/mm3 (1.2-5.4) L 07/31/19 04:50 [place] # 0.2 K/mm3 (0.0-0.8) 07/31/19 04:50 Eos # 0.0 K/mm3 (0.0-0.4) 07/31/19 04:50 Baso # 0.0 K/mm3 (0.0-0.1) 07/31/19 04:50 Add Manual Diff Complete 07/30/19 04:39 Total Counted 100 07/30/19 04:39 Seg Neutrophils % 78.1 % (40.0-70.0) H 07/31/19 04:50 Seg Neuts % (Manual) 54.0 % (40.0-70.0) 07/30/19 04:39 Band Neutrophils % 0 % 07/30/19 04:39 Lymphocytes % (Manual) 45.0 % (13.4-35.0) H 07/30/19 04:39 Reactive Lymphs % (Man) 0 % 07/30/19 04:39 Monocytes % (Manual) 1.0 % (0.0-7.3) 07/30/19 04:39 Eosinophils % (Manual) 0 % (0.0-4.3) 07/30/19 04:39 Basophils % (Manual) 0 % (0.0-1.8) 07/30/19 04:39 Metamyelocytes % 0 % 07/30/19 04:39 Myelocytes % 0 % 07/30/19 04:39 Promyelocytes % 0 % 07/30/19 04:39 Blast Cells % 0 % 07/30/19 04:39 Nucleated RBC % Not Reportable 07/30/19 04:39 Seg Neutrophils # 3.9 K/mm3 (1.8-7.7) 07/31/19 04:50 Seg Neutrophils # Man 1.0 K/mm3 (1.8-7.7) L 07/30/19 04:39 Band Neutrophils # 0.0 K/mm3 07/30/19 04:39 Lymphocytes # (Manual) 0.9 K/mm3 (1.2-5.4) L 07/30/19 04:39 Abs React Lymphs (Man) 0.0 K/mm3 07/30/19 04:39 Monocytes # (Manual) 0.0 K/mm3 (0.0-0.8) 07/30/19 04:39 Eosinophils # (Manual) 0.0 K/mm3 (0.0-0.4) 07/30/19 04:39 Basophils # (Manual) 0.0 K/mm3 (0.0-0.1) 07/30/19 04:39 Metamyelocytes # 0.0 K/mm3 07/30/19 04:39 Myelocytes # 0.0 K/mm3 07/30/19 04:39 Promyelocytes # 0.0 K/mm3 07/30/19 04:39 Blast Cells # 0.0 K/mm3 07/30/19 04:39 WBC Morphology Not Reportable 07/30/19 04:39 Hypersegmented Neuts Not Reportable 07/30/19 04:39 Hyposegmented Neuts Not Reportable 07/30/19 04:39 Hypogranular Neuts Not Reportable 07/30/19 04:39 Smudge Cells Not Reportable 07/30/19 04:39 Toxic Granulation Not Reportable 07/30/19 04:39 Toxic Vacuolation Not Reportable 07/30/19 04:39 Dohle Bodies Not Reportable 07/30/19 04:39 Pelger-Huet Anomaly Not Reportable 07/30/19 04:39 Susan Rods Not Reportable 07/30/19 04:39 Platelet Estimate Consistent w auto 07/30/19 04:39 Clumped Platelets Not Reportable 07/30/19 04:39 Plt Clumps, EDTA Not Reportable 07/30/19 04:39 Large Platelets Not Reportable 07/30/19 04:39 Giant Platelets Not Reportable 07/30/19 04:39 Platelet Satelliting Not Reportable 07/30/19 04:39 Plt Morphology Comment Not Reportable 07/30/19 04:39 RBC Morphology Not Reportable 07/30/19 04:39 Dimorphic RBCs Not Reportable 07/30/19 04:39 Polychromasia Not Reportable 07/30/19 04:39 Hypochromasia Not Reportable 07/30/19 04:39 Poikilocytosis Not Reportable 07/30/19 04:39 Anisocytosis Not Reportable 07/30/19 04:39 Microcytosis Not Reportable 07/30/19 04:39 Macrocytosis Not Reportable 07/30/19 04:39 Spherocytes Not Reportable 07/30/19 04:39 Pappenheimer Bodies Not Reportable 07/30/19 04:39 Sickle Cells Not Reportable 07/30/19 04:39 Target Cells Not Reportable 07/30/19 04:39 Tear Drop Cells Not Reportable 07/30/19 04:39 Ovalocytes Not Reportable 07/30/19 04:39 Helmet Cells Not Reportable 07/30/19 04:39 [place] Bodies Not Reportable 07/30/19 04:39 [place] Rings Not Reportable 07/30/19 04:39 [place] Cells Not Reportable 07/30/19 04:39 Bite Cells Not Reportable 07/30/19 04:39 Crenated Cell Not Reportable 07/30/19 04:39 Elliptocytes Not Reportable 07/30/19 04:39 Acanthocytes (Spur) Not Reportable 07/30/19 04:39 Rouleaux Not Reportable 07/30/19 04:39 Hemoglobin C Crystals Not Reportable 07/30/19 04:39 Schistocytes Not Reportable 07/30/19 04:39 Malaria parasites Not Reportable 07/30/19 04:39 [place] Bodies Not Reportable 07/30/19 04:39 Hem Pathologist Commnt No 07/30/19 04:39 PT 13.8 Sec. (12.2-14.9) 07/29/19 11:12 INR 1.07 (0.87-1.13) 07/29/19 11:12 APTT 27.6 Sec. (24.2-36.6) 07/29/19 11:12 POC ABG pH 7.431 (7.35-7.45) 07/29/19 13:29 POC ABG pCO2 42.8 (35-45) 07/29/19 13:29 POC ABG pO2 76 (80-105) L 07/29/19 13:29 POC ABG HCO3 28.4 (22-26 mml/L) 07/29/19 13:29 POC ABG Total CO2 30 (23-27mmol/L) 07/29/19 13:29 POC ABG O2 Sat 95 07/29/19 13:29 POC ABG Base Excess 4 ((-2) - (+3)mmol/L) 07/29/19 13:29 FiO2 21 % 07/29/19 13:29 Sodium 139 mmol/L (137-145) 08/02/19 07:16 Potassium 4.4 mmol/L (3.6-5.0) 08/02/19 07:16 Chloride 101.7 mmol/L (98-107) 08/02/19 07:16 Carbon Dioxide 23 mmol/L (22-30) 08/02/19 07:16 Anion Gap 19 mmol/L 08/02/19 07:16 BUN 20 mg/dL (7-17) H 08/02/19 07:16 Creatinine 0.7 mg/dL (0.7-1.2) 08/02/19 07:16 Estimated GFR > 60 ml/min 08/02/19 07:16 BUN/Creatinine Ratio 29 % 08/02/19 07:16 Glucose 85 mg/dL (65-100) 08/02/19 07:16 POC Glucose 176 (70-105) H 08/04/19 11:41 Hemoglobin A1c 9.0 % (4-6) H 07/29/19 11:26 Calcium 8.4 mg/dL (8.4-10.2) 08/02/19 07:16 Magnesium 2.30 mg/dL (1.7-2.3) 08/02/19 07:16 Total Bilirubin < 0.20 mg/dL (0.1-1.2) 07/30/19 04:39 AST 10 units/L (5-40) 07/30/19 04:39 ALT 6 units/L (7-56) L 07/30/19 04:39 Alkaline Phosphatase 129 units/L (35-129) 07/30/19 04:39 Troponin T < 0.010 ng/mL (0.00-0.029) 07/29/19 11:26 NT-Pro-B Natriuret Pep 79.54 pg/mL (0-900) 07/29/19 11:26 Total Protein 7.7 g/dL (6.3-8.2) 07/30/19 04:39 Albumin 4.0 g/dL (3.9-5) 07/30/19 04:39 Albumin/Globulin Ratio 1.1 % 07/30/19 04:39 Procalcitonin < 0.05 ng/mL (<0.15) 07/30/19 23:31 Urine Color Straw (Yellow) 07/30/19 19:25 Urine Turbidity Clear (Clear) 07/30/19 19:25 Urine pH 5.0 (5.0-7.0) 07/30/19 19:25 Ur Specific [place] 1.015 (1.003-1.030) 07/30/19 19:25 Urine Protein <15 mg/dl mg/dL (Negative) 07/30/19 19:25 Urine Glucose (UA) >=500 mg/dL (Negative) 07/30/19 19:25 Urine Ketones Neg mg/dL (Negative) 07/30/19 19:25 Urine Blood Sm (Negative) 07/30/19 19:25 Urine Nitrite Neg (Negative) 07/30/19 19:25 Urine Bilirubin Neg (Negative) 07/30/19 19:25 Urine Urobilinogen < 2.0 mg/dL (<2.0) 07/30/19 19:25 Ur Leukocyte Esterase Neg (Negative) 07/30/19 19:25 Urine WBC (Auto) 1.0 /HPF (0.0-6.0) 07/30/19 19:25 Urine RBC (Auto) 1.0 /HPF (0.0-6.0) 07/30/19 19:25 U Epithel Cells (Auto) 1.0 /HPF (0-13.0) 07/30/19 19:25 Vancomycin Trough 16.1 ug/mL (5.0-20.0) 08/04/19 05:11 Influenza A (Rapid) Negative (Negative) 07/30/19 19:20 Influenza A (RT-PCR) Negative (Negative) 07/30/19 19:20 Influenza B (Rapid) Negative (Negative) 07/30/19 19:20 Influenza B (RT-PCR) Negative (Negative) 07/30/19 19:20 Active Medications - Current Medications Current Medications: Generic Name Dose Route Start Last Admin Trade Name Freq PRN Reason Stop Dose Admin Acetaminophen 650 mg 07/29/19 17:39 Tylenol PO Q4H PRN Pain MILD(1-3)/Fever >100.5/MOYER Albuterol 2.5 mg 07/29/19 18:16 Proventil IH Q4H PRN Shortness Of Breath Albuterol/Ipratropium 1 ampul 08/01/19 14:00 08/04/19 07:35 Duoneb *Not For Prn Use* IH 1 ampul Q6HRT SKYLER Administration Arformoterol Tartrate 15 mcg 08/03/19 20:00 08/04/19 07:35 Brovana Nebu IH 15 mcg Q12HRT SKYLER Administration Budesonide 0.5 mg 08/03/19 20:00 08/04/19 07:35 Pulmicort IH 0.5 mg Q12HRT SKYLER Administration Enoxaparin Sodium 40 mg 07/30/19 22:00 08/03/19 21:56 Enoxaparin SUB-Q 40 mg QDAY@2200 SKYLER Administration Guaifenesin 600 mg 08/01/19 12:00 08/04/19 09:22 Mucinex Er PO 600 mg BID SKYLER Administration Vancomycin HCl 1,250 mg/ 275 mls @ 166.667 mls/hr 08/03/19 06:00 08/04/19 06 :05 Sodium Chloride IV 166.667 mls/hr Q12H SKYLER Administration Insulin Glargine 35 units 07/31/19 12:00 08/04/19 09:22 Lantus SUB-Q 35 units Q12HR SKYLER Administration Insulin Human Lispro 0 unit 07/29/19 19:55 12/13/19 08:39 Humalog SUB-Q Not Given ACHS [facility] Protocol Insulin Human Lispro 5 unit 07/30/19 11:30 08/04/19 08:46 Humalog SUB-Q 5 unit AC SKYLER Administration Metformin HCl 500 mg 07/30/19 08:00 08/04/19 09:22 Glucophage Xr PO 500 mg QDDIAB SKYLER Administration Methylprednisolone Sodium Succinate 60 mg 08/03/19 15:30 08/04/19 09:22 Solu-Medrol IV 60 mg Q8H SKYLER Administration Miscellaneous Medication 1 tab 07/30/19 08:00 08/04/19 09:23 Genvoya Tablet PO 1 tab DAILY@0800 SKYLER Administration Ondansetron HCl 4 mg 07/29/19 17:39 08/04/19 06:06 Zofran IV 4 mg Q8H PRN Administration Nausea And Vomiting Oxycodone/Acetaminophen 1 tab 07/29/19 16:54 08/04/19 06:06 Percocet 5/325 PO 1 tab Q6H PRN Administration Pain, Moderate (4-6) Polyethylene Glycol 17 gm 07/31/19 20:00 08/04/19 09:22 Miralax 3350 PO 17 gm QDAY SKYLER Administration Pseudoephedrine/Acetam/Chlorphenir 10 ml 08/01/19 11:40 08/04/19 08:16 Robitussin Ac PO 10 ml Q4H PRN Administration Cough Quetiapine Fumarate 200 mg 07/29/19 22:00 08/03/19 21:54 Seroquel PO 200 mg QHS SKYLER Administration Sodium Chloride 10 ml 07/29/19 22:00 08/04/19 09:23 Sodium Chloride Flush Syringe 10 Ml IV 10 ml BID SKYLER Administration Sodium Chloride 10 ml 07/29/19 16:54 Sodium Chloride Flush Syringe 10 Ml IV PRN PRN LINE FLUSH Nutrition/Malnutrition Assess - Dietary Evaluation Nutrition/Malnutrition Findings: Nutrition Notes Start: 08/03/19 10:41 Freq: Status: Active Protocol: Document 08/03/19 10:41 CT (Rec: 08/03/19 10:42 CT [id number]) Co-Sign 08/03/19 10:41 LP Nutrition Notes Need for Assessment generated from: Low BMI Initial or Follow up Brief Note Weight 99.6 kg Subjective/Other Information Pt ABW is 99.6 kg, updated chart Nutrition Intervention Revisit per MD consult or patient Sign Off request:
--- NOTE | 2019-08-04 14:52 | Progress Note ---
Assessment and Plan Cultures: Blood culture: no growth thus far Influenza PCR: negative sputum culture: MRSA Assessment: 63 y/o female with history of HIV currently on genvoya (does not remember her HIV doctor), DV5=497, /VL=54 on 09/12/2017, COPD, diabetes, bipolar disorder, history of rectovaginal fistula and recurrent UTIs, DVT s/p IVC filter, CHF, seizure admitted 07/29/2019 due to 3-day history of SOB and brownish productive cough: 1) Sepsis: present on admission with tachycardia, neutropenia; source likely pne umonia. 2) MRSA RLL pneumonia with COPD exacerbation vs CAP vs opportunistic less likely. CXR with right basilar consolidation. Sputum growing MRSA. Repeat CXR 08/03/2019, showing improvement. 3) Acute hypoxemic resp failure: pulm following. 4) Diabetes: uncontrolled 5) HIV: on Genvoya. Reportedly compliant, so OI less likely. Follow up HIV PCR and CD4 count. Recommendations: Continue IV Vancomycin for MRSA pneumonia, Day 3 of 7 (not a candidate for Li nezolid since she is on Zoloft and not a candidate for doxycycline due to tetracycline allergy) Midline ordered. Discussed with Case management, set up IV Vancomycin at home ending 08/08/2019. continue Genvoya. Follow up HIV RNA PCR and CD4 count d/w case management. Ori Briones MD, FACP [facility], [facility] ([facility]) C: [phone] O: [phone] F: [phone] Subjective Date of service: 08/04/19 Principal diagnosis: Ac. Asthma exacerbation; Ac. hypoxemic Resp failure; RLL PNA; HIV / AIDS Interval history: No fever. Shortness of breath is improving. No nausea, vomiting. Objective - Exam Narrative Exam: Physical Exam: Constitutional: Alert, cooperative. No acute distress Head, Ears, Nose: Normocephalic, atraumatic. External ears, nose normal Eyes: Conjunctivae/corneas clear. No icterus. No ptosis. Neck: Supple, no meningeal signs Cardiovascular: S1, S2 normal. Respiratory: diffuse b/l wheeze + improving air movement b/l GI: Soft, non-tender; bowel sounds normal. No peritoneal signs Musculoskeletal: No pedal edema, no cyanosis. Skin: No rash or abscess Hem/Lymphatic: No palpable cervical or supraclavicular nodes. No lymphangitis Psych: Mood ok. Affect normal Neurological: Awake, alert, oriented. No gross abnormality - Constitutional Vitals: Vital Signs Temp Pulse Resp BP Pulse Ox 98.2 F 74 18 113/69 94 08/04/19 12:19 08/04/19 12:19 08/04/19 12:19 08/04/19 12:19 08/04/19 12:19 Temperature -Last 24 Hours Temperature 98.2 F Temperature 98.2 F Temperature 98.2 F Temperature 98.3 F - Labs CBC & Chem 7: 08/04/19 05:11 08/02/19 07:16 Labs: Abnormal lab results 08/03/19 08/04/19 08/04/19 Range/Units 21:26 05:11 11:41 RBC 3.35 L (3.65-5.03) M/mm3 MCV 106 H (79-97) fl MCH 36 H (28-32) pg POC Glucose 234 H 176 H (70-105) - Imaging and cardiology Chest x-ray: report reviewed, image reviewed (improving airspace disease.)
[2019-08-04 20:32] LABS: HIV-1 RNA QN PCR 1.52 Log cps/mL
[2019-08-04] MEDS: QUEtiapine 200 MG TAB PO SCH (21:45)
[2019-08-04] MEDS: ENOXAPARIN 40 MG/0.4 ML INJ SUB-Q SCH (21:45)
[2019-08-05] MEDS: IPRATROPIUM/ALBUTEROL SULFATE 3 ML AMPUL.NEB IH SCH ×4 (03:28→21:20)
[2019-08-05] MEDS: VANCOMYCIN 1,250 MG in SODIUM CHLORIDE 0.9% 250ML 250 ML IV SCH ×2 (05:24→17:52)
[2019-08-05 05:33] LABS: Basophils % (Auto) 0.2 % (0.0-1.8); Hemoglobin 12.2 gm/dl (10.1-14.3); Lymphocytes # (Auto) 1.1 K/mm3 (1.2-5.4); Lymphocytes % (Auto) 21.3 % (13.4-35.0); Mean Corpuscular HGB Conc 34 % (30-34); Mean Corpuscular Volume 105 fl (79-97); Monocytes # (Auto) 0.2 K/mm3 (0.0-0.8); Monocytes % (Auto) 2.8 % (0.0-7.3); Platelet Count 192 K/mm3 (140-440); Red Blood Count 3.41 M/mm3 (3.65-5.03); Red Cell Distribution Width 13.8 % (13.2-15.2)
[2019-08-05] MEDS: guaiFENesin/CODEINE 100-10MG ORAL LIQD 5 ML PO PRN (05:41)
[2019-08-05] MEDS: oxyCODONE /ACETAMINOPHEN 5-325MG TAB PO PRN ×2 (05:41→16:34)
[2019-08-05] MEDS: ONDANSETRON 4 MG/2 ML INJ IV PRN ×2 (05:41→16:33)
[2019-08-05 05:43] LABS: BUN/Creatinine Ratio 37; Blood Urea Nitrogen 22 mg/dL (7-17); Hemolysis Index 31
[2019-08-05] MEDS: ARFORMOTEROL 15 MCG/2 ML NEBU IH SCH ×2 (07:51→21:20)
[2019-08-05] MEDS: BUDESONIDE 0.5 MG/2 ML NEBU IH SCH ×2 (07:52→21:20)
[2019-08-05] MEDS: methylPREDNISolone Sod Succinate 125 MG/2 ML INJ IV SCH ×3 (08:36→23:15)
[2019-08-05] MEDS: INSULIN LISPRO 100 UNIT/ML SUB-Q SCH ×7 (08:38→22:00)
[2019-08-05] MEDS: metFORMIN XR 500MG TAB PO SCH (08:45)
[2019-08-05] MEDS: GENVOYA PO SCH (08:49)
--- NOTE | 2019-08-05 11:10 | Progress Note ---
Assessment and Plan Assessment and plan: Sepsis. Etiology sec to pneumonia. MRSA RLL pneumonia. CXR with right basilar consolidation. Sputum--MRSA. Continue antibiotics per ID. vancomycin 11/27. COPD exacerbation. Cont bronchodilators and nebulizers. Acute hypoxemic resp failure. Etiology secondary to above. Pulm following. Diabetes II, uncontrolled. Continue Accu-Cheks and sliding scale insulin. HIV. Continue on Genvoya. Follow up HIV PCR and CD4 count. History Interval history: 63 y/o female with history of HIV currently on genvoya (does not remember her HIV doctor), SX7=812, /VL=54 on 09/12/2017, COPD, diabetes, bipolar disorder, history of rectovaginal fistula and recurrent UTIs, DVT s/p IVC filter, CHF, seizure admitted 07/29/2019 due to 3-day history of SOB and brownish productive cough Hospitalist Physical - Constitutional Vitals: Temp Pulse Resp BP Pulse Ox 97.5 F L 67 17 114/79 94 08/05/19 04:51 08/05/19 04:51 08/05/19 06:41 08/05/19 04:51 08/05/19 04:51 General appearance: Present: no acute distress, well-nourished - EENT Eyes: Present: PERRL, EOM intact ENT: hearing intact, clear oral mucosa, dentition normal - Neck Neck: Present: supple, normal ROM - Respiratory Respiratory effort: normal Respiratory: bilateral: CTA - Cardiovascular Rhythm: regular Heart Sounds: Present: S1 & S2. Absent: gallop, rub - Extremities Extremities: no ischemia, No edema, Full ROM - Abdominal General gastrointestinal: soft, non-tender, non-distended, normal bowel sounds - Integumentary Integumentary: Present: clear, warm, dry - Neurologic Neurologic: CNII-XII intact, moves all extremities Results - Labs CBC & Chem 7: 08/05/19 04:57 08/05/19 04:57 Labs: Laboratory Last Values WBC 5.4 K/mm3 (4.5-11.0) 08/05/19 04:57 RBC 3.41 M/mm3 (3.65-5.03) L 08/05/19 04:57 Hgb 12.2 gm/dl (10.1-14.3) 08/05/19 04:57 Hct 36.0 % (30.3-42.9) 08/05/19 04:57 MCV 105 fl (79-97) H 08/05/19 04:57 MCH 36 pg (28-32) H 08/05/19 04:57 MCHC 34 % (30-34) 08/05/19 04:57 RDW 13.8 % (13.2-15.2) 08/05/19 04:57 Plt Count 192 K/mm3 (140-440) 08/05/19 04:57 Lymph % (Auto) 21.3 % (13.4-35.0) 08/05/19 04:57 [place] % (Auto) 2.8 % (0.0-7.3) 08/05/19 04:57 Eos % (Auto) 0.0 % (0.0-4.3) 08/05/19 04:57 Baso % (Auto) 0.2 % (0.0-1.8) 08/05/19 04:57 Lymph # 1.1 K/mm3 (1.2-5.4) L 08/05/19 04:57 [place] # 0.2 K/mm3 (0.0-0.8) 08/05/19 04:57 Eos # 0.0 K/mm3 (0.0-0.4) 08/05/19 04:57 Baso # 0.0 K/mm3 (0.0-0.1) 08/05/19 04:57 Add Manual Diff Complete 07/30/19 04:39 Total Counted 100 07/30/19 04:39 Seg Neutrophils % 75.7 % (40.0-70.0) H 08/05/19 04:57 Seg Neuts % (Manual) 54.0 % (40.0-70.0) 07/30/19 04:39 Band Neutrophils % 0 % 07/30/19 04:39 Lymphocytes % (Manual) 45.0 % (13.4-35.0) H 07/30/19 04:39 Reactive Lymphs % (Man) 0 % 07/30/19 04:39 Monocytes % (Manual) 1.0 % (0.0-7.3) 07/30/19 04:39 Eosinophils % (Manual) 0 % (0.0-4.3) 07/30/19 04:39 Basophils % (Manual) 0 % (0.0-1.8) 07/30/19 04:39 Metamyelocytes % 0 % 07/30/19 04:39 Myelocytes % 0 % 07/30/19 04:39 Promyelocytes % 0 % 07/30/19 04:39 Blast Cells % 0 % 07/30/19 04:39 Nucleated RBC % Not Reportable 07/30/19 04:39 Seg Neutrophils # 4.1 K/mm3 (1.8-7.7) 08/05/19 04:57 Seg Neutrophils # Man 1.0 K/mm3 (1.8-7.7) L 07/30/19 04:39 Band Neutrophils # 0.0 K/mm3 07/30/19 04:39 Lymphocytes # (Manual) 0.9 K/mm3 (1.2-5.4) L 07/30/19 04:39 Abs React Lymphs (Man) 0.0 K/mm3 07/30/19 04:39 Monocytes # (Manual) 0.0 K/mm3 (0.0-0.8) 07/30/19 04:39 Eosinophils # (Manual) 0.0 K/mm3 (0.0-0.4) 07/30/19 04:39 Basophils # (Manual) 0.0 K/mm3 (0.0-0.1) 07/30/19 04:39 Metamyelocytes # 0.0 K/mm3 07/30/19 04:39 Myelocytes # 0.0 K/mm3 07/30/19 04:39 Promyelocytes # 0.0 K/mm3 07/30/19 04:39 Blast Cells # 0.0 K/mm3 07/30/19 04:39 WBC Morphology Not Reportable 07/30/19 04:39 Hypersegmented Neuts Not Reportable 07/30/19 04:39 Hyposegmented Neuts Not Reportable 07/30/19 04:39 Hypogranular Neuts Not Reportable 07/30/19 04:39 Smudge Cells Not Reportable 07/30/19 04:39 Toxic Granulation Not Reportable 07/30/19 04:39 Toxic Vacuolation Not Reportable 07/30/19 04:39 Dohle Bodies Not Reportable 07/30/19 04:39 Pelger-Huet Anomaly Not Reportable 07/30/19 04:39 Susan Rods Not Reportable 07/30/19 04:39 Platelet Estimate Consistent w auto 07/30/19 04:39 Clumped Platelets Not Reportable 07/30/19 04:39 Plt Clumps, EDTA Not Reportable 07/30/19 04:39 Large Platelets Not Reportable 07/30/19 04:39 Giant Platelets Not Reportable 07/30/19 04:39 Platelet Satelliting Not Reportable 07/30/19 04:39 Plt Morphology Comment Not Reportable 07/30/19 04:39 RBC Morphology Not Reportable 07/30/19 04:39 Dimorphic RBCs Not Reportable 07/30/19 04:39 Polychromasia Not Reportable 07/30/19 04:39 Hypochromasia Not Reportable 07/30/19 04:39 Poikilocytosis Not Reportable 07/30/19 04:39 Anisocytosis Not Reportable 07/30/19 04:39 Microcytosis Not Reportable 07/30/19 04:39 Macrocytosis Not Reportable 07/30/19 04:39 Spherocytes Not Reportable 07/30/19 04:39 Pappenheimer Bodies Not Reportable 07/30/19 04:39 Sickle Cells Not Reportable 07/30/19 04:39 Target Cells Not Reportable 07/30/19 04:39 Tear Drop Cells Not Reportable 07/30/19 04:39 Ovalocytes Not Reportable 07/30/19 04:39 Helmet Cells Not Reportable 07/30/19 04:39 [place] Bodies Not Reportable 07/30/19 04:39 [place] Rings Not Reportable 07/30/19 04:39 [place] Cells Not Reportable 07/30/19 04:39 Bite Cells Not Reportable 07/30/19 04:39 Crenated Cell Not Reportable 07/30/19 04:39 Elliptocytes Not Reportable 07/30/19 04:39 Acanthocytes (Spur) Not Reportable 07/30/19 04:39 Rouleaux Not Reportable 07/30/19 04:39 Hemoglobin C Crystals Not Reportable 07/30/19 04:39 Schistocytes Not Reportable 07/30/19 04:39 Malaria parasites Not Reportable 07/30/19 04:39 [place] Bodies Not Reportable 07/30/19 04:39 Hem Pathologist Commnt No 07/30/19 04:39 PT 13.8 Sec. (12.2-14.9) 07/29/19 11:12 INR 1.07 (0.87-1.13) 07/29/19 11:12 APTT 27.6 Sec. (24.2-36.6) 07/29/19 11:12 POC ABG pH 7.431 (7.35-7.45) 07/29/19 13:29 POC ABG pCO2 42.8 (35-45) 07/29/19 13:29 POC ABG pO2 76 (80-105) L 07/29/19 13:29 POC ABG HCO3 28.4 (22-26 mml/L) 07/29/19 13:29 POC ABG Total CO2 30 (23-27mmol/L) 07/29/19 13:29 POC ABG O2 Sat 95 07/29/19 13:29 POC ABG Base Excess 4 ((-2) - (+3)mmol/L) 07/29/19 13:29 FiO2 21 % 07/29/19 13:29 Sodium 142 mmol/L (137-145) 08/05/19 04:57 Potassium 4.6 mmol/L (3.6-5.0) 08/05/19 04:57 Chloride 106.0 mmol/L (98-107) 08/05/19 04:57 Carbon Dioxide 24 mmol/L (22-30) 08/05/19 04:57 Anion Gap 17 mmol/L 08/05/19 04:57 BUN 22 mg/dL (7-17) H 08/05/19 04:57 Creatinine 0.6 mg/dL (0.7-1.2) L 08/05/19 04:57 Estimated GFR > 60 ml/min 08/05/19 04:57 BUN/Creatinine Ratio 37 % 08/05/19 04:57 Glucose 113 mg/dL (65-100) H 08/05/19 04:57 POC Glucose 91 (70-105) 08/05/19 07:44 Hemoglobin A1c 9.0 % (4-6) H 07/29/19 11:26 Calcium 8.0 mg/dL (8.4-10.2) L 08/05/19 04:57 Magnesium 2.30 mg/dL (1.7-2.3) 08/02/19 07:16 Total Bilirubin < 0.20 mg/dL (0.1-1.2) 07/30/19 04:39 AST 10 units/L (5-40) 07/30/19 04:39 ALT 6 units/L (7-56) L 07/30/19 04:39 Alkaline Phosphatase 129 units/L (35-129) 07/30/19 04:39 Troponin T < 0.010 ng/mL (0.00-0.029) 07/29/19 11:26 NT-Pro-B Natriuret Pep 79.54 pg/mL (0-900) 07/29/19 11:26 Total Protein 7.7 g/dL (6.3-8.2) 07/30/19 04:39 Albumin 4.0 g/dL (3.9-5) 07/30/19 04:39 Albumin/Globulin Ratio 1.1 % 07/30/19 04:39 Procalcitonin < 0.05 ng/mL (<0.15) 07/30/19 23:31 Urine Color Straw (Yellow) 07/30/19 19:25 Urine Turbidity Clear (Clear) 07/30/19 19:25 Urine pH 5.0 (5.0-7.0) 07/30/19 19:25 Ur Specific [place] 1.015 (1.003-1.030) 07/30/19 19:25 Urine Protein <15 mg/dl mg/dL (Negative) 07/30/19 19:25 Urine Glucose (UA) >=500 mg/dL (Negative) 07/30/19 19:25 Urine Ketones Neg mg/dL (Negative) 07/30/19 19:25 Urine Blood Sm (Negative) 07/30/19 19:25 Urine Nitrite Neg (Negative) 07/30/19 19:25 Urine Bilirubin Neg (Negative) 07/30/19 19:25 Urine Urobilinogen < 2.0 mg/dL (<2.0) 07/30/19 19:25 Ur Leukocyte Esterase Neg (Negative) 07/30/19 19:25 Urine WBC (Auto) 1.0 /HPF (0.0-6.0) 07/30/19 19:25 Urine RBC (Auto) 1.0 /HPF (0.0-6.0) 07/30/19 19:25 U Epithel Cells (Auto) 1.0 /HPF (0-13.0) 07/30/19 19:25 Vancomycin Trough 16.1 ug/mL (5.0-20.0) 08/04/19 05:11 HIV-1 RNA PCR copies/ml 33 Copies/mL H 07/30/19 23:31 HIV-1 RNA (PCR) log 1.52 Log cps/mL H 07/30/19 23:31 Influenza A (Rapid) Negative (Negative) 07/30/19 19:20 Influenza A (RT-PCR) Negative (Negative) 07/30/19 19:20 Influenza B (Rapid) Negative (Negative) 07/30/19 19:20 Influenza B (RT-PCR) Negative (Negative) 07/30/19 19:20 Active Medications - Current Medications Current Medications: Generic Name Dose Route Start Last Admin Trade Name Freq PRN Reason Stop Dose Admin Acetaminophen 650 mg 07/29/19 17:39 Tylenol PO Q4H PRN Pain MILD(1-3)/Fever >100.5/MOYER Albuterol 2.5 mg 07/29/19 18:16 Proventil IH Q4H PRN Shortness Of Breath Albuterol/Ipratropium 1 ampul 08/01/19 14:00 08/05/19 07:51 Duoneb *Not For Prn Use* IH 1 ampul Q6HRT SKYLER Administration Arformoterol Tartrate 15 mcg 08/03/19 20:00 08/05/19 07:51 Brovana Nebu IH 15 mcg Q12HRT SKYLER Administration Budesonide 0.5 mg 08/03/19 20:00 08/05/19 07:52 Pulmicort IH 0.5 mg Q12HRT SKYLER Administration Enoxaparin Sodium 40 mg 07/30/19 22:00 08/04/19 21:45 Enoxaparin SUB-Q 40 mg QDAY@2200 SKYLER Administration Guaifenesin 600 mg 08/01/19 12:00 08/04/19 21:45 Mucinex Er PO 600 mg BID SKYLER Administration Vancomycin HCl 1,250 mg/ 275 mls @ 166.667 mls/hr 08/03/19 06:00 08/05/19 05:24 Sodium Chloride IV 166.667 mls/hr Q12H SKYLER Administration Insulin Glargine 35 units 07/31/19 12:00 08/04/19 22:16 Lantus SUB-Q 35 units Q12HR SKYLER Administration Insulin Human Lispro 0 unit 07/29/19 19:55 08/05/19 10:13 Humalog SUB-Q Not Given ACHS [facility] Protocol Insulin Human Lispro 5 unit 07/30/19 11:30 08/05/19 08:38 Humalog SUB-Q 5 unit AC SKYLER Administration Metformin HCl 500 mg 07/30/19 08:00 08/05/19 08:45 Glucophage Xr PO 500 mg QDDIAB SKYLER Administration Methylprednisolone Sodium Succinate 60 mg 08/03/19 15:30 08/05/19 08:36 Solu-Medrol IV 60 mg Q8H SKYLER Administration Miscellaneous Medication 1 tab 07/30/19 08:00 08/05/19 08:49 Genvoya Tablet PO 1 tab DAILY@0800 SKYLER Administration Ondansetron HCl 4 mg 07/29/19 17:39 08/05/19 05:41 Zofran IV 4 mg Q8H PRN Administration Nausea And Vomiting Oxycodone/Acetaminophen 1 tab 07/29/19 16:54 08/05/19 05:41 Percocet 5/325 PO 1 tab Q6H PRN Administration Pain, Moderate (4-6) Polyethylene Glycol 17 gm 07/31/19 20:00 08/04/19 09:22 Miralax 3350 PO 17 gm QDAY SKYLER Administration Pseudoephedrine/Acetam/Chlorphenir 10 ml 08/01/19 11:40 08/05/19 05:41 Robitussin Ac PO 10 ml Q4H PRN Administration Cough Quetiapine Fumarate 200 mg 07/29/19 22:00 08/04/19 21:45 Seroquel PO 200 mg QHS SKYLER Administration Sodium Chloride 10 ml 07/29/19 22:00 08/04/19 21:44 Sodium Chloride Flush Syringe 10 Ml IV 10 ml BID SKYLER Administration Sodium Chloride 10 ml 07/29/19 16:54 Sodium Chloride Flush Syringe 10 Ml IV PRN PRN LINE FLUSH Nutrition/Malnutrition Assess - Dietary Evaluation Nutrition/Malnutrition Findings: Nutrition Notes Start: 08/03/19 10:41 Freq: Status: Active Protocol: Document 08/03/19 10:41 CT (Rec: 08/03/19 10:42 CT [id number]) Co-Sign 08/03/19 10:41 LP Nutrition Notes Need for Assessment generated from: Low BMI Initial or Follow up Brief Note Weight 99.6 kg Subjective/Other Information Pt ABW is 99.6 kg, updated chart Nutrition Intervention Revisit per MD consult or patient Sign Off request:
--- NOTE | 2019-08-05 11:44 | Progress Note ---
Assessment and Plan Acute asthma exacerbation Acute respiratory failure with hypoxia Right lower lobe pneumonia HIV / AIDS HTN (hypertension) IDDM (insulin dependent diabetes mellitus) Morbid obesity with BMI of 40.0-44.9, adult Seizure disorder - continue supplemental oxygen as needed to keep O2 sat's > 90% - continue bronchodilators with pulmonary hygiene per RT (add Brovana) - continue systemic steroids with slow taper (tapered to 60 mg q8h) - added inhaled corticosteroids - complete AB's per ID rec's - PT/OT as tolerated - mobility protocols for pressure ulcer prophylaxis - GI & VTE prophylaxis - continued tobacco abstinence counseled at bedside - Flu & Pneumovax addressed per protocol - weight loss counseled - continue other care per attending / other consultants Subjective Date of service: 08/05/19 Principal diagnosis: Ac. Asthma exacerbation; Ac. hypoxemic Resp failure; RLL PNA; HIV / AIDS Interval history: Patient is seen today for: Acute asthma exacerbation; Acute hypoxemic respi ratory failure; RLL pneumonia; HIV / AIDS; HTN; IDDM; Morbid obesity; Seizure disorder Seen and examined at bedside; 24hour events reviewed; nursing and respiratory care staff consulted; no adverse overnight events reported to me; resting peacefully in bed; denies acute chest pains or palpitations; still wheezing; coughing up brownish phlegm intermittently; No N/V/F/C Objective Vital Signs - 12hr 08/05/19 08/05/19 08/05/19 04:51 05:41 06:41 Temperature 97.5 F L Pulse Rate 67 Respiratory 20 18 17 Rate Blood Pressure 114/79 O2 Sat by Pulse 94 Oximetry Constitutional: no acute distress, alert, other (elderly obese AAF normocephalic with mildly increased resp effort at rest) Eyes: non-icteric ENT: oropharynx moist, other (Mallampati 3) Neck: supple, no JVD, other (+ large neck circumference) Effort: mildly labored Ascultation: Bilateral: wheezes (expiratory), rhonchi Percussion: Bilateral: not dull Cardiovascular: regular rate and rhythm Gastrointestinal: normoactive bowel sounds, soft, non-tender, non-distended Integumentary: normal Extremities: no cyanosis, no edema, pulses normal, no ischemia or petechiae Neurologic: normal mental status, non-focal exam, pupils equal and round, CN II- XII normal, motor strength normal and Psychiatric: mood appropriate, affect normal CBC and BMP: 08/05/19 04:57 08/05/19 04:57 ABG, PT/INR, D-dimer: ABG POC ABG pH 7.431 (7.35-7.45) 07/29/19 13:29 POC ABG pCO2 42.8 (35-45) 07/29/19 13:29 POC ABG pO2 76 (80-105) L 07/29/19 13:29 POC ABG HCO3 28.4 (22-26 mml/L) 07/29/19 13:29 POC ABG Total CO2 30 (23-27mmol/L) 07/29/19 13:29 POC ABG O2 Sat 95 07/29/19 13:29 PT/INR, D-dimer PT 13.8 Sec. (12.2-14.9) 07/29/19 11:12 INR 1.07 (0.87-1.13) 07/29/19 11:12 Abnormal lab findings: Abnormal Labs 07/29/19 07/29/19 07/29/19 11:26 11:26 11:26 WBC 3.9 L RBC 3.40 L MCV 106 H MCH 36 H MCHC 35 H Lymph % (Auto) 42.4 H [place] % (Auto) 9.8 H Lymph # Seg Neutrophils % Lymphocytes % (Manual) Seg Neutrophils # 1.7 L Seg Neutrophils # Man Lymphocytes # (Manual) POC ABG pO2 Potassium 3.0 L BUN Creatinine 0.5 L Glucose 227 H POC Glucose Hemoglobin A1c 9.0 H Calcium ALT 6 L HIV-1 RNA PCR copies/ml HIV-1 RNA (PCR) log 07/29/19 07/29/19 07/29/19 13:29 17:40 19:56 WBC RBC MCV MCH MCHC Lymph % (Auto) [place] % (Auto) Lymph # Seg Neutrophils % Lymphocytes % (Manual) Seg Neutrophils # Seg Neutrophils # Man Lymphocytes # (Manual) POC ABG pO2 76 L Potassium BUN Creatinine Glucose POC Glucose 466 H 404 H Hemoglobin A1c Calcium ALT HIV-1 RNA PCR copies/ml HIV-1 RNA (PCR) log 07/29/19 07/29/19 07/30/19 22:07 22:37 04:39 WBC 1.9 L* RBC 3.54 L MCV 106 H MCH 37 H MCHC Lymph % (Auto) [place] % (Auto) Lymph # Seg Neutrophils % Lymphocytes % (Manual) 45.0 H Seg Neutrophils # Seg Neutrophils # Man 1.0 L Lymphocytes # (Manual) 0.9 L POC ABG pO2 Potassium BUN Creatinine Glucose POC Glucose 280 H 220 H Hemoglobin A1c Calcium ALT HIV-1 RNA PCR copies/ml HIV-1 RNA (PCR) log 07/30/19 07/30/19 07/30/19 04:39 08:16 11:25 WBC RBC MCV MCH MCHC Lymph % (Auto) [place] % (Auto) Lymph # Seg Neutrophils % Lymphocytes % (Manual) Seg Neutrophils # Seg Neutrophils # Man Lymphocytes # (Manual) POC ABG pO2 Potassium BUN 19 H Creatinine 0.6 L Glucose 236 H POC Glucose 262 H 294 H Hemoglobin A1c Calcium ALT 6 L HIV-1 RNA PCR copies/ml HIV-1 RNA (PCR) log 07/30/19 07/30/19 07/30/19 16:58 21:44 23:31 WBC RBC MCV MCH MCHC Lymph % (Auto) [place] % (Auto) Lymph # Seg Neutrophils % Lymphocytes % (Manual) Seg Neutrophils # Seg Neutrophils # Man Lymphocytes # (Manual) POC ABG pO2 Potassium BUN Creatinine Glucose POC Glucose 308 H 299 H Hemoglobin A1c Calcium ALT HIV-1 RNA PCR copies/ml 33 H HIV-1 RNA (PCR) log 1.52 H 07/31/19 07/31/19 07/31/19 04:50 07:59 12:26 WBC RBC 3.34 L MCV 107 H MCH 36 H MCHC Lymph % (Auto) [place] % (Auto) Lymph # 0.9 L Seg Neutrophils % 78.1 H Lymphocytes % (Manual) Seg Neutrophils # Seg Neutrophils # Man Lymphocytes # (Manual) POC ABG pO2 Potassium BUN Creatinine Glucose POC Glucose 226 H 185 H Hemoglobin A1c Calcium ALT HIV-1 RNA PCR copies/ml HIV-1 RNA (PCR) log 07/31/19 07/31/19 08/01/19 17:05 22:13 08:12 WBC RBC MCV MCH MCHC Lymph % (Auto) [place] % (Auto) Lymph # Seg Neutrophils % Lymphocytes % (Manual) Seg Neutrophils # Seg Neutrophils # Man Lymphocytes # (Manual) POC ABG pO2 Potassium BUN Creatinine Glucose POC Glucose 196 H 279 H 146 H Hemoglobin A1c Calcium ALT HIV-1 RNA PCR copies/ml HIV-1 RNA (PCR) log 08/01/19 08/01/19 08/01/19 16:31 17:35 20:51 WBC RBC MCV MCH MCHC Lymph % (Auto) [place] % (Auto) Lymph # Seg Neutrophils % Lymphocytes % (Manual) Seg Neutrophils # Seg Neutrophils # Man Lymphocytes # (Manual) POC ABG pO2 Potassium BUN Creatinine Glucose POC Glucose 44 L 173 H 203 H Hemoglobin A1c Calcium ALT HIV-1 RNA PCR copies/ml HIV-1 RNA (PCR) log 08/02/19 08/02/19 08/02/19 07:16 11:38 21:25 WBC RBC MCV MCH MCHC Lymph % (Auto) [place] % (Auto) Lymph # Seg Neutrophils % Lymphocytes % (Manual) Seg Neutrophils # Seg Neutrophils # Man Lymphocytes # (Manual) POC ABG pO2 Potassium BUN 20 H Creatinine Glucose POC Glucose 255 H 160 H Hemoglobin A1c Calcium ALT HIV-1 RNA PCR copies/ml HIV-1 RNA (PCR) log 08/03/19 08/03/19 08/04/19 11:26 21:26 05:11 WBC RBC 3.35 L MCV 106 H MCH 36 H MCHC Lymph % (Auto) [place] % (Auto) Lymph # Seg Neutrophils % Lymphocytes % (Manual) Seg Neutrophils # Seg Neutrophils # Man Lymphocytes # (Manual) POC ABG pO2 Potassium BUN Creatinine Glucose POC Glucose 148 H 234 H Hemoglobin A1c Calcium ALT HIV-1 RNA PCR copies/ml HIV-1 RNA (PCR) log 08/04/19 08/04/19 08/04/19 11:41 16:41 22:09 WBC RBC MCV MCH MCHC Lymph % (Auto) [place] % (Auto) Lymph # Seg Neutrophils % Lymphocytes % (Manual) Seg Neutrophils # Seg Neutrophils # Man Lymphocytes # (Manual) POC ABG pO2 Potassium BUN Creatinine Glucose POC Glucose 176 H 196 H 222 H Hemoglobin A1c Calcium ALT HIV-1 RNA PCR copies/ml HIV-1 RNA (PCR) log 08/05/19 08/05/19 04:57 04:57 WBC RBC 3.41 L MCV 105 H MCH 36 H MCHC Lymph % (Auto) [place] % (Auto) Lymph # 1.1 L Seg Neutrophils % 75.7 H Lymphocytes % (Manual) Seg Neutrophils # Seg Neutrophils # Man Lymphocytes # (Manual) POC ABG pO2 Potassium BUN 22 H Creatinine 0.6 L Glucose 113 H POC Glucose Hemoglobin A1c Calcium 8.0 L ALT HIV-1 RNA PCR copies/ml HIV-1 RNA (PCR) log Allied health notes reviewed: nursing
[2019-08-05] MEDS: INSULIN GLARGINE 100 UNITS/ML SUB-Q SCH ×2 (12:09→22:02)
[2019-08-05] MEDS: POLYETHYLENE GLYCOL 3350 17 GM POWDER PO SCH (12:12)
[2019-08-05] MEDS: guaiFENesin ER 600 MG TAB PO SCH ×2 (12:12→22:01)
--- NOTE | 2019-08-05 12:31 | Progress Note ---
Assessment and Plan Cultures: Blood culture: no growth thus far Influenza PCR: negative sputum culture: MRSA Assessment: 63 y/o female with history of HIV currently on genvoya (does not remember her HIV doctor), NP9=722, /VL=54 on 09/12/2017, COPD, diabetes, bipolar disorder, history of rectovaginal fistula and recurrent UTIs, DVT s/p IVC filter, CHF, seizure admitted 07/29/2019 due to 3-day history of SOB and brownish productive cough: 1) Sepsis: present on admission with tachycardia, neutropenia; source likely pne umonia. 2) MRSA RLL pneumonia with COPD exacerbation vs CAP vs opportunistic less likely. CXR with right basilar consolidation. Sputum growing MRSA. Repeat CXR 08/03/2019, showing improvement. 3) Acute hypoxemic resp failure: pulm following. 4) Diabetes: uncontrolled 5) HIV: on Genvoya. Reportedly compliant, so OI less likely. HIV RNA PCR is 33. CD4 count pending. Recommendations: Continue IV Vancomycin for MRSA pneumonia, Day 4 of 7 (not a candidate for Linezolid since she is on Zoloft and not a candidate for doxycycline due to tetracycline allergy) PICC line awaited. Discussed with Case management yesterday, set up IV Vancomycin at home ending 08/08/2019 if discharged prior to that date. continue Genvoya. HIV RNA PCR is 33. CD4 count pending. Ori Briones MD, FACP [facility] C: [phone] O: [phone] F: [phone] Subjective Date of service: 08/05/19 Principal diagnosis: Ac. Asthma exacerbation; Ac. hypoxemic Resp failure; RLL PNA; HIV / AIDS Interval history: No fever. Breathing continues to improve. Off oxygen. Awaiting PICC line. Objective - Exam Narrative Exam: Physical Exam: Constitutional: Alert, cooperative. No acute distress Head, Ears, Nose: Normocephalic, atraumatic. External ears, nose normal Eyes: Conjunctivae/corneas clear. No icterus. No ptosis. Neck: Supple, no meningeal signs Cardiovascular: S1, S2 normal. Respiratory: diffuse b/l wheeze + GI: Soft, non-tender; bowel sounds normal. No peritoneal signs Musculoskeletal: No pedal edema, no cyanosis. Skin: No rash or abscess Hem/Lymphatic: No palpable cervical or supraclavicular nodes. No lymphangitis Psych: Mood ok. Affect normal Neurological: Awake, alert, oriented. No gross abnormality - Constitutional Vitals: Vital Signs Temp Pulse Resp BP Pulse Ox 97.5 F L 70 20 114/79 97 08/05/19 04:51 08/05/19 07:52 08/05/19 07:52 08/05/19 04:51 08/05/19 07:52 Temperature -Last 24 Hours Temperature 97.5 F Temperature 97.8 F Temperature 98.0 F - Labs CBC & Chem 7: 08/05/19 04:57 08/05/19 04:57 Labs: Abnormal lab results 07/30/19 08/04/19 08/04/19 Range/Units 23:31 16:41 22:09 RBC (3.65-5.03) M/mm3 MCV (79-97) fl MCH (28-32) pg Lymph # (1.2-5.4) K/mm3 Seg Neutrophils % (40.0-70.0) % BUN (7-17) mg/dL Creatinine (0.7-1.2) mg/dL Glucose (65-100) mg/dL POC Glucose 196 H 222 H (70-105) Calcium (8.4-10.2) mg/dL HIV-1 RNA PCR copies/ml 33 H Copies/mL HIV-1 RNA (PCR) log 1.52 H Log cps/mL 08/05/19 08/05/19 08/05/19 Range/Units 04:57 04:57 11:47 RBC 3.41 L (3.65-5.03) M/mm3 MCV 105 H (79-97) fl MCH 36 H (28-32) pg Lymph # 1.1 L (1.2-5.4) K/mm3 Seg Neutrophils % 75.7 H (40.0-70.0) % BUN 22 H (7-17) mg/dL Creatinine 0.6 L (0.7-1.2) mg/dL Glucose 113 H (65-100) mg/dL POC Glucose 186 H (70-105) Calcium 8.0 L (8.4-10.2) mg/dL HIV-1 RNA PCR copies/ml Copies/mL HIV-1 RNA (PCR) log Log cps/mL
[2019-08-05] MEDS: QUEtiapine 200 MG TAB PO SCH (22:01)
[2019-08-05] MEDS: ENOXAPARIN 40 MG/0.4 ML INJ SUB-Q SCH (22:02)
[2019-08-06] MEDS: VANCOMYCIN 1,250 MG in SODIUM CHLORIDE 0.9% 250ML 250 ML IV SCH ×2 (05:56→19:18)
[2019-08-06] MEDS: methylPREDNISolone Sod Succinate 125 MG/2 ML INJ IV SCH ×2 (07:43→17:04)
[2019-08-06] MEDS: ARFORMOTEROL 15 MCG/2 ML NEBU IH SCH ×2 (07:54→21:25)
[2019-08-06] MEDS: BUDESONIDE 0.5 MG/2 ML NEBU IH SCH ×2 (07:54→21:25)
[2019-08-06] MEDS: IPRATROPIUM/ALBUTEROL SULFATE 3 ML AMPUL.NEB IH SCH ×3 (07:54→21:25)
[2019-08-06] MEDS: oxyCODONE /ACETAMINOPHEN 5-325MG TAB PO PRN ×2 (08:15→21:39)
[2019-08-06] MEDS: ONDANSETRON 4 MG/2 ML INJ IV PRN ×2 (08:15→21:39)
[2019-08-06] MEDS: INSULIN LISPRO 100 UNIT/ML SUB-Q SCH ×7 (08:45→21:51)
[2019-08-06 09:07] LABS: Basophils % (Auto) 0.2 % (0.0-1.8); Eosinophils % (Auto) 0.1 % (0.0-4.3); Hematocrit 35.9 % (30.3-42.9); Hemoglobin 12.4 gm/dl (10.1-14.3); Lymphocytes # (Auto) 1.5 K/mm3 (1.2-5.4); Lymphocytes % (Auto) 27.4 % (13.4-35.0); Mean Corpuscular HGB Conc 34 % (30-34); Mean Corpuscular Volume 106 fl (79-97); Monocytes # (Auto) 0.3 K/mm3 (0.0-0.8); Monocytes % (Auto) 5.6 % (0.0-7.3); Red Blood Count 3.39 M/mm3 (3.65-5.03); Red Cell Distribution Width 13.9 % (13.2-15.2)
[2019-08-06 09:26] LABS: BUN/Creatinine Ratio 42; Blood Urea Nitrogen 25 mg/dL (7-17); Calcium 7.7 mg/dL (8.4-10.2); Hemolysis Index 27
[2019-08-06 09:30] LABS: Platelet Count 94 K/mm3 (140-440)
[2019-08-06] MEDS: guaiFENesin ER 600 MG TAB PO SCH ×2 (09:44→21:39)
[2019-08-06] MEDS: metFORMIN XR 500MG TAB PO SCH (09:44)
[2019-08-06] MEDS: GENVOYA PO SCH (09:45)
[2019-08-06] MEDS: POLYETHYLENE GLYCOL 3350 17 GM POWDER PO SCH (09:45)
[2019-08-06] MEDS: guaiFENesin/CODEINE 100-10MG ORAL LIQD 5 ML PO PRN (09:50)
--- NOTE | 2019-08-06 10:06 | Progress Note ---
Assessment and Plan Assessment and plan: Sepsis. Etiology sec to pneumonia. MRSA RLL pneumonia. CXR with right basilar consolidation. Sputum--MRSA. Continue antibiotics per ID. vancomycin 12/27. COPD exacerbation. Cont bronchodilators and nebulizers. Acute hypoxemic resp failure. Etiology secondary to above. Pulm following. Diabetes II, uncontrolled. Continue Accu-Cheks and sliding scale insulin. HIV. Continue on Genvoya. Follow up HIV PCR and CD4 count. History Interval history: 63 y/o female with history of HIV currently on genvoya (does not remember her HIV doctor), IN7=979, /VL=54 on 09/12/2017, COPD, diabetes, bipolar disorder, history of rectovaginal fistula and recurrent UTIs, DVT s/p IVC filter, CHF, seizure admitted 07/29/2019 due to 3-day history of SOB and brownish productive cough Hospitalist Physical - Constitutional Vitals: Temp Pulse Resp BP Pulse Ox 97.6 F 66 20 148/87 97 08/06/19 05:29 08/06/19 08:25 08/06/19 08:25 08/06/19 05:29 08/06/19 07:54 General appearance: Present: no acute distress, well-nourished - EENT Eyes: Present: PERRL, EOM intact ENT: hearing intact, clear oral mucosa, dentition normal - Neck Neck: Present: supple, normal ROM - Respiratory Respiratory effort: normal Respiratory: bilateral: CTA - Cardiovascular Rhythm: regular Heart Sounds: Present: S1 & S2. Absent: gallop, rub - Extremities Extremities: no ischemia, No edema, Full ROM - Abdominal General gastrointestinal: soft, non-tender, non-distended, normal bowel sounds - Integumentary Integumentary: Present: clear, warm, dry - Neurologic Neurologic: CNII-XII intact, moves all extremities Results - Labs CBC & Chem 7: 08/06/19 08:15 08/06/19 08:15 Labs: Laboratory Last Values WBC 5.5 K/mm3 (4.5-11.0) 08/06/19 08:15 RBC 3.39 M/mm3 (3.65-5.03) L 08/06/19 08:15 Hgb 12.4 gm/dl (10.1-14.3) 08/06/19 08:15 Hct 35.9 % (30.3-42.9) 08/06/19 08:15 MCV 106 fl (79-97) H 08/06/19 08:15 MCH 37 pg (28-32) H 08/06/19 08:15 MCHC 34 % (30-34) 08/06/19 08:15 RDW 13.9 % (13.2-15.2) 08/06/19 08:15 Plt Count 94 K/mm3 (140-440) L 08/06/19 08:15 Lymph % (Auto) 27.4 % (13.4-35.0) 08/06/19 08:15 [place] % (Auto) 5.6 % (0.0-7.3) 08/06/19 08:15 Eos % (Auto) 0.1 % (0.0-4.3) 08/06/19 08:15 Baso % (Auto) 0.2 % (0.0-1.8) 08/06/19 08:15 Lymph # 1.5 K/mm3 (1.2-5.4) 08/06/19 08:15 [place] # 0.3 K/mm3 (0.0-0.8) 08/06/19 08:15 Eos # 0.0 K/mm3 (0.0-0.4) 08/06/19 08:15 Baso # 0.0 K/mm3 (0.0-0.1) 08/06/19 08:15 Add Manual Diff Complete 07/30/19 04:39 Total Counted 100 07/30/19 04:39 Seg Neutrophils % 66.7 % (40.0-70.0) 08/06/19 08:15 Seg Neuts % (Manual) 54.0 % (40.0-70.0) 07/30/19 04:39 Band Neutrophils % 0 % 07/30/19 04:39 Lymphocytes % (Manual) 45.0 % (13.4-35.0) H 07/30/19 04:39 Reactive Lymphs % (Man) 0 % 07/30/19 04:39 Monocytes % (Manual) 1.0 % (0.0-7.3) 07/30/19 04:39 Eosinophils % (Manual) 0 % (0.0-4.3) 07/30/19 04:39 Basophils % (Manual) 0 % (0.0-1.8) 07/30/19 04:39 Metamyelocytes % 0 % 07/30/19 04:39 Myelocytes % 0 % 07/30/19 04:39 Promyelocytes % 0 % 07/30/19 04:39 Blast Cells % 0 % 07/30/19 04:39 Nucleated RBC % Not Reportable 07/30/19 04:39 Seg Neutrophils # 3.6 K/mm3 (1.8-7.7) 08/06/19 08:15 Seg Neutrophils # Man 1.0 K/mm3 (1.8-7.7) L 07/30/19 04:39 Band Neutrophils # 0.0 K/mm3 07/30/19 04:39 Lymphocytes # (Manual) 0.9 K/mm3 (1.2-5.4) L 07/30/19 04:39 Abs React Lymphs (Man) 0.0 K/mm3 07/30/19 04:39 Monocytes # (Manual) 0.0 K/mm3 (0.0-0.8) 07/30/19 04:39 Eosinophils # (Manual) 0.0 K/mm3 (0.0-0.4) 07/30/19 04:39 Basophils # (Manual) 0.0 K/mm3 (0.0-0.1) 07/30/19 04:39 Metamyelocytes # 0.0 K/mm3 07/30/19 04:39 Myelocytes # 0.0 K/mm3 07/30/19 04:39 Promyelocytes # 0.0 K/mm3 07/30/19 04:39 Blast Cells # 0.0 K/mm3 07/30/19 04:39 WBC Morphology Not Reportable 07/30/19 04:39 Hypersegmented Neuts Not Reportable 07/30/19 04:39 Hyposegmented Neuts Not Reportable 07/30/19 04:39 Hypogranular Neuts Not Reportable 07/30/19 04:39 Smudge Cells Not Reportable 07/30/19 04:39 Toxic Granulation Not Reportable 07/30/19 04:39 Toxic Vacuolation Not Reportable 07/30/19 04:39 Dohle Bodies Not Reportable 07/30/19 04:39 Pelger-Huet Anomaly Not Reportable 07/30/19 04:39 Susan Rods Not Reportable 07/30/19 04:39 Platelet Estimate Consistent w auto 07/30/19 04:39 Clumped Platelets Not Reportable 07/30/19 04:39 Plt Clumps, EDTA Not Reportable 07/30/19 04:39 Large Platelets Not Reportable 07/30/19 04:39 Giant Platelets Not Reportable 07/30/19 04:39 Platelet Satelliting Not Reportable 07/30/19 04:39 Plt Morphology Comment Not Reportable 07/30/19 04:39 RBC Morphology Not Reportable 07/30/19 04:39 Dimorphic RBCs Not Reportable 07/30/19 04:39 Polychromasia Not Reportable 07/30/19 04:39 Hypochromasia Not Reportable 07/30/19 04:39 Poikilocytosis Not Reportable 07/30/19 04:39 Anisocytosis Not Reportable 07/30/19 04:39 Microcytosis Not Reportable 07/30/19 04:39 Macrocytosis Not Reportable 07/30/19 04:39 Spherocytes Not Reportable 07/30/19 04:39 Pappenheimer Bodies Not Reportable 07/30/19 04:39 Sickle Cells Not Reportable 07/30/19 04:39 Target Cells Not Reportable 07/30/19 04:39 Tear Drop Cells Not Reportable 07/30/19 04:39 Ovalocytes Not Reportable 07/30/19 04:39 Helmet Cells Not Reportable 07/30/19 04:39 [place] Bodies Not Reportable 07/30/19 04:39 [place] Rings Not Reportable 07/30/19 04:39 [place] Cells Not Reportable 07/30/19 04:39 Bite Cells Not Reportable 07/30/19 04:39 Crenated Cell Not Reportable 07/30/19 04:39 Elliptocytes Not Reportable 07/30/19 04:39 Acanthocytes (Spur) Not Reportable 07/30/19 04:39 Rouleaux Not Reportable 07/30/19 04:39 Hemoglobin C Crystals Not Reportable 07/30/19 04:39 Schistocytes Not Reportable 07/30/19 04:39 Malaria parasites Not Reportable 07/30/19 04:39 [place] Bodies Not Reportable 07/30/19 04:39 Hem Pathologist Commnt No 07/30/19 04:39 PT 13.8 Sec. (12.2-14.9) 07/29/19 11:12 INR 1.07 (0.87-1.13) 07/29/19 11:12 APTT 27.6 Sec. (24.2-36.6) 07/29/19 11:12 POC ABG pH 7.431 (7.35-7.45) 07/29/19 13:29 POC ABG pCO2 42.8 (35-45) 07/29/19 13:29 POC ABG pO2 76 (80-105) L 07/29/19 13:29 POC ABG HCO3 28.4 (22-26 mml/L) 07/29/19 13:29 POC ABG Total CO2 30 (23-27mmol/L) 07/29/19 13:29 POC ABG O2 Sat 95 07/29/19 13:29 POC ABG Base Excess 4 ((-2) - (+3)mmol/L) 07/29/19 13:29 FiO2 21 % 07/29/19 13:29 Sodium 139 mmol/L (137-145) 08/06/19 08:15 Potassium 4.5 mmol/L (3.6-5.0) 08/06/19 08:15 Chloride 104.5 mmol/L (98-107) 08/06/19 08:15 Carbon Dioxide 22 mmol/L (22-30) 08/06/19 08:15 Anion Gap 17 mmol/L 08/06/19 08:15 BUN 25 mg/dL (7-17) H 08/06/19 08:15 Creatinine 0.6 mg/dL (0.7-1.2) L 08/06/19 08:15 Estimated GFR > 60 ml/min 08/06/19 08:15 BUN/Creatinine Ratio 42 % 08/06/19 08:15 Glucose 94 mg/dL (65-100) 08/06/19 08:15 POC Glucose 94 (70-105) 08/06/19 07:59 Hemoglobin A1c 9.0 % (4-6) H 07/29/19 11:26 Calcium 7.7 mg/dL (8.4-10.2) L 08/06/19 08:15 Magnesium 2.30 mg/dL (1.7-2.3) 08/02/19 07:16 Total Bilirubin < 0.20 mg/dL (0.1-1.2) 07/30/19 04:39 AST 10 units/L (5-40) 07/30/19 04:39 ALT 6 units/L (7-56) L 07/30/19 04:39 Alkaline Phosphatase 129 units/L (35-129) 07/30/19 04:39 Troponin T < 0.010 ng/mL (0.00-0.029) 07/29/19 11:26 NT-Pro-B Natriuret Pep 79.54 pg/mL (0-900) 07/29/19 11:26 Total Protein 7.7 g/dL (6.3-8.2) 07/30/19 04:39 Albumin 4.0 g/dL (3.9-5) 07/30/19 04:39 Albumin/Globulin Ratio 1.1 % 07/30/19 04:39 Procalcitonin < 0.05 ng/mL (<0.15) 07/30/19 23:31 Urine Color Straw (Yellow) 07/30/19 19:25 Urine Turbidity Clear (Clear) 07/30/19 19:25 Urine pH 5.0 (5.0-7.0) 07/30/19 19:25 Ur Specific [place] 1.015 (1.003-1.030) 07/30/19 19:25 Urine Protein <15 mg/dl mg/dL (Negative) 07/30/19 19:25 Urine Glucose (UA) >=500 mg/dL (Negative) 07/30/19 19:25 Urine Ketones Neg mg/dL (Negative) 07/30/19 19:25 Urine Blood Sm (Negative) 07/30/19 19:25 Urine Nitrite Neg (Negative) 07/30/19 19:25 Urine Bilirubin Neg (Negative) 07/30/19 19:25 Urine Urobilinogen < 2.0 mg/dL (<2.0) 07/30/19 19:25 Ur Leukocyte Esterase Neg (Negative) 07/30/19 19:25 Urine WBC (Auto) 1.0 /HPF (0.0-6.0) 07/30/19 19:25 Urine RBC (Auto) 1.0 /HPF (0.0-6.0) 07/30/19 19:25 U Epithel Cells (Auto) 1.0 /HPF (0-13.0) 07/30/19 19:25 Vancomycin Trough 16.1 ug/mL (5.0-20.0) 08/04/19 05:11 HIV-1 RNA PCR copies/ml 33 Copies/mL H 07/30/19 23:31 HIV-1 RNA (PCR) log 1.52 Log cps/mL H 07/30/19 23:31 Influenza A (Rapid) Negative (Negative) 07/30/19 19:20 Influenza A (RT-PCR) Negative (Negative) 07/30/19 19:20 Influenza B (Rapid) Negative (Negative) 07/30/19 19:20 Influenza B (RT-PCR) Negative (Negative) 07/30/19 19:20 Active Medications - Current Medications Current Medications: Generic Name Dose Route Start Last Admin Trade Name Freq PRN Reason Stop Dose Admin Acetaminophen 650 mg 07/29/19 17:39 Tylenol PO Q4H PRN Pain MILD(1-3)/Fever >100.5/MOYER Albuterol 2.5 mg 07/29/19 18:16 Proventil IH Q4H PRN Shortness Of Breath Albuterol/Ipratropium 1 ampul 08/06/19 08:00 08/06/19 07:54 Duoneb *Not For Prn Use* IH 1 ampul TIDRT SKYLER Administration Arformoterol Tartrate 15 mcg 08/03/19 20:00 08/06/19 07:54 Brovana Nebu IH 15 mcg Q12HRT SKYLER Administration Budesonide 0.5 mg 08/03/19 20:00 08/06/19 07:54 Pulmicort IH 0.5 mg Q12HRT SKYLER Administration Enoxaparin Sodium 40 mg 07/30/19 22:00 08/05/19 22:02 Enoxaparin SUB-Q 40 mg QDAY@2200 SKYLER Administration Guaifenesin 600 mg 08/01/19 12:00 08/06/19 09:44 Mucinex Er PO 600 mg BID SKYLER Administration Vancomycin HCl 1,250 mg/ 275 mls @ 166.667 mls/hr 08/03/19 06:00 08/06/19 05:56 Sodium Chloride IV 166.667 mls/hr Q12H SKYLER Administration Insulin Glargine 35 units 07/31/19 12:00 08/05/19 22:02 Lantus SUB-Q 35 units Q12HR SKYLER Administration Insulin Human Lispro 0 unit 07/29/19 19:55 08/06/19 08:45 Humalog SUB-Q 3 unit ACHS SKYLER Administration Protocol Insulin Human Lispro 5 unit 07/30/19 11:30 08/06/19 08:46 Humalog SUB-Q 5 unit AC SKYLER Administration Metformin HCl 500 mg 07/30/19 08:00 08/06/19 09:44 Glucophage Xr PO 500 mg QDDIAB SKYLER Administration Methylprednisolone Sodium Succinate 60 mg 08/03/19 15:30 08/06/19 07:43 Solu-Medrol IV 60 mg Q8H SKYLER Administration Miscellaneous Medication 1 tab 07/30/19 08:00 08/06/19 09:45 Genvoya Tablet PO 1 tab DAILY@0800 SKYLER Administration Ondansetron HCl 4 mg 07/29/19 17:39 08/05/19 16:33 Zofran IV 4 mg Q8H PRN Administration Nausea And Vomiting Oxycodone/Acetaminophen 1 tab 07/29/19 16:54 08/05/19 16:34 Percocet 5/325 PO 1 tab Q6H PRN Administration Pain, Moderate (4-6) Polyethylene Glycol 17 gm 07/31/19 20:00 08/06/19 09:45 Miralax 3350 PO 17 gm QDAY SKYLER Administration Pseudoephedrine/Acetam/Chlorphenir 10 ml 08/01/19 11:40 08/06/19 09:50 Robitussin Ac PO 10 ml Q4H PRN Administration Cough Quetiapine Fumarate 200 mg 07/29/19 22:00 08/05/19 22:01 Seroquel PO 200 mg QHS SKYLER Administration Sodium Chloride 10 ml 07/29/19 22:00 08/05/19 22:03 Sodium Chloride Flush Syringe 10 Ml IV 10 ml BID SKYLER Administration Sodium Chloride 10 ml 07/29/19 16:54 Sodium Chloride Flush Syringe 10 Ml IV PRN PRN LINE FLUSH Nutrition/Malnutrition Assess - Dietary Evaluation Nutrition/Malnutrition Findings: Nutrition Notes Start: 08/03/19 10 :41 Freq: Status: Active Protocol: Document 08/03/19 10:41 CT (Rec: 12/12/19 10:42 CT [id number]) Co-Sign 08/03/19 10:41 LP Nutrition Notes Need for Assessment generated from: Low BMI Initial or Follow up Brief Note Weight 99.6 kg Subjective/Other Information Pt ABW is 99.6 kg, updated chart Nutrition Intervention Revisit per MD consult or patient Sign Off request:
[2019-08-06] MEDS: INSULIN GLARGINE 100 UNITS/ML SUB-Q SCH ×2 (11:47→21:52)
--- NOTE | 2019-08-06 12:06 | Progress Note ---
Assessment and Plan Cultures: Blood culture: no growth thus far Influenza PCR: negative sputum culture: MRSA Assessment: 63 y/o female with history of HIV currently on genvoya (does not remember her HIV doctor), LT8=691, /VL=54 on 09/12/2017, COPD, diabetes, bipolar disorder, history of rectovaginal fistula and recurrent UTIs, DVT s/p IVC filter, CHF, seizure admitted 07/29/2019 due to 3-day history of SOB and brownish productive cough: 1) Sepsis: present on admission with tachycardia, neutropenia; source likely pne umonia. 2) MRSA RLL pneumonia with COPD exacerbation vs CAP vs opportunistic less likely. CXR with right basilar consolidation. Sputum growing MRSA. Repeat CXR 08/03/2019, showing improvement. 3) Acute hypoxemic resp failure: pulm following. 4) Diabetes: uncontrolled 5) HIV: on Genvoya. Reportedly compliant, so OI less likely. HIV RNA PCR is 33. CD4 count pending. Recommendations: Continue IV Vancomycin for MRSA pneumonia, Day 5 of 7 given clinical improvement (not a candidate for Linezolid since she is on Zoloft and not a candidate for doxycycline due to tetracycline allergy) Midline already placed. Discussed with Case management on Wednesday, set up IV Vancomycin at home ending 08/08/2019 if discharged prior to that date. continue Genvoya daily. HIV RNA PCR is 33. CD4 count pending. Ori Briones MD, FACP [facility] C: [phone] O: [phone] F: [phone] Subjective Date of service: 08/06/19 Principal diagnosis: Ac. Asthma exacerbation; Ac. hypoxemic Resp failure; RLL PNA; HIV / AIDS Interval history: No fever. Feeling better today. Mild SOB +. Remains off oxygen. Objective - Exam Narrative Exam: Physical Exam: Constitutional: Alert, cooperative. No acute distress Head, Ears, Nose: Normocephalic, atraumatic. External ears, nose normal Eyes: Conjunctivae/corneas clear. No icterus. No ptosis. Neck: Supple, no meningeal signs Cardiovascular: S1, S2 normal. Respiratory: diffuse b/l wheeze + with improving air movement GI: Soft, non-tender; bowel sounds normal. No peritoneal signs Musculoskeletal: No pedal edema, no cyanosis. Midline + Skin: No rash or abscess Hem/Lymphatic: No palpable cervical or supraclavicular nodes. No lymphangitis Psych: Mood ok. Affect normal Neurological: Awake, alert, oriented. No gross abnormality - Constitutional Vitals: Vital Signs Temp Pulse Resp BP Pulse Ox 97.6 F 66 20 148/87 97 08/06/19 05:29 08/06/19 08:25 08/06/19 08:25 08/06/19 05:29 08/06/19 07:54 Temperature -Last 24 Hours Temperature 97.6 F Temperature 98.2 F Temperature 98.3 F - Labs CBC & Chem 7: 08/06/19 08:15 08/06/19 08:15 Labs: Abnormal lab results 08/05/19 08/05/19 08/05/19 Range/Units 11:47 16:38 21:38 RBC (3.65-5.03) M/mm3 MCV (79-97) fl MCH (28-32) pg Plt Count (140-440) K/mm3 BUN (7-17) mg/dL Creatinine (0.7-1.2) mg/dL POC Glucose 186 H 188 H 115 H (70-105) Calcium (8.4-10.2) mg/dL 08/06/19 08/06/19 08/06/19 Range/Units 03:56 08:15 08:15 RBC 3.39 L (3.65-5.03) M/mm3 MCV 106 H (79-97) fl MCH 37 H (28-32) pg Plt Count 94 L (140-440) K/mm3 BUN 25 H (7-17) mg/dL Creatinine 0.6 L (0.7-1.2) mg/dL POC Glucose 213 H (70-105) Calcium 7.7 L (8.4-10.2) mg/dL 08/06/19 Range/Units 11:53 RBC (3.65-5.03) M/mm3 MCV (79-97) fl MCH (28-32) pg Plt Count (140-440) K/mm3 BUN (7-17) mg/dL Creatinine (0.7-1.2) mg/dL POC Glucose 184 H (70-105) Calcium (8.4-10.2) mg/dL
--- NOTE | 2019-08-06 13:17 | Progress Note ---
Assessment and Plan Acute asthma exacerbation Acute respiratory failure with hypoxia Right lower lobe pneumonia HIV / AIDS HTN (hypertension) IDDM (insulin dependent diabetes mellitus) Morbid obesity with BMI of 40.0-44.9, adult Seizure disorder - continue supplemental oxygen as needed to keep O2 sat's > 90% - continue bronchodilators with pulmonary hygiene per RT (add Brovana) - continue systemic steroids with slow taper (tapered to 60 mg q8h) - added inhaled corticosteroids - complete AB's per ID rec's - PT/OT as tolerated - mobility protocols for pressure ulcer prophylaxis - GI & VTE prophylaxis - continued tobacco abstinence counseled at bedside - Flu & Pneumovax addressed per protocol - weight loss counseled - continue other care per attending / other consultants Subjective Date of service: 08/06/19 Principal diagnosis: Ac. Asthma exacerbation; Ac. hypoxemic Resp failure; RLL PNA; HIV / AIDS Interval history: Patient is seen today for: Acute asthma exacerbation; Acute hypoxemic respi ratory failure; RLL pneumonia; HIV / AIDS; HTN; IDDM; Morbid obesity; Seizure disorder Seen and examined at bedside; 24hour events reviewed; nursing and respiratory care staff consulted; no adverse overnight events reported to me; resting peacefully in bed; denies acute chest pains or palpitations; still wheezing; coughing up brownish phlegm intermittently; No N/V/F/C Objective Vital Signs - 12hr 08/06/19 08/06/19 08/06/19 05:29 07:54 08:25 Temperature 97.6 F Pulse Rate 71 Pulse Rate [ 66 Anterior Bilateral Throughout] Respiratory 20 Rate Respiratory 20 Rate [Anterior Bilateral Throughout] Blood Pressure 148/87 O2 Sat by Pulse 94 97 Oximetry Constitutional: no acute distress, alert, other (elderly obese AAF normocephalic with mildly increased resp effort at rest) Eyes: non-icteric ENT: oropharynx moist, other (Mallampati 3) Neck: supple, no JVD, other (+ large neck circumference) Effort: mildly labored Ascultation: Bilateral: wheezes (expiratory), rhonchi Percussion: Bilateral: not dull Cardiovascular: regular rate and rhythm Gastrointestinal: normoactive bowel sounds, soft, non-tender, non-distended Integumentary: normal Extremities: no cyanosis, no edema, pulses normal, no ischemia or petechiae Neurologic: normal mental status, non-focal exam, pupils equal and round, CN II- XII normal, motor strength normal and Psychiatric: mood appropriate, affect normal CBC and BMP: 08/06/19 08:15 08/06/19 08:15 ABG, PT/INR, D-dimer: ABG POC ABG pH 7.431 (7.35-7.45) 07/29/19 13:29 POC ABG pCO2 42.8 (35-45) 07/29/19 13:29 POC ABG pO2 76 (80-105) L 07/29/19 13:29 POC ABG HCO3 28.4 (22-26 mml/L) 07/29/19 13:29 POC ABG Total CO2 30 (23-27mmol/L) 07/29/19 13:29 POC ABG O2 Sat 95 07/29/19 13:29 PT/INR, D-dimer PT 13.8 Sec. (12.2-14.9) 07/29/19 11:12 INR 1.07 (0.87-1.13) 07/29/19 11:12 Abnormal lab findings: Abnormal Labs 07/29/19 07/29/19 07/29/19 11:26 11:26 11:26 WBC 3.9 L RBC 3.40 L MCV 106 H MCH 36 H MCHC 35 H Plt Count Lymph % (Auto) 42.4 H Yates % (Auto) 9.8 H Lymph # Seg Neutrophils % Lymphocytes % (Manual) Seg Neutrophils # 1.7 L Seg Neutrophils # Man Lymphocytes # (Manual) POC ABG pO2 Potassium 3.0 L BUN Creatinine 0.5 L Glucose 227 H POC Glucose Hemoglobin A1c 9.0 H Calcium ALT 6 L HIV-1 RNA PCR copies/ml HIV-1 RNA (PCR) log 07/29/19 07/29/19 07/29/19 13:29 17:40 19:56 WBC RBC MCV MCH MCHC Plt Count Lymph % (Auto) Yates % (Auto) Lymph # Seg Neutrophils % Lymphocytes % (Manual) Seg Neutrophils # Seg Neutrophils # Man Lymphocytes # (Manual) POC ABG pO2 76 L Potassium BUN Creatinine Glucose POC Glucose 466 H 404 H Hemoglobin A1c Calcium ALT HIV-1 RNA PCR copies/ml HIV-1 RNA (PCR) log 07/29/19 07/29/19 07/30/19 22:07 22:37 04:39 WBC 1.9 L* RBC 3.54 L MCV 106 H MCH 37 H MCHC Plt Count Lymph % (Auto) Yates % (Auto) Lymph # Seg Neutrophils % Lymphocytes % (Manual) 45.0 H Seg Neutrophils # Seg Neutrophils # Man 1.0 L Lymphocytes # (Manual) 0.9 L POC ABG pO2 Potassium BUN Creatinine Glucose POC Glucose 280 H 220 H Hemoglobin A1c Calcium ALT HIV-1 RNA PCR copies/ml HIV-1 RNA (PCR) log 07/30/19 07/30/19 07/30/19 04:39 08:16 11:25 WBC RBC MCV MCH MCHC Plt Count Lymph % (Auto) Yates % (Auto) Lymph # Seg Neutrophils % Lymphocytes % (Manual) Seg Neutrophils # Seg Neutrophils # Man Lymphocytes # (Manual) POC ABG pO2 Potassium BUN 19 H Creatinine 0.6 L Glucose 236 H POC Glucose 262 H 294 H Hemoglobin A1c Calcium ALT 6 L HIV-1 RNA PCR copies/ml HIV-1 RNA (PCR) log 07/30/19 07/30/19 07/30/19 16:58 21:44 23:31 WBC RBC MCV MCH MCHC Plt Count Lymph % (Auto) Yates % (Auto) Lymph # Seg Neutrophils % Lymphocytes % (Manual) Seg Neutrophils # Seg Neutrophils # Man Lymphocytes # (Manual) POC ABG pO2 Potassium BUN Creatinine Glucose POC Glucose 308 H 299 H Hemoglobin A1c Calcium ALT HIV-1 RNA PCR copies/ml 33 H HIV-1 RNA (PCR) log 1.52 H 07/31/19 07/31/19 07/31/19 04:50 07:59 12:26 WBC RBC 3.34 L MCV 107 H MCH 36 H MCHC Plt Count Lymph % (Auto) Yates % (Auto) Lymph # 0.9 L Seg Neutrophils % 78.1 H Lymphocytes % (Manual) Seg Neutrophils # Seg Neutrophils # Man Lymphocytes # (Manual) POC ABG pO2 Potassium BUN Creatinine Glucose POC Glucose 226 H 185 H Hemoglobin A1c Calcium ALT HIV-1 RNA PCR copies/ml HIV-1 RNA (PCR) log 07/31/19 07/31/19 08/01/19 17:05 22:13 08:12 WBC RBC MCV MCH MCHC Plt Count Lymph % (Auto) Yates % (Auto) Lymph # Seg Neutrophils % Lymphocytes % (Manual) Seg Neutrophils # Seg Neutrophils # Man Lymphocytes # (Manual) POC ABG pO2 Potassium BUN Creatinine Glucose POC Glucose 196 H 279 H 146 H Hemoglobin A1c Calcium ALT HIV-1 RNA PCR copies/ml HIV-1 RNA (PCR) log 08/01/19 08/01/19 08/01/19 16:31 17:35 20:51 WBC RBC MCV MCH MCHC Plt Count Lymph % (Auto) Yates % (Auto) Lymph # Seg Neutrophils % Lymphocytes % (Manual) Seg Neutrophils # Seg Neutrophils # Man Lymphocytes # (Manual) POC ABG pO2 Potassium BUN Creatinine Glucose POC Glucose 44 L 173 H 203 H Hemoglobin A1c Calcium ALT HIV-1 RNA PCR copies/ml HIV-1 RNA (PCR) log 08/02/19 08/02/19 08/02/19 07:16 11:38 21:25 WBC RBC MCV MCH MCHC Plt Count Lymph % (Auto) Yates % (Auto) Lymph # Seg Neutrophils % Lymphocytes % (Manual) Seg Neutrophils # Seg Neutrophils # Man Lymphocytes # (Manual) POC ABG pO2 Potassium BUN 20 H Creatinine Glucose POC Glucose 255 H 160 H Hemoglobin A1c Calcium ALT HIV-1 RNA PCR copies/ml HIV-1 RNA (PCR) log 08/03/19 08/03/19 08/04/19 11:26 21:26 05:11 WBC RBC 3.35 L MCV 106 H MCH 36 H MCHC Plt Count Lymph % (Auto) Yates % (Auto) Lymph # Seg Neutrophils % Lymphocytes % (Manual) Seg Neutrophils # Seg Neutrophils # Man Lymphocytes # (Manual) POC ABG pO2 Potassium BUN Creatinine Glucose POC Glucose 148 H 234 H Hemoglobin A1c Calcium ALT HIV-1 RNA PCR copies/ml HIV-1 RNA (PCR) log 08/04/19 08/04/19 08/04/19 11:41 16:41 22:09 WBC RBC MCV MCH MCHC Plt Count Lymph % (Auto) Yates % (Auto) Lymph # Seg Neutrophils % Lymphocytes % (Manual) Seg Neutrophils # Seg Neutrophils # Man Lymphocytes # (Manual) POC ABG pO2 Potassium BUN Creatinine Glucose POC Glucose 176 H 196 H 222 H Hemoglobin A1c Calcium ALT HIV-1 RNA PCR copies/ml HIV-1 RNA (PCR) log 08/05/19 08/05/19 08/05/19 04:57 04:57 11:47 WBC RBC 3.41 L MCV 105 H MCH 36 H MCHC Plt Count Lymph % (Auto) Yates % (Auto) Lymph # 1.1 L Seg Neutrophils % 75.7 H Lymphocytes % (Manual) Seg Neutrophils # Seg Neutrophils # Man Lymphocytes # (Manual) POC ABG pO2 Potassium BUN 22 H Creatinine 0.6 L Glucose 113 H POC Glucose 186 H Hemoglobin A1c Calcium 8.0 L ALT HIV-1 RNA PCR copies/ml HIV-1 RNA (PCR) log 08/05/19 08/05/19 08/06/19 16:38 21:38 03:56 WBC RBC MCV MCH MCHC Plt Count Lymph % (Auto) Yates % (Auto) Lymph # Seg Neutrophils % Lymphocytes % (Manual) Seg Neutrophils # Seg Neutrophils # Man Lymphocytes # (Manual) POC ABG pO2 Potassium BUN Creatinine Glucose POC Glucose 188 H 115 H 213 H Hemoglobin A1c Calcium ALT HIV-1 RNA PCR copies/ml HIV-1 RNA (PCR) log 08/06/19 08/06/19 08/06/19 08:15 08:15 11:53 WBC RBC 3.39 L MCV 106 H MCH 37 H MCHC Plt Count 94 L Lymph % (Auto) Yates % (Auto) Lymph # Seg Neutrophils % Lymphocytes % (Manual) Seg Neutrophils # Seg Neutrophils # Man Lymphocytes # (Manual) POC ABG pO2 Potassium BUN 25 H Creatinine 0.6 L Glucose POC Glucose 184 H Hemoglobin A1c Calcium 7.7 L ALT HIV-1 RNA PCR copies/ml HIV-1 RNA (PCR) log Allied health notes reviewed: nursing
[2019-08-06] MEDS: ENOXAPARIN 40 MG/0.4 ML INJ SUB-Q SCH (21:39)
[2019-08-06] MEDS: QUEtiapine 200 MG TAB PO SCH (21:39)
[2019-08-07] MEDS: VANCOMYCIN 1,250 MG in SODIUM CHLORIDE 0.9% 250ML 250 ML IV SCH ×2 (05:57→18:50)
[2019-08-07] MEDS: ONDANSETRON 4 MG/2 ML INJ IV PRN ×2 (06:02→18:50)
[2019-08-07] MEDS: oxyCODONE /ACETAMINOPHEN 5-325MG TAB PO PRN ×2 (06:02→18:49)
[2019-08-07] MEDS: BUDESONIDE 0.5 MG/2 ML NEBU IH SCH ×2 (08:02→20:49)
[2019-08-07] MEDS: ARFORMOTEROL 15 MCG/2 ML NEBU IH SCH ×2 (08:02→20:49)
[2019-08-07] MEDS: IPRATROPIUM/ALBUTEROL SULFATE 3 ML AMPUL.NEB IH SCH ×3 (08:02→20:50)
[2019-08-07] MEDS: INSULIN LISPRO 100 UNIT/ML SUB-Q SCH ×7 (08:05→23:00)
[2019-08-07] MEDS: GENVOYA PO SCH (08:38)
[2019-08-07] MEDS: metFORMIN XR 500MG TAB PO SCH (08:38)
[2019-08-07] MEDS: INSULIN GLARGINE 100 UNITS/ML SUB-Q SCH ×2 (10:31→23:00)
[2019-08-07] MEDS: POLYETHYLENE GLYCOL 3350 17 GM POWDER PO SCH (10:32)
[2019-08-07] MEDS: guaiFENesin ER 600 MG TAB PO SCH ×2 (10:32→23:01)
[2019-08-07] MEDS: guaiFENesin/CODEINE 100-10MG ORAL LIQD 5 ML PO PRN (10:44)
[2019-08-07] MEDS: methylPREDNISolone Sod Succinate 125 MG/2 ML INJ IV SCH ×5 (10:47→23:31)
[2019-08-07 12:31] LABS: Basophils % (Auto) 0.3 % (0.0-1.8); Hematocrit 38.7 % (30.3-42.9); Hemoglobin 13.2 gm/dl (10.1-14.3); Lymphocytes # (Auto) 1.7 K/mm3 (1.2-5.4); Lymphocytes % (Auto) 21.8 % (13.4-35.0); Mean Corpuscular HGB Conc 34 % (30-34); Mean Corpuscular Volume 106 fl (79-97); Monocytes # (Auto) 0.5 K/mm3 (0.0-0.8); Monocytes % (Auto) 6.6 % (0.0-7.3); Red Blood Count 3.66 M/mm3 (3.65-5.03); Red Cell Distribution Width 13.8 % (13.2-15.2)
[2019-08-07 12:48] LABS: Platelet Count TNR K/mm3 (140-440)
[2019-08-07 12:56] LABS: BUN/Creatinine Ratio 30; Blood Urea Nitrogen 21 mg/dL (7-17); Calcium 7.8 mg/dL (8.4-10.2); Hemolysis Index 5
--- NOTE | 2019-08-07 13:10 | Progress Note ---
Assessment and Plan Cultures: Blood culture: no growth thus far Influenza PCR: negative sputum culture: MRSA Assessment: 63 y/o female with history of HIV currently on genvoya (does not remember her HIV doctor), KF3=733, /VL=54 on 09/12/2017, COPD, diabetes, bipolar disorder, history of rectovaginal fistula and recurrent UTIs, DVT s/p IVC filter, CHF, seizure admitted 07/29/2019 due to 3-day history of SOB and brownish productive cough: 1) Sepsis: present on admission with tachycardia, neutropenia; source likely pneumonia. 2) MRSA RLL pneumonia with COPD exacerbation vs CAP vs opportunistic less lik mervin. CXR with right basilar consolidation. Sputum growing MRSA. Repeat CXR 08/03/2019, showing improvement. 3) Acute hypoxemic resp failure: pulm following. 4) Diabetes: uncontrolled 5) HIV: on Genvoya. Reportedly compliant, so OI less likely. HIV RNA PCR is 33. CD4 count pending. Recommendations: Continue IV Vancomycin for MRSA pneumonia, Day 6 of 7 given clinical improvement (not a candidate for Linezolid since she is on Zoloft and not a candidate for doxycycline due to tetracycline allergy) Midline already placed. Discussed with Case management on Wednesday, set up IV Vancomycin at home ending 08/08/2019 if discharged prior to that date. continue Genvoya daily. HIV RNA PCR is 33. CD4 count pending. Thank you for the consult, will follow. Tracy Earl MD [facility], [place], [facility] ([facility]) M: [phone] O: [phone] F: [phone] Subjective Date of service: 08/07/19 Principal diagnosis: Ac. Asthma exacerbation; Ac. hypoxemic Resp failure; RLL PNA; HIV / AIDS Interval history: Feeling slightly improved today. Afebrile, normal white count. Objective - Exam Narrative Exam: Constitutional: Alert, cooperative. No acute distress Head, Ears, Nose: Normocephalic, atraumatic. External ears, nose normal Eyes: Conjunctivae/corneas clear. No icterus. No ptosis. Neck: Supple, no meningeal signs Cardiovascular: S1, S2 normal. Respiratory: diffuse b/l wheeze + with improving air movement GI: Soft, non-tender; bowel sounds normal. No peritoneal signs Musculoskeletal: No pedal edema, no cyanosis. Midline + Skin: No rash or abscess Hem/Lymphatic: No palpable cervical or supraclavicular nodes. No lymphangitis Psych: Mood ok. Affect normal Neurological: Awake, alert, oriented. No gross abnormality - Constitutional Vitals: Vital Signs Temp Pulse Resp BP Pulse Ox 98.1 F 66 20 117/78 98 08/07/19 05:50 08/07/19 08:02 08/07/19 08:02 08/07/19 05:50 08/07/19 08:02 Temperature -Last 24 Hours Temperature 98.1 F Temperature 98.2 F Temperature 98.4 F - Labs CBC & Chem 7: 08/07/19 12:21 08/07/19 12:21 Labs: Abnormal lab results 08/06/19 08/06/19 08/07/19 Range/Units 16:58 21:43 08:05 MCV (79-97) fl MCH (28-32) pg Seg Neutrophils % (40.0-70.0) % Carbon Dioxide (22-30) mmol/L BUN (7-17) mg/dL Glucose (65-100) mg/dL POC Glucose 219 H 168 H 107 H (70-105) Calcium (8.4-10.2) mg/dL 08/07/19 08/07/19 Range/Units 12:21 12:21 MCV 106 H (79-97) fl MCH 36 H (28-32) pg Seg Neutrophils % 71.3 H (40.0-70.0) % Carbon Dioxide 21 L (22-30) mmol/L BUN 21 H (7-17) mg/dL Glucose 59 L (65-100) mg/dL POC Glucose (70-105) Calcium 7.8 L (8.4-10.2) mg/dL
--- NOTE | 2019-08-07 13:49 | Progress Note ---
Assessment and Plan Patient alert, awake. Not using her O2 as recommended. Still complaining shortness of breath, but says its a little better than before. O2 saturation on room air 98%. Strongly recommended to use her oxygen. Patient afebrile and has no leukocytosis. - Patient Problems (1) Acute asthma exacerbation Current Visit: No Status: Acute Qualifiers: Asthma severity: moderate Plan to address problem: 2.5 litres via nasal canula. Albuterol/atrovent aerosol treatments q 6 hours. Continue I/V solumedrol Continue I/V vancomycin. Recommend DVT and GI prophylaxis. (2) Acute respiratory failure with hypoxia Current Visit: Yes Status: Acute Plan to address problem: O2 2.5 litres via nasal canula. Albuterol/atrovent aerosol treatments q 6 hours. Continue I/V solumedrol Continue I/V vancomycin. Recommend DVT and GI prophylaxis. (3) Right lower lobe pneumonia Current Visit: Yes Status: Acute Plan to address problem: Patient is on I/V vancomycin. (4) AIDS Current Visit: Yes Status: Acute Plan to address problem: Recommend to consult infectious diseases. (5) HTN (hypertension) Current Visit: No Status: Acute Qualifiers: Hypertension type: essential hypertension Qualified Code(s): I10 - Essential (primary) hypertension Plan to address problem: Management as per primary care. (6) IDDM (insulin dependent diabetes mellitus) Current Visit: No Status: Acute Plan to address problem: Management as per primary care. (7) Morbid obesity with BMI of 40.0-44.9, adult Current Visit: No Status: Acute Plan to address problem: Recommend to loose weight. Diet and exercise. recommend sleep study as out patient. (8) Seizure disorder Current Visit: No Status: Acute Plan to address problem: Management as per primary care and neurology. Subjective Date of service: 08/07/19 Principal diagnosis: Ac. Asthma exacerbation; Ac. hypoxemic Resp failure; RLL PNA; HIV / AIDS Interval history: Patient alert, awake. Not using her O2 as recommended. Still complaining shortness of breath, but says its a little better than before. O2 saturation on room air 98%. Strongly recommended to use her oxygen. Patient afebrile and has no leukocytosis. Objective Vital Signs - 12hr 08/07/19 08/07/19 05:50 08:02 Temperature 98.1 F Pulse Rate 68 Pulse Rate [ 66 Anterior Bilateral Throughout] Respiratory 18 Rate Respiratory 20 Rate [Anterior Bilateral Throughout] Blood Pressure 117/78 O2 Sat by Pulse 98 98 Oximetry Constitutional: no acute distress, alert, other (elderly obese AAF normocephalic with mildly increased resp effort at rest) Eyes: non-icteric ENT: oropharynx moist, other (Mallampati 3) Neck: supple, no JVD, other (+ large neck circumference) Effort: mildly labored Ascultation: Bilateral: wheezes (expiratory), rhonchi Percussion: Bilateral: not dull Cardiovascular: regular rate and rhythm Gastrointestinal: normoactive bowel sounds, soft, non-tender, non-distended Integumentary: normal Extremities: no cyanosis, no edema, pulses normal, no ischemia or petechiae Neurologic: normal mental status, non-focal exam, pupils equal and round, CN II- XII normal, motor strength normal and Psychiatric: mood appropriate, affect normal CBC and BMP: 08/07/19 12:21 08/07/19 12:21 ABG, PT/INR, D-dimer: ABG POC ABG pH 7.431 (7.35-7.45) 07/29/19 13:29 POC ABG pCO2 42.8 (35-45) 07/29/19 13:29 POC ABG pO2 76 (80-105) L 07/29/19 13:29 POC ABG HCO3 28.4 (22-26 mml/L) 07/29/19 13:29 POC ABG Total CO2 30 (23-27mmol/L) 07/29/19 13:29 POC ABG O2 Sat 95 07/29/19 13:29 PT/INR, D-dimer PT 13.8 Sec. (12.2-14.9) 07/29/19 11:12 INR 1.07 (0.87-1.13) 07/29/19 11:12 Abnormal lab findings: Abnormal Labs 07/29/19 07/29/19 07/29/19 11:26 11:26 11:26 WBC 3.9 L RBC 3.40 L MCV 106 H MCH 36 H MCHC 35 H Plt Count Lymph % (Auto) 42.4 H [place] % (Auto) 9.8 H Lymph # Seg Neutrophils % Lymphocytes % (Manual) Seg Neutrophils # 1.7 L Seg Neutrophils # Man Lymphocytes # (Manual) POC ABG pO2 Potassium 3.0 L Carbon Dioxide BUN Creatinine 0.5 L Glucose 227 H POC Glucose Hemoglobin A1c 9.0 H Calcium ALT 6 L HIV-1 RNA PCR copies/ml HIV-1 RNA (PCR) log 07/29/19 07/29/19 07/29/19 13:29 17:40 19:56 WBC RBC MCV MCH MCHC Plt Count Lymph % (Auto) [place] % (Auto) Lymph # Seg Neutrophils % Lymphocytes % (Manual) Seg Neutrophils # Seg Neutrophils # Man Lymphocytes # (Manual) POC ABG pO2 76 L Potassium Carbon Dioxide BUN Creatinine Glucose POC Glucose 466 H 404 H Hemoglobin A1c Calcium ALT HIV-1 RNA PCR copies/ml HIV-1 RNA (PCR) log 07/29/19 07/29/19 07/30/19 22:07 22:37 04:39 WBC 1.9 L* RBC 3.54 L MCV 106 H MCH 37 H MCHC Plt Count Lymph % (Auto) [place] % (Auto) Lymph # Seg Neutrophils % Lymphocytes % (Manual) 45.0 H Seg Neutrophils # Seg Neutrophils # Man 1.0 L Lymphocytes # (Manual) 0.9 L POC ABG pO2 Potassium Carbon Dioxide BUN Creatinine Glucose POC Glucose 280 H 220 H Hemoglobin A1c Calcium ALT HIV-1 RNA PCR copies/ml HIV-1 RNA (PCR) log 07/30/19 07/30/19 07/30/19 04:39 08:16 11:25 WBC RBC MCV MCH MCHC Plt Count Lymph % (Auto) [place] % (Auto) Lymph # Seg Neutrophils % Lymphocytes % (Manual) Seg Neutrophils # Seg Neutrophils # Man Lymphocytes # (Manual) POC ABG pO2 Potassium Carbon Dioxide BUN 19 H Creatinine 0.6 L Glucose 236 H POC Glucose 262 H 294 H Hemoglobin A1c Calcium ALT 6 L HIV-1 RNA PCR copies/ml HIV-1 RNA (PCR) log 07/30/19 07/30/19 07/30/19 16:58 21:44 23:31 WBC RBC MCV MCH MCHC Plt Count Lymph % (Auto) [place] % (Auto) Lymph # Seg Neutrophils % Lymphocytes % (Manual) Seg Neutrophils # Seg Neutrophils # Man Lymphocytes # (Manual) POC ABG pO2 Potassium Carbon Dioxide BUN Creatinine Glucose POC Glucose 308 H 299 H Hemoglobin A1c Calcium ALT HIV-1 RNA PCR copies/ml 33 H HIV-1 RNA (PCR) log 1.52 H 07/31/19 07/31/19 07/31/19 04:50 07:59 12:26 WBC RBC 3.34 L MCV 107 H MCH 36 H MCHC Plt Count Lymph % (Auto) [place] % (Auto) Lymph # 0.9 L Seg Neutrophils % 78.1 H Lymphocytes % (Manual) Seg Neutrophils # Seg Neutrophils # Man Lymphocytes # (Manual) POC ABG pO2 Potassium Carbon Dioxide BUN Creatinine Glucose POC Glucose 226 H 185 H Hemoglobin A1c Calcium ALT HIV-1 RNA PCR copies/ml HIV-1 RNA (PCR) log 07/31/19 07/31/19 08/01/19 17:05 22:13 08:12 WBC RBC MCV MCH MCHC Plt Count Lymph % (Auto) [place] % (Auto) Lymph # Seg Neutrophils % Lymphocytes % (Manual) Seg Neutrophils # Seg Neutrophils # Man Lymphocytes # (Manual) POC ABG pO2 Potassium Carbon Dioxide BUN Creatinine Glucose POC Glucose 196 H 279 H 146 H Hemoglobin A1c Calcium ALT HIV-1 RNA PCR copies/ml HIV-1 RNA (PCR) log 08/01/19 08/01/19 08/01/19 16:31 17:35 20:51 WBC RBC MCV MCH MCHC Plt Count Lymph % (Auto) [place] % (Auto) Lymph # Seg Neutrophils % Lymphocytes % (Manual) Seg Neutrophils # Seg Neutrophils # Man Lymphocytes # (Manual) POC ABG pO2 Potassium Carbon Dioxide BUN Creatinine Glucose POC Glucose 44 L 173 H 203 H Hemoglobin A1c Calcium ALT HIV-1 RNA PCR copies/ml HIV-1 RNA (PCR) log 08/02/19 08/02/19 08/02/19 07:16 11:38 21:25 WBC RBC MCV MCH MCHC Plt Count Lymph % (Auto) [place] % (Auto) Lymph # Seg Neutrophils % Lymphocytes % (Manual) Seg Neutrophils # Seg Neutrophils # Man Lymphocytes # (Manual) POC ABG pO2 Potassium Carbon Dioxide BUN 20 H Creatinine Glucose POC Glucose 255 H 160 H Hemoglobin A1c Calcium ALT HIV-1 RNA PCR copies/ml HIV-1 RNA (PCR) log 08/03/19 08/03/19 08/04/19 11:26 21:26 05:11 WBC RBC 3.35 L MCV 106 H MCH 36 H MCHC Plt Count Lymph % (Auto) [place] % (Auto) Lymph # Seg Neutrophils % Lymphocytes % (Manual) Seg Neutrophils # Seg Neutrophils # Man Lymphocytes # (Manual) POC ABG pO2 Potassium Carbon Dioxide BUN Creatinine Glucose POC Glucose 148 H 234 H Hemoglobin A1c Calcium ALT HIV-1 RNA PCR copies/ml HIV-1 RNA (PCR) log 08/04/19 08/04/19 08/04/19 11:41 16:41 22:09 WBC RBC MCV MCH MCHC Plt Count Lymph % (Auto) [place] % (Auto) Lymph # Seg Neutrophils % Lymphocytes % (Manual) Seg Neutrophils # Seg Neutrophils # Man Lymphocytes # (Manual) POC ABG pO2 Potassium Carbon Dioxide BUN Creatinine Glucose POC Glucose 176 H 196 H 222 H Hemoglobin A1c Calcium ALT HIV-1 RNA PCR copies/ml HIV-1 RNA (PCR) log 08/05/19 08/05/19 08/05/19 04:57 04:57 11:47 WBC RBC 3.41 L MCV 105 H MCH 36 H MCHC Plt Count Lymph % (Auto) [place] % (Auto) Lymph # 1.1 L Seg Neutrophils % 75.7 H Lymphocytes % (Manual) Seg Neutrophils # Seg Neutrophils # Man Lymphocytes # (Manual) POC ABG pO2 Potassium Carbon Dioxide BUN 22 H Creatinine 0.6 L Glucose 113 H POC Glucose 186 H Hemoglobin A1c Calcium 8.0 L ALT HIV-1 RNA PCR copies/ml HIV-1 RNA (PCR) log 08/05/19 08/05/19 08/06/19 16:38 21:38 03:56 WBC RBC MCV MCH MCHC Plt Count Lymph % (Auto) [place] % (Auto) Lymph # Seg Neutrophils % Lymphocytes % (Manual) Seg Neutrophils # Seg Neutrophils # Man Lymphocytes # (Manual) POC ABG pO2 Potassium Carbon Dioxide BUN Creatinine Glucose POC Glucose 188 H 115 H 213 H Hemoglobin A1c Calcium ALT HIV-1 RNA PCR copies/ml HIV-1 RNA (PCR) log 08/06/19 08/06/19 08/06/19 08:15 08:15 11:53 WBC RBC 3.39 L MCV 106 H MCH 37 H MCHC Plt Count 94 L Lymph % (Auto) [place] % (Auto) Lymph # Seg Neutrophils % Lymphocytes % (Manual) Seg Neutrophils # Seg Neutrophils # Man Lymphocytes # (Manual) POC ABG pO2 Potassium Carbon Dioxide BUN 25 H Creatinine 0.6 L Glucose POC Glucose 184 H Hemoglobin A1c Calcium 7.7 L ALT HIV-1 RNA PCR copies/ml HIV-1 RNA (PCR) log 08/06/19 08/06/19 08/07/19 16:58 21:43 08:05 WBC RBC MCV MCH MCHC Plt Count Lymph % (Auto) [place] % (Auto) Lymph # Seg Neutrophils % Lymphocytes % (Manual) Seg Neutrophils # Seg Neutrophils # Man Lymphocytes # (Manual) POC ABG pO2 Potassium Carbon Dioxide BUN Creatinine Glucose POC Glucose 219 H 168 H 107 H Hemoglobin A1c Calcium ALT HIV-1 RNA PCR copies/ml HIV-1 RNA (PCR) log 08/07/19 08/07/19 08/07/19 12:21 12:21 12:36 WBC RBC MCV 106 H MCH 36 H MCHC Plt Count Lymph % (Auto) [place] % (Auto) Lymph # Seg Neutrophils % 71.3 H Lymphocytes % (Manual) Seg Neutrophils # Seg Neutrophils # Man Lymphocytes # (Manual) POC ABG pO2 Potassium Carbon Dioxide 21 L BUN 21 H Creatinine Glucose 59 L POC Glucose 47 L Hemoglobin A1c Calcium 7.8 L ALT HIV-1 RNA PCR copies/ml HIV-1 RNA (PCR) log Allied health notes reviewed: nursing
--- NOTE | 2019-08-07 14:55 | Progress Note ---
Assessment and Plan - Patient Problems (1) Right lower lobe pneumonia Current Visit: Yes Status: Acute Plan to address problem: ID follow-up appreciated Right lower lobe infiltrate on x-ray Nebulize to continue Still wheezing Continue IV Vancomycin for MRSA pneumonia, Day 6 of 7 given clinical improvement (not a candidate for Linezolid since she is on Zoloft and not a candidate for doxycycline due to tetracycline allergy) Midline already placed. IV Vancomycin ending 08/08/2019 Discharge tomorrow after last dose of vancomycin. (2) Acute respiratory failure with hypoxia Current Visit: Yes Status: Acute Plan to address problem: Patient is hypoxic initially and in respiratory distress initially The patient improved with nebulizer treatments and oxygen Nebulizer treatments, IV Solu-Medrol and IV Levaquin for now BiPAP and intubation if necessary (3) Acute exacerbation of chronic obstructive pulmonary disease (COPD) Current Visit: No Status: Acute Plan to address problem: Patient initiated on nebulizer treatments and IV steroids and IV Levaquin (4) HIV (human immunodeficiency virus infection) Current Visit: No Status: Chronic Qualifiers: HIV symptom status: asymptomatic Qualified Code(s): Z21 - Asymptomatic human immunodeficiency virus [HIV] infection status Plan to address problem: Continue Genvoya 1 tablet once a day (5) HTN (hypertension) Current Visit: No Status: Acute Qualifiers: Plan to address problem: Continue antihypertensives (6) IDDM (insulin dependent diabetes mellitus) Current Visit: No Status: Chronic Plan to address problem: Continue insulin 7030 twice a day and coverage (7) Hypokalemia Current Visit: Yes Status: Acute Plan to address problem: Supplemented (8) DVT prophylaxis Current Visit: No Status: Acute Plan to address problem: Heparin subcutaneous and GI prophylaxis (9) Discharge planning issues Current Visit: Yes Status: Acute Plan to address problem: Discharge tomorrow after last dose of Vancomycin if respwisedoing well. Subjective Date of service: 08/07/19 Principal diagnosis: Ac. Asthma exacerbation; Ac. hypoxemic Resp failure; RLL PNA; HIV / AIDS Interval history: Improved Objective - Constitutional Vitals: Vital Signs - 12hr 08/07/19 08/07/19 05:50 08:02 Temperature 98.1 F Pulse Rate 68 Pulse Rate [ 66 Anterior Bilateral Throughout] Respiratory 18 Rate Respiratory 20 Rate [Anterior Bilateral Throughout] Blood Pressure 117/78 O2 Sat by Pulse 98 98 Oximetry General appearance: Present: no acute distress, well-nourished - EENT Eyes: PERRL, EOM intact ENT: hearing intact, clear oral mucosa Ears: bilateral: normal - Neck Neck: supple, normal ROM - Respiratory Respiratory effort: normal Respiratory: bilateral: CTA, wheezing - Breasts Breasts: normal - Cardiovascular Heart rate: 78 Rhythm: regular Heart Sounds: Present: S1 & S2. Absent: gallop, rub Extremities: pulses intact, No edema, normal color, Full ROM - Gastrointestinal General gastrointestinal: Present: soft, non-tender, non-distended, normal bowel sounds - Genitourinary Female genitourinary: normal - Integumentary Integumentary: clear, warm, dry - Musculoskeletal Musculoskeletal: 1, strength equal bilaterally - Neurologic Neurologic: moves all extremities - Psychiatric Psychiatric: memory intact, appropriate mood/affect, intact judgment & insight - Allied health notes Allied health notes reviewed: nursing, case management - Labs CBC & Chem 7: 08/07/19 14:45 08/08/19 04:46 Labs: Abnormal lab results 08/06/19 08/06/19 08/07/19 Range/Units 16:58 21:43 08:05 MCV (79-97) fl MCH (28-32) pg Seg Neutrophils % (40.0-70.0) % Carbon Dioxide (22-30) mmol/L BUN (7-17) mg/dL Glucose (65-100) mg/dL POC Glucose 219 H 168 H 107 H (70-105) Calcium (8.4-10.2) mg/dL 08/07/19 08/07/19 08/07/19 Range/Units 12:21 12:21 12:36 MCV 106 H (79-97) fl MCH 36 H (28-32) pg Seg Neutrophils % 71.3 H (40.0-70.0) % Carbon Dioxide 21 L (22-30) mmol/L BUN 21 H (7-17) mg/dL Glucose 59 L (65-100) mg/dL POC Glucose 47 L (70-105) Calcium 7.8 L (8.4-10.2) mg/dL
[2019-08-07] MEDS: ENOXAPARIN 40 MG/0.4 ML INJ SUB-Q SCH (23:00)
[2019-08-07] MEDS: QUEtiapine 200 MG TAB PO SCH (23:01)
[2019-08-08] MEDS: VANCOMYCIN 1,250 MG in SODIUM CHLORIDE 0.9% 250ML 250 ML IV SCH ×2 (05:46→16:30)
[2019-08-08] MEDS: guaiFENesin/CODEINE 100-10MG ORAL LIQD 5 ML PO PRN ×2 (05:46→12:54)
[2019-08-08] MEDS: ONDANSETRON 4 MG/2 ML INJ IV PRN (05:47)
[2019-08-08] MEDS: oxyCODONE /ACETAMINOPHEN 5-325MG TAB PO PRN (05:47)
[2019-08-08 06:50] LABS: BUN/Creatinine Ratio 35; Blood Urea Nitrogen 21 mg/dL (7-17)
[2019-08-08 06:51] LABS: Calcium 7.5 mg/dL (8.4-10.2); Hemolysis Index 7
[2019-08-08] MEDS: ARFORMOTEROL 15 MCG/2 ML NEBU IH SCH (08:08)
[2019-08-08] MEDS: BUDESONIDE 0.5 MG/2 ML NEBU IH SCH (08:08)
[2019-08-08] MEDS: IPRATROPIUM/ALBUTEROL SULFATE 3 ML AMPUL.NEB IH SCH ×2 (08:11→13:46)
[2019-08-08] MEDS: INSULIN LISPRO 100 UNIT/ML SUB-Q SCH ×6 (08:23→19:08)
[2019-08-08] MEDS: GENVOYA PO SCH (08:57)
[2019-08-08] MEDS: methylPREDNISolone Sod Succinate 125 MG/2 ML INJ IV SCH ×2 (08:57→19:08)
[2019-08-08] MEDS: metFORMIN XR 500MG TAB PO SCH (08:57)
[2019-08-08 09:34] LABS: Basophils % (Auto) 0.2 % (0.0-1.8); Hemoglobin 12.3 gm/dl (10.1-14.3); Lymphocytes # (Auto) 1.2 K/mm3 (1.2-5.4); Mean Corpuscular HGB Conc 33 % (30-34); Mean Corpuscular Volume 107 fl (79-97); Monocytes # (Auto) 0.2 K/mm3 (0.0-0.8); Monocytes % (Auto) 3.2 % (0.0-7.3); Platelet Count 180 K/mm3 (140-440); Red Blood Count 3.46 M/mm3 (3.65-5.03); Red Cell Distribution Width 13.9 % (13.2-15.2)
--- NOTE | 2019-08-08 11:17 | Progress Note ---
Assessment and Plan Cultures: Blood culture: no growth thus far Influenza PCR: negative sputum culture: MRSA Assessment: 63 y/o female with history of HIV currently on genvoya (does not remember her HIV doctor), HD0=881, /VL=54 on 09/12/2017, COPD, diabetes, bipolar disorder, history of rectovaginal fistula and recurrent UTIs, DVT s/p IVC filter, CHF, seizure admitted 07/29/2019 due to 3-day history of SOB and brownish productive cough: 1) Sepsis: present on admission with tachycardia, neutropenia; source likely pneumonia. 2) MRSA RLL pneumonia with COPD exacerbation vs CAP vs opportunistic less lik mervin. CXR with right basilar consolidation. Sputum growing MRSA. Repeat CXR 08/03/2019, showing improvement. 3) Acute hypoxemic resp failure: pulm following. 4) Diabetes: uncontrolled 5) HIV: on Genvoya. Reportedly compliant, so OI less likely. HIV RNA PCR is 33. CD4 count pending. Recommendations: Continue IV Vancomycin for MRSA pneumonia, Day 7 of 7 given clinical improvement (not a candidate for Linezolid since she is on Zoloft and not a candidate for doxycycline due to tetracycline allergy) Ok for discharge from ID perspective after completion of today's vancomycin. continue Genvoya daily. HIV RNA PCR is 33. CD4 count pending. Thank you for the consult, will follow. Tracy Earl MD [facility] ([facility]) M: [phone] O: [phone] F: [phone] Subjective Date of service: 08/08/19 Principal diagnosis: Ac. Asthma exacerbation; Ac. hypoxemic Resp failure; RLL PNA; HIV / AIDS Interval history: Feeling slightly improved today. Afebrile, normal white count. Objective - Exam Narrative Exam: Constitutional: Alert, cooperative. No acute distress Head, Ears, Nose: Normocephalic, atraumatic. External ears, nose normal Eyes: Conjunctivae/corneas clear. No icterus. No ptosis. Neck: Supple, no meningeal signs Cardiovascular: S1, S2 normal. Respiratory: diffuse b/l wheeze + with improving air movement GI: Soft, non-tender; bowel sounds normal. No peritoneal signs Musculoskeletal: No pedal edema, no cyanosis. Midline + Skin: No rash or abscess Hem/Lymphatic: No palpable cervical or supraclavicular nodes. No lymphangitis Psych: Mood ok. Affect normal Neurological: Awake, alert, oriented. No gross abnormality - Constitutional Vitals: Vital Signs Temp Pulse Resp BP Pulse Ox 97.6 F 72 20 114/61 100 08/08/19 04:12 08/08/19 08:08 08/08/19 08:08 08/08/19 04:12 08/08/19 08:12 Temperature -Last 24 Hours Temperature 97.6 F Temperature 98.7 F Temperature 98.3 F Temperature 97.8 F Temperature 97.0 F - Labs CBC & Chem 7: 08/08/19 04:46 08/08/19 04:46 Labs: Abnormal lab results 08/07/19 08/07/19 08/07/19 Range/Units 12:21 12:21 12:36 RBC (3.65-5.03) M/mm3 MCV 106 H (79-97) fl MCH 36 H (28-32) pg Seg Neutrophils % 71.3 H (40.0-70.0) % Chloride (98-107) mmol/L Carbon Dioxide 21 L (22-30) mmol/L BUN 21 H (7-17) mg/dL Creatinine (0.7-1.2) mg/dL Glucose 59 L (65-100) mg/dL POC Glucose 47 L (70-105) Calcium 7.8 L (8.4-10.2) mg/dL 08/07/19 08/08/19 08/08/19 Range/Units 16:58 04:46 04:46 RBC 3.46 L (3.65-5.03) M/mm3 MCV 107 H (79-97) fl MCH 36 H (28-32) pg Seg Neutrophils % 77.6 H (40.0-70.0) % Chloride 107.9 H (98-107) mmol/L Carbon Dioxide (22-30) mmol/L BUN 21 H (7-17) mg/dL Creatinine 0.6 L (0.7-1.2) mg/dL Glucose (65-100) mg/dL POC Glucose 137 H (70-105) Calcium 7.5 L (8.4-10.2) mg/dL 08/08/19 Range/Units 07:36 RBC (3.65-5.03) M/mm3 MCV (79-97) fl MCH (28-32) pg Seg Neutrophils % (40.0-70.0) % Chloride (98-107) mmol/L Carbon Dioxide (22-30) mmol/L BUN (7-17) mg/dL Creatinine (0.7-1.2) mg/dL Glucose (65-100) mg/dL POC Glucose 68 L (70-105) Calcium (8.4-10.2) mg/dL
--- NOTE | 2019-08-08 11:44 | Discharge Summary ---
Providers - Providers Date of Admission: 07/31/19 12:04 Date of discharge: 08/08/19 Attending physician: KATHARINA BAGLEY 07/29/19 19:14 Consult to Physician [CONS] Routine Comment: Consulting Provider: RONI GATES Physician Instructions: Reason For Exam: COPD exacerbation 07/30/19 07:48 Consult to Physician [CONS] Routine Comment: Consulting Provider: ORI IRAHETA Physician Instructions: Reason For Exam: sepsis, pna 08/04/19 14:52 Consult to Case Management [CONS] Routine Services Needed at Discharge: Other Notified:: cm Comment:: IV abx Additional Physician Instructions: [facility] ([facility]) O: [phone] F: [phone] OUTPATIENT PARENTERAL ANTIBIOTIC THERAPY (OPAT) ORDERS Diagnoses: MRSA Pneumonia Antimicrobial administration: IV Vancomycin 1.25 gm q12 hrs ending 08/08/2019. - Remove midline after last dose unless otherwise instructed. Lines: Maintain IV access with weekly dressing changes and locks per protocol. Lab monitoring: - CBC with differential, Creatinine, ALT, AST, Vancomycin trough once a week every Wednesday while on IV antibiotics. Please fax results to [phone] and call [phone] for critical lab results. 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 Cough productive of mucoid sputum. he was not responding to outpatient treatment and nebulizer treatments. After EMS arrived patient was found to be very hypoxic with saturations around 80%. Patient was given nebulizer treatments by EMS, brought to Emergency Department. He was seen and evaluated in ED. he was admitted and evaluated by Pulmonology and ID Physician. Sepsis secondary to pneumonia. Treated with Levaquin and Vancomycin MRSA RLL pneumonia. CXR with right basilar consolidation. Sputum--MRSA. Continued antibiotics per ID. Levaquin and Vancomycin COPD exacerbation. Cont bronchodilators and nebulizers. Acute hypoxemic resp failure secondary to COPD exacerbation. Etiology secondary to above. Pulm following. Diabetes mellitus II, uncontrolled. Improved on increasing dose of Insulin. HIV. Continue HAART Total time spent on discharge, 32 mins Disposition: DC/TX-06 HOME UNDER HOME HLTH - Discharge Diagnoses (1) Acute respiratory failure with hypoxia Status: Acute (2) COPD exacerbation Status: Acute (3) HIV (human immunodeficiency virus infection) Status: Acute (4) HTN (hypertension) Status: Acute Qualifiers: Comment: Has optimal control of blood pressure resume all antihypertensives medications. (5) IDDM (insulin dependent diabetes mellitus) Status: Acute (6) Morbid obesity with BMI of 40.0-44.9, adult Status: Acute (7) Seizure disorder Status: Acute (8) Sepsis Status: Acute Core Measure Documentation - Palliative Care Palliative Care/ Comfort Measures: Not Applicable - Core Measures Any of the following diagnoses?: none Exam - Constitutional Vitals: Temp Pulse Resp BP Pulse Ox 97.6 F 72 20 114/61 100 08/08/19 04:12 08/08/19 08:08 08/08/19 08:08 08/08/19 04:12 08/08/19 08:12 Plan Activity: advance as tolerated Diet: low fat, low cholesterol, low salt, diabetic Plan of Treatment: 1. Follow up with PCP in 1 week. 2. Follow up with Magdaleno Eric in 1 week. 3.Follow up with IZABELLA Espinoza in 1 week. Follow up with: PRIMARY CARE, [Primary Care Provider] - 3-5 Days Prescriptions: guaiFENesin ER [Mucinex ER] 600 mg PO BID #10 tablet Prednisone [predniSONE 5 mg (6-Day Pack, 21 Tabs)] 5 mg PO .TAPER #1 tab.ds.pk
[2019-08-08] MEDS: INSULIN GLARGINE 100 UNITS/ML SUB-Q SCH (12:40)
[2019-08-08] MEDS: POLYETHYLENE GLYCOL 3350 17 GM POWDER PO SCH (12:41)
[2019-08-08] MEDS: guaiFENesin ER 600 MG TAB PO SCH (12:41)
[2019-08-08 14:31] VITALS: BP 98/53
--- NOTE | 2019-08-08 18:51 | Progress Note ---
Assessment and Plan - Patient Problems (1) Acute asthma exacerbation Current Visit: No Status: Acute Qualifiers: Asthma severity: moderate Plan to address problem: Albuterol/atrovent aerosol treatments q 6 hours. Continue I/V solumedrol Continue I/V vancomycin. Recommend DVT and GI prophylaxis. (2) Acute respiratory failure with hypoxia Current Visit: Yes Status: Acute Plan to address problem: Albuterol/atrovent aerosol treatments q 6 hours. Continue I/V solumedrol Continue I/V vancomycin. Recommend DVT and GI prophylaxis. (3) Right lower lobe pneumonia Current Visit: Yes Status: Acute Plan to address problem: Patient is on I/V vancomycin. (4) AIDS Current Visit: Yes Status: Acute Plan to address problem: Recommend to consult infectious diseases. (5) HTN (hypertension) Current Visit: No Status: Acute Qualifiers: Hypertension type: essential hypertension Qualified Code(s): I10 - Essent ial (primary) hypertension Plan to address problem: Management as per primary care. (6) IDDM (insulin dependent diabetes mellitus) Current Visit: No Status: Acute Plan to address problem: Management as per primary care. (7) Morbid obesity with BMI of 40.0-44.9, adult Current Visit: No Status: Acute Plan to address problem: Recommend to loose weight. Diet and exercise. recommend sleep study as out patient. (8) Seizure disorder Current Visit: No Status: Acute Plan to address problem: Management as per primary care and neurology. Subjective Date of service: 08/08/19 Principal diagnosis: Ac. Asthma exacerbation; Ac. hypoxemic Resp failure; RLL PNA; HIV / AIDS Interval history: Patient alert, awake and resting on room air. Says breathing better. O2 saturation on room air 98%. No acute respiratory distress. Patient afebrile and has no leukocytosis. Objective Vital Signs - 12hr 08/08/19 08/08/19 08/08/19 08:08 08:12 12:20 Temperature 97.0 F L Pulse Rate 63 Pulse Rate [ 72 Anterior Bilateral Throughout] Respiratory 20 Rate Respiratory 20 Rate [Anterior Bilateral Throughout] Blood Pressure 98/53 O2 Sat by Pulse 100 99 Oximetry 08/08/19 13:46 Temperature Pulse Rate Pulse Rate [ 79 Anterior Bilateral Throughout] Respiratory Rate Respiratory 20 Rate [Anterior Bilateral Throughout] Blood Pressure O2 Sat by Pulse Oximetry Constitutional: no acute distress, alert, other (elderly obese AAF normocephalic with mildly increased resp effort at rest) Eyes: non-icteric ENT: oropharynx moist, other (Mallampati 3) Neck: supple, no JVD, other (+ large neck circumference) Effort: mildly labored Ascultation: Bilateral: wheezes (expiratory), rhonchi Percussion: Bilateral: not dull Cardiovascular: regular rate and rhythm Gastrointestinal: normoactive bowel sounds, soft, non-tender, non-distended Integumentary: normal Extremities: no cyanosis, no edema, pulses normal, no ischemia or petechiae Neurologic: normal mental status, non-focal exam, pupils equal and round, CN II- XII normal, motor strength normal and Psychiatric: mood appropriate, affect normal CBC and BMP: 08/08/19 04:46 08/08/19 04:46 ABG, PT/INR, D-dimer: ABG POC ABG pH 7.431 (7.35-7.45) 07/29/19 13:29 POC ABG pCO2 42.8 (35-45) 07/29/19 13:29 POC ABG pO2 76 (80-105) L 07/29/19 13:29 POC ABG HCO3 28.4 (22-26 mml/L) 07/29/19 13:29 POC ABG Total CO2 30 (23-27mmol/L) 07/29/19 13:29 POC ABG O2 Sat 95 07/29/19 13:29 PT/INR, D-dimer PT 13.8 Sec. (12.2-14.9) 07/29/19 11:12 INR 1.07 (0.87-1.13) 07/29/19 11:12 Abnormal lab findings: Abnormal Labs 07/29/19 07/29/19 07/29/19 11:26 11:26 11:26 WBC 3.9 L RBC 3.40 L MCV 106 H MCH 36 H MCHC 35 H Plt Count Lymph % (Auto) 42.4 H [place] % (Auto) 9.8 H Lymph # Seg Neutrophils % Lymphocytes % (Manual) Seg Neutrophils # 1.7 L Seg Neutrophils # Man Lymphocytes # (Manual) POC ABG pO2 Potassium 3.0 L Chloride Carbon Dioxide BUN Creatinine 0.5 L Glucose 227 H POC Glucose Hemoglobin A1c 9.0 H Calcium ALT 6 L HIV-1 RNA PCR copies/ml HIV-1 RNA (PCR) log 07/29/19 07/29/19 07/29/19 13:29 17:40 19:56 WBC RBC MCV MCH MCHC Plt Count Lymph % (Auto) [place] % (Auto) Lymph # Seg Neutrophils % Lymphocytes % (Manual) Seg Neutrophils # Seg Neutrophils # Man Lymphocytes # (Manual) POC ABG pO2 76 L Potassium Chloride Carbon Dioxide BUN Creatinine Glucose POC Glucose 466 H 404 H Hemoglobin A1c Calcium ALT HIV-1 RNA PCR copies/ml HIV-1 RNA (PCR) log 07/29/19 07/29/19 07/30/19 22:07 22:37 04:39 WBC 1.9 L* RBC 3.54 L MCV 106 H MCH 37 H MCHC Plt Count Lymph % (Auto) [place] % (Auto) Lymph # Seg Neutrophils % Lymphocytes % (Manual) 45.0 H Seg Neutrophils # Seg Neutrophils # Man 1.0 L Lymphocytes # (Manual) 0.9 L POC ABG pO2 Potassium Chloride Carbon Dioxide BUN Creatinine Glucose POC Glucose 280 H 220 H Hemoglobin A1c Calcium ALT HIV-1 RNA PCR copies/ml HIV-1 RNA (PCR) log 07/30/19 07/30/19 07/30/19 04:39 08:16 11:25 WBC RBC MCV MCH MCHC Plt Count Lymph % (Auto) [place] % (Auto) Lymph # Seg Neutrophils % Lymphocytes % (Manual) Seg Neutrophils # Seg Neutrophils # Man Lymphocytes # (Manual) POC ABG pO2 Potassium Chloride Carbon Dioxide BUN 19 H Creatinine 0.6 L Glucose 236 H POC Glucose 262 H 294 H Hemoglobin A1c Calcium ALT 6 L HIV-1 RNA PCR copies/ml HIV-1 RNA (PCR) log 07/30/19 07/30/19 07/30/19 16:58 21:44 23:31 WBC RBC MCV MCH MCHC Plt Count Lymph % (Auto) [place] % (Auto) Lymph # Seg Neutrophils % Lymphocytes % (Manual) Seg Neutrophils # Seg Neutrophils # Man Lymphocytes # (Manual) POC ABG pO2 Potassium Chloride Carbon Dioxide BUN Creatinine Glucose POC Glucose 308 H 299 H Hemoglobin A1c Calcium ALT HIV-1 RNA PCR copies/ml 33 H HIV-1 RNA (PCR) log 1.52 H 07/31/19 07/31/19 07/31/19 04:50 07:59 12:26 WBC RBC 3.34 L MCV 107 H MCH 36 H MCHC Plt Count Lymph % (Auto) [place] % (Auto) Lymph # 0.9 L Seg Neutrophils % 78.1 H Lymphocytes % (Manual) Seg Neutrophils # Seg Neutrophils # Man Lymphocytes # (Manual) POC ABG pO2 Potassium Chloride Carbon Dioxide BUN Creatinine Glucose POC Glucose 226 H 185 H Hemoglobin A1c Calcium ALT HIV-1 RNA PCR copies/ml HIV-1 RNA (PCR) log 07/31/19 07/31/19 08/01/19 17:05 22:13 08:12 WBC RBC MCV MCH MCHC Plt Count Lymph % (Auto) [place] % (Auto) Lymph # Seg Neutrophils % Lymphocytes % (Manual) Seg Neutrophils # Seg Neutrophils # Man Lymphocytes # (Manual) POC ABG pO2 Potassium Chloride Carbon Dioxide BUN Creatinine Glucose POC Glucose 196 H 279 H 146 H Hemoglobin A1c Calcium ALT HIV-1 RNA PCR copies/ml HIV-1 RNA (PCR) log 08/01/19 08/01/19 08/01/19 16:31 17:35 20:51 WBC RBC MCV MCH MCHC Plt Count Lymph % (Auto) [place] % (Auto) Lymph # Seg Neutrophils % Lymphocytes % (Manual) Seg Neutrophils # Seg Neutrophils # Man Lymphocytes # (Manual) POC ABG pO2 Potassium Chloride Carbon Dioxide BUN Creatinine Glucose POC Glucose 44 L 173 H 203 H Hemoglobin A1c Calcium ALT HIV-1 RNA PCR copies/ml HIV-1 RNA (PCR) log 08/02/19 08/02/19 08/02/19 07:16 11:38 21:25 WBC RBC MCV MCH MCHC Plt Count Lymph % (Auto) [place] % (Auto) Lymph # Seg Neutrophils % Lymphocytes % (Manual) Seg Neutrophils # Seg Neutrophils # Man Lymphocytes # (Manual) POC ABG pO2 Potassium Chloride Carbon Dioxide BUN 20 H Creatinine Glucose POC Glucose 255 H 160 H Hemoglobin A1c Calcium ALT HIV-1 RNA PCR copies/ml HIV-1 RNA (PCR) log 08/03/19 08/03/19 08/04/19 11:26 21:26 05:11 WBC RBC 3.35 L MCV 106 H MCH 36 H MCHC Plt Count Lymph % (Auto) [place] % (Auto) Lymph # Seg Neutrophils % Lymphocytes % (Manual) Seg Neutrophils # Seg Neutrophils # Man Lymphocytes # (Manual) POC ABG pO2 Potassium Chloride Carbon Dioxide BUN Creatinine Glucose POC Glucose 148 H 234 H Hemoglobin A1c Calcium ALT HIV-1 RNA PCR copies/ml HIV-1 RNA (PCR) log 08/04/19 08/04/19 08/04/19 11:41 16:41 22:09 WBC RBC MCV MCH MCHC Plt Count Lymph % (Auto) [place] % (Auto) Lymph # Seg Neutrophils % Lymphocytes % (Manual) Seg Neutrophils # Seg Neutrophils # Man Lymphocytes # (Manual) POC ABG pO2 Potassium Chloride Carbon Dioxide BUN Creatinine Glucose POC Glucose 176 H 196 H 222 H Hemoglobin A1c Calcium ALT HIV-1 RNA PCR copies/ml HIV-1 RNA (PCR) log 08/05/19 08/05/19 08/05/19 04:57 04:57 11:47 WBC RBC 3.41 L MCV 105 H MCH 36 H MCHC Plt Count Lymph % (Auto) [place] % (Auto) Lymph # 1.1 L Seg Neutrophils % 75.7 H Lymphocytes % (Manual) Seg Neutrophils # Seg Neutrophils # Man Lymphocytes # (Manual) POC ABG pO2 Potassium Chloride Carbon Dioxide BUN 22 H Creatinine 0.6 L Glucose 113 H POC Glucose 186 H Hemoglobin A1c Calcium 8.0 L ALT HIV-1 RNA PCR copies/ml HIV-1 RNA (PCR) log 08/05/19 08/05/19 08/06/19 16:38 21:38 03:56 WBC RBC MCV MCH MCHC Plt Count Lymph % (Auto) [place] % (Auto) Lymph # Seg Neutrophils % Lymphocytes % (Manual) Seg Neutrophils # Seg Neutrophils # Man Lymphocytes # (Manual) POC ABG pO2 Potassium Chloride Carbon Dioxide BUN Creatinine Glucose POC Glucose 188 H 115 H 213 H Hemoglobin A1c Calcium ALT HIV-1 RNA PCR copies/ml HIV-1 RNA (PCR) log 08/06/19 08/06/19 08/06/19 08:15 08:15 11:53 WBC RBC 3.39 L MCV 106 H MCH 37 H MCHC Plt Count 94 L Lymph % (Auto) [place] % (Auto) Lymph # Seg Neutrophils % Lymphocytes % (Manual) Seg Neutrophils # Seg Neutrophils # Man Lymphocytes # (Manual) POC ABG pO2 Potassium Chloride Carbon Dioxide BUN 25 H Creatinine 0.6 L Glucose POC Glucose 184 H Hemoglobin A1c Calcium 7.7 L ALT HIV-1 RNA PCR copies/ml HIV-1 RNA (PCR) log 08/06/19 08/06/19 08/07/19 16:58 21:43 08:05 WBC RBC MCV MCH MCHC Plt Count Lymph % (Auto) [place] % (Auto) Lymph # Seg Neutrophils % Lymphocytes % (Manual) Seg Neutrophils # Seg Neutrophils # Man Lymphocytes # (Manual) POC ABG pO2 Potassium Chloride Carbon Dioxide BUN Creatinine Glucose POC Glucose 219 H 168 H 107 H Hemoglobin A1c Calcium ALT HIV-1 RNA PCR copies/ml HIV-1 RNA (PCR) log 08/07/19 08/07/19 08/07/19 12:21 12:21 12:36 WBC RBC MCV 106 H MCH 36 H MCHC Plt Count Lymph % (Auto) [place] % (Auto) Lymph # Seg Neutrophils % 71.3 H Lymphocytes % (Manual) Seg Neutrophils # Seg Neutrophils # Man Lymphocytes # (Manual) POC ABG pO2 Potassium Chloride Carbon Dioxide 21 L BUN 21 H Creatinine Glucose 59 L POC Glucose 47 L Hemoglobin A1c Calcium 7.8 L ALT HIV-1 RNA PCR copies/ml HIV-1 RNA (PCR) log 08/07/19 08/08/19 08/08/19 16:58 04:46 04:46 WBC RBC 3.46 L MCV 107 H MCH 36 H MCHC Plt Count Lymph % (Auto) [place] % (Auto) Lymph # Seg Neutrophils % 77.6 H Lymphocytes % (Manual) Seg Neutrophils # Seg Neutrophils # Man Lymphocytes # (Manual) POC ABG pO2 Potassium Chloride 107.9 H Carbon Dioxide BUN 21 H Creatinine 0.6 L Glucose POC Glucose 137 H Hemoglobin A1c Calcium 7.5 L ALT HIV-1 RNA PCR copies/ml HIV-1 RNA (PCR) log 08/08/19 08/08/19 08/08/19 07:36 11:56 17:26 WBC RBC MCV MCH MCHC Plt Count Lymph % (Auto) [place] % (Auto) Lymph # Seg Neutrophils % Lymphocytes % (Manual) Seg Neutrophils # Seg Neutrophils # Man Lymphocytes # (Manual) POC ABG pO2 Potassium Chloride Carbon Dioxide BUN Creatinine Glucose POC Glucose 68 L 153 H 196 H Hemoglobin A1c Calcium ALT HIV-1 RNA PCR copies/ml HIV-1 RNA (PCR) log Allied health notes reviewed: nursing
[2019-08-10 07:41] LABS: CD19, Absolute TNR; CD3, Absolute TNR; CD3, Percentage TNR; CD4, Absolute TNR; CD4, Percentage TNR; CD4/CD8 Ratio TNR; CD8, Absolute TNR; CD8, Percentage TNR; Lymphocytes, Absolute TNR
== END 2019-08-08 20:17 | disposition home health service (06) | DRG 974 ==
LOC: ED 10:15 → 3A 13:04 → OBSVTOIN 07-31 12:04 → UNDODISIN 07-31 21:50
PROVIDERS: ADMIT Internal Medicine; ATTEND Internal Medicine
PROC: 4A033R1 Measurement of Arterial Saturation, Peripheral, Percutaneous Approach (ICD-10-PCS; principal; 2019-07-29)
PROC: 05HY33Z Insertion of Infusion Device into Upper Vein, Percutaneous Approach (ICD-10-PCS; 2019-08-05)
DX: B20 Human immunodeficiency virus [HIV] disease (principal); A41.9 Sepsis, unspecified organism; J96.01 Acute respiratory failure with hypoxia; J18.9 Pneumonia, unspecified organism; J44.1 Chronic obstructive pulmonary disease with (acute) exacerbation; J45.901 Unspecified asthma with (acute) exacerbation; Z68.41 Body mass index [BMI] 40.0-44.9, adult; I11.0 Hypertensive heart disease with heart failure; E11.9 Type 2 diabetes mellitus without complications; E66.01 Morbid (severe) obesity due to excess calories; G40.909 Epilepsy, unspecified, not intractable, without status epilepticus; F31.9 Bipolar disorder, unspecified; E87.6 Hypokalemia; F20.9 Schizophrenia, unspecified; I50.9 Heart failure, unspecified; Z86.718 Personal history of other venous thrombosis and embolism; Z79.01 Long term (current) use of anticoagulants; Z86.711 Personal history of pulmonary embolism; Z90.710 Acquired absence of both cervix and uterus; Z79.4 Long term (current) use of insulin; Z88.6 Allergy status to analgesic agent; Z88.1 Allergy status to other antibiotic agents; Z91.013 Allergy to seafood
CPT/HCPCS: 36415; 71045; 71046; 80048; 80053; 80202; 81001; 82024; 82803; 82962; 83036; 83735; 83880; 84145; 84484; 85007; 85025; 85027; 85049; 85610; 85730; 87040; 87070; 87076; 87086; 87116; 87186; 87205; 87400; 87536; 93005; 93010; 94640; 94644; 94760; 96365; G0378; 87502; J1650; J1815; J1956; J2270; J2405; J2920; J2930; J3370; J3475; J7040; J7050

== ENCOUNTER 2019-11-14 10:27 | Emergency (ER) | payer MEDICARE ==
--- NOTE | 2019-11-14 11:55 | Emergency Department Report ---
ED Shortness of Breath HPI - General Chief Complaint: Dyspnea/Respdistress Stated Complaint: COUGH Time Seen by Provider: 11/14/19 11:36 Source: patient, EMS Mode of arrival: Ambulatory Limitations: No Limitations - History of Present Illness Initial Comments: 64-year-old female with history of HIV, CHF, COPD, diabetes, hypertension, bipolar disorder, presents to ED with 3-day history of shortness of breath. Patient states it feels like her COPD/asthma. Patient reports only a slight cough productive of some phlegm. Denies fever. Patient denies any recent travel. Denies being in close contact with anyone that is known to be COVID positive MD Complaint: shortness of breath -: days(s) (3) Severity: moderate Consistency: constant Improves With: bronchodilators Worsens With: exertion Known History Of: COPD Associated Symptoms: cough Treatments Prior to Arrival: bronchodilator - Related Data Home Oxygen Therapy: No Home Medications Medication Instructions Recorded Confirmed Last Taken Furosemide [Lasix TAB] 40 mg PO QDAY 03/23/18 10/14/19 07/28/19 Previous Rx's Medication Instructions Recorded Last Taken Type amLODIPine 5 mg PO QDAY #30 tablet 07/29/17 07/28/19 Rx guaiFENesin ER [Mucinex ER] 600 mg PO BID #10 tablet 08/08/19 Unknown Rx ALBUTEROL NEB's [Proventil 0.083% 2.5 mg IH TID PRN #90 neb 09/30/19 Unknown Rx NEBS] Albuterol INH(or & Nicu Only) 2 puff IH QID PRN #8.5 gram 09/30/19 Unknown Rx [ProAir HFA Inhaler] Budesonide/Formoterol Fumarate 2 inhalation IH BID #1 hfa.aer.ad 09/30/19 Unknown Rx [Symbicort 160-4.5 Mcg Inhaler] Elviteg/Cob/Emtri/Tenof Alafen 1 each PO DAILY #30 tablet 09/30/19 Unknown Rx [Genvoya Tablet] Genvoya Tablet 1 tab PO DAILY #90 tab 09/30/19 Unknown Rx Glycerin/Witch Lise Pad [Tucks 1 each TP PRN PRN #1 box 09/30/19 Unknown Rx Pad] Insulin Regular, Human [HumuLIN R] 0 unit SQ AC #1 vial 09/30/19 Unknown Rx QUEtiapine [SEROquel] 200 mg PO QHS #90 tablet 09/30/19 Unknown Rx Tiotropium [place]yce [Spiriva 2 inhalation IH DAILY #1 mist.inhal 09/30/19 Unknown Rx Respimat] metFORMIN XR [Glucophage XR] 500 mg PO QDAY #90 tab 09/30/19 Unknown Rx traMADoL [Ultram 50 MG tab] 50 mg PO Q6H PRN #14 tablet 09/30/19 Unknown Rx Azithromycin [Zithromax Z-LUAN] 250 mg PO DAILY #6 tab 10/17/19 Unknown Rx Insulin NPH/Regular [NovoLIN 70/30] 30 unit SUB-Q BIDDIAB #2 vial 10/17/19 Unknown Rx predniSONE [Deltasone] 40 mg PO QDAY #7 tablet 10/17/19 Unknown Rx Albuterol Sulfate [Proventil Hfa] 2 puff IH Q4HR PRN #1 hfa.aer.ad 11/14/19 Unknown Rx predniSONE [Deltasone] 50 mg PO QDAY #5 tab 11/14/19 Unknown Rx Allergies Allergy/AdvReac Type Severity Reaction Status Date / Time shellfish derived Allergy Severe Shortness Verified 02/05/19 16:34 of Breath ibuprofen [From Motrin] Allergy Mild Shortness Verified 02/05/19 16:34 of Breath tetracycline Allergy Shortness Verified 10/28/18 13:56 of Breath ED Review of Systems ROS: Stated complaint: COUGH Other details as noted in HPI Comment: All other systems reviewed and negative Constitutional: denies: fever Respiratory: cough, shortness of breath, wheezing Musculoskeletal: other (denies lower extremity swelling) ED Past Medical Hx - Past Medical History Hx Hypertension: Yes Hx Congestive Heart Failure: Yes Hx Diabetes: Yes Hx Deep Vein Thrombosis: No Hx Pulmonary Embolism: Yes Hx GERD: No Hx Renal Disease: No Hx Arthritis: No Hx Seizures: Yes Hx Kidney Stones: No Hx Psychiatric Treatment: Yes (bipolar disorder; schziphornia) Hx Asthma: No Hx COPD: No Hx Tuberculosis: No Hx Dementia: No Hx HIV: Yes Additional medical history: CDIFF, spinal stenosis - Surgical History Hx Open Heart Surgery: No Hx Pacemaker: No Hx Internal Defibrillator: No Hx Cholecystectomy: No Hx Appendectomy: No Hx Breast Surgery: No Additional Surgical History: hysterectomy; rt arm skin graph - Social History Smoking Status: Never Smoker Substance Use Type: None - Medications Home Medications: Home Medications Medication Instructions Recorded Confirmed Last Taken Type amLODIPine 5 mg PO QDAY #30 tablet 07/29/17 10/14/19 07/28/19 Rx Furosemide [Lasix TAB] 40 mg PO QDAY 03/23/18 10/14/19 07/28/19 History guaiFENesin ER [Mucinex ER] 600 mg PO BID #10 tablet 08/08/19 10/14/19 Unknown Rx ALBUTEROL NEB's [Proventil 0.083% 2.5 mg IH TID PRN #90 neb 09/30/19 10/14/19 Unknown Rx NEBS] Albuterol INH(or & Nicu Only) 2 puff IH QID PRN #8.5 gram 09/30/19 10/14/19 Unknown Rx [ProAir HFA Inhaler] Budesonide/Formoterol Fumarate 2 inhalation IH BID #1 hfa.aer.ad 09/30/19 10/14/19 Unknown Rx [Symbicort 160-4.5 Mcg Inhaler] Elviteg/Cob/Emtri/Tenof Alafen 1 each PO DAILY #30 tablet 09/30/19 10/14/19 Unknown Rx [Genvoya Tablet] Genvoya Tablet 1 tab PO DAILY #90 tab 09/30/19 10/14/19 Unknown Rx Glycerin/Witch Lise Pad [Tucks 1 each TP PRN PRN #1 box 09/30/19 10/14/19 Unknown Rx Pad] Insulin Regular, Human [HumuLIN R] 0 unit SQ AC #1 vial 09/30/19 10/14/19 Unknown Rx QUEtiapine [SEROquel] 200 mg PO QHS #90 tablet 09/30/19 10/14/19 Unknown Rx Tiotropium Fordyce [Spiriva 2 inhalation IH DAILY #1 mist.inhal 09/30/19 10/14/19 Unknown Rx Respimat] metFORMIN XR [Glucophage XR] 500 mg PO QDAY #90 tab 09/30/19 10/14/19 Unknown Rx traMADoL [Ultram 50 MG tab] 50 mg PO Q6H PRN #14 tablet 09/30/19 10/14/19 Unknown Rx Azithromycin [Zithromax Z-LUAN] 250 mg PO DAILY #6 tab 10/17/19 Unknown Rx Insulin NPH/Regular [NovoLIN 70/30] 30 unit SUB-Q BIDDIAB #2 vial 10/17/19 10/14/19 Unknown Rx predniSONE [Deltasone] 40 mg PO QDAY #7 tablet 10/17/19 Unknown Rx Albuterol Sulfate [Proventil Hfa] 2 puff IH Q4HR PRN #1 hfa.aer.ad 11/14/19 Unknown Rx predniSONE [Deltasone] 50 mg PO QDAY #5 tab 11/14/19 Unknown Rx ED Physical Exam - General Limitations: No Limitations General appearance: alert, in no apparent distress - Head Head exam: Present: atraumatic, normocephalic - Eye Eye exam: Present: normal appearance - ENT ENT exam: Present: mucous membranes moist - Neck Neck exam: Present: normal inspection - Respiratory Respiratory exam: Present: wheezes. Absent: respiratory distress - Cardiovascular Cardiovascular Exam: Present: regular rate, normal rhythm - GI/Abdominal GI/Abdominal exam: Absent: distended - Extremities Exam Extremities exam: Present: normal inspection. Absent: pedal edema, calf tenderness - Neurological Exam Neurological exam: Present: alert, oriented X3 - Psychiatric Psychiatric exam: Present: normal affect, normal mood - Skin Skin exam: Present: warm, dry, intact, normal color ED Course Vital Signs 11/14/19 11/14/19 10:31 12:16 Temperature 98.9 F 98.6 F Pulse Rate 97 H 85 Respiratory 20 12 Rate Blood Pressure 133/84 Blood Pressure 159/106 133/84 [Left] O2 Sat by Pulse 96 97 Oximetry ED Medical Decision Making - Lab Data Result diagrams: 11/14/19 12:18 11/14/19 12:18 - EKG Data -: EKG Interpreted by Ga EKG shows normal: sinus rhythm, axis, intervals, QRS complexes, ST-T waves Rate: normal - EKG Data Interpretation: no acute changes - Radiology Data Radiology results: report reviewed, image reviewed - Medical Decision Making - no resp distress, O2 sats normal - pt afebrile - EKG normal - CXR shows no pulm edema or infiltrates - wheezing on exam - labs unremarkable - solumedrol, nebs given - will d/c home at this time - outpt f/u advised - Differential Diagnosis COPD, CHF, pneumonia, ACS Critical care attestation.: If time is entered above; I have spent that time in minutes in the direct care of this critically ill patient, excluding procedure time. ED Disposition Clinical Impression: Acute exacerbation of chronic obstructive pulmonary disease (COPD) Disposition: TO HOME OR SELFCARE Is pt being admited?: No Condition: Stable Instructions: Chronic Obstructive Pulmonary Disease (ED) Prescriptions: predniSONE [Deltasone] 50 mg PO QDAY #5 tab Albuterol Sulfate [Proventil Hfa] 2 puff IH Q4HR PRN #1 hfa.aer.ad PRN Reason: Wheezing Referrals: [facility] [Provider Group] - 3-5 Days PRIMARY CARE, [Primary Care Provider] - 3-5 Days
--- NOTE | 2019-11-14 12:45 | XRay Report ---
CHEST 1 VIEW INDICATION: sob. COMPARISON: 10/14/2019 FINDINGS: SUPPORT DEVICES: None. HEART / MEDIASTINUM: No significant abnormality. LUNGS / PLEURA: No significant pulmonary or pleural abnormality. No pneumothorax. ADDITIONAL FINDINGS: IMPRESSION: 1. No acute cardiopulmonary disease Signer Name: Elieser Olmstead MD Signed: 11/14/2019 12:40 PM Workstation Name: [id number]
[2019-11-14] MEDS ORDERED: IPRATROPIUM 0.02% NEBU 2.5 ML IH ONE (12:52)
[2019-11-14] MEDS ORDERED: methylPREDNISolone Sod Succinate 125 MG/2 ML INJ IM ONE (12:52)
[2019-11-14] MEDS ORDERED: ALBUTEROL 2.5 MG/3 ML NEBU IH ONE (12:52)
[2019-11-14 13:16] LABS: Basophils % (Auto) 0.5 % (0.0-1.8); Eosinophils % (Auto) 0.8 % (0.0-4.3); Hematocrit 42.2 % (30.3-42.9); Hemoglobin 13.9 gm/dl (10.1-14.3); Lymphocytes # (Auto) 1.8 K/mm3 (1.2-5.4); Lymphocytes % (Auto) 53.8 % (13.4-35.0); Mean Corpuscular HGB Conc 33 % (30-34); Mean Corpuscular Volume 110 fl (79-97); Monocytes # (Auto) 0.3 K/mm3 (0.0-0.8); Monocytes % (Auto) 9.3 % (0.0-7.3); Platelet Count 191 K/mm3 (140-440); Red Blood Count 3.84 M/mm3 (3.65-5.03)
[2019-11-14 13:22] LABS: INR 0.95 (0.87-1.13)
[2019-11-14 13:23] LABS: Partial Thromboplastin Time 24.1 Sec. (24.2-36.6)
[2019-11-14 13:30] LABS: BUN/Creatinine Ratio 23; Blood Urea Nitrogen 14 mg/dL (7-17); Calcium 9.2 mg/dL (8.4-10.2); Hemolysis Index 15
[2019-11-14 17:41] VITALS: BP 133/98
== END 2019-11-14 15:50 | disposition home or self-care (01) ==
LOC: ED 10:27
DX: J44.1 Chronic obstructive pulmonary disease with (acute) exacerbation (principal)
CPT/HCPCS: 36415; 71045; 80048; 83880; 84484; 85025; 85610; 85730; 93005; 93010; 94640; 96372; 99284; J2930; 94644

== ENCOUNTER 2019-11-24 16:47 | Observation (INO) | payer MEDICARE ==
[2019-11-24] MEDS ORDERED: methylPREDNISolone Sod Succinate 125 MG/2 ML INJ IV ONE (17:06)
[2019-11-24] MEDS ORDERED: ALBUTEROL 2.5 MG/3 ML NEBU IH ONE ×2 (17:06→17:13)
[2019-11-24] MEDS ORDERED: IPRATROPIUM 0.02% NEBU 2.5 ML IH ONE (17:06)
[2019-11-24] MEDS ORDERED: MAGNESIUM SULFATE 2 GM/50 ML BAG IV ONE (17:06)
[2019-11-24] MEDS ORDERED: SODIUM CHLORIDE 0.9% 500 ML 500 ML IV ONE (17:12)
[2019-11-24 17:46] LABS: Basophils # (Auto) 0.1 K/mm3 (0.0-0.1); Basophils % (Auto) 1.7 % (0.0-1.8); Eosinophils % (Auto) 0.2 % (0.0-4.3); Hematocrit 42.3 % (30.3-42.9); Hemoglobin 14.4 gm/dl (10.1-14.3); Lymphocytes # (Auto) 2.7 K/mm3 (1.2-5.4); Lymphocytes % (Auto) 49.2 % (13.4-35.0); Mean Corpuscular HGB Conc 34 % (30-34); Mean Corpuscular Volume 107 fl (79-97); Monocytes # (Auto) 0.3 K/mm3 (0.0-0.8); Monocytes % (Auto) 5.4 % (0.0-7.3); Platelet Count 195 K/mm3 (140-440); Red Blood Count 3.97 M/mm3 (3.65-5.03); Red Cell Distribution Width 14.1 % (13.2-15.2)
[2019-11-24] MEDS: cefTRIAXone/NS 2 GM/100 ML 2 GM/100 ML BAG IV SCH (17:58)
[2019-11-24 18:05] LABS: Alanine Aminotransferase 9 units/L (7-56); Albumin 4.5 g/dL (3.9-5); BUN/Creatinine Ratio 29; Blood Urea Nitrogen 20 mg/dL (7-17); Hemolysis Index 31
[2019-11-24 18:06] LABS: ABG Base Excess 0.2 mmol/L (-2.0-3.0); ABG HCO3 24.4 mmol/L (20.0-26.0); ABG Methemoglobin 0.6 % (0.0-1.5); ABG Oxygen Saturation 95.3 % (95.0-99.0); ABG PCO2 38.4 mm Hg; ABG PH 7.422 pH Units (7.350-7.450); ABG PO2 72.6 mm Hg (80.0-90.0)
[2019-11-24 18:10] LABS: INR 1.05 (0.87-1.13)
--- NOTE | 2019-11-24 18:51 | XRay Report ---
CHEST 1 VIEW 1817 INDICATION / CLINICAL INFORMATION: MAIN: dyspnea; pt presents to ed with complaint of sob. COMPARISON: 11/14/2019 FINDINGS: SUPPORT DEVICES: None HEART / MEDIASTINUM: No significant abnormality. LUNGS / PLEURA: Slight atelectasis is seen in the right base. No definite areas of consolidation are noted. No pneumothorax. ADDITIONAL FINDINGS: No significant additional findings. IMPRESSION: No significant acute abnormality Signer Name: Eleno Denise MD Signed: 11/24/2019 6:47 PM Workstation Name: [id number]
[2019-11-24] MEDS ORDERED: MORPHINE 2 MG/1 ML INJ IV ONE (19:04)
[2019-11-24] MEDS ORDERED: ONDANSETRON 4 MG/2 ML INJ IV ONE (19:04)
--- NOTE | 2019-11-24 19:10 | History and Physical Report ---
History of Present Illness Chief complaint: Im short of breath History of present illness: 64 YO Female with COPD, DM, Seizure Disorder, HTN, Bipolar, Diastolic CHF, Schizophrenia, Obesity Hypoventilation Syndrome, HIV presents to ED for evaluation. Pt states that she has experienced shortness of breath and increased productive cough with increased production of clear sputum over the past 4 days with worsening symptoms over the past 2 days. The patient has experienced increased use of her inhaler and nebulizer therapy without significant relief. Patient acknowledges Orthopnea/PND, Dyspnea on exertion, Dyspnea at rest, and decreased exercise tolerance. EMS notified and upon arrival the patient was found to be in distress and transported to [facility] for further evaluation and care. Pt seen and evaluated in ED. lab and imaging studies reviewed. Patient found to have clinical symptoms consistent with COPD Exacerbation as well as Acute Hypoxemic respiratory failure. Patient using accessory muscles to breathe, and is unable to speak in complete sentences due to dypsnea. Patient placed in observation status and admitted to BERTO unit for medical stabilization due to increased likelihood of respiratory decompensation. Pt denies fever, chills, chest pain, palpitations, NVD, Syncope, Trauma, recent ill contacts, unilateral leg swelling, calf pain, prolonged travel/immobility, trauma, individual/family history of DVT/PE, hemoptysis, known ill contacts, or medication noncompliance. Prior admission on 10/14/2019 reviewed. All listed medication reconciled at time of admission. Advanced care planning conducted in ED. Past History Past Medical History: COPD, diabetes, heart failure, HIV/AIDS, hypertension, seizures, other (See HPI) Past Surgical History: hysterectomy, Other (Right arm surgery) Social history: single. denies: smoking, alcohol abuse, prescription drug abuse Family history: diabetes, hypertension Medications and Allergies Allergies Allergy/AdvReac Type Severity Reaction Status Date / Time shellfish derived Allergy Severe Shortness Verified 11/14/19 15:47 of Breath ibuprofen [From Motrin] Allergy Mild Shortness Verified 11/14/19 15:47 of Breath tetracycline Allergy Shortness Verified 11/14/19 15:47 of Breath Home Medications Medication Instructions Recorded Confirmed Last Taken Type amLODIPine 5 mg PO QDAY #30 tablet 07/29/17 10/14/19 07/28/19 Rx Furosemide [Lasix TAB] 40 mg PO QDAY 03/23/18 10/14/19 07/28/19 History guaiFENesin ER [Mucinex ER] 600 mg PO BID #10 tablet 08/08/19 10/14/19 Unknown Rx ALBUTEROL NEB's [Proventil 0.083% 2.5 mg IH TID PRN #90 neb 09/30/19 10/14/19 Unknown Rx NEBS] Albuterol INH(or & Nicu Only) 2 puff IH QID PRN #8.5 gram 09/30/19 10/14/19 Unknown Rx [ProAir HFA Inhaler] Budesonide/Formoterol Fumarate 2 inhalation IH BID #1 hfa.aer.ad 09/30/19 10/14/19 Unknown Rx [Symbicort 160-4.5 Mcg Inhaler] Elviteg/Cob/Emtri/Tenof Alafen 1 each PO DAILY #30 tablet 09/30/19 10/14/19 Unknown Rx [Genvoya Tablet] Genvoya Tablet 1 tab PO DAILY #90 tab 09/30/19 10/14/19 Unknown Rx Glycerin/Witch Lise Pad [Tucks 1 each TP PRN PRN #1 box 09/30/19 10/14/19 Unknown Rx Pad] Insulin Regular, Human [HumuLIN R] 0 unit SQ AC #1 vial 09/30/19 10/14/19 Unknown Rx QUEtiapine [SEROquel] 200 mg PO QHS #90 tablet 09/30/19 10/14/19 Unknown Rx Tiotropium Linch [Spiriva 2 inhalation IH DAILY #1 mist.inhal 09/30/19 10/14/19 Unknown Rx Respimat] metFORMIN XR [Glucophage XR] 500 mg PO QDAY #90 tab 09/30/19 10/14/19 Unknown Rx traMADoL [Ultram 50 MG tab] 50 mg PO Q6H PRN #14 tablet 09/30/19 10/14/19 Unknown Rx Azithromycin [Zithromax Z-LUAN] 250 mg PO DAILY #6 tab 10/17/19 Unknown Rx Insulin NPH/Regular [NovoLIN 70/30] 30 unit SUB-Q BIDDIAB #2 vial 10/17/19 10/14/19 Unknown Rx predniSONE [Deltasone] 40 mg PO QDAY #7 tablet 10/17/19 Unknown Rx Albuterol Sulfate [Proventil Hfa] 2 puff IH Q4HR PRN #1 hfa.aer.ad 11/14/19 Unknown Rx predniSONE [Deltasone] 50 mg PO QDAY #5 tab 11/14/19 Unknown Rx Active Meds: Active Medications Ceftriaxone Sodium (Rocephin/Ns 2 Gm/100 Ml) 2 gm in 100 mls @ 200 mls/hr IV Q24HR [facility]; Protocol Last Admin: 11/24/19 17:58 Dose: 200 mls/hr Documented by: Review of Systems Constitutional: no weight loss, no weight gain, no fever, no chills Ears, nose, mouth and throat: no ear pain, no ear discharge, no tinnitis, no decreased hearing, no nose pain, no nasal congestion Breasts: no change in shape, no swelling, no mass Cardiovascular: shortness of breath, dyspnea on exertion, decreased exercise tolerance, no chest pain, no orthopnea, no palpitations Respiratory: cough with sputum, shortness of breath, dyspnea on exertion Gastrointestinal: no nausea, no vomiting, no diarrhea, no constipation, no change in bowel habits Genitourinary Female: no pelvic pain, no flank pain, no menorrhagia, no dysuria, no urinary frequency, no urgency Rectal: no pain, no incontinence, no bleeding Musculoskeletal: no neck stiffness, no neck pain, no shooting arm pain, no arm numbness/tingling, no low back pain, no shooting leg pain Integumentary: no rash, no pruritis, no redness, no wounds Neurological: no transient paralysis, no paralysis, no weakness, no numbness, no tingling, no seizures Psychiatric: no anxiety, no memory loss, no change in sleep habits, no sleep disturbances Endocrine: no polyphagia, no polydipsia, no polyuria, no nocturia Hematologic/Lymphatic: no easy bruising, no easy bleeding, no lymphedema Allergic/Immunologic: no urticaria, no wheezing Exam - Constitutional Vitals: Temp Pulse Resp BP Pulse Ox 99.9 F H 112 H 19 153/93 98 11/24/19 16:55 11/24/19 18:30 11/24/19 18:30 11/24/19 18:01 11/24/19 18:01 General appearance: Present: mild distress, obese - EENT Eyes: Present: PERRL ENT: hearing intact, clear oral mucosa - Neck Neck: Present: supple, normal ROM - Respiratory Respiratory effort: labored, accessory muscle use, stridor Respiratory: bilateral: diminished, rhonchi - Cardiovascular Heart Sounds: Present: S1 & S2. Absent: rub, click - Extremities Extremities: pulses symmetrical, No edema Peripheral Pulses: within normal limits - Abdominal General gastrointestinal: Present: soft, non-tender, non-distended, normal bowel sounds Female genitourinary: Present: normal - Integumentary Integumentary: Present: clear, warm, dry - Musculoskeletal Musculoskeletal: gait normal, strength equal bilaterally - Psychiatric Psychiatric: appropriate mood/affect, intact judgment & insight - Neurologic Neurologic: CNII-XII intact, moves all extremities Results - Labs CBC & Chem 7: 11/24/19 17:32 11/24/19 17:32 Labs: Abnormal lab results 11/24/19 11/24/19 11/24/19 Range/Units 17:32 17:32 17:32 Hgb 14.4 H (10.1-14.3) gm/dl MCV 107 H (79-97) fl MCH 36 H (28-32) pg Lymph % (Auto) 49.2 H (13.4-35.0) % D-Dimer 775.91 H (0-234) ng/mlDDU ABG pO2 (80.0-90.0) mm Hg Oxyhemoglobin (95.0-99.0) % Potassium 3.2 L (3.6-5.0) mmol/L BUN 20 H (7-17) mg/dL Glucose 129 H (65-100) mg/dL Alkaline Phosphatase 133 H (35-129) units/L 11/24/19 Range/Units 17:55 Hgb (10.1-14.3) gm/dl MCV (79-97) fl MCH (28-32) pg Lymph % (Auto) (13.4-35.0) % D-Dimer (0-234) ng/mlDDU ABG pO2 72.6 L (80.0-90.0) mm Hg Oxyhemoglobin 93.7 L (95.0-99.0) % Potassium (3.6-5.0) mmol/L BUN (7-17) mg/dL Glucose (65-100) mg/dL Alkaline Phosphatase (35-129) units/L Assessment and Plan - Patient Problems (1) COPD exacerbation Current Visit: Yes Status: Acute Plan to address problem: Supplemental oxygen, nebulizer therapy, chest x-ray, pulse oximetry, IV steroid therapy, IV antibiotic therapy, noninvasive positive pressure ventilation as clinically indicated. (2) HTN (hypertension) Current Visit: Yes Status: Acute Qualifiers: Hypertension type: essential hypertension Qualified Code(s): I10 - Essenti al (primary) hypertension Plan to address problem: Monitor blood pressure every shift, continue medical management. (3) AIDS Current Visit: No Status: Acute Plan to address problem: Continue antiretroviral therapy, supportive care, outpatient infectious disease follow-up. (4) Diabetes Current Visit: No Status: Acute Plan to address problem: Sliding scale insulin diet, Accu-Chek, hypoglycemia protocol (5) CHF (congestive heart failure) Current Visit: Yes Status: Acute Qualifiers: Heart failure chronicity: chronic Plan to address problem: Strict I's/O, monitor urine output every shift, daily weight, diuresis with Lasix, blood pressure control, afterload reduction, chest x-ray, supplemental oxygen. (6) Seizure disorder Current Visit: Yes Status: Acute Plan to address problem: Not currently taking antiepileptic therapy, seizure precaution, aspiration precaution, supportive care. (7) Advance care planning Current Visit: Yes Status: Acute Plan to address problem: Patient is full code, disease education conducted, patient knowledges understanding and agreement with care plan, +30 minutes. (8) DVT prophylaxis Current Visit: No Status: Acute Plan to address problem: SCD to bilateral lower extremities while in bed, patient is ambulatory.
--- NOTE | 2019-11-24 19:13 | Emergency Department Report ---
ED Shortness of Breath HPI - General Chief Complaint: Dyspnea/Respdistress Stated Complaint: SOB Time Seen by Provider: 11/24/19 17:00 Source: patient, family Mode of arrival: Ambulatory Limitations: No Limitations - History of Present Illness Initial Comments: Patient is a 64-year-old F Brazilian female with a past medical history of COPD who is presenting with shortness of breath. Patient states that last time she had to be admitted was several months ago. She was here last month but appeared to clear rather quickly after steroids and neb treatment. Today the patient states she is very short of breath. When asked about a fever she states she has been feeling warm she has had some nausea as well. She denies any contact with anyone who was tested positive for coronavirus. She denies diarrhea. States her cough is productive of brownish sputum. Patient states she has no headache sore throat or neck stiffness. - Related Data Home Medications Medication Instructions Recorded Confirmed Last Taken Furosemide [Lasix TAB] 40 mg PO QDAY 03/23/18 10/14/19 07/28/19 Previous Rx's Medication Instructions Recorded Last Taken Type amLODIPine 5 mg PO QDAY #30 tablet 07/29/17 07/28/19 Rx guaiFENesin ER [Mucinex ER] 600 mg PO BID #10 tablet 08/08/19 Unknown Rx ALBUTEROL NEB's [Proventil 0.083% 2.5 mg IH TID PRN #90 neb 09/30/19 Unknown Rx NEBS] Albuterol INH(or & Nicu Only) 2 puff IH QID PRN #8.5 gram 09/30/19 Unknown Rx [ProAir HFA Inhaler] Budesonide/Formoterol Fumarate 2 inhalation IH BID #1 hfa.aer.ad 09/30/19 Unknown Rx [Symbicort 160-4.5 Mcg Inhaler] Elviteg/Cob/Emtri/Tenof Alafen 1 each PO DAILY #30 tablet 09/30/19 Unknown Rx [Genvoya Tablet] Genvoya Tablet 1 tab PO DAILY #90 tab 09/30/19 Unknown Rx Glycerin/Witch Lise Pad [Tucks 1 each TP PRN PRN #1 box 09/30/19 Unknown Rx Pad] Insulin Regular, Human [HumuLIN R] 0 unit SQ AC #1 vial 09/30/19 Unknown Rx QUEtiapine [SEROquel] 200 mg PO QHS #90 tablet 09/30/19 Unknown Rx Tiotropium [place] [Spiriva 2 inhalation IH DAILY #1 mist.inhal 09/30/19 Unknown Rx Respimat] metFORMIN XR [Glucophage XR] 500 mg PO QDAY #90 tab 09/30/19 Unknown Rx traMADoL [Ultram 50 MG tab] 50 mg PO Q6H PRN #14 tablet 09/30/19 Unknown Rx Azithromycin [Zithromax Z-LUAN] 250 mg PO DAILY #6 tab 10/17/19 Unknown Rx Insulin NPH/Regular [NovoLIN 70/30] 30 unit SUB-Q BIDDIAB #2 vial 10/17/19 Unknown Rx predniSONE [Deltasone] 40 mg PO QDAY #7 tablet 10/17/19 Unknown Rx Albuterol Sulfate [Proventil Hfa] 2 puff IH Q4HR PRN #1 hfa.aer.ad 11/14/19 Unknown Rx predniSONE [Deltasone] 50 mg PO QDAY #5 tab 11/14/19 Unknown Rx Allergies Allergy/AdvReac Type Severity Reaction Status Date / Time shellfish derived Allergy Severe Shortness Verified 11/14/19 15:47 of Breath ibuprofen [From Motrin] Allergy Mild Shortness Verified 11/14/19 15:47 of Breath tetracycline Allergy Shortness Verified 11/14/19 15:47 of Breath ED Review of Systems ROS: Stated complaint: SOB Other details as noted in HPI Comment: All other systems reviewed and negative ED Past Medical Hx - Past Medical History Previous Medical History?: Yes Hx Hypertension: Yes Hx Congestive Heart Failure: Yes Hx Diabetes: Yes Hx Deep Vein Thrombosis: No Hx Pulmonary Embolism: Yes Hx GERD: No Hx Renal Disease: No Hx Arthritis: No Hx Seizures: Yes Hx Kidney Stones: No Hx Psychiatric Treatment: Yes (bipolar disorder; schziphornia) Hx Asthma: No Hx COPD: No Hx Tuberculosis: No Hx Dementia: No Hx HIV: Yes Additional medical history: CDIFF, spinal stenosis - Surgical History Past Surgical History?: No Hx Open Heart Surgery: No Hx Pacemaker: No Hx Internal Defibrillator: No Hx Cholecystectomy: No Hx Appendectomy: No Hx Breast Surgery: No Additional Surgical History: hysterectomy; rt arm skin graph - Social History Smoking Status: Never Smoker Substance Use Type: None - Medications Home Medications: Home Medications Medication Instructions Recorded Confirmed Last Taken Type amLODIPine 5 mg PO QDAY #30 tablet 07/29/17 10/14/19 07/28/19 Rx Furosemide [Lasix TAB] 40 mg PO QDAY 03/23/18 10/14/19 07/28/19 History guaiFENesin ER [Mucinex ER] 600 mg PO BID #10 tablet 08/08/19 10/14/19 Unknown Rx ALBUTEROL NEB's [Proventil 0.083% 2.5 mg IH TID PRN #90 neb 09/30/19 10/14/19 Unknown Rx NEBS] Albuterol INH(or & Nicu Only) 2 puff IH QID PRN #8.5 gram 09/30/19 10/14/19 Unknown Rx [ProAir HFA Inhaler] Budesonide/Formoterol Fumarate 2 inhalation IH BID #1 hfa.aer.ad 09/30/19 10/14/19 Unknown Rx [Symbicort 160-4.5 Mcg Inhaler] Elviteg/Cob/Emtri/Tenof Alafen 1 each PO DAILY #30 tablet 09/30/19 10/14/19 Unknown Rx [Genvoya Tablet] Genvoya Tablet 1 tab PO DAILY #90 tab 09/30/19 10/14/19 Unknown Rx Glycerin/Witch [place]ise Pad [Tucks 1 each TP PRN PRN #1 box 09/30/19 10/14/19 Unknown Rx Pad] Insulin Regular, Human [HumuLIN R] 0 unit SQ AC #1 vial 09/30/19 10/14/19 Unknown Rx QUEtiapine [SEROquel] 200 mg PO QHS #90 tablet 09/30/19 10/14/19 Unknown Rx Tiotropium [place] [Spiriva 2 inhalation IH DAILY #1 mist.inhal 09/30/19 10/14/19 Unknown Rx Respimat] metFORMIN XR [Glucophage XR] 500 mg PO QDAY #90 tab 09/30/19 10/14/19 Unknown Rx traMADoL [Ultram 50 MG tab] 50 mg PO Q6H PRN #14 tablet 09/30/19 10/14/19 Unknown Rx Azithromycin [Zithromax Z-LUAN] 250 mg PO DAILY #6 tab 10/17/19 Unknown Rx Insulin NPH/Regular [NovoLIN 70/30] 30 unit SUB-Q BIDDIAB #2 vial 10/17/19 10/14/19 Unknown Rx predniSONE [Deltasone] 40 mg PO QDAY #7 tablet 10/17/19 Unknown Rx Albuterol Sulfate [Proventil Hfa] 2 puff IH Q4HR PRN #1 hfa.aer.ad 11/14/19 Unknown Rx predniSONE [Deltasone] 50 mg PO QDAY #5 tab 11/14/19 Unknown Rx ED Physical Exam - General Limitations: No Limitations General appearance: alert, in no apparent distress - Head Head exam: Present: atraumatic, normocephalic - Eye Eye exam: Present: normal appearance, PERRL, EOMI - ENT ENT exam: Present: mucous membranes moist - Neck Neck exam: Present: normal inspection - Respiratory Respiratory exam: Present: respiratory distress, wheezes. Absent: normal lung sounds bilaterally, rales, rhonchi - Cardiovascular Cardiovascular Exam: Present: normal rhythm, tachycardia, normal heart sounds. Absent: systolic murmur, diastolic murmur, rubs, gallop - GI/Abdominal GI/Abdominal exam: Present: soft, normal bowel sounds. Absent: distended, tenderness, guarding, rebound, rigid - Extremities Exam Extremities exam: Present: normal inspection - Back Exam Back exam: Present: normal inspection - Neurological Exam Neurological exam: Present: alert, oriented X3 - Psychiatric Psychiatric exam: Present: normal affect, normal mood - Skin Skin exam: Present: warm, dry, intact, normal color. Absent: rash ED Course Vital Signs 11/24/19 11/24/19 11/24/19 16:55 16:56 17:00 Temperature 99.9 F H Pulse Rate 128 H Pulse Rate [ Anterior Bilateral Throughout] Pulse Rate [ Anterior Throughout] Respiratory 16 Rate Respiratory Rate [Anterior Bilateral Throughout] Respiratory Rate [Anterior Throughout] Blood Pressure 153/93 Blood Pressure 153/93 [Left] O2 Sat by Pulse 98 98 99 Oximetry 11/24/19 11/24/19 11/24/19 17:15 17:31 17:45 Temperature Pulse Rate 125 H 125 H 124 H Pulse Rate [ Anterior Bilateral Throughout] Pulse Rate [ Anterior Throughout] Respiratory 14 16 11 L Rate Respiratory Rate [Anterior Bilateral Throughout] Respiratory Rate [Anterior Throughout] Blood Pressure 150/82 153/93 153/93 Blood Pressure [Left] O2 Sat by Pulse 97 97 95 Oximetry 11/24/19 11/24/19 18:01 18:30 Temperature Pulse Rate 112 H Pulse Rate [ 112 H Anterior Bilateral Throughout] Pulse Rate [ 110 H Anterior Throughout] Respiratory 16 Rate Respiratory 19 Rate [Anterior Bilateral Throughout] Respiratory 19 Rate [Anterior Throughout] Blood Pressure 153/93 Blood Pressure [Left] O2 Sat by Pulse 98 Oximetry ED Medical Decision Making - Lab Data Result diagrams: 11/24/19 17:32 11/24/19 17:32 Lab Results 11/24/19 11/24/19 11/24/19 Range/Units 17:32 17:32 17:32 WBC 5.6 (4.5-11.0) K/mm3 RBC 3.97 (3.65-5.03) M/mm3 Hgb 14.4 H (10.1-14.3) gm/dl Hct 42.3 (30.3-42.9) % MCV 107 H (79-97) fl MCH 36 H (28-32) pg MCHC 34 (30-34) % RDW 14.1 (13.2-15.2) % Plt Count 195 (140-440) K/mm3 Lymph % (Auto) 49.2 H (13.4-35.0) % Mclennan % (Auto) 5.4 (0.0-7.3) % Eos % (Auto) 0.2 (0.0-4.3) % Baso % (Auto) 1.7 (0.0-1.8) % Lymph # 2.7 (1.2-5.4) K/mm3 Mclennan # 0.3 (0.0-0.8) K/mm3 Eos # 0.0 (0.0-0.4) K/mm3 Baso # 0.1 (0.0-0.1) K/mm3 Seg Neutrophils % 43.5 (40.0-70.0) % Seg Neutrophils # 2.4 (1.8-7.7) K/mm3 PT 13.8 (12.2-14.9) Sec. INR 1.05 (0.87-1.13) APTT 28.0 (24.2-36.6) Sec. D-Dimer 775.91 H (0-234) ng/mlDDU ABG pH (7.350-7.450) pH Units ABG pCO2 mm Hg ABG pO2 (80.0-90.0) mm Hg ABG HCO3 (20.0-26.0) mmol/L ABG O2 Saturation (95.0-99.0) % ABG O2 Content (0.0-44) ABG Base Excess (-2.0-3.0) mmol/L ABG Hemoglobin (12.0-16.0) gm/dl ABG Carboxyhemoglobin (0.0-5.0) % ABG Methemoglobin (0.0-1.5) % Oxyhemoglobin (95.0-99.0) % FiO2 % Sodium 137 (137-145) mmol/L Potassium 3.2 L (3.6-5.0) mmol/L Chloride 101.5 (98-107) mmol/L Carbon Dioxide 22 (22-30) mmol/L Anion Gap 17 mmol/L BUN 20 H (7-17) mg/dL Creatinine 0.7 (0.7-1.2) mg/dL Estimated GFR > 60 ml/min BUN/Creatinine Ratio 29 % Glucose 129 H (65-100) mg/dL Lactic Acid (0.7-2.0) mmol/L Calcium 10.0 (8.4-10.2) mg/dL Total Bilirubin < 0.20 (0.1-1.2) mg/dL AST 17 (5-40) units/L ALT 9 (7-56) units/L Alkaline Phosphatase 133 H (35-129) units/L Troponin T (0.00-0.029) ng/mL NT-Pro-B Natriuret Pep 23.20 (0-900) pg/mL Total Protein 7.9 (6.3-8.2) g/dL Albumin 4.5 (3.9-5) g/dL Albumin/Globulin Ratio 1.3 % 11/24/19 11/24/19 11/24/19 Range/Units 17:32 17:32 17:55 WBC (4.5-11.0) K/mm3 RBC (3.65-5.03) M/mm3 Hgb (10.1-14.3) gm/dl Hct (30.3-42.9) % MCV (79-97) fl MCH (28-32) pg MCHC (30-34) % RDW (13.2-15.2) % Plt Count (140-440) K/mm3 Lymph % (Auto) (13.4-35.0) % Mclennan % (Auto) (0.0-7.3) % Eos % (Auto) (0.0-4.3) % Baso % (Auto) (0.0-1.8) % Lymph # (1.2-5.4) K/mm3 Mclennan # (0.0-0.8) K/mm3 Eos # (0.0-0.4) K/mm3 Baso # (0.0-0.1) K/mm3 Seg Neutrophils % (40.0-70.0) % Seg Neutrophils # (1.8-7.7) K/mm3 PT (12.2-14.9) Sec. INR (0.87-1.13) APTT (24.2-36.6) Sec. D-Dimer (0-234) ng/mlDDU ABG pH 7.422 (7.350-7.450) pH Units ABG pCO2 38.4 mm Hg ABG pO2 72.6 L (80.0-90.0) mm Hg ABG HCO3 24.4 (20.0-26.0) mmol/L ABG O2 Saturation 95.3 (95.0-99.0) % ABG O2 Content 19.5 (0.0-44) ABG Base Excess 0.2 (-2.0-3.0) mmol/L ABG Hemoglobin 14.8 (12.0-16.0) gm/dl ABG Carboxyhemoglobin 1.1 (0.0-5.0) % ABG Methemoglobin 0.6 (0.0-1.5) % Oxyhemoglobin 93.7 L (95.0-99.0) % FiO2 21 % Sodium (137-145) mmol/L Potassium (3.6-5.0) mmol/L Chloride (98-107) mmol/L Carbon Dioxide (22-30) mmol/L Anion Gap mmol/L BUN (7-17) mg/dL Creatinine (0.7-1.2) mg/dL Estimated GFR ml/min BUN/Creatinine Ratio % Glucose (65-100) mg/dL Lactic Acid 1.00 (0.7-2.0) mmol/L Calcium (8.4-10.2) mg/dL Total Bilirubin (0.1-1.2) mg/dL AST (5-40) units/L ALT (7-56) units/L Alkaline Phosphatase (35-129) units/L Troponin T < 0.010 (0.00-0.029) ng/mL NT-Pro-B Natriuret Pep (0-900) pg/mL Total Protein (6.3-8.2) g/dL Albumin (3.9-5) g/dL Albumin/Globulin Ratio % - EKG Data -: EKG Interpreted by Me EKG shows normal: sinus rhythm, axis, intervals, QRS complexes, ST-T waves Rate: tachycardia - EKG Data Interpretation: normal EKG - Radiology Data [facility] [address] [place] [address] XRay Report Signed Patient: SIRI JEAN MR# : [id number] : 1955 Acct:[id number] Age/Sex: 64 / F ADM Date: 11/24/19 Loc: ED Attending Dr: Ordering Physician: AYALA HOWARD MD Date of Service: 11/24/19 Procedure(s): XR chest 1V ap Accession Number(s): [id number] cc: AYALA HOWARD MD Fluoro Time In Minutes: CHEST 1 VIEW 1816 INDICATION / CLINICAL INFORMATION: MAIN: dyspnea; pt presents to ed with complaint of sob. COMPARISON: 11/14/2019 FINDINGS: SUPPORT DEVICES: None HEART / MEDIASTINUM: No significant abnormality. LUNGS / PLEURA: Slight atelectasis is seen in the right base. No definite areas of consolidation are noted. No pneumothorax. ADDITIONAL FINDINGS: No significant additional findings. IMPRESSION: No significant acute abnormality Signer Name: Eleno Denise MD Signed: 11/24/2019 6:47 PM Workstation Name: [id number] Transcribed By: GJ Dictated By: Eleno Denise MD Electronically Authenticated By: Eleno Denise MD Signed Date/Time: 11/24/19 9296 - Medical Decision Making Patient is 64-year-old F Brazilian female is presenting with diffuse wheeze. Pa andrea is laboratory studies are not suggestive at this time of coronavirus but is more likely consistent with her COPD which is exacerbated. We are still waiting for the patient CRP and ferritin level. Patient is still wheezing very short of breath and tachycardic after neb treatments. Patient be admitted to the hospitalist service. Critical Care Time: Yes (30) Critical care attestation.: If time is entered above; I have spent that time in minutes in the direct care of this critically ill patient, excluding procedure time. ED Disposition Clinical Impression: COPD exacerbation Disposition: OP ADMIT IP TO THIS HOSP Is pt being admited?: Yes Does the pt Need Aspirin: No Condition: Stable Instructions: Chronic Obstructive Pulmonary Disease (ED) Referrals: PRIMARY CARE, [Primary Care Provider] - 3-5 Days Time of Disposition: 19:14
[2019-11-24] MEDS ORDERED: ACETAMINOPHEN 325 MG TAB PO PRN (19:15)
[2019-11-24] MEDS ORDERED: WITCH HAZEL/ GLYCERIN PAD TP PRN (20:50)
[2019-11-24] MEDS ORDERED: DEXTROSE 50% IN WATER (25GM) 50 ML SYRINGE IV PRN (20:51)
[2019-11-24] MEDS ORDERED: BUDESONIDE IH SCH (22:00)
[2019-11-24] MEDS ORDERED: QUEtiapine 200 MG TAB PO SCH (22:00)
[2019-11-24] MEDS ORDERED: INHAL IH SCH (22:00)
[2019-11-24] MEDS ORDERED: [UNRECOGNIZED DRUG - OTHER] IH SCH (22:00)
[2019-11-24] MEDS ORDERED: FORMOTEROL FUMARATE IH SCH (22:00)
[2019-11-24] MEDS ORDERED: QUEtiapine 100 MG TAB ONE (22:25)
[2019-11-24] MEDS: ONDANSETRON 4 MG/2 ML INJ IV PRN (22:41)
[2019-11-24] MEDS: methylPREDNISolone Sod Succinate 40 MG/1 ML INJ IV SCH (22:43)
[2019-11-24] MEDS: traMADol 50 MG TAB PO PRN (22:45)
[2019-11-24] MEDS: guaiFENesin ER 600 MG TAB PO SCH (22:46)
[2019-11-25 00:31] LABS: C-Reactive Protein 0.6 mg/dL (0.00-1.30)
[2019-11-25] MEDS: INSULIN LISPRO 100 UNIT/ML SUB-Q SCH ×3 (03:27→11:50)
[2019-11-25 05:41] LABS: Eosinophils % (Auto) 0.5 % (0.0-4.3); Hematocrit 39.8 % (30.3-42.9); Hemoglobin 13.7 gm/dl (10.1-14.3); Lymphocytes # (Auto) 1.3 K/mm3 (1.2-5.4); Lymphocytes % (Auto) 35.5 % (13.4-35.0); Mean Corpuscular HGB Conc 34 % (30-34); Mean Corpuscular Volume 107 fl (79-97); Monocytes # (Auto) 0.1 K/mm3 (0.0-0.8); Monocytes % (Auto) 1.8 % (0.0-7.3); Platelet Count 175 K/mm3 (140-440); Red Blood Count 3.72 M/mm3 (3.65-5.03); Red Cell Distribution Width 14.1 % (13.2-15.2)
[2019-11-25 05:52] LABS: BUN/Creatinine Ratio 29; Blood Urea Nitrogen 20 mg/dL (7-17); Calcium 9.3 mg/dL (8.4-10.2); Hemolysis Index 126
[2019-11-25 07:03] LABS: Bacteria,Urine 1+ /HPF (Negative); Bilirubin,Urine NEG (Negative); Blood,Urine NEG (Negative); Color,Urine Yellow (Yellow); Mucus,Urine FEW /HPF; Protein,Urine <15 mg/dL mg/dL (Negative); Urobilinogen,Urine < 2.0 mg/dL (<2.0)
[2019-11-25] MEDS ORDERED: ARFORMOTEROL 15 MCG/2 ML NEBU IH SCH (08:00)
[2019-11-25] MEDS ORDERED: BUDESONIDE 0.5 MG/2 ML NEBU IH SCH (08:00)
[2019-11-25] MEDS: guaiFENesin ER 600 MG TAB PO SCH (09:24)
[2019-11-25] MEDS: traMADol 50 MG TAB PO PRN (09:24)
[2019-11-25] MEDS: methylPREDNISolone Sod Succinate 40 MG/1 ML INJ IV SCH (09:25)
[2019-11-25] MEDS: ONDANSETRON 4 MG/2 ML INJ IV PRN (09:25)
[2019-11-25] MEDS ORDERED: GENVOYA PO SCH (10:00)
[2019-11-25] MEDS ORDERED: [UNRECOGNIZED DRUG - OTHER] PO SCH (10:00)
[2019-11-25] MEDS ORDERED: TIOTROPIUM 18 MCG CAP INHALATION IH SCH (10:00)
[2019-11-25] MEDS: cefTRIAXone/NS 2 GM/100 ML 2 GM/100 ML BAG IV SCH (10:55)
[2019-11-25] MEDS: FUROSEMIDE 40 MG TAB PO SCH ×2 (11:53→14:48)
[2019-11-25] MEDS: amLODIPine 5 MG TAB PO SCH ×2 (11:54→14:47)
--- NOTE | 2019-11-25 12:24 | Progress Note ---
Subjective Date of service: 11/25/19 Objective - Constitutional Vitals: Vital Signs - 12hr 11/25/19 11/25/19 11/25/19 01:39 07:40 07:41 Temperature 98.0 F Pulse Rate 112 H Pulse Rate [ 107 H Anterior Bilateral Throughout] Respiratory 18 Rate Respiratory 20 Rate [Anterior Bilateral Throughout] Blood Pressure 107/66 O2 Sat by Pulse 93 97 Oximetry 11/25/19 11/25/19 07:44 11:54 Temperature 98.0 F Pulse Rate 101 H 101 H Pulse Rate [ Anterior Bilateral Throughout] Respiratory 18 Rate Respiratory Rate [Anterior Bilateral Throughout] Blood Pressure 110/69 110/69 O2 Sat by Pulse 96 Oximetry - Labs CBC & Chem 7: 11/25/19 05:26 11/25/19 05:26 Labs: Abnormal lab results 11/24/19 11/24/19 11/24/19 Range/Units 17:32 17:32 17:32 WBC (4.5-11.0) K/mm3 Hgb 14.4 H (10.1-14.3) gm/dl MCV 107 H (79-97) fl MCH 36 H (28-32) pg Lymph % (Auto) 49.2 H (13.4-35.0) % D-Dimer 775.91 H (0-234) ng/mlDDU ABG pO2 (80.0-90.0) mm Hg Oxyhemoglobin (95.0-99.0) % Sodium (137-145) mmol/L Potassium 3.2 L (3.6-5.0) mmol/L Carbon Dioxide (22-30) mmol/L BUN 20 H (7-17) mg/dL Glucose 129 H (65-100) mg/dL POC Glucose (70-105) Alkaline Phosphatase 133 H (35-129) units/L Lactate Dehydrogenase (91-180) units/L 11/24/19 11/24/19 11/24/19 Range/Units 17:32 17:55 21:23 WBC (4.5-11.0) K/mm3 Hgb (10.1-14.3) gm/dl MCV (79-97) fl MCH (28-32) pg Lymph % (Auto) (13.4-35.0) % D-Dimer (0-234) ng/mlDDU ABG pO2 72.6 L (80.0-90.0) mm Hg Oxyhemoglobin 93.7 L (95.0-99.0) % Sodium (137-145) mmol/L Potassium (3.6-5.0) mmol/L Carbon Dioxide (22-30) mmol/L BUN (7-17) mg/dL Glucose (65-100) mg/dL POC Glucose 187 H (70-105) Alkaline Phosphatase (35-129) units/L Lactate Dehydrogenase 277 H (91-180) units/L 11/25/19 11/25/19 11/25/19 Range/Units 05:26 05:26 07:55 WBC 3.6 L (4.5-11.0) K/mm3 Hgb (10.1-14.3) gm/dl MCV 107 H (79-97) fl MCH 37 H (28-32) pg Lymph % (Auto) 35.5 H (13.4-35.0) % D-Dimer (0-234) ng/mlDDU ABG pO2 (80.0-90.0) mm Hg Oxyhemoglobin (95.0-99.0) % Sodium 135 L (137-145) mmol/L Potassium 5.4 H D (3.6-5.0) mmol/L Carbon Dioxide 19 L (22-30) mmol/L BUN 20 H (7-17) mg/dL Glucose 361 H (65-100) mg/dL POC Glucose 315 H (70-105) Alkaline Phosphatase (35-129) units/L Lactate Dehydrogenase (91-180) units/L
--- NOTE | 2019-11-25 12:38 | Discharge Summary ---
Providers - Providers Date of Admission: 11/24/19 19:15 Date of discharge: 11/25/19 Attending physician: CLAUS GILLETTE Primary care physician: COLD STRIP FEEDER Hospitalization Condition: Stable Pertinent studies: CXR - no infiltrates Hospital course: 64-year-old woman with history of COPD, schizophrenia, HIV, bipolar, diastolic CHF. Well-known to the hospital. She presents with shortness of breath wheezing and coughing. Patient was admitted to medical floor with scheduled nebs, iv abx, iv steroids and supplemental O2 to keep O2 sat at 94%. CXR showed no infiltrates. Patients symptom improved with medical management. [facility] with [facility] f/u. Discharge diagnosis and Mx: /Acute hypoxic respiratory failure due to COPD exacerbation Mx with Supplemental oxygen, nebulizer therapy, supplemental oxygen, pulse oximetry, NIPPV as clinically indicated. / COPD exacerbation Placed on supplemental oxygen, steroid therapy, pulse oximetry, NIPPV as clinically indicated. /diastolic CHF with pEF, compensated need further outpt f/u /Pleuretic chest pain, worse with cough - Recommended supportive care for now, CE was negative /Hyperkalemia, s/p kayexalate and sodium bicarbonate / History of HIV or AIDS Continued antiretroviral therapy, supportive care. / Hypertension Monitored blood pressure every shift, continue medical management. /Diabetes type 2, uncontrolled due to steroid Placed on Sliding scale insulin, consistent carbohydrate diet, Accu-Chek, hyp oglycemia protocol. adjusted insulin dose to prevent hypoglycemia /Bipolar 1 disorder supportive care, continued prehospital medication. / DVT prophylaxis SCD to bilateral lower extremities while in bed, prophylactic heparin. Disposition: home with Physical Exam - Physical Exam Narrative exam: General appearance: Present: mild distress, obese - EENT Eyes: PERRL, EOM intact ENT: hearing intact, clear oral mucosa Ears: bilateral: normal - Neck Neck: supple, normal ROM - Respiratory Respiratory effort: normal Respiratory: bilateral: wheezing - Cardiovascular Rhythm: regular Heart Sounds: Present: S1 & S2. Absent: gallop, rub Extremities: pulses intact, No edema, normal color, Full ROM - Gastrointestinal General gastrointestinal: Present: soft, non-tender, non-distended, normal bowel sounds - Integumentary Integumentary: clear, warm, dry - Musculoskeletal Musculoskeletal: 1, strength equal bilaterally - Neurologic Neurologic: moves all extremities - Psychiatric Psychiatric: memory intact, appropriate mood/affect, intact judgment & insight Disposition: [id number] HOME UNDER HOME [facility] Time spent for discharge: 34 minutes Core Measure Documentation - Palliative Care Palliative Care/ Comfort Measures: Not Applicable - Core Measures Any of the following diagnoses?: history only Exam - Constitutional Vitals: Temp Pulse Resp BP Pulse Ox 98.0 F 101 H 18 110/69 96 11/25/19 07:44 11/25/19 11:54 11/25/19 07:44 11/25/19 11:54 11/25/19 07:44 Plan Activity: advance as tolerated Weight Bearing Status: Weight Bear as Tolerated Diet: diabetic Follow up with: PRIMARY CARE, [Primary Care Provider] - 3-5 Days Prescriptions: predniSONE [Deltasone] 40 mg PO QDAY #7 tablet guaiFENesin ER [Mucinex ER] 600 mg PO BID #10 tablet ALBUTEROL NEB's [Proventil 0.083% NEBS] 2.5 mg IH TID PRN #30 neb PRN Reason: Wheezing Albuterol Sulfate [Proventil Hfa] 2 puff IH Q4HR PRN #1 hfa.aer.ad PRN Reason: Wheezing Azithromycin [Zithromax Z-LUAN] 250 mg PO DAILY #6 tab
[2019-11-25] MEDS ORDERED: SODIUM POLYSTYRENE 15 GM/60 ML ORAL LIQD PO ONE (13:00)
[2019-11-25] MEDS ORDERED: SODIUM BICARB 8.4% 50 MEQ/50 ML SYRINGE IV ONE (13:00)
[2019-11-25 13:24] VITALS: BP 142/86
== END 2019-11-25 16:30 | disposition home health service (06) ==
LOC: ED 16:47 → 2B-ACE 19:15
PROVIDERS: ADMIT Internal Medicine; ATTEND Internal Medicine
DX: B20 Human immunodeficiency virus [HIV] disease (principal); J44.1 Chronic obstructive pulmonary disease with (acute) exacerbation; I11.0 Hypertensive heart disease with heart failure; I50.9 Heart failure, unspecified; E11.9 Type 2 diabetes mellitus without complications; R56.9 Unspecified convulsions; F31.9 Bipolar disorder, unspecified; F20.9 Schizophrenia, unspecified; Z90.710 Acquired absence of both cervix and uterus; Z98.890 Other specified postprocedural states; Z79.4 Long term (current) use of insulin; Z86.711 Personal history of pulmonary embolism
CPT/HCPCS: 36415; 71045; 80048; 80053; 81001; 82140; 82728; 82803; 82962; 83615; 83880; 84145; 84484; 85025; 85379; 85610; 85730; 86140; 87040; 93005; 93010; 94640; 94644; 96365; 96366; 96368; 96375; 96376; 99291; G0378; J0696; J2270; J2405; J2920; J2930; J3475; J7040; J1815

== ENCOUNTER 2019-12-20 10:02 | Observation (INO) | payer MEDICARE ==
[2019-12-20] MEDS ORDERED: IPRATROPIUM/ALBUTEROL SULFATE 3 ML AMPUL.NEB IH ONE (10:29)
--- NOTE | 2019-12-20 10:46 | Emergency Department Report ---
ED Chest Pain HPI - General Chief Complaint: Chest Pain Stated Complaint: HYPERGLYCEMIA/CHEST PAIN Time Seen by Provider: 12/20/19 10:29 Source: patient, EMS Mode of arrival: Stretcher Limitations: No Limitations - History of Present Illness Initial Comments: This is a 64-year-old female with multiple history of emergency department visits and impaired questionable compliance. She states that she had chest pain and shortness of breath this morning. The chest pain was anterior and tight. She was short of breath. EMS arrived and found her glucose to be over 500. She has multiple medical comorbidities. She does not report excessive cough. She i s not wheezing on arrival. She states that she is taking her medication. Her last insulin dose was last night. Last discharge summary: 64-year-old woman with history of COPD, schizophrenia, HIV, bipolar, diastolic CHF. Well-known to the hospital. She presents with shortness of breath wheezing and coughing. Patient was admitted to medical floor with scheduled nebs, iv abx, iv steroids and supplemental O2 to keep O2 sat at 94%. CXR showed no infiltrates. Patients symptom improved with medical management. [facility] was [facility] in [facility] condition with outpt f/u. Discharge diagnosis and Mx: /Acute hypoxic respiratory failure due to COPD exacerbation Mx with Supplemental oxygen, nebulizer therapy, supplemental oxygen, pulse oximetry, NIPPV as clinically indicated. / COPD exacerbation Placed on supplemental oxygen, steroid therapy, pulse oximetry, NIPPV as clinically indicated. /diastolic CHF with pEF, compensated need further outpt f/u /Pleuretic chest pain, worse with cough - Recommended supportive care for now, CE was negative /Hyperkalemia, s/p kayexalate and sodium bicarbonate / History of HIV or AIDS Continued antiretroviral therapy, supportive care. / Hypertension Monitored blood pressure every shift, continue medical management. /Diabetes type 2, uncontrolled due to steroid Placed on Sliding scale insulin, consistent carbohydrate diet, Accu-Chek, hypoglycemia protocol. adjusted insulin dose to prevent hypoglycemia /Bipolar 1 disorder supportive care, continued prehospital medication. / DVT prophylaxis SCD to bilateral lower extremities while in bed, prophylactic heparin. Disposition: home with Last cardiology consultation: - Patient Problems (1) Acute exacerbation of chronic obstructive pulmonary disease (COPD) Current Visit: Yes Status: Acute (2) Acute hypoxemic respiratory failure Current Visit: Yes Status: Acute (3) Pleuritic chest pain Current Visit: Yes Status: Acute (4) Acute heart failure with preserved ejection fraction (HFpEF) Current Visit: Yes Status: Acute (5) Hypertension Current Visit: Yes Status: Chronic Qualifiers: (6) Diabetes Current Visit: Yes Status: Chronic (7) HIV (human immunodeficiency virus infection) Current Visit: Yes Status: Chronic Qualifiers: HIV symptom status: unspecified Qualified Code(s): B20 - Human immunodeficiency virus [HIV] disease (8) Seizure disorder Current Visit: Yes Status: Acute (9) Schizophrenia Current Visit: Yes Status: Chronic Qualifiers: MD Complaint: chest pain -: Gradual, hour(s) Onset: during rest Pain Location: substernal Pain Radiation: none Severity: moderate Severity scale (0 -10): 8 Quality: tightness Consistency: intermittent Improves With: nothing Worsens With: nothing re: dyspnea Other Symptoms: cough (Occasional). denies: fever, syncope Treatments Prior to Arrival: none Aspirin use within the Past 7 Days: (0) No - Related Data Home Medications Medication Instructions Recorded Confirmed Last Taken Furosemide [Lasix TAB] 40 mg PO QDAY 03/23/18 10/14/19 07/28/19 Previous Rx's Medication Instructions Recorded Last Taken Type amLODIPine 5 mg PO QDAY #30 tablet 07/29/17 07/28/19 Rx Budesonide/Formoterol Fumarate 2 inhalation IH BID #1 hfa.aer.ad 09/30/19 Unknown Rx [Symbicort 160-4.5 Mcg Inhaler] Elviteg/Cob/Emtri/Tenof Alafen 1 each PO DAILY #30 tablet 09/30/19 Unknown Rx [Genvoya Tablet] Genvoya Tablet 1 tab PO DAILY #90 tab 09/30/19 Unknown Rx Glycerin/Witch Lise Pad [Tucks 1 each TP PRN PRN #1 box 09/30/19 Unknown Rx Pad] Insulin Regular, Human [HumuLIN R] 0 unit SQ AC #1 vial 09/30/19 Unknown Rx QUEtiapine [SEROquel] 200 mg PO QHS #90 tablet 09/30/19 Unknown Rx Tiotropium Pointblank [Spiriva 2 inhalation IH DAILY #1 mist.inhal 09/30/19 Unknown Rx Respimat] metFORMIN XR [Glucophage XR] 500 mg PO QDAY #90 tab 09/30/19 Unknown Rx traMADoL [Ultram 50 MG tab] 50 mg PO Q6H PRN #14 tablet 09/30/19 Unknown Rx Insulin NPH/Regular [NovoLIN 70/30] 30 unit SUB-Q BIDDIAB #2 vial 10/17/19 Unknown Rx ALBUTEROL NEB's [Proventil 0.083% 2.5 mg IH TID PRN #30 neb 11/25/19 Unknown Rx NEBS] Albuterol Sulfate [Proventil Hfa] 2 puff IH Q4HR PRN #1 hfa.aer.ad 11/25/19 Unknown Rx Azithromycin [Zithromax Z-LUAN] 250 mg PO DAILY #6 tab 11/25/19 Unknown Rx Ondansetron (Nf) [Zofran TAB] 8 mg PO Q8HR PRN #14 tablet 11/25/19 Unknown Rx Pantoprazole [Protonix] 40 mg PO QDAY #30 tablet 11/25/19 Unknown Rx guaiFENesin ER [Mucinex ER] 600 mg PO BID #10 tablet 11/25/19 Unknown Rx predniSONE [Deltasone] 40 mg PO QDAY #7 tablet 11/25/19 Unknown Rx Allergies Allergy/AdvReac Type Severity Reaction Status Date / Time shellfish derived Allergy Severe Shortness Verified 11/14/19 15:47 of Breath ibuprofen [From Motrin] Allergy Mild Shortness Verified 11/14/19 15:47 of Breath tetracycline Allergy Shortness Verified 11/14/19 15:47 of Breath Heart Score - HEART Score History: Moderately suspicious EKG: Non-specific Age: 45-65 Risk factors: > 3 risk factors or hx of atherosclerotic disease Troponin: < normal limit HEART Score: 5 - Critical Actions Critical Actions: 4-6 pts:12-16.6% risk of adverse cardiac event. Should be admitted ED Review of Systems ROS: Stated complaint: HYPERGLYCEMIA/CHEST PAIN Other details as noted in HPI Constitutional: denies: chills, fever Eyes: denies: eye pain, eye discharge, vision change ENT: denies: ear pain, throat pain Respiratory: cough, shortness of breath. denies: wheezing Cardiovascular: chest pain. denies: palpitations Endocrine: no symptoms reported Gastrointestinal: denies: abdominal pain, nausea, diarrhea Genitourinary: denies: urgency, dysuria, discharge Musculoskeletal: denies: back pain, joint swelling, arthralgia Skin: denies: rash, lesions Neurological: denies: headache, weakness, paresthesias Psychiatric: denies: anxiety, depression Hematological/Lymphatic: denies: easy bleeding, easy bruising ED Past Medical Hx - Past Medical History Hx Hypertension: Yes Hx Congestive Heart Failure: Yes Hx Diabetes: Yes Hx Deep Vein Thrombosis: No Hx Pulmonary Embolism: Yes Hx GERD: No Hx Renal Disease: No Hx Arthritis: No Hx Seizures: Yes Hx Kidney Stones: No Hx Psychiatric Treatment: Yes (bipolar disorder; schziphornia) Hx Asthma: No Hx COPD: No Hx Tuberculosis: No Hx Dementia: No Hx HIV: Yes Additional medical history: CDIFF, spinal stenosis - Surgical History Hx Open Heart Surgery: No Hx Pacemaker: No Hx Internal Defibrillator: No Hx Cholecystectomy: No Hx Appendectomy: No Hx Breast Surgery: No Additional Surgical History: hysterectomy; rt arm skin graph - Social History Smoking Status: Never Smoker Substance Use Type: None - Medications Home Medications: Home Medications Medication Instructions Recorded Confirmed Last Taken Type amLODIPine 5 mg PO QDAY #30 tablet 07/29/17 10/14/19 07/28/19 Rx Furosemide [Lasix TAB] 40 mg PO QDAY 03/23/18 10/14/19 07/28/19 History Budesonide/Formoterol Fumarate 2 inhalation IH BID #1 hfa.aer.ad 09/30/19 10/14/19 Unknown Rx [Symbicort 160-4.5 Mcg Inhaler] Elviteg/Cob/Emtri/Tenof Alafen 1 each PO DAILY #30 tablet 09/30/19 10/14/19 Unknown Rx [Genvoya Tablet] Genvoya Tablet 1 tab PO DAILY #90 tab 09/30/19 10/14/19 Unknown Rx Glycerin/Witch Lise Pad [Tucks 1 each TP PRN PRN #1 box 09/30/19 10/14/19 Unknown Rx Pad] Insulin Regular, Human [HumuLIN R] 0 unit SQ AC #1 vial 09/30/19 10/14/19 Unknown Rx QUEtiapine [SEROquel] 200 mg PO QHS #90 tablet 09/30/19 10/14/19 Unknown Rx Tiotropium Pointblank [Spiriva 2 inhalation IH DAILY #1 mist.inhal 09/30/19 10/14/19 Unknown Rx Respimat] metFORMIN XR [Glucophage XR] 500 mg PO QDAY #90 tab 09/30/19 10/14/19 Unknown Rx traMADoL [Ultram 50 MG tab] 50 mg PO Q6H PRN #14 tablet 09/30/19 10/14/19 Unknown Rx Insulin NPH/Regular [NovoLIN 70/30] 30 unit SUB-Q BIDDIAB #2 vial 10/17/19 10/14/19 Unknown Rx ALBUTEROL NEB's [Proventil 0.083% 2.5 mg IH TID PRN #30 neb 11/25/19 Unknown Rx NEBS] Albuterol Sulfate [Proventil Hfa] 2 puff IH Q4HR PRN #1 hfa.aer.ad 11/25/19 Unknown Rx Azithromycin [Zithromax Z-LUAN] 250 mg PO DAILY #6 tab 11/25/19 Unknown Rx Ondansetron (Nf) [Zofran TAB] 8 mg PO Q8HR PRN #14 tablet 11/25/19 Unknown Rx Pantoprazole [Protonix] 40 mg PO QDAY #30 tablet 11/25/19 Unknown Rx guaiFENesin ER [Mucinex ER] 600 mg PO BID #10 tablet 11/25/19 Unknown Rx predniSONE [Deltasone] 40 mg PO QDAY #7 tablet 11/25/19 Unknown Rx ED Physical Exam - General Limitations: Physical Limitation, Other (Psychiatric disorder) General appearance: alert, in no apparent distress - Head Head exam: Present: atraumatic, normocephalic - Eye Eye exam: Present: normal appearance. Absent: scleral icterus - ENT ENT exam: Present: mucous membranes moist - Neck Neck exam: Present: normal inspection. Absent: meningismus - Respiratory Respiratory exam: Present: wheezes (Bilaterally), prolonged expiratory. Absent: respiratory distress - Cardiovascular Cardiovascular Exam: Present: normal rhythm, tachycardia. Absent: systolic murmur, diastolic murmur, rubs, gallop - GI/Abdominal GI/Abdominal exam: Present: soft, normal bowel sounds. Absent: distended, tenderness, guarding, rebound, rigid - Extremities Exam Extremities exam: Present: normal inspection. Absent: tenderness, pedal edema, joint swelling, calf tenderness - Back Exam Back exam: Present: normal inspection - Neurological Exam Neurological exam: Present: alert, oriented X3, CN II-XII intact. Absent: motor sensory deficit - Psychiatric Psychiatric exam: Present: normal affect, normal mood - Skin Skin exam: Present: warm, dry, intact, normal color. Absent: rash ED Course Vital Signs 12/20/19 12/20/19 12/20/19 10:14 10:16 10:30 Temperature 99.1 F 99.1 F Pulse Rate 112 H 112 H 114 H Pulse Rate [ Anterior Bilateral Throughout] Respiratory 18 18 11 L Rate Respiratory Rate [Anterior Bilateral Throughout] Blood Pressure 134/90 Blood Pressure 134/90 [Left] O2 Sat by Pulse 99 99 95 Oximetry 12/20/19 12/20/19 12/20/19 10:46 11:00 11:16 Temperature Pulse Rate 101 H 106 H Pulse Rate [ Anterior Bilateral Throughout] Respiratory 10 L 11 L Rate Respiratory Rate [Anterior Bilateral Throughout] Blood Pressure Blood Pressure [Left] O2 Sat by Pulse 96 96 93 Oximetry 12/20/19 12/20/19 12/20/19 11:40 11:42 11:48 Temperature Pulse Rate 106 H Pulse Rate [ 106 H Anterior Bilateral Throughout] Respiratory Rate Respiratory 16 Rate [Anterior Bilateral Throughout] Blood Pressure 138/106 138/106 Blood Pressure [Left] O2 Sat by Pulse 99 Oximetry 12/20/19 12/20/19 12/20/19 12:00 12:16 12:30 Temperature Pulse Rate 108 H 109 H 103 H Pulse Rate [ Anterior Bilateral Throughout] Respiratory 14 16 15 Rate Respiratory Rate [Anterior Bilateral Throughout] Blood Pressure 138/106 138/106 138/106 Blood Pressure [Left] O2 Sat by Pulse 99 97 98 Oximetry 12/20/19 12/20/19 12/20/19 12:46 13:00 13:16 Temperature Pulse Rate 99 H 102 H 106 H Pulse Rate [ Anterior Bilateral Throughout] Respiratory 13 11 L 10 L Rate Respiratory Rate [Anterior Bilateral Throughout] Blood Pressure 138/106 138/106 138/106 Blood Pressure [Left] O2 Sat by Pulse 97 97 96 Oximetry 12/20/19 12/20/19 12/20/19 13:30 13:50 14:50 Temperature Pulse Rate 102 H Pulse Rate [ Anterior Bilateral Throughout] Respiratory 13 16 12 Rate Respiratory Rate [Anterior Bilateral Throughout] Blood Pressure 138/106 Blood Pressure [Left] O2 Sat by Pulse 99 Oximetry - Reevaluation(s) Reevaluation #1: Patient remained stable. She was admitted to the hospital service by Dr. Viet. A VQ scan was pending. Her potassium was supplemented prior to insulin administration. 12/20/19 15:45 JHONY score - Jhony Score Age > 65: (0) No Aspirin use within the Past 7 Days: (1) Yes 3 or more CAD Risk Factors: (1) Yes 2 or more Angina events in past 24 hrs: (0) No Known CAD with more than 50% Stenosis: (0) No Elevated Cardiac Markers: (0) No ST Deviation Greater than 0.5mm: (0) No JHONY Score: 2 ED Medical Decision Making - Lab Data Result diagrams: 12/20/19 12:12 12/20/19 12:12 Laboratory Results - last 24 hr 12/20/19 11:29 Urine Color Yellow Urine Turbidity Clear Urine pH 6.0 Ur Specific [place] 1.030 Urine Protein <15 mg/dl Urine Glucose (UA) >=500 Urine Ketones Neg Urine Blood Sm Urine Nitrite Neg Urine Bilirubin Neg Urine Urobilinogen < 2.0 Ur Leukocyte Esterase Tr Urine WBC (Auto) 5.0 Urine RBC (Auto) 5.0 U Epithel Cells (Auto) 4.0 Urine Bacteria (Auto) 1+ Urine Mucus Few Laboratory Results - last 24 hr 12/20/19 12/20/19 12/20/19 11:29 11:29 12:12 WBC RBC Hgb Hct MCV MCH MCHC RDW Plt Count Seg Neutrophils % PT INR APTT D-Dimer Sodium 134 L Chloride 91.4 L Carbon Dioxide 27 Anion Gap 18 BUN 15 Creatinine 0.7 Estimated GFR > 60 BUN/Creatinine Ratio 21 Glucose 432 H Lactic Acid Calcium 9.4 Magnesium 2.10 Transferrin Total Bilirubin AST ALT Alkaline Phosphatase Lactate Dehydrogenase Total Creatine Kinase Troponin T Total Protein Albumin Albumin/Globulin Ratio Urine Color Yellow Urine Turbidity Clear Urine pH 6.0 Ur Specific [place] 1.030 Urine Protein <15 mg/dl Urine Glucose (UA) >=500 Urine Ketones Neg Urine Blood Sm Urine Nitrite Neg Urine Bilirubin Neg Urine Urobilinogen < 2.0 Ur Leukocyte Esterase Tr Urine WBC (Auto) 5.0 Urine RBC (Auto) 5.0 U Epithel Cells (Auto) 4.0 Urine Bacteria (Auto) 1+ Urine Mucus Few Urine Opiates Screen Presumptive negative Urine Methadone Screen Presumptive negative Ur Barbiturates Screen Presumptive negative Ur Phencyclidine Scrn Presumptive negative Ur Amphetamines Screen Presumptive negative U Benzodiazepines Scrn Presumptive negative Urine Cocaine Screen Presumptive negative U Marijuana (THC) Screen Presumptive negative Drugs of Abuse Note Disclamer 12/20/19 12/20/19 12/20/19 12:12 12:12 12:12 WBC 4.4 L RBC 4.01 Hgb 14.1 Hct 41.6 MCV 104 H MCH 35 H MCHC 34 RDW 13.0 L Plt Count 216 Seg Neutrophils % Cafe Manager PT 13.5 INR 1.02 APTT 26.9 D-Dimer 864.29 H Sodium Chloride Carbon Dioxide Anion Gap BUN Creatinine Estimated GFR BUN/Creatinine Ratio Glucose Lactic Acid 1.10 Calcium Magnesium Transferrin Total Bilirubin AST ALT Alkaline Phosphatase Lactate Dehydrogenase Total Creatine Kinase Troponin T Total Protein Albumin Albumin/Globulin Ratio Urine Color Urine Turbidity Urine pH Ur Specific [place] Urine Protein Urine Glucose (UA) Urine Ketones Urine Blood Urine Nitrite Urine Bilirubin Urine Urobilinogen Ur Leukocyte Esterase Urine WBC (Auto) Urine RBC (Auto) U Epithel Cells (Auto) Urine Bacteria (Auto) Urine Mucus Urine Opiates Screen Urine Methadone Screen Ur Barbiturates Screen Ur Phencyclidine Scrn Ur Amphetamines Screen U Benzodiazepines Scrn Urine Cocaine Screen U Marijuana (THC) Screen Drugs of Abuse Note 12/20/19 12/20/19 12:12 12:12 WBC RBC Hgb Hct MCV MCH MCHC RDW Plt Count Seg Neutrophils % PT INR APTT D-Dimer Sodium Chloride Carbon Dioxide Anion Gap BUN Creatinine Estimated GFR BUN/Creatinine Ratio Glucose Lactic Acid Calcium Magnesium Transferrin 251 Total Bilirubin 0.30 AST 13 ALT 9 Alkaline Phosphatase 151 H Lactate Dehydrogenase 268 H Total Creatine Kinase 93 Troponin T < 0.010 Total Protein 7.3 Albumin 4.2 Albumin/Globulin Ratio 1.4 Urine Color Urine Turbidity Urine pH Ur Specific [place] Urine Protein Urine Glucose (UA) Urine Ketones Urine Blood Urine Nitrite Urine Bilirubin Urine Urobilinogen Ur Leukocyte Esterase Urine WBC (Auto) Urine RBC (Auto) U Epithel Cells (Auto) Urine Bacteria (Auto) Urine Mucus Urine Opiates Screen Urine Methadone Screen Ur Barbiturates Screen Ur Phencyclidine Scrn Ur Amphetamines Screen U Benzodiazepines Scrn Urine Cocaine Screen U Marijuana (THC) Screen Drugs of Abuse Note K=2.6 - EKG Data -: EKG Interpreted by Fl EKG shows normal: sinus rhythm, axis (Left axis), intervals, QRS complexes, ST-T waves Rate: normal - EKG Data Interpretation: nonspecific ST-T wave gina, LVH (Consider LVH) - Radiology Data Radiology results: image reviewed (Chest x-ray no acute process) Critical care attestation.: If time is entered above; I have spent that time in minutes in the direct care of this critically ill patient, excluding procedure time. ED Disposition Clinical Impression: Elevated d-dimer, Medical non-compliance Chest pain Qualifiers: Chest pain type: unspecified Qualified Code(s): R07.9 - Chest pain, unspecified Hyperglycemia due to type 2 diabetes mellitus Qualifiers: Diabetes mellitus snf insulin use: with snf use Qualified Code(s): E11.65 - Type 2 diabetes mellitus with hyperglycemia HIV (human immunodeficiency virus infection) Qualifiers: HIV symptom status: unspecified Qualified Code(s): B20 - Human immunodeficiency virus [HIV] disease Disposition: OP ADMIT IP TO THIS HOSP Is pt being admited?: Yes Does the pt Need Aspirin: Yes Condition: Stable Instructions: Chest Pain (ED), Diabetes Mellitus Type 2 in Adults (ED) Referrals: SANTOSH AHMADI MD [Primary Care Provider] - 3-5 Days Time of Disposition: 15:46
--- NOTE | 2019-12-20 11:08 | XRay Report ---
CHEST 1 VIEW INDICATION / CLINICAL INFORMATION: Dyspnea. COMPARISON: 11/24/2019 FINDINGS: SUPPORT DEVICES: None. HEART / MEDIASTINUM: No significant abnormality. LUNGS / PLEURA: No significant pulmonary or pleural abnormality. No pneumothorax. ADDITIONAL FINDINGS: No significant additional findings. IMPRESSION: 1. No significant change Signer Name: Edmund Anderson MD Signed: 12/20/2019 11:03 AM Workstation Name: [id number]
[2019-12-20 11:53] LABS: Bacteria,Urine 1+ /HPF (Negative); Bilirubin,Urine NEG (Negative); Blood,Urine SM (Negative); Color,Urine Yellow (Yellow); Mucus,Urine FEW /HPF; Protein,Urine <15 mg/dL mg/dL (Negative); Urobilinogen,Urine < 2.0 mg/dL (<2.0)
--- NOTE | 2019-12-20 12:05 | Cat Scan Report ---
CT ABDOMEN AND PELVIS WITHOUT CONTRAST INDICATION: Abdominal pain. Acute renal failure. COMPARISON: CT abdomen and pelvis with contrast from 09/27/2019. TECHNIQUE: Axial, coronal and sagittal CT imaging of the abdomen and pelvis was performed without co ntrast. Lack of intravenous contrast limits evaluation of the vascular and solid organs. All CT sca ns at this location are performed using CT dose reduction for ALARA by means of automated exposure co ntrol. FINDINGS: LOWER CHEST: No significant abnormality. LIVER: No significant abnormality. BILIARY: No significant abnormality. PANCREAS: No significant abnormality. SPLEEN: No significant abnormality. ADRENALS: No significant abnormality. KIDNEYS AND URETERS: No significant abnormality. GI TRACT: No acute abnormality of the stomach, small bowel, colon or appendix. Colonic diverticulosis is again seen without evidence of diverticulitis. A small hiatal hernia is unchanged. PERITONEUM: No free fluid. No free air. No fluid collection. LYMPH NODES: No significant adenopathy. VASCULATURE: No acute abnormality. Mild generalized atherosclerosis is unchanged. The previously seen IVC filter is in stable position. URINARY BLADDER: No significant abnormality. REPRODUCTIVE ORGANS: No acute abnormality. Prior hysterectomy. ADDITIONAL FINDINGS: None. SKELETAL SYSTEM: No acute abnormality. The bones are otherwise unchanged. IMPRESSION: No acute abnormality of the abdomen or pelvis. Signer Name: Perry Domingo MD Signed: 12/20/2019 12:01 PM Workstation Name: [email or web address]
[2019-12-20 12:28] LABS: Amphetamine Screen,Urine PRESUMPTIVE NEGATIVE; Benzodiazepines Screen,Urine PRESUMPTIVE NEGATIVE; Cannabinoid Screen,Urine PRESUMPTIVE NEGATIVE; Cocaine Screen,Urine PRESUMPTIVE NEGATIVE; Methadone Screen,Urine PRESUMPTIVE NEGATIVE; Opiate Screen,Urine PRESUMPTIVE NEGATIVE
[2019-12-20 13:02] LABS: Hematocrit 41.6 % (30.3-42.9); Hemoglobin 14.1 gm/dl (10.1-14.3); Mean Corpuscular HGB Conc 34 % (30-34); Mean Corpuscular Volume 104 fl (79-97); Platelet Count 216 K/mm3 (140-440); Red Blood Count 4.01 M/mm3 (3.65-5.03)
[2019-12-20 13:13] LABS: INR 1.02 (0.87-1.13)
[2019-12-20 13:14] LABS: Partial Thromboplastin Time 26.9 Sec. (24.2-36.6)
[2019-12-20 13:22] LABS: BUN/Creatinine Ratio 21; Blood Urea Nitrogen 15 mg/dL (7-17); Calcium 9.4 mg/dL (8.4-10.2); Hemolysis Index 3
[2019-12-20 13:24] LABS: Alanine Aminotransferase 9 units/L (7-56); Albumin 4.2 g/dL (3.9-5)
[2019-12-20 13:29] LABS: Bilirubin,Direct < 0.2 mg/dL (0-0.2); Creatine Kinase MB < 1.0 ng/mL (0.0-4.0)
[2019-12-20] MEDS ORDERED: POTASSIUM CHLORIDE ER 20 MEQ TAB PO ONE (13:30)
--- NOTE | 2019-12-20 13:31 | History and Physical Report ---
History of Present Illness Chief complaint: Is hard to breathe and my chest feels tight History of present illness: 64 YO Female with COPD, DM, Seizure Disorder, HTN, Bipolar, Diastolic CHF, Schizophrenia, Obesity Hypoventilation Syndrome, Seizure Disorder, HIV presents to ED for evaluation. Pt states that she has experienced shortness of breath and chest discomfort with increased productive cough with increased production of clear-yellow sputum over the past 1 week with worsening symptoms over the past 1 day. The patient acknowledges increased use of her inhaler and nebulizer therapy without significant relief. Patient acknowledges decreased exercise tolerance. EMS notified and upon arrival the patient was found to be in distress and transported to [facility] for further evaluation and care. Pt seen and evaluated in ED. lab and imaging studies reviewed. Patient found to have clinical symptoms consistent with COPD Exacerbation as well as Acute Hypoxemic respiratory failure. Patient using accessory muscles to breathe, and is unable to speak in complete and full sentences due to dypsnea. Patient placed in observation status and admitted to BERTO unit for medical stabilization due to increased likelihood of respiratory decompensation. Pt denies fever, chills, chest pain, palpitations, NVD, Syncope, Trauma, recent ill contacts, unilateral leg swelling, calf pain, prolonged travel/immobility, trauma, individual/family history of DVT/PE, hemoptysis, known ill contacts, or medication noncompliance, or known exposure to COVID-19. Prior admission on 11/24/2019 reviewed. All listed medication reconciled at time of admission. Advanced care planning conducted in ED. Past History Past Medical History: COPD, diabetes, HIV/AIDS, hypertension, seizures, other (See HPI) Past Surgical History: hysterectomy (Right arm surgery), Other Social history: single Family history: diabetes, hypertension Medications and Allergies Allergies Allergy/AdvReac Type Severity Reaction Status Date / Time shellfish derived Allergy Severe Shortness Verified 11/14/19 15:47 of Breath ibuprofen [From Motrin] Allergy Mild Shortness Verified 11/14/19 15:47 of Breath tetracycline Allergy Shortness Verified 11/14/19 15:47 of Breath Home Medications Medication Instructions Recorded Confirmed Last Taken Type amLODIPine 5 mg PO QDAY #30 tablet 07/29/17 10/14/19 07/28/19 Rx Furosemide [Lasix TAB] 40 mg PO QDAY 03/23/18 10/14/19 07/28/19 History Budesonide/Formoterol Fumarate 2 inhalation IH BID #1 hfa.aer.ad 09/30/19 10/14/19 Unknown Rx [Symbicort 160-4.5 Mcg Inhaler] Elviteg/Cob/Emtri/Tenof Alafen 1 each PO DAILY #30 tablet 09/30/19 10/14/19 Unknown Rx [Genvoya Tablet] Genvoya Tablet 1 tab PO DAILY #90 tab 09/30/19 10/14/19 Unknown Rx Glycerin/Witch Lise Pad [Tucks 1 each TP PRN PRN #1 box 09/30/19 10/14/19 Unknown Rx Pad] Insulin Regular, Human [HumuLIN R] 0 unit SQ AC #1 vial 09/30/19 10/14/19 Unknown Rx QUEtiapine [SEROquel] 200 mg PO QHS #90 tablet 09/30/19 10/14/19 Unknown Rx Tiotropium [place] [Spiriva 2 inhalation IH DAILY #1 mist.inhal 09/30/19 10/14/19 Unknown Rx Respimat] metFORMIN XR [Glucophage XR] 500 mg PO QDAY #90 tab 09/30/19 10/14/19 Unknown Rx traMADoL [Ultram 50 MG tab] 50 mg PO Q6H PRN #14 tablet 09/30/19 10/14/19 Unk nown Rx Insulin NPH/Regular [NovoLIN 70/30] 30 unit SUB-Q BIDDIAB #2 vial 10/17/19 10/14/19 Unknown Rx ALBUTEROL NEB's [Proventil 0.083% 2.5 mg IH TID PRN #30 neb 11/25/19 Unknown Rx NEBS] Albuterol Sulfate [Proventil Hfa] 2 puff IH Q4HR PRN #1 hfa.aer.ad 11/25/19 Unknown Rx Azithromycin [Zithromax Z-LAUN] 250 mg PO DAILY #6 tab 11/25/19 Unknown Rx Ondansetron (Nf) [Zofran TAB] 8 mg PO Q8HR PRN #14 tablet 11/25/19 Unknown Rx Pantoprazole [Protonix] 40 mg PO QDAY #30 tablet 11/25/19 Unknown Rx guaiFENesin ER [Mucinex ER] 600 mg PO BID #10 tablet 11/25/19 Unknown Rx predniSONE [Deltasone] 40 mg PO QDAY #7 tablet 11/25/19 Unknown Rx Review of Systems Constitutional: no weight loss, no weight gain, no fever, no chills, no w eakness, no malaise Ears, nose, mouth and throat: no ear pain, no ear discharge, no tinnitis, no decreased hearing, no nose pain, no nasal congestion Breasts: no change in shape, no swelling, no mass Cardiovascular: no chest pain, no orthopnea, no palpitations, no syncope, no leg edema Respiratory: cough, cough with sputum, excessive sputum, shortness of breath Gastrointestinal: no nausea, no vomiting, no diarrhea, no constipation Genitourinary Female: no pelvic pain, no flank pain, no menorrhagia, no dysuria, no urinary frequency, no urgency Rectal: no pain, no incontinence, no bleeding Musculoskeletal: no shooting arm pain, no shooting leg pain Integumentary: no rash, no pruritis, no sores, no wounds, no jaundice Neurological: no head injury, no transient paralysis, no paralysis, no weakness, no parathesias, no syncope Psychiatric: no anxiety, no memory loss, no change in sleep habits, no sleep disturbances, no insomnia, no hypersomnia, no change in appetite, no change in libido Endocrine: no cold intolerance, no heat intolerance, no polyphagia, no polydipsia, no polyuria, no nocturia, no excessive sweating Hematologic/Lymphatic: no easy bruising, no easy bleeding, no lymphadenopathy, no lymphedema Allergic/Immunologic: no urticaria, no allergic rhinitis, no persistent infections, no anaphylaxis Exam - Constitutional Vitals: Temp Pulse Resp BP Pulse Ox 99.1 F 106 H 16 134/90 93 12/20/19 10:16 12/20/19 11:40 12/20/19 11:40 12/20/19 10:16 12/20/19 11:16 General appearance: Present: mild distress, obese - EENT Eyes: Present: PERRL ENT: hearing intact, clear oral mucosa - Neck Neck: Present: supple, normal ROM - Respiratory Respiratory effort: normal Respiratory: bilateral: diminished, rhonchi - Cardiovascular Heart Sounds: Present: S1 & S2. Absent: rub, click - Extremities Extremities: pulses symmetrical, No edema Peripheral Pulses: within normal limits - Abdominal General gastrointestinal: Present: soft, non-tender, non-distended, normal bowel sounds Female genitourinary: Present: normal - Integumentary Integumentary: Present: clear, warm, dry - Musculoskeletal Musculoskeletal: gait normal, strength equal bilaterally - Psychiatric Psychiatric: appropriate mood/affect, intact judgment & insight - Neurologic Neurologic: CNII-XII intact, moves all extremities Results - Labs CBC & Chem 7: 12/20/19 12:12 12/20/19 12:12 Labs: Abnormal lab results 12/20/19 12/20/19 12/20/19 Range/Units 12:12 12:12 12:12 WBC 4.4 L (4.5-11.0) K/mm3 MCV 104 H (79-97) fl MCH 35 H (28-32) pg RDW 13.0 L (13.2-15.2) % D-Dimer 864.29 H (0-234) ng/mlDDU Sodium 134 L (137-145) mmol/L Potassium 2.7 L* (3.6-5.0) mmol/L Chloride 91.4 L (98-107) mmol/L Glucose 432 H (65-100) mg/dL Alkaline Phosphatase (35-129) units/L Lactate Dehydrogenase (91-180) units/L 12/20/19 Range/Units 12:12 WBC (4.5-11.0) K/mm3 MCV (79-97) fl MCH (28-32) pg RDW (13.2-15.2) % D-Dimer (0-234) ng/mlDDU Sodium (137-145) mmol/L Potassium (3.6-5.0) mmol/L Chloride (98-107) mmol/L Glucose (65-100) mg/dL Alkaline Phosphatase 151 H (35-129) units/L Lactate Dehydrogenase 268 H (91-180) units/L Assessment and Plan - Patient Problems (1) COPD with exacerbation Current Visit: Yes Status: Acute Plan to address problem: Submental oxygen, nebulizer therapy, chest x-ray, pulse oximetry, IV steroid therapy, pulmonary toilet (2) Obesity hypoventilation syndrome Current Visit: Yes Status: Acute Plan to address problem: Submental oxygen, pulse oximetry, nebulizer therapy, balanced diet, increase physical activity at discharge, outpatient bariatric surgery follow-up. (3) Uncontrolled diabetes mellitus Current Visit: Yes Status: Acute Plan to address problem: Sliding scale insulin therapy, Accu-Chek, consistent carbohydrate diet, hypoglycemia protocol (4) HIV (human immunodeficiency virus infection) Current Visit: No Status: Chronic Qualifiers: HIV symptom status: asymptomatic Qualified Code(s): Z21 - Asymptomatic human immunodeficiency virus [HIV] infection status Plan to address problem: Continue current therapy, outpatient infectious disease service follow-up. (5) HTN (hypertension) Current Visit: No Status: Chronic Qualifiers: Hypertension type: essential hypertension Qualified Code(s): I10 - Essential (primary) hypertension Plan to address problem: Monitor blood pressure every shift, continue medical management, supportive care. (6) Hypokalemia Current Visit: Yes Status: Acute Plan to address problem: Dietary repletion, repeat BMP in a.m. (7) DVT prophylaxis Current Visit: Yes Status: Acute Plan to address problem: SCD to bilateral lower extremities while in bed, patient is ambulatory (8) Advance care planning Current Visit: Yes Status: Acute Plan to address problem: Patient is full code, disease education conducted, patient knowledges understanding and agreement with care plan, +30 minutes.
[2019-12-20] MEDS ORDERED: ONDANSETRON 4 MG ODT TAB PO ONE (13:39)
[2019-12-20] MEDS ORDERED: ONDANSETRON 4 MG ODT TAB ONE (13:42)
[2019-12-20] MEDS ORDERED: HYDROcodone/ACETAMINOPHEN 5-325 MG TAB PO ONE (13:44)
--- NOTE | 2019-12-20 14:43 | Nuclear Medicine Report ---
V/Q Scan HISTORY: CP elevated dimer. TECHNIQUE: Patient was given 15.3 mCi of xenon-133 and 4.6 mCi of technetium MAA. COMPARISON: Chest x-ray from earlier today FINDINGS: No appreciable mismatch between ventilation and perfusion imaging. IMPRESSION: Low probability for PTE. Signer Name: Nirmal Ruiz MD Signed: 12/20/2019 2:39 PM Workstation Name: [id number]
[2019-12-20 15:07] LABS: Basophils % (Manual) 0 % (0.0-1.8); Eosinophils % (Manual) 0 % (0.0-4.3); Platelet Estimate Consistent w Auto; RBC Morphology Normal; Total Cells Counted 100
[2019-12-20] MEDS ORDERED: ALBUTEROL 2.5 MG/3 ML NEBU IH PRN (15:56)
[2019-12-20] MEDS ORDERED: DEXTROSE 50% IN WATER (25GM) 50 ML SYRINGE IV PRN (17:11)
[2019-12-20] MEDS: ACETAMINOPHEN 325 MG TAB PO PRN (21:52)
[2019-12-20] MEDS: ONDANSETRON 4 MG/2 ML INJ IV PRN (21:53)
[2019-12-20] MEDS: INSULIN LISPRO 100 UNIT/ML SUB-Q SCH ×2 (22:06)
[2019-12-21] MEDS: INSULIN LISPRO 100 UNIT/ML SUB-Q SCH ×4 (00:19→18:18)
[2019-12-21 05:08] LABS: Basophils % (Auto) 0.5 % (0.0-1.8); Eosinophils # (Auto) 0.1 K/mm3 (0.0-0.4); Eosinophils % (Auto) 2.5 % (0.0-4.3); Hematocrit 41.1 % (30.3-42.9); Hemoglobin 13.8 gm/dl (10.1-14.3); Lymphocytes # (Auto) 1.8 K/mm3 (1.2-5.4); Lymphocytes % (Auto) 45.6 % (13.4-35.0); Mean Corpuscular HGB Conc 34 % (30-34); Mean Corpuscular Volume 106 fl (79-97); Monocytes # (Auto) 0.5 K/mm3 (0.0-0.8); Monocytes % (Auto) 12.7 % (0.0-7.3); Platelet Count 206 K/mm3 (140-440); Red Blood Count 3.89 M/mm3 (3.65-5.03); Red Cell Distribution Width 13.3 % (13.2-15.2)
[2019-12-21] MEDS: ONDANSETRON 4 MG/2 ML INJ IV PRN (07:00)
[2019-12-21] MEDS: ACETAMINOPHEN 325 MG TAB PO PRN (07:00)
[2019-12-21] MEDS: BUDESONIDE 0.5 MG/2 ML NEBU IH SCH ×2 (07:47→20:08)
[2019-12-21] MEDS: ARFORMOTEROL 15 MCG/2 ML NEBU IH SCH ×2 (07:47→20:08)
[2019-12-21] MEDS ORDERED: POTASSIUM CHLORIDE ER 20 MEQ TAB PO ONE (12:00)
[2019-12-21] MEDS ORDERED: METOCLOPRAMIDE 10 MG TAB PO PRN (12:00)
[2019-12-21] MEDS ORDERED: NON-FORMULARY EACH (Ondansetron (Nf) 8 MG) PO PRN (12:32)
[2019-12-21] MEDS ORDERED: ALBUTEROL 8.5 GM INHALATION IH PRN (12:32)
[2019-12-21] MEDS ORDERED: WITCH HAZEL/ GLYCERIN PAD TP PRN (12:32)
[2019-12-21] MEDS ORDERED: traMADol 50 MG TAB PO PRN (13:00)
--- NOTE | 2019-12-21 13:08 | Discharge Summary ---
Providers - Providers Date of Admission: 12/20/19 15:56 Date of discharge: 12/21/19 Attending physician: CLAUS GILLETTE Primary care physician: TRY OUT PERSON Hospitalization Condition: Stable Hospital course: 64-year-old woman with history of COPD, schizophrenia, HIV, bipolar, diastolic CHF, Well-known to the hospital presents with shortness of breath wheezing and c oughing. She was recently discharged on 11/25/2019 after being treated for the similar complaints. Patient was admitted to medical floor with scheduled nebs, and supplemental O2 to keep O2 sat at 94%. CXR showed no infiltrates and no change comparing to prior one, V/Q Scan showed low probability for PE, abdomen pelvis CT showed no acute findings. Patients symptom improved with medical management. [facility] f/u. Discharge diagnosis and Mx: /Acute on chronic hypoxic respiratory failure due to COPD exacerbation Mx with Supplemental oxygen, nebulizer therapy, pulse oximetry, NIPPV as clinically indicated. / COPD exacerbation Placed on supplemental oxygen, neb therapy, pulse oximetry, NIPPV as clinically indicated. /diastolic CHF with pEF, compensated need further outpt f/u /Hypokalemia, repleted / History of HIV or AIDS Continued antiretroviral therapy, supportive care. / Hypertension Monitored blood pressure every shift, continue medical management. /Diabetes type 2, uncontrolled due to steroid Placed on Sliding scale insulin, consistent carbohydrate diet, Accu-Chek, hypoglycemia protocol. adjusted insulin dose to prevent hypoglycemia /Bipolar 1 disorder supportive care, continued prehospital medication. /Mild hyponatremia, stable /Leukopenia chronic due to underlying HIV, stable / DVT prophylaxis SCD to bilateral lower extremities while in bed, prophylactic heparin. Disposition: home with Physical exam: GENERAL: well-developed and obese AAF lying on bed appeared to be in no discomfort. HEENT: Normocephalic. Atraumatic. No conjunctival congestion or icterus. Patient has moist mucous membranes. NECK: Supple. Trachea midline. CHEST/LUNGS: Diminished breath sounds auscultated bilaterally, breathing nonlabored. HEART/CARDIOVASCULAR: Regular in rate and rhythm. S1 and S2 positive. ABDOMEN: Abdomen is soft, nontender. Patient has normal bowel sounds. SKIN: There is no rash. Warm and dry. NEURO: No focal motor deficit. Follows command. MUSCULOSKELETAL: No joint effusion or tenderness. EXTRIMITY: No edema, no cyanosis or clubbing. PSYCH: Cooperative. Disposition: DC-01 TO HOME OR SELFCARE Time spent for discharge: 34 minutes Core Measure Documentation - Palliative Care Palliative Care/ Comfort Measures: Not Applicable - Core Measures Any of the following diagnoses?: none Exam - Constitutional Vitals: Temp Pulse Resp BP Pulse Ox 98.5 F 70 20 165/60 96 12/21/19 07:57 12/21/19 07:57 12/21/19 08:00 12/21/19 07:57 12/21/19 07:57 Plan Activity: advance as tolerated Weight Bearing Status: Weight Bear as Tolerated Diet: low fat, diabetic Special Instructions: record blood sugar diary Follow up with: SHAYE TEIXE[place] MD DES [Referring] - 3-5 Days Prescriptions: QUEtiapine [SEROquel] 200 mg PO QHS #90 tablet amLODIPine 5 mg PO QDAY #30 tablet predniSONE [Deltasone] 40 mg PO QDAY #7 tablet Elviteg/Cob/Emtri/Tenof Alafen [Genvoya Tablet] 1 each PO DAILY #30 tablet Genvoya Tablet 1 tab PO DAILY #90 tab metFORMIN XR [Glucophage XR] 500 mg PO QDAY #90 tab Potassium Chloride [K-Dur] 10 meq PO QDAY #30 tablet Furosemide [Lasix TAB] 40 mg PO QDAY #30 guaiFENesin ER [Mucinex ER] 600 mg PO BID #10 tablet Insulin NPH/Regular [NovoLIN 70/30] 30 unit SUB-Q BIDDIAB #2 vial Pantoprazole [Protonix TAB] 40 mg PO QDAY #30 tablet ALBUTEROL NEB's [Proventil 0.083% NEBS] 2.5 mg IH TID PRN #30 neb PRN Reason: Wheezing Albuterol Sulfate [Proventil Hfa] 2 puff IH Q4HR PRN #1 hfa.aer.ad PRN Reason: Wheezing Tiotropium [place] [Spiriva Respimat] 2 inhalation IH DAILY #1 mist.inhal Budesonide/Formoterol Fumarate [Symbicort 160-4.5 Mcg Inhaler] 2 inhalation IH BID #1 hfa.aer.ad Glycerin/Witch Lise Pad [Tucks Pad] 1 each TP PRN PRN #1 box PRN Reason: Hemorrhoids traMADoL [Ultram 50 MG tab] 50 mg PO Q6H PRN #14 tablet PRN Reason: Pain, Moderate (4-6) Ondansetron (Nf) [Zofran TAB] 8 mg PO Q8HR PRN #14 tablet PRN Reason: Nausea
[2019-12-21] MEDS ORDERED: ALBUTEROL 2.5 MG/3 ML NEBU IH PRN (14:00)
[2019-12-21] MEDS ORDERED: HYDROcodone/ACETAMINOPHEN 5-325 MG TAB PO PRN (14:00)
[2019-12-21] MEDS ORDERED: IPRATROPIUM 0.02% NEBU 2.5 ML IH SCH (15:00)
[2019-12-21 15:43] LABS: BUN/Creatinine Ratio 15; Blood Urea Nitrogen 16 mg/dL (7-17); Calcium 9.5 mg/dL (8.4-10.2); Hemolysis Index 172
[2019-12-21] MEDS ORDERED: INSULIN REGULAR, HUMAN 100 UNITS/1 ML SUB-Q SCH (16:30)
[2019-12-21] MEDS ORDERED: INSULIN NPH/REGULAR 70/30 INJ SUB-Q SCH (17:00)
[2019-12-21] MEDS: IPRATROPIUM 0.02% NEBU 2.5 ML IH SCH (20:08)
[2019-12-21] MEDS ORDERED: QUEtiapine 200 MG TAB PO SCH (22:00)
[2019-12-21] MEDS ORDERED: BUDESONIDE IH SCH (22:00)
[2019-12-21] MEDS ORDERED: guaiFENesin ER 600 MG TAB PO SCH (22:00)
[2019-12-21] MEDS ORDERED: [UNRECOGNIZED DRUG - OTHER] IH SCH (22:00)
[2019-12-21] MEDS ORDERED: INHAL IH SCH (22:00)
[2019-12-21] MEDS ORDERED: FORMOTEROL FUMARATE IH SCH (22:00)
[2019-12-22] MEDS: INSULIN LISPRO 100 UNIT/ML SUB-Q SCH ×2 (00:57→06:15)
[2019-12-22] MEDS: IPRATROPIUM 0.02% NEBU 2.5 ML IH SCH ×2 (06:21→07:45)
[2019-12-22] MEDS: ARFORMOTEROL 15 MCG/2 ML NEBU IH SCH (07:45)
[2019-12-22] MEDS: BUDESONIDE 0.5 MG/2 ML NEBU IH SCH (07:45)
[2019-12-22] MEDS ORDERED: metFORMIN XR 500MG TAB PO SCH (08:00)
[2019-12-22 08:14] VITALS: BP 114/70
[2019-12-22] MEDS ORDERED: FUROSEMIDE 20 MG TAB PO SCH (10:00)
[2019-12-22] MEDS ORDERED: GENVOYA PO SCH (10:00)
[2019-12-22] MEDS ORDERED: TIOTROPIUM BROMIDE IH SCH (10:00)
[2019-12-22] MEDS ORDERED: PANTOPRAZOLE 40 MG TAB PO SCH (10:00)
[2019-12-22] MEDS ORDERED: [UNRECOGNIZED DRUG - OTHER] PO SCH (10:00)
[2019-12-22] MEDS ORDERED: amLODIPine 5 MG TAB PO SCH (10:00)
[2019-12-22] MEDS ORDERED: predniSONE 20 MG TAB PO SCH (10:00)
--- NOTE | 2019-12-22 10:53 | Event Note ---
Date: 12/22/19 Patient could not be discharged yesterday because transportation could not be arranged She was discharged this morning.
== END 2019-12-22 09:30 | disposition home or self-care (01) ==
LOC: ED 10:02 → 2B-ACE 15:56
PROVIDERS: ADMIT Internal Medicine; ATTEND Internal Medicine
DX: J96.21 Acute and chronic respiratory failure with hypoxia (principal); J44.1 Chronic obstructive pulmonary disease with (acute) exacerbation; I11.0 Hypertensive heart disease with heart failure; I50.30 Unspecified diastolic (congestive) heart failure; E11.65 Type 2 diabetes mellitus with hyperglycemia; E87.6 Hypokalemia; E87.1 Hypo-osmolality and hyponatremia; D72.819 Decreased white blood cell count, unspecified; F31.9 Bipolar disorder, unspecified; F20.9 Schizophrenia, unspecified; R79.1 Abnormal coagulation profile; Z20.828 Contact with and (suspected) exposure to other viral communicable diseases; Z91.19 Patient's noncompliance with other medical treatment and regimen; Z79.84 Long term (current) use of oral hypoglycemic drugs; Z79.899 Other long term (current) drug therapy; Z88.1 Allergy status to other antibiotic agents; Z88.6 Allergy status to analgesic agent; Z91.013 Allergy to seafood
CPT/HCPCS: 36415; 71045; 74176; 78582; 80048; 80076; 80307; 81001; 82140; 82550; 82553; 82962; 83615; 83735; 84466; 84484; 85007; 85025; 85379; 85610; 85730; 93005; 94640; 94644; 96374; 96376; 99285; A9540; A9558; G0378; J2405; U0003; J1815; Q0162

== ENCOUNTER 2020-01-21 11:17 | Inpatient (IN) | payer MEDICARE ==
[2020-01-21] MEDS ORDERED: methylPREDNISolone Sod Succinate 125 MG/2 ML INJ IV ONE (13:08)
[2020-01-21] MEDS ORDERED: ALBUTEROL 2.5 MG/3 ML NEBU IH ONE ×2 (13:09→16:29)
[2020-01-21] MEDS ORDERED: IPRATROPIUM 0.02% NEBU 2.5 ML IH ONE (13:09)
[2020-01-21 13:20] LABS: Bacteria,Urine 1+ /HPF (Negative); Bilirubin,Urine NEG (Negative); Blood,Urine MOD (Negative); Color,Urine Yellow (Yellow); Mucus,Urine 3+ /HPF; Protein,Urine <15 mg/dL mg/dL (Negative); Urobilinogen,Urine < 2.0 mg/dL (<2.0)
[2020-01-21 13:28] LABS: Amphetamine Screen,Urine PRESUMPTIVE NEGATIVE; Benzodiazepines Screen,Urine PRESUMPTIVE NEGATIVE; Cannabinoid Screen,Urine PRESUMPTIVE NEGATIVE; Cocaine Screen,Urine PRESUMPTIVE NEGATIVE; Methadone Screen,Urine PRESUMPTIVE NEGATIVE; Opiate Screen,Urine PRESUMPTIVE NEGATIVE
--- NOTE | 2020-01-21 13:35 | XRay Report ---
CHEST 1 VIEW INDICATION / CLINICAL INFORMATION: Chest Pain. COMPARISON: 12/20/2019 FINDINGS: SUPPORT DEVICES: None. HEART / MEDIASTINUM: No significant abnormality. LUNGS / PLEURA: No significant pulmonary or pleural abnormality. No pneumothorax. ADDITIONAL FINDINGS: No significant additional findings. IMPRESSION: 1. No significant change Signer Name: Edmund Anderson MD Signed: 01/21/2020 1:30 PM Workstation Name: [id number]
--- NOTE | 2020-01-21 13:53 | Emergency Department Report ---
ED General Adult HPI - General Chief complaint: Chest Pain Stated complaint: CARL Time Seen by Provider: 01/21/20 12:35 Source: patient Mode of arrival: Wheelchair Limitations: No Limitations - History of Present Illness Initial comments: The patient presents to the emergency department with a chief complaint of shortness of breath that has been present for the last day. Patient states she has a history asthma and CHF. Patient states she is having some chest tightness due to difficulty with breathing but denies enid chest pain. Patient also denies abdominal pain or headache. -: Gradual Location: chest Severity scale (0 -10): 2 Quality: other (Tightness) Consistency: constant Improves with: none Worsens with: none Associated Symptoms: denies other symptoms Treatments Prior to Arrival: none - Related Data Previous Rx's Medication Instructions Recorded Last Taken Type Insulin Regular, Human [HumuLIN R] 0 unit SQ AC #1 vial 09/30/19 Unknown Rx ALBUTEROL NEB's [Proventil 0.083% 2.5 mg IH TID PRN #30 neb 12/21/19 Unknown Rx NEBS] Albuterol Sulfate [Proventil Hfa] 2 puff IH Q4HR PRN #1 hfa.aer.ad 12/21/19 Unknown Rx Budesonide/Formoterol Fumarate 2 inhalation IH BID #1 hfa.aer.ad 12/21/19 Unknown Rx [Symbicort 160-4.5 Mcg Inhaler] Elviteg/Cob/Emtri/Tenof Alafen 1 each PO DAILY #30 tablet 12/21/19 Unknown Rx [Genvoya Tablet] Furosemide [Lasix TAB] 40 mg PO QDAY #30 12/21/19 Unknown Rx Genvoya Tablet 1 tab PO DAILY #90 tab 12/21/19 Unknown Rx Glycerin/ Witch Lise Pad [Tucks 1 each TP PRN PRN #1 box 12/21/19 Unknown Rx Pad] Insulin NPH/Regular [NovoLIN 70/30] 30 unit SUB-Q BIDDIAB #2 vial 12/21/19 Unknown Rx Ondansetron (Nf) [Zofran TAB] 8 mg PO Q8HR PRN #14 tablet 12/21/19 Unknown Rx Pantoprazole [Protonix TAB] 40 mg PO QDAY #30 tablet 12/21/19 Unknown Rx Potassium Chloride [K-Dur] 10 meq PO QDAY #30 tablet 12/21/19 Unknown Rx QUEtiapine [SEROquel] 200 mg PO QHS #90 tablet 12/21/19 Unknown Rx Tiotropium Milton [Spiriva 2 inhalation IH DAILY #1 mist.inhal 12/21/19 Unknown Rx Respimat] amLODIPine 5 mg PO QDAY #30 tablet 12/21/19 Unknown Rx guaiFENesin ER [Mucinex ER] 600 mg PO BID #10 tablet 12/21/19 Unknown Rx metFORMIN XR [Glucophage XR] 500 mg PO QDAY #90 tab 12/21/19 Unknown Rx predniSONE [Deltasone] 40 mg PO QDAY #7 tablet 12/21/19 Unknown Rx traMADoL [Ultram 50 MG tab] 50 mg PO Q6H PRN #14 tablet 12/21/19 Unknown Rx Albuterol INH(or & Nicu Only) 2 puff IH Q4HR PRN #1 inhalation 01/21/20 Unknown Rx [ProAir HFA Inhaler] Albuterol Sulfate [Albuterol 0.63% 0.63 mg IH Q4HR PRN #30 ml 01/21/20 Unknown Rx NEBS] Azithromycin [Zithromax Z-LUAN] 250 mg PO DAILY #6 tablet 01/21/20 Unknown Rx predniSONE [Deltasone] 20 mg PO DAILY #15 tablet 01/21/20 Unknown Rx Allergies Allergy/AdvReac Type Severity Reaction Status Date / Time shellfish derived Allergy Severe Shortness Verified 11/14/19 15:47 of Breath ibuprofen [From Motrin] Allergy Mild Shortness Verified 11/14/19 15:47 of Breath tetracycline Allergy Shortness Verified 11/14/19 15:47 of Breath ED Review of Systems ROS: Stated complaint: CARL Other details as noted in HPI Comment: All other systems reviewed and negative Constitutional: denies: chills, fever Eyes: denies: eye pain, eye discharge, vision change ENT: denies: ear pain, throat pain Respiratory: shortness of breath. denies: cough, wheezing Cardiovascular: denies: chest pain, palpitations Endocrine: no symptoms reported Gastrointestinal: denies: abdominal pain, nausea, diarrhea Genitourinary: denies: urgency, dysuria, discharge Musculoskeletal: denies: back pain, joint swelling, arthralgia Skin: denies: rash, lesions Neurological: denies: headache, weakness, paresthesias Psychiatric: denies: anxiety, depression Hematological/Lymphatic: denies: easy bleeding, easy bruising ED Past Medical Hx - Past Medical History Previous Medical History?: Yes Hx Hypertension: Yes Hx Congestive Heart Failure: Yes Hx Diabetes: Yes Hx Deep Vein Thrombosis: No Hx Pulmonary Embolism: Yes Hx GERD: No Hx Renal Disease: No Hx Arthritis: No Hx Seizures: Yes Hx Kidney Stones: No Hx Psychiatric Treatment: Yes (bipolar disorder; schziphornia) Hx Asthma: No Hx COPD: No Hx Tuberculosis: No Hx Dementia: No Hx HIV: Yes Additional medical history: CDIFF, spinal stenosis - Surgical History Past Surgical History?: Yes Hx Open Heart Surgery: No Hx Pacemaker: No Hx Internal Defibrillator: No Hx Cholecystectomy: No Hx Appendectomy: No Hx Breast Surgery: No Additional Surgical History: hysterectomy; rt arm skin graph - Social History Smoking Status: Never Smoker Substance Use Type: None - Medications Home Medications: Home Medications Medication Instructions Recorded Confirmed Last Taken Type Insulin Regular, Human [HumuLIN R] 0 unit SQ AC #1 vial 09/30/19 12/21/19 Unknown Rx ALBUTEROL NEB's [Proventil 0.083% 2.5 mg IH TID PRN #30 neb 12/21/19 Unknown Rx NEBS] Albuterol Sulfate [Proventil Hfa] 2 puff IH Q4HR PRN #1 hfa.aer.ad 12/21/19 Unknown Rx Budesonide/Formoterol Fumarate 2 inhalation IH BID #1 hfa.aer.ad 12/21/19 Unknown Rx [Symbicort 160-4.5 Mcg Inhaler] Elviteg/Cob/Emtri/Tenof Alafen 1 each PO DAILY #30 tablet 12/21/19 Unknown Rx [Genvoya Tablet] Furosemide [Lasix TAB] 40 mg PO QDAY #30 12/21/19 Unknown Rx Genvoya Tablet 1 tab PO DAILY #90 tab 12/21/19 Unknown Rx Glycerin/ Witch Lise Pad [Tucks 1 each TP PRN PRN #1 box 12/21/19 Unknown Rx Pad] Insulin NPH/Regular [NovoLIN 70/30] 30 unit SUB-Q BIDDIAB #2 vial 12/21/19 Unknown Rx Ondansetron (Nf) [Zofran TAB] 8 mg PO Q8HR PRN #14 tablet 12/21/19 Unknown Rx Pantoprazole [Protonix TAB] 40 mg PO QDAY #30 tablet 12/21/19 Unknown Rx Potassium Chloride [K-Dur] 10 meq PO QDAY #30 tablet 12/21/19 Unknown Rx QUEtiapine [SEROquel] 200 mg PO QHS #90 tablet 12/21/19 Unknown Rx Tiotropium [place] [Spiriva 2 inhalation IH DAILY #1 mist.inhal 12/21/19 Unknow n Rx Respimat] amLODIPine 5 mg PO QDAY #30 tablet 12/21/19 Unknown Rx guaiFENesin ER [Mucinex ER] 600 mg PO BID #10 tablet 12/21/19 Unknown Rx metFORMIN XR [Glucophage XR] 500 mg PO QDAY #90 tab 12/21/19 Unknown Rx predniSONE [Deltasone] 40 mg PO QDAY #7 tablet 12/21/19 Unknown Rx traMADoL [Ultram 50 MG tab] 50 mg PO Q6H PRN #14 tablet 12/21/19 Unknown Rx Albuterol INH(or & Nicu Only) 2 puff IH Q4HR PRN #1 inhalation 01/21/20 Unknown Rx [ProAir HFA Inhaler] Albuterol Sulfate [Albuterol 0.63% 0.63 mg IH Q4HR PRN #30 ml 01/21/20 Unknown Rx NEBS] Azithromycin [Zithromax Z-LUAN] 250 mg PO DAILY #6 tablet 01/21/20 Unknown Rx predniSONE [Deltasone] 20 mg PO DAILY #15 tablet 01/21/20 Unknown Rx ED Physical Exam - General Limitations: No Limitations General appearance: alert, in no apparent distress - Head Head exam: Present: atraumatic, normocephalic - Eye Eye exam: Present: normal appearance, PERRL, EOMI - ENT ENT exam: Present: mucous membranes moist - Neck Neck exam: Present: normal inspection - Respiratory Respiratory exam: Present: wheezes. Absent: respiratory distress - Cardiovascular Cardiovascular Exam: Present: regular rate, normal rhythm. Absent: systolic murmur, diastolic murmur, rubs, gallop - GI/Abdominal GI/Abdominal exam: Present: soft, normal bowel sounds. Absent: distended, tenderness - Extremities Exam Extremities exam: Present: normal inspection - Back Exam Back exam: Present: normal inspection - Neurological Exam Neurological exam: Present: alert, oriented X3, CN II-XII intact. Absent: motor sensory deficit - Psychiatric Psychiatric exam: Present: normal affect, normal mood - Skin Skin exam: Present: warm, dry, intact, normal color. Absent: rash ED Course Vital Signs 01/21/20 01/21/20 01/21/20 11:26 12:37 12:46 Temperature 98.7 F Pulse Rate 100 H 78 Pulse Rate [ Posterior Throughout] Respiratory 15 16 Rate Respiratory Rate [Posterior Throughout] Blood Pressure 137/100 107/88 O2 Sat by Pulse 98 99 99 Oximetry 01/21/20 01/21/20 01/21/20 13:00 13:16 13:30 Temperature Pulse Rate 112 H 82 81 Pulse Rate [ Posterior Throughout] Respiratory 26 H 15 14 Rate Respiratory Rate [Posterior Throughout] Blood Pressure 107/88 168/97 168/97 O2 Sat by Pulse 98 99 98 Oximetry 01/21/20 01/21/20 01/21/20 13:46 14:00 15:22 Temperature Pulse Rate 74 99 H Pulse Rate [ 99 H Posterior Throughout] Respiratory 16 13 Rate Respiratory 18 Rate [Posterior Throughout] Blood Pressure 168/97 168/97 O2 Sat by Pulse 98 98 Oximetry 01/21/20 16:06 Temperature Pulse Rate Pulse Rate [ Posterior Throughout] Respiratory 16 Rate Respiratory Rate [Posterior Throughout] Blood Pressure O2 Sat by Pulse Oximetry ED Medical Decision Making - Lab Data Result diagrams: 01/21/20 13:07 01/21/20 13:07 Lab Results 01/21/20 01/21/20 01/21/20 Range/Units 13:07 13:07 13:07 WBC 3.8 L (4.5-11.0) K/mm3 RBC 3.90 (3.65-5.03) M/mm3 Hgb 13.8 (10.1-14.3) gm/dl Hct 41.8 (30.3-42.9) % MCV 107 H (79-97) fl MCH 36 H (28-32) pg MCHC 33 (30-34) % RDW 14.0 (13.2-15.2) % Plt Count 180 (140-440) K/mm3 Add Manual Diff Complete Total Counted 100 Seg Neutrophils % Application Development Project Manager Seg Neuts % (Manual) 47.0 (40.0-70.0) % Band Neutrophils % 0 % Lymphocytes % (Manual) 44.0 H (13.4-35.0) % Reactive Lymphs % (Man) 0 % Monocytes % (Manual) 5.0 (0.0-7.3) % Eosinophils % (Manual) 4.0 (0.0-4.3) % Basophils % (Manual) 0 (0.0-1.8) % Metamyelocytes % 0 % Myelocytes % 0 % Promyelocytes % 0 % Blast Cells % 0 % Nucleated RBC % Not Reportable Seg Neutrophils # Man 1.8 (1.8-7.7) K/mm3 Band Neutrophils # 0.0 K/mm3 Lymphocytes # (Manual) 1.7 (1.2-5.4) K/mm3 Abs React Lymphs (Man) 0.0 K/mm3 Monocytes # (Manual) 0.2 (0.0-0.8) K/mm3 Eosinophils # (Manual) 0.2 (0.0-0.4) K/mm3 Basophils # (Manual) 0.0 (0.0-0.1) K/mm3 Metamyelocytes # 0.0 K/mm3 Myelocytes # 0.0 K/mm3 Promyelocytes # 0.0 K/mm3 Blast Cells # 0.0 K/mm3 WBC Morphology Not Reportable Hypersegmented Neuts Not Reportable Hyposegmented Neuts Not Reportable Hypogranular Neuts Not Reportable Smudge Cells Not Reportable Toxic Granulation Not Reportable Toxic Vacuolation Not Reportable Dohle Bodies Not Reportable Pelger-Huet Anomaly Not Reportable Susan Rods Not Reportable Platelet Estimate Not Reportable Clumped Platelets Not Reportable Plt Clumps, EDTA Not Reportable Large Platelets Not Reportable Giant Platelets Not Reportable Platelet Satelliting Not Reportable Plt Morphology Comment Not Reportable RBC Morphology Normal Dimorphic RBCs Not Reportable Polychromasia Not Reportable Hypochromasia Not Reportable Poikilocytosis Not Reportable Anisocytosis Not Reportable Microcytosis Not Reportable Macrocytosis Not Reportable Spherocytes Not Reportable Pappenheimer Bodies Not Reportable Sickle Cells Not Reportable Target Cells Not Reportable Tear Drop Cells Not Reportable Ovalocytes Not Reportable Helmet Cells Not Reportable [place] Bodies Not Reportable Rolla Rings Not Reportable [place] Cells Not Reportable Bite Cells Not Reportable Crenated Cell Not Reportable Elliptocytes Not Reportable Acanthocytes (Spur) Not Reportable Rouleaux Not Reportable Hemoglobin C Crystals Not Reportable Schistocytes Not Reportable Malaria parasites Not Reportable Barry Bodies Not Reportable Hem Pathologist Commnt No PT 14.5 (12.2-14.9) Sec. INR 1.12 (0.87-1.13) APTT 33.2 (24.2-36.6) Sec. Sodium 138 (137-145) mmol/L Potassium 3.8 (3.6-5.0) mmol/L Chloride 102.1 (98-107) mmol/L Carbon Dioxide 21 L (22-30) mmol/L Anion Gap 19 mmol/L BUN 15 (7-17) mg/dL Creatinine 0.6 L (0.7-1.2) mg/dL Estimated GFR > 60 ml/min BUN/Creatinine Ratio 25 % Glucose 276 H (65-100) mg/dL Calcium 9.4 (8.4-10.2) mg/dL Total Bilirubin 0.40 (0.1-1.2) mg/dL AST 12 (5-40) units/L ALT 7 (7-56) units/L Alkaline Phosphatase 132 H (35-129) units/L Troponin T < 0.010 (0.00-0.029) ng/mL Total Protein 7.6 (6.3-8.2) g/dL Albumin 3.8 L (3.9-5) g/dL Albumin/Globulin Ratio 1.0 % Lipase 21 (13-60) units/L Urine Color (Yellow) Urine Turbidity (Clear) Urine pH (5.0-7.0) Ur Specific Marshall (1.003-1.030) Urine Protein (Negative) mg/dL Urine Glucose (UA) (Negative) mg/dL Urine Ketones (Negative) mg/dL Urine Blood (Negative) Urine Nitrite (Negative) Urine Bilirubin (Negative) Urine Urobilinogen (<2.0) mg/dL Ur Leukocyte Esterase (Negative) Urine WBC (Auto) (0.0-6.0) /HPF Urine RBC (Auto) (0.0-6.0) /HPF U Epithel Cells (Auto) (0-13.0) /HPF Urine Bacteria (Auto) (Negative) /HPF Urine Mucus /HPF Urine Opiates Screen Urine Methadone Screen Ur Barbiturates Screen Ur Phencyclidine Scrn Ur Amphetamines Screen U Benzodiazepines Scrn Urine Cocaine Screen U Marijuana (THC) Screen Drugs of Abuse Note 01/21/20 01/21/20 01/21/20 Range/Units 13:08 13:08 15:33 WBC (4.5-11.0) K/mm3 RBC (3.65-5.03) M/mm3 Hgb (10.1-14.3) gm/dl Hct (30.3-42.9) % MCV (79-97) fl MCH (28-32) pg MCHC (30-34) % RDW (13.2-15.2) % Plt Count (140-440) K/mm3 Add Manual Diff Total Counted Seg Neutrophils % Seg Neuts % (Manual) (40.0-70.0) % Band Neutrophils % % Lymphocytes % (Manual) (13.4-35.0) % Reactive Lymphs % (Man) % Monocytes % (Manual) (0.0-7.3) % Eosinophils % (Manual) (0.0-4.3) % Basophils % (Manual) (0.0-1.8) % Metamyelocytes % % Myelocytes % % Promyelocytes % % Blast Cells % % Nucleated RBC % Seg Neutrophils # Man (1.8-7.7) K/mm3 Band Neutrophils # K/mm3 Lymphocytes # (Manual) (1.2-5.4) K/mm3 Abs React Lymphs (Man) K/mm3 Monocytes # (Manual) (0.0-0.8) K/mm3 Eosinophils # (Manual) (0.0-0.4) K/mm3 Basophils # (Manual) (0.0-0.1) K/mm3 Metamyelocytes # K/mm3 Myelocytes # K/mm3 Promyelocytes # K/mm3 Blast Cells # K/mm3 WBC Morphology Hypersegmented Neuts Hyposegmented Neuts Hypogranular Neuts Smudge Cells Toxic Granulation Toxic Vacuolation Dohle Bodies Pelger-Huet Anomaly Susan Rods Platelet Estimate Clumped Platelets Plt Clumps, EDTA Large Platelets Giant Platelets Platelet Satelliting Plt Morphology Comment RBC Morphology Dimorphic RBCs Polychromasia Hypochromasia Poikilocytosis Anisocytosis Microcytosis Macrocytosis Spherocytes Pappenheimer Bodies Sickle Cells Target Cells Tear Drop Cells Ovalocytes Helmet Cells [place] Bodies Rolla Rings [place] Cells Bite Cells Crenated Cell Elliptocytes Acanthocytes (Spur) Rouleaux Hemoglobin C Crystals Schistocytes Malaria parasites Barry Bodies Hem Pathologist Commnt PT (12.2-14.9) Sec. INR (0.87-1.13) APTT (24.2-36.6) Sec. Sodium (137-145) mmol/L Potassium (3.6-5.0) mmol/L Chloride (98-107) mmol/L Carbon Dioxide (22-30) mmol/L Anion Gap mmol/L BUN (7-17) mg/dL Creatinine (0.7-1.2) mg/dL Estimated GFR ml/min BUN/Creatinine Ratio % Glucose (65-100) mg/dL Calcium (8.4-10.2) mg/dL Total Bilirubin (0.1-1.2) mg/dL AST (5-40) units/L ALT (7-56) units/L Alkaline Phosphatase (35-129) units/L Troponin T < 0.010 (0.00-0.029) ng/mL Total Protein (6.3-8.2) g/dL Albumin (3.9-5) g/dL Albumin/Globulin Ratio % Lipase (13-60) units/L Urine Color Yellow (Yellow) Urine Turbidity Slightly-cloudy (Clear) Urine pH 5.0 (5.0-7.0) Ur Specific Marshall 1.028 (1.003-1.030) Urine Protein <15 mg/dl (Negative) mg/dL Urine Glucose (UA) >=500 (Negative) mg/dL Urine Ketones Neg (Negative) mg/dL Urine Blood Mod (Negative) Urine Nitrite Neg (Negative) Urine Bilirubin Neg (Negative) Urine Urobilinogen < 2.0 (<2.0) mg/dL Ur Leukocyte Esterase Sm (Negative) Urine WBC (Auto) 14.0 H (0.0-6.0) /HPF Urine RBC (Auto) 5.0 (0.0-6.0) /HPF U Epithel Cells (Auto) 7.0 (0-13.0) /HPF Urine Bacteria (Auto) 1+ (Negative) /HPF Urine Mucus 3+ /HPF Urine Opiates Screen Presumptive negative Urine Methadone Screen Presumptive negative Ur Barbiturates Screen Presumptive negative Ur Phencyclidine Scrn Presumptive negative Ur Amphetamines Screen Presumptive negative U Benzodiazepines Scrn Presumptive negative Urine Cocaine Screen Presumptive negative U Marijuana (THC) Screen Presumptive negative Drugs of Abuse Note Disclamer - EKG Data -: EKG Interpreted by Me EKG shows normal: sinus rhythm Rate: normal - Radiology Data Radiology results: report reviewed - Medical Decision Making On repeat examination of the patient at 4:20 PM her lung sounds are still tight with expiratory wheezing Critical care attestation.: If time is entered above; I have spent that time in minutes in the direct care of this critically ill patient, excluding procedure time. ED Disposition Clinical Impression: Asthma attack Disposition: DC- TO HOME OR SELFCARE Is pt being admited?: No Does the pt Need Aspirin: No Condition: Stable Instructions: Asthma (ED) Additional Instructions: return if worse Prescriptions: Albuterol Sulfate [Albuterol 0.63% NEBS] 0.63 mg IH Q4HR PRN #30 ml PRN Reason: Wheezing predniSONE [Deltasone] 20 mg PO DAILY #15 tablet Albuterol INH(or & Nicu Only) [ProAir HFA Inhaler] 2 puff IH Q4HR PRN #1 in halation PRN Reason: Shortness Of Breath Azithromycin [Zithromax Z-LUAN] 250 mg PO DAILY #6 tablet Referrals: SANTOSH AHMADI MD [Primary Care Provider] - 3-5 Days [facility] [Provider Group] - 3-5 Days [facility] [Provider Group] - 3-5 Days Time of Disposition: 16:33
[2020-01-21 13:58] LABS: Hematocrit 41.8 % (30.3-42.9); Hemoglobin 13.8 gm/dl (10.1-14.3); Mean Corpuscular HGB Conc 33 % (30-34); Mean Corpuscular Volume 107 fl (79-97); Platelet Count 180 K/mm3 (140-440)
[2020-01-21 14:09] LABS: INR 1.12 (0.87-1.13); Partial Thromboplastin Time 33.2 Sec. (24.2-36.6)
[2020-01-21 14:25] LABS: Alanine Aminotransferase 7 units/L (7-56); Albumin 3.8 g/dL (3.9-5); BUN/Creatinine Ratio 25; Blood Urea Nitrogen 15 mg/dL (7-17); Calcium 9.4 mg/dL (8.4-10.2); Hemolysis Index 32
[2020-01-21] MEDS ORDERED: ONDANSETRON 4 MG/2 ML INJ IV ONE (15:54)
[2020-01-21] MEDS ORDERED: MORPHINE 4 MG/1 ML INJ IV ONE (15:54)
[2020-01-21 15:56] LABS: Basophils % (Manual) 0 % (0.0-1.8); RBC Morphology Normal; Total Cells Counted 100
[2020-01-21] MEDS ORDERED: methylPREDNISolone Sod Succinate 125 MG/2 ML INJ ONE (15:59)
[2020-01-21] MEDS ORDERED: MAGNESIUM SULFATE 2 GM/50 ML BAG IV ONE (16:26)
--- NOTE | 2020-01-21 20:07 | History and Physical Report ---
History of Present Illness Chief complaint: I cant breathe, and my foot hurts History of present illness: 64 YO Female with COPD, DM, Seizure Disorder, HTN, Bipolar, Diastolic CHF, Schizophrenia, Obesity Hypoventilation Syndrome, Seizure Disorder, HIV presents to ED for evaluation. Pt states that she has experienced shortness of breath and chest discomfort with increased productive cough with increased production o f clear-yellow sputum over the past 1 day with worsening symptoms over the same time frame. The patient acknowledges increased use of her inhaler and nebulizer therapy without significant relief. Patient acknowledges decreased exercise tolerance. EMS notified and upon arrival the patient was found to be in distress and transported to [facility] for further evaluation and care. Pt seen and evaluated in ED. lab and imaging studies reviewed. Patient found to have clinical symptoms consistent with COPD Exacerbation as well as Acute Hypoxemic respiratory failure. Patient is using accessory muscles to breathe, and is unable to speak in complete and full sentences due to dypsnea. Patient admitted to medical floor for medical stabilization due to increased likelihood of respiratory decompensation. Pt denies fever, chills, chest pain, palpitations, NVD, Syncope, Trauma, recent ill contacts, unilateral leg swelling, calf pain, prolonged travel/immobility, trauma, individual/family history of DVT/PE, hemoptysis, known ill contacts, or medication noncompliance, or known exposure to COVID-19. Prior admission on 12/20/2019 reviewed. All listed medication reconciled at time of admission. Advanced care planning conducted in ED. Past History Past Medical History: COPD, diabetes, heart failure, HIV/AIDS, hypertension, other (See HPI) Past Surgical History: hysterectomy Social history: single Family history: hypertension Medications and Allergies Allergies Allergy/AdvReac Type Severity Reaction Status Date / Time shellfish derived Allergy Severe Shortness Verified 11/14/19 15:47 of Breath ibuprofen [From Motrin] Allergy Mild Shortness Verified 11/14/19 15:47 of Breath tetracycline Allergy Shortness Verified 11/14/19 15:47 of Breath Home Medications Medication Instructions Recorded Confirmed Last Taken Type Insulin Regular, Human [HumuLIN R] 0 unit SQ AC #1 vial 09/30/19 12/21/19 Unknown Rx ALBUTEROL NEB's [Proventil 0.083% 2.5 mg IH TID PRN #30 neb 12/21/19 Unknown Rx NEBS] Albuterol Sulfate [Proventil Hfa] 2 puff IH Q4HR PRN #1 hfa.aer.ad 12/21/19 Unknown Rx Budesonide/Formoterol Fumarate 2 inhalation IH BID #1 hfa.aer.ad 12/21/19 Unknown Rx [Symbicort 160-4.5 Mcg Inhaler] Elviteg/Cob/Emtri/Tenof Alafen 1 each PO DAILY #30 tablet 12/21/19 Unknown Rx [Genvoya Tablet] Furosemide [Lasix TAB] 40 mg PO QDAY #30 12/21/19 Unknown Rx Genvoya Tablet 1 tab PO DAILY #90 tab 12/21/19 Unknown Rx Glycerin/ Witch Lise Pad [Tucks 1 each TP PRN PRN #1 box 12/21/19 Unknown Rx Pad] Insulin NPH/Regular [NovoLIN 70/30] 30 unit SUB-Q BIDDIAB #2 vial 12/21/19 Unknown Rx Ondansetron (Nf) [Zofran TAB] 8 mg PO Q8HR PRN #14 tablet 12/21/19 Unknown Rx Pantoprazole [Protonix TAB] 40 mg PO QDAY #30 tablet 12/21/19 Unknown Rx Potassium Chloride [K-Dur] 10 meq PO QDAY #30 tablet 12/21/19 Unknown Rx QUEtiapine [SEROquel] 200 mg PO QHS #90 tablet 12/21/19 Unknown Rx Tiotropium Paicines [Spiriva 2 inhalation IH DAILY #1 mist.inhal 12/21/19 Unknown Rx Respimat] amLODIPine 5 mg PO QDAY #30 tablet 12/21/19 Unknown Rx guaiFENesin ER [Mucinex ER] 600 mg PO BID #10 tablet 12/21/19 Unknown Rx metFORMIN XR [Glucophage XR] 500 mg PO QDAY #90 tab 12/21/19 Unknown Rx predniSONE [Deltasone] 40 mg PO QDAY #7 tablet 12/21/19 Unknown Rx traMADoL [Ultram 50 MG tab] 50 mg PO Q6H PRN #14 tablet 12/21/19 Unknown Rx Albuterol INH(or & Nicu Only) 2 puff IH Q4HR PRN #1 inhalation 01/21/20 Unknown Rx [ProAir HFA Inhaler] Albuterol Sulfate [Albuterol 0.63% 0.63 mg IH Q4HR PRN #30 ml 01/21/20 Unknown Rx NEBS] Azithromycin [Zithromax Z-LUAN] 250 mg PO DAILY #6 tablet 01/21/20 Unknown Rx predniSONE [Deltasone] 20 mg PO DAILY #15 tablet 01/21/20 Unknown Rx Review of Systems Constitutional: no weight loss, no weight gain, no fever, no chills Ears, nose, mouth and throat: no ear pain, no ear discharge, no tinnitis, no decreased hearing, no nose pain Breasts: no change in shape, no swelling, no mass Cardiovascular: no chest pain, no orthopnea, no palpitations, no rapid/irregular heart beat Respiratory: cough, cough with sputum, shortness of breath, congestion, wheezing, no excessive sputum, no hemoptysis Gastrointestinal: no abdominal pain, no nausea, no vomiting, no diarrhea, no change in bowel habits Genitourinary Female: no pelvic pain, no flank pain, no menorrhagia, no dysuria, no urinary frequency, no urgency Rectal: no pain, no incontinence, no bleeding Musculoskeletal: no neck stiffness, no neck pain, no arm numbness/tingling, no low back pain, no shooting leg pain Integumentary: no pruritis, no redness, no darkening of skin, no depigmentation, no dryness Neurological: no paralysis, no weakness, no numbness, no seizures, no syncope, no migraines, no aphasia, no change in mentation, no memory loss Psychiatric: no memory loss, no change in sleep habits, no insomnia, no hypersomnia, no change in appetite, no suicidal ideation, no disorientation Endocrine: no heat intolerance, no excessive sweating Hematologic/Lymphatic: no easy bruising, no easy bleeding, no lymphedema Allergic/Immunologic: no urticaria, no allergic rhinitis, no wheezing, no anaphylaxis Exam - Constitutional Vitals: Temp Pulse Resp BP Pulse Ox 98.7 F 109 H 16 149/84 94 01/21/20 11:26 01/21/20 19:45 01/21/20 19:45 01/21/20 19:45 01/21/20 19:45 General appearance: Present: mild distress - EENT Eyes: Present: PERRL ENT: hearing intact, clear oral mucosa - Neck Neck: Present: supple, normal ROM - Respiratory Respiratory effort: normal Respiratory: bilateral: diminished, rhonchi - Cardiovascular Heart Sounds: Present: S1 & S2. Absent: rub, click - Extremities Extremities: pulses symmetrical, No edema Peripheral Pulses: within normal limits - Abdominal General gastrointestinal: Present: soft, non-tender, non-distended, normal bowel sounds Female genitourinary: Present: normal - Integumentary Integumentary: Present: clear, warm, dry - Musculoskeletal Musculoskeletal: gait normal, strength equal bilaterally - Psychiatric Psychiatric: appropriate mood/affect, intact judgment & insight - Neurologic Neurologic: CNII-XII intact, moves all extremities HEART Score - HEART Score Troponin: Troponin T < 0.010 ng/mL (0.00-0.029) 01/21/20 15:33 Results - Labs CBC & Chem 7: 01/21/20 13:07 01/21/20 13:07 Labs: Abnormal lab results 01/21/20 01/21/20 01/21/20 Range/Units 13:07 13:07 13:08 WBC 3.8 L (4.5-11.0) K/mm3 MCV 107 H (79-97) fl MCH 36 H (28-32) pg Lymphocytes % (Manual) 44.0 H (13.4-35.0) % Carbon Dioxide 21 L (22-30) mmol/L Creatinine 0.6 L (0.7-1.2) mg/dL Glucose 276 H (65-100) mg/dL Alkaline Phosphatase 132 H (35-129) units/L Albumin 3.8 L (3.9-5) g/dL Urine WBC (Auto) 14.0 H (0.0-6.0) /HPF Assessment and Plan - Patient Problems (1) Respiratory failure Current Visit: Yes Status: Acute Qualifiers: Chronicity: acute Respiratory failure complication: hypoxia Qualified Code(s): J96.01 - Acute respiratory failure with hypoxia Plan to address problem: Supplemental oxygen, ABG, nebulizer therapy, pulse oximetry, noninvasive positive pressure ventilation as clinically indicated, IV antibiotic therapy, IV steroid thyroid therapy, chest x-ray, supportive care. (2) UTI (urinary tract infection) Current Visit: Yes Status: Acute Qualifiers: Encounter type: initial encounter Plan to address problem: CBC, urinalysis, IV antibiotic therapy. (3) HIV (human immunodeficiency virus infection) Current Visit: Yes Status: Acute Qualifiers: HIV symptom status: asymptomatic Qualified Code(s): Z21 - Asymptomatic human immunodeficiency virus [HIV] infection status Plan to address problem: Outpatient infectious disease follow-up, supportive care. (4) CHF (congestive heart failure) Current Visit: Yes Status: Acute Qualifiers: Heart failure chronicity: chronic Plan to address problem: Strict I's/O, monitor urine output every shift, daily weight, diuresis with Lasix, supportive care, submental oxygen, afterload reduction. (5) Hypertension Current Visit: Yes Status: Acute Qualifiers: Hypertension type: essential hypertension Qualified Code(s): I10 - E ssential (primary) hypertension Plan to address problem: Monitor blood pressure every shift, continue medical management, supportive care. (6) Diabetes Current Visit: Yes Status: Acute Plan to address problem: Sliding scale insulin diet, consistent carbohydrate diet, Accu-Chek, hypoglycemia protocol. (7) Obesity hypoventilation syndrome Current Visit: No Status: Acute Plan to address problem: Submental oxygen, nebulized therapy, noninvasive positive pressure ventilation as clinically indicated, balanced diet, increase physical activity at discharge. (8) Seizure disorder Current Visit: No Status: Chronic Plan to address problem: Supportive care, no seizure activity at this time. (9) DVT prophylaxis Current Visit: Yes Status: Acute Plan to address problem: SCD to bilateral lower extremities while in bed, patient is ambulatory. (10) Advance care planning Current Visit: Yes Status: Acute Plan to address problem: Disease education conducted, patient is full code, patient knowledges understanding and agreement with care plan, +30 minutes.
[2020-01-21] MEDS ORDERED: NON-FORMULARY EACH (Ondansetron (Nf) 8 MG) PO PRN (20:14)
[2020-01-21] MEDS ORDERED: WITCH HAZEL/ GLYCERIN PAD TP PRN (20:14)
[2020-01-21] MEDS ORDERED: ONDANSETRON 4 MG ODT TAB PO PRN (20:53)
[2020-01-21] MEDS ORDERED: ALBUTEROL 2.5 MG/3 ML NEBU IH PRN (20:56)
--- NOTE | 2020-01-21 21:40 | XRay Report ---
Right foot, 2 views INDICATION: Right foot pain FINDINGS: There are hammertoe deformities especially of the great toe with moderate osteoporosis. The re is no fracture or dislocation. No significant spurring or arthritic change. No acute abnormality. Signer Name: Edmund Anderson MD Signed: 01/21/2020 9:35 PM Workstation Name: [id number]
[2020-01-21] MEDS ORDERED: INHAL IH SCH (22:00)
[2020-01-21] MEDS: methylPREDNISolone Sod Succinate 40 MG/1 ML INJ IV SCH (22:00)
[2020-01-21] MEDS: guaiFENesin ER 600 MG TAB PO SCH (22:00)
[2020-01-21] MEDS ORDERED: FORMOTEROL FUMARATE IH SCH (22:00)
[2020-01-21] MEDS ORDERED: BUDESONIDE IH SCH (22:00)
[2020-01-21] MEDS ORDERED: [UNRECOGNIZED DRUG - OTHER] IH SCH (22:00)
[2020-01-21] MEDS: QUEtiapine 200 MG TAB PO SCH (22:00)
[2020-01-22 00:16] LABS: ABG Base Excess -3.6 mmol/L (-2.0-3.0); ABG HCO3 20.8 mmol/L (20.0-26.0); ABG Methemoglobin 0.6 % (0.0-1.5); ABG PCO2 35.5 mm Hg; ABG PH 7.385 pH Units (7.350-7.450); ABG PO2 86.4 mm Hg (80.0-90.0)
[2020-01-22] MEDS: traMADol 50 MG TAB PO PRN ×3 (01:02→23:01)
[2020-01-22] MEDS: ONDANSETRON 8 MG ODT TAB PO PRN ×3 (02:04→19:59)
[2020-01-22 06:21] LABS: Basophils % (Auto) 0.4 % (0.0-1.8); Hematocrit 36.4 % (30.3-42.9); Hemoglobin 12.1 gm/dl (10.1-14.3); Lymphocytes % (Auto) 42.4 % (13.4-35.0); Mean Corpuscular HGB Conc 33 % (30-34); Mean Corpuscular Volume 107 fl (79-97); Monocytes # (Auto) 0.5 K/mm3 (0.0-0.8); Monocytes % (Auto) 10.1 % (0.0-7.3); Platelet Count 177 K/mm3 (140-440); Red Cell Distribution Width 14.3 % (13.2-15.2)
[2020-01-22 06:50] LABS: Alanine Aminotransferase 6 units/L (7-56); Albumin 3.8 g/dL (3.9-5); BUN/Creatinine Ratio 27; Blood Urea Nitrogen 16 mg/dL (7-17); Calcium 9.1 mg/dL (8.4-10.2)
[2020-01-22] MEDS ORDERED: BUDESONIDE 0.5 MG/2 ML NEBU IH SCH (08:00)
[2020-01-22] MEDS: BUDESONIDE 0.5 MG/2 ML NEBU IH SCH ×2 (08:08→21:39)
[2020-01-22] MEDS: guaiFENesin ER 600 MG TAB PO SCH ×2 (09:20→23:00)
[2020-01-22] MEDS: INSULIN NPH/REGULAR 70/30 INJ SUB-Q SCH ×2 (09:20→17:37)
[2020-01-22] MEDS: PANTOPRAZOLE 40 MG TAB PO SCH (09:21)
[2020-01-22] MEDS: amLODIPine 5 MG TAB PO SCH (09:21)
[2020-01-22] MEDS: FUROSEMIDE 40 MG TAB PO SCH (09:21)
[2020-01-22] MEDS: methylPREDNISolone Sod Succinate 40 MG/1 ML INJ IV SCH ×2 (09:21→22:59)
[2020-01-22] MEDS: POTASSIUM CHLORIDE ER 10 MEQ TAB PO SCH (09:22)
[2020-01-22] MEDS ORDERED: [UNRECOGNIZED DRUG - OTHER] PO SCH (10:00)
[2020-01-22] MEDS ORDERED: GENVOYA PO SCH (10:00)
[2020-01-22] MEDS ORDERED: TIOTROPIUM BROMIDE IH SCH (10:00)
[2020-01-22] MEDS: TIOTROPIUM 18 MCG CAP INHALATION IH SCH (11:05)
--- NOTE | 2020-01-22 13:00 | Progress Note ---
Assessment and Plan /Acute on chronic hypoxic respiratory failure due to COPD exacerbation cont Mx with Supplemental oxygen, nebulizer therapy, pulse oximetry, NIPPV as clinically indicated. / COPD exacerbation cont on supplemental oxygen, neb therapy, pulse oximetry, NIPPV as clinically indicated. /diastolic CHF with pEF, compensated need further outpt f/u / History of HIV or AIDS Continue antiretroviral therapy, supportive care. / Hypertension Monitore blood pressure every shift, continue medical management. /Diabetes type 2, uncontrolled due to steroid Place on Sliding scale insulin, consistent carbohydrate diet, Accu-Chek, hypoglycemia protocol. adjust insulin dose to prevent hypoglycemia /Bipolar 1 disorder supportive care, continue prehospital medication. / DVT prophylaxis SCD to bilateral lower extremities while in bed, prophylactic heparin. Disposition: home, if clinically stable tomorrow Subjective Date of service: 01/22/20 Interval history: patient seen and examined c/o SOB with minimal exertion, but feels better then yesterday tolerating diet, denies chest pain Objective - Exam Narrative Exam: General appearance: Present: mild distress - EENT Eyes: Present: PERRL ENT: hearing intact, clear oral mucosa - Neck Neck: Present: supple, normal ROM - Respiratory Respiratory effort: normal Respiratory: bilateral: diminished, rhonchi - Cardiovascular Heart Sounds: Present: S1 & S2. Absent: rub, click - Extremities Extremities: pulses symmetrical, No edema Peripheral Pulses: within normal limits - Abdominal General gastrointestinal: Present: soft, non-tender, non-distended, normal bowel sounds Female genitourinary: Present: normal - Integumentary Integumentary: Present: clear, warm, dry - Musculoskeletal Musculoskeletal: gait normal, strength equal bilaterally - Psychiatric Psychiatric: appropriate mood/affect, intact judgment & insight - Neurologic Neurologic: CNII-XII intact, moves all extremities - Constitutional Vitals: Vital Signs - 12hr 01/22/20 01/22/20 01/22/20 01:11 01:21 01:30 Temperature Pulse Rate Pulse Rate [ From Monitor] Pulse Rate [ Posterior Throughout] Respiratory Rate Respiratory Rate [Posterior Throughout] Blood Pressure 125/80 125/80 127/86 O2 Sat by Pulse 97 96 97 Oximetry 01/22/20 01/22/20 01/22/20 01:41 01:51 02:01 Temperature Pulse Rate Pulse Rate [ From Monitor] Pulse Rate [ Posterior Throughout] Respiratory Rate Respiratory Rate [Posterior Throughout] Blood Pressure 127/86 127/86 127/86 O2 Sat by Pulse 97 98 98 Oximetry 01/22/20 01/22/20 01/22/20 02:11 02:21 02:31 Temperature Pulse Rate 97 H 104 H 94 H Pulse Rate [ From Monitor] Pulse Rate [ Posterior Throughout] Respiratory 21 16 10 L Rate Respiratory Rate [Posterior Throughout] Blood Pressure 145/81 145/81 145/81 O2 Sat by Pulse 98 95 97 Oximetry 01/22/20 01/22/20 01/22/20 02:41 02:51 03:01 Temperature Pulse Rate 93 H 90 92 H Pulse Rate [ From Monitor] Pulse Rate [ Posterior Throughout] Respiratory 14 14 14 Rate Respiratory Rate [Posterior Throughout] Blood Pressure 145/81 145/81 145/81 O2 Sat by Pulse 96 96 95 Oximetry 01/22/20 01/22/20 01/22/20 03:11 03:21 03:31 Temperature Pulse Rate 104 H 100 H 103 H Pulse Rate [ From Monitor] Pulse Rate [ Posterior Throughout] Respiratory 11 L 24 15 Rate Respiratory Rate [Posterior Throughout] Blood Pressure 145/81 145/81 145/81 O2 Sat by Pulse 95 97 96 Oximetry 01/22/20 01/22/20 01/22/20 03:41 03:45 03:51 Temperature Pulse Rate 89 98 H 90 Pulse Rate [ 88 From Monitor] Pulse Rate [ Posterior Throughout] Respiratory 16 14 13 Rate Respiratory Rate [Posterior Throughout] Blood Pressure 145/81 145/81 O2 Sat by Pulse 95 95 95 Oximetry 01/22/20 01/22/20 01/22/20 04:00 04:11 04:21 Temperature 98.8 F Pulse Rate 85 92 H 85 Pulse Rate [ From Monitor] Pulse Rate [ Posterior Throughout] Respiratory 13 14 13 Rate Respiratory Rate [Posterior Throughout] Blood Pressure 133/74 133/74 133/74 O2 Sat by Pulse 96 95 95 Oximetry 01/22/20 01/22/20 01/22/20 04:31 04:41 05:01 Temperature Pulse Rate 96 H 87 95 H Pulse Rate [ From Monitor] Pulse Rate [ Posterior Throughout] Respiratory 13 13 11 L Rate Respiratory Rate [Posterior Throughout] Blood Pressure 133/74 133/74 133/74 O2 Sat by Pulse 94 95 96 Oximetry 01/22/20 01/22/20 01/22/20 06:01 07:00 07:01 Temperature Pulse Rate 81 98 H 90 Pulse Rate [ From Monitor] Pulse Rate [ Posterior Throughout] Respiratory 13 13 Rate Respiratory Rate [Posterior Throughout] Blood Pressure 133/74 133/74 O2 Sat by Pulse 96 96 Oximetry 01/22/20 01/22/20 01/22/20 08:00 08:11 09:01 Temperature 98.4 F Pulse Rate 82 93 H Pulse Rate [ From Monitor] Pulse Rate [ 85 Posterior Throughout] Respiratory 12 12 Rate Respiratory 18 Rate [Posterior Throughout] Blood Pressure 118/75 118/75 O2 Sat by Pulse 95 97 Oximetry 01/22/20 01/22/20 01/22/20 09:20 09:21 10:01 Temperature Pulse Rate 80 Pulse Rate [ 98 H From Monitor] Pulse Rate [ Posterior Throughout] Respiratory 12 15 Rate Respiratory Rate [Posterior Throughout] Blood Pressure 118/75 118/75 O2 Sat by Pulse 95 96 Oximetry 01/22/20 01/22/20 01/22/20 11:00 11:01 12:40 Temperature Pulse Rate 95 H 80 Pulse Rate [ 95 H From Monitor] Pulse Rate [ Posterior Throughout] Respiratory 13 12 Rate Respiratory Rate [Posterior Throughout] Blood Pressure 118/75 O2 Sat by Pulse 98 95 Oximetry - Labs CBC & Chem 7: 01/22/20 05:08 01/22/20 05:08 Labs: Abnormal lab results 01/21/20 01/21/20 01/21/20 Range/Units 13:07 13:07 13:08 WBC 3.8 L (4.5-11.0) K/mm3 RBC (3.65-5.03) M/mm3 MCV 107 H (79-97) fl MCH 36 H (28-32) pg Lymph % (Auto) (13.4-35.0) % [place] % (Auto) (0.0-7.3) % Lymphocytes % (Manual) 44.0 H (13.4-35.0) % ABG Base Excess (-2.0-3.0) mmol/L Oxyhemoglobin (95.0-99.0) % Carbon Dioxide 21 L (22-30) mmol/L Creatinine 0.6 L (0.7-1.2) mg/dL Glucose 276 H (65-100) mg/dL ALT (7-56) units/L Alkaline Phosphatase 132 H (35-129) units/L Albumin 3.8 L (3.9-5) g/dL Urine WBC (Auto) 14.0 H (0.0-6.0) /HPF 01/22/20 01/22/20 01/22/20 Range/Units 05:08 05:08 Unknown WBC (4.5-11.0) K/mm3 RBC 3.40 L (3.65-5.03) M/mm3 MCV 107 H (79-97) fl MCH 36 H (28-32) pg Lymph % (Auto) 42.4 H (13.4-35.0) % [place] % (Auto) 10.1 H (0.0-7.3) % Lymphocytes % (Manual) (13.4-35.0) % ABG Base Excess -3.6 L (-2.0-3.0) mmol/L Oxyhemoglobin 94.7 L (95.0-99.0) % Carbon Dioxide 20 L (22-30) mmol/L Creatinine 0.6 L (0.7-1.2) mg/dL Glucose 288 H (65-100) mg/dL ALT 6 L (7-56) units/L Alkaline Phosphatase (35-129) units/L Albumin 3.8 L (3.9-5) g/dL Urine WBC (Auto) (0.0-6.0) /HPF HEART Score - HEART Score Troponin: Troponin T < 0.010 ng/mL (0.00-0.029) 01/21/20 15:33
[2020-01-22] MEDS ORDERED: BUDESONIDE 0.5 MG/2 ML NEBU IH ONE (20:00)
[2020-01-22] MEDS: QUEtiapine 200 MG TAB PO SCH (22:59)
[2020-01-23] MEDS: INSULIN NPH/REGULAR 70/30 INJ SUB-Q SCH (08:23)
[2020-01-23] MEDS: TIOTROPIUM 18 MCG CAP INHALATION IH SCH (09:18)
[2020-01-23] MEDS: BUDESONIDE 0.5 MG/2 ML NEBU IH SCH (09:18)
[2020-01-23] MEDS: ONDANSETRON 8 MG ODT TAB PO PRN (09:39)
[2020-01-23] MEDS: POTASSIUM CHLORIDE ER 10 MEQ TAB PO SCH (09:40)
[2020-01-23] MEDS: FUROSEMIDE 40 MG TAB PO SCH (09:41)
[2020-01-23] MEDS: methylPREDNISolone Sod Succinate 40 MG/1 ML INJ IV SCH (09:41)
[2020-01-23] MEDS: PANTOPRAZOLE 40 MG TAB PO SCH (09:41)
[2020-01-23] MEDS: amLODIPine 5 MG TAB PO SCH (09:41)
[2020-01-23] MEDS: traMADol 50 MG TAB PO PRN (09:44)
[2020-01-23] MEDS: guaiFENesin ER 600 MG TAB PO SCH (10:00)
[2020-01-23 12:21] VITALS: BP 110/69
--- NOTE | 2020-01-23 12:23 | Discharge Summary ---
Providers - Providers Date of Admission: 01/21/20 20:09 Date of discharge: 01/23/20 Attending physician: CLAUS GILLETTE [facility] Condition: Stable Hospital course: 64-year-old woman with history of COPD, schizophrenia, HIV, bipolar, diastolic CHF, Well-known to the hospital presents with shortness of breath wheezing and coughing. Patient was admitted to medical floor with scheduled nebs, and supplemental O2 to keep O2 sat at 94%. CXR showed no infiltrates and no change comparing to prior one. Patients symptom improved with medical management. Patient was then discharged home in stable condition with outpt f/u. Discharge diagnosis and Mx: /Acute on chronic hypoxic respiratory failure due to COPD exacerbation Mx with Supplemental oxygen, nebulizer therapy, pulse oximetry, NIPPV as clinically indicated. / COPD exacerbation Placed on supplemental oxygen, neb therapy, pulse oximetry, NIPPV as clinically indicated. /Right great to pain, POA - supportive care XRY showed: hammertoe deformities especially of the great toe with moderate osteoporosis. There is no fracture or dislocation. No significant spurring or arthritic change. No acute abnormality. /diastolic CHF with pEF, compensated need further outpt f/u / History of HIV or AIDS Continued antiretroviral therapy, supportive care. / Hypertension Monitored blood pressure every shift, continue medical management. /Diabetes type 2, uncontrolled due to steroid Placed on Sliding scale insulin, consistent carbohydrate diet, Accu-Chek, hypoglycemia protocol. adjusted insulin dose to prevent hypoglycemia /Bipolar 1 disorder supportive care, continued prehospital medication. /Morbid obesity: weight reduction diet recommended / DVT prophylaxis SCD to bilateral lower extremities while in bed, prophylactic heparin. Disposition: home with Physical exam: GENERAL: well-developed and obese AAF lying on bed appeared to be in no discomfort. HEENT: Normocephalic. Atraumatic. No conjunctival congestion or icterus. Patient has moist mucous membranes. NECK: Supple. Trachea midline. CHEST/LUNGS: Diminished breath sounds auscultated bilaterally, breathing nonlabored. HEART/CARDIOVASCULAR: Regular in rate and rhythm. S1 and S2 positive. ABDOMEN: Abdomen is soft, nontender. Patient has normal bowel sounds. SKIN: There is no rash. Warm and dry. NEURO: No focal motor deficit. Follows command. MUSCULOSKELETAL: No joint effusion or tenderness. EXTRIMITY: No edema, no cyanosis or clubbing. PSYCH: Cooperative. Disposition: [id number]/[place]-06 HOME UNDER HOME [facility] Time spent for discharge: 34 minutes Core Measure Documentation - Palliative Care Palliative Care/ Comfort Measures: Not Applicable - Core Measures Any of the following diagnoses?: none Exam - Constitutional Vitals: Temp Pulse Resp BP Pulse Ox 97.8 F 92 H 18 133/84 97 01/23/20 04:49 01/23/20 09:18 01/23/20 09:18 01/23/20 04:48 01/23/20 04:49 Plan Activity: advance as tolerated Weight Bearing Status: Weight Bear as Tolerated Diet: low fat, low salt Follow up with: [facility] [Provider Group] - 3-5 Days [facility] [Provider Group] - 3-5 Days [facility] [Primary Care Provider] - 3-5 Days Prescriptions: QUEtiapine [SEROquel] 200 mg PO QHS #90 tablet amLODIPine 5 mg PO QDAY #30 tablet predniSONE [Deltasone] 40 mg PO QDAY #7 tablet Elviteg/Cob/Emtri/Tenof Alafen [Genvoya Tablet] 1 each PO DAILY #30 tablet Genvoya Tablet 1 tab PO DAILY #90 tab Potassium Chloride [K-Dur] 10 meq PO QDAY #30 tablet Furosemide [Lasix TAB] 40 mg PO QAM #30 tablet guaiFENesin ER [Mucinex ER] 600 mg PO BID #10 tablet Insulin NPH/Regular [NovoLIN 70/30] 30 unit SUB-Q BIDDIAB #2 vial Pantoprazole [Protonix TAB] 40 mg PO QDAY #30 tablet ALBUTEROL NEB's [Proventil 0.083% NEBS] 2.5 mg IH TID PRN #30 neb PRN Reason: Wheezing Albuterol Sulfate [Proventil Hfa] 2 puff IH Q4HR PRN #1 hfa.aer.ad PRN Reason: Wheezing Tiotropium Crowell [Spiriva Respimat] 2 inhalation IH DAILY #1 mist.inhal Budesonide/Formoterol Fumarate [Symbicort 160-4.5 Mcg Inhaler] 2 inhalation IH BID #1 hfa.aer.ad traMADoL [Ultram 50 MG tab] 50 mg PO Q6H PRN #14 tablet PRN Reason: Pain, Moderate (4-6)
== END 2020-01-23 16:45 | disposition home or self-care (01) | DRG 189 ==
LOC: ED 11:17 → IMCU 20:09
PROVIDERS: ADMIT Internal Medicine; ATTEND Internal Medicine
PROC: 4A033R1 Measurement of Arterial Saturation, Peripheral, Percutaneous Approach (ICD-10-PCS; principal; 2020-01-21)
DX: J96.21 Acute and chronic respiratory failure with hypoxia (principal); J44.1 Chronic obstructive pulmonary disease with (acute) exacerbation; I50.32 Chronic diastolic (congestive) heart failure; N39.0 Urinary tract infection, site not specified; E66.2 Morbid (severe) obesity with alveolar hypoventilation; F20.9 Schizophrenia, unspecified; I11.0 Hypertensive heart disease with heart failure; M81.0 Age-related osteoporosis without current pathological fracture; E09.9 Drug or chemical induced diabetes mellitus without complications; T38.0X5A Adverse effect of glucocorticoids and synthetic analogues, initial encounter; F31.9 Bipolar disorder, unspecified; Z21 Asymptomatic human immunodeficiency virus [HIV] infection status; M79.674 Pain in right toe(s); G40.909 Epilepsy, unspecified, not intractable, without status epilepticus; Y92.89 Other specified places as the place of occurrence of the external cause; Z71.3 Dietary counseling and surveillance; Z68.39 Body mass index [BMI] 39.0-39.9, adult; Z90.710 Acquired absence of both cervix and uterus; Z82.49 Family history of ischemic heart disease and other diseases of the circulatory system; Z88.1 Allergy status to other antibiotic agents; Z91.013 Allergy to seafood; Z79.4 Long term (current) use of insulin; Z79.899 Other long term (current) drug therapy; Z86.711 Personal history of pulmonary embolism
CPT/HCPCS: 36415; 36600; 71045; 80053; 80307; 81001; 82803; 82962; 83690; 84484; 85007; 85025; 85610; 85730; 87086; 93005; 94640; 94644; G0378; J1815; J1956; J2270; J2405; J2920; J2930; J3475; Q0162

== ENCOUNTER 2020-02-26 11:29 | Emergency (ER) | payer MEDICARE ==
--- NOTE | 2020-02-26 13:02 | Event Note ---
ED Screening Note ED Screening Note: PCP is Dr. Loco Russell, called pt today due to hypokalemia on routine labs and advised to be seen in ED she has CP and SOB for three days hx of CHF, seizures, HIV mild dry cough no n/v/d no fever This initial assessment/diagnostic orders/clinical plan/treatment(s) is/are subject to change based on patients health status, clinical progression and re- assessment by fellow clinical providers in the ED. Further treatment and workup at subsequent clinical providers discretion. Patient/guardian urged not to elope from the ED as their condition may be serious if not clinically assessed and managed. Initial orders include: labs, EKG, CXR
--- NOTE | 2020-02-26 13:24 | XRay Report ---
CHEST 2 VIEWS INDICATION: Chest Pain. COMPARISON: 01/21/2020 FINDINGS: Support devices: None. Heart: Within normal limits. Lungs/pleura: No acute air space or interstitial disease. No pneumothorax. Additional findings: None. IMPRESSION: No acute findings. Signer Name: Pradeep Walsh Jr, MD Signed: 02/26/2020 1:19 PM Workstation Name: [id number]
[2020-02-26 13:44] LABS: Basophils % (Auto) 0.4 % (0.0-1.8); Eosinophils % (Auto) 1.2 % (0.0-4.3); Hematocrit 40.8 % (30.3-42.9); Hemoglobin 13.6 gm/dl (10.1-14.3); Mean Corpuscular HGB Conc 33 % (30-34); Mean Corpuscular Volume 107 fl (79-97); Monocytes # (Auto) 0.3 K/mm3 (0.0-0.8); Monocytes % (Auto) 6.9 % (0.0-7.3); Platelet Count 199 K/mm3 (140-440); Red Blood Count 3.82 M/mm3 (3.65-5.03); Red Cell Distribution Width 14.9 % (13.2-15.2)
[2020-02-26 13:53] LABS: INR 1.01 (0.87-1.13)
[2020-02-26 13:54] LABS: Partial Thromboplastin Time 29.2 Sec. (24.2-36.6)
[2020-02-26 13:59] LABS: Alanine Aminotransferase 6 units/L (7-56); Albumin 4.2 g/dL (3.9-5); BUN/Creatinine Ratio 23; Blood Urea Nitrogen 18 mg/dL (7-17); Calcium 9.3 mg/dL (8.4-10.2); Hemolysis Index 10
[2020-02-26] MEDS ORDERED: IPRATROPIUM 0.02% NEBU 2.5 ML IH ONE (17:58)
[2020-02-26] MEDS ORDERED: ALBUTEROL 2.5 MG/3 ML NEBU IH ONE (17:58)
[2020-02-26] MEDS ORDERED: methylPREDNISolone Sod Succinate 125 MG/2 ML INJ IM ONE (17:59)
--- NOTE | 2020-02-26 18:06 | Emergency Department Report ---
ED Shortness of Breath HPI - General Chief Complaint: Chest Pain Stated Complaint: LOW POTASSIUM Time Seen by Provider: 02/26/20 13:01 Source: patient Mode of arrival: Ambulatory Limitations: No Limitations - History of Present Illness Initial Comments: Patient is 65 years old female with history of COPD, CHF, HIV. Patient presented to the ER stating that she received a call from her primary care physician asking her to come to the ER because her potassium was low. Patient stated that they took her blood 3 days ago. Patient is also complaining of shortness of breath, cough, chills but no fever. Patient denied any left sided chest pain however stating that she is hurting all over her chest especially when she coughs. Patient denied contact with COVID-19 patients. MD Complaint: shortness of breath, cough -: days(s) (3) Severity: moderate Known History Of: COPD, congestive heart failure Context: recent URI - Related Data Previous Rx's Medication Instructions Recorded Last Taken Type Glycerin/ Witch Lise Pad [Tucks 1 each TP PRN PRN #1 box 12/21/19 Unknown Rx Pad] ALBUTEROL NEB's [Proventil 0.083% 2.5 mg IH TID PRN #30 neb 01/23/20 Unknown Rx NEBS] Albuterol Sulfate [Proventil Hfa] 2 puff IH Q4HR PRN #1 hfa.aer.ad 01/23/20 Unknown Rx Budesonide/Formoterol Fumarate 2 inhalation IH BID #1 hfa.aer.ad 01/23/20 Unknown Rx [Symbicort 160-4.5 Mcg Inhaler] Elviteg/Cob/Emtri/Tenof Alafen 1 each PO DAILY #30 tablet 01/23/20 Unknown Rx [Genvoya Tablet] Furosemide [Lasix TAB] 40 mg PO QAM #30 tablet 01/23/20 Unknown Rx Genvoya Tablet 1 tab PO DAILY #90 tab 01/23/20 Unknown Rx Insulin NPH/Regular [NovoLIN 70/30] 30 unit SUB-Q BIDDIAB #2 vial 01/23/20 Unknown Rx Pantoprazole [Protonix TAB] 40 mg PO QDAY #30 tablet 01/23/20 Unknown Rx Potassium Chloride [K-Dur] 10 meq PO QDAY #30 tablet 01/23/20 Unknown Rx QUEtiapine [SEROquel] 200 mg PO QHS #90 tablet 01/23/20 Unknown Rx Tiotropium Goltry [Spiriva 2 inhalation IH DAILY #1 mist.inhal 01/23/20 Unknown Rx Respimat] amLODIPine 5 mg PO QDAY #30 tablet 01/23/20 Unknown Rx guaiFENesin ER [Mucinex ER] 600 mg PO BID #10 tablet 01/23/20 Unknown Rx predniSONE [Deltasone] 40 mg PO QDAY #7 tablet 01/23/20 Unknown Rx traMADoL [Ultram 50 MG tab] 50 mg PO Q6H PRN #14 tablet 01/23/20 Unknown Rx Allergies Allergy/AdvReac Type Severity Reaction Status Date / Time shellfish derived Allergy Severe Shortness Verified 02/26/20 12:06 of Breath ibuprofen [From Motrin] Allergy Mild Shortness Verified 02/26/20 12:06 of Breath tetracycline Allergy Shortness Verified 02/26/20 12:06 of Breath ED Review of Systems ROS: Stated complaint: LOW POTASSIUM Other details as noted in HPI Comment: All other systems reviewed and negative Constitutional: chills. denies: fever Respiratory: cough, shortness of breath, wheezing Cardiovascular: denies: chest pain, palpitations Musculoskeletal: denies: back pain ED Past Medical Hx - Past Medical History Hx Hypertension: Yes Hx Congestive Heart Failure: Yes Hx Diabetes: Yes Hx Deep Vein Thrombosis: No Hx Pulmonary Embolism: Yes Hx GERD: No Hx Renal Disease: No Hx Arthritis: No Hx Seizures: Yes Hx Kidney Stones: No Hx Psychiatric Treatment: Yes (bipolar disorder; schziphornia) Hx Asthma: No Hx COPD: No Hx Tuberculosis: No Hx Dementia: No Hx HIV: Yes Additional medical history: CDIFF, spinal stenosis - Surgical History Hx Open Heart Surgery: No Hx Pacemaker: No Hx Internal Defibrillator: No Hx Cholecystectomy: No Hx Appendectomy: No Hx Breast Surgery: No Additional Surgical History: hysterectomy; rt arm skin graph - Social History Smoking Status: Unknown if ever smoked Substance Use Type: None - Medications Home Medications: Home Medications Medication Instructions Recorded Confirmed Last Taken Type Glycerin/ Witch Lise Pad [Tucks 1 each TP PRN PRN #1 box 20 01/22/20 Unknown Rx Pad] ALBUTEROL NEB's [Proventil 0.083% 2.5 mg IH TID PRN #30 neb 01/23/20 Unknown Rx NEBS] Albuterol Sulfate [Proventil Hfa] 2 puff IH Q4HR PRN #1 hfa.aer.ad 01/23/20 Unknown Rx Budesonide/Formoterol Fumarate 2 inhalation IH BID #1 hfa.aer.ad 01/23/20 Unknown Rx [Symbicort 160-4.5 Mcg Inhaler] Elviteg/Cob/Emtri/Tenof Alafen 1 each PO DAILY #30 tablet 01/23/20 Unknown Rx [Genvoya Tablet] Furosemide [Lasix TAB] 40 mg PO QAM #30 tablet 01/23/20 Unknown Rx Genvoya Tablet 1 tab PO DAILY #90 tab 01/23/20 Unknown Rx Insulin NPH/Regular [NovoLIN 70/30] 30 unit SUB-Q BIDDIAB #2 vial 01/23/20 Unknown Rx Pantoprazole [Protonix TAB] 40 mg PO QDAY #30 tablet 01/23/20 Unknown Rx Potassium Chloride [K-Dur] 10 meq PO QDAY #30 tablet 01/23/20 Unknown Rx QUEtiapine [SEROquel] 200 mg PO QHS #90 tablet 01/23/20 Unknown Rx Tiotropium Goltry [Spiriva 2 inhalation IH DAILY #1 mist.inhal 01/23/20 Unknown Rx Respimat] amLODIPine 5 mg PO QDAY #30 tablet 01/23/20 Unknown Rx guaiFENesin ER [Mucinex ER] 600 mg PO BID #10 tablet 01/23/20 Unknown Rx predniSONE [Deltasone] 40 mg PO QDAY #7 tablet 01/23/20 Unknown Rx traMADoL [Ultram 50 MG tab] 50 mg PO Q6H PRN #14 tablet 01/23/20 Unknown Rx ED Physical Exam - General Limitations: No Limitations General appearance: alert, in no apparent distress - Head Head exam: Present: atraumatic, normocephalic, normal inspection - Eye Eye exam: Present: normal appearance - ENT ENT exam: Present: normal exam, normal orophraynx, mucous membranes moist - Neck Neck exam: Present: normal inspection, full ROM. Absent: tenderness, meningismus, lymphadenopathy, thyromegaly - Respiratory Respiratory exam: Present: respiratory distress, wheezes. Absent: rales, rhonchi, accessory muscle use, decreased breath sounds, prolonged expiratory - Cardiovascular Cardiovascular Exam: Present: regular rate, normal rhythm, normal heart sounds - GI/Abdominal GI/Abdominal exam: Present: soft, normal bowel sounds. Absent: distended, tenderness, guarding, rebound, rigid, organomegaly, mass, bruit, pulsatile mass, hernia - Extremities Exam Extremities exam: Present: normal inspection, full ROM, normal capillary refill. Absent: tenderness, pedal edema, calf tenderness - Back Exam Back exam: Present: normal inspection, full ROM. Absent: tenderness, CVA tenderness (R), CVA tenderness (L) - Neurological Exam Neurological exam: Present: alert, oriented X3, CN II-XII intact, normal gait - Psychiatric Psychiatric exam: Present: normal mood - Skin Skin exam: Present: warm, intact, normal color ED Course Vital Signs 02/26/20 12:08 Temperature 99.4 F Pulse Rate 93 H Respiratory 22 Rate Blood Pressure 124/91 [Left] O2 Sat by Pulse 97 Oximetry ED Medical Decision Making - Lab Data Result diagrams: 02/26/20 13:07 02/26/20 13:07 - EKG Data -: EKG Interpreted by Mo EKG shows normal: sinus rhythm Rate: normal - EKG Data Interpretation: no acute changes - Radiology Data Radiology results: report reviewed - Medical Decision Making Patient is 65 years old female with history of COPD, CHF, HIV. Patient presented to the ER stating that she received a call from her primary care physician asking her to come to the ER because her potassium was low. Patient stated that they took her blood 3 days ago. Patient is also complaining of shortness of breath, cough, chills but no fever. Patient denied any left sided chest pain however stating that she is hurting all over her chest especially when she coughs. Patient denied contact with COVID-19 patients. Patient potassium is 4. Patient received albuterol, Atrovent and Solu-Medrol patient stated that she is feeling much better. Chest pain is most likely atypical however EKG showed no ST elevation or depression. 2 sets of troponin is negative. Chest x-ray is unremarkable. Patient given prescription for prednisone, Levaquin and advised to follow-up with her primary care physician in the next 2 to 3 days and to return to the ER if she develop any new symptoms. Critical care attestation.: If time is entered above; I have spent that time in minutes in the direct care of this critically ill patient, excluding procedure time. ED Disposition Clinical Impression: COPD with exacerbation, Acute bronchitis Disposition: DC-01 TO HOME OR SELFCARE Is pt being admited?: No Condition: Stable Instructions: Chronic Obstructive Pulmonary Disease (ED), Acute Bronchitis (ED) Referrals: PRIMARY CARE,MD [Primary Care Provider] - 3-5 Days
[2020-02-26 18:47] VITALS: BP 125/96
== END 2020-02-26 21:10 | disposition home or self-care (01) ==
LOC: ED 11:29
DX: J44.1 Chronic obstructive pulmonary disease with (acute) exacerbation (principal); J20.9 Acute bronchitis, unspecified; I11.0 Hypertensive heart disease with heart failure; I50.9 Heart failure, unspecified; E11.9 Type 2 diabetes mellitus without complications; R56.9 Unspecified convulsions; F31.9 Bipolar disorder, unspecified; Z90.710 Acquired absence of both cervix and uterus; Z21 Asymptomatic human immunodeficiency virus [HIV] infection status; Z79.4 Long term (current) use of insulin; Z79.899 Other long term (current) drug therapy; Z91.013 Allergy to seafood; Z88.8 Allergy status to other drugs, medicaments and biological substances
CPT/HCPCS: 36415; 71046; 80053; 83880; 84484; 85025; 85610; 85730; 93005; 94640; 96372; 99284; J2930; 94644

== ENCOUNTER 2020-05-07 14:05 | Emergency (ER) | payer MEDICARE ==
--- NOTE | 2020-05-07 15:31 | XRay Report ---
CHEST PA AND LATERAL VIEWS INDICATION: SOB. COMPARISON: 04/03/2020 FINDINGS: Support devices: None. Heart: Within normal limits. Lungs/Pleura: No acute pulmonary or pleural findings. IMPRESSION: 1. No acute findings. Signer Name: Elliott Mcpherson MD Signed: 05/07/2020 3:26 PM Workstation Name: [id number]
--- NOTE | 2020-05-07 16:10 | Emergency Department Report ---
ED Shortness of Breath HPI - General Chief Complaint: Dyspnea/Respdistress Stated Complaint: SOB Time Seen by Provider: 05/07/20 15:55 Source: patient Mode of arrival: Ambulatory Limitations: No Limitations - History of Present Illness Initial Comments: CC: "I have just been short of breath. I feel better now." HPI: This is a 65-year-old female with history of diabetes mellitus, HIV, hypertension, obesity, systolic CHF, seizure disorder, COPD, bipolar disorder, GERD who presents with shortness of breath for 3 days. Patient also has had fever nonproductive cough. No sick contacts. She lives home with a roommate. She denies leg swelling. She denies leg pain. MD Complaint: shortness of breath, cough -: Gradual, days(s) (3) Severity: mild Consistency: now resolved Improves With: rest Worsens With: nothing Known History Of: COPD, congestive heart failure Associated Symptoms: fever, cough - Related Data Previous Rx's Medication Instructions Recorded Last Taken Type Glycerin/ Witch Lise Pad [Tucks 1 each TP PRN PRN #1 box 12/21/19 Unknown Rx Pad] ALBUTEROL NEB's [Proventil 0.083% 2.5 mg IH TID PRN #30 neb 01/23/20 Unknown Rx NEBS] Albuterol Sulfate [Proventil Hfa] 2 puff IH Q4HR PRN #1 hfa.aer.ad 01/23/20 Unknown Rx Budesonide/Formoterol Fumarate 2 inhalation IH BID #1 hfa.aer.ad 01/23/20 Unknown Rx [Symbicort 160-4.5 Mcg Inhaler] Elviteg/Cob/Emtri/Tenof Alafen 1 each PO DAILY #30 tablet 01/23/20 Unknown Rx [Genvoya Tablet] Furosemide [Lasix TAB] 40 mg PO QAM #30 tablet 01/23/20 Unknown Rx Genvoya Tablet 1 tab PO DAILY #90 tab 01/23/20 Unknown Rx Insulin NPH/Regular [NovoLIN 70/30] 30 unit SUB-Q BIDDIAB #2 vial 01/23/20 Unknown Rx Pantoprazole [Protonix TAB] 40 mg PO QDAY #30 tablet 01/23/20 Unknown Rx Potassium Chloride [K-Dur] 10 meq PO QDAY #30 tablet 01/23/20 Unknown Rx QUEtiapine [SEROquel] 200 mg PO QHS #90 tablet 01/23/20 Unknown Rx Tiotropium Ambrose [Spiriva 2 inhalation IH DAILY #1 mist.inhal 01/23/20 Unknown Rx Respimat] amLODIPine 5 mg PO QDAY #30 tablet 01/23/20 Unknown Rx guaiFENesin ER [Mucinex ER] 600 mg PO BID #10 tablet 01/23/20 Unknown Rx predniSONE [Deltasone] 40 mg PO QDAY #7 tablet 01/23/20 Unknown Rx traMADoL [Ultram 50 MG tab] 50 mg PO Q6H PRN #14 tablet 01/23/20 Unknown Rx Prednisone [predniSONE 10 mg 10 mg PO .TAPER #1 tab.ds.pk 02/26/20 Unknown Rx (6-Day Pack, 21 Tabs)] guaiFENesin/CODEINE [Robitussin AC] 10 ml PO TID PRN #100 ml 02/26/20 Unknown Rx levoFLOXacin [Levaquin TAB] 500 mg PO QDAY #7 tablet 02/26/20 Unknown Rx Albuterol Mdi (or & Nicu Only) 2 puff IH Q4HR PRN #1 inhalation 04/03/20 Unknown Rx [ProAir HFA Inhaler] Azithromycin [Zithromax Z-LUAN] 250 mg PO DAILY #6 tablet 04/03/20 Unknown Rx Benzonatate [Tessalon Perles] 100 mg PO Q8HR PRN #20 capsule 04/03/20 Unknown Rx predniSONE [Deltasone] 20 mg PO DAILY #15 tablet 04/03/20 Unknown Rx Allergies Allergy/AdvReac Type Severity Reaction Status Date / Time shellfish derived Allergy Severe Shortness Verified 02/26/20 12:06 of Breath ibuprofen [From Motrin] Allergy Mild Shortness Verified 02/26/20 12:06 of Breath tetracycline Allergy Shortness Verified 02/26/20 12:06 of Breath ED Review of Systems ROS: Stated complaint: SOB Other details as noted in HPI Comment: All other systems reviewed and negative Constitutional: fever. denies: malaise Respiratory: cough, shortness of breath Cardiovascular: denies: chest pain Gastrointestinal: denies: abdominal pain, nausea, vomiting Neurological: denies: headache ED Past Medical Hx - Past Medical History Previous Medical History?: Yes Hx Hypertension: Yes Hx Congestive Heart Failure: Yes Hx Diabetes: Yes Hx Deep Vein Thrombosis: No Hx Pulmonary Embolism: Yes Hx GERD: No Hx Renal Disease: No Hx Arthritis: No Hx Seizures: Yes Hx Kidney Stones: No Hx Psychiatric Treatment: Yes (bipolar disorder; schziphornia) Hx Asthma: No Hx COPD: No Hx Tuberculosis: No Hx Dementia: No Hx HIV: Yes Additional medical history: CDIFF, spinal stenosis - Surgical History Past Surgical History?: Yes Hx Open Heart Surgery: No Hx Pacemaker: No Hx Internal Defibrillator: No Hx Cholecystectomy: No Hx Appendectomy: No Hx Breast Surgery: No Additional Surgical History: Hysterectomy - Social History Smoking Status: Never Smoker Substance Use Type: None - Medications Home Medications: Home Medications Medication Instructions Recorded Confirmed Last Taken Type Glycerin/ Witch Lise Pad [Tucks 1 each TP PRN PRN #1 box 12/21/19 01/22/20 Unknown Rx Pad] ALBUTEROL NEB's [Proventil 0.083% 2.5 mg IH TID PRN #30 neb 01/23/20 Unknown Rx NEBS] Albuterol Sulfate [Proventil Hfa] 2 puff IH Q4HR PRN #1 hfa.aer.ad 01/23/20 Unknown Rx Budesonide/Formoterol Fumarate 2 inhalation IH BID #1 hfa.aer.ad 01/23/20 Unknown Rx [Symbicort 160-4.5 Mcg Inhaler] Elviteg/Cob/Emtri/Tenof Alafen 1 each PO DAILY #30 tablet 01/23/20 Unknown Rx [Genvoya Tablet] Furosemide [Lasix TAB] 40 mg PO QAM #30 tablet 01/23/20 Unknown Rx Genvoya Tablet 1 tab PO DAILY #90 tab 01/23/20 Unknown Rx Insulin NPH/Regular [NovoLIN 70/30] 30 unit SUB-Q BIDDIAB #2 vial 01/23/20 Unknown Rx Pantoprazole [Protonix TAB] 40 mg PO QDAY #30 tablet 01/23/20 Unknown Rx Potassium Chloride [K-Dur] 10 meq PO QDAY #30 tablet 01/23/20 Unknown Rx QUEtiapine [SEROquel] 200 mg PO QHS #90 tablet 01/23/20 Unknown Rx Tiotropium Ambrose [Spiriva 2 inhalation IH DAILY #1 mist.inhal 01/23/20 Unknown Rx Respimat] amLODIPine 5 mg PO QDAY #30 tablet 01/23/20 Unknown Rx guaiFENesin ER [Mucinex ER] 600 mg PO BID #10 tablet 01/23/20 Unknown Rx predniSONE [Deltasone] 40 mg PO QDAY #7 tablet 01/23/20 Unknown Rx traMADoL [Ultram 50 MG tab] 50 mg PO Q6H PRN #14 tablet 01/23/20 Unknown Rx Prednisone [predniSONE 10 mg 10 mg PO .TAPER #1 tab.ds.pk 02/26/20 Unknown Rx (6-Day Pack, 21 Tabs)] guaiFENesin/CODEINE [Robitussin AC] 10 ml PO TID PRN #100 ml 02/26/20 Unknown Rx levoFLOXacin [Levaquin TAB] 500 mg PO QDAY #7 tablet 02/26/20 Unknown Rx Albuterol Mdi (or & Nicu Only) 2 puff IH Q4HR PRN #1 inhalation 04/03/20 Unknown Rx [ProAir HFA Inhaler] Azithromycin [Zithromax Z-LUAN] 250 mg PO DAILY #6 tablet 04/03/20 Unknown Rx Benzonatate [Tessalon Perles] 100 mg PO Q8HR PRN #20 capsule 04/03/20 Unknown Rx predniSONE [Deltasone] 20 mg PO DAILY #15 tablet 04/03/20 Unknown Rx ED Physical Exam - General Limitations: No Limitations General appearance: alert, in no apparent distress - Head Head exam: Present: atraumatic, normocephalic - Eye Eye exam: Present: normal appearance - ENT ENT exam: Present: mucous membranes moist - Neck Neck exam: Present: normal inspection, full ROM - Respiratory Respiratory exam: Present: normal lung sounds bilaterally. Absent: respiratory distress, wheezes, rales, rhonchi - Cardiovascular Cardiovascular Exam: Present: regular rate, normal rhythm, normal heart sounds. Absent: systolic murmur, diastolic murmur, rubs, gallop - GI/Abdominal GI/Abdominal exam: Present: soft, normal bowel sounds. Absent: distended, tenderness, guarding, rebound - Extremities Exam Extremities exam: Present: normal inspection - Neurological Exam Neurological exam: Present: alert, oriented X3 - Psychiatric Psychiatric exam: Present: normal mood, flat affect - Skin Skin exam: Present: warm, dry, intact, normal color. Absent: rash ED Course Vital Signs 05/07/20 05/07/20 15:28 15:30 Pulse Rate 78 Respiratory 13 Rate Blood Pressure 145/84 O2 Sat by Pulse 98 97 Oximetry ED Medical Decision Making - Medical Decision Making Ms. Ramirez presents with shortness of breath. She has a history of COPD and CHF. She has normal lung exam. Normal oxygen saturation. Normal chest radiograph. Patient will be discharged home stable condition. Last month patient received prescription for azithromycin Tessalon Perles prednisone Critical care attestation.: If time is entered above; I have spent that time in minutes in the direct care of this critically ill patient, excluding procedure time. ED Disposition Clinical Impression: CHF (congestive heart failure), COPD (chronic obstructive pulmonary disease) Disposition: DC-01 TO HOME OR SELFCARE Is pt being admited?: No Does the pt Need Aspirin: No Condition: Stable Referrals: PRIMARY CARE, [Referring] - as needed
[2020-05-07] MEDS ORDERED: IPRATROPIUM/ALBUTEROL SULFATE 3 ML AMPUL.NEB IH ONE (16:56)
[2020-05-07 17:18] VITALS: BP 115/87
== END 2020-05-07 17:19 | disposition home or self-care (01) ==
LOC: ED 14:05
DX: I11.0 Hypertensive heart disease with heart failure (principal); I50.9 Heart failure, unspecified; E11.9 Type 2 diabetes mellitus without complications; F20.89 Other schizophrenia; F31.9 Bipolar disorder, unspecified; Z90.710 Acquired absence of both cervix and uterus; Z79.899 Other long term (current) drug therapy; Z88.6 Allergy status to analgesic agent; Z91.018 Allergy to other foods; Z86.711 Personal history of pulmonary embolism; Z79.01 Long term (current) use of anticoagulants
CPT/HCPCS: 71046; 93005; 99283

== ENCOUNTER 2021-04-17 07:42 | Emergency (ER) | payer MEDICARE ==
[2021-04-17] MEDS ORDERED: ASPIRIN 325 MG TAB PO ONE (07:55)
[2021-04-17 08:42] LABS: Basophils % (Auto) 0.7 % (0.0-1.8); Eosinophils % (Auto) 0.6 % (0.0-4.3); Hematocrit 40.1 % (30.3-42.9); Hemoglobin 13.7 gm/dl (10.1-14.3); Lymphocytes # (Auto) 3.5 K/mm3 (1.2-5.4); Lymphocytes % (Auto) 53.3 % (13.4-35.0); Mean Corpuscular HGB Conc 34 % (30-34); Mean Corpuscular Volume 107 fl (79-97); Monocytes # (Auto) 0.3 K/mm3 (0.0-0.8); Monocytes % (Auto) 4.9 % (0.0-7.3); Platelet Count 182 K/mm3 (140-440); Red Blood Count 3.73 M/mm3 (3.65-5.03); Red Cell Distribution Width 14.3 % (13.2-15.2)
[2021-04-17 09:02] LABS: Alanine Aminotransferase 7 units/L (7-56); Albumin 4.1 g/dL (3.9-5); Blood Urea Nitrogen 16 mg/dL (7-17); Calcium 9.7 mg/dL (8.4-10.2); Hemolysis Index 17
[2021-04-17 09:03] LABS: BUN/Creatinine Ratio 27
--- NOTE | 2021-04-17 09:10 | XRay Report ---
CHEST 2 VIEWS INDICATION / CLINICAL INFORMATION: CP WITH SOB. COMPARISON: 05/07/2020 FINDINGS: SUPPORT DEVICES: None. HEART / MEDIASTINUM: Unchanged LUNGS / PLEURA: No significant pulmonary or pleural abnormality. No pneumothorax. ADDITIONAL FINDINGS: No significant additional findings. IMPRESSION: 1. No acute findings. Signer Name: Manuelito Menon MD Signed: 04/17/2021 9:06 AM Workstation Name: [id number]
--- NOTE | 2021-04-17 10:25 | Event Note ---
ED Screening Note ED Screening Note: SOB for three days pain with deep breath +cough +n/v +headache +left CP- sharp pain states she had four episodes of vomiting no diarrhea no leg swelling no COVID vaccine no known sick contact no travel PMHx CHF, DM, seizure This initial assessment/diagnostic orders/clinical plan/treatment(s) is/are subject to change based on patients health status, clinical progression and re- assessment by fellow clinical providers in the ED. Further treatment and workup at subsequent clinical providers discretion. Patient/guardian urged not to elope from the ED as their condition may be serious if not clinically assessed and managed. Initial orders include: labs, ekg, cxr ordered will add on d-dimer due to tachycardia with pleuritic pain and lipase due to vomiting
[2021-04-17] MEDS ORDERED: IPRATROPIUM 0.02% NEBU 2.5 ML IH ONE ×2 (10:26→14:29)
[2021-04-17] MEDS ORDERED: ALBUTEROL 2.5 MG/3 ML NEBU IH ONE ×2 (10:26→14:29)
[2021-04-17] MEDS ORDERED: dexAMETHasone 20 MG/5 ML VIAL IV ONE ×2 (10:26→21:05)
[2021-04-17] MEDS ORDERED: ONDANSETRON 4 MG/2 ML INJ IV ONE ×2 (10:27→21:05)
[2021-04-17] MEDS ORDERED: MORPHINE 4 MG/1 ML INJ IV ONE ×2 (10:50→21:05)
--- NOTE | 2021-04-17 10:55 | Emergency Department Report ---
ED Shortness of Breath HPI - General Chief Complaint: Dyspnea/Respdistress Stated Complaint: SOB Time Seen by Provider: 04/17/21 10:22 Source: patient Mode of arrival: Ambulatory Limitations: No Limitations - History of Present Illness Initial Comments: Patient is 65 years old female with history of COPD and congestive heart failure. Patient presented to the ER complaining of 3-day history of shortness of breath, cough, productive with greenish sputum. Patient stated that she has some chills but no fever. Patient also complaining of nausea but no vomiting. Patient is also complaining of headache on and off since the beginning of the symptoms. Patient denied any sick contact. Patient is not vaccinated against COVID-19 yet. MD Complaint: shortness of breath, cough -: days(s) (3) Severity: moderate Consistency: constant Known History Of: COPD, congestive heart failure Context: recent URI Associated Symptoms: cough, sputum production Treatments Prior to Arrival: none - Related Data Previous Rx's Medication Instructions Recorded Last Taken Type Glycerin/ Witch Lise Pad [Tucks 1 each TP PRN PRN #1 box 12/21/19 Unknown Rx Pad] ALBUTEROL NEB's [Proventil 0.083% 2.5 mg IH TID PRN #30 neb 01/23/20 Unknown Rx NEBS] Albuterol Sulfate [Proventil Hfa] 2 puff IH Q4HR PRN #1 hfa.aer.ad 01/23/20 Unknown Rx Budesonide/Formoterol Fumarate 2 inhalation IH BID #1 hfa.aer.ad 01/23/20 Unknown Rx [Symbicort 160-4.5 Mcg Inhaler] Elviteg/Cob/Emtri/Tenof Alafen 1 each PO DAILY #30 tablet 01/23/20 Unknown Rx [Genvoya Tablet] Furosemide [Lasix TAB] 40 mg PO QAM #30 tablet 01/23/20 Unknown Rx Genvoya Tablet 1 tab PO DAILY #90 tab 01/23/20 Unknown Rx Insulin NPH/Regular [NovoLIN 70/30] 30 unit SUB-Q BIDDIAB #2 vial 01/23/20 Unknown Rx Pantoprazole [Protonix TAB] 40 mg PO QDAY #30 tablet 01/23/20 Unknown Rx Potassium Chloride [K-Dur] 10 meq PO QDAY #30 tablet 01/23/20 Unknown Rx QUEtiapine [SEROquel] 200 mg PO QHS #90 tablet 01/23/20 Unknown Rx Tiotropium [place] [Spiriva 2 inhalation IH DAILY #1 mist.inhal 01/23/20 Unknown Rx Respimat] amLODIPine 5 mg PO QDAY #30 tablet 01/23/20 Unknown Rx guaiFENesin ER [Mucinex ER] 600 mg PO BID #10 tablet 01/23/20 Unknown Rx predniSONE [Deltasone] 40 mg PO QDAY #7 tablet 01/23/20 Unknown Rx traMADoL [Ultram 50 MG tab] 50 mg PO Q6H PRN #14 tablet 01/23/20 Unknown Rx Prednisone [predniSONE 10 mg 10 mg PO .TAPER #1 tab.ds.pk 02/26/20 Unknown Rx (6-Day Pack, 21 Tabs)] guaiFENesin/CODEINE [Robitussin AC] 10 ml PO TID PRN #100 ml 02/26/20 Unknown Rx levoFLOXacin [Levaquin TAB] 500 mg PO QDAY #7 tablet 02/26/20 Unknown Rx Albuterol Mdi (or & Nicu Only) 2 puff IH Q4HR PRN #1 inhalation 04/03/20 Unknown Rx [ProAir HFA Inhaler] Azithromycin [Zithromax Z-LUAN] 250 mg PO DAILY #6 tablet 04/03/20 Unknown Rx Benzonatate [Tessalon Perles] 100 mg PO Q8HR PRN #20 capsule 04/03/20 Unknown Rx predniSONE [Deltasone] 20 mg PO DAILY #15 tablet 04/03/20 Unknown Rx Allergies Allergy/AdvReac Type Severity Reaction Status Date / Time shellfish derived Allergy Severe Shortness Verified 04/17/21 07:51 of Breath ibuprofen [From Motrin] Allergy Mild Shortness Verified 04/17/21 07:51 of Breath aspirin Allergy Itching Verified 04/17/21 08:01 tetracycline Allergy Shortness Verified 04/17/21 07:51 of Breath ED Review of Systems ROS: Stated complaint: SOB Other details as noted in HPI Comment: All other systems reviewed and negative Constitutional: chills. denies: fever Respiratory: cough, shortness of breath, SOB with exertion, SOB at rest, wheezing Cardiovascular: denies: chest pain, palpitations Gastrointestinal: denies: abdominal pain, nausea, vomiting Musculoskeletal: denies: back pain Neurological: denies: headache, weakness, numbness, paresthesias, confusion, abnormal gait Psychiatric: denies: depression, suicidal thoughts ED Past Medical Hx - Past Medical History Hx Hypertension: Yes Hx Congestive Heart Failure: Yes Hx Diabetes: Yes Hx Deep Vein Thrombosis: No Hx Pulmonary Embolism: Yes Hx GERD: No Hx Renal Disease: No Hx Arthritis: No Hx Seizures: Yes Hx Kidney Stones: No Hx Psychiatric Treatment: Yes (bipolar disorder; schziphornia) Hx Asthma: No Hx COPD: No Hx Tuberculosis: No Hx Dementia: No Hx HIV: Yes Additional medical history: CDIFF, spinal stenosis - Surgical History Hx Open Heart Surgery: No Hx Pacemaker: No Hx Internal Defibrillator: No Hx Cholecystectomy: No Hx Appendectomy: No Hx Breast Surgery: No Additional Surgical History: Hysterectomy - Social History Smoking Status: Never Smoker - Medications Home Medications: Home Medications Medication Instructions Recorded Confirmed Last Taken Type Glycerin/ Witch Lise Pad [Tucks 1 each TP PRN PRN #1 box 12/21/19 01/22/20 Unknown Rx Pad] ALBUTEROL NEB's [Proventil 0.083% 2.5 mg IH TID PRN #30 neb 01/23/20 Unknown Rx NEBS] Albuterol Sulfate [Proventil Hfa] 2 puff IH Q4HR PRN #1 hfa.aer.ad 01/23/20 Unknown Rx Budesonide/Formoterol Fumarate 2 inhalation IH BID #1 hfa.aer.ad 01/23/20 Unknown Rx [Symbicort 160-4.5 Mcg Inhaler] Elviteg/Cob/Emtri/Tenof Alafen 1 each PO DAILY #30 tablet 01/23/20 Unknown Rx [Genvoya Tablet] Furosemide [Lasix TAB] 40 mg PO QAM #30 tablet 01/23/20 Unknown Rx Genvoya Tablet 1 tab PO DAILY #90 tab 01/23/20 Unknown Rx Insulin NPH/Regular [NovoLIN 70/30] 30 unit SUB-Q BIDDIAB #2 vial 01/23/20 Unknown Rx Pantoprazole [Protonix TAB] 40 mg PO QDAY #30 tablet 01/23/20 Unknown Rx Potassium Chloride [K-Dur] 10 meq PO QDAY #30 tablet 01/23/20 Unknown Rx QUEtiapine [SEROquel] 200 mg PO QHS #90 tablet 01/23/20 Unknown Rx Tiotropium [place] [Spiriva 2 inhalation IH DAILY #1 mist.inhal 01/23/20 Unknown Rx Respimat] amLODIPine 5 mg PO QDAY #30 tablet 01/23/20 Unknown Rx guaiFENesin ER [Mucinex ER] 600 mg PO BID #10 tablet 01/23/20 Unknown Rx predniSONE [Deltasone] 40 mg PO QDAY #7 tablet 01/23/20 Unknown Rx traMADoL [Ultram 50 MG tab] 50 mg PO Q6H PRN #14 tablet 01/23/20 Unknown Rx Prednisone [predniSONE 10 mg 10 mg PO .TAPER #1 tab.ds.pk 02/26/20 Unknown Rx (6-Day Pack, 21 Tabs)] guaiFENesin/CODEINE [Robitussin AC] 10 ml PO TID PRN #100 ml 02/26/20 Unknown Rx levoFLOXacin [Levaquin TAB] 500 mg PO QDAY #7 tablet 02/26/20 Unknown Rx Albuterol Mdi (or & Nicu Only) 2 puff IH Q4HR PRN #1 inhalation 04/03/20 Unknown Rx [ProAir HFA Inhaler] Azithromycin [Zithromax Z-LUAN] 250 mg PO DAILY #6 tablet 04/03/20 Unknown Rx Benzonatate [Tessalon Perles] 100 mg PO Q8HR PRN #20 capsule 04/03/20 Unknown Rx predniSONE [Deltasone] 20 mg PO DAILY #15 tablet 04/03/20 Unknown Rx ED Physical Exam - General Limitations: No Limitations General appearance: alert, in no apparent distress - Head Head exam: Present: atraumatic, normocephalic, normal inspection - Eye Eye exam: Present: normal appearance, PERRL - ENT ENT exam: Present: normal exam, normal orophraynx, mucous membranes moist - Neck Neck exam: Present: normal inspection, full ROM. Absent: tenderness, mening ismus - Respiratory Respiratory exam: Present: wheezes, rhonchi. Absent: respiratory distress, rales, accessory muscle use, decreased breath sounds, prolonged expiratory - Cardiovascular Cardiovascular Exam: Present: regular rate, normal rhythm, normal heart sounds - GI/Abdominal GI/Abdominal exam: Present: soft, normal bowel sounds. Absent: distended, tenderness, guarding, rebound, rigid, organomegaly, mass, bruit, pulsatile mass, hernia - Extremities Exam Extremities exam: Present: normal inspection, full ROM, normal capillary refill. Absent: tenderness, pedal edema, calf tenderness - Back Exam Back exam: Present: normal inspection, full ROM. Absent: CVA tenderness (R), CVA tenderness (L) - Neurological Exam Neurological exam: Present: alert, oriented X3, CN II-XII intact. Absent: motor sensory deficit - Psychiatric Psychiatric exam: Present: normal mood - Skin Skin exam: Present: warm, intact, normal color ED Course Vital Signs 04/17/21 07:51 Temperature 98.6 F Pulse Rate 117 H Respiratory 17 Rate Blood Pressure 153/97 O2 Sat by Pulse 96 Oximetry ED Medical Decision Making - Lab Data Result diagrams: 04/17/21 08:03 04/17/21 08:03 - EKG Data -: EKG Interpreted by Me EKG shows normal: sinus rhythm Rate: tachycardia - EKG Data Interpretation: no acute changes - Radiology Data Radiology results: report reviewed - Medical Decision Making Patient is 65 years old female with history of COPD and congestive heart failure. Patient presented to the ER complaining of 3-day history of shortness of breath, cough, productive with greenish sputum. Patient stated that she has some chills but no fever. Patient also complaining of nausea but no vomiting. Patient is also complaining of headache on and off since the beginning of the symptoms. Patient denied any sick contact. Patient is not vaccinated against COVID-19 yet. EKG shows sinus tachycardia. Chest x-ray is unremarkable. Labs reviewed and is unremarkable including a negative troponin x2. Patient received albuterol, Atrovent and Solu-Medrol. Patient also received morphine for the headache. Patient stated that she is feeling much better. Patient evaluated by me several times and remained stable in the ER with stable vital sign with an oxygen saturation of 100% on room air. Patient advised to follow-up with her primary care physician in the next 2 to 3 days and to return to the ER if she develop any new symptoms. Critical care attestation.: If time is entered above; I have spent that time in minutes in the direct care of this critically ill patient, excluding procedure time. ED Disposition Clinical Impression: COPD exacerbation, Headache Disposition: 01 HOME / SELF CARE / HOMELESS Is pt being admited?: No Condition: Stable Instructions: Chronic Obstructive Pulmonary Disease (ED), Chronic Obstructive Pulmonary Disease Referrals: PRIMARY CARE, [Primary Care Provider] - 3-5 Days
--- NOTE | 2021-04-17 11:20 | Electrocardiograph Report ---
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
[2021-04-17 22:48] VITALS: BP 141/76
== END 2021-04-17 22:45 | disposition home or self-care (01) ==
LOC: ED 07:42
DX: J44.1 Chronic obstructive pulmonary disease with (acute) exacerbation (principal); R51.9 Headache, unspecified; I11.0 Hypertensive heart disease with heart failure; E11.8 Type 2 diabetes mellitus with unspecified complications; R56.9 Unspecified convulsions; I26.99 Other pulmonary embolism without acute cor pulmonale; F31.9 Bipolar disorder, unspecified; F20.9 Schizophrenia, unspecified; B20 Human immunodeficiency virus [HIV] disease; M48.00 Spinal stenosis, site unspecified; Z98.890 Other specified postprocedural states; Z88.1 Allergy status to other antibiotic agents; Z88.6 Allergy status to analgesic agent; Z91.013 Allergy to seafood
CPT/HCPCS: 36415; 71046; 80053; 83690; 83880; 84484; 85025; 85379; 93005; 94640; 96374; 96375; 99284; J1100; J2270; J2405; 94644

== ENCOUNTER 2021-11-28 13:09 | Observation (INO) | payer MEDICARE ==
[2021-11-28] MEDS ORDERED: MORPHINE 2 MG/1 ML INJ IV ONE (13:30)
[2021-11-28] MEDS ORDERED: NITROGLYCERIN 0.4 MG TAB SUBL SL PRN (13:31)
[2021-11-28] MEDS ORDERED: NITROGLYCERIN 0.4 MG TAB SUBL SL ONE (13:31)
--- NOTE | 2021-11-28 13:36 | Emergency Department Report ---
ED Chest Pain HPI - General Chief Complaint: Chest Pain Stated Complaint: CHEST PAIN/CARL Time Seen by Provider: 11/28/21 13:27 Source: patient Mode of arrival: Stretcher Limitations: No Limitations - History of Present Illness Initial Comments: 66-year-old morbidly obese female with a history of CHF and hypertension who now presents with chest pain associated with shortness of breath that started about couple of days ago progressively getting worse. Patient denies any cough, fever or palpitation. Patient described the pain as a pressure on the left side of her chest. No radiation. Patient also reports some shortness of breath. She mentioned that she put on some weight. No other modifying or positive factors reported. - Related Data Previous Rx's Medication Instructions Recorded Last Taken Type Glycerin/ Witch Lise Pad [Tucks 1 each TP PRN PRN #1 box 12/21/19 Unknown Rx Pad] ALBUTEROL NEB's [Proventil 0.083% 2.5 mg IH TID PRN #30 neb 01/23/20 Unknown Rx NEBS] Albuterol Sulfate [Proventil Hfa] 2 puff IH Q4HR PRN #1 hfa.aer.ad 01/23/20 Unknown Rx Budesonide/Formoterol Fumarate 2 inhalation IH BID #1 hfa.aer.ad 01/23/20 Unknown Rx [Symbicort 160-4.5 Mcg Inhaler] Elviteg/Cob/Emtri/Tenof Alafen 1 each PO DAILY #30 tablet 01/23/20 Unknown Rx [Genvoya Tablet] Furosemide [Lasix TAB] 40 mg PO QAM #30 tablet 01/23/20 Unknown Rx Genvoya Tablet 1 tab PO DAILY #90 tab 01/23/20 Unknown Rx Insulin NPH/Regular [NovoLIN 70/30] 30 unit SUB-Q BIDDIAB #2 vial 01/23/20 Unknown Rx Pantoprazole [Protonix TAB] 40 mg PO QDAY #30 tablet 01/23/20 Unknown Rx Potassium Chloride [K-Dur] 10 meq PO QDAY #30 tablet 01/23/20 Unknown Rx QUEtiapine [SEROquel] 200 mg PO QHS #90 tablet 01/23/20 Unknown Rx Tiotropium [place] [Spiriva 2 inhalation IH DAILY #1 mist.inhal 01/23/20 Unknown Rx Respimat] amLODIPine 5 mg PO QDAY #30 tablet 01/23/20 Unknown Rx guaiFENesin ER [Mucinex ER] 600 mg PO BID #10 tablet 01/23/20 Unknown Rx predniSONE [Deltasone] 40 mg PO QDAY #7 tablet 01/23/20 Unknown Rx traMADoL [Ultram 50 MG tab] 50 mg PO Q6H PRN #14 tablet 01/23/20 Unknown Rx Prednisone [predniSONE 10 mg 10 mg PO .TAPER #1 tab.ds.pk 02/26/20 Unknown Rx (6-Day Pack, 21 Tabs)] guaiFENesin/CODEINE [Robitussin AC] 10 ml PO TID PRN #100 ml 02/26/20 Unknown Rx levoFLOXacin [Levaquin TAB] 500 mg PO QDAY #7 tablet 02/26/20 Unknown Rx Albuterol Mdi (or & Nicu Only) 2 puff IH Q4HR PRN #1 inhalation 04/03/20 Unknown Rx [ProAir HFA Inhaler] Azithromycin [Zithromax Z-LUAN] 250 mg PO DAILY #6 tablet 04/03/20 Unknown Rx Benzonatate [Tessalon Perles] 100 mg PO Q8HR PRN #20 capsule 04/03/20 Unknown Rx predniSONE [Deltasone] 20 mg PO DAILY #15 tablet 04/03/20 Unknown Rx Ondansetron [Zofran Odt] 4 mg PO Q8HR PRN #14 tab.rapdis 04/17/21 Unknown Rx Prednisone [predniSONE 10 mg 10 mg PO .TAPER #1 tab.ds.pk 04/17/21 Unknown Rx (6-Day Pack, 21 Tabs)] traMADoL [Ultram] 50 mg PO Q6HR PRN #14 tablet 04/17/21 Unknown Rx Allergies Allergy/AdvReac Type Severity Reaction Status Date / Time shellfish derived Allergy Severe Shortness Verified 04/17/21 07:51 of Breath ibuprofen [From Motrin] Allergy Mild Shortness Verified 04/17/21 07:51 of Breath aspirin Allergy Itching Verified 04/17/21 08:01 tetracycline Allergy Shortness Verified 04/17/21 07:51 of Breath Heart Score - HEART Score History: Moderately suspicious EKG: Normal Age: 45-65 Risk factors: 1-2 risk factors Troponin: < normal limit HEART Score: 3 - EKG Read Time Time EKG Completed: 23:00 EKG Read Time: 01:25 - Critical Actions Critical Actions: 0-3 pts:0.9-1.7%risk of adverse cardiac event.Candidate for discharge ED Review of Systems ROS: Stated complaint: CHEST PAIN/CARL Other details as noted in HPI Comment: All other systems reviewed and negative Respiratory: shortness of breath. denies: wheezing Cardiovascular: chest pain, dyspnea on exertion. denies: edema Endocrine: denies: excessive sweating, intolerance to cold, intolerance to heat Gastrointestinal: denies: abdominal pain ED Past Medical Hx - Past Medical History Previous Medical History?: Yes Hx Hypertension: Yes Hx Congestive Heart Failure: Yes Hx Diabetes: Yes Hx Deep Vein Thrombosis: No Hx Pulmonary Embolism: Yes Hx GERD: No Hx Renal Disease: No Hx Arthritis: No Hx Seizures: Yes Hx Kidney Stones: No Hx Psychiatric Treatment: Yes (bipolar disorder; schziphornia) Hx Asthma: No Hx COPD: No Hx Tuberculosis: No Hx Dementia: No Hx HIV: Yes Additional medical history: CDIFF, spinal stenosis - Surgical History Hx Open Heart Surgery: No Hx Pacemaker: No Hx Internal Defibrillator: No Hx Cholecystectomy: No Hx Appendectomy: No Hx Breast Surgery: No Additional Surgical History: Hysterectomy - Social History Smoking Status: Never Smoker - Medications Home Medications: Home Medications Medication Instructions Recorded Confirmed Last Taken Type Glycerin/ Witch Lise Pad [Tucks 1 each TP PRN PRN #1 box 12/21/19 01/22/20 Unknown Rx Pad] ALBUTEROL NEB's [Proventil 0.083% 2.5 mg IH TID PRN #30 neb 01/23/20 Unknown Rx NEBS] Albuterol Sulfate [Proventil Hfa] 2 puff IH Q4HR PRN #1 hfa.aer.ad 01/23/20 Unknown Rx Budesonide/Formoterol Fumarate 2 inhalation IH BID #1 hfa.aer.ad 01/23/20 Unknown Rx [Symbicort 160-4.5 Mcg Inhaler] Elviteg/Cob/Emtri/Tenof Alafen 1 each PO DAILY #30 tablet 01/23/20 Unknown Rx [Genvoya Tablet] Furosemide [Lasix TAB] 40 mg PO QAM #30 tablet 01/23/20 Unknown Rx Genvoya Tablet 1 tab PO DAILY #90 tab 01/23/20 Unknown Rx Insulin NPH/Regular [NovoLIN 70/30] 30 unit SUB-Q BIDDIAB #2 vial 01/23/20 Unknown Rx Pantoprazole [Protonix TAB] 40 mg PO QDAY #30 tablet 01/23/20 Unknown Rx Potassium Chloride [K-Dur] 10 meq PO QDAY #30 tablet 01/23/20 Unknown Rx QUEtiapine [SEROquel] 200 mg PO QHS #90 tablet 01/23/20 Unknown Rx Tiotropium [place] [Spiriva 2 inhalation IH DAILY #1 mist.inhal 01/23/20 Unknown Rx Respimat] amLODIPine 5 mg PO QDAY #30 tablet 01/23/20 Unknown Rx guaiFENesin ER [Mucinex ER] 600 mg PO BID #10 tablet 01/23/20 Unknown Rx predniSONE [Deltasone] 40 mg PO QDAY #7 tablet 01/23/20 Unknown Rx traMADoL [Ultram 50 MG tab] 50 mg PO Q6H PRN #14 tablet 01/23/20 Unknown Rx Prednisone [predniSONE 10 mg 10 mg PO .TAPER #1 tab.ds.pk 02/26/20 Unknown Rx (6-Day Pack, 21 Tabs)] guaiFENesin/CODEINE [Robitussin AC] 10 ml PO TID PRN #100 ml 02/26/20 Unknown Rx levoFLOXacin [Levaquin TAB] 500 mg PO QDAY #7 tablet 02/26/20 Unknown Rx Albuterol Mdi (or & Nicu Only) 2 puff IH Q4HR PRN #1 inhalation 04/03/20 Unknown Rx [ProAir HFA Inhaler] Azithromycin [Zithromax Z-LUAN] 250 mg PO DAILY #6 tablet 04/03/20 Unknown Rx Benzonatate [Tessalon Perles] 100 mg PO Q8HR PRN #20 capsule 04/03/20 Unknown Rx predniSONE [Deltasone] 20 mg PO DAILY #15 tablet 04/03/20 Unknown Rx Ondansetron [Zofran Odt] 4 mg PO Q8HR PRN #14 tab.rapdis 04/17/21 Unknown Rx Prednisone [predniSONE 10 mg 10 mg PO .TAPER #1 tab.ds.pk 04/17/21 Unknown Rx (6-Day Pack, 21 Tabs)] traMADoL [Ultram] 50 mg PO Q6HR PRN #14 tablet 04/17/21 Unknown Rx ED Physical Exam - General Limitations: No Limitations General appearance: alert - Head Head exam: Present: normal inspection - Eye Eye exam: Present: normal appearance Pupils: Present: normal accommodation - ENT ENT exam: Present: normal exam, normal orophraynx, mucous membranes moist - Neck Neck exam: Present: normal inspection, full ROM - Respiratory Respiratory exam: Present: normal lung sounds bilaterally. Absent: respiratory distress, wheezes - Cardiovascular Cardiovascular Exam: Present: regular rate, normal rhythm, normal heart sounds - GI/Abdominal GI/Abdominal exam: Present: soft, distended. Absent: tenderness, guarding, rebound - Extremities Exam Extremities exam: Present: normal inspection, full ROM, normal capillary refill - Back Exam Back exam: Present: normal inspection, full ROM. Absent: tenderness - Neurological Exam Neurological exam: Present: alert - Psychiatric Psychiatric exam: Present: normal affect, normal mood - Skin Skin exam: Present: warm ED Course Vital Signs 11/28/21 11/28/21 11/28/21 13:15 13:40 13:50 Temperature 97.8 F Pulse Rate 94 H 94 H 90 Pulse Rate [ Anterior Bilateral Throughout] Pulse Rate [ Right Radial] Respiratory 20 17 17 Rate Respiratory Rate [Anterior Bilateral Throughout] Blood Pressure 120/83 120/83 Blood Pressure 120/83 [Right] O2 Sat by Pulse 97 95 95 Oximetry 11/28/21 11/28/21 11/28/21 14:00 14:10 14:20 Temperature Pulse Rate 89 102 H 91 H Pulse Rate [ Anterior Bilateral Throughout] Pulse Rate [ Right Radial] Respiratory 13 15 13 Rate Respiratory Rate [Anterior Bilateral Throughout] Blood Pressure 120/83 120/83 120/83 Blood Pressure [Right] O2 Sat by Pulse 96 95 96 Oximetry 11/28/21 11/28/21 11/28/21 14:30 14:40 14:50 Temperature Pulse Rate 107 H 94 H 90 Pulse Rate [ Anterior Bilateral Throughout] Pulse Rate [ Right Radial] Respiratory 13 20 13 Rate Respiratory Rate [Anterior Bilateral Throughout] Blood Pressure 120/83 120/83 120/83 Blood Pressure [Right] O2 Sat by Pulse 96 95 96 Oximetry 11/28/21 11/28/21 11/28/21 15:00 15:10 15:20 Temperature Pulse Rate 94 H 109 H 91 H Pulse Rate [ Anterior Bilateral Throughout] Pulse Rate [ Right Radial] Respiratory 17 21 15 Rate Respiratory Rate [Anterior Bilateral Throughout] Blood Pressure 120/83 120/83 120/83 Blood Pressure [Right] O2 Sat by Pulse 97 95 98 Oximetry 11/28/21 11/28/21 11/28/21 15:30 15:40 15:47 Temperature Pulse Rate 95 H 93 H 80 Pulse Rate [ Anterior Bilateral Throughout] Pulse Rate [ Right Radial] Respiratory 12 12 15 Rate Respiratory Rate [Anterior Bilateral Throughout] Blood Pressure 120/83 120/83 Blood Pressure 152/88 [Right] O2 Sat by Pulse 97 97 95 Oximetry 11/28/21 11/28/21 11/28/21 15:50 16:00 16:10 Temperature Pulse Rate 93 H 90 96 H Pulse Rate [ Anterior Bilateral Throughout] Pulse Rate [ Right Radial] Respiratory 14 13 16 Rate Respiratory Rate [Anterior Bilateral Throughout] Blood Pressure 152/88 157/87 157/87 Blood Pressure [Right] O2 Sat by Pulse 96 95 95 Oximetry 11/28/21 11/28/21 11/28/21 16:20 16:30 16:40 Temperature Pulse Rate 88 89 96 H Pulse Rate [ Anterior Bilateral Throughout] Pulse Rate [ Right Radial] Respiratory 18 13 16 Rate Respiratory Rate [Anterior Bilateral Throughout] Blood Pressure 157/87 157/87 157/87 Blood Pressure [Right] O2 Sat by Pulse 97 96 96 Oximetry 11/28/21 11/28/21 11/28/21 16:50 17:00 17:10 Temperature Pulse Rate 85 91 H 93 H Pulse Rate [ Anterior Bilateral Throughout] Pulse Rate [ Right Radial] Respiratory 12 16 14 Rate Respiratory Rate [Anterior Bilateral Throughout] Blood Pressure 157/87 142/100 142/100 Blood Pressure [Right] O2 Sat by Pulse 95 97 96 Oximetry 11/28/21 11/28/21 11/28/21 17:20 17:30 17:40 Temperature Pulse Rate 92 H 88 89 Pulse Rate [ Anterior Bilateral Throughout] Pulse Rate [ Right Radial] Respiratory 13 12 15 Rate Respiratory Rate [Anterior Bilateral Throughout] Blood Pressure 142/100 142/100 142/100 Blood Pressure [Right] O2 Sat by Pulse 95 97 97 Oximetry 11/28/21 11/28/21 11/28/21 17:50 18:00 18:10 Temperature Pulse Rate 92 H 90 88 Pulse Rate [ Anterior Bilateral Throughout] Pulse Rate [ Right Radial] Respiratory 20 16 14 Rate Respiratory Rate [Anterior Bilateral Throughout] Blood Pressure 142/100 146/92 146/92 Blood Pressure [Right] O2 Sat by Pulse 97 99 98 Oximetry 11/28/21 11/28/21 11/28/21 18:20 18:30 18:40 Temperature Pulse Rate 94 H 91 H 87 Pulse Rate [ Anterior Bilateral Throughout] Pulse Rate [ Right Radial] Respiratory 19 19 15 Rate Respiratory Rate [Anterior Bilateral Throughout] Blood Pressure 146/92 146/92 146/92 Blood Pressure [Right] O2 Sat by Pulse 94 98 98 Oximetry 11/28/21 11/28/21 11/28/21 18:50 19:00 19:10 Temperature Pulse Rate 88 98 H 89 Pulse Rate [ Anterior Bilateral Throughout] Pulse Rate [ Right Radial] Respiratory 13 27 H 16 Rate Respiratory Rate [Anterior Bilateral Throughout] Blood Pressure 146/92 149/85 149/85 Blood Pressure [Right] O2 Sat by Pulse 97 97 Oximetry 11/28/21 11/28/21 11/28/21 19:20 19:30 19:40 Temperature Pulse Rate 88 89 91 H Pulse Rate [ Anterior Bilateral Throughout] Pulse Rate [ Right Radial] Respiratory 16 15 28 H Rate Respiratory Rate [Anterior Bilateral Throughout] Blood Pressure 149/85 149/85 149/85 Blood Pressure [Right] O2 Sat by Pulse 98 98 99 Oximetry 11/28/21 11/28/21 11/28/21 19:50 19:54 20:01 Temperature Pulse Rate 83 86 95 H Pulse Rate [ Anterior Bilateral Throughout] Pulse Rate [ Right Radial] Respiratory 14 20 Rate Respiratory Rate [Anterior Bilateral Throughout] Blood Pressure 149/85 142/118 142/100 Blood Pressure [Right] O2 Sat by Pulse 97 95 Oximetry 11/28/21 11/28/21 11/28/21 20:11 20:14 20:21 Temperature 97.9 F Pulse Rate 87 86 88 Pulse Rate [ Anterior Bilateral Throughout] Pulse Rate [ Right Radial] Respiratory 13 15 16 Rate Respiratory Rate [Anterior Bilateral Throughout] Blood Pressure 146/92 142/118 146/92 Blood Pressure 142/118 [Right] O2 Sat by Pulse 98 99 99 Oximetry 11/28/21 11/28/21 11/28/21 20:31 20:41 20:51 Temperature Pulse Rate 88 94 H 87 Pulse Rate [ Anterior Bilateral Throughout] Pulse Rate [ Right Radial] Respiratory 14 19 20 Rate Respiratory Rate [Anterior Bilateral Throughout] Blood Pressure 146/92 146/92 146/92 Blood Pressure [Right] O2 Sat by Pulse 98 99 96 Oximetry 11/28/21 11/28/21 11/28/21 20:59 21:00 21:01 Temperature Pulse Rate 87 Pulse Rate [ 90 Anterior Bilateral Throughout] Pulse Rate [ 86 Right Radial] Respiratory 18 18 Rate Respiratory 20 Rate [Anterior Bilateral Throughout] Blood Pressure 144/78 Blood Pressure [Right] O2 Sat by Pulse 99 99 Oximetry 11/28/21 11/28/21 11/28/21 21:11 21:21 21:31 Temperature Pulse Rate 91 H 90 99 H Pulse Rate [ Anterior Bilateral Throughout] Pulse Rate [ Right Radial] Respiratory 16 16 15 Rate Respiratory Rate [Anterior Bilateral Throughout] Blood Pressure 144/78 144/78 144/78 Blood Pressure [Right] O2 Sat by Pulse 97 96 97 Oximetry 11/28/21 11/28/21 21:41 22:00 Temperature Pulse Rate 89 90 Pulse Rate [ Anterior Bilateral Throughout] Pulse Rate [ Right Radial] Respiratory 16 Rate Respiratory Rate [Anterior Bilateral Throughout] Blood Pressure 144/78 Blood Pressure [Right] O2 Sat by Pulse 96 Oximetry - Reevaluation(s) Reevaluation #1: 11/28/21 13:37 With chest pain and shortness of breath with history of CHF--we will go ahead and rule out cardiac with troponin, and chest x-ray with BMP and routine labs JHONY score - Jhony Score Age > 65: (0) No Aspirin use within the Past 7 Days: (0) No 3 or more CAD Risk Factors: (1) Yes 2 or more Angina events in past 24 hrs: (0) No Known CAD with more than 50% Stenosis: (1) Yes Elevated Cardiac Markers: (0) No ST Deviation Greater than 0.5mm: (0) No JHONY Score: 2 ED Medical Decision Making - Lab Data Result diagrams: 11/29/21 06:49 11/29/21 06:49 - EKG Data EKG shows normal: sinus rhythm (95 bpm) Rate: normal - EKG Data Interpretation: no acute changes, normal EKG - Medical Decision Making Here with chest pain and shortness of breath with history of CAD--considering this patient past medical history we will go ahead and rule out any cardiac-- - Differential Diagnosis Acute coronary syndrome, pneumonia, CHF exacerbation Critical care attestation.: If time is entered above; I have spent that time in minutes in the direct care of this critically ill patient, excluding procedure time. ED Disposition Clinical Impression: Chest pain Qualifiers: Chest pain type: unspecified Qualified Code(s): R07.9 - Chest pain, unspecified Dyspnea Qualifiers: Dyspnea type: dyspnea on exertion Qualified Code(s): R06.00 - Dyspnea, unspecified Disposition: 09 ADMITTED INPATIENT Is pt being admited?: Yes Does the pt Need Aspirin: No Condition: Stable
[2021-11-28] MEDS ORDERED: ONDANSETRON 4 MG/2 ML INJ ONE (14:21)
[2021-11-28 14:56] LABS: Basophils % (Auto) 0.4 % (0.0-1.8); Eosinophils # (Auto) 0.1 K/mm3 (0.0-0.4); Eosinophils % (Auto) 1.8 % (0.0-4.3); Hematocrit 36.8 % (30.3-42.9); Hemoglobin 12.3 gm/dl (10.1-14.3); Lymphocytes # (Auto) 2.2 K/mm3 (1.2-5.4); Lymphocytes % (Auto) 40.6 % (13.4-35.0); Mean Corpuscular HGB Conc 33 % (30-34); Mean Corpuscular Volume 110 fl (79-97); Monocytes # (Auto) 0.2 K/mm3 (0.0-0.8); Monocytes % (Auto) 4.6 % (0.0-7.3); Platelet Count 200 K/mm3 (140-440); Red Blood Count 3.36 M/mm3 (3.65-5.03); Red Cell Distribution Width 14.3 % (13.2-15.2)
[2021-11-28 15:11] LABS: Albumin 3.9 g/dL (3.9-5); BUN/Creatinine Ratio 19; Blood Urea Nitrogen 15 mg/dL (7-17); Calcium 9.3 mg/dL (8.4-10.2); Hemolysis Index 3
[2021-11-28 15:14] LABS: Alanine Aminotransferase < 5 units/L (7-56)
--- NOTE | 2021-11-28 15:56 | XRay Report ---
CHEST 1 VIEW INDICATION: chest pain/chf. COMPARISON: 04/17/2021 FINDINGS: SUPPORT DEVICES: None. HEART: Within normal limits. LUNGS/PLEURA: Minimal right basilar atelectasis. Otherwise clear lungs. ADDITIONAL FINDINGS: None. IMPRESSION: 1. No acute findings. Signer Name: Nirmal Ruiz MD Signed: 11/28/2021 3:52 PM Workstation Name: [email or web address]
[2021-11-28] MEDS ORDERED: MORPHINE 2 MG/1 ML INJ IV PRN (18:31)
[2021-11-28] MEDS ORDERED: ACETAMINOPHEN 325 MG TAB PO PRN ×2 (18:31→18:52)
[2021-11-28] MEDS ORDERED: ONDANSETRON 4 MG/2 ML INJ IV PRN ×2 (18:31→18:52)
[2021-11-28] MEDS ORDERED: traMADol 50 MG TAB PO PRN (18:40)
[2021-11-28] MEDS ORDERED: BENZONATATE 100 MG CAP PO PRN (18:40)
[2021-11-28] MEDS ORDERED: ONDANSETRON 4 MG ODT TAB PO PRN (18:40)
[2021-11-28] MEDS ORDERED: WITCH HAZEL/ GLYCERIN PAD TP PRN (18:40)
[2021-11-28] MEDS ORDERED: ALBUTEROL 8.5 GM MDI INHALATION IH PRN (18:40)
--- NOTE | 2021-11-28 18:40 | History and Physical Report ---
History of Present Illness Date of examination: 11/28/21 Date of admission: 11/28/2021 Chief complaint: Chest pain for 1 day History of present illness: 66-year-old morbidly obese female with a history of CHF and hypertension who now presents with chest pain associated with shortness of breath that started about couple of days ago progressively getting worse. Patient denies any cough, fever or palpitation. Patient described the pain as a pressure on the left side of her chest. No radiation. Patient also reports some shortness of breath. She mentioned that she put on some weight. No other modifying or positive factors reported. Heart Score - HEART Score History: Moderately suspicious EKG: Normal Age: 45-65 Risk factors: 1-2 risk factors - EKG Read Time Time EKG Completed: 23:00 EKG Read Time: 01:25 - Past Medical History --Hypertension: Yes --Congestive Heart Failure: Yes --Diabetes: Yes --Pulmonary Embolism: Yes --Seizures: Yes --Psychiatric Treatment: Yes (bipolar disorder; schziphornia) --HIV: Yes --Additional medical history: CDIFF, spinal stenosis - Surgical History --Hysterectomy - Social History --Smoking Status: Never Smoker Review of Systems ROS: Stated complaint: CHEST PAIN/CARL Other details as noted in HPI Comment: All other systems reviewed and negative Respiratory: shortness of breath. denies: wheezing Cardiovascular: chest pain, dyspnea on exertion. denies: edema Endocrine: denies: excessive sweating, intolerance to cold, intolerance to heat Gastrointestinal: denies: abdominal pain Medications and Allergies Allergies Allergy/AdvReac Type Severity Reaction Status Date / Time shellfish derived Allergy Severe Shortness Verified 04/17/21 07:51 of Breath ibuprofen [From Motrin] Allergy Mild Shortness Verified 04/17/21 07:51 of Breath aspirin Allergy Itching Verified 04/17/21 08:01 tetracycline Allergy Shortness Verified 04/17/21 07:51 of Breath Home Medications Medication Instructions Recorded Confirmed Last Taken Type Glycerin/ Witch Lise Pad [Tucks 1 each TP PRN PRN #1 box 12/21/19 01/22/20 Unknown Rx Pad] ALBUTEROL NEB's [Proventil 0.083% 2.5 mg IH TID PRN #30 neb 01/23/20 Unknown Rx NEBS] Albuterol Sulfate [Proventil Hfa] 2 puff IH Q4HR PRN #1 hfa.aer.ad 01/23/20 Unknown Rx Budesonide/Formoterol Fumarate 2 inhalation IH BID #1 hfa.aer.ad 01/23/20 Unknown Rx [Symbicort 160-4.5 Mcg Inhaler] Elviteg/Cob/Emtri/Tenof Alafen 1 each PO DAILY #30 tablet 01/23/20 Unknown Rx [Genvoya Tablet] Furosemide [Lasix TAB] 40 mg PO QAM #30 tablet 01/23/20 Unknown Rx Genvoya Tablet 1 tab PO DAILY #90 tab 01/23/20 Unknown Rx Insulin NPH/Regular [NovoLIN 70/30] 30 unit SUB-Q BIDDIAB #2 vial 01/23/20 Unknown Rx Pantoprazole [Protonix TAB] 40 mg PO QDAY #30 tablet 01/23/20 Unknown Rx Potassium Chloride [K-Dur] 10 meq PO QDAY #30 tablet 01/23/20 Unknown Rx QUEtiapine [SEROquel] 200 mg PO QHS #90 tablet 01/23/20 Unknown Rx Tiotropium [place] [Spiriva 2 inhalation IH DAILY #1 mist.inhal 01/23/20 Unknown Rx Respimat] amLODIPine 5 mg PO QDAY #30 tablet 01/23/20 Unknown Rx traMADoL [Ultram 50 MG tab] 50 mg PO Q6H PRN #14 tablet 01/23/20 Unknown Rx Albuterol Mdi (or & Nicu Only) 2 puff IH Q4HR PRN #1 inhalation 04/03/20 Unknown Rx [ProAir HFA Inhaler] Azithromycin [Zithromax Z-LUAN] 250 mg PO DAILY #6 tablet 04/03/20 Unknown Rx Benzonatate [Tessalon Perles] 100 mg PO Q8HR PRN #20 capsule 04/03/20 Unknown Rx predniSONE [Deltasone] 20 mg PO DAILY #15 tablet 04/03/20 Unknown Rx Ondansetron [Zofran Odt] 4 mg PO Q8HR PRN #14 tab.rapdis 04/17/21 Unknown Rx traMADoL [Ultram 50 MG tab] 50 mg PO Q6HR PRN #20 tablet 11/29/21 Unknown Rx Active Meds: Active Medications Nitroglycerin (Nitroglycerin 0.4 Mg Tab Subl) 0.4 mg SL .Q5MIN PRN PRN Reason: Chest Pain Exam - Constitutional Vitals: Temp Pulse Resp BP Pulse Ox 97.8 F 80 15 152/88 95 11/28/21 13:15 11/28/21 15:47 11/28/21 15:47 11/28/21 15:47 11/28/21 15:47 General appearance: Present: no acute distress, well-nourished - EENT Eyes: Present: PERRL ENT: hearing intact, clear oral mucosa - Neck Neck: Present: supple, normal ROM - Respiratory Respiratory effort: normal Respiratory: bilateral: CTA Details: Chest wall tenderness present. - Cardiovascular Heart rate: 78 Rhythm: regular Heart Sounds: Present: S1 & S2. Absent: rub, click - Extremities Extremities: no ischemia, pulses intact, pulses symmetrical, No edema Peripheral Pulses: within normal limits - Abdominal General gastrointestinal: Present: soft, non-tender, non-distended, normal bowel sounds Female genitourinary: Present: normal - Integumentary Integumentary: Present: clear, warm, dry - Musculoskeletal Musculoskeletal: gait normal, strength equal bilaterally - Psychiatric Psychiatric: appropriate mood/affect, intact judgment & insight - Neurologic Neurologic: CNII-XII intact, moves all extremities - Allied Health Allied health notes reviewed: nursing, case management HEART Score - HEART Score EKG: Normal Age: 45-65 Risk factors: 1-2 risk factors Troponin: Troponin T < 0.010 ng/mL (0.00-0.029) 11/28/21 14:29 Results - Labs CBC & Chem 7: 11/29/21 06:49 11/29/21 06:49 Labs: Laboratory Last Values WBC 5.4 K/mm3 (4.5-11.0) 11/28/21 14:29 RBC 3.36 M/mm3 (3.65-5.03) L 11/28/21 14:29 Hgb 12.3 gm/dl (10.1-14.3) 11/28/21 14:29 Hct 36.8 % (30.3-42.9) 11/28/21 14:29 MCV 110 fl (79-97) H 11/28/21 14:29 MCH 37 pg (28-32) H 11/28/21 14:29 MCHC 33 % (30-34) 11/28/21 14:29 RDW 14.3 % (13.2-15.2) 11/28/21 14:29 Plt Count 200 K/mm3 (140-440) 11/28/21 14:29 Lymph % (Auto) 40.6 % (13.4-35.0) H 11/28/21 14:29 [place] % (Auto) 4.6 % (0.0-7.3) 11/28/21 14:29 Eos % (Auto) 1.8 % (0.0-4.3) 11/28/21 14:29 Baso % (Auto) 0.4 % (0.0-1.8) 11/28/21 14:29 Lymph # (Auto) 2.2 K/mm3 (1.2-5.4) 11/28/21 14:29 [place] # (Auto) 0.2 K/mm3 (0.0-0.8) 11/28/21 14:29 Eos # (Auto) 0.1 K/mm3 (0.0-0.4) 11/28/21 14:29 Baso # (Auto) 0.0 K/mm3 (0.0-0.1) 11/28/21 14:29 Seg Neutrophils % 52.6 % (40.0-70.0) 11/28/21 14:29 Seg Neutrophils # 2.9 K/mm3 (1.8-7.7) 11/28/21 14:29 Sodium 141 mmol/L (137-145) 11/28/21 14:29 Potassium 3.9 mmol/L (3.6-5.0) 11/28/21 14:29 Chloride 105.2 mmol/L (98-107) 11/28/21 14:29 Carbon Dioxide 23 mmol/L (22-30) 11/28/21 14:29 Anion Gap 17 mmol/L 11/28/21 14:29 BUN 15 mg/dL (7-17) 11/28/21 14:29 Creatinine 0.8 mg/dL (0.6-1.2) 11/28/21 14:29 Estimated GFR > 60 ml/min 11/28/21 14:29 BUN/Creatinine Ratio 19 % 11/28/21 14:29 Glucose 181 mg/dL (65-100) H 11/28/21 14:29 Calcium 9.3 mg/dL (8.4-10.2) 11/28/21 14:29 Total Bilirubin 0.20 mg/dL (0.1-1.2) 11/28/21 14:29 AST 11 units/L (5-40) 11/28/21 14:29 ALT < 5 units/L (7-56) L 11/28/21 14:29 Alkaline Phosphatase 128 units/L (35-129) 11/28/21 14:29 Troponin T < 0.010 ng/mL (0.00-0.029) 11/28/21 14:29 NT-Pro-B Natriuret Pep 66.79 pg/mL (0-900) 11/28/21 14:29 Total Protein 7.2 g/dL (6.3-8.2) 11/28/21 14:29 Albumin 3.9 g/dL (3.9-5) 11/28/21 14:29 Albumin/Globulin Ratio 1.2 % 11/28/21 14:29 - Imaging and Cardiology EKG: report reviewed (Sinus rhythm no acute ST-T wave changes) Imaging and Cardiology: Chest x-ray no acute findings Assessment and Plan Advance Directives: Yes - Patient Problems (1) ACS (acute coronary syndrome) Status: Acute Plan to address problem: Serial troponins No Lexiscan on the weekend More in favor of costochondritis (2) CHF (congestive heart failure) Status: Chronic Qualifiers: Heart failure type: combined systolic and diastolic Plan to address problem: Continue Lasix and hemodialysis for increased ultrafiltration (3) HIV (human immunodeficiency virus infection) Status: Chronic Qualifiers: HIV symptom status: currently asymptomatic, with history of HIV-related illness Qualified Code(s): B20 - Human immunodeficiency virus [HIV] disease Plan to address problem: Continue antiretrovirals (4) IDDM (insulin dependent diabetes mellitus) Status: Acute Plan to address problem: Continue home insulin and coverage (5) GERD (gastroesophageal reflux disease) Status: Chronic Qualifiers: Esophagitis presence: without esophagitis Qualified Code(s): K21.9 - Gastro-esophageal reflux disease without esophagitis Plan to address problem: Continue PPIs (6) Bipolar 1 disorder Status: Acute Plan to address problem: Continue Seroquel (7) DVT prophylaxis Status: Acute Plan to address problem: On heparin and GI prophylaxis (8) Advance care planning Status: Acute Plan to address problem: Discussed diagnosis prognosis and care plan with the patient patient acknowledged understanding. Care plan +30 minutes
[2021-11-28] MEDS ORDERED: oxyCODONE /ACETAMINOPHEN 5-325MG TAB PO PRN (18:52)
[2021-11-28] MEDS ORDERED: ALBUTEROL 2.5 MG/3 ML NEBU IH PRN (18:56)
[2021-11-28] MEDS ORDERED: SODIUM CHLORIDE 0.9% 1000 ML 1,000 ML IV SCH (19:00)
[2021-11-28] MEDS ORDERED: GENVOYA PO SCH (19:00)
[2021-11-28] MEDS ORDERED: NON-FORMULARY EACH (Elviteg/Cob/Emtri/Tenof Alafen [Genvoya Tablet] 1 EACH Tablet) PO SCH (19:00)
[2021-11-28] MEDS: ENOXAPARIN 40 MG/0.4 ML INJ SUB-Q SCH (19:54)
[2021-11-28] MEDS: amLODIPine 5 MG TAB PO SCH (19:54)
[2021-11-28] MEDS: BUDESONIDE 0.5 MG/2 ML NEBU IH SCH (20:59)
[2021-11-28] MEDS: ARFORMOTEROL 15 MCG/2 ML NEBU IH SCH (20:59)
[2021-11-28] MEDS ORDERED: NON-FORMULARY EACH (Budesonide/Formoterol Fumarate [Symbicort 160-4.5 Mcg Inhaler] 10.2 GM IH SCH (22:00)
[2021-11-28] MEDS: QUEtiapine 200 MG TAB PO SCH (23:05)
[2021-11-28 23:55] LABS: Creatine Kinase MB 1.3 ng/mL (0.0-4.0)
[2021-11-29 07:30] LABS: Hematocrit 36.2 % (30.3-42.9); Hemoglobin 11.7 gm/dl (10.1-14.3); Mean Corpuscular HGB Conc 33 % (30-34); Platelet Count 207 K/mm3 (140-440); Red Blood Count 3.28 M/mm3 (3.65-5.03); Red Cell Distribution Width 14.1 % (13.2-15.2)
[2021-11-29 07:35] LABS: Mean Corpuscular Volume 110 fl (79-97)
[2021-11-29 07:49] LABS: Creatine Kinase MB 1.1 ng/mL (0.0-4.0)
[2021-11-29 07:52] LABS: Albumin 3.8 g/dL (3.9-5); Blood Urea Nitrogen 11 mg/dL (7-17); Calcium 9.2 mg/dL (8.4-10.2); Hemolysis Index 22
[2021-11-29] MEDS: BUDESONIDE 0.5 MG/2 ML NEBU IH SCH ×2 (07:53→20:42)
[2021-11-29] MEDS: ARFORMOTEROL 15 MCG/2 ML NEBU IH SCH ×2 (07:53→20:42)
[2021-11-29 07:55] LABS: Alanine Aminotransferase < 5 units/L (7-56); BUN/Creatinine Ratio 22
[2021-11-29] MEDS: INSULIN NPH/REGULAR 70/30 INJ SUB-Q SCH ×2 (08:49→17:11)
[2021-11-29] MEDS: FUROSEMIDE 40 MG TAB PO SCH (09:56)
[2021-11-29] MEDS: AZITHROMYCIN 250 MG TAB PO SCH (09:56)
[2021-11-29] MEDS: POTASSIUM CHLORIDE ER 10 MEQ TAB PO SCH (09:56)
[2021-11-29] MEDS: ENOXAPARIN 40 MG/0.4 ML INJ SUB-Q SCH (09:56)
[2021-11-29] MEDS: EMTRICITABINE 200 MG CAP PO SCH (09:57)
[2021-11-29] MEDS: PANTOPRAZOLE 40 MG TAB PO SCH (09:57)
[2021-11-29] MEDS: predniSONE 20 MG TAB PO SCH (09:57)
[2021-11-29] MEDS: amLODIPine 5 MG TAB PO SCH (09:57)
[2021-11-29] MEDS: TIOTROPIUM 18 MCG CAP INHALATION IH SCH (09:58)
[2021-11-29] MEDS: DOLUTEGRAVIR 50 MG TAB PO SCH (09:58)
[2021-11-29] MEDS: TENOFOVIR 300 MG TAB PO SCH (09:58)
[2021-11-29] MEDS ORDERED: NON-FORMULARY EACH (Tiotropium Bromide [Spiriva Respimat] 4 GM Mist.Inhal) IH SCH (10:00)
[2021-11-29 11:19] LABS: Bilirubin,Urine NEG (Negative); Blood,Urine SM (Negative); Color,Urine Yellow (Yellow); Mucus,Urine FEW /HPF; Protein,Urine <15 mg/dL mg/dL (Negative); Urobilinogen,Urine < 2.0 mg/dL (<2.0); WBC,Urine < 1.0 /HPF (0.0-6.0)
[2021-11-29 12:15] LABS: Eosinophils % (Manual) 0 % (0.0-4.3); Total Cells Counted 100
[2021-11-29 12:16] LABS: Target Cells Few
[2021-11-29 12:17] LABS: Large Platelets Few; Platelet Estimate Consistent w Auto; Spherocytes Few
--- NOTE | 2021-11-29 12:53 | Electrocardiograph Report ---
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 Electronically Signed On 11-29-2021 12:52:58 EDT by Kvng Vinson
--- NOTE | 2021-11-29 17:57 | Discharge Summary ---
Providers - Providers Date of Admission: 11/28/21 18:35 Date of discharge: 11/29/21 Attending physician: RALEIGH ROSAS Primary care physician: DIRECTOR [employer]PERATIONS BRO[employer]CAST Hospitalization Condition: Stable Hospital course: 66-year-old morbidly obese female with a history of CHF and hypertension who now presents with chest pain associated with shortness of breath that started about couple of days ago progressively getting worse. Patient denies any cough, fever or palpitation. Patient described the pain as a pressure on the left side of her chest. No radiation. Patient also reports some shortness of breath. She mentioned that she put on some weight. No other modifying or positive factors reported. 11/29/2021 Patient continues to have chest pain Patient has chest wall tenderness Assessment and Plan Advance Directives: Yes - Patient Problems (1) ACS (acute coronary syndrome) Status: Acute Plan to address problem: Serial troponins negative Patient has chest wall tenderness (2) Costochondritis Patient on analgesics (3) HIV (human immunodeficiency virus infection) Status: Chronic Qualifiers: HIV symptom status: currently asymptomatic, with history of HIV-related illness Qualified Code(s): B20 - Human immunodeficiency virus [HIV] disease Plan to address problem: Continue antiretrovirals (4) IDDM (insulin dependent diabetes mellitus) Status: Acute Plan to address problem: Continue home insulin and coverage (5) GERD (gastroesophageal reflux disease) Status: Chronic Qualifiers: Esophagitis presence: without esophagitis Qualified Code(s): K21.9 - Gastro-esophageal reflux disease without esophagitis Plan to address problem: Continue PPIs (6) Bipolar 1 disorder Status: Acute Plan to address problem: Continue Seroquel (7) DVT prophylaxis Status: Acute Plan to address problem: On heparin and GI prophylaxis (8) Advance care planning Status: Acute Plan to address problem: Discussed diagnosis prognosis and care plan with the patient patient acknowledged understanding. Care plan +30 minutes Disposition: 01 HOME / SELF CARE / HOMELESS Final Discharge Diagnosis (Prints w/discharge instructions): Costochondritis,. Atypical chest pain,. HIV,. IDDM. GERD. Bipolar disorder Time spent for discharge: 35 minutes - Discharge Diagnoses (1) ACS (acute coronary syndrome) Status: Acute (2) CHF (congestive heart failure) Status: Chronic Qualifiers: Heart failure type: combined systolic and diastolic (3) HIV (human immunodeficiency virus infection) Status: Chronic Qualifiers: HIV symptom status: currently asymptomatic, with history of HIV-related illness Qualified Code(s): B20 - Human immunodeficiency virus [HIV] disease (4) IDDM (insulin dependent diabetes mellitus) Status: Acute (5) GERD (gastroesophageal reflux disease) Status: Chronic Qualifiers: Esophagitis presence: without esophagitis Qualified Code(s): K21.9 - Gas tro-esophageal reflux disease without esophagitis (6) Bipolar 1 disorder Status: Acute (7) DVT prophylaxis Status: Acute (8) Advance care planning Status: Acute Core Measure Documentation - Palliative Care Palliative Care/ Comfort Measures: Not Applicable - Core Measures Any of the following diagnoses?: none Exam - Constitutional Vitals: Temp Pulse Resp BP Pulse Ox 97.1 F L 86 18 113/77 100 11/29/21 11:11 11/29/21 11:11 11/29/21 12:52 11/29/21 11:11 11/29/21 11:11 General appearance: Present: no acute distress, well-nourished - EENT Eyes: Present: PERRL ENT: hearing intact, clear oral mucosa - Neck Neck: Present: supple, normal ROM - Respiratory Respiratory effort: normal Respiratory: bilateral: CTA - Cardiovascular Heart rate: 78 Rhythm: regular Heart Sounds: Present: S1 & S2. Absent: rub, click - Extremities Extremities: pulses symmetrical, No edema Peripheral Pulses: within normal limits - Abdominal General gastrointestinal: Present: soft, non-tender, non-distended, normal bowel sounds Female genitourinary: Present: normal - Integumentary Integumentary: Present: clear, warm, dry - Musculoskeletal Musculoskeletal: gait normal, strength equal bilaterally - Psychiatric Psychiatric: appropriate mood/affect, intact judgment & insight - Neurologic Neurologic: CNII-XII intact, moves all extremities Plan Activity: no restrictions Diet: renal Follow up with: ALBERTO BOYLE MD [Primary Care Provider] - 3-5 Days ABDULAZIZ AMARAL MD [Staff Physician] - 7 Days Prescriptions: traMADoL [Ultram 50 MG tab] 50 mg PO Q6HR PRN #20 tablet PRN Reason: Pain
[2021-11-29] MEDS: QUEtiapine 200 MG TAB PO SCH (22:09)
[2021-11-30 09:05] VITALS: BP 95/63
[2021-11-30] MEDS: PANTOPRAZOLE 40 MG TAB PO SCH (09:39)
[2021-11-30] MEDS: amLODIPine 5 MG TAB PO SCH (09:40)
[2021-11-30] MEDS: AZITHROMYCIN 250 MG TAB PO SCH (09:40)
[2021-11-30] MEDS: predniSONE 20 MG TAB PO SCH (09:40)
[2021-11-30] MEDS: POTASSIUM CHLORIDE ER 10 MEQ TAB PO SCH (09:40)
[2021-11-30] MEDS: EMTRICITABINE 200 MG CAP PO SCH (09:41)
[2021-11-30] MEDS: TENOFOVIR 300 MG TAB PO SCH (09:41)
[2021-11-30] MEDS: DOLUTEGRAVIR 50 MG TAB PO SCH (09:41)
[2021-11-30] MEDS: FUROSEMIDE 40 MG TAB PO SCH (09:41)
[2021-11-30] MEDS: ENOXAPARIN 40 MG/0.4 ML INJ SUB-Q SCH (09:43)
[2021-11-30] MEDS: TIOTROPIUM 18 MCG CAP INHALATION IH SCH (09:44)
[2021-11-30] MEDS: BUDESONIDE 0.5 MG/2 ML NEBU IH SCH (09:45)
[2021-11-30] MEDS: ARFORMOTEROL 15 MCG/2 ML NEBU IH SCH (09:45)
[2021-11-30] MEDS: INSULIN NPH/REGULAR 70/30 INJ SUB-Q SCH (09:46)
== END 2021-11-30 16:41 | disposition home or self-care (01) ==
LOC: ED 13:09 → INTOOBSV 18:35 → 4A 18:35
PROVIDERS: ADMIT Internal Medicine; ATTEND Internal Medicine
DX: I24.9 Acute ischemic heart disease, unspecified (principal); I11.0 Hypertensive heart disease with heart failure; I50.9 Heart failure, unspecified; M94.0 Chondrocostal junction syndrome [Tietze]; R06.00 Dyspnea, unspecified; E11.9 Type 2 diabetes mellitus without complications; K21.9 Gastro-esophageal reflux disease without esophagitis; F31.9 Bipolar disorder, unspecified; B20 Human immunodeficiency virus [HIV] disease; F20.9 Schizophrenia, unspecified; R56.9 Unspecified convulsions; M48.00 Spinal stenosis, site unspecified; Z86.711 Personal history of pulmonary embolism; Z90.710 Acquired absence of both cervix and uterus; Z79.4 Long term (current) use of insulin
CPT/HCPCS: 36415; 71045; 80053; 81001; 82550; 82553; 82962; 83880; 84484; 85025; 93005; 94640; 96361; 96372; 96374; 99285; G0378; J1650; J2270; J2405; J7030; 85007; Q0162; Q0177; J1815

== ENCOUNTER 2022-01-15 11:58 | Emergency (ER) | payer MEDICARE ==
--- NOTE | 2022-01-15 15:47 | XRay Report ---
CHEST 2 VIEWS INDICATION / CLINICAL INFORMATION: shortness of breath. COMPARISON: 11/28/2021 FINDINGS: SUPPORT DEVICES: None. HEART / MEDIASTINUM: No significant abnormality. LUNGS / PLEURA: No significant pulmonary or pleural abnormality. No pneumothorax. ADDITIONAL FINDINGS: No significant additional findings. IMPRESSION: 1. No acute findings. No interval change. Signer Name: Mere Pepe MD Signed: 01/15/2022 3:42 PM Workstation Name: [id number]
--- NOTE | 2022-01-15 15:49 | Emergency Department Report ---
ED Shortness of Breath HPI - General Chief Complaint: Dyspnea/Respdistress Stated Complaint: PRODUCTIVE COUGH Time Seen by Provider: 01/15/22 15:34 Source: patient, EMS Mode of arrival: Ambulatory Limitations: No Limitations - History of Present Illness Initial Comments: Patient is 66 years old female with history of hypertension, diabetes, pulmonary embolism and congestive heart failure on Lasix. Patient presented to the ER complaining of shortness of breath and cough for the last 2 days. Patient describes significant orthopnea. Patient denies any chest pain. She also reported chills but no fever. She denied any nausea or vomiting. MD Complaint: shortness of breath -: days(s) (2) Consistency: constant Known History Of: congestive heart failure Context: recent URI Treatments Prior to Arrival: none - Related Data Previous Rx's Medication Instructions Recorded Last Taken Type Glycerin/ Witch Lise Pad [Tucks 1 each TP PRN PRN #1 box 12/21/19 Unknown Rx Pad] ALBUTEROL NEB's [Proventil 0.083% 2.5 mg IH TID PRN #30 neb 01/23/20 Unknown Rx NEBS] Albuterol Sulfate [Proventil Hfa] 2 puff IH Q4HR PRN #1 hfa.aer.ad 01/23/20 Unkn own Rx Budesonide/Formoterol Fumarate 2 inhalation IH BID #1 hfa.aer.ad 01/23/20 Unknown Rx [Symbicort 160-4.5 Mcg Inhaler] Elviteg/Cob/Emtri/Tenof Alafen 1 each PO DAILY #30 tablet 01/23/20 Unknown Rx [Genvoya Tablet] Furosemide [Lasix TAB] 40 mg PO QAM #30 tablet 01/23/20 Unknown Rx Genvoya Tablet 1 tab PO DAILY #90 tab 01/23/20 Unknown Rx Insulin NPH/Regular [NovoLIN 70/30] 30 unit SUB-Q BIDDIAB #2 vial 01/23/20 Unknown Rx Pantoprazole [Protonix TAB] 40 mg PO QDAY #30 tablet 01/23/20 Unknown Rx Potassium Chloride [K-Dur] 10 meq PO QDAY #30 tablet 01/23/20 Unknown Rx QUEtiapine [SEROquel] 200 mg PO QHS #90 tablet 01/23/20 Unknown Rx Tiotropium [place] [Spiriva 2 inhalation IH DAILY #1 mist.inhal 01/23/20 Unknown Rx Respimat] amLODIPine 5 mg PO QDAY #30 tablet 01/23/20 Unknown Rx traMADoL [Ultram 50 MG tab] 50 mg PO Q6H PRN #14 tablet 01/23/20 Unknown Rx Albuterol Mdi (or & Nicu Only) 2 puff IH Q4HR PRN #1 inhalation 04/03/20 Unknown Rx [ProAir HFA Inhaler] Azithromycin [Zithromax Z-LUAN] 250 mg PO DAILY #6 tablet 04/03/20 Unknown Rx Benzonatate [Tessalon Perles] 100 mg PO Q8HR PRN #20 capsule 04/03/20 Unknown Rx predniSONE [Deltasone] 20 mg PO DAILY #15 tablet 04/03/20 Unknown Rx Ondansetron [Zofran Odt] 4 mg PO Q8HR PRN #14 tab.rapdis 04/17/21 Unknown Rx traMADoL [Ultram 50 MG tab] 50 mg PO Q6HR PRN #20 tablet 11/29/21 Unknown Rx Allergies Allergy/AdvReac Type Severity Reaction Status Date / Time shellfish derived Allergy Severe Shortness Verified 04/17/21 07:51 of Breath ibuprofen [From Motrin] Allergy Mild Shortness Verified 04/17/21 07:51 of Breath aspirin Allergy Itching Verified 04/17/21 08:01 tetracycline Allergy Shortness Verified 04/17/21 07:51 of Breath ED Review of Systems ROS: Stated complaint: PRODUCTIVE COUGH Other details as noted in HPI Comment: All other systems reviewed and negative Constitutional: chills. denies: fever Respiratory: cough, orthopnea, shortness of breath, SOB with exertion, SOB at rest. denies: wheezing Cardiovascular: denies: chest pain, palpitations Gastrointestinal: denies: abdominal pain, nausea, vomiting, diarrhea, constipation, hematemesis, melena, hematochezia Musculoskeletal: denies: back pain Neurological: denies: headache, weakness, numbness, paresthesias, confusion Psychiatric: denies: suicidal thoughts ED Past Medical Hx - Past Medical History Hx Hypertension: Yes Hx Congestive Heart Failure: Yes Hx Diabetes: Yes Hx Deep Vein Thrombosis: No Hx Pulmonary Embolism: Yes Hx GERD: No Hx Renal Disease: No Hx Arthritis: No Hx Seizures: Yes Hx Kidney Stones: No Hx Psychiatric Treatment: Yes (bipolar disorder; schziphornia) Hx Asthma: No Hx COPD: No Hx Tuberculosis: No Hx Dementia: No Hx HIV: Yes Additional medical history: CDIFF, spinal stenosis - Surgical History Hx Open Heart Surgery: No Hx Pacemaker: No Hx Internal Defibrillator: No Hx Cholecystectomy: No Hx Appendectomy: No Hx Breast Surgery: No Additional Surgical History: Hysterectomy - Social History Smoking Status: Never Smoker - Medications Home Medications: Home Medications Medication Instructions Recorded Confirmed Last Taken Type Glycerin/ Witch Lise Pad [Tucks 1 each TP PRN PRN #1 box 12/21/19 01/22/20 Unknown Rx Pad] ALBUTEROL NEB's [Proventil 0.083% 2.5 mg IH TID PRN #30 neb 01/23/20 Unknown Rx NEBS] Albuterol Sulfate [Proventil Hfa] 2 puff IH Q4HR PRN #1 hfa.aer.ad 01/23/20 Unknown Rx Budesonide/Formoterol Fumarate 2 inhalation IH BID #1 hfa.aer.ad 01/23/20 Unknown Rx [Symbicort 160-4.5 Mcg Inhaler] Elviteg/Cob/Emtri/Tenof Alafen 1 each PO DAILY #30 tablet 01/23/20 Unknown Rx [Genvoya Tablet] Furosemide [Lasix TAB] 40 mg PO QAM #30 tablet 01/23/20 Unknown Rx Genvoya Tablet 1 tab PO DAILY #90 tab 01/23/20 Unknown Rx Insulin NPH/Regular [NovoLIN 70/30] 30 unit SUB-Q BIDDIAB #2 vial 01/23/20 Unknown Rx Pantoprazole [Protonix TAB] 40 mg PO QDAY #30 tablet 01/23/20 Unknown Rx Potassium Chloride [K-Dur] 10 meq PO QDAY #30 tablet 01/23/20 Unknown Rx QUEtiapine [SEROquel] 200 mg PO QHS #90 tablet 01/23/20 Unknown Rx Tiotropium [place] [Spiriva 2 inhalation IH DAILY #1 mist.inhal 01/23/20 Unknown Rx Respimat] amLODIPine 5 mg PO QDAY #30 tablet 01/23/20 Unknown Rx traMADoL [Ultram 50 MG tab] 50 mg PO Q6H PRN #14 tablet 01/23/20 Unknown Rx Albuterol Mdi (or & Nicu Only) 2 puff IH Q4HR PRN #1 inhalation 04/03/20 Unknown Rx [ProAir HFA Inhaler] Azithromycin [Zithromax Z-LUAN] 250 mg PO DAILY #6 tablet 04/03/20 Unknown Rx Benzonatate [Tessalon Perles] 100 mg PO Q8HR PRN #20 capsule 04/03/20 Unknown Rx predniSONE [Deltasone] 20 mg PO DAILY #15 tablet 04/03/20 Unknown Rx Ondansetron [Zofran Odt] 4 mg PO Q8HR PRN #14 tab.rapdis 04/17/21 Unknown Rx traMADoL [Ultram 50 MG tab] 50 mg PO Q6HR PRN #20 tablet 11/29/21 Unknown Rx ED Physical Exam - General Limitations: No Limitations General appearance: alert, in no apparent distress - Head Head exam: Present: atraumatic, normocephalic, normal inspection - Eye Eye exam: Present: normal appearance - ENT ENT exam: Present: normal exam, normal orophraynx, mucous membranes moist - Neck Neck exam: Present: normal inspection, full ROM. Absent: tenderness, meningismus - Respiratory Respiratory exam: Present: rales, rhonchi, decreased breath sounds. Absent: respiratory distress, wheezes, accessory muscle use, prolonged expiratory - Cardiovascular Cardiovascular Exam: Present: regular rate, normal rhythm, normal heart sounds - GI/Abdominal GI/Abdominal exam: Present: soft, normal bowel sounds. Absent: distended, tenderness, guarding, rebound, rigid, organomegaly, mass, bruit, pulsatile mass, hernia - Extremities Exam Extremities exam: Present: normal inspection, full ROM, normal capillary refill. Absent: tenderness - Back Exam Back exam: Present: normal inspection, full ROM. Absent: CVA tenderness (R), CVA tenderness (L) - Neurological Exam Neurological exam: Present: alert, oriented X3, CN II-XII intact - Psychiatric Psychiatric exam: Present: normal mood. Absent: suicidal ideation - Skin Skin exam: Present: warm, intact, normal color ED Course Vital Signs 01/15/22 01/15/22 14:54 21:27 Temperature 98.1 F Pulse Rate 94 H 104 H Respiratory 16 14 Rate Blood Pressure 109/83 130/86 [Left] O2 Sat by Pulse 99 100 Oximetry ED Medical Decision Making - Lab Data Result diagrams: 01/15/22 17:53 01/15/22 17:53 - Radiology Data Radiology results: report reviewed - Medical Decision Making Patient is 66 years old female with history of hypertension, diabetes, pulmonary embolism and congestive heart failure on Lasix. Patient presented to the ER complaining of shortness of breath and cough for the last 2 days. Patient describes significant orthopnea. Patient denies any chest pain. She also r eported chills but no fever. She denied any nausea or vomiting. Patient remained stable in the ER with stable vital sign. Labs reviewed and is unremarkable except for potassium of 2.9. Patient received potassium supplementation. Chest x-ray is unremarkable. Patient's symptoms most likely related to acute bronchitis. Patient given prescription for Z-Luan and advised to follow-up with her primary care physician in the next 2 to 3 days and to return to the ER if she develop any new symptoms. Critical care attestation.: If time is entered above; I have spent that time in minutes in the direct care of this critically ill patient, excluding procedure time. ED Disposition Clinical Impression: Acute hypokalemia, Acute bronchitis Disposition: 01 HOME / SELF CARE / HOMELESS Is pt being admited?: No Instructions: Acute Bronchitis (ED), Hypokalemia, Acute Bronchitis, Adult, [id number] Referrals: ANJELICA MIRAMONTES MD [Primary Care Provider] - 3-5 Days
[2022-01-15 18:51] LABS: Hematocrit 39.8 % (30.3-42.9); Hemoglobin 13.3 gm/dl (10.1-14.3); Mean Corpuscular HGB Conc 34 % (30-34); Mean Corpuscular Volume 107 fl (79-97); Platelet Count 198 K/mm3 (140-440); Red Blood Count 3.74 M/mm3 (3.65-5.03); Red Cell Distribution Width 12.3 % (13.2-15.2)
[2022-01-15 18:54] LABS: Alanine Aminotransferase 6 units/L (7-56); Blood Urea Nitrogen 10 mg/dL (7-17); Calcium 9.2 mg/dL (8.4-10.2); Hemolysis Index 8
[2022-01-15 18:57] LABS: BUN/Creatinine Ratio 17
[2022-01-15 19:00] LABS: INR 0.94 (0.87-1.13); Partial Thromboplastin Time 29.2 Sec. (24.2-36.6)
[2022-01-15] MEDS ORDERED: POTASSIUM CHLORIDE ER 20 MEQ TAB PO ONE ×2 (19:01→22:15)
[2022-01-15] MEDS ORDERED: POTASSIUM CHLORIDE 10 MEQ 10 MEQ/100 ML BAG IV SCH (20:00)
[2022-01-15 20:14] LABS: Basophils % (Manual) 0 % (0.0-1.8); Total Cells Counted 100
[2022-01-15 20:15] LABS: Large Platelets Few; Platelet Estimate Consistent w Auto; RBC Morphology Normal
[2022-01-15] MEDS ORDERED: ALBUTEROL 2.5 MG/3 ML NEBU IH ONE (23:11)
[2022-01-16 00:06] VITALS: BP 136/89
== END 2022-01-16 00:07 | disposition home or self-care (01) ==
LOC: ED 11:58
DX: E87.6 Hypokalemia (principal); J20.9 Acute bronchitis, unspecified; I11.9 Hypertensive heart disease without heart failure; I50.9 Heart failure, unspecified; E11.9 Type 2 diabetes mellitus without complications; R56.9 Unspecified convulsions; I26.99 Other pulmonary embolism without acute cor pulmonale; F20.9 Schizophrenia, unspecified; F31.9 Bipolar disorder, unspecified; Z90.710 Acquired absence of both cervix and uterus; Z88.1 Allergy status to other antibiotic agents; Z88.6 Allergy status to analgesic agent; Z91.013 Allergy to seafood
CPT/HCPCS: 36415; 71046; 80053; 83880; 84484; 85007; 85025; 85610; 85730; 94640; 99284; J3480; 94644

== ENCOUNTER 2022-01-24 22:16 | Emergency (ER) | payer MEDICARE ==
[2022-01-24] MEDS ORDERED: ASPIRIN 325 MG TAB PO ONE (22:48)
[2022-01-24] MEDS ORDERED: fentaNYL 100 MCG/2 ML INJ IV ONE (23:02)
[2022-01-24] MEDS ORDERED: ONDANSETRON 4 MG/2 ML INJ IV ONE (23:03)
--- NOTE | 2022-01-24 23:18 | Emergency Department Report ---
HPI - General Chief Complaint: Chest Pain Time Seen by Provider: 01/24/22 22:54 - HPI HPI: Room 24 The patient is a 66-year-old female present with a chief complaint of chest and abdominal pain. Patient states pain began yesterday but worsened today. Patient describes the pain as sharp and intermittent in nature radiating to the right side and back. Patient admits to nausea vomiting. Patient denies history of diarrhea or cough. Patient states she has not noticed a change in the pain with meals. Patient denies history of dysuria or hematuria. Patient currently gives her pain a score of 8/10. ED Past Medical Hx - Past Medical History Previous Medical History?: Yes Hx Hypertension: Yes Hx Congestive Heart Failure: Yes Hx Diabetes: Yes Hx Pulmonary Embolism: Yes Hx Seizures: Yes Hx Psychiatric Treatment: Yes (bipolar disorder; schziphornia) Hx HIV: Yes (on medication, unknown last CD4 count) Additional medical history: CDIFF, spinal stenosis - Surgical History Past Surgical History?: Yes Additional Surgical History: Hysterectomy - Family History Family history: no significant - Social History Smoking Status: Never Smoker Substance Use Type: None (Denies illicit drug) - Medications Home Medications: Home Medications Medication Instructions Recorded Confirmed Last Taken Type Glycerin/ Witch Lise Pad [Tucks 1 each TP PRN PRN #1 box 12/21/19 01/22/20 Unknown Rx Pad] ALBUTEROL NEB's [Proventil 0.083% 2.5 mg IH TID PRN #30 neb 01/23/20 Unknown Rx NEBS] Albuterol Sulfate [Proventil Hfa] 2 puff IH Q4HR PRN #1 hfa.aer.ad 01/23/20 Unknown Rx Budesonide/Formoterol Fumarate 2 inhalation IH BID #1 hfa.aer.ad 01/23/20 Unknown Rx [Symbicort 160-4.5 Mcg Inhaler] Elviteg/Cob/Emtri/Tenof Alafen 1 each PO DAILY #30 tablet 01/23/20 Unknown Rx [Genvoya Tablet] Furosemide [Lasix TAB] 40 mg PO QAM #30 tablet 01/23/20 Unknown Rx Genvoya Tablet 1 tab PO DAILY #90 tab 01/23/20 Unknown Rx Insulin NPH/Regular [NovoLIN 70/30] 30 unit SUB-Q BIDDIAB #2 vial 01/23/20 Unknown Rx Pantoprazole [Protonix TAB] 40 mg PO QDAY #30 tablet 01/23/20 Unknown Rx Potassium Chloride [K-Dur] 10 meq PO QDAY #30 tablet 01/23/20 Unknown Rx QUEtiapine [SEROquel] 200 mg PO QHS #90 tablet 01/23/20 Unknown Rx Tiotropium [place] [Spiriva 2 inhalation IH DAILY #1 mist.inhal 01/23/20 Unknown Rx Respimat] amLODIPine 5 mg PO QDAY #30 tablet 01/23/20 Unknown Rx traMADoL [Ultram 50 MG tab] 50 mg PO Q6H PRN #14 tablet 01/23/20 Unknown Rx Albuterol Mdi (or & Nicu Only) 2 puff IH Q4HR PRN #1 inhalation 04/03/20 Unknown Rx [ProAir HFA Inhaler] Azithromycin [Zithromax Z-LUAN] 250 mg PO DAILY #6 tablet 04/03/20 Unknown Rx Benzonatate [Tessalon Perles] 100 mg PO Q8HR PRN #20 capsule 04/03/20 Unknown R x predniSONE [Deltasone] 20 mg PO DAILY #15 tablet 04/03/20 Unknown Rx Ondansetron [Zofran Odt] 4 mg PO Q8HR PRN #14 tab.rapdis 04/17/21 Unknown Rx traMADoL [Ultram 50 MG tab] 50 mg PO Q6HR PRN #20 tablet 11/29/21 Unknown Rx Azithromycin [Zithromax Z-LUAN] 250 mg PO DAILY 1 Days tab 01/15/22 Unknown Rx Potassium Chloride [K-Dur] 20 meq PO QDAY #5 01/15/22 Unknown Rx guaiFENesin/CODEINE [Robitussin AC] 10 ml PO TID PRN #100 ml 01/15/22 Unknown Rx Famotidine [Pepcid] 20 mg PO BID #30 tablet 01/25/22 Unknown Rx HYDROcodone/APAP 5-325 [Hobbs 1 - 2 each PO Q6HR PRN #14 tablet 01/25/22 Unknown Rx 5/325] Ondansetron [Zofran ODT TAB] 8 mg PO Q8HR #20 tab.rapdis 01/25/22 Unknown Rx ED Review of Systems ROS: Stated complaint: RT SIDE PAIN Other details as noted in HPI Constitutional: fever (Subjective) Eyes: denies: eye pain ENT: denies: throat pain Respiratory: no symptoms reported Cardiovascular: chest pain Endocrine: no symptoms reported Gastrointestinal: abdominal pain, nausea, vomiting Genitourinary: denies: dysuria, hematuria Musculoskeletal: back pain Neurological: denies: headache Physical Exam - Physical Exam Vital Signs: Vital Signs 01/24/22 22:30 Temperature 98 F Pulse Rate 108 H Respiratory 18 Rate Blood Pressure 166/74 O2 Sat by Pulse 100 Oximetry Physical Exam: GENERAL: The patient is well-developed well-nourished female lying on stretcher appearing to be in mild discomfort. [] HEENT: Normocephalic. Atraumatic. Extraocular motions are intact. Patient has moist mucous membranes. NECK: Supple. Trachea midline CHEST/LUNGS: Clear to auscultation. There is no respiratory distress noted. HEART/CARDIOVASCULAR: Regular. There is tachycardia. There is no gallop rub or murmur. ABDOMEN: Abdomen is soft, with diffuse tenderness to palpation greatest in the right abdomen. No rebound or guard. Patient has normal bowel sounds. There is no abdominal distention. SKIN: There is no rash. There is no edema. There is no diaphoresis. NEURO: The patient is awake, alert, and oriented. The patient is cooperative. The patient has no focal neurologic deficits. The patient has normal speech MUSCULOSKELETAL: There is no evidence of acute injury. ED Course Vital Signs 01/24/22 22:30 Temperature 98 F Pulse Rate 108 H Respiratory 18 Rate Blood Pressure 166/74 O2 Sat by Pulse 100 Oximetry ED Medical Decision Making - Lab Data Result diagrams: 01/24/22 23:09 01/24/22 23:09 Laboratory Tests 01/24/22 01/24/22 01/24/22 23:09 23:09 23:09 WBC 5.8 RBC 3.35 L Hgb 12.1 Hct 35.3 MCV 105 H MCH 36 H MCHC 34 RDW 12.6 L Plt Count 186 Lymph % (Auto) 45.5 H [place] % (Auto) 7.0 Eos % (Auto) 1.1 Baso % (Auto) 0.3 Lymph # (Auto) 2.6 [place] # (Auto) 0.4 Eos # (Auto) 0.1 Baso # (Auto) 0.0 Seg Neutrophils % 46.1 Seg Neutrophils # 2.7 PT 14.1 INR 0.98 Sodium 134 L Potassium 4.3 Chloride 99.3 Carbon Dioxide 21 L Anion Gap 18 BUN 14 Creatinine 0.8 Estimated GFR > 60 BUN/Creatinine Ratio 18 Glucose 218 H Calcium 9.1 Total Bilirubin 0.20 AST 12 ALT 6 L Alkaline Phosphatase 131 H Total Creatine Kinase CK-MB (CK-2) CK-MB (CK-2) Rel Index Troponin T < 0.010 Total Protein 7.3 Albumin 3.9 Albumin/Globulin Ratio 1.1 Lipase Urine Color Urine Turbidity Urine pH Ur Specific [place] Urine Protein Urine Glucose (UA) Urine Ketones Urine Blood Urine Nitrite Urine Bilirubin Urine Urobilinogen Ur Leukocyte Esterase Urine WBC (Auto) Urine RBC (Auto) U Epithel Cells (Auto) Phenytoin 01/24/22 01/24/22 01/24/22 23:09 23:09 23:09 WBC RBC Hgb Hct MCV MCH MCHC RDW Plt Count Lymph % (Auto) [place] % (Auto) Eos % (Auto) Baso % (Auto) Lymph # (Auto) [place] # (Auto) Eos # (Auto) Baso # (Auto) Seg Neutrophils % Seg Neutrophils # PT INR Sodium Potassium Chloride Carbon Dioxide Anion Gap BUN Creatinine Estimated GFR BUN/Creatinine Ratio Glucose Calcium Total Bilirubin AST ALT Alkaline Phosphatase Total Creatine Kinase 183 H CK-MB (CK-2) 1.6 CK-MB (CK-2) Rel Index 0.8 Troponin T Total Protein Albumin Albumin/Globulin Ratio Lipase 25 Urine Color Urine Turbidity Urine pH Ur Specific [place] Urine Protein Urine Glucose (UA) Urine Ketones Urine Blood Urine Nitrite Urine Bilirubin Urine Urobilinogen Ur Leukocyte Esterase Urine WBC (Auto) Urine RBC (Auto) U Epithel Cells (Auto) Phenytoin 4.7 L 01/25/22 01/25/22 01/25/22 02:05 04:30 Unknown WBC RBC Hgb Hct MCV MCH MCHC RDW Plt Count Lymph % (Auto) [place] % (Auto) Eos % (Auto) Baso % (Auto) Lymph # (Auto) [place] # (Auto) Eos # (Auto) Baso # (Auto) Seg Neutrophils % Seg Neutrophils # PT INR Sodium Potassium Chloride Carbon Dioxide Anion Gap BUN Creatinine Estimated GFR BUN/Creatinine Ratio Glucose Calcium Total Bilirubin AST ALT Alkaline Phosphatase Total Creatine Kinase CK-MB (CK-2) CK-MB (CK-2) Rel Index Troponin T < 0.010 < 0.010 Total Protein Albumin Albumin/Globulin Ratio Lipase Urine Color Straw Urine Turbidity Clear Urine pH 5.0 Ur Specific [place] 1.011 Urine Protein <15 mg/dl Urine Glucose (UA) Neg Urine Ketones Neg Urine Blood Neg Urine Nitrite Neg Urine Bilirubin Neg Urine Urobilinogen < 2.0 Ur Leukocyte Esterase Neg Urine WBC (Auto) 3.0 Urine RBC (Auto) 1.0 U Epithel Cells (Auto) 1.0 Phenytoin - EKG Data -: EKG Interpreted by Me EKG shows normal: sinus rhythm Rate: tachycardia (101 bpm) - EKG Data When compared to previous EKG there are: no significant change Interpretation: unchanged when compared t (11/28/2021) - Radiology Data Radiology results: report reviewed (Chest x-ray, right upper quadrant ul trasound, CT abdomen pelvis), image reviewed (Chest x-ray, right upper quadrant ultrasound, CT abdomen pelvis) interpreted by me: Chest x-ray-no definite focal infiltrates, no pneumothorax [address] [address] XRay Report Signed Patient: SIRI JEAN MR# : [id number] : 1955 Acct:[id number] Age/Sex: 66 / F ADM Date: 01/24/22 Loc: ED Attending Dr: Ordering Physician: ESVIN TRAN MD Date of Service: 01/24/22 Procedure(s): XR chest 1V ap Accession Number(s): [id number] cc: ESVIN TRAN MD Fluoro Time In Minutes: CHEST 1 VIEW INDICATION / CLINICAL INFORMATION: chest pain. COMPARISON: 01/15/2022 FINDINGS: SUPPORT DEVICES: None. HEART / MEDIASTINUM: No significant abnormality. LUNGS / PLEURA: No significant pulmonary or pleural abnormality. No pneumothorax. ADDITIONAL FINDINGS: No significant additional findings. IMPRESSION: 1. No acute findings. Signer Name: Cameron Urias MD Signed: 01/24/2022 11:50 PM Workstation Name: [id number] Transcribed By: TL Dictated By: Cameron Urias MD Electronically Authenticated By: Cameron Urias MD Signed Date/Time: 01/24/22 147 DD/ 100 TD/TT: [address] [address] Ultrasound Report Signed Patient: SIRI JEAN MR# : [id number] : 1955 Acct:[id number] Age/Sex: 66 / F ADM Date: 01/24/22 Loc: ED Attending Dr: Ordering Physician: ESVIN TRAN MD Date of Service: 01/24/22 Procedure(s): US abdomen limited Accession Number(s): [id number] cc: ESVIN TRAN MD LIMITED RUQ ABDOMINAL ULTRASOUND INDICATION / CLINICAL INFORMATION: Right upper quadrant pain, nausea vomiting. COMPARISON: No relevant prior imaging study available. FINDINGS: PANCREAS: Visualized portions show no significant abnormality. ABDOMINAL AORTA: No significant abnormality. IVC: No significant abnormality.. LIVER: The liver measures 16.2 cm in length. No significant abnormality. Normal hepatopedal blood flow in the main portal vein. GALLBLADDER: No significant abnormality. BILE DUCTS: No significant abnormality. Common bile duct measures 4 mm. RIGHT KIDNEY: No significant abnormality visualized. FREE FLUID: None. ADDITIONAL FINDINGS: None. IMPRESSION: 1. No sonographic abnormality of the right upper quadrant. Signer Name: Cameron Urias MD Signed: 01/25/2022 1:11 AM Workstation Name: [id number] Transcribed By: Dic tated By: Cameron Urias MD Electronically Authenticated By: Cameron Urias MD Signed Date/Time: 01/25/22110 DD/ 9 TD/TT: [address] [address] Cat Scan Report Signed Patient: SIRI JEAN MR# : [id number] : 1955 Acct:[id number] Age/Sex: 66 / F ADM Date: 01/24/22 Loc: ED Attending Dr: Ordering Physician: ESVIN TRAN MD Date of Service: 01/25/22 Procedure(s): CT abdomen pelvis wo con Accession Number(s): [id number] cc: ESVIN TRAN MD CT ABDOMEN AND PELVIS WITHOUT CONTRAST INDICATION: Diffuse abdominal pain. TECHNIQUE: Axial CT images were obtained through the abdomen and pelvis without IV contrast. All CT scans at this location are performed using CT dose reduction for ALARA by means of automated exposure control. COMPARISON: CT abdomen pelvis 12/20/2019 FINDINGS: LOWER CHEST: No significant abnormality. LIVER: No significant abnormality. GALLBLADDER: No significant abnormality. BILE DUCTS: No significant abnormality. PANCREAS: No significant abnormality. SPLEEN: No significant abnormality. ADRENALS: No significant abnormality. RIGHT KIDNEY and URETER: No significant abnormality. LEFT KIDNEY and URETER: No significant abnormality. STOMACH and SMALL BOWEL: Small hiatal hernia COLON: Mild colonic diverticulosis. APPENDIX: No significant abnormality PERITONEUM: No free fluid. No free air. No fluid collection. LYMPH NODES: No significant adenopathy. AORTA and ARTERIES: No significant abnormality. IVC and VEINS: IVC filter again noted. URINARY BLADDER: No significant abnormality. REPRODUCTIVE ORGANS: Surgically absent ADDITIONAL FINDINGS: None. SKELETAL SYSTEM: No significant abnormality. IMPRESSION: 1. Mild colonic diverticulosis without diverticulitis. 2. Small hiatal hernia 3. No urinary tract calculi or hydronephrosis Signer Name: Cameron Urias MD Signed: 01/25/2022 2:51 AM Workstation Name: [id number] Transcribed By: TL Dictated By: Cameron Urias MD Electronically Authenticated By: Cameron Urias MD Signed Date/Time: 01/25/22250 DD/ 8 TD/TT: - Differential Diagnosis Symptomatic cholelithiasis, cholecystitis, pancreatitis, ACS, GERD, pericar Critical care attestation.: If time is entered above; I have spent that time in minutes in the direct care of this critically ill patient, excluding procedure time. ED Disposition Clinical Impression: Acute abdominal pain, Nausea & vomiting, Atypical chest pain Disposition: 01 HOME / SELF CARE / HOMELESS Is pt being admited?: No Does the pt Need Aspirin: No Condition: Stable Instructions: Nonspecific Chest Pain, Adult, Abdominal Pain, Adult, [id number] Additional Instructions: Return to the emergency department should you develop worsening symptoms, inability to tolerate food or liquids, high fever or any other concerns Prescriptions: HYDROcodone/APAP 5-325 [Hobbs 5/325] 1 - 2 each PO Q6HR PRN #14 tablet PRN Reason: Pain Famotidine [Pepcid] 20 mg PO BID #30 tablet Ondansetron [Zofran ODT TAB] 8 mg PO Q8HR #20 tab.rapdis Referrals: JOSE LUIS CROSS MD [Staff Physician] - 3-5 Days (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 Please follow-up with him for further evaluation) Time of Disposition: 05:49 Heart Score - HEART Score History: Slightly suspicious EKG: Normal Age: 45-65 Risk factors: 1-2 risk factors Troponin: < normal limit HEART Score: 2 - EKG Read Time Time EKG Completed: 22:51 EKG Read Time: 03:01
[2022-01-24 23:40] LABS: Basophils % (Auto) 0.3 % (0.0-1.8); Eosinophils # (Auto) 0.1 K/mm3 (0.0-0.4); Eosinophils % (Auto) 1.1 % (0.0-4.3); Hematocrit 35.3 % (30.3-42.9); Hemoglobin 12.1 gm/dl (10.1-14.3); Lymphocytes # (Auto) 2.6 K/mm3 (1.2-5.4); Lymphocytes % (Auto) 45.5 % (13.4-35.0); Mean Corpuscular HGB Conc 34 % (30-34); Mean Corpuscular Volume 105 fl (79-97); Monocytes # (Auto) 0.4 K/mm3 (0.0-0.8); Platelet Count 186 K/mm3 (140-440); Red Blood Count 3.35 M/mm3 (3.65-5.03); Red Cell Distribution Width 12.6 % (13.2-15.2)
[2022-01-24 23:53] LABS: INR 0.98 (0.87-1.13)
--- NOTE | 2022-01-24 23:54 | XRay Report ---
CHEST 1 VIEW INDICATION / CLINICAL INFORMATION: chest pain. COMPARISON: 01/15/2022 FINDINGS: SUPPORT DEVICES: None. HEART / MEDIASTINUM: No significant abnormality. LUNGS / PLEURA: No significant pulmonary or pleural abnormality. No pneumothorax. ADDITIONAL FINDINGS: No significant additional findings. IMPRESSION: 1. No acute findings. Signer Name: Cameron Urias MD Signed: 01/24/2022 11:50 PM Workstation Name: [email or web address]
[2022-01-25 00:02] LABS: Creatine Kinase MB 1.6 ng/mL (0.0-4.0)
[2022-01-25 00:04] LABS: Alanine Aminotransferase 6 units/L (7-56); Albumin 3.9 g/dL (3.9-5); BUN/Creatinine Ratio 18; Blood Urea Nitrogen 14 mg/dL (7-17); Calcium 9.1 mg/dL (8.4-10.2); Hemolysis Index 0
[2022-01-25] MEDS ORDERED: ONDANSETRON 4 MG/2 ML INJ IM ONE (00:54)
[2022-01-25] MEDS ORDERED: fentaNYL 100 MCG/2 ML INJ IM ONE (00:55)
--- NOTE | 2022-01-25 01:15 | Ultrasound Report ---
LIMITED RUQ ABDOMINAL ULTRASOUND INDICATION / CLINICAL INFORMATION: Right upper quadrant pain, nausea vomiting. COMPARISON: No relevant prior imaging study available. FINDINGS: PANCREAS: Visualized portions show no significant abnormality. ABDOMINAL AORTA: No significant abnormality. IVC: No significant abnormality.. LIVER: The liver measures 16.2 cm in length. No significant abnormality. Normal hepatopedal blood fl ow in the main portal vein. GALLBLADDER: No significant abnormality. BILE DUCTS: No significant abnormality. Common bile duct measures 4 mm. RIGHT KIDNEY: No significant abnormality visualized. FREE FLUID: None. ADDITIONAL FINDINGS: None. IMPRESSION: 1. No sonographic abnormality of the right upper quadrant. Signer Name: Cameron Urias MD Signed: 01/25/2022 1:11 AM Workstation Name: [id number]
--- NOTE | 2022-01-25 02:56 | Cat Scan Report ---
CT ABDOMEN AND PELVIS WITHOUT CONTRAST INDICATION: Diffuse abdominal pain. TECHNIQUE: Axial CT images were obtained through the abdomen and pelvis without IV contrast. All CT scans at [facility] are performed using CT dose reduction for ALARA by means of automated exposure control. COMPARISON: CT abdomen pelvis 12/20/2019 FINDINGS: LOWER CHEST: No significant abnormality. LIVER: No significant abnormality. GALLBLADDER: No significant abnormality. BILE DUCTS: No significant abnormality. PANCREAS: No significant abnormality. SPLEEN: No significant abnormality. ADRENALS: No significant abnormality. RIGHT KIDNEY and URETER: No significant abnormality. LEFT KIDNEY and URETER: No significant abnormality. STOMACH and SMALL BOWEL: Small hiatal hernia COLON: Mild colonic diverticulosis. APPENDIX: No significant abnormality PERITONEUM: No free fluid. No free air. No fluid collection. LYMPH NODES: No significant adenopathy. AORTA and ARTERIES: No significant abnormality. IVC and VEINS: IVC filter again noted. URINARY BLADDER: No significant abnormality. REPRODUCTIVE ORGANS: Surgically absent ADDITIONAL FINDINGS: None. SKELETAL SYSTEM: No significant abnormality. IMPRESSION: 1. Mild colonic diverticulosis without diverticulitis. 2. Small hiatal hernia 3. No urinary tract calculi or hydronephrosis Signer Name: Cameron Urias MD Signed: 01/25/2022 2:51 AM Workstation Name: [id number]
[2022-01-25] MEDS ORDERED: METOCLOPRAMIDE 10 MG/2 ML INJ IM ONE (03:07)
[2022-01-25] MEDS ORDERED: HYDROmorphone 1 MG/1 ML INJ IM ONE (03:07)
[2022-01-25 04:34] LABS: Bilirubin,Urine NEG (Negative); Blood,Urine NEG (Negative); Color,Urine Straw (Yellow); Protein,Urine <15 mg/dL mg/dL (Negative); Urobilinogen,Urine < 2.0 mg/dL (<2.0)
[2022-01-25 06:29] VITALS: BP 114/70
--- NOTE | 2022-01-26 11:28 | Electrocardiograph Report ---
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
== END 2022-01-25 06:15 | disposition home or self-care (01) ==
LOC: ED 22:16
DX: R10.9 Unspecified abdominal pain (principal); R11.2 Nausea with vomiting, unspecified; R07.9 Chest pain, unspecified; I11.0 Hypertensive heart disease with heart failure; I50.9 Heart failure, unspecified; E11.9 Type 2 diabetes mellitus without complications; R56.9 Unspecified convulsions; F31.9 Bipolar disorder, unspecified; I26.99 Other pulmonary embolism without acute cor pulmonale; Z20.2 Contact with and (suspected) exposure to infections with a predominantly sexual mode of transmission
CPT/HCPCS: 36415; 71045; 74176; 76705; 80053; 80185; 81001; 82550; 82553; 83690; 84484; 85025; 85610; 93005; 96372; 99285; J1170; J2405; J2765; J3010

== ENCOUNTER 2022-02-13 09:21 | Emergency (ER) | payer MEDICARE ==
[2022-02-13 09:35] VITALS: BP 128/85
--- NOTE | 2022-02-13 10:15 | XRay Report ---
CHEST 2 VIEWS INDICATION / CLINICAL INFORMATION: Chest Pain. COMPARISON: 01/24/22 FINDINGS: SUPPORT DEVICES: None. HEART / MEDIASTINUM: Heart is of normal size and stable. Mildly ectatic and tortuous thoracic aorta i s unchanged. LUNGS / PLEURA: No significant pulmonary or pleural abnormality. No pneumothorax. ADDITIONAL FINDINGS: No significant additional findings. IMPRESSION: 1. No acute findings. No change. Signer Name: Roxy Caldwell MD Signed: 02/13/2022 10:10 AM Workstation Name: [id number]
[2022-02-13 11:12] LABS: Hematocrit 38.9 % (30.3-42.9); Hemoglobin 12.5 gm/dl (10.1-14.3); Mean Corpuscular HGB Conc 32 % (30-34); Mean Corpuscular Volume 107 fl (79-97); Platelet Count 162 K/mm3 (140-440); Red Blood Count 3.63 M/mm3 (3.65-5.03); Red Cell Distribution Width 13.1 % (13.2-15.2)
[2022-02-13 11:30] LABS: INR 0.97 (0.87-1.13); Partial Thromboplastin Time 28.7 Sec. (24.2-36.6)
[2022-02-13 11:39] LABS: Albumin 3.9 g/dL (3.9-5); Blood Urea Nitrogen 8 mg/dL (7-17); Calcium 9.4 mg/dL (8.4-10.2); Hemolysis Index 25
[2022-02-13 11:43] LABS: Alanine Aminotransferase < 5 units/L (7-56); BUN/Creatinine Ratio 11
[2022-02-13 11:56] LABS: Basophils % (Manual) 0 % (0.0-1.8); Total Cells Counted 100
[2022-02-13 11:57] LABS: Ovalocytes Few; Poikilocytosis 1+
[2022-02-13 11:58] LABS: Large Platelets Rare; Platelet Estimate Consistent w Auto; Target Cells Rare
--- NOTE | 2022-02-13 13:54 | Electrocardiograph Report ---
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
[2022-02-13] MEDS ORDERED: IPRATROPIUM/ALBUTEROL SULFATE 3 ML AMPUL.NEB IH ONE ×2 (16:32)
[2022-02-13] MEDS ORDERED: ONDANSETRON 4 MG/2 ML INJ IV ONE (16:58)
--- NOTE | 2022-02-13 17:18 | Emergency Department Report ---
ED General Adult HPI - General Chief complaint: Chest Pain Stated complaint: CHEST PAIN/SOB PUI?: No Time Seen by Provider: 02/13/22 15:25 Source: patient Mode of arrival: Ambulatory Limitations: No Limitations - History of Present Illness Initial comments: This is a 66-year-old female with medical history of diabetes asthma congestive heart failure denies myocardial infarction coming today with concerns of chest pain that is a stabbing-like sensation for the past 2 days. Patient also endorses being sore and also aching as well. Patient denies anything makes it better but does endorse movement makes it worse. The pain is also reproducible on palpation. Patient denies using cocaine and also denies smoking history. Patient does have a brother who of myocardial infarction at age 4848 years old. Patient also endorsed short of breath. Patient denies any other symptoms denies fever chill night sweat dizziness blur red vision lightheadedness headache tinnitus ear pain runny nose sore throat loss of taste loss of smell palpitation cough abdominal pain nausea vomiting diarrhea constipation joint pain muscle pain new rash and heat or cold intolerance. - Related Data Previous Rx's Medication Instructions Recorded Last Taken Type Glycerin/ Witch Lise Pad [Tucks 1 each TP PRN PRN #1 box 12/21/19 Unknown Rx Pad] ALBUTEROL NEB's [Proventil 0.083% 2.5 mg IH TID PRN #30 neb 01/23/20 Unknown Rx NEBS] Albuterol Sulfate [Proventil Hfa] 2 puff IH Q4HR PRN #1 hfa.aer.ad 01/23/20 Unknown Rx Budesonide/Formoterol Fumarate 2 inhalation IH BID #1 hfa.aer.ad 01/23/20 Unknown Rx [Symbicort 160-4.5 Mcg Inhaler] Elviteg/Cob/Emtri/Tenof Alafen 1 each PO DAILY #30 tablet 01/23/20 Unknown Rx [Genvoya Tablet] Furosemide [Lasix TAB] 40 mg PO QAM #30 tablet 01/23/20 Unknown Rx Genvoya Tablet 1 tab PO DAILY #90 tab 01/23/20 Unknown Rx Insulin NPH/Regular [NovoLIN 70/30] 30 unit SUB-Q BIDDIAB #2 vial 01/23/20 Unknown Rx Pantoprazole [Protonix TAB] 40 mg PO QDAY #30 tablet 01/23/20 Unknown Rx Potassium Chloride [K-Dur] 10 meq PO QDAY #30 tablet 01/23/20 Unknown Rx QUEtiapine [SEROquel] 200 mg PO QHS #90 tablet 01/23/20 Unknown Rx Tiotropium [place] [Spiriva 2 inhalation IH DAILY #1 mist.inhal 01/23/20 Unknown Rx Respimat] amLODIPine 5 mg PO QDAY #30 tablet 01/23/20 Unknown Rx traMADoL [Ultram 50 MG tab] 50 mg PO Q6H PRN #14 tablet 01/23/20 Unknown Rx Albuterol Mdi (or & Nicu Only) 2 puff IH Q4HR PRN #1 inhalation 04/03/20 Unknown Rx [ProAir HFA Inhaler] Azithromycin [Zithromax Z-LUAN] 250 mg PO DAILY #6 tablet 04/03/20 Unknown Rx Benzonatate [Tessalon Perles] 100 mg PO Q8HR PRN #20 capsule 04/03/20 Unknown Rx predniSONE [Deltasone] 20 mg PO DAILY #15 tablet 04/03/20 Unknown Rx Ondansetron [Zofran Odt] 4 mg PO Q8HR PRN #14 tab.rapdis 04/17/21 Unknown Rx traMADoL [Ultram 50 MG tab] 50 mg PO Q6HR PRN #20 tablet 11/29/21 Unknown Rx Azithromycin [Zithromax Z-LUAN] 250 mg PO DAILY 1 Days tab 01/15/22 Unknown Rx Potassium Chloride [K-Dur] 20 meq PO QDAY #5 01/15/22 Unknown Rx guaiFENesin/CODEINE [Robitussin AC] 10 ml PO TID PRN #100 ml 01/15/22 Unknown Rx Famotidine [Pepcid] 20 mg PO BID #30 tablet 01/25/22 Unknown Rx HYDROcodone/APAP 5-325 [[place] 1 - 2 each PO Q6HR PRN #14 tablet 01/25/22 Unknown Rx 5/325] Ondansetron [Zofran ODT TAB] 8 mg PO Q8HR #20 tab.rapdis 01/25/22 Unknown Rx Allergies Allergy/AdvReac Type Severity Reaction Status Date / Time shellfish derived Allergy Severe Shortness Verified 02/13/22 09:36 of Breath ibuprofen [From Motrin] Allergy Mild Shortness Verified 02/13/22 09:36 of Breath aspirin Allergy Itching Verified 02/13/22 09:36 tetracycline Allergy Shortness Verified 02/13/22 09:36 of Breath ED Review of Systems ROS: Stated complaint: CHEST PAIN/SOB Other details as noted in HPI ED Past Medical Hx - Past Medical History Hx Hypertension: Yes Hx Congestive Heart Failure: Yes Hx Diabetes: Yes Hx Pulmonary Embolism: Yes Hx Seizures: Yes Hx Psychiatric Treatment: Yes (bipolar disorder; schziphornia) Hx HIV: Yes (on medication, unknown last CD4 count) Additional medical history: CDIFF, spinal stenosis - Surgical History Additional Surgical History: Hysterectomy - Social History Smoking Status: Never Smoker Substance Use Type: None (Denies illicit drug) - Medications Home Medications: Home Medications Medication Instructions Recorded Confirmed Last Taken Type Glycerin/ Witch Lise Pad [Tucks 1 each TP PRN PRN #1 box 12/21/19 01/22/20 Unknown Rx Pad] ALBUTEROL NEB's [Proventil 0.083% 2.5 mg IH TID PRN #30 neb 01/23/20 Unknown Rx NEBS] Albuterol Sulfate [Proventil Hfa] 2 puff IH Q4HR PRN #1 hfa.aer.ad 01/23/20 Unknown Rx Budesonide/Formoterol Fumarate 2 inhalation IH BID #1 hfa.aer.ad 01/23/20 Unkno wn Rx [Symbicort 160-4.5 Mcg Inhaler] Elviteg/Cob/Emtri/Tenof Alafen 1 each PO DAILY #30 tablet 01/23/20 Unknown Rx [Genvoya Tablet] Furosemide [Lasix TAB] 40 mg PO QAM #30 tablet 01/23/20 Unknown Rx Genvoya Tablet 1 tab PO DAILY #90 tab 01/23/20 Unknown Rx Insulin NPH/Regular [NovoLIN 70/30] 30 unit SUB-Q BIDDIAB #2 vial 01/23/20 Unknown Rx Pantoprazole [Protonix TAB] 40 mg PO QDAY #30 tablet 01/23/20 Unknown Rx Potassium Chloride [K-Dur] 10 meq PO QDAY #30 tablet 01/23/20 Unknown Rx QUEtiapine [SEROquel] 200 mg PO QHS #90 tablet 01/23/20 Unknown Rx Tiotropium [place] [Spiriva 2 inhalation IH DAILY #1 mist.inhal 01/23/20 Unknown Rx Respimat] amLODIPine 5 mg PO QDAY #30 tablet 01/23/20 Unknown Rx traMADoL [Ultram 50 MG tab] 50 mg PO Q6H PRN #14 tablet 01/23/20 Unknown Rx Albuterol Mdi (or & Nicu Only) 2 puff IH Q4HR PRN #1 inhalation 04/03/20 Unknown Rx [ProAir HFA Inhaler] Azithromycin [Zithromax Z-LUAN] 250 mg PO DAILY #6 tablet 04/03/20 Unknown Rx Benzonatate [Tessalon Perles] 100 mg PO Q8HR PRN #20 capsule 04/03/20 Unknown Rx predniSONE [Deltasone] 20 mg PO DAILY #15 tablet 04/03/20 Unknown Rx Ondansetron [Zofran Odt] 4 mg PO Q8HR PRN #14 tab.rapdis 04/17/21 Unknown Rx traMADoL [Ultram 50 MG tab] 50 mg PO Q6HR PRN #20 tablet 11/29/21 Unknown Rx Azithromycin [Zithromax Z-LUAN] 250 mg PO DAILY 1 Days tab 01/15/22 Unknown Rx Potassium Chloride [K-Dur] 20 meq PO QDAY #5 01/15/22 Unknown Rx guaiFENesin/CODEINE [Robitussin AC] 10 ml PO TID PRN #100 ml 01/15/22 Unknown Rx Famotidine [Pepcid] 20 mg PO BID #30 tablet 01/25/22 Unknown Rx HYDROcodone/APAP 5-325 [[place] 1 - 2 each PO Q6HR PRN #14 tablet 01/25/22 Unknown Rx 5/325] Ondansetron [Zofran ODT TAB] 8 mg PO Q8HR #20 tab.rapdis 01/25/22 Unknown Rx ED Physical Exam - General Limitations: No Limitations ED Course Vital Signs 02/13/22 02/13/22 02/13/22 09:28 17:31 19:54 Temperature 96.6 F L Pulse Rate 83 Pulse Rate [ 84 84 Bilateral Throughout] Respiratory 18 Rate Respiratory 18 18 Rate [Bilateral Throughout] Blood Pressure 128/85 [Right] O2 Sat by Pulse 98 Oximetry ED Medical Decision Making - Lab Data Result diagrams: 02/13/22 10:43 02/13/22 10:43 - Medical Decision Making 12 troponin negative and chest x-ray was unremarkable as well. Patient's chest pain is reproducible on palpation and she gets worse. Therefore I doubt this is cardiac etiology. Patient was informed to make a follow-up appoint with primary care provider to be seen within 3 days. Critical care attestation.: If time is entered above; I have spent that time in minutes in the direct care of this critically ill patient, excluding procedure time. ED Disposition Clinical Impression: Non-cardiac chest pain, Tenderness of chest wall Disposition: HOME / SELF CARE / HOMELESS Is pt being admited?: No Does the pt Need Aspirin: No Condition: Stable Instructions: Nonspecific Chest Pain, Adult Additional Instructions: Make a follow-up appointment with your primary care provider to be seen within 3 days for further outpatient evaluation of your noncardiac chest pain. Referrals: PRIMARY CAREMD [Primary Care Provider] - 3-5 Days Time of Disposition: 20:36
[2022-02-13] MEDS ORDERED: MORPHINE 2 MG/1 ML INJ IV ONE (18:50)
[2022-02-13] MEDS ORDERED: KETOROLAC 10 MG TAB PO ONE (19:07)
[2022-02-13] MEDS ORDERED: LEVALBUTEROL 0.63 MG/3 ML NEBU IH ONE ×2 (19:07→19:11)
[2022-02-13] MEDS ORDERED: IPRATROPIUM 0.02% NEBU 2.5 ML IH ONE (19:34)
[2022-02-13] MEDS ORDERED: KETOROLAC 30 MG/1 ML INJ IV ONE (20:19)
== END 2022-02-13 22:16 | disposition home or self-care (01) ==
LOC: ED 09:21
DX: R07.9 Chest pain, unspecified (principal)
CPT/HCPCS: 36415; 71046; 80053; 83880; 84484; 85007; 85025; 85610; 85730; 93005; 94640; 96374; 99284; J1885; J2405; 94644

== ENCOUNTER 2022-03-15 10:04 | Inpatient (IN) | payer MEDICARE ==
[2022-03-15] MEDS ORDERED: IPRATROPIUM/ALBUTEROL SULFATE 3 ML AMPUL.NEB IH ONE (11:17)
[2022-03-15] MEDS ORDERED: CLOPIDOGREL 300 MG TAB PO ONE (11:18)
[2022-03-15] MEDS ORDERED: fentaNYL 100 MCG/2 ML INJ IV ONE (11:18)
[2022-03-15] MEDS ORDERED: ONDANSETRON 4 MG/2 ML INJ IV ONE (11:18)
--- NOTE | 2022-03-15 11:23 | Emergency Department Report ---
HPI - General Chief Complaint: Chest Pain Time Seen by Provider: 03/15/22 11:08 - HPI HPI: Room 23 The patient is a 66-year-old female present with chief complaint of chest pain. Patient states for the past 2 days she has intermittent substernal chest pain described as sharp in nature. Patient also complains of pain from right hip down to the right foot for the same period of time. Patient states she has shortness of breath, nausea/vomiting and diaphoresis associated with her chest pain. Patient currently gives her chest pain score 7/10. Patient states she's never had a stress test or cardiac catheterization ED Past Medical Hx - Past Medical History Hx Hypertension: Yes Hx Congestive Heart Failure: Yes Hx Diabetes: Yes Hx Pulmonary Embolism: Yes Hx Seizures: Yes Hx Psychiatric Treatment: Yes (bipolar disorder; schziphornia) Hx Asthma: Yes Hx HIV: Yes (on medication, unknown last CD4 count) Additional medical history: CDIFF, spinal stenosis - Surgical History Additional Surgical History: Hysterectomy - Family History Family history: no significant - Social History Smoking Status: Never Smoker Substance Use Type: None (Denies illicit drug use) - Medications Home Medications: Home Medications Medication Instructions Recorded Confirmed Last Taken Type Glycerin/ Witch Lise Pad [Tucks 1 each TP PRN PRN #1 box 12/21/19 01/22/20 Unknown Rx Pad] ALBUTEROL NEB's [Proventil 0.083% 2.5 mg IH TID PRN #30 neb 01/23/20 Unknown Rx NEBS] Albuterol Sulfate [Proventil Hfa] 2 puff IH Q4HR PRN #1 hfa.aer.ad 01/23/20 Unknown Rx Budesonide/Formoterol Fumarate 2 inhalation IH BID #1 hfa.aer.ad 01/23/20 Unknown Rx [Symbicort 160-4.5 Mcg Inhaler] Elviteg/Cob/Emtri/Tenof Alafen 1 each PO DAILY #30 tablet 01/23/20 Unknown Rx [Genvoya Tablet] Furosemide [Lasix TAB] 40 mg PO QAM #30 tablet 01/23/20 Unknown Rx Genvoya Tablet 1 tab PO DAILY #90 tab 01/23/20 Unknown Rx Insulin NPH/Regular [NovoLIN 70/30] 30 unit SUB-Q BIDDIAB #2 vial 01/23/20 Unknown Rx Pantoprazole [Protonix TAB] 40 mg PO QDAY #30 tablet 01/23/20 Unknown Rx Potassium Chloride [K-Dur] 10 meq PO QDAY #30 tablet 01/23/20 Unknown Rx QUEtiapine [SEROquel] 200 mg PO QHS #90 tablet 01/23/20 Unknown Rx Tiotropium [place] [Spiriva 2 inhalation IH DAILY #1 mist.inhal 01/23/20 Unknown Rx Respimat] amLODIPine 5 mg PO QDAY #30 tablet 01/23/20 Unknown Rx traMADoL [Ultram 50 MG tab] 50 mg PO Q6H PRN #14 tablet 01/23/20 Unknown Rx Albuterol Mdi (or & Nicu Only) 2 puff IH Q4HR PRN #1 inhalation 04/03/20 Unknown Rx [ProAir HFA Inhaler] Azithromycin [Zithromax Z-LUAN] 250 mg PO DAILY #6 tablet 04/03/20 Unknown Rx Benzonatate [Tessalon Perles] 100 mg PO Q8HR PRN #20 capsule 04/03/20 Unknown Rx predniSONE [Deltasone] 20 mg PO DAILY #15 tablet 04/03/20 Unknown Rx Ondansetron [Zofran Odt] 4 mg PO Q8HR PRN #14 tab.rapdis 04/17/21 Unknown Rx traMADoL [Ultram 50 MG tab] 50 mg PO Q6HR PRN #20 tablet 11/29/21 Unknown Rx Azithromycin [Zithromax Z-LUAN] 250 mg PO DAILY 1 Days tab 01/15/22 Unknown Rx Potassium Chloride [K-Dur] 20 meq PO QDAY #5 01/15/22 Unknown Rx guaiFENesin/CODEINE [Robitussin AC] 10 ml PO TID PRN #100 ml 01/15/22 Unknown Rx Famotidine [Pepcid] 20 mg PO BID #30 tablet 01/25/22 Unknown Rx HYDROcodone/APAP 5-325 [[place] 1 - 2 each PO Q6HR PRN #14 tablet 01/25/22 Unknown Rx 5/325] Ondansetron [Zofran ODT TAB] 8 mg PO Q8HR #20 tab.rapdis 01/25/22 Unknown Rx ED Review of Systems ROS: Stated complaint: CHEST PAIN/CARL Other details as noted in HPI Constitutional: diaphoresis Eyes: denies: eye pain ENT: denies: throat pain Respiratory: shortness of breath Cardiovascular: chest pain Endocrine: no symptoms reported Gastrointestinal: nausea, vomiting Genitourinary: denies: dysuria Musculoskeletal: arthralgia, myalgia. denies: back pain Neurological: denies: headache Physical Exam - Physical Exam Vital Signs: Vital Signs 03/15/22 03/15/22 10:06 10:53 Temperature 98.6 F Pulse Rate 108 H 84 Respiratory 18 18 Rate Blood Pressure 156/96 113/63 [Right] O2 Sat by Pulse 97 100 Oximetry Physical Exam: GENERAL: The patient is well-developed well-nourished female lying on stretcher not appearing to be in acute distress. [] HEENT: Normocephalic. Atraumatic. Extraocular motions are intact. Patient has moist mucous membranes. NECK: Supple. Trachea midline CHEST/LUNGS: Clear to auscultation. There is no respiratory distress noted. HEART/CARDIOVASCULAR: Regular. There is no tachycardia. There is no gallop rub or murmur. 2+ right DP ABDOMEN: Abdomen is soft, nontender. Patient has normal bowel sounds. There is no abdominal distention. SKIN: There is no rash. There is no edema. There is no diaphoresis. NEURO: The patient is awake, alert, and oriented. The patient is cooperative. The patient has no focal neurologic deficits. The patient has normal speech. GCS 15 MUSCULOSKELETAL: There is no evidence of acute injury. ED Course Vital Signs 03/15/22 03/15/22 10:06 10:53 Temperature 98.6 F Pulse Rate 108 H 84 Respiratory 18 18 Rate Blood Pressure 156/96 113/63 [Right] O2 Sat by Pulse 97 100 Oximetry ED Medical Decision Making - Lab Data Result diagrams: 03/15/22 13:00 03/15/22 13:00 Laboratory Tests 03/15/22 03/15/22 03/15/22 11:19 13:00 13:00 WBC 3.8 L RBC 3.28 L Hgb 11.5 Hct 33.9 MCV 103 H MCH 35 H MCHC 34 RDW 13.3 Plt Count 167 Add Manual Diff Complete Total Counted 100 Seg Neutrophils % Percussion Instrument Tuner Seg Neuts % (Manual) 38.0 L Band Neutrophils % 0 Lymphocytes % (Manual) 45.0 H Reactive Lymphs % (Man) 6.0 Monocytes % (Manual) 5.0 Eosinophils % (Manual) 6.0 H Basophils % (Manual) 0 Metamyelocytes % 0 Myelocytes % 0 Promyelocytes % 0 Blast Cells % 0 Nucleated RBC % Not Reportable Seg Neutrophils # Man 1.4 L Band Neutrophils # 0.0 Lymphocytes # (Manual) 1.7 Abs React Lymphs (Man) 0.2 Monocytes # (Manual) 0.2 Eosinophils # (Manual) 0.2 Basophils # (Manual) 0.0 Metamyelocytes # 0.0 Myelocytes # 0.0 Promyelocytes # 0.0 Blast Cells # 0.0 WBC Morphology Not Reportable Hypersegmented Neuts Not Reportable Hyposegmented Neuts Not Reportable Hypogranular Neuts Not Reportable Smudge Cells Not Reportable Toxic Granulation Not Reportable Toxic Vacuolation Not Reportable Dohle Bodies Not Reportable Pelger-Huet Anomaly Not Reportable Susan Rods Not Reportable Platelet Estimate Consistent w auto Clumped Platelets Not Reportable Plt Clumps, EDTA Not Reportable Large Platelets Not Reportable Giant Platelets Not Reportable Platelet Satelliting Not Reportable Plt Morphology Comment Not Reportable RBC Morphology Not Reportable Dimorphic RBCs Not Reportable Polychromasia Not Reportable Hypochromasia Not Reportable Poikilocytosis Not Reportable Anisocytosis Not Reportable Microcytosis Not Reportable Macrocytosis Not Reportable Spherocytes Not Reportable Pappenheimer Bodies Not Reportable Sickle Cells Not Reportable Target Cells Not Reportable Tear Drop Cells Not Reportable Ovalocytes Not Reportable Helmet Cells Not Reportable [place] Bodies Not Reportable [place] Rings Not Reportable [place] Cells Not Reportable Bite Cells Not Reportable Crenated Cell Not Reportable Elliptocytes Few Acanthocytes (Spur) Not Reportable Rouleaux Not Reportable Hemoglobin C Crystals Not Reportable Schistocytes Not Reportable Malaria parasites Not Reportable Barry Bodies Not Reportable Hem Pathologist Commnt No PT 14.1 INR 0.98 APTT 29.5 D-Dimer 334.97 H VBG pH Sodium Potassium Chloride Carbon Dioxide Anion Gap BUN Creatinine Estimated GFR BUN/Creatinine Ratio Glucose Calcium Total Bilirubin AST ALT Alkaline Phosphatase Total Creatine Kinase CK-MB (CK-2) CK-MB (CK-2) Rel Index Troponin T Total Protein Albumin Albumin/Globulin Ratio Urine Color Priscilla Urine Turbidity Slightly-cloudy Urine pH 5.0 Ur Specific [place] 1.028 Urine Protein 100 mg/dl Urine Glucose (UA) Neg Urine Ketones Tr Urine Blood Neg Urine Nitrite Neg Urine Bilirubin Neg Urine Urobilinogen < 2.0 Ur Leukocyte Esterase Mod Urine WBC (Auto) 8.0 H Urine RBC (Auto) 2.0 U Epithel Cells (Auto) 15.0 H Urine Bacteria (Auto) 1+ Ur Transition Epith Cell 1 Urine Mucus 3+ 03/15/22 03/15/22 03/15/22 13:00 13:00 13:00 WBC RBC Hgb Hct MCV MCH MCHC RDW Plt Count Add Manual Diff Total Counted Seg Neutrophils % Seg Neuts % (Manual) Band Neutrophils % Lymphocytes % (Manual) Reactive Lymphs % (Man) Monocytes % (Manual) Eosinophils % (Manual) Basophils % (Manual) Metamyelocytes % Myelocytes % Promyelocytes % Blast Cells % Nucleated RBC % Seg Neutrophils # Man Band Neutrophils # Lymphocytes # (Manual) Abs React Lymphs (Man) Monocytes # (Manual) Eosinophils # (Manual) Basophils # (Manual) Metamyelocytes # Myelocytes # Promyelocytes # Blast Cells # WBC Morphology TNR Hypersegmented Neuts Hyposegmented Neuts Hypogranular Neuts Smudge Cells Toxic Granulation Toxic Vacuolation Dohle Bodies Pelger-Huet Anomaly Susan Rods Platelet Estimate Clumped Platelets Plt Clumps, EDTA Large Platelets Giant Platelets Platelet Satelliting Plt Morphology Comment RBC Morphology Dimorphic RBCs Polychromasia Hypochromasia Poikilocytosis Anisocytosis Microcytosis Macrocytosis Spherocytes Pappenheimer Bodies Sickle Cells Target Cells Tear Drop Cells Ovalocytes Helmet Cells [place] Bodies [place] Rings [place] Cells Bite Cells Crenated Cell Elliptocytes Acanthocytes (Spur) Rouleaux Hemoglobin C Crystals Schistocytes Malaria parasites Barry Bodies Hem Pathologist Commnt PT INR APTT D-Dimer VBG pH Sodium 140 Potassium 3.3 L Chloride 105.8 Carbon Dioxide 21 L Anion Gap 17 BUN 9 Creatinine 0.5 L Estimated GFR > 60 BUN/Creatinine Ratio 18 Glucose 125 H Calcium 8.9 Total Bilirubin 0.30 AST 10 ALT < 5 L Alkaline Phosphatase 94 Total Creatine Kinase 92 CK-MB (CK-2) 1.2 CK-MB (CK-2) Rel Index 1.3 Troponin T < 0.010 Total Protein 7.1 Albumin 3.6 L Albumin/Globulin Ratio 1.0 Urine Color Urine Turbidity Urine pH Ur Specific [place] Urine Protein Urine Glucose (UA) Urine Ketones Urine Blood Urine Nitrite Urine Bilirubin Urine Urobilinogen Ur Leukocyte Esterase Urine WBC (Auto) Urine RBC (Auto) U Epithel Cells (Auto) Urine Bacteria (Auto) Ur Transition Epith Cell Urine Mucus 03/15/22 Unknown WBC RBC Hgb Hct MCV MCH MCHC RDW Plt Count Add Manual Diff Total Counted Seg Neutrophils % Seg Neuts % (Manual) Band Neutrophils % Lymphocytes % (Manual) Reactive Lymphs % (Man) Monocytes % (Manual) Eosinophils % (Manual) Basophils % (Manual) Metamyelocytes % Myelocytes % Promyelocytes % Blast Cells % Nucleated RBC % Seg Neutrophils # Man Band Neutrophils # Lymphocytes # (Manual) Abs React Lymphs (Man) Monocytes # (Manual) Eosinophils # (Manual) Basophils # (Manual) Metamyelocytes # Myelocytes # Promyelocytes # Blast Cells # WBC Morphology Hypersegmented Neuts Hyposegmented Neuts Hypogranular Neuts Smudge Cells Toxic Granulation Toxic Vacuolation Dohle Bodies Pelger-Huet Anomaly Susan Rods Platelet Estimate Clumped Platelets Plt Clumps, EDTA Large Platelets Giant Platelets Platelet Satelliting Plt Morphology Comment RBC Morphology Dimorphic RBCs Polychromasia Hypochromasia Poikilocytosis Anisocytosis Microcytosis Macrocytosis Spherocytes Pappenheimer Bodies Sickle Cells Target Cells Tear Drop Cells Ovalocytes Helmet Cells [place] Bodies [place] Rings [place] Cells Bite Cells Crenated Cell Elliptocytes Acanthocytes (Spur) Rouleaux Hemoglobin C Crystals Schistocytes Malaria parasites Barry Bodies Hem Pathologist Commnt PT INR APTT D-Dimer VBG pH 7.412 Sodium Potassium Chloride Carbon Dioxide Anion Gap BUN Creatinine Estimated GFR BUN/Creatinine Ratio Glucose Calcium Total Bilirubin AST ALT Alkaline Phosphatase Total Creatine Kinase CK-MB (CK-2) CK-MB (CK-2) Rel Index Troponin T Total Protein Albumin Albumin/Globulin Ratio Urine Color Urine Turbidity Urine pH Ur Specific [place] Urine Protein Urine Glucose (UA) Urine Ketones Urine Blood Urine Nitrite Urine Bilirubin Urine Urobilinogen Ur Leukocyte Esterase Urine WBC (Auto) Urine RBC (Auto) U Epithel Cells (Auto) Urine Bacteria (Auto) Ur Transition Epith Cell Urine Mucus - EKG Data -: EKG Interpreted by [facility] EKG shows normal: sinus rhythm Rate: normal - EKG Data When compared to previous EKG there are: previous EKG unavailable Interpretation: other (No ischemic changes seen) - Radiology Data Radiology results: report reviewed (Chest x-ray, VQ scan), image reviewed (Chest x-ray, VQ scan) interpreted by me: Chest x-ray-no definite focal infiltrates, no pneumothorax [address] [address] XRay Report Signed Patient: SIRI JEAN MR# : [id number] : 1955 Acct:[id number] Age/Sex: 66 / F ADM Date: 03/15/22 Loc: ED Attending Dr: Ordering Physician: ESVIN TRAN MD Date of Service: 03/15/22 Procedure(s): XR chest routine 2V Accession Number(s): [id number] cc: ESVIN TRAN MD Fluoro Time In Minutes: CHEST 2 VIEWS INDICATION / CLINICAL INFORMATION: Chest Pain. COMPARISON: 02/13/2022 FINDINGS: SUPPORT DEVICES: None. HEART / MEDIASTINUM: No significant abnormality. LUNGS / PLEURA: No significant pulmonary or pleural abnormality. No pneumothorax. ADDITIONAL FINDINGS: No significant additional findings. IMPRESSION: 1. No acute findings. Signer Name: Cameron Urias MD Signed: 03/15/2022 11:25 AM Workstation Name: [id number] Transcribed By: TL Dictated By: Cameron Urias MD Electronically Authenticated By: Cameron Urias MD Signed Date/Time: 03/15/22 112 DD/ 1125 TD/TT: [address] [address] Nuclear Medicine Report Signed Patient: SIRI JEAN MR# : [id number] : 1955 Acct:[id number] Age/Sex: 66 / F ADM Date: 03/15/22 Loc: ED Attending Dr: Ordering Physician: ESVIN TRAN MD Date of Service: 03/15/22 Procedure(s): NM perfusion only lung scan Accession Number(s): [id number] cc: ESVIN TRAN MD NUCLEAR MEDICINE PERFUSION LUNG SCAN INDICATION: Chest pain. Shortness of breath TECHNIQUE: 5.5 mCi of Tc-99m MAA were given by IV. COMPARISON: Chest radiograph dated today. FINDINGS: PERFUSION: No significant perfusion defects. ADDITIONAL FINDINGS: None. IMPRESSION: 1. Low probability for pulmonary embolism. Signer Name: Cameron Urias MD Signed: 03/15/2022 4:33 PM Workstation Name: [id number] Transcribed By: TL Dictated By: Cameron Urias MD Electronically Authenticated By: Cameron Urias MD Signed Date/Time: 03/15/221632 DD/ 31 TD/TT: - Differential Diagnosis ACS, PE, pericarditis, GERD, anxiety Critical care attestation.: If time is entered above; I have spent that time in minutes in the direct care of this critically ill patient, excluding procedure time. ED Disposition Clinical Impression: Chest pain Disposition: ADMITTED INPATIENT Is pt being admited?: Yes Does the pt Need Aspirin: No Condition: Fair Instructions: Nonspecific Chest Pain, Adult Referrals: PRIMARY CARE, [Primary Care Provider] - 3-5 Days Time of Disposition: 16:46 (Care transferred to hospitalist (Dr. Llanos)) Heart Score - HEART Score History: Moderately suspicious EKG: Normal Age: 45-65 Risk factors: > 3 risk factors or hx of atherosclerotic disease Troponin: < normal limit HEART Score: 4 - EKG Read Time Time EKG Completed: 10:39 EKG Read Time: 10:39
--- NOTE | 2022-03-15 11:29 | XRay Report ---
CHEST 2 VIEWS INDICATION / CLINICAL INFORMATION: Chest Pain. COMPARISON: 02/13/2022 FINDINGS: SUPPORT DEVICES: None. HEART / MEDIASTINUM: No significant abnormality. LUNGS / PLEURA: No significant pulmonary or pleural abnormality. No pneumothorax. ADDITIONAL FINDINGS: No significant additional findings. IMPRESSION: 1. No acute findings. Signer Name: Cameron Urias MD Signed: 03/15/2022 11:25 AM Workstation Name: [id number]
[2022-03-15 12:32] LABS: Bilirubin,Urine NEG (Negative); Blood,Urine NEG (Negative); Color,Urine Amber (Yellow); Urobilinogen,Urine < 2.0 mg/dL (<2.0)
[2022-03-15 12:37] LABS: Bacteria,Urine 1+ /HPF (Negative); Mucus,Urine 3+ /HPF
[2022-03-15 13:25] LABS: Hematocrit 33.9 % (30.3-42.9); Hemoglobin 11.5 gm/dl (10.1-14.3); Mean Corpuscular HGB Conc 34 % (30-34); Mean Corpuscular Volume 103 fl (79-97); Platelet Count 167 K/mm3 (140-440); Red Blood Count 3.28 M/mm3 (3.65-5.03); Red Cell Distribution Width 13.3 % (13.2-15.2)
[2022-03-15 13:35] LABS: INR 0.98 (0.87-1.13)
[2022-03-15 13:36] LABS: Partial Thromboplastin Time 29.5 Sec. (24.2-36.6)
[2022-03-15 13:47] LABS: Creatine Kinase MB 1.2 ng/mL (0.0-4.0)
[2022-03-15 13:49] LABS: Albumin 3.6 g/dL (3.9-5); Blood Urea Nitrogen 9 mg/dL (7-17); Calcium 8.9 mg/dL (8.4-10.2); Hemolysis Index 3
[2022-03-15 13:53] LABS: Alanine Aminotransferase < 5 units/L (7-56); BUN/Creatinine Ratio 18
[2022-03-15 14:35] LABS: Basophils % (Manual) 0 % (0.0-1.8); Total Cells Counted 100
[2022-03-15 14:37] LABS: Platelet Estimate Consistent w Auto
[2022-03-15] MEDS ORDERED: POTASSIUM CHLORIDE ER 20 MEQ TAB PO ONE (15:34)
--- NOTE | 2022-03-15 16:38 | Nuclear Medicine Report ---
NUCLEAR MEDICINE PERFUSION LUNG SCAN INDICATION: Chest pain. Shortness of breath TECHNIQUE: 5.5 mCi of Tc-99m MAA were given by IV. COMPARISON: Chest radiograph dated today. FINDINGS: PERFUSION: No significant perfusion defects. ADDITIONAL FINDINGS: None. IMPRESSION: 1. Low probability for pulmonary embolism. Signer Name: Cameron Urias MD Signed: 03/15/2022 4:33 PM Workstation Name: [id number]
--- NOTE | 2022-03-15 17:21 | History and Physical Report ---
History of Present Illness Chief complaint: My chest hurts History of present illness: 66 YO Female with Obesity Hypoventilation Syndrome, CHF, HTN, PE, HIV Disease, DM, Seizure Disorder, Schizophrenia, Bipolar Disorder, Mild Intermittent Asthma, Spinal Stenosis presents to ED for evaluation. Patient reports "my chest hurts". Patient states that she has experienced chest pain over the past 2 days. Patient states that pain is intermittent but has become more frequent, sharp in nature, worse with exertion, relieved with rest. Patient states that pain is 7/10, associate with shortness of breath, [facility] notified and upon arrival the patient was found to be in distress and transported to [facility] for further evaluation and care. Pt seen and evaluated in ED. lab and imaging studies reviewed. Patient found to have clinical symptoms consistent with angina at rest, as well as diastolic CHF. Patient admitted to telemetry for medical stabilization due to increased likelihood of decompensation. Pt denies fever, chills, palpitations, NVD, Syncope, Trauma, recent ill contacts, unilateral leg swelling, calf pain, prolonged travel/immobility, trauma, individual/family history of DVT/PE, hemoptysis, known ill contacts, or medication noncompliance, or known exposure to COVID-19. Prior admission on 11/28/2021 reviewed. All listed medication reconciled at time of admission. Advanced care planning conducted in ED. Past History Past Medical History: heart failure, HIV/AIDS, hypertension, pulmonary embolism, seizures, other (See HPI) Past Surgical History: hysterectomy Social history: single. denies: smoking, alcohol abuse, prescription drug abuse Family history: diabetes, hypertension Medications and Allergies Allergies Allergy/AdvReac Type Severity Reaction Status Date / Time shellfish derived Allergy Severe Shortness Verified 03/15/22 10:09 of Breath ibuprofen [From Motrin] Allergy Mild Shortness Verified 03/15/22 10:09 of Breath aspirin Allergy Itching Verified 03/15/22 10:09 tetracycline Allergy Shortness Verified 03/15/22 10:09 of Breath Home Medications Medication Instructions Recorded Confirmed Last Taken Type Glycerin/ Witch Lise Pad [Tucks 1 each TP PRN PRN #1 box 12/21/19 01/22/20 Unknown Rx Pad] ALBUTEROL NEB's [Proventil 0.083% 2.5 mg IH TID PRN #30 neb 01/23/20 Unknown Rx NEBS] Albuterol Sulfate [Proventil Hfa] 2 puff IH Q4HR PRN #1 hfa.aer.ad 01/23/20 Unknown Rx Budesonide/Formoterol Fumarate 2 inhalation IH BID #1 hfa.aer.ad 01/23/20 Unknown Rx [Symbicort 160-4.5 Mcg Inhaler] Elviteg/Cob/Emtri/Tenof Alafen 1 each PO DAILY #30 tablet 01/23/20 Unknown Rx [Genvoya Tablet] Furosemide [Lasix TAB] 40 mg PO QAM #30 tablet 01/23/20 Unknown Rx Genvoya Tablet 1 tab PO DAILY #90 tab 01/23/20 Unknown Rx Insulin NPH/Regular [NovoLIN 70/30] 30 unit SUB-Q BIDDIAB #2 vial 01/23/20 Unknown Rx Pantoprazole [Protonix TAB] 40 mg PO QDAY #30 tablet 01/23/20 Unknown Rx Potassium Chloride [K-Dur] 10 meq PO QDAY #30 tablet 01/23/20 Unknown Rx QUEtiapine [SEROquel] 200 mg PO QHS #90 tablet 01/23/20 Unknown Rx Tiotropium [place] [Spiriva 2 inhalation IH DAILY #1 mist.inhal 01/23/20 Unknown Rx Respimat] amLODIPine 5 mg PO QDAY #30 tablet 01/23/20 Unknown Rx traMADoL [Ultram 50 MG tab] 50 mg PO Q6H PRN #14 tablet 01/23/20 Unknown Rx Albuterol Mdi (or & Nicu Only) 2 puff IH Q4HR PRN #1 inhalation 04/03/20 Unknown Rx [ProAir HFA Inhaler] Azithromycin [Zithromax Z-LUAN] 250 mg PO DAILY #6 tablet 04/03/20 Unknown Rx Benzonatate [Tessalon Perles] 100 mg PO Q8HR PRN #20 capsule 04/03/20 Unknown Rx predniSONE [Deltasone] 20 mg PO DAILY #15 tablet 04/03/20 Unknown Rx Ondansetron [Zofran Odt] 4 mg PO Q8HR PRN #14 tab.rapdis 04/17/21 Unknown Rx traMADoL [Ultram 50 MG tab] 50 mg PO Q6HR PRN #20 tablet 11/29/21 Unknown Rx Azithromycin [Zithromax Z-LUAN] 250 mg PO DAILY 1 Days tab 01/15/22 Unknown Rx Potassium Chloride [K-Dur] 20 meq PO QDAY #5 01/15/22 Unknown Rx guaiFENesin/CODEINE [Robitussin AC] 10 ml PO TID PRN #100 ml 01/15/22 Unknown Rx Famotidine [Pepcid] 20 mg PO BID #30 tablet 01/25/22 Unknown Rx HYDROcodone/APAP 5-325 [[place] 1 - 2 each PO Q6HR PRN #14 tablet 01/25/22 Unknown Rx 5/325] Ondansetron [Zofran ODT TAB] 8 mg PO Q8HR #20 tab.rapdis 01/25/22 Unknown Rx Review of Systems Constitutional: weight gain, no weight loss, no fever, no chills Ears, nose, mouth and throat: no ear pain, no tinnitis, no decreased hearing, no nose pain, no nasal congestion Cardiovascular: chest pain, shortness of breath, decreased exercise tolerance Respiratory: no cough, no cough with sputum, no excessive sputum, no shortness of breath Gastrointestinal: no abdominal pain, no nausea, no vomiting, no diarrhea, no constipation, no change in bowel habits Genitourinary Female: no pelvic pain, no flank pain, no dysuria, no urinary frequency, no urgency Rectal: no pain, no incontinence, no bleeding Musculoskeletal: no neck stiffness, no shooting arm pain, no arm numbness/tingling, no low back pain Integumentary: no rash, no pruritis, no jaundice Neurological: no head injury, no transient paralysis, no parathesias, no numbness, no seizures, no tremors Psychiatric: no memory loss, no hypersomnia, no suicidal ideation Endocrine: no cold intolerance, no polyphagia, no polydipsia, no polyuria, no nocturia, no flushing, no weight change Hematologic/Lymphatic: no easy bruising, no easy bleeding Allergic/Immunologic: no urticaria, no wheezing Exam - Constitutional Vitals: Temp Pulse Resp BP Pulse Ox 98.6 F 82 18 106/56 99 03/15/22 10:06 03/15/22 16:02 03/15/22 16:02 03/15/22 16:02 03/15/22 16:02 General appearance: Present: mild distress, obese - EENT Eyes: Present: PERRL ENT: hearing intact, clear oral mucosa - Neck Neck: Present: supple, normal ROM - Respiratory Respiratory effort: normal Respiratory: bilateral: CTA - Cardiovascular Rhythm: irregularly irregular Heart Sounds: Present: S1 & S2. Absent: rub, click - Extremities Extremities: pulses symmetrical Extremity abnormal: edema Peripheral Pulses: within normal limits - Abdominal General gastrointestinal: Present: soft, non-tender, non-distended, normal bowel sounds Female genitourinary: Present: normal - Integumentary Integumentary: Present: clear, warm, dry - Musculoskeletal Musculoskeletal: gait normal, strength equal bilaterally - Psychiatric Psychiatric: appropriate mood/affect, intact judgment & insight - Neurologic Neurologic: CNII-XII intact, moves all extremities HEART Score - HEART Score EKG: Normal Age: 45-65 Risk factors: > 3 risk factors or hx of atherosclerotic disease Troponin: Troponin T < 0.010 ng/mL (0.00-0.029) 03/15/22 13:00 Troponin: < normal limit Results - Labs CBC & Chem 7: 03/15/22 13:00 03/15/22 13:00 Labs: Abnormal lab results 03/15/22 03/15/22 03/15/22 Range/Units 11:19 13:00 13:00 WBC 3.8 L (4.5-11.0) K/mm3 RBC 3.28 L (3.65-5.03) M/mm3 MCV 103 H (79-97) fl MCH 35 H (28-32) pg Seg Neuts % (Manual) 38.0 L (40.0-70.0) % Lymphocytes % (Manual) 45.0 H (13.4-35.0) % Eosinophils % (Manual) 6.0 H (0.0-4.3) % Seg Neutrophils # Man 1.4 L (1.8-7.7) K/mm3 D-Dimer 334.97 H (0-234) ng/mlDDU Potassium (3.6-5.0) mmol/L Carbon Dioxide (22-30) mmol/L Creatinine (0.6-1.2) mg/dL Glucose (65-100) mg/dL ALT (7-56) units/L Albumin (3.9-5) g/dL Urine WBC (Auto) 8.0 H (0.0-6.0) /HPF U Epithel Cells (Auto) 15.0 H (0-13.0) /HPF 03/15/ Range/Units 13:00 WBC (4.5-11.0) K/mm3 RBC (3.65-5.03) M/mm3 MCV (79-97) fl MCH (28-32) pg Seg Neuts % (Manual) (40.0-70.0) % Lymphocytes % (Manual) (13.4-35.0) % Eosinophils % (Manual) (0.0-4.3) % Seg Neutrophils # Man (1.8-7.7) K/mm3 D-Dimer (0-234) ng/mlDDU Potassium 3.3 L (3.6-5.0) mmol/L Carbon Dioxide 21 L (22-30) mmol/L Creatinine 0.5 L (0.6-1.2) mg/dL Glucose 125 H (65-100) mg/dL ALT < 5 L (7-56) units/L Albumin 3.6 L (3.9-5) g/dL Urine WBC (Auto) (0.0-6.0) /HPF U Epithel Cells (Auto) (0-13.0) /HPF Assessment and Plan - Patient Problems (1) Angina at rest Current Visit: Yes Status: Acute Plan to address problem: ACS protocol: Serial cardiac enzymes, EKG, telemetry monitoring, morphine, supplemental oxygen, nitro, oxygen, pain control, cardiology team consulted. Further care and evaluation as per cardiology team. (2) Diastolic CHF Current Visit: Yes Status: Acute Qualifiers: Heart failure chronicity: acute on chronic Qualified Code(s): I50.33 - Acute on chronic diastolic (congestive) heart failure Plan to address problem: Strict I's/O, monitor urine output every shift, daily weight, afterload reduction, blood pressure control, cardiology team consulted. (3) Atrial fibrillation with rapid ventricular response Current Visit: Yes Status: Acute Plan to address problem: Rate control with amiodarone drip, supportive care, cardiology team consulted, further care and evaluation as per cardiology team. (4) HIV (human immunodeficiency virus infection) Current Visit: Yes Status: Acute Plan to address problem: Continue medical management, outpatient infectious disease service follow-up, (5) GERD (gastroesophageal reflux disease) Current Visit: Yes Status: Acute Qualifiers: Esophagitis presence: without esophagitis Qualified Code(s): K21.9 - Gastro-esophageal reflux disease without esophagitis Plan to address problem: PPI therapy, supportive care (6) Obesity hypoventilation syndrome Current Visit: Yes Status: Acute Plan to address problem: Balanced diet, increase physical activity discharge, outpatient pulmonary follow-up for sleep study. (7) Diabetes Current Visit: Yes Status: Acute Plan to address problem: Consistent carbohydrate diet, Accu-Chek, insulin protocol, hypoglycemia protocol (8) Bipolar disorder Current Visit: Yes Status: Acute Qualifiers: Current episode severity: unspecified Plan to address problem: Continue medical management, no acute exacerbation at this time. (9) Metabolic syndrome Current Visit: Yes Status: Acute Plan to address problem: Balanced diet, increase physical activity at discharge, low-cholesterol diet, weight reduction, increase physical activity discharge. Risk factor reduction. (10) DVT prophylaxis Current Visit: Yes Status: Acute Plan to address problem: SCD bilateral lower extremities while in bed (11) Advance care planning Current Visit: Yes Status: Acute Plan to address problem: Disease education data, care plan discussed, diagnoses discussed, prognosis discussed, patient is full code. Patient knowledges understanding and agreement with care plan, +30 minutes. (12) Preventative health care Current Visit: Yes Status: Acute Plan to address problem: Patient counseled regarding medication compliance, risk factor reduction, weight reduction, outpatient follow-up with primary care physician for all risk factor appropriate screening test. An outpatient follow-up with infectious disease service. +30 minutes.
[2022-03-15] MEDS ORDERED: BENZONATATE 100 MG CAP PO PRN (17:25)
[2022-03-15] MEDS ORDERED: DEXTROSE 50% IN WATER (25GM) 50 ML SYRINGE IV PRN (17:27)
[2022-03-15 18:37] LABS: Free T4 (Free Thyroxine) 0.96 ng/dL (0.76-1.46)
[2022-03-15] MEDS ORDERED: AZITHROMYCIN 250 MG TAB PO SCH (20:00)
[2022-03-15] MEDS ORDERED: MORPHINE 4 MG/1 ML INJ IV PRN (20:18)
[2022-03-15] MEDS ORDERED: ALBUTEROL 2.5 MG/3 ML NEBU IH PRN (20:18)
[2022-03-15] MEDS ORDERED: ACETAMINOPHEN 325 MG TAB PO PRN (20:18)
[2022-03-15] MEDS ORDERED: NITROGLYCERIN 0.4 MG TAB SUBL SL PRN (20:20)
[2022-03-15] MEDS: ONDANSETRON 4 MG/2 ML INJ IV PRN (20:38)
[2022-03-15] MEDS ORDERED: FAMOTIDINE 20 MG TAB PO SCH (22:00)
[2022-03-15] MEDS ORDERED: NON-FORMULARY EACH (Budesonide/Formoterol Fumarate [Symbicort 160-4.5 Mcg Inhaler] 10.2 GM IH SCH (22:00)
[2022-03-15] MEDS: EMTRICITABINE 200 MG CAP PO SCH (23:15)
[2022-03-15] MEDS: DOLUTEGRAVIR 50 MG TAB PO SCH (23:16)
[2022-03-15] MEDS: POTASSIUM CHLORIDE ER 10 MEQ TAB PO SCH (23:17)
[2022-03-15] MEDS: TENOFOVIR 300 MG TAB PO SCH (23:18)
[2022-03-16] MEDS: QUEtiapine 200 MG TAB PO SCH ×2 (00:32→21:58)
[2022-03-16 07:56] LABS: Hematocrit 33.1 % (30.3-42.9); Hemoglobin 11.3 gm/dl (10.1-14.3); Mean Corpuscular HGB Conc 34 % (30-34); Mean Corpuscular Volume 104 fl (79-97); Platelet Count 149 K/mm3 (140-440); Red Blood Count 3.19 M/mm3 (3.65-5.03); Red Cell Distribution Width 13.5 % (13.2-15.2)
[2022-03-16 08:13] LABS: Albumin 3.6 g/dL (3.9-5); Blood Urea Nitrogen 7 mg/dL (7-17); Calcium 8.7 mg/dL (8.4-10.2); Hemolysis Index 1
[2022-03-16 08:21] LABS: Alanine Aminotransferase < 5 units/L (7-56); BUN/Creatinine Ratio 12
[2022-03-16] MEDS: INSULIN REGULAR, HUMAN 100 UNITS/1 ML SUB-Q SCH ×5 (08:30→22:00)
[2022-03-16] MEDS: ARFORMOTEROL 15 MCG/2 ML NEBU IH SCH ×3 (08:40→21:06)
[2022-03-16] MEDS: BUDESONIDE 0.5 MG/2 ML NEBU IH SCH ×3 (08:40→21:04)
[2022-03-16] MEDS ORDERED: NON-FORMULARY EACH (Elviteg/Cob/Emtri/Tenof Alafen [Genvoya Tablet] 1 EACH Tablet) PO SCH (10:00)
[2022-03-16] MEDS ORDERED: predniSONE 20 MG TAB PO SCH (10:00)
[2022-03-16] MEDS ORDERED: GENVOYA PO SCH (10:00)
[2022-03-16] MEDS ORDERED: FUROSEMIDE 20 MG/2 ML INJ IV SCH (10:00)
--- NOTE | 2022-03-16 10:02 | Electrocardiograph Report ---
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
[2022-03-16] MEDS: methylPREDNISolone Sod Succinate 125 MG/2 ML INJ IV SCH ×2 (11:28→21:58)
--- NOTE | 2022-03-16 12:23 | Consultation ---
History of Present Illness Consult date: 03/16/22 Requesting physician: TYESHA DAVISON Consult reason: congestive heart failure History of present illness: Patient is 66-year-old female with a past medical history of HIV, hypertension, prior PE, seizure disorder, asthma/COPD, diabetes, who presents to the ED with a complaint of shortness of breath and chest pain x2 days. Patient reports she was in her usual state of health when she suddenly developed shortness of breath and sharp chest pain that was worse with inspiration and palpation. She rates the chest pain at 7 out of 10 and states she has not had any relieving factors. Patient does report that she is also having productive cough over the last several days. She reports that she is chronically short of breath and chronically has dyspnea on exertion and states she is uses home oxygen. At time of interview she reports that she had a breathing treatment in the hospital and her symptoms have improved. At time of interview patient denies palpitations, lightheadedness, diaphoresis, nausea, vomiting patient is previously unknown to our practice. Cardiology is consulted for CHF Past History Past Medical History: heart failure, HIV/AIDS, hypertension, pulmonary embolism, seizures, other (See HPI) Past Surgical History: hysterectomy Social history: single. denies: smoking, alcohol abuse, prescription drug abuse Family history: diabetes, hypertension Medications and Allergies Allergies Allergy/AdvReac Type Severity Reaction Status Date / Time shellfish derived Allergy Severe Shortness Verified 03/15/22 10:09 of Breath ibuprofen [From Motrin] Allergy Mild Shortness Verified 03/15/22 10:09 of Breath aspirin Allergy Itching Verified 03/15/22 10:09 tetracycline Allergy Shortness Verified 03/15/22 10:09 of Breath Home Medications Medication Instructions Recorded Confirmed Last Taken Type Glycerin/ Witch Lise Pad [Tucks 1 each TP PRN PRN #1 box 12/21/19 03/15/22 Unknown Rx Pad] ALBUTEROL NEB's [Proventil 0.083% 2.5 mg IH TID PRN #30 neb 01/23/20 03/15/22 Unknown Rx NEBS] Albuterol Sulfate [Proventil Hfa] 2 puff IH Q4HR PRN #1 hfa.aer.ad 01/23/20 03/15/22 Unknown Rx Budesonide/Formoterol Fumarate 2 inhalation IH BID #1 hfa.aer.ad 01/23/20 03/15/22 Unknown Rx [Symbicort 160-4.5 Mcg Inhaler] Elviteg/Cob/Emtri/Tenof Alafen 1 each PO DAILY #30 tablet 01/23/20 03/15/22 Unknown Rx [Genvoya Tablet] Furosemide [Lasix TAB] 40 mg PO QAM #30 tablet 01/23/20 03/15/22 Unknown Rx Genvoya Tablet 1 tab PO DAILY #90 tab 01/23/20 03/15/22 Unknown Rx Insulin NPH/Regular [NovoLIN 70/30] 30 unit SUB-Q BIDDIAB #2 vial 01/23/20 03/15/22 Unknown Rx Pantoprazole [Protonix TAB] 40 mg PO QDAY #30 tablet 01/23/20 03/15/22 Unknown Rx Potassium Chloride [K-Dur] 10 meq PO QDAY #30 tablet 01/23/20 03/15/22 Unknown Rx QUEtiapine [SEROquel] 200 mg PO QHS #90 tablet 01/23/20 03/15/22 Unknown Rx Tiotropium [place] [Spiriva 2 inhalation IH DAILY #1 mist.inhal 01/23/20 03/15/22 Unknown Rx Respimat] amLODIPine 5 mg PO QDAY #30 tablet 01/23/20 03/15/22 Unknown Rx traMADoL [Ultram 50 MG tab] 50 mg PO Q6H PRN #14 tablet 01/23/20 03/15/22 Unknown Rx Albuterol Mdi (or & Nicu Only) 2 puff IH Q4HR PRN #1 inhalation 04/03/20 03/15/22 Unknown Rx [ProAir HFA Inhaler] Azithromycin [Zithromax Z-LUAN] 250 mg PO DAILY #6 tablet 04/03/20 03/15/22 Unknown Rx Benzonatate [Tessalon Perles] 100 mg PO Q8HR PRN #20 capsule 04/03/20 03/15/22 Unknown Rx predniSONE [Deltasone] 20 mg PO DAILY #15 tablet 04/03/20 03/15/22 Unknown Rx Ondansetron [Zofran Odt] 4 mg PO Q8HR PRN #14 tab.rapdis 04/17/21 03/15/22 Unknown Rx traMADoL [Ultram 50 MG tab] 50 mg PO Q6HR PRN #20 tablet 11/29/21 03/15/22 Unknown Rx Azithromycin [Zithromax Z-LUAN] 250 mg PO DAILY 1 Days tab 01/15/22 03/15/22 Unknown Rx Potassium Chloride [K-Dur] 20 meq PO QDAY #5 01/15/22 03/15/22 Unknown Rx guaiFENesin/CODEINE [Robitussin AC] 10 ml PO TID PRN #100 ml 01/15/22 03/15/22 Unknown Rx Famotidine [Pepcid] 20 mg PO BID #30 tablet 01/25/22 03/15/22 Unknown Rx HYDROcodone/APAP 5-325 [[place] 1 - 2 each PO Q6HR PRN #14 tablet 01/25/22 03/15/22 Unknown Rx 5/325] Ondansetron [Zofran ODT TAB] 8 mg PO Q8HR #20 tab.rapdis 01/25/22 03/15/22 Unknown Rx Active Meds: Active Medications Acetaminophen (Acetaminophen 325 Mg Tab) 650 mg PO Q4H PRN PRN Reason: Pain MILD(1-3)/Fever >100.5/MOYER Albuterol (Albuterol 2.5 Mg/3 Ml Nebu) 2.5 mg IH Q4HRT PRN PRN Reason: Shortness Of Breath Albuterol/Ipratropium (Ipratropium/Albuterol Sulfate 3 Ml Ampul.Neb) 1 ampul IH Q6HRT [facility] Amlodipine Besylate (Amlodipine 5 Mg Tab) 5 mg PO QDAY [facility] Arformoterol Tartrate (Arformoterol 15 Mcg/2 Ml Nebu) 15 mcg IH Q12HRT [facility] Last Admin: 03/16/22 08:40 Dose: 15 mcg Benzonatate (Benzonatate 100 Mg Cap) 100 mg PO Q8HR PRN PRN Reason: Cough Budesonide (Budesonide 0.5 Mg/2 Ml Nebu) 0.5 mg IH Q12HRT [facility] Last Admin: 03/16/22 08:40 Dose: 0.5 mg Dextrose (Dextrose 50% In Water (25gm) 50 Ml Syringe) 50 ml IV Q30MIN PRN; Protocol PRN Reason: Hypoglycemia Dolutegravir Sodium (Dolutegravir 50 Mg Tab) 50 mg PO QDAY [facility] Last Admin: 03/15/22 23:16 Dose: 50 mg Emtricitabine (Emtricitabine 200 Mg Cap) 200 mg PO QDAY [facility] Last Admin: 03/15/22 23:15 Dose: 200 mg Insulin Human Regular (Insulin Regular, Human 100 Units/1 Ml) 0 units SUB-Q ACHS [facility]; Protocol Last Admin: 03/16/22 08:30 Dose: Not Given Methylprednisolone Sodium Succinate (Methylprednisolone Sod Succinate 125 Mg/2 Ml Inj) 60 mg IV Q8HR [facility] Last Admin: 03/16/22 11:28 Dose: 60 mg Montelukast Sodium (Montelukast 10 Mg Tab) 10 mg PO QHS [facility] Morphine Sulfate (Morphine 4 Mg/1 Ml Inj) 2 mg IV Q8H PRN PRN Reason: Pain , Severe (7-10) Last Admin: 03/15/22 20:40 Dose: 2 mg Nitroglycerin (Nitroglycerin 0.4 Mg Tab Subl) 0.4 mg SL .Q5MIN PRN PRN Reason: Chest Pain Ondansetron HCl (Ondansetron 4 Mg/2 Ml Inj) 4 mg IV Q8H PRN PRN Reason: Nausea And Vomiting Last Admin: 03/15/22 20:38 Dose: 4 mg Oxycodone/Acetaminophen (Oxycodone /Acetaminophen 5-325mg Tab) 1 tab PO Q6H PRN PRN Reason: Pain, Moderate (4-6) Pantoprazole Sodium (Pantoprazole 40 Mg Tab) 40 mg PO QDAY [facility] Potassium Chloride (Potassium Chloride Er 10 Meq Tab) 10 meq PO QDAY [facility] Last Admin: 03/15/22 23:17 Dose: 10 meq Quetiapine Fumarate (Quetiapine 200 Mg Tab) 200 mg PO QHS [facility] Last Admin: 03/16/22 00:32 Dose: 200 mg Sodium Chloride (Sodium Chloride 0.9% 10 Ml Flush Syringe) 10 ml IV BID [facility] Last Admin: 03/16/22 11:28 Dose: 10 ml Sodium Chloride (Sodium Chloride 0.9% 10 Ml Flush Syringe) 10 ml IV PRN PRN PRN Reason: LINE FLUSH Tenofovir Disoproxil Fumarate (Tenofovir 300 Mg Tab) 300 mg PO QDAY [facility] Last Admin: 03/15/22 23:18 Dose: 300 mg Review of Systems Constitutional: no weight loss, no weight gain, no fever, no chills Ears, nose, mouth and throat: no sinus pressure, no sinus pain Cardiovascular: chest pain, orthopnea (chronic), shortness of breath, no palpitations, no edema, no syncope Respiratory: shortness of breath, dyspnea on exertion Gastrointestinal: no abdominal pain, no nausea, no vomiting Musculoskeletal: no neck stiffness, no neck pain, no shooting arm pain Integumentary: no rash, no pruritis, no redness Neurological: no head injury, no transient paralysis Psychiatric: no anxiety, no memory loss Endocrine: no cold intolerance, no heat intolerance Hematologic/Lymphatic: no easy bruising, no easy bleeding Physical Examination Vital Signs Temp Pulse Resp BP Pulse Ox 98.6 F 108 H 18 156/96 97 03/15/22 10:06 03/15/22 10:06 03/15/22 10:06 03/15/22 10:06 03/15/22 10:06 General appearance: no acute distress Neck: Positive: trachea midline Cardiac: Positive: Reg Rate and Rhythm Lungs: Positive: Wheezes Neuro: Positive: Grossly Intact Abdomen: Positive: Soft Skin: Negative: Rash, Suspicious Lesions, Ulceration Extremities: Present: upper extr. pulses. Absent: edema Results 03/16/22 07:04 03/16/22 07:04 Cardiac Enzymes 03/15/22 03/15/22 03/16/22 Range/Units 13:00 13:00 07:04 AST 10 10 (5-40) units/L CK-MB (CK-2) 1.2 (0.0-4.0) ng/mL Coagulation 03/15/22 Range/Units 13:00 PT 14.1 (12.2-14.9) Sec. INR 0.98 (0.87-1.13) APTT 29.5 (24.2-36.6) Sec. CBC 03/15/22 03/16/22 Range/Units 13:00 07:04 WBC 3.8 L 3.1 L (4.5-11.0) K/mm3 RBC 3.28 L 3.19 L (3.65-5.03) M/mm3 Hgb 11.5 11.3 (10.1-14.3) gm/dl Hct 33.9 33.1 (30.3-42.9) % Plt Count 167 149 (140-440) K/mm3 Comprehensive Metabolic Panel 03/15/22 03/16/22 Range/Units 13:00 07:04 Sodium 140 142 (137-145) mmol/L Potassium 3.3 L 3.7 (3.6-5.0) mmol/L Chloride 105.8 109.9 H (98-107) mmol/L Carbon Dioxide 21 L 23 (22-30) mmol/L BUN 9 7 (7-17) mg/dL Creatinine 0.5 L 0.6 (0.6-1.2) mg/dL Glucose 125 H 113 H (65-100) mg/dL Calcium 8.9 8.7 (8.4-10.2) mg/dL AST 10 10 (5-40) units/L ALT < 5 L < 5 L (7-56) units/L Alkaline Phosphatase 94 91 (35-129) units/L Total Protein 7.1 6.3 (6.3-8.2) g/dL Albumin 3.6 L 3.6 L (3.9-5) g/dL - Imaging and Cardiology Echo: pending EKG interpretations - Telemetry EKG Rhythm: Sinus Rhythm - EKG Sinus rhythms and dysrhythmias: sinus rhythm Assessment and Plan Patient is 66-year-old female with a past medical history of HIV, hypertension, prior PE, seizure disorder, asthma/COPD, diabetes, who presents to the ED with a complaint of shortness of breath and chest pain x2 days. Atypical chest pain Asthma/COPD Hypertension HIV Diabetes Seizure Bipolar disorder History of PE Echo 10/16/2019-EF 50 to 55%. Abnormal left ventricular diastolic filling is observed consistent with impaired relaxation. Trace aortic regurgitation. Trace mitral regurgitation. Trace tricuspid regurgitation Plan: EKG shows sinus rhythm 97 no acute ischemic changes. Troponins negative x1. Repeat cardiac enzymes pending Patient's chest pain is atypical with pain described as sharp stabbing, worsened with inspiration and palpation Patient appears euvolemic on exam with negative BNP, no bilateral lower extremity edema, and negative CXR. Patient is not acutely in heart failure Suspect shortness of breath and chest pain due to COPD/asthma exacerbation Due to active wheezing unable to perform ischemic eval at this time. Echo pending No BB, BERTO/ARB due to hypotension No asa due to documented allergy Patient seen in conjunction with Dr. Romero who agrees with this plan of care - Patient Problems (1) Bipolar disorder Current Visit: Yes Status: Acute Qualifiers: Current episode severity: unspecified (2) Diabetes Current Visit: Yes Status: Acute (3) HIV (human immunodeficiency virus infection) Current Visit: Yes Status: Acute (4) Obesity hypoventilation syndrome Current Visit: Yes Status: Acute (5) AIDS Current Visit: No Status: Acute (6) Acute exacerbation of COPD with asthma Current Visit: No Status: Acute (7) Morbid obesity with BMI of 40.0-44.9, adult Current Visit: No Status: Acute
--- NOTE | 2022-03-16 13:34 | Progress Note ---
Assessment and Plan Assessment and plan: #Acute asthma exacerbation Starting IV methylprednisolone 60 mg every 6 hours, DuoNebs every 6 hours, and albuterol nebs every 4 hours as needed. Consider pulmonology consult if patient worsens. Starting Singulair 10 mg nightly Continue to monitor #Angina at rest ACS protocol: Serial cardiac enzymes, EKG, telemetry monitoring, morphine, supplemental oxygen, nitro, oxygen, pain control, cardiology team consulted. Further care and evaluation as per cardiology team. #Chronic diastolic heart failurestable Strict I's/O, monitor urine output every shift, daily weight, afterload reduction, blood pressure control, cardiology team consulted. #Atrial fibrillation with RVRresolved Status post amiodarone drip Cardiology consulted; pending recs #HIV Continue home antiretrovirals. Patient will continue to follow with infectious disease in outpatient setting. #GERD Continue home PPI #[id number] type 2 diabetes mellitus Consistent carbohydrate diet, Accu-Chek, insulin protocol, hypoglycemia protocol #Bipolar disorder Continue medical management, no acute exacerbation at this time. #Metabolic syndrome #Obesity hypoventilation syndrome #Morbid obesity #Weight loss counseling #Exercise counseling - BMI 35.5 - Counseled patient on the importance of weight loss, incorporating exercise, and dietary changes (lean meats, fresh fruits and vegetables, and water intake). Patient expresses understanding. - Time: +15 min #Advanced care planning -Disease education conducted, care plan discussed, diagnoses discussed, prognosis discussed, and patient acknowledges understanding with care plan -Time: +30 min Disposition Plan: continue medical management Total Time Spent with Patient (Minutes): 45 minutes History Interval history: No acute events overnight. Hospitalist Physical - Constitutional Vitals: Temp Pulse Resp BP Pulse Ox 97.3 F L 84 18 100/47 96 03/16/22 11:42 03/16/22 11:42 03/16/22 11:42 03/16/22 11:42 03/16/22 11:42 General appearance: Present: no acute distress, well-nourished, obese - EENT Eyes: Present: PERRL, EOM intact ENT: hearing intact, clear oral mucosa, poor dentition - Neck Neck: Present: supple, normal ROM - Respiratory Respiratory effort: normal Respiratory: bilateral: wheezing (2 L nasal cannula) - Cardiovascular Rhythm: regular Heart Sounds: Present: S1 & S2 - Extremities Extremities: no ischemia, pulses intact, pulses symmetrical, No edema, normal temperature, normal color Peripheral Pulses: within normal limits - Abdominal General gastrointestinal: soft, non-tender, non-distended, normal bowel sounds - Integumentary Integumentary: Present: clear, warm, dry - Psychiatric Psychiatric: appropriate mood/affect, cooperative - Neurologic Neurologic: CNII-XII intact - Allied Health Allied health notes reviewed: nursing HEART Score - HEART Score EKG: Normal Age: 45-65 Risk factors: > 3 risk factors or hx of atherosclerotic disease Troponin: Troponin T < 0.010 ng/mL (0.00-0.029) 03/15/22 13:00 Troponin: < normal limit Results - Labs CBC & Chem 7: 03/16/22 07:04 03/16/22 07:04 Labs: Laboratory Last Values WBC 3.1 K/mm3 (4.5-11.0) L 03/16/22 07:04 RBC 3.19 M/mm3 (3.65-5.03) L 03/16/22 07:04 Hgb 11.3 gm/dl (10.1-14.3) 03/16/22 07:04 Hct 33.1 % (30.3-42.9) 03/16/22 07:04 MCV 104 fl (79-97) H 03/16/22 07:04 MCH 35 pg (28-32) H 03/16/22 07:04 MCHC 34 % (30-34) 03/16/22 07:04 RDW 13.5 % (13.2-15.2) 03/16/22 07:04 Plt Count 149 K/mm3 (140-440) 03/16/22 07:04 Add Manual Diff Complete 03/15/22 13:00 Total Counted 100 03/15/22 13:00 Seg Neutrophils % Global Marketing Specialist 03/15/22 13:00 Seg Neuts % (Manual) 38.0 % (40.0-70.0) L 03/15/22 13:00 Band Neutrophils % 0 % 03/15/22 13:00 Lymphocytes % (Manual) 45.0 % (13.4-35.0) H 03/15/22 13:00 Reactive Lymphs % (Man) 6.0 % 03/15/22 13:00 Monocytes % (Manual) 5.0 % (0.0-7.3) 03/15/22 13:00 Eosinophils % (Manual) 6.0 % (0.0-4.3) H 03/15/22 13:00 Basophils % (Manual) 0 % (0.0-1.8) 03/15/22 13:00 Metamyelocytes % 0 % 03/15/22 13:00 Myelocytes % 0 % 03/15/22 13:00 Promyelocytes % 0 % 03/15/22 13:00 Blast Cells % 0 % 03/15/22 13:00 Nucleated RBC % Not Reportable 03/15/22 13:00 Seg Neutrophils # Man 1.4 K/mm3 (1.8-7.7) L 03/15/22 13:00 Band Neutrophils # 0.0 K/mm3 03/15/22 13:00 Lymphocytes # (Manual) 1.7 K/mm3 (1.2-5.4) 03/15/22 13:00 Abs React Lymphs (Man) 0.2 K/mm3 03/15/22 13:00 Monocytes # (Manual) 0.2 K/mm3 (0.0-0.8) 03/15/22 13:00 Eosinophils # (Manual) 0.2 K/mm3 (0.0-0.4) 03/15/22 13:00 Basophils # (Manual) 0.0 K/mm3 (0.0-0.1) 03/15/22 13:00 Metamyelocytes # 0.0 K/mm3 03/15/22 13:00 Myelocytes # 0.0 K/mm3 03/15/22 13:00 Promyelocytes # 0.0 K/mm3 03/15/22 13:00 Blast Cells # 0.0 K/mm3 03/15/22 13:00 WBC Morphology Not Reportable 03/15/22 13:00 WBC Morphology TNR 03/15/22 13:00 Hypersegmented Neuts Not Reportable 03/15/22 13:00 Hyposegmented Neuts Not Reportable 03/15/22 13:00 Hypogranular Neuts Not Reportable 03/15/22 13:00 Smudge Cells Not Reportable 03/15/22 13:00 Toxic Granulation Not Reportable 03/15/22 13:00 Toxic Vacuolation Not Reportable 03/15/22 13:00 Dohle Bodies Not Reportable 03/15/22 13:00 Pelger-Huet Anomaly Not Reportable 03/15/22 13:00 Susan Rods Not Reportable 03/15/22 13:00 Platelet Estimate Consistent w auto 03/15/22 13:00 Clumped Platelets Not Reportable 03/15/22 13:00 Plt Clumps, EDTA Not Reportable 03/15/22 13:00 Large Platelets Not Reportable 03/15/22 13:00 Giant Platelets Not Reportable 03/15/22 13:00 Platelet Satelliting Not Reportable 03/15/22 13:00 Plt Morphology Comment Not Reportable 03/15/22 13:00 RBC Morphology Not Reportable 03/15/22 13:00 Dimorphic RBCs Not Reportable 03/15/22 13:00 Polychromasia Not Reportable 03/15/22 13:00 Hypochromasia Not Reportable 03/15/22 13:00 Poikilocytosis Not Reportable 03/15/22 13:00 Anisocytosis Not Reportable 03/15/22 13:00 Microcytosis Not Reportable 03/15/22 13:00 Macrocytosis Not Reportable 03/15/22 13:00 Spherocytes Not Reportable 03/15/22 13:00 Pappenheimer Bodies Not Reportable 03/15/22 13:00 Sickle Cells Not Reportable 03/15/22 13:00 Target Cells Not Reportable 03/15/22 13:00 Tear Drop Cells Not Reportable 03/15/22 13:00 Ovalocytes Not Reportable 03/15/22 13:00 Helmet Cells Not Reportable 03/15/22 13:00 Ochoa-Rosston Bodies Not Reportable 03/15/22 13:00 [place] Rings Not Reportable 03/15/22 13:00 [place] Cells Not Reportable 03/15/22 13:00 Bite Cells Not Reportable 03/15/22 13:00 Crenated Cell Not Reportable 03/15/22 13:00 Elliptocytes Few 03/15/22 13:00 Acanthocytes (Spur) Not Reportable 03/15/22 13:00 Rouleaux Not Reportable 03/15/22 13:00 Hemoglobin C Crystals Not Reportable 03/15/22 13:00 Schistocytes Not Reportable 03/15/22 13:00 Malaria parasites Not Reportable 03/15/22 13:00 Barry Bodies Not Reportable 03/15/22 13:00 Hem Pathologist Commnt No 03/15/22 13:00 PT 14.1 Sec. (12.2-14.9) 03/15/22 13:00 INR 0.98 (0.87-1.13) 03/15/22 13:00 APTT 29.5 Sec. (24.2-36.6) 03/15/22 13:00 D-Dimer 334.97 ng/mlDDU (0-234) H 03/15/22 13:00 VBG pH 7.412 (7.320-7.420) 03/15/22 Unknown Sodium 142 mmol/L (137-145) 03/16/22 07:04 Potassium 3.7 mmol/L (3.6-5.0) 03/16/22 07:04 Chloride 109.9 mmol/L (98-107) H 03/16/22 07:04 Carbon Dioxide 23 mmol/L (22-30) 03/16/22 07:04 Anion Gap 13 mmol/L 03/16/22 07:04 BUN 7 mg/dL (7-17) 03/16/22 07:04 Creatinine 0.6 mg/dL (0.6-1.2) 03/16/22 07:04 Estimated GFR > 60 ml/min 03/16/22 07:04 BUN/Creatinine Ratio 12 % 03/16/22 07:04 Glucose 113 mg/dL (65-100) H 03/16/22 07:04 POC Glucose 114 mg/dL (70-105) H 03/16/22 11:42 Calcium 8.7 mg/dL (8.4-10.2) 03/16/22 07:04 Magnesium 1.70 mg/dL (1.7-2.3) 03/15/22 17:36 Total Bilirubin 0.30 mg/dL (0.1-1.2) 03/16/22 07:04 AST 10 units/L (5-40) 03/16/22 07:04 ALT < 5 units/L (7-56) L 03/16/22 07:04 Alkaline Phosphatase 91 units/L (35-129) 03/16/22 07:04 Total Creatine Kinase 92 units/L (30-135) 03/15/22 13:00 CK-MB (CK-2) 1.2 ng/mL (0.0-4.0) 03/15/22 13:00 CK-MB (CK-2) Rel Index 1.3 (0-4) 03/15/22 13:00 Troponin T < 0.010 ng/mL (0.00-0.029) 03/15/22 13:00 NT-Pro-B Natriuret Pep 164.4 pg/mL (0-900) 03/15/22 17:36 Total Protein 6.3 g/dL (6.3-8.2) 03/16/22 07:04 Albumin 3.6 g/dL (3.9-5) L 03/16/22 07:04 Albumin/Globulin Ratio 1.3 % 03/16/22 07:04 TSH 3.800 mlU/mL (0.270-4.200) 03/15/22 17:36 Free T4 0.96 ng/dL (0.76-1.46) 03/15/22 17:36 Urine Color Priscilla (Yellow) 03/15/22 11:19 Urine Turbidity Slightly-cloudy (Clear) 03/15/22 11:19 Urine pH 5.0 (5.0-7.0) 03/15/22 11:19 Ur Specific [place] 1.028 (1.003-1.030) 03/15/22 11:19 Urine Protein 100 mg/dl mg/dL (Negative) 03/15/22 11:19 Urine Glucose (UA) Neg mg/dL (Negative) 03/15/22 11:19 Urine Ketones Tr mg/dL (Negative) 03/15/22 11:19 Urine Blood Neg (Negative) 03/15/22 11:19 Urine Nitrite Neg (Negative) 03/15/22 11:19 Urine Bilirubin Neg (Negative) 03/15/22 11:19 Urine Urobilinogen < 2.0 mg/dL (<2.0) 03/15/22 11:19 Ur Leukocyte Esterase Mod (Negative) 03/15/22 11:19 Urine WBC (Auto) 8.0 /HPF (0.0-6.0) H 03/15/22 11:19 Urine RBC (Auto) 2.0 /HPF (0.0-6.0) 03/15/22 11:19 U Epithel Cells (Auto) 15.0 /HPF (0-13.0) H 03/15/22 11:19 Urine Bacteria (Auto) 1+ /HPF (Negative) 03/15/22 11:19 Ur Transition Epith Cell 1 /HPF 03/15/22 11:19 Urine Mucus 3+ /HPF 03/15/22 11:19 Rodrigues/IV: Voiding Method External Female Catheter Active Medications - Current Medications Current Medications: Generic Name Dose Route Start Last Admin Trade Name Freq PRN Reason Stop Dose Admin Acetaminophen 650 mg 03/15/22 20:18 Acetaminophen 325 Mg Tab PO Q4H PRN Pain MILD(1-3)/Fever >100.5/MOYER Albuterol 2.5 mg 03/15/22 20:18 Albuterol 2.5 Mg/3 Ml Nebu IH Q4HRT PRN Shortness Of Breath Albuterol/Ipratropium 1 ampul 03/16/22 09:30 Ipratropium/Albuterol Sulfate 3 Ml Ampul.Neb IH Q6HRT SKYLER Amlodipine Besylate 5 mg 03/16/22 10:00 Amlodipine 5 Mg Tab PO QDAY SKYLER Arformoterol Tartrate 15 mcg 03/15/22 20:00 03/16/22 08:40 Arformoterol 15 Mcg/2 Ml Nebu IH 15 mcg Q12HRT SKYLER Administration Benzonatate 100 mg 03/15/22 17:25 Benzonatate 100 Mg Cap PO Q8HR PRN Cough Budesonide 0.5 mg 03/15/22 20:00 03/16/22 08:40 Budesonide 0.5 Mg/2 Ml Nebu IH 0.5 mg Q12HRT SKYLER Administration Dextrose 50 ml 03/15/22 17:27 Dextrose 50% In Water (25gm) 50 Ml Syringe IV Q30MIN PRN Hypoglycemia Protocol Dolutegravir Sodium 50 mg 03/16/22 10:00 03/15/22 23:16 Dolutegravir 50 Mg Tab PO 50 mg QDAY SKYLER Administration Emtricitabine 200 mg 03/16/22 10:00 03/15/22 23:15 Emtricitabine 200 Mg Cap PO 200 mg QDAY SYKLER Administration Insulin Human Regular 0 units 03/15/22 22:00 03/16/22 08:30 Insulin Regular, Human 100 Units/1 Ml SUB-Q Not Given ACHS SKYLER Protocol Methylprednisolone Sodium Succinate 60 mg 03/16/22 10:00 03/16/22 11:28 Methylprednisolone Sod Succinate 125 Mg/2 Ml Inj IV 60 mg Q8HR SKYLER Administration Montelukast Sodium 10 mg 03/16/22 22:00 Montelukast 10 Mg Tab PO QHS SKYLER Morphine Sulfate 2 mg 03/15/22 20:18 03/15/22 20:40 Morphine 4 Mg/1 Ml Inj IV 2 mg Q8H PRN Administration Pain , Severe (7-10) Nitroglycerin 0.4 mg 03/15/22 20:20 Nitroglycerin 0.4 Mg Tab Subl SL .Q5MIN PRN Chest Pain Ondansetron HCl 4 mg 03/15/22 20:18 03/15/22 20:38 Ondansetron 4 Mg/2 Ml Inj IV 4 mg Q8H PRN Administration Nausea And Vomiting Oxycodone/Acetaminophen 1 tab 03/15/22 20:18 Oxycodone /Acetaminophen 5-325mg Tab PO Q6H PRN Pain, Moderate (4-6) Pantoprazole Sodium 40 mg 03/16/22 10:00 Pantoprazole 40 Mg Tab PO QDAY SKYLER Potassium Chloride 10 meq 03/16/22 10:00 03/15/22 23:17 Potassium Chloride Er 10 Meq Tab PO 10 meq QDAY SKYLER Administration Quetiapine Fumarate 200 mg 03/15/22 22:00 03/16/22 00:32 Quetiapine 200 Mg Tab PO 200 mg QHS SKYLER Administration Sodium Chloride 10 ml 03/15/22 22:00 03/16/22 11:28 Sodium Chloride 0.9% 10 Ml Flush Syringe IV 10 ml BID SKYLER Administration Sodium Chloride 10 ml 03/15/22 20:18 Sodium Chloride 0.9% 10 Ml Flush Syringe IV PRN PRN LINE FLUSH Tenofovir Disoproxil Fumarate 300 mg 03/16/22 10:00 03/15/22 23:18 Tenofovir 300 Mg Tab PO 300 mg QDAY SKYLER Administration
[2022-03-16] MEDS: IPRATROPIUM/ALBUTEROL SULFATE 3 ML AMPUL.NEB IH SCH ×3 (14:29→21:03)
[2022-03-16] MEDS: EMTRICITABINE 200 MG CAP PO SCH (14:57)
[2022-03-16] MEDS: PANTOPRAZOLE 40 MG TAB PO SCH (14:57)
[2022-03-16] MEDS: POTASSIUM CHLORIDE ER 10 MEQ TAB PO SCH (14:57)
[2022-03-16] MEDS: TENOFOVIR 300 MG TAB PO SCH (14:57)
[2022-03-16] MEDS: DOLUTEGRAVIR 50 MG TAB PO SCH (14:57)
[2022-03-16] MEDS: amLODIPine 5 MG TAB PO SCH (14:58)
[2022-03-16] MEDS: oxyCODONE /ACETAMINOPHEN 5-325MG TAB PO PRN (16:20)
[2022-03-16] MEDS: ONDANSETRON 4 MG/2 ML INJ IV PRN (18:36)
[2022-03-16] MEDS: MONTELUKAST 10 MG TAB PO SCH (21:58)
[2022-03-17] MEDS: IPRATROPIUM/ALBUTEROL SULFATE 3 ML AMPUL.NEB IH SCH ×4 (02:26→21:47)
[2022-03-17] MEDS: methylPREDNISolone Sod Succinate 125 MG/2 ML INJ IV SCH ×3 (03:49→13:21)
[2022-03-17 06:51] LABS: Blood Urea Nitrogen 11 mg/dL (7-17); Calcium 8.8 mg/dL (8.4-10.2); Hemolysis Index 43
[2022-03-17 06:52] LABS: BUN/Creatinine Ratio 18
[2022-03-17] MEDS: INSULIN REGULAR, HUMAN 100 UNITS/1 ML SUB-Q SCH ×4 (08:46→21:42)
[2022-03-17] MEDS: BUDESONIDE 0.5 MG/2 ML NEBU IH SCH ×2 (09:16→21:48)
[2022-03-17] MEDS: ARFORMOTEROL 15 MCG/2 ML NEBU IH SCH ×2 (09:16→21:47)
[2022-03-17] MEDS: amLODIPine 5 MG TAB PO SCH (10:32)
[2022-03-17] MEDS: ONDANSETRON 4 MG/2 ML INJ IV PRN ×2 (10:32→21:35)
[2022-03-17] MEDS: PANTOPRAZOLE 40 MG TAB PO SCH (10:32)
[2022-03-17] MEDS: POTASSIUM CHLORIDE ER 10 MEQ TAB PO SCH (10:33)
[2022-03-17] MEDS: DOLUTEGRAVIR 50 MG TAB PO SCH (10:33)
[2022-03-17] MEDS: EMTRICITABINE 200 MG CAP PO SCH (10:33)
[2022-03-17] MEDS: oxyCODONE /ACETAMINOPHEN 5-325MG TAB PO PRN ×3 (10:38→23:13)
--- NOTE | 2022-03-17 11:58 | Progress Note ---
Assessment and Plan Patient is 66-year-old female with a past medical history of HIV, hypertension, prior PE, seizure disorder, asthma/COPD, diabetes, who presents to the ED with a complaint of shortness of breath and chest pain x2 days. Atypical chest pain Asthma/COPD Hypertension HIV Diabetes Seizure Bipolar disorder History of PE Echo 10/16/2019-EF 50 to 55%. Abnormal left ventricular diastolic filling is observed consistent with impaired relaxation. Trace aortic regurgitation. Trace mitral regurgitation. Trace tricuspid regurgitation Echo 03/16/2022- 55 to 60% borderline concentric LVH. Right ventricle is mildly dilated. Right ventricle systolic function is normal. No pericardial effusion Plan: Patient's chest pain was atypical with pain described as sharp stabbing, worsened with inspiration and palpation. Patient currently chest pain-free Patient appears euvolemic on exam with negative BNP, no bilateral lower extremity edema, and negative CXR. Patient is not acutely in heart failure Patient had normal echo Suspect shortness of breath and chest pain due to COPD/asthma exacerbation Due to active wheezing unable to perform ischemic eval at this time. No BB, BERTO/ARB due to hypotension No asa due to documented allergy Cardiac status otherwise stable. Will see as needed Patient follow-up with their primary care provider in 1 to 2 weeks after discharge Patient seen in conjunction with Dr. Romero who agrees with this plan of care - Patient Problems (1) Bipolar disorder Current Visit: Yes Status: Acute Qualifiers: Current episode severity: unspecified (2) Diabetes Current Visit: Yes Status: Acute (3) HIV (human immunodeficiency virus infection) Current Visit: Yes Status: Acute (4) Obesity hypoventilation syndrome Current Visit: Yes Status: Acute (5) AIDS Current Visit: No Status: Acute (6) Acute exacerbation of COPD with asthma Current Visit: No Status: Acute (7) Morbid obesity with BMI of 40.0-44.9, adult Current Visit: No Status: Acute Subjective Date of service: 03/17/22 Principal diagnosis: Asthma exacerbation Interval history: Patient resting in bed in no acute distress. Patient reports being chest pain- free Sinus 80s on monitor with no event Objective Vital Signs Temp Pulse Pulse Resp Resp BP Pulse Ox 03/17/22 09:17 100 03/17/22 08:00 81 19 03/17/22 07:31 97.6 F 76 18 149/80 99 03/17/22 04:04 97.9 F 85 18 97/54 99 07/26/22 03:33 20 98 03/16/22 23:46 98.1 F 88 18 114/67 100 03/16/22 21:10 100 03/16/22 21:09 88 20 03/16/22 20:45 88 03/16/22 19:47 122.0 F H 83 20 114/73 99 03/16/22 16:42 98.6 F 93 H 17 133/73 98 03/16/22 14:30 87 17 - Physical Examination General: No Apparent Distress Neck: Positive: trachea midline Cardiac: Positive: Reg Rate and Rhythm Lungs: Positive: Wheezes Neuro: Positive: Grossly Intact Abdomen: Positive: Soft Skin: Negative: Rash, Suspicious Lesions, Ulceration Extremities: Present: upper extr. pulses. Absent: edema - Labs and Meds Comprehensive Metabolic Panel 03/17/22 Range/Units 06:09 Sodium 134 L D (137-145) mmol/L Potassium 4.3 (3.6-5.0) mmol/L Chloride 105.1 (98-107) mmol/L Carbon Dioxide 22 (22-30) mmol/L BUN 11 (7-17) mg/dL Creatinine 0.6 (0.6-1.2) mg/dL Glucose 250 H (65-100) mg/dL Calcium 8.8 (8.4-10.2) mg/dL - Imaging and Cardiology Echo: report reviewed - Telemetry EKG Rhythm: Sinus Rhythm - EKG Sinus rhythms and dysrhythmias: sinus rhythm
--- NOTE | 2022-03-17 12:33 | Electrocardiograph Report ---
[facility] Test Date: 2022-03-15 Test Time: 21:26:45 Pat Name: SIRI JEAN Department: Room: A468 1 Gender: F Sas Bi Developer: ADAM : 1955 Requested By: TYESHA DAVISON Order Number: [id number] Reading MD: Choco Alfaro Measurements Intervals [place] Rate: 88 P: -42 MT: 131 QRS: 6 QRSD: 80 T: 33 QT: 391 QTc: 474 Interpretive Statements Sinus rhythm Compared to ECG 03/15/2022 10:39:31 No significant changes Electronically Signed On 03-17-2022 12:33:25 EDT by Choco Alfaro
[2022-03-17] MEDS: TENOFOVIR 300 MG TAB PO SCH (13:20)
--- NOTE | 2022-03-17 15:23 | Progress Note ---
Assessment and Plan Assessment and plan: #Acute asthma exacerbation Decreasing IV methylprednisolone 60 mg to every 12 hours, DuoNebs every 6 hours, and albuterol nebs every 4 hours as needed. Consider pulmonology consult if patient worsens. Continue Singulair 10 mg nightly Continue to monitor #Angina at restresolved ACS protocol: Serial cardiac enzymes, EKG, telemetry monitoring, morphine, supplemental oxygen, nitro, oxygen, pain control, cardiology team consulted. Further care and evaluation as per cardiology team. #Chronic diastolic heart failurestable Strict I's/O, monitor urine output every shift, daily weight, afterload reduction, blood pressure control, cardiology team consulted. #Atrial fibrillation with RVRresolved Status post amiodarone drip Cardiology consulted; pending recs #HIV Continue home antiretrovirals. Patient will continue to follow with infectious disease in outpatient setting. #GERD Continue home PPI #Rwn-vkhpbhd-fjnvvfkiv type 2 diabetes mellitus Consistent carbohydrate diet, Accu-Chek, insulin protocol, hypoglycemia protocol #Bipolar disorder Continue medical management, no acute exacerbation at this time. #Metabolic syndrome #Obesity hypoventilation syndrome #Morbid obesity #Weight loss counseling #Exercise counseling - BMI 35.5 - Counseled patient on the importance of weight loss, incorporating exercise, and dietary changes (lean meats, fresh fruits and vegetables, and water intake). Patient expresses understanding. - Time: +15 min #Advanced care planning -Disease education conducted, care plan discussed, diagnoses discussed, prognosis discussed, and patient acknowledges understanding with care plan -Time: +30 min #Discharge planning - Patient is pending resolution of asthma exacerbation - Case management has been made aware. - Discharge is tentatively 24-48 hours Disposition Plan: Pending possible discharge home tomorrow Total Time Spent with Patient (Minutes): 45 minutes History Interval history: No acute events overnight. Hospitalist Physical - Constitutional Vitals: Temp Pulse Resp BP Pulse Ox 97.4 F L 84 20 107/66 98 03/17/22 11:31 03/17/22 11:31 03/17/22 12:00 03/17/22 11:03/17/22 12:00 General appearance: Present: no acute distress, well-nourished, obese - EENT Eyes: Present: PERRL, EOM intact ENT: hearing intact, clear oral mucosa, dentition normal - Neck Neck: Present: supple, normal ROM - Respiratory Respiratory effort: normal Respiratory: bilateral: wheezing (On 1 L nasal cannula) - Cardiovascular Rhythm: regular Heart Sounds: Present: S1 & S2 - Extremities Extremities: no ischemia, pulses intact, pulses symmetrical, No edema, normal temperature, normal color Peripheral Pulses: within normal limits - Abdominal General gastrointestinal: soft, non-tender, non-distended, normal bowel sounds - Integumentary Integumentary: Present: clear, warm, dry - Psychiatric Psychiatric: appropriate mood/affect, cooperative, other (Limited insight in regards to her medical condition) - Neurologic Neurologic: CNII-XII intact, moves all extremities - Allied Health Allied health notes reviewed: nursing HEART Score - HEART Score EKG: Normal Age: 45-65 Risk factors: > 3 risk factors or hx of atherosclerotic disease Troponin: Troponin T < 0.010 ng/mL (0.00-0.029) 03/15/22 13:00 Troponin: < normal limit Results - Labs CBC & Chem 7: 03/16/22 07:04 03/17/22 06:09 Labs: Laboratory Last Values WBC 3.1 K/mm3 (4.5-11.0) L 03/16/22 07:04 RBC 3.19 M/mm3 (3.65-5.03) L 03/16/22 07:04 Hgb 11.3 gm/dl (10.1-14.3) 03/16/22 07:04 Hct 33.1 % (30.3-42.9) 03/16/22 07:04 MCV 104 fl (79-97) H 03/16/22 07:04 MCH 35 pg (28-32) H 03/16/22 07:04 MCHC 34 % (30-34) 03/16/22 07:04 RDW 13.5 % (13.2-15.2) 03/16/22 07:04 Plt Count 149 K/mm3 (140-440) 03/16/22 07:04 Add Manual Diff Complete 03/15/22 13:00 Total Counted 100 03/15/22 13:00 Seg Neutrophils % Blasting Machine Operator 03/15/22 13:00 Seg Neuts % (Manual) 38.0 % (40.0-70.0) L 03/15/22 13:00 Band Neutrophils % 0 % 03/15/22 13:00 Lymphocytes % (Manual) 45.0 % (13.4-35.0) H 03/15/22 13:00 Reactive Lymphs % (Man) 6.0 % 03/15/22 13:00 Monocytes % (Manual) 5.0 % (0.0-7.3) 03/15/22 13:00 Eosinophils % (Manual) 6.0 % (0.0-4.3) H 03/15/22 13:00 Basophils % (Manual) 0 % (0.0-1.8) 03/15/22 13:00 Metamyelocytes % 0 % 03/15/22 13:00 Myelocytes % 0 % 03/15/22 13:00 Promyelocytes % 0 % 03/15/22 13:00 Blast Cells % 0 % 03/15/22 13:00 Nucleated RBC % Not Reportable 03/15/22 13:00 Seg Neutrophils # Man 1.4 K/mm3 (1.8-7.7) L 03/15/22 13:00 Band Neutrophils # 0.0 K/mm3 03/15/22 13:00 Lymphocytes # (Manual) 1.7 K/mm3 (1.2-5.4) 03/15/22 13:00 Abs React Lymphs (Man) 0.2 K/mm3 03/15/22 13:00 Monocytes # (Manual) 0.2 K/mm3 (0.0-0.8) 03/15/22 13:00 Eosinophils # (Manual) 0.2 K/mm3 (0.0-0.4) 03/15/22 13:00 Basophils # (Manual) 0.0 K/mm3 (0.0-0.1) 03/15/22 13:00 Metamyelocytes # 0.0 K/mm3 03/15/22 13:00 Myelocytes # 0.0 K/mm3 03/15/22 13:00 Promyelocytes # 0.0 K/mm3 03/15/22 13:00 Blast Cells # 0.0 K/mm3 03/15/22 13:00 WBC Morphology Not Reportable 03/15/22 13:00 WBC Morphology TNR 03/15/22 13:00 Hypersegmented Neuts Not Reportable 03/15/22 13:00 Hyposegmented Neuts Not Reportable 03/15/22 13:00 Hypogranular Neuts Not Reportable 03/15/22 13:00 Smudge Cells Not Reportable 03/15/22 13:00 Toxic Granulation Not Reportable 03/15/22 13:00 Toxic Vacuolation Not Reportable 03/15/22 13:00 Dohle Bodies Not Reportable 03/15/22 13:00 Pelger-Huet Anomaly Not Reportable 03/15/22 13:00 Susan Rods Not Reportable 03/15/22 13:00 Platelet Estimate Consistent w auto 03/15/22 13:00 Clumped Platelets Not Reportable 03/15/22 13:00 Plt Clumps, EDTA Not Reportable 03/15/22 13:00 Large Platelets Not Reportable 03/15/22 13:00 Giant Platelets Not Reportable 03/15/22 13:00 Platelet Satelliting Not Reportable 03/15/22 13:00 Plt Morphology Comment Not Reportable 03/15/22 13:00 RBC Morphology Not Reportable 03/15/22 13:00 Dimorphic RBCs Not Reportable 03/15/22 13:00 Polychromasia Not Reportable 03/15/22 13:00 Hypochromasia Not Reportable 03/15/22 13:00 Poikilocytosis Not Reportable 03/15/22 13:00 Anisocytosis Not Reportable 03/15/22 13:00 Microcytosis Not Reportable 03/15/22 13:00 Macrocytosis Not Reportable 03/15/22 13:00 Spherocytes Not Reportable 03/15/22 13:00 Pappenheimer Bodies Not Reportable 03/15/22 13:00 Sickle Cells Not Reportable 03/15/22 13:00 Target Cells Not Reportable 03/15/22 13:00 Tear Drop Cells Not Reportable 03/15/22 13:00 Ovalocytes Not Reportable 03/15/22 13:00 Helmet Cells Not Reportable 03/15/22 13:00 Ochoa-Refton Bodies Not Reportable 03/15/22 13:00 [place] Rings Not Reportable 03/15/22 13:00 Aileen Cells Not Reportable 03/15/22 13:00 Bite Cells Not Reportable 03/15/22 13:00 Crenated Cell Not Reportable 03/15/22 13:00 Elliptocytes Few 03/15/22 13:00 Acanthocytes (Spur) Not Reportable 03/15/22 13:00 Rouleaux Not Reportable 03/15/22 13:00 Hemoglobin C Crystals Not Reportable 03/15/22 13:00 Schistocytes Not Reportable 03/15/22 13:00 Malaria parasites Not Reportable 03/15/22 13:00 Barry Bodies Not Reportable 03/15/22 13:00 Hem Pathologist Commnt No 03/15/22 13:00 PT 14.1 Sec. (12.2-14.9) 03/15/22 13:00 INR 0.98 (0.87-1.13) 03/15/22 13:00 APTT 29.5 Sec. (24.2-36.6) 03/15/22 13:00 D-Dimer 334.97 ng/mlDDU (0-234) H 03/15/22 13:00 VBG pH 7.412 (7.320-7.420) 03/15/22 Unknown Sodium 134 mmol/L (137-145) L D 03/17/22 06:09 Potassium 4.3 mmol/L (3.6-5.0) 03/17/22 06:09 Chloride 105.1 mmol/L (98-107) 03/17/22 06:09 Carbon Dioxide 22 mmol/L (22-30) 03/17/22 06:09 Anion Gap 11 mmol/L 03/17/22 06:09 BUN 11 mg/dL (7-17) 03/17/22 06:09 Creatinine 0.6 mg/dL (0.6-1.2) 03/17/22 06:09 Estimated GFR > 60 ml/min 03/17/22 06:09 BUN/Creatinine Ratio 18 % 03/17/22 06:09 Glucose 250 mg/dL (65-100) H 03/17/22 06:09 POC Glucose 295 mg/dL (70-105) H 03/17/22 11:32 Calcium 8.8 mg/dL (8.4-10.2) 03/17/22 06:09 Magnesium 1.70 mg/dL (1.7-2.3) 03/15/22 17:36 Total Bilirubin 0.30 mg/dL (0.1-1.2) 03/16/22 07:04 AST 10 units/L (5-40) 03/16/22 07:04 ALT < 5 units/L (7-56) L 03/16/22 07:04 Alkaline Phosphatase 91 units/L (35-129) 03/16/22 07:04 Total Creatine Kinase 92 units/L (30-135) 03/15/22 13:00 CK-MB (CK-2) 1.2 ng/mL (0.0-4.0) 03/15/22 13:00 CK-MB (CK-2) Rel Index 1.3 (0-4) 03/15/22 13:00 Troponin T < 0.010 ng/mL (0.00-0.029) 03/15/22 13:00 NT-Pro-B Natriuret Pep 164.4 pg/mL (0-900) 03/15/22 17:36 Total Protein 6.3 g/dL (6.3-8.2) 03/16/22 07:04 Albumin 3.6 g/dL (3.9-5) L 03/16/22 07:04 Albumin/Globulin Ratio 1.3 % 03/16/22 07:04 Procalcitonin < 0.05 ng/mL (<0.15) 03/16/22 07:04 TSH 3.800 mlU/mL (0.270-4.200) 03/15/22 17:36 Free T4 0.96 ng/dL (0.76-1.46) 03/15/22 17:36 Urine Color Priscilla (Yellow) 03/15/22 11:19 Urine Turbidity Slightly-cloudy (Clear) 03/15/22 11:19 Urine pH 5.0 (5.0-7.0) 03/15/22 11:19 Ur Specific Gilbert 1.028 (1.003-1.030) 03/15/22 11:19 Urine Protein 100 mg/dl mg/dL (Negative) 03/15/22 11:19 Urine Glucose (UA) Neg mg/dL (Negative) 03/15/22 11:19 Urine Ketones Tr mg/dL (Negative) 03/15/22 11:19 Urine Blood Neg (Negative) 03/15/22 11:19 Urine Nitrite Neg (Negative) 03/15/22 11:19 Urine Bilirubin Neg (Negative) 03/15/22 11:19 Urine Urobilinogen < 2.0 mg/dL (<2.0) 03/15/22 11:19 Ur Leukocyte Esterase Mod (Negative) 03/15/22 11:19 Urine WBC (Auto) 8.0 /HPF (0.0-6.0) H 03/15/22 11:19 Urine RBC (Auto) 2.0 /HPF (0.0-6.0) 03/15/22 11:19 U Epithel Cells (Auto) 15.0 /HPF (0-13.0) H 03/15/22 11:19 Urine Bacteria (Auto) 1+ /HPF (Negative) 03/15/22 11:19 Ur Transition Epith Cell 1 /HPF 03/15/22 11:19 Urine Mucus 3+ /HPF 03/15/22 11:19 Rodrigues/IV: Voiding Method External Female Catheter Active Medications - Current Medications Current Medications: Generic Name Dose Route Start Last Admin Trade Name Freq PRN Reason Stop Dose Admin Acetaminophen 650 mg 03/15/22 20:18 Acetaminophen 325 Mg Tab PO Q4H PRN Pain MILD(1-3)/Fever >100.5/MOYER Albuterol 2.5 mg 03/15/22 20:18 Albuterol 2.5 Mg/3 Ml Nebu IH Q4HRT PRN Shortness Of Breath Albuterol/Ipratropium 1 ampul 03/16/22 09:30 03/17/22 13:40 Ipratropium/Albuterol Sulfate 3 Ml Ampul.Neb IH Not Given Q6HRT SKYLER Amlodipine Besylate 5 mg 03/16/22 10:00 03/17/22 10:32 Amlodipine 5 Mg Tab PO 5 mg QDAY SKYLER Administration Arformoterol Tartrate 15 mcg 03/15/22 20:00 03/17/22 09:16 Arformoterol 15 Mcg/2 Ml Nebu IH 15 mcg Q12HRT SKYLER Administration Benzonatate 100 mg 03/15/22 17:25 03/16/22 14:57 Benzonatate 100 Mg Cap PO 100 mg Q8HR PRN Administration Cough Budesonide 0.5 mg 03/15/22 20:00 03/17/22 09:16 Budesonide 0.5 Mg/2 Ml Nebu IH 0.5 mg Q12HRT SKYLER Administration Dextrose 50 ml 03/15/22 17:27 Dextrose 50% In Water (25gm) 50 Ml Syringe IV Q30MIN PRN Hypoglycemia Protocol Dolutegravir Sodium 50 mg 03/16/22 10:00 03/17/22 10:33 Dolutegravir 50 Mg Tab PO 50 mg QDAY SKYLER Administration Emtricitabine 200 mg 03/16/22 10:00 03/17/22 10:33 Emtricitabine 200 Mg Cap PO 200 mg QDAY SKYLER Administration Insulin Human Regular 0 units 03/15/22 22:00 03/17/22 13:21 Insulin Regular, Human 100 Units/1 Ml SUB-Q 4 units ACHS SKYLER Administration Protocol Methylprednisolone Sodium Succinate 60 mg 03/17/22 22:00 Methylprednisolone Sod Succinate 125 Mg/2 Ml Inj IV BID SKYLER Montelukast Sodium 10 mg 03/16/22 22:00 03/16/22 21:58 Montelukast 10 Mg Tab PO 10 mg QHS SKYLER Administration Morphine Sulfate 2 mg 03/15/22 20:18 03/15/22 20:40 Morphine 4 Mg/1 Ml Inj IV 2 mg Q8H PRN Administration Pain , Severe (7-10) Nitroglycerin 0.4 mg 03/15/22 20:20 Nitroglycerin 0.4 Mg Tab Subl SL .Q5MIN PRN Chest Pain Ondansetron HCl 4 mg 03/15/22 20:18 03/17/22 10:32 Ondansetron 4 Mg/2 Ml Inj IV 4 mg Q8H PRN Administration Nausea And Vomiting Oxycodone/Acetaminophen 1 tab 03/15/22 20:18 03/17/22 10:38 Oxycodone /Acetaminophen 5-325mg Tab PO 1 tab Q6H PRN Administration Pain, Moderate (4-6) Pantoprazole Sodium 40 mg 03/16/22 10:00 03/17/22 10:32 Pantoprazole 40 Mg Tab PO 40 mg QDAY SKYLER Administration Potassium Chloride 10 meq 03/16/22 10:00 03/17/22 10:33 Potassium Chloride Er 10 Meq Tab PO 10 meq QDAY SKYLER Administration Quetiapine Fumarate 200 mg 03/15/22 22:00 03/16/22 21:58 Quetiapine 200 Mg Tab PO 200 mg QHS SKYLER Administration Sodium Chloride 10 ml 03/15/22 22:00 03/17/22 10:34 Sodium Chloride 0.9% 10 Ml Flush Syringe IV 10 ml BID SKYLER Administration Sodium Chloride 10 ml 03/15/22 20:18 Sodium Chloride 0.9% 10 Ml Flush Syringe IV PRN PRN LINE FLUSH Tenofovir Disoproxil Fumarate 300 mg 03/16/22 10:00 03/17/22 13:20 Tenofovir 300 Mg Tab PO 300 mg QDAY SKYLER Administration
[2022-03-17] MEDS: MONTELUKAST 10 MG TAB PO SCH (21:35)
[2022-03-17] MEDS: QUEtiapine 200 MG TAB PO SCH (21:40)
[2022-03-17] MEDS ORDERED: methylPREDNISolone Sod Succinate 125 MG/2 ML INJ IV SCH (22:00)
[2022-03-18] MEDS: IPRATROPIUM/ALBUTEROL SULFATE 3 ML AMPUL.NEB IH SCH ×4 (02:03→22:33)
[2022-03-18] MEDS: INSULIN REGULAR, HUMAN 100 UNITS/1 ML SUB-Q SCH ×3 (08:00→16:33)
[2022-03-18] MEDS ORDERED: glipiZIDE 5 MG TAB PO SCH (08:00)
--- NOTE | 2022-03-18 09:06 | Electrocardiograph Report ---
[facility] Test Date: 2022-03-18 Test Time: 07:04:22 Pat Name: SIRI JEAN Department: Room: A468 1 Gender: F Beef Killer: SAVANNAH : 1955 Requested By: TYESHA DAVISON Order Number: [id number] Reading MD: Humza Romero Measurements Intervals Tracy Rate: 72 P: 58 RI: 141 QRS: 24 QRSD: 95 T: 40 QT: 417 QTc: 458 Interpretive Statements Sinus rhythm Compared to ECG 03/15/2022 21:26:45 No significant changes Electronically Signed On 03-18-2022 9:05:57 EDT by Humza Romero
[2022-03-18] MEDS: ARFORMOTEROL 15 MCG/2 ML NEBU IH SCH ×2 (09:36→22:33)
[2022-03-18] MEDS: BUDESONIDE 0.5 MG/2 ML NEBU IH SCH ×2 (09:36→22:34)
[2022-03-18] MEDS ORDERED: methylPREDNISolone Sod Succinate 125 MG/2 ML INJ IV SCH (10:00)
[2022-03-18] MEDS: DOLUTEGRAVIR 50 MG TAB PO SCH (11:02)
[2022-03-18] MEDS: amLODIPine 5 MG TAB PO SCH (11:02)
[2022-03-18] MEDS: EMTRICITABINE 200 MG CAP PO SCH (11:02)
[2022-03-18] MEDS: TENOFOVIR 300 MG TAB PO SCH (11:02)
[2022-03-18] MEDS: POTASSIUM CHLORIDE ER 10 MEQ TAB PO SCH (11:02)
[2022-03-18] MEDS: PANTOPRAZOLE 40 MG TAB PO SCH (11:03)
[2022-03-18] MEDS: oxyCODONE /ACETAMINOPHEN 5-325MG TAB PO PRN (11:05)
--- NOTE | 2022-03-18 13:11 | Discharge Summary ---
Providers - Providers Date of Admission: 03/15/22 20:18 Date of discharge: 03/18/22 Attending physician: ESTIVEN UREÑA MD 03/15/22 Consult to Cardiac Rehabilitation [CONS] Routine Reason For Exam: Phase 1 03/15/22 20:20 Consult to Cardiology [CONS] Routine Consulting Provider: NIKKY WALLACE Reason For Exam: angina/chf Primary care physician: EDUCATION COUNSELOR Hospitalization Reason for admission: Acute hypoxic respiratory failure Condition: Fair Pertinent studies: Reviewed. Procedures: None. Hospital course: The patient is a 66 YO Female with Obesity Hypoventilation Syndrome, CHF, HTN, PE, HIV Disease, DM, Seizure Disorder, Schizophrenia, Bipolar Disorder, Mild Intermittent Asthma, Spinal Stenosis presents to ED for evaluation. Patient reports "my chest hurts". Patient states that she has experienced chest pain over the past 2 days. Patient states that pain is intermittent but has become more frequent, sharp in nature, worse with exertion, relieved with rest. Patient states that pain is 7/10, associate with shortness of breath, [facility] notified and upon arrival the patient was found to be in distress and transported to [facility] for further evaluation and care. Pt seen and evaluated in ED. lab and imaging studies reviewed. Patient found to have clinical symptoms consistent with angina at rest. Cardiology. Was consulted for management due to concerns for possible acute on chronic diastolic heart failure. The patient underwent TTE (03/16/2022) revealing an EF 55-60% with borderline concentric LVH, mildly dilated RV, and otherwise relatively unremarkable. With further examination, was found that the patient was having acute asthma exacerbation prompting DuoNebs, albuterol nebs, and IV steroids. The patient has since been weaned to room air. The patient was counseled at length about the importance of medication compliance and following up with her primary care provider more frequently as opposed to always arriving at the emergency department. Patient is medically clear for discharge. Disposition: 01 HOME / SELF CARE / HOMELESS Final Discharge Diagnosis (Prints w/discharge instructions): Acute asthma exacerbation, acute hypoxic respiratory failure, angina at rest, chronic diastolic heart failure, atrial fibrillation with RVR, HIV, GERD, [id number] type 2 diabetes mellitus, bipolar disorder, metabolic syndrome, obesity hypoventilation syndrome, morbid obesity. Time spent for discharge: 45 min Core Measure Documentation - Palliative Care Palliative Care/ Comfort Measures: Not Applicable - Core Measures Any of the following diagnoses?: none Exam - Constitutional Vitals: Temp Pulse Resp BP Pulse Ox 97.7 F 92 H 19 116/67 99 03/18/22 07:47 03/18/22 08:00 03/18/22 08:00 03/18/22 07:47 03/18/22 09:37 General appearance: Present: no acute distress, well-nourished, obese - EENT Eyes: Present: PERRL, EOM intact ENT: hearing intact, clear oral mucosa, dentition normal - Neck Neck: Present: supple, normal ROM - Respiratory Respiratory effort: normal Respiratory: bilateral: CTA - Cardiovascular Rhythm: regular Heart Sounds: Present: S1 & S2 - Extremities Extremities: no ischemia, pulses intact, pulses symmetrical, No edema, normal temperature, normal color Peripheral Pulses: within normal limits - Abdominal General gastrointestinal: Present: soft, non-tender, non-distended, normal bowel sounds Female genitourinary: Present: deferred - Rectal Rectal Exam: deferred - Integumentary Integumentary: Present: clear, warm, dry - Musculoskeletal Musculoskeletal: generalized weakness - Psychiatric Psychiatric: appropriate mood/affect, cooperative, other (Limited insight regarding patient's asthma and appropriate management) - Neurologic Neurologic: CNII-XII intact - Allied Health Allied health notes reviewed: nursing Plan Activity: advance as tolerated Diet: low salt, diabetic Additional Instructions: The patient is a 66 YO Female with Obesity Hypoventilation Syndrome, CHF, HTN, PE, HIV Disease, DM, Seizure Disorder, Schizophrenia, Bipolar Disorder, Mild Intermittent Asthma, Spinal Stenosis presents to ED for evaluation. Patient reports "my chest hurts". Patient states that she has experienced chest pain over the past 2 days. Patient states that pain is intermittent but has become more frequent, sharp in nature, worse with exertion, relieved with rest. Patient states that pain is 7/10, associate with shortness of breath, [facility] notified and upon arrival the patient was found to be in distress and transported to [facility] for further evaluation and care. Pt seen and evaluated in ED. lab and imaging studies reviewed. Patient found to have clinical symptoms consistent with angina at rest. Cardiology. Was consulted for management due to concerns for possible acute on chronic diastolic heart failure. The patient underwent TTE (03/16/2022) revealing an EF 55-60% with borderline concentric LVH, mildly dilated RV, and otherwise relatively unremarkable. With further examination, was found that the patient was having acute asthma exacerbation prompting DuoNebs, albuterol nebs, and IV steroids. The patient has since been weaned to room air. The patient was counseled at length about the importance of medication compliance and following up with her primary care provider more frequently as opposed to always arriving at the emergency department. Patient is medically clear for discharge. Care Plan Goals: Patient is medically clear for discharge. Assessment: The patient is a 66 YO Female with Obesity Hypoventilation Syndrome, CHF, HTN, PE, HIV Disease, DM, Seizure Disorder, Schizophrenia, Bipolar Disorder, Mild Intermittent Asthma, Spinal Stenosis presents to ED for evaluation. Patient reports "my chest hurts". Patient states that she has experienced chest pain over the past 2 days. Patient states that pain is intermittent but has become more frequent, sharp in nature, worse with exertion, relieved with rest. Patient states that pain is 7/10, associate with shortness of breath, [facility] notified and upon arrival the patient was found to be in distress and transported to [facility] for further evaluation and care. Pt seen and evaluated in ED. lab and imaging studies reviewed. Patient found to have clinical symptoms consistent with angina at rest. Cardiology. Was consulted for management due to concerns for possible acute on chronic diastolic heart failure. The patient underwent TTE (03/16/2022) revealing an EF 55-60% with borderline concentric LVH, mildly dilated RV, and otherwise relatively unremarkable. With further examination, was found that the patient was having acute asthma exacerbation prompting DuoNebs, albuterol nebs, and IV steroids. The patient has since been weaned to room air. The patient was counseled at length about the importance of medication compliance and following up with her primary care provider more frequently as opposed to always arriving at the emergency department. Patient is medically clear for discharge. Follow up with: PRIMARY CAREMD [Primary Care Provider] - 3-5 Days Prescriptions: Montelukast [Singulair] 10 mg PO QHS #30 tablet amLODIPine 5 mg PO QDAY #30 tablet glipiZIDE [Glucotrol] 5 mg PO QDDIAB #60 tablet Potassium Chloride [K-Dur] 10 meq PO QDAY #30 tablet Albuterol Mdi (or & Nicu Only) [ProAir HFA Inhaler] 2 puff IH Q4HR PRN #1 inhalation PRN Reason: Shortness Of Breath Pantoprazole [Protonix TAB] 40 mg PO QDAY #30 tablet Benzonatate [Tessalon Perles] 100 mg PO Q8HR PRN #20 capsule PRN Reason: Cough
[2022-03-18 17:17] VITALS: BP 104/61
== END 2022-03-18 20:11 | disposition home or self-care (01) | DRG 189 ==
LOC: ED 10:04 → 4A 20:18
PROVIDERS: ADMIT Internal Medicine; ATTEND Student in an Organized Health Care Education/Training Program
DX: J96.01 Acute respiratory failure with hypoxia (principal); B20 Human immunodeficiency virus [HIV] disease; E66.2 Morbid (severe) obesity with alveolar hypoventilation; J44.1 Chronic obstructive pulmonary disease with (acute) exacerbation; J45.901 Unspecified asthma with (acute) exacerbation; I50.32 Chronic diastolic (congestive) heart failure; I20.8 Other forms of angina pectoris; I11.0 Hypertensive heart disease with heart failure; E88.81 Metabolic syndrome and other insulin resistance; G40.909 Epilepsy, unspecified, not intractable, without status epilepticus; K21.9 Gastro-esophageal reflux disease without esophagitis; E11.9 Type 2 diabetes mellitus without complications; F31.9 Bipolar disorder, unspecified; F20.9 Schizophrenia, unspecified; I48.91 Unspecified atrial fibrillation; Z90.710 Acquired absence of both cervix and uterus; Z79.4 Long term (current) use of insulin; Z83.3 Family history of diabetes mellitus; Z88.6 Allergy status to analgesic agent; Z91.013 Allergy to seafood; Z82.49 Family history of ischemic heart disease and other diseases of the circulatory system; Z88.8 Allergy status to other drugs, medicaments and biological substances; Z86.711 Personal history of pulmonary embolism; Z71.3 Dietary counseling and surveillance
CPT/HCPCS: 36415; 71046; 78580; 80048; 80053; 81001; 82550; 82553; 82805; 82962; 83735; 83880; 84145; 84439; 84443; 84484; 85007; 85025; 85027; 85379; 85610; 85730; 93005; 93306; 94640; 94644; 94760; G0378; Q9967; A9540; C8929; J1815; J2270; J2405; J2930; J3010

== ENCOUNTER 2022-04-05 05:00 | Observation (INO) | payer MEDICARE ==
[2022-04-05] MEDS ORDERED: ASPIRIN 325 MG TAB PO ONE (05:20)
--- NOTE | 2022-04-05 06:04 | XRay Report ---
CHEST 2 VIEWS INDICATION / CLINICAL INFORMATION: chestpain. CHEST 2 VIEWS INDICATION / CLINICAL INFORMATION: chestpain. COMPARISON: None available. FINDINGS: SUPPORT DEVICES: None. HEART / MEDIASTINUM: No significant abnormality. LUNGS / PLEURA: Subtle increased interstitial prominence in density left lower lung No pneumothorax. Signer Name: Rogelio Farnsworth MD Signed: 04/05/2022 5:59 AM Workstation Name: [id number]
[2022-04-05 06:11] LABS: Basophils % (Auto) 0.3 % (0.0-1.8); Eosinophils # (Auto) 0.1 K/mm3 (0.0-0.4); Eosinophils % (Auto) 2.2 % (0.0-4.3); Hematocrit 37.8 % (30.3-42.9); Hemoglobin 12.6 gm/dl (10.1-14.3); Lymphocytes % (Auto) 49.2 % (13.4-35.0); Mean Corpuscular HGB Conc 33 % (30-34); Mean Corpuscular Volume 105 fl (79-97); Monocytes # (Auto) 0.3 K/mm3 (0.0-0.8); Monocytes % (Auto) 7.2 % (0.0-7.3); Platelet Count 185 K/mm3 (140-440); Red Blood Count 3.61 M/mm3 (3.65-5.03); Red Cell Distribution Width 13.9 % (13.2-15.2)
[2022-04-05 06:34] LABS: Alanine Aminotransferase 6 units/L (7-56); Blood Urea Nitrogen 20 mg/dL (7-17); Calcium 9.4 mg/dL (8.4-10.2); Hemolysis Index 3
[2022-04-05 06:35] LABS: BUN/Creatinine Ratio 29
[2022-04-05] MEDS ORDERED: fentaNYL 100 MCG/2 ML INJ IV ONE (07:06)
[2022-04-05] MEDS ORDERED: ONDANSETRON 4 MG/2 ML INJ IV ONE (07:06)
--- NOTE | 2022-04-05 07:12 | Emergency Department Report ---
HPI - General Chief Complaint: Chest Pain Time Seen by Provider: 04/05/22 06:56 - HPI HPI: Room 5 The patient is a 66-year-old female present with a chief complaint of chest pain. Patient states for the past 3 days she has had intermittent substernal c hest pain this been sharp in nature. Patient mitts to shortness of breath, diaphoresis and nausea without vomiting associated with her chest pain. Patient currently gives her chest pain score 7/10. Of note the patient states she fell a few days ago landing on her left side and she has had left upper quadrant pain since the fall. ED Past Medical Hx - Past Medical History Previous Medical History?: Yes Hx Hypertension: Yes Hx Congestive Heart Failure: Yes Hx Diabetes: Yes Hx Pulmonary Embolism: Yes Hx Seizures: Yes Hx Psychiatric Treatment: Yes (bipolar disorder; schziphornia) Hx Asthma: Yes Hx HIV: Yes (on medication, unknown last CD4 count) Additional medical history: CDIFF, spinal stenosis - Surgical History Past Surgical History?: Yes Additional Surgical History: Hysterectomy, IVC filter - Family History Family history: no significant - Social History Smoking Status: Never Smoker Substance Use Type: None (Denies illicit drug use) - Medications Home Medications: Home Medications Medication Instructions Recorded Confirmed Last Taken Type ALBUTEROL NEB's [Proventil 0.083% 2.5 mg IH TID PRN #30 neb 01/23/20 03/15/22 Unknown Rx NEBS] Budesonide/Formoterol Fumarate 2 inhalation IH BID #1 hfa.aer.ad 01/23/20 03/15/22 Unknown Rx [Symbicort 160-4.5 Mcg Inhaler] Elviteg/Cob/Emtri/Tenof Alafen 1 each PO DAILY #30 tablet 01/23/20 03/15/22 Unknown Rx [Genvoya Tablet] Furosemide [Lasix TAB] 40 mg PO QAM #30 tablet 01/23/20 03/15/22 Unknown Rx Genvoya Tablet 1 tab PO DAILY #90 tab 01/23/20 03/15/22 Unknown Rx Insulin NPH/Regular [NovoLIN 70/30] 30 unit SUB-Q BIDDIAB #2 vial 01/23/20 03/15/22 Unknown Rx QUEtiapine [SEROquel] 200 mg PO QHS #90 tablet 01/23/20 03/15/22 Unknown Rx Tiotropium [place] [Spiriva 2 inhalation IH DAILY #1 mist.inhal 01/23/20 03/15/22 Unknown Rx Respimat] traMADoL [Ultram 50 MG tab] 50 mg PO Q6H PRN #14 tablet 01/23/20 03/15/22 Unknown Rx predniSONE [Deltasone] 20 mg PO DAILY #15 tablet 04/03/20 03/15/22 Unknown Rx Ondansetron [Zofran ODT TAB] 4 mg PO Q8HR PRN #14 tab.rapdis 04/17/21 03/15/22 Unknown Rx Famotidine [Pepcid] 20 mg PO BID #30 tablet 01/25/22 03/15/22 Unknown Rx Albuterol Mdi (or & Nicu Only) 2 puff IH Q4HR PRN #1 inhalation 03/18/22 Unknown Rx [ProAir HFA Inhaler] Benzonatate [Tessalon Perles] 100 mg PO Q8HR PRN #20 capsule 03/18/22 Unknown Rx Montelukast [Singulair] 10 mg PO QHS #30 tablet 03/18/22 Unknown Rx Pantoprazole [Protonix TAB] 40 mg PO QDAY #30 tablet 03/18/22 Unknown Rx Potassium Chloride [K-Dur] 10 meq PO QDAY #30 tablet 03/18/22 Unknown Rx amLODIPine 5 mg PO QDAY #30 tablet 03/18/22 Unknown Rx glipiZIDE [Glucotrol] 5 mg PO QDDIAB #60 tablet 03/18/22 Unknown Rx ED Review of Systems ROS: Stated complaint: SOB, CHEST PAIN Other details as noted in HPI Constitutional: diaphoresis Eyes: denies: eye pain ENT: denies: throat pain Respiratory: shortness of breath Cardiovascular: chest pain Endocrine: no symptoms reported Gastrointestinal: abdominal pain, nausea. denies: vomiting Genitourinary: denies: dysuria Musculoskeletal: denies: back pain Neurological: denies: headache Physical Exam - Physical Exam Vital Signs: Vital Signs 04/05/22 04/05/22 04/05/22 05:16 05:39 05:52 Temperature 97.2 F L Pulse Rate 110 H 74 99 H Respiratory 18 9 L Rate Blood Pressure 126/90 O2 Sat by Pulse 98 100 Oximetry 04/05/22 04/05/22 04/05/22 06:00 06:16 06:30 Temperature Pulse Rate 91 H 86 87 Respiratory 17 13 16 Rate Blood Pressure 123/76 123/76 123/76 O2 Sat by Pulse 100 100 100 Oximetry 04/05/22 06:46 Temperature Pulse Rate 80 Respiratory 16 Rate Blood Pressure 123/76 O2 Sat by Pulse 100 Oximetry Physical Exam: GENERAL: The patient is well-developed well-nourished female lying on stretcher not appearing to be in acute distress. [] HEENT: Normocephalic. Atraumatic. Extraocular motions are intact. Patient has moist mucous membranes. NECK: Supple. Trachea midline CHEST/LUNGS: Clear to auscultation. There is no respiratory distress noted. HEART/CARDIOVASCULAR: Regular. There is no tachycardia. There is no gallop rub or murmur. ABDOMEN: Abdomen is soft, with mild discomfort to palpation in the left upper quadrant. Patient has normal bowel sounds. There is no abdominal distention. SKIN: There is no rash. There is no edema. There is no diaphoresis. NEURO: The patient is awake, alert, and oriented. The patient is cooperative. The patient has no focal neurologic deficits. The patient has normal speech. GCS 15 MUSCULOSKELETAL: There is no evidence of acute injury. ED Course Vital Signs 04/05/22 04/05/22 04/05/22 05:16 05:39 05:52 Temperature 97.2 F L Pulse Rate 110 H 74 99 H Respiratory 18 9 L Rate Blood Pressure 126/90 O2 Sat by Pulse 98 100 Oximetry 04/05/22 04/05/22 04/05/22 06:00 06:16 06:30 Temperature Pulse Rate 91 H 86 87 Respiratory 17 13 16 Rate Blood Pressure 123/76 123/76 123/76 O2 Sat by Pulse 100 100 100 Oximetry 04/05/22 06:46 Temperature Pulse Rate 80 Respiratory 16 Rate Blood Pressure 123/76 O2 Sat by Pulse 100 Oximetry - Consultations Consultation #1: 04/05/22 11:49 Case discussed with account services representative Dr. Medrano ED Medical Decision Making - Lab Data Result diagrams: 04/05/22 06:05 04/05/22 06:05 Laboratory Tests 04/05/22 04/05/22 04/05/22 06:05 06:05 09:04 WBC 4.0 L RBC 3.61 L Hgb 12.6 Hct 37.8 MCV 105 H MCH 35 H MCHC 33 RDW 13.9 Plt Count 185 Lymph % (Auto) 49.2 H Trinity % (Auto) 7.2 Eos % (Auto) 2.2 Baso % (Auto) 0.3 Lymph # (Auto) 2.0 Trinity # (Auto) 0.3 Eos # (Auto) 0.1 Baso # (Auto) 0.0 Seg Neutrophils % 41.1 Seg Neutrophils # 1.7 L Sodium 137 Potassium 4.0 Chloride 103.1 Carbon Dioxide 21 L Anion Gap 17 BUN 20 H Creatinine 0.7 Estimated GFR > 60 BUN/Creatinine Ratio 29 Glucose 145 H Calcium 9.4 Total Bilirubin 0.30 AST 11 ALT 6 L Alkaline Phosphatase 118 Troponin T < 0.010 < 0.010 Total Protein 8.0 Albumin 4.0 Albumin/Globulin Ratio 1.0 04/05/22 13:03 WBC RBC Hgb Hct MCV MCH MCHC RDW Plt Count Lymph % (Auto) Trinity % (Auto) Eos % (Auto) Baso % (Auto) Lymph # (Auto) Trinity # (Auto) Eos # (Auto) Baso # (Auto) Seg Neutrophils % Seg Neutrophils # Sodium Potassium Chloride Carbon Dioxide Anion Gap BUN Creatinine Estimated GFR BUN/Creatinine Ratio Glucose Calcium Total Bilirubin AST ALT Alkaline Phosphatase Troponin T < 0.010 Total Protein Albumin Albumin/Globulin Ratio - EKG Data -: EKG Interpreted by Me EKG shows normal: sinus rhythm Rate: normal - EKG Data When compared to previous EKG there are: previous EKG unavailable Interpretation: normal EKG - Radiology Data Radiology results: report reviewed (Chest x-ray, CT abdomen pelvis), image reviewed (Chest x-ray, CT abdomen pelvis) interpreted by me: Chest x-ray-no definite focal infiltrates, no pneumothorax [facility] [address] [place] [address] XRay Report Signed Patient: SIRI JEAN MR# : [id number] : 1955 Acct:[id number] Age/Sex: 66 / F ADM Date: 04/05/22 Loc: ED Attending Dr: Ordering Physician: ED MD RACHELE Date of Service: 04/05/22 Procedure(s): XR chest routine 2V Accession Number(s): [id number] cc: ED DOCMD Fluoro Time In Minutes: CHEST 2 VIEWS INDICATION / CLINICAL INFORMATION: chestpain. CHEST 2 VIEWS INDICATION / CLINICAL INFORMATION: chestpain. COMPARISON: None available. FINDINGS: SUPPORT DEVICES: None. HEART / MEDIASTINUM: No significant abnormality. LUNGS / PLEURA: Subtle increased interstitial prominence in density left lower lung No pneumothorax. Signer Name: Rogelio Farnsworth MD Signed: 04/05/2022 5:59 AM Workstation Name: [id number] Transcribed By: CW Dictated By: SHEA FARNSWORTH MD Electronically Authenticated By: SHEA FARNSWORTH MD Signed Date/Time: 04/05/22558 DD/ 8 TD/TT: [facility] [address] [place] [address] Cat Scan Report Signed Patient: SIRI JEAN MR# : [id number] : 1955 Acct:[id number] Age/Sex: 66 / F ADM Date: 04/05/22 Loc: ED Attending Dr: Ordering Physician: ESVIN TRAN MD Date of Service: 04/05/22 Procedure(s): CT abdomen pelvis w con Accession Number(s): [id number] cc: ESVIN TRAN MD CT abdomen pelvis w con INDICATION / CLINICAL INFORMATION: LUQ pain after fall. TECHNIQUE: Axial CT imaging of abdomen and pelvis was obtained with 100 cc Omni 350 IV contrast. Coronal and sagittal reformatted imaging obtained and reviewed. All CT scans at this location are performed using CT dose reduction for ALARA by means of automated exposure control. COMPARISON: Prior CT abdomen/pelvis 01/25/2022 FINDINGS: CT abdomen with contrast demonstrates normal appearance of the liver, spleen, pancreas, kidneys, and adrenal glands. Bladder is present and without obvious abnormality. No biliary dilatation. Abdominal aorta has a normal appearance. IVC filter is present. CT pelvis with contrast does not demonstrate any mass, free fluid, or focal inflammatory process. The uterus appears to be surgically absent. A normal appendix is present within the right lower quadrant. GI tract is unremarkable. Visualized lung bases are clear. No acute significant osseous abnormality noted. IMPRESSION: 1. No acute finding within the abdomen or pelvis. No evidence of traumatic abnormality. Signer Name: Mere Pepe MD Signed: 04/05/2022 2:15 PM Workstation Name: [id number] Transcribed By: JR Dictated By: Mere Pepe MD Electronically Authenticated By: Mere Pepe MD Signed Date/Time: 04/05/221414 DD/ 11 TD/TT: - Differential Diagnosis ACS, PE, pericarditis, GERD Critical care attestation.: If time is entered above; I have spent that time in minutes in the direct care of this critically ill patient, excluding procedure time. ED Disposition Clinical Impression: Chest pain Disposition: ADMITTED INPATIENT Is pt being admited?: Yes Does the pt Need Aspirin: No Condition: Fair Instructions: Nonspecific Chest Pain, Adult Referrals: ANJELICA MIRAMONTES MD [Primary Care Provider] - 3-5 Days Time of Disposition: 14:24 (Care transferred to hospitalist (Dr. Llanos)) Heart Score - HEART Score History: Highly suspicious EKG: Normal Age: 45-65 Risk factors: > 3 risk factors or hx of atherosclerotic disease Troponin: < normal limit HEART Score: 5 - EKG Read Time Time EKG Completed: 05:35 EKG Read Time: 05:35
[2022-04-05] MEDS ORDERED: fentaNYL 100 MCG/2 ML INJ IM ONE (08:13)
[2022-04-05] MEDS ORDERED: ONDANSETRON 4 MG ODT TAB PO ONE (08:17)
--- NOTE | 2022-04-05 14:19 | Cat Scan Report ---
CT abdomen pelvis w con INDICATION / CLINICAL INFORMATION: LUQ pain after fall. TECHNIQUE: Axial CT imaging of abdomen and pelvis was obtained with 100 cc Omni 350 IV contrast. Coronal and sag ittal reformatted imaging obtained and reviewed. All CT scans at this location are performed using C T dose reduction for ALARA by means of automated exposure control. COMPARISON: Prior CT abdomen/pelvis 01/25/2022 FINDINGS: CT abdomen with contrast demonstrates normal appearance of the liver, spleen, pancreas, kidneys, and adrenal glands. Bladder is present and without obvious abnormality. No biliary dilatation. Abdominal aorta has a normal appearance. IVC filter is present. CT pelvis with contrast does not demonstrate any mass, free fluid, or focal inflammatory process. The uterus appears to be surgically absent. A normal appendix is present within the right lower quadrant . GI tract is unremarkable. Visualized lung bases are clear. No acute significant osseous abnormality noted. IMPRESSION: 1. No acute finding within the abdomen or pelvis. No evidence of traumatic abnormality. Signer Name: Mere Pepe MD Signed: 04/05/2022 2:15 PM Workstation Name: [id number]
--- NOTE | 2022-04-05 14:37 | History and Physical Report ---
History of Present Illness Chief complaint: My chest hurts History of present illness: 66 YO Female with Obesity Hypoventilation Syndrome, Pulmonary HTN, CHF, HTN, PE not taking therapeutic anticoagulation, HIV Disease, DM, Seizure Disorder, Schizophrenia, Bipolar Disorder, Mild Intermittent Asthma, Spinal Stenosis pr esents to ED for evaluation. Patient reports "my chest hurts". Patient states that she has experienced chest pain over the past 3 days. Patient states that pain is intermittent but has become more frequent over the past 1 day and in sharp in nature, worseed with exertion, relieved with rest. Patient states that pain is 7/10, associateed with shortness of breath. EMS notified and upon arrival the patient was found to be in distress and transported to [facility] for further evaluation and care. Pt seen and evaluated in ED. lab and imaging studies reviewed. Patient found to have clinical symptoms consistent with angina at rest, as well as diastolic CHF. Patient admitted to telemetry for medical stabilization due to increased likelihood of decompensation. Pt denies fever, chills, palpitations, productinve cough, NVD, Syncope, Trauma, recent ill contacts, unilateral leg swelling, calf pain, prolonged travel/immobility, trauma, individual/family history of DVT/PE, hemoptysis, known ill contacts, or known exposure to COVID-19. Prior admission on 03/15/2022 reviewed. All listed medication reconciled at time of admission. Advanced care planning conducted in ED. Past History Past Medical History: diabetes, heart failure, hypertension, pulmonary embolism, seizures, other (See HPI) Past Surgical History: hysterectomy, Other (IVC filter placement) Social history: single Family history: diabetes, hypertension Medications and Allergies Allergies Allergy/AdvReac Type Severity Reaction Status Date / Time shellfish derived Allergy Severe Shortness Verified 03/15/22 10:09 of Breath ibuprofen [From Motrin] Allergy Mild Shortness Verified 03/15/22 10:09 of Breath aspirin Allergy Itching Verified 03/15/22 10:09 tetracycline Allergy Shortness Verified 03/15/22 10:09 of Breath Home Medications Medication Instructions Recorded Confirmed Last Taken Type ALBUTEROL NEB's [Proventil 0.083% 2.5 mg IH TID PRN #30 neb 01/23/20 03/15/22 Unknown Rx NEBS] Budesonide/Formoterol Fumarate 2 inhalation IH BID #1 hfa.aer.ad 01/23/20 03/15/22 Unknown Rx [Symbicort 160-4.5 Mcg Inhaler] Elviteg/Cob/Emtri/Tenof Alafen 1 each PO DAILY #30 tablet 01/23/20 03/15/22 Unknown Rx [Genvoya Tablet] Furosemide [Lasix TAB] 40 mg PO QAM #30 tablet 01/23/20 03/15/22 Unknown Rx Genvoya Tablet 1 tab PO DAILY #90 tab 01/23/20 03/15/22 Unknown Rx Insulin NPH/Regular [NovoLIN 70/30] 30 unit SUB-Q BIDDIAB #2 vial 01/23/20 03/15/22 Unknown Rx QUEtiapine [SEROquel] 200 mg PO QHS #90 tablet 01/23/20 03/15/22 Unknown Rx Tiotropium [place] [Spiriva 2 inhalation IH DAILY #1 mist.inhal 01/23/20 03/15/22 Unknown Rx Respimat] traMADoL [Ultram 50 MG tab] 50 mg PO Q6H PRN #14 tablet 01/23/20 03/15/22 Unknown Rx predniSONE [Deltasone] 20 mg PO DAILY #15 tablet 04/03/20 03/15/22 Unknown Rx Ondansetron [Zofran ODT TAB] 4 mg PO Q8HR PRN #14 tab.rapdis 04/17/21 03/15/22 Unknown Rx Famotidine [Pepcid] 20 mg PO BID #30 tablet 01/25/22 03/15/22 Unknown Rx Albuterol Mdi (or & Nicu Only) 2 puff IH Q4HR PRN #1 inhalation 03/18/22 Unknown Rx [ProAir HFA Inhaler] Benzonatate [Tessalon Perles] 100 mg PO Q8HR PRN #20 capsule 03/18/22 Unknown Rx Montelukast [Singulair] 10 mg PO QHS #30 tablet 03/18/22 Unknown Rx Pantoprazole [Protonix TAB] 40 mg PO QDAY #30 tablet 03/18/22 Unknown Rx Potassium Chloride [K-Dur] 10 meq PO QDAY #30 tablet 03/18/22 Unknown Rx amLODIPine 5 mg PO QDAY #30 tablet 03/18/22 Unknown Rx glipiZIDE [Glucotrol] 5 mg PO QDDIAB #60 tablet 03/18/22 Unknown Rx Review of Systems Constitutional: no weight loss, no weight gain, no fever, no chills Ears, nose, mouth and throat: no ear pain, no tinnitis Breasts: no change in shape, no swelling, no mass Cardiovascular: chest pain, shortness of breath, no orthopnea, no palpitations Respiratory: no cough, no cough with sputum, no excessive sputum, no shortness of breath Gastrointestinal: no nausea, no vomiting, no diarrhea, no constipation Genitourinary Female: no pelvic pain, no flank pain, no dysuria, no urinary frequency, no urgency Rectal: no pain, no incontinence, no bleeding Musculoskeletal: no neck stiffness, no arm numbness/tingling, no shooting leg pain Integumentary: no rash, no pruritis, no redness, no sores, no wounds Neurological: no head injury, no paralysis, no numbness, no tingling, no tremors Psychiatric: no anxiety, no change in sleep habits, no sleep disturbances, no hypersomnia, no change in appetite, no suicidal ideation, no disorientation Endocrine: no cold intolerance, no polyphagia, no polyuria, no weight change Hematologic/Lymphatic: no easy bruising, no easy bleeding Allergic/Immunologic: no urticaria, no allergic rhinitis, no wheezing Exam - Constitutional Vitals: Temp Pulse Resp BP Pulse Ox 97.2 F L 76 17 117/64 99 04/05/22 05:16 04/05/22 09:16 04/05/22 09:16 04/05/22 12:45 04/05/22 12:45 General appearance: Present: mild distress, obese - EENT Eyes: Present: PERRL ENT: hearing intact, clear oral mucosa - Neck Neck: Present: supple, normal ROM - Respiratory Respiratory effort: normal Respiratory: bilateral: CTA - Cardiovascular Heart Sounds: Present: S1 & S2. Absent: rub, click - Extremities Extremities: pulses symmetrical, No edema Peripheral Pulses: within normal limits - Abdominal General gastrointestinal: Present: soft, non-tender, non-distended, normal bowel sounds Female genitourinary: Present: normal - Integumentary Integumentary: Present: clear, warm, dry - Musculoskeletal Musculoskeletal: gait normal, strength equal bilaterally - Psychiatric Psychiatric: appropriate mood/affect, intact judgment & insight - Neurologic Neurologic: CNII-XII intact, moves all extremities HEART Score - HEART Score EKG: Normal Age: 45-65 Risk factors: > 3 risk factors or hx of atherosclerotic disease Troponin: Troponin T < 0.010 ng/mL (0.00-0.029) 04/05/22 13:03 Troponin: < normal limit Results - Labs CBC & Chem 7: 04/05/22 06:05 04/05/22 06:05 Labs: Abnormal lab results 04/05/22 04/05/22 Range/Units 06:05 06:05 WBC 4.0 L (4.5-11.0) K/mm3 RBC 3.61 L (3.65-5.03) M/mm3 MCV 105 H (79-97) fl MCH 35 H (28-32) pg Lymph % (Auto) 49.2 H (13.4-35.0) % Seg Neutrophils # 1.7 L (1.8-7.7) K/mm3 Carbon Dioxide 21 L (22-30) mmol/L BUN 20 H (7-17) mg/dL Glucose 145 H (65-100) mg/dL ALT 6 L (7-56) units/L Assessment and Plan - Patient Problems (1) Angina at rest Current Visit: Yes Status: Acute Plan to address problem: ACS protocol: Serial cardiac enzymes, EKG, telemetry monitoring, cardiology team consulted, pain control, supportive care, continue medical management. Further care and evaluation as per cardiology team. (2) Diastolic CHF Current Visit: Yes Status: Acute Qualifiers: Heart failure chronicity: acute on chronic Qualified Code(s): I50.33 - Acute on chronic diastolic (congestive) heart failure Plan to address problem: Strict I/O, monitor urine output every shift, daily weight, afterload reduction, blood pressure control, continue medical management. Echocardiogram from 02/24/22 reviewed. (3) Pulmonary hypertension Current Visit: Yes Status: Acute Plan to address problem: Supportive care, continue medical management, supplemental oxygen, pulse oximetry, outpatient pulmonary follow-up for sleep study. Noninvasive positive pressure ventilation as clinically indicated. (4) HIV disease Current Visit: Yes Status: Acute Plan to address problem: Continue medical management, supportive care. Outpatient infectious disease follow-up. (5) Obesity hypoventilation syndrome Current Visit: Yes Status: Acute Plan to address problem: Balanced diet, increase physical activity discharge, weight reduction. (6) Hypertension Current Visit: No Status: Chronic Qualifiers: Hypertension type: primary hypertension Qualified Code(s): I10 - Essential (primary) hypertension Plan to address problem: Monitor blood pressure every shift, continue medical management. (7) Schizophrenia Current Visit: No Status: Chronic Plan to address problem: No acute exacerbation at this time. Outpatient psychiatry follow-up, continue medical management. (8) Seizure disorder Current Visit: No Status: Chronic Plan to address problem: Supportive care, seizure precautions, no seizure activity at this time. (9) DVT prophylaxis Current Visit: Yes Status: Acute Plan to address problem: SCDs bilateral lower extremities while in bed (10) Advance care planning Current Visit: Yes Status: Acute Plan to address problem: Disease education conducted, care plan discussed discussed, diagnoses discussed, prognosis discussed, patient is full code. Patient knowledges understanding and agreement with care plan, +30 minutes. (11) Preventative health care Current Visit: Yes Status: Acute Plan to address problem: Patient counseled regarding risk factor reduction, weight reduction, outpatient follow-up with bariatric surgery, outpatient follow-up with primary care physician for all age and risk factor appropriate screening test. +30 minutes.
--- NOTE | 2022-04-05 14:44 | Electrocardiograph Report ---
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
[2022-04-05] MEDS ORDERED: oxyCODONE /ACETAMINOPHEN 5-325MG TAB PO PRN (15:00)
[2022-04-05] MEDS ORDERED: ALBUTEROL 2.5 MG/3 ML NEBU IH PRN (15:00)
[2022-04-05] MEDS ORDERED: ACETAMINOPHEN 325 MG TAB PO PRN (15:00)
[2022-04-05] MEDS ORDERED: HYDROmorphone 0.5 MG/0.5 ML INJ IV PRN (15:00)
[2022-04-05] MEDS ORDERED: ONDANSETRON 4 MG/2 ML INJ IV PRN (15:00)
[2022-04-05] MEDS ORDERED: BENZONATATE 100 MG CAP PO PRN (21:00)
[2022-04-05] MEDS ORDERED: MONTELUKAST 10 MG TAB PO SCH (22:00)
[2022-04-05] MEDS ORDERED: QUEtiapine 200 MG TAB PO SCH (22:00)
[2022-04-05] MEDS ORDERED: FAMOTIDINE 20 MG TAB PO SCH (22:00)
[2022-04-06] MEDS ORDERED: IPRATROPIUM/ALBUTEROL SULFATE 3 ML AMPUL.NEB IH NR (09:28)
[2022-04-06] MEDS ORDERED: predniSONE 20 MG TAB PO SCH (10:00)
[2022-04-06] MEDS ORDERED: FUROSEMIDE 40 MG TAB PO SCH (10:00)
[2022-04-06] MEDS ORDERED: EMTRICITABINE 200 MG CAP PO SCH (10:00)
[2022-04-06] MEDS ORDERED: TENOFOVIR 300 MG TAB PO SCH (10:00)
[2022-04-06] MEDS ORDERED: NON-FORMULARY EACH (Elviteg/Cob/Emtri/Tenof Alafen [Genvoya Tablet] 1 EACH Tablet) PO SCH (10:00)
[2022-04-06] MEDS ORDERED: amLODIPine 5 MG TAB PO SCH ×2 (10:00)
[2022-04-06] MEDS ORDERED: PANTOPRAZOLE 40 MG TAB PO SCH (10:00)
[2022-04-06] MEDS ORDERED: POTASSIUM CHLORIDE ER 10 MEQ TAB PO SCH (10:00)
[2022-04-06] MEDS ORDERED: DOLUTEGRAVIR 50 MG TAB PO SCH (10:00)
[2022-04-06] MEDS: LOSARTAN 50 MG TAB PO SCH ×2 (10:12→10:17)
[2022-04-06] MEDS: NIFEdipine XL 30 MG TAB PO SCH ×2 (10:12→10:17)
--- NOTE | 2022-04-06 11:15 | Consultation ---
History of Present Illness Consult date: 04/06/22 Requesting physician: ESVIN TRAN Consult reason: chest pain History of present illness: Patient is 66-year-old female with a past medical history of HIV, hypertension, prior PE, seizure disorder, asthma/COPD, diabetes, who presents to the ED with a complaint of shortness of breath and chest pain x2 days. Patient reports she was in her usual state of health when she suddenly developed shortness of breath and sharp chest pain that was worse with inspiration and palpation. She reports has not had any specific relieving factors but does state that she feels betters. She does report that prior to coming to hospital she has been having fevers and chills. She also reports that several days before coming to hospital she was having nausea and a decreased appetite. Patient does report that she is also having productive cough over the last several days. She reports that she is chronically short of breath and chronically has dyspnea on exertion and states she is uses home oxygen. Patient denies palpitations, lightheadedness, diaphoresis or crushing/squeezing chest pain. Patient was previously seen by our practice during admission and February. Cardiology is consulted for chest pain. Past History Past Medical History: diabetes, hypertension, pulmonary embolism, seizures, other (See HPI) Past Surgical History: hysterectomy, Other (IVC filter placement) Social history: single Family history: diabetes, hypertension Medications and Allergies Allergies Allergy/AdvReac Type Severity Reaction Status Date / Time shellfish derived Allergy Severe Shortness Verified 03/15/22 10:09 of Breath ibuprofen [From Motrin] Allergy Mild Shortness Verified 03/15/22 10:09 of Breath aspirin Allergy Itching Verified 03/15/22 10:09 tetracycline Allergy Shortness Verified 03/15/22 10:09 of Breath Home Medications Medication Instructions Recorded Confirmed Last Taken Type ALBUTEROL NEB's [Proventil 0.083% 2.5 mg IH TID PRN #30 neb 01/23/20 03/15/22 Unknown Rx NEBS] Budesonide/Formoterol Fumarate 2 inhalation IH BID #1 hfa.aer.ad 01/23/20 03/15/22 Unknown Rx [Symbicort 160-4.5 Mcg Inhaler] Elviteg/Cob/Emtri/Tenof Alafen 1 each PO DAILY #30 tablet 01/23/20 03/15/22 Unknown Rx [Genvoya Tablet] Furosemide [Lasix TAB] 40 mg PO QAM #30 tablet 01/23/20 03/15/22 Unknown Rx Genvoya Tablet 1 tab PO DAILY #90 tab 01/23/20 03/15/22 Unknown Rx Insulin NPH/Regular [NovoLIN 70/30] 30 unit SUB-Q BIDDIAB #2 vial 01/23/20 03/15/22 Unknown Rx QUEtiapine [SEROquel] 200 mg PO QHS #90 tablet 01/23/20 03/15/22 Unknown Rx Tiotropium [place] [Spiriva 2 inhalation IH DAILY #1 mist.inhal 01/23/20 03/15/22 Unknown Rx Respimat] traMADoL [Ultram 50 MG tab] 50 mg PO Q6H PRN #14 tablet 01/23/20 03/15/22 Unknown Rx predniSONE [Deltasone] 20 mg PO DAILY #15 tablet 04/03/20 03/15/22 Unknown Rx Ondansetron [Zofran ODT TAB] 4 mg PO Q8HR PRN #14 tab.rapdis 04/17/21 03/15/22 Unknown Rx Famotidine [Pepcid] 20 mg PO BID #30 tablet 01/25/22 03/15/22 Unknown Rx Albuterol Mdi (or & Nicu Only) 2 puff IH Q4HR PRN #1 inhalation 03/18/22 Unknown Rx [ProAir HFA Inhaler] Benzonatate [Tessalon Perles] 100 mg PO Q8HR PRN #20 capsule 03/18/22 Unknown Rx Montelukast [Singulair] 10 mg PO QHS #30 tablet 03/18/22 Unknown Rx Pantoprazole [Protonix TAB] 40 mg PO QDAY #30 tablet 03/18/22 Unknown Rx Potassium Chloride [K-Dur] 10 meq PO QDAY #30 tablet 03/18/22 Unknown Rx amLODIPine 5 mg PO QDAY #30 tablet 03/18/22 Unknown Rx glipiZIDE [Glucotrol] 5 mg PO QDDIAB #60 tablet 03/18/22 Unknown Rx Active Meds: Active Medications Acetaminophen (Acetaminophen 325 Mg Tab) 650 mg PO Q4H PRN PRN Reason: Pain MILD(1-3)/Fever >100.5/MOYER Albuterol (Albuterol 2.5 Mg/3 Ml Nebu) 2.5 mg IH Q4HRT PRN PRN Reason: Shortness Of Breath Benzonatate (Benzonatate 100 Mg Cap) 100 mg PO Q8HR PRN PRN Reason: Cough Dolutegravir Sodium (Dolutegravir 50 Mg Tab) 50 mg PO DAILY [facility] Last Admin: 04/06/22 10:08 Dose: 50 mg Emtricitabine (Emtricitabine 200 Mg Cap) 200 mg PO DAILY [facility] Last Admin: 04/06/22 10:08 Dose: 200 mg Furosemide (Furosemide 40 Mg Tab) 40 mg PO QAM [facility] Last Admin: 04/06/22 09:26 Dose: 40 mg Hydromorphone HCl (Hydromorphone 0.5 Mg/0.5 Ml Inj) 0.5 mg IV Q23H PRN PRN Reason: Pain , Severe (7-10) Losartan Potassium (Losartan 50 Mg Tab) 50 mg PO QDAY [facility] Last Admin: 04/06/22 10:17 Dose: Not Given Montelukast Sodium (Montelukast 10 Mg Tab) 10 mg PO QHS [facility] Last Admin: 04/05/22 21:48 Dose: 10 mg Nifedipine (Nifedipine Xl 30 Mg Tab) 30 mg PO QDAY [facility] Last Admin: 04/06/22 10:17 Dose: Not Given Ondansetron HCl (Ondansetron 4 Mg/2 Ml Inj) 4 mg IV Q8H PRN PRN Reason: Nausea And Vomiting Last Admin: 04/05/22 21:49 Dose: 4 mg Oxycodone/Acetaminophen (Oxycodone /Acetaminophen 5-325mg Tab) 1 tab PO Q16H PRN PRN Reason: Pain, Moderate (4-6) Last Admin: 04/05/22 21:48 Dose: 1 tab Pantoprazole Sodium (Pantoprazole 40 Mg Tab) 40 mg PO QDAY [facility] Last Admin: 04/06/22 09:26 Dose: 40 mg Potassium Chloride (Potassium Chloride Er 10 Meq Tab) 10 meq PO QDAY [facility] Last Admin: 04/06/22 09:26 Dose: 10 meq Prednisone (Prednisone 20 Mg Tab) 20 mg PO DAILY [facility] Last Admin: 04/06/22 09:26 Dose: 20 mg Quetiapine Fumarate (Quetiapine 200 Mg Tab) 200 mg PO QHS [facility] Last Admin: 04/05/22 22:24 Dose: 200 mg Sodium Chloride (Sodium Chloride 0.9% 10 Ml Flush Syringe) 10 ml IV BID [facility] Last Admin: 04/06/22 09:28 Dose: 10 ml Sodium Chloride (Sodium Chloride 0.9% 10 Ml Flush Syringe) 10 ml IV PRN PRN PRN Reason: LINE FLUSH Tenofovir Disoproxil Fumarate (Tenofovir 300 Mg Tab) 300 mg PO DAILY [facility] Last Admin: 04/06/22 10:08 Dose: 300 mg Review of Systems Constitutional: fever, chills, poor appetite Ears, nose, mouth and throat: no sinus pressure, no sinus pain Cardiovascular: chest pain (Worse with palpation, described as sharp and stabbing), shortness of breath, dyspnea on exertion, no orthopnea, no palpitations, no edema Respiratory: cough with sputum, shortness of breath, dyspnea on exertion, pain on inspiration Gastrointestinal: nausea, loss of appetite Musculoskeletal: no neck stiffness, no neck pain Integumentary: no rash, no pruritis, no redness Neurological: no head injury, no transient paralysis, no lack of coordination Psychiatric: no anxiety, no memory loss Endocrine: no cold intolerance, no heat intolerance Physical Examination Vital Signs Temp Pulse Resp BP Pulse Ox 97.2 F L 110 H 18 126/90 98 04/05/22 05:16 04/05/22 05:16 04/05/22 05:16 04/05/22 05:16 04/05/22 05:16 General appearance: no acute distress HEENT: Positive: PERRL Neck: Positive: trachea midline Cardiac: Positive: Reg Rate and Rhythm Lungs: Positive: Wheezes Neuro: Positive: Grossly Intact Abdomen: Positive: Soft Skin: Negative: Rash, Suspicious Lesions, Ulceration Extremities: Present: upper extr. pulses. Absent: edema Results 04/05/22 06:05 04/05/22 06:05 - Imaging and Cardiology Echo: report reviewed EKG: report reviewed, image reviewed EKG interpretations - Telemetry EKG Rhythm: Sinus Rhythm - EKG Sinus rhythms and dysrhythmias: sinus rhythm Assessment and Plan Patient is 66-year-old female with a past medical history of HIV, hypertension, prior PE, seizure disorder, asthma/COPD, diabetes, who presents to the ED with a complaint of shortness of breath and chest pain x2 days. Atypical chest pain Asthma/COPD h/o Hypertension HIV Diabetes Seizure Bipolar disorder History of PE Echo 10/16/2019-EF 50 to 55%. Abnormal left ventricular diastolic filling is observed consistent with impaired relaxation. Trace aortic regurgitation. Trace mitral regurgitation. Trace tricuspid regurgitation Echo 03/16/2022- 55 to 60% borderline concentric LVH. Right ventricle is mildly dilated. Right ventricle systolic function is normal. No pericardial effusion Plan: EKG shows sinus rhythm 97 no acute ischemic changes. Troponins negative x3. AMI ruled out Patient's chest pain was atypical with pain described as sharp stabbing, worsened with inspiration and palpation. Patient appears euvolemic on exam with , no bilateral lower extremity edema, and negative CXR. Patient is not acutely in heart failure Patient has had normal echo Suspect shortness of breath and chest pain due to COPD/asthma exacerbation Due to active wheezing unable to perform ischemic eval at this time. No BB, BERTO/ARB due to hypotension No asa due to documented allergy Cardiac status otherwise stable. Will see as needed Patient seen in conjunction with Dr. Dyson who agrees with this plan of care - Patient Problems (1) HIV disease Current Visit: Yes Status: Acute (2) Obesity hypoventilation syndrome Current Visit: Yes Status: Acute (3) AIDS Current Visit: No Status: Acute (4) Acute exacerbation of COPD with asthma Current Visit: No Status: Acute (5) Diabetes Current Visit: No Status: Acute (6) Pleuritic chest pain Current Visit: No Status: Acute (7) Seizure disorder Current Visit: No Status: Acute (8) Wheezing Current Visit: No Status: Acute
--- NOTE | 2022-04-06 12:57 | Discharge Summary ---
Providers - Providers Date of Admission: 04/05/22 16:05 Date of discharge: 04/06/22 Attending physician: ESTIVEN UREÑA MD 04/05/22 14:36 Consult to Physician [CONS] Urgent Comment: Consulting Provider: JUNIOR DOMINGUEZ Physician Instructions: Reason For Exam: Chest pain Primary care physician: ANJELICA MIRAMONTES Hospitalization Reason for admission: Angina at rest Condition: Fair Pertinent studies: Reviewed. Procedures: None. Hospital course: The patient is a 66 YO Female with Obesity Hypoventilation Syndrome, Pulmonary HTN, CHF, HTN, PE not taking therapeutic anticoagulation, HIV Disease, DM, Seizure Disorder, Schizophrenia, Bipolar Disorder, Mild Intermittent Asthma, Spinal Stenosis presents to ED for evaluation. Patient reports "my chest hurts". Patient states that she has experienced chest pain over the past 3 days. Patient states that pain is intermittent but has become more frequent over the past 1 day and in sharp in nature, worseed with exertion, relieved with rest. Patient states that pain is 7/10, associateed with shortness of breath. EMS notified and upon arrival the patient was found to be in distress and transported to [facility] for further evaluation and care. Pt seen and evaluated in ED. lab and imaging studies reviewed. On reevaluation, the patient is found to be hemodynamically stable and saturating 99% on room air. Troponins were unremarkable x2. The patient had mild wheezing on physical exam. Nebulizer treatment has been ordered for clinical symptoms. Cardiology was consulted in the ED, and they believe no intervention is needed at this time as the patient is stable from a cardiac standpoint. The patient has been counseled at length about the importance of medication compliance in regards to her asthma medications. Patient is medically clear for discharge. Disposition: 01 HOME / SELF CARE / HOMELESS Final Discharge Diagnosis (Prints w/discharge instructions): Angina at rest, chronic diastolic heart failure, pulmonary hypertension, HIV, obesity hypoventilation syndrome, hypertension, schizophrenia, morbid obesity Time spent for discharge: 45 min Core Measure Documentation - Palliative Care Palliative Care/ Comfort Measures: Not Applicable - Core Measures Any of the following diagnoses?: history only Exam - Constitutional Vitals: Temp Pulse Resp BP Pulse Ox 98 F 79 18 107/60 99 04/05/22 18:20 04/06/22 10:27 04/06/22 10:28 04/06/22 10:17 04/06/22 10:28 General appearance: Present: no acute distress, well-nourished, obese, disheveled - EENT Eyes: Present: PERRL, EOM intact ENT: hearing intact, clear oral mucosa, dentition normal - Neck Neck: Present: supple, normal ROM - Respiratory Respiratory effort: normal Respiratory: bilateral: CTA - Cardiovascular Rhythm: regular Heart Sounds: Present: S1 & S2 - Extremities Extremities: no ischemia, pulses intact, pulses symmetrical, No edema, normal temperature, normal color Peripheral Pulses: within normal limits - Abdominal General gastrointestinal: Present: soft, non-tender, non-distended, normal bowel sounds Female genitourinary: Present: deferred - Rectal Rectal Exam: deferred - Integumentary Integumentary: Present: clear, warm, dry - Musculoskeletal Musculoskeletal: generalized weakness - Psychiatric Psychiatric: appropriate mood/affect, cooperative, other (Limited insight regarding her overall medical condition) - Neurologic Neurologic: CNII-XII intact, moves all extremities - Allied Health Allied health notes reviewed: nursing Plan Activity: no restrictions Diet: low salt Additional Instructions: The patient is a 66 YO Female with Obesity Hypoventilation Syndrome, Pulmonary HTN, CHF, HTN, PE not taking therapeutic anticoagulation, HIV Disease, DM, Seizure Disorder, Schizophrenia, Bipolar Disorder, Mild Intermittent Asthma, Spinal Stenosis presents to ED for evaluation. Patient reports "my chest hurts". Patient states that she has experienced chest pain over the past 3 days. Patient states that pain is intermittent but has become more frequent over the past 1 day and in sharp in nature, worseed with exertion, relieved with rest. Patient states that pain is 7/10, associateed with shortness of breath. EMS notified and upon arrival the patient was found to be in distress and transported to [facility] for further evaluation and care. Pt seen and evaluated in ED. lab and imaging studies reviewed. On reevaluation, the patient is found to be hemodynamically stable and saturating 99% on room air. Troponins were unremarkable x2. The patient had mild wheezing on physical exam. Nebulizer treatment has been ordered for clinical symptoms. Cardiology was consulted in the ED, and they believe no intervention is needed at this time as the patient is stable from a cardiac standpoint. The patient has been counseled at length about the importance of medication compliance in regards to her asthma medications. Patient is medically clear for discharge. Care Plan Goals: Patient is medically clear for discharge. Assessment: The patient is a 66 YO Female with Obesity Hypoventilation Syndrome, Pulmonary HTN, CHF, HTN, PE not taking therapeutic anticoagulation, HIV Disease, DM, Seizure Disorder, Schizophrenia, Bipolar Disorder, Mild Intermittent Asthma, Spinal Stenosis presents to ED for evaluation. Patient reports "my chest hurts". Patient states that she has experienced chest pain over the past 3 days. Patient states that pain is intermittent but has become more frequent over the past 1 day and in sharp in nature, worseed with exertion, relieved with rest. Patient states that pain is 7/10, associateed with shortness of breath. EMS notified and upon arrival the patient was found to be in distress and transported to [facility] for further evaluation and care. Pt seen and evaluated in ED. lab and imaging studies reviewed. On reevaluation, the patient is found to be hemodynamically stable and saturating 99% on room air. Troponins were unremarkable x2. The patient had mild wheezing on physical exam. Nebulizer treatment has been ordered for clinical symptoms. Cardiology was consulted in the ED, and they believe no intervention is needed at this time as the patient is stable from a cardiac standpoint. The patient has been counseled at length about the importance of medication compliance in regards to her asthma medications. Patient is medically clear for discharge. Follow up with: ANJELICA MIRAMONTES MD [Primary Care Provider] - 3-5 Days
[2022-04-06 15:03] LABS: BUN/Creatinine Ratio 18; Blood Urea Nitrogen 16 mg/dL (7-17); Hemolysis Index 15
--- NOTE | 2022-04-06 16:48 | Electrocardiograph Report ---
[facility] Test Date: 2022-04-06 Test Time: 07:36:53 Pat Name: SIRI JEAN Department: Room: A452 1 Gender: F Teaching Artist: DIANA : 1955 Requested By: ESVIN TRAN Order Number: [id number] Reading MD: Keenan Milner Measurements Intervals [place] Rate: 78 P: 54 NC: 138 QRS: 17 QRSD: 90 T: 45 QT: 389 QTc: 444 Interpretive Statements Sinus rhythm Compared to ECG 04/05/2022 05:35:28 No significant changes Electronically Signed On 04-06-2022 16:48:38 EDT by Keenan Milner
[2022-04-06 18:16] VITALS: BP 107/62
== END 2022-04-06 18:18 | disposition home or self-care (01) ==
LOC: ED 05:00 → INTOOBSV 16:05 → 4A 16:05 → UNDODISOB 04-06 17:22
PROVIDERS: ADMIT Internal Medicine; ATTEND Student in an Organized Health Care Education/Training Program
DX: I20.9 Angina pectoris, unspecified (principal); I11.0 Hypertensive heart disease with heart failure; I50.30 Unspecified diastolic (congestive) heart failure; I27.20 Pulmonary hypertension, unspecified; R10.12 Left upper quadrant pain; G40.909 Epilepsy, unspecified, not intractable, without status epilepticus; J44.9 Chronic obstructive pulmonary disease, unspecified; E66.2 Morbid (severe) obesity with alveolar hypoventilation; F20.9 Schizophrenia, unspecified; E11.9 Type 2 diabetes mellitus without complications; F31.9 Bipolar disorder, unspecified; Z90.710 Acquired absence of both cervix and uterus; Z79.899 Other long term (current) drug therapy; W19.XXXA Unspecified fall, initial encounter; Y93.89 Activity, other specified; Y92.89 Other specified places as the place of occurrence of the external cause
CPT/HCPCS: 36415; 71046; 74177; 80048; 80053; 82962; 84484; 85025; 93005; 94640; 96374; 96375; 96376; 99285; G0378; J2405; J3010; Q9967

== ENCOUNTER 2022-04-17 18:56 | Emergency (ER) | payer MEDICARE ==
[2022-04-17] MEDS ORDERED: ASPIRIN 325 MG TAB PO ONE (21:35)
--- NOTE | 2022-04-17 22:49 | XRay Report ---
CHEST 1 VIEW INDICATION / CLINICAL INFORMATION: CP, SOB. FINDINGS: SUPPORT DEVICES: None. HEART / MEDIASTINUM: No significant abnormality. LUNGS / PLEURA: No significant pulmonary or pleural abnormality. No pneumothorax. ADDITIONAL FINDINGS: No significant additional findings. IMPRESSION: 1. No acute findings. Signer Name: Art Calzada MD Signed: 04/17/2022 10:45 PM Workstation Name: [id number]
[2022-04-17 22:51] LABS: BUN/Creatinine Ratio 16; Blood Urea Nitrogen 13 mg/dL (7-17); Calcium 9.8 mg/dL (8.4-10.2)
[2022-04-17 22:52] LABS: Albumin 4.5 g/dL (3.9-5); Hemolysis Index 36
[2022-04-17 22:53] LABS: Alanine Aminotransferase < 5 units/L (7-56)
[2022-04-17 23:04] LABS: Basophils % (Auto) 0.6 % (0.0-1.8); Eosinophils # (Auto) 0.1 K/mm3 (0.0-0.4); Eosinophils % (Auto) 1.2 % (0.0-4.3); Hematocrit 39.9 % (30.3-42.9); Hemoglobin 13.2 gm/dl (10.1-14.3); Lymphocytes # (Auto) 2.8 K/mm3 (1.2-5.4); Lymphocytes % (Auto) 55.1 % (13.4-35.0); Mean Corpuscular HGB Conc 33 % (30-34); Mean Corpuscular Volume 105 fl (79-97); Monocytes # (Auto) 0.3 K/mm3 (0.0-0.8); Monocytes % (Auto) 5.9 % (0.0-7.3); Platelet Count 176 K/mm3 (140-440)
[2022-04-18] MEDS ORDERED: ALBUTEROL 2.5 MG/3 ML NEBU IH ONE (06:26)
[2022-04-18] MEDS ORDERED: IPRATROPIUM 0.02% NEBU 2.5 ML IH ONE (06:26)
[2022-04-18] MEDS ORDERED: ONDANSETRON 4 MG/2 ML INJ IV ONE (06:28)
[2022-04-18] MEDS ORDERED: methylPREDNISolone Sod Succinate 125 MG/2 ML INJ IV ONE (06:28)
[2022-04-18] MEDS ORDERED: fentaNYL 100 MCG/2 ML INJ IV ONE (06:28)
--- NOTE | 2022-04-18 06:31 | Emergency Department Report ---
HPI - General Chief Complaint: Chest Pain Time Seen by Provider: 04/18/22 06:19 - HPI HPI: Room 1 The patient is a 66-year-old female present with chief complaint of shortness of breath and lower abdominal pain. Patient states that symptoms began same time 3 days ago with sharp intermittent lower abdominal pain mid back pain. Patient admits to occasional nausea vomiting. Patient states for the past 2 days she has had an occasional cough productive of white sputum. Patient admits to subjectively feeling hot and cold. Patient currently gives her abdominal pain a score 7/10 ED Past Medical Hx - Past Medical History Previous Medical History?: Yes Hx Hypertension: Yes Hx Heart Attack/AMI: Yes Hx Congestive Heart Failure: Yes Hx Diabetes: Yes Hx Pulmonary Embolism: Yes Hx Seizures: Yes Hx Psychiatric Treatment: Yes (bipolar disorder; schziphornia) Hx Asthma: Yes Hx HIV: Yes (Uncertain of last CD4 count. On meds) Additional medical history: CDIFF, spinal stenosis - Surgical History Past Surgical History?: Yes Additional Surgical History: Hysterectomy, IVC filter - Family History Family history: no significant - Social History Smoking Status: Never Smoker Substance Use Type: None (Denies illicit drug use) - Medications Home Medications: Home Medications Medication Instructions Recorded Confirmed Last Taken Type ALBUTEROL NEB's [Proventil 0.083% 2.5 mg IH TID PRN #30 neb 01/23/20 03/15/22 Unknown Rx NEBS] Budesonide/Formoterol Fumarate 2 inhalation IH BID #1 hfa.aer.ad 01/23/20 03/15/22 Unknown Rx [Symbicort 160-4.5 Mcg Inhaler] Elviteg/Cob/Emtri/Tenof Alafen 1 each PO DAILY #30 tablet 01/23/20 03/15/22 Unknown Rx [Genvoya Tablet] Furosemide [Lasix TAB] 40 mg PO QAM #30 tablet 01/23/20 03/15/22 Unknown Rx Genvoya Tablet 1 tab PO DAILY #90 tab 01/23/20 03/15/22 Unknown Rx Insulin NPH/Regular [NovoLIN 70/30] 30 unit SUB-Q BIDDIAB #2 vial 01/23/20 03/15/22 Unknown Rx QUEtiapine [SEROquel] 200 mg PO QHS #90 tablet 01/23/20 03/15/22 Unknown Rx Tiotropium [place] [Spiriva 2 inhalation IH DAILY #1 mist.inhal 01/23/20 03/15/22 Unknown Rx Respimat] traMADoL [Ultram 50 MG tab] 50 mg PO Q6H PRN #14 tablet 01/23/20 03/15/22 Unknown Rx predniSONE [Deltasone] 20 mg PO DAILY #15 tablet 04/03/20 03/15/22 Unknown Rx Ondansetron [Zofran ODT TAB] 4 mg PO Q8HR PRN #14 tab.rapdis 04/17/21 03/15/22 Unknown Rx Famotidine [Pepcid] 20 mg PO BID #30 tablet 01/25/22 03/15/22 Unknown Rx Albuterol Mdi (or & Nicu Only) 2 puff IH Q4HR PRN #1 inhalation 03/18/22 Unknown Rx [ProAir HFA Inhaler] Benzonatate [Tessalon Perles] 100 mg PO Q8HR PRN #20 capsule 03/18/22 Unknown Rx Montelukast [Singulair] 10 mg PO QHS #30 tablet 03/18/22 Unknown Rx Pantoprazole [Protonix TAB] 40 mg PO QDAY #30 tablet 03/18/22 Unknown Rx Potassium Chloride [K-Dur] 10 meq PO QDAY #30 tablet 03/18/22 Unknown Rx amLODIPine 5 mg PO QDAY #30 tablet 03/18/22 Unknown Rx glipiZIDE [Glucotrol] 5 mg PO QDDIAB #60 tablet 03/18/22 Unknown Rx Albuterol Mdi (or & Nicu Only) 2 puff IH QID PRN #8.5 gram 04/18/22 Unknown Rx [ProAir HFA Inhaler] Prednisone [predniSONE 10 mg 10 mg PO .TAPER #1 04/18/22 Unknown Rx (6-Day Pack, 21 Tabs)] levoFLOXacin [Levaquin TAB] 500 mg PO QDAY #7 tablet 04/18/22 Unknown Rx traMADoL [Ultram] 50 mg PO Q6HR PRN #10 tablet 04/18/22 Unknown Rx ED Review of Systems ROS: Stated complaint: CHEST PAIN Other details as noted in HPI Constitutional: fever (Subjective) Eyes: denies: eye pain ENT: denies: throat pain Respiratory: cough, shortness of breath Cardiovascular: denies: chest pain Endocrine: no symptoms reported Gastrointestinal: abdominal pain, nausea, vomiting Genitourinary: denies: dysuria Musculoskeletal: back pain Neurological: denies: headache Physical Exam - Physical Exam Vital Signs: Vital Signs 04/17/22 04/18/22 21:30 06:22 Temperature 98.1 F Pulse Rate 110 H 90 Respiratory 20 15 Rate Blood Pressure 128/85 131/81 [Right] O2 Sat by Pulse 99 100 Oximetry Physical Exam: GENERAL: The patient is well-developed well-nourished female lying on stretcher not appearing to be in acute distress. [] HEENT: Normocephalic. Atraumatic. Extraocular motions are intact. Patient has moist mucous membranes. NECK: Supple. Trachea midline CHEST/LUNGS: Occasional end expiratory wheezing. There is no respiratory distress noted. HEART/CARDIOVASCULAR: Regular. There is no tachycardia. There is no gallop rub or murmur. ABDOMEN: Abdomen is soft, with mild discomfort to palpation along the lower abdomen and midepigastric region. There is no rebound or guarding. Patient has normal bowel sounds. There is no abdominal distention. SKIN: There is no rash. There is no edema. There is no diaphoresis. NEURO: The patient is awake, alert, and oriented. The patient is cooperative. The patient has no focal neurologic deficits. The patient has normal speech. GCS 15 MUSCULOSKELETAL: There is no evidence of acute injury. ED Course Vital Signs 04/17/22 04/18/22 21:30 06:22 Temperature 98.1 F Pulse Rate 110 H 90 Respiratory 20 15 Rate Blood Pressure 128/85 131/81 [Right] O2 Sat by Pulse 99 100 Oximetry ED Medical Decision Making - Lab Data Result diagrams: 04/17/22 21:59 04/17/22 21:59 Laboratory Tests 04/17/22 04/17/22 04/18/22 21:59 21:59 02:01 WBC 5.0 RBC 3.80 Hgb 13.2 Hct 39.9 MCV 105 H MCH 35 H MCHC 33 RDW 14.0 Plt Count 176 Lymph % (Auto) 55.1 H [place] % (Auto) 5.9 Eos % (Auto) 1.2 Baso % (Auto) 0.6 Lymph # (Auto) 2.8 [place] # (Auto) 0.3 Eos # (Auto) 0.1 Baso # (Auto) 0.0 Seg Neutrophils % 37.2 L Seg Neutrophils # 1.9 Sodium 138 Potassium 4.8 Chloride 105.7 Carbon Dioxide 18 L Anion Gap 19 BUN 13 Creatinine 0.8 Estimated GFR > 60 BUN/Creatinine Ratio 16 Glucose 146 H Calcium 9.8 Total Bilirubin 0.20 AST 11 ALT < 5 L Alkaline Phosphatase 131 H Troponin T < 0.010 < 0.010 Total Protein 7.9 Albumin 4.5 Albumin/Globulin Ratio 1.3 Urine Color Urine Turbidity Specific [place] (Man) Ur Protein (Man) Ur Ketones (Man) Ur Nitrite (Man) Ur Reducing Substances Urine Bilirubin (Man) Urine Ictotest Leukocyte Esterase (Man) Urine WBC (Auto) Urine RBC (Auto) U Epithel Cells (Auto) Urine Bacteria (Auto) Urine RBC (Manual) Hyaline Casts Urine Mucus 04/18/22 04/18/22 05:32 07:11 WBC RBC Hgb Hct MCV MCH MCHC RDW Plt Count Lymph % (Auto) [place] % (Auto) Eos % (Auto) Baso % (Auto) Lymph # (Auto) [place] # (Auto) Eos # (Auto) Baso # (Auto) Seg Neutrophils % Seg Neutrophils # Sodium Potassium Chloride Carbon Dioxide Anion Gap BUN Creatinine Estimated GFR BUN/Creatinine Ratio Glucose Calcium Total Bilirubin AST ALT Alkaline Phosphatase Troponin T < 0.010 Total Protein Albumin Albumin/Globulin Ratio Urine Color Straw Urine Turbidity Hazy Specific [place] (Man) 1.030 Ur Protein (Man) 1+ Ur Ketones (Man) Negative Ur Nitrite (Man) Negative Ur Reducing Substances Not Reportable Urine Bilirubin (Man) Negative Urine Ictotest Not Reportable Leukocyte Esterase (Man) Negative Urine WBC (Auto) 15.0 H Urine RBC (Auto) 10.0 U Epithel Cells (Auto) 6.0 Urine Bacteria (Auto) 1+ Urine RBC (Manual) Negative Hyaline Casts 7 Urine Mucus 3+ - EKG Data -: EKG Interpreted by Me EKG shows normal: sinus rhythm Rate: normal - EKG Data When compared to previous EKG there are: no significant change Interpretation: unchanged when compared t (04/06/2022) - Radiology Data Radiology results: report reviewed (Chest x-ray), image reviewed (Chest x-ray) interpreted by me: Chest x-ray-no definite focal infiltrates, no pneumothorax [facility] [address] [place] [address] XRay Report Signed Patient: SIRI JEAN MR# : [id number] : 1955 Acct:[id number] Age/Sex: 66 / F ADM Date: 04/17/22 Loc: ED Attending Dr: Ordering Physician: LORENZO JEFFRYE MD Date of Service: 04/17/22 Procedure(s): XR chest 1V ap Accession Number(s): [id number] cc: ED MD RACHELE Fluoro Time In Minutes: CHEST 1 VIEW INDICATION / CLINICAL INFORMATION: CP, SOB. FINDINGS: SUPPORT DEVICES: None. HEART / MEDIASTINUM: No significant abnormality. LUNGS / PLEURA: No significant pulmonary or pleural abnormality. No pneumothorax. ADDITIONAL FINDINGS: No significant additional findings. IMPRESSION: 1. No acute findings. Signer Name: Art Calzada MD Signed: 04/17/2022 10:45 PM Workstation Name: [id number] Transcribed By: BC Dictated By: Art Calzada MD Electronically Authenticated By: Art Calzada MD Signed Date/Time: 04/17/222244 DD/ 43 TD/TT: - Differential Diagnosis UTI, asthma exacerbation, bronchitis, pneumonia, ACS Critical care attestation.: If time is entered above; I have spent that time in minutes in the direct care of this critically ill patient, excluding procedure time. ED Disposition Clinical Impression: COPD exacerbation, UTI (urinary tract infection) Disposition: 01 HOME / SELF CARE / HOMELESS Is pt being admited?: No Does the pt Need Aspirin: No Condition: Stable Instructions: Chronic Obstructive Pulmonary Disease (ED), Asthma, Adult Additional Instructions: Return to the emergency department should you develop worsening symptoms, inability to tolerate food or liquids, high fever or any other concerns Prescriptions: levoFLOXacin [Levaquin TAB] 500 mg PO QDAY #7 tablet Prednisone [predniSONE 10 mg (6-Day Pack, 21 Tabs)] 10 mg PO .TAPER #1 Albuterol Mdi (or & Nicu Only) [ProAir HFA Inhaler] 2 puff IH QID PRN #8.5 gram PRN Reason: Shortness Of Breath traMADoL [Ultram] 50 mg PO Q6HR PRN #10 tablet PRN Reason: Pain Referrals: [facility] [Provider Group] - 3-5 Days Time of Disposition: 08:57
[2022-04-18] MEDS ORDERED: fentaNYL 100 MCG/2 ML INJ IM ONE (07:12)
[2022-04-18] MEDS ORDERED: ONDANSETRON 4 MG/2 ML INJ IM ONE (07:13)
[2022-04-18] MEDS ORDERED: methylPREDNISolone Sod Succinate 125 MG/2 ML INJ IM ONE (07:14)
[2022-04-18 07:58] LABS: Bacteria,Urine 1+ /HPF (Negative); Hyaline Casts,Urine 7 /LPF; Mucus,Urine 3+ /HPF
[2022-04-18 08:05] LABS: Color,Urine Straw (Yellow)
[2022-04-18] MEDS ORDERED: levoFLOXacin 500 MG TAB PO ONE (08:15)
[2022-04-18 09:17] VITALS: BP 130/72
--- NOTE | 2022-04-18 09:17 | Electrocardiograph Report ---
[facility] Test Date: 2022-04-17 Test Time: 20:00:14 Pat Name: SIRI JEAN Department: Room: Gender: F [employer]er: : 1955 Requested By: ESVIN TRAN Order Number: [id number] Reading MD: Jaden Cheatham Measurements Intervals Olivia Rate: 88 P: 27 IN: 134 QRS: -6 QRSD: 89 T: 38 QT: 371 QTc: 450 Interpretive Statements Sinus rhythm Compared to ECG 04/06/2022 07:36:53 No significant changes Electronically Signed On 04-18-2022 9:17:35 EDT by Jaden Cheatham
== END 2022-04-18 13:04 | disposition home or self-care (01) ==
LOC: ED 18:56
DX: J44.1 Chronic obstructive pulmonary disease with (acute) exacerbation (principal); N39.0 Urinary tract infection, site not specified; I11.0 Hypertensive heart disease with heart failure; I50.9 Heart failure, unspecified; I21.9 Acute myocardial infarction, unspecified; E11.9 Type 2 diabetes mellitus without complications; I26.99 Other pulmonary embolism without acute cor pulmonale; R56.9 Unspecified convulsions; J45.909 Unspecified asthma, uncomplicated; Z21 Asymptomatic human immunodeficiency virus [HIV] infection status; F31.9 Bipolar disorder, unspecified
CPT/HCPCS: 36415; 71045; 80053; 81001; 84484; 85025; 87086; 93005; 94640; 96372; 99284; J2405; J2930; J3010; 94644